=== PATIENT | female | born 2000 | race Caucasian/White ===

== ENCOUNTER 2023-02-02 15:13 | Outpatient (OUT) | payer OTHER, BC, SELFPAY ==
[2023-02-02 13:38] LABS: Glucose 92 mg/dL (74-106)
[2023-02-03 08:13] LABS: HIV Ab/p24 Ag Screen Non Reactive (Non Reactive)
[2023-02-03 09:12] LABS: HBsAg Screen Negative (Negative); HCV Antibody Non Reactive (Non Reactive); Hep B Core Ab, IgM Negative (Negative)
[2023-02-03 10:08] LABS: Rapid Plasma Reagin, Quant Non Reactive (NonRea<1:1)
[2023-02-04 12:07] LABS: Insulin 13.8 uIU/mL (2.6-24.9)
== END 2023-02-02 15:14 | disposition home or self-care (01) ==
LOC: LAB 02-12 15:13
PROVIDERS: PCP Family Medicine
DX: N92.0 Excessive and frequent menstruation with regular cycle (principal); E03.9 Hypothyroidism, unspecified; E55.9 Vitamin D deficiency, unspecified; Z11.9 Encounter for screening for infectious and parasitic diseases, unspecified
CPT/HCPCS: 36415; 82306; 82947; 83525; 84443; 86592; 86706; 86803; 87389

== ENCOUNTER 2023-02-22 00:46 | Emergency (ER) | payer OTHER, BC, SELFPAY ==
[2023-02-22 00:48] VITALS: BP 170/102; PULSE 109; RESP 22; TEMP 37.2; O2SAT 98; BMI 32.0
--- NOTE | 2023-02-22 00:57 | PC.NURSE ---
pt presents to ED c/o dry, hacking cough for the last 3 days. [place] and every year when they spray it she gets a bad cough and usually has to be put on steroids. has tried otc nyquil, dayquil, and mucinex with no relief. denies any other s/s
--- NOTE | 2023-02-22 01:18 | ED_ITS ---
HPI - URI/Sore Throat General Chief Complaint: Upper Respiratory Infection Stated Complaint: COUGH Time Seen by Provider: 02/22/23 01:18 Source: patient Limitations: no limitations History of Present Illness HPI Narrative: 22-year-old female, nonsmoker, who is not on control presents for evaluation of a nonproductive cough for the past 4-5 days. [place] [facility] and when they sprayed the [place] she gets this cough every year. It is nonproductive. She has not slept for the past 4 nights because of the cough. She has not had a fever. She denies any chest pain. She denies any dizziness or syncope. She has no lower extremity pain or swelling. She states that she typically gets steroids for this cough. She denies the possibility of because she has to do IVF to potentially get . She has no abdominal pain, no back pain. She has been using multiple [id number] cough and cold medications without clinical improvement. Related Data Home Medications Medication Instructions Recorded Confirmed metformin 500 mg tablet 2,000 mg PO DAILY 02/22/23 02/22/23 Allergies Allergy/AdvReac Type Severity Reaction Status Date / Time No Known Drug Allergies Allergy Verified 02/22/23 00:53 Review of Systems ROS Status of ROS 10 or more systems reviewed and unremarkable except as noted in history and below [facility] Social History Smoking status: Never smoker Exam Narrative Exam Narrative: Nurses note and vital signs reviewed and patient is not hypoxic. Her blood pressure is elevated at triage at 170/102 and she is tachycardic at 109. It was noted that she was coughing her blood pressure was being taken. General: Nontoxic female resting currently on the stretcher, she has episodes of bronchospastic coughing Skin: Warm, dry, no pallor noted. There is no rash noted. Head: Normocephalic, atraumatic Eye: Normal conjunctiva, no drainage, EOMI. PERRL Ears, Nose, Mouth, and Throat: oral mucosa is Mildly dry, no pharyngeal erythema or exudate noted Cardiovascular: Regular Rate and Rhythm, Tachycardic at triage at 109, no murmurs rubs or gallops Respiratory: Lungs are clear, patient can only speak 2-3 words without having a coughing jag, no respiratory distress besides coughing, no wheezing rhonchi or rales appreciated, no accessory muscle use Back: non-tender, no CVA tenderness bilaterally to percussion. GI: Normal bowel sounds, no tenderness to palpation, no masses appreciated. No rebound, guarding, or rigidity noted. Musculoskeletal: The patient has no evidence of calf tenderness, no pitting edema, symmetrical pulses noted bilaterally Neurological: A&O x4, normal speech Psychiatric: Cooperative Constitutional Vital Signs, click to edit/add: Last Vital Signs Temp 99 F 02/22/23 00:48 Pulse 109 H 02/22/23 00:48 Resp 22 02/22/23 00:48 BP 170/102 H 02/22/23 00:48 Pulse Ox 98 02/22/23 00:48 O2 Del Method Room Air 02/22/23 00:48 Course Vital Signs Vital signs: Vital Signs Temperature 99 F 02/22/23 00:48 Pulse Rate 109 H 02/22/23 00:48 Respiratory Rate 22 02/22/23 00:48 Blood Pressure 170/102 H 02/22/23 00:48 Pulse Oximetry 98 02/22/23 00:48 Oxygen Delivery Method Room Air 02/22/23 00:48 Temperature 99 F 02/22/23 00:48 Pulse Rate 109 H 02/22/23 00:48 Respiratory Rate 22 02/22/23 00:48 Blood Pressure 170/102 H 02/22/23 00:48 Pulse Oximetry 98 02/22/23 00:48 Oxygen Delivery Method Room Air 02/22/23 00:48 MDM - URI/Sore Throat MDM Narrative Medical decision making narrative: Patient presents for evaluation of a cough likely related to the fact that she lives [place] [facility]. She states that every year when the [employer] [place] she gets a bad cough. She has not had a fever. She denies any chest pain. She states she has not slept for the past 4 days because she cannot stop coughing. She was given a dose of Solu-Medrol in the emergency department and a Zofran and will be given a Vicodin to take home to help her rest tonight. Her lungs are otherwise clear. She has no lower 70 pain or swelling and she has no chest pain. She does not smoke and she is not on control. She'll be discharged home with a prescription for Vicodin to use for the next several nights and a Medrol Dosepak. She was encouraged to drink plenty of fluids and return to emergency department for worsening symptoms or any concerns. Discharge Plan Discharge Chief Complaint: Upper Respiratory Infection Clinical Impression: Reactive airway disease with acute exacerbation Patient Disposition: Home, Self-Care Time of Disposition Decision: 01:21 Condition: Good Prescriptions / Home Meds: No Action metformin 500 mg tablet 2,000 mg PO DAILY Instructions: Reactive Airways Disease (ED) Stand Alone Forms: Portal Instructions Referrals: Kayce Pham MD [Primary Care Provider] - 1 week
[2023-02-22] MEDS: ONDANSETRON 4 MG RAPDIS TABLET SL (01:34)
[2023-02-22] MEDS: METHYLPREDNISOLONE SOD SUCC PF 125 MG/2 ML VIAL IM (01:34)
[2023-02-22 01:42] VITALS: BP 167/105; PULSE 91; O2SAT 97
== END 2023-02-22 01:44 | disposition home or self-care (01) ==
PROVIDERS: Emergency Provider Emergency Medicine; PCP Family Medicine
DX: J45.901 Unspecified asthma with (acute) exacerbation (principal)
CPT/HCPCS: 96372; 99284; J2930

== ENCOUNTER 2023-07-10 10:29 | Outpatient (OUT) | payer OTHER, BC, SELFPAY ==
[2023-07-10 13:12] LABS: Glucose 87 mg/dL (74-106); Thyroid Stimulating Hormone 1.525 uIU/mL (0.358-3.740)
[2023-07-11 04:10] LABS: Estradiol 49.4 pg/mL (.); FSH 6.6 mIU/mL (.); Prolactin 13.1 ng/mL (4.8-23.3); Testosterone 30 ng/dL (13-71)
[2023-07-11 05:10] LABS: Insulin 11.3 uIU/mL (2.6-24.9)
[2023-07-13 13:08] LABS: Anti-Mullerian Hormone (AMH) 5.47 ng/mL (.)
== END 2023-07-10 10:30 | disposition home or self-care (01) ==
LOC: LAB 10:33
PROVIDERS: PCP Family Medicine
DX: N92.0 Excessive and frequent menstruation with regular cycle (principal); E03.9 Hypothyroidism, unspecified; E55.9 Vitamin D deficiency, unspecified
CPT/HCPCS: 36415; 82306; 82397; 82670; 82947; 83001; 83525; 84146; 84403; 84443

== ENCOUNTER 2024-03-02 11:13 | Outpatient (OUT) | payer OTHER, BC, SELFPAY ==
[2024-03-02 12:33] LABS: HCG Quantitative 17632 mIU/mL
[2024-03-03 04:10] LABS: Progesterone 12.8 ng/mL (.)
== END 2024-03-02 11:14 | disposition home or self-care (01) ==
LOC: LAB 11:20
PROVIDERS: PCP Family Medicine
DX: O09.01 Supervision of pregnancy with history of infertility, first trimester (principal)
CPT/HCPCS: 36415; 84144; 84702

== ENCOUNTER 2024-03-27 09:24 | Outpatient (OUT) | payer OTHER, BC, SELFPAY ==
--- NOTE | 2024-03-27 09:25 | US_ITS ---
[address] [address] Patient Name: ANNA MARIO MRN: [id number] date: 2000 Sex: F Assigned Patient Location: [facility] Current Patient Location: Accession/Order Number: [id number] Exam Date: 03/27/2024 09:26 Report Date: 03/31/2024 04:16 At the request of: LUIS DOTY Procedure: US OB transvaginal EXAMINATION: US OB transvaginal HISTORY: Missed menses COMPARISON: No relevant comparison available. FINDINGS: GESTATIONAL SAC: Present and normal appearing. YOLK SAC: Present and normal appearing. POLE: Present and normal appearing. CARDIAC: Present. UTERUS: Normal size and appearance. OVARIES: Right: Normal. Left: Not seen. CERVIX: 3.3 cm in length and closed. CUL-DE-SAC: Normal. OTHER: None. AGE BY LMP: 10 weeks 1 day SARA BY LMP: 10/22/2024 AGE BY US CRL: 10 weeks 0 days SARA BY US CRL: 10/23/2024 US/US OB transvaginal IMPRESSION: 1. Single live intrauterine . Electronically authenticated by: LUCHO PADRON Date: 03/31/2024 04:16
--- OUTSIDE RECORDS SUMMARY | 2024-03-27 09:28 | XMS_ITS | CCD ---
Author Organization [facility] Care Team Providers Care Lithographic Photographer Name Role Phone LALITHA ., DR SMITH Admitting Unavailable LALITHA ., DR SMITH Attending Unavailable GRANT, DR AKILA Watson Primary Care Unavailable LALITHA ., DR SMITH Consulting Unavailable LALITHA ., DR SMITH Admitting Unavailable LALITHA ., DR SMITH Attending Unavailable RUDY, DR AKILA Watson Primary Care Unavailable ZULEIMA, DR CLEMENTINE Mayo Consulting Unavailable LALITHA ., DR SMITH Consulting Unavailable LALITHA ., DR SMITH Admitting Unavailable LALITHA ., DR SMITH Attending Unavailable LALITHA ., DR SMITH Consulting Unavailable RUDY, DR AKILA Watson Primary Care Unavailable NEREIDA, DR LUCHO Johnson Consulting Unavailable LALITHA ., DR SMITH Admitting Unavailable LALITHA ., DR SMITH Attending Unavailable LALITHA ., DR SMITH Consulting Unavailable GRANT, DR AKILA Watson Primary Care Unavailable LALITHA ., DR SMITH Admitting Unavailable LALITHA ., DR SMITH Attending Unavailable ZULEIMA, DR CLEMENTINE Mayo Consulting Unavailable RUDY, DR AKILA Watson Primary Care Unavailable LALITHA ., DR SMITH Consulting Unavailable LALITHA ., DR SMITH Admitting Unavailable LALITHA ., DR SMITH Attending Unavailable RUDY, DR AKILA Watson Primary Care Unavailable LALITHA ., DR SMITH Consulting Unavailable LALITHA ., DR SMITH Admitting Unavailable LALITHA ., DR SMITH Attending Unavailable GRANT, DR AKILA Watson Primary Care Unavailable LALITHA ., DR SMITH Consulting Unavailable LALITHA, LUIS Attending Unavailable JOHNNY FERNANDEZ Attending Unavailable Allergies Allergy Classification Reported Allergen(s) Allergy Type Date of Onset Reaction(s) Facility (2 sources) Latex Drug allergy (disorder) 08-23-2019 [facility] Repository (1 source) orange flavor Drug allergy (disorder) 08-23-2019 [facility] (1 source) Hurley - fruit 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 01-02-2024 anaphylaxis [facility] Medications Current Medications Medication Drug Class(es) Dates Sig (Normalized) Sig (Original) amoxicillin 875 mg / clavulanate 125 mg oral tablet (1 source) Penicillin-class Antibacterial Start: 01-02-2024 take 1 tablet by mouth twice daily Amoxicillin-Pot Clavulanate Active 1 TAB PO Twice daily 20 10 January 02, 2024 12:00am estradiol 2 mg oral tablet (1 source) Estrogen Start: 01-02-2024 take 2 mg by mouth once daily Estradiol Active 2 MG PO Daily January 02, 2024 12:00am labetalol hydrochloride 200 mg oral tablet (2 sources) beta-Adrenergic Kyle Start: 01-02-2024 take 100 mg by mouth twice daily Labetalol Active 100 MG PO Twice daily January 02, 2024 12:00am Start: 01-02-2024 take 200 mg by mouth once simon y Labetalol Active 200 MG PO Daily January 02, 2024 12:00am letrozole 2.5 mg oral tablet (1 source) Aromatase Inhibitor Start: 01-02-2024 take 2.5 mg by mouth once daily Letrozole Active 2.5 MG PO Daily January 02, 2024 12:00am norethindrone acetate 5 mg oral tablet (1 source) Start: 01-02-2024 take 5 mg by mouth once daily Norethindrone Acetate Active 5 MG PO Daily January 02, 2024 12:00am predniSONE 10 mg oral tablet (1 source) Start: 01-02-2024 take 10 mg by mouth twice daily Prednisone Active 10 MG PO Twice daily January 02, 2024 12:00am Progesterone (1 source) Progesterone Start: 01-02-2024 Progesterone Micronized Active 200 MG VAGINAL Daily January 02, 2024 12:00am QUEtiapine 50 mg oral tablet (1 source) Atypical Antipsychotic Start: 01-02-2024 take 50 mg by mouth once daily Quetiapine Active 50 MG PO Daily January 02, 2024 12:00am Problems Active Problems Problem Classification Problem Date Documented Da te Episodic/Chronic Female infertility (4 sources) Female infertility associated with anovulation; Translations: [FE INFERTILITY ASSOC W/ANOVULATION] Onset: 07-12-2022 Chronic Other endocrine disorders (4 sources) Polycystic ovarian syndrome; Translations: [POLYCYSTIC OVARIAN SYNDROME] Onset: 04-04-2022 Chronic Thyroid disorders (1 source) Nontoxic single thyroid nodule; Translations: [NONTOXIC SINGLE THYROID NODULE] Onset: 04-08-2022 Chronic Past or Other Problems Problem Classification Problem Date Documented Da te Episodic/Chronic Contraceptive and procreative management (4 sources) Encounter for other procreative management; Translations: [ENC OTHER PROCREATIVE MANAGEMENT] Onset: 07-26-2022 Episodic Ovarian cyst (4 sources) Other ovarian cyst, left side; Translations: [OTHER OVARIAN CYST LEFT SIDE] Onset: 05-17-2022 Episodic Results Test Name Value Interpretation Reference Range Facility PROGESTERONEon 07-27-2022 Progesterone 26.9 ng/mL Normal [facility] Comment on above: Result Comment: Foll icular phase 0.1 - 0.9 Luteal phase 1.8 - 23.9 Ovulation phase 0.1 - 12.0 First trimester 11.0 - 44.3 Second trimester 25.4 - 83.3 Third trimester 58.7 - 214.0 Postmenopausal 0.0 - 0.1 Performed By: #### P ROGES #### [facility] [address] [address] [address] Ryan Francisco PREG QUANT HCGon 07-12-2022 HCG QUANT <1 Normal [facility] Comment on above: Performed By: #### P REGQNT #### [facility] [address] [address] [address] Ryan Francsico HCG RANGE SEE BELOW Normal [facility] Comment on above: Result Comment: 5-50 0.2-1 WEEK 50-500 1-2 WEEKS 100-5,000 2-3 WEEKS 500-10,000 3-4 WEEKS 1,000-50,000 4-5 WEEKS 10,000-100,000 5-6 WEEKS 15,000-200,000 6-8 WEEKS 10,000-100,000 2-3 MONTHS Performed By: #### P REGQNT #### [facility] [address] [address] [address] Ryan Francisco XR HYSTEROSALPINGO EXPon XR HYSTEROSALPINGO EXP EXAMINATION: XR HYSTEROSALPINGO EXP HISTORY: Female infertility associated with anovulation COMPARISON: No relevant comparison available. TECHNIQUE: Informed consent was obtained. A sterile vaginal speculum was introduced and, following cleansing of the cervix, a balloon-tipped catheter was inserted into the endometrial cavity. The procedure was then completed in the usual manner with water-soluble contrast. Standard level fluoroscopic mode of operation utilized. FINDINGS: FALLOPIAN TUBES: Patent fallopian tubes bilaterally. ENDOMETRIAL CAVITY: No scarring, filling defects, or dilatation. OTHER: Negative. IMPRESSION: Normal exam Electronically authenticated by: CLEMENTINE DEWEY Date: 2022-07-12 12:34 Normal [facility] PROGESTERONEon 06-29-2022 Progesterone 4.6 ng/mL Normal [facility] Comment on above: Result Comment: Foll icular phase 0.1 - 0.9 Luteal phase 1.8 - 23.9 Ovulation phase 0.1 - 12.0 First trimester 11.0 - 44.3 Second trimester 25.4 - 83.3 Third trimester 58.7 - 214.0 Postmenopausal 0.0 - 0.1 Performed By: #### P BRETT #### [facility] [address] [place] [address] Dr. Ryan Francisco PROGESTERONEon 06-01-2022 Progesterone 18.9 ng/mL Normal [facility] Comment on above: Result Comment: Foll icular phase 0.1 - 0.9 Luteal phase 1.8 - 23.9 Ovulation phase 0.1 - 12.0 First trimester 11.0 - 44.3 Second trimester 25.4 - 83.3 Third trimester 58.7 - 214.0 Postmenopausal 0.0 - 0.1 Performed By: #### P BRETT #### [facility] [address] [place] [address] Dr. Ryna Francisco US PELVIS AND TRANSVAGon US PELVIS AND TRANSVAG EXAMINATION: US PELVIS AND TRANSVAG HISTORY: Cyst of left ovary COMPARISON: No relevant comparison available. FINDINGS: The uterus is normal in size, contour and echotexture measuring 7.9 x 4.5 x 3.4 cm. No focal myometrial mass. Anteverted. Endometrium measures 7 mm, normal The right ovary measures 4.3 x 3.0 x 2.6 cm. Normal color and Doppler flow. Multiple follicles measuring up to 1.3 cm The left ovary measures 3.8 x 2.7 x 1.8 cm. Normal color and Doppler flow. Multiple follicles measuring up to 1.0 cm IMPRESSION: Multiple bilateral ovarian follicles, consider polycystic ovarian syndrome Electronically authenticated by: CLEMENTINE DEWEY Date: 2022-05-17 17:25 Normal [facility] PROGESTERONEon 04-29-2022 Progesterone 5.1 ng/mL Normal [facility] Comment on above: Result Comment: Foll icular phase 0.1 - 0.9 Luteal phase 1.8 - 23.9 Ovulation phase 0.1 - 12.0 First trimester 11.0 - 44.3 Second trimester 25.4 - 83.3 Third trimester 58.7 - 214.0 Postmenopausal 0.0 - 0.1 Performed By: #### P BRETT ####[facility] [id number] [place], [place] [address]Mw. Ryan Francisco ANTI-MULLERIAN HORMONEon Anti-Mullerian Hormone (AMH) 6.09 ng/mL Normal [facility] Comment on above: Result Comment: For assays employing antibodies, the possibility exists for interference by heterophile antibodies in the samples.1 1.Steffen Peguero. Interferences in Immunoassays - still a threat. Clin. Chem. 2000; 46: 4190-8517. This test was developed and its performance characteristics determined by [employer]. It has not been cleared or approved by the Food and Drug Administration. Reference Range: Females 20 - 25y: 1.23 - 11.51 Median 4.70 AMH concentrations of >= 1.06 ng/mL is correlated with a better response to ovarian stimulation, produced more retrievable oocytes and higher odds of live according to Herber et al. Fertility and Sterility. 2010: 94:3614-7767. The current AMH test method correlates with the study method with a slope of 0.94. Females at risk of ovarian hyperstimulation syndrome or polycystic ovarian syndrome (PCOS) may exhibit elevated serum AMH concentrations. AMH levels from PCOS patients may be 2 to 5 fold higher than age-appropriate reference interval values. Granulosa cell tumors of the ovary may secrete AMH along with other tumor markers. Elevated AMH is not specific for malignancy, and the assay should not be used exclusively to diagnose or exclude an AMH-secreting ovarian tumor. Performed By: #### A JARREDORE #### [facility] [address] [address] [address] Ryan Francisco FSHon 04-05-2022 FSH 3.6 mIU/mL Normal [facility] Comment on above: Result Comment: Adul t Female: Follicular phase 3.5 - 12.5 Ovulation phase 4.7 - 21.5 Luteal phase 1.7 - 7.7 Postmenopausal 25.8 - 134.8 Performed By: #### L BCFS #### [facility] [address] [address] [address] Ryan Francisco LUTEINIZING HORMONE (LH)on 0 04-05-2022 LH 6.8 mIU/mL Normal [facility] Comment on above: Result Comment: Adul t Female: Follicular phase 2.4 - 12.6 Ovulation phase 14.0 - 95.6 Luteal phase 1.0 - 11.4 Postmenopausal 7.7 - 58.5 Performed By: #### L BCL ####[facility] [id number] [address]. Ryan Francisco CBC AUTO DIFFon 04-04-2022 BASO # 0.0 103/ul Normal 0.0-0.1 [facility] Comment on above: Performed By: #### C BC #### [facility] [address] [place] [address] Dr. Ryan Francisco Basophils/100 WBC (Bld) 0.3 % Normal 0.2-2.0 [facility] Comment on above: Performed By: #### C BC #### [facility] [address] [place] [address] Dr. Ryan Francisco EO # 0.1 103/ul Normal 0.0-0.7 [facility] Comment on above: Performed By: #### C BC #### [facility] [address] [address] [address] Ryan Francisco Eosinophils/100 WBC (Bld) 1.7 % Normal 0.9-7.0 [facility] Comment on above: Performed By: #### C BC #### [facility] [address] [place] [address] Dr. Ryan Francisco Erythrocyte distribution width (RBC) [Ratio] 12.7 % Normal 11.0-15.0 [facility] Comment on above: Performed By: #### C BC #### [facility] [address] [place] [address] Dr. Ryan Francisco Hematocrit (Bld) [Volume fraction] 39.7 % Normal 36.0-48.0 [facility] Comment on above: Performed By: #### C BC #### [facility] [address] [place] [address] Dr. Ryan Francisco Hemoglobin (Bld) [Mass/Vol] 13.4 g/dL Normal 12.0-16.0 [facility] Comment on above: Performed By: #### C BC #### [facility] [address] [place] [address] Dr. Ryan Francisco IG # 0.03 10e3/ul Normal 0.00-0.03 [facility] Comment on above: Performed By: #### C BC #### [facility] [address] [place] [address] Dr. Ryan Francisco IG % 0.5 % Normal 0.0-0.5 [facility] Comment on above: Performed By: #### C BC #### [facility] [address] [place] [address] Dr. Ryan Francisco LYMPH # 1.6 103/ul Normal 1.2-3.8 [facility] Comment on above: Performed By: #### C BC #### [facility] [address] [place] [address] Dr. Ryan Francisco Lymphocytes/100 WBC (Bld) 27.1 % Normal 20.5-60.0 [facility] Comment on above: Performed By: #### C BC #### [facility] [address] [place] [address] Dr. Ryan Francisco MANUAL DIFF REQ NO Normal [facility] Comment on above: Performed By: #### C BC #### [facility] [address] [place] [address] Dr. Ryan Francisco MCH (RBC) [Entitic mass] 29.6 pg Normal 26.7-34.0 [facility] Comment on above: Performed By: #### C BC #### [facility] [address] [place] [address] Dr. Ryan Francisco MCHC (RBC) [Mass/Vol] 33.8 g/dL Normal 29.9-35.2 [facility] Comment on above: Performed By: #### C BC #### [facility] [address] [place] [address] Dr. Ryan Francisco MCV (RBC) [Entitic vol] 87.6 fL Normal 81.0-99.0 [facility] Comment on above: Performed By: #### C BC #### [facility] [address] [place] [address] Dr. Ryan Francisco MONO # 0.4 103/ul Normal 0.3-0.8 [facility] Comment on above: Performed By: #### C BC #### [facility] [address] [place] [address] Dr. Ryan Francisco Monocytes/100 WBC (Bld) 6.7 % Normal 1.7-12.0 [facility] Comment on above: Performed By: #### C BC #### [facility] [address] [place] [address] Dr. Ryan Francisco NEUT # 3.7 103/ul Normal 1.4-6.5 [facility] Comment on above: Performed By: #### C BC #### [facility] [address] [place] [address] Dr. Ryan Francisco Neutrophils/100 WBC (Bld) 63.7 % Normal 43.0-75.0 [facility] Comment on above: Performed By: #### C BC #### [facility] [address] [place] [address] Dr. Ryan Francisco Platelet mean volume (Bld) [Entitic vol] 9.9 fL Normal 9.5-13.5 [facility] Comment on above: Performed By: #### C BC #### [facility] [address] [place] [address] Dr. Ryan Francisco PLT 421 103/ul Normal 150-450 [facility] Comment on above: Performed By: #### C BC #### [facility] [address] [address] [address] Ryan Francisco RBC 4.53 106/ul Normal 4.20-5.40 [facility] Comment on above: Performed By: #### C BC #### [facility] [id number] Ryan Francisco WBC 5.8 103/ul Normal 4.0-11.0 [facility] Comment on above: Performed By: #### C BC #### [facility] [id number] Ryan Francisco FREE T4on 04-04-2022 Free T4 [Mass/Vol] 0.99 ng/dL Normal 0.76-1.46 [facility] Comment on above: Performed By: #### F T4 #### [facility] [address] [address] [address] Ryan Francisco TSHon 04-04-2022 TSH 3.086 uIU/mL Normal 0.358-3.740 [facility] Comment on above: Performed By: #### T SH ####[facility] [id number] [id number] Ryan Francisco US PELVIS AND TRANSVAGon US PELVIS AND TRANSVAG EXAMINATION: US PELVIS AND TRANSVAG HISTORY: Polycystic ovary syndrome COMPARISON: No relevant comparison available. TECHNIQUE: Transabdominal and transvaginal sonographic examination. FINDINGS: UTERUS: Normal size and appearance. Uterus size: 7.0 x 4.4 x 4.7 cm ENDOMETRIUM: Normal homogeneous appearance. Endometrial thickness: 12 mm RIGHT OVARY: Contains several small peripherally located follicles of similar size. Duplex Doppler demonstrates normal waveform and flow; resistive index 0.5. Ovary size: 3.1 x 2.7 x 2.2 cm LEFT OVARY: Contains several small peripherally located follicles of similar size, a 1.9 cm heterogeneous area/complex cyst. Duplex Doppler demonstrates normal waveform and flow; resistive index 0.5. Ovary size: 4.3 x 2.0 x 3.4 cm CUL-DE-SAC: Unremarkable. No significant free fluid. BLADDER: Unremarkable. OTHER: None. IMPRESSION: 1. Both ovaries contain multiple similar sized peripherally located follicles which can be seen with polycystic ovarian syndrome. 2. Left ovary contains a complex 1.9 cm cyst versus mass. Consider follow-up ultrasound evaluation in 6 weeks to document regression. Electronically authenticated by: LUCHOPOOL PADRON Date: 2022-04-04 16:38 Normal [facility] Auth for Release of Medical Recordson 12-20-2021 Auth for Release of Medical Records [id number]. 00CD:127 Normal [facility] Coding Summary.on 08-22-2021 Coding Summary. CD:[id number] G h0bWw+PGhlYWQ+XG0DGRC yH64xhGYobL3GP3bGMS8H UBOMSDPEHX6BHP7pnRT2R VczU2JospSm GzwbrTBsTF80XGn1APK9k HyfIOkyiB7bqDJhI0f4Uf UnHF63pY96ZNosOLMbYiM 3LjZpbjsgbWFy D3yiRePskEHjJos+PHRhY mxlIHdpZHRoPScxMDAlJy FpoQgmEN8gIs4eSSFyEXH vbGxhcHNlOiBj a8rvTUSjNUsnKI5nuJlpL 3NrcJK2AXLdz4z2Ks68mC I+DOYnYBB7xGclHPnum40 5IuEyz5jdXWO8 sDFeBYxnOFY2Q24ao8Q8J SEsMDVcGTJ5hGZ1pB8dzE wjjzlxO7FbqGMtDcK0IWZ 0pPIrmE6whXvw eoaoeA7eIfo+S79ZFX1HQ HZPND3JCzg9J6PyKzeenI I+NR84OQMtSW68cFSkhLL vb2uuaIc0WuIt BLBjNJH9bKytQKdit7NwY FXhU84zmOCnn6Q5MVCzhL ceiIGcJnSqsAI3pD0aLZx vxjjds1fnhqqj Regkl9vyyg59kD86M69uJ TyaFYUtEFO7FRAdTPAqgB ttnh1yvI2kOh2+QPopg9u ls1mheNf4KbZu POOkhvGotZttIUC4v0OyM p78P8FbeTywt8UqHjn4of 76tWPcr5Y4dFK8TPpdUEV wvG5fRUfiEgY5 BNWwMtJxqR81oXSbWNkiK e2qeAoywYybDM7bDCFqdg lvKHDxlI1bSCGtvPEqoBf gMH0qWHTagsaw k981ZcOdDXW6FPHmnMKsQ 2PjrB1dMfYnIWUtHPKoR5 ZcfFPkFBvuZ405SVytYwY 1XPNzhzXiR3Op EAXmqWwtCrY2y6K1Al4Al 6TbkkveMZL1IFoyHRVlDf E5BgCmHfD3M4FuRaq6BKS hpFhdGA2mR2Lc ZENaqbxncmbijWD2CXUqZ FGmyK06yTMyZFvxBv8au6 E0o209NJRbXAWkaN23Ha5 udDogMTBwdCBU rM9zocoei4ewojrtWxRzC VPjDAe2MMg6DCLkbPytRk StWTG6PoK1CJV1lZYkaG4 bxJwaqqzrdJ1r Oyc+O22vwT8jSRH9WIE5p mgxOYHkbbAmBA72MU14G0 RyPjwvdGFibGU+PGRpdiB qlJerJG0aGfBi a4eqs3FmKMzlI5MpDANeV FisBmc4YCLyCXI7bGO4hP 9nSOEkIRvka8P2mJM7A3B dksLurn6xw8cl NTZzBXgiJ18muBHml3N4E LDioRB1TPSheWrkZyYtaT 93Oyc+JNRbmUfzf0MxWpx yc7wkx7lpiBy8 NzDfLROokqDeeLjdREL3m 8IiNv16E32eNIzlJPRyTZ LmAMOqZYFsaRxizd4cvR1 wIi8+PGNvbCB3 zSZ5yC7mEYMdSiP1KHlxA 210GhVtaVNbYoegi7cys2 raxDg0OcAzRYRlgtOhsHx sSBQ5s0OlSs70 T08kGPywDLBeMNRaCVPhF UQkkIvaig6euA5dGf2+PC 0yz0jjow88pY61fZX+PHR cMDV8lDfzDIxi FULrnY4nMBsrIuF1XYWdE tVwcA99iXLrUVuhWg5rkF okcCkbZJ7qFGJwhbczk81 4AwSei5qiCJBm rWVwIUrsCFI1Y75fl2A0U KIqRSMpFMP7wPC2qI7ovW lnbjogbGVmdDsgdmVydGl lVQsuEZyxT203 IHRvcDsnPlBhdGllbnQgT kMxXGp8C6EkFhj2HBOzlM tlFP6tnWZwAZufMv1lvId nqIlpBA8oXZOv xafbx894FiWiw3ruWPWzk QSgMAaaVBJ9S06ty9G6BS JfCARoJQW8zOO3yT8ngNp nbjogbGVmdDsg sfNjtMqnBOiqIPyeD163A HRvcDsnPkJpcnRoIERhdG F5MO10MI06gGIsg9C2qKF 9A8RsUOKobpdp wjlfcUW2LIKfSWNvyV87W p2szVfoKi6gKYXcMXG1UK RjrYWpH6AryV3cFlWgCYB fJHWgC5FstGAt LJxmS329LRmeJaO3BRKtk sMpL7XrZYCvhUbyMcN0a1 Q5Qo9KN3R3FL21KT97zQJ ea0A0pKZ1O1Uf GQLxxukveecnjZC0SVDoF DMqhU33Ed1bjLnqTn1wXT EcOBF0TCXzeUPiI9FvlD7 yOiAjMDAwMDAw L2PttWEdIHxyG976HDpuM oF0ACPcoaOwR4NcLNQxgK tdQcF2d5E2Bi5WESr2PE5 4KW90bEVkm6U7 rNZ5I7UvKRKbpdwaqdcoj EJ9YPKnVMHbaE67Nq2eeY imGq6iLMVmZRV4OHDhfVL nA6VeiL4iCrSv OAGnPJOgI3WjtETmDFrsQ 191BKlaWeB7EZEedxPxG6 PqBWMimAytQvO0i6J2Iu2 QUDViNP23EAT8 jRU9OG06VG25E1VxKtaos GFibGU+PHRhYmxlIHdpZH RoPScxMDAlJyBzdHlsZT0 jVi0dWWFvLKTc iBjeuJXcZcAle0xgBMYuA PotCT5kmAxfP7CzpBX1DB Oxd7h6Vb89L78bI6VaeVE +XLAnuAD0mHG9 dS9aEuLuXaV5IMxoO509A kGvkDUoAnbdp5knh5ljbG p4VqV1FDGjqlVobXdyMYG 6i1ZhUy85K80n IHdpZHRoPSIxNSUiIHZhb Wqedm6fwL6vQm3+PGNvbC U5dYV9mN4cUrJpStQ0MTh nW671LxCmtIAt Lwtrz1uwq7luiLw3GcZiZ JSqavCsxTkvEUC9b3GeUx 54F1ExmYgeu4SwCpb2vc1 8tSFjx8N9gVI2 I6JwHYLdmdsbmLMoiHaiK U3rMTFkewroOAWvdG3gMA XdE9f1NsEgZtT3TUcbM5A badX4GFLnrFXy SYdwGLM7B11eg1G8VTEwB BFcUMN8uDT3iL7zqVsncs ogbGVmdDsgdmVydGljYWw xFAiyK111PSRv oFbwSONcvK4iLHUxvVYwn UdtMY4yXVHrbcigLpqFAO PrTGeYORUDJN12SB45oMS lm4X8pQL3F1Rw FVYrrqyjajqtrCT2SCRaR LJuvC10iCLsRSdiVv7mq0 L6p653NWLrBPSupQ64Xj3 udDogMTBwdCBU dW3rqlovr0uhhvfqMhNyK VWtHHs5AIl0SWHteEbjOe UxQDV8KtL5QYI4uKEewO0 wsPqumbdsaA1q Oyc+XPMmInklCZd0ABxrl GQ+WWFhYPZ8mGgkBFbvCE YytP3sVSNfS6s4RgVeFyC 1YRysJ9WmLPXp wqwnYp66jX9pJrFdRdJ9E PzuF1MnnnE8BMIcyLMeKG djZKA4F19my9Z2VXIpXHG tDLY1rNB3iS2t bGlnbjogbGVmdDsgdmVyd KhhDXizWGhfA981GEBqeI fzSpScOEkwDTYoWQ74XO8 5nWFhc5M5rUF0 M3LiABRumcuyyyyrtOT0Z HNrZYOtpX53nTFiHJstRo 5nc6W8q809RPUyEBAosK9 8Yt9ooRbyJEAi nCYHcM7rtpxnt6dyzothW vFtVOUjKVi0TZn5ZDMeyM mgXtPfIDJ0FsV3SSJ8vZQ aqB1cdBzhkrhp kS4uGni+SrGgSCarVW61X F45qYIlo4V6pRN4J3PmTE VqliglufmtlMR6GVPkEEV ckX67oYEhTMbp Tw9pv7N9s865AAQiPMDbg R30Rv9oeZvtIPNtnROJwZ 0nkdztq5xvnuipWaWlPEH kKBx5YOt2SRQw qCojEsVkRNP1FqK9WIE9e RMztI9tuOtvbhlqhC9nFj c+Z2Q3wHF4kVAdeTeohXU +XA79vk41P7Sj OqhuYnb0KZAaVGB6aFI3m O3aLCIfXLcge2E0rJM3U5 OqbqKcva8yf6qwPFZxTMy qG16bpASga1I9 RTMxvZJ2VHBzrOylVpHwg G93Oyc+DPLjlGdvr4IgJy sfq5yfe3tatRh0NyIdNAZ gdmFsaWduPSJ0 v6WwRa12O93dRHobYBYbM EWnRBSsUNDyvIhjsr4bwT 9wIi8+PYRsiLG1lDK4pU0 qXqZuRwZ1YStw Z518TcQypXSlQlkhr0jkf 1gwcYs4JoCiIAHejkDvqK uuEZO3z5NdGx53K6RzzTc rs1OiXjt9kv14 hLBcd5A7hOX7A0IySZRmv dtbtMFnnIpnTL4rCIKbxq ciCLInhI8fCJTwQ8a2VvC kSrR0KNufK4Ac ufN9GDUptAUzIKPhmEZYi B3syvtcu9omcjqeXbBpDF LvHKb4QQz4AMJwmZglNcY dLYK3FuM1PWG0 jHZvyG8ejKskhaqwwG0eM yc+QUs8p0vizJUpBI8fcB B8MZ81MI37kSJsi3S8sWU 4J0ZkXMLaaiqw nglzjDK7EUSpVIGkuZ42S g0ygKfnMy2nQERdBBG9EO RegTLsT3JytA5iAjUcQAM qVSHvX8EvzNMl GSyhQ068MKjqAgT4DSLvr hKvH3DcFUTpwDknAzW5p3 C4Xx0YLN59JY51OG62cMM ys1I7jSC3A0Zn GYNdmjggmgnhvBN1DKQdX SLglL66Hm0lwSwoPx6dEV EvTXM6DOFbdJOxN1PjjE4 yOiAjMDAwMDAw Z9BoiJNhGPjtB963TYgtD mT8HMFmdeQlO9BvJEOrmZ lpOlF6j7D7Jp0GXb78TW2 3UB31iJWxb6V3 dPD6X5FwQNTsunhhkwoen UF0EUXkXJGshO96Aj5htA osSz3qBGHzNGL2YYDtlKM yX9GfbK0wPcPd AVCmKWRwW7RinGYwBZmaA 749YBinHrK2HWOisrUfC3 RgPVQdtXkjJpW0m7R2Lo8 HRPqeglf7L5Nw PjwvdHI+AO66XXPcID91p MEagDTxk9vcbVr1SfFbMA CxRGO8yCpvSJvvx7HpMLD mB92kpQRvz7W9 IGNv (more content not included)... Normal [facility] Coding Summary. CD:[id number] G h0bWw+PGhlYWQ+RA3SZTH dS63wjPYbuR8NK6dDZH0B HMPKTDUGER7ZCA4bvZH1Z RmbW2AhiyZk DxuxuBJmAD16EVz5DLU9p DnlXAdtoZ4qsMQwT7v0Bx LnAZ33mD82ZFcrCPNkDcA 3LjZpbjsgbWFy P4toRqLpqDCkWin+PHRhY mxlIHdpZHRoPScxMDAlJy ZxeYhnGI5pTm3tFEQiQMO vbGxhcHNlOiBj m4msOWEiRWxhAI5mbPizW 2VrxSB9JOJtp9o5Jn90sV I+JOFmZWV9hYeyGDjcu69 9LvJtj4mrFID2 fCQhARmrRXE2O08bs8T1O FTePVZtZZI9tQS1vP9lgT hojsgjC9LqrMOwQgM6OKW 5xITfdY5dmRuw abacvH8pVlj+U35NYF8YZ BKFHO7PKoq1D3BbBkvqwR I+WJ01QEDtXM13mKMlmBN ea6epkRv8JgKh TRFhIJZ5xCzlMHysx7FwU COnP66zfFPfr9M7MQXotT fbmXNpLfDrzVW3pD2tKZh ljpvpr1afufrg Pxfmb1zxgl25yG62H37wP FdhQXHzYUX6PSQxXLYycI htol1hhH1nNi3+ULqbo0p nc1ltgKf6NrQj NPMdhnCufBaaBXA6b0HoA i82F2HtyJpdq9OyVjk8bw 57iCEti9P5hTX3JIxzYSH djB8aIOxuJzW6 HWDfAxOrgG19pKKbMEqmY q1niVsywPzqMZ9pJCSpjo xpFWXsgC8oFATebVNguZs iUH8rTXKtglyz e449VrTgPYR4UUViuOHeJ 1VyiF9tAtYjVXHfTZYsX4 PnlVCsIDeyQ298PJojOfF 8FUBsstEjL7Mq UZJcnCjxCwO8b5N3Tj2Md 2KehuekAYA2PKumOOBxVg R5KrEvVsY8A7CiVyo6MUL nhUawMX7aF4Su DTKnpmrrzksfqOX5KENvC KTtsU39eGPrLYnmZn6fu5 U6m844MCFkUBBccY19Lf2 udDogMTBwdCBU hP8ibkict7fzbvzzMrLpK DGvCXb1QYd1CELgfOedJm AlVRJ7WtV5LBV7tJZeaC4 xyHbbkrlsqH8f Oyc+F94dvY2tVNA4DCY3t vuoIFDptiDpCR80AD24J2 RyPjwvdGFibGU+PGRpdiB yvIgqYS0gNqGy h7ixd2JeTXxpX6RmXZHaC VigEif8EWKrQPF5nZJ1wD 1rYRJcDXpdy3S9vMF0C1N oysPhzv0oi5ge IANhYPsdV69enLIlk7G1Y DCgtGH9GJWnzUrxZxBdtR 93Oyc+ETDdyKtxp7ChNfj vr6xje6uezAz1 ZzPpHPGftlVetMziOOR5u 2MqQp95G70hZOqzLOHbLX NbWKNtVYJkcRqdgb6ljJ2 wIi8+PGNvbCB3 nNH1fA4yCOUlPfJ9YTdnS 726EhJayDYjTgbxh3epa3 odnKc3PnTxWYSgibAiaCn oWQL9f2RrVj87 Q61bZJsoVQXiMQJwBOOaP UWggWyayo2iqH1mQb6+PC [id number]+PHR bGTL7qXquAAzr VHJqhW0pSBdhKiX8SNUzD uXkmR04mMZsNJprRg5ugW tliFceXY2dXPKezsfzd23 1OoDzx4loDTXs aQNtJPkiINH9F08yu5O5I KTjJPWjFIQ4bWD1eB7luY lnbjogbGVmdDsgdmVydGl aTJqjIWbaC058 IHRvcDsnPlBhdGllbnQgT uLjCQi4T6PjBsy4ERCbrZ ekTK3koSVaJJzkTy7slUi pvZkeVC1dMOGq npkqb658AhOox6wuCEQrn BVvFEliLOW6E09wc9G5UL NnQCArUCP9kJC5dU1skWr nbjogbGVmdDsg hiEwyZutUFqcMBjyS881D HRvcDsnPkJpcnRoIERhdG U4SM72QO07kQYva0U5uQW 5C5RmKNTwwkrf pxwmlHR9FDKrRNLxwY52C b6uhSsgKb5tHMYiZHP9PH XawPPcC4BklI2eIlMcPSR sUCVwH5HfpMDk OBqoV525YLjcIgO1GURbr zGiV6UjBKFfmPzvNmD9l7 D4Op6XW0B3UU80TG78uLK cd3S8wIR3H8Ft FCWcoswckqznoTV0NFZsR KSwkV55To3tbJytQp1zUE WvTOE4BMDfcLEoW1RpgQ6 yOiAjMDAwMDAw N6VgnSAcQWfpX704HXggX eG1FASwxqHqK5RqYHDntL vdYoW1n9I1Mn3TNZb9WL5 9LU28kYUrk8J1 jZT4N0GbAEHyfccfvqaez NK3XYIhXTEchK22Xm7evS reFd9oHTFzKNR7JNQcbBJ pA3YrsI8kPqTk MFSxJHNbK2DfqVAwZAhwN 022BMvyGqI7FEBghsDeD7 WhKFJsqLipNvV2s6D1Ns8 VYPIsMF15GMR9 lTE7IQ85BQ31O6KzNttcj GFibGU+PHRhYmxlIHdpZH RoPScxMDAlJyBzdHlsZT0 iMb7lZXQbVNZb dTpzwVYgKqWrb6ahHXTrH QexJB0ivQcqI1BnvQV1HZ Snb0o0Yt77D28iM1PjtJD +UPNntOO2uIJ4 jG9kQuXmZwQ4NLyeX931L uHlbHErRijnr6wum8fkqQ f3BvH4WHTssxMbcPjrQGY 1m9MyAt14U47o IHdpZHRoPSIxNSUiIHZhb Bssox5ptE0bXp7+PGNvbC H4pIG4kI1vEbGiZiS4JMq cK259OcQoiMRs Uwnaq6xdf6rxuLy2FnKzQ KFqzcXdgErdAXP7d9WdFs 23H4KnaIpoq0LiNts9op7 6rUTjt1K4tHR4 Q9TwDNJsnufccSXpqSitW P6lJGNvthsjLATthW8fVM ZpL6n7NfWgTfQ8JRdmB8O yczM2RUUmbOJn HZpuXOZ7I02or0O6IPUtI YAnHCL8yVU9lS2fmTypph ogbGVmdDsgdmVydGljYWw pXIusS764XNNu dXmbCNLysA0uXLIgfJBop QxuXB1uYPEccdnyBdkJOR EoVOqGXVEJFZ56LS58kEJ ks6Y3zEG3H2Oc VXIjlqrcsajnbBT1OVKuL JUhcB40kOTuEIpiVv4vi9 S0c996ECJdRSAdxL60Sb6 udDogMTBwdCBU jP8idvtrh6qbctikBcFkN XEmZHx6NIv3ADZsxRzlRs WlMQD2NlY1UIF8rLJahR7 teRiisklfwQ5s Oyc+IEKnOnphPWf8MBzse GQ+JZOeMXR2tDswUCpfDF WmoD9zZMXkL5l7MjPhVwW 5ETnnT8OxACVu yrghUi21tY0vAxNmIpN4Y WoxN6EpaiC5TOVbcLUlVZ bpKAS3K19si9Y2QMMqWLB bMJK6gYV9rO0m bGlnbjogbGVmdDsgdmVyd ItzCTszETcwV004HYUukR xvChKgMEcjOEVnOV43HS4 3xYEjb9I7tXJ7 J4ThMQUhfxcrsfmhsUZ7I DFyZMFovG66tNObBVviFp 6te9K5m290MEUtCPZybP4 9Hz3liJfvFTHe iBWSeR0rpmprb0xthrbpQ gMiEPEsEMn7VGi5MADvaA uyHgSiDMH8PgV6KUK2yJO jhW8dlPdplsxb mP5hCmr+HpAfEIpvVW23O T06eGIui3E6rUX2Q4OcVN BviummoppwsSJ1TFYyNAH dzK78oQOtLMww Sl2rv7L9m499PIQvADFgl O91Ai4mcJkkGZSutMPYsN 2wguikc4pyfksuPmUoYAJ lKYy3WAe3LCWn hFksYqTeXEC0GpB2UXX2b UHbyF8sqIwqnqjvoD8nZv c+ACZxDCVia1Nlb7EdUF1 5SA43C0SeIbij dGFibGU+PHRhYmxlIHdpZ HRoPScxMDAlJyBzdHlsZT 6eTc3xSGBbNOKxlCnzbZN vOjCga4yjUTDo RDaqPG1elApwP0DjbDG3P ZXtj0t5Lp17E44rC6PwbX A+SOMbjRA5kUV6xK0uUpV oCpD8TJqgL256 LyKhiGNkFpunp5fxc7fws Nd7McQpRQVbxmHiiBtgSS U4x1VyNa10S29kMKmeCOU oPSIyMCUiIHZh hPukvd6rlL7xBz0+PGNvb MF1vMM5wD0gIsZuLfE9AT ifM802FgDppBWyGlkyA27 sR0NkhEE+PHRy Oxc7DJDapUloAW8caTFeD LjuIc6xMXT1NnCaDtGhWS qgI2BbHROktzgwetqftPB 7MQKdVYUwmU18 Yd8rsTfiFn0rMUWyPIV7E OBzcMEzC7JzyI7lPxJcUO NyLTFaA3BibCAnCSczV95 5LVpaPcQ7FJSr iqSzT3NqDNCdtJecSoM5x 8W0Oh0YzSfgwBYlNS4eAm ArOBt7W3CfJbn0PUDeiCf rCB6miUEdIHdc Qr6fqIbxuIrgHU4aEDLfh vrve925RwNtj1ioTGQduE AuYKxsGNZ8B92yf5S6YBR oOXQdCAR3tWK6 nY2xfOgnqistmWFgfAvte tMlwFdxFPsdKEcvA949HV CepRgmSqGCGtg9R5ZoLhj 3LPJawVfaRL8k gMIjVLmiWf9sqKelgDhkU D2dIOOxxtfig628TgHkn6 tuZTZlnCXeXDucYMR5N68 ch3W4TFKxONSe YCO4pXS9eV0uhKvptwnom GVmdDsgdmVydGljYWwtYW uyP571VTWbbXyaXu9QTpt 4L1CvAye8UEDi gYrjYS1qvXMlQTqaIf4pz DzncWcxLD2kXEUyumgzs8 32HgYxv3pnZZOqbVOsPAc iPLO6Q45ss1G9 ESVfASWgQDM5yMD6wA2ju GlnbjogbGVmdDsgdmVydG pgHYwmVWwmD793CXNdxRc nPlBheWVyOjwv dGQ+DG86zs75D0TuQnrdF vo1AOCqJHB3wZV8kT7bOY ZcTCjed6B1gWR5Z9YgjiI imn1ea4sqBGFz ZTog (more content not included)... Normal [facility] PAP [id number] 08-15-2021 Cytology report Cyto stain Doc (Cvx/Vag) Note Invalid Interpretation Code [facility] Comment on above: Result Comment: TEST S RESULT FLAG UNITS REF RANGE LAB Clinician Provided Cytology Information Source.............Endocervix No. of containers..01 ThinPrep Vial DIAGNOSIS: 01 NEGATIVE FOR INTRAEPITHELIAL LESION OR MALIGNANCY. Specimen adequacy: 01 Satisfactory for evaluation. No endocervical component is identified. Performed by: 01 Sujey Engle Repair Department Supervisor (ASCP) . 01 Note: Note 01 The Pap smear is a screening test designed to aid in the detection of premalignant and malignant conditions of the uterine cervix. It is not a diagnostic procedure and should not be used as the sole means of detecting cervical cancer. Both false-positive and false-negative reports do occur. Test Methodology: Note 01 This liquid based ThinPrep(R) pap test was screened with the use of an image guided system. FLAG LEGEND: L-Low Normal,H-High Normal,LL-Alert Low,HH-Alert High <-Panic Low,>-Panic High,A-Abnormal,AA-Critical Abnormal Performed at: [address] [place] [address] Mar Rivera MD, Performed By: #### 1 [id number] #### [facility] [address] [place] [address] HPV 16+18+31+33+35+39+45 +51+52+56+58+59+66+6 8 DNA Probe+sig amp Ql (Cvx) Negative Invalid Interpretation Code Negative [facility] Comment on above: Result Comment: This nucleic acid amplification test detects fourteen high-risk HPV types (16,18,31,33,35,39,45,51,52,56,58,59,66,68) without differentiation. Performed at: [facility] [place] [id number] MD Nicole Manuel Performed at: =[address] [id number] MD Nicole Manuel Performed By: #### 1 [id number] #### [facility] [address] [place] [address] Insulin Lvlon 08-11-2021 Insulin Qn 24.3 u[IU]/mL Invalid Interpretation Code 2.6-24.9 [facility] Comment on above: Result Comment: Perf ormed at: [facility] [address] [id number] PhD Archie Jha Performed By: #### 1 [id number] #### [facility] [address] [place] [address] Consent for Treatmenton 07-29 Consent for Treatment [id number] .00CD:127 Normal [facility] Glu Fastingon 08-10-2021 Glucose [Mass/Vol] 95 mg/dL Normal 55-99 [facility] Comment on above: Performed By: #### 1 [id number] #### [facility] [address] [place] [address] Physician Orderon 08-10-2021 Physician Order [id number]# 1.00CD:127 Normal [facility] PAP [id number] 08-09-2021 Collection Technique BRUSH-SPATULA Normal [facility] Comment on above: Performed By: #### 1 [id number] #### [facility] [address] [place] [address] Gynecological Body Site ENDOCERVIX Normal [facility] Comment on above: Performed By: #### 1 [id number] #### [facility] [address] [place] [address] Physician Orderon 08-09-2021 Physician Order [id number] .00CD:127 Normal [facility] Gynecology Office/Clinic Not pratik 02-17-2019 Gynecology Office/Clinic Note Chief Complaint Pt had a pimple outside the vaginal opening that popped this morning. Pt states oozing green puss when it popped Pt is on her period Obstetric History History (0,0,0,0) No previous pregnancies history have been recorded HPI Staff Denies chest pain, shortness of breath, fever, chills, nausea, vomiting. States normal bowel and bladder function without hematochezia, diarrhea, constipation, dysuria or hematuria. No myalgias or arthralgias. No weakness or paresthesias. No new rashes or changing moles. states hat she had a pimple on the outside of her right side of the vaginal opening that she noted over 1 month ago, states she didnt squeeze i but used hot compresses and it went away. This month it has returned and she has used hot compresses, It enlarged and today it opened up this am draining purulent blood tinged fluid. Wants further evaluated, denies any fever chills, new sexual partner Also states that ice actually helped for a while to alleviate the pain 1. Labial abscess (N76.4: Abscess of vulva) Area appears to be a recurrent problem. Discussed with the patient the use of hot compresses and otc triple antibiotic cream Explained that it may return again. Currently to treat with each episode. Try to avoid shaving in the area return for annual or prn General exam: Constitutional: alert, oriented, in no acute distress, well hydrated, well developed, well nourished. Skin: normal color, no rashes, no lesions, no unusual bruising. Head: Atraumatic, Normocephalic, sclera anicteric, trachea midline, hearing grossly normal with conversational voice. Mouth: normal dentition Respiratory: No respiratory distress, Comfortable on room air. CV: no lower extremity edema Breast: Deferred Abdomen: Soft, nontender, nondistended, no guarding, no masses Pelvic: Vulva: normal in appearance, pubic hair is normal Santo stage, no lesions, no masses, right side near vaginal opening there is a thickened area that appears to be scarred beneath the surface.A small opening is noted. I am able to express a small amt of purulent bloody fluid Vagina:tampon in place Extremities: No deformities, no cyanosis Neuro: Normal sensation, Cranial Nerves II-XII grossly intact, gait normal Psyche: Pleasant, calm affect with conversation, mood appropriate, good eye contact Review of Systems PHQ Score Initial Depression Screen Score: 0 Physical Exam Vitals & Measurements HR: 104(Peripheral) RR: 24 BP: 132/86 HT: 158 cm WT: 77.4 kg BMI: 31 Assessment/Plan 1. Labial abscess (N76.4: Abscess of vulva) Follow-up No qualifying data available Problem List/Past Medical History Ongoing No qualifying data Historical No qualifying data Medications Sprintec oral tablet, 1 tab(s), Oral, Daily Allergies Latex (Swelling) Social History Sexual Sexually active: Yes., 02/17/2019 Tobacco Never (less than 100 in lifetime) Tobacco Use:. Never Smokeless Tobacco Use:., 02/17/2019 Family History Family history is negative Normal [facility] Comment on above: Result Comment: Elec tronically Signed By: Shamika ISAACS, Kaley Wilson\.br\Date and Time Signed: 02/17/19 12:09 EDT Gynecology Office/Clinic Note Chief Complaint Pt had a pimple outside the vaginal opening that popped this morning. Pt states oozing green puss when it popped Pt is on her period Obstetric History History (0,0,0,0) No previous pregnancies history have been recorded History of Present Illness states hat she had a pimple on the outside of her right side of the vaginal opening that she noted over 1 month ago, states she didnt squeeze i but used hot compresses and it went away. This month it has returned and she has used hot compresses, It enlarged and today it opened up this am draining purulent blood tinged fluid. Wants further evaluated, denies any fever chills, new sexual partner Also states that ice actually helped for a while to alleviate the pain Review of Systems PHQ Score Initial Depression Screen Score: 0 Denies chest pain, shortness of breath, fever, chills, nausea, vomiting. States normal bowel and bladder function without hematochezia, diarrhea, constipation, dysuria or hematuria. No myalgias or arthralgias. No weakness or paresthesias. No new rashes or changing moles. Physical Exam Vitals & Measurements HR: 104(Peripheral) RR: 24 BP: 132/86 HT: 158 cm WT: 77.4 kg BMI: 31 General exam: Constitutional: alert, oriented, in no acute distress, well hydrated, well developed, well nourished. Skin: normal color, no rashes, no lesions, no unusual bruising. Head: Atraumatic, Normocephalic, sclera anicteric, trachea midline, hearing grossly normal with conversational voice. Mouth: normal dentition Respiratory: No respiratory distress, Comfortable on room air. CV: no lower extremity edema Breast: Deferred Abdomen: Soft, nontender, nondistended, no guarding, no masses Pelvic: Vulva: normal in appearance, pubic hair is normal Santo stage, no lesions, no masses, right side near vaginal opening there is a thickened area that appears to be scarred beneath the surface.A small opening is noted. I am able to express a small amt of purulent bloody fluid Vagina:tampon in place Extremities: No deformities, no cyanosis Neuro: Normal sensation, Cranial Nerves II-XII grossly intact, gait normal Psyche: Pleasant, calm affect with conversation, mood appropriate, good eye contact Assessment/Plan 1. Labial abscess (N76.4: Abscess of vulva) Area appears to be a recurrent problem. Discussed with the patient the use of hot compresses and otc triple antibiotic cream Explained that it may return again. Currently to treat with each episode. Try to avoid shaving in the area return for annual or prn Follow-up No qualifying data available Problem List/Past Medical History Ongoing No qualifying data Historical No qualifying data Medications Sprintec oral tablet, 1 tab(s), Oral, Daily Allergies Latex (Swelling) Social History Sexual Sexually active: Yes., 02/17/2019 Tobacco Never (less than 100 in lifetime) Tobacco Use:. Never Smokeless Tobacco Use:., 02/17/2019 Family History Family history is negative Normal [facility] Comment on above: Result Comment: Elec tronically Signed By: Shamika ISAACS, Kaley Wilson\.david\Date and Time Signed: 02/17/19 12:09 EDT Vital Signs Date Time Vital Sign Value Performing Clinician Facility 01-02-2024 09:15-0400 Body height 157.48 cm [facility] 01-02-2024 09:15-0400 Body mass index (BMI) [Ratio] 33.9 kg/m2 [facility] 01-02-2024 09:150400 Body temperature 100.2 [degF] [facility] 01-02-2024 09:15-0400 Body weight 84.08 kg [facility] 01-02-2024 09:15-0400 Heart rate 115 /min [facility] 01-02-2024 09:15-0400 Respiratory rate 18 /min [facility] 01-02-2024 09:15-0400 SaO2% (BldA) [Mass fraction] 99 % [facility] Encounters Encounter Date Encounter Type Care Provider Facility Start: 01-02-2024 End: 01-02-2024 ambulatory JOHNNY FERNANDEZ Not Available Start: 01-02-2024 End: 01-02-2024 ambulatory [facility] Work Phone: Start: 01-02-2024 End: 01-02-2024 Patient encounter procedure [facility] Work Phone: Start: 11-27-2023 End: 11-27-2023 ambulatory LUIS DOTY Not Available Start: 07-26-2022 End: 07-27-[address] LUIS DOTY . Facility: Start: 07-12-2022 End: 07-12-[address] LUIS DOTY . Facility: Start: 06-28-2022 End: 06-29-[address] LUIS DOTY . Facility:[facility] Start: 05-31-2022 End: 06-27-[address] LUIS DOTY . Facility:[facility] Start: 05-17-2022 End: 05-18-[address] LUIS DOTY . Facility:[facility] Start: 04-28-2022 End: 04-29-[address] LUIS DOTY . Facility:[facility] Start: 04-04-2022 End: 04-05-[address] LUIS DOTY . Facility: Payers Date Payer Category Payer Unknown [id number] 2021 Unknown [id number] 1999 Unknown [id number] 2.16.84 [id number] 1999 Unknown [id number] 2.16.84 [id number] 1999 Unknown [id number] 2.16.84 [id number] 1999 Unknown [id number] 2.16.84 [id number] 1999 Unknown [id number] 2.16.84 [id number] 1999 Unknown [id number] 2.16.84 [id number] 1999 Unknown [id number] 2.16.84 [id number] 1999 Unknown [id number] 2.16.84 [id number] 1999 Unknown [id number] 2.16.84 [id number] 1959 Private Health Insurance [id number] 1960 Unknown [id number] Social History Date Type Detail Facility Tobacco smoking stat [facility] Unknown if ever smoked [facility] Work Phone: Start: 2000 Sex Assigned At Female F [facility] Evaluation note Note Date & Type Note Facility Evaluation note No assessment information availa ble [facility] Work Phone: Summary Purpose Family History No Family History Records Found Relationship Condition Age at Onset Recorded Date/T yosi family member Unknown Heart disease Unknown Advance Directives No Advanced Directives Records Found Advance Directive Response Recorded Date/ Time Advance Directives No January 01 9:07am Chief Complaint and Reason for Visit Chief Complaint Congestion Additional Source Comments INFORMATION SOURCE (unrecogn ized section and content) DATE CREATED AUTHOR 03/06/2019 [facility] DATE CREATED AUTHOR AUTHOR'S ORGANIZ ATION 12/21/2021 Blackwell Gigi [facility] DATE CREATED AUTHOR AUTHOR'S ORGANIZ ATION 12/01/2022 [facility] DATE CREATED AUTHOR AUTHOR'S ORGANIZ ATION 01/04/2024 [facility] [employer] Care Teams (unrecognized sec tion and content) Team Status: Active Member Role Status Dates Damon Stover DO Primary Care Provider Active Team Status: Inactive Member Role Status Dates Damon Stover , Primary Care Provider Active Start: January 02, 2024 End: January 02, 2024 Teresa Sanchez APRN Attending Provider Active S tart: January 02, 2024 End: January 02, 2024 Goals (unrecognized section and content) Goals may be documented in a n alternate section FOR RECORDS PERTAINING TO PATIENTS WHO ARE OR HAVE BEEN ENROLLED IN A CHEMICAL DEPENDENCY/SUBSTANCEABUSE PROGRAM, SOME INFORMATION MAY BE OMITTED. This clinical summary was aggregated from multiple sources. Caution should be exercised in using it in the provision of clinical care. This summary normalizes information from multiple sources, and as a consequence, information in this document may materially change the coding, format and clinical context of patient data. In addition, data may be omitted in some cases. CLINICAL DECISIONS SHOULD BE BASED ON THE PRIMARY CLINICAL RECORDS. [employer] provides no warranty or guarantee of the accuracy or completeness of information in this document.
== END 2024-03-27 09:25 | disposition home or self-care (01) ==
LOC: NOMS 09:24
PROVIDERS: PCP Family Medicine; Visit Provider Obstetrics & Gynecology
DX: Z34.91 Encounter for supervision of normal pregnancy, unspecified, first trimester (principal); Z3A.10 10 weeks gestation of pregnancy; N92.6 Irregular menstruation, unspecified
CPT/HCPCS: 76817

== ENCOUNTER 2024-04-08 13:10 | Outpatient (OUT) | payer OTHER, BC, SELFPAY ==
--- OUTSIDE RECORDS SUMMARY | 2024-04-08 13:31 | XMS_ITS | CCD ---
Author Organization 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 Repository (1 source) Dawson - fruit 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 01-02-2024 anaphylaxis [facility] Medications Current Medications Medication Drug Class(es) [...] Facility PROGESTERONEon 07-27-2022 Progesterone 26.9 ng/mL Normal [facility] Comment on above: Result Comment: Foll icular phase 0.1 - 0.9 Luteal phase 1.8 - 23.9 Ovulation phase 0.1 - 12.0 First trimester 11.0 - 44.3 Second trimester 25.4 - 83.3 Third trimester 58.7 - 214.0 Postmenopausal 0.0 - 0.1 Performed By: #### P ROGES #### [facility] [address] [address] [address] Ryan Francisco PREG QUANT HCGon 07-12-2022 HCG QUANT <1 Normal [facility] Comment on above: Performed By: #### P REGQNT #### [facility] [address] [address] [address] Ryan Francisco HCG RANGE SEE BELOW Normal [facility] Comment on above: Result Comment: 5-50 0.2-1 WEEK 50-500 1-2 WEEKS 100-5,000 2-3 WEEKS 500-10,000 3-4 WEEKS 1,000-50,000 4-5 WEEKS 10,000-100,000 5-6 WEEKS 15,000-200,000 6-8 WEEKS 10,000-100,000 2-3 MONTHS Performed By: #### P REGQNT #### [facility] [address] [address] [address] Ryan Francisco XR HYSTEROSALPINGO EXPon XR [...] by: CLEMENTINE DEWEY Date: 2022-07-12 12:34 Normal [facility] PROGESTERONEon 06-29-2022 Progesterone 4.6 ng/mL Normal [facility] Comment on above: Result Comment: Foll icular phase 0.1 - 0.9 Luteal phase 1.8 - 23.9 Ovulation phase 0.1 - 12.0 First trimester 11.0 - 44.3 Second trimester 25.4 - 83.3 Third trimester 58.7 - 214.0 Postmenopausal 0.0 - 0.1 Performed By: #### P BRETT #### [facility] [address] [place] [address] Dr. Ryan Francisco PROGESTERONEon 06-01-2022 Progesterone 18.9 ng/mL Normal [facility] Comment on above: Result Comment: Foll icular phase 0.1 - 0.9 Luteal phase 1.8 - 23.9 Ovulation phase 0.1 - 12.0 First trimester 11.0 - 44.3 Second trimester 25.4 - 83.3 Third trimester 58.7 - 214.0 Postmenopausal 0.0 - 0.1 Performed By: #### P BRETT #### [facility] [address] [place] [address] Dr. Ryan Francisco US PELVIS AND TRANSVAGon US [...] by: CLEMENTINE DEWEY Date: 2022-05-17 17:25 Normal [facility] PROGESTERONEon 04-29-2022 Progesterone 5.1 ng/mL Normal [facility] Comment on above: Result Comment: Foll icular phase 0.1 - 0.9 Luteal phase 1.8 - 23.9 Ovulation phase 0.1 - 12.0 First trimester 11.0 - 44.3 Second trimester 25.4 - 83.3 Third trimester 58.7 - 214.0 Postmenopausal 0.0 - 0.1 Performed By: #### P BRETT ####[facility] [address] [place], [place] [address]Bd. Ryan Francisco ANTI-MULLERIAN HORMONEon Anti-Mullerian Hormone (AMH) 6.09 ng/mL Normal [facility] Comment on above: Result Comment: For assays employing antibodies, the possibility exists for interference by heterophile antibodies in the samples.1 1.Steffen Peguero. Interferences in Immunoassays - still a threat. Clin. Chem. 2000; 46: 5839-8661. This test was developed and its performance characteristics determined by [employer]. It has not been cleared or approved by the Food and Drug Administration. Reference Range: Females 20 - 25y: 1.23 - 11.51 Median 4.70 AMH concentrations of >= 1.06 ng/mL is correlated with a better response to ovarian stimulation, produced more retrievable oocytes and higher odds of live according to Herber et al. Fertility and Sterility. 2010: 94:6746-7232. The current AMH test method correlates with [...] tumor. Performed By: #### A JARREDORE #### [facility] [address] [address] [address] Ryan Francisco FSHon 04-05-2022 FSH 3.6 mIU/mL Normal [facility] Comment on above: Result Comment: Adul t Female: Follicular phase 3.5 - 12.5 Ovulation phase 4.7 - 21.5 Luteal phase 1.7 - 7.7 Postmenopausal 25.8 - 134.8 Performed By: #### L BCFS #### [facility] [address] [address] [address] Ryan Francisco LUTEINIZING HORMONE (LH)on 0 04-05-2022 LH 6.8 mIU/mL Normal [facility] Comment on above: Result Comment: Adul t Female: Follicular phase 2.4 - 12.6 Ovulation phase 14.0 - 95.6 Luteal phase 1.0 - 11.4 Postmenopausal 7.7 - 58.5 Performed By: #### L BCL ####[facility] [address] [address]Dr. Ryan Francisco CBC AUTO DIFFon 04-04-2022 BASO # 0.0 103/ul Normal 0.0-0.1 [facility] Comment on above: Performed By: #### C BC #### [facility] [address] [place] [address] Dr. Ryan Francisco Basophils/100 WBC (Bld) 0.3 % Normal 0.2-2.0 [facility] Comment on above: Performed By: #### C BC #### [facility] [address] [place] [address] Dr. Ryan Francisco EO # 0.1 103/ul Normal 0.0-0.[address] [facility] Comment on above: Performed By: #### C BC #### [facility] [address] [address] [address] Ryan Francisco Eosinophils/100 WBC (Bld) 1.7 % Normal 0.9-7.0 [facility] Comment on above: Performed By: #### C BC #### [facility] [address] [place] [address] Dr. Ryan Francisco Erythrocyte distribution width (RBC) [Ratio] 12.7 % Normal 11.0-15.0 [facility] Comment on above: Performed By: #### C BC #### [facility] [address] [place] [address] Dr. Ryan Francisco Hematocrit (Bld) [Volume fraction] 39.7 % Normal 36.0-48.0 [facility] Comment on above: Performed By: #### C BC #### [facility] [address] [place] [address] Dr. Ryan Francisco Hemoglobin (Bld) [Mass/Vol] 13.4 g/dL Normal 12.0-16.[address] [facility] Comment on above: Performed By: #### C BC #### [facility] [address] [place] [address] Dr. Ryan Francisco IG # 0.03 10e3/ul Normal 0.00-0.03 [facility] Comment on above: Performed By: #### C BC #### [facility] [address] [place] [address] Dr. Ryan Francisco IG % 0.5 % Normal 0.0-0.5 [facility] Comment on above: Performed By: #### C BC #### [facility] [address] [place] [address] Dr. Ryan Francisco LYMPH # 1.6 103/ul Normal 1.2-3.[address] [facility] Comment on above: Performed By: #### C BC #### [facility] [address] [place] [address] Dr. Ryan Francisco Lymphocytes/100 WBC (Bld) 27.1 % Normal 20.5-60.[address] [facility] Comment on above: Performed By: #### C BC #### [facility] [address] [place] [address] Dr. Ryan Francisco MANUAL DIFF REQ NO Normal [facility] Comment on above: Performed By: #### C BC #### [facility] [address] [place] [address] Dr. Ryan Francisco MCH (RBC) [Entitic mass] 29.6 pg Normal 26.7-34.0 [facility] Comment on above: Performed By: #### C BC #### [facility] [address] [place] [address] Dr. Ryan Francisco MCHC (RBC) [Mass/Vol] 33.8 g/dL Normal 29.9-35.2 [facility] Comment on above: Performed By: #### C BC #### [facility] [address] [place] [address] Dr. Ryan Francisco MCV (RBC) [Entitic vol] 87.6 fL Normal 81.0-99.0 [facility] Comment on above: Performed By: #### C BC #### [facility] [address] [place] [address] Dr. Ryan Francisco MONO # 0.4 103/ul Normal 0.3-0.8 [facility] Comment on above: Performed By: #### C BC #### [facility] [address] [place] [address] Dr. Ryan Francisco Monocytes/100 WBC (Bld) 6.7 % Normal 1.7-12.0 [facility] Comment on above: Performed By: #### C BC #### [facility] [address] [place] [address] Dr. Ryan Francisco NEUT # 3.7 103/ul Normal 1.4-6.5 [facility] Comment on above: Performed By: #### C BC #### [facility] [address] [place] [address] Dr. Ryan Francisco Neutrophils/100 WBC (Bld) 63.7 % Normal 43.0-75.[address] [facility] Comment on above: Performed By: #### C BC #### [facility] [address] [place] [address] Dr. Ryan Francisco Platelet mean volume (Bld) [Entitic vol] 9.9 fL Normal 9.5-13.5 [facility] Comment on above: Performed By: #### C BC #### [facility] [address] [place] [address] Dr. Ryan Francisco PLT 421 103/ul Normal 150-450 [facility] Comment on above: Performed By: #### C BC #### [facility] [address] [address] [address] Ryan Francisco RBC 4.53 106/ul Normal 4.20-5.40 [facility] Comment on above: Performed By: #### C BC #### [facility] [address] [id number] Ryan Francisco WBC 5.8 103/ul Normal 4.0-11.0 [facility] Comment on above: Performed By: #### C BC #### [facility] [id number] Ryan Francisco FREE T4on 04-04-2022 Free T4 [Mass/Vol] 0.99 ng/dL Normal 0.76-1.46 [facility] Comment on above: Performed By: #### F T4 #### [facility] [address] [address] [address] Ryan Francisco TSHon 04-04-2022 TSH 3.086 uIU/mL Normal 0.358-3.740 [facility] Comment on above: Performed By: #### T SH ####[facility] [address] [id number] Ryan Francisco US PELVIS AND TRANSVAGon US [...] by: LUCHOPOOL PADRON Date: 2022-04-04 16:38 Normal [facility] Auth for Release of Medical Recordson 12-20-2021 Auth for Release of Medical Records [id number]#1. 00CD:127 Normal [facility] Coding Summary.on 08-22-2021 Coding Summary. CD:[id number] G h0bWw+PGhlYWQ+RM8JDGW mI09toPYedW7EP8sAJV8T GXKEGZLWYZ8BUM3svXD3R CisT2TrnpTv FzmphBMlYI62HTc4MKU8o UplEKzhkY1epLTyY9s2Sc EfXI69qS93MKvaXSPpDlH 3LjZpbjsgbWFy V0upAjHjzBHkIzd+PHRhY mxlIHdpZHRoPScxMDAlJy PboDelZA3fIb6fYTYcFTK vbGxhcHNlOiBj q6vgOCWmWHynWH0hvMpwA 6WpsXF0TYFck3v4Vo88yT I+XWTfHCX4vPlwNCyep22 2XdMjg6aqWDD2 bWCyXAdqHFT1N11ct3U0L HEuZRAaHCU0pPB9bC3hiG hxgrmsA8KczMCiMpS1MHI 3wXRrdH8koGkk qeyupQ8nLqn+I48QAM1CV BOHNP8EMqu7S3YpApbvfS I+GT54AQDqJE54gBJenXG zt9whbZc7QcKk RCWkFHQ7mCwuWQfet8AlW KDwF51zbODdm6P1ECWvhP ixtQXtZcOpzDK8uL1zYSe faqlrj5nvhrlu Cobmv6uygt98eZ44X50tN ZkdYDTlMLE7GEDkLTJioB rwjz9nuQ5oJm9+CAbyp3q xl4vrfBf3GnZk HMPlinXjmMytYTX5x7UpQ k48Z7LuhPdou0AaZmm1qt 74pWOrh5V6cJL3DOzfDKX ysO8nFGgbErC3 EKVlAxLbvZ67tEJzMGazC k6fzSiqkTjgSZ4yEQVcfg qjZJOolN8uMFFjcVGpqSx nNV1rTTWtldcj b417VwUoFOR9DLJnhGXbP 7SllN0cQpMoRPPeSFXfF0 FsrMPiSTnqG391FTjrWpB 7ONLesuKrR6Gc XROrmYxfDaF9c0U1Yt8Cr 7SmgytpZIS3DDziMUPsSy E5QcIcYtJ5Y3RlHtp9NHK clJnpGE0bO2Bm PHZqnntvbajzfMX1EPDfZ YDinY64hWGuQWceJa8xl0 O9e259KTGgYRSciY95Hg1 udDogMTBwdCBU qT0bjsuhi4xhfdllTwZpI AJfBIg4IUu6ZETncEnuYq PlFTJ8YpA7WEM7fFOmoJ7 ibUpdeeczpQ7l Oyc+Q37dyD3cNOW0IWJ3f dxnQMPgtrHlGJ34FB32U6 RyPjwvdGFibGU+PGRpdiB xdFkyHK2iQoUt e4gkc4KrWSydW5TcGNIwB VheReu2APXqIZI3gVJ4dP 2vTOIlJNhkc2A3aGN5M7K dacEudg5js3og JGNwJXmnV44ytSCir6A1Q QJcgOC8LWHeiNhqVpJkoV 93Oyc+LQSulTwfl1ZfGua la9kfh1iurLk8 BeWzPTWgyoTtpOpvZXJ6b 4RqIp46X73iYSfsJMGiPJ SqINLcFZHhwRogtc0ehN8 wIi8+PGNvbCB3 pOH4jR6eUDOrCjU6WUxjK 205RnMmsOMfOkovv3vsh1 sbgGg9BiCtZMBnesRoeUv iIRE5u7QePm10 C61pJFhtQRQhTKEtEVHkO ASlrGgqvr9dqT2wLb7+PC 8jx5sbtk76uE35cGN+PHR nLHJ4oEylLKda YFSikT7zZNwxVjC6MPBrP jQmfR11jVEfLNmkPe1iaS xswHatYW4qUVFlwavma85 2SsJzs2rgCRRx bFQjPQsfQWH5Z17af3Q3W NTjHRYoWVO9aJW5mH2acJ lnbjogbGVmdDsgdmVydGl fCBneMBxqM782 IHRvcDsnPlBhdGllbnQgT qNkPVn0E6KxSqq2FRBaaT gsMM3hwIYgZHsiSn7emSn gaVucRG1hMZTt mqprk642KxAdr7jtZXWsm ABhNHyaYIT7I99zl2K7XZ RrMAYrLHZ0sOY9fQ9qlVp nbjogbGVmdDsg ypAwnCtfRUxtYFouH976D HRvcDsnPkJpcnRoIERhdG S5VJ13IH74fZZlf4Z6hWB 9G3GgEHWjxgqm lkfywPJ3KDOvLSOktQ30Y k1dbYagPn8kPKUaDFL7EC BzxMSzJ7QapO3eKsRgRWS xJFYoF9SlcKEz WSyhI398GZdpXwW0RVSyz hMbJ6WxFOPmzPhuLsI3a6 X3Mc4QU2T4QN33GZ99wTQ mg8X2eJH2U0Ox JDJdwrdpgtfotVM9WLVpA YHrkC59Gw4fzKhqRs4wWX WfVXM0LQKztQJoA1EbwK8 yOiAjMDAwMDAw C7LxtSDdJBgsT906WMglH vA3JOWmtuSmU0SxOTInbE koFiI2d8G9Xy3ICMy1NV9 4SR69pCTgw3I6 uUS6L2PqKOGbjusltipon ZJ0DJCdQCHbcV63Mw2dwG xxWq4oZSKwWZL0PQLnaEB rC8SmpP9pPsEl ZLSzGBEqK4TzsPQpGXqpU 512DIfmPmI7FHZaeqHeY9 JsSXJkyQfcKiO7h4A6Oq5 VOYAfSK19VOE6 zGC8MS30MM37Z4WhTavpn GFibGU+PHRhYmxlIHdpZH RoPScxMDAlJyBzdHlsZT0 nMz0pRGTyQXCj sHizcJWfRgPqy1flPHUxP JjiVQ7daUedX6IlyEM6ML Hau7n8Ia84L88mN7VmhRC +VWArwIG5rRH1 yU3gOyShVdB2SPxjO253B gVawYAeGhpzg8vuu3sznI q9SnJ3GMEtdpYxgXqtFBI 6v0LqDz33K01f IHdpZHRoPSIxNSUiIHZhb Frznx3uaO2iLe3+PGNvbC K1yLX1uX2yOxCeXdW3TGe hW786OgQmcQCc Qeksl4gol4fisZz9KgIgA QEsykZkdTakALQ0v8YbUk 07A3WypFzje6UzWkd0yg5 8gKPgr9O4sQX7 F1NmKPXdytyfhJNueXnlA D9fMEBuqzqyZPZmyP3pQV UfG9l7KoFaMwC0RFedZ0V khgB3MNFtzGZd YEvhOMV6N91jb4H1RHRbW DYaMLL8yMP9cV3psPlpwk ogbGVmdDsgdmVydGljYWw zDYhmQ526GONp kVriBFTuiF2eQOBvgSVqa PwrHY2jGGChqgtnZbvTDO HhNRtXKYFZOQ89ZS73rRQ cl4Y8qBM0V0Tu TXFtejucugzfwWI5MOAaN DMywI30xLCjCRbdNt1qf0 K7z748RVLoWALwcC35Be3 udDogMTBwdCBU vA9jcgylm9vpwnrgRmBuA VTjLVp5FMu4MWNelIdlDc WsWZU9AwO5MCV4bCXrzP9 uvNwwkaarqA9d Oyc+EHViMfwrAWw3VSrak GQ+CJHyNMH3fYjuASwnYK LbcG8kTLWlP6v3YkOnFlJ 5PTeuY9ImTLOg kmsaAn38tI8oVbCbMaW8C RncJ6OeqdT4LANxtPJdAT quLWS8I56ey1Z5FCMkKOE pARU4sIZ9rC0j bGlnbjogbGVmdDsgdmVyd CxwNRrsLGnmX553USLsdH vzQuYcUXhuQPQqAX60XM2 2wXEnp0H7oMR1 F6GmVBUhjboxtxccaTO2V GPvADNuiE78tPQjCTpwFx 3eb0T3e759RULoLMHqxU4 1Ml4ppRalVHGf aDMCcO5avzgwg5lbzmrsS kBoRUUjBSe9MEk7GGKplZ uoOuXtVXG4DhJ7DYM0pUQ bjY4jpNjcsfbk nN4bCaj+AaXuPBuaHQ63D T56fJQkw4T0qPG7W3LiEZ VlpqgoojfopXV1UQCyCIS ukE29mOObOAjh Hb8zr8Q0j954HLPoQLGag S87Ue0lsEeeGNJelTALoX 8gmwtxd5vejvlkBeFhAFE xLIo7IDy5EHAr oScyEsIzUAW5TbN1GJW7z KSacU7clIuilmbtxO2xXo c+V4F5wVD0pRPkzSopaYW +HL21fb30K5Jr DwxiNil2XNYjSSL4jBS1j K5dMJTtHNguu5R9uEI5S8 NmnfWwfb6im4wbMXQhAGm uV09seKIfs1O3 NHSliSC0VPCnvWvnVfCbq G93Oyc+PUPbqTfkl0PjXu otf6omk4zlpYx2KlAkRMH gdmFsaWduPSJ0 o8CbXk68C97zCSywQZTqU JGpCFHrEEOylCgbtp8kwK 9wIi8+JTMctLQ7wXR6jL1 xNsRuNzK3SCqm B990MmHuwUAwRoovv7qgj 3voyBr7KyKcJXCfhlOcdX xwKZJ9y7MbIl87N6PgtOz dj8IoZne1mn26 oFWvt2N1hDE5V6OsZXXme mpocIZytLlbND6wMXHjjm wyULXacZ6rKGLpL6k2SoW hOtP1IXgrE6Hr nvU2UKFnyUJsXOBifCYFr D7mngkhx4xzrcjcIgWsGS IbYRf1HPo2MLHebKrwRjM aMFR7CoF1ULP0 pPTiuN0qaNgobuoymM2xL yc+VVq5z0msdGHgZM4nxE V4XV86NZ22lBPqt7S9lUR 6B4SnNPUnuqog bcacrAV1TSAgTZBqiS65X k8dmVxyOh2uGJDbTFY9LI NomABxT8HchT5mXkFtUHO iFTIxB5IagGGo YPsdA748DGaoAoB1XQGaa cTcJ8YzOLWikTlyGkR5j5 M6Hj3PHG39ZZ80JM63aIJ kt3P6oPI5T2Er DGZkzvinrdxrzPY0HAPvI DWhqT90Fv9dhShbXy0eJQ XcBGJ0ZHLazCAhJ3DefH9 yOiAjMDAwMDAw Z4DppKOyREfcH881ZCywF dD6GKPgazKqW2RgYJAgeH fyFoA0d3U9Pk9VJe77MB6 7CH50yTKlm9V3 kLJ2L7FmMHAcvpbmvvrfc QU1SYXnRMQnuZ11Qq5xwM boIn6wSQWmHTR6RTOpwPI mQ9HgcJ6qMwCq EGVxJXPsX3FhvTDfHLloO 789HAhzLaE8BKPgesWlP6 FyRVXvfYqtTiU4b5Y1Rd0 ZSQofrru6G4Sv PjwvdHI+GD52FYGjBK98j ABvrSVdv5usmEa0XxSrVK IoOKD3yMimSKoae6ToKFK rF74skGAif0S6 IGNv (more content not included)... Normal [facility] Coding Summary. CD:[id number] G h0bWw+PGhlYWQ+PO6IRHC dD99lrEHhuI5GP3mCJY2Y DPQEJSLODT2GEI9ywUD6T YqaL7YpvsHb NvylyXWoSO79DJv2QXA8y MefVRvlxU7lfCZuS7s1Xl BvKV31oM33GKbpLWKcFlG 3LjZpbjsgbWFy O3ejJcKkfUUeJlm+PHRhY mxlIHdpZHRoPScxMDAlJy KkqYhrHB5rOy5jXBErDSQ vbGxhcHNlOiBj s4otZJEtNNhjGZ7vkPxqE 8QuhRD2CJJdu5o6Sd42fI I+YKUaXGE7mUfjYVbph63 7QqYcc7inKGR2 bIPuXIbaWWU7Q39pi0F5U MXaYGKsQUJ7tDK4lB8ewX ulbopcD0WeaIXhTyJ3MQX 2zVSgrF6diNic ebswiT1yUek+Z11XRX4SW CQMYR2MUes8L1UtFfnnfY I+CA22JKZpOI55uNOjbRH pq4xwcJz0GbLq ZYYiIVW6tDqzQWarh0GsU ZOhM38kgCVvn2L1QCVahN xieWSgBnUepNA3uV1yUVv iqfcnu9gdaxzo Lpvyg0hbss05eL79P23rQ WblPOFhLUK4QFLkQQBesF dmep1caH1uPj4+DYvrj5a mo0nhqXk9CfFo HXCxwaXgkPonECO2y7YhS t31S5EvjYfob4QnFfz0pa 44nRLqu3L8vFJ0DTjlCET wzU6bXUzrCgA6 CAAbLvRdwK91qHSfLPfsE g1mjImtwLtqFN2gTVUgfc kqYWPacC2uBDBzxHZwtQi tHC5aAQVgxqcq q316BhRcGGJ3NFLyjIMrW 0FdiJ2hBkClJRDdDJQhY5 KehUExBWoqX603DDwqBhM 6EPJlayXaA5Yt DFYmrHfzQkF1u9U5Bx6Jw 3VjqejbWFH3XWqkITLqQb X3AcJnUzT5V6SdYdf0KLR bxNxqNW5sY3Wz DYYqqrluyctilKQ5DBFpC AOplE52xRAaEEnfJs5xj8 D0b574OWPcQYIqrR01Xy2 udDogMTBwdCBU kO5oovodh0agnoaxVzMcD IAlWPy9AFd7GGCjrDuwYa ShNOL6WaZ9RAM4qMKijM4 wwYmsevbvzL9s Oyc+D43thI6hMYR3YFX4z tjuFSUseoUwQG53RN81B8 RyPjwvdGFibGU+PGRpdiB ckShcNJ5yOeVa o9yah0KrAQnbE3AiYLGhS FhmAqc5NNYzBNB0jEG1qD 7yVIUdIDxtr7Y7oGE0S9T vhhMrku2db1rq UIScTOnfH46suQZxt0Z3E HPfdMU3JRMmdJugTbTuhA 93Oyc+BOCiyQlni8XcDrl dl9wxs8ujhCx6 IkLmFLTrzdMeuPzqCTU7j 6MfNf76M95iRMgrJCEdQE DlWXVyBQLbwFdsxf3yjO2 wIi8+PGNvbCB3 cKN5zE0nBDUfUrM8FKrsO 351EaYutCZpEgbfg9que8 fdpIw2SiUnSIXvpbBjlKa dKUC1b5SrVi55 D90cQBgtSIFkJZGySXMdX SJcjLgflq9jjK7uYb0+PC 2rw4wvyr48eQ11yUP+PHR oWVF3zMugSQpe XWYdcB1oEZrtDrR6CXVeY eJmpC40uBAaMYbzKh3ucV wdoDpgVQ3tBVTjhlugs33 2AyZqx4unSJIr aSVmQMxhNIK8D14kj9C5J BYvOZNyFRJ1rKS5uI6mtE lnbjogbGVmdDsgdmVydGl wHZqqJQhyJ763 IHRvcDsnPlBhdGllbnQgT hCdKGa4G8DyJdt9CBKgxJ olXS3agMAhEMdbZo1ydIg ctKmgHD6rIMBr wwyrq907QiBko7ypBHRxi JRdVOokDXD9M61vq1U2AP PmDSQpDEH4zGO6hY7vnKi nbjogbGVmdDsg klTwuQoxWTjrUJvgB554J HRvcDsnPkJpcnRoIERhdG R4HK73NI03zRPxp0U5cNI 3T2HqUBLwvtxt ttqqfTM8LEYpKZIkmK64Y g0vtXdjQa6mPLRbWPJ9ZG BsmEGhN6OygT7uWaOsPZN vKGTgM9BafEYq QCvdE973UMvyZwB4KAPoy iUvC3LiLQXnsSagOlZ0i2 A7Jx4MM6S7ER03EY17rCW tm3O6vCU8M0Az SPDjwozzhknayJA8AHUoX OKynZ56Jq2wbNjlGg6wOY XaFDI0PLEinZAbC7RnlL7 yOiAjMDAwMDAw Y7ErdWSnRIyxA065CSoyL oD2NNMayeRqH3RnJAScwU jiFaX7l5N0Gz9WRTy1TV4 7XC61kJAdt0U0 eBH6V2HoBHSkucndpkinx GD5GRBoLHJteV76Vh8uyV feOa3ePBNpYQG0SIHbnXK zU1ScnB3fTuBe PIXeWBCnI7PjsDUiDLqsK 027PBybRzS3UOUyvoHbI9 QdJNNkbYgbRbZ9d4C8Wy6 BDEBlQO41DXW4 zHN3EL85OF29G3WnAlhbu GFibGU+PHRhYmxlIHdpZH RoPScxMDAlJyBzdHlsZT0 qSh3xJJNdASYf iCvwcOTaWgBuq7htRFBgK BdyPI9dgQbiF4GnvTE8XH Dgd7y0Gf35K18xK7TjsVO +JQTrmAE6sPO4 kT4lYdKcBjH9DGqgL227G yFftAAiPjvrs3phz8nxxB b7NnE9DQNinuHbjVxwIBR 5x6AwDj61V88z IHdpZHRoPSIxNSUiIHZhb Exipy4idN2qVc3+PGNvbC F1fLH3jN7oMeOrTdI0VEl qW939UtDnzTCk Bctuk4ink1qygPc8RgBnA SYyjmHxsMonRJL9n6WbCb 81H2JjtScff4LdHpj7jj1 9fJZog3R8eJE5 W3WxWKKnzgparHJexYxbQ B2qWFIrwjrsDRHqcX9sSD SrJ8z6LuByTbF6LJhsJ6V tipJ5BTBkdEVf VVxtQVW0C97gq5R9CHYwR RBfOEQ4zLI2qC3xuIacdv ogbGVmdDsgdmVydGljYWw aFMiwO736OGBq fIbkBYCgeJ9gAPJhyTHbv TntUZ9nFEKxbzmoIbpIOX DqDQyCYKXBZP84IW17vVJ rh0X7kOS9F9Lv FGBrckgauicieRO3CPFzG CBhbA27wFVdNNlfVh6br0 X9a959RJLrJBEowE93Bn1 udDogMTBwdCBU uM4rjcric8jsrytoCfGqD BVmLEq5ECh1JUNhxPkcXi VdVLL6JqF1DBN5aVEdjE7 wuTcnofvqtR5v Oyc+WJEbHnfrUPu7ONwqn GQ+RIPwTGQ2yMztCAwcGX UasQ9zRMCeK6o5MfGoMmM 1MMpiY7JdQUGs cvoiGu80dO6xZbJtJmQ8I WsaM9HawnB2AEIqgIMeCZ mdHIU2F72gi1I7ELLzHIL qPTS2lJG8jI0o bGlnbjogbGVmdDsgdmVyd SncJEbxEZphP021KJLyqX grLcUzYQggWWOvYR65CL1 5sMHmq9E9yMH9 L1RxIPFupeegzcoekPW3H IYlHBNrqY30bPVpKRzgDf 3et6Y7p061JIQrRDKgbO4 5Lq6gcYnmYPJu bXGAvL8esmisi0bplhfzZ dLcDCQoKMu0PDo7XWHmzW ckMwFnYSL4PpS0YPL1jHZ xgH6owDsfhbrx eY6gBmz+MfNaHIpjTL38B M85rGVmv3M9wYZ8A6ElTT NywqrkjsumfLS4CDZlCJB yjM59jEUxEOcv Rw9ch0Y6n994EPIlTVRwg K32Gt4rtVvmWMDgxFPShY 0vwnwte0ayzrnwVhSrRGI qIBs0PTe0OESl bVqzGxZqUQT4YxH9ZYA9f CTkrV3bqCvgfgzbuU4xGy c+SKEgSYJma6Qxh5FjHH4 6PD48P9YeHulw dGFibGU+PHRhYmxlIHdpZ HRoPScxMDAlJyBzdHlsZT 5aOo6cRIHbTIEthWzqdZX aNlWdf6afAEVe NIjfGA4unHcgA2SdoNJ3V QLyd4j9Ug46N16qM9CmtC A+EFPhfWB7jUN9iO4pVkE zJsU5KGilI661 CvXotEGvJdoli2whk7afe Gz3UtCgSOWwofRkjMnwOB D3r3CxJy72T71xYUndNXG oPSIyMCUiIHZh aLdngk4mcW6uOy7+PGNvb TY8gBQ9tK7eJpIqLpC8AI dvV701GsWrhQTaTrafE66 vI5MveFX+PHRy Kai0QUUljMtwGB7uzRJrI KtsJu6uXNU3BhCiEqWfFT siY2AoJHTirifpcnmgrFA 9DIIoZNEfuL75 Rj6muDqkJs3mYAEzJDO3K TQwrEArK7HppP0eHmXvOR TmQEHnZ4XugNJgXDtuV48 5IWhpJrQ4WZKs dxEpU9RiGWNpgJzbUjH3q 8H3Xs1EcHvswORcOS0fQs QpWGs7T3TuZtw0GMUjdSq jUK7jzXRlTRob Mg4xyKpdhRugKV6mASBbs ssph302ThSpm9wbHSLxmH HnKOtrDDV0P22qs0W6IFM vKHMyJDY8nNS0 zS2cuPzvbibhzHJonGtzp pZgxRlnWJntUKasI782KS BsdWzjOsOJAba7V2PaFyy 1RKPxkUteFG8e sPYpIYppRc6mrFignEduX R6aBPQntqmfl509TrZkb8 gaZZVoyBHmTWuzVVD2I72 do7K7FNAkRPWl WJI1bQL9nD9pyTmafsdix GVmdDsgdmVydGljYWwtYW atV218XUOezClfRx8FYdd 4D6EiGyk3ZGUr aFtoKK5vgFOxKYpoOt5hq KbujLirTH1iFXWzfvwpr8 73TnBgj4qiVRVgvLHoRZh hAAD4O15kg4R0 TEDdWYMrMGC4wKR7rP5mm GlnbjogbGVmdDsgdmVydG qfEWvzFEhwX297QWIptYz nPlBheWVyOjwv dGQ+KH24kx52N3TwQnphT fq9QFZiWDN3tWL7jQ2cHQ IcWYdez7K9sGF1L6PpjzU joo7zh5ugFZIj ZTog (more content not included)... Normal [facility] PAP [id number] 08-15-2021 Cytology report Cyto stain Doc (Cvx/Vag) Note Invalid Interpretation Code [facility] Comment on above: Result Comment: TEST S RESULT FLAG UNITS REF RANGE LAB Clinician Provided Cytology Information Source.............[employer] No. of containers..01 ThinPrep Vial DIAGNOSIS: 01 NEGATIVE FOR INTRAEPITHELIAL LESION OR MALIGNANCY. Specimen adequacy: 01 Satisfactory for evaluation. No endocervical component is identified. Performed by: 01 Sujey Engle Director [employer] Operations ([employer]) . 01 Note: Note 01 The [...] <-Panic Low,>-Panic High,A-Abnormal,AA-Critical Abnormal Performed at: [address] [facility] [place] [address] Mar Rivera MD, Performed By: #### 1 [id number] #### [facility] [address] [place] [address] HPV 16+18+31+33+35+39+45 +51+52+56+58+59+66+6 8 DNA Probe+sig amp Ql (Cvx) Negative Invalid Interpretation Code Negative [facility] Comment on above: Result Comment: This nucleic acid amplification test detects fourteen high-risk HPV types (16,18,31,33,35,39,45,51,52,56,58,59,66,68) without differentiation. Performed at: [facility] [address] [id number] MD Nicole Manuel Performed at: =[address] [id number] MD Nicole Manuel Performed By: #### 1 [id number] #### [facility] [address] [place] [address] Insulin Lvlon 08-11-2021 Insulin Qn 24.3 u[IU]/mL Invalid Interpretation Code 2.6-24.9 [facility] Comment on above: Result Comment: Perf ormed at: [facility] [address] [id number] PhD Archie Jha Performed By: #### 1 [id number] #### [facility] [address] [place] [address] Consent for Treatmenton 07-29 Consent for Treatment [id number]#1 .00CD:127 Normal [facility] Glu Fastingon 08-10-2021 Glucose [Mass/Vol] 95 mg/dL Normal 55-99 [facility] Comment on above: Performed By: #### 1 [id number] #### [facility] [address] [place] [address] Physician Orderon 08-10-2021 Physician Order [id number]# 1.00CD:127 Normal [facility] PAP [id number] 08-09-2021 Collection Technique BRUSH-SPATULA Normal [facility] Comment on above: Performed By: #### 1 [id number] #### [facility] [address] [place] [address] Gynecological Body Site ENDOCERVIX Normal [facility] Comment on above: Performed By: #### 1 [id number] #### [facility] [address] [place] [address] Physician Orderon 08-09-2021 Physician Order [id number]#1 .00CD:127 Normal [facility] Gynecology Office/Clinic Not pratik 02-17-2019 Gynecology [...] Family History Family history is negative Normal [facility] Comment on above: Result Comment: Elec [...] Family History Family history is negative Normal [facility] Comment on above: Result Comment: Elec tronically Signed By: Shamika ISAACS, Kaley Wilson\.david\Date and Time Signed: 02/17/19 12:09 EDT Vital Signs Date Time Vital Sign Value Performing Clinician Facility 01-02-2024 09:15-0400 Body height 157.48 cm [facility] 01-02-2024 09:15-0400 Body mass index (BMI) [Ratio] 33.9 kg/m2 [facility] 01-02-2024 09:150400 Body temperature 100.2 [degF] [facility] 01-02-2024 09:15-0400 Body weight 84.08 kg [facility] 01-02-2024 09:15-0400 Heart rate 115 /min [facility] 01-02-2024 09:15-0400 Respiratory rate 18 /min [facility] 01-02-2024 09:15-0400 SaO2% (BldA) [Mass fraction] 99 % [facility] Encounters Encounter Date Encounter Type Care Provider Facility Start: 01-02-2024 End: 01-02-2024 ambulatory JOHNNY FERNANDEZ Not Available Start: 01-02-2024 End: 01-02-2024 ambulatory [facility] Work Phone: Start: 01-02-2024 End: 01-02-2024 Patient encounter procedure [facility]ly [facility] Work Phone: Start: 11-27-2023 [...] Facility: Payers Date Payer Category Payer Unknown [id number] 2021 Unknown [id number] 1999 Unknown [id number] 2.16.84 [id number] 1999 Unknown [id number] 2.16.84 0.1.907650.3.579.2.593 1999 Unknown [id number] 2.16.84 0.1.148576.3.579.2.593 1999 Unknown [id number] 2.16.84 0.1.339506.3.579.2.593 1999 Unknown [id number] 2.16.84 0.1.938935.3.579.2.593 1999 Unknown [id number] 2.16.84 0.1.708150.3.579.2.593 1999 Unknown [id number] 2.16.84 0.1.456249.3.579.2.593 1999 Unknown [id number] 2.16.84 0.1.827393.3.579.2.1259 1999 Unknown [id number] 2.16.84 0.1.528251.3.579.2.1259 1959 Private Health Insurance [id number] 1960 Unknown [id number] Social History Date Type Detail Facility Tobacco smoking stat [facility] Unknown if ever smoked [facility] Work Phone: Start: 2000 Sex Assigned At Female F [facility] Evaluation note Note Date & Type Note Facility Evaluation note No assessment information availa ble [facility] Work Phone: Summary Purpose Family History [...] and content) DATE CREATED AUTHOR 03/06/2019 [employer] [facility] DATE CREATED AUTHOR AUTHOR'S ORGANIZ ATION 12/21/2021 [facility] DATE CREATED AUTHOR AUTHOR'S ORGANIZ ATION 12/01/2022 [facility] DATE CREATED AUTHOR AUTHOR'S ORGANIZ ATION 01/04/2024 [facility] [employer] Care Teams (unrecognized sec [...] BE BASED ON THE PRIMARY CLINICAL RECORDS. [employer] provides no warranty or guarantee of the accuracy or completeness of information in this document.
[2024-04-08 13:51] LABS: Basophils Percent Auto 0.1 % (0.2-2.0); Eosinophils Absolute Auto 0.1 10^3/uL (0.0-0.7); Eosinophils Percent Auto 0.9 % (0.9-7.0); Hematocrit 39.6 % (36.0-48.0); Hemoglobin 13.7 g/dL (12.0-16.0); Immature Granulocytes Abs Auto 0.03 10^3/uL (0.00-0.03); Immature Granulocytes Pct Auto 0.3 % (0.0-0.5); Lymphocytes Absolute Auto 2.3 10^3/uL (1.2-3.8); Lymphocytes Percent Auto 26.6 % (20.5-60.0); Mean Corpuscular HGB Conc 34.6 g/dL (29.9-35.2); Mean Corpuscular Hemoglobin 30.1 pg (26.7-34.0); Mean Platelet Volume 9.6 fL (9.5-13.5); Monocytes Absolute Auto 0.4 10^3/uL (0.3-0.8); Monocytes Percent Auto 4.1 % (1.7-12.0); Neutrophils Absolute Auto 5.9 10^3/uL (1.4-6.5); Platelet Count 400 10^3/uL (150-450); Red Blood Count 4.55 10^6/uL (4.20-5.40); White Blood Count 8.7 10^3/uL (4.0-11.0)
[2024-04-08 14:20] LABS: Estimated Average Glucose 103 mg/dL; Glycohemoglobin A1C 5.2 % (4.5-6.2)
[2024-04-09 06:12] LABS: HBsAg Screen Negative (Negative); HCV Ab Non Reactive (Non Reactive); HIV Ab/p24 Ag Screen Non Reactive (Non Reactive); Rubella Antibodies, IgG 2.32 index (Immune >0.99)
[2024-04-09 13:11] LABS: Rapid Plasma Reagin, Quant Non Reactive titer (NonRea<1:1)
== END 2024-04-08 13:11 | disposition home or self-care (01) ==
LOC: LAB 13:17
PROVIDERS: PCP Family Medicine; Visit Provider Obstetrics & Gynecology
DX: O09.819 Supervision of pregnancy resulting from assisted reproductive technology, unspecified trimester (principal); Z3A.00 Weeks of gestation of pregnancy not specified
CPT/HCPCS: 36415; 83036; 85025; 86592; 86762; 86803; 86850; 86900; 86901; 87086; 87340; 87389

== ENCOUNTER 2024-05-05 14:51 | Outpatient (OUT) | payer OTHER, BC, SELFPAY ==
--- NOTE | 2024-05-05 14:52 | US_ITS ---
The [address] [address] Patient Name: ANNA MARIO MRN: [id number] date: 2000 Sex: F Assigned Patient Location: [facility] Current Patient Location: [facility] Accession/Order Number: [id number] Exam Date: 05/05/2024 14:52 Report Date: 05/05/2024 16:05 At the request of: LUIS DOTY Procedure: US OB transvaginal EXAMINATION: US OB transvaginal HISTORY: CONCEIVED THROUGH IVF. COMPARISON: No relevant comparison available. FINDINGS: CARDIAC: 146 bpm CERVIX: 3.6 cm cm in length and closed. OTHER: None. AGE BY LMP: 15 weeks 5 days SARA BY LMP: 10/22/2024 US/US OB transvaginal IMPRESSION: 1. Single live intrauterine . 2. Cervix is 3.6 cm in length and closed. Electronically authenticated by: LUCHO PADRON Date: 05/05/2024 16:05
--- OUTSIDE RECORDS SUMMARY | 2024-05-05 14:57 | XMS_ITS | CCD ---
Author Organization [facility] Care Team Providers Care Professor Of Marketing Name Role Phone LALITHA ., DR SMITH [...] Unavailable LALITHA ., DR SMITH Consulting Unavailable LUIS DOTY Attending Unavailable JOHNNY FERNANDEZ Attending Unavailable LALITHA, LUIS Attending Unavailable Allergies Allergy Classification Reported Allergen(s) Allergy Type Date of Onset Reaction(s) Facility (2 sources) Latex Drug allergy (disorder) 08-23-2019 hives [facility] (1 source) orange flavor Drug allergy (disorder) 08-23-2019 [facility] (1 source) [place] - fruit 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 01-02-2024 anaphylaxis [facility] Medications Current Medications Medication Drug Class(es) Dates [...] Facility PROGESTERONEon 07-27-2022 Progesterone 26.9 ng/mL Normal [facility] Comment on above: Result Comment: Foll icular phase 0.1 - 0.9 Luteal phase 1.8 - 23.9 Ovulation phase 0.1 - 12.0 First trimester 11.0 - 44.3 Second trimester 25.4 - 83.3 Third trimester 58.7 - 214.0 Postmenopausal 0.0 - 0.1 Performed By: #### P ROGES #### [facility] [address] [address] [address] Ryan Francisco PREG QUANT HCGon 07-12-2022 HCG QUANT <1 Normal [facility] Comment on above: Performed By: #### P REGQNT #### [facility] [address] [address] [address] Ryan Francisco HCG RANGE SEE BELOW Normal [facility] Comment on above: Result Comment: 5-50 0.2-1 WEEK 50-500 1-2 WEEKS 100-5,000 2-3 WEEKS 500-10,000 3-4 WEEKS 1,000-50,000 4-5 WEEKS 10,000-100,000 5-6 WEEKS 15,000-200,000 6-8 WEEKS 10,000-100,000 2-3 MONTHS Performed By: #### P REGQNT #### [facility] [address] [address] [address] Ryan Francisco XR HYSTEROSALPINGO EXPon XR [...] by: CLEMENTINE DEWEY Date: 2022-07-12 12:34 Normal [facility] PROGESTERONEon 06-29-2022 Progesterone 4.6 ng/mL Normal [facility] Comment on above: Result Comment: Foll icular phase 0.1 - 0.9 Luteal phase 1.8 - 23.9 Ovulation phase 0.1 - 12.0 First trimester 11.0 - 44.3 Second trimester 25.4 - 83.3 Third trimester 58.7 - 214.0 Postmenopausal 0.0 - 0.1 Performed By: #### P BRETT #### [facility] [address] [address] [address] Ryan Francisco PROGESTERONEon 06-01-2022 Progesterone 18.9 ng/mL Normal [facility] Comment on above: Result Comment: Foll icular phase 0.1 - 0.9 Luteal phase 1.8 - 23.9 Ovulation phase 0.1 - 12.0 First trimester 11.0 - 44.3 Second trimester 25.4 - 83.3 Third trimester 58.7 - 214.0 Postmenopausal 0.0 - 0.1 Performed By: #### P BRETT #### [facility] [address] [address] [address] Ryan Francisco US PELVIS AND TRANSVAGon [...] by: CLEMENTINE DEWEY Date: 2022-05-17 17:25 Normal [facility] PROGESTERONEon 04-29-2022 Progesterone 5.1 ng/mL Normal [facility] Comment on above: Result Comment: Foll icular phase 0.1 - 0.9 Luteal phase 1.8 - 23.9 Ovulation phase 0.1 - 12.0 First trimester 11.0 - 44.3 Second trimester 25.4 - 83.3 Third trimester 58.7 - 214.0 Postmenopausal 0.0 - 0.1 Performed By: #### P BRETT ####[facility] [address] [place], [place] [address]Sy. Ryan Francisco ANTI-MULLERIAN HORMONEon Anti-Mullerian Hormone (AMH) 6.09 ng/mL Normal [facility] Comment on above: Result Comment: For assays employing antibodies, the possibility exists for interference by heterophile antibodies in the samples.1 1.Steffen Peguero. Interferences in Immunoassays - still a threat. Clin. Chem. 2000; 46: 7923-1523. This test was developed and its performance characteristics determined by [employer]. It has not been cleared or approved by the Food and Drug Administration. Reference Range: Females 20 - 25y: 1.23 - 11.51 Median 4.70 AMH concentrations of >= 1.06 ng/mL is correlated with a better response to ovarian stimulation, produced more retrievable oocytes and higher odds of live according to Gleicher et al. Fertility and Sterility. 2010: 94:5325-1705. The current AMH test method correlates with [...] AMH-secreting ovarian tumor. Performed By: #### A WEI #### [facility] [address] [place] [address] Dr. Ryan Francisco FSHon 04-05-2022 FSH 3.6 mIU/mL Normal [facility] Comment on above: Result Comment: Adul t Female: Follicular phase 3.5 - 12.5 Ovulation phase 4.7 - 21.5 Luteal phase 1.7 - 7.7 Postmenopausal 25.8 - 134.8 Performed By: #### L [facility] #### [facility] [address] [place] [address] Dr. Ryan Francisco LUTEINIZING HORMONE (LH)on 0 04-05-2022 LH 6.8 mIU/mL Normal [facility] Comment on above: Result Comment: Adul t Female: Follicular phase 2.4 - 12.6 Ovulation phase 14.0 - 95.6 Luteal phase 1.0 - 11.4 Postmenopausal 7.7 - 58.5 Performed By: #### L BCL ####[facility] [address] [address]Dr[address] Ryan Francisco CBC AUTO DIFFon 04-04-2022 BASO # 0.0 103/ul Normal 0.0-0.1 [facility] Comment on above: Performed By: #### C BC #### [facility] [address] [place] [address] Dr. Ryan Francisco Basophils/100 WBC (Bld) 0.3 % Normal 0.2-2.0 [facility] Comment on above: Performed By: #### C BC #### [facility] [address] [place] [address] Dr. Ryan Francisco EO # 0.1 103/ul Normal 0.0-0.7 [facility] Comment on above: Performed By: #### C BC #### [facility] [address] [place] [address] Dr. Ryan Francisco Eosinophils/100 WBC (Bld) 1.7 % Normal 0.9-7.0 [facility] Comment on above: Performed By: #### C BC #### [facility] [address] [place] [address] Dr. Ryan Francisco Erythrocyte distribution width (RBC) [Ratio] 12.7 % Normal 11.0-15.0 [facility] Comment on above: Performed By: #### C BC #### [facility] [address] [place] [address] Dr. Ryan Francisco Hematocrit (Bld) [Volume fraction] 39.7 % Normal 36.0-48.0 [facility] Comment on above: Performed By: #### C BC #### [facility] [address] [place] [address] Dr. Ryan Francisco Hemoglobin (Bld) [Mass/Vol] 13.4 g/dL Normal 12.0-16.0 [facility] Comment on above: Performed By: #### C BC #### [facility] [address] [place] [address] Dr. Ryan Francisco IG # 0.03 10e3/ul Normal 0.00-0.03 [facility] Comment on above: Performed By: #### C BC #### [facility] [address] [place] [address] Dr. Ryan Francisco IG % 0.5 % Normal 0.0-0.5 [facility] Comment on above: Performed By: #### C BC #### [facility] [address] [place] [address] Dr. Ryan Francisco LYMPH # 1.6 103/ul Normal 1.2-3.8 [facility] Comment on above: Performed By: #### C BC #### [facility] [address] [place] [address] Dr. Ryan Francisco Lymphocytes/100 WBC (Bld) 27.1 % Normal 20.5-60.0 [facility] Comment on above: Performed By: #### C BC #### [facility] [address] [place] [address] Dr. Ryan Francisco MANUAL DIFF REQ NO Normal [facility] Comment on above: Performed By: #### C BC #### [facility] [address] [place] [address] Dr. Ryan Francisco MCH (RBC) [Entitic mass] 29.6 pg Normal 26.7-34.0 [facility] Comment on above: Performed By: #### C BC #### [facility] [address] [place] [address] Dr. Ryan Francisco MCHC (RBC) [Mass/Vol] 33.8 g/dL Normal 29.9-35.2 [facility] Comment on above: Performed By: #### C BC #### [facility] [address] [place] [address] Dr. Ryan Francisco MCV (RBC) [Entitic vol] 87.6 fL Normal 81.0-99.0 [facility] Comment on above: Performed By: #### C BC #### [facility] [address] [place] [address] Dr. Ryan Francisco MONO # 0.4 103/ul Normal 0.3-0.8 [facility] Comment on above: Performed By: #### C BC #### [facility] [address] [place] [address] Dr. Ryan Francisco Monocytes/100 WBC (Bld) 6.7 % Normal 1.7-12.0 [facility] Comment on above: Performed By: #### C BC #### [facility] [address] [place] [address] Dr. Ryan Francisco NEUT # 3.7 103/ul Normal 1.4-6.5 [facility] Comment on above: Performed By: #### C BC #### [facility] [address] [place] [address] Dr. Ryan Francisco Neutrophils/100 WBC (Bld) 63.7 % Normal 43.0-75.0 [facility] Comment on above: Performed By: #### C BC #### [facility] [address] [place] [address] Dr. Ryan Francisco Platelet mean volume (Bld) [Entitic vol] 9.9 fL Normal 9.5-13.5 [facility] Comment on above: Performed By: #### C BC #### [facility] [address] [address] [address] Ryan Francisco PLT 421 103/ul Normal 150-450 [facility] Comment on above: Performed By: #### C BC #### [facility] [address] [address] [address] Ryan Francisco RBC 4.53 106/ul Normal 4.20-5.40 [facility] Comment on above: Performed By: #### C BC #### [facility] [address] [id number] Ryan Francisco WBC 5.8 103/ul Normal 4.0-11.0 [facility] Comment on above: Performed By: #### C BC #### [facility] [address] [place] [address] Dr. Ryan Francisco FREE T4on 04-04-2022 Free T4 [Mass/Vol] 0.99 ng/dL Normal 0.76-1.46 [facility] Comment on above: Performed By: #### F T4 #### [facility] [address] [place] [address] Dr. Ryan Francisco TSHon 04-04-2022 TSH 3.086 uIU/mL Normal 0.358-3.740 [facility] Comment on above: Performed By: #### T SH ####[facility] [address] [place], [place] [address]Y[address]. Ryan Francisco US PELVIS AND TRANSVAGon US [...] weeks to document regression. Electronically authenticated by: LUCHO PADRON Date: 2022-04-04 16:38 Normal [facility] Auth for Release of Medical Recordson 12-20-2021 Auth for Release of Medical Records [id number]. 00CD:127 Normal [facility] Coding Summary.on 08-22-2021 Coding Summary. CD:[id number] G h0bWw+PGhlYWQ+WX5FOWM dU85xuDLnyJ0ZM8hBIU0E UCDSQDVGAD3DSZ1mwUM3R RylQ2NhsiXb KmksxJIoOI91GWt6JFE2b OeuXEpaeQ6mjDNpP2a9Ar WpJD95uR87SLjiKHDeFaP 3LjZpbjsgbWFy M2ylKjNixRRvBrq+PHRhY mxlIHdpZHRoPScxMDAlJy JdbQvxPB1qXt8fAHRxJGF vbGxhcHNlOiBj j4jbPGGdEQtkRP7vzWycX 8YumWP7JONdi5x2Ti16vF I+EFLrIZP7wOmeFVakx38 3UhAqy3nqBJE5 hUCtZSkxBQX0B46oj4C8S ICcQWMdTPU3bOU0bC4pqQ unzsznN5LazTGuVoO1CTO 1oYHqqY4gwEwo fyjxmG7rTki+W31WGI8JJ DUFTG0HRho1Z2CqSjrhkP I+CG54UPYyNN77pHPzoFJ tb4gtsLn7PhZq YCWsPID4uFszQZwam8XwK HXkV29zeKFzb9R5UKWkrE ceiXEdJtJquGI0pF2kGSs lljhkk9tjnlnh Sxstc8npms77qI46A58kA FhdVIRrZWV7LGWzAXFdxY bxml8mnS5kLh9+TBech1n fr3vfrZb5ArTn IAHbraFbnGirFGF4y2EeX i50V1OuaNuva7KwNyy7og 23fDFcq4W1zEP5EJljHSX weK6rTMyvPvJ2 RNBkIgEcgD59dKIdXCqnJ b9xoTlqbLdmZC6sCHCqnm yjSUTidY1aCZWucLLkwVj sNG5fMPYnptqt v989JrVvLVX8IEGzhCYyN 8SceI9aCqRjROBgCIXpZ0 LpsRKbKQdgU620SWwuXqI 0MAImemSjC6Es ANOohOhqBvX2y4N3Mh3Ww 7GszcsxJOK4OOyhTKQmZu Q9CoHjXmD3N3BcCrw6SLN dtWtaJE3mC0Xi RUEgljstetbvrCX9TRUfU PVbmV09sUUvVHzoCu6od0 N2z009MZQwZAFizF41Ww1 udDogMTBwdCBU qN7pxwlxs5ckcbfyZeUzN BRbGIl9PVw9KENdiOhqDq JrLEZ5PxB6LIS2yZApsM1 ulSmoxivhiW9q Oyc+F67atU7zPDO9XST2w sgqKPSmdvXwCA53BW36O3 RyPjwvdGFibGU+PGRpdiB kgAjnBQ1uTiUi y4rui3CwVIatJ7VbYQIwM KrlZkp1ZPZmXNP0aEL8fM 9tSMVuQZlio3D4aXM3A0R cjjRwoy8ag5so AOOaLXszA21quALnk6U1H GAtvSJ4ILZefEwjDbObdO 93Oyc+TZHqmPclk7IkJvu ro1lfm5ckzVu5 ZaNoROBjaeUoaJlmVKJ0p 1DtYt09A11vQWcwQCZzHL NyJWFjJBQpbHdwck3ajQ4 wIi8+PGNvbCB3 rFB7sZ5qMCSqApX6FRpiW 220GtZbsXKnWqwqs6vrf3 itpFt9CcSlVDRvdnJlfOy dJWE6e6RrYb47 Q59sQXpfUWGwSETyTTOeQ HVopHivhy7lsJ9xLi6+PC 0va7gbuj53bK87xYD+PHR dBOZ1tBkqCRjs RUNvrS0fULasEvT4QVReO dQwdC28wIDlQVhfXx6reJ uidYtgQW8lWFJhyatqp45 1MwTcy0qgESOi bKDgIVdpUBQ4N89qi8V6T TQnGTPvNSP4bCT5hZ0onH lnbjogbGVmdDsgdmVydGl nWXguBGsbI814 IHRvcDsnPlBhdGllbnQgT wJpNUy6S3GoFhn8KNUjlI taQJ7vsDZhDMamMv7xiKx qxWvqLO2mVHDj fxpef962WmLbt3gdJLRdl QKuOPxoLQS3W82yr8F6UU SdLZZsFRN8kPZ8rY9jyIc nbjogbGVmdDsg quSirBxzGDzlQPdyR862V HRvcDsnPkJpcnRoIERhdG E1MO50DE64uRGsu8X9lKU 1Z7RiTATrxqha udbqwMB6DHJsMQDpeF43G h3fkBfnZl4hERIlAIL3QX NwkYUmZ0SldX9nCvEvBHI qLOWpH5FwrUHl YKfeH321WJdbTeE4EQNvz qQjZ3UlIBEkzXfaSeE9y7 W7Cw6EB2W5KQ00DA24tZS ku5P1xFY7N5Mv FOBtsyvrnjmdhLU5JZIpK CTizD87Bv9vhOjnRg6xHV EqHHZ3LKExpVZzM8DfzO4 yOiAjMDAwMDAw M4NrxXVkPEuiW169CGmeC kR7IPStddTxI8NlFCVngP dqFoZ0q8B6Fj4IBRh0DA5 0KJ07xNEbl0D4 dFX1U7WkTWArjezookvce GU0TYEkZHUpoJ53Kg2jqD vbWp4cPBHcULF4XYLkhWA fM7JhmV4mEtRc RCNnQTCdB3OriBMiZQyrS 363IJcyIcF9AAVdboWaK1 NtMQEclBdcJiJ3g3G2Ts2 RGMPrWQ02KCR0 iWA6UK68YN67V2PkBitko GFibGU+PHRhYmxlIHdpZH RoPScxMDAlJyBzdHlsZT0 mIi0zATDaCFOl iGjreXIcMmPxh6qyPDQbC QodYJ6zbBtvG8UqcUT2VF Tdl3n1Nh79S66fM6UmcIO +UQHazLY9bJJ4 wW0vUjYeJbQ3LUwaA532C bMlbRUaJffwg5pmj8hemU u6PiB7KZElxkWatNniXHV 7v5QmSy29I64c IHdpZHRoPSIxNSUiIHZhb Gehwt2edI5xXd8+PGNvbC A8vJQ5qB6wJlIkWtT5RBs vC914DpGiyJRh Ltzwv4qvl7booOy7BuLhG GEwzoQesLtrRJM4f8LwAz 46J7JfzVglm1NeDkq1mm6 2nJGtx2H6kSM9 S7BxHDDjesgufHQyoHmkX L0jZKJihbfjFYVtcO2fGU VsT0h4LkLoMzX2MFzmQ1D bkdD5DCTstMVi UCajTYF7B53ei8B1LKWgQ YMwZSI3cZP4dQ1cpBjwgf ogbGVmdDsgdmVydGljYWw aJMlqL791GRGu wLvvANGugJ8hPWUegWJfj VzsTX9zYEEhrwknMnvAWN UdYRwXMULQJG76WN33jII sz5H2xFL2R9Jw VBEmmjnjlslogYL6AYSaH FBusM77cWSxAOhfNs1om8 X7o870LSRkBJIbkK15Gj5 udDogMTBwdCBU hR0xrrzet9vvgvndMzYhG LXcFCa7CXg6KYGaaBlfEb HqNGW5OiD2QFR5mTTloI5 jtYkaaumouB1b Oyc+VHEbSzqqKGz6EQjbf GQ+AFUhFTM8sGcvPSakGG WqcF3jUBWhT9j8RoPlUdV 3UBjyB9PtQJSs jdalBo85mS2iMhCzFvD3Q UrcU5VhjzN6CQInlIXnVK dxXUE8G27yb9N8GYPiUXT jQTF5eBO9kP8y bGlnbjogbGVmdDsgdmVyd PpjSPnnRLhoJ081NOHfpT ymHmOlLJftVITyNF46VW3 4nMWtl5R8fKC1 Z6ReOIElyiswomomqOM1F NSkBEVtuK58cVUfDEbmBh 9lv7N0f807TBAzXDEsxW2 7Yf6yhNoyHRUc wJAYrF0kvzzog0xplpywO wPxLQGbLBi0NTa7PDCumH sfYpRoQUO8UgE7FXU7yEP zaB2xxCfhawyw cR9yKwu+CuVwWTjbIM54A L96yUMwt0K2cVO6Y4TmVF RdhxgjhsqnbJN8RWMqCQD twX61aULqCPej Qk6ze6G1o491ZHWtJBCqn I18Nh4yqQgzEREfaMWSpU 1gnsgbj9cjfszwTvYyLWG aTCr5LRw8IUZb zCstMaArAHK3SxG5WJO4b XHjfU6zjRbljpavwH5uIu c+J4R7kEB9hPQjoKomfKO +GW55rj02B1Wg FxkkIfg5KEWkCTA8mWS4l Z1jZWLmENian9F6rQX4B9 ZyyrDjpg6gz8svMMRfIYp hX32bmMSuf3H1 DDUtcQF4HOQwkJjlPtEoq G93Oyc+TFAmmRupd8DqLt nam2ztb9sknMp3VrXmRKQ gdmFsaWduPSJ0 r9GqRe07H81dFMahYYMrM OCoUBBrMZQicRqqyc4piB 9wIi8+FNZhqNP3xCR1oD9 uWwKsHtJ5ATqz L164UdAlrYBeTqpcl9xrh 3arvYz8TsKvPHLgzsKcxH gtWAB5n5WkBz41C0RqgEr hv2YkRjm2lb31 wXYya1B8aJW5S9PuRBFvn yhjuXFuoXliRV3iERUvpm vlGZYytR6bYJBbG7m4NyV hSyR6MCuzX8Hj kuZ7ITKdtXAjWETlfLVEv W0dghndb0zdhqmgVqDhXD AdTYq0ZVz8JCIlrErzMqC sDTE1JqI6ERG4 vNFmiH2hrTyhumabvD7kZ yc+DGr6i6cbaOSvJJ9zwV Q1QG24TX18pHHxf9T3eLM 3D7SiHKAonsti vkdkzLK7JKWnPJTytV32V h7otKarFl7iCEIlCQX3QX KmgMEbY0BurP1jSzQiCCI hUJIhT3JgcSOj PYzgA496MAtpHfR4SATnx iUwW8MiGVCyvIztVhR2c1 Z3Rg7LYV47IC97ET70bWM rd9H2fWW1J4Im FOGknswbeutpvUQ9EWJaY NYdcC64Fe0irVyfRd5aHY SxFTC1WQRsaUXjR7QbnM9 yOiAjMDAwMDAw F2WccRQkRInsL880URhqQ lJ7XBJeibKwG5SvUYAmfZ rlAyQ1l8U5Hv8SZx70VC8 3AL48kONze4E4 bCA6B6TsOSKjazmdzdcax VZ4DJGhRJWniZ01Jg3rcN oqCz5dIFVcXPY4NGUsrVR dG0UkwB8cWiYa DCTaAEBqX2HdzYUsCHwiY 630HItnUsK1ZULpupAfI7 GvKAImvWvgTvU5r5V7Kp1 LXVysitm3Z1Uw PjwvdHI+UV97NBEzWI46c WNvdRBri1jyrGu6GlKxED HmICH1mAxuWUtpx2SsOEG mR77sbRUpd8O5 IGNv (more content not included)... Normal [place] Coding Summary. CD:[id number] G h0bWw+PGhlYWQ+CA0PBGT qT67zvRYtqJ5NS3gSYJ6D JLBRLESRZH4PZD9jiWM1N TjuZ5SrtuOm JpzvzOPmDQ21VPq6YHZ9o WxoGWhtoZ5isIKeI8p0Cf LnVT45aD85NUbjCSYdEjL 3LjZpbjsgbWFy J0nuHbOxvQEfQrp+PHRhY mxlIHdpZHRoPScxMDAlJy UzlXpyJJ4iTk4iDOYoRDN vbGxhcHNlOiBj g6heRRVpYFedSD7ldSadJ 0LexEZ2XWHrp4y9Np86pI I+GDQaMFF6vKaaTHznq75 2DcJjs7sfZAK9 jYUnDYxfBRH5M54wu0G2Z IYgDRAxYDX2iSV0sI2osE ymxjfeL9PnfSCrEyZ3AKK 7eABpwZ7hwLdu tchkmU5vRvn+U86EKA6VW ROJAQ5HDte0J7KfEovunN I+NE29DXFeIC19iZLcvAG nf7ajrRq8AoBn HMUjIIW1rHmhLXwwq1DqU CXaB53iuMVvt1I2NEEpfY fdkJHuJtSifVW6oZ2iLRo dxkufi8htgntt Okzcf4hzhd51cZ02Q80rB GnnOPDaHGZ2OUBiBHEfnU iidn6eaJ9mOs0+ZVscb5q no2nvlNd7TiEz WIZuxjIkoAwaYRF1a7XiQ t74N8WbaKuor5OyYcz6ar 15pKDih4B6xUG5ZZfbISD vdG9cZDmpEoN3 BPGpPdEpxA91pOThUAbjF z4itOikoIdaRV6oQOYngt bsMMQnsA9lKHBxvIDjdRk qPR3uTXEpzqki b761TaTgIJP5SOSejTVyJ 5KfcH0tLiIlWIGeWEMoG6 HrdFQnXXncV495OGpkXhS 8YLWwwySiX6Eh HNOwdErtFeW5o6F0Fs4Tv 8QeowbtAYU5JAtmBSKiEz P1AiWgReA2L6NaVye9WVK jzCxsQC1cC5Zc KVWzxlwadqjzqOA1EBHpX QSscH29tCWaHTecNh3cr6 K8o826FPEcRNSgvY69Me6 udDogMTBwdCBU jN1nhcmmf0uitjveKfVtC ZGaUZf2MCe6MFZqdKmiRt KtLQU7PqF8QOC9iCWdgF5 ypMnlitpduR9i Oyc+V17azN4nDSS0QVN5s rdaIXLwpwEjVT19FB71W4 RyPjwvdGFibGU+PGRpdiB swElbCQ6vXgKk n0ucp3ZaDHcwT0NxWEShN GsiLdu0FYJaCQR3eDX4iD 6cFPLaPTlsw4L5lSF8M0P uaoZqgz4sc9rd VRUvFEbhX73rkGOpf3O4V CMboCK5USDknKtaFlFdcF 93Oyc+PMSlpQlou4XvFbb ld3two8lqlIv2 WvYsIHAkfrCciCqpPCE6y 0SuQb47S23qMRotXKPlIW SzMCMvXISwzAmtgl8qeA4 wIi8+PGNvbCB3 vIH5nF1dMCHuEvH0EVsnC 857EnDxhLIoCgiyo2hkh2 ylcJf3MiJaFSNhaoPvsPp kMMC9w3QiAp62 Q23kLHlrUDDjLZVoHLSaP MLfaVcecj7xxB3uYg2+PC 1dj8lpat66jI06fJU+PHR eZMY7qPbrFVdn UHRviT0cMZloEbR5SLGeX jJirX96kSTsPBnhIt6qcW ubhTzbAG7oNTMaidicj41 6ChAkm3rtQGWz pDDxIIziQOK2J43hd3O9U FYoVRCiUHL4eND4cX9mzX lnbjogbGVmdDsgdmVydGl tYXnsLRnkC002 IHRvcDsnPlBhdGllbnQgT jQpQFt6D7FzYve3TWAcrN yvHN6dySRgQVanHf8ckQf npBthUW1yQENr lkehd297AbYol6uhECLgz LXrGGxtIXM5D90fq1I2JC XeSSClXOT0eOG6eJ7jvQt nbjogbGVmdDsg idAaeZqaBSsgLNroH355C HRvcDsnPkJpcnRoIERhdG R4GU33PZ87wBCrb1P2vXT 9T8TnQTJjpqaf qkzxrZC6UCOtFQVrfZ72G y3uzEbyQo5dPQPlHUA0KV MbkICgA1XlbH2gThMnRXB cDGJbJ2XlqAOp MAmtI360TOmyAbC8BSYve kAsF4HsIYUidLhzDqW7y4 H0Vl5QV9P6VK07OH10mVE sm4Y0gZX8N0Zs OUThuwhwrmaicOM0ZHEbN XWyiK30Qj2xnOvfBi1aDS TyFBI5YBRjuRGnI0YszP9 yOiAjMDAwMDAw Z4CozFYmZSsfM814URdrQ lG3TAOkruAfU7GvAFSjdX toCuB4l5W9Vh9HSTi5ZF6 5RU65dERit6P6 kVP0E6KpXQTdrvsnnvqep TE4AROxADLknU45Ws2kcU etRe6eIGNhILT4VJZwxJD jL0PzrT4cJsEn RFIeSHSsU6DgzEFcTHtuN 125APscWsA2HCYylyEhC6 SvSCJvlGowMoS3w2I5Vu6 GOWHjNK08QUM3 kOC2XW96PL48D7OkGoyqq GFibGU+PHRhYmxlIHdpZH RoPScxMDAlJyBzdHlsZT0 cHg1gHSMbCKHu sPucsHPiOjLlg5llVCUgD OkjOQ2dtSgiM3ZywEO3GT Hhc0p4Yn13J85nG9IjvQW +ZESvfLV1zQK7 zW2jZiOkIqR7TNwcK898Y wYwiSKmSwkut5ccp8lhmR x9JsW6EKZqnjYixDqyISD 0c5KwBx50W84i IHdpZHRoPSIxNSUiIHZhb Fplve7cuV2yVx7+PGNvbC V4mZA2yB0pWnRyPjX8KZd bU859OgRspSCk Uztfr2vlp4huwJa7FuXoN UKptcTihMjpEHV0e0RkZa 23O6DyqEfaj2TbJvd6nn6 7hIWtu3Y3pHX7 F9GwQHKukypuaJRxyXbiA T7zMQThexauQLHidR8eCL AgM9y3FcYpGyT1ZNcbG2D bbqQ8HUZatFFl WNvnTRF7E08uo4S9VPUhY NKmJEP3fDL9hI7ioJkxvy ogbGVmdDsgdmVydGljYWw zCDmuN287HBJy gZgwPPZzhL8gFFWyhWEbf SzoVC0kTNJkieejOobJPS KlQSvHNHAKRT51RG57cOA ss5E7zWY9Z6Ow BIUpxvzlhgxqoQM9FPDtR ATurD28wWDpAAtkCk6sp1 O1e810OFCqGEAgfB98Ev3 udDogMTBwdCBU vO4pxluvu4arnigdRqAyV JVsGSr6TXd2WCTtzYkdBz NbQXG9CeH0KUQ8wJWxvD3 zxXjvwmztxJ0y Oyc+BEGhShdzDGj0PJcry GQ+CNJcICB4cEtfRGarMS UbnB6jPRWsT1j1OaHbCjX 8CZsrF4DzQFJi ighqXr79eT3xAeDyKfT7A JrzI4NcwpV6JUDotDGmVR rfNAW5H72ty1I4TJRrOBA gZQS6fUZ1lJ5v bGlnbjogbGVmdDsgdmVyd GlqNDufANbaB692LAGezM isYoOnGMniDAWzWZ88VE2 1hZLlg4M2cKZ6 O6DuKCRtnxmnsxolcTU8T APuBSZxlF71pSThKLtvUv 4pz0U3z446UTCrQFErcE9 9Ug9xtDttBYLk mMYNpN3cumybd1pizcaqM eMnQPRhGOv6BOq2ISBesF lxThKtLPL9WpX1BKL1aIS piA3wxNbehzml sE1yYop+EtOoDUgfVS65R X84jZPcd7Z9rFU6K2NaFX AuitqqmbbitGG8XWOrEDO zfG13mZVuONjr Se4jk2L7p584SJLpYQJyo I04Lx7etJyfULCdePYVbU 7ifqjms1steazlMjArNPI eFDz5ZAn7FZCb mVjsWvKqCET1OmO6ISS0n FVngM1apDzdmruntX6cYk c+RVOmSHSbw9Yke3WaOW2 8TO04T5GvUjnw dGFibGU+PHRhYmxlIHdpZ HRoPScxMDAlJyBzdHlsZT 6qUi1dWLOqXNMkcXfmtXO hMfOsy8wbQFKp DIaaZV2klKmrO0CfmEO8A XGxz1v9Rh83K84mZ7MzbP A+FSOxqJD2rPL1iW3mBkI bUbJ4ZUslG600 YeUkkDMdMxgfo6axc0vzi Ct2NkNnFFShipCguPjaMF M9k1XcUq70H08bJKzhJXV oPSIyMCUiIHZh hWwozt4isK9sSt7+PGNvb IL6xPA8dE5fNxGgIkS2OF reA892UpDbtXHhKpotQ27 pA2MweGG+PHRy Gpk0LHMevUtjMW9wgADhC JwfEu9kGKB9GhLbUxLtML luC4RyHXOsnddlmauddSH 0BOKaDSJbaV42 Kd1msVluLo8cTQKhAXX4I LCjbHDrW2PhbK5qEaJyUX YwGUElU8OdkHYoPOptI17 7RMccHvL4IHLe dbUkK1MvVWZayFcfLiF9y 8D5Xl1TcLaepLAfQI5jDd TfVZu4Y7AuQck0CQRkjWb vOT1ynHZyFLmq Am6vpGrdhKubKR3gAMMpg lfyz036IvMhn7agTEMsuW VcNGkpXYI3A65be1Y2WOK rIPGrJJA1gOU1 pD5hfCzqndshhQUmgRycb gPsfVksHJobXYcoE586MM MfhJznApDMMkm6U8OmAey 5UQMssDpxIS5e ySDsBVjpXs8ovTzjtTjeU H8bXZCeitmpt935SgVoz1 nbKWQelDSoLGmnFCI8P88 zh0I8NWAhSWRc FXT1zMU5oJ3zpZdmoakwg GVmdDsgdmVydGljYWwtYW lpN546GJUbpNskDr5ILhc 9V7VsJxw6PHKp yWotQW3dhVChVBbbPe7hu GmlxVyqJN7yTKLdfgqxw4 21BvKvh7wcSTGucCWqGId oKMA5V66gp5U5 VBMbZNYtZHH5uKL0vQ3kb GlnbjogbGVmdDsgdmVydG kqVJrtRAtmO616PPJgrUy nPlBheWVyOjwv dGQ+CE87og03Z6PbSdxnS qp7QYKvFFS9nLG3sK5xWT KcGIvhh9A6mJG1Q0KqhgT qja7ph0krRDQj ZTog (more content not included)... Normal [facility] PAP [id number] 08-15-2021 Cytology report Cyto stain Doc (Cvx/Vag) Note Invalid Interpretation Code [facility] Comment on above: Result Comment: TEST S RESULT FLAG UNITS REF RANGE LAB Clinician Provided Cytology Information Source.............[employer] No. of containers..01 ThinPrep Vial DIAGNOSIS: 01 NEGATIVE FOR INTRAEPITHELIAL LESION OR MALIGNANCY. Specimen adequacy: 01 Satisfactory for evaluation. No endocervical component is identified. Performed by: 01 Sujey Engle, Order Entry Administrator (ASCP) . 01 Note: Note 01 The [...] <-Panic Low,>-Panic High,A-Abnormal,AA-Critical Abnormal Performed at: [address] [place] [address] Mar Rivera MD, Performed By: #### 1 [id number] #### [facility] [address] [place] [address] HPV 16+18+31+33+35+39+45 +51+52+56+58+59+66+6 8 DNA Probe+sig amp Ql (Cvx) Negative Invalid Interpretation Code Negative [facility] Comment on above: Result Comment: This nucleic acid amplification test detects fourteen high-risk HPV types (16,18,31,33,35,39,45,51,52,56,58,59,66,68) without differentiation. Performed at: [facility] [id number] MD Nicole Manuel Performed at: =G [facility] [id number] MD Nicole Manuel Performed By: #### 1 [id number] #### [facility] [address] [place] [address] Insulin Lvlon 08-11-2021 Insulin Qn 24.3 u[IU]/mL Invalid Interpretation Code 2.6-24.9 [facility] Comment on above: Result Comment: Perf ormed at: [facility] [address] [id number] PhD Archie Jha Performed By: #### 1 [id number] #### [facility] [address] [place] [address] Consent for Treatmenton 07-29 Consent for Treatment [id number]#1 .00CD:127 Normal [facility] Glu Fastingon 08-10-2021 Glucose [Mass/Vol] 95 mg/dL Normal 55-99 [facility] Comment on above: Performed By: #### 1 [id number] #### [facility] [address] [place] [address] Physician Orderon 08-10-2021 Physician Order [id number]# 1.00CD:127 Normal [facility] PAP [id number] 08-09-2021 Collection Technique BRUSH-SPATULA Normal [facility] Comment on above: Performed By: #### 1 [id number] #### [facility] [address] [place] [address] Gynecological Body Site ENDOCERVIX Normal [facility] Comment on above: Performed By: #### 1 [id number] #### [facility] [address] [place] [address] Physician Orderon 08-09-2021 Physician Order [phone] [id number] Normal [facility] Gynecology Office/Clinic Not pratik 02-17-2019 Gynecology Office/Clinic [...] Family History Family history is negative Normal [facility] Comment on above: Result Comment: Elec tronically [...] Family History Family history is negative Normal [facility] Comment on above: Result Comment: Elec tronically Signed By: Shamika ISAACS, Kaley Pablo.david\Date and Time Signed: 02/17/19 12:09 EDT Vital Signs Date Time Vital Sign Value Performing Clinician Facility 01-02-2024 09:15-0400 Body height 157.48 cm [facility] 01-02-2024 09:15-0400 Body mass index (BMI) [Ratio] 33.9 kg/m2 [facility] 01-02-2024 09:15-0400 Body temperature 100.2 [degF] [facility] 01-02-2024 09:15-0400 Body weight 84.08 kg [facility] 01-02-2024 09:15-0400 Heart rate 115 /min [facility] 01-02-2024 09:15-0400 Respiratory rate 18 /min [facility] 01-02-2024 09:15-0400 SaO2% (BldA) [Mass fraction] 99 % [facility] Encounters Encounter Date Encounter Type Care Provider Facility Start: 04-27-2024 End: 04-27-2024 ambulatory LUIS DOTY Not Available Start: 03-27-2024 End: 03-27-2024 ambulatory LUIS DOTY Not Available Start: 01-02-2024 End: 01-02-2024 ambulatory JOHNNY FERNANDEZ Not Available Start: 01-02-2024 End: 01-02-2024 ambulatory [facility] Work Phone: Start: 01-02-2024 End: 01-02-2024 Patient encounter procedure [facility] Work Phone: Start: 11-27-2023 End: 11-27-2023 ambulatory LUIS DOTY Not Available Start: 07-26-2022 End: 07-27-[address] LUIS DOTY . Facility:[facility] Start: 07-12-2022 End: 07-12-[address] LUIS DOTY . Facility:[facility] Start: 06-28-2022 End: 06-29-[address] LUIS DOTY . Facility:[facility] Start: 05-31-2022 End: 06-27-[address] LUIS DOTY . Facility:[facility] Start: 05-17-2022 End: 05-18-[address] LUIS DOTY . Facility:[facility] Start: 04-28-2022 End: 04-29-[address] LUIS DOTY . Facility:[facility] Start: 04-04-2022 End: 04-05-[address] LUIS DOTY . Facility:[facility] Payers Date Payer Category Payer Unknown [id number] 2021 Unknown [id number] 1999 Unknown [id number] 2.16.84 0.1.641967.3.579.2.593 1999 Unknown [id number] 2.16.84 0.1.738107.3.579.2.593 1999 Unknown [id number] 2.16.84 0.1.914255.3.579.2.593 1999 Unknown [id number] 2.16.84 0.1.071909.3.579.2.593 1999 Unknown [id number] 2.16.84 0.1.542917.3.579.2.593 1999 Unknown [id number] 2.16.84 0.1.396311.3.579.2.593 1999 Unknown [id number] 2.16.84 0.1.290254.3.579.2.593 1999 Unknown [id number] 2.16.84 0.1.171969.3.579.2.1259 1999 Unknown [id number] 2.16.84 0.1.220355.3.579.2.1259 1999 Unknown [id number] 2.16.84 0.1.014148.3.579.2.1259 1999 Unknown [id number] 2.16.84 0.1.063628.3.579.2.1259 1959 Private Health Insurance [id number] 1959 Unknown [id number] Social History Date Type Detail Facility Tobacco smoking stat [facility] Unknown if ever smoked [facility] Work Phone: Start: 2000 Sex Assigned At Female F [facility] Evaluation note Note Date & Type Note Facility Evaluation note No assessment information availa orlin [facility] Work Phone: Summary Purpose Family History No [...] section and content) DATE CREATED AUTHOR 03/06/2019 [facility] DATE CREATED AUTHOR AUTHOR'S ORGANIZ ATION 12/21/2021 [facility] DATE CREATED AUTHOR AUTHOR'S ORGANIZ ATION 12/01/2022 [facility] DATE CREATED AUTHOR AUTHOR'S ORGANIZ ATION 04/27/2024 [facility] [employer] Care Teams (unrecognized sec tion and content) Team Status: Active Member Role Status Dates Damon Stover DO Primary Care Provider Active Team Status: Inactive Member Role Status Dates Damon Stover DO Primary Care Provider Active Start: January 02, [...] BE BASED ON THE PRIMARY CLINICAL RECORDS. [employer] provides no warranty or guarantee of the accuracy or completeness of information in this document.
== END 2024-05-05 14:52 | disposition home or self-care (01) ==
LOC: NOMS 14:51
PROVIDERS: PCP Family Medicine; Visit Provider Obstetrics & Gynecology
DX: Z36.86 Encounter for antenatal screening for cervical length (principal); Z3A.15 15 weeks gestation of pregnancy
CPT/HCPCS: 76817

== ENCOUNTER 2024-05-25 21:07 | Outpatient (REF) | payer OTHER, BC, SELFPAY ==
--- OUTSIDE RECORDS SUMMARY | 2024-05-25 21:12 | XMS_ITS | CCD ---
Author Organization [facility] Care Team Providers Care Early Breastfeeding Care Specialist Name Role Phone YOBANI ., DR SMITH Admitting Unavailable YOBANI ., DR SMITH Attending Unavailable GRANT, DR KAYCE Watson Primary Care Unavailable YOBANI ., DR SMITH Consulting Unavailable YOBANI ., DR SMITH Admitting Unavailable YOBANI ., DR SMITH Attending Unavailable GRANT, DR KAYCE Watson Primary Care Unavailable ZULEIMA, DR CLEMENTINE Mayo Consulting Unavailable YOBANI ., DR SMITH Consulting Unavailable YOBANI ., DR SMITH Admitting Unavailable YOBANI ., DR SMITH Attending Unavailable YOBANI ., DR SMITH Consulting Unavailable RUDY, DR KAYCE Watson Primary Care Unavailable NEREIDA, DR LUCHO Johnson Consulting Unavailable YOBANI ., DR SMITH Admitting Unavailable YOBANI ., DR SMITH Attending Unavailable YOBANI ., DR SMITH Consulting Unavailable RUDY, DR KAYCE Watson Primary Care Unavailable YOBANI ., DR SMITH Admitting Unavailable YOBANI ., DR SMITH Attending Unavailable ZULEIMA, DR CLEMENTINE Mayo Consulting Unavailable RUDY, DR KAYCE Watson Primary Care Unavailable YOBANI ., DR SMITH Consulting Unavailable YOBANI ., DR SMITH Admitting Unavailable YOBANI ., DR SMITH Attending Unavailable RUDY, DR KAYCE Watson Primary Care Unavailable YOBANI ., DR SMITH Consulting Unavailable YOBANI ., DR SMITH Admitting Unavailable YOBANI ., DR SMITH Attending Unavailable RUDY, DR KAYCE Watson Primary Care Unavailable YOBANI ., DR SMITH Consulting Unavailable YOBANILUIS Attending Unavailable JOHNNY FERNANDEZ Attending Unavailable LUIS HILTON Attending Unavailable Kayce Grant MD Primary Care Provider [phone] Allergies Allergy Classification Reported Allergen(s) Allergy Type Date of Onset Reaction(s) Facility (2 sources) Latex Drug allergy (disorder) 0 hives [facility] (1 source) orange flavor Drug allergy (disorder) 0 [facility] (1 source) Morrill - 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 [facility] (1 source) Latex 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 4 Hives, Itching, Rash, Swelling [facility] (1 source) orange allergenic extract Drug Allergy 4 [facility] Work Phone: Medications Current Medications Medication Drug Class(es) Dates Sig (Normalized) Sig (Original) acyclovir 800 mg oral tablet (1 source) Herpesvirus Nucleoside Analog DNA Polymerase Inhibitor, Herpes Simplex Virus Nucleoside Analog DNA Polymerase Inhibitor, Herpes Zoster Virus Nucleoside Analog DNA Polymerase Inhibitor Start: 11-26-2023 take 1 tablet by mouth in the morning acyclovir (Zovirax) 800 MG tablet Take 800 mg by mouth in the morning and 800 mg before bedtime. 11/26/2023 Active amoxicillin 875 mg / clavulanate 125 mg oral tablet (1 source) Penicillin-class Antibacterial Start: 01-02-2024 take 1 tablet by mouth twice daily Amoxicillin-Pot Clavulanate Active 1 TAB PO Twice daily 20 10 January 02, 2024 12:00am [facility] [employer] [facility] (1 source) Start: 03-24-2024 [facility] [employer] [facility] misc Indications: Female infertility 1 each if needed (1 large container) 1 each 1 03/24/2024 Active estradiol 2 mg oral tablet (2 sources) Estrogen Start: 12-31-2023 take 2 mg by mouth once daily Estradiol Active 2 MG PO Daily January 02, 2024 12:00am ibuprofen 600 mg oral tablet (1 source) Nonsteroidal Anti-inflammatory Drug Start: 01-04-2023 take 1 tablet by mouth every six hours ibuprofen 600 MG tablet Take 1 tablet by mouth every 6 (six) hours 01/04/2023 Active labetalol hydrochloride 200 mg oral tablet (3 sources) beta-Adrenergic Kyle Start: 01-02-2024 take 100 mg by mouth twice daily Labetalol Active 100 MG PO Twice daily January 02, 2024 12:00am Start: 11-29-2023 take 200 mg by mouth once simon y Labetalol Active 200 MG PO Daily January 02, 2024 12:00am letrozole 2.5 mg oral tablet (1 source) Aromatase Inhibitor Start: 01-02-2024 take 2.5 mg by mouth once daily Letrozole Active 2.5 MG PO Daily January 02, 2024 12:00am metFORMIN hydrochloride 500 mg oral tablet (1 source) Biguanide Start: 04-30-2023 take 4 tablets by mouth once daily metFORMIN (Glucophage) 500 MG tablet Take 2,000 mg by mouth Daily 04/30/2023 Active Multiple Vitamin (multivitamin) tablet (1 source) take 1 tablet by mouth once daily Multiple Vitamin (multivitamin) tablet Take 1 tablet by mouth Daily Active norethindrone acetate 5 mg oral tablet (1 source) Start: 01-02-2024 take 5 mg by mouth once daily Norethindrone Acetate Active 5 MG PO Daily January 02, 2024 12:00am predniSONE 10 mg oral tablet (2 sources) Start: 01-29-2024 take 5 mg by mouth once daily predniSONE (Deltasone) 10 MG tablet Take 5 mg by mouth Daily 01/29/2024 Active Start: 01-02-2024 take 10 mg by mouth twice simon y Prednisone Active 10 MG PO Twice daily [...] Translations: [POLYCYSTIC OVARIAN SYNDROME] Onset: 04-04-2022 Chronic Other and delivery including normal (1 source) Second trimester ; Translations: [Encounter for supervision of normal , unspecified, second trimester] Onset: 04-27-2024 04-27-2024 Episodic Residual codes; unclassified (1 source) Gestation period, 14 weeks; Translations: [14 weeks gestation of ] Onset: 04-27-2024 04-27-2024 Episodic Thyroid disorders (1 source) Nontoxic single thyroid nodule; Translations: [NONTOXIC SINGLE THYROID NODULE] Onset: 04-08-2022 Chronic Unclassified (1 source) OB Reminders Onset: 05-18-2024 05-18-2024 Past or Other Problems Problem Classification Problem Date Documented Da te Episodic/Chronic Contraceptive and procreative management (4 sources) Encounter for other procreative management; Translations: [ENC OTHER PROCREATIVE MANAGEMENT] Onset: 07-26-2022 Episodic Ovarian cyst (4 sources) Other ovarian cyst, left side; Translations: [OTHER OVARIAN CYST LEFT SIDE] Onset: 05-17-2022 Episodic Results Test Name Value Interpretation Reference Range Facility PROGESTERONEon 07-27-2022 Progesterone 26.9 ng/mL Normal [facility] Comment on above: Result Comment: Foll icular phase 0.1 - 0.9 Luteal phase 1.8 - 23.9 Ovulation phase 0.1 - 12.0 First trimester 11.0 - 44.3 Second trimester 25.4 - 83.3 Third trimester 58.7 - 214.0 Postmenopausal 0.0 - 0.1 Performed By: #### P ROGES #### [facility] [address] [place] [address] Dr. Ryan Francisco PREG QUANT HCGon 07-12-2022 HCG QUANT <1 Normal [facility] Comment on above: Performed By: #### P REGQNT #### [facility] [address] [place] [address] Dr. Ryan Francisco HCG RANGE SEE BELOW Normal [facility] Comment on above: Result Comment: 5-50 0.2-1 WEEK 50-500 1-2 WEEKS 100-5,000 2-3 WEEKS 500-10,000 3-4 WEEKS 1,000-50,000 4-5 WEEKS 10,000-100,000 5-6 WEEKS 15,000-200,000 6-8 WEEKS 10,000-100,000 2-3 MONTHS Performed By: #### P REGQNT #### [facility] [address] [place] [address] Dr. Ryan Francisco XR HYSTEROSALPINGO EXPon XR [...] by: CLEMENTINE DEWEY Date: 2022-07-12 12:34 Normal [facility] PROGESTERONEon 06-29-2022 Progesterone 4.6 ng/mL Normal [facility] Comment on above: Result Comment: Foll icular phase 0.1 - 0.9 Luteal phase 1.8 - 23.9 Ovulation phase 0.1 - 12.0 First trimester 11.0 - 44.3 Second trimester 25.4 - 83.3 Third trimester 58.7 - 214.0 Postmenopausal 0.0 - 0.1 Performed By: #### P BRETT #### [facility] [address] [place] [address] Dr. Ryan Francisco PROGESTERONEon 06-01-2022 Progesterone 18.9 ng/mL Normal [facility] Comment on above: Result Comment: Foll icular phase 0.1 - 0.9 Luteal phase 1.8 - 23.9 Ovulation phase 0.1 - 12.0 First trimester 11.0 - 44.3 Second trimester 25.4 - 83.3 Third trimester 58.7 - 214.0 Postmenopausal 0.0 - 0.1 Performed By: #### Johnathon WEST #### [facility] [address] [place] [address] Dr. Ryan Francisco US PELVIS AND TRANSVAGon [...] by: CLEMENTINE DEWEY Date: 2022-05-17 17:25 Normal [facility] PROGESTERONEon 04-29-2022 Progesterone 5.1 ng/mL Normal [facility] Comment on above: Result Comment: Foll icular phase 0.1 - 0.9 Luteal phase 1.8 - 23.9 Ovulation phase 0.1 - 12.0 First trimester 11.0 - 44.3 Second trimester 25.4 - 83.3 Third trimester 58.7 - 214.0 Postmenopausal 0.0 - 0.1 Performed By: #### P BRETT ####[facility] [address] [place], [place] [address]Hq. Ryan Francisco ANTI-MULLERIAN HORMONEon Anti-Mullerian Hormone (AMH) 6.09 ng/mL Normal [facility] Comment on above: Result Comment: For assays employing antibodies, the possibility exists for interference by heterophile antibodies in the samples.1 1.Steffen Wilson Interferences in Immunoassays - still a threat. Clin. Chem. 2000; 46: 4320-0362. This test was developed and its performance characteristics determined by [employer]. It has not been cleared or approved by the Food and Drug Administration. Reference Range: Females 20 - 25y: 1.23 - 11.51 Median 4.70 AMH concentrations of >= 1.06 ng/mL is correlated with a better response to ovarian stimulation, produced more retrievable oocytes and higher odds of live according to Herber et al. Fertility and Sterility. 2010: 94:0401-4262. The current AMH test method correlates with [...] tumor. Performed By: #### A WEI #### [facility] [address] [address] [address] Ryan Francisco FSHon 04-05-2022 FSH 3.6 mIU/mL Normal [facility] Comment on above: Result Comment: Adul t Female: Follicular phase 3.5 - 12.5 Ovulation phase 4.7 - 21.5 Luteal phase 1.7 - 7.7 Postmenopausal 25.8 - 134.8 Performed By: #### L BCFS #### [facility] [address] [place] [address] Dr. Ryan Francisco LUTEINIZING HORMONE (LH)on 0 04-05-2022 LH 6.8 mIU/mL Normal [facility] Comment on above: Result Comment: Adul t Female: Follicular phase 2.4 - 12.6 Ovulation phase 14.0 - 95.6 Luteal phase 1.0 - 11.4 Postmenopausal 7.7 - 58.5 Performed By: #### L BCL ####[facility] [address] [address]Dr. Ryan Francisco CBC AUTO DIFFon 04-04-2022 BASO # 0.0 103/ul Normal 0.0-0.1 [facility] Comment on above: Performed By: #### C BC #### [facility] [address] [place] [address] Dr. Ryan Francisco Basophils/100 WBC (Bld) 0.3 % Normal 0.2-2.0 [facility] Comment on above: Performed By: #### C BC #### [facility] [address] [place] [address] Dr. Ryan Francisco EO # 0.1 103/ul Normal 0.0-0.7 [facility] Comment on above: Performed By: #### C BC #### [facility] [address] [place] [address] Dr. Ryan Francisco Eosinophils/100 WBC (Bld) 1.7 % Normal 0.9-7.0 [facility] Comment on above: Performed By: #### C BC #### [facility] [address] [place] [address] Dr. Ryan Francisco Erythrocyte distribution width (RBC) [Ratio] 12.7 % Normal 11.0-15.0 [facility] Comment on above: Performed By: #### C BC #### [facility] [address] [place] [address] Dr. Ryan Francisco Hematocrit (Bld) [Volume fraction] 39.7 % Normal 36.0-48.0 [facility] Comment on above: Performed By: #### C BC #### [facility] [address] [place] [address] Dr. Ryan Francisco Hemoglobin (Bld) [Mass/Vol] 13.4 g/dL Normal 12.0-16.0 [facility] Comment on above: Performed By: #### C BC #### [facility] [address] [place] [address] Dr. Ryan Francisco IG # 0.03 10e3/ul Normal 0.00-0.03 [facility] Comment on above: Performed By: #### C BC #### [facility] [address] [place] [address] Dr. Ryan Francisco IG % 0.5 % Normal 0.0-0.5 [facility] Comment on above: Performed By: #### C BC #### [facility] [address] [place] [address] Dr. Ryan Francisco LYMPH # 1.6 103/ul Normal 1.2-3.8 [facility] Comment on above: Performed By: #### C BC #### [facility] [address] [place] [address] Dr. Ryan Francisco Lymphocytes/100 WBC (Bld) 27.1 % Normal 20.5-60.0 [facility] Comment on above: Performed By: #### C BC #### [facility] [address] [place] [address] Dr. Ryan Francisco MANUAL DIFF REQ NO Normal [facility] Comment on above: Performed By: #### C BC #### [facility] [address] [place] [address] Dr. Ryan Francisco MCH (RBC) [Entitic mass] 29.6 pg Normal 26.7-34.0 [facility] Comment on above: Performed By: #### C BC #### [facility] [address] [address] [address] Ryan Francisco MCHC (RBC) [Mass/Vol] 33.8 g/dL Normal 29.9-35.2 [facility] Comment on above: Performed By: #### C BC #### [facility] [address] [address] [address] Ryan Francisco MCV (RBC) [Entitic vol] 87.6 fL Normal 81.0-99.0 [facility] Comment on above: Performed By: #### C BC #### [facility] [address] [place] [address] Dr. Ryan Francisco MONO # 0.4 103/ul Normal 0.3-0.8 [facility] Comment on above: Performed By: #### C BC #### [facility] [address] [place] [address] Dr. Ryan Francisco Monocytes/100 WBC (Bld) 6.7 % Normal 1.7-12.0 [facility] Comment on above: Performed By: #### C BC #### [facility] [address] [place] [address] Dr. Ryan Francisco NEUT # 3.7 103/ul Normal 1.4-6.5 [facility] Comment on above: Performed By: #### C BC #### [facility] [address] [place] [address] Dr. Ryan Francisco Neutrophils/100 WBC (Bld) 63.7 % Normal 43.0-75.0 [facility] Comment on above: Performed By: #### C BC #### [facility] [address] [place] [address] Dr. Ryan Francisco Platelet mean volume (Bld) [Entitic vol] 9.9 fL Normal 9.5-13.5 [facility] Comment on above: Performed By: #### C BC #### [facility] [address] [place] [address] Dr. Ryan Francisco PLT 421 103/ul Normal 150-450 [facility] Comment on above: Performed By: #### C BC #### [facility] [address] [place], [place] [address] Dr. Ryan Francisco RBC 4.53 106/ul Normal 4.20-5.40 [facility] Comment on above: Performed By: #### C BC #### [facility] [address] [place], [place] [address] Dr. Ryan Francisco WBC 5.8 103/ul Normal 4.0-11.0 [facility] Comment on above: Performed By: #### C BC #### [facility] [address] [place], [place] [address] Dr. Ryan Francisco FREE T4on 04-04-2022 Free T4 [Mass/Vol] 0.99 ng/dL Normal 0.76-1.46 [facility] Comment on above: Performed By: #### F T4 #### [facility] [address] [place], [place] [address] Dr. Ryan Francisco TSHon 04-04-2022 TSH 3.086 uIU/mL Normal 0.358-3.740 [facility] Comment on above: Performed By: #### T SH ####[facility] [address] [place], [place] [address]GmDr. Ryan Francisco US PELVIS AND TRANSVAGon US [...] by: LUCHO PADRON Date: 2022-04-04 16:38 Normal [facility] Auth for Release of Medical Recordson 12-20-2021 Auth for Release of Medical Records [id number]#1. 00CD:127 Normal [facility] Coding Summary.on 08-22-2021 Coding Summary. CD:[id number] G h0bWw+PGhlYWQ+ZT7RZFU qN92jgBNsnV1WX9nOOZ7F BFJTTNCBKJ7CEC1bsHP8C FpcR1NagtTv JrcllVOfTK20DDy3ZTQ1i QmsXBfzhD4yoQVfN5c2Lg BsEU57fN30UGzyPMDgAaB 3LjZpbjsgbWFy E1urQmWhpGZcNih+PHRhY mxlIHdpZHRoPScxMDAlJy AouWrbJO7nTq3aQXGiCBR vbGxhcHNlOiBj y0fyXBZlYVfpPO1ixWnhR 9DxtLM5OFDgs4w0No01wZ I+JUIqPNB1pRmtHYkuk95 5AfNjb0ciHHZ1 aVTdANrkSNY5D36tx7D7Z KFxGHSzVUP1eIN8cD2fmK rcjoxtG2ZdpENpXpK9ADU 8fBStfC5zgKyg zwvcnF6uAig+R67GGR4LS BTUSL1ZHgp5S5DoAntrtV I+QC37MYDvOU06vQIzuUT uq2pecDx6OjSf QEWeBLC3cKrjQYkoy2GcI SXdM46paFBot1T4YATqpG chwZPpTwWeaXG6hN6jRHy luyldq2jezdml Qxltb2hker64oB96J44wG XooFMTaPRK5QJWtIXCfzY tnfg2cqF4uNd3+FCosl6n je4scfEf9XaLn RBGoiuErlFyqRQK3m8WtZ o72Y2FjkAyvi6EwEup0zv 56pPOoa1W3wOM9ZTldSND lhH6cZUpuJtR0 MJUgAkHetY44qRRcVYpzI s7yaRrkqHxiKO1mBLPppr flQQFaiL9kAVBfuBPnhKg cIF3yDOSllswk z599RuIfQPG5HWFftRLyK 9ZquX8tGyMxMYJnZFKzQ2 OstUQrPIgsB584QOwhJnN 7IVBvnhUtZ1Gn JJNsxOinObR6m3E6Aq6Vo 2SjeaqlMAW2CIvhBMOvRe T9SrThApN5V7IePey8ZDW vzKwpEN8lA3Ya ACGyllhtmxxgrDX2CFYaP ANdaR56cLKaSHyrCl1ni4 S8m013UUWqEUXjsF25Sb5 udDogMTBwdCBU qB2zianwl0khylrgQiTlW ZAeCVg5SIn6UCKwhNydCl VmSAD9XfG1LUP4rYFukB6 yxXvbgtvksO8h Oyc+D36qzJ8mEAM9YYN8j kzpPVTnkwQeAC46TR83E3 RyPjwvdGFibGU+PGRpdiB leGdbNA3cYsSy z0hpu7FkIQrsN3BkBIMlX KseZrz2YGSoGHY7nBD1iX 4gKJZeIWlyv0F1kFF8D9L hdyVsfq3hm3dk WJOjQLhfP81adNQoi9E0H ULfwOM6CWKerCuaTvAezC 93Oyc+KMJkpVcby9QlNwo gv7teo7mjsMr7 VcImUILonxYywEhtYMC8x 9EwIq10Z66fSVjvPZTeVG AnCQGaNXUggIbuwf1plO7 wIi8+PGNvbCB3 aCC5cJ7uAPYcFuM2HMqnS 990RgOjqNBfIjkfy7nru1 mtcNg5BrDzUAUbyvDqeOo hXKI0g0ZnUj79 B82wRNrtJVFaRXOmJNFkD UUohZcqmy7epS1dWn3+PC 8zr2xkte77fK15zXK+PHR oNLJ1sCzrEFiw TCHeiX7qLZfmSuV9IHPuK rCekK26lOQyVKpnVw8keF ajrJufRM5dOWGpbwsha52 9JgPhc6mpQJVv wZCwHCyiRGC1U66us5H0V ETnRADfJFB7sIR6wB5ibK lnbjogbGVmdDsgdmVydGl mJAjlSHssG269 IHRvcDsnPlBhdGllbnQgT jSvYVe8G3QcYrq8FPEpvW mjIK4xsIFmESgjSq3adFy byRrjGN2vRAAq ekhtf765IlXhl7pfGIKac AKmTMarYSJ4G94hp7T4TJ YqVWFrRGF9jIL5iJ6mqYp nbjogbGVmdDsg afAcdMxiCRpjOTzvE824A HRvcDsnPkJpcnRoIERhdG K0ZN63WE73bSSkk1U9xGH 6T4FoJXXlfkvd dfurlQS5ZGEgGBPfbS84X t1nvQzeGx5fQMHgNJE6GR MyyWLlD2DzgR0gWrRjEXK aBUGnP9PlhRZg WJfkN099MQakYoW8WKIiz wYoE8SoXUHjiPwjCwH1w1 Z1Zz3VQ2P8VT86RR71zRF kq7I6fFW3V2Lg EWPrbmyjosumgFH1RWXfP CSlpD84Zy5cpYxmVi8lNT VuNVR3DCMhbHJkH0ZucK3 yOiAjMDAwMDAw B8EayZDlLMczC828THofA vO8AMXgqtTgG6DtMWCeeX tlYaL0d1H9Ov3NKMl8XR9 2UA38dDRen2H0 pBB1X9LcYJRndygjbhrmc HC8WNDhMFSogJ86Jk7wqK gjRz7xWPIjDGI8NZZpkPQ wM5EmaJ6dNeIy IYWzSZPdF3DhdGJwBCwmL 934EHxoSbW1RLWbyrZcQ6 FnSXUhrYulJuV1i0S9Hk2 CMURjYR60YQW6 cAJ1CC86HM18U1IlPgrza GFibGU+PHRhYmxlIHdpZH RoPScxMDAlJyBzdHlsZT0 mYw7sHLRpYKJb qLuvsEPpVnRxj8ueLPIdY FmqTE9tkTucE6SlcZG0NO Jcq2l6Ik77G39oM7QbfNM +NDJyiRB0lVI9 oH1lNcUeUyL8CEejG067T tOuuPRnKfidn4aby4mklF a9GlU3TLPnmdBsyUrlNKT 1s2IrEu06C13j IHdpZHRoPSIxNSUiIHZhb Foibu6yeH5qJj8+PGNvbC P4nLN7yV0xBxJuDyN7ESj dK960PbYyiTBv Bisxx5mvi8rrlRv4LgAwH AQkevAkiHnsDFV4k8PgAo 45K8RedEndx6SfSbq1re9 6aSYpz3S8wDM1 R1DuNIWsemyeuJGjtBxcT C3hUQCcvprqMFGzqF2gJI OhJ6i5BiZjPfA8DVngH6N hraF4XIDhgMSb NStfGGR5Q26zw1B5PHYwX RBlLWQ8xUI3pH6fwIwxmr ogbGVmdDsgdmVydGljYWw oLXnhY897CIUr xUbiNEQguB8pSOMmdMJru AizNW8qIVRqovzmEopJND MxYTeIZGWEXP83VY66eER lt0B4eKM2R4Ra LJDpgfaoayurmPV1RDCmQ DGicO75kKPiDHwsCh8at2 L8f534JPDcYVJedM67Wh3 udDogMTBwdCBU rN6pwgpsv4isdizyGnToX QCcSDl9VKx3PKMzuTgjYt SeDNH5EtU2LCV4vMRdkA6 qoNizbckboA6n Oyc+MILyNjbjNSe8JZkfv GQ+DDNfACZ9aRqkIPmhPE NizS0qMMZbC6c2OcZfUxU 8ZPepF9KnCULp imwcXo37eS2rYoKqJwW5N OzcM7NzzdD7DWYjkMLjJF xtSKT5T09tx5W9RCDnVAJ tBYG2mBT0xZ8l bGlnbjogbGVmdDsgdmVyd DihARbbHUhgW616YNFlfI wtGcEnFRjdBPMiDU47ZI5 4xPBcl7B3lFZ5 X0YsQPTfcvobrfhtfTU6J GPoCNXfiF11wYFmBBmbAo 1ve3L8v958DODoKEJuhU5 0Zg1vdUzrPJEy dNQVjT0ntquyq7bmgyzxQ fJvVIBhEQt3UNc5ILLxtS uhHbQwUWZ8CsV0GTG5fIC frP3krTezbdfm mK9mQet+QeJsJSpeKM99D S98tXIjk5Q4yKP6H0SyVH JbuezriyehwEN9RSFoMAF slM69hCOgWBhb Ns3jp5I8v755WCQyREGrp L36Ob3ncIzcZATvnATFaI 6ygwjyo5mptirvEkLkPOO tGTg8YNh5PFXh bMzgXeDeHNS3TeZ7UUN7t UXtvK6diNidrmthgK0rLh c+A0R3xGD6nTGokTlgqZM +LX11na20A3Hc ZtajIyp9VUPrFYK6tTY8g G1pSUErUAzgb5C6bRX0K2 YcerDdax3wx1qpAYYlSSs wW32bqBVhq8V3 LQJvgLE3KLExrDfmIaEhs G93Oyc+OIKzqUdpd5CaVy uqk6izi0xyyOj6IdRfCXA gdmFsaWduPSJ0 p0PyYy05B20iXFzuACZiU LBlCCAtGMSjiBefjt5qtM 9wIi8+ERAnvVR5uLQ4vO4 kNxAiNbI8DZmb V137OrOerQPlOaywe6dra 7bnhZe3NmBtCQYmayRvcY gjRWL6s8MoHm46G3IxoDn vv2ChDbc0ro41 eSSwv1W8qQB1M8BdKTHxi ssklIWlxLunSY1nECIdfa mtFXAotD3rVRWrF3j8JmH wDrY1GIypP5Ms elJ9EVYwjUNzWCRbuBIEs D1rslbac2koliuhPcNkON QnVQe0IPv3ORNfoAezIfF hUQX7CrX5MZB5 yTDkuX4msWdffoupwY4vP yc+MOo1m0zqlAQsMY7oxV F7QA12BQ67lLDvi1Y1cBO 5V8AdFYLsgvoz addlsDZ0IVLbHZLanD42E d6udTtrIc2aMMHcCDO5HE EyiACfH5OzcE4fBiIfAKD aVALqQ7DruOJh LLdkM794CXnxYpF2EXZgv nCjW6QjBDOegTojVpL9o9 S2Jx9TPV92FV77IS42mPD qk6I9iGK0F1Hx GJAphbecrwmyjBZ7FNVaO MNogV31No3aqMqoLb5aTI TkKON3CQCdmANmC8JthB6 yOiAjMDAwMDAw I1GdmGYzTYpgI853FBgnV iB8BBQgvqRjT9TbNPOjvU sbLyJ8o4I2Sa1ZBa91JD4 4VY63sXIoh1X1 uBI3C9YbSCRujmsygeney SV7THOmQFYnxQ67Uh5prA utTn9nNCYxDJV9GXEhzSF tL3HjxU8oEnLr PJWkEIDbB9WoiSIdCYdiK 622EHicFbS0HQIgnzGoB6 FbKEPkbSfpJmX5u4C8Qs1 PQLeiwbg4M4Ty PjwvdHI+UT25PSKpWK99n XKdtLWox4mnwHy7CyZxPS SlQFH6hJwcOWhsc5NuIXH yJ81lsWBta3H0 IGNv (more content not included)... [facility] Coding Summary. CD:[id number] G h0bWw+PGhlYWQ+JG5ISHJ vV91jiJBnaZ7IP6rJSF4M HLQLKXIPCV9RUG4bwWG5F QysT1NfjtNm SqcsnJQeBE54RVe1UGO2e UfxHAjoeJ7gwLXyZ8g4Ro RjQC40fB83RZznKXOsVxD 3LjZpbjsgbWFy A9ueFdFylRVhUye+PHRhY mxlIHdpZHRoPScxMDAlJy VqxYzdVZ0nXk8cPCXxMKP vbGxhcHNlOiBj e3itTJUcPKdyHT8uzUdpS 1QgfLU9DLOrd4h2Lc35pN I+XRUpTUT8bVtvUQcls14 5VsPfr1jjMOD1 sXKiVNpyDWN5P01ua9H7R BEjGJTuNRD3hVQ9hC7fmO fjlmjuX3NfoSFzTvE0RGI 1aKYnpB4cdUns vaofnO1rMws+J51VNJ5OC BYNVU6SAjz6G7RfLmjsqS I+UV74KOWbRH72xBCciDP kt9aluWx2GrIh JGKrINW4oKcmLMtwi3DbB EJxN48myMBqt0B0YCEmcJ ttjAYsOtKqoZS3fB2gCCb ifjfhw6lueprh Mdjex3wpgd65lR47H31fG OoiVBYjKFM3WAXsEKQexD jmht0nnC0cQw7+LNavf9b fy9xzoHf7GlAm IFDivtMpnXrwRYX0j5KuW y61U0UgvFyst8SsFcy5zc 19pHKde5S0hTV9XUgaWUY mvW3jDNedYnY4 QZFjJbRapH52eDNsDUxqY m9dfHmbeCkhDU1hLDCcrh frTORzpB6bBFKwpDEnfNr rRL1zLUEfqpaa x293BhPsDGQ1WBLgwUTzJ 8SndI3cDeCaTBMqYIOaC5 XfsJOlVRaqQ788MQehSoL 5EORtjzAjI4Ae NIJoeTczCrS0p1C7Bl9Jp 0YsadeqONV8RRhaANRoEr I8IlLvZuV2H1UyGbe4XZL bxHuvPD2sF6Iy CSXzsbhgmtnmhDW2YGSzE MCrbH49gJFvZIrlWb1yk3 P3t231SPMuVBYkqA89Xo9 udDogMTBwdCBU yX4iqseas3kevjynRcNxM ZLtRIg5MYp5WPRhaLbjAx AeILY2KyK3VRV7yMYeuR2 yrRwqjlflxM9m Oyc+N31hbW3iTLL3JJL5x heaFYDvycOqHO10HI28F3 RyPjwvdGFibGU+PGRpdiB zrUsiSR1yBkXa l2yny8AgYEubT2HxEQMmY JdkSco7MCXbBGK4jEZ5kV 3nVSRnOHqvd7V7vAG3D6K icfBgrg9ch1mp ENYdJZlsB02ujFCzx4B2S EMwrAL5RDJqeNviIaIxsE 93Oyc+YPNroNpyz3BdDkg zk9zrg8mhiMy3 DyMtIASftgLetPmaYRP2y 7UhUm20Y96cREqhUMKgOE JqDXIaNIRlcQlqmr2hpI5 wIi8+PGNvbCB3 pPW4bA3dSVCzGfM3RMytX 304UsYvaPGlXjysn1sck0 tghVm4HiWaDVDnmuNxoXe jEJZ8a1YnUz01 M03uALfpKEQrAZPhFFOrB PKfjWcpas6dhG9gAl9+PC 0jr7ulet19mP00vUP+PHR jQCB5pCsvDYjf BGJouG5jVMwqPoE6MHNyX pUdiW73aFNsMMigPp6vkJ corHifRA9aAOLmwvoyt96 6XdHgw3spNKEc vZMdANfhUEL5Y50wy3G1Z NEdVQZeBPK5lLU7jB7yvQ lnbjogbGVmdDsgdmVydGl oGSdmFKmmS155 IHRvcDsnPlBhdGllbnQgT iAzGLb9F6UoNtf1XPSomZ beTX3odVSwATyeRq2lqPz bwRtiTW2gQVYa ceedb305MyWlg3amNNPjs RJuMYmcDEI1I24xt3H8SM CqTRWvXIG6uWO8iP6gbGg nbjogbGVmdDsg jdTpdWsbNTopZOykK836T HRvcDsnPkJpcnRoIERhdG K1YO44QL82oRKob4J5zMH 7I0NiDKWluisg laidzLD6FSZnMXOxeR21V h0taEqaXz4kSGCpQRZ4WU XjkSKgV3AywQ4xPhFyUUB tZICaH9SzxYRs QXtpH457AJolYiO1AVRsz qUpL4EjLEGxmZfnGsO6w2 C0Wi2HG2Q5WD55HJ72fCX ly6N4tRF5Z4It SMTwkcpzjdbwkJP4JIFiJ XDgwE47Da9qpIbpUa2qWY ZoOIC5OBUcaARaY7KkdW5 yOiAjMDAwMDAw P8JmoMKvINmiA596ASyoN yY1VPCekxDtY0VkOUTcrB ncYwJ4c4N8Zk3GUMm7OZ1 8QV32uTAbh0N4 kMV2R4ZhRDMlnqklsuotr EQ6QTSuCLXvrB75En9xqB ibQl0jINSbVWF6VQEhiHC bA7RqsL5pOfAz PMXtPKKfN6VuiCKrLPbcY 770GIdtDaP5WCNeulOlX3 FdBAAwxSykXhH6t9G8Ch5 IWLGiKM53JQM2 nUJ7SE35RD06R9OoDidly GFibGU+PHRhYmxlIHdpZH RoPScxMDAlJyBzdHlsZT0 vZz0hIMOpDPBf pWhdtRJyPbOol3qiKEFmW CcgXS1jdPutS7NpzXS9TS Afo0c5Up84Z16cV1LbiMQ +DABgdFE2nBS5 rX3fJuEkJkD9LFmqX741W mWqzGYnSiocq2dgp1jtlF n7YoK9ZEZvnwFkvUpjZBO 2l8OwLj77U81l IHdpZHRoPSIxNSUiIHZhb Wouyq2jpW7kEw5+PGNvbC K2cCB1lR5pBqPuUhW4DZv lQ087SaOnvXZr Dhvze6grk9ctzPu9ExEcD DFjhgPcgVysSWK3x4TiSt 21L8JngMlfk3DrXxn8bb6 7bEWsu2A1xHY1 V9EaCBSlfkbhvCKyrWvlD X6hVHAitouqJWZyaT9uRZ HzV6r6YwHsHiT0HGrhI0Y recS6SFMduDSn CHxjFEB2X96uz5H6AYFxD EYpTRV8jAY9aE7rqVvovc ogbGVmdDsgdmVydGljYWw xOTrrD245YWMt uVysVGDzzF2eDBScsXNze OcyCM8nDUTpperxCfaEPZ XjETnDARESCN38HB03oKS of5Y5hKC6W2Fl UIMsiqqoqhfbwMV9LEDlX LGchA83bXFzZJgqIu3gf0 A4h143PLOqBLBtzO38It1 udDogMTBwdCBU eJ9phulok1ibufvlCzVmX ZYlWWf9DKj0ROZviSyaCd SeGAN3NhX0VDM4tBDyxF1 wbBkbcxbdhH4t Oyc+LIKgPkjyBTo4UJixr GQ+PKLqKSF7fEnwVPssAL MdhJ9gDCTrC7x7MqIoGhT 8JLtlC6NmREPu drsuKu87zF4wRzDtVoL1U YotX8DmthK3XPLrjXUbSM icLNB5H34mp9Q5HJImAZB lLKG8rMT3yS0k bGlnbjogbGVmdDsgdmVyd DzaLShuOHmeG004EFNkiT piZdCdDFipFOIvGV43QZ8 4pPBwp9V0hCM1 L6IuYFXijamwqkanwVF9B RXtLWOuiA88aCGdUEleBl 4ax3K2e030EIFyGSRwbX5 3Yi8vuIpoJDPo tGPIsJ5zhpaef7hjbrywM sQaWCDkHXl1QZz8SGVdqH eaQdByYKG4NqY8WGV5vAT kuK2jyQzthpdz rP6wQsk+HeSfMWqoYF29H H93mGEmv9N5oTT0H4NqTT DxcgbkrsbrxDY9KTIjKCS zgU09qKFuVIsk Jx5hp6C9c421LEAbWCIjw C67Uq2niUjrXPYzlLCYqR 7qfhqgh7yearqwHvOzGDJ eDRm5PBj4XARc oQlaSyFpMHX3ZhJ9AND6i IEzpU9jzOcsjdrfrX9rBz c+TTNaHZCei1Klu8SyJC9 0NV66U0UtIdnw dGFibGU+PHRhYmxlIHdpZ HRoPScxMDAlJyBzdHlsZT 0pTb4vKROtOLCzeDnquVV yNbHgm8xsVKPq SJcbLC4ppCdgN2EjqKI4Q SIbo9s1Rp70H81eU5TcgJ A+CQHolXN2wZK9gP8xInK bVaI0LGmvL256 GqKcgREzBlnqz4mys6frp Ng9AoWtUGHluwVutTcnPI U9r5CpAx13A09wPOkwVVD oPSIyMCUiIHZh uBngjm8ouV2eJg1+PGNvb LD6nWA9dY1mKaUnZmX5VL yeC796XoWcyMIvSrjuS47 fU0PjjNT+PHRy Npw4CINlmNbcTK7teASzS YkdNz8gAYT7XwDlQeIzQH mpT8JtERJzsvistpuzaOW 9FNYpUAIpgZ35 Bj1jqZpgBg1lMCEoVEY4U OAesEXjF3SkjB7xSbDnWA XmLEIuB9UryWVcLInrL77 1XYqaLzX8VYTh nqTcO0NtPABymZvdGfA9b 1A8Ac3CaKammTKxKL3kTe TkDNc3A3MrXkc3UIOqjGi tXW8qsQYeGDwr Eh4nwHbdzNiaEA1wGFRje ipxy216WvSpg1zsDVVtnF VyUIczUGC2G39mu8S7HCD uVQQkJTO1wTK8 dQ6ikPtsxxqyqPTmmKzdv lMnxKfnMSppKQqpN361UY GzmIegFfGSPql9D1MzHzj 5DLIjuYtxCG4t vRSsMAvjEf8wpGbxlAksR J4eMWGjdsiio638AoBxg0 ypBUWvzELhYTqbUOR2U88 ke5V4OUOeATAd HMN4hXT7pY2hsQaoahhqr GVmdDsgdmVydGljYWwtYW fqS635LQEtgYitOo6GVtb 9H0QgKbq7CSQr rWatLI0inDXoDToxMn0nu ChneOslKQ1jSJMavfigj5 91LjUzf7unPBXefMKhCDe jUCI1N45qk2L2 ETUdBEOuXKR5mJT1jB8eg GlnbjogbGVmdDsgdmVydG woWTczKMadJ537LUZxjJn nPlBheWVyOjwv dGQ+WL33js66N5SnEwtqN xi1AUDbKAS0xAS8mB0hRB CdPZirj7S4cQI3I4BgfwA uoe7tl9cbCPBo ZTog (more content not included)... Normal [facility] PAP [id number] 08-15-2021 Cytology report Cyto stain Doc (Cvx/Vag) Note Invalid Interpretation Code [facility] Comment on above: Result Comment: TEST S RESULT FLAG UNITS REF RANGE LAB Clinician Provided Cytology Information Source.............Endocervix No. of containers..01 ThinPrep Vial DIAGNOSIS: 01 NEGATIVE FOR INTRAEPITHELIAL LESION OR MALIGNANCY. Specimen adequacy: 01 Satisfactory for evaluation. No endocervical component is identified. Performed by: 01 Sujey Engle Toy Painter (ASCP) . 01 Note: Note 01 The [...] <-Panic Low,>-Panic High,A-Abnormal,AA-Critical Abnormal Performed at: [address] [address] Mar Rivera MD, Performed By: #### 1 [id number] #### [facility] [address] [place] [id number] HPV 16+18+31+33+35+39+45 +51+52+56+58+59+66+6 8 DNA Probe+sig amp Ql (Cvx) Negative Invalid Interpretation Code Negative [facility] Comment on above: Result Comment: This nucleic acid amplification test detects fourteen high-risk HPV types (16,18,31,33,35,39,45,51,52,56,58,59,66,68) without differentiation. Performed at: [facility] [address] [id number] MD Nicole Manuel Performed at: =[facility] [id number] MD Nicole Manuel Performed By: #### 1 [id number] #### [facility] [address] [place] [address] Insulin Lvlon 08-11-2021 Insulin Qn 24.3 u[IU]/mL Invalid Interpretation Code 2.6-24.9 [facility] Comment on above: Result Comment: Perf ormed at: [facility] [address] [id number] PhD Archie Jha Performed By: #### 1 [id number] #### [facility] [address] [place] [address] Consent for Treatmenton 07-29 Consent for Treatment [id number]#1 .00CD:127 Normal [facility] Glu Fastingon 08-10-2021 Glucose [Mass/Vol] 95 mg/dL Normal 55-99 [facility] Comment on above: Performed By: #### 1 [id number] #### [facility] [address] [place] [address] Physician Orderon 08-10-2021 Physician Order [id number]# 1.00CD:127 Normal [facility] PAP [id number] 08-09-2021 Collection Technique BRUSH-SPATULA Normal [facility] Comment on above: Performed By: #### 1 [id number] #### [facility] [address] [place] [address] Gynecological Body Site ENDOCERVIX Normal [facility] Comment on above: Performed By: #### 1 [id number] #### [facility] [address] [place] [address] Physician Orderon 08-09-2021 Physician Order [id number]#1 .00CD:127 Normal [facility] Gynecology Office/Clinic Not pratik 02-17-2019 [...] Family History Family history is negative Normal [facility] Comment on above: Result Comment: [...] Family History Family history is negative Normal [facility] Comment on above: Result Comment: Elec tronically Signed By: Shamika ISAACS, Kaley Wilson\.david\Date and Time Signed: 02/17/19 12:09 EDT Vital Signs Date Time Vital Sign Value Performing Clinician Facility 01-02-2024 09:15-0400 Body height 157.48 cm [facility] 01-02-2024 09:150400 Body mass index (BMI) [Ratio] 33.9 kg/m2 [facility] 01-02-2024 09:150400 Body temperature 100.2 [degF] [facility] 01-02-2024 09:15-0400 Body weight 84.08 kg [facility] 01-02-2024 09:15-0400 Heart rate 115 /min [facility] 01-02-2024 09:15-0400 Respiratory rate 18 /min [facility] 01-02-2024 09:15-0400 SaO2% (BldA) [Mass fraction] 99 % [facility] Encounters Encounter Date Encounter Type Care Provider Facility Start: 05-25-2024 End: 05-25-2024 Bamboo flowsheet Luis Yobani DO Work Phone: [facility] Start: 05-25-2024 End: 05-25-2024 Bamboo flowsheet Luis Yobani DO Work Phone: [facility] Start: 04-27-2024 End: 04-27-2024 ambulatory LUIS YOBANI Not Available Start: 03-27-2024 End: 03-27-2024 ambulatory LUIS HILTON Not Available Start: 01-02-2024 End: 01-02-2024 ambulatory JOHNNY FERNANDEZ Not Available Start: 01-02-2024 End: 01-02-2024 ambulatory [facility] Work Phone: Start: 01-02-2024 End: 01-02-2024 Patient encounter procedure [facility] Work Phone: Start: 11-27-2023 End: 11-27-2023 ambulatory LUIS HILTON Not Available Start: 07-26-2022 End: 07-27-[address] LUIS HILTON . Facility:[facility] Start: 07-12-2022 End: 07-12-[address] LUIS HILTON . Facility:[facility] Start: 06-28-2022 End: 06-29-[address] LUIS HILTON . Facility:[facility] Start: 05-31-2022 End: 06-27-[address] LUIS HILTON . Facility:[facility] Start: 05-17-2022 End: 05-18-[address] LUIS HILTON . Facility:[facility] Start: 04-28-2022 End: 04-29-[address] LUIS HILTON . Facility:[facility] Start: 04-04-2022 End: 04-05-[address] LUIS HILTON . Facility:[facility] Plan of Treatment Date Care Activity Detail Author Start: 05-25-2024 End: 05-25-2024 Patient encounter procedure 05/25/2024 11:10 AM EDT Routine [facility] [address] [place] [address] Luis Hilton, DO [address] Tisha Kemp, [facility] Arrived [facility] Comment on above: Arrived Start: 03-29-2024 Influenza vaccination Influenza Vacc ine (#1) [facility] Payers Date Payer Category Payer [facility] [id number] 2023 Unknown [id number] 2021 Private Health Insurance [id number] 2021 Unknown [id number] 1999 Unknown [id number] 2.16.840.1.587336.3.579.2. 593 1999 Unknown [id number] 2.16.840.1.558893.3.579.2. 593 1999 Unknown [id number] 2.16.840.1.492560.3.579.2. 593 1999 Unknown [id number] 2.16.840.1.785543.3.579.2. 593 1999 Unknown [id number] 2.16.840.1.662180.3.579.2. 593 1999 Unknown [id number] 2.16.840.1.840611.3.579.2. 593 1999 Unknown [id number] 2.16.840.1.730042.3.579.2. 593 1999 Unknown [id number] 2.16.840.1.335600.3.579.2. 1259 1999 Unknown [id number] 2.16.840.1.804329.3.579.2. 1259 1999 Unknown [id number] 2.16.840.1.318239.3.579.2. 1259 1999 Unknown [id number] 2.16.840.1.129466.3.579.2. 1259 1959 Private Health Insurance [id number] 1959 Unknown [id number] Social History Date Type Detail Facility [facility] Work Phone: Start: 2000 Sex Assigned At Female F [facility] Start: 01-02-2024 [facility] tobacco [facility] Start: 01-02-2024 Tobacco use and exposure Smokeless tobacco non-user [facility] Start: 04-27-2024 Alcoholic beverage intake Ex-drinker (finding) [facility] Start: 01-02-2024 History of Social function [facility] Start: 01-02-2024 Tobacco use panel [facility] Start: 01-30-2024 [facility] Start: 11-26-2023 Gender identity Identifies as female gender (finding) [facility] Goals Date Patient Goal Desired Activity /State Personal health goal Evaluation note Note Date & Type Note Facility Evaluation note No assessment information availa [facility] Work Phone: Summary Purpose Family History Relationship Condition Age at Onset Recorded Date/T yosi family member Unknown Heart disease Unknown Advance Directives Advance Directive Response Recorded Date/ Time Advance Directives No January 01 9:07am Chief Complaint and Reason for Visit Chief Complaint Congestion Additional Source Comments INFORMATION SOURCE (unrecogn ized section and content) DATE CREATED AUTHOR 03/06/2019 [facility] DATE CREATED AUTHOR AUTHOR'S ORGANIZ ATION 12/21/2021 [facility] DATE CREATED AUTHOR AUTHOR'S ORGANIZ ATION 12/01/2022 [facility] DATE CREATED AUTHOR AUTHOR'S ORGANIZ ATION 04/27/2024 [facility] Care Teams (unrecognized sec tion and content) Team Status: Active Member Role Status Dates Damon Stover DO Primary Care Provider Active Team Status: Inactive Member Role Status Dates Damon Stover DO Primary Care Provider Active Start: January 02, 2024 End: January 02, 2024 Teresa Sanchez APRN Attending Provider Active S tart: January 02, 2024 End: January 02, 2024 Early Breastfeeding Care Specialist Relationship Specialty Start Date End Date Kayce Grant MD [address] [place] [id number] PCP - General Family Medicine 11/27/23 Goals (unrecognized section and content) Goals may [...] BE BASED ON THE PRIMARY CLINICAL RECORDS. [facility]. provides no warranty or guarantee of the accuracy or completeness of information in this document.
[2024-06-01 14:10] LABS: Age Gdln ACOG Testing Note (.); IGP, rfx Aptima HPV ASCU Note (.)
== END 2024-05-25 21:08 | disposition home or self-care (01) ==
LOC: LAB 21:07
PROVIDERS: PCP Family Medicine; Visit Provider Obstetrics & Gynecology
DX: Z01.419 Encounter for gynecological examination (general) (routine) without abnormal findings (principal)
CPT/HCPCS: 88175

== ENCOUNTER 2024-05-28 08:47 | Outpatient (OUT) | payer OTHER, BC, SELFPAY ==
--- OUTSIDE RECORDS SUMMARY | 2024-05-28 08:51 | XMS_ITS | CCD ---
Author Organization [facility] Care Team Providers Care [employer] Name Role Phone YOBANI ., DR SMITH [...] Unavailable YOBANI ., DR SMITH Consulting Unavailable GRANT, DR KAYCE Watson Primary Care Unavailable ZIEBAMAIRANI, DR LUCHO Johnson Consulting Unavailable YOBANI ., DR SMITH Admitting Unavailable YOBANI ., DR SMITH Attending Unavailable YOBANI ., DR SMITH Consulting Unavailable GRANT, DR KAYCE Watson Primary Care [...] Unavailable YOBANI ., DR SMITH Consulting Unavailable Kayce Grant MD Primary Care Provider LUIS HILTON Attending Unavailable JOHNNY FERNANDEZ Attending Unavailable YOBANILUIS Attending Unavailable YOBANILUIS Attending Unavailable Unavailable Primary Care Provider Unavailabl e Allergies Allergy Classification Reported Allergen(s) Allergy Type Date of Onset Reaction(s) Facility (2 sources) Latex Drug allergy (disorder) 0 hives [facility] [place] [facility] (1 source) orange flavor Drug allergy (disorder) 0 [facility] [place] [facility] (3 sources) Griggs - 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 [facility] (5 sources) Latex 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 4 Hives, Itching, Rash, Swelling [facility] (3 sources) orange allergenic extract Drug Allergy 4 [facility] Work Phone: Medications Current Medications Medication Drug Class(es) Dates Sig (Normalized) Sig (Original) acyclovir 800 mg oral tablet (5 sources) Herpesvirus Nucleoside Analog DNA Polymerase Inhibitor, Herpes [...] Active 1 TAB PO Twice daily 20 January 02, 2024 12:00am [facility] [employer] [facility] (3 sources) Start: 03-24-2024 [facility] [employer] [facility] Indications: Female infertility 1 each if needed (1 large container) 1 each 1 03/24/2024 Active cholecalciferol 0.05 mg oral tablet (2 sources) Vitamin D take 1 tablet by mouth in the morning cholecalciferol, vitamin D3, 2,000 units tablet Take 1 tablet (2,000 Units total) by mouth in the morning. Active estradiol 2 mg oral tablet (4 sources) Estrogen Start: 12-31-2023 estradiol (Estrace) 2 MG tablet 2 mg 12/31/2023 Active ibuprofen 600 mg oral tablet (3 sources) Nonsteroidal Anti-inflammatory Drug Start: 01-04-2023 take 1 tablet by mouth every six hours ibuprofen 600 MG tablet Take 1 tablet by mouth every 6 (six) hours 01/04/2023 Active labetalol hydrochloride 200 mg oral tablet (7 sources) beta-Adrenergic Kyle Start: 01-02-2024 take 100 mg by mouth twice daily Labetalol Active 100 MG PO Twice daily January 02, 2024 12:00am Start: 11-29-2023 take 1 tablet by gt th in the morning labetalol (Normodyne) 200 MG tablet Indications: Blood pressure instability Take 1 tablet (200 mg) by mouth in the morning and 1 tablet (200 mg) before bedtime. 60 tablet 3 11/29/2023 Active letrozole 2.5 mg oral tablet (1 source) Aromatase Inhibitor Start: 01-02-2024 take 2.5 mg by mouth once daily Letrozole Active 2.5 MG PO Daily January 02, 2024 12:00am metFORMIN hydrochloride 500 mg oral tablet (5 sources) Biguanide Start: 04-30-2023 take 4 tablets by mouth once daily metFORMIN (Glucophage) 500 MG tablet Take 2,000 mg by mouth Daily 04/30/2023 Active take 1 tablet by gt th in the morning, then take 1 tablet by mouth at bedtime metFORMIN (GLUCOPHAGE) 500 mg tablet Shalom e 1 tablet (500 mg total) by mouth in the morning and 1 tablet (500 mg total) before bedtime. Active Multiple Vitamin (multivitamin) tablet (3 sources) take 1 tablet by mouth once daily Multiple Vitamin (multivitamin) tablet Take 1 tablet by mouth Daily Active norethindrone acetate 5 mg oral tablet (1 source) Start: 01-02-20 24 take 5 mg by mouth once daily Norethindrone Acetate Active 5 MG PO Daily January 02, 2024 12:00am ondansetron 4 mg oral tablet (2 sources) Serotonin-3 Receptor Antagonist take 1 tablet by mouth every eight hours as needed for nausea and vomiting ondansetron (ZOFRAN) 4 mg tablet Take 1 tablet (4 mg total) by mouth every 8 (eight) hours as needed for nausea or vomiting. Active predniSONE 10 mg oral tablet (6 sources) Start: 01-29-20 take 5 mg by mouth once daily predniSONE (Deltasone) 10 MG tablet Take 5 mg by mouth Daily 01/29/2024 Active Start: 01-02-2024 take 10 mg by mouth twice simon y Prednisone Active 10 MG PO Twice daily January 02, 2024 12:00am take 1 tablet by gt th in the morning predniSONE (DELTASONE) 5 mg tablet Take 1 tablet (5 mg total) by mouth in the morning. Active no122/iron/folic acid ( MULTI ORAL) (2 sources) take 1 tablet by mouth in the morning no122/iron/folic acid ( MULTI ORAL) Take 1 tablet by mouth in the morning. Active Progesterone (1 source) Progesterone Start: Progesterone Micronized Active 200 MG VAGINAL Daily January 02, 2024 12:00am QUEtiapine 50 mg oral tablet (1 source) Atypical Antipsychotic Start: take 50 mg by mouth once daily Quetiapine Active 50 MG PO Daily January 02, 2024 12:00am terconazole 4 mg/ml vaginal cream (2 sources) Azole Antifungal Start: End: terconazole (Terazol 7) 0.4 % vaginal cream Indications: Vaginal discharge Insert 1 applicator into the vagina at bedtime for 7 days 45 g 05/25/2024 06/01/2024 Active Problems Active Problems Problem Classification Problem Date Documented Date Episodic/Chronic Contraceptive and procreative management (5 sources) Encounter for other procreative management; Translations: [Patient encounter status] Onset: 07-26-2022 Episodic Essential hypertension (1 source) Hypertensive disorder; Translations: [Essential (primary) hypertension] Onset: 05-27-2024 05-27-2024 Chronic Female infertility (5 sources) Female infertility associated with anovulation; Translations: [Female infertility] Onset: 07-12-2022 Chronic Immunizations and screening for infectious disease (2 sources) Exposure to sexually transmissible disorder; Translations: [Contact with and (suspected) exposure to infections with a predominantly sexual mode of transmission] 05-25-2024 Episodic Other endocrine disorders (4 sources) Polycystic ovarian syndrome; Translations: [POLYCYSTIC OVARIAN SYNDROME] Onset: 04-04-2022 Chronic Other endocrine disorders (1 source) Polycystic ovary syndrome; Translations: [Polycystic ovarian syndrome] Onset: 05-27-2024 05-27-2024 Chronic Other female genital disorders (2 sources) Vaginal discharge; Translations: [Other specified noninflammatory disorders of vagina] 05-25-2024 Episodic Other and delivery including normal (5 sources) Second trimester ; Translations: [Encounter for supervision of normal , unspecified, second trimester] Onset: 04-27-2024 04-27-2024 Episodic Residual codes; unclassified (3 sources) Gestation period, 14 weeks; Translations: [14 weeks gestation of ] Onset: 04-27-2024 04-27-2024 Episodic Thyroid disorders (1 source) Nontoxic single thyroid nodule; Translations: [NONTOXIC SINGLE THYROID NODULE] Onset: 04-08-2022 Chronic Unclassified (3 sources) OB Reminders Onset: 05-18-2024 05-18-2024 Past or Other Problems Problem Classification Problem Date Documented Da te Episodic/Chronic Ovarian cyst (4 sources) Other ovarian cyst, left side; Translations: [OTHER OVARIAN CYST LEFT SIDE] Onset: 05-17-2022 Episodic Results Test Name Value Interpretation Reference Range Facility CBC without diffon Hematocrit (Bld) [Volume fraction] 39.6 % [facility] Hemoglobin (Bld) [Mass/Vol] 13.7 g/dL [facility] Rbc Mcv (Fl) By Automated Count 87 [facility] No Panel Informationon 04-08 [facility] Rubella IGG immune statuson 04-08-2024 Rubella immune IgG 2.32 [facility] Syphilis Total(Unknown Syphi lis Status)on 04-08-2024 Syphilis Non-Reactive [facility] Type and screenon 04-08-2024 Abo/Rh(D) Positive [facility] PROGESTERONEon 07-27-2022 Progesterone 26.9 ng/mL Normal [facility] Comment on above: Result Comment: Foll icular phase 0.1 - 0.9 Luteal phase 1.8 - 23.9 Ovulation phase 0.1 - 12.0 First trimester 11.0 - 44.3 Second trimester 25.4 - 83.3 Third trimester 58.7 - 214.0 Postmenopausal 0.0 - 0.1 Performed By: #### P ROGES #### [facility] [place] [facility] [address] [address] [address] Ryan Francisco PREG QUANT HCGon 07-12-2022 HCG QUANT <1 Normal [facility] [place] Comment on above: Performed By: #### P REGQNT #### [facility] [place] [facility] [address] [place] [address] Dr. Ryan Francisco HCG RANGE SEE BELOW Normal [facility] [place] Comment on above: Result Comment: 5-50 0.2-1 WEEK 50-500 1-2 WEEKS 100-5,000 2-3 WEEKS 500-10,000 3-4 WEEKS 1,000-50,000 4-5 WEEKS 10,000-100,000 5-6 WEEKS 15,000-200,000 6-8 WEEKS 10,000-100,000 2-3 MONTHS Performed By: #### P REGQNT #### [facility] [place] [facility] [address] [place] [address] Dr. Ryan Francisco XR HYSTEROSALPINGO EXPon XR [...] by: CLEMENTINE DEWEY Date: 2022-07-12 12:34 Normal [facility] [place] PROGESTERONEon 06-29-2022 Progesterone 4.6 ng/mL Normal [facility] Comment on above: Result Comment: Foll icular phase 0.1 - 0.9 Luteal phase 1.8 - 23.9 Ovulation phase 0.1 - 12.0 First trimester 11.0 - 44.3 Second trimester 25.4 - 83.3 Third trimester 58.7 - 214.0 Postmenopausal 0.0 - 0.1 Performed By: #### P ROGES #### [facility] [place] [facility] [address] [place] [address] [address] [address] Ryan Francisco PROGESTERONEon 06-01-2022 Progesterone 18.9 ng/mL Normal [facility] Comment on above: Result Comment: Foll icular phase 0.1 - 0.9 Luteal phase 1.8 - 23.9 Ovulation phase 0.1 - 12.0 First trimester 11.0 - 44.3 Second trimester 25.4 - 83.3 Third trimester 58.7 - 214.0 Postmenopausal 0.0 - 0.1 Performed By: #### P BRETT #### [facility] [place] [facility] [address] [place], [place] [address] Dr. Ryan Francisco US PELVIS AND TRANSVAGon [...] by: CLEMENTINE DEWEY Date: 2022-05-17 17:25 Normal [facility] PROGESTERONEon 04-29-2022 Progesterone 5.1 ng/mL Normal [facility] Comment on above: Result Comment: Foll icular phase 0.1 - 0.9 Luteal phase 1.8 - 23.9 Ovulation phase 0.1 - 12.0 First trimester 11.0 - 44.3 Second trimester 25.4 - 83.3 Third trimester 58.7 - 214.0 Postmenopausal 0.0 - 0.1 Performed By: #### Johnathon WEST ####[facility] [place] [address], [place] [address]YfDr. Ryan Francisco ANTI-MULLERIAN HORMONEon Anti-Mullerian Hormone (AMH) 6.09 ng/mL Normal [facility] Comment on above: Result Comment: For assays employing antibodies, the possibility exists for interference by heterophile antibodies in the samples.1 1.Steffen Peguero. Interferences in Immunoassays - still a threat. Clin. Chem. 2000; 46: 5940-2170. This test was developed and its performance characteristics determined by [employer]. It has not been cleared or approved by the Food and Drug Administration. Reference Range: Females 20 - 25y: 1.23 - 11.51 Median 4.70 AMH concentrations of >= 1.06 ng/mL is correlated with a better response to ovarian stimulation, produced more retrievable oocytes and higher odds of live according to Larry et al. Fertility and Sterility. 2010: 94:2645-6423. The current AMH test method correlates with [...] tumor. Performed By: #### A WEI #### [facility] [place] [facility] [address] [place] [address] Dr. Ryan Francisco FSHon 04-05-2022 FSH 3.6 mIU/mL Normal [facility] Comment on above: Result Comment: Adul t Female: Follicular phase 3.5 - 12.5 Ovulation phase 4.7 - 21.5 Luteal phase 1.7 - 7.7 Postmenopausal 25.8 - 134.8 Performed By: #### L [facility] #### [facility] [place] [facility] [address] [place] [address] Dr. Ryan Francisco LUTEINIZING HORMONE (LH)on 0 04-05-2022 LH 6.8 mIU/mL Normal [facility] Comment on above: Result Comment: Adul t Female: Follicular phase 2.4 - 12.6 Ovulation phase 14.0 - 95.6 Luteal phase 1.0 - 11.4 Postmenopausal 7.7 - 58.5 Performed By: #### L BCL ####[facility] [place] [address], [place] [address]AoDr. Ryan Francisco CBC AUTO DIFFon 04-04-2022 BASO # 0.0 103/ul Normal 0.0-0.1 [facility] Comment on above: Performed By: #### C BC #### [facility] [place] [facility] [address] [place], [place] [address] Dr. Ryan Francisco Basophils/100 WBC (Bld) 0.3 % Normal 0.2-2.0 [facility] Comment on above: Performed By: #### C BC #### [facility] [place] [facility] [address] [place] [address] Dr. Ryan Francisco EO # 0.1 103/ul Normal 0.0-0.7 [facility] Comment on above: Performed By: #### C BC #### [facility] [place] [facility] [address] [place] [address] Dr. Ryan Francisco Eosinophils/100 WBC (Bld) 1.7 % Normal 0.9-7.0 [facility] Comment on above: Performed By: #### C BC #### [facility] [place] [facility] [address] [place] [address] Dr. Ryan Francisco Erythrocyte distribution width (RBC) [Ratio] 12.7 % Normal 11.0-15.0 [facility] Comment on above: Performed By: #### C BC #### [facility] [place] [facility] [address] [place] [address] Dr. Ryan Francisco Hematocrit (Bld) [Volume fraction] 39.7 % Normal 36.0-48.0 [facility] Comment on above: Performed By: #### C BC #### [facility] [place] [facility] [address] [place] [address] Dr. Ryan Francisco Hemoglobin (Bld) [Mass/Vol] 13.4 g/dL Normal 12.0-16.0 [facility] Comment on above: Performed By: #### C BC #### [facility] [place] [facility] [address] [place] [address] Dr. Ryan Francisco IG # 0.03 10e3/ul Normal 0.00-0.03 [facility] [place] Comment on above: Performed By: #### C BC #### [facility] [place] [facility] [address] [place] [address] Dr. Ryan Francisco IG % 0.5 % Normal 0.0-0.5 [facility] [place] Comment on above: Performed By: #### C BC #### [facility] [place] [facility] [address] [place] [address] Dr. Ryan Francisco LYMPH # 1.6 103/ul Normal 1.2-3.8 [facility] [place] Comment on above: Performed By: #### C BC #### [facility] [place] [facility] [address] [place] [address] Dr. Ryan Francisco Lymphocytes/100 WBC (Bld) 27.1 % Normal 20.5-60.0 [facility] [place] Comment on above: Performed By: #### C BC #### [facility] [place] [facility] [address] [place] [address] Dr. Ryan Francisco MANUAL DIFF REQ NO Normal [facility] Comment on above: Performed By: #### C BC #### [facility] [place] [facility] [address] [place] [address] Dr. Ryan Francisco MCH (RBC) [Entitic mass] 29.6 pg Normal 26.7-34.0 [facility] [place] Comment on above: Performed By: #### C BC #### [facility] [place] [facility] [address] [place] [address] Dr. Ryan Francisco MCHC (RBC) [Mass/Vol] 33.8 g/dL Normal 29.9-35.2 [facility] [place] Comment on above: Performed By: #### C BC #### [facility] [place] [facility] [address] [place] [address] Dr. Ryan Francisco MCV (RBC) [Entitic vol] 87.6 fL Normal 81.0-99.0 [facility] [place] Comment on above: Performed By: #### C BC #### [facility] [place] [facility] [address] [place] [address] Dr. Ryan Francisco MONO # 0.4 103/ul Normal 0.3-0.8 [facility] [place] Comment on above: Performed By: #### C BC #### [facility] [place] [facility] [address] [place] [address] Dr. Ryan Francisco Monocytes/100 WBC (Bld) 6.7 % Normal 1.7-12.0 [facility] [place] Comment on above: Performed By: #### C BC #### [facility] [place] [facility] [address] [place] [address] Dr. Ryan Francisco NEUT # 3.7 103/ul Normal 1.4-6.5 [facility] [place] Comment on above: Performed By: #### C BC #### [facility] [place] [facility] [address] [place], [place] [id number] Dr. Ryan Francisco Neutrophils/100 WBC (Bld) 63.7 % Normal 43.0-75.0 [facility] Comment on above: Performed By: #### C BC #### [facility] [place] [facility] [address] [place] [address] Dr. Ryan Francisco Platelet mean volume (Bld) [Entitic vol] 9.9 fL Normal 9.5-13.5 [facility] Comment on above: Performed By: #### C BC #### [facility] [place] [facility] [address] [place] [address] Dr. Ryan Francisco PLT 421 103/ul Normal 150-450 [facility] Comment on above: Performed By: #### C BC #### [facility] [place] [facility] [address] [place] [address] Dr. Ryan Francisco RBC 4.53 106/ul Normal 4.20-5.40 [facility] Comment on above: Performed By: #### C BC #### [facility] [place] [facility] [address] [place] [address] Dr. Ryan Francisco WBC 5.8 103/ul Normal 4.0-11.0 [facility] Comment on above: Performed By: #### C BC #### [facility] [place] [facility] [address] [place] [address] Dr. Ryan Francisco FREE T4on 04-04-2022 Free T4 [Mass/Vol] 0.99 ng/dL Normal 0.76-1.46 [facility] Comment on above: Performed By: #### F T4 #### [facility] [place] [facility] [address] [place] [address] Dr. Ryan Francisco TSHon 04-04-2022 TSH 3.086 uIU/mL Normal 0.358-3.740 [facility] Comment on above: Performed By: #### T SH ####[facility] [place] [address] [place], [place] [address]Dr. Ryan Francisco US PELVIS AND TRANSVAGon US [...] by: LUCHO PADRON Date: 2022-04-04 16:38 Normal [facility] Auth for Release of Medical Recordson 12-20-2021 Auth for Release of Medical Records [id number]. [id number]:127 Normal [facility] Coding Summary.on 08-22-2021 Coding Summary. CD:[id number] G h0bWw+PGhlYWQ+GH7IKRY nX92muIMrjH3IO7hKUQ3L IFNPAFAXBE5UIN7nuQZ0A FteF4KsjrZo EebsvADrXO59MQv2IAM6g BchUCmbaS0zzHIcI8t9Rh SlFO71lR71VNoxQEHfRfX 3LjZpbjsgbWFy P4nnAcLbuICpKgg+PHRhY mxlIHdpZHRoPScxMDAlJy QygUapVR7mUa9xXQRyKPX vbGxhcHNlOiBj p3opIMAgPKecWS0kzZrfK 8ToyKE8HIWwr4c3Xm38hK I+KLZiJAX7rHfjFGcwf71 7RrYvf5ohMOP4 jPEmDVxeLTJ6I77xn1Z2Z WNtGFNnSOV6wER9gA7acD fcurmsB7JsnPGbWkY9PTQ 7gOLhmW6sbKxn aystnM6eKuh+M12FTO3TI GNNTC8LDhw9N7NdCubxrD I+RW93CTGzGK36jVDomMI el4mhdFz0GuEl TXUeSCC7fCimMHvsl1LqK HZgI94fkMFdm9K7EOFehP kfpMZrBhQceWH9cF3zYYu matkmm7zximby Vxpsn3vbgw04tJ79C18aU WrbFKOwFTA9DUMpPIYrlV qzdr4wxQ4aAi7+ZKola5r mp3zejYp4MdPe RCNgpiMuoFmqNGB2x2WdT e56B3PfrCjyp2CxHnh8rk 90hXZtz6L9vYQ7WRonNLP juN1bIDnkZlA9 LVHfJdYcsN99aCOwFWtdI y3vaQvyhHjaFO2ySLXgba puTLPwmD2qPYOaiTZlxBe oIX7uIKVpbnzd d552AhGnJSC1SEFgeCJwA 9LlwZ8cVyFdOURjNUMwR8 OnbCYbBEiyN470YAfuXzC 6ZOGeqyTzY0Tg NIKdjGvgIpO9j2L2Mf9Tm 8XoeykeLZW3TIdhJZHwRq Q1KjIoZkO0U0UfUwl9XKE bwHyhXQ7jV6Kj XOCflcxzdodxuPS1HXHhO FKjiQ46pEUhAWymHd4mk6 I4b126OYHcZDLllS86Xm4 udDogMTBwdCBU yH1bfootu6rzioaqJdRjH OEdTDx7JRa9YAQegUcuZm JfXSG2CpP9EEH7ySWuwD5 loRijaedhpW4u Oyc+Z53ysA4wEFN6QQL1c rlhTISpabCrDC90WL05D5 RyPjwvdGFibGU+PGRpdiB hvTujGP4vDjBd z8lxp7RdLRaeF6LqHAZzZ ExlRqf0ZUHiMYF7wZM4nR 8vPPAqMLjjw9H5eDY8O7O sybMbsi7xo1ad WRFxHQtlW61ykTGpy0O0M SDlzZD1GXKnpCpdUrBltY 93Oyc+JBWirXbpc7EwVxe bv8qnq8ynsGu5 XqWsVFDmizIgoAbkPLT7o 9LlUi69W93zETsxLUWcJR WrLKEtNCEscOdmme7jvX7 wIi8+PGNvbCB3 gNF3hT7mEURfVqT9WIlmN 035OuXilRZoDtikc0cnr3 sgeMb8HdQoCSOtjuPliLi rBQA7q6BzEm07 N81eRJnuSORdGBAoUNYuY ZOcaZczyd2chH8kIy3+PC 4jf4eeia03zT10pZV+PHR iEMJ1dNmsLTfu CEHbdO0sRPaxTkO0SAAhP wGjuM03xZSrXBhdNx8rpY ewdPkiMQ5cEEYjhfqol78 3XiPdr5wgZUSr vBHcQJcuIGT4L30dp9K5T BIjYFWgJNN1hVJ6nT2khT lnbjogbGVmdDsgdmVydGl tDYvaMFlbL532 IHRvcDsnPlBhdGllbnQgT xXpGGz8X4QmEqp7QHKkqJ upNX6emJRxCQkkIe2zeZv yoPgwQN2yGPPw jxlpa189QiGyz5atJBZus LJnYKazMZH3A78ri4K8OO PnSRAiJOT3xEE0xH8suNb nbjogbGVmdDsg lvKmgCacYWxiVIevP361N HRvcDsnPkJpcnRoIERhdG S9MS45RT06aPKvq9R7cCS 2G0UiTECtdkmr ctpdgMO9JZZnFWIczQ78Y v0xmMyoBs9qEXVlJWS9ER ZgmIJjH1YayQ5cDoNaPJE zDBKpF1NaeNKn OXklX655OCblJxY7FIJlj uWfQ0ZeMIThvRpaTmH2o3 V8Lo7CQ3Z1YZ05IN60gFG if4E0hZK1C7Bm SMDqyjwhestasQM8ZPPeL POxhW75Tb3mgJwtFc5tTD JtYJA1UKQizDEhT1CytJ9 yOiAjMDAwMDAw P9TezMYqUTpiB001EBfxY fN8AGVjtwTqF9YrDNGedZ dwGqG1n0X6Zk5XZGf7YG0 1VP75wEFda7T9 tHF9Q7UsZPOzbvhypbplv TW2UKMdRPFdpF36Ig4qvM yxFg8yTCBiUBG2AZOlcUA yQ1UpxA7rLkEz RAPnXYYiC5TuuDRoJZcfG 398YYjwDvL6YKHusvUzS6 YwLCZryHafCoD9i8A1Qf9 VFOLbEM78ZDE0 bGG4MO21KZ12F9PkJhxhd GFibGU+PHRhYmxlIHdpZH RoPScxMDAlJyBzdHlsZT0 hRs0fMGYyKPBh hLmkyUQuOkXfx9rcOAQhO TlkRC2zgSqeL2CfdWA9ED Kin1j1Yb22J73fR4WnpDB +YPXfqSX3wYF6 pA9sRzZbVjV6INtlK986T xXiyUWpGxtea7wam3cpfI f2NjG1TZCaidCreAchYIT 8m4HuJw37E30o IHdpZHRoPSIxNSUiIHZhb Ktpzr3hyC0pSr4+PGNvbC V9uDO6uB2nSaQdCxT4ZCi iM717BtUjoCLc Wmrnn1wey7zyzKm3OeSmG WTdavEbgInlKID3p8AuIt 55S6VbgGewn0UwQgu0jg6 4xWSec2Q2yNC7 W4OrMZYfkovvfEAwzYymC S7eSHDhyekjZBZvoW8xFT YvF8q9WmJoRhO9ROyeM6A byvE8IFGzzADi KZqbFSA2V85tr6R6AIGaA JNaWND9vYF1cJ5hxTmaok ogbGVmdDsgdmVydGljYWw iNMjtV436JTAi kPryGUZfsD0yOVLhrPCnj AuqQP5uYWNxzkfmWuuGEH MpIZyGVHMINH91CL94vFL gx2P0gGP3Q2Xp IYGmrzokblqrlBT7PTYlU VJpyM71iPCrFMqgLr1ku7 C0k901OYLyJWNfuC25Nt2 udDogMTBwdCBU fT5daardi7siurwzLtDgC QNiWEa2HXc5ORLmrHrsPt SyDUE2WoH7TVP3gDKchE9 iuIectaeqpZ2x Oyc+IEDaRsjcBWo9GYqxf GQ+HCEvGST9qFfaGLmxLJ KvvA2cFLEcS6a2JbRiKeH 2SYtyL2UgZCWj xoofZv66dB9lNqEmXeV2B TpyR7TronR8VZLfhLVjTY cmNFG1O27ol9N4LMQsQSI sBVI2iNE7nP6k bGlnbjogbGVmdDsgdmVyd HdzZIuoQQfzA374ORYclZ lrPiNxYOydEUWuRB22VI1 4zZYtc6T5nUG7 F8FdAMFrscmhtslmwCW7I TGkCKSbiM13dKBfNNaqPq 8uh8N6h007ZMCcBHMkeH6 9Hr0wjOpqPMEu bJIGzI7ifweys7pvfiumQ wMyOMFmSWa9CWx1GWDybR yaDuReTYZ8OqG6DJC1sKK pgT9dbBjrpquf iZ3mZmy+ZfSzKSzzZU21B F51xZOsc8Q5kFO7T3CrZX LevlfiuillkET3MLOiIPK idQ52bRPdWGox Uo0pp3G4h062LHHfVDAby G80Va9rxRtgUVEwoCAIdX 6dewaks1cfbgeoFwUbPHD xWLs2TVy3LYTv tTfcRrXdHRC6BuQ8MDC6w CSaqU5wqWpptywuyO7aUq c+G8S6eDX0xPUxqJdgnFN +GU08nv60X5Sx PapiJws4QASrKHW2hIM3h Q7eTLSuHOwfg9H5gXC6Q3 LeykVltm5id4kiKCNwQBt fS30kiUPrx7Q3 NOZzlWX5ZHEfiScyTnWav G93Oyc+CBXijCdmw2CvNj jvb8rqo2kisIm1SeLeTBJ gdmFsaWduPSJ0 y1OyRb02H50uIBrxXVKrS YXbEZKkKCUttNqipg0xkT 9wIi8+EHOehMF9sKI3fX5 xDvAqXkJ0CRcq J455OaRedPXiExxqd6nue 6lwvXe1FvShVMBhggBcgW agNPD4w5LyAk60W9VoaKe ey7GrLqu0nq49 gUMfa0G0fUX0S1HuLGZmd flwvYJtqRkbNN4sIJBigr lzFWYoaW6rFKQfQ9f9XgG fKhA4PHgcY6Mn suM0RVYvvFPiDWDgkRWKf Z4inbzkt5cheguoUzQeXH XlLGt6IDs3HZLvpIjjYqT qRFA4HtB1YAX0 qREpoT3dxOdpggfdxX9pW yc+BXt8w4nrdGSuBI5msT G1CA14WO11bSKsm0S6qMA 4Z9ChRKLdjyfz ssmxbHK5GDLmOTVnaZ01X c3umYrrPy9zPAFdRIM8DX XqyZXzG3KpfY7pWzBlKYL jMERzD9ZszAKe MDpxR073VOomAxZ8VFVsn aWoC3OxIMAbySyyXcM7n2 H1So9GCN75VR81FA80kAK vw2U9dGV6M0Cw INSmrowkpubzjFC5FBPkA DHsuV59Ap9xvKkgJa8aLE YlOMQ4BORqvCAfT1LfhQ8 yOiAjMDAwMDAw Z8IicNVcFThtQ092PZntW uX1HNQdupUpU1TeXXHgbW xuFqU5p8Z5Qb0AXa53FI7 0PK36iVZvh1E4 kMG8L9CiPQQnizbfmszri SC7RVYrHDTzhV79Ar5erJ oeJg3qSRCwTXW2CCWzbAA wG3VagF5oLhAg JPGjZPMeA5IusSMxPCnsS 311SUlbYbU3LSLupuTyZ3 YmZOWtiOdcMgX3t3Z6Zy0 RVCxezlj4K9Bb PjwvdHI+LF21LZYgYC59x EFjaXKxv1mueSw1PzRzOD PoKFD7qMdfNAdhf7WwANL kL02omPAsi3B0 IGNv (more content not included)... [facility] Coding Summary. CD:[id number]:[id number] G h0bWw+PGhlYWQ+UK2XSKY mS14dwTLinF7RE2uOHQ0Q SJDQALUDZF9TLV5wxIU8Z PlmO1GkseKh PpxvdQSdHB46NNj7LZA0a DsqPVqkxU8wxKFzA5k0Ug RwFF23jC21CHhvEWStRsG 3LjZpbjsgbWFy H6ekImIbjPPjCig+PHRhY mxlIHdpZHRoPScxMDAlJy ZyfSkoUN6kLu1bINYnIRY vbGxhcHNlOiBj a1gbGPXmWUgkSX5tpZlcR 9OffLP8JKOfy9t2Mk42vE I+VXWsTRA2yKudICmec75 9EnGps7ltWQN3 qBTeARwcJGE7F98gb1K1P QWtVFYaJNX7bXR2xC2ijF scdudvF1HozBXxIxQ7ZWI 0bIVroK5qwCww dmqvqT1wNfm+C13EMZ1PX BNLJT8DLpy9L7XjVohwjO I+EO89CYQdBT55eEGgnKH dm3etaWf6FoRs KNHqDUB5sYadFKtyj3RvZ KXiX14zpXAip7J4EPZfcW gwqTHjJoNdmXF5pM8qUHj gnuzrp3lxxjoy Lnwyc2mitk00fN35V83dY XztPIZjMRC9QOJrYTGrfX kidk7jjK4rTq5+CSqil9x xz4eloSf7ImOi YTKcbrDooWflKJZ0b4YlH b05E3ZxgRlkc3BeDsv7vz 57gXLcz5S2hLK2AOacOIM vcV3yCGieLfD5 WKWaQxLzuE30hEKmCQipV q2emTussIbqFK4eQTLuem koJIPcdH6uLLJmbUTkpBh gPP5ySNJvpyce r017IjZiKUG8TNNsdEIuD 4IvwL8rDpBlTWDzNQYoH4 BmyNPaTVbdF258CNjaTvJ 2JJGbzxFfY5Fx OAPygCwrHdY8f5Z6Hs2Iz 0SuavgrZXV3KZwuAROgRl A2PrUnEnN3G8BbFoo4XUF bfHkyYZ4qH7Jo ALMbvrtxwdppaYK3MVHwX SZaxZ64tLKaGQrrWv3bf3 G3m773SLOqPTXorI63Wu6 udDogMTBwdCBU sB2fnzjha0gakotmCpAhD FZcFGb9RHb3KDQqaFprDg TbRFG9QvN4BIZ6eSBcoY4 okBhxrdfubE1n Oyc+H02wtZ9yNVJ1QFL1f iscBWSjphCjNE77ZL24I1 RyPjwvdGFibGU+PGRpdiB kzElyIK3zAjOq o3nsh8FcCFyeS2SkRMDpI WsmJrc6RZLeLTW3gVM1kB 5sRBXqPWozr7C7hCO9P0B wbqStzf5if4sn VYRaMIaeZ86wiACeo7P5X OWxnKI7ZNKzuYpmImQfmM 93Oyc+MSHrxHuwc2GqYny dm8hkg0hejEv0 FoYkQAMqwvDwbFukTCQ9u 1BaCx10S38rYSxkFCIoTD QtVPLuBTRuqTzobx5mhY1 wIi8+PGNvbCB3 uRZ2kD6fPKBoNxU9VCzcI 657VrTqyTNpKhdkx0mia4 zfxNv8AwGpSFLznpWrdZp hDPQ4s7LdXq57 N49cBSwePIWiLKCgYFTeN TNmnMqaga5spL3oVz9+PC 3kk0ppkn47cT88rHP+PHR nGUY7cPxpTXdp OLOlkF4dLYxlJtY0AIPyX lGxnX73aNOmBUaqRy7dwA kmaHfkHT7qUMUnawiqv79 9IrQus0axHAEy sGWoQUulBNL9K59cm9Y5P RJbKQSyIYJ7oYI7zW8keE lnbjogbGVmdDsgdmVydGl dBHupXQmuG438 IHRvcDsnPlBhdGllbnQgT uSvJSs2T0HzOdz6RGTxbY djZO5byXVfIEadFr7cfEq bkVopLQ8fNIZa tiuyr605XwAob2znTYCpx JBxSKwbQTZ6I18qy6P8UU OlJPDdGIS4jET7qP9ieHc nbjogbGVmdDsg ooOheChcWRalNOibW321Y HRvcDsnPkJpcnRoIERhdG W6WO71FZ97fRKlh7G0sCM 9P1XzBMBjkpho vwrotTN3QUSlWXHqaR99L k5acHazOa3aRQGzOCK5SQ TrfCKtW7XcpV7bQbKdQBL eLMFpO2EabEVx TBwhC732MGlaZgZ1GDMzo yGgV2OpDQOooGcwTnR7y7 L5Bo4MP7O4XU43IC62tWU uc4F1tQS1U3Xa SVFwszszzktnyCL5IZKnQ FLeaX96Dr3byVwrYx7cDG QhAAJ9EBEguRPuD9DuuQ1 yOiAjMDAwMDAw L1YbkXXfQLmxY601DCibH eJ3BHZeopDgF3YsVHGkmP qtBxR9m5V6Ur5ZPQa5ZP2 7VI86hQBxd6A2 kMH1K1BvDZDiaveyfhpwv VL7MPOuCSZycX37Ju9hkJ htSa8pNBKaPVO9GEDtnDW vX4TcjF7zBfTw UEQsCJYbZ6RvvEHcBJppZ 113HUcjQqK5JWJeybQuZ0 BpHTKoaBhiOdP3w5O8Hp9 VWIViIU66BGZ6 rQQ1LQ19CW06B2SgMswog GFibGU+PHRhYmxlIHdpZH RoPScxMDAlJyBzdHlsZT0 hEr2jJSTlQKPp zKontJMePrRli0mbLSGwQ TnqHG3lkRguN6NteMH2QB Huu2d1Fh24X50tA5QorTC +WRQtcQL5jKB9 gW9kLkXjGwE4CSukJ257Q xSmtRYeExcfg3xde6qlhF t9HpB9PBOxckZuaGtbLOO 4d4CqUy36Z69p IHdpZHRoPSIxNSUiIHZhb Wvhyd7ylF7lIa2+PGNvbC T5oUK2aL5kIlXrZlU0WDa lH744WrZytDIj Gqesn5bts4oirGp2XzUzL CHalvOuwFbtWEZ2f1JqZh 66S9LvyCtse6IiZfl4uc3 3oOVsk3G6rOS9 Y7IbQGQdwbvnnDAtdFknM L3pEJSirpwvGIFyxF2sQP GhV9x7OpVnVoP9RCodP7G aofW2KCKcfBSb AGquFLG2V68pj4T6TTXiX LEiKPY6yRI3vW0hcJnulf ogbGVmdDsgdmVydGljYWw zKUemV047XHYq sSwcMKQujH7bMKJqxVEvi XuaEA2zTIKmimgjMkkBFU QoWZoUMCEUOK41ES49cQF cm3A3tCI2T2Yh EPWwhsqmkorogMT9IREmE QAbyY54kECgGKimBc0gk6 E7y415GKAaPYJqiO73Ut5 udDogMTBwdCBU cW1zgtrha4ywewdkXbPnQ DDgEFz0IXa8AGLmtRfqRo XjCGN9EyO5ANF3tCDrzH0 ifXfapgiiyI8a Oyc+IICgCbdpWCh7WAqcq GQ+ZWTwPRO9bQczKBqnLJ FpcF7cLDAtG6h6FzIwSlO 8WUijP5KrIXSl mzmhKf90nD3hVkDkWoL4G HvxG4ZctzU3QEZfyBIkAS akWLI9W11tf8I9CCOuUQL bTAE6oFZ3dZ5v bGlnbjogbGVmdDsgdmVyd AtmHQqmCCkuV545ZMJdjM efXzXtQHjnABBeXE47ZP5 0uXMqv0A8hLK6 Z7VsYNQhazirsmxkbFS0P NTeTAEzpY40qQFdQUylNd 3dl8N0k017GVVjQWNvoR6 0Wp7dkFusRWTe iCCRuA8gcmksz2cpfuryJ bWcIQWpNOr6KKh5XHYbrS lzQcKyQWM6KeY3ITY5tLL chR0mkIbasjyz kK3fBba+ErFvSRixSR76C S10zNMtr6F9kLL2O1OpRU JylclofnlgyQS5BBUuQOR mkP22oDSeNRrf Tg1bx3K5l937EUGdRHWwb C08Bb9veVwcLRDppXDTbD 1iscvmi5gmcrhfGaKlLFG uGIz6YEp9NTFc eRhdBsOdLSL5XiW1BPS1p QHziI3nxHmwnfugdX0aMz c+MGReCQUgi0Sto7SvPK5 9VL18S9WySmdh dGFibGU+PHRhYmxlIHdpZ HRoPScxMDAlJyBzdHlsZT 8hPo4vFJIuQWGysEbhzZP mVcOst1diCGHp JZpnSN9piIigJ3KuhJX6D WFlp2j7Kf36R88zY3XygB A+SMPhuZO4wZN5xT7lZgS xWiL8AIpmO215 NzQoqTMsMpxee4osb0ipn Mp6InWyTGAfifPwqXvfIC D9i2HeTa61F62cQDiwHOD oPSIyMCUiIHZh lZnhfg8axH2kLd3+PGNvb NC4wVW5xM4tSeTdYsY5IQ bbE172XzTonTEqMfexE89 aY9FhsUX+PHRy Qoa1VXEnhXktSB3pcUFxR RstOu5xBYJ4ToRuSpFyNZ ovN2DhMXYmgvbmmyichIU 3WNVwRKJroT00 Rg8ciFbvLd7fRVRgMTJ5T OWjmELuN2BjoA9qLuNtHO KiUQPpB4EjwULkHMiiD78 8IYbsEgD9COTx hgMnI3NiBUYpxVxcTrC8j 3Z8Dy1EaPhvkGXiGR0mFf OgMNy6L9GjLnd2PXAroEz kVJ8nhEZqCDoz Nl4whMlnySjzSK6bRKWjs edaa720TbEce7haKDXvyO QeAFagAEB3O84jj5L3OZU jMMDwHDJ9hDW3 fJ8jnBtunujmsRXmhUutz cEwuOcyNUfhXNawD577VB JhoUizLmWMOls9J5AlDeh 4ETJthWlwJR7n yEAqWDihPa0fhJpliLyvU B4qEGXwpmfvr403NdVwq4 jpOKMvmZQqPKrtOZZ9B61 mh5K5GNQjEGTi MKF7nIK2xU6peCnwhylqh GVmdDsgdmVydGljYWwtYW jvE431HMZkkJtoOq3ATco 5X9WxUzk4WSFt mUyrRQ5jzSRvWAfjBa8pw GyeoZrbHO2aKQTlwustm3 39XgTyr9gkNGJamNVsZGs eOAM3Y62uf2M9 FQTsHORoRQM5eJW4qU4gl GlnbjogbGVmdDsgdmVydG qxGStoFWfkJ718TLZlpIv nPlBheWVyOjwv dGQ+EK42qr18F9GsAjocT mw7IIDzBUD2pZM0cV5jRI CyIWrub1C7uWS8G2RoraS lms6cu9fiOSRl ZTog (more content not included)... Normal [facility] PAP [id number] 08-15-2021 Cytology report Cyto stain Doc (Cvx/Vag) Note Invalid Interpretation Code [facility] Comment on above: Result Comment: TEST S RESULT FLAG UNITS REF RANGE LAB Clinician Provided Cytology Information Source.............Endocervix No. of containers..01 ThinPrep Vial DIAGNOSIS: 01 NEGATIVE FOR INTRAEPITHELIAL LESION OR MALIGNANCY. Specimen adequacy: 01 Satisfactory for evaluation. No endocervical component is identified. Performed by: 01 Sujey Engle Hardening Machine Operator Helper (ASCP) . 01 Note: Note 01 The [...] Low,>-Panic High,A-Abnormal,AA-Critical Abnormal Performed at: 01 [facility] [address] [place] [address] Mar Rivera MD, Performed By: #### 1 [id number] #### [facility] [address] [place] [address] HPV 16+18+31+33+35+39+45 +51+52+56+58+59+66+6 8 DNA Probe+sig amp Ql (Cvx) Negative Invalid Interpretation Code Negative [facility] Comment on above: Result Comment: This nucleic acid amplification test detects fourteen high-risk HPV types (16,18,31,33,35,39,45,51,52,56,58,59,66,68) without differentiation. Performed at: [facility] [id number] MD Nicole Manuel Performed at: =G [facility] [id number] MD Nicole Manuel Performed By: #### 1 [id number] #### [facility] [address] [place] [address] Insulin Lvlon 08-11-2021 Insulin Qn 24.3 u[IU]/mL Invalid Interpretation Code 2.6-24.9 [facility] Comment on above: Result Comment: Perf ormed at: [facility] [id number] PhD Archie Jha Performed By: #### 1 [id number] #### [facility] [address] [place] [address] Consent for Treatmenton 07-29 Consent for Treatment [id number] .00CD:127 Normal [facility] Glu Fastingon 08-10-2021 Glucose [Mass/Vol] 95 mg/dL Normal 55-99 [facility] Comment on above: Performed By: #### 1 [id number] #### [facility] [address] [place] [address] Physician Orderon 08-10-2021 Physician Order [id number]# 1.00CD:127 Normal [facility] PAP [id number] 08-09-2021 Collection Technique BRUSH-SPATULA Normal F [facility] Comment on above: Performed By: #### 1 [id number] #### [facility] [address] [place] [address] Gynecological Body Site ENDOCERVIX Normal [facility] Comment on above: Performed By: #### 1 [id number] #### [facility] [address] [place] [address] Physician Orderon 08-09-2021 Physician Order [id number] .00CD:127 Normal [facility] Gynecology Office/Clinic Not pratik 02-17-2019 Gynecology [...] Family History Family history is negative Normal [facility] Comment on above: Result Comment: Elec tronically Signed By: Shamika ISAACS, Kaley Pablo.br\Date and Time Signed: 02/17/19 12:09 EDT Gynecology [...] Family History Family history is negative Normal [facility] Comment on above: Result Comment: Elec tronically Signed By: Shamika ISAACS, Kaley Wilson\.br\Date and Time Signed: 02/17/19 12:09 EDT Vital Signs Date Time Vital Sign Value Performing Clinician Facility 05-25-2024 11:46-0400 Body mass index (BMI) [Ratio] 33.84 kg/m2 Luis Yobani DO Work Phone: [facility] 05-25-2024 11:46-0400 Body weight 83.92 kg [facility] 05-25-2024 11:46-0400 Diastolic blood pressure 74 mm[Hg] Luis Yobani DO Work Phone: [facility] 05-25-2024 11:46-0400 Systolic blood pressure 118 mm[Hg] [facility] DO Work Phone: [facility] 01-02-2024 09:15-0400 Body height 157.48 cm [facility] 01-02-2024 09:15-0400 Body mass index (BMI) [Ratio] 33.9 kg/m2 [facility] 01-02-2024 09:15-0400 Body temperature 100.2 [degF] [facility] 01-02-2024 09:15-0400 Body weight 84.08 kg [facility] 01-02-2024 09:15-0400 Heart rate 115 /min [facility] 01-02-2024 09:15-0400 Respiratory rate 18 /min [facility] 01-02-2024 09:15-0400 SaO2% (BldA) [Mass fraction] 99 % [facility] Encounters Encounter Date Encounter Type Care Provider Facility Start: 05-27-2024 End: 05-27-2024 Chart abstracting Cele Bourgeois MD Work Phone: [facility] Start: 05-25-2024 End: 05-25-2024 Bamboo flowsheet Luis Yobani DO Work Phone: [facility] Start: 05-25-2024 End: 05-25-2024 Bamboo flowsheet Luis Yobani DO Work Phone: [facility] Start: 05-25-2024 End: 05-25-2024 Patient encounter procedure Luis Yobani DO Work Phone: [facility] Work Phone: Start: 05-25-2024 End: 05-25-2024 flow sheet Luis Yobani DO Work Phone: [facility] Comment on above: Well woman exam with routine gynecological exam; Second trimester ; Vaginal discharge; STD exposure Start: 05-25-2024 End: 05-25-2024 ambulatory LUIS YOBANI Not Available Start: 04-27-2024 End: 04-27-2024 ambulatory LUIS YOBANI Not Available Start: 03-27-2024 End: 03-27-2024 ambulatory LUIS YOBANI Not Available Start: 01-02-2024 End: 01-02-2024 ambulatory JOHNNY FERNANDEZ Not Available Start: 01-02-2024 End: 01-02-2024 ambulatory [facility] Work Phone: Start: 01-02-2024 End: 01-02-2024 Patient encounter procedure [facility] Work Phone: Start: 11-27-2023 End: 11-27-2023 ambulatory LUIS YOBANI Not Available Start: 07-26-2022 End: 07-27-[address] LUIS HILTON . Facility:[facility] Start: 07-12-2022 End: 07-12-[address] LUIS HILTON . Facility:[facility] Start: 06-28-2022 End: 06-29-[address] LUIS HILTON . Facility:[facility] Start: 05-31-2022 End: 06-27-[address] LUIS HILTON . Facility:[facility] Start: 05-17-2022 End: 05-18-[address] LUIS HILTON . Facility: Start: 04-28-2022 End: 04-29-[address] LUIS HILTON . Facility:[facility] Start: 04-04-2022 End: 04-05-[address] LUIS HILTON . Facility:[facility] Procedures Date Procedure Procedure Detail Performing Clinician Start: 04-08-2024 Blood count complete automated Not In System Ref Prov Start: 04-08-2024 Syphilis test non-treponemal antibody qual Not In System Ref Prov Start: 04-08-2024 TYPE AND SCREEN Not In System Ref Prov Plan of Treatment Date Care Activity Detail Author Start: 06-22-2024 End: 06-22-2024 Patient encounter procedure 06/22/2024 1:50 PM EST Routine [facility] [address] [place] [id number] Luis Hilton, DO [address] [place] [address] [facility] Start: 06-15-2024 End: 06-15-2024 Patient encounter procedure [facility] Start: 05-25-2024 End: 11-23-2024 Alpha fetoprotein, maternal Alpha fetoprotein, maternal Lab Routine Second trimester Expected: 05/25/2024 (Approximate), Expires: 11/23/2024 [facility] Comment on above: Expected: 05/25/2024 (Approximate), Expires: 11/23/2024 Start: 05-25-2024 End: 05-25-2024 Patient encounter procedure 05/25/2024 11:10 AM EDT Routine [facility] [address] [place] [id number] Luis Hilton, DO [address] [place] [address] Arrived [facility] Comment on above: Arrived Start: 03-29-2024 Influenza vaccination N [facility] Start: 2020 Screening for malignant neoplasm of cervix Pap Smear [facility] Start: 2018 DTaP,Tdap and Td Vaccines (1 - Tdap) DTaP,Tdap and Td Vaccines (1 - Tdap) [facility] Start: 2017 Adult BMI Screening Adult BMI Screen ing [facility] Start: 2011 Depression Screening Depression Scre ening [facility] Start: 2011 Tobacco Screening Tobacco Screening [facility] CHLAMYDIA TRACHOMATI S (GENITO/STI) CHLAMYDIA TRACHOMATIS (GENITO/STI) Lab Routine STD exposure Ordered: 05/25/2024 [facility] Comment on above: Ordered: 05/25/2024 Cytology Cervical or vaginal smear or scraping study Pap Smear Pathology and Cytology Routine Well woman exam with routine gynecological exam Ordered: 05/25/2024 [facility] Work Phone: Comment on above: Ordered: 05/25/2024 Neisseria gonorrhoea e DNA [Presence] in Unspecified specimen by BUCK with probe detection Neisseria gonorrhea DNA probe, direct Lab Routine STD exposure Ordered: 05/25/2024 [facility] Comment on above: Ordered: 05/25/2024 SURESWAB(R) ADVANCED VAGINITIS PLUS, TMA SURESWAB(R) ADVANCED VAGINITIS PLUS, TMA Pathology and Cytology Routine Vaginal discharge Ordered: 05/25/2024 [facility] Comment on above: Ordered: 05/25/2024 Payers Date Payer Category Payer Commercial Managed C are - [employer] Member Subscriber Plan / Payer (Effective 2023-Present) Name: Amy Mario Relation to Subscriber: Spouse Name: MICKI MARIO Date of : 1998 Address: [address] [place] [address] [address] [place] [address] Payer ID: Not on file Type: Not on file Address: [facility] [address] [id number] 2023 [facility] er [id number] 2023 Unknown [id number] 2021 Private Health Insurance [id number] 2021 Unknown [id number] 1999 Unknown [id number] 2.16.840.1.715548.3.579.2. 593 1999 Unknown [id number] 2.16.840.1.353962.3.579.2. 593 1999 Unknown [id number] 2.16.840.1.079203.3.579.2. 593 1999 Unknown [id number] 2.16.840.1.329626.3.579.2. 593 1999 Unknown [id number] 2.16.840.1.951993.3.579.2. 593 1999 Unknown [id number] 2.16.840.1.138945.3.579.2. 593 1999 Unknown [id number] 2.16.840.1.854936.3.579.2. 593 1999 Unknown [id number] 2.16.840.1.830975.3.579.2. 1259 1999 Unknown [id number] 2.16.840.1.077971.3.579.2. 1259 1999 Unknown [id number] 2.16.840.1.982205.3.579.2. 1259 1999 Unknown [id number] 2.16.840.1.814478.3.579.2. 1259 1999 Unknown [id number] 2.16.840.1.355698.3.579.2. 1259 1959 Private Health Insurance [id number] 1959 Unknown [id number] Social History Date Type Detail Facility [facility] Work Phone: Start: 2000 Sex Assigned At Female [facility] Start: 01-02-2024 End: 05-27-2024 Tobacco smoking status TNIS Never smoked tobacco [facility] Start: 01-02-2024 End: 05-27-2024 Tobacco use and exposure Smokeless tobacco non-user [facility] Start: 04-27-2024 End: 05-25-2024 Alcoholic beverage intake Ex-drinker (finding) [facility] Start: 01-02-2024 End: 05-27-2024 History of Social function [facility] Start: 01-02-2024 End: 05-27-2024 Tobacco use panel [facility] Start: 01-30-2024 [facility] Start: 11-26-2023 Gender identity Identifies as female gender (finding) [facility] Start: 05-27-2024 Alcoholic beverage intake Lifetime non-drinker (finding) [facility] Start: 2000 Sex assigned at Not on file [facility] Start: 05-26-2024 [facility]finding[facility] Goals Date Patient Goal Desired Activity /State Personal health goal History of Present illness Narrative 05-25-2024 Esperanza Peter LPN - 05/25/2024 11:10 AM EDT Note Date & Type Note Facility 05-25-2024 History of Presen t illness Narrative Reason for Appointment: Patient ID: Amy Mario is a 23 y.o. female who presents for Routine Visit, Well Women Visit, and STI Screening Patient presents today for Annual Exam. and Return OB appointment. MEDICATIONS Current Outpatient Medications Medication Instructions acyclovir (ZOVIRAX) 800 mg, Oral, 2 times daily BD [employer] misc 1 each, Does not apply, As needed estradiol (ESTRACE) 2 mg ibuprofen 600 MG tablet 1 tablet, Oral, Every 6 hours labetalol (NORMODYNE) 200 mg, Oral, 2 times daily metFORMIN (GLUCOPHAGE) 2,000 mg, Oral, Daily Multiple Vitamin (multivitamin) tablet 1 tablet, Oral, Daily predniSONE (DELTASONE) 5 mg, Oral, Daily ALLERGIES Allergies Allergen Reactions Griggs Flavor [Griggs Oil] Latex Hives, Itching, Rash and Swelling PROBLEMS Active Ambulatory Problems Diagnosis Date Noted 14 weeks gestation of 04/27/2024 Second trimester 04/27/2024 Resolved Ambulatory Problems Diagnosis Date Noted No Resolved Ambulatory Problems Past Medical History: Diagnosis Date Female infertility Hormone disorder Hypertension (CMS/HCC) Ovarian cyst Polycystic ovary syndrome conceived through in vitro fertilization HISTORY PAST MEDICAL HISTORY SOCIAL HISTORY Past Medical History: Diagnosis Date Female infertility Hormone disorder Hypertension (CMS/HCC) Ovarian cyst Polycystic ovary syndrome conceived through in vitro fertilization Social History Tobacco Use Smoking status: Never Smokeless tobacco: Never Substance Use Topics Alcohol use: Not Currently Drug use: Never FAMILY HISTORY Family History Problem Relation Name Age of Onset Diabetes Father Terry [place] Heart failure Father Terry [place] Heart failure Father's Brother A baby- hole in heart resulted in SURGICAL HISTORY Past Surgical History: Procedure Laterality Date TONSILLECTOMY REVIEW OF SYSTEMS Review of Systems: Review of Systems All other systems reviewed and are negative. OBJECTIVE Objective: Physical Exam Constitutional: Appearance: Normal appearance. She is well-developed. Genitourinary: Vulva normal. Breasts: Breasts are soft. Right: Normal. Left: Normal. Cardiovascular: Rate and Rhythm: Normal rate and regular rhythm. Pulmonary: Effort: Pulmonary effort is normal. Breath sounds: Normal breath sounds. Abdominal: General: Bowel sounds are normal. There is no distension. Palpations: Abdomen is soft. Tenderness: There is no abdominal tenderness. There is no guarding or rebound. Musculoskeletal: General: No swelling. Normal range of motion. Right lower leg: No edema. Left lower leg: No edema. Neurological: Mental Status: She is alert and oriented to person, place, and time. Skin: General: Skin is warm and dry. Psychiatric: Mood and Affect: Mood normal. Behavior: Behavior normal. Vitals and nursing note reviewed. Exam conducted with a pharmacy assistant present. Vitals: Estimated body mass index is 33.84 kg/m as calculated from the following: Height as of 24: 5' 2 . Weight as of this encounter: 185 lb. BP: 118/74 No LMP recorded. Patient is . ASSESSMENT & PLAN ICD-10-CM 1. Well woman exam with routine gynecological exam Z01.419 Pap Smear 2. Second trimester Z34.92 Alpha fetoprotein, maternal Alpha fetoprotein, maternal 3. Vaginal discharge N89.8 SURESWAB(R) ADVANCED VAGINITIS PLUS, TMA 4. STD exposure Z20.2 CHLAMYDIA TRACHOMATIS (GENITO/STI) Neisseria gonorrhea DNA probe, direct Return OB/Annual Exam: Patient presents today for a annual exam/routine obstetrics appointment. Patient is currently 18w4d . Patient states she is doing well but has complaints of nausea in the morning. Pap and cultures was obtained without difficulty and patient was given orders for anatomy scan and msAFP to be obtained. Orders Placed This Encounter Procedures Alpha fetoprotein, maternal CHLAMYDIA TRACHOMATIS (GENITO/STI) Neisseria gonorrhea DNA probe, direct Follow Up: Patient is to schedule annual exam for next year and return to office in 4 weeks for OB appointment. Documented by Esperanza Peter LPN on behalf of: Luis Hilton DO documented in this encounter [facility] Evaluation note Note Date & Type Note Facility Evaluation note No assessment information [facility] Work Phone: Evaluation note Note Date & Type Note Facility Evaluation note Diagnosis Well woman exam with routine gynecological exam Routine gynecological examination Second trimester state, incidental Vaginal discharge Leukorrhea, not specified as infective STD exposure documented in this encounter [facility] Healthcare Instructions Note Date & Type Note Facility Instructions Not on filedocumented in this en counter [facility] Instructions Note Date & Type Note Facility Instructions Not on filedocumented in this en counter [facility] Summary Purpose Family History Relationship Condition Age at Onset Recorded Date/T yosi family member Unknown Heart disease Unknown Advance Directives Advance Directive Response Recorded Date/ Time Advance Directives No January 01 9:07am Chief Complaint and Reason for Visit Chief Complaint Congestion Additional Source Comments INFORMATION SOURCE (unrecogn ized section and content) DATE CREATED AUTHOR 03/06/2019 Blackwell Gigi [facility] DATE CREATED AUTHOR AUTHOR'S ORGANIZ ATION 12/21/2021 Blackwell Gigi [facility] DATE CREATED AUTHOR AUTHOR'S ORGANIZ ATION 12/01/2022 [facility] DATE CREATED AUTHOR AUTHOR'S ORGANIZ ATION 05/26/2024 [facility] Care Teams (unrecognized sec tion and content) Team Status: Active Member Role Status Dates Damon Stover DO Primary Care Provider Active Team Status: Inactive Member Role Status Dates Damon Stover , Primary Care Provider Active Start: January 02, 2024 End: January 02, 2024 Teresa Sanchez APRN Attending Provider Active S tart: January 02, 2024 End: January 02, 2024 [employer] Relationship Specialty Start Date End Date Kayce Grant MD [address] [place] [address] PCP - General Family Medicine 11/27/23 [employer] Relationship Specialty Start Date End Date Kayce Grant MD [address] [place] [address] PCP - General Family Medicine 11/27/23 Goals (unrecognized section and content) Goals may be documented in a n alternate sectionNot on filedocumented as of this encounterNot on filedocumented as of this encounter Reason for Visit (unrecogniz ed section and content) Reason Comments Routine Visit Well Women Visit STI Screening FOR RECORDS PERTAINING TO PATIENTS WHO ARE [...] BE BASED ON THE PRIMARY CLINICAL RECORDS. [facility]. provides no warranty or guarantee of the accuracy or completeness of information in this document.
[2024-05-30 01:07] LABS: AFP Value 55.4 ng/mL (.); Gest. Age on Collection Date 18.6 weeks (.); Insulin Dep Diabetes No (.); Maternal Age At EDD 25.3 yr (.); OSBR Risk 1 IN 4034 (.); Results Report (.)
== END 2024-05-28 08:48 | disposition home or self-care (01) ==
LOC: LAB 08:49
PROVIDERS: PCP Family Medicine; Visit Provider Obstetrics & Gynecology
DX: O09.819 Supervision of pregnancy resulting from assisted reproductive technology, unspecified trimester (principal)
CPT/HCPCS: 36415; 82105

== ENCOUNTER 2024-06-29 07:53 | Outpatient (OUT) | payer OTHER, BC, SELFPAY ==
--- NOTE | 2024-06-29 | ECG_ITS ---
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
--- OUTSIDE RECORDS SUMMARY | 2024-06-29 08:09 | XMS_ITS | CCD ---
Author Organization [facility] Care Team Providers Care Cell Reliner Name Role Phone YOBANI ., DR SMITH [...] GRANT, DR KAYCE Watson Primary Care Unavailable ZIEBER, DR LUCHO Johnson Consulting Unavailable YOBANI ., DR SMITH Admitting Unavailable YOBANI ., DR SMITH Attending Unavailable YOBANI ., DR SMITH Consulting Unavailable GRANT, DR KAYCE Watson Primary Care Unavailable YOBANI ., DR SMITH Admitting Unavailable YOBANI ., DR SMITH Attending Unavailable ZULEIMA, DR CLEMENTINE Mayo Consulting Unavailable RUDY, DR KYACE Watson Primary Care Unavailable YOBANI ., DR [...] Unavailable Kayce Grant MD Primary Care Provider Unavailable Primary Care Provider Unavailguy e LUIS HILTON Referring Unavailable HUGO RODRIGUEZ Attending Unavailable LUIS HILTON R Referring Unavailable LUIS HILTON Attending Unavailable JOHNNY FERNANDEZ Attending Unavailable YOBANI, LUIS Attending Unavailable YOBANI, LUIS Attending Unavailable LUIS HILTON Attending Unavailable Allergies Allergy Classification Reported Allergen(s) Allergy Type Date of Onset Reaction(s) Facility (2 sources) Latex Drug allergy (disorder) 0 hives [facility] (1 source) orange flavor Drug allergy (disorder) 0 [facility] (5 sources) [place] - fruit; Translations: [ORANGE] 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 4 anaphylaxis [facility] (11 sources) Latex 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 4 Hives, Itching, Rash, Swelling [facility] (8 sources) orange allergenic extract Drug Allergy 4 [facility] Work Phone: (1 source) natural latex rubber; Translations: [LATEX, NATURAL RUBBER] Propensity to adverse reactions to drug (disorder) 4 [facility] Medications Current Medications Medication Drug Class(es) Dates Sig (Normalized) Sig (Original) acyclovir 800 mg oral tablet (11 sources) Herpesvirus Nucleoside Analog DNA Polymerase Inhibitor, [...] Twice daily 20 January 02, 2024 12:00am aspirin 81 mg chewable tablet (1 source) Platelet Aggregation Inhibitor, Nonsteroidal Anti-inflammatory Drug Start: 06-15-2024 aspirin 81 mg chewable tablet Indications: 21 weeks gestation of , Chronic hypertension affecting , In vitro fertilization Take 1 tablet once a day until delivery and then stop 30 tablet 6 06/15/2024 Active Start: 06-15-2024 aspirin 81 mg chewable tablet Indications: 21 weeks gestation of , Chronic hypertension affecting , In vitro fertilization Take 1 tablet once a day until delivery and then stop 30 tablet 6 06/15/2024 Active BD [employer] misc (8 sources) Start: 03-24-2024 [facility] [employer] [facility] Indications: Female infertility 1 each if needed (1 large container) 1 each 1 03/24/2024 Active cholecalciferol 0.05 mg oral tablet (3 sources) Vitamin D take 1 tablet by mouth in the morning cholecalciferol, vitamin D3, 2,000 units tablet Take 1 tablet (2,000 Units total) by mouth in the morning. Active estradiol 2 mg oral tablet (9 sources) Estrogen Start: 12-31-2023 estradiol (Estrace) 2 MG tablet 2 mg 12/31/2023 Active ibuprofen 600 mg oral tablet (8 sources) Nonsteroidal Anti-inflammatory Drug Start: 01-04-2023 take 1 tablet by mouth every six hours ibuprofen 600 MG tablet Take 1 tablet by mouth every 6 (six) hours 01/04/2023 Active labetalol hydrochloride 200 mg oral tablet (11 sources) beta-Adrenergic Kyle Start: 01-02-2024 take 100 [...] 12:00am metFORMIN hydrochloride 500 mg oral tablet (11 sources) Biguanide Start: 04-30-2023 take 4 tablets [...] tablet (500 mg total) before bedtime. Active methylPREDNISolone (3 sources) Corticosteroid Start: 06-16-2024 methylPREDNISolone (Medrol Dospak) 4 MG tablets Indications: Poison contreras Day 1: 6 tablets Day 2: 5 tablets Day 3: 4 tablets Day 4: 3 tablets Day 5: 2 tablets Day 6: 1 tablet 21 tablet 06/16/2024 Active metroNIDAZOLE 500 mg oral tablet (1 source) Nitroimidazole Antimicrobial Start: 05-27-2024 End: 06-03-2024 take 1 tablet by mouth in the morning metroNIDAZOLE (Flagyl) 500 MG tablet Indications: BV (bacterial vaginosis) Take 1 tablet (500 mg) by mouth in the morning and 1 tablet (500 mg) before bedtime. Do all this for 7 days. Do not drink alcohol while taking this medication. 14 tablet 05/27/2024 06/03/2024 Active Multiple Vitamin (multivitamin) tablet (8 sources) take 1 tablet by mouth once daily Multiple Vitamin (multivitamin) tablet Take 1 tablet by mouth Daily Active norethindrone acetate 5 mg oral tablet (1 source) Start: 01-02-2024 take 5 mg by mouth once daily Norethindrone Acetate Active 5 MG PO Daily January 02, 2024 12:00am ondansetron 4 mg oral tablet (3 sources) Serotonin-3 Receptor Antagonist take 1 tablet by mouth every eight hours as needed for nausea and vomiting ondansetron (ZOFRAN) 4 mg tablet Take 1 tablet (4 mg total) by mouth every 8 (eight) hours as needed for nausea or vomiting. Active predniSONE 10 mg oral tablet (12 sources) Start: 01-29-2024 take 5 mg by mouth once daily predniSONE (Deltasone) 10 MG tablet Take 5 mg by mouth Daily 01/29/2024 Active Start: 01-02-2024 take 10 mg by mouth twice simon y Prednisone Active 10 MG PO Twice daily January 02, 2024 12:00am take 1 tablet by gt in the morning predniSONE (DELTASONE) 5 mg tablet Take 1 tablet (5 mg total) by mouth in the morning. Active no122/iron/folic acid ( MULTI ORAL) (3 sources) take 1 tablet by mouth in [...] 2024 12:00am terconazole 4 mg/ml vaginal cream (3 sources) Azole Antifungal Start: End: terconazole (Terazol 7) 0.4 % vaginal cream Indications: Yeast infection Insert 1 applicator into the vagina at bedtime for 7 days 45 g 05/27/2024 06/03/2024 Active Problems Active Problems Problem Classification Problem Date Documented Date Episodic/Chronic Contraceptive and procreative management (8 sources) Encounter for other procreative management; Translations: [Patient encounter status] Onset: 07-26-2022 Episodic Essential hypertension (3 sources) Hypertensive disorder; Translations: [Essential (primary) hypertension] Onset: 05-27-2024 05-27-2024 Chronic Female infertility (6 sources) Female infertility associated with anovulation; Translations: [Female infertility] Onset: 07-12-2022 Chronic Hypertension complicating ; childbirth and the puerperium (2 sources) Chronic hypertension complicating AND/OR reason for care during ; Translations: [Unspecified pre-existing hypertension complicating , unspecified trimester] Onset: 06-15-2024 06-15-2024 Chronic Immunizations and screening for infectious disease (2 sources) Exposure to sexually transmissible disorder; Translations: [Contact with and (suspected) exposure to infections with a predominantly sexual mode of transmission] 05-25-2024 Episodic Other circulatory disease (2 sources) History of clinical finding in subject; Translations: [Personal history of other diseases of the circulatory system] 06-22-2024 Episodic Other endocrine disorders (4 sources) Polycystic ovarian syndrome; Translations: [POLYCYSTIC OVARIAN SYNDROME] Onset: 04-04-2022 Chronic Other endocrine disorders (2 sources) Polycystic ovary syndrome; Translations: [Polycystic ovarian syndrome] Onset: 05-27-2024 05-27-2024 Chronic Other female genital disorders (2 sources) Vaginal discharge; Translations: [Other specified noninflammatory disorders of vagina] 05-25-2024 Episodic Other and delivery including normal (12 sources) Second trimester ; Translations: [Encounter for supervision of normal , unspecified, second trimester] Onset: 04-27-2024 04-27-2024 Episodic Other screening for suspected conditions (not mental disorders or infectious disease) (1 source) Encounter for other specified screening; Translations: [Encounter for other specified screening] Onset: 06-15-2024 Episodic Residual codes; unclassified (8 sources) Gestation period, 14 weeks; Translations: [14 weeks gestation of ] Onset: 04-27-2024 04-27-2024 Episodic Residual codes; unclassified (1 source) Gestation period, 21 weeks; Translations: [21 weeks gestation of ] 06-15-2024 Episodic Residual codes; unclassified (1 source) 21 weeks gestation of ; Translations: [21 weeks gestation of ] Onset: 06-15-2024 Episodic Residual codes; unclassified (2 sources) Gestation period, 22 weeks; Translations: [22 weeks gestation of ] 06-22-2024 Episodic Thyroid disorders (1 source) Nontoxic single thyroid nodule; Translations: [NONTOXIC SINGLE THYROID NODULE] Onset: 04-08-2022 Chronic Unclassified (8 sources) OB Reminders Onset: 05-18-2024 05-18-2024 Unclassified (1 source) IVF Onset: 06-15-2024 Past or Other Problems Problem Classification Problem Date Documented Da te Episodic/Chronic Ovarian cyst (4 sources) Other ovarian cyst, left side; Translations: [OTHER OVARIAN CYST LEFT SIDE] Onset: 05-17-2022 Episodic Results Test Name Value Interpretation Reference Range Facility Urinalysis macro (dipstick) panel (U)on 06-22-2024 Bilirubin, UA Negative Negative - 4(70) +++ mg/dL [facility] Blood, UA Negative Negative - 50 Jimy/mcL [facility] Clarity, UA Clear [facility] Color, UA Yellow [facility] Glucose, UA Negative Negative - 1999(110) ++++ mg/dL [facility] Interpretation and review of laboratory results Abnormal [facility] Ketones, UA Positive Negative - 160(16) ++++ mg/dL [facility] Comment on above: 15 Leukocytes, UA Positive Negative - 500+++ Mychal/mcL [facility] Comment on above: small Nitrite, UA Negative Negative - Positive [facility] pH, UA 5.5 5 - 9 [facility] Protein, UA Trace Negative - 1999(20) ++++ mg/dL [facility] Spec Grav, UA 1.03 1 - 1.03 [facility] Urobilinogen, UA 0.2 0.2 - 12 mg/dL [facility] IGP,APTIMA HPV,AGE GDLNon AGE GDLN ACOG TESTING Note . [facility] Comment on above: TESTS RESULT FLAG UN ITS REF RANGE LAB Clinician Provided Cytology Information Source.............Cervix Other.............. No. of containers..01 ThinPrep Vial Age Algo ACOG Michelle... FLAG LEGEND: L-Low Normal,H-High Normal,LL-Alert Low,HH-Alert High <-Panic Low,>-Panic High,A-Abnormal,AA-Critical Abnormal Performed at: 01 =G [address] [address] Mar Rivera MD, IGP, RFX APTIMA HPV ASCU Note . [facility] Comment on above: TESTS RESULT FLAG U NITS REF RANGE LAB DIAGNOSIS: 02 NEGATIVE FOR INTRAEPITHELIAL LESION OR MALIGNANCY. FUNGAL ORGANISMS MORPHOLOGICALLY CONSISTENT WITH CARLOS SPECIES ARE PRESENT. Specimen adequacy: 02 Satisfactory for evaluation. No endocervical component is identified. An endocervical component is not commonly seen in the patient. Performed by: Judy Vera, Terrazzo Finisher Helper ([facility]) . 02 Note: Note 02 The Pap smear is a screening test designed to aid in the detection of premalignant and malignant conditions of the uterine cervix. It is not a diagnostic procedure and should not be used as the sole means of detecting cervical cancer. Both false-positive and false-negative reports do occur. Test Methodology: Note 02 This liquid based ThinPrep(R) pap test was screened with the use of an image guided system. . 02 The HPV DNA reflex criteria were not met with this specimen result therefore, no HPV testing was performed. FLAG LEGEND: L-Low Normal,H-High Normal,LL-Alert Low,HH-Alert High <-Panic Low,>-Panic High,A-Abnormal,AA-Critical Abnormal Performed at: [address] [facility] [place] [address] Mar Rivera MD, Performed at: =G - [facility] [address], [place] [id number] Specialty Molder: Mar Rivera MD, Phone: [phone] Performed at: - [facility] [id number] Specialty Molder: Mar Rivera MD, Phone: [phone] [facility] AFP, SERUM, OPEN SPINA BIFID Aon 05-30-2024 AFP MOM 1.36 . [facility] AFP VALUE 55.4 ng/mL . [facility] COMMENT: Comment . [facility] Comment on above: Ivet Mobley , Ph.D., [facility] Director References: Available Upon Request. Multiples Of Median Cutoffs For AFP Elevations [place] Rosario 2.5 Black 2.8 IDD 2.0 Twins 4.5 Abbreviation Definitions IDD - Insulin Dep Diabetes OSBR - Open Spina Bifida Risk For further inquiries contact [facility] at [phone]. This test was developed and its performance characteristics determined by [employer]. It has not been cleared or approved by the Food and Drug Administration. Performed at: [facility] [address], [place] [id number] Specialty Molder: Kristina Carter [facility], Phone: [phone] GEST. AGE ON COLLECTION DATE 18.6 . weeks [facility] GESTAT. AGE BASED ON LMP . [facility] Comment on above: Recalculations are n ot recommended when gestational dating by LMP and ultrasound are within 10 days. INSULIN DEP DIABETES No . [facility] INTERPRETATION Comment . [facility] Comment on above: Interpretation: Scre en Negative This result is screen negative for OSB. The AFP MoM calculated is based on the gestational age provided. MS-AFP can identify up to 80% of open neural tube defects. Closed neural tube defects and some open defects may not be detected by this test. This test does not screen for Down Syndrome or Trisomy 18. If screening for Down Syndrome or Trisomy 18 is desired, contact [facility] to discuss available options. The [employer] recommends amniocentesis be offered to women age 35 and older. MATER[age] AT SARA 25.3 [age] [facility] MULTIPLE GESTATION No . [facility] OSBR RISK 1 IN 4034 . [facility] RACE . [facility] RESULTS Report . [facility] TEST RESULTS: Negative . [facility] WEIGHT 185 . lbs [facility] N N LMP [id number] 4 18 N 1 Y 185 N N N N N White/ [facility] CBC without diffon Hematocrit (Bld) [Volume fraction] 39.6 % [facility] Hemoglobin (Bld) [Mass/Vol] 13.7 g/dL [facility] Rbc Mcv (Fl) By Automated Count [facility] No Panel Informationon 04-08 [facility] Rubella IGG immune statuson 04-08-2024 Rubella immune IgG 2.32 [facility] Syphilis Total(Unknown Syphi lis Status)on 04-08-2024 Syphilis Non-Reactive [facility] Type and screenon 04-08-2024 Abo/Rh(D) Positive [facility] PROGESTERONEon 07-27-2022 Progesterone 26.9 ng/mL Normal [facility] Comment on above: Result Comment: Foll icular phase 0.1 - 0.9 Luteal phase 1.8 - 23.9 Ovulation phase 0.1 - 12.0 First trimester 11.0 - 44.3 Second trimester 25.4 - 83.3 Third trimester 58.7 - 214.0 Postmenopausal 0.0 - 0.1 Performed By: #### P ROGES #### [facility] [address] [place] [address] Dr. Ryan Francisco PREG QUANT HCGon 07-12-2022 HCG QUANT <1 Normal [facility] Comment on above: Performed By: #### P REGQNT #### [facility] [address] [place] [address] Dr. Ryan Francisco HCG RANGE SEE BELOW Normal [facility] Comment on above: Result Comment: 5-50 0.2-1 WEEK 50-500 1-2 WEEKS 100-5,000 2-3 WEEKS 500-10,000 3-4 WEEKS 1,000-50,000 4-5 WEEKS 10,000-100,000 5-6 WEEKS 15,000-200,000 6-8 WEEKS 10,000-100,000 2-3 MONTHS Performed By: #### P REGQNT #### [facility] [address] [place] [address] Dr. Ryan Francisco XR HYSTEROSALPINGO EXPon XR [...] CLEMENTINE DEWEY Date: 2022-07-12 12:34 Normal [facility] PROGESTERONEon 06-29-2022 Progesterone 4.6 ng/mL Normal [facility] Comment on above: Result Comment: Foll icular phase 0.1 - 0.9 Luteal phase 1.8 - 23.9 Ovulation phase 0.1 - 12.0 First trimester 11.0 - 44.3 Second trimester 25.4 - 83.3 Third trimester 58.7 - 214.0 Postmenopausal 0.0 - 0.1 Performed By: #### P BRETT #### [facility] [address] [place] [address] Dr. Ryan Francisco PROGESTERONEon 06-01-2022 Progesterone 18.9 ng/mL Normal [facility] Comment on above: Result Comment: Foll icular phase 0.1 - 0.9 Luteal phase 1.8 - 23.9 Ovulation phase 0.1 - 12.0 First trimester 11.0 - 44.3 Second trimester 25.4 - 83.3 Third trimester 58.7 - 214.0 Postmenopausal 0.0 - 0.1 Performed By: #### P BRETT #### [facility] [address] [place] [address] Dr. Ryan Francisco US PELVIS AND TRANSVAGon [...] CLEMENTINE DEWEY Date: 2022-05-17 17:25 Normal [facility] PROGESTERONEon 04-29-2022 Progesterone 5.1 ng/mL Normal [facility] Comment on above: Result Comment: Foll icular phase 0.1 - 0.9 Luteal phase 1.8 - 23.9 Ovulation phase 0.1 - 12.0 First trimester 11.0 - 44.3 Second trimester 25.4 - 83.3 Third trimester 58.7 - 214.0 Postmenopausal 0.0 - 0.1 Performed By: #### P BRETT ####[facility] [address] [place], [place] [address]HgDr. Ryan Francisco ANTI-MULLERIAN HORMONEon Anti-Mullerian Hormone (AMH) 6.09 ng/mL Normal [facility] Comment on above: Result Comment: For assays employing antibodies, the possibility exists for interference by heterophile antibodies in the samples.1 1.Steffen Wilson Interferences in Immunoassays - still a threat. Clin. Chem. 2000; 46: 1935-1468. This test was developed and its performance characteristics determined by [employer]. It has not been cleared or approved by the Food and Drug Administration. Reference Range: Females 20 - 25y: 1.23 - 11.51 Median 4.70 AMH concentrations of >= 1.06 ng/mL is correlated with a better response to ovarian stimulation, produced more retrievable oocytes and higher odds of live according to Gleicher et al. Fertility and Sterility. 2010: 94:8373-4389. The current AMH test method correlates with [...] tumor. Performed By: #### A WEI #### [facility] [address] [place], [place] [address] Dr. Ryan Francisco FSHon 04-05-2022 FSH 3.6 mIU/mL Normal [facility] Comment on above: Result Comment: Adul t Female: Follicular phase 3.5 - 12.5 Ovulation phase 4.7 - 21.5 Luteal phase 1.7 - 7.7 Postmenopausal 25.8 - 134.8 Performed By: #### L [facility] #### [facility] [address] [place] [address] [address] Ryan Francisco LUTEINIZING HORMONE (LH)on 0 04-05-2022 LH 6.8 mIU/mL Normal [facility] Comment on above: Result Comment: Adul t Female: Follicular phase 2.4 - 12.6 Ovulation phase 14.0 - 95.6 Luteal phase 1.0 - 11.4 Postmenopausal 7.7 - 58.5 Performed By: #### L BCL ####[facility] [address] [place], [place] [address]IsDr. Ryan Francisco CBC AUTO DIFFon 04-04-2022 BASO # 0.0 103/ul Normal 0.0-0.1 [facility] Comment on above: Performed By: #### C BC #### [facility] [address] [place] [address] Dr. Ryan Francisco Basophils/100 WBC (Bld) 0.3 % Normal 0.2-2.0 [facility] Comment on above: Performed By: #### C BC #### [facility] [address] [address] [address] Ryan Francisco EO # 0.1 103/ul Normal 0.0-0.7 [facility] Comment on above: Performed By: #### C BC #### [facility] [address] [place] [address] Dr. Ryan Francisco Eosinophils/100 WBC (Bld) 1.7 % Normal 0.9-7.0 [facility] Comment on above: Performed By: #### C BC #### [facility] [address] [place] [address] Dr. Ryan Francisco Erythrocyte distribution width (RBC) [Ratio] 12.7 % Normal 11.0-15.0 [facility] Comment on above: Performed By: #### C BC #### [facility] [address] [place] [address] Dr. Ryan Francisco Hematocrit (Bld) [Volume fraction] 39.7 % Normal 36.0-48.0 [facility] Comment on above: Performed By: #### C BC #### [facility] [address] [place] [address] Dr. Ryan Francisco Hemoglobin (Bld) [Mass/Vol] 13.4 g/dL Normal 12.0-16.0 [facility] Comment on above: Performed By: #### C BC #### [facility] [address] [place] [address] Dr. Ryan Francisco IG # 0.03 10e3/ul Normal 0.00-0.03 [facility] Comment on above: Performed By: #### C BC #### [facility] [address] [place] [address] Dr. Ryan Francisco IG % 0.5 % Normal 0.0-0.5 [facility] Comment on above: Performed By: #### C BC #### [facility] [address] [place] [address] Dr. Ryan Francisco LYMPH # 1.6 103/ul Normal 1.2-3.8 [facility] Comment on above: Performed By: #### C BC #### [facility] [address] [place] [address] Dr. Ryan Francisco Lymphocytes/100 WBC (Bld) 27.1 % Normal 20.5-60.0 [facility] Comment on above: Performed By: #### C BC #### [facility] [address] [place] [address] Dr. Ryan Francisco MANUAL DIFF REQ NO Normal [facility] Comment on above: Performed By: #### C BC #### [facility] [address] [place] [address] Dr. Ryan Francisco MCH (RBC) [Entitic mass] 29.6 pg Normal 26.7-34.0 [facility] Comment on above: Performed By: #### C BC #### [facility] [address] [place] [address] Dr. Ryan Francisco MCHC (RBC) [Mass/Vol] 33.8 g/dL Normal 29.9-35.2 [facility] Comment on above: Performed By: #### C BC #### [facility] [address] [address] [address] Ryan Francisco MCV (RBC) [Entitic vol] 87.6 fL Normal 81.0-99.0 [facility] Comment on above: Performed By: #### C BC #### [facility] [address] [address] [address] Ryan Francisco MONO # 0.4 103/ul Normal 0.3-0.8 [facility] Comment on above: Performed By: #### C BC #### [facility] [address] [address] [address] Ryan Francisco Monocytes/100 WBC (Bld) 6.7 % Normal 1.7-12.0 [facility] Comment on above: Performed By: #### C BC #### [facility] [address] [place] [address] Dr. Ryan Francisco NEUT # 3.7 103/ul Normal 1.4-6.5 [facility] Comment on above: Performed By: #### C BC #### [facility] [address] [place] [address] Dr. Ryan Francisco Neutrophils/100 WBC (Bld) 63.7 % Normal 43.0-75.0 [facility] Comment on above: Performed By: #### C BC #### [facility] [address] [place] [address] Dr. Ryan Francisco Platelet mean volume (Bld) [Entitic vol] 9.9 fL Normal 9.5-13.5 [facility] Comment on above: Performed By: #### C BC #### [facility] [address] [place] [address] Dr. Ryan Francisco PLT 421 103/ul Normal 150-450 [facility] Comment on above: Performed By: #### C BC #### [facility] [address] [place] [address] Dr. Ryan Francisco RBC 4.53 106/ul Normal 4.20-5.40 [facility] Comment on above: Performed By: #### C BC #### [facility] [address] [place] [address] Dr. Ryan Francisco WBC 5.8 103/ul Normal 4.0-11.0 [facility] Comment on above: Performed By: #### C BC #### [facility] [address] [address] [address] Ryan Francisco FREE T4on 04-04-2022 Free T4 [Mass/Vol] 0.99 ng/dL Normal 0.76-1.46 [facility] Comment on above: Performed By: #### F T4 #### [facility] [address] [address] [address] Ryan Francisco TSHon 04-04-2022 TSH 3.086 uIU/mL Normal 0.358-3.740 [facility] Comment on above: Performed By: #### T SH ####[facility] [address] [place], [place] [address]PlDr. Ryan Francisco US PELVIS AND TRANSVAGon US [...] by: LUCHO PADRON Date: 2022-04-04 16:38 Normal [facility] Auth for Release of Medical Recordson 12-20-2021 Auth for Release of Medical Records [id number] 1.00CD:127 Normal [facility] Coding Summary.on 08-22-2021 Coding Summary. CD:[id number] Gh0bWw+PGhlYWQ+PE1FV FAyV71srJJxdG3UV4aLA W7LEXHVPPCHKZ2CMC4mr PF0FNaxC5YmcmKu QuyauBHoRS38OVf3LIM4 aAnmMAuktP3mlXMeB8b1 FxIdAB44yW18JTxsCGAo NmM0WzEfswcuvJOk C5rbQuBgfHUeSdy+PHRh YmxlIHdpZHRoPScxMDAl BsLwkDydQU0rHk7hUHPp LWNvbGxhcHNlOiBj r9cxMCUwUUzcAP0xgNno P1LijXF9KFMef7u5Lg54 dHI+SYLwTON7oXrpLGhs e959TfScx7ivCEZ4 tWGlEGyvWYP1S30ii6Q2 HMNrGUItZMU3oOT5kR1i oRosufnsM3JbzKDjDbV6 RLP7jUSxlE3yaFnw iuuyhF7oVcn+J31GOP7N WRFZQN1SUcy9R6ClEgmi dHI+QX69ANBqIC95yCJu pEYno6claVv8CnFq XASkYHD4eUrmOYecz5Sj QIAyE69voYVnp8U6JXZm yEjhtOXnIxApvIJ5hB6y KCcitahih3vezszz Arzke5zuqi03bZ54Q84u BMdeOEXyWTM3RZLbLQOw wXdmki7gzM0fWd3+IDxj p4esi4dvcXf0DrKb OBUwgiSecEmhNBY6n7Nx Ug04N8FqkFxso7SzKos7 em73aAOem2K4nWI7JQkh HMKgfE5lLNglJnE1 MOYbKqTcrI05cAYrXGij Cl2flSwktYfzJB1nQJVb hophSDZkxY5eCVYlwFAr uBbnWJ1bOMExsfdf y232TnGwILT3LJFyrTLv R5AfkO1fFsBaAVFsPAPr Q7VtwVWoTFbpW781FEqm YiF4ZYYevdRwH3Ve LOFacUveJaQ1q2D0Mg8W z4OxytdiYTA6AFvsHCDo UhJ2EyPdVdQ7P5VxEmf9 AMSawZdoRQ1vI0Lf JCHklivuswbjoXJ6NMUt GOPpsC30sJRkUQqsUf4j z3Y9n280KWBjUODpkG12 Ak1ujJhlRCRjjDBB uY1kpfcwv8lvfuqvCbVs JWVrMMs7HYc7DBEyuEop GpBsREJ1BbP6QLI5eXZc uZ6tkBhlmvskdJ3p Oyc+Q00dhN2pYDB7PZC3 xwrbNWLlraSoUN80RS86 L8GgYaqbnQYktFC+PGRp hwEhnLcxBY4yTlWi h3lvb1OwWIfgA3RsYFXi DCalVje4QXMhHOW3xIA2 oM5rWSJgLWovb4F3fYF6 Y8VikwJvho9pp8cx PUAgPFigJ04ssWZlg7Z4 ZWFljYU8IZXxxFonUdFg qP86Kka+HYKxtDwsp7Vr Uxfpa4zcs1tzpJc1 IjMwJSIgdmFsaWduPSJ0 v7WpQk32B19jLCumXDFa ODNbANMgSVFefMvwmy8h lD9eZr2+PGNvbCB3 uFL3nV0vQIJgTcE4ONkv S373PdIreXDfDptqa7qj q5oiwHt7ZhFcXDQyakOj eVsiPIS5c9VcCw23 C49qFKmyHKBtNKHgVNHx FGSolJnyss2piN6vMo5+ ZF3tv3xblf45oC42vAJ+ FBZcDRK1xTkwEMpb KCWziP6iXCopTgI9QOKd OgDkgE49tNDpKIcxKn1i dJynaYpwXR8qHRWuyaug z844IcKzx2gwDQBi pUPqXQypUJX1I17ik4K0 TGLtLEZvUCL4kTR2tT6v bGlnbjogbGVmdDsgdmVy qMulEWwrXClqG269 IHRvcDsnPlBhdGllbnQg IaLdIXw0N5LrBis6DUBg aFkfRJ6taPIzONarKu0u iWidbQhgYC8uATIw xwkhc711RgXnq5bdEKRr bQMoBBcaEXX9W19um1P3 PXBtKJKnEKL7vDZ9mA9a bGlnbjogbGVmdDsg kzKsjLrtRDssLInnZ468 IHRvcDsnPkJpcnRoIERh vJJ2PV06IG01lFHvt5U2 yOX1U6LeFADxfflr ednkkRH7UHDkWQHnrO38 Ql1xmZofOp4gMTHfSBB0 WOWqlZLjL0JecB1lWxUj FQOhVKSkU8XaaSXj RNbhU353TVljHtB4RTHv gcXdV0EuZYCudJkbSvF2 o9K2Xe3RA3K9LF58NX50 jLWvx9Z3nEM1A6Rt PYZizmlkgzaltHH2KZFz GRZvkR49Cn7oiOtiOx4g ORHeVSS8YQYryJWuU5Ht cN7hMsPeJIQcSNRp J9OonMCiECsrT143WNez PgO4LSJlepBxE8EiDFSv uZijOjQ3g6Q9Vy9DKOz2 FZ46BG75yONjk3R2 hGH1G7XmJKMymljxnkmu sQW7XKCjWYXafM31Ob3i nGxcQg8yVQMbFMJ0URWy tWOjO2AieD1tDiNe KXOeCBTtI0BmuAFaAZsc S860UQnrQeT5UGXoviMz H0LzLGCbfSomYuR4i1U0 Lm4HPZOdDW34HQY7 kKO6BS32NJ23D3SsCpis dGFibGU+PHRhYmxlIHdp ZHRoPScxMDAlJyBzdHls AN3hLb7bERRjZUAe mAbhkCJcOgBef3ziFYAq YPssCB8duJedL1LjbDK1 YBAuc7k4Tt27O06gR0De dXA+YUSotAR4oBK8 qG8pCbXzNiG7UTgjQ419 CoCsqAYuFipfo8ojt3sd vUt8KaG9QCHbnvJppQfl EWY4m9JqOs74M63b IHdpZHRoPSIxNSUiIHZh sEfgxu5tnN7uVj2+PGNv hUZ7nOW9yJ4oGdYzZnJ3 SYolE075AvPzfBSk Niyel9kwb9qojMb5MlCr CXJsuhSwzVbaNXQ4g2Xy Wr14U6RpeTbli5GiNrn1 ry82nEQtl3R1xYT8 M5TgTQGhxocydFWfgEcb OW9sONFofdzuUXLgjH0p KBAuK8k0MlFeScV0BLgp D6ZqdwL6ZZHjoXEj XTzgKML4R02nm5C9JZNv QQGpRDJ5dJJ8nH8ccIxw bjogbGVmdDsgdmVydGlj UEzjVQfeX491JLBm iDidCKUsxA3mKOFvbOQg tIciZM8aSTPqrqmeBvwR EIByBCwWDBZCLO15YJ63 vZTls4V1eIP8N4Ho BDGyyrparvehtDK9MNCx QUMhjI08dCReSAbaFb9r h8A1o707YQLcCSZmuS33 Ul6avMmvDBIuoKAX fJ5suuteq4uktfiwSvWp QGFyLJf7HSj5CBGbbOgq CjZwGYQ4JfH9ZLA3nXPn vW3eiUaopyafrN3q Oyc+BIDeBfwbZZq9ANjm dGQ+IUIcLFM5gFzhJGua WOJmiF7qICIoU2m3CoUg UdF1VVodM0RuTEPg jhqwZr15aY2vClUlCaH1 GMglP6JefiA9EXBbyBXc RFywCTN4W46tg5L7IOFg MOVeBDF3kAM3qT9p bGlnbjogbGVmdDsgdmVy vAsvXVteATiiK288EEOi aOpxOiZcROyiBBNbRB27 ZY07hMOky1B7rEC8 J1BsIHAjfordyqjakHS0 ECAbEMDwcE03gUFpMJyu Jz7ie8F8d895UOPoQKVw mO07Sy1brXvvXJEn oZUGiK9jxvbwv4gxasft XeAmSEBbMPv3SUb6HEOd pLaxYcOeNPY4RaA5OTJ3 yUNueA4vsScwoboa sU4zOaj+CvAsTSsuQT28 II65oFEhj6V7nSY0O0Vi BTBlikkyodwqbOV5KXVg LIBvrX23yULfKRtf Fq6rh1K4o538IJKuTAMp yJ16Ef8hmEdtFCQfzWLJ xR5twkcbj7nrswylEoLz AXGsPVd1QFr7IXBi xFplMuNfWPA5AnA3HBJ8 uZEdzN3fgIcvhfhmjY3n Oyc+I2K0wXE9wLVwbMjb dGQ+CZ40qu86A8Ar HmahRla6EOZqOFM1xWR4 xC7xHQKbETcot4B8cHP2 T6YxojKpre2fg3dcERWm ZCcmI40qiVDhr3P8 COJuiCO8YQTzvQytKsSy eA65Gkh+KFVikHuhz6Fs Mbasd4cuw3lqdTl5VhRk JSIgdmFsaWduPSJ0 p1ZgGf44Y48aHHjhXZOo ZOOkNLKwXXKgqFwmet7z kJ3iIp8+UUKjeSS6eVH5 aQ9wPwHdPxM8UUyb D718UhHjcEJzUazdb2ip o0nurIh5NwLvZVJvytBj mHvcEIZ8q4FwHf86U7Ch cAucc4CpPlg6zg37 pNDuq1I7qAP7H7KlVFUy fsgniGLluNgiDK3lZXOn qwvoTLQsrW2dMNNxP6i8 WkMtTdB9YEyqL1Oz rsO1ERIykRAnRZKmxWOY bF1kfdtkz9jjbudjKtWw DNFnYDp7QDo2WEHihGzs WmVpPXF3QcB5EZX0 fROktR6uhUooineexT4x Oyc+SIn6i7pxbKOhCM2e yKM8LK86TM23nZIme7F5 mCN7B4HrSSRumsyl wewqhET0QCFaWGSaxY86 Px3ksXyqNr1dFWSuBGP0 WERgmNOqU7XwiI6sSrKz REAjXTGyE7GrhWRj ZTblB462CQcbHiM4FKIb vsLvG9GgUOImdVnaPhR7 p3J0Wx8VPZ62ML73HU93 lIOsu7M7uCB9C4Ed WIDugjbijchmeSC7RZWx LXOtlI29Rq3fqMobEy6m SGAbFMY2FIJfdMHoH6Fj zZ9bMcNuYNZbIDRd Z2SegYLhIMbnT412QFtn ZaL2SWOskdIxE7FuCZRb jPfaIpE3m6U1Xo4PJr83 UO18TZ43vEKjg9J0 uWY6F2HzQIMvtntibbvf dDC1ZBEeVYAkcT03Zg2z xXgeWb4vSFScGDR6GVVf cASvH8CliS4xOgFl VIUxYGEuN8NfbTXyNXus D767FFzoDrV1AZSblnDm V6TlOWYxwBjcUzG3m5Y7 Fz3HQYkcvfi9D6Cj PjwvdHI+RY70ZRZxIS94 kKBtcMApg0bijXf5NnUy PFGuADC6vLogAHsdh6Hk DKGpB01rfMRyl9V9 IGNv (more content not included)... Normal [facility] Coding Summary. CD:[id number]:[id number] Gh0bWw+PGhlYWQ+PE1FV RLsI13tjNEkoH4HU5tKK E3VCWWXMSHBZB6ULG3zv DK9LQtvR9TpxfMj AdinyDRfZE90CGf1QCT1 xKtmUWuynW3swEAqT4s3 DfPlWG66lO18ABlrINWz UsG9RfFfffgozZZl X5xlPmElnRByZwf+PHRh YmxlIHdpZHRoPScxMDAl EwBuiYztOU4iYt7gXVKd LWNvbGxhcHNlOiBj y3ssTPDsAPljSG6jjPqy N5UtjYZ7SUArh6x8Ag29 dHI+LDChAWA5eFuoEOgz f143HmYhd3kwWCV9 wGIqTJakDQE7I96yn7M9 HGEzTJBrJUO3bXG4iN4e sLxidplaS7ZejNQsNeE1 EXH1qHCtfX4qzNha eoxnfO2hNwn+U25UWH2K TORRDR4LPfw5C9CcEbbu dHI+VX88XNEsOW55uWQp dSUni6rtmTd2OyBg OODwLRQ0nNtvMAsen3Yn QWDrG06lmKZfz0B0PCGk bIechZQrWzCqgJP5dX2f UOrnsaril1vcbeay Psunp7wyrl44wN13J25a YGqbEOKeFNK3GNQhWBFo lOroja4wfC3xVr7+IDxj j3rop5yhiRc3LrGm WQXlnfMovViuTWX4a1Ql Sd66A0PxtBmwz5VbIbo2 wf74uTQve5D5vVI0NNsy ZHZzbL9ePRtqDrH6 TINlNnRebT60bDXpODyo He7zcMpttEtjUN6vEVIr ijftOJItoL9yHJBwrCSw jBsxVW4rSNVayygr d388SrKmGZW2AXRayNWd Z6OgnT9dAmSdDYEwRMUx B2DhkOGzGIavN026EQml QqL8QHFoxsCwZ9Ye GAIpnBykYgM4k9P4Dw4D s8XahzilYHQ2CBayYHGs MmW3HnWyFbZ6W8IsUwo7 MGSxkEtdRI3dM5Bt CGGosdzasjsigBI3PQAn LOUjaF78iQKmBAsuTl7s r3G6h855ZKEaXJJhvO59 Bv6liEjtGAGpgKOJ sW5tgbmft2twxsvdFqPb RFZoNAu1MKw4GXPvqYti DpRhJJB7QxL8HBP4aKKl fE0uvKhvmyvfgJ8i Oyc+H21wdY8yCSZ5ZQV7 erfwDJUcymSzPF61EP97 E7JhPbteqXAyaPT+PGRp ygQsuOkfKW1rTmDi b5byb5KyDBtxV0SgHLEi PElrFjb1QGXnLIO2nSN7 mI3vXEYfSUqjb2B4mMZ2 L8PrpgJjqn9bu6ty DKMzZDksC14htWDrm2T6 YOXsvZZ4TTOjqHgjSzQq yD49Ljv+SRWxnMtuq8Qi Velbx1guw9knbJu6 IjMwJSIgdmFsaWduPSJ0 k5MgGl01S72kPHvhIGQv YOMuUOTbZNUxbFvwyc9z aP7yAc3+PGNvbCB3 sWE3qM5nRADrTbB2WXwc F998PoWutADfQdmbu3eu f2aebHu6SkXwVSIskcAy mHhbFEQ1j2KgMp99 Q67mZWucJXOgXDWmRCFx YJCthWmwvr3igV0gQu7+ DS9lt6hvzv27fU19fAZ+ RLMuDFK4bAxbIHfn MZRmsV1jAQstOqY8IMXa AaBliY66gPMsTMgbUq3d rPbmcVvgWJ6yYHHudegd v006MgVgm4urHEKz zHNbPIwcNWT3A35nx8N3 KMOfUXWbUOQ6iWI1oN3c bGlnbjogbGVmdDsgdmVy wJumWIbaXGtfY451 IHRvcDsnPlBhdGllbnQg IkZsILh5Y2YjDpx8KASu rMmxKG6nbGGeXQsjRw7l vEkxvPkfYV8xETQw grmhj033VwIdi1mtWCKn qFUwPCtkQWB1L66ex3E5 YYYdSJUlPFY2jEJ2uU6u bGlnbjogbGVmdDsg cyShnBrvSWxsWRkbQ524 IHRvcDsnPkJpcnRoIERh yOK2OS35UG72nFYfp4A4 hUQ1W2LlIFLoctzs vzidlCW1OXLjLGJaqM39 Nu9ibQnyWg0kYXVrRGH7 NNGkrVWeB7YuvA5hSbNq CZCvWKGhV8JnlAYz HAniH721AJsdGkS6SCPy mbOiU9JkVMSsqDtiNbB0 k4C8Qf1OA1V0QG29FO69 tIVol9M8vEF6M2Xl PGRajszqbrtauET0HBGo AVJvhX03Cu5ipAbxHm0a ECIdSRI7NAAqmIYsO3Ts wW3aFcCyFYVgPAXb B0YlcNDrPQamG686OJhw JaJ3HKEekkWyK4QfVLNk oWooOaY8k1P1Ks5EKDr7 HN18KZ37sWJjz7P7 yYJ2J7NzXFEjtkoywacw dXT5FEHgBQHuvX46Oi5t jVrnJv9rWULxLVC3XRXe fKShM0BpaF1hVhZm SWLgPVUwZ1PgbMLxJDnl V665KBxjZcX8OMIpfzMm G8VlLOHshKqkGqC7t3X9 Wp6FMYDvGH74XAL4 nOB2VC55LP43H5MvTcns dGFibGU+PHRhYmxlIHdp ZHRoPScxMDAlJyBzdHls RR7dTy8gTULhBUGc lQgitJHuIfSvk9goTSKi UHwuWR7wbDcjS9WwhLG0 NISyw0y6Mc57A60fE0Pf dXA+XPXdvFJ9rMR2 kK4zAbMbNlI1EFpnJ992 AwObhXBeUuagk4imn6lg vRd6GaJ9WSOcctLovDcg WRI6w7BzMo49Y64v IHdpZHRoPSIxNSUiIHZh aHzazc4emI0vAo0+PGNv dQI8hYJ8dY7bYuNrLxH9 CTpiU535RyEgrNBo Eufmt8gsg8oyxRl5KuWs QPCgtdFyqRwfWJJ1w9Xl Ww91V5YsvGnva6WmJfl1 rw74eLMut4W3rOE0 P6BtAHLwneorrUNgaHax UM5aLEGfbeeqBECulJ5n VGYuH4k4BoNjHqQ8NUeh Q3YvtiI6ZXZslECt IMkvPNC7G45pb5B5GAGs PRWpMXO9sRV6pW3yoOst bjogbGVmdDsgdmVydGlj SDubBYteL627VMLi wUmnHMSwyH0eUNEqzAJx xTznHA9pSYGmqijqVssP EQAiUUuTKFQDLY27FT82 pUSog4F7xUD9E0Zx JHIcpwnsqrcnvCY4SBVs HYBrqF86oRXxMJheDd9i z0X1m727OUYyEXQqnK87 Je3xzAbhRWPnwTVE iV1ybqqjc5mvvhkiUjGp ZYAfCMd0MTm2GEAxoOoh YgXkNJC2YmS3QVR2jZBh dI0srTasqlwphY0z Oyc+VHLbTtzkABp7VQvl dGQ+IDMhIYB6hYqbQApr LHRipX3sOMJaK7q1HgJr SuN7VVdfN4SaCUNy yukiFn13tQ1dUnClNhL7 NOdeB2OqvxP4IOEzdUVm KDwcZVO4X56gl0C5QCHq PZXqDOT5zOQ4nI8b bGlnbjogbGVmdDsgdmVy hHtmEHghLWqsU069AOWu vVtvWqDfYIqxSTFpDD32 VE09eLTdc0H5cSI8 D2FvHZBjmqvrvnlvyQH2 KVViXDEfaY79cSGoVDcr Cy0ed4Q8e623BBBmZPZu gG28Zb9plJwrMAKv yZWYsE0tvbraf4pgjvnr YiNfYCBfVRp5KVv1SMXg nAmuFjDmKBE7IxN1RNM7 nXTirL8vcFhksmjj fF3mUwi+NoPzPVldKR05 OV02cQMmc0I2zPD6J5Ox DPSopawosobctDQ9UHFf IIPklC19dZXmJLpf Er6ua6W1m805JQLkJYUt tF97Lc4ynSnbWTFzxWCL cF9hpizpn5rnzlfzCuZl VRDlWJa2JEs2GYYg hLpyPpMwAEA6NaW0IUD2 qPOdgG9hlAvnmrvelQ6b Oyc+JYCcMBUlx2Jzw0Yd SY00BJ30J5JuUhtb dGFibGU+PHRhYmxlIHdp ZHRoPScxMDAlJyBzdHls MA8yOi4dHLKwFZUnkVic gMYhBgTpp7lmYJXi DDkoQX3haJkkG1HyuES0 TUXjr3d6Za69A77fE9Ki dXA+HTJtaTD6qYD8oX6j OrJiLwP6MIfkB749 DeFulHTpMwegr7kye9qd vDt1FtIiFGVqlzZmgPyy BEM3e3IoTj47O78uQCbl ZHRoPSIyMCUiIHZh aIzigc3swF4mPw2+PGNv yYA7fAV9tS1qQdGdFaJ8 YLhgT554HbYpzPKbYzlj F30kB9CzfCT+PHRy Nkw4GDAwjKzgJP9iwLEd WRhhWz3mSQC1GuTbWcVn PFlnY1CcQTLenjdypcqf pAT9MUJrBTRwoN44 Sh0weMgmCu2sVFShJRY7 DNGvyEJnT0BypX5nMzWa GRMzVLGgV5NwaSLfKIfw A614NMrmYtL3PEPz ecUoN8NaPXQvpKotJzE6 c3S3Eo4TjAfacWNpVR7h XuPuELx2W2PwYfz0FCDx rHsxPC0clQKqLVtr Hm0acHgzqVltBI1yQMAx swfaj366VnNwc0dbKSSc fADcFEpcIAX4A58tb2N3 HNFvDYWuRLI6bPS9 lV7ufJgkwkpiqFPpwWun zwVkfEgaIQraJRduB971 ZULvuSvrDoUVOwj4K4Cx Jqe7YYMezDanWG1g xZVoIKydGv9hpXkhmAqn DU9vQMFgizihs285VnBh i4atBLKfoEQtXFtqYBZ7 A23hf0Q3ANQdTETb COZ6vMJ6qB3cwCrswfhx bGVmdDsgdmVydGljYWwt LKviC482GKWunCwiWp9K Nch8S8KtUup2AKXe lMboDN1pqASrFGvsAd9q eQugdOjoPD1kGFMzoplm k889OxXqh4haLXDkcHVe AMvqCPC5G04hb8G3 RARrGCCbDVJ1qHP1lL3x bGlnbjogbGVmdDsgdmVy lBbhHKtoKAdaL290HOLc cDsnPlBheWVyOjwv dGQ+OP44ml25T6YmHbca Vwj7RPSyPVI4vYN2dA6h CUEzCLlje4Y0fPN1D6Zv ciWwrc7gi5bdZWQp [employer] (more content not included)... Normal [facility] PAP [id number] 08-15-2021 Cytology report Cyto stain Doc (Cvx/Vag) Note Invalid Interpretation Code [facility] Comment on above: Result Comment: TEST S RESULT FLAG UNITS REF RANGE LAB Clinician Provided Cytology Information Source.............[employer] No. of containers..01 ThinPrep Vial DIAGNOSIS: 01 NEGATIVE FOR INTRAEPITHELIAL LESION OR MALIGNANCY. Specimen adequacy: 01 Satisfactory for evaluation. No endocervical component is identified. Performed by: 01 Sujey Engle [employer] Finisher Helper (ASCP) . 01 Note: Note 01 [...] <-Panic Low,>-Panic High,A-Abnormal,AA-Critical Abnormal Performed at: [address] [id number] Mar Rivera MD, Performed By: #### 1 [id number] #### [facility] [address] [place] [address] HPV 16+18+31+33+35+39+45 +51+52+56+58+59+66+6 8 DNA Probe+sig amp Ql (Cvx) Negative Invalid Interpretation Code Negative [facility] Comment on above: Result Comment: This nucleic acid amplification test detects fourteen high-risk HPV types (16,18,31,33,35,39,45,51,52,56,58,59,66,68) without differentiation. Performed at: [address] [id number] MD Nicole Manuel Performed at: = [address] [id number] MD Nicole Manuel Performed By: #### 1 [id number] #### [facility] [address] [place] [address] Insulin Lvlon 08-11-2021 Insulin Qn 24.3 u[IU]/mL Invalid Interpretation Code 2.6-24.9 [facility] Comment on above: Result Comment: Perf ormed at: [address] [id number] PhD Archie Jha Performed By: #### 1 [id number] #### [facility] [address] [place] [address] Consent for Treatmenton 07-29 Consent for Treatment [id number] #1.00CD:127 Normal [facility] Glu Fastingon 08-10-2021 Glucose [Mass/Vol] 95 mg/dL Normal 55-99 [facility] Comment on above: Performed By: #### 1 [id number] #### [facility] [address] [place] [address] Physician Orderon 08-10-2021 Physician Order [id number] 2#1.00CD:127 Normal [facility] PAP [id number] 08-09-2021 Collection Technique BRUSH-SPATULA Normal [facility] Comment on above: Performed By: #### 1 [id number] #### [facility] [address] [place] [address] Gynecological Body Site ENDOCERVIX Normal [facility] Comment on above: Performed By: #### 1 [id number] #### [facility] [address] [place] [address] Physician Orderon 08-09-2021 Physician Order [id number] #1.00CD:127 Normal [facility] Gynecology Office/Clinic Not pratik 02-17-2019 Gynecology [...] Family History Family history is negative Normal [facility] Comment on above: Result Comment: Elec tronically Signed By: Shamika ISAACS, Kaley Sepulveda\Date and Time Signed: 02/17/19 12:09 EDT Gynecology [...] Family History Family history is negative Normal [facility] Comment on above: Result Comment: Elec tronically Signed By: Shamika ISAACS, Kaley Wilson\.br\Date and Time Signed: 02/17/19 12:09 EDT Vital Signs Date Time Vital Sign Value Performing Clinician Facility 06-22-2024 14:31-0500 Body mass index (BMI) [Ratio] 34.2 kg/m2 [facility] Work Phone: [facility] 06-22-2024 14:31-0500 Body weight 84.82 kg [facility] Work Phone: [facility] 06-22-2024 14:31-0500 Diastolic blood pressure 78 mm[Hg] [facility] Work Phone: [facility] 06-22-2024 14:31-0500 Systolic blood pressure 124 mm[Hg] [facility] Work Phone: [facility] 06-15-2024 10:27-0500 Body weight 84.82 kg Hugo Rodriguez MD Work Phone: [facility] 06-15-2024 10:27-0500 Diastolic blood pressure 88 mm[Hg] Hugo Rodriguez MD Work Phone: [facility] 06-15-2024 10:27-0500 Heart rate 99 /min Hugo Rodriguez MD Work Phone: [facility] 06-15-2024 10:27-0500 Respiratory rate 18 /min Hugo Rodriguez MD Work Phone: [facility] 06-15-2024 10:27-0500 Systolic blood pressure 137 mm[Hg] Hugo Rodriguez MD Work Phone: [facility] 05-25-2024 11:46-0400 Body mass index (BMI) [Ratio] 33.84 kg/m2 Luis Yobani DO Work Phone: [facility] 05-25-2024 11:46-0400 Body weight 83.92 kg Luis Yobani DO Work Phone: [facility] 05-25-2024 11:46-0400 Diastolic blood pressure 74 mm[Hg] Luis Yobani DO Work Phone: [facility] 05-25-2024 11:46-0400 Systolic blood pressure 118 mm[Hg] Luis Yobani DO Work Phone: [facility] 01-02-2024 09:15-0400 Body height 157.48 cm [facility] 01-02-2024 09:15-0400 Body mass index (BMI) [Ratio] 33.9 kg/m2 [facility] 01-02-2024 09:15-0400 Body temperature 100.2 [degF] [facility] 01-02-2024 09:15-0400 Body weight 84.08 kg [facility] 01-02-2024 09:15-0400 Heart rate 115 /min [facility] 01-02-2024 09:15-0400 Respiratory rate 18 /min [facility] 01-02-2024 09:15-0400 SaO2% (BldA) [Mass fraction] 99 % [facility] Encounters Encounter Date Encounter Type Care Provider Facility Start: 06-22-2024 End: 06-22-2024 Bamboo flowsheet Luis Yobani DO Work Phone: [facility] Start: 06-22-2024 End: 06-22-2024 Bamboo flowsheet Luis Yobani DO Work Phone: [facility] Start: 06-22-2024 End: 06-22-2024 flow sheet Luis Yobani DO Work Phone: [facility] Comment on above: Second trimester pre gnancy; 22 weeks gestation of ; Personal history of cardiac murmur Start: 06-22-2024 End: 06-22-2024 ambulatory LUIS YOBANI Not Available Start: 06-15-2024 End: 06-15-2024 Office consultation new/estab patient 60 min Hugo Rodriguez MD Work Phone: [facility] Comment on above: 21 weeks gestation o f (Primary Dx); Chronic hypertension affecting ; In vitro fertilization Start: 06-15-2024 End: 06-15-2024 ambulatory [facility] Start: 05-28-2024 End: 05-30-2024 Clinisync Result Encounter Luis Yobani DO Work Phone: [facility] Unsolicited Start: 05-28-2024 End: 05-30-2024 Clinisync Result Encounter Luis Yobani DO Work Phone: [facility]solic[facility] Start: 05-27-2024 End: 05-27-2024 Chart abstracting Hugo Rodriguez MD Work Phone: [facility] Start: 05-25-2024 End: 05-25-2024 Bamboo flowsheet Luis Yobani DO Work Phone: [facility] Start: 05-25-2024 End: 06-01-2024 Bamboo flowsheet Luis Yobani DO Work Phone: [facility] Start: 05-25-2024 End: 06-01-2024 Clinisync Result Encounter Luis Yobani DO Work Phone: [facility] Unsolicited Start: 05-25-2024 End: 05-25-2024 Patient encounter procedure [...] Available Start: 01-02-2024 End: 01-02-2024 ambulatory JOHNNY JIM Not Available Start: 01-02-2024 End: 01-02-2024 ambulatory [facility] Work Phone: Start: 01-02-2024 End: 01-02-2024 Patient encounter procedure [facility] Work Phone: Start: 11-27-2023 End: 11-27-2023 ambulatory LUIS YOBANI Not Available Start: 07-26-2022 End: 07-27-[address] LUIS HILTON . Facility:[facility] Start: 07-12-2022 End: 07-12-[address] LUIS HILTON . Facility:[facility] Start: 06-28-2022 End: 06-29-[address] LUIS HILTON . Facility:[facility] Start: 05-31-2022 End: 06-27-[address] LUIS HILTON . Facility: Start: 05-17-2022 End: 05-18-[address] LUIS HILTON . Facility:[facility] Start: 04-28-2022 End: 04-29-[address] LUIS HILTON . Facility: Start: 04-04-2022 End: 04-05-[address] LUIS HILTON . Facility: Procedures Date Procedure Procedure Detail Performing Clinician Start: 06-22-2024 Urnls dip stick/tabl et rgnt non-auto w/o micrscp [facility] DO Work Phone: Start: 05-28-2024 AFP, SERUM, OPEN SPI NA BIFIDA [facility] DO Work Phone: Start: 05-25-2024 IGP,APTIMA HPV,AGE GDLN [facility] DO Work Phone: Start: 05-25-2024 Microscopic observat ion [Identifier] in Cervix by Cyto stain Hugo Rodriguez MD Work Phone: Start: 04-08-2024 Blood count complete automated Not In System Ref Prov Start: 04-08-2024 Syphilis test non-treponemal antibody qual Not In System Ref Prov Start: 04-08-2024 TYPE AND SCREEN Not In System Ref Prov Plan of Treatment Date Care Activity Detail Author Start: 05-25-2027 Screening for malignant neoplasm of cervix Pap Smear [facility] Start: 06-15-2025 Tobacco Screening Tobacco Screening [facility] Start: 07-20-2024 End: 07-20-2024 Patient encounter procedure 07/20/2024 10:20 AM EST Routine [facility] [address] [place] [address] Luis Hilton, DO [address] [place] [address] [facility] Start: 06-22-2024 End: 06-22-2025 ECG 12 lead ECG 12 lead ECG Routine Personal history of cardiac murmur Expected: 06/22/2024 (Approximate), Expires: 06/22/2025 [facility] Work Phone: Comment on above: Expected: 06/22/2024 (Approximate), Expires: 06/22/2025 Start: 06-22-2024 End: 06-22-2024 Patient encounter procedure [facility] Comment on above: Arrived Start: 06-15-2024 End: 06-15-2024 Patient encounter procedure [facility] Start: 05-25-2024 End: 11-23-2024 Alpha fetoprotein, maternal Alpha fetoprotein, maternal Lab Routine Second trimester Expected: 05/25/2024 (Approximate), Expires: 11/23/2024 [facility] Comment on above: Expected: 05/25/2024 (Approximate), Expires: 11/23/2024 Start: 05-25-2024 End: 05-25-2024 Patient encounter procedure 05/25/2024 11:10 AM EDT Routine [facility] [address] [facility] [place] [id number] Luis Hilton DO [address] [place] [address] Arrived [facility] Comment on above: Arrived Start: 03-29-2024 COVID-19 Vaccine ( season) COVID-19 Vaccine ( season) [facility] Start: 03-29-2024 Influenza vaccination [facility] Start: 2020 Screening for malignant neoplasm of cervix Pap Smear [facility] Start: 2018 DTaP,Tdap and Td Vaccines (1 - Tdap) DTaP,Tdap and Td Vaccines (1 - Tdap) [facility] Start: 2017 Adult BMI Screening Adult BMI Screen ing [facility] Start: 2011 Depression Screening Depression Scre ening [facility] Start: 2011 Tobacco Screening Tobacco Screening [facility] Start: 1999 Screening for Chlamydia trachomatis Chlamydia Screening [facility] CHLAMYDIA TRACHOMATI S (GENITO/STI) CHLAMYDIA TRACHOMATIS (GENITO/STI) Lab Routine STD exposure Ordered: 05/25/2024 [facility] Comment on above: Ordered: 05/25/2024 Cytology Cervical or vaginal smear or scraping study Pap Smear Pathology and Cytology Routine Well woman exam with routine gynecological exam Ordered: 05/25/2024 [facility] [employer] Work Phone: Comment on above: Ordered: 05/25/2024 Neisseria gonorrhoea e DNA [Presence] in Unspecified specimen by BUCK with probe detection Neisseria gonorrhea DNA probe, direct Lab Routine STD exposure Ordered: 05/25/2024 [facility] Comment on above: Ordered: 05/25/2024 SURESWAB(R) ADVANCED VAGINITIS PLUS, TMA SURESWAB(R) ADVANCED VAGINITIS PLUS, TMA Pathology and Cytology Routine Vaginal discharge Ordered: 05/25/2024 [facility] Comment on above: Ordered: 05/25/2024 Payers Date Payer Category Payer Commercial Managed C are - [facility] [employer] [id number] 2023 [facility] er [id number] 2023 Unknown [id number] 2021 Private Health Insurance [id number] 2021 Unknown [id number] 1999 Unknown [id number] 2.16.840.1.708330.3.579.2. 593 1999 Unknown [id number] 2.16.840.1.563376.3.579.2. 593 1999 Unknown [id number] 2.16.840.1.385933.3.579.2. 593 1999 Unknown [id number] 2.16.840.1.079089.3.579.2. 593 1999 Unknown [id number] 2.16.840.1.582946.3.579.2. 593 1999 Unknown [id number] 2.16.840.1.280260.3.579.2. 593 1999 Unknown [id number] 2.16.840.1.289600.3.579.2. 593 1999 Unknown [id number] 2.16.840.1.915379.3.579.2. 1286 1999 Unknown [id number] 2.16.840.1.504281.3.579.2. 1286 1999 Unknown [id number] 2.16.840.1.082291.3.579.2. 1259 1999 Unknown [id number] 2.16.840.1.554007.3.579.2. 1259 1999 Unknown [id number] 2.16.840.1.595202.3.579.2. 1259 1999 Unknown [id number] 2.16.840.1.193857.3.579.2. 1259 1999 Unknown [id number] 2.16.840.1.648782.3.579.2. 1259 1999 Unknown [id number] 2.16.840.1.058328.3.579.2. 1259 1959 Private Health Insurance [id number] 1959 Unknown [id number] Social History Date Type Detail [facility] Work Phone: Start: 2000 Sex Assigned At Female F [facility] Start: 01-02-2024 End: 05-27-2024 Tobacco smoking status [facility] Never smoked tobacco [facility] Start: 01-02-2024 End: 05-27-2024 Tobacco use and exposure Smokeless tobacco non-user [facility] Start: 04-27-2024 End: 05-25-2024 Alcoholic beverage intake Ex-drinker (finding) [facility] Start: 01-02-2024 End: 06-15-2024 History of Social function [facility] Start: 01-02-2024 End: 06-15-2024 Tobacco use panel [facility] Start: 01-29-2024 [facility] Start: 11-26-2023 Gender identity Identifies as female gender (finding) [facility] Start: 05-27-2024 End: 06-15-2024 Alcoholic beverage intake Lifetime non-drinker (finding) [facility] Start: 1999 Sex assigned at Not on file P [facility] Start: 05-26-2024 [facility] Goals Date Patient Goal Desired Activity /State Personal health goal History of Present illness Narrative 06-22-2024 Esperanza Peter LPN - 06/22/2024 1:50 PM EST Note Date & Type Note Facility 06-22-2024 History of Presen t illness Narrative Reason for Appointment: Patient ID: Amy Singleton is a 23 y.o. female who presents for Routine Visit Patient presents today for Return OB appointment. MEDICATIONS Current Outpatient Medications Medication Instructions acyclovir (ZOVIRAX) 800 mg, Oral, 2 times daily BD [employer] misc 1 each, Does not apply, As needed estradiol (ESTRACE) 2 mg ibuprofen 600 MG tablet 1 tablet, Oral, Every 6 hours labetalol (NORMODYNE) 200 mg, Oral, 2 times daily metFORMIN (GLUCOPHAGE) 2,000 mg, Oral, Daily methylPREDNISolone (Medrol Dospak) 4 MG tablets Day 1: 6 tablets Day 2: 5 tablets Day 3: 4 tablets Day 4: 3 tablets Day 5: 2 tablets Day 6: 1 tablet Multiple Vitamin (multivitamin) tablet 1 tablet, Oral, Daily predniSONE (DELTASONE) 5 mg, Oral, Daily ALLERGIES Allergies Allergen Reactions Oktibbeha Flavor [Oktibbeha Oil] Latex Hives, Itching, Rash and Swelling [...] systems reviewed and are negative. OBJECTIVE Objective: OBGyn Exam Vitals: Estimated body mass index is 34.2 kg/m as calculated from the following: Height as of 24: 5' 2 . Weight as of this encounter: 187 lb. BP: 124/78 No LMP recorded. Patient is . ASSESSMENT & PLAN ICD-10-CM 1. Second trimester Z34.92 POCT urinalysis dipstick manually resulted 2. 22 weeks gestation of Z3A.22 3. Personal history of cardiac murmur Z86.79 ECG 12 lead Patient presents today for a routine obstetrics appointment. Patient is currently 22w4d with a Estimated Date of Delivery: 10/22/24. Reviewed MFM appointment with patient and informed patient that with history of heart murmur EKG will be ordered. Patient to return to clinic in 4 weeks for routine OB appointment. Documented by Esperanza Peter LPN on behalf of: Luis Hilton DO documented in this encounter [facility] History of Present illness Narrative 06-15-2024 Hugo Rodriguez MD - 06/15/2024 11:00 AM Shahzad Betancourt RN - 06/15/2024 11:00 AM EST Note Date & Type Note Facility 06-15-2024 History of Present illness Narrative [facility] Consult Note Reason For Consult: IVF HPI: Amy Singleton is a 23 y.o. at 21w4d with Estimated Date of Delivery: 10/22/24 based who presented for consultation from Luis Trujillo DO regarding Chief Complaint Patient presents with Hypertension IVF I have reviewed the pertinent available patient records including but not limited to notes, labs and images She presents today with her . She reports that she is doing well. She reports normal movements and she denies leakage of fluid, contractions or vaginal bleeding. She denies fever, chills, nausea, vomiting, shortness of breath, chest pain, headache, blurry vision, right upper quadrant pain or edema. Complications: IVF - PGT euploid Chronic hypertension - was on labetalol not currently, was diagnosed 2 years ago. Not on asprin History of heart murmur - she has a workup for it through her PCP per patient when she was younger. Asymptomatic and is an avid athlete. Denies family history of any other Learning difficulties, congenital anomalies, DVT/VTE, early-onset cancer, early-onset cardiac disease or other inherited conditions Her uncle unfortunately as a baby due to a hole in the heart Her father had a heart attack in his 50s high blood pressure and type 2 diabetes\ Cell free DNA: low risk male Carrier screen: negative (SMA, CF, alpha thal/sickle cell/beta thal/ hemoglobinopathies) Denies smoking, alcohol or other substance use in Denies exposure to cat litter, farming animals, toxic exposure to chemical at work/environment Recent hospitalization: no Review of systems: Review of systems was noncontributory OB Hx: OB History Para Term AB Living 1 SAB IAB Ectopic Multiple Live Births # Outcome Date GA Lbr Adama/2nd Weight Sex Type Anes PTL Lv 1 Current PREECLAMPSIA SCREEN ([place] Preventive Services Task Force) Patient is at high risk if 1 or more factors present. Incidence of preeclampsia is >= 8%: Prior preeclampsia NO Multiple gestation NO Chronic hypertension YES Type 1 or 2 diabetes NO Renal disease NO Autoimmune disease NO (Lupus, APLS) Patient is at moderate risk is several risk factors are present: Nulliparity NO Obesity (BMI >= 30) YES Family history of preeclampsia NO (Mother, sister) NO Sociodemographic characteristics NO Age >= 35 NO Personal history factor NO (Previous SGA, adverse outcome, > 10 years from last ) PMH: Past Medical History: Diagnosis Date Female infertility Hormone disorder Hypertension Ovarian cyst PCOS (polycystic ovarian syndrome) resulting from assisted conception PSHIST: Past Surgical History: Procedure Laterality Date OVUM / OOCYTE RETRIEVAL 09/14/2023 OVUM / OOCYTE RETRIEVAL 03/14/2023 TONSILLECTOMY ADENOIDECTOMY Allergies: Allergies Allergen Reactions Latex, Natural Rubber Oktibbeha Meds: Prior to Admission medications Medication Sig Start Date End Date Taking? Authorizing Provider acyclovir (ZOVIRAX) 800 mg tablet Take 1 tablet (800 mg total) by mouth in the morning and 1 tablet (800 mg total) before bedtime. Not In System Ref Prov cholecalciferol, vitamin D3, 2,000 units tablet Take 1 tablet (2,000 Units total) by mouth in the morning. Not In System Ref Prov labetaloL (NORMODYNE) 200 mg tablet Take 1 tablet (200 mg total) by mouth in the morning. Not In System Ref Prov metFORMIN (GLUCOPHAGE) 500 mg tablet Take 1 tablet (500 mg total) by mouth in the morning and 1 tablet (500 mg total) before bedtime. Not In System Ref Prov ondansetron (ZOFRAN) 4 mg tablet Take 1 tablet (4 mg total) by mouth every 8 (eight) hours as needed for nausea or vomiting. Not In System Ref Prov predniSONE (DELTASONE) 5 mg tablet Take 1 tablet (5 mg total) by mouth in the morning. Not In System Ref Prov no122/iron/folic acid ( MULTI ORAL) Take 1 tablet by mouth in the morning. Not In System Ref Prov SH: Social History Socioeconomic History Marital status: Spouse name: Not on file Number of children: Not on file Years of education: Not on file Highest education level: Not on file Occupational History Not on file Tobacco Use Smoking status: Never Smokeless tobacco: Never Substance and Sexual Activity Alcohol use: Never Drug use: Never Sexual activity: Yes Partners: Male Other Topics Concern Not on file Social History Narrative Not on file Social Drivers of Health Financial Resource Strain: Not on file Food Insecurity: Not on file Transportation Needs: Not on file Physical Activity: Not on file Stress: Not on file Social Connections: Not on file Interpersonal Safety: Not on file Housing Instability: Not on file Physical Exam: Vital Signs Vitals: 06/15/24 1027 BP: 137/88 BP Site: Right Arm BP Postition: Sitting BP CUFF SIZE: Other Pulse: 99 Resp: 18 Weight: 84.8 kg (187 lb) Physical Exam: Gen: Not in acute distress, alert and oriented. Eyes: Pupils equal and reactive Chest: Nonlabored breathing, clear air entry bilaterally Cardiac: Pulse was regular on vital signs assessment. Normal heart sounds on auscultation. No cardiac murmur appreciated Abdomen: Gravid Skin/extremities: Appears intact. No visible lesions MS:no visible edema Neuro: No focal deficits Notes/Imaging/Labs reviewed Abstract on 05/27/2024 Component Date Value Ref Range Status Syphilis 04/08/2024 non reactive Final Rubella immune IgG 04/08/2024 2.32 Final Abo/Rh(D) 04/08/2024 B Positive Final Hemoglobin 04/08/2024 13.7 Final Hematocrit 04/08/2024 39.6 Final Rbc Mcv (Fl) By Automated Count 04/08/2024 87.0 Final Ultrasound findings Pertinent Ultrasound findings are see report Assessment/Plan 23 y.o. @ at 21w5d with Estimated Date of Delivery: 10/22/24 here for consultation regardin. 21 weeks gestation of 2. Chronic hypertension affecting Chronic hypertension (CHTN) is defined as either a history of hypertension prior to or a blood pressure of >140/90 prior to 20 weeks of gestation. Hypertension occurs in 1-5% of women. Maternal complications include worsening HTN, superimposed preeclampsia, eclampsia, HELLP syndrome. complications include growth restriction, oligohydramnios, placental abruption, , and . The more severe the hypertension, the higher the incidence of the above complications. In addition hypertension is associated with a long-term risk for adverse cardiovascular events thus would recommend baseline maternal echocardiogram and EKG if she has not had one done. Reviewed the physiologic changes in with normal physiologic decrease in systemic vascular resistance leads to a decrease in blood pressure, with its marie at mid gestation, followed by return to prepregnancy levels by the third trimester. It is sometimes difficult to distinguish preeclampsia from a hypertensive crisis later in , as such, I recommend getting baseline labs to help distinguish these later in . Baseline labs include: LFTs, CBC, creatinine, urine analysis, protein creatinine ratio for proteinuria assessment. Medical therapy recommendations: In conclusion, the CHAP trial provides evidence that the treatment of mild chronic hypertension in , compared to no treatment unless hypertension becomes severe, reduces the risk of maternal and morbidity without increasing the risk of SGA infants or other morbidities. Based on the available evidence, [facility] recommends treatment with antihypertensive therapy for mild chronic hypertension in to a goal BP <140/90 mm Hg. Patients with treated chronic hypertension should continue established antihypertensive therapy during or change to a regimen compatible with to achieve this treatment goal. ACEI and ARB are absolutely contraindicated in , and care should be exercised regarding the use of diuretics such as furosemide and hydrochlorothiazide. In general, for the initial treatment of women with chronic hypertension who require pharmacologic therapy, labetalol, methyldopa or nifedipine are recommended. Continue to monitor blood pressure, with a goal blood pressure of less than 140/90. Additionally, home blood pressure monitoring should be encouraged. She is not on medications at this time. Based on previously published studies, the USPSTF recommends low dose aspirin (81mg daily) as it reduces the risk of preeclampsia by 24%, by 14%, and FGR by 20% for women who are at risk for preeclampsia when started after 12 weeks of gestation. There have been several dosing strategies for low dose aspirin for preeclampsia prevention, 81 mg (endorsed by ACOG) and 150 mg daily. Our practice continues to endorse the 81 mg dosing regimen for preeclampsia prevention as is recommended by the [place] [employer] Committee Opinion No. 743. Higher doses (150mg) have been studied, but utilized a screening strategy that is not widely performed in the [place] (serum analytes and uterine artery Doppler), limiting the generalizability of the findings. We discussed low-dose aspirin for preeclampsia prophylaxis risks benefits reviewed and the patient desires to start it. 3. In vitro fertilization Assisted reproductive technology (ART) namely in vitro fertilization (IVF) carries a slightly increased risk of , low weight, placental abruption, stillbirth, abnormal placentation and placental cord insertion such as increased risk for placenta previa, vasa previa and velamentous cord insertion, gestational diabetes and preeclampsia compared with spontaneously conceived pregnancies. The absolute risk for each of these complications however, is small, with most pregnancies having a normal outcome. One could consider early diabetes screening in the first trimester with repeat testing in the third trimester if negative. Candidate for growth ultrasound. In addition we discussed that while the baseline population risk of having a child with a congenital anomaly is 2-3%, IVF pregnancies (with or with out ICSI) have increased odds of congenital anomalies (odds ratio 1.30), some of which may not be detectable antenatally. Anatomy scan and echocardiogram today did not reveal anatomical defects on the fetus. Limitations of ultrasound reviewed. This was a PGT tested embryo and also she has a low risk cell free DNA. Limitations of the aneuploidy screening were reviewed the patient is not interested in further genetic testing including amniocentesis. 4. History of heart murmur She is asymptomatic and an avid athlete. She tells me that she has a workup through her PCP when she was younger. On exam today heart murmur not appreciated however exam limited by body habitus. If she has not had a echocardiogram would recommend one. Recommendations: Start low dose aspirin daily - script sent today Please obtain baseline protein creatinine ratio and CMP if not done Continue to monitor blood pressure, with a goal blood pressure of less than 140/90. Serial growth assessment every 4 weeks after anatomy scan at primary OB office surveillance is recommended to start at 32 weeks with weekly NST/DVP, or earlier if poorly controlled HTN, FGR, or preeclampsia. Increase NST x2 week at 36 weeks at primary OB office Maternal echocardiogram and baseline EKG through primary OB. If abnormal please refer to cardiology Delivery from 38 0/7 weeks to 39 6/7 weeks of gestation for women with chronic hypertension who are not prescribed medication or from 37 0/7 weeks to 39 6/7 weeks of gestation for women whose chronic hypertension is well-controlled with medication. Monitor for signs and symptoms of preeclampsia The patient does not have future ultrasounds or office visits with the Maternal- Medicine if you would like for us to see the patient against please refer. Plan reviewed with patient. She vocalized understanding all questions answered. The patient is to continue with routine care in your office Thank you for allowing me to participate in her care. Please contact me if you have any concerns. Hugo Rodriguez MD, FACOG (she/hers) Maternal- Medicine [place] [id number] [facility] [address] [place] [address] This document was created with [employer] technology. Though I make every effort to review the dictation as it is transcribed, on occasion the spoken word can be misinterpreted by the technology leading to inappropriate words, phrases, or sentences. This note is addressed to the requesting provider as a consultation for clinical guidance. Specific medical abbreviations are occasionally used and those are generally approved by the [place]?Board of?Obstetrics and?Gynecology?as well as?Kenzie croft abbreviations. The above plan of care was based solely on the diagnoses for which a consultation was requested. ?More frequent testing may be indicated based on her other medical/obstetrical conditions. The management of other or medical conditions is beyond the scope of requested consultation and will continue to be followed by the primary electronic maintenance supervisor or primary care provider. Note to patient: The Century Cures Act makes medical notes like these available to patients in the interest of transparency. However, be advised this is a medical document. It is intended as peer to peer communication. It is written in medical language and may contain abbreviations or verbiage that are unfamiliar. It may appear blunt or direct. Medical documents are intended to carry relevant information, facts as evident, and the clinical opinion of the practitioner. Headache/epigastric pain/blurry vision/swelling? no Cramping/contractions? no Abnormal vaginal discharge? no Spotting/vaginal bleeding? no Loss or gush of fluid like your water may have broken? no Do you have cats at home? no Do you change the litter box (reason: risk of toxoplasmosis)? Genetic testing done this here or other office? yes - IVF Have you been seen here at [facility] in a previous ? N/a Recent ER visits or hospitalizations? no Bring blood sugar log or meter with you today? (Please bring them with you for every visit at [facility]) no Flu vaccine (May-September)? no Any concerns that you would like me to mention to the provider today? no documented in this encounter [facility] History of Present illness Narrative 05-25-2024 Esperanza Peter LPN - 05/25/2024 11:10 AM EDT Note Date & Type Note Facility 05-25-2024 History of Presen t illness Narrative Reason for Appointment: Patient ID: Amy Singleton is a 23 y.o. female who presents [...] mg, Oral, Daily ALLERGIES Allergies Allergen Reactions Oktibbeha Flavor [Oktibbeha Oil] Latex Hives, Itching, Rash and Swelling [...] nursing note reviewed. Exam conducted with a home visit field care manager present. Vitals: Estimated body mass index is [...] Luis Hilton DO documented in this encounter [facility] Evaluation note Note Date & Type Note Facility Evaluation note No assessment information availa [facility] Work Phone: Evaluation note Note Date & Type Note Facility Evaluation note Diagnosis Well woman exam with routine gynecological exam Routine gynecological examination Second trimester state, incidental Vaginal discharge Leukorrhea, not specified as infective STD exposure documented in this encounter [facility] Evaluation note Note Date & Type Note Facility Evaluation note Diagnosis 21 weeks gestation of - Primary Chronic hypertension affecting In vitro fertilization Encounter for assisted reproductive fertility procedure cycle documented in this encounter [facility] Evaluation note Note Date & Type Note Facility Evaluation note Diagnosis Second trimester state, incidental 22 weeks gestation of Personal history of cardiac murmur Personal history of other diseases of circulatory system documented in this encounter [facility] Instructions Note Date & Type Note Facility Instructions Not on filedocumented in this en counter [facility] Instructions Note Date & Type Note Facility Instructions Not on filedocumented in this en counter [facility] Instructions Attachments Note Date & Type Note Facility Instructions The following attachments cannot be sent through Care Everywhere.Preeclampsia (Nepalese)documented in this encounter [facility] Summary Purpose Family History No Family History [...] section and content) DATE CREATED AUTHOR 03/06/2019 [facility] DATE CREATED AUTHOR AUTHOR'S ORGANIZ ATION 12/21/2021 [employer] [facility] DATE CREATED AUTHOR AUTHOR'S ORGANIZ ATION 12/01/2022 [facility] DATE CREATED AUTHOR AUTHOR'S ORGANIZ ATION 06/17/2024 [facility] DATE CREATED AUTHOR AUTHOR'S ORGANIZ ATION 2024 [facility] Care Teams (unrecognized sec tion and content) Team Status: Active Member Role Status Dates Damon Stover DO Primary Care Provider Active Team Status: Inactive Member Role Status Dates Damon Stover DO Primary Care Provider Active Start: January 02, 2024 End: January 02, 2024 Teresa Sanchez APRN Attending Provider Active S tart: January 02, 2024 End: January 02, 2024 [employer] Relationship Specialty Start Date End Date Kayce Grant MD [address] [place] [id number] PCP - General Family Medicine 11/27/23 Cell Reliner Relationship Specialty Start Date End Date Kayce Grant MD [address] [place] [phone] PCP - General Family Medicine 11/27/23 Cell Reliner Relationship Specialty Start Date End Date Kayce Grant MD [address] [place] [id number] PCP - General Family Medicine 11/27/23 Cell Reliner Relationship Specialty Start Date End Date Kayce Grant MD [address] [place] [phone] PCP - General Family Medicine 11/27/23 Cell Reliner Relationship Specialty Start Date End Date Kayce Grant MD [address] [place] [phone] PCP - General Family Medicine 11/27/23 Goals (unrecognized section and content) Goals may be documented in a n alternate sectionNot on filedocumented as of this encounterNot on filedocumented as of this encounterNot on filedocumented as of this encounter Reason for Visit (unrecogniz ed section and content) Reason Comments Routine Visit Well Women Visit STI Screening Reason Comments Hypertension IVF Reason Comments Routine Visit FOR RECORDS PERTAINING TO PATIENTS WHO ARE [...] BE BASED ON THE PRIMARY CLINICAL RECORDS. [employer] provides no warranty or guarantee of the accuracy or completeness of information in this document.
== END 2024-06-29 07:54 | disposition home or self-care (01) ==
LOC: CARD 07:58
PROVIDERS: PCP Family Medicine; Visit Provider Obstetrics & Gynecology
DX: Z86.79 Personal history of other diseases of the circulatory system (principal)
CPT/HCPCS: 93005

== ENCOUNTER 2024-08-05 09:37 | Outpatient (OUT) | payer OTHER, BC, SELFPAY ==
--- NOTE | 2024-08-05 09:40 | US_ITS ---
[address] [address] Patient Name: ANNA MARIO MRN: [id number] date: 2000 Sex: F Assigned Patient Location: US Current Patient Location: US Accession/Order Number: [id number] Exam Date: 08/05/2024 09:41 Report Date: 08/05/2024 10:56 At the request of: LUIS DOTY Procedure: US OB growth EXAMINATION: US OB growth HISTORY: resulting from in vitro fertilization COMPARISON: No relevant comparison available. FINDINGS: Heart Rate: 156.07 bpm Amniotic Fluid Volume: 18 cm, largest fluid pocket 5.7 cm Number: 1 Position: Cephalic presentation, longitudinal lie BIOMETRY: BPD: 7.39 cm; 29 weeks 5 days; 63.20 % HC: 27.16 cm; 29 weeks 4 days; 40 % AC: 25.66 cm; 29 weeks 6 days; 72.70 % FL: 5.66 cm; 29 weeks 5 days; 60.30 % EFW: 1449.24 g; 71.10 %, 3 lbs. 3 oz. FL/AC: 22.05 FL/BPD: 76.61 HC/AC: 1.06 GESTATIONAL AGE: Age by EDC: 28 weeks 6 days SARA by EDC: 2024-10-22 Age by US: 29 weeks 5 days SARA by US: 2024-10-16 US/US OB growth IMPRESSION: Normal interval growth Electronically authenticated by: CLEMENTINE DEWEY Date: 08/05/2024 10:56
[2024-08-05 10:17] LABS: Basophils Percent Auto 0.3 % (0.2-2.0); Eosinophils Absolute Auto 0.1 10^3/uL (0.0-0.7); Hematocrit 32.6 % (36.0-48.0); Hemoglobin 11.3 g/dL (12.0-16.0); Immature Granulocytes Abs Auto 0.07 10^3/uL (0.00-0.03); Immature Granulocytes Pct Auto 0.9 % (0.0-0.5); Lymphocytes Absolute Auto 1.6 10^3/uL (1.2-3.8); Lymphocytes Percent Auto 19.6 % (20.5-60.0); Mean Corpuscular HGB Conc 34.7 g/dL (29.9-35.2); Mean Corpuscular Hemoglobin 30.4 pg (26.7-34.0); Mean Corpuscular Volume 87.6 fL (81.0-99.0); Mean Platelet Volume 9.7 fL (9.5-13.5); Monocytes Absolute Auto 0.6 10^3/uL (0.3-0.8); Neutrophils Absolute Auto 5.6 10^3/uL (1.4-6.5); Neutrophils Percent Auto 70.2 % (43.0-75.0); Platelet Count 400 10^3/uL (150-450); Red Blood Count 3.72 10^6/uL (4.20-5.40); Red Cell Distribution Width 13.2 % (11.0-15.0)
== END 2024-08-05 09:38 | disposition home or self-care (01) ==
LOC: US 09:38
PROVIDERS: PCP Family Medicine; Visit Provider Obstetrics & Gynecology
DX: O09.819 Supervision of pregnancy resulting from assisted reproductive technology, unspecified trimester (principal); Z13.1 Encounter for screening for diabetes mellitus; E28.2 Polycystic ovarian syndrome; Z3A.28 28 weeks gestation of pregnancy
CPT/HCPCS: 36415; 76816; 85025

== ENCOUNTER 2024-08-12 08:10 | Outpatient (OUT) | payer OTHER, BC, SELFPAY ==
--- OUTSIDE RECORDS SUMMARY | 2024-08-12 08:33 | XMS_ITS | CCD ---
Author Organization [facility] Care Team Providers Care Buyer Intern Name Role Phone YOBANI ., DR SMITH [...] LUIS Attending Unavailable LUIS HILTON Attending Unavailable LUIS HILTON Attending Unavailable Allergies Allergy Classification Reported Allergen(s) Allergy Type Date of Onset Reaction(s) Facility (2 sources) Latex Drug allergy (disorder) 0 hives [facility] Repository (1 source) orange flavor Drug allergy (disorder) 0 [facility] Repository (5 sources) Starke - fruit; Translations: [ORANGE] 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 4 anaphylaxis [facility] (20 sources) Latex 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 4 Hives, Itching, Rash, Swelling [facility] (17 sources) orange allergenic extract Drug Allergy 4 [facility] Healthcare Work Phone: (1 source) natural latex rubber; Translations: [LATEX, NATURAL RUBBER] Propensity to adverse reactions to drug (disorder) 4 [facility] Repository Medications Current Medications Medication Drug Class(es) Dates Sig (Normalized) Sig (Original) acyclovir 800 mg oral tablet (20 sources) Herpesvirus Nucleoside Analog DNA Polymerase Inhibitor, [...] then stop 30 tablet 6 06/15/2024 Active azithromycin 250 mg oral tablet (4 sources) Macrolide Antimicrobial Start: 07-15-2024 azithromycin (Zithromax Z-Jam) 250 MG tablet Indications: Sinusitis, unspecified chronicity, unspecified location As directed 6 tablet 07/15/2024 Active BD [employer] misc (17 sources) Start: 03-24-2024 BD [employer] misc Indications: Female infertility 1 each if needed (1 large container) 1 each 1 03/24/2024 Active Blood Glucose Monitoring Suppl (D-Care Glucometer) w/Device kit (3 sources) Start: 07-20-2024 End: 07-20-2025 Blood Glucose Monitoring Suppl (D-Care Glucometer) w/Device kit Indications: Gestational diabetes mellitus (GDM), antepartum, gestational diabetes method of control unspecified , Elevated glucose tolerance test 1 kit Daily Use four times daily to check FSBS. In the morning prior to breakfast & 1 hour after each meal for a total of 4times daily. 1 kit 07/20/2024 07/20/2025 Active cholecalciferol 0.05 mg oral tablet (3 sources) Vitamin D take 1 tablet by mouth in the morning cholecalciferol, vitamin D3, 2,000 units tablet Take 1 tablet (2,000 Units total) by mouth in the morning. Active 0.5 ml choriogonadotropin berta 0.5 mg/ml prefilled syringe (1 source) Gonadotropin Start: 11-26-2023 End: 03-27-2024 Ovidrel 250 MCG/0.5ML injection 11/26/2023 03/27/2024 Discontinued estradiol 2 mg oral tablet (18 sources) Estrogen Start: 12-31-2023 estradiol (Estrace) 2 MG tablet 2 mg 12/31/2023 Active ibuprofen 600 mg oral tablet (17 sources) Nonsteroidal Anti-inflammatory Drug Start: 01-04-2023 take 1 tablet by mouth every six hours ibuprofen 600 MG tablet Take 1 tablet by mouth every 6 (six) hours 01/04/2023 Active isopropyl alcohol 0.7 ml/ml medicated pad (3 sources) Start: 07-20-2024 Alcohol Swabs (Alcohol Prep Pad) 70 % pads Indications: Gestational diabetes mellitus (GDM), antepartum, gestational diabetes method of control unspecified , Elevated glucose tolerance test Apply 1 Pad topically Daily Use four times daily to check FSBS. 150 each 3 07/20/2024 Active Start: 07-20-2024 Alcohol Swabs (Alcohol Prep Pad) 70 % pads Indications: Gestational diabetes mellitus (GDM), antepartum, gestational diabetes method of control unspecified , Elevated glucose tolerance test Apply 1 Pad topically Daily Use four times daily to check FSBS. 150 each 3 07/20/2024 Active labetalol hydrochloride 200 mg oral tablet (20 sources) beta-Adrenergic Kyle Start: 01-02-2024 take 100 mg by mouth twice daily Labetalol Active 100 MG PO Twice daily January 02, 2024 12:00am Start: 11-29-2023 End: 03-28-2024 take 1 tablet by mouth in the morning labetalol (Normodyne) 200 MG tablet Indications: Blood pressure instability Take 1 tablet (200 mg) by mouth in the morning and 1 tablet (200 mg) before bedtime. 60 tablet 3 11/29/2023 Active letrozole 2.5 mg oral tablet (2 sources) Aromatase Inhibitor Start: 12-31-2023 End: 03-27-2024 take 2.5 mg by mouth once daily Letrozole Active 2.5 MG PO Daily January 02, 2024 12:00am magnesium oxide 400 mg oral tablet (2 sources) Start: 03-23-2024 End: 04-22-2024 take 1 tablet by mouth once daily magnesium oxide (Mag-Ox) 400 MG tablet Indications: Nonintractable headache, unspecified chronicity pattern, unspecified headache type Take 1 tablet (400 mg) by mouth Daily 30 tablet 6 03/23/2024 04/22/2024 Active metFORMIN hydrochloride 500 mg oral tablet (20 sources) Biguanide Start: 04-30-2023 take 4 tablets [...] (500 mg total) before bedtime. Active methylPREDNISolone (7 sources) Corticosteroid Start: 06-16-2024 methylPREDNISolone (Medrol Dospak) 4 MG tablets Indications: Poison contreras Day 1: 6 tablets Day 2: 5 tablets Day 3: 4 tablets Day 4: 3 tablets Day 5: 2 tablets Day 6: 1 tablet 21 tablet 06/16/2024 Active metroNIDAZOLE 500 mg oral tablet (2 sources) Nitroimidazole Antimicrobial Start: 08-04-2024 End: 08-11-2024 take 1 tablet by mouth in the morning metroNIDAZOLE (Flagyl) 500 MG tablet Indications: BV (bacterial vaginosis) Take 1 tablet (500 mg) by mouth in the morning and 1 tablet (500 mg) before bedtime. Do all this for 7 days. Do not drink alcohol while taking this medication. 14 tablet 08/04/2024 08/11/2024 Active Start: 05-27-2024 End: 06-03-2024 take 1 tablet by mouth in the morning metroNIDAZOLE (Flagyl) 500 MG tablet Indications: BV (bacterial vaginosis) Take 1 tablet (500 mg) by mouth in the morning and 1 tablet (500 mg) before bedtime. Do all this for 7 days. Do not drink alcohol while taking this medication. 14 tablet 05/27/2024 06/03/2024 Active Multiple Vitamin (multivitamin) tablet (17 sources) take 1 tablet by mouth once daily Multiple Vitamin (multivitamin) tablet Take 1 tablet by mouth Daily Active norethindrone acetate 5 mg oral tablet (2 sources) Start: 12-31-19 End: 03-27-20 take 5 mg by mouth once daily Norethindrone Acetate Active 5 MG PO Daily January 02, 2024 12:00am ondansetron 4 mg disintegrating oral tablet (6 sources) Serotonin-3 Receptor Antagonist Start: 04-13-20 End: 05-13-20 take 1 tablet by mouth every six hours as needed for nausea and vomiting and nausea and nausea ondansetron ODT (Zofran-ODT) 4 MG disintegrating tablet Indications: Nausea Take 1 tablet (4 mg) by mouth every 6 (six) hours if needed for nausea or vomiting 30 tablet 2 04/13/2024 05/13/2024 Active take 1 tablet by gt th every eight hours as needed for nausea and vomiting ondansetron (ZOFRAN) 4 mg tablet Take 1 tablet (4 mg total) by mouth every 8 (eight) hours as needed for nausea or vomiting. Active predniSONE 10 mg oral tablet (20 sources) Start: 01-29-2024 take 5 mg by [...] tablet by mouth in the morning. Active progesterone 50 mg/ml injectable solution (3 sources) Progesterone Start: 03-23-20 End: 04-22-20 progesterone 50 MG/ML injection Indications: Female infertility Inject 0.2 mL (10 mg) into the shoulder, thigh, or buttocks Daily 6 mL 03/23/2024 04/22/2024 Active Start: 01-02-2024 Progesterone M icronized Active 200 MG VAGINAL Daily January 02, 2024 12:00am QUEtiapine 50 mg oral tablet (1 source) Atypical Antipsychotic Start: 01-02-2024 take 50 mg by mouth once daily Quetiapine Active 50 MG PO Daily January 02, 2024 12:00am terconazole 4 mg/ml vaginal cream (3 sources) Azole Antifungal Start: 05-25-2024 End: 06-03-2024 terconazole (Terazol 7) 0.4 % vaginal cream Indications: Yeast infection Insert 1 applicator into the vagina at bedtime for 7 days 45 g 05/27/2024 06/03/2024 Active Problems Active Problems Problem Classification Problem Date Documented Date Episodic/Chronic Contraceptive and procreative management (8 sources) Encounter for other procreative management; Translations: [Patient encounter status] Onset: 07-26-2022 Episodic Diabetes mellitus without complication (2 sources) Abnormal glucose tolerance test; Translations: [Other abnormal glucose] 07-20-2024 Episodic Diabetes or abnormal glucose tolerance complicating ; childbirth; or the puerperium (2 sources) Gestational diabetes mellitus; Translations: [Gestational diabetes mellitus in , unspecified control] 07-20-2024 Episodic Essential hypertension (3 sources) Hypertensive disorder; Translations: [Essential (primary) hypertension] Onset: 05-27-2024 4 Chronic Female infertility (6 sources) Female infertility [...] predominantly sexual mode of transmission] 05-25-2024 Episodic Menstrual disorders (1 source) Missed period; Translations: [Irregular menstruation, unspecified] 03-27-2024 Chronic Other circulatory disease (2 sources) History of clinical finding in subject; Translations: [Personal history of other diseases of the circulatory system] 06-22-2024 Episodic Other complications of (2 sources) Decreased fertility; Translations: [Supervision of resulting from assisted reproductive technology, unspecified trimester] 07-20-2024 Episodic Other endocrine disorders (4 sources) Polycystic ovarian syndrome; Translations: [POLYCYSTIC OVARIAN SYNDROME] Onset: 04-04-2022 Chronic Other endocrine disorders (4 sources) Polycystic ovary syndrome; Translations: [Polycystic ovarian syndrome] Onset: 05-27-2024 05-27-2024 Chronic Other female genital disorders (2 sources) Vaginal discharge; Translations: [Other specified noninflammatory disorders of vagina] 05-25-2024 Episodic Other screening for suspected conditions (not mental disorders or infectious disease) (5 sources) Encounter for other specified screening; Translations: [Patient encounter status] Onset: 06-15-2024 04-27-2024 Episodic Residual codes; unclassified (1 source) Gestation period, 21 weeks; Translations: [21 weeks gestation of ] 06-15-2024 Episodic Residual codes; unclassified (1 source) 21 weeks gestation of ; Translations: [21 weeks gestation of ] Onset: 06-15-2024 Episodic Residual codes; unclassified (2 sources) Gestation period, 22 weeks; Translations: [22 weeks gestation of ] 06-22-2024 Episodic Residual codes; unclassified (6 sources) Gestation period, 26 weeks; Translations: [26 weeks gestation of ] Onset: 07-20-2024 07-20-2024 Episodic Thyroid disorders (1 source) Nontoxic single thyroid nodule; Translations: [NONTOXIC SINGLE THYROID NODULE] Onset: 04-08-2022 Chronic Unclassified (12 sources) OB Reminders Onset: 05-18-2024 05-18-2024 Unclassified (1 source) IVF Onset: 06-15-2024 Past or Other Problems Problem Classification Problem Date Documented Da te Episodic/Chronic Other and delivery including normal (20 sources) Second trimester ; Translations: [Encounter for supervision of normal , unspecified, second trimester] Onset: 04-27-2024 04-27-2024 Episodic Ovarian cyst (4 sources) Other ovarian cyst, left side; Translations: [OTHER OVARIAN CYST LEFT SIDE] Onset: 05-17-2022 Episodic Residual codes; unclassified (16 sources) Gestation period, 14 weeks; Translations: [14 weeks gestation of ] Onset: 04-27-2024 04-27-2024 Episodic Results Test Name Value Interpretation Reference Range Facility ALL CBC WITH AUTO DIFFon BASOPHILS ABSOLUTE AUTO 0 [facility] Basophils/100 WBC (Bld) 0.3 % 0.2 - 2.0 % [facility] Eosinophils/100 WBC (Bld) 1 % 0.9 - 7.0 % [facility] Erythrocyte distribution width (RBC) [Ratio] 13.2 % 11.0 - 15.0 % [facility] Hematocrit (Bld) [Volume fraction] 32.6 % Low 36.0 - 48.0 % [facility] Hemoglobin (Bld) [Mass/Vol] 11.3 g/dL Low 12.0 - 16.0 g/dL [facility] IMMATURE GRANULOCYTES ABS AUTO 0.07 High [facility] Immature granulocytes/100 WBC (Bld) 0.9 % High 0.0 - 0.5 % [facility] Interpretation and review of laboratory results Abnormal [facility] LYMPHOCYTES ABSOLUTE AUTO 1.6 [facility] Lymphocytes/100 WBC (Bld) 19.6 % Low 20.5 - 60.0 % [facility] MCH (RBC) [Entitic mass] 30.4 pg 26.7 - 34.0 pg [facility] MCHC (RBC) [Mass/Vol] 34.7 g/dL 29.9 - 35.2 g/dL [facility] MCV (RBC) [Entitic vol] 87.6 fL 81.0 - 99.0 fL [facility] MONOCYTES ABSOLUTE AUTO 0.6 [facility] Monocytes/100 WBC (Bld) 8 % 1.7 - 12.0 % [facility] NEUTROPHILS ABSOLUTE AUTO 5.6 [facility] Neutrophils/100 WBC (Bld) 70.2 % 43.0 - 75.0 % [facility] Platelet mean volume (Bld) [Entitic vol] 9.7 fL 9.5 - 13.5 fL [facility] PLT 400 [facility] RBC 3.72 Low [facility] WBC 8 [facility] Urinalysis macro (dipstick) panel (U)on 06-22-2024 Bilirubin, UA Negative Negative - 4(70) +++ mg/dL [facility] Blood, UA Negative Negative - 50 Jimy/mcL [facility] Clarity, UA Clear [facility] Color, UA Yellow [facility] Glucose, UA Negative Negative - 1999(110) ++++ mg/dL [facility] Interpretation and review of laboratory results Abnormal [facility] Ketones, UA Positive Negative - 160(16) ++++ mg/dL [facility] Comment on above: 15 Leukocytes, UA Positive Negative - 500+++ Mychal/mcL [facility] Comment on above: small Nitrite, UA Negative Negative - Positive [facility] pH, UA 5.5 5 - 9 [facility] Protein, UA Trace Negative - 1999(20) ++++ mg/dL [facility] Spec Grav, UA 1.03 1 - 1.03 [facility] Urobilinogen, UA 0.2 0.2 - 12 mg/dL [facility] IGP,APTIMA HPV,AGE GDLNon AGE GDLN ACOG TESTING Note . [facility] Comment on above: TESTS RESULT FLAG U NITS REF RANGE LAB Clinician Provided Cytology Information Source.............Cervix Other.............. No. of containers..01 ThinPrep Vial Age Link Martinez... FLAG LEGEND: L-Low Normal,H-High Normal,LL-Alert Low,HH-Alert High <-Panic Low,>-Panic High,A-Abnormal,AA-Critical Abnormal Performed at: 01 =[address] [facility] [address] Mar Rivera MD, IGP, RFX APTIMA HPV ASCU Note . [facility] Comment on above: TESTS RESULT FLAG UN ITS REF RANGE LAB DIAGNOSIS: 02 NEGATIVE FOR INTRAEPITHELIAL LESION OR MALIGNANCY. FUNGAL ORGANISMS MORPHOLOGICALLY CONSISTENT WITH CARLOS SPECIES ARE PRESENT. Specimen adequacy: 02 Satisfactory for evaluation. No endocervical component is identified. An endocervical component is not commonly seen in the patient. Performed by: Judy Vera, Coding And Reimbursement Specialist ([facility]) . 02 Note: Note 02 The Pap [...] <-Panic Low,>-Panic High,A-Abnormal,AA-Critical Abnormal Performed at: [address] [id number] Mar Rivera MD, Performed at: =[address] [id number] Carrier Operator: Mar Rivera MD, Phone: [phone] Performed at: [address] [id number] Carrier Operator: Mar Rivera MD, Phone: [phone] SPATULA-ALONE CERVIX [facility] AFP, SERUM, OPEN SPINA BIFID Aon 05-30-2024 AFP MOM 1.36 . [facility] AFP VALUE 55.4 ng/mL . [facility] COMMENT: Comment . [facility] Comment on above: Ivet Mobley , Ph.D., [facility] Director References: Available Upon Request. Multiples Of Median Cutoffs For AFP Elevations Del Rosario 2.5 Black 2.8 IDD 2.0 Twins 4.5 Abbreviation Definitions IDD - Insulin Dep Diabetes OSBR - Open Spina Bifida Risk For further inquiries contact [employer] at [phone]. This test was developed and its performance characteristics determined by [employer]. It has not been cleared or approved by the Food and Drug Administration. Performed at: [facility] [address], [place], [place] [id number] Carrier Operator: Kristina Carter [facility], Phone: [phone] GEST. AGE ON COLLECTION DATE 18.6 . weeks [facility] GESTAT. AGE BASED ON LMP . [facility] Comment on above: Recalculations are n ot recommended when gestational dating by LMP and ultrasound are within 10 days. INSULIN DEP DIABETES No . [facility] INTERPRETATION Comment . [facility] Comment on above: Interpretation: Scre en Negative [...] Customer Services to discuss available options. The [employer] recommends amniocentesis be offered to women age 35 and older. MATER[age] AT SARA 25.3 [age] [facility] MULTIPLE GESTATION No . [facility] OSBR RISK 1 IN 4034 . [facility] RACE . [facility] RESULTS Report . [facility] TEST RESULTS: Negative . [facility] WEIGHT 185 . lbs [facility] N N LMP [id number] 4 18 N 1 Y 185 N N N N N White/ [facility] Urinalysis macro (dipstick) panel (U)on 04-27-2024 Bilirubin, UA Positive Negative - 4(70) +++ mg/dL [facility] Comment on above: small Blood, UA Negative Negative - 50 Jimy/mcL [facility] Clarity, UA Clear [facility] Color, UA Yellow [facility] Glucose, UA Negative Negative - 1999(110) ++++ mg/dL [facility] Interpretation and review of laboratory results Abnormal [facility] Ketones, UA Positive Negative - 160(16) ++++ mg/dL [facility] Comment on above: trace Leukocytes, UA Positive Negative - 500+++ Mychal/mcL [facility] Comment on above: small Nitrite, UA Negative Negative - Positive [facility] pH, UA 6.0 5 - 9 [facility] Protein, UA Negative Negative - 1999(20) ++++ mg/dL [facility] Spec Grav, UA 1.030 1 - 1.03 [facility] Urobilinogen, UA 0.2 0.2 - 12 mg/dL [facility] ALL CBC WITH AUTO DIFFon BASOPHILS ABSOLUTE AUTO 0.0 [facility] Basophils/100 WBC (Bld) 0.1 % Low 0.2 - 2.0 % [facility] Eosinophils/100 WBC (Bld) 0.9 % 0.9 - 7.0 % [facility] Erythrocyte distribution width (RBC) [Ratio] 13.0 % 11.0 - 15.0 % [facility] IMMATURE GRANULOCYTES ABS AUTO 0.03 [facility] Immature granulocytes/100 WBC (Bld) 0.3 % 0.0 - 0.5 % [facility] Interpretation and review of laboratory results Abnormal [facility] LYMPHOCYTES ABSOLUTE AUTO 2.3 [facility] Lymphocytes/100 WBC (Bld) 26.6 % 20.5 - 60.0 % [facility] MCH (RBC) [Entitic mass] 30.1 pg 26.7 - 34.0 pg [facility] MCHC (RBC) [Mass/Vol] 34.6 g/dL 29.9 - 35.2 g/dL [facility] MCV (RBC) [Entitic vol] 87.0 fL 81.0 - 99.0 fL [facility] MONOCYTES ABSOLUTE AUTO 0.4 [facility] Monocytes/100 WBC (Bld) 4.1 % 1.7 - 12.0 % [facility] NEUTROPHILS ABSOLUTE AUTO 5.9 [facility] Neutrophils/100 WBC (Bld) 68.0 % 43.0 - 75.0 % [facility] Platelet mean volume (Bld) [Entitic vol] 9.6 fL 9.5 - 13.5 fL [facility] EO # 0.1 [facility] PLT 400 [facility] RBC 4.55 [facility] WBC 8.7 [facility] CBC without diffon Rbc Mcv (Fl) By Automated Count 87 [facility] - Hematology and Cell countson 04-08-2024 Hematocrit (Bld) [Volume fraction] 39.6 % [facility] Hemoglobin (Bld) [Mass/Vol] 13.7 g/dL [facility] No Panel Informationon 04-08 [facility] Rubella IGG immune statuson 04-08-2024 Rubella immune IgG 2.32 [facility] Syphilis Total(Unknown Syphi lis Status)on 04-08-2024 Syphilis Non-Reactive [facility] Type and screenon 04-08-2024 Abo/Rh(D) Positive [facility] HCG ( test) Ql (U)o n 03-27-2024 Interpretation and review of laboratory results Abnormal [facility] Preg Test, Ur Positive [facility] Urinalysis macro (dipstick) panel (U)on 03-27-2024 Bilirubin, UA Negative Negative - 4(70) +++ mg/dL [facility] Blood, UA Negative Negative - 50 Jimy/mcL [facility] Clarity, UA Clear [facility] Color, UA Yellow [facility] Glucose, UA Negative Negative - 2000(110) ++++ mg/dL [facility] Interpretation and review of laboratory results Normal [facility] Ketones, UA Negative Negative - 160(16) ++++ mg/dL [facility] Leukocytes, UA Negative Negative - 500+++ Mychal/mcL [facility] Nitrite, UA Negative Negative - Positive [facility] pH, UA 5.5 5 - 9 [facility] Protein, UA Negative Negative - 2000(20) ++++ mg/dL [facility] Spec Grav, UA 1.025 1 - 1.03 [facility] Urobilinogen, UA 0.2 0.2 - 12 mg/dL [facility] PROGESTERONEon 07-27-2022 Progesterone 26.9 ng/mL Normal [facility] Comment on above: Result Comment: Foll icular phase 0.1 - 0.9 Luteal phase 1.8 - 23.9 Ovulation phase 0.1 - 12.0 First trimester 11.0 - 44.3 Second trimester 25.4 - 83.3 Third trimester 58.7 - 214.0 Postmenopausal 0.0 - 0.1 Performed By: #### P ROGES #### [facility] [address] [address] [address] Ryan Francisco PREG QUANT HCGon 07-12-2022 HCG QUANT <1 Normal [facility] Comment on above: Performed By: #### P REGQNT #### [facility] [address] [address] [address] Ryan Francisco HCG RANGE SEE BELOW Normal [facility] Comment on above: Result Comment: 5-50 0.2-1 WEEK 50-500 1-2 WEEKS 100-5,000 2-3 WEEKS 500-10,000 3-4 WEEKS 1,000-50,000 4-5 WEEKS 10,000-100,000 5-6 WEEKS 15,000-200,000 6-8 WEEKS 10,000-100,000 2-3 MONTHS Performed By: #### P REGQNT #### [facility] [address] [place] [address] Dr. Ryan Francisco XR HYSTEROSALPINGO EXPon XR [...] CLEMENTINE DEWEY Date: 2022-07-12 12:34 Normal [facility] PROGESTERONEon 06-29-2022 Progesterone 4.6 ng/mL Normal [facility] Comment on above: Result Comment: Foll icular phase 0.1 - 0.9 Luteal phase 1.8 - 23.9 Ovulation phase 0.1 - 12.0 First trimester 11.0 - 44.3 Second trimester 25.4 - 83.3 Third trimester 58.7 - 214.0 Postmenopausal 0.0 - 0.1 Performed By: #### P ROGES #### [facility] [address] [place] [address] Dr. Ryan Francisco PROGESTERONEon 06-01-2022 Progesterone 18.9 ng/mL Normal [facility] Comment on above: Result Comment: Foll icular phase 0.1 - 0.9 Luteal phase 1.8 - 23.9 Ovulation phase 0.1 - 12.0 First trimester 11.0 - 44.3 Second trimester 25.4 - 83.3 Third trimester 58.7 - 214.0 Postmenopausal 0.0 - 0.1 Performed By: #### P BRETT #### [facility] [address] [place], [place] [address] Dr. Ryan Francisco US PELVIS AND TRANSVAGon [...] CLEMENTINE DEWEY Date: 2022-05-17 17:25 Normal [facility] PROGESTERONEon 04-29-2022 Progesterone 5.1 ng/mL Normal [facility] Comment on above: Result Comment: Foll icular phase 0.1 - 0.9 Luteal phase 1.8 - 23.9 Ovulation phase 0.1 - 12.0 First trimester 11.0 - 44.3 Second trimester 25.4 - 83.3 Third trimester 58.7 - 214.0 Postmenopausal 0.0 - 0.1 Performed By: #### Johnathon WEST ####[facility] [facility] [id number] [place], [place] [address]TxDr. Ryan Francisco ANTI-MULLERIAN HORMONEon Anti-Mullerian Hormone (AMH) 6.09 ng/mL [facility] Comment on above: Result Comment: For assays employing antibodies, the possibility exists for interference by heterophile antibodies in the samples.1 1.Steffen Peguero. Interferences in Immunoassays - still a threat. Clin. Chem. 2000; 46: 0823-3550. This test was developed and its performance characteristics determined by [employer]. It has not been cleared or approved by the Food and Drug Administration. Reference Range: Females 20 - 25y: 1.23 - 11.51 Median 4.70 AMH concentrations of >= 1.06 ng/mL is correlated with a better response to ovarian stimulation, produced more retrievable oocytes and higher odds of live according to Larry et al. Fertility and Sterility. 2010: 94:6423-5202. The current AMH test method correlates with [...] AMH-secreting ovarian tumor. Performed By: #### A [facility] #### [facility] [address] [place] [address] Dr. Ryan Francisco FSHon 04-05-2022 FSH 3.6 mIU/mL Normal [facility] Comment on above: Result Comment: Adul t Female: Follicular phase 3.5 - 12.5 Ovulation phase 4.7 - 21.5 Luteal phase 1.7 - 7.7 Postmenopausal 25.8 - 134.8 Performed By: #### [facility] #### [facility] [address] [place] [address] Dr. Ryan Francisco LUTEINIZING HORMONE (LH)on 0 04-05-2022 LH 6.8 mIU/mL Normal [facility] Comment on above: Result Comment: Adul t Female: Follicular phase 2.4 - 12.6 Ovulation phase 14.0 - 95.6 Luteal phase 1.0 - 11.4 Postmenopausal 7.7 - 58.5 Performed By: #### L [facility] ####[facility] [address] [place] [address]Dr. Ryan Francisco CBC AUTO DIFFon 04-04-2022 BASO # 0.0 103/ul Normal 0.0-0.1 [facility] Comment on above: Performed By: #### C BC #### [facility] [address] [place] [address] Dr. Ryan Francisco Basophils/100 WBC (Bld) 0.3 % Normal 0.2-2.0 [facility] Comment on above: Performed By: #### C BC #### [facility] [address] [place] [address] Dr. Ryan Francisco EO # 0.1 103/ul Normal 0.0-0.7 [facility] Comment on above: Performed By: #### C BC #### [facility] [address] [place] [address] Dr. Ryan Francisco Eosinophils/100 WBC (Bld) 1.7 % Normal 0.9-7.0 [facility] Comment on above: Performed By: #### C BC #### [facility] [address] [place] [address] Dr. Ryan Francisco Erythrocyte distribution width (RBC) [Ratio] 12.7 % Normal 11.0-15.0 [facility] Comment on above: Performed By: #### C BC #### [facility] [address] [place] [address] Dr. Ryan Francisco Hematocrit (Bld) [Volume fraction] 39.7 % Normal 36.0-48.0 [facility] Comment on above: Performed By: #### C BC #### [facility] [address] [place] [address] Dr. Ryan Francisco Hemoglobin (Bld) [Mass/Vol] 13.4 g/dL Normal 12.0-16.0 [facility] Comment on above: Performed By: #### C BC #### [facility] [address] [place] [address] Dr. Ryan Francisco IG # 0.03 10e3/ul Normal 0.00-0.03 [facility] Comment on above: Performed By: #### C BC #### [facility] [address] [place] [address] Dr. Ryan Francisco IG % 0.5 % Normal 0.0-0.5 [facility] Comment on above: Performed By: #### C BC #### [facility] [address] [place] [address] Dr. Ryan Francisco LYMPH # 1.6 103/ul Normal 1.2-3.8 [facility] Comment on above: Performed By: #### C BC #### [facility] [address] [place] [address] Dr. Ryan Francisco Lymphocytes/100 WBC (Bld) 27.1 % Normal 20.5-60.0 [facility] Comment on above: Performed By: #### C BC #### [facility] [address] [place] [address] Dr. Ryan Francisco MANUAL DIFF REQ NO Normal [facility] Comment on above: Performed By: #### C BC #### [facility] [address] [place] [address] Dr. Ryan Francisco MCH (RBC) [Entitic mass] 29.6 pg Normal 26.7-34.0 [facility] Comment on above: Performed By: #### C BC #### [facility] [address] [place] [address] Dr. Ryan Francisco MCHC (RBC) [Mass/Vol] 33.8 g/dL Normal 29.9-35.2 [facility] Comment on above: Performed By: #### C BC #### [facility] [address] [place] [address] Dr. Ryan Francisco MCV (RBC) [Entitic vol] 87.6 fL Normal 81.0-99.0 [facility] Comment on above: Performed By: #### C BC #### [facility] [address] [place] [address] Dr. Ryan Francisco MONO # 0.4 103/ul Normal 0.3-0.8 [facility] Comment on above: Performed By: #### C BC #### [facility] [address] [place] [address] Dr. Ryan Francisco Monocytes/100 WBC (Bld) 6.7 % Normal 1.7-12.0 [facility] Comment on above: Performed By: #### C BC #### [facility] [address] [place] [address] Dr. Ryan Francisco NEUT # 3.7 103/ul Normal 1.4-6.5 [facility] Comment on above: Performed By: #### C BC #### [facility] [address] [place] [address] Dr. Ryan Francisco Neutrophils/100 WBC (Bld) 63.7 % Normal 43.0-75.0 [facility] Comment on above: Performed By: #### C BC #### [facility] [address] [address] [address] Ryan Francisco Platelet mean volume (Bld) [Entitic vol] 9.9 fL Normal 9.5-13.5 [facility] Comment on above: Performed By: #### C BC #### [facility] [address] [address] [address] Ryan Francisco PLT 421 103/ul Normal 150-450 [facility] Comment on above: Performed By: #### C BC #### [facility] [address] [place] [address] Dr. Ryan Francisco RBC 4.53 106/ul Normal 4.20-5.40 [facility] Comment on above: Performed By: #### C BC #### [facility] [address] [place] [address] Dr. Ryan Francisco WBC 5.8 103/ul Normal 4.0-11.0 [facility] Comment on above: Performed By: #### C BC #### [facility] [address] [place] [address] Dr. Ryan Francisco FREE T4on 04-04-2022 Free T4 [Mass/Vol] 0.99 ng/dL Normal 0.76-1.46 [facility] Comment on above: Performed By: #### F T4 #### [facility] [address] [place] [address] Dr. Ryan Francisco TSHon 04-04-2022 TSH 3.086 uIU/mL Normal 0.358-3.740 [facility] Comment on above: Performed By: #### T SH ####[facility] [address] [place] [address]Dr. Ryan Francisco US PELVIS AND TRANSVAGon US [...] by: LUCHO PADRON Date: 2022-04-04 16:38 Normal [facility] Auth for Release of Medical Recordson 12-20-2021 Auth for Release of Medical Records [id number]# 1.00CD:127 Normal [facility] Coding Summary.on 08-22-2021 Coding Summary. CD:[id number] Gh0bWw+PGhlYWQ+PE1FV QXsL79wsPZrgL8SU5cSI R5XDXEOGDNOSO5YHI5ly TR5FVjvP8EqjnFg ZrkcyRIxXR15WUg2ABX8 sUexSBfgkZ8liDKxI8j2 IeYhCN11eB97MZqhGZEn XpA9OvCcctemmETk I4rwNaHapGQqOzw+PHRh YmxlIHdpZHRoPScxMDAl KqEaqOeaSD4pAr1uFTGy LWNvbGxhcHNlOiBj z7uiTNMqZKdbZP6pyXtk T9QbkKK6QXKdf8l1Rj87 dHI+WNTaDMV4mNdqTZue q169RaAxi9iyMFA7 tQSbTYpiPVA7T18kh3L0 GWZuNHVaWPL3dUK0xU9f eXzpnzolM2XehJAvKvA4 KRD7bMFbtG7gmJao pkaykM9hNzx+R38KSR5T INFFPL0JSfk7Y3FsFvfi dHI+OV62XITbMK21bNBv vANce1cxyKf4IrVc WBTqJFX5fAyzUUrcy8Er BPYtB56moMDrm3W5BFTz sWknsABrBvBxwKP0yC7t AUkjpstsv2ztknsz Fvovc7iyvo88xF47K68j YXbgADTjHTF5DYKvUHHs qNdczi9rpX0bIz1+IDxj g7nkt5johUk7BuEd ZKVanbDffClpGIU0s5Hc So67V9TquCflo7XfUgn9 hb34sADvh8X7vUQ2JLjm BYAadK5jMNujCzZ1 WDJqCsBzpX16aSXjPMlp Iw4oaCjyzZwfAO1nERXv hijpOKTboA0bNXJttAFm kPusOD8qCSFamoiu m407NbIrDER9WPZpeHTv K8GvgX4mSmRsGNOzRNPx E2TinXPpZAciM665BLuj DnN8RFIrggJfC8Dm UVSmuGroEqJ6p1S6Xe7H x1LeuywtPRL6CFlzAYOt BhK3KfVvFfQ7Y6IoCoa5 KFIpqCqkRK2aI6Lv SRYrcvhpbmqytTL2FWRm NYHfoO06eMDcBTixWa4i n2C4x629VQRsPQVylV24 Jt2ctHsvRYJfzTQD rP1ykngck6rewrzgBmWf MKEgOAs3OJd8QCDglQhg RcWgZVI6HxJ6DPE0dHVn rQ3sdFdqsudfoG8p Oyc+I43mgN9eHZF9CLX7 nimwZWKodfPcUN54BI48 A9IaIabnmKGauTK+PGRp ocRkbJqiIJ9aWeXf s8gyh8OaDCedN4CbRERs AMkuIsd7LFRaNEP4zWS7 jS3bMQSpQNxoa1S3lJP7 O3OmtnXfgx1dl2so EWRePKrlQ70kcOYka9F2 JHQclZT9GDBnxTxeLmIx jC83Lhv+JAYbpRaib0Sg Fqtfo5paa1uvcYk0 IjMwJSIgdmFsaWduPSJ0 u3AdZk14D23bAInySLNk TUZoGKTtVDUjzLsrhn1q fU3aWx7+PGNvbCB3 iWB7bU1fCKQzUvC0LShp V876DgUhfSAhDvayz7oh a7bsxXm2LqIcNLCweqQj cJonIYN3w7MnOf05 H65tORhqEAVxEPQlSUCq WQEcgXyryc7jfB9oOz5+ PX3xs9unmm47jR57iAJ+ MTZmLQG4hFykYPvd SHZaeX8aMHuxCaQ2NKWc GaXxaL86qWNuKPzcXa1o iLgrdMidHM6bHBPgrrms x571YoMwq4esBBHr xBUuQOdoEYN5F58sh9T3 HNGeDZOjCIF9qAC2rB8a bGlnbjogbGVmdDsgdmVy eTbmRAqtOOcqD925 IHRvcDsnPlBhdGllbnQg QhQtBEj5G6EwKay2MIXa rZxmKN7coISmLSgkSi0y zQyqfNylOB5eCWNn wtzlx456ZhPsm6bpFQEq wZBxJAaaUPQ1V75lj3F5 WHFcDGIaLWT2iIO1lM9r bGlnbjogbGVmdDsg khEvsJbdGXlbRXadD397 IHRvcDsnPkJpcnRoIERh wIN5EU42LG15cQXgb8T4 zKJ1W1WnIGTihetv sqpgwGS4ZQQsMPCpcS70 Mr7pgNvlRl6fUVYjUIR2 FYKtcRXgL5JwjQ9sJpQr YSLhTZJfH2BkcXUh NNsiD486KWalWoJ5FCAk jvFnQ1XrSUYmgBhaFyA6 k4S9Wu1SY6B9EO95DA15 rFGsy1J3cAI3T4It VAKksgfwsmmvyYJ5EYIz SEAepX91Kf4tmLwbAq6n WXNyIQQ7LKIcdAJcQ0Pu iE1aEaSmAKYwADXp T9IcbBCaZRoiX368MTke NmG9LQIdlwEzM2FzXRZj gLfgSmG9z2Y3Lh2PJRt7 ZW08TR51cPUec3V7 lKR6D3BhZLBfktovgktj jUE5CKUvVBJzuC77Yw0x jEmkNh4aJWHkSBZ8FGJh cFBzE2NkzB9vZjRn SOUdDPOpS3MzuKVyFKba O820NIgwSyN4VSCwsbQd D3VxRDBxsMiyWoY2x8R0 Ij3VJYShOT65WPN3 cRV7NT70MR66W0MlHfjd dGFibGU+PHRhYmxlIHdp ZHRoPScxMDAlJyBzdHls SH6jSm2nNCTrEGRm cHsneFRfXbDmo1fbMJVv FCzuKN4wyZckI7SwjGH8 KSWtd6f3Xz29Y42aF3Iy dXA+QFNwhSL8jDP3 dP4zVyCrGeU4KHrcA007 SsCeeBElZzkao9dqe6lq eSo2DkC7ISWqltQziMzr QQW8j0GbBg53X23t IHdpZHRoPSIxNSUiIHZh aVujkq3isR5yCk2+PGNv mGX3vKI6iU1wVeZrEcS4 YWegF089LvRntJCz Ztkaj8crz4qmfEo6MgRg KYSynxOarWffSOL5h8Ud Hy24N0NiwFoha2GuBgh5 ef39qOWbt3P0eHH0 W9LyPSZacgzjwVCooKvd OW8eJTGdaavfRJQcfO8y PVKkW8t5OjYxRcX7AKei Q5LbijR2VLCozFLv NQwsILQ6D72da2O8QTXu ZBBePJK0yHZ3fV7nhQod bjogbGVmdDsgdmVydGlj VCidHFjxK249ZWFf eWgmEYEwiV7jBBIzlJBj sYzdTH0eTFKrdhmzScnP OKScOJrHUYKBEY11SV30 pZYky4U2fZL3C8Na NVCmljhpftvekPC5OEBa ZFXgaL39vWAcEMrtBt0u f9R6d774TUJtWJBbvB44 Pq0bzIhoIWKkaUWS iU5gtibhu4gybrkmGxBp ZUWlYDu5ZZi4GMCbpMep EnAvTKR2BnX7QIJ7aZWt bV6bmZkikqouhC0w Oyc+WGLgXbcqJUk6BTqi dGQ+URYgLYM9tSvhFHwm TTYcsT0bTGNgP5b3DkYg XmH9WKggS1LcTDAk vcndVc59sT8fUwXtKgH0 CTgaX8QyjbM8DITtsKAd QCwaOXN2Y33lq1D3RAQr RYWnSEV7bNJ8rS4m bGlnbjogbGVmdDsgdmVy fRzkGBaoLWlkZ668EIKo lObjWrVlLBfvPKTiUM29 FA37tZKrz8O0hFH9 I8XwCFSolpsrptxyuLR3 RYBtINSumM28vIYjYNom Dy8cm7C0j762ZAVhXDIi lR98Zc5uuBwvFHRu xXOGzA5hpccjo6xnsens HlIzQOXgEAi8NPt5VOTz fDlcRwTdQZT1JmA3OPO9 eEForQ6fvKzpvtnw bX1fTaf+PsJjMCtyGT17 FG14pMRon4Z8zJO4T1Yb IWYysqhizdxnbBH2KFOq XYBsdP78mRDxWCic Sh3ha4D6a410CNZwORIp lL73Uy3ueRusHMOnbBMV aW8qvjwyp6zmpavrUiMj WRJaPQo4WNr9HQNc dKtzQtXvFGB5XpR0CLQ2 vYIwyY0tkHsyrrkyrG3v Oyc+E0M1hSR7xWQnlVwx dGQ+RT38lc02A1Zn HmcjXyk9CFQzPMC5nDE6 pW7mQPZuNOldt8K0nCJ8 M8HpbhZmjl6wt2qnZGYw YZyvQ02cvUAhq4F0 EHJmwSJ5OLDklXckEzHm hI45Vbl+KZFiuUeul4Ma Kxchb8oux2anvGy7QwHh JSIgdmFsaWduPSJ0 i8XrTd82B44oRFypONAx ONOaYLVjRDDaiHrrxe5g dM2fEc1+KBSwqUU6yEY8 yQ6dOqVkVlQ0KOtt Z309RbFefFSsAmayf2zt s5fwmMd1OdWeVBKtclAx gMdhZCV6a2LpFr67N9Zm xVbtr8PkUdp8jr70 hWWuf9N6hJV7S4MfJVZa chmqyGGgbEhnKU3oLTSf lzonQERzrC0xCJJoJ1r6 JeFkBpS6FCbvO0Pn rnZ1SWEgkSUlZDMxwTWP rU7siznnu6iqtmuqAmXv XNLdIUu0NEx4IIEuyQhs NcKpIKK1YgN4BDW0 cCIcoJ9egShdykqatT5h Oyc+LXv0b4fhtDPdWR8n zOF2ZZ25LA56mRHej6B1 eCN3N4FuIXKqpudj sxtvtTO5VAShNXNjyU76 Qv2agLncRg4mRUIzOEQ3 VOHcfSVfU1FidB9yXpIb KXHeKMJrA8TbpVVp PNndL338SJmcOdB5GVOs ftVxH3HcSBGcaKitMhW7 p0F0Hv3DKB98KH18NM00 oTRjz4E9vTK8O8Xl TFPuogndzsuzkGZ3PWHf UPPrdW13Fv6hlRqnJp3g BOWcPFY3IQLhdBOqK5Cs gD8gMdJoFLZeOBWg L1LcwBOgWVhwK538JQwx TpK3HIFlqqSmQ2BzSHNn jJcpNfS5m7O9Nm5ZUn98 RZ50TZ94aRTtq4O5 jKI1Z8GgELWolhnihbdb qAY1AYTkKRUhiI43Kc8h cDacDj3tUPPyDDM7JKLp tIFhB7PqqW3kYgCf TIZqBYQnY3LaiLRnIXti L210OFkeNyE0KAAhgpEo O0AePMQdrBgvTkD8n8S2 Js6SINmkcyg7E8Lg PjwvdHI+UW66KVBiDU49 kITmfZBkf4qcfZd6ClLg TVTqLVG1zVtcLQihz7El CTVdU93mqIKze3Q7 IGNv (more content not included)... Normal [facility] Coding Summary. CD:[id number] Gh0bWw+PGhlYWQ+PE1FV DRcM61lxOVfsG2UD9oVR H4TMHYHONSQFM4HFK7wh EV3YLbiU5CvjvQt YfhvlHFuKM04CAr3RYZ3 gKpiMQwmmJ8xjHNfD1u3 JyIiUE96iE17JElyOYMn AgD3AyOfivpxzHId U2tgWcYkbKSzMer+PHRh YmxlIHdpZHRoPScxMDAl IeUceCoaWY4tDp5vJWNq LWNvbGxhcHNlOiBj o3bzBUUuFNylWC5wpBxh X6CryVK5LNFjy1j5Jr21 dHI+BKYvPFZ8uUpdLLlz y606PpLww3gtEOG0 lCIvZBpfAHH2C82su2H2 EGNaRTKpFNH2kCH6uN8q hChsbevdR6ThrJRaCtZ2 XWS7xHPifX2uaMvw azieiS3kQbk+V61IVX7U VFHKAU8GAbs3O0WdQyxn dHI+EI87PCQtDZ94eLIy xDNil3fzhVq0XtYo LVRvQJH8oOmmUYkey3Oz JCLoS74ddZErj0L6ECMi xQcxvFUvYbUxyZL4lS7q TOrtfnxeu0uldntk Dhjje5pkyd50rM71Z70d GBqdSKVwMRN3URSgRZNo lRssph5trW8lIu9+IDxj d7unb0zxtUh8HdEp PRFumnQqyNihYGC6w8Gz Ly99Z4CvyFyrj7TwVpq9 go80wGPcv0R7bWB7NYng ASSkjF4sBWheCgY3 LRLjUfWydR68fRUaRPmt Be3bnEhkeTvuUH6tQDCi eayeFUKiyV3vAWEyeJTx qZtrXG8wWTDzzerc q014KnHuVWH7CEFcvPAz A1MozC2kMfDvZOOkJFKu C1JjqCBwABhzV152KSjt VgJ5RITjzfIkP3Lp AAVbpFlvHbD9n5J3Eh6R r0QakfmcCMX6YSwkKECq AiH9KnNpUvF9Q0EsCbq2 SYOssUjnHA8fG0Gu ZFSpeccmxrihyPG0VDMi ZGDssN80eVYpRDgzHw7t b0S8x296IOGkAELyqL39 Ph0hlSkjIYXxvDSK nL3dherqk0ukgugeWzHe OKBsXPj8JMn3DXBqhCcu ZqFyXOL9IaN3XPA6dCIb xR6uvFtyyndovO7g Oyc+U09opU9gPNH5AWB3 kyqjTSFztuHoJL71BC78 G9BnCvnsbNVmfHX+PGRp zvIzaDywYB1uCwGb k6mve9TyIOixW5BpCKNf UNopVqs0UMNuUOT1lBR8 lJ9oDXRpNOwpm5T3yLE3 T4EeeaLjbs3ox9zb WUPpXSzeB09gqITsq6W2 SLOzvUG6QHZktTzlOrJx uW51Btq+ZXLfvCplq8Tl Nvawn9uvh0rmbOa8 IjMwJSIgdmFsaWduPSJ0 h0CwAr43Q64jVSujMWVc PQWsSLSbSQByzDbjyl6b pN7vDe4+PGNvbCB3 wBD2hB9vBUQfLcO0DLfi C172YvZqaKSnPmgja2sr s4josCo0YzWhSXLtyzXu aGomASL3c2GlEr31 J68dEXooDYNuWUQuQQMl BQBubQcbtq9ysS4xTk4+ GM0yc4gjpv24mH99nTM+ JQPkHEN1fWyeOUsi MSQdaD3yLUaoHvQ4NAFp FrAwiN69vBRpLRkzVw1g uDgivGyjFM7eJZGmzkzy b671VqPhi9fqUWZm cYSdGPerNMG4K33wu9T4 GNJjJUCuMNX9pWR4jX3l bGlnbjogbGVmdDsgdmVy aPxpXAzaTMfcW763 IHRvcDsnPlBhdGllbnQg PoYqXHh5Y3BgVlk1PEVj hBxiES1xdPWkYYovLq7l fGwehIpdPT4rKNZi xnjao319GjYad6azEIUz pYIjSCejDNP1B32tc0Z9 VHUoTNTrQEB6yIP1qW8d bGlnbjogbGVmdDsg zmDtcWehACqlYMfnV971 IHRvcDsnPkJpcnRoIERh oPD4DD67WD49qEMuz5S8 bYH7J7KnZCCttzqo zxlfwXX1NAIaXYDnmU12 Jr7dpDblXv6xURAtFUF5 ANQtsXKhF1SrkR7sClIe BLVgCLOoM7XodQNq VStkE625SIsvQeN0FCHc ifZhI7QyRPKpeKnlXhP8 r2F2Ry4IX6M9GB23YE12 pRGft5S9dTZ0J5Qh LTOxtszfajsxjDY9XRSb VANuxR29Zd3srLfrNq1j GKExKFL2VJGouREeA3Uf yN6jHnZsDZCgTESr X8SzgUXaYAtuP137STdj UoB7CCIuszQkD5AbVULi zQxgQaA4c0S6Kl5WAMj7 FZ67FG05bCNnu8O9 aBI5W6OfZOCpihnkcwdc tWJ8QDNfXMGdcJ36Lq0r pFvjWy3gUWYySGA4DXEe aHRsR6IykP3jZtBa CSJjVUQdI6IlzWFfMEwg B922SPhmWjQ8TXWeteKs L6HiESByoIrvQnC1s4A6 Vx6NUAPdOU52EDS6 kSW1ZV13MP72Q6CcPihl dGFibGU+PHRhYmxlIHdp ZHRoPScxMDAlJyBzdHls XJ4bBe6mBGExPIBq zPmjgSRbQsLoa6wxADDr APcgXH5ieAlwV9TtgMT4 LIRym6d0Wl53J75aW6Pr dXA+THKgpSU5jBJ0 cO9sLiSxXsF7GYmxQ365 JjOiqOCgKykno1xbd2ux fHy8RcM0ZCUbkmBztTdy OIF2c8BpOw27C53e IHdpZHRoPSIxNSUiIHZh oAkddw9qlD3jEa5+PGNv kFQ1uME8hF6mZrBkEjI0 KDkyZ531OqMksWUd Uzagb7qav9dnfJm7BeZi RBVuupGmdFxgMFS3k0Bn Gx02C9TylOfrx2WeMxf0 hu21eXYcg2Q2bPN5 X5JoBBWehuokaFGhsKxb QP1cVYOrlxexOXVchP7f UAVfK2j7FhRfTvI4YZei B8JnmlN1YQChfRYp PZutQTP8K63hk4K8EKRc GXYlHPN1jNB7lH9kvQbo bjogbGVmdDsgdmVydGlj DDlrSVhcA571YCJk nBovADJafA3nEBIcuRGo gThdBP2hJBDfujrkKuhR HOEcAQoVRZQQSO23FO04 eBZuu1U3xIZ3B7Qa MKCccoikloynbZN0BTWb KTQslX53iVUvYUtiLg2s t1K7a178ZXYkPBOpqG58 St4brHuyJEJmbXIL uM1krcnyj3msdufyMlCk NGTlIJv0XKi8RQKjcMcg DrLhDLD2UqD5BXE4wGDz wZ5okWyuqablqE8x Oyc+GDRvBscyIHn9DIie dGQ+CTHfCMR8dUxaPOgy LFGraW2dWYSyK9l4MiJo ZnR9DTatX7EvFMEw huwqLl50tJ2wEiAxVxV4 MNqaI4EvxnZ4DBKwrOKa LPbcOKJ4Q10fc2Z4SIOa TCCvTJR3lCA4rC6g bGlnbjogbGVmdDsgdmVy lDxoGZgoRIrvZ679BKKt sZwsYcFfORxcWPRwFC29 HN62oGTvc2L2lED2 J8PtWQQbuwhrurwdoHI8 YOQsZAIjtC97uLHzYDea Al9fz5Y8g130FDRrASZv rQ34Rc5gwItuWKCf bVFDrH9nsotdl2zfiwqt ZeErBVVgDLp9VBb5LQJc qQztUtDrTTD5MqD3RTB2 bOPfuB1gyPeekdbs kO5mTkz+DzIzXLgiLK28 CB66gYJme8O7hNY6Y3Va EKYfezpmazvfkBQ6PGXe HLFekW43qFYoANec In8ez3P5l765IXEsCCKy eC01Kz5fbTwwJGLebUVD dI8xpexle7gvdnacCyWj LLMkWRz2CDs2WEEp dLgwKvWbFOL4FxK4PFI3 cKCfnA1wrOxxfazouK1f Oyc+GYVzAKLjb9Kvk3Fc AC34JK74J7PaNyly dGFibGU+PHRhYmxlIHdp ZHRoPScxMDAlJyBzdHls VT8lFu6aZGKxKYKkuUxy sLQsIlIfe4hbKVDn HNvhJR3rtTyhM1PnpWK8 AMFxl2n8Nn13C09eI9Tk dXA+OCCfxHG0xOY4rR2t RqEfVtM9SPeiG244 XcIkiPChFdadk2hdn9mz aOy7KyPkYUQilvAzrTdb RIJ4o1PuYv60T46zPSjr ZHRoPSIyMCUiIHZh jAxwwb7xlU3zIl6+PGNv mKD4xLK3lO9eJwVlJfH0 UYfsP015PpUbkBYrVpae W47yO6OtwOT+PHRy Jfm7NXZfaRexXU4uyIMt GTbfPy4iZHJ3OnHhOlCy DVtnA0AmYETjtdqrwsni nHX2OCDgAUHktA84 Se0ztXiwDx4iLFLeKLF8 RIYavJMoH0OreE0mHzJn UBTdDLJiN8UmrZGzYFyo D106JBggPeF1IOBv ydFsS9DjOSCnlOlhJbF0 p1Y4Rs9OnLuhnLUeVB9g BdWlRTl4W4CxMkk5GYOv dQvoZH4ojTGkMIym St5jnYryjOlvBK5gATZo tufxb118ClSfg0byYUQr pCCuSFznPTY6C58yu9F8 FUAnMYWgLCN7dRE3 mZ6xlImcxzgllNPjhUop rmByyNgbRMwtSYxtZ144 KFTicAjxLzBRWka0P7Dt Fbg4VYAltMzjYW9i dVStEWtcOt3xbLmkbVes CQ5iTYVkichle921XdMw r0hcNFUrsCClXFeuGUV7 W10ir4R7ZDZgSLDg MLY9hRA5iC5kzOgtviic bGVmdDsgdmVydGljYWwt ZBzrY318WDQiiKorKc2T Ckl8T2BvDko0QWGh lEvnYT5gbSExFFmhOv5r gAduvPzcUN2rMVRmkejc t359DpSab2ftSBEirKBy JLqkGDS1U76xs4B5 EDKpAPEgRWG0jJQ6jQ6c bGlnbjogbGVmdDsgdmVy pTztXNyxZQnhS855RYRr cDsnPlBheWVyOjwv dGQ+JE79uf43F8KzQril Ols3NLVoSZI9lQE0eL0i FHPvTAnro4D1zDY2U8Hg lqQmfx6ho0cpXRQw ZTog (more content not included)... Normal [facility] PAP [id number] 08-15-2021 Cytology report Cyto stain Doc (Cvx/Vag) Note Invalid Interpretation Code [facility] Comment on above: Result Comment: TEST S RESULT FLAG UNITS REF RANGE LAB Clinician Provided Cytology Information Source.............[employer] No. of containers..01 ThinPrep Vial DIAGNOSIS: 01 NEGATIVE FOR INTRAEPITHELIAL LESION OR MALIGNANCY. Specimen adequacy: 01 Satisfactory for evaluation. No endocervical component is identified. Performed by: 01 Sujey Engle Coding And Reimbursement Specialist (ASCP) . 01 Note: Note 01 The [...] High,A-Abnormal,AA-Critical Abnormal Performed at: 01 [facility] [address] [place] [address] Mar Rivera MD, Performed By: #### 1 [id number] #### [facility] [address] [place] [address] HPV 16+18+31+33+35+39+45 +51+52+56+58+59+66+6 8 DNA Probe+sig amp Ql (Cvx) Negative Invalid Interpretation Code Negative [facility] Comment on above: Result Comment: This nucleic acid amplification test detects fourteen high-risk HPV types (16,18,31,33,35,39,45,51,52,56,58,59,66,68) without differentiation. Performed at: [facility] [address] [place], [place] [id number] MD Nicole Manuel Performed at: =G [facility] [id number] MD Nicole Manuel Performed By: #### 1 [id number] #### [facility] [address] [place] [address] Insulin Lvlon 08-11-2021 Insulin Qn 24.3 u[IU]/mL Invalid Interpretation Code 2.6-24.9 [facility] Comment on above: Result Comment: Perf ormed at: [facility] [id number] PhD Archie Jha Performed By: #### 1 [id number] #### [facility] [address] [place] [address] Consent for Treatmenton 07-29 Consent for Treatment [id number] #1.00CD:127 Normal [facility] Glu Fastingon 08-10-2021 Glucose [Mass/Vol] 95 mg/dL Normal 55-99 [facility] Comment on above: Performed By: #### 1 [id number] #### [facility] [address] [place] [address] Physician Orderon 08-10-2021 Physician Order [id number] 2#1.00CD:127 Normal [facility] PAP [id number] 08-09-2021 Collection Technique BRUSH-SPATULA Normal F [facility] Comment on above: Performed By: #### 1 [id number] #### [facility] [address] [place] [address] Gynecological Body Site ENDOCERVIX Normal [facility] Comment on above: Performed By: #### 1 [id number] #### [facility] [address] [place] [address] Physician Orderon 08-09-2021 Physician Order [id number] #1.00CD:127 Normal [facility] Gynecology Office/Clinic Not pratik 02-17-2019 Gynecology [...] Family History Family history is negative Normal [facility] Comment on above: Result Comment: Elec [...] Family History Family history is negative Normal [facility] Comment on above: Result Comment: Elec tronically Signed By: Shamika ISAACS, Kaley Pablo.david\Date and Time Signed: 02/17/19 12:09 EDT Vital Signs Date Time Vital Sign Value Performing Clinician Facility 07-20-2024 11:00-0500 Body mass index (BMI) [Ratio] 34.39 kg/m2 Luis Yobani DO Work Phone: [facility] 07-20-2024 11:00-0500 Body weight 85.28 kg Luis Yobani DO Work Phone: [facility] 07-20-2024 11:00-0500 Diastolic blood pressure 76 mm[Hg] Luis Yobani DO Work Phone: [facility] 07-20-2024 11:00-0500 Systolic blood pressure 122 mm[Hg] Luis Yobani DO Work Phone: [facility] 06-22-2024 14:31-0500 Body mass index (BMI) [Ratio] 34.2 kg/m2 Luis Yobani DO Work Phone: [facility] 06-22-2024 14:31-0500 Body weight 84.82 kg Luis Yobani DO Work Phone: [facility] 06-22-2024 14:31-0500 Diastolic blood pressure 78 mm[Hg] Luis Yobani DO Work Phone: [facility] 06-22-2024 14:31-0500 Systolic blood pressure 124 mm[Hg] Luis Yobani DO Work Phone: [facility] 06-15-2024 10:27-0500 Body weight 84.82 kg Hugo Rodriguez MD Work Phone: [facility] 06-15-2024 10:27-0500 Diastolic blood pressure 88 mm[Hg] Hugo Rodriguez MD Work Phone: [facility] 06-15-2024 10:27-0500 Heart rate 99 /min Hugo Rodriguez MD Work Phone: [facility] 06-15-2024 10:27-0500 Respiratory rate 18 /min Hugo Rodriguez MD Work Phone: [facility] 06-15-2024 10:27-0500 Systolic blood pressure 137 mm[Hg] Hugo Rodriguez MD Work Phone: [facility] 05-25-2024 11:46-0400 Body mass index (BMI) [Ratio] 33.84 kg/m2 Luis Yobani DO Work Phone: [facility] 05-25-2024 11:46-0400 Body weight 83.92 kg Luis Yobani DO Work Phone: [facility] 05-25-2024 11:46-0400 Diastolic blood pressure 74 mm[Hg] Luis Yobani DO Work Phone: [facility] 05-25-2024 11:46-0400 Systolic blood pressure 118 mm[Hg] Luis Yobani DO Work Phone: [facility] 04-27-2024 10:35-0400 Body mass index (BMI) [Ratio] 33.75 kg/m2 Luis Yobani DO Work Phone: [facility] 04-27-2024 10:35-0400 Body weight 83.69 kg Luis Yobani DO Work Phone: [facility] 04-27-2024 10:35-0400 Diastolic blood pressure 76 mm[Hg] Luis Yobani DO Work Phone: [facility] 04-27-2024 10:35-0400 Systolic blood pressure 122 mm[Hg] Luis Yobani DO Work Phone: [facility] 03-27-2024 10:27-0400 Body mass index (BMI) [Ratio] 34.53 kg/m2 [facility] 03-27-2024 10:27-0400 Body weight 85.64 kg [facility] 03-27-2024 10:27-0400 Diastolic blood pressure 70 mm[Hg] [facility] 03-27-2024 10:27-0400 Systolic blood pressure 120 mm[Hg] [facility] 01-02-2024 09:15-0400 Body height 157.48 cm [facility] [facility] 01-02-2024 09:15-0400 Body mass index (BMI) [Ratio] 33.9 kg/m2 [facility] 01-02-2024 09:15-0400 Body temperature 100.2 [degF] [facility] 01-02-2024 09:15-0400 Body weight 84.08 kg [facility] 01-02-2024 09:15-0400 Heart rate 115 /min [facility] 01-02-2024 09:15-0400 Respiratory rate 18 /min [facility] 01-02-2024 09:15-0400 SaO2% (BldA) [Mass fraction] 99 % [facility] Encounters Encounter Date Encounter Type Care Provider Facility Start: 08-05-2024 End: 08-05-2024 Clinisync Result Encounter Luis Yobani DO Work Phone: [facility] Unsolicited Start: 08-05-2024 End: 08-05-2024 Clinisync Result Encounter Luis Yobani DO Work Phone: [facility] Unsolicited Start: 07-20-2024 End: 07-20-2024 Bamboo flowsheet Luis Yobani DO Work Phone: [facility] Start: 07-20-2024 End: 07-20-2024 Bamboo flowsheet Luis Yobani DO Work Phone: [facility] Start: 07-20-2024 End: 07-20-2024 flow sheet Luis Yobani DO Work Phone: [facility] Comment on above: 26 weeks gestation o f ; Diabetes mellitus screening; Second trimester ; PCOS (polycystic ovarian syndrome); resulting from in vitro fertilization, antepartum; Gestational diabetes mellitus (GDM), antepartum, gestational diabetes method of control unspecified; Elevated glucose tolerance test Start: 07-20-2024 End: 07-20-2024 ambulatory LUIS YOBANI Not Available Start: 06-22-2024 End: 06-22-2024 Bamboo flowsheet Luis [...] Hugo Rodriguez MD Work Phone: [facility] [place] Comment on above: 21 weeks gestation o f (Primary Dx); Chronic hypertension affecting ; In vitro fertilization Start: 06-15-2024 End: 06-15-2024 ambulatory [facility] Start: 05-28-2024 End: 05-30-2024 Clinisync Result Encounter Luis Yobani DO Work Phone: [facility] Unsolicited Start: 05-28-2024 End: 05-30-2024 Clinisync Result Encounter Luis Yobani DO Work Phone: [facility] Unsolicited Start: 05-27-2024 End: 05-27-2024 Chart abstracting Hugo Rodriguez MD Work Phone: [facility] Start: 05-25-2024 End: 05-25-2024 Bamboo flowsheet Luis [...] YOBANI Not Available Start: 04-27-2024 End: 04-27-2024 Bamboo flowsheet Luis Yobani DO Work Phone: [facility] Start: 04-27-2024 End: 04-27-2024 Bamboo flowsheet Luis Yobani DO Work Phone: [facility] Start: 04-27-2024 End: 04-27-2024 ambulatory LUIS YOBANI Not Available Start: 04-27-2024 End: 04-27-2024 flow sheet Luis Yobani DO Work Phone: [facility] Comment on above: 14 weeks gestation o f ; Second trimester ; Encounter for screening for cervical length Start: 04-08-2024 End: 04-08-2024 Clinisync Result Encounter Luis Yobani DO Work Phone: [facility] Unsolicited Start: 04-08-2024 End: 04-08-2024 Clinisync Result Encounter Luis Yobani DO Work Phone: [facility] Unsolicited Start: 03-27-2024 End: 03-27-2024 Office outpatient visit 5 minutes [facility] Y[facility]ani Nurse [facility] Comment on above: GA: 10w1d Start: 03-27-2024 End: 03-27-2024 ambulatory LUIS HILTON Not Available Start: 01-02-2024 End: 01-02-2024 ambulatory JOHNNY FERNANDEZ Not Available Start: 01-02-2024 End: 01-02-2024 ambulatory [facility] Work Phone: Start: 01-02-2024 End: 01-02-2024 Patient encounter procedure [facility] Work Phone: Start: 11-27-2023 End: 11-27-2023 ambulatory LUIS HILTON Not Available Start: 07-26-2022 End: 07-27-[address] LUIS HILTON . Facility: Start: 07-12-2022 End: 07-12-[address] LUIS HILTON . Facility: Start: 06-28-2022 End: 06-29-[address] LUIS HILTON . Facility: Start: 05-31-2022 End: 06-27-[address] LUIS HILTON . Facility:[facility] Start: 05-17-2022 End: 05-18-[address] LUIS HILTON . Facility: Start: 04-28-2022 End: 04-29-[address] LUIS HILTON . Facility: Start: 04-04-2022 End: 04-05-[address] LUIS HILTON . Facility: Procedures Date Procedure Procedure Detail Performing Clinician Start: 08-05-2024 ALL CBC WITH AUTO DIFF Luis Yobani DO Work Phone: Start: 06-22-2024 Urnls dip stick/tabl et rgnt non-auto w/o micrscp Luis Yobani DO Work Phone: Start: 05-28-2024 AFP, SERUM, OPEN SPI NA BIFIDA Luis Yobani DO Work Phone: Start: 05-25-2024 IGP,APTIMA HPV,AGE GDLN Luis Yobani DO Work Phone: Start: 05-25-2024 Microscopic observat ion [Identifier] in Cervix by Cyto stain Hugo Rodriguez MD Work Phone: Start: 04-27-2024 Urnls dip stick/tabl et rgnt non-auto w/o micrscp Luis Yobani DO Work Phone: Start: 04-08-2024 Blood count complete automated Not In System Ref Prov Start: 04-08-2024 Syphilis test non-treponemal antibody qual Not In System Ref Prov Start: 04-08-2024 TYPE AND SCREEN Not In System Ref Prov Start: 04-08-2024 ALL CBC WITH AUTO DIFF Luis Yobani DO Work Phone: Start: 03-27-2024 Urnls dip stick/tabl et rgnt non-auto w/o micrscp Luis Yobani DO Work Phone: Plan of Treatment Date Care Activity Detail Author Start: 05-25-2027 Screening for malign ant neoplasm of cervix Pap Smear [facility] Start: 06-15-2025 Tobacco Screening Tobacco Screening [facility] Start: 08-12-2024 End: 08-12-2024 Patient encounter procedure 08/12/2024 11:10 AM EST Routine [facility] [address] [place] [id number] Luis Hilton, DO [address] [place] [address] [facility] Start: 07-20-2024 End: 07-20-2025 CBC panel - Blood by Automated count CBC Lab Routine 26 weeks gestation of Diabetes mellitus screening Expected: 07/20/2024 (Approximate), Expires: 07/20/2025 [facility] Work Phone: Comment on above: Expected: 07/20/2024 (Approximate), Expires: 07/20/2025 Start: 07-20-2024 End: 07-20-2025 Measurement of glucose 1 hour after glucose challenge for glucose tolerance test Glucose tolerance, 1 hour Lab Routine 26 weeks gestation of Diabetes mellitus screening Expected: 07/20/2024 (Approximate), Expires: 07/20/2025 [facility] Comment on above: Expected: 07/20/2024 (Approximate), Expires: 07/20/2025 Start: 07-20-2024 End: 07-20-2025 US for US OB SCAN FOR GROWTH Imaging Routine PCOS (polycystic ovarian syndrome) resulting from in vitro fertilization, antepartum Expected: 07/20/2024 (Approximate), Expires: 07/20/2025 [facility] Comment on above: Expected: 07/20/2024 (Approximate), Expires: 07/20/2025 Start: 07-20-2024 End: 07-20-2024 Patient encounter procedure [facility] Comment on above: 26 weeks gestation o f ; Diabetes mellitus screening Start: 06-22-2024 End: 06-22-2025 ECG 12 lead ECG 12 lead ECG Routine Personal history of cardiac murmur Expected: 06/22/2024 (Approximate), Expires: 06/22/2025 [facility] Work Phone: Comment on above: Expected: 06/22/2024 (Approximate), Expires: 06/22/2025 Start: 06-22-2024 End: 06-22-2024 Patient encounter procedure [facility] Comment on above: Arrived Start: 06-15-2024 End: 06-15-2024 Patient encounter procedure [facility] Start: 05-25-2024 End: 11-23-2024 Alpha fetoprotein, maternal Alpha fetoprotein, maternal Lab Routine Second trimester Expected: 05/25/2024 (Approximate), Expires: 11/23/2024 [facility] Comment on above: Expected: 05/25/2024 (Approximate), Expires: 11/23/2024 Start: 05-25-2024 End: 05-25-2024 Patient encounter procedure [facility] Comment on above: Arrived Start: 05-05-2024 End: 05-05-2024 Professional / ancillary services management 05/05/2024 2:30 PM EDT Ancillary Procedure [facility] [address] [place] [id number] [facility] Start: 04-27-2024 End: 04-27-2025 US Pelvis transvaginal US OB transvaginal Imaging Routine Encounter for screening for cervical length Expected: 04/27/2024 (Approximate), Expires: 04/27/2025 [facility] Work Phone: Comment on above: Expected: 04/27/2024 (Approximate), Expires: 04/27/2025 Start: 04-27-2024 End: 04-27-2024 Patient encounter procedure 04/27/2024 10:20 AM EDT Routine [facility] [address] [place] [id number] Luis Hilton, DO [address] [place] [address] [facility] Start: 03-29-2024 COVID-19 Vaccine ( season) COVID-19 Vaccine () [facility] Start: 03-29-2024 Influenza vaccination N [facility] Start: 03-27-2024 End: 03-27-2025 ABO/Rh ABO/Rh Lab Routine Missed menses Expected: 03/27/2024 (Approximate), Expires: 03/27/2025 [facility] Comment on above: Expected: 03/27/2024 (Approximate), Expires: 03/27/2025 Start: 03-27-2024 End: 03-27-2025 Blood type and Indirect antibody screen panel - Blood Type and screen Lab Routine Missed menses Expected: 03/27/2024 (Approximate), Expires: 03/27/2025 [facility] Work Phone: Comment on above: Expected: 03/27/2024 (Approximate), Expires: 03/27/2025 Start: 03-27-2024 End: 03-27-2025 US Pelvis transvaginal US OB transvaginal Imaging Routine Missed menses Expected: 03/27/2024 (Approximate), Expires: 03/27/2025 [facility] Comment on above: Expected: 03/27/2024 (Approximate), Expires: 03/27/2025 Start: 2020 Screening for malign ant neoplasm of cervix Pap Smear [facility] Start: 2018 DTaP,Tdap and Td Vaccines (1 - Tdap) DTaP,Tdap and Td Vaccines (1 - Tdap) [facility] Start: 2017 Adult BMI Screening Adult BMI Screen ing [facility] Start: 2011 Depression Screening Depression Scre ening [facility] Start: 2011 Tobacco Screening Tobacco Screening [facility] Start: 1999 Screening for Chlamy leoncio trachomatis Chlamydia Screening [facility] Bacteria identified in Urine by Culture Urine culture Microbiology Routine Missed menses Ordered: 03/27/2024 [facility] Comment on above: Ordered: 03/27/2024 CBC W Auto Different ial panel - Blood CBC and differential Lab Routine Missed menses Ordered: 03/27/2024 [facility] Comment on above: Ordered: 03/27/2024 CHLAMYDIA TRACHOMATI S (GENITO/STI) CHLAMYDIA TRACHOMATIS (GENITO/STI) Lab Routine STD exposure Ordered: 05/25/2024 [facility] Comment on above: Ordered: 05/25/2024 Cytology Cervical or vaginal smear or scraping study Pap Smear Pathology and Cytology Routine Well woman exam with routine gynecological exam Ordered: 05/25/2024 [facility] Work Phone: Comment on above: Ordered: 05/25/2024 Hemoglobin A1c/Hemoglobin.total in Blood Hemoglobin A1c Lab Routine Missed menses Ordered: 03/27/2024 [facility] Comment on above: Ordered: 03/27/2024 Hepatitis B virus surface Ag [Presence] in Serum or Plasma by Immunoassay Hepatitis B surface antigen Lab Routine Missed menses Ordered: 03/27/2024 [facility] Comment on above: Ordered: 03/27/2024 Hepatitis C virus Ab [Presence] in Serum or Plasma by Immunoassay Hepatitis C antibody Lab Routine Missed menses Ordered: 03/27/2024 [facility] Comment on above: Ordered: 03/27/2024 HIV-1/HIV-2 antigen/antibody combination immunoassay HIV-1 and HIV-2 antibodies Lab Routine Missed menses Ordered: 03/27/2024 [facility] Comment on above: Ordered: 03/27/2024 Neisseria gonorrhoea e DNA [Presence] in Unspecified specimen by BUCK with probe detection Neisseria gonorrhea DNA probe, direct Lab Routine STD exposure Ordered: 05/25/2024 [facility] Comment on above: Ordered: 05/25/2024 Reagin Ab [Presence] in Serum by RPR RPR Lab Routine Missed menses Ordered: 03/27/2024 [facility] Comment on above: Ordered: 03/27/2024 Rubella antibody, IgG Rubella an tibody, IgG Lab Routine Missed menses Ordered: 03/27/2024 [facility] Comment on above: Ordered: 03/27/2024 SURESWAB(R) ADVANCED VAGINITIS PLUS, TMA SURESWAB(R) ADVANCED VAGINITIS PLUS, TMA Pathology and Cytology Routine Vaginal discharge Ordered: 05/25/2024 [facility] Comment on above: Ordered: 05/25/2024 Payers Date Payer Category Payer Commercial Managed C are - [employer] [id number] 2023 [facility] er [id number] 2023 Unknown [id number] 2021 Private Health Insurance [id number] 2021 Unknown [id number]. [id number] 2021 Unknown [id number] 1999 Unknown [id number] 2.16.840.1.466278.3.579.2. 593 1999 Unknown [id number] 2.16.840.1.425749.3.579.2. 593 1999 Unknown [id number] 2.16.840.1.585435.3.579.2. 593 1999 Unknown [id number] 2.16.840.1.784588.3.579.2. 593 1999 Unknown [id number] 2.16.840.1.119439.3.579.2. 593 1999 Unknown [id number] 2.16.840.1.952374.3.579.2. 593 1999 Unknown [id number] 2.16.840.1.766558.3.579.2. 593 1999 Unknown [id number] 2.16.840.1.513229.3.579.2. 1286 1999 Unknown [id number] 2.16.840.1.005677.3.579.2. 1286 1999 Unknown [id number] 2.16.840.1.365603.3.579.2. 1259 1999 Unknown [id number] 2.16.840.1.191384.3.579.2. 1259 1999 Unknown [id number] 2.16.840.1.786297.3.579.2. 1259 1999 Unknown [id number] 2.16.840.1.773327.3.579.2. 1259 1999 Unknown [id number] 2.16.840.1.755551.3.579.2. 1259 1999 Unknown [id number] 2.16.840.1.428657.3.579.2. 1259 1999 Unknown [id number] 2.16.840.1.128272.3.579.2. 1259 1959 Private Health Insurance [id number] 1959 Unknown [id number] Social History Date Type Detail Facility Tobacco smoking stat [facility] Unknown if ever smoked [facility] Work Phone: Start: 1999 Sex Assigned At Female F [facility] Start: 01-02-2024 End: 05-27-2024 Tobacco smoking status MAIS Never smoked tobacco [facility] Start: 01-02-2024 End: 05-27-2024 Tobacco use and exposure Smokeless tobacco non-user [facility] Start: 04-27-2024 End: 05-25-2024 Alcoholic beverage intake Ex-drinker (finding) [facility] Start: 01-02-2024 End: 06-15-2024 History of Social function [facility] Start: 01-02-2024 End: 06-15-2024 Tobacco use panel [facility] Start: 01-29-2024 [facility] Start: 11-26-2023 Gender identity Identifies as female gender (finding) [facility] Start: 05-27-2024 End: 06-15-2024 Alcoholic beverage intake Lifetime non-drinker (finding) [facility] Start: 1999 Sex assigned at Not on file [facility] Start: 05-26-2024 Sex Female (finding) [facility] Medical Equipment Procedure Code Equipment Code Equipment Origin al Text Equipment Identifier Dates 1 strip by In Vi tro route Daily Use in the morning prior to breakfast, 1 hour after each meal for a total of 4times daily. [id number] Start: 07-20-2024 End: 08-19-2024 1 each by In Vit ro route Daily Use to check FSBS four times daily [id number] Start: 07-20-2024 End: 08-19-2024 Goals Date Patient Goal Desired Activity /State Personal health goal Clinical Notes 03-27-2024 to 07-20-2024 Lissa Garcia MA - 07/20/2024 10:20 AM Gautam Peter LPN - 06/22/2024 1:50 PM Natalie Rodriguez MD - 06/15/2024 11:00 AM Shahzad Betancourt RN - 06/15/2024 11:00 AM EST Note Date & Type Note Facility 07-20-2024 History of Present illness Narrative Reason for Appointment: Patient ID: Amy Singleton is a 24 y.o. female who presents for No chief complaint on file. Patient presents today for Return OB appointment. MEDICATIONS Current Outpatient Medications Medication Instructions acyclovir (ZOVIRAX) 800 mg, Oral, 2 times daily azithromycin (Zithromax Z-Jam) 250 MG tablet As directed [employer] misc 1 each, [...] mg, Oral, Daily ALLERGIES Allergies Allergen Reactions Starke Flavor [Starke Oil] Latex Hives, Itching, Rash and Swelling PROBLEMS Active Ambulatory Problems Diagnosis Date Noted 14 weeks gestation of 04/27/2024 Second trimester 04/27/2024 26 weeks gestation of 07/20/2024 Resolved Ambulatory Problems Diagnosis Date Noted No [...] SYSTEMS Review of Systems: Review of Systems OBJECTIVE Objective: OBGyn Exam Vitals: Estimated body mass index is 34.2 kg/m as calculated from the following: Height as of 01/02/24: 5' 2 . Weight as of 06/22/24: 187 lb. BP: No LMP recorded. Patient is . ASSESSMENT & PLAN ICD-10-CM 1. 26 weeks gestation of Z3A.26 POCT urinalysis dipstick manually resulted CBC Glucose tolerance, 1 hour CBC Glucose tolerance, 1 hour 2. Diabetes mellitus screening Z13.1 CBC Glucose tolerance, 1 hour CBC Glucose tolerance, 1 hour Return OB: Patient presents today for a routine obstetrics appointment. Patient is currently 26w4d . Patient states she is doing well but has complaints of being tired due to current . Patient has verbalizes frequent movement. labor precautions was discussed/given and patient was instructed to perform kick counts three times a day. Orders Placed This Encounter Procedures CBC Glucose tolerance, 1 hour POCT urinalysis dipstick manually resulted Follow Up: Patient is to return to office in 2 week for routine OB appointment. Documented by Lissa Garcia MA on behalf of: Luis Hilton DO documented in this encounter [facility] 06-22-2024 History of Present illness Narrative Reason for Appointment: Patient ID: [...] mg, Oral, Daily ALLERGIES Allergies Allergen Reactions Starke Flavor [Starke Oil] Latex Hives, Itching, Rash and Swelling [...] a Estimated Date of Delivery: 10/22/24. Reviewed M appointment with patient and informed patient that with history of heart murmur EKG will be ordered. Patient to return to clinic in 4 weeks for routine OB appointment. Documented by Esperanza Peter LPN on behalf of: Luis Hilton DO documented in this encounter [facility] 06-15-2024 History of Present illness Narrative [facility] [...] Allergies: Allergies Allergen Reactions Latex, Natural Rubber Starke Meds: Prior to Admission medications Medication Sig [...] other morbidities. Based on the available evidence, [facility] recommends treatment with antihypertensive therapy for mild [...] preeclampsia prevention as is recommended by the [place] [employer] Committee Opinion No. 743. [...] Hugo Rodriguez MD, FACOG (she/hers) [facility] [address] [facility] [address] [place] [address] This document was created with [employer] technology. Though I make every effort to review the dictation as it is transcribed, on occasion the spoken word can be misinterpreted by the technology leading to inappropriate words, phrases, or sentences. This note is addressed to the requesting provider as a consultation for clinical guidance. Specific medical abbreviations are occasionally used and those are generally approved by the [place]?Board of?Obstetrics and?Gynecology?as well as?Kenzie croft abbreviations. The above plan of care was based solely on the diagnoses for which a consultation was requested. ?More frequent testing may be indicated based on her other medical/obstetrical conditions. The management of other or medical conditions is beyond the scope of requested consultation and will continue to be followed by the primary certified ethical hacker or primary care provider. Note to patient: [...] IVF Have you been seen here at [facility] in a previous ? N/a Recent ER visits or hospitalizations? no Bring blood sugar log or meter with you today? (Please bring them with you for every visit at [facility]) no Flu vaccine (May-September)? no Any concerns that you would like me to mention to the provider today? no documented in this encounter [facility] 05-25-2024 History of Present illness Narrative Reason for Appointment: Patient ID: [...] mg, Oral, Daily ALLERGIES Allergies Allergen Reactions Starke Flavor [Starke Oil] Latex Hives, Itching, Rash and Swelling [...] nursing note reviewed. Exam conducted with a can solderer present. Vitals: Estimated body mass index is 33.84 kg/m as calculated from the following: Height as of 01/02/24: 5' 2 . Weight as of this [...] Luis Hilton DO documented in this encounter [facility] 04-27-2024 History of Present illness Narrative Reason for Appointment: Patient ID: [...] Vitamin (multivitamin) tablet 1 tablet, Oral, Daily ondansetron ODT (ZOFRAN-ODT) 4 mg, Oral, Every 6 hours PRN predniSONE (DELTASONE) 5 mg, Oral, Daily ALLERGIES Allergies Allergen Reactions Starke Flavor [Starke Oil] Latex Hives, Itching, Rash and Swelling [...] Constitutional: Appearance: Normal appearance. She is well-developed. Cardiovascular: Rate and Rhythm: Normal rate and [...] nursing note reviewed. Exam conducted with a can solderer present. Vitals: Estimated body mass index is 33.75 kg/m as calculated from the following: Height as of 01/02/24: 5' 2 . Weight as of this encounter: 184 lb 8 oz. BP: 122/76 No LMP recorded. Patient is . ASSESSMENT & PLAN ICD-10-CM 1. 14 weeks gestation of Z3A.14 POCT urinalysis dipstick manually resulted 2. Second trimester Z34.92 POCT urinalysis dipstick manually resulted Patient presents today for a routine obstetrics appointment. Patient is currently 14w4d with a Estimated Date of Delivery: 10/22/24. Advised patient to take daily Aspirin 81mg daily with IVF . Patient to also have [facility] referral for IVF and Level II ultrasound. New OB: Patient presents today for 1st time obstetrics appointment with provider. Patient is currently 14w4d . Patients history has been reviewed in great detail including any potential risks. Patient stated she currently has no complaints. Expectations throughout regarding labs, ultrasounds, and appointments have been discussed with the patient in detail. It was reiterated that the patient is to drink 6-8 glasses of water a day, eat 6 small meals a day, do not consume raw or undercooked meat, and stay away from [facility]. Patient has been consulted regarding any further do's and don'ts of . Patient voiced understanding and all questions and concerns were answered. Orders Placed This Encounter Procedures POCT urinalysis dipstick manually resulted Follow Up: Patient is to return in 4 weeks for routine OB appointment. Documented by Esperanza Peter LPN on behalf of: Luis Hilton DO documented in this encounter [facility] 03-27-2024 History of Present illness Narrative Reason for Appointment: Patient ID: Amy Singleton is a 23 y.o. female who presents for No chief complaint on file. Patient presents today for a Nurse OB Intake appointment. Patient is 10w1d with a Estimated Date of Delivery: 10/22/24 OB History Para Term AB Living 1 0 0 0 0 0 SAB IAB Ectopic Multiple Live Births 0 0 0 0 0 # Outcome Date GA Lbr Adama/2nd Weight Sex Type Anes PTL Lv 1 Current Current Medications: has a current medication list which includes the following prescription(s): acyclovir, bd sharps container home, estradiol, ibuprofen, labetalol, magnesium oxide, metformin, multivitamin, and progesterone. Medical History: Active Ambulatory Problems Diagnosis Date Noted No Active Ambulatory Problems Resolved Ambulatory Problems Diagnosis Date Noted No Resolved Ambulatory Problems Past Medical History: Diagnosis Date Female infertility Hormone disorder Hypertension (CMS/HCC) Ovarian cyst Polycystic ovary syndrome Family History Problem Relation Name Age of Onset Diabetes Father [place] Heart failure Father [place] Heart failure Father's Brother A baby- hole in heart resulted in Social History Tobacco Use Smoking status: Never Smokeless tobacco: Never Substance Use Topics Alcohol use: Not Currently Drug use: Never Past Surgical History: Procedure Laterality Date TONSILLECTOMY Allergies Allergen Reactions Starke Flavor [Starke Oil] Latex Hives, Itching, Rash and Swelling Vitals: Estimated body mass index is 34.53 kg/m as calculated from the following: Height as of 01/02/24: 5' 2 . Weight as of this encounter: 188 lb 12.8 oz. BP: 120/70 No LMP recorded. Patient is . Assessment/Plan Diagnoses and all orders for this visit: Missed menses - Type and screen; Future - ABO/Rh; Future - CBC and differential - Hemoglobin A1c - RPR - Rubella antibody, IgG - Hepatitis B surface antigen - Hepatitis C antibody - HIV-1 and HIV-2 antibodies - Urine culture - US OB transvaginal; Future - POCT , urine manually resulted - POCT urinalysis dipstick manually resulted Nurse Note: OB Intake: Patient presents today for first OB visit. Patients history has been reviewed in great detail including any potential risks. Patient signed consent forms and patient desires testing in both trimesters. Patient currently has no complaints and has been advised to drink 6-8 glasses of water a day, eat no raw or undercooked meat, and stay away from [facility]. Patient has also been advised to not change litter boxes and eat 6 small meals a day. Patient has been consulted regarding the do's and don'ts of . Patient was given labs and all questions and concerns were answered. Follow Up: Patient is to return in 4 weeks for routine OB appointment. Follow Up: Patient is to have labs drawn at directed and return to office for initial OB appointment with provider. Patient may call office as needed with any concerns or questions. Nurse Visit Completed by: Jo-Ann Motta LPN documented in this encounter [facility] Evaluation note No assessment inform ation available [facility] Work Phone: Evaluation note Diagnosis Well woman exam with routine gynecological exam Routine gynecological examination Second trimester state, incidental Vaginal discharge Leukorrhea, not specified as infective STD exposure documented [facility] this encounter [facility]* Diagnosis 21 weeks gestation of - Primary Chronic hypertension affecting In vitro fertilization Encounter for assisted reproductive fertility procedure cycle [facility] Diagnosis Second trimester state, incidental 22 weeks gestation of Personal history of cardiac murmur Personal history of other diseases of circulatory system documented in this encounter [facility]* Diagnosis Missed menses documented in this [facility]* Diagnosis 14 weeks gestation of Second trimester state, incidental Encounter for screening for cervical length documented in this encounter [facility]* Diagnosis 26 weeks gestation of Diabetes mellitus screening Screening for diabetes mellitus Second trimester state, incidental PCOS (polycystic ovarian syndrome) Polycystic ovaries resulting from in vitro fertilization, antepartum Gestational diabetes mellitus (GDM), antepartum, gestational diabetes method of control unspecified Elevated glucose tolerance test Impaired glucose tolerance test documented in this encounter [facility] HealthcareInstructionsNot on filedocumented in this encounterProJohn [facility] SystemInstructionsNot on filedocumented in this encounterProC[facility] SystemInstructions* Attachments The following attachments cannot be sent through Care Everywhere. * Preeclampsia (Bengali) [facility] Summary Purpose Family History Relationship Condition Age at Onset Recorded Date/T yosi family member Unknown Heart disease Unknown Advance Directives Advance Directive Response Recorded Date/ Time Advance Directives No January 01 4 9:07am Chief Complaint and Reason for Visit Chief Complaint Congestion Additional Source Comments INFORMATION SOURCE (unrecogn ized section and content) DATE CREATED AUTHOR 03/06/2019 [facility] DATE CREATED AUTHOR AUTHOR'S ORGANIZ ATION 12/21/2021 [facility] DATE CREATED AUTHOR AUTHOR'S ORGANIZ ATION 12/01/2022 [facility] DATE CREATED AUTHOR AUTHOR'S ORGANIZ ATION 06/17/2024 [facility] DATE CREATED AUTHOR AUTHOR'S ORGANIZ ATION 07/22/2024 [facility] Care Teams (unrecognized sec tion and content) Team Status: Active Member Role Status Dates Damon Stover DO Primary Care Provider Active Team Status: Inactive Member Role Status Dates Damon Stover DO Primary Care Provider Active Start: January 02, 2024 End: January 02, 2024 Teresa Sanchez APRN Attending Provider Active S tart: January 02, 2024 End: January 02, 2024 Buyer Intern Relationship Specialty Start Date End Date Kayce Grant MD [address] [facility] [phone] PCP - General Family Medicine 11/27/23 Buyer Intern Relationship Specialty Start Date End Date Kayce Grant MD [address] [facility] [phone] PCP - General Family Medicine 11/27/23 Buyer Intern Relationship Specialty Start Date End Date Kayce Grant MD [address] [facility] [phone] PCP - General Family Medicine 11/27/23 Buyer Intern Relationship Specialty Start Date End Date Kayce Grant MD [address] [facility] [phone] PCP - General Family Medicine 11/27/23 Buyer Intern Relationship Specialty Start Date End Date Kayce Grant MD [address] [facility] [phone] PCP - General Family Medicine 11/27/23 Buyer Intern Relationship Specialty Start Date End Date Kayce Grant MD [address] [facility] [phone] PCP - General Family Medicine 11/27/23 Buyer Intern Relationship Specialty Start Date End Date Kayce rGant MD [address] [facility] [phone] PCP - General Family Medicine 11/27/23 Buyer Intern Relationship Specialty Start Date End Date Kayce Grant MD [address] [facility] [phone] PCP - General Family Medicine 11/27/23 Buyer Intern Relationship Specialty Start Date End Date Kayce Grant MD [address] [facility] [phone] PCP - General Family Medicine 11/27/23 Buyer Intern Relationship Specialty Start Date End Date Kayce Grant MD [address] [facility] [phone] PCP - General Family Medicine 11/27/23 Goals (unrecognized section and content) Goals may be documented in a n alternate sectionNot on filedocumented as of this encounterNot on filedocumented as of this encounterNot on filedocumented as of this encounter Reason for Visit (unrecogniz ed section and content) Reason Comments Routine Visit Well Women Visit STI Screening Reason Comments Hypertension IVF Reason Comments Routine Visit Reason Comments Amenorrhea Reason Comments Routine Visit Pt complains of h aving left side pain when baby lays on that side. FOR RECORDS PERTAINING TO PATIENTS WHO ARE [...] BE BASED ON THE PRIMARY CLINICAL RECORDS. [employer] provides no warranty or guarantee of the accuracy or completeness of information in this document.
== END 2024-08-12 16:03 | disposition home or self-care (01) ==
LOC: FBCO 08:11
PROVIDERS: PCP Family Medicine; Visit Provider Obstetrics & Gynecology
DX: O24.410 Gestational diabetes mellitus in pregnancy, diet controlled (principal)
CPT/HCPCS: G0108

== ENCOUNTER 2024-08-12 09:24 | Outpatient (OUT) | payer OTHER, BC, SELFPAY ==
--- NOTE | 2024-08-12 09:26 | CA_ITS ---
Patient Name: ANNA MARIO MR#: [id number] : 2000 Exam Date: 08/12/2024 Ordering Doctor: DR Immanuel Hilton . ECHOCARDIOGRAM REPORT PROCEDURE: CA ECHO DOPPLER COMPLETE INDICATIONS: Cardiac murmur, 30 weeks , hypertension COMPARISON: None. DESCRIPTION: COMPLETE ECHOCARDIOGRAM Real-time transthoracic echocardiography with 2D, M-mode, spectral and color flow Doppler performed. QUALITY: Technical quality was good. LEFT VENTRICLE: Normal chamber size. Normal left ventricular wall thickness. Normal systolic function. LV EF: Normal left ventricular ejection fraction, (55-60%). DIASTOLIC: Normal diastolic function. ATRIAL SEPTUM: LEFT ATRIUM: Normal chamber size. RIGHT ATRIUM: Normal chamber size. RIGHT VENTRICLE: Normal chamber size. Normal right ventricular systolic function. TRICUSPID VALVE: Normal mobility and thickness. No stenosis with trivial regurgitation. No evidence of pulmonary hypertension. RVSP 34 mmHg MITRAL VALVE: Normal mobility and thickness. No evidence of mitral valve stenosis. There is no mitral annular calcification. No mitral regurgitation. AORTIC VALVE: Normal trileaflet appearance. No visible sclerosis. Normal leaflet mobility. No evidence of aortic valve stenosis. No aortic regurgitation. AORTIC ROOT: Normal diameter and appearance. PULMONIC VALVE: Normal thickness and mobility. No stenosis. No regurgitation. PERICARDIUM: No evidence of pericardial effusion. IVC: Collapses with inspirations. PLEURA: CONCLUSION: 1. Normal ventricular size and systolic function. LVEF is 55-60%. 2. Normal diastolic function. 3. No significant valvular dysfunction. 4. Normal right sided pressures. Adult Echocardiography Procedure Report Left Ventricle LVEDD (3.7 - 5.6 cm): 4.97 cm LVESD (2.2 - 4.0 cm): 3.61 cm LVIVS thickness (0.6 - 1.2 cm): 0.59 cm LVPW thickness (0.5 - 1.0 cm): 0.91 cm e': 0.16 m/s E - e': 4.96 LVOT Max Gradient: 3.36 mm[Hg] LVOT Area (cm2): 0.92 m/s Peak Velocity (LVOT): 0.92 m/s LVOT Diameter 2.32 cm Left Atrium LA Volume Index (2D A2C): 20.78 ml/m2 Left Atrium Systolic Dimension: 2.75 cm Mitral Valve MV E to A Ratio: 1.57 Mitral Valve A-Wave Peak Velocity: 0.51 m/s Mitral Valve E-Wave Peak Velocity: 0.80 m/s Right Ventricle Aorta AO Root Diam: 3.15 cm Aortic Valve AoV Area (Peak Collins): 2.69 cm2, 2.69 cm2 Peak Velocity(Antegrade Flow): 1.44 m/s Peak Gradient(Antegrade Flow): 8.26 mm[Hg] Tricuspid Valve Peak Velocity (Regurgitant Flow): 2.78 m/s Pulmonic Valve Mean Gradient: 2.40 mm[Hg] Mean Velocity: 0.70 m/s Peak Velocity: 1.14 m/s, 1.15 m/s Peak Gradient: 5.33 mm[Hg], 5.20 mm[Hg] Right Atrium Right Atrium Systolic Pressure: 28.78 ml, 28.78 ml Dictated by: Brant Mckenzie M.D. on 08/15/2024 at 14:57 Approved by: Brant Mckenzie M.D. on 08/15/2024 at 15:07
== END 2024-08-12 09:25 | disposition home or self-care (01) ==
LOC: CARD 09:24
PROVIDERS: PCP Family Medicine; Visit Provider Obstetrics & Gynecology
DX: O24.410 Gestational diabetes mellitus in pregnancy, diet controlled (principal); O26.893 Other specified pregnancy related conditions, third trimester; Z86.79 Personal history of other diseases of the circulatory system; Z3A.30 30 weeks gestation of pregnancy; R01.1 Cardiac murmur, unspecified
CPT/HCPCS: 93306; G0108

== ENCOUNTER 2024-08-26 04:54 | Outpatient (OUT) | payer OTHER, BC, SELFPAY ==
--- NOTE | 2024-08-26 | US_ITS ---
[address] [address] Patient Name: ANNA MARIO MRN: [facility]:[id number] date: 2000 Sex: F Assigned Patient Location: [facility] Current Patient Location: [facility] Accession/Order Number: [id number] Exam Date: 08/26/2024 08:00 Report Date: 08/26/2024 08:56 At the request of: LUIS DOTY Procedure: US OB BPP w non-stress EXAMINATION: US OB BPP w non-stress HISTORY:Gestational diabetes mellitus O24.419 COMPARISON: No relevant comparison available. TECHNIQUE: Ultrasound biophysical profile was performed in the radiology department. BREATHING MOVEMENTS: 2 GROSS BODY MOVEMENTS: 2 TONE: 2 QUALITATIVE AMNIOTIC FLUID VOLUME: 2 PRESENTATION: CEPHALIC HEART RATE: 154.29 bpm AMNIOTIC FLUID VOLUME: 14.11 cm GESTATIONAL AGE: 31 weeks 6 days US/US OB BPP w non-stress IMPRESSION: 1. Total biophysical profile score: 8 Electronically authenticated by: LUCHO PADRON Date: 08/26/2024 08:56
--- OUTSIDE RECORDS SUMMARY | 2024-08-26 04:57 | XMS_ITS | CCD ---
Author Organization [facility] Care Team Providers Care Chemistry Physics Teacher Name Role Phone YOBANI ., DR SMITH [...] HILTON Attending Unavailable LUIS HILTON Attending Unavailable LUIS HILTON Attending Unavailable Allergies Allergy Classification Reported Allergen(s) Allergy Type Date of Onset Reaction(s) Facility (2 sources) Latex Drug allergy (disorder) 0 hives [facility] (1 source) orange flavor Drug allergy (disorder) 0 [facility] (5 sources) [place] - fruit; Translations: [ORANGE] 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 4 anaphylaxis [facility] (20 sources) Latex 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 4 Hives, Itching, Rash, Swelling [facility] Healthcare (20 sources) orange allergenic extract Drug Allergy 4 [facility] Healthcare Work Phone: (1 source) natural latex [...] Clavulanate Active 1 TAB PO Twice daily 17 05January 02, 2024 12:00am aspirin 81 mg chewable [...] 06/15/2024 Active azithromycin 250 mg oral tablet (7 sources) Macrolide Antimicrobial Start: 07-15-2024 End: 08-12-2024 azithromycin (Zithromax Z-Jam) 250 MG tablet Indications: Sinusitis, unspecified chronicity, unspecified location As directed 6 tablet 07/15/2024 08/12/2024 Discontinued BD [employer] misc (20 sources) Start: 03-24-2024 BD [employer] misc Indications: Female infertility 1 each if needed (1 large container) 1 each 1 03/24/2024 Active Blood Glucose Monitoring Suppl (D-Care Glucometer) w/Device kit (6 sources) Start: 07-20-2024 End: 07-20-2025 Blood Glucose [...] 03/27/2024 Discontinued estradiol 2 mg oral tablet (20 sources) Estrogen Start: 12-31-2023 estradiol (Estrace) 2 MG tablet 2 mg 12/31/2023 Active ibuprofen 600 mg oral tablet (20 sources) Nonsteroidal Anti-inflammatory Drug Start: 01-04-2023 take 1 tablet by mouth every six hours ibuprofen 600 MG tablet Take 1 tablet by mouth every 6 (six) hours 01/04/2023 Active isopropyl alcohol 0.7 ml/ml medicated pad (6 sources) Start: 07-20-2024 Alcohol Swabs (Alcohol Prep [...] (500 mg total) before bedtime. Active methylPREDNISolone (10 sources) Corticosteroid Start: 06-16-2024 End: 08-12-2024 methylPREDNISolone (Medrol Dospak) 4 MG tablets Indications: Poison contreras Day 1: 6 tablets Day 2: 5 tablets Day 3: 4 tablets Day 4: 3 tablets Day 5: 2 tablets Day 6: 1 tablet 21 tablet 06/16/2024 08/12/2024 Discontinued Start: 06-16-2024 methylPREDNISo lone (Medrol Dospak) 4 MG tablets Indications: Poison contreras Day 1: 6 tablets Day 2: 5 tablets Day 3: 4 tablets Day 4: 3 tablets Day 5: 2 tablets Day 6: 1 tablet 21 tablet 06/16/2024 Active metroNIDAZOLE 500 mg oral tablet (4 sources) Nitroimidazole Antimicrobial Start: 08-04-2024 End: 08-12-2024 take 1 tablet by mouth in the morning metroNIDAZOLE (Flagyl) 500 MG tablet Indications: BV (bacterial vaginosis) Take 1 tablet (500 mg) by mouth in the morning and 1 tablet (500 mg) before bedtime. Do all this for 7 days. Do not drink alcohol while taking this medication. 14 tablet 08/04/2024 08/12/2024 Discontinued Start: 05-27-2024 End: 06-03-2024 take 1 tablet by mouth in the morning metroNIDAZOLE (Flagyl) 500 MG tablet Indications: BV (bacterial vaginosis) Take 1 tablet (500 mg) by mouth in the morning and 1 tablet (500 mg) before bedtime. Do all this for 7 days. Do not drink alcohol while taking this medication. 14 tablet 05/27/2024 06/03/2024 Active Multiple Vitamin (multivitamin) tablet (20 sources) take 1 tablet by mouth once daily Multiple Vitamin (multivitamin) tablet Take 1 tablet by mouth Daily Active norethindrone acetate 5 mg oral tablet (2 sources) Start: 12-31-19 End: 03-27-20 24 take 5 mg by mouth once daily Norethindrone Acetate Active 5 MG PO Daily January 02, 2024 12:00am ondansetron 4 mg disintegrating oral tablet (6 sources) Serotonin-3 Receptor Antagonist Start: 04-13-20 End: 05-13-20 24 take 1 tablet by mouth every six [...] mg oral tablet (20 sources) Start: 01-29-2024 End: 08-12-2024 take 5 mg by mouth once daily predniSONE (Deltasone) 10 MG tablet Take 5 mg by mouth Daily 01/29/2024 08/12/2024 Discontinued Start: 01-02-2024 take 10 mg by mouth [...] Documented Date Episodic/Chronic Contraceptive and procreative management (10 sources) Encounter for other procreative management; Translations: [Patient encounter status] Onset: 07-26-2022 Episodic Diabetes mellitus without complication (2 sources) Abnormal glucose tolerance test; Translations: [Other abnormal glucose] 07-20-2024 Episodic Diabetes or abnormal glucose tolerance complicating ; childbirth; or the puerperium (4 sources) Gestational diabetes mellitus; Translations: [Gestational diabetes [...] 05-25-2024 Episodic Other and delivery including normal (20 sources) [...] of ] 06-22-2024 Episodic Residual codes; unclassified (9 sources) Gestation period, 26 weeks; Translations: [26 weeks gestation of ] Onset: 07-20-2024 07-20-2024 Episodic Residual codes; unclassified (2 sources) Gestation period, 29 weeks; Translations: [29 weeks gestation of ] 08-12-2024 Episodic Thyroid disorders (1 source) Nontoxic single thyroid nodule; Translations: [NONTOXIC SINGLE THYROID NODULE] Onset: 04-08-2022 Chronic Unclassified (15 sources) OB Reminders Onset: 05-18-2024 05-18-2024 Unclassified (1 source) IVF Onset: 06-15-2024 Past or Other Problems Problem Classification Problem Date Documented Da te Episodic/Chronic Ovarian cyst (4 sources) Other ovarian cyst, left side; Translations: [OTHER OVARIAN CYST LEFT SIDE] Onset: 05-17-2022 Episodic Residual codes; unclassified (19 sources) Gestation period, 14 weeks; Translations: [14 weeks gestation of ] Onset: 04-27-2024 04-27-2024 Episodic Results Test Name Value Interpretation Reference Range Facility Urinalysis macro (dipstick) panel (U)on 08-12-2024 Bilirubin, UA Negative Negative - 4(70) +++ mg/dL [facility] Blood, UA Negative Negative - 50 Jimy/mcL [facility] Clarity, UA Clear [facility] Color, UA Yellow [facility] Glucose, UA Negative Negative - 1999(110) ++++ mg/dL [facility] Interpretation and review of laboratory results Abnormal [facility] Ketones, UA Positive Negative - 160(16) ++++ mg/dL [facility] Comment on above: trace Leukocytes, UA Positive Negative - 500+++ Mychal/mcL [facility] Comment on above: large Nitrite, UA Negative Negative - Positive [facility] pH, UA 5.5 5 - 9 [facility] Protein, UA Trace Negative - 1999(20) ++++ mg/dL [facility] Spec Grav, UA 1.03 1 - 1.03 [facility] Urobilinogen, UA 0.2 0.2 - 12 mg/dL [facility] ALL CBC WITH AUTO DIFFon BASOPHILS ABSOLUTE AUTO 0 [facility] Basophils/100 WBC (Bld) 0.3 % 0.2 - 2.0 % [facility] Eosinophils/100 WBC (Bld) 1 % 0.9 - 7.0 % [facility] Erythrocyte distribution width (RBC) [Ratio] 13.2 % 11.0 - 15.0 % [facility] Hematocrit (Bld) [Volume fraction] 32.6 % Low 36.0 - 48.0 % [facility] Hemoglobin (Bld) [Mass/Vol] 11.3 g/dL Low 12.0 - 16.0 g/dL [facility] IMMATURE GRANULOCYTES ABS AUTO 0.07 High [facility] Immature granulocytes/100 WBC (Bld) 0.9 % High 0.0 - 0.5 % [facility] Interpretation and review of laboratory results Abnormal [facility] LYMPHOCYTES ABSOLUTE AUTO 1.6 [facility] Lymphocytes/100 WBC (Bld) 19.6 % Low 20.5 - 60.0 % [facility] MCH (RBC) [Entitic mass] 30.4 pg 26.7 - 34.0 pg [facility] MCHC (RBC) [Mass/Vol] 34.7 g/dL 29.9 - 35.2 g/dL [facility] MCV (RBC) [Entitic vol] 87.6 fL 81.0 - 99.0 fL [facility] MONOCYTES ABSOLUTE AUTO 0.6 [facility] Monocytes/100 WBC (Bld) 8 % 1.7 - 12.0 % [facility] NEUTROPHILS ABSOLUTE AUTO 5.6 [facility] Neutrophils/100 WBC (Bld) 70.2 % 43.0 - 75.0 % [facility] Platelet mean volume (Bld) [Entitic vol] 9.7 fL 9.5 - 13.5 fL [facility] TBH EO # 0.1 [facility] TB PLT 400 [facility] RBC 3.72 Low [facility] WBC 8 [facility] Urinalysis macro (dipstick) panel (U)on 06-22-2024 Bilirubin, UA Negative Negative - 4(70) +++ mg/dL [facility] Blood, UA Negative Negative - 50 Jimy/mcL [facility] Clarity, UA Clear [facility] Color, UA Yellow [facility] Glucose, UA Negative Negative - 1999(110) ++++ mg/dL [facility] Interpretation and review of laboratory results Abnormal [facility] Ketones, UA Positive Negative - 160(16) ++++ mg/dL [facility] Comment on above: 15 Leukocytes, UA Positive Negative - 500+++ Mychal/mcL [facility] Comment on above: small Nitrite, UA Negative Negative - Positive [facility] pH, UA 5.5 5 - 9 [facility] Protein, UA Trace Negative - 1999(20) ++++ mg/dL [facility] Spec Grav, UA 1.03 1 - 1.03 [facility] Urobilinogen, UA 0.2 0.2 - 12 mg/dL [facility] IGP,APTIMA HPV,AGE GDLNon AGE GDLN ACOG TESTING Note . [facility] Comment on above: TESTS RESULT FLAG U NITS REF RANGE LAB Clinician Provided Cytology Information Source.............Cervix Other.............. No. of containers..01 ThinPrep Vial Age Algo ACOG Michelle... FLAG LEGEND: L-Low Normal,H-High Normal,LL-Alert Low,HH-Alert High <-Panic Low,>-Panic High,A-Abnormal,AA-Critical Abnormal Performed at: 01 =G [facility] [place] [address] [place] [address] Mar Rivera MD, IGP, RFX APTIMA HPV ASCU Note . [facility] Comment on above: TESTS RESULT FLAG UN ITS REF RANGE LAB DIAGNOSIS: 02 NEGATIVE FOR INTRAEPITHELIAL LESION OR MALIGNANCY. FUNGAL ORGANISMS MORPHOLOGICALLY CONSISTENT WITH CARLOS SPECIES ARE PRESENT. Specimen adequacy: 02 Satisfactory for evaluation. No endocervical component is identified. An endocervical component is not commonly seen in the patient. Performed by: 02 Camila Vera, Milling/Polishing Operator ([facility]) . 02 Note: Note 02 [...] Low,>-Panic High,A-Abnormal,AA-Critical Abnormal Performed at: 02 WB [facility] [place] [address] [place] [address] Mar Rivera MD, Performed at: = - [facility] [address] [place], [place] [id number] Story Analyst: Mar Rivera MD, Phone: [phone] Performed at: [facility] [address] [place], [place] [id number] Story Analyst: Mar Rivera MD, Phone: [phone] [facility]ONE [facility] AFP, SERUM, OPEN SPINA BIFID Aon 05-30-2024 AFP MOM 1.36 . [facility] AFP VALUE 55.4 ng/mL . [facility] COMMENT: Comment . [facility] Comment on above: Ivet Mobley , Ph.D., [facility] Director References: Available Upon Request. Multiples Of Median Cutoffs For AFP Elevations Del Rosario 2.5 Black 2.8 IDD 2.0 Twins 4.5 Abbreviation Definitions IDD - Insulin Dep Diabetes OSBR - Open Spina Bifida Risk For further inquiries contact [facility] at [phone]. This test was developed and its performance characteristics determined by [facility]. It has not been cleared or approved by the Food and Drug Administration. Performed at: [facility] [address] [place], [place] [id number] Story Analyst: Kristina Carter [facility], Phone: [phone] GEST. AGE ON COLLECTION DATE 18.6 . weeks [facility] GESTAT. AGE BASED ON LMP . [facility] Comment on above: Recalculations are n ot recommended when gestational dating by LMP and ultrasound are within 10 days. INSULIN DEP DIABETES No . [facility] INTERPRETATION Comment . [facility] Comment on above: Interpretation: Scre en Negative [...] Customer Services to discuss available options. The [employer] recommends amniocentesis be offered to women age 35 and older. [age] [facility] MULTIPLE GESTATION No . [facility] OSBR RISK 1 [place] 4034 . [facility] RACE . [facility] RESULTS Report . [facility] TEST RESULTS: Negative . [facility] WEIGHT 185 . lbs [facility] N N LMP [id number] 4 18 N 1 Y 185 N N N N N White/ [facility] Urinalysis macro (dipstick) panel (U)on 04-27-2024 Bilirubin, UA Positive Negative - 4(70) +++ mg/dL [facility] Comment on above: small Blood, UA Negative Negative - 50 Jimy/mcL [facility] Clarity, UA Clear [facility] Color, UA Yellow [facility] Glucose, UA Negative Negative - 2000(110) ++++ mg/dL [facility] Interpretation and review of laboratory results Abnormal [facility] Ketones, UA Positive Negative - 160(16) ++++ mg/dL [facility] Comment on above: trace Leukocytes, UA Positive Negative - 500+++ Mychal/mcL [facility] Comment on above: small Nitrite, UA Negative Negative - Positive [facility] pH, UA 6.0 5 - 9 [facility] Protein, UA Negative Negative - 2000(20) ++++ mg/dL [facility] Spec Grav, UA 1.030 1 - 1.03 [facility] Urobilinogen, UA 0.2 0.2 - 12 mg/dL [facility] ALL CBC WITH AUTO DIFFon BASOPHILS ABSOLUTE AUTO 0.0 [facility] Basophils/100 WBC (Bld) 0.1 % Low 0.2 - 2.0 % [facility] Eosinophils/100 WBC (Bld) 0.9 % 0.9 - 7.0 % [facility] Erythrocyte distribution width (RBC) [Ratio] 13.0 % 11.0 - 15.0 % [facility] IMMATURE GRANULOCYTES ABS AUTO 0.03 [facility] Immature granulocytes/100 WBC (Bld) 0.3 % 0.0 - 0.5 % [facility] Interpretation and review of laboratory results Abnormal [facility] LYMPHOCYTES ABSOLUTE AUTO 2.3 [facility] Lymphocytes/100 WBC (Bld) 26.6 % 20.5 - 60.0 % [facility] MCH (RBC) [Entitic mass] 30.1 pg 26.7 - 34.0 pg [facility] MCHC (RBC) [Mass/Vol] 34.6 g/dL 29.9 - 35.2 g/dL [facility] MCV (RBC) [Entitic vol] 87.0 fL 81.0 - 99.0 fL [facility] MONOCYTES ABSOLUTE AUTO 0.4 [facility] Monocytes/100 WBC (Bld) 4.1 % 1.7 - 12.0 % [facility] NEUTROPHILS ABSOLUTE AUTO 5.9 [facility] Neutrophils/100 WBC (Bld) 68.0 % 43.0 - 75.0 % [facility] Platelet mean volume (Bld) [Entitic vol] 9.6 fL 9.5 - 13.5 fL [facility] TBH EO # 0.1 [facility] PLT 400 [facility] RBC 4.55 [facility] WBC 8.7 [facility] CBC without diffon Rbc Mcv (Fl) By Automated Count 87 [facility] - Hematology and Cell countson 04-08-2024 Hematocrit (Bld) [Volume fraction] 39.6 % [facility] Hemoglobin (Bld) [Mass/Vol] 13.7 g/dL [facility] No Panel Informationon 04-08 [facility] Rubella IGG immune statuson 04-08-2024 Rubella immune IgG 2.32 [facility] Syphilis Total(Unknown Syphi lis Status)on 04-08-2024 Syphilis Non-Reactive [facility] Type and screenon 04-08-2024 Abo/Rh(D) Positive [facility] HCG ( test) Ql (U)o n 03-27-2024 Interpretation and review of laboratory results Abnormal [facility] Preg Test, Ur Positive [facility] Urinalysis macro (dipstick) panel (U)on 03-27-2024 Bilirubin, UA Negative Negative - 4(70) +++ mg/dL [facility] Blood, UA Negative Negative - 50 Jimy/mcL [facility] Clarity, UA Clear [facility] Color, UA Yellow [facility] Glucose, UA Negative Negative - 2000(110) ++++ mg/dL [facility] Interpretation and review of laboratory results Normal [facility] Ketones, UA Negative Negative - 160(16) ++++ mg/dL [facility] Leukocytes, UA Negative Negative - 500+++ Mychal/mcL [facility] Nitrite, UA Negative Negative - Positive [facility] pH, UA 5.5 5 - 9 [facility] Protein, UA Negative Negative - 2000(20) ++++ mg/dL [facility] Spec Grav, UA 1.025 1 - 1.03 [facility] Urobilinogen, UA 0.2 0.2 - 12 mg/dL [facility] PROGESTERONEon 07-27-2022 Progesterone 26.9 ng/mL Normal [facility] Comment on above: Result Comment: Foll icular phase 0.1 - 0.9 Luteal phase 1.8 - 23.9 Ovulation phase 0.1 - 12.0 First trimester 11.0 - 44.3 Second trimester 25.4 - 83.3 Third trimester 58.7 - 214.0 Postmenopausal 0.0 - 0.1 Performed By: #### P ROGES #### [facility] [address] [address] [address] Ryan Francisco PREG QUANT HCGon 07-12-2022 HCG QUANT <1 Normal [facility] Comment on above: Performed By: #### P REGQNT #### [facility] [address] [address] [address] Ryan Francisco HCG RANGE SEE BELOW Normal [facility] Comment on above: Result Comment: 5-50 0.2-1 WEEK 50-500 1-2 WEEKS 100-5,000 2-3 WEEKS 500-10,000 3-4 WEEKS 1,000-50,000 4-5 WEEKS 10,000-100,000 5-6 WEEKS 15,000-200,000 6-8 WEEKS 10,000-100,000 2-3 MONTHS Performed By: #### P REGQNT #### [facility] [address] [address] [address] Ryan Francisco XR HYSTEROSALPINGO EXPon XR [...] by: CLEMENTINE DEWEY Date: 2022-07-12 12:34 Normal [facility] PROGESTERONEon 06-29-2022 Progesterone 4.6 ng/mL Normal [facility] Comment on above: Result Comment: Foll icular phase 0.1 - 0.9 Luteal phase 1.8 - 23.9 Ovulation phase 0.1 - 12.0 First trimester 11.0 - 44.3 Second trimester 25.4 - 83.3 Third trimester 58.7 - 214.0 Postmenopausal 0.0 - 0.1 Performed By: #### P BRETT #### [facility] [address] [place] [address] Dr. Ryan Francisco PROGESTERONEon 06-01-2022 Progesterone 18.9 ng/mL Normal [facility] Comment on above: Result Comment: Foll icular phase 0.1 - 0.9 Luteal phase 1.8 - 23.9 Ovulation phase 0.1 - 12.0 First trimester 11.0 - 44.3 Second trimester 25.4 - 83.3 Third trimester 58.7 - 214.0 Postmenopausal 0.0 - 0.1 Performed By: #### P BRETT #### [facility] [address] [place] [address] Dr. Ryan Francisco US PELVIS AND TRANSVAGon [...] by: CLEMENTINE DEWEY Date: 2022-05-17 17:25 Normal [facility] PROGESTERONEon 04-29-2022 Progesterone 5.1 ng/mL Normal [facility] Comment on above: Result Comment: Foll icular phase 0.1 - 0.9 Luteal phase 1.8 - 23.9 Ovulation phase 0.1 - 12.0 First trimester 11.0 - 44.3 Second trimester 25.4 - 83.3 Third trimester 58.7 - 214.0 Postmenopausal 0.0 - 0.1 Performed By: #### P BRETT ####[facility] [address] [place], [place] [address]SeDr. Ryan Francisco ANTI-MULLERIAN HORMONEon Anti-Mullerian Hormone (AMH) 6.09 ng/mL Normal [facility] Comment on above: Result Comment: For assays employing antibodies, the possibility exists for interference by heterophile antibodies in the samples.1 1.Steffen Wilson Interferences in Immunoassays - still a threat. Clin. Chem. 2000; 46: 2910-1345. This test was developed and its performance characteristics determined by [employer]. It has not been cleared or approved by the Food and Drug Administration. Reference Range: Females 20 - 25y: 1.23 - 11.51 Median 4.70 AMH concentrations of >= 1.06 ng/mL is correlated with a better response to ovarian stimulation, produced more retrievable oocytes and higher odds of live according to Herber et al. Fertility and Sterility. 2010: 94:8413-7543. The current AMH test method correlates with [...] tumor. Performed By: #### A WEI #### [facility] [address] [place], [place] [address] Dr. Ryan Francisco FSHon 04-05-2022 FSH 3.6 mIU/mL Normal [facility] Comment on above: Result Comment: Adul t Female: Follicular phase 3.5 - 12.5 Ovulation phase 4.7 - 21.5 Luteal phase 1.7 - 7.7 Postmenopausal 25.8 - 134.8 Performed By: #### L [facility] #### [facility] [address] [address] [address] Ryan Francisco LUTEINIZING HORMONE (LH)on 0 04-05-2022 LH 6.8 mIU/mL Normal [facility] Comment on above: Result Comment: Adul t Female: Follicular phase 2.4 - 12.6 Ovulation phase 14.0 - 95.6 Luteal phase 1.0 - 11.4 Postmenopausal 7.7 - 58.5 Performed By: #### L [facility] ####[facility] [id number] [address]Dr[address] Ryan Francisco CBC AUTO DIFFon 04-04-2022 BASO # 0.0 103/ul Normal 0.0-0.1 [facility] Comment on above: Performed By: #### C BC #### [facility] [address] [address] [address] Ryan Francisco Basophils/100 WBC (Bld) 0.3 % Normal 0.2-2.0 [facility] Comment on above: Performed By: #### C BC #### [facility] [address] [address] [address] Ryan Francisco EO # 0.1 103/ul Normal 0.0-0.7 [facility] Comment on above: Performed By: #### C BC #### [facility] [address] [address] [address] Ryan Francisco Eosinophils/100 WBC (Bld) 1.7 % Normal 0.9-7.0 [facility] Comment on above: Performed By: #### C BC #### [facility] [address] [address] [address] Ryan Francisco Erythrocyte distribution width (RBC) [Ratio] 12.7 % Normal 11.0-15.0 [facility] Comment on above: Performed By: #### C BC #### [facility] [address] [place] [address] Dr. Ryan Francisco Hematocrit (Bld) [Volume fraction] 39.7 % Normal 36.0-48.0 [facility] Comment on above: Performed By: #### C BC #### [facility] [address] [place] [address] Dr. Ryan Francisco Hemoglobin (Bld) [Mass/Vol] 13.4 g/dL Normal 12.0-16.0 [facility] Comment on above: Performed By: #### C BC #### [facility] [address] [place] [address] Dr. Ryan Francisco IG # 0.03 10e3/ul Normal 0.00-0.03 [facility] Comment on above: Performed By: #### C BC #### [facility] [address] [place] [address] Dr. Ryan Francisco IG % 0.5 % Normal 0.0-0.5 [facility] Comment on above: Performed By: #### C BC #### [facility] [address] [place] [address] Dr. Ryan Francisco LYMPH # 1.6 103/ul Normal 1.2-3.8 [facility] Comment on above: Performed By: #### C BC #### [facility] [address] [place] [address] Dr. Ryan Francisco Lymphocytes/100 WBC (Bld) 27.1 % Normal 20.5-60.0 [facility] Comment on above: Performed By: #### C BC #### [facility] [address] [place] [address] Dr. Ryan Francisco MANUAL DIFF REQ NO Normal [facility] Comment on above: Performed By: #### C BC #### [facility] [address] [place] [address] Dr. Ryan Francisco MCH (RBC) [Entitic mass] 29.6 pg Normal 26.7-34.0 [facility] Comment on above: Performed By: #### C BC #### [facility] [address] [place] [address] Dr. Ryan Francisco MCHC (RBC) [Mass/Vol] 33.8 g/dL Normal 29.9-35.2 [facility] Comment on above: Performed By: #### C BC #### [facility] [address] [place] [address] Dr. Ryan Francisco MCV (RBC) [Entitic vol] 87.6 fL Normal 81.0-99.0 [facility] Comment on above: Performed By: #### C BC #### [facility] [address] [place] [address] Dr. Ryan Francisco MONO # 0.4 103/ul Normal 0.3-0.8 [facility] Comment on above: Performed By: #### C BC #### [facility] [address] [place] [address] Dr. Ryan Francisco Monocytes/100 WBC (Bld) 6.7 % Normal 1.7-12.0 [facility] Comment on above: Performed By: #### C BC #### [facility] [address] [place] [address] Dr. Ryan Francisco NEUT # 3.7 103/ul Normal 1.4-6.5 [facility] Comment on above: Performed By: #### C BC #### [facility] [address] [place] [address] Dr. Ryan Francisco Neutrophils/100 WBC (Bld) 63.7 % Normal 43.0-75.0 [facility] Comment on above: Performed By: #### C BC #### [facility] [address] [place] [address] Dr. Ryan Francisco Platelet mean volume (Bld) [Entitic vol] 9.9 fL Normal 9.5-13.5 [facility] Comment on above: Performed By: #### C BC #### [facility] [address] [place] [address] Dr. Ryan Francisco PLT 421 103/ul Normal 150-450 [facility] Comment on above: Performed By: #### C BC #### [facility] [address] [place] [address] Dr. Ryan Francisco RBC 4.53 106/ul Normal 4.20-5.40 [facility] Comment on above: Performed By: #### C BC #### [facility] [address] [place], [place] [address] Dr. Ryan Francisco WBC 5.8 103/ul Normal 4.0-11.0 [facility] Comment on above: Performed By: #### C BC #### [facility] [address] [place] [id number] Ryan Francisco FREE T4on 04-04-2022 Free T4 [Mass/Vol] 0.99 ng/dL Normal 0.76-1.46 [facility] Comment on above: Performed By: #### F T4 #### [facility] [id number] Ryan Francisco TSHon 04-04-2022 TSH 3.086 uIU/mL Normal 0.358-3.740 [facility] Comment on above: Performed By: #### T SH ####[facility] [address] [place], [place] [address]KhDr. Ryan Francisco US PELVIS AND TRANSVAGon US [...] by: LUCHO PADRON Date: 2022-04-04 16:38 Normal [facility] Auth for Release of Medical Recordson 12-20-2021 Auth for Release of Medical Records [id number]# 1.00CD:127 Normal [facility] Coding Summary.on 08-22-2021 Coding Summary. CD:[id number] Gh0bWw+PGhlYWQ+PE1FV WPxI14djQYarQ2DU8hRT G2THPDJDFTWPW0SLR2zk UA8QPzcG5TigsPn WamztKPdPI92RRs4FHS8 aVypLQdgeV4acZUyJ2e1 YrHvWO99xI94ICxyVVPf SvN2GaNytgdutVXk N7cuKnVicVDlKbe+PHRh YmxlIHdpZHRoPScxMDAl ItPrxOkfKV2lQu5gDYKt LWNvbGxhcHNlOiBj i0egRBYrZOryBC0mxAcm C2ZfqTK5YPBnt1y4Dl60 dHI+RJMvIYL4xAseDCzb s374TkTbt0nrDTF0 dZRpHAudTSO6A60pk2Y4 SZVoKVIeRVP6fGT4qI6t eYuhvargC4WhhRKwKqR0 FOC2bGEdqM2ddIue zrvfmI6hIpf+H75TMY3B ZPWYYT9BUjb6A8WfEhvy dHI+SV73JKAlNS22gSPu hBFtx3novFc8HxVg FTWtPKM4vYioBFcyv8Bw MJEiS89wnGDnm6T8LRGz rEygdQSsDhAasRJ0jU5v VVjebhzgx5rfuhfp Deobq1gkni94sO42K68p KUqlDPXnNRG6RDIuLNFc zJgmzy1ulQ0bTn9+IDxj d8khz8xavPa5MxTp YAUdrwGepUmaJXM4i8Gu Ey61A9TyiBasi1KvXbq8 wy17dJAau2Z5fZI3JVyw BOWbqI1kGPzzPeO9 QLBdHuQvrY41kVPuQWwm Tl9xkEtwsCzgIN6vPMPy zxhcNWCblJ2cEEXwnYEf gSnqLA3uCOZnfxtc x708VyTsWSI1CBVjuJRj G8KqzL0gFkLdNQJuNJFu O0PceKOcXRmdZ969BFwj IqJ0XBQufxNpM8Ic BHOzoMjcNkD9f4K7Wz3T a6VrmeprUAO2FZvpUSAi JpS2VvTwZoK9G2RnDzv9 XMEkeJptTR0wW7Qu NTSflqyfnipscYA9YPMk XSSkuX40qDXrAPcvGq2d b0D1j786MPFkKYUkdM99 Dj8khYefJFVnsWVN kK0eydfzp3jhkwfoRtMj JUQsULr8GWt7IFBfuYpu VcCwPUB0OtZ0QDJ3dPQr zP8oiKfzuyclbT2x Oyc+G65gmG4pLMK9WVN9 gkmnMHFxsmHmLI76RM13 N3FbVttuyLBrlBB+PGRp irCkcHgcQU4tHcOi v6amb0GfCEjbM7SzTAQm PMwyOxo5RVUsWYQ2oMO1 vG1hUTUjFEosq0K0uRF9 F9OjptLtnb0qd9lt KQPlGErnZ94lzXWgd1G7 IEJxnYI5OTWwhVpbOgVw aU83Nxr+WRGmeHnpl6Wm Kphxr0iej3fccWp5 IjMwJSIgdmFsaWduPSJ0 i2QpFf33Q02gLTrkVNTp VFKaMBGuZSMjxQptvs5b sJ5yZx9+PGNvbCB3 rVB6oT7rNULfZmC7JBav V433HfRhsTLhPsnpy2mv b1jkpMt4AhTeJHMwfiOi wUhsDUA0w1UyWv84 L68nLDleRCGxGFAeHBWz WWQmtDlcdz8voN4nLo1+ CJ3tg0wbvm95pO45gSZ+ HXWdESG7dKvqWSev EAKlyB2uJEpdHxN0DPDw ZbNspV44mFMvLMjzFi9v tIvspIxnEE9gPPTzizcf o150SpDwr3nfCCNf wWPaGHqqXHY6Y81do9W1 NDSqNZDoCEC8rQZ4dT8u bGlnbjogbGVmdDsgdmVy iJmuSWkvJRhaJ947 IHRvcDsnPlBhdGllbnQg NyZeCTg0C5AjUiz1YOGc aRbxPQ0vzRVbSDcwFw3c cThjtTvyQZ4gLJDg xumgq250FmZuu3teBLAf cTLrHQicDWL7I01dg1H6 XBAtCHKjMBT9qBE4wU1c bGlnbjogbGVmdDsg niPouQclMLgrBBawU470 IHRvcDsnPkJpcnRoIERh iSK7AG09KF19bXDwd1D4 qPS2D6LmHMScryqg vmskwOZ4KYPuBMNukO89 Zn3zcMewQb8hHSZpQGU9 GZCciTXmZ4InhE6aIdEc BVOfWLTvF9LwiQZn KSnxO555HIvxBtQ8FGBx mlKqJ0MwZBWrhZbfDgI3 x7N3Hb5AX5U2MV94PF29 aMKri1B1lLV3H9Fl AOMobrofjtsmuZP7HSCv GBZxsH94Hl7qlIgoFq6q RKZnGZN0IFNqmCUnK2Xn jS4nDdYkXYHcJLWn A0KsfGYcSPkaE914FOsu CbV0HLPucnNrZ1ZxZTIm wDnwChK9c6H7Hp2AMKo0 YC29PZ23dPCbf9J8 eHQ6G9FaRDBaovzngcqo tDN7FZKvGDWbrM20Uo5g dEpqPw3zEKJtAKQ1ZRYj jNCgO1NyjT1jXcQa TWZzNMQqU3UdiXOuGIuc P350VYieUgC1KCQhdfVa T4UaJWRtySzsEcX8a5C0 Xc1IRNMwZO73CLW0 eLP8ZB43ZW30J0WcJfzf dGFibGU+PHRhYmxlIHdp ZHRoPScxMDAlJyBzdHls XD5uMn4wUUIqACKm cHaviFBpYfGsa5xlMNCx ZVzhBQ7mwKtwF5AymVE6 FQWdn6x9Ad14Z80vX4Kv dXA+AYOswGG3hHC3 nS7cLgMpUfY3FGjbZ784 VdCexKKrIeejs4lrn6ly eOf7XrS6HXFgzwOurEpi EQG1h1PmLp93I75u IHdpZHRoPSIxNSUiIHZh bPdflc9zhU9kEh9+PGNv zLN2uEC4iF6cGaImCqX8 NPkoM133NbOvhYVj Pitze0ztr4stuMi8WsLe GRPjdlAuyAhnWHW0z0Hz Gi62A8MrmCqvh5MoSqk3 lb27kLFjd5V6wAK2 V4QcCXVdxdcwlEYhvJtn RM0qZJUapvqjNEBqsD4t QEOiI0m7LzHqPmI1XXvz C9GjywQ1WGLnbEMb IVtkKEI4L34vz3U7FNIy ZKEkDWJ4nRY5tG3lcTdd bjogbGVmdDsgdmVydGlj QHszEJjqD704LMBa dJyvARYvpH2hEFIgrPHz fEcmOT8aGRDyjqjsZgbQ UZAvECkKMHZWCL04PN18 eGDdg2R3lDM7R3Wj VWRvhxyoilyalKN5QSUg RZTbtX13mXUtEVczVe4r l2T7g717JRIpOPZfkF98 De0dlLatJMXbmLIB eP2gjiwtw1bjvdqkRoWd UDVfJRb7WFr7CDAmvEvz UfUoRQJ9NjB3XFP4iOWl iC6jbSxbkvpzdJ9h Oyc+LNUfNrjeNDe0FUly dGQ+JBWuWHD5fEayOKhl TTGqbU6hXLBeR6u8SaFf RvE8CIkxC3DbKPVg apjjCd45yN2bRhOkQbI5 CGycS0XlrrR8ASUkmQZg CWamRIH5E24bi7K9HXIk MPYsREW4pKD3eA2j bGlnbjogbGVmdDsgdmVy lUynFTewFSftH140ZTBz tPtvChXeJRsyXOGsGD67 EE98tHOsh3Q9nCZ1 V1AvBPRpojgexfittKQ7 XRKyRAIakP82lOLiNSia Qy7wr5R3j809GJMvFXZn pU29Ph2coWtwFVHd qBWZaJ0bepaoa0gpsitb YcSvOWNxTKc6STn9KDSe tJzwBcMsTSL9PnG3QMK0 pSXviI7zxXwltznk lB1qPie+NbEoIVxpZF26 AF90gETol3C4nUA5W1Md XFCymzwxapuhzKF3RFZr VUYryO33mOUfHKpy Ls1bu6J7p974QEWpAVIj tY70Im3prQbfESEycRQZ qO6yhtlrp3kbdourFoWg LASrLYu8YCp7OVGx rKgcSdTzEZF6TtE3CST0 wBOndG3apOknvhuwcG3k Oyc+L3I2eTB3iVIjrJbf dGQ+OS82tp26N5Zx BhzyInq8KNWlYTL8sRJ4 lP9pJIHoCHpkt8R0kYJ3 A7BdyyBoha0fk8mePTGl YCcoH54jaELse6M2 VUWvtCB8KYJadWbuLdVt uX69Swd+EIRyeTcnx6Mn Hfpjr0uwa5hxbRy4PdWp JSIgdmFsaWduPSJ0 b2SwKb29V00uQMcdIJJh LGHiGHJdGWIueNwsym4t kG7qFm7+CKIfcVY0fHH1 xJ1nIsRsLwU9ARmx L575CkKnyGKqYtvsb6wi m4weaIe8YyRxJOTjrxWt hPhkOUU3s5FfPo44U0Pt sOgsk0QoDxd0kb64 lRZlx4M4dZQ3C7YkXEQb dekhqKHriJhpTM1jEXWh qvjqKZKdqJ2fSWGpJ5p9 QaPhKgQ8LTzxH6Hy urI6PROoxEAuGBGlzQKT aL2pwmoaf6naorzpPjIc ZKWbTIg1SOq5RNUfcJrh FkJxVLW9ZjZ6TKQ0 vQVtuV1kzDyzrzcobT3w Oyc+OOm0g0kjnPHaAJ4y pRB4OA09VT77mUAzi4J8 tBM8D9CgBQFvheek ppovzTG9TQYlNYUbtO20 Ie1lnSzzMr3qUETqTZK2 UEFzaYQpU5LejO5sRvZu RKTmWXNnM4RwpFAw HFysN967WWaoMxF2WYPn buFoN3AxLSPcvGnzCgR6 j6N6Eh7BBR94QS45ZI30 yTXuk0C0mYH6R5Dm JFVntfgkslgmsGU7CUMb ZBDlrU20Oq4usWymRa4d VUQtATD3LHHfyGBhN9Vb zS1kFxRnMWTxXBWx Q3GjiPNtOTkyE638ABfz BuJ6CILniaPeY0ObEXNo yYbyVnH4a9H8Wv9RTw19 AC76FN77rYDbw8J1 oYO1U9MiDBExwtgpgnwd bJM3DHCnAZQcbQ33Rv3b jBvwRz4yHRXqFAR1WSXd qFGfJ0DklG5lIbQv XQIkEQBzR8DrvQFkNYrb K776OPjrDxW5YTThmkJz T8YbLJZdiMmuJbA4d7P8 Ag6KXMfknum0T3Xq PjwvdHI+LH77IHLeFK22 qCAxsXXhi6audQl6JzXl RCUeFVB2yFrqJJffq9Vv SCIeA22htOZtb7V3 IGNv (more content not included)... [facility] Coding Summary. CD:[id number] Gh0bWw+PGhlYWQ+PE1FV KHhM74pkWUnkK6EC0jAR Y8WIBTZDZWLHX6PRQ5cr MM4MZtsQ2EvbsNw EnzmiPDtVR36CJv8RDO6 lDawNBftkU2xcQLkV6f7 UnGkOX93rU02ANfiJJSf FiN3KfNwvdywaJMe C9hkQsPrlXBkVxq+PHRh YmxlIHdpZHRoPScxMDAl SxNejZpgOO5nUm0zALNq LWNvbGxhcHNlOiBj b6ogEQBaZFbkGN9noQod F1LuwQE2FRZvb0k5Tx53 dHI+QURmMAJ7oLrbAJos r611OoXfc6gjENY5 mLXaPSztCGV1S44qn3E2 HOTgMXBlGEI0iFW9tF6d aUmedhkfZ5GrmMWvWoO7 QZD1bAYpeN1toUpx sfmbmQ8cIrs+O90QZH3E KTSUGM1JEmd8R1OfFlin dHI+HT65EBNySS81jPBl kRZgw0bdiNw5JnIg GAEnQAX7fZyrGFvyg5Th CDJvC48lwNGqx3O6YTKx yMoimSMbVbJesAR1aC4y PHbbhgeot2pptmxi Rwzlw6rhcr54cA41N74j JQvzGPVfPVT2YYYaFBYf bGdvip2muB7kDo3+IDxj g7zmj6gtdEz2XeKi OFZmceSikQjrJLK0w0Pc Xm55R8EnuZtfr7FkBpv4 oq22bFIki9T3uYY5VXhv BEVkiI6hOVzvDnF5 WLJvKuVmjY49qVMeQXop Th3rpYpjvQifMK5qVCAq jkfpEGFjwX3pUNMaxXXg jDerYL8aCKDkajid f176JxOuXCH9PUDozDUq C8NxyI4hTyYiHSRgRSGk E5ShuWKdSXumF302OHcf VbM2CYPpinBpC8Np EABldEgwLgK4b0J3Sl4K v0MlgpvtMCI1LXzoRESl IyJ3VmXyMkS6D9TrWcr6 ZQAxuBoaFH4dH7Dv JOFbjelfqscpnLH5TAMb GXOmgQ26uDCnAAouZs1w j8B5o142MHOfDKBviE31 Dt9kwEwcAUQrxHYO lV2ccsuqd7srpagyDjEv EVHlDIb9MAu0YFHrvWmj QsZeSOJ7XiQ2TQM6vQUe jW5ajOwqyjnpgR6a Oyc+F55acX0zWJA6QHK7 ngrbFDPfbtRgLZ23HH25 R9EnZwdqoJJakIV+PGRp hlYxoPngIF9bMzTv d5iyv5MrGXwcP8BrUPHo ACjsXop7TLOtHPS3iEX6 jB1hNMBySJptr0X7tUP7 U6KfngHons3qh2do SHLmMMmeP90siDOsg3E8 SBMdlHX9HNRcnMfsVlBy jS75Tkw+VCSyrIxjg3Rx Bmakw0pgg9qlaCd8 IjMwJSIgdmFsaWduPSJ0 a9ZxJy53C49bLWniGADa CGXvCEScMHLpeDblvc7t fB1zMs1+PGNvbCB3 nNQ3xA2sYTWlKrY9TZhu W986KdTmyIWrGukjl6lf b1cnrBb8UoCfBUJalyUn sGvlZWO6d0WqWb03 O98dPUlaZRTrDAQtJZYf UELhbAtjdo3arI7sQr6+ GQ1xr3ucfy19cF62lJI+ MXByZIV2pAegUMug UCPelB4xSQilWkC5YCZc ZbPzwE27sVBlMNnxUb1b pMfmwBunFL1iZDFvhzes w601YlSua7urUXMc aXZmGKkcFGV9F25cs3X8 GGZiAVDfVDX0zTJ2aD1j bGlnbjogbGVmdDsgdmVy rAjvYXvrQGjoG226 IHRvcDsnPlBhdGllbnQg NrInLHi3A7PvAvs4SQDu kRxqRP9fsVHsWQjiAx2z pYrbyEuiAI2wXVSo swtjx016UrWtk6rkYZXh aIVhVRcxVKQ7Z37hv1B1 DVMzADVvAYL7fIY1yF7t bGlnbjogbGVmdDsg ncIaxEkhTNgkYKssV642 IHRvcDsnPkJpcnRoIERh oKL5HA29BY99iDCfn4K0 eWR5W2LqPUKeuydf enberEZ4TVBvXTIawP72 Zr2mjCayTn1gPJAfDRO6 NIAteBXeW6KdjV2wKhLm VIVzUBQvR2OniYHu HIdqV506ZLyvEnN3QANd buVuX9PpYIXgzDrzScI9 t8Q9Fp6VW3P9XS51NR78 aZGhw8E1zQA8C6Ph QERglgtvanyeoWX7MKXr PYSwuD58Th4nmVxeSv0n XRWiNUB9FXSciLFpW6Ng dW7bLcDcZDUoBRRj H1WhbFLnEEdzE635HAou KwJ8EBEbtfCgX2JeTICn sOlyRxL0s1N9Mc5VBTd2 KE13IS40lGDzv6H4 mHA3S4GqTABnmeqieych dWX1VGBoBEVerX83Ca0n eQeuId9fWAIiZHI9ZEOz mZQsA5WbwV5cWaOx WKMoURMvG8MhfIYtQXka H899SIjyTgL6CMAvcsRi K8ArNXIzpRvuZvB1x5W4 Qr7ZZYVxJV50EFD2 jSB6FE81MA02Z0UeKtuw dGFibGU+PHRhYmxlIHdp ZHRoPScxMDAlJyBzdHls DN2hSx5uDTCqEPOr bUjecQZaMeNqe7dlRJPo YXtsYI8dyLkrO3LyiYK1 TMNzi9u8Kk90A03vK9Wc dXA+YUHhoSR8jGW7 iQ6aWnHrUgM3BGviS838 AlJjoRDvBsero5ivc6tj gOe1UzW0ZSGyaoTotEtn AZG5l8TjZr91J39s IHdpZHRoPSIxNSUiIHZh vUsucb5ofM4eSn4+PGNv wTH4kJF6uC4wUeMzGiN7 EFjhV435WwQojMZr Iojiv5sua1ddwRm0JjPl BBMlltFbeRltFHY4k0Se Ea45E0MneEspv0YnPck1 et50rZIrv0F6mDK1 K4AlWDUfeayfrAHilZxs YW6cGYXvqkowLERmoE7p WDVpD4d4OwXmJhV3IZtm Q7UhbnF4CDScwFTh XXfxBDN0V64xl5G1EZDb AKOiKQO7tWP5wB8zfIll bjogbGVmdDsgdmVydGlj MPrvIOmzU331STKy gPsqTILqvC8oYGFujUCo bZduZS2qUWJmajkhVpdI PVPsWXcOPMURMN24ZC48 tTOjm0P9eMF1V0Ig GNLynjftikcmeZH4EPCt BGLjqW18oCIsPWihYg9f f7C5u500WNYjADCrpW39 Mh0hiMbiYXJbjNJA gE9sljlsr4vkevsmEpBs VXVlSXi1ODz0TBStcRrg QuAaRQC3RbS2CMR7aQJn lJ5vcUofdnpcfP3o Oyc+ONLqFgciMVx0TRsv dGQ+FANvVKB0zRtsZHxj HKGtdS3hATNgV4k7VbGd QcG8XPfaG0UeMFEk tocvYi60wH6hBbJlHoU4 JPsuG5LbbiN7YUHanXLu HGzbESF6C39rl4D3MQEc ZCThSCD5yWF0yB3c bGlnbjogbGVmdDsgdmVy vChoEApuWRaeU692IZBa nVmiHjUvTCnkXEUsZF13 UH67aJWta4K6gSO4 I6FpKITghyrjzyfmyUL1 BUQbEPRejZ26yITsTDnr Iz2rm0D4n614HFHuFIXo hD94Ld1kcByqNZPe rFMUgR0fzavit0dnztxu DwOjLTGzFPa6AVr0ILBd rPjcXaNhISR9YmU3RIU4 zJQufG7sqLjbhyor cP5cUoz+MoRpQDneSK62 WY41sSKgp5B0vLR1H8An VZJxfzrscmztjIP0TAUd DPVmsV05dQRzSFrf Ud7df2N6f579CJYjIZBl fV20Ao8mqNgbMNYdsYHY sZ6fwvetl9vjpiafRmLz UDByBHp5IRr6VXJa xQbbPqCcRAT6BaP3VBI8 eWWcnM7daMeubesqhL0i Oyc+CYTcCYZcm2Bvf0Dh DR14WM05Y1HdGjqq dGFibGU+PHRhYmxlIHdp ZHRoPScxMDAlJyBzdHls DA7nTf7dNRFoSRWtiEcs hCMsGzCkf7lwSXWy ALnpGC2rqYqkG1LstKE0 NPKkk4g3Sc19I37qB7Ii dXA+RVPgwBA2kLU4zG5a JoXfBeE4IUnrC814 OlQzqVSlCkjff3jkl6up pVs8QkYfLTFjmzEdhUlb LRG9x8SbYm94G36eMWfq ZHRoPSIyMCUiIHZh eYdjui4spZ5bIo7+PGNv wWE6nOG7pQ5oKjJaTdD1 NDjdO577YrMvxSJsTozt L01wN8AjtWN+PHRy Hba7KCZycZflTN6dpPDi WOitJp5hBKZ1ElCyQaLz NTqxE1TsIBToaejzoroe kRC9PWNcYURpnJ72 Ro3vzGquCr0tEFTvHGS0 OULlrYVpR4VkmW9kRmFv OAXlIAXuL0OffOEcWAjq M588OCkpSwI8BKUc pdXmO7SqGROfmKmxAaR4 u1J0Rz6TvDclwGVgHG9w MxZmYVx3K5TbIup9VGUn hGvqUS9ybTMeLNmn Un5ooOxcuZmrOZ8bUJJi onjbp397UeOmw3jsYGUz lPGjDEnjFNC6C39dn1G3 IFUxETNyHDU5rGD8 nV6uaKfxnmfsiUGuyMef coZkoTmcJJkqNOaeR059 GFSbuYxkSsFRRxt7H6Fp Jre2WOZbfHzrXB8t sFSlMClgRf8zbNfnlNxq HN1oPLUmfvaxm859MpSm e1vqYPSfqUPrQRpzDYW7 O75nx8J5TBNsUUJm KVH9lVL9eW6fiTqquple bGVmdDsgdmVydGljYWwt CNkyQ812VSCpmGkkFq0M Zkx7W3EaTkx8DPJs nHczVE5gmUOvFMbuFn0i uDbzmFlkNZ7zHSNfxegd r652XdWql2ymTESojYEb TNdfHQE5L16zd3M1 FQIzFEWcZSX4mWC3jN9k bGlnbjogbGVmdDsgdmVy xEktDWdfUWaoN428PINe cDsnPlBheWVyOjwv dGQ+JW71rv31X2HsDgue Stq6EGUgISW1hMG9oE1i UMHjMNvzf3S3sQS6V8Wt rfSyrf4ko4jwMTMt [employer] (more content not included)... Normal [facility] PAP [id number] 08-15-2021 Cytology report Cyto stain Doc (Cvx/Vag) Note Invalid Interpretation Code [facility] Comment on above: Result Comment: TEST S RESULT FLAG UNITS REF RANGE LAB Clinician Provided Cytology Information Source.............[employer] No. of containers..01 ThinPrep Vial DIAGNOSIS: 01 NEGATIVE FOR INTRAEPITHELIAL LESION OR MALIGNANCY. Specimen adequacy: 01 Satisfactory for evaluation. No endocervical component is identified. Performed by: Byron Engle Milling/Polishing Operator (ASCP) . 01 Note: Note 01 The [...] <-Panic Low,>-Panic High,A-Abnormal,AA-Critical Abnormal Performed at: [address] [place] [address] Mar Rivera MD, Performed By: #### 1 [id number] #### [facility] [address] [place] [address] HPV 16+18+31+33+35+39+45 +51+52+56+58+59+66+6 8 DNA Probe+sig amp Ql (Cvx) Negative Invalid Interpretation Code Negative [facility] Comment on above: Result Comment: This nucleic acid amplification test detects fourteen high-risk HPV types (16,18,31,33,35,39,45,51,52,56,58,59,66,68) without differentiation. Performed at: [address] [id number] MD Nicole Manuel Performed at: [address] [id number] MD Nicole Manuel Performed By: #### 1 [id number] #### [facility] [address] [place] [address] Insulin Lvlon 08-11-2021 Insulin Qn 24.3 u[IU]/mL Invalid Interpretation Code 2.6-24.9 [facility] Comment on above: Result Comment: Perf ormed at: [facility] [address] [id number] PhD Archie Jha Performed By: #### 1 [id number] #### [facility] [address] [place] [address] Consent for Treatmenton 07-29 Consent for Treatment [id number] #1.00CD:127 Normal [facility] Glu Fastingon 08-10-2021 Glucose [Mass/Vol] 95 mg/dL Normal 55-99 [facility] Comment on above: Performed By: #### 1 [id number] #### [facility] [address] [place] [address] Physician Orderon 08-10-2021 Physician Order [id number] 2#1.00CD:127 Normal [facility] PAP [id number] 08-09-2021 Collection Technique BRUSH-SPATULA Normal F [facility] Comment on above: Performed By: #### 1 [id number] #### [facility] [address] [place] [address] Gynecological Body Site ENDOCERVIX Normal [facility] Comment on above: Performed By: #### 1 [id number] #### [facility] [address] [place] [address] Physician Orderon 08-09-2021 Physician Order [id number] #1.00CD:127 Normal [facility] Gynecology Office/Clinic Not pratik 02-17-2019 Gynecology Office/Clinic [...] Family History Family history is negative Normal [facility] Comment on above: Result Comment: Elec tronically Signed By: Shamika ISAACS, Kaley Pablo.david\Date and Time Signed: 02/17/19 12:09 EDT Gynecology [...] Family History Family history is negative Normal [facility] Comment on above: Result Comment: Elec tronically Signed By: Shamika ISAACS, Kaley Wilson\.br\Date and Time Signed: 02/17/19 12:09 EDT Vital Signs Date Time Vital Sign Value Performing Clinician Facility 08-12-2024 11:08-0500 Body mass index (BMI) [Ratio] 34.93 kg/m2 [employer] DO Work Phone: [facility] 08-12-2024 11:08-0500 Body weight 86.64 kg [employer] Work Phone: [facility] 08-12-2024 11:08-0500 Diastolic blood pressure 80 mm[Hg] [employer] Work Phone: [facility] 08-12-2024 11:08-0500 Systolic blood pressure 120 mm[Hg] Luis Yobani DO Work Phone: [facility] 07-20-2024 11:00-0500 Body mass index (BMI) [Ratio] 34.39 kg/m2 Luis Yobani DO Work Phone: [facility] 07-20-2024 11:00-0500 Body weight 85.28 kg Luis Yobani DO Work Phone: [facility] 07-20-2024 11:00-0500 Diastolic blood pressure 76 mm[Hg] Luis Yobani DO Work Phone: [facility] 07-20-2024 11:00-0500 Systolic blood pressure 122 mm[Hg] Luis Yobani DO Work Phone: [facility] 06-22-2024 14:31-0500 Body mass index (BMI) [Ratio] 34.2 kg/m2 Luis Yobani DO Work Phone: [facility] 06-22-2024 14:31-0500 Body weight 84.82 kg Luis Yobani DO Work Phone: [facility] 06-22-2024 14:31-0500 Diastolic blood pressure 78 mm[Hg] Luis Yobani DO Work Phone: [facility] 06-22-2024 14:31-0500 Systolic blood pressure 124 mm[Hg] Luis Yobani DO Work Phone: [facility] 06-15-2024 10:27-0500 Body weight 84.82 kg Hugo Rodriguez MD Work Phone: [facility] 06-15-2024 10:27-0500 Diastolic blood pressure 88 mm[Hg] Hugo Rodriguez MD Work Phone: [facility] 06-15-2024 10:27-0500 Heart rate 99 /min Hugo Rodriguez MD Work Phone: [facility] 06-15-2024 10:27-0500 Respiratory rate 18 /min Hugo Rodriguez MD Work Phone: [facility] 06-15-2024 10:27-0500 Systolic blood pressure 137 mm[Hg] Hugo Rodriguez MD Work Phone: [facility] 05-25-2024 11:46-0400 Body mass index (BMI) [Ratio] 33.84 kg/m2 Luis Yobani DO Work Phone: [facility] 05-25-2024 11:46-0400 Body weight 83.92 kg Luis Yobani DO Work Phone: [facility] 05-25-2024 11:46-0400 Diastolic blood pressure 74 mm[Hg] Luis Oybani DO Work Phone: [facility] 05-25-2024 11:46-0400 Systolic blood pressure 118 mm[Hg] Luis Yobani DO Work Phone: [facility] 04-27-2024 10:35-0400 Body mass index (BMI) [Ratio] 33.75 kg/m2 Luis Yobani DO Work Phone: [facility] 04-27-2024 10:35-0400 Body weight 83.69 kg Luis Yobani DO Work Phone: [facility] 04-27-2024 10:35-0400 Diastolic blood pressure 76 mm[Hg] Luis Yobani DO Work Phone: [facility] 04-27-2024 10:35-0400 Systolic blood pressure 122 mm[Hg] Luis Yobani DO Work Phone: [facility] 03-27-2024 10:27-0400 Body mass index (BMI) [Ratio] 34.53 kg/m2 [facility] 03-27-2024 10:27-0400 Body weight 85.64 kg [facility] 03-27-2024 10:27-0400 Diastolic blood pressure 70 mm[Hg] [facility] 03-27-2024 10:27-0400 Systolic blood pressure 120 mm[Hg] [facility] 01-02-2024 09:150400 Body height 157.48 cm [facility] 01-02-2024 09:15-0400 Body mass index (BMI) [Ratio] 33.9 kg/m2 [facility] 01-02-2024 09:15-0400 Body temperature 100.2 [degF] [facility] 01-02-2024 09:150400 Body weight 84.08 kg [facility] 01-02-2024 09:15-0400 Heart rate 115 /min [facility] 01-02-2024 09:15-0400 Respiratory rate 18 /min [facility] 01-02-2024 09:15-0400 SaO2% (BldA) [Mass fraction] 99 % [facility] Encounters Encounter Date Encounter Type Care Provider Facility Start: 08-12-2024 End: 08-12-2024 Bamboo flowsheet Luis Yobani DO Work Phone: [facility] Start: 08-12-2024 End: 08-12-2024 Bamboo flowsheet Luis Yobani DO Work Phone: [facility] Start: 08-12-2024 End: 08-12-2024 flow sheet Luis Yobani DO Work Phone: [facility] Comment on above: 29 weeks gestation o f ; Third trimester ; Gestational diabetes mellitus (GDM), antepartum, gestational diabetes method of control unspecified; Encounter for in vitro fertilization Start: 08-12-2024 End: 08-12-2024 ambulatory LUIS YOBANI Not Available Start: 08-05-2024 End: 08-05-2024 Clinisync Result Encounter Luis Yobani DO Work Phone: [facility] External [facility] Unsolicited Start: 08-05-2024 End: 08-05-2024 Clinisync Result Encounter Luis Yobani DO Work Phone: [facility] Unsolicited Start: 07-20-2024 End: 07-20-2024 Bamboo flowsheet Luis Yobani DO Work Phone: [facility] Start: 07-20-2024 End: 07-20-2024 Bamboo flowsheet Luis Yobani DO Work Phone: [facility] Start: 07-20-2024 End: 07-20-2024 flow sheet Luis Yobani DO Work Phone: [facility] Comment on above: 26 weeks gestation o f ; Diabetes mellitus screening; Second trimester ; PCOS (polycystic ovarian syndrome); resulting from in vitro fertilization, antepartum; Gestational diabetes mellitus (GDM), antepartum, gestational diabetes method of control unspecified; Elevated glucose tolerance test Start: 07-20-2024 End: 07-20-2024 ambulatory LUIS YOBANI Not Available Start: 06-22-2024 End: 06-22-2024 Bamboo flowsheet Luis Yobani DO Work Phone: [facility] Start: 06-22-2024 End: 06-22-2024 Bamboo flowsheet Luis Yobani DO Work Phone: [facility] Start: 06-22-2024 End: 06-22-2024 flow sheet Luis Yobani DO Work Phone: [facility] Comment on above: Second trimester pre gnancy; 22 weeks gestation of ; Personal history of cardiac murmur Start: 06-22-2024 End: 06-22-2024 ambulatory LUIS YOBANI Not Available Start: 06-15-2024 End: 06-15-2024 Office consultation new/estab patient 60 min Hugo Rodriguez MD Work Phone: [facility] Comment on above: 21 weeks gestation o f (Primary Dx); Chronic hypertension affecting ; In vitro fertilization Start: 06-15-2024 End: 06-15-2024 ambulatory HUGO RODRIGUEZ [facility] Start: 05-28-2024 End: 05-30-2024 Clinisync Result Encounter Luis Yobani DO Work Phone: [facility] External Department Unsolicited Start: 05-28-2024 End: 05-30-2024 Clinisync Result Encounter Luis Yobani DO Work Phone: [facility] Unsolicited Start: 05-27-2024 End: 05-27-2024 Chart abstracting Hugo Rodriguez MD Work Phone: [facility] Start: 05-25-2024 End: 05-25-2024 Bamboo flowsheet Luis Yobani DO Work Phone: [facility] Start: 05-25-2024 End: 06-01-2024 Bamboo flowsheet Luis Yobani DO Work Phone: [facility] Start: 05-25-2024 End: 06-01-2024 Clinisync Result Encounter Luis Yobani DO Work Phone: [facility] External Department Unsolicited Start: 05-25-2024 End: 05-25-2024 [...] 04-08-2024 End: 04-08-2024 Clinisync Result Encounter Luis Hilton DO Work Phone: [facility] Unsolicited Start: 04-08-2024 End: 04-08-2024 Clinisync Result Encounter Luis Donaldo DO Work Phone: [facility] Unsolicited Start: 03-27-2024 End: 03-27-2024 Office outpatient visit 5 minutes [facility] Comment on above: GA: 10w1d Start: 03-27-2024 End: 03-27-2024 ambulatory LUIS HILTON Not Available Start: 01-02-2024 End: 01-02-2024 ambulatory JOHNNY FERNANDEZ Not Available Start: 01-02-2024 End: 01-02-2024 ambulatory [facility] Work Phone: Start: 01-02-2024 End: 01-02-2024 Patient encounter procedure Formerly [facility] Work Phone: [...] Date Procedure Procedure Detail Performing Clinician Start: 08-12-2024 Urnls dip stick/tabl et rgnt non-auto w/o micrscp Luis Yobani DO Work Phone: Start: 08-05-2024 ALL CBC WITH AUTO DIFF [...] malign ant neoplasm of cervix Pap Smear [facility] Start: 06-15-2025 Tobacco Screening Tobacco Screening [facility] Start: 08-27-2024 End: 08-27-2024 Patient encounter procedure 08/27/2024 11:40 AM EST Routine [facility] [address] [place] [phone] Luis Hilton, DO [address] [place] [address] [facility] Start: 08-27-2024 End: 08-27-2024 Professional / ancillary services management 08/27/2024 11:00 AM EST Ancillary Procedure [facility] [address] [phone] [facility] Start: 08-12-2024 End: 08-12-2025 US biophysical profile w non stress test US biophysical profile w non stress test Imaging Routine Gestational diabetes mellitus (GDM), antepartum, gestational diabetes method of control unspecified Encounter for in vitro fertilization Expected: 08/12/2024 (Approximate), Expires: 08/12/2025 [facility] Work Phone: Comment on above: Expected: 08/12/2024 (Approximate), Expires: 08/12/2025 Start: 08-12-2024 End: 08-12-2024 Patient encounter procedure [facility] Comment on above: Arrived Start: 07-20-2024 End: 07-20-2025 CBC panel - Blood by Automated count CBC Lab Routine 26 weeks gestation of Diabetes mellitus screening Expected: 07/20/2024 (Approximate), Expires: 07/20/2025 [facility] Work Phone: Comment on above: Expected: 07/20/2024 (Approximate), Expires: 07/20/2025 Start: 07-20-2024 End: 07-20-2025 Measurement of glucose 1 hour after glucose challenge for glucose tolerance test Glucose tolerance, 1 hour Lab Routine 26 weeks gestation of Diabetes mellitus screening Expected: 07/20/2024 (Approximate), Expires: 07/20/2025 [facility] Comment on above: Expected: 07/20/2024 (Approximate), [...] End: 06-15-2024 Patient encounter procedure [facility] [place] Start: 05-25-2024 End: 11-23-2024 Alpha fetoprotein, maternal Alpha fetoprotein, maternal Lab Routine Second trimester Expected: 05/25/2024 (Approximate), Expires: 11/23/2024 [facility] Comment on above: Expected: 05/25/2024 (Approximate), Expires: 11/23/2024 Start: 05-25-2024 End: 05-25-2024 Patient encounter procedure [facility] Comment on above: Arrived Start: 05-05-2024 End: 05-05-2024 Professional / ancillary services management 05/05/2024 2:30 PM EDT Ancillary Procedure [facility] [address] [place] [address] [place] [address] [facility] Start: 04-27-2024 End: 04-27-2025 US Pelvis transvaginal US OB transvaginal Imaging Routine Encounter for screening for cervical length Expected: 04/27/2024 (Approximate), Expires: 04/27/2025 [facility] Work Phone: Comment on above: Expected: 04/27/2024 (Approximate), Expires: 04/27/2025 Start: 04-27-2024 End: 04-27-2024 Patient encounter procedure 04/27/2024 10:20 AM EDT Routine [facility] [address] [place] [id number] Luis Hilton DO [address] [facility] [place] [address] [facility] Start: 03-29-2024 COVID-19 Vaccine ( season) COVID-19 Vaccine ( season) [facility] Start: 03-29-2024 Influenza vaccination [facility] Start: 03-27-2024 End: 03-27-2025 ABO/Rh ABO/Rh Lab Routine Missed menses Expected: 03/27/2024 (Approximate), Expires: 03/27/2025 [facility] Comment on above: Expected: 03/27/2024 (Approximate), Expires: 03/27/2025 Start: 03-27-2024 End: 03-27-2025 Blood type and Indirect antibody screen panel - Blood Type and screen Lab Routine Missed menses Expected: 03/27/2024 (Approximate), Expires: 03/27/2025 [facility] Work Phone: Comment on above: Expected: 03/27/2024 (Approximate), Expires: 03/27/2025 Start: 03-27-2024 End: 03-27-2025 US Pelvis transvaginal US OB transvaginal Imaging Routine Missed menses Expected: 03/27/2024 (Approximate), Expires: 03/27/2025 [facility] Comment on above: Expected: 03/27/2024 (Approximate), Expires: 03/27/2025 Start: 2020 Screening for malign ant neoplasm of cervix Pap Smear [facility] Start: 2018 DTaP,Tdap and Td Vaccines (1 - Tdap) DTaP,Tdap and Td Vaccines (1 - Tdap) [facility] Start: 2017 Adult BMI Screening Adult BMI Screen ing [facility] Start: 2011 Depression Screening Depression Scre ening [facility] Start: 2011 Tobacco Screening Tobacco Screening [facility] Start: 1999 Screening for Chlamy leoncio trachomatis Chlamydia Screening [facility] Bacteria identified in Urine by Culture Urine culture Microbiology Routine Missed menses Ordered: 03/27/2024 [facility] Comment on above: Ordered: 03/27/2024 CBC W Auto Different ial panel - Blood CBC and differential Lab Routine Missed menses Ordered: 03/27/2024 [facility] Comment on above: Ordered: 03/27/2024 CHLAMYDIA TRACHOMATI S (GENITO/STI) CHLAMYDIA TRACHOMATIS (GENITO/STI) Lab Routine STD exposure Ordered: 05/25/2024 [facility] Comment on above: Ordered: 05/25/2024 Cytology Cervical or vaginal smear or scraping study Pap Smear Pathology and Cytology Routine Well woman exam with routine gynecological exam Ordered: 05/25/2024 [facility] Work Phone: Comment on above: Ordered: 05/25/2024 Hemoglobin A1c/Hemoglobin.total in Blood Hemoglobin A1c Lab Routine Missed menses Ordered: 03/27/2024 [facility] Comment on above: Ordered: 03/27/2024 Hepatitis B virus surface Ag [Presence] in Serum or Plasma by Immunoassay Hepatitis B surface antigen Lab Routine Missed menses Ordered: 03/27/2024 [facility] Comment on above: Ordered: 03/27/2024 Hepatitis C virus Ab [Presence] in Serum or Plasma by Immunoassay Hepatitis C antibody Lab Routine Missed menses Ordered: 03/27/2024 [facility] Comment on above: Ordered: 03/27/2024 HIV-1/HIV-2 antigen/antibody combination immunoassay HIV-1 and HIV-2 antibodies Lab Routine Missed menses Ordered: 03/27/2024 [facility] Comment on above: Ordered: 03/27/2024 Neisseria gonorrhoea e DNA [Presence] in Unspecified specimen by BUCK with probe detection Neisseria gonorrhea DNA probe, direct Lab Routine STD exposure Ordered: 05/25/2024 [facility] Comment on above: Ordered: 05/25/2024 Reagin Ab [Presence] in Serum by RPR RPR Lab Routine Missed menses Ordered: 03/27/2024 [facility] Comment on above: Ordered: 03/27/2024 Rubella antibody, IgG Rubella an tibody, IgG Lab Routine Missed menses Ordered: 03/27/2024 [facility] Comment on above: Ordered: 03/27/2024 SURESWAB(R) ADVANCED VAGINITIS PLUS, TMA SURESWAB(R) ADVANCED VAGINITIS PLUS, TMA Pathology and Cytology Routine Vaginal discharge Ordered: 05/25/2024 [facility] Comment on above: Ordered: 05/25/2024 Payers Date Payer Category Payer Commercial Managed C are - PPO [employer] [id number] 2023 [facility] [id number] 2023 Unknown [id number] 2021 Private Health Insurance [id number] 2021 Unknown [id number]. [id number] 2021 Unknown [id number] 1999 Unknown [id number] 2.16.840.1.441453.3.579.2. 593 1999 Unknown [id number] 2.16.840.1.098216.3.579.2. 593 1999 Unknown [id number] 2.16.840.1.750571.3.579.2. 593 1999 Unknown [id number] 2.16.840.1.125332.3.579.2. 593 1999 Unknown [id number] 2.16.840.1.649668.3.579.2. 593 1999 Unknown [id number] 2.16.840.1.693341.3.579.2. 593 1999 Unknown [id number] 2.16.840.1.701264.3.579.2. 593 1999 Unknown [id number] 2.16.840.1.469442.3.579.2. 1286 1999 Unknown [id number] 2.16.840.1.496209.3.579.2. 1286 1999 Unknown [id number] 2.16.840.1.198660.3.579.2. 1259 1999 Unknown [id number] 2.16.840.1.248047.3.579.2. 1259 1999 Unknown [id number] 2.16.840.1.124653.3.579.2. 1259 1999 Unknown [id number] 2.16.840.1.294992.3.579.2. 1259 1999 Unknown [id number] 2.16.840.1.942158.3.579.2. 1259 1999 Unknown [id number] 2.16.840.1.459743.3.579.2. 1259 1999 Unknown [id number] 2.16.840.1.754253.3.579.2. 1259 1999 Unknown [id number] 2.16.840.1.847203.3.579.2. 1259 1959 Private Health Insurance [id number] 1959 Unknown [id number] Social History Date Type Detail Facility [facility] Work Phone: Start: 2000 Sex Assigned At Female F [facility] Start: 01-02-2024 End: 05-27-2024 Tobacco smoking status KYIS Never smoked tobacco [facility] Start: 01-02-2024 End: 05-27-2024 Tobacco use and exposure Smokeless tobacco non-user [facility] Start: 04-27-2024 End: 08-12-2024 Alcoholic beverage intake Ex-drinker (finding) [facility] Start: 01-02-2024 End: 06-15-2024 History of Social function [facility] Start: 01-02-2024 End: 06-15-2024 Tobacco use panel [facility] Start: 01-29-2024 [facility] Start: 11-26-2023 Gender identity Identifies as female gender (finding) [facility] Start: 05-27-2024 End: 06-15-2024 Alcoholic beverage intake Lifetime non-drinker (finding) [facility] Start: 1999 Sex assigned at Not on file P [facility] Start: 05-26-2024 Sex Female (finding) [facility] Medical Equipment Procedure Code Equipment Code Equipment Origin al Text Equipment Identifier Dates 1 strip by In Vi tro route Daily Use in the morning prior to breakfast, 1 hour after each meal for a total of 4times daily. [id number] Start: 07-20-2024 End: 08-19-2024 1 each by In Vit ro route Daily Use to check FSBS four times daily [id number] Start: 07-20-2024 End: 08-19-2024 Goals Date Patient Goal Desired Activity /State Personal health goal Clinical Notes 03-27-2024 to 08-12-2024 Chika Tracy, MARIA DEL CARMEN - 08/12/2024 11:10 AM Kamille Garcia, KRISTOPHER - 07/20/2024 10:20 AM Gautam Peter, MARIA DEL CARMEN - 06/22/2024 1:50 PM Natalie Rodriguez MD - 06/15/2024 11:00 AM EST Note Date & Type Note Facility 08-12-2024 History of Present illness Narrative Reason for Appointment: Patient ID: Amy Mario is a 24 y.o. female who presents for Routine Visit Patient presents today for Return OB appointment. MEDICATIONS Current Outpatient Medications Medication Instructions acyclovir (ZOVIRAX) 800 mg, 2 times daily Alcohol Swabs (Alcohol Prep Pad) 70 % pads 1 Pad, Topical, Daily, Use four times daily to check FSBS. BD [employer] Home misc 1 each, Does not apply, As needed Blood Glucose Monitoring Suppl (D-Care Glucometer) w/Device kit 1 kit, Does not apply, Daily, Use four times daily to check FSBS. In the morning prior to breakfast & 1 hour after each meal for a total of 4times daily. estradiol (ESTRACE) 2 mg Glucose Blood (Blood Glucose Test) strip 1 strip, In Vitro, Daily, Use in the morning prior to breakfast, 1 hour after each meal for a total of 4times daily. ibuprofen 600 MG tablet 1 tablet, Every 6 hours labetalol (NORMODYNE) 200 mg, Oral, 2 times daily Lancets Ultra Thin misc 1 each, In Vitro, Daily, Use to check FSBS four times daily metFORMIN (GLUCOPHAGE) 2,000 mg, Daily Multiple Vitamin (multivitamin) tablet 1 tablet, Daily ALLERGIES Allergies Allergen Reactions [place] Flavor [[place] Oil] Latex Hives, Itching, Rash and Swelling [...] Relation Name Age of Onset Diabetes Father Trery [place] Heart failure Father Terry [place] Heart failure Father's Brother A baby- hole in heart resulted in SURGICAL HISTORY Past Surgical History: Procedure Laterality Date TONSILLECTOMY REVIEW OF SYSTEMS Review of Systems: Review of Systems Constitutional: Negative. HENT: Negative. Eyes: Negative. Respiratory: Negative. Cardiovascular: Negative. Gastrointestinal: Negative. Genitourinary: Negative. Musculoskeletal: Negative. Skin: Negative. Neurological: Negative. All other systems reviewed and are negative. Hematological: Negative. Endocrine: Negative. Allergic/Immunologic: Negative. OBJECTIVE Objective: Physical Exam Constitutional: Appearance: Normal [...] nursing note reviewed. Exam conducted with a associate application developer present. Vitals: Estimated body mass index is 34.93 kg/m as calculated from the following: Height as of 01/01/24: 5' 2 . Weight as of this encounter: 191 lb. BP: 120/80 No LMP recorded. Patient is . ASSESSMENT & PLAN ICD-10-CM 1. 29 weeks gestation of Z3A.29 POCT urinalysis dipstick manually resulted 2. Third trimester Z34.93 POCT urinalysis dipstick manually resulted 3. Gestational diabetes mellitus (GDM), antepartum, gestational diabetes method of control unspecified O24.419 US biophysical profile w non stress test 4. Encounter for in vitro fertilization Z31.83 US biophysical profile w non stress test Return OB: Patient presents today for a routine obstetrics appointment. Patient is currently 29w6d . Patient states she is doing well but has complaints of being tired due to current . Patient has verbalizes frequent movement. labor precautions was discussed/given and patient was instructed to perform kick counts three times a day. Pt given NST/BPP to have start at 32 weeks Orders Placed This Encounter Procedures US biophysical profile w non stress test POCT urinalysis dipstick manually resulted Follow Up: Patient is to return to office in 2 week for routine OB appointment. Documented by Chika Tracy LPN on behalf of: Luis Hilton DO documented in this encounter [facility] 07-20-2024 History of Present illness Narrative Reason for Appointment: Patient ID: Amy Mario is a 24 y.o. female who presents [...] mg, Oral, Daily ALLERGIES Allergies Allergen Reactions [place] Flavor [[place] Oil] Latex Hives, Itching, Rash and Swelling [...] Luis Hilton DO documented in this encounter [facility] 06-22-2024 History of Present illness Narrative Reason [...] mg, Oral, Daily ALLERGIES Allergies Allergen Reactions [place] Flavor [[place] Oil] Latex Hives, Itching, Rash and Swelling [...] a Estimated Date of Delivery: 10/22/24. Reviewed [facility] appointment with patient and informed patient that with history of heart murmur EKG will be ordered. Patient to return to clinic in 4 weeks for routine OB appointment. Documented by Esperanza Peter LPN on behalf of: Luis Hilton DO documented in this encounter [facility] 06-15-2024 History of Present illness Narrative [facility] Consult Note Reason For Consult: IVF HPI: Amy Mario is a 23 y.o. at 21w4d with [...] Allergies: Allergies Allergen Reactions Latex, Natural Rubber [place] Meds: Prior to Admission medications Medication Sig [...] other morbidities. Based on the available evidence, [facility] recommends treatment with antihypertensive therapy for mild [...] preeclampsia prevention as is recommended by the [place] [employer] Committee Opinion No. 743. [...] Hugo Rodriguez MD, FACOG (she/hers) Maternal- Medicine [facility] [address] [place] [address] This document was created with [employer] technology. Though I make every effort to review the dictation as it is transcribed, on occasion the spoken word can be misinterpreted by the technology leading to inappropriate words, phrases, or sentences. This note is addressed to the requesting provider as a consultation for clinical guidance. Specific medical abbreviations are occasionally used and those are generally approved by the [place]?Board of?Obstetrics and?Gynecology?as well as?Kenzie croft abbreviations. The above plan of care was based solely on the diagnoses for which a consultation was requested. ?More frequent testing may be indicated based on her other medical/obstetrical conditions. The management of other or medical conditions is beyond the scope of requested consultation and will continue to be followed by the primary shower doors and panels fabricator or primary care provider. Note to patient: [...] IVF Have you been seen here at [facility] in a previous ? N/a Recent ER visits or hospitalizations? no Bring blood sugar log or meter with you today? (Please bring them with you for every visit at [facility]) no Flu vaccine (May-September)? no Any concerns that you would like me to mention to the provider today? no documented in this encounter [facility] 05-25-2024 History of Present illness Narrative Reason [...] mg, Oral, Daily ALLERGIES Allergies Allergen Reactions [place] Flavor [[place] Oil] Latex Hives, Itching, Rash and Swelling [...] nursing note reviewed. Exam conducted with a associate application developer present. Vitals: Estimated body mass index is [...] Luis Hilton DO documented in this encounter [facility] 04-27-2024 History of Present illness Narrative Reason [...] mg, Oral, Daily ALLERGIES Allergies Allergen Reactions [place] Flavor [[place] Oil] Latex Hives, Itching, Rash and Swelling [...] nursing note reviewed. Exam conducted with a associate application developer present. Vitals: Estimated body mass index is [...] IVF . Patient to also have [facility] referral for IVF and Level II ultrasound. [...] or undercooked meat, and stay away from [facility]. Patient has been consulted regarding any further do's and don'ts of . Patient voiced understanding and all questions and concerns were answered. Orders Placed This Encounter Procedures POCT urinalysis dipstick manually resulted Follow Up: Patient is to return in 4 weeks for routine OB appointment. Documented by Esperanza Peter LPN on behalf of: Luis Hilton DO documented in this encounter [facility] 03-27-2024 History of Present illness Narrative Reason [...] Procedure Laterality Date TONSILLECTOMY Allergies Allergen Reactions [place] Flavor [[place] Oil] Latex Hives, Itching, Rash and Swelling [...] or undercooked meat, and stay away from [facility]. Patient has also been advised to not [...] Jo-Ann Motta LPN documented in this encounter [facility] Evaluation note No assessment inform ation available [facility] Work Phone: Evaluation note Diagnosis Well woman exam with routine gynecological exam Routine gynecological examination Second trimester state, incidental Vaginal discharge Leukorrhea, not specified as infective STD exposure documented in this encounter [facility] Diagnosis 21 weeks gestation of - Primary Chronic hypertension affecting In vitro fertilization Encounter for assisted reproductive fertility procedure cycle [facility] Diagnosis Second trimester state, [...] glucose tolerance test documented in this encounter [facility] Diagnosis 29 weeks gestation of Third trimester state, incidental Gestational diabetes mellitus (GDM), antepartum, gestational diabetes method of control unspecified Encounter for in vitro fertilization Encounter for assisted reproductive fertility procedure cycle documented in this encounter [facility] HealthcareInstructionsNot on filedocumented in this [facility] SystemInstructionsNot on filedocumented in this encounterProAv[facility] SystemInstructions* Attachments The following attachments cannot be sent through Care Everywhere. * Preeclampsia (Spanish) [facility] Purpose Family History No [...] content) DATE CREATED AUTHOR 03/06/2019 [facility] DATE CREATED AUTHOR AUTHOR'S ORGANIZ ATION 12/21/2021 [facility] DATE CREATED AUTHOR AUTHOR'S ORGANIZ ATION 12/01/2022 [facility] DATE CREATED AUTHOR AUTHOR'S ORGANIZ ATION 06/17/2024 [facility] DATE CREATED AUTHOR AUTHOR'S ORGANIZ ATION 08/15/2024 [facility] Care Teams (unrecognized sec tion and content) Team Status: Active Member Role Status Dates Damon Stover DO Primary Care Provider Active Team Status: Inactive Member Role Status Dates Damon Stover DO Primary Care Provider Active Start: January 02, 2024 End: January 02, 2024 Teresa Sanchez APRN Attending Provider Active S tart: January 02, 2024 End: January 02, 2024 Chemistry Physics Teacher Relationship Specialty Start Date End Date Kayce Grant MD [address] [place] [phone] PCP - General Family Medicine 11/27/23 Chemistry Physics Teacher Relationship Specialty Start Date End Date Kayce Grant MD [address] [place] [phone] PCP - General Family Medicine 11/27/23 Chemistry Physics Teacher Relationship Specialty Start Date End Date Kayce Grant MD [address] [place] [address] PCP - General Family Medicine 11/27/23 Chemistry Physics Teacher Relationship Specialty Start Date End Date Kayce Grant MD [address] [place] [phone] PCP - General Family Medicine 11/27/23 Chemistry Physics Teacher Relationship Specialty Start Date End Date Kayce Grant MD [address] [facility] [place] [address] PCP - General Family Medicine 11/27/23 Chemistry Physics Teacher Relationship Specialty Start Date End Date Kayce Grant MD [address] [facility] [place] [address] PCP - General Family Medicine 11/27/23 Chemistry Physics Teacher Relationship Specialty Start Date End Date Kayce Grant MD [address] [facility] [place] [address] PCP - General Family Medicine 11/27/23 Chemistry Physics Teacher Relationship Specialty Start Date End Date Kayce Grant MD [address] [facility] [place] [address] PCP - General Family Medicine 11/27/23 Chemistry Physics Teacher Relationship Specialty Start Date End Date Kayce Grant MD [address] [facility] [place] [address] PCP - General Family Medicine 11/27/23 Chemistry Physics Teacher Relationship Specialty Start Date End Date Kayce Grant MD [address] [facility] [place] [address] PCP - General Family Medicine 11/27/23 Chemistry Physics Teacher Relationship Specialty Start Date End Date Kayce Grant MD [address] [facility] [place] [address] PCP - General Family Medicine 11/27/23 Chemistry Physics Teacher Relationship Specialty Start Date End Date Kayce Grant MD [address] [facility] [place] [phone] PCP - General Family Medicine 11/27/23 Goals [...] BE BASED ON THE PRIMARY CLINICAL RECORDS. [employer] provides no warranty or guarantee of the accuracy or completeness of information in this document.
[2024-08-26 08:20] VITALS: BP 128/86; PULSE 90
== END 2024-08-26 09:58 | disposition home or self-care (01) ==
LOC: US 04:55 → FBC 07:51
PROVIDERS: PCP Family Medicine; Visit Provider Obstetrics & Gynecology
DX: Z31.83 Encounter for assisted reproductive fertility procedure cycle (principal); O24.419 Gestational diabetes mellitus in pregnancy, unspecified control; Z3A.31 31 weeks gestation of pregnancy
CPT/HCPCS: 76818

== ENCOUNTER 2024-08-29 03:23 | Outpatient (OUT) | payer OTHER, BC, SELFPAY ==
--- OUTSIDE RECORDS SUMMARY | 2024-08-29 03:28 | XMS_ITS | CCD ---
Author Organization [facility] Care Team Providers Care General Adjuster Name Role Phone YOBANI ., DR SMITH [...] KAYCE Watson Primary Care Unavailable ZIEBER, DR RONNY Johnson Consulting Unavailable YOBANI ., DR SMITH [...] Latex Drug allergy (disorder) 0 hives [facility] (1 source) orange flavor Drug allergy (disorder) 0 [facility] (5 sources) [place] - fruit; Translations: [ORANGE] 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 4 anaphylaxis [facility] (20 sources) Latex 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 4 Hives, Itching, Rash, Swelling [facility] (20 sources) orange allergenic extract Drug Allergy 4 [facility] Healthcare Work Phone: (1 source) natural [...] Glucose Monitoring Suppl (D-Care Glucometer) w/Device kit (7 sources) Start: 07-20-2024 End: 07-20-2025 Blood Glucose [...] Ovidrel 250 MCG/0.5ML injection 11/26/2023 03/27/2024 Discontinued Continuous Glucose Inside Sales Representative (FreeStyle Jenise 3 [place]) device (1 source) Start: 08-20-2024 Continuous Glucose Inside Sales Representative (FreeStyle Jenise 3 [place]) device Indications: Gestational diabetes mellitus (GDM), antepartum, gestational diabetes method of control unspecified , Third trimester 1 each every 14 (fourteen) days 1 each 3 08/20/2024 Active Continuous Glucose Sensor (FreeStyle Jenise 3 Sensor) misc (1 source) Start: 08-20-2024 Continuous Glucose Sensor (FreeStyle Jenise 3 Sensor) misc Indications: Gestational diabetes mellitus (GDM), antepartum, gestational diabetes method of control unspecified , Third trimester 1 each every 14 (fourteen) days 2 each 3 08/20/2024 Active estradiol 2 mg oral tablet (20 sources) Estrogen Start: 12-31-2023 estradiol (Estrace) 2 MG tablet 2 mg 12/31/2023 Active ibuprofen 600 mg oral tablet (20 sources) Nonsteroidal Anti-inflammatory Drug Start: 01-04-2023 take 1 tablet by mouth every six hours ibuprofen 600 MG tablet Take 1 tablet by mouth every 6 (six) hours 01/04/2023 Active isopropyl alcohol 0.7 ml/ml medicated pad (7 sources) Start: 07-20-2024 Alcohol Swabs (Alcohol Prep [...] 06/16/2024 Active metroNIDAZOLE 500 mg oral tablet (5 sources) Nitroimidazole Antimicrobial Start: 08-25-2024 End: 09-01-2024 take 1 tablet by mouth in the morning metroNIDAZOLE (Flagyl) 500 MG tablet Indications: Vaginal discharge Take 1 tablet (500 mg) by mouth in the morning and 1 tablet (500 mg) before bedtime. Do all this for 7 days. Do not drink alcohol while taking this medication. 14 tablet 08/25/2024 09/01/2024 Active Start: 08-04-2024 End: 08-12-2024 take 1 tablet [...] of ] 06-22-2024 Episodic Residual codes; unclassified (10 sources) Gestation period, 26 weeks; Translations: [26 weeks gestation of ] Onset: 07-20-2024 07-20-2024 Episodic Residual codes; unclassified (2 sources) Gestation period, 29 weeks; Translations: [29 weeks gestation of ] 08-12-2024 Episodic Thyroid disorders (1 source) Nontoxic single thyroid nodule; Translations: [NONTOXIC SINGLE THYROID NODULE] Onset: 04-08-2022 Chronic Unclassified (16 sources) OB Reminders Onset: 05-18-2024 05-18-2024 Unclassified [...] SIDE] Onset: 05-17-2022 Episodic Residual codes; unclassified (20 sources) Gestation period, 14 weeks; Translations: [14 weeks gestation of ] Onset: 04-27-2024 04-27-2024 Episodic Results Test Name Value Interpretation Reference Range Facility US OB BPP W NON-STRESS on 08-26-2024 [place] [address] Ultrasound Report Signed Patient: AMY MARIO MR#: [id number] : 2000 Acct:[id number] Age/Sex: 24 / F ADM Date: 08/26/24 Loc: [facility] 251-[address]: Luis Hilton D.O. Ordering Physician: Luis Hilton D.O. Date of Service: 08/26/24 Procedure(s): US OB BPP w non-stress Accession Number(s): [id number] cc: Kayce Grant M.D.; Luis Hilton D.O. [place] [id number] Patient Name: AMY MARIO MRN: [facility]:[id number] date: 2000 Sex: F Assigned Patient Location: [facility] Current Patient Location: [facility] Accession/Order Number: [id number] Exam Date: 08/26/2024 08:00 Report Date: 08/26/2024 08:56 At the request of: LUIS HILTON Procedure: US OB BPP w non-stress EXAMINATION: US OB BPP w non-stress HISTORY:Gestational diabetes mellitus O24.419 COMPARISON: No relevant comparison available. TECHNIQUE: Ultrasound biophysical profile was performed in the radiology department. BREATHING MOVEMENTS: 2 GROSS BODY MOVEMENTS: 2 TONE: 2 QUALITATIVE AMNIOTIC FLUID VOLUME: 2 PRESENTATION: CEPHALIC HEART RATE: 154.29 bpm AMNIOTIC FLUID VOLUME: 14.11 cm GESTATIONAL AGE: 31 weeks 6 days US/US OB BPP w non-stress IMPRESSION: 1. Total biophysical profile score: 8 Electronically authenticated by: RONNY MIXON Date: 08/26/2024 08:56 Dictated By: Ronny Mixon M.D. Signed By: 08/26/2458 DD/ 5 TD/TT: Chief Telephone Operator: [facility] Radiology, Radiologist, - 08/26/2024 [place] [address] Ultrasound Report Signed Patient: AMY MARIO MR#: [id number] : 2000 Acct:[id number] Age/Sex: 24 / F ADM Date: 08/26/24 Loc: [facility] 251-[address]: Luis Hilton D.O. Ordering Physician: Luis Hilton D.O. Date of Service: 08/26/24 Procedure(s): US OB BPP w non-stress Accession Number(s): [id number] cc: Kayce Grant M.D.; Luis Hilton D.O. [place] [address] Patient Name: AMY MARIO MRN: [facility]:[id number] date: 2000 Sex: F Assigned Patient Location: [facility] Current Patient Location: [facility] Accession/Order Number: [id number] Exam Date: 08/26/2024 08:00 Report Date: 08/26/2024 08:56 At the request of: LUIS HILTON Procedure: US OB BPP w non-stress EXAMINATION: US OB BPP w non-stress HISTORY:Gestational diabetes mellitus O24.419 COMPARISON: No relevant comparison available. TECHNIQUE: Ultrasound biophysical profile was performed in the radiology department. BREATHING MOVEMENTS: 2 GROSS BODY MOVEMENTS: 2 TONE: 2 QUALITATIVE AMNIOTIC FLUID VOLUME: 2 PRESENTATION: CEPHALIC HEART RATE: 154.29 bpm AMNIOTIC FLUID VOLUME: 14.11 cm GESTATIONAL AGE: 31 weeks 6 days US/US OB BPP w non-stress IMPRESSION: 1. Total biophysical profile score: 8 Electronically authenticated by: RONNY MIXON Date: 08/26/2024 08:56 Dictated By: Ronny Mixon M.D. Signed By: 08/26/2458 DD/ TD/TT: Chief Telephone Operator: [facility] Radiology Study observation (narrative) [facility] US OB BPP W NON-STRESS Ordered By: Radiologist Radiology on 08-26-2024 [facility] Work Phone: Urinalysis macro (dipstick) panel (U)on 08-12-2024 Bilirubin, UA Negative Negative - 4(70) +++ mg/dL [facility] Blood, UA Negative Negative - 50 Jimy/mcL [facility] Clarity, UA Clear [facility] Color, UA Yellow [facility] Glucose, UA Negative Negative - 2000(110) ++++ mg/dL [facility] Interpretation and review of laboratory results Abnormal [facility] Ketones, UA Positive Negative - 160(16) ++++ mg/dL [facility] Comment on above: trace Leukocytes, UA Positive Negative - 500+++ Mychal/mcL [facility] Comment on above: large Nitrite, UA Negative Negative - Positive [facility] pH, UA 5.5 5 - 9 [facility] Protein, UA Trace Negative - 2000(20) ++++ mg/dL [facility] Spec Grav, UA 1.03 1 - 1.03 [facility] Urobilinogen, UA 0.2 0.2 - 12 mg/dL [facility] ALL CBC WITH AUTO DIFFon BASOPHILS ABSOLUTE AUTO 0 [facility] Basophils/100 WBC (Bld) 0.3 % 0.2 - 2.0 % [facility] Eosinophils/100 WBC (Bld) 1 % 0.9 - 7.0 % [facility] Erythrocyte distribution width (RBC) [Ratio] 13.2 % 11.0 - 15.0 % [facility] Hematocrit (Bld) [Volume fraction] 32.6 % Low 36.0 - 48.0 % [facility] Hemoglobin (Bld) [Mass/Vol] 11.3 g/dL Low 12.0 - 16.0 g/dL [facility] IMMATURE GRANULOCYTES ABS AUTO 0.07 High [facility] Immature granulocytes/100 WBC (Bld) 0.9 % High 0.0 - 0.5 % [facility] Interpretation and review of laboratory results Abnormal [facility] LYMPHOCYTES ABSOLUTE AUTO 1.6 [facility] Lymphocytes/100 WBC (Bld) 19.6 % Low 20.5 - 60.0 % [facility] MCH (RBC) [Entitic mass] 30.4 pg 26.7 - 34.0 pg [facility] MCHC (RBC) [Mass/Vol] 34.7 g/dL 29.9 - 35.2 g/dL [facility] MCV (RBC) [Entitic vol] 87.6 fL 81.0 - 99.0 fL [facility] MONOCYTES ABSOLUTE AUTO 0.6 [facility] Monocytes/100 WBC (Bld) 8 % 1.7 - 12.0 % [facility] NEUTROPHILS ABSOLUTE AUTO 5.6 [facility] Neutrophils/100 WBC (Bld) 70.2 % 43.0 - 75.0 % [facility] Platelet mean volume (Bld) [Entitic vol] 9.7 fL 9.5 - 13.5 fL [facility] TBH EO # 0.1 [facility] [address]T [address] [facility] RBC 3.72 Low [facility] WBC 8 [facility] Urinalysis macro (dipstick) panel (U)on 06-22-2024 Bilirubin, UA Negative Negative - 4(70) +++ mg/dL [facility] Blood, UA Negative Negative - 50 Jimy/mcL [facility] Clarity, UA Clear [facility] Color, UA Yellow [facility] Glucose, UA Negative Negative - 1999(110) ++++ mg/dL [facility] Interpretation and review of laboratory results Abnormal [facility] Ketones, UA Positive Negative - 160(16) ++++ mg/dL [facility] Comment on above: 15 Leukocytes, UA Positive Negative - 500+++ Mychal/mcL [facility] Comment on above: small Nitrite, UA Negative Negative - Positive [facility] pH, UA 5.5 5 - 9 [facility] Protein, UA Trace Negative - 1999(20) ++++ mg/dL [facility] Spec Grav, UA 1.03 1 - 1.03 [facility] Urobilinogen, UA 0.2 0.2 - 12 mg/dL [facility] IGP,APTIMA HPV,AGE GDLNon AGE GDLN ACOG TESTING Note . [facility] Comment on above: TESTS RESULT FLAG UN ITS REF RANGE LAB Clinician Provided Cytology Information Source.............Cervix Other.............. No. of containers..01 ThinPrep Vial Age Link BARRON Michelle... FLAG LEGEND: L-Low Normal,H-High Normal,LL-Alert Low,HH-Alert High <-Panic Low,>-Panic High,A-Abnormal,AA-Critical Abnormal Performed at: 01 =G [facility] [address] [place] [address] Mar Rivera MD, IGP, RFX APTIMA HPV ASCU Note . [facility] Comment on above: TESTS RESULT FLAG UN ITS REF RANGE LAB DIAGNOSIS: 02 NEGATIVE FOR INTRAEPITHELIAL LESION OR MALIGNANCY. FUNGAL ORGANISMS MORPHOLOGICALLY CONSISTENT WITH CARLOS SPECIES ARE PRESENT. Specimen adequacy: 02 Satisfactory for evaluation. No endocervical component is identified. An endocervical component is not commonly seen in the patient. Performed by: Judy Vera, Instructor Tap Dancing ([facility]) . 02 Note: Note 02 The [...] <-Panic Low,>-Panic High,A-Abnormal,AA-Critical Abnormal Performed at: [address] [address] Mar Rivera MD, Performed at: = - [address] [id number] [employer] Clerk: Mar Rivera MD, Phone: [phone] Performed at: [address] [id number] [employer] Clerk: Mar Rivera MD, Phone: [phone] [facility] AFP, SERUM, OPEN SPINA BIFID Aon 05-30-2024 AFP MOM 1.36 . [facility] AFP VALUE 55.4 ng/mL . [facility] COMMENT: Comment . [facility] Comment on above: Ivet Mobley , Ph.D., [facility] Director References: Available Upon Request. Multiples Of Median Cutoffs For AFP Elevations [place] 2.5 Black 2.8 IDD 2.0 Twins 4.5 Abbreviation Definitions IDD - Insulin Dep Diabetes OSBR - Open Spina Bifida Risk For further inquiries contact [employer] at [phone]. This test was developed and its performance characteristics determined by [facility] [employer] It has not been cleared or approved by the Food and Drug Administration. Performed at: - [facility] [address] [place], [place] [id number] [employer] Clerk: Kristina Carter [facility], Phone: [phone] GEST. AGE ON COLLECTION DATE 18.6 . weeks [facility] GESTAT. AGE BASED ON LMP . [facility] Comment on above: Recalculations are n ot recommended when gestational dating by LMP and ultrasound are within 10 days. INSULIN DEP DIABETES No . [facility] INTERPRETATION Comment . [facility] Comment on above: Interpretation: Scre en [...] Customer Services to discuss available options. The [employer] recommends amniocentesis be offered to women age 35 and older. MATER[age] AT SARA 25.3 [age] [facility] MULTIPLE GESTATION No . [facility] OSBR RISK 1 [place] 4034 . [facility] RACE . [facility] RESULTS Report . [facility] TEST RESULTS: Negative . [facility] WEIGHT 185 . lbs [facility] N N LMP [id number] 4 18 N 1 Y 185 N N N N N White/ [facility] Urinalysis macro (dipstick) panel (U)on 04-27-2024 Bilirubin, UA Positive Negative - 4(70) +++ mg/dL [facility] Comment on above: small Blood, UA Negative Negative - 50 Jimy/mcL [facility] Clarity, UA Clear [facility] Color, UA Yellow [facility] Glucose, UA Negative Negative - 2000(110) ++++ mg/dL [facility] Interpretation and review of laboratory results Abnormal [facility] Ketones, UA Positive Negative - 160(16) ++++ mg/dL [facility] Comment on above: trace Leukocytes, UA Positive Negative - 500+++ Mychal/mcL [facility] Comment on above: small Nitrite, UA Negative Negative - Positive [facility] pH, UA 6.0 5 - 9 [facility] Protein, UA Negative Negative - 1999(20) ++++ mg/dL [facility] Spec Grav, UA 1.030 1 - 1.03 [facility] Urobilinogen, UA 0.2 0.2 - 12 mg/dL [facility] ALL CBC WITH AUTO DIFFon BASOPHILS ABSOLUTE AUTO 0.0 [facility] Basophils/100 WBC (Bld) 0.1 % Low 0.2 - 2.0 % [facility] Eosinophils/100 WBC (Bld) 0.9 % 0.9 - 7.0 % [facility] Erythrocyte distribution width (RBC) [Ratio] 13.0 % 11.0 - 15.0 % [facility] IMMATURE GRANULOCYTES ABS AUTO 0.03 [facility] Immature granulocytes/100 WBC (Bld) 0.3 % 0.0 - 0.5 % [facility] Interpretation and review of laboratory results Abnormal [facility] LYMPHOCYTES ABSOLUTE AUTO 2.3 [facility] Lymphocytes/100 WBC (Bld) 26.6 % 20.5 - 60.0 % [facility] MCH (RBC) [Entitic mass] 30.1 pg 26.7 - 34.0 pg [facility] MCHC (RBC) [Mass/Vol] 34.6 g/dL 29.9 - 35.2 g/dL [facility] MCV (RBC) [Entitic vol] 87.0 fL 81.0 - 99.0 fL [facility] MONOCYTES ABSOLUTE AUTO 0.4 [facility] Monocytes/100 WBC (Bld) 4.1 % 1.7 - 12.0 % [facility] NEUTROPHILS ABSOLUTE AUTO 5.9 [facility] Neutrophils/100 WBC (Bld) 68.0 % 43.0 - 75.0 % [facility] Platelet mean volume (Bld) [Entitic vol] 9.6 fL 9.5 - 13.5 fL [facility] TBH EO # 0.1 [facility] TB PLT [address] [facility] RBC 4.55 [facility] TB WBC 8.7 [facility] CBC without diffon Rbc Mcv (Fl) By Automated Count 87 [facility] Laboratory - Hematology and Cell countson 04-08-2024 Hematocrit (Bld) [Volume fraction] 39.6 % [facility] Hemoglobin (Bld) [Mass/Vol] 13.7 g/dL [facility] No Panel Informationon 04-08 [facility] Rubella IGG immune statuson 04-08-2024 Rubella immune IgG 2.[address] [facility] Syphilis Total(Unknown Syphi lis Status)on 04-08-2024 Syphilis Non-Reactive [facility] Type and screenon 04-08-2024 Abo/Rh(D) Positive [facility] HCG ( test) Ql (U)o n 03-27-2024 Interpretation and review of laboratory results Abnormal [facility] Preg Test, Ur Positive [facility] Urinalysis macro (dipstick) panel (U)on 03-27-2024 Bilirubin, UA Negative Negative - 4(70) +++ mg/dL [facility] Blood, UA Negative Negative - 50 Jimy/mcL [facility] Clarity, UA Clear [facility] Color, UA Yellow [facility] Glucose, UA Negative Negative - 2000(110) ++++ mg/dL [facility] Interpretation and review of laboratory results Normal [facility] Ketones, UA Negative Negative - 160(16) ++++ mg/dL [facility] Leukocytes, UA Negative Negative - 500+++ Mychal/mcL [facility] Nitrite, UA Negative Negative - Positive [facility] pH, UA 5.5 5 - 9 [facility] Protein, UA Negative Negative - 2000(20) ++++ mg/dL [facility] Spec Grav, UA 1.025 1 - 1.03 [facility] Urobilinogen, UA 0.2 0.2 - 12 mg/dL [facility] PROGESTERONEon 07-27-2022 Progesterone 26.9 ng/mL Normal [facility] Comment on above: Result Comment: Foll icular phase 0.1 - 0.9 Luteal phase 1.8 - 23.9 Ovulation phase 0.1 - 12.0 First trimester 11.0 - 44.3 Second trimester 25.4 - 83.3 Third trimester 58.7 - 214.0 Postmenopausal 0.0 - 0.1 Performed By: #### P BRETT #### [facility] [address] [place] [address] [address] Ryan Francisco PREG QUANT HCGon 07-12-2022 HCG QUANT <1 Normal [facility] Comment on above: Performed By: #### P REGQNT #### [facility] [address] [place] [address] Dr. Ryan Francisco HCG RANGE SEE BELOW Normal [facility] Comment on above: Result Comment: 5-50 0.2-1 WEEK 50-500 1-2 WEEKS 100-5,000 2-3 WEEKS 500-10,000 3-4 WEEKS 1,000-50,000 4-5 WEEKS 10,000-100,000 5-6 WEEKS 15,000-200,000 6-8 WEEKS 10,000-100,000 2-3 MONTHS Performed By: #### P REGQNT #### [facility] [address] [place] [address] Dr. Ryan Francisco XR HYSTEROSALPINGO EXPon XR [...] CLEMENTINE DEWEY Date: 2022-07-12 12:34 Normal [facility] PROGESTERONEon 06-29-2022 Progesterone 4.6 ng/mL Normal [facility] Comment on above: Result Comment: Foll icular phase 0.1 - 0.9 Luteal phase 1.8 - 23.9 Ovulation phase 0.1 - 12.0 First trimester 11.0 - 44.3 Second trimester 25.4 - 83.3 Third trimester 58.7 - 214.0 Postmenopausal 0.0 - 0.1 Performed By: #### P ROGES #### [facility] [address] [place] [address] Dr. Ryan Francisco PROGESTERONEon 06-01-2022 Progesterone 18.9 ng/mL Normal [facility] Comment on above: Result Comment: Foll icular phase 0.1 - 0.9 Luteal phase 1.8 - 23.9 Ovulation phase 0.1 - 12.0 First trimester 11.0 - 44.3 Second trimester 25.4 - 83.3 Third trimester 58.7 - 214.0 Postmenopausal 0.0 - 0.1 Performed By: #### Johnathon WEST #### [facility] [address] [place], [place] [address] Dr. Ryan Francisco US PELVIS AND TRANSVAGon [...] polycystic ovarian syndrome Electronically authenticated by: CLEMENTINE EDWEY Date: 2022-05-17 17:25 Normal [facility] PROGESTERONEon 04-29-2022 Progesterone 5.1 ng/mL Normal [facility] Comment on above: Result Comment: Foll icular phase 0.1 - 0.9 Luteal phase 1.8 - 23.9 Ovulation phase 0.1 - 12.0 First trimester 11.0 - 44.3 Second trimester 25.4 - 83.3 Third trimester 58.7 - 214.0 Postmenopausal 0.0 - 0.1 Performed By: #### P BRETT ####[facility] [address] [place], [place] [address]LvDr. Ryan Francisco ANTI-MULLERIAN HORMONEon Anti-Mullerian Hormone (AMH) 6.09 ng/mL Normal [facility] Comment on above: Result Comment: For assays employing antibodies, the possibility exists for interference by heterophile antibodies in the samples.1 1.Steffen Wilson Interferences in Immunoassays - still a threat. Clin. Chem. 2000; 46: 8867-8960. This test was developed and its performance characteristics determined by [facility]. It has not been cleared or approved by the Food and Drug Administration. Reference Range: Females 20 - 25y: 1.23 - 11.51 Median 4.70 AMH concentrations of >= 1.06 ng/mL is correlated with a better response to ovarian stimulation, produced more retrievable oocytes and higher odds of live according to Larry et al. Fertility and Sterility. 2010: 94:6195-9536. The current AMH test method correlates with [...] tumor. Performed By: #### A WEI #### [facility] [address] [place] [address] Dr. Ryan Francisco FSHon 04-05-2022 FSH 3.6 mIU/mL Normal [facility] Comment on above: Result Comment: Adul t Female: Follicular phase 3.5 - 12.5 Ovulation phase 4.7 - 21.5 Luteal phase 1.7 - 7.7 Postmenopausal 25.8 - 134.8 Performed By: #### L BCFS #### [facility] [address] [place] [address] Dr. Ryan Francisco LUTEINIZING HORMONE (LH)on 0 04-05-2022 LH 6.8 mIU/mL Normal [facility] Comment on above: Result Comment: Adul t Female: Follicular phase 2.4 - 12.6 Ovulation phase 14.0 - 95.6 Luteal phase 1.0 - 11.4 Postmenopausal 7.7 - 58.5 Performed By: #### L BCL ####[facility] [address] [place] [address]Dr. Ryan Francisco CBC AUTO DIFFon 04-04-2022 BASO # 0.0 103/ul Normal 0.0-0.1 [facility] Comment on above: Performed By: #### C BC #### [facility] [address] [place] [address] Dr. Ryan Francisco Basophils/100 WBC (Bld) 0.3 % Normal 0.2-2.0 [facility] Comment on above: Performed By: #### C BC #### [facility] [address] [place] [address] Dr. Ryan Francisco EO # 0.1 103/ul Normal 0.0-0.7 [facility] Comment on above: Performed By: #### C BC #### [facility] [address] [place] [address] Dr. Ryan Francisco Eosinophils/100 WBC (Bld) 1.7 % Normal 0.9-7.0 [facility] Comment on above: Performed By: #### C BC #### [facility] [address] [place] [address] Dr. Ryan Francisco Erythrocyte distribution width (RBC) [Ratio] 12.7 % Normal 11.0-15.0 [facility] Comment on above: Performed By: #### C BC #### [facility] [address] [address] Dr. Ryan Francisco Hematocrit (Bld) [Volume fraction] 39.7 % Normal 36.0-48.0 [facility] Comment on above: Performed By: #### C BC #### [facility] [address] [address] Dr. Ryan Francisco Hemoglobin (Bld) [Mass/Vol] 13.4 g/dL Normal 12.0-16.0 [facility] Comment on above: Performed By: #### C BC #### [facility] [address] [place] [address] Dr. Ryan Francisco IG # 0.03 10e3/ul Normal 0.00-0.03 [facility] Comment on above: Performed By: #### C BC #### [facility] [address] [address] Dr. Ryan Francisco IG % 0.5 % Normal 0.0-0.5 [facility] Comment on above: Performed By: #### C BC #### [facility] [address] [address] Dr. Ryan Francisco LYMPH # 1.6 103/ul Normal 1.2-3.8 [facility] Comment on above: Performed By: #### C BC #### [facility] [address] [address] Dr. Ryan Francisco Lymphocytes/100 WBC (Bld) 27.1 % Normal 20.5-60.0 [facility] Comment on above: Performed By: #### C BC #### [facility] [address] [place] [address] Dr. Ryan Francisco MANUAL DIFF REQ NO Normal [facility] Comment on above: Performed By: #### C BC #### [facility] [address] [place] [address] Dr. Ryan Francisco MCH (RBC) [Entitic mass] 29.6 pg Normal 26.7-34.0 [facility] Comment on above: Performed By: #### C BC #### [facility] [address] [place] [address] Dr. Ryan Francisco MCHC (RBC) [Mass/Vol] 33.8 g/dL Normal 29.9-35.2 [facility] Comment on above: Performed By: #### C BC #### [facility] [address] [place] [address] Dr. Ryan Francisco MCV (RBC) [Entitic vol] 87.6 fL Normal 81.0-99.0 [facility] Comment on above: Performed By: #### C BC #### [facility] [address] [address] Dr. Ryan Francisco MONO # 0.4 103/ul Normal 0.3-0.8 [facility] Comment on above: Performed By: #### C BC #### [facility] [address] [address] Dr. Ryan Francisco Monocytes/100 WBC (Bld) 6.7 % Normal 1.7-12.0 [facility] Comment on above: Performed By: #### C BC #### [facility] [address] [place] [address] Dr. Ryan Francisco NEUT # 3.7 103/ul Normal 1.4-6.5 [facility] Comment on above: Performed By: #### C BC #### [facility] [address] [address] [address] Ryan Francisco Neutrophils/100 WBC (Bld) 63.7 % Normal 43.0-75.0 [facility] Comment on above: Performed By: #### C BC #### [facility] [address] [address] [address] Ryan Francisco Platelet mean volume (Bld) [Entitic vol] 9.9 fL Normal 9.5-13.5 [facility] Comment on above: Performed By: #### C BC #### [facility] [address] [address] [address] Ryan Francisco PLT 421 103/ul Normal 150-450 [facility] Comment on above: Performed By: #### C BC #### [facility] [address] [address] Dr. Ryan Francisco RBC 4.53 106/ul Normal 4.20-5.40 [facility] Comment on above: Performed By: #### C BC #### [facility] [address] [place] [address] Dr. Ryan Francisco WBC 5.8 103/ul Normal 4.0-11.0 [facility] Comment on above: Performed By: #### C BC #### [facility] [address] [place] [address] Dr. Ryan Francisco FREE T4on 04-04-2022 Free T4 [Mass/Vol] 0.99 ng/dL Normal 0.76-1.46 [facility] Comment on above: Performed By: #### F T4 #### [facility] [address] [address] [address] Ryan Francisco TSHon 04-04-2022 TSH 3.086 uIU/mL Normal 0.358-3.740 [facility] Comment on above: Performed By: #### T SH ####[facility] [address] [address]Dr[address] Ryan Francisco US PELVIS AND TRANSVAGon US [...] weeks to document regression. Electronically authenticated by: RONNY MIXON Date: 2022-04-04 16:38 Normal [facility] Auth for Release of Medical Recordson 12-20-2021 Auth for Release of Medical Records [id number]# 1.00CD:127 Normal [facility] Coding Summary.on 08-22-2021 Coding Summary. CD:[id number] Gh0bWw+PGhlYWQ+PE1FV QVyB66ebFSyhS8BK0tNU X1MLQKWIYQZEU3ERX0jz NT6CMehP5FjodHy NluijWRdLE58ITd6MFM1 gMucENkwlT9cbHIjS5f1 PxFtTJ52yY97DQwsEPZz AwE2CrUwkuibdTMr A8dgJvBwzJFwEew+PHRh YmxlIHdpZHRoPScxMDAl BiJiwXxzBY4mXn2xAWGy LWNvbGxhcHNlOiBj k8voPEFuXPaqGX7nnSmv S6InfDY5MPMeb0q7Tr51 dHI+LCTkIUO5oJgnBDcq r399MeReo7dxUJW1 sALfYKlhETQ8D05uu4V4 VEEwPBJmGCR9hJH3iL2u yNqjmcenT4YloOAbPkD1 QIW6sIPfhB4igVbl qtlhjF6oCti+V97GQZ8T IPUCYD7GAyg3P5YjXyax dHI+CW88NIWcFC29cJIj gWTww7zthBw0HcNw RWWhZFB4wTjkPVcxh6Qn KRAeC55qgVLaz0O0PJWf uYzqsUTeUyQqyZI7nA6x NLyyfqoyf6gbyynf Hdmay5isvs01jS51H31g DGbgGYLsEEA2EVWkJHPk oXhyfx4pdR8mTv5+IDxj x8eol9ymeVl3WpOp MGTfrbZezNbpUHK1k7Hm Mb56M9WxuLqve8AeJos3 bd05tEMqv9U2kJF7HGug NVCjbB5jFXimQmW8 ZNBmKvBepV43bZRuXSmm Zi6muFctxOvpCJ7wGLNh vsltAXKdjE7yLSDmfRAg cZviAP8qJQHffeet s993UlFmOZL4CXLadLWs J0QkaQ6cKxVrFYMkKMKj W4XreHKyBCjfS099EDqg HnQ4WTGsayHoL6Zr PFVkeCseExD2q0D7Rx4P e6OpfzzoSDS4EPrtZOOd GhY6PgSzKlB8X1DrKfq3 UNSpzSqxOZ9wK7Tm BVPpzzahepvdbZE1KVMd CTHauG70cGZiVThzEx9m t0T9p222DKYqYAUrmE51 Zh0szIygNZJmaPWX vM2xqdfzm9tfxelzCeNu GBPeLMc6WRs0NGQpoFwb ZsYpOCB7KtL1UZU5aEJo jJ0oqNrxjmdbhX8l Oyc+G50vtA4gOVG7CHU7 waoyLVCifwFgFS09FW87 V2WaXowrgMLnfUN+PGRp qmLzgMkxTH6oAeUp m7ivu1GzRHezF0SfKHJl XDguUdh1TYDpSJL1lLL1 xB8mMZDqAJnwm6F6tWH0 K6CrtmEtrh5qd5wy WCZsUVkzU74acREwr1A6 NNWmfAG1GHAacBwkEeDj vT32Tse+QYSbnGitf4Dy Gsmxc8mor5htmIj3 IjMwJSIgdmFsaWduPSJ0 g1BpUh55W25zDQwjRVRh MNKrWNCuEKMhmHvloa8z tF0bXy0+PGNvbCB3 oUY3cD8pCDEzRfG9HBuu C494LaEhyJCkYpaki1xm z8qdbDw9OsLlXHAgsvLm rQyiJAJ4p9LbJo41 B26xKMyaHSMnATXeIKDy JCNffJwynl9noM6fDd0+ XJ1bt5rkxs88iV79vQU+ MNJlKYS1bApkCIhf XQXoyT3wTVyeWtV6CCPn AwEkmU25qZUvUGvwKl7d vEcosLkkCQ2rMLJsamvd s483TrRqv2pcFACn qKTnGWxmARB4Z91vo1N5 MIFmWLRmENC5pHF7aK2h bGlnbjogbGVmdDsgdmVy jHsrARgwFZrcI797 IHRvcDsnPlBhdGllbnQg XpGzFBe1X6UqUbc7JOAq jUpaDI2anJXwESsjIe7a yVgjlDoaHM3vCWQh rbgvq223YdIos3goAMPk uPIhHPqxNAX5O60lb6K0 WBZpEUUtIXS9cEJ3hW1m bGlnbjogbGVmdDsg ezGbzXfmYYcyNMcrI801 IHRvcDsnPkJpcnRoIERh rVU7DF01WY68kWMwz1F9 xQG3C0XzTBKquwzj spqaySP3ZWLdUXOoxB68 Gp0oiEyxZu8tQQHzDZC9 FUFydUQaR9SwuJ3sYhDc YWTeFLCaK1XagCTs QGneJ112NVweQjN8ILGr hnBsR7BkZZIpsGxyUgI6 g1H7Lo1NP5P7QS51OL11 uEGkr5J3uYO7E3Rw PBTehibbinaolNO2UJSz XJHeoP73Wt2nqVgtPz4c PITjBEO8LXIsjCFjK3Zf uC7eJdGqZMYnLYPw G1VtqUAlZAzyN854KIuq GcW2IFFrasHmW8NdBGHq wVprZdJ5a4X5Xv6FWSx1 AD47QS53mMRwt0E9 vMK4P0ToPCIajofqixfc yUZ8ZTMuYJEqmG94Vu5t uPpbOj2oZTIrUDA2NBTz eLArN5BsrS1tIzEn IFUvWKMrC9DjcLAmODsv P335GBgcJaD2VOFisbNo L1EmRXOuxRonOaD8q7B3 Uy9YGCCnHU27EBI1 gSC1FD19QM69M4GvVtrw dGFibGU+PHRhYmxlIHdp ZHRoPScxMDAlJyBzdHls KX2hLo2jRMBeAMBn yPevrLKlLvQfw3wxWIXc JEjtTM2pjLufD2VccXU1 ITMjh1t6Lb07R70sR2Vg dXA+FPUqwFN6uLT8 tU3tAmNuSkC2UOqlK252 LiAkuPVhMmfeq3kgy3ys rBc8JoC3TMYwjkMemTyk IQJ6s6TdQa47Q57o IHdpZHRoPSIxNSUiIHZh yHuswb0nwB4yRx1+PGNv mFU6xOK1kX5jHxKhIcJ9 DVzhI151TnLqhLPv Rilaf7tzm0wyjXs2QdIv ZAKolvRarYlvXZK4s9Rn Wq03U2TztAlsu3LtQik0 ak88jTWda0C2uCJ5 O3WlARRdjvkaeQMofUai GU7kYXAfmixbRCNulS0w DPZoZ8j0LkKpJiM7ZVad Y6IhqrM3WQLovLXi KDnqYGM7K70uk4S2AXCl NOJbODS0kXY7iM8xoIqu bjogbGVmdDsgdmVydGlj HQtoPSxyF243LDUs oNrjSJTpsF3gUIJckTLj yQpaJX8lLWOzmyulXyvT VSGhTMjRREQSZN52IW29 eOQqw9E2mLP4C0Qk RPPwgzwxikjpeIK7CPIp KAPcxO61jHVuULrkOi1b f4C7x867ICHfUQAjoN72 Dz1mzFmjVPEqmYIV qV4fmoiiu3ldrmskXjIh YCAiIRn1KBk6UDIvrIsm PzWfZZO0AcC3DKJ5aGDq tB0mrQotiztmbC5y Oyc+EWKjXiigZVm5EKfn dGQ+DCTkTMC1jIzbPLao MLItwJ0rWBLqE3m6XgLs QpX5QWxgT1KiPDXh aduiCw59xJ7bWqPtQeU2 VJivQ4OsuzW4ZFDrnJDz GQarLBZ2K01vi5Z9EJGe ZHZvWSL1kTN8tL3e bGlnbjogbGVmdDsgdmVy vRhjWWgoIXzzR761DBMy wYtgAyAlXOmrILPtOI83 IH55iIPhx2J7aNR3 Q8ZjFJPaxskdxdunfTS6 SWRnQZEfiQ14dFUhYHdp Bi6mn8N9q403OKIhLUAw kV61Ci5iwCjbZXSf lKNJfQ6tetnru9nshccl GaRwBQGoSHp4GFc2XPSi eWjpLvFxHTA5KdE4RPA5 nGGnjG6qlSuetbvt dL2mNov+MiHeOWsoKU09 MO72cJSox3P6eVJ6H2Fv TUHvmlsyvksfyXI5UYVc MDGdxF94jQWsVIks Zj4yp3T8z949HWUyGHVm aK54Cd0wjZfjXPWtqQOA uA1rknhbu5ogzxkhPlDs ZQUbLUa1YPb9DLHs gPwpVgKtJKB8PvF3UCW0 wRTnkI6dmLlhbzadmO1l Oyc+D7S7lLU3xUGeeYqu dGQ+BJ99hj57A3Yx RysdEsr6KIWvHLZ9xGB5 gF7uUZDmWBzyi0W4uHB4 A1HrbvKqii7ml6ppNXTd SXqhG20uzIZyw8K8 ZGPjkKO2SIMcgZimFpIs dL20Zhf+TBQjtYoea2Xj Ivztc5zgb5dpjUv7DvYn JSIgdmFsaWduPSJ0 q2PiFc71L56bXImyNLNv IOUgUXKnHMKudYidin0x qN8sYq4+XTAsvCY1bPT3 mG2tVgXcHqY9COxf F807EfKydCOoYdpqi2tb d7sypUb3QlUnMVPdfnJd qMmoVPE1m2KyPn83Z1Wr kLxtq7OfSuw7hu26 pUQjk8T9eLU9U0EwZLTs wxjawOLjqSwmJE9uRYDx vwawIUBpuL0kNYYjW9g5 EeMpZbM0SPnyF1Ou omL9YKHbtOVjQHJkqUPE bZ0zfsxsr4nxwuzjIcOu ECDuUVn7UTn3MZPpmYjz NyDwWYB0IyW2VZP9 dXXxvB4nyKxnsiewbX5n Oyc+BCw9r8nguQOaDZ2w cCT6CY70PN46oKRpf2W7 kKX4L1DpSTQoziwr pvlqpCD9ZLJlDTRsiA42 Gb3ueIutSz5jKJRwDEH9 YTUkfNStG6JskN3kLaYm GANmRUSfT4UcwATk RMuqK079YHvsFqS8WWPt cuCgA9XkJNVagUliXmE7 j4E1Iw3ZAC24XG91EM30 cVAxm1K4iBN9K1Ns HKGtbcctuplyqIF6POCc TEHsdA40Ii5wjXmpAj2j MZLuIAW9WDQjtIAoP4Qn hU2lVcHfFAZrNWLq C3BtnOHqISjbT169AQsc DxW9IJFudwHcS2BaNOSm tPifOxI9j2N0Wy9RHm95 PC45MJ43aFSle7I3 nWJ5W7HdTWZmulkdumri eHH9KZVwGCIzwS51Ik1f pVlbNr1qYQPaCGM1ORXm jEFzB4IdoD4fJjQs JZYwUIWaZ6MsyNLtTLij H520VNyhYiI6IDZdtpFt H1AoJCQabRceFuA6w5A7 Pn8GPRiqyrg2E1Us PjwvdHI+PF41MNRpZX65 fASncXHgx5wnhXl6IhJs LJJdHHV4uPrfKRccn6Hf DSDuE89gjRLnx6S5 IGNv (more content not included)... Normal [facility] Coding Summary. CD:[id number] Gh0bWw+PGhlYWQ+PE1FV LMaX28eiABkqV5ZR2tTN W7BJBOGVXQBHT9HCC3iq VL7OXxzX8KghlZz QxxrxCAiLD72LHv7MES0 vJbkIRnbdW2dzXXdI2w8 MgQlNA17cE71XPquHXVg ViY5YsLrolkklQTs M5adYvZszLEoUdz+PHRh YmxlIHdpZHRoPScxMDAl UlXodOcpGI2jTb1aLYFp LWNvbGxhcHNlOiBj p1lmKRSkKBkrNI7dlAsb Z6QouJW2GKLuc1o0Cl81 dHI+QORpZOT5oMsxEGkk j536XiZxp7rwKHN8 xCLuVRimIKR4L28ih3J2 BAWwTDKzGLK7aQN4kP7h hGtqjhvcD2RbdYGaDwW5 PCP9aHVqsO6waAec cddrbG1lYlh+T63PBE0I SCBQBE2SGyn4R9XjPhla dHI+UZ39CAKjTJ95iDTw lNTzj5vtnKm1DqCk TMLmCOU3yIesCEzrn8Mx ORIyC75jgGCal8T7BCMj vFzifWJuJpNmfEQ0oB3d LWvvuemgc9lbofjp Yosrq1uhly48bB37I83o LJkuKGCpDFI0PGHeSWFi qLjuks6edL0oOt7+IDxj o4xoz7epoXe1JsAe CNXolmYyxFffBFK8a2Ks Oe35Q9RdhHntp4TdVoy0 bq82vANcp3F2gLK0NGfb LLFoqS3kGUcoVwC5 KIFwHiLpbL86pQHvTUrq Ox3eqFsnzYqpDH0cCEZr srkeRLZngY0aQUNwjNEw bChuGU7gEHPpahmm q462RjZxPDG8IIVdsWQf R3GmpX2jEsYzQHWiGEGq Z9FfhYXlYNdgY933QOpm GoE3RPLgasXlZ1Dc QJWdzUmkQrK3y4E8Pz0W g8FovlisYON3HBlfKUWe DkB5ZkYrJcI5S4BzRcd3 AXZhtEceCJ4rY4Bn PQIvilkchiigiIT3FWIq NPEgtI44fDAhBLygWi9z d6Z2p024SOVkPZSozB58 Es4ntNraCLClkIEA yL9qamhtd2rutaysCmHk QYPbFCh9WFe2SCNavJhj LcClHMO2YiY1YSI2wSSb eO0rbIvxltcsmN0z Oyc+B37diZ9rQNT3NWP9 fnzcPUTlhcZgNT82XS32 H7XmDkppgSBfcIN+PGRp ovZkcBllNV6lKhSx c9nhw2MdTIglC2BlESGj XKxxLyt1GUAvGES6dXF3 nG0kXTDaDIjqz1K8zNM4 Y4FwonTrlu5dh2bu YUDzVPjfQ02vvGPgg4U2 AQEytIE8AVVkxVarJaKv qK29Ixo+AYKwmKjtk1Mj Ggfaj1ijj0fggQz0 IjMwJSIgdmFsaWduPSJ0 g8FsXs83B91qKLpdUQRw DSPcUYXpEOZyhEsfyh7k dW3cTc4+PGNvbCB3 tDU8uA9aKDWdXzB3HLlc W915RcWbnDFcQdlmw0qh c0plaLi5LaLyUKRepkEp zNmvSTB9j1DvHl16 W62eDZfmTWIbOFQjYMPr LTNdtQqjql5qoH2oIm5+ TV7uk8rxad96hY97oJT+ HCHuNLQ2tSsxOUxk MYLlhX7bOBqlUfU9LJMo DcPueM36pZLgLCaaXl3a hCboqNvhPH9wXBGmhvcr c278GkMyn1jnUMXa nERfYGzaOFD8M68ue9L6 UWKlMZYwVBQ0tKE7pQ4m bGlnbjogbGVmdDsgdmVy pVqgGDwnYSxeF974 IHRvcDsnPlBhdGllbnQg WaKdUQk7O3MgDxu0BLIu xFbhYM2yaUHkYOkgBt4u gWyhmWqbRK4wDAWu lsnkg325ZpFml7gnRUJa cTUhEXnwBHL3N69zx3N1 PDTdBDVlVIE1aTQ8xJ1s bGlnbjogbGVmdDsg pkSomVlxHYafLFzmJ409 IHRvcDsnPkJpcnRoIERh sLV7TE27QZ99tSDiy5U9 rQM6P0TkZRQqafpf lhuwuUX1YWMrCMXncR37 Gk3pqHsqTu3mXNFvTIL8 GBNumMAxU2CqzW6iHdTp DQVyTONpL6FmlIEy LBbxU536HKqzGfB0XJYd adFaK6UuYYXfxKenNgQ9 p9H0Ss9EP7B1YE25ON55 uIEwr3S0jRN3Y4Jh LIDqvbstzqfxkNN0ZNBl GDEkqF30Pt5esBmmPd0u UDAbVMR8XALbqQCtP7Ge bQ2eHdJuDLBdVDDu F2NsvUKzJPwmA362IQgs FbB8XRQqesNcV3OaWVPp pQssHhQ2f3W4Be6OHBm9 EY45GP55fLCjh2O8 zWJ2W5EoPSJjazaoyqmv rCA4NEMqLXIbeN84Rb3q qLndVm6oIWDsMRU5SQLy kPDpQ6DjvG2fJqWu LSVpURIaX5AovGPqACli D212MDhmVlX6TVYibkIh T8JhNYKawZytRnT6e4M3 Kh0LEGMuQA77HRR9 lEF5LJ85TZ40N7JoYebc dGFibGU+PHRhYmxlIHdp ZHRoPScxMDAlJyBzdHls KM2hWb2zACLeRBQi jGmlaUNhTdVfu6hsUIHq LLzgDP0bmYliL9QciKH6 YYKqq5r8Tn78R08fS9Fj dXA+TWYchGT1zVD1 iW1iZdXnMeI4FLymU020 BsWenJTjBnrom8gjy9ni qUb2MhY5TZOihhFvfItu OCP6b9BfKo11Z18u IHdpZHRoPSIxNSUiIHZh rVgvam0syA0tLo3+PGNv sCC7nSN6hA3tGzTzFbW7 RExmT582RoThzBEi Kzzpl9zdm0ktvOg6CpZn XQZrviBwqYqxOTA0t7Jh Ci04Y5NejBkwr5QeGgh2 ec18lJPzh0B6eCE5 I2JtQWVndzepnINtcVfm NR9rLIFlhdrjUORliL4y QARbQ4d4YaAsNiL5TFlu J3FavgC9UVOedOFc GKllANK7H80fb2P4XIDk DKLuJZO3sOD2oY8fsHur bjogbGVmdDsgdmVydGlj QBmyHLzwV870YOXb jIxrERUkeN7lHWZugHQa zXnbZQ9sNACkuiaqZgoH ROHyMKbVIJYYDG45ZW23 wMDpw2V2uNY7F3Zl XTChixzblikclGG5SFSg GIPccL14kDOmVGvrTn3p i2U0j998ZNOfYSAayQ02 Zk6gjAlpVCRmgKRW uP8lgtskw0timciyDbDu HBZaCCm0XKc4TJOqlIbf DyHqTQD5PfG3HHS7sTJt dO5yaYsvbcxgnY2d Oyc+VMPwKdstHWp8CGmx dGQ+ZZPkNBD9xWtnCWkj EGOnkO7mCGKyP2t0PkKr FeU6AVctW6MeZYQu kyjrMk46oW5wApAyVjL1 YIwlT7KuljQ9ZGWubCRm KTdxLLI0U52pw3Z3GHXm WFEcHAB3lMJ8cP7w bGlnbjogbGVmdDsgdmVy gOykHVelNNosW589FPPz oQlnMjEmLMahJHVaOW36 EI99cGGou6B4rUN5 C6QoEYZsppiiezmhpQO3 SABfQZOklO82oZTeOIyx Vc4ph2F1v427MHIeVCFg fF97Jx3ooVpmXUWp aVBUnL0rpsqta3wsgjsh ZkHpQKFdPRt3XHi6CHZm sLrxNkEbMDN5OuL6JAG7 wHUjnT3ctDnkwxbo kT5lNyo+NnDwRWkjDK29 OV26kEHqj9W3mLY3F6Gh LNYplhrerobjxKF6SHKb VAOsiD03mTTgPVjs Kh6zz7U8t746XPVtWSEe kS43Bg1cbBycGTEkbTWI rX0scowsl5cajpnaJwTj QJSkONp1COg9XJIw mHklJdGiGXN6CmL5TXU7 tGMxyU5pqAyrdzojdM7j Oyc+EJZqFQXci1Yze5Jr YP60NO78K8GxRmeg dGFibGU+PHRhYmxlIHdp ZHRoPScxMDAlJyBzdHls FA4kXd6gUJCbLDMqxOjy cBEgUuLpm4piOVNb IDtfYW1lyPhqH7AlaXF1 GNTqz9r4Ua83C23zY3Ik dXA+EXAmhHC8zSP2dM0w AoRqQxL4IIakE528 TzHulVAxAdabc5paw9if sUv9BdLbNUTzwsQadKhj XQH0l2JrDj67R13tGYba ZHRoPSIyMCUiIHZh mVximy1agP2kIj0+PGNv iBC6oVJ9xY4oQlRdJuD9 NTgwA636PhDqtBBnTnhc V74pN2HgiXH+PHRy Inl4IGZtsNlgPE9dsPEx CRxuMg0iYNJ5OwJwVgRa BUwlJ4UiXXOehtulmjss fYK8RKXyVHNwwD35 Ug9boIydHk4gVNCmKLM7 UAZmzEVuE6BpzG9zQeZm QHPoZABtW0GyiFNnRHzo F923KUhmYfX7NYWv erKkL7XhPHKjoYeaHcS8 b0X3Rl2ZfKtbyQJpRE5a PlEaUYv0U4TcNyy6USUt eDhjXH8tzZYwVEqa Lw4ehMnvwMhxWX0uYZVo mkdqk085XxCbw2ceGANy fKZaCGgcOVC9V10ng7D0 OQUmDQXtMJT0aXI5 pJ6wuPjxhqrecTNlvUcm yxArfYjwVNoqDMvpY928 FCFwqGdoHiVTZnp1V0Ba Ysj1XYQeyBjqRF9q nZXiDVhtXh2eiXdfiItv TW4wVHVdiimin098PpEb b0wlEEEibCQvYCjuRXD1 D22gf7V8TEIrFQHg WOA2eWC2cM2tpKtokqyi bGVmdDsgdmVydGljYWwt ZLczS450OKVnqYieEr2Y Ede2C3YeEnu4ZNYq fXedAL8dyVJlKFgtAr5u qZgdnVxvXA2qJJUekomo r805DvOnk9ygTJBhyKQn PEemIMK5C95fl2V8 NSNvERMpXFO6fLK4rP6o bGlnbjogbGVmdDsgdmVy lPaqWYbjMRveU562UGLg cDsnPlBheWVyOjwv dGQ+ZH62dv39E5BoIhia Bbu3KTNvKES7uHA5eJ6j DZSrZZojh5A0lGU6V3Zr nqSkfe9uv5agFGWj ZTog (more content not included)... Normal [facility] PAP [id number] 08-15-2021 Cytology report Cyto stain Doc (Cvx/Vag) Note Invalid Interpretation Code [facility] Comment on above: Result Comment: TEST S RESULT FLAG UNITS REF RANGE LAB Clinician Provided Cytology Information Source.............Endoc[employer]ix No. of containers..01 ThinPrep Vial DIAGNOSIS: 01 NEGATIVE FOR INTRAEPITHELIAL LESION OR MALIGNANCY. Specimen adequacy: 01 Satisfactory for evaluation. No endocervical component is identified. Performed by: 01 Sujey Engle Instructor Tap Dancing ([facility]) . 01 Note: Note 01 The Pap [...] High <-Panic Low,>-Panic High,A-Abnormal,AA-Critical Abnormal Performed at: [facility] [address] [id number] Mar Rivera MD, Performed By: #### 1 [id number] #### [facility] [address] [place] [id number] HPV 16+18+31+33+35+39+45 +51+52+56+58+59+66+6 8 DNA Probe+sig amp Ql (Cvx) Negative Invalid Interpretation Code Negative [facility] Comment on above: Result Comment: This nucleic acid amplification test detects fourteen high-risk HPV types (16,18,31,33,35,39,45,51,52,56,58,59,66,68) without differentiation. Performed at: [facility] [id number] MD Nicole Manuel Performed at: =[facility] [id number] MD Nicole Manuel Performed By: #### 1 [id number] #### [facility] [address] [place] [address] Insulin Lvlon 08-11-2021 Insulin Qn 24.3 u[IU]/mL Invalid Interpretation Code 2.6-24.9 [facility] Comment on above: Result Comment: Perf ormed at: [facility] [address] [id number] PhD Archie Jha Performed By: #### 1 [id number] #### [facility] [address] [place] [address] Consent for Treatmenton 07-29 Consent for Treatment [id number] #1.00CD:127 Normal [facility] Glu Fastingon 08-10-2021 Glucose [Mass/Vol] 95 mg/dL Normal 55-99 [facility] Comment on above: Performed By: #### 1 [id number] #### [facility] [address] [place] [address] Physician Orderon 08-10-2021 Physician Order [id number] 2#1.00CD:127 Normal [facility] PAP [id number] 08-09-2021 Collection Technique BRUSH-SPATULA Normal F [facility] Comment on above: Performed By: #### 1 [id number] #### [facility] [address] [place] [address] Gynecological Body Site ENDOCERVIX Normal [facility] Comment on above: Performed By: #### 1 [id number] #### [facility] [address] [place] [address] Physician Orderon 08-09-2021 Physician Order [id number] #1.00CD:127 Normal [facility] Gynecology Office/Clinic Not pratik 02-17-2019 Gynecology [...] Family history is negative Normal [facility] Comment on above: Result Comment: Elec tronically Signed By: Shamika ISAACS, Kaley Wilson\.david\Date and Time Signed: 02/17/19 12:09 EDT Gynecology [...] 02/17/2019 Family History Family history is negative [facility] Comment on above: Result Comment: Elec tronically Signed By: Shamika ISAACS, Kaley Wilson\.br\Date and Time Signed: 02/17/19 12:09 EDT Vital Signs Date Time Vital Sign Value Performing Clinician Facility 08-12-2024 11:08-0500 Body mass index (BMI) [Ratio] 34.93 kg/m2 Luis Yobani DO Work Phone: [facility] 08-12-2024 11:08-0500 Body weight 86.64 kg Luis Yobani DO Work Phone: [facility] 08-12-2024 11:08-0500 Diastolic blood pressure 80 mm[Hg] Luis Yobani DO Work Phone: [facility] 08-12-2024 11:08-0500 Systolic blood pressure 120 mm[Hg] Luis Yobani DO Work Phone: [facility] 07-20-2024 11:00-0500 Body mass index (BMI) [Ratio] 34.39 kg/m2 Luis Yobani DO Work Phone: [facility] 07-20-2024 11:00-0500 Body weight 85.28 kg Luis Yobani DO Work Phone: [facility] 07-20-2024 11:00-0500 Diastolic blood pressure 76 mm[Hg] Luis Yobani DO Work Phone: [facility] 07-20-2024 11:00-0500 Systolic blood pressure 122 mm[Hg] Luis Yobani DO Work Phone: [facility] 06-22-2024 14:31-0500 Body mass index (BMI) [Ratio] 34.2 kg/m2 Luis Yobani DO Work Phone: [facility] 06-22-2024 14:31-0500 Body weight 84.82 kg Luis Yobani DO Work Phone: [facility] 06-22-2024 14:31-0500 Diastolic blood pressure 78 mm[Hg] Luis Yobani DO Work Phone: [facility] 06-22-2024 14:31-0500 Systolic blood pressure 124 mm[Hg] Luis Yobani DO Work Phone: [facility] 06-15-2024 10:27-0500 Body weight 84.82 kg Hugo Rodriguez MD Work Phone: [facility] 06-15-2024 10:27-0500 Diastolic blood pressure 88 mm[Hg] Hugo Rodriguez MD Work Phone: [facility] 06-15-2024 10:27-0500 Heart rate 99 /min Hugo Rodriguez MD Work Phone: [facility] 06-15-2024 10:27-0500 Respiratory rate 18 /min Hugo Rodriguez MD Work Phone: [facility] 06-15-2024 10:27-0500 Systolic blood pressure 137 mm[Hg] Hugo Rodriguez MD Work Phone: [facility] 05-25-2024 11:46-0400 Body mass index (BMI) [Ratio] 33.84 kg/m2 Luis Yobani DO Work Phone: [facility] 05-25-2024 11:46-0400 Body weight 83.92 kg Luis Yobani DO Work Phone: [facility] 05-25-2024 11:46-0400 Diastolic blood pressure 74 mm[Hg] Luis Yobani DO Work Phone: [facility] 05-25-2024 11:46-0400 Systolic blood pressure 118 mm[Hg] Luis Yobani DO Work Phone: [facility] 04-27-2024 10:35-0400 Body mass index (BMI) [Ratio] 33.75 kg/m2 Luis Yobani DO Work Phone: [facility] 04-27-2024 10:35-0400 Body weight 83.69 kg Luis Yoabni DO Work Phone: [facility] 04-27-2024 10:35-0400 Diastolic blood pressure 76 mm[Hg] Luis Yobani DO Work Phone: [facility] 04-27-2024 10:35-0400 Systolic blood pressure 122 mm[Hg] Luis Yobani DO Work Phone: [facility] 03-27-2024 10:27-0400 Body mass index (BMI) [Ratio] 34.53 kg/m2 [facility] 03-27-2024 10:27-0400 Body weight 85.64 kg Nom Nurse [facility] 03-27-2024 10:27-0400 Diastolic blood pressure 70 mm[Hg] [facility] Nurse [facility] 03-27-2024 10:27-0400 Systolic blood pressure 120 mm[Hg] Nom Nurse [facility] 01-02-2024 09:15-0400 Body height 157.48 cm [facility] 01-02-2024 09:15-0400 Body mass index (BMI) [Ratio] 33.9 kg/m2 [facility] 01-02-2024 09:15-0400 Body temperature 100.2 [degF] [facility] 01-02-2024 09:15-0400 Body weight 84.08 kg [facility] 01-02-2024 09:15-0400 Heart rate 115 /min [facility] 01-02-2024 09:15-0400 Respiratory rate 18 /min [facility] 01-02-2024 09:15-0400 SaO2% (BldA) [Mass fraction] 99 % [facility] Encounters Encounter Date Encounter Type Care Provider Facility Start: 08-26-2024 End: 08-26-2024 Clinisync Result Encounter Luis Yobani DO Work Phone: [facility] External Department Unsolicited Start: 08-26-2024 End: 08-26-2024 Clinisync Result Encounter Luis Yobani DO Work Phone: [facility] External Department Unsolicited Start: 08-12-2024 End: 08-12-2024 Bamboo flowsheet Luis Yobani DO Work Phone: [facility] Start: 08-12-2024 End: 08-12-2024 Bamboo flowsheet Luis Yobani DO Work Phone: [facility] Start: 08-12-2024 End: 08-12-2024 flow sheet Luis Yobani DO Work Phone: [facility] Comment on above: 29 weeks gestation o f ; Third trimester ; Gestational diabetes mellitus (GDM), antepartum, gestational diabetes method of control unspecified; Encounter for in vitro fertilization Start: 08-12-2024 End: 08-12-2024 ambulatory LUIS YOBANI Not Available Start: 08-05-2024 End: 08-05-2024 Clinisync Result Encounter Luis Yobani DO Work Phone: [facility] External Department Unsolicited Start: 08-05-2024 End: 08-05-2024 Clinisync Result Encounter Luis Yobani DO Work Phone: [facility] External Department Unsolicited Start: 07-20-2024 End: 07-20-2024 Bamboo flowsheet Luis Yobani DO Work Phone: [facility] Start: 07-20-2024 End: 07-20-2024 Bamboo flowsheet Luis Yobani DO Work Phone: [facility] Start: 07-20-2024 End: 07-20-2024 flow sheet Luis Yobani DO Work Phone: [facility] Comment on above: 26 weeks [...] Hugo Rodriguez MD Work Phone: [facility] [place] Comment on above: 21 weeks gestation o f (Primary Dx); Chronic hypertension affecting ; In vitro fertilization Start: 06-15-2024 End: 06-15-2024 ambulatory [facility] Start: 05-28-2024 End: 05-30-2024 Clinisync Result Encounter Luis Yobani DO Work Phone: [facility] External Department Unsolicited Start: 05-28-2024 End: 05-30-2024 Clinisync Result Encounter Luis Yobani DO Work Phone: [facility] External Department Unsolicited Start: 05-27-2024 End: 05-27-2024 Chart abstracting Hugo Rodriguez MD Work Phone: Maternal- Medicine at [facility] Start: 05-25-2024 End: 05-25-2024 Bamboo flowsheet [...] Not Available Start: 01-02-2024 End: 01-02-2024 ambulatory [facility] Work Phone: Start: 01-02-2024 End: 01-02-2024 Patient encounter procedure [facility] Work Phone: [...] Date Procedure Procedure Detail Performing Clinician Start: 08-26-2024 US OB BPP W NON-STRESS Luis Yobani DO Work Phone: Start: 08-12-2024 Urnls dip stick/tabl et rgnt [...] malign ant neoplasm of cervix Pap Smear [facility] Start: 06-15-2025 Tobacco Screening Tobacco Screening [facility] Start: 08-27-2024 End: 08-27-2024 Patient encounter procedure 08/27/2024 11:40 AM EST Routine [facility] [address] [place] [address] Luis Hiltno, DO [address] [place], [place] [id number] [facility] Start: 08-27-2024 End: 08-27-2024 Professional / ancillary services management 08/27/2024 11:00 AM EST Ancillary Procedure [facility] [address] [place] [address] [facility] Start: 08-12-2024 End: 08-12-2025 US biophysical profile w non stress test US biophysical profile w non stress test Imaging Routine Gestational diabetes mellitus (GDM), antepartum, gestational diabetes method of control unspecified Encounter for in vitro fertilization Expected: 08/12/2024 (Approximate), Expires: 08/12/2025 [facility] Work Phone: Comment on above: Expected: 08/12/2024 (Approximate), Expires: 08/12/2025 Start: 08-12-2024 End: 08-12-2024 Patient encounter procedure [facility] Comment on above: Arrived Start: 07-20-2024 End: 07-20-2025 CBC panel - Blood by Automated count CBC Lab Routine 26 weeks gestation of Diabetes mellitus screening Expected: 07/20/2024 (Approximate), Expires: 07/20/2025 [facility] Work Phone: Comment on above: Expected: 07/20/2024 (Approximate), Expires: 07/20/2025 Start: 07-20-2024 End: 07-20-2025 Measurement of glucose 1 hour after glucose challenge for glucose tolerance test Glucose tolerance, 1 hour Lab Routine 26 weeks gestation of Diabetes mellitus screening Expected: 07/20/2024 (Approximate), Expires: 07/20/2025 [facility] Comment on above: Expected: 07/20/2024 (Approximate), Expires: 07/20/2025 Start: 07-20-2024 End: 07-20-2025 US for US OB SCAN FOR GROWTH Imaging Routine PCOS (polycystic ovarian syndrome) resulting from in vitro fertilization, antepartum Expected: 07/20/2024 (Approximate), Expires: 07/20/2025 [facility] Comment on above: Expected: 07/20/2024 (Approximate), [...] End: 06-15-2024 Patient encounter procedure [facility] [place] Start: 05-25-2024 End: 11-23-2024 Alpha fetoprotein, maternal Alpha fetoprotein, maternal Lab Routine Second trimester Expected: 05/25/2024 (Approximate), Expires: 11/23/2024 [facility] Comment on above: Expected: 05/25/2024 (Approximate), Expires: 11/23/2024 Start: 05-25-2024 End: 05-25-2024 Patient encounter procedure [facility] Comment on above: Arrived Start: 05-05-2024 End: 05-05-2024 Professional / ancillary services management 05/05/2024 2:30 PM EDT Ancillary Procedure [facility] [address] [facility] [address] [facility] Start: 04-27-2024 End: 04-27-2025 US Pelvis transvaginal US OB transvaginal Imaging Routine Encounter for screening for cervical length Expected: 04/27/2024 (Approximate), Expires: 04/27/2025 [facility] Work Phone: Comment on above: Expected: 04/27/2024 (Approximate), Expires: 04/27/2025 Start: 04-27-2024 End: 04-27-2024 Patient encounter procedure 04/27/2024 10:20 AM EDT Routine [facility] [address] [place] [phone] Luis Hilton DO [address] [place] [address] [facility] Start: 03-29-2024 COVID-19 Vaccine ( season) COVID-19 Vaccine ( season) [facility] Start: 03-29-2024 Influenza vaccination [facility] Start: 03-27-2024 End: 03-27-2025 ABO/Rh ABO/Rh Lab Routine Missed menses Expected: 03/27/2024 (Approximate), Expires: 03/27/2025 [facility] Comment on above: Expected: 03/27/2024 (Approximate), Expires: 03/27/2025 Start: 03-27-2024 End: 03-27-2025 Blood type and Indirect antibody screen panel - Blood Type and screen Lab Routine Missed menses Expected: 03/27/2024 (Approximate), Expires: 03/27/2025 [facility] Work Phone: Comment on above: Expected: 03/27/2024 (Approximate), Expires: 03/27/2025 Start: 03-27-2024 End: 03-27-2025 US Pelvis transvaginal US OB transvaginal Imaging Routine Missed menses Expected: 03/27/2024 (Approximate), Expires: 03/27/2025 [facility] Comment on above: Expected: 03/27/2024 (Approximate), Expires: 03/27/2025 Start: 2020 Screening for malign ant neoplasm of cervix Pap Smear [facility] Start: 2018 DTaP,Tdap and Td Vaccines (1 - Tdap) DTaP,Tdap and Td Vaccines (1 - Tdap) [facility] Start: 2017 Adult BMI Screening Adult BMI Screen ing [facility] Start: 2011 Depression Screening Depression Scre ening [facility] Start: 2011 Tobacco Screening Tobacco Screening [facility] Start: 1999 Screening for Chlamy leoncio trachomatis Chlamydia Screening [facility] Bacteria identified in Urine by Culture Urine culture Microbiology Routine Missed menses Ordered: 03/27/2024 [facility] Comment on above: Ordered: 03/27/2024 CBC W Auto Different ial panel - Blood CBC and differential Lab Routine Missed menses Ordered: 03/27/2024 [facility] Comment on above: Ordered: 03/27/2024 CHLAMYDIA TRACHOMATI S (GENITO/STI) CHLAMYDIA TRACHOMATIS (GENITO/STI) Lab Routine STD exposure Ordered: 05/25/2024 [facility] Comment on above: Ordered: 05/25/2024 Cytology Cervical or vaginal smear or scraping study Pap Smear Pathology and Cytology Routine Well woman exam with routine gynecological exam Ordered: 05/25/2024 [facility] Work Phone: Comment on above: Ordered: 05/25/2024 Hemoglobin A1c/Hemoglobin.total in Blood Hemoglobin A1c Lab Routine Missed menses Ordered: 03/27/2024 [facility] Comment on above: Ordered: 03/27/2024 Hepatitis B virus surface Ag [Presence] in Serum or Plasma by Immunoassay Hepatitis B surface antigen Lab Routine Missed menses Ordered: 03/27/2024 [facility] Comment on above: Ordered: 03/27/2024 Hepatitis C virus Ab [Presence] in Serum or Plasma by Immunoassay Hepatitis C antibody Lab Routine Missed menses Ordered: 03/27/2024 [facility] Comment on above: Ordered: 03/27/2024 HIV-1/HIV-2 antigen/antibody combination immunoassay HIV-1 and HIV-2 antibodies Lab Routine Missed menses Ordered: 03/27/2024 [facility] Comment on above: Ordered: 03/27/2024 Neisseria gonorrhoea e DNA [Presence] in Unspecified specimen by BUCK with probe detection Neisseria gonorrhea DNA probe, direct Lab Routine STD exposure Ordered: 05/25/2024 [facility] Comment on above: Ordered: 05/25/2024 Reagin Ab [Presence] in Serum by RPR RPR Lab Routine Missed menses Ordered: 03/27/2024 [facility] Comment on above: Ordered: 03/27/2024 Rubella antibody, IgG Rubella an tibody, IgG Lab Routine Missed menses Ordered: 03/27/2024 [facility] Comment on above: Ordered: 03/27/2024 SURESWAB(R) ADVANCED VAGINITIS PLUS, TMA SURESWAB(R) ADVANCED VAGINITIS PLUS, TMA Pathology and Cytology Routine Vaginal discharge Ordered: 05/25/2024 [facility] Comment on above: Ordered: 05/25/2024 Payers Date Payer Category Payer Commercial Managed C are - PPO [employer] [id number] 2023 [facility] [id number] 2023 Unknown [id number] 2021 Private Health Insurance [id number] 2021 Unknown [id number] [id number]. [id number] 2021 Unknown [id number] 1999 Unknown [id number] 2.16.840.1.495106.3.579.2. 593 1999 Unknown [id number] 2.16.840.1.938312.3.579.2. 593 1999 Unknown [id number] 2.16.840.1.314447.3.579.2. 593 1999 Unknown [id number] 2.16.840.1.456185.3.579.2. 593 1999 Unknown [id number] 2.16.840.1.511176.3.579.2. 593 1999 Unknown [id number] 2.16.840.1.367084.3.579.2. 593 1999 Unknown [id number] 2.16.840.1.203319.3.579.2. 593 1999 Unknown [id number] 2.16.840.1.711752.3.579.2. 1286 1999 Unknown [id number] 2.16.840.1.477841.3.579.2. 1286 1999 Unknown [id number] 2.16.840.1.163246.3.579.2. 1259 1999 Unknown [id number] 2.16.840.1.310429.3.579.2. 9 1999 Unknown [id number] 2.16.840.1.249866.3.579.2. 1259 1999 Unknown [id number] 2.16.840.1.526246.3.579.2. 1259 1999 Unknown [id number] 2.16.840.1.012681.3.579.2. 1259 1999 Unknown [id number] 2.16.840.1.177039.3.579.2. 1259 1999 Unknown [id number] 2.16.840.1.940520.3.579.2. 1259 1999 Unknown [id number] 2.16.840.1.235840.3.579.2. 1259 1959 Private Health Insurance [id number] 1959 Unknown [id number] Social History Date Type Detail Facility Tobacco smoking stat us NHIS Unknown if ever smoked [facility] Work Phone: Start: 2000 Sex Assigned At Female F [facility] Start: 01-02-2024 End: 05-27-2024 Tobacco smoking status NHIS Never smoked tobacco [facility] Start: 01-02-2024 End: 05-27-2024 Tobacco use and exposure Smokeless tobacco non-user [facility] Start: 04-27-2024 End: 08-12-2024 Alcoholic beverage intake Ex-drinker (finding) [facility] Start: 01-02-2024 End: 06-15-2024 History of Social function [facility] Start: 01-02-2024 End: 06-15-2024 Tobacco use panel [facility] Start: 01-29-2024 [facility] Start: 11-26-2023 Gender identity Identifies as female gender (finding) [facility] Start: 05-27-2024 End: 06-15-2024 Alcoholic beverage intake Lifetime non-drinker (finding) [facility] Start: 1999 Sex assigned at Not on file P [facility] Start: 05-26-2024 Sex Female (finding) [facility] Medical Equipment Procedure Code Equipment Code Equipment Origin al Text Equipment Identifier Dates 1 strip by In Vi tro route Daily Use in the morning prior to breakfast, 1 hour after each meal for a total of 4times daily. [id number] Start: 07-20-2024 End: 08-19-2024 1 each by In Vit ro route Daily Use to check FSBS four times daily [id number] Start: 07-20-2024 End: 08-19-2024 Goals Date Patient Goal Desired Activity /State Personal health goal Clinical Notes 03-27-2024 to 08-12-2024 Chika Tracy LPN - 08/12/2024 11:10 AM Kamille Garcia MA - 07/20/2024 10:20 AM Gautam [...] apply, As needed Blood Glucose Monitoring Suppl (Flocktory Glucometer) w/Device kit 1 kit, Does not [...] 1 tablet, Daily ALLERGIES Allergies Allergen Reactions Guayanilla Flavor [Guayanilla Oil] Latex Hives, Itching, Rash and Swelling [...] nursing note reviewed. Exam conducted with a machine egg washer present. Vitals: Estimated body mass index is [...] Luis Hilton DO documented in this encounter [facility] 07-20-2024 History of Present illness Narrative Reason [...] mg, Oral, Daily ALLERGIES Allergies Allergen Reactions Guayanilla Flavor [Guayanilla Oil] Latex Hives, Itching, Rash and Swelling [...] Luis Hilton DO documented in this encounter [facility] 06-22-2024 History of Present illness Narrative [...] mg, Oral, Daily ALLERGIES Allergies Allergen Reactions Guayanilla Flavor [Guayanilla Oil] Latex Hives, Itching, Rash and Swelling [...] Luis Hilton DO documented in this encounter [facility] 06-15-2024 History of Present illness Narrative [...] Allergies: Allergies Allergen Reactions Latex, Natural Rubber Guayanilla Meds: Prior to Admission medications Medication Sig [...] other morbidities. Based on the available evidence, [facility] recommends treatment with antihypertensive therapy for [...] preeclampsia prevention as is recommended by the [place] [employer] Committee Opinion No. 743. [...] Hugo Rodriguez MD, FACOG (she/hers) Maternal- Medicine [facility] [address] [place] [address] This document was created with [employer] technology. Though I make every effort to review the dictation as it is transcribed, on occasion the spoken word can be misinterpreted by the technology leading to inappropriate words, phrases, or sentences. This note is addressed to the requesting provider as a consultation for clinical guidance. Specific medical abbreviations are occasionally used and those are generally approved by the [place]?Board of?Obstetrics and?Gynecology?as well as?Kenzie croft abbreviations. The above plan of care was based solely on the diagnoses for which a consultation was requested. ?More frequent testing may be indicated based on her other medical/obstetrical conditions. The management of other or medical conditions is beyond the scope of requested consultation and will continue to be followed by the primary bull ladle tender or primary care provider. Note to patient: The Cures Act makes medical notes like these [...] IVF Have you been seen here at [facility] in a previous ? N/a Recent ER visits or hospitalizations? no Bring blood sugar log or meter with you today? (Please bring them with you for every visit at [facility]) no Flu vaccine (May-September)? no Any concerns that you would like me to mention to the provider today? no documented in this encounter [facility] [employer] 05-25-2024 History of Present illness Narrative Reason [...] mg, Oral, Daily ALLERGIES Allergies Allergen Reactions Guayanilla Flavor [Guayanilla Oil] Latex Hives, Itching, Rash and Swelling [...] nursing note reviewed. Exam conducted with a machine egg washer present. Vitals: Estimated body mass index is [...] Luis Hilton DO documented in this encounter [facility] 04-27-2024 History of Present illness Narrative [...] mg, Oral, Daily ALLERGIES Allergies Allergen Reactions Guayanilla Flavor [Guayanilla Oil] Latex Hives, Itching, Rash and Swelling [...] nursing note reviewed. Exam conducted with a machine egg washer present. Vitals: Estimated body mass index is [...] IVF . Patient to also have [facility] referral for IVF and Level II [...] or undercooked meat, and stay away from [facility]. Patient has been consulted regarding any further do's and don'ts of . Patient voiced understanding and all questions and concerns were answered. Orders Placed This Encounter Procedures POCT urinalysis dipstick manually resulted Follow Up: Patient is to return in 4 weeks for routine OB appointment. Documented by Esperanza Peter LPN on behalf of: Luis Hilton DO documented in this encounter [facility] 03-27-2024 History of Present illness Narrative [...] Procedure Laterality Date TONSILLECTOMY Allergies Allergen Reactions Guayanilla Flavor [Guayanilla Oil] Latex Hives, Itching, Rash and Swelling [...] or undercooked meat, and stay away from [facility]. Patient has also been advised to [...] Jo-Ann Motta LPN documented in this encounter [facility] Evaluation note No assessment inform ation available [facility] Work Phone: Evaluation note Diagnosis Well woman exam with routine gynecological exam Routine gynecological examination Second trimester state, incidental Vaginal discharge Leukorrhea, not specified as infective STD exposure documented in this encounter [facility]* Diagnosis 21 weeks gestation of - Primary Chronic hypertension affecting In vitro fertilization Encounter for assisted reproductive fertility procedure cycle [facility]* Diagnosis Second trimester state, [...] fertility procedure cycle documented in this encounter [facility] HealthcareInstructionsNot on filedocumented in this encounterProMed[facility] SystemInstructionsNot on filedocumented in this encounterProWilson Health SystemInstructions* Attachments The following attachments cannot be sent through Care Everywhere. * Preeclampsia (Hebrew) [facility] Purpose Family History Relationship Condition Age at Onset Recorded Date/T yosi family member Unknown Heart disease Unknown Advance Directives Advance Directive Response Recorded Date/ Time Advance Directives No January 01 9:07am Chief Complaint and Reason for Visit Chief Complaint Congestion Additional Source Comments INFORMATION SOURCE (unrecogn ized section and content) DATE CREATED AUTHOR 03/06/2019 [facility] DATE CREATED AUTHOR AUTHOR'S ORGANIZ ATION 12/21/2021 [facility] DATE CREATED AUTHOR AUTHOR'S ORGANIZ ATION 12/01/2022 [facility] DATE CREATED AUTHOR AUTHOR'S ORGANIZ ATION 06/17/2024 [facility] DATE CREATED AUTHOR AUTHOR'S ORGANIZ ATION 08/15/2024 [facility]IC Care Teams (unrecognized sec tion and content) Team Status: Active Member Role Status Dates Damon Stover DO Primary Care Provider Active Team Status: Inactive Member Role Status Dates Damon Stover DO Primary Care Provider Active Start: January 02, 2024 End: January 02, 2024 Teresa Sanchez APRN Attending Provider Active S tart: January 02, 2024 End: January 02, 2024 General Adjuster Relationship Specialty Start Date End Date Kayce Grant MD [address] [place] [phone] PCP - General Family Medicine 11/27/23 General Adjuster Relationship Specialty Start Date End Date Kayce Grant MD [address] [place] [phone] PCP - General Family Medicine 11/27/23 General Adjuster Relationship Specialty Start Date End Date Kayce Grant MD [address] [place] [phone] PCP - General Family Medicine 11/27/23 General Adjuster Relationship Specialty Start Date End Date Kayce Grant MD [address] [place] [phone] PCP - General Family Medicine 11/27/23 General Adjuster Relationship Specialty Start Date End Date Kayce Grant MD [address] [place] [phone] PCP - General Family Medicine 11/27/23 General Adjuster Relationship Specialty Start Date End Date Kayce Grant MD [address] [place] [phone] PCP - General Family Medicine 11/27/23 General Adjuster Relationship Specialty Start Date End Date Kayce Grant MD [address] [place] [address] PCP - General Family Medicine 11/27/23 General Adjuster Relationship Specialty Start Date End Date Kayce Grant MD [address] [place] [address] PCP - General Family Medicine 11/27/23 General Adjuster Relationship Specialty Start Date End Date Kayce Grant MD [address] [place] [address] PCP - General Family Medicine 11/27/23 General Adjuster Relationship Specialty Start Date End Date Kayce Grant MD [address] [place] [address] PCP - General Family Medicine 11/27/23 General Adjuster Relationship Specialty Start Date End Date Kayce Grant MD [address] [place] [address] PCP - General Family Medicine 11/27/23 General Adjuster Relationship Specialty Start Date End Date Kayce Grant MD [address] [place] [address] PCP - General Family Medicine 11/27/23 General Adjuster Relationship Specialty Start Date End Date Kayce Grant MD [address] [place] [address] PCP - General Family Medicine 11/27/23 Goals [...] BE BASED ON THE PRIMARY CLINICAL RECORDS. [facility] [employer] [facility]. provides no warranty or guarantee of the accuracy or completeness of information in this document.
[2024-08-29 08:04] VITALS: BP 122/81; PULSE 110; TEMP 36.1
== END 2024-08-29 08:35 | disposition home or self-care (01) ==
LOC: FBCO 03:24 → FBC 07:51
PROVIDERS: PCP Family Medicine; Visit Provider Obstetrics & Gynecology
DX: O99.283 Endocrine, nutritional and metabolic diseases complicating pregnancy, third trimester (principal); Z3A.32 32 weeks gestation of pregnancy
CPT/HCPCS: 59025

== ENCOUNTER 2024-09-02 00:39 | Outpatient (OUT) | payer OTHER, BC, SELFPAY ==
--- NOTE | 2024-09-02 | US_ITS ---
[address] [address] Patient Name: ANNA MARIO MRN: [facility]:[id number] date: 2000 Sex: F Assigned Patient Location: [facility] Current Patient Location: Accession/Order Number: [id number] Exam Date: 09/02/2024 08:03 Report Date: 09/02/2024 09:22 At the request of: LUIS DOTY Procedure: US OB BPP w non-stress EXAMINATION: US OB BPP w non-stress HISTORY:Gestational diabetes mellitus O24.419 COMPARISON: Ultrasound OB biophysical 08/26/2024 TECHNIQUE: Ultrasound biophysical profile was performed in the radiology department. BREATHING MOVEMENTS: 2 GROSS BODY MOVEMENTS: 2 TONE: 2 QUALITATIVE AMNIOTIC FLUID VOLUME: 2 PRESENTATION: CEPHALIC HEART RATE: 161.68 bpm AMNIOTIC FLUID VOLUME: 12.07 cm GESTATIONAL AGE: 32 weeks 6 days US/US OB BPP w non-stress IMPRESSION: 1. Total biophysical profile score: 8 Electronically authenticated by: LUCHO PADRON Date: 09/02/2024 09:22
--- OUTSIDE RECORDS SUMMARY | 2024-09-02 01:06 | XMS_ITS | CCD ---
Author Organization [facility] Care Team Providers Care Systems Architect Name Role Phone YOBANI ., DR SMITH Admitting Unavailable YOBANI ., DR SMITH Attending Unavailable GRANT, DR AKILA Watson Primary Care Unavailable YOBANI ., DR SMITH Consulting Unavailable YOBANI ., DR SMITH Admitting Unavailable YOBANI ., DR SMITH Attending Unavailable GRANT, DR AKILA Watson Primary Care Unavailable ZULEIMA, DR CLEMENTINE Mayo Consulting Unavailable YOBANI ., DR SMITH Consulting Unavailable YOBANI ., DR SMITH Admitting Unavailable YOBANI ., DR SMITH Attending Unavailable YOBANI ., DR SMITH Consulting Unavailable GRANT, DR AKILA Watson Primary Care Unavailable ZIEBER, DR LUCHO Johnson Consulting Unavailable YOBANI ., DR SMITH Admitting Unavailable YOBANI ., DR SMITH Attending Unavailable YOBANI ., DR SMITH Consulting Unavailable GRANT, DR AKILA Watson Primary Care Unavailable YOBANI ., DR SMITH Admitting Unavailable YOBANI ., DR SMITH Attending Unavailable ZULEIMA, DR CLEMENTINE Mayo Consulting Unavailable RUDY, DR AKILA Watson Primary Care Unavailable YOBANI ., DR SMITH Consulting Unavailable YOBANI ., DR SMITH Admitting Unavailable YOBANI ., DR SMITH Attending Unavailable GRANT, DR AKILA Watson Primary Care Unavailable YOBANI ., DR SMITH Consulting Unavailable YOBANI ., DR SMITH Admitting Unavailable YOBANI ., DR SMITH Attending Unavailable RUDY, DR AKILA Watson Primary Care Unavailable YOBANI ., DR SMITH Consulting Unavailable Akila Grant MD Primary Care Provider Unavailable Primary Care Provider Unavailguy e IMMANUEL HILTON Referring Unavailable CELE RODRIGUEZ Attending Unavailable IMMANUEL HILTON R Referring Unavailable YOBANI, IMMANUEL Referring Unavailable IMMANUEL HILTON Attending Unavailable YOBANI, IMMANUEL Attending Unavailable JIM, JOHNNY Attending Unavailable IMMANUEL HILTON Attending Unavailable IMMANUEL HILTON Attending Unavailable IMMANUEL HILTON Attending Unavailable IMMANUEL HILTON Attending Unavailable IMMANUEL HILTON Attending Unavailable Allergies Allergy Classification Reported Allergen(s) Allergy Type Date of Onset Reaction(s) Facility (2 sources) Latex Drug allergy (disorder) 0 hives [facility] Repository (1 source) orange flavor Drug allergy (disorder) 0 [facility] Repository (5 sources) Enterprise - fruit; Translations: [ORANGE] 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 [address] [facility] (20 sources) Latex 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 4 Hives, Itching, Rash, Swelling [facility] (20 sources) orange allergenic extract Drug [...] 2024 12:00am aspirin 81 mg chewable tablet (3 sources) Platelet Aggregation Inhibitor, Nonsteroidal Anti-inflammatory Drug Start: 06-15-2024 aspirin 81 mg chewable tablet Indications: 21 weeks gestation of , Chronic hypertension affecting , In vitro fertilization Take 1 tablet once a day until delivery and then stop 30 tablet 6 06/15/2024 Active take 1 tablet by mouth once simon y aspirin 81 MG EC tablet Take 81 mg by mouth Daily Active azithromycin 250 mg oral tablet (7 [...] Glucose Monitoring Suppl (D-Care Glucometer) w/Device kit (9 sources) Start: 07-20-2024 End: 07-20-2025 Blood Glucose [...] MCG/0.5ML injection 11/26/2023 03/27/2024 Discontinued Continuous Glucose Flume Maker (FreeStyle Jenise 3 [place]) device (3 sources) Start: 08-20-2024 Continuous Glucose Flume Maker (FreeStyle Jenise 3 [place]) device Indications: Gestational diabetes mellitus (GDM), antepartum, gestational diabetes method of control unspecified , Third trimester 1 each every 14 (fourteen) days 1 each 3 08/20/2024 Active Continuous Glucose Sensor (FreeStyle Jenise 3 Sensor) [facility] (3 sources) Start: 08-20-2024 Continuous Glucose Sensor (FreeStyle Jenise 3 Sensor) [facility] Indications: Gestational diabetes mellitus (GDM), antepartum, gestational diabetes method of control unspecified , Third trimester 1 each every 14 (fourteen) days 2 each 3 08/20/2024 Active isopropyl alcohol 0.7 ml/ml medicated pad (9 sources) Start: 07-20-2024 Alcohol Swabs (Alcohol Prep [...] January 02, 2024 12:00am Start: 11-29-2023 End: 08-27-2024 take 1 tablet by mouth in the morning labetalol (Normodyne) 200 MG tablet Indications: Blood pressure instability Take 1 tablet (200 mg) by mouth in the morning and 1 tablet (200 mg) before bedtime. 60 tablet 3 11/29/2023 08/27/2024 Discontinued letrozole 2.5 mg oral tablet (2 sources) [...] Daily 30 tablet 6 03/23/2024 04/22/2024 Active methylPREDNISolone (10 sources) Corticosteroid Start: 06-16-2024 [...] 06/16/2024 Active metroNIDAZOLE 500 mg oral tablet (7 sources) Nitroimidazole Antimicrobial Start: 08-25-2024 End: 09-01-2024 [...] 7 days 45 g 05/27/2024 06/03/2024 Active Completed/Discontinued Medications Medication Drug Class(es) Dates Sig (Normalized) Sig (Original) acyclovir 800 mg oral tablet (20 sources) Herpesvirus Nucleoside Analog DNA Polymerase Inhibitor, Herpes Simplex Virus Nucleoside Analog DNA Polymerase Inhibitor, Herpes Zoster Virus Nucleoside Analog DNA Polymerase Inhibitor Start: 11-26-2023 End: 08-27-2024 take 1 tablet by mouth in the morning acyclovir (Zovirax) 800 MG tablet Take 800 mg by mouth in the morning and 800 mg before bedtime. 11/26/2023 08/27/2024 Discontinued estradiol 2 mg oral tablet (20 sources) Estrogen Start: 12-31-2023 End: 08-27-2024 estradiol (Estrace) 2 MG tablet 2 mg 12/31/2023 08/27/2024 Discontinued ibuprofen 600 mg oral tablet (20 sources) Nonsteroidal Anti-inflammatory Drug Start: 01-04-2023 End: 08-27-2024 take 1 tablet by mouth every six hours ibuprofen 600 MG tablet Take 1 tablet by mouth every 6 (six) hours 01/04/2023 08/27/2024 Discontinued metFORMIN hydrochloride 500 mg oral tablet (20 sources) Biguanide Start: 04-30-2023 End: 08-27-2024 take 4 tablets by mouth once daily metFORMIN (Glucophage) 500 MG tablet Take 2,000 mg by mouth Daily 04/30/2023 08/27/2024 Discontinued take 1 tablet by gt th in the morning, then take 1 tablet by mouth at bedtime metFORMIN (GLUCOPHAGE) 500 mg tablet Shalom e 1 tablet (500 mg total) by mouth in the morning and 1 tablet (500 mg total) before bedtime. Active Problems Active Problems Problem Classification Problem [...] of ] 06-22-2024 Episodic Residual codes; unclassified (12 sources) Gestation period, 26 weeks; Translations: [26 weeks gestation of ] Onset: 07-20-2024 07-20-2024 Episodic Residual codes; unclassified (2 sources) Gestation period, 29 weeks; Translations: [29 weeks gestation of ] 08-12-2024 Episodic Residual codes; unclassified (2 sources) Gestation period, 32 weeks; Translations: [32 weeks gestation of ] 08-27-2024 Episodic Thyroid disorders (1 source) Nontoxic single thyroid nodule; Translations: [NONTOXIC SINGLE THYROID NODULE] Onset: 04-08-2022 Chronic Unclassified (18 sources) OB Reminders Onset: 05-18-2024 05-18-2024 Unclassified [...] Value Interpretation Reference Range Facility US OB FOLLOW UP TRANSABDOMIN AL APPROACHon 08-27-2024 US OB FOLLOW UP TRANSABDOMINAL APPROACH TITLE OF EXAM: OB Ultrasound: REASON FOR EXAM: IVF, GDM. COMPARISON: None TECHNIQUE: Grayscale and M-mode Doppler imaging is performed. FINDINGS: heart rate: 136 bpm CAPRICE: 14.2 cm (8.2-24.6) BPD: 7.9 cm HC: 29.5 cm AC: 30.1 cm FL: 6.3 cm GA for sonogram: 32.4 wk (30.0-34.9) [place]lock SARA: 10/22/2024 Weight Estimate: Weight: 2164 gm / 4 lbs, 12 oz (1753-9555 gm) [place] Normal: 1953 gm (0893-6858 mg) [place] 80% for 32.0 wks (GA selected) 40% for 33.4 wks LMP Limited for: Growth Amniotic Fluid: 14.2 cm Between 5th and 95 percentile. Largest Fluid Pocket: 4.7 cm Heart Rate: 136 Somatic motion: Yes IMPRESSION: 1. Single living intrauterine gestation. Cephalic presentation. 2. Gestational age AUA 32 weeks 3 days. Gestational age based on LMP 33.4 weeks. 39% weight percentile based on 33.4 weeks gestational age. Normal growth. 3. Limited study for growth. *This report is generated using voice recognition reporting (FlexMinder). On occasion Entred[employer] erroneously drops words from the report or replaces the spoken word with similar sounding words. Please call with any questions/concerns regarding this report.* Dictated and transcribed 08/27/24/dpd This report has been electronically signed and approved by the interpreting radiologist. Normal Not Available Comment on above: Order Comment: US OB SCAN FOR GROWTH Estimated Date of Delivery: 10/22/24 Gestational Age as of 07/20/2024: 32w0d Urinalysis macro (dipstick) panel (U)on 08-27-2024 Bilirubin, UA Positive Negative - 4(70) +++ mg/dL [facility] Comment on above: small Blood, UA Negative Negative - 50 Jimy[facility] Clarity, UA Clear [facility] Color, UA Yellow [facility] Glucose, UA Positive Negative - 2000(110) ++++ mg/dL [facility] Comment on above: 100 Interpretation and review of laboratory results Abnormal [facility] Ketones, UA Positive Negative - 160(16) ++++ mg/dL [facility] Comment on above: trace Leukocytes, UA Positive Negative - 500+++ Mychal/mcL [facility] Comment on above: large Nitrite, UA Negative Negative - Positive [facility] pH, UA 6.5 5 - 9 [facility] Protein, UA Positive Negative - 2000(20) ++++ mg/dL [facility] Comment on above: 30 Spec Grav, UA 1.03 1 - 1.03 [facility] Urobilinogen, UA 0.2 0.2 - 12 mg/dL [facility] US OB BPP W NON-STRESS on 08-26-2024 [place] [address] Ultrasound Report Signed Patient: AMY MARIO MR#: [id number] : 2000 Acct:[id number] Age/Sex: 24 / F ADM Date: 08/26/24 Loc: [facility] 251-[address]: Immanuel Hilton D.O. Ordering Physician: Immanuel Hilton D.O. Date of Service: 08/26/24 Procedure(s): US OB BPP w non-stress Accession Number(s): [id number] cc: Akila Grant M.D.; Immanuel Hilton D.O. [address] [address] Patient Name: AMY MARIO MRN: [facility]:[id number] date: 2000 Sex: F Assigned Patient Location: [facility] Current Patient Location: [facility] Accession/Order Number: [id number] Exam Date: 08/26/2024 08:00 Report Date: 08/26/2024 08:56 At the request of: IMMANUEL HILTON Procedure: US OB BPP w non-stress [...] biophysical profile score: 8 Electronically authenticated by: LUCHO MIXON Date: 08/26/2024 08:56 Dictated By: Lucho Mixon M.D. Signed By: 08/26/24 0858 DD/ 0856 TD/TT: Quality Assurance Test Program Manager: [facility] Radiology, Radiologist, MD - 08/26/2024 [place] [address] Ultrasound Report Signed Patient: AMY MARIO MR#: [id number] : 2000 Acct:[id number] Age/Sex: 24 / F ADM Date: 08/26/24 Loc: [facility] 251-[address]: Immanuel Hilton D.O. Ordering Physician: Immanuel Hilton D.O. Date of Service: 08/26/24 Procedure(s): US OB BPP w non-stress Accession Number(s): [id number] cc: Akila Grant M.D.; Immanuel Hilton D.O. The [address] [address] Patient Name: AMY MARIO MRN: [facility]:[id number] date: 2000 Sex: F Assigned Patient Location: [facility] Current Patient Location: [facility] Accession/Order Number: [id number] Exam Date: 08/26/2024 08:00 Report Date: 08/26/2024 08:56 At the request of: IMMANUEL HILTON Procedure: US OB BPP w non-stress [...] biophysical profile score: 8 Electronically authenticated by: LUCHO MIXON Date: 08/26/2024 08:56 Dictated By: Lucho Mixon M.D. Signed By: 08/26/2458 DD/ TD/TT: Quality Assurance Test Program Manager: [facility] Radiology Study observation (narrative) [facility] US OB BPP W NON-STRESS Ordered By: Radiologist Radiology on 08-26-2024 [facility] Work Phone: Urinalysis macro (dipstick) panel (U)on 08-12-2024 Bilirubin, UA Negative Negative - 4(70) +++ mg/dL [facility] Blood, UA Negative Negative - 50 Jimy/mcL [facility] Clarity, UA Clear [facility] Color, UA Yellow [facility] Glucose, UA Negative Negative - 2000(110) ++++ mg/dL [facility] Interpretation and review of laboratory results Abnormal [facility] Ketones, UA Positive Negative - 160(16) ++++ mg/dL [facility] Comment on above: trace Leukocytes, UA Positive Negative - 500+++ Mychal/mcL [facility] Comment on above: large Nitrite, UA Negative Negative - Positive [facility] pH, UA 5.5 5 - 9 [facility] Protein, UA Trace Negative - 1999(20) ++++ mg/dL [facility] Spec Grav, UA 1.03 1 - 1.03 [facility] Urobilinogen, UA 0.2 0.2 - 12 mg/dL [facility] ALL CBC WITH AUTO DIFFon BASOPHILS ABSOLUTE AUTO 0 [facility] Basophils/100 WBC (Bld) 0.3 % 0.2 - 2.0 % [facility] Eosinophils/100 WBC (Bld) 1 % 0.9 - 7.0 % [facility] Erythrocyte distribution width (RBC) [Ratio] 13.2 % 11.0 - 15.0 % [facility] Hematocrit (Bld) [Volume fraction] 32.6 % Low 36.0 - 48.0 % [facility] Hemoglobin (Bld) [Mass/Vol] 11.3 g/dL Low 12.0 - 16.0 g/dL [facility] IMMATURE GRANULOCYTES ABS AUTO 0.07 High [facility] Immature granulocytes/100 WBC (Bld) 0.9 % High 0.0 - 0.5 % [facility] Interpretation and review of laboratory results Abnormal [facility] LYMPHOCYTES ABSOLUTE AUTO 1.6 [facility] Lymphocytes/100 WBC (Bld) 19.6 % Low 20.5 - 60.0 % [facility] MCH (RBC) [Entitic mass] 30.4 pg 26.7 - 34.0 pg [facility] MCHC (RBC) [Mass/Vol] 34.7 g/dL 29.9 - 35.2 g/dL [facility] MCV (RBC) [Entitic vol] 87.6 fL 81.0 - 99.0 fL [facility] MONOCYTES ABSOLUTE AUTO 0.6 [facility] Monocytes/100 WBC (Bld) 8 % 1.7 - 12.0 % [facility] NEUTROPHILS ABSOLUTE AUTO 5.6 [facility] Neutrophils/100 WBC (Bld) 70.2 % 43.0 - 75.0 % [facility] Platelet mean volume (Bld) [Entitic vol] 9.7 fL 9.5 - 13.5 fL [facility] TBH EO # 0.1 [facility] TB PLT 400 [facility] TB RBC 3.72 Low [facility] TB WBC 8 [facility] Urinalysis macro (dipstick) panel (U)on 06-22-2024 Bilirubin, UA Negative Negative - 4(70) +++ mg/dL [facility] Blood, UA Negative Negative - 50 Jimy/mcL [facility] Clarity, UA Clear [facility] Color, UA Yellow [facility] Glucose, UA Negative Negative - 1999(110) ++++ mg/dL [facility] Interpretation and review of laboratory results Abnormal [facility] Ketones, UA Positive Negative - 160(16) ++++ mg/dL [facility] Comment on above: 15 Leukocytes, UA Positive Negative - 500+++ Mychal/mcL [facility] Comment on above: small Nitrite, UA Negative Negative - Positive [facility] pH, UA 5.5 5 - 9 [facility] Protein, UA Trace Negative - 1999(20) ++++ mg/dL [facility] Spec Grav, UA 1.03 1 - 1.03 [facility] Urobilinogen, UA 0.2 0.2 - 12 mg/dL [facility] IGP,APTIMA HPV,AGE GDLNon AGE GDLN ACOG TESTING Note . [facility] Comment on above: TESTS RESULT FLAG U NITS REF RANGE LAB Clinician Provided Cytology Information Source.............Cervix Other.............. No. of containers..01 ThinPrep Vial Age Algo ACOG Michelle... -25 08 FLAG LEGEND: L-Low Normal,H-High Normal,LL-Alert Low,HH-Alert High <-Panic Low,>-Panic High,A-Abnormal,AA-Critical Abnormal Performed at: 01 =[address] [facility] [place] [address] Mar Rivera MD, IGP, RFX APTIMA HPV ASCU Note . [facility] Comment on above: TESTS RESULT FLAG UN ITS REF RANGE LAB DIAGNOSIS: 02 NEGATIVE FOR INTRAEPITHELIAL LESION OR MALIGNANCY. FUNGAL ORGANISMS MORPHOLOGICALLY CONSISTENT WITH CARLOS SPECIES ARE PRESENT. Specimen adequacy: 02 Satisfactory for evaluation. No endocervical component is identified. An endocervical component is not commonly seen in the patient. Performed by: Judy Vera, Drill Hand ([facility]) . 02 Note: Note 02 The [...] High,A-Abnormal,AA-Critical Abnormal Performed at: 02 [address] [facility] [address] [place] [address] Mar Rivera MD, Performed at: = - [address] [id number] Senior Sales Consultant: Mar Rivera MD, Phone: [phone] Performed at: [address], [place] [id number] Senior Sales Consultant: Mar Rivera MD, Phone: [phone] SPATULA-ALONE CERVIX [facility] AFP, SERUM, OPEN SPINA BIFID Aon 05-30-2024 AFP MOM 1.36 . [facility] AFP VALUE 55.4 ng/mL . [facility] COMMENT: Comment . [facility] Comment on above: Ivet Mobley , Ph.D., [facility] Director References: Available Upon Request. Multiples Of Median Cutoffs For AFP Elevations [place] 2.5 Black 2.8 IDD 2.0 Twins 4.5 Abbreviation Definitions IDD - Insulin Dep Diabetes OSBR - Open Spina Bifida Risk For further inquiries contact [facility] at [phone]. This test was developed and its performance characteristics determined by [employer]. It has not been cleared or approved by the Food and Drug Administration. Performed at: [facility] [address] [place], [place] [id number] Senior Sales Consultant: Kristina Carter [facility], Phone: [phone] GEST. AGE ON COLLECTION DATE 18.6 . weeks [facility] GESTAT. AGE BASED ON LMP . [facility] Comment on above: Recalculations are n ot recommended when gestational dating by LMP and ultrasound are within 10 days. INSULIN DEP DIABETES No . [facility] INTERPRETATION Comment . [facility] Comment on above: Interpretation: Scre en [...] Customer Services to discuss available options. The [employer] recommends amniocentesis be offered to women age 35 and older. MATER[age] SARA 25.3 . [age] [facility] MULTIPLE GESTATION No . [facility] OSBR RISK 1 IN 4034 . [facility] RACE . [facility] RESULTS Report . [facility] TEST RESULTS: Negative . [facility] WEIGHT 185 . lbs [facility] N N LMP [id number] 4 18 N 1 Y 185 N N N N N White/ [facility] Urinalysis macro (dipstick) panel (U)on 04-27-2024 Bilirubin, UA Positive Negative - 4(70) +++ mg/dL [facility] Comment on above: small Blood, UA Negative Negative - 50 Jimy/mcL [facility] Clarity, UA Clear [facility] Color, UA Yellow [facility] Glucose, UA Negative Negative - 2000(110) ++++ mg/dL [facility] Interpretation and review of laboratory results Abnormal [facility] Ketones, UA Positive Negative - 160(16) ++++ mg/dL [facility] Comment on above: trace Leukocytes, UA Positive Negative - 500+++ Mychal/mcL [facility] Comment on above: small Nitrite, UA Negative Negative - Positive [facility] pH, UA 6.0 5 - 9 [facility] Protein, UA Negative Negative - 1999(20) ++++ mg/dL [facility] Spec Grav, UA 1.030 1 - 1.03 [facility] Urobilinogen, UA 0.2 0.2 - 12 mg/dL [facility] ALL CBC WITH AUTO DIFFon BASOPHILS ABSOLUTE AUTO 0.0 [facility] Basophils/100 WBC (Bld) 0.1 % Low 0.2 - 2.0 % [facility] Eosinophils/100 WBC (Bld) 0.9 % 0.9 - 7.0 % [facility] Erythrocyte distribution width (RBC) [Ratio] 13.0 % 11.0 - 15.0 % [facility] IMMATURE GRANULOCYTES ABS AUTO 0.03 [facility] Immature granulocytes/100 WBC (Bld) 0.3 % 0.0 - 0.5 % [facility] Interpretation and review of laboratory results Abnormal [facility] LYMPHOCYTES ABSOLUTE AUTO 2.3 [facility] Lymphocytes/100 WBC (Bld) 26.6 % 20.5 - 60.0 % [facility] MCH (RBC) [Entitic mass] 30.1 pg 26.7 - 34.0 pg [facility] MCHC (RBC) [Mass/Vol] 34.6 g/dL 29.9 - 35.2 g/dL [facility] MCV (RBC) [Entitic vol] 87.0 fL 81.0 - 99.0 fL [facility] MONOCYTES ABSOLUTE AUTO 0.4 [facility] Monocytes/100 WBC (Bld) 4.1 % 1.7 - 12.0 % [facility] NEUTROPHILS ABSOLUTE AUTO 5.9 [facility] Neutrophils/100 WBC (Bld) 68.0 % 43.0 - 75.0 % [facility] Platelet mean volume (Bld) [Entitic vol] 9.6 fL 9.5 - 13.5 fL [facility] TBH EO # 0.1 [facility] PLT 400 [facility] RBC 4.55 [facility] WBC 8.7 [facility] CBC without diffon Rbc Mcv (Fl) By Automated Count 87 [facility] Laboratory - Hematology and Cell countson 04-08-2024 Hematocrit (Bld) [Volume fraction] 39.6 % [facility] Hemoglobin (Bld) [Mass/Vol] 13.7 g/dL [facility] No Panel Informationon 04-08 [facility] Rubella IGG immune statuson 04-08-2024 Rubella immune IgG 2.32 [facility] Syphilis Total(Unknown Syphi lis Status)on 04-08-2024 Syphilis Non-Reactive [facility] Type and screenon 04-08-2024 Abo/Rh(D) Positive [facility] HCG ( test) Ql (U)o n 03-27-2024 Interpretation and review of laboratory results Abnormal [facility] Preg Test, Ur Positive [facility] Urinalysis macro (dipstick) panel (U)on 03-27-2024 Bilirubin, UA Negative Negative - 4(70) +++ mg/dL [facility] Blood, UA Negative Negative - 50 Jimy/mcL [facility] Clarity, UA Clear [facility] Color, UA Yellow [facility] Glucose, UA Negative Negative - 2000(110) ++++ mg/dL [facility] Interpretation and review of laboratory results Normal [facility] Ketones, UA Negative Negative - 160(16) ++++ mg/dL [facility] Leukocytes, UA Negative Negative - 500+++ Mychal/mcL [facility] Nitrite, UA Negative Negative - Positive [facility] pH, UA 5.5 5 - 9 [facility] Protein, UA Negative Negative - 2000(20) ++++ mg/dL [facility] Spec Grav, UA 1.025 1 - 1.03 [facility] Urobilinogen, UA 0.2 0.2 - 12 mg/dL [facility] PROGESTERONEon 07-27-2022 Progesterone 26.9 ng/mL Normal [facility] Comment on above: Result Comment: Foll icular phase 0.1 - 0.9 Luteal phase 1.8 - 23.9 Ovulation phase 0.1 - 12.0 First trimester 11.0 - 44.3 Second trimester 25.4 - 83.3 Third trimester 58.7 - 214.0 Postmenopausal 0.0 - 0.1 Performed By: #### P ROGES #### [facility] [address] [address] [address] Ryan Francisco PREG QUANT HCGon 07-12-2022 HCG QUANT <1 Normal [facility] Comment on above: Performed By: #### P REGQNT #### [facility] [address] [address] [address] Ryan Francisco HCG RANGE SEE BELOW Normal [facility] Comment on above: Result Comment: 5-50 0.2-1 WEEK 50-500 1-2 WEEKS 100-5,000 2-3 WEEKS 500-10,000 3-4 WEEKS 1,000-50,000 4-5 WEEKS 10,000-100,000 5-6 WEEKS 15,000-200,000 6-8 WEEKS 10,000-100,000 2-3 MONTHS Performed By: #### P REGQNT #### [facility] [address] [place] [address] Dr. Ryan Francisco XR HYSTEROSALPINGO EXPon XR [...] by: CLEMENTINE DEWEY Date: 2022-07-12 12:34 Normal [facility] PROGESTERONEon 06-29-2022 Progesterone 4.6 ng/mL Normal [facility] Comment on above: Result Comment: Foll icular phase 0.1 - 0.9 Luteal phase 1.8 - 23.9 Ovulation phase 0.1 - 12.0 First trimester 11.0 - 44.3 Second trimester 25.4 - 83.3 Third trimester 58.7 - 214.0 Postmenopausal 0.0 - 0.1 Performed By: #### P BRETT #### [facility] [address] [place] [address] Dr. Ryan Francisco PROGESTERONEon 06-01-2022 Progesterone 18.9 ng/mL Normal [facility] Comment on above: Result Comment: Foll icular phase 0.1 - 0.9 Luteal phase 1.8 - 23.9 Ovulation phase 0.1 - 12.0 First trimester 11.0 - 44.3 Second trimester 25.4 - 83.3 Third trimester 58.7 - 214.0 Postmenopausal 0.0 - 0.1 Performed By: #### P BRETT #### [facility] [address] [place] [address] Dr. Ryan Francisco US PELVIS AND TRANSVAGon [...] by: CLEMENTINE DEWEY Date: 2022-05-17 17:25 Normal [facility] PROGESTERONEon 04-29-2022 Progesterone 5.1 ng/mL Normal [facility] Comment on above: Result Comment: Foll icular phase 0.1 - 0.9 Luteal phase 1.8 - 23.9 Ovulation phase 0.1 - 12.0 First trimester 11.0 - 44.3 Second trimester 25.4 - 83.3 Third trimester 58.7 - 214.0 Postmenopausal 0.0 - 0.1 Performed By: #### P BRETT ####[facility] [address] [place], [place] [address]XoDr. Ryan Francisco ANTI-MULLERIAN HORMONEon Anti-Mullerian Hormone (AMH) 6.09 ng/mL Normal [facility] Comment on above: Result Comment: For assays employing antibodies, the possibility exists for interference by heterophile antibodies in the samples.1 1.Steffen Wilson Interferences in Immunoassays - still a threat. Clin. Chem. 2000; 46: 7610-0479. This test was developed and its performance characteristics determined by [employer]. It has not been cleared or approved by the Food and Drug Administration. Reference Range: Females 20 - 25y: 1.23 - 11.51 Median 4.70 AMH concentrations of >= 1.06 ng/mL is correlated with a better response to ovarian stimulation, produced more retrievable oocytes and higher odds of live according to Herber et al. Fertility and Sterility. 2010: 94:8096-8421. The current AMH test method correlates with [...] tumor. Performed By: #### A WEI #### [facility] [address] [place], [place] [address] Dr. Ryan Francisco FSHon 04-05-2022 FSH 3.6 mIU/mL Normal [facility] Comment on above: Result Comment: Adul t Female: Follicular phase 3.5 - 12.5 Ovulation phase 4.7 - 21.5 Luteal phase 1.7 - 7.7 Postmenopausal 25.8 - 134.8 Performed By: #### [facility] #### [facility] [address] [place] [address] Dr. Ryan Francisco LUTEINIZING HORMONE (LH)on 0 04-05-2022 LH 6.8 mIU/mL Normal [facility] Comment on above: Result Comment: Adul t Female: Follicular phase 2.4 - 12.6 Ovulation phase 14.0 - 95.6 Luteal phase 1.0 - 11.4 Postmenopausal 7.7 - 58.5 Performed By: #### L BCL ####[facility] [id number] [place] [address]Dr. Ryan Francisco CBC AUTO DIFFon 04-04-2022 BASO # 0.0 103/ul Normal 0.0-0.1 [facility] Comment on above: Performed By: #### C BC #### [facility] [address] [place] [address] Dr. Ryan Francisco Basophils/100 WBC (Bld) 0.3 % Normal 0.2-2.0 [facility] Comment on above: Performed By: #### C BC #### [facility] [address] [place] [address] Dr. Ryan Francisco EO # 0.1 103/ul Normal 0.0-0.7 [facility] Comment on above: Performed By: #### C BC #### [facility] [address] [place] [address] Dr. Ryan Francisco Eosinophils/100 WBC (Bld) 1.7 % Normal 0.9-7.0 [facility] Comment on above: Performed By: #### C BC #### [facility] [address] [place] [address] Dr. Ryan Francisco Erythrocyte distribution width (RBC) [Ratio] 12.7 % Normal 11.0-15.0 [facility] Comment on above: Performed By: #### C BC #### [facility] [address] [place] [address] Dr. Ryan Francisco Hematocrit (Bld) [Volume fraction] 39.7 % Normal 36.0-48.0 [facility] Comment on above: Performed By: #### C BC #### [facility] [address] [place] [address] Dr. Ryan Francisco Hemoglobin (Bld) [Mass/Vol] 13.4 g/dL Normal 12.0-16.0 [facility] Comment on above: Performed By: #### C BC #### [facility] [address] [place] [address] Dr. Ryan Francisco IG # 0.03 10e3/ul Normal 0.00-0.03 [facility] Comment on above: Performed By: #### C BC #### [facility] [address] [place] [address] Dr. Ryan Francisco IG % 0.5 % Normal 0.0-0.5 [facility] Comment on above: Performed By: #### C BC #### [facility] [address] [place] [address] Dr. Ryan Francisco LYMPH # 1.6 103/ul Normal 1.2-3.8 [facility] Comment on above: Performed By: #### C BC #### [facility] [address] [place] [address] Dr. Ryan Francisco Lymphocytes/100 WBC (Bld) 27.1 % Normal 20.5-60.0 [facility] Comment on above: Performed By: #### C BC #### [facility] [address] [place] [address] Dr. Ryan Francisco MANUAL DIFF REQ NO Normal [facility] Comment on above: Performed By: #### C BC #### [facility] [address] [place] [address] Dr. Ryan Francisco MCH (RBC) [Entitic mass] 29.6 pg Normal 26.7-34.0 [facility] Comment on above: Performed By: #### C BC #### [facility] [address] [place] [address] Dr. Ryan Francisco MCHC (RBC) [Mass/Vol] 33.8 g/dL Normal 29.9-35.2 [facility] Comment on above: Performed By: #### C BC #### [facility] [address] [place] [address] [address] Ryan Francisco MCV (RBC) [Entitic vol] 87.6 fL Normal 81.0-99.0 [facility] Comment on above: Performed By: #### C BC #### [facility] [address] [place] [address] [address] Ryan Francisco MONO # 0.4 103/ul Normal 0.3-0.8 [facility] Comment on above: Performed By: #### C BC #### [facility] [address] [place] [address] Dr. Ryan Francisco Monocytes/100 WBC (Bld) 6.7 % Normal 1.7-12.0 [facility] Comment on above: Performed By: #### C BC #### [facility] [address] [place] [address] Dr. Ryan Francisco NEUT # 3.7 103/ul Normal 1.4-6.5 [facility] Comment on above: Performed By: #### C BC #### [facility] [address] [place] [address] Dr. Ryan Francisco Neutrophils/100 WBC (Bld) 63.7 % Normal 43.0-75.0 [facility] Comment on above: Performed By: #### C BC #### [facility] [address] [place] [address] Dr. Ryan Francisco Platelet mean volume (Bld) [Entitic vol] 9.9 fL Normal 9.5-13.5 [facility] Comment on above: Performed By: #### C BC #### [facility] [address] [place] [address] Dr. Ryan Francisco PLT 421 103/ul Normal 150-450 [facility] Comment on above: Performed By: #### C BC #### [facility] [address] [place] [address] Dr. Ryan Francisco RBC 4.53 106/ul Normal 4.20-5.40 [facility] Comment on above: Performed By: #### C BC #### [facility] [address] [place], [place] [address] Dr. Ryan Francisco WBC 5.8 103/ul Normal 4.0-11.0 [facility] Comment on above: Performed By: #### C BC #### [facility] [address] [place], [place] [address] Dr. Ryan Francisco FREE T4on 04-04-2022 Free T4 [Mass/Vol] 0.99 ng/dL Normal 0.76-1.46 [facility] Comment on above: Performed By: #### F T4 #### [facility] [address] [place], [place] [address] Dr. Ryan Francisco TSHon 04-04-2022 TSH 3.086 uIU/mL Normal 0.358-3.740 [facility] Comment on above: Performed By: #### T SH ####[facility] [address] [place], [place] [address]KdDr. Ryan Francisco US PELVIS AND TRANSVAGon US [...] to document regression. Electronically authenticated by: LUCHO MIXON Date: 2022-04-04 16:38 Normal [facility] Auth for Release of Medical Recordson 12-20-2021 Auth for Release of Medical Records [id number]# 1.00CD:127 Normal [place] Coding Summary.on 08-22-2021 Coding Summary. CD:[id number] Gh0bWw+PGhlYWQ+PE1FV VJuM09jxNDkmQ7ZY1jKX Q8MRKGSMMSCLJ1ANC3ay GG1YQxkT0QzkgPv WzgkdZByWM62TFd1ZJQ8 sOgnRFjmoK0qlHAhR9d5 CwBmIG12uT22BWhiQGLx HbO8AlHthxeiaNJg I5ouJpTsoSBsKkp+PHRh YmxlIHdpZHRoPScxMDAl AkRzxMdkDE7yMk6kZKLz LWNvbGxhcHNlOiBj v4sqZOCzXCrdSM9ypGir I5YrzEB2BOGrc2x4Au17 dHI+ZKTpRXG4pItyWGji l885VjEru5bhVDT6 lXNcGDqbUUL0B17wf2O5 XMUiJOCpJRQ8hEQ2uJ3q yOpcedrjC4GhoLThEuW0 KUI3pDRlyD9eyYbq igyofW5nRqy+J44FWZ3X YEIZZT2MEwa1O9DkKpum dHI+PB29GDHhDB61xUUr dQNjc0yilEc7ExJc UJMfFKI4dCzpBOycs9Sf AWKrI24zdVCob8F9XTLc hRzdxMRrAlXdtVS2kM7s UNyfjfopf9hbwwlc Dywxq8iwiv56qB02P17j ADwjRSTbLUU2AEFeHOMr iFouyz7vxP6xBb2+IDxj o4ynb8cngNl5VgWp ODOkfwUulIqhAXN7m3Rl Sb23J9UthCjwm0LhHpl8 gg02cJMnw3Z5wPJ1KFon TRVgyI9tLOooHlT3 IQTgMdGhiH65nCXvUTva Nh5ljOfizHlwPN2sBDFh ouenAYZecK5nFXKjfLAu xBppOK1aIXSoufsr z966OjQgUHX7QZNgoNGq F1YhhX8eWhKeNSBcCOFn O2TduXFnVQjyN108DJxv HxO0LQVybcGsE9Kq AVSgfAdrBaN0n0N6An3A l3HktnnqALG2CEjsGDYw JdJ7RfTrHnQ5Y4BbYoq0 YAYybTtqDD5eQ3Yc QWOxxpchptxdlIP0AVFk CZWbbH46hECiUDyyNp0x b4A3m310VOOdMIYwlX81 Xb5jtXcpEXOjnQGV tQ9aqhsjz1lhfsvgMbMe IPGhZSi4UAz7IJQctFtq OsYaNWV7NmU7QJP3dXHw xX1nxQzidkwcmS8o Oyc+G35ygB9cEOH2TPU8 bqnpOZFoduRlUI75WF78 D4DuFvvimMQvxPF+PGRp wqIytSthHY4zDzFq d4xrw9GyISfqX0YzQTPf QGluLfm7MCKbQEK4pMM0 yR2qMAEqMJqki7D7sZA0 N4XibqMzym3sv3ee VBRnXPnsJ71rzQGtf8N7 QICcwYG8JVCldEsnJbPn bU06Qke+MVMccLzjp5Ek Wykws8cyc3zwvSo3 IjMwJSIgdmFsaWduPSJ0 g8BhMb03M00kJBisHQAn AFDfDETfXAHspUbxbk5s vP7sAe3+PGNvbCB3 tDE4rL9wRSBqJyU8XIsz R621UaCouPVpGhafx2lb k9znzNh5GgUrCFCpqmYn cObeAVC0q7CcPw97 M47oWHknKOZjGLWzECSu FQEvwPwslz0lpS6vDj2+ OE3jw3nggl83qO22fDB+ TYXiWCT2mXhwSJic MMNjyQ2nAKgfLhZ7EXDn QmGraA41hZQzFQvbXz5w yOofdDtxZT6kPPEwaxlr l295WmJir6egPLQl vRXrHFxaGPY0W46ti2T9 XGWwAOTpWOX6xAH6qS3c bGlnbjogbGVmdDsgdmVy wAfsPHgjXJqnE593 IHRvcDsnPlBhdGllbnQg DxAiCUg3H5NlQdu0SAIc aArtII2elTSfIZbiNd8t dMugsEkrBD5qYFFc zjtql330HyBtg7nsGTIu wBNfBKslSHW0H31cc8Z5 HBFkXLAtUGX8fJR6sN0o bGlnbjogbGVmdDsg tqWcsEblSUqdJTbrK096 IHRvcDsnPkJpcnRoIERh qKG2EE28YG06qDZjj1L2 bOZ2I2OrHPTtizcb eywjxVM7DBKqHQTnbN23 Tv4auHxaOl7cEZGeQFE5 FBMdzPVuY8ThjY6fCrOb NVPcSGHyV9VqaMFd WIudS566QQcjOpX0RBUv mmWuM0EhVKIciKpnEuA9 k9Q8Tx9YE1G0UJ98JG55 nERmh9S5nUG5Q7Ou MIUqrnxswhmreQV6EAOd OAYxiA51Bh8vtVpaSt3s KQUoQIC8WHIdzKGxO2Ea pG0lJeYeGPZjTPTb K2WleCZkTQkjI665DPzf UoI8RGYtonCqR9NtBPYv iHylXbA8r3F7Gj9GHZm8 AE85JM80xOTsu7U9 yNP0M4KlUHYiismfkgcb lKH1FTLoYVPvpN50Iw7z eWvkXs6aFASfKAF9VMPs bIDaU9GzrH0lJvDi UYTdHYSaK6YwcITmLWom R614FTumEpF6RFVjffQa O5PzRGFkjYfwYuQ2x0V5 Jq1SJHAeAD30FCF8 cOA3VH59WV94P4RxGpqi dGFibGU+PHRhYmxlIHdp ZHRoPScxMDAlJyBzdHls LO6yUf2uQICnVBIt xZjzaEMeArRxp0xtCYQb RRdwDL7wvRofB6WelYG6 TVUux1y5Xt17K58sC6Tw dXA+BAQvdPP3rUT8 sU3dGlNkOmT4XAleR569 PiEbyVJfFhvks2wlv4la dAr8ObS3SNGilrKmlFsi VWE5v2ZdOz71V19x IHdpZHRoPSIxNSUiIHZh mKrzjx7ilS8iEy0+PGNv lAD3oUB3pE2wYwYsCfH0 EZglM423FuPatDUt Depvs7jup4auyLi9JiJe IFOqitLaxFdrKFD6t3Un Ss86O0VqmCdhl1EmOrt8 xo36aWBqv5R3pXC4 H4YqRFHnxmrdkJCagAvi CL6zKVHekgzrAHUwzF9s RRYcN6i8QfNmCmV5MAaz H2EyiuM0LFSapJCx DZfrXOJ6S48dy8M0AKOx KYYrSRO2gEF1qF7guJzg bjogbGVmdDsgdmVydGlj ZAfpLXxjZ963TVNd iTrfVCPhkL0rMBMbcNBp fQwaJS6aPBQmjygjWaxK EUUzQXrNONISDS19RM50 dLScd9L4hYX1Q4Wn YGVnjmddumaqzPY3VPQu WDMtaJ43iYPbHHvsOw0l d4H0y096CSPhYFPjhL92 Cm5uzFmwVXVvrARB lL8baahbw5lyougjVwOz FCCcWJr4QHg8ZVFxaUif MdLiAHB7HoK0DFR5lOKr cE8wvGuoxbuirB0d Oyc+PUMrSmovRLb9JSjy dGQ+GIMeTWE7yIxtSIxf RHVceR7yWMBnD7a0RxLj AdB8BPqnC6ZqAUDs nmthQn31oI6xMkCcMqI1 VUveJ6ImuuP9DERnsDDq WHkrCUV0Q27gu4R6WFEe XYCkCQD0jNN0oM7s bGlnbjogbGVmdDsgdmVy fWgjRYcxVHvdI094RQGw cLhgXrXcEUcxJBPcWC08 XU67nWBfa0T5uPE6 Y6CePWHwhzrxjdblgRK5 SLIlSZWycR98pTUhZHpg Mj1yk5S8l220DZXmHDDc gS73Ww8ubSztJDNi cOQLaZ0zffepe1elyofw AtWuSDJzJLn9RRe2OBMo wHrkUiJhRGH0QpC3LBI2 zCQssJ6zmSgtyvrv uO3uJaw+GfPaKVxwPV76 PJ41sEXqa1L0gIT9Q7Jh AQYbgunsuepwuYR6YKXf HFWsjX12wDMcGXxc Ab9nk6G1y908QZZsDHVc hD42Yq2nuPjaLTKfdWWQ wF3jalrjq5nldxbeOfDb ZHJyCNd1TJr8PZDd rKxbAaTwGAZ3XmM2OBM6 hHSzlH9poZocadvscE9k Oyc+A5D7fTS9mWAnxIhh dGQ+DZ97ov91X6Vl OoycJyb0PXPaOYT0iSB9 sK4bWJReKIevj3V3dTU4 V3LzizLxyt8ax1ijMWNj SRzrM91mgTTpb1O3 NZDutOG6JMDcsOixSlCk hU20Uaw+JQOhlOhwj6Ue Cbmoe2zuq0eeeYx8RwJl JSIgdmFsaWduPSJ0 a6MwIo20D49mXAmsJLZx SBQsTXGxQKBuxFbrbb3r wQ2yBt6+YNSkyJK6tRT2 gL7zEgJsMlG2GJex S080FfRrbKPrXfvtn0eb l2jnaFj1TsVcHZRggdRp eOiaARJ7s0EwNt06V4Vl gUnno1YeCzw2oe35 uCCfh9C6cZH8I0ZoRJAn bthotHQgyEgnDC3lFESm ejjyEXDtjA2iMMBzE1y7 HdUyVqC7VGmjE4Fe qsX6EKIkcANpGMQecOGC hU8zzqcse0eojnprFuVg CKTtOUg9ROt1SYQemOaj BkBqLJM2NhP8JIX6 lZLvmM7mkVncugdxhX1r Oyc+UYv0c2wdwOEnEN3a lWV1TK80PT59mJIak5G9 yXF2I3WtHMNsjuer auqvcWG0OURrVKVizM93 Fg3ufHbdDz8oSWQuSAD5 RSAwxUCfC3MpsU9sOmAe AEZiAGQfT8AgeZUv VZowJ823RHwwBqQ6HPMw qqVwM9VfCSGubIvyHaE2 p6W4Yn7TUZ25DS96IL71 bBDcc1Z5tFR2V3Fa RLYdjkjzfdrqoWG7DQCr JLHfxD93We8itXxxQl2o OVQaMJN9URNnnFCrH8Uo kQ6iBmItGRBzQLBe H7KksGTfRBizR446WRgf NkP9LHDlqtPlB8LgOUMu bHrmBtY3z4F1Je7YRm11 CQ32ND90dNJuj7Y6 bEX9S1LtRYAflyfsuxyk kNA4SERyHUSapW46Bb4x yWvoTd8nZSVhPAC6TYTg fTEaI4GszS3wCgOr XAHlLKMhU3YemJVmYVzz H441YPozKiS9SCRpckGj P3TtYNTgbKvuIgD6z3S2 Qm6XRQtjrdk3G8Mg PjwvdHI+CZ58ZOExES40 qBRvuVTzj6dzcPg2RjNn RZXfSXN6hPoeIYnni1Vt QYObZ72mvMLcu8K7 IGNv (more content not included)... [facility] Coding Summary. CD:[id number] Gh0bWw+PGhlYWQ+PE1FV AGxC72prFAhsE6DO7fRV R7YVLKDJFLYFB0GHC2cp XV1WDexR4YxepAr RppfpWSgIR56MMd8VVI5 yGpgLVbwqI4uaDHaB3v2 SdMjPD73iO78RQuwMCLo YgE0YbPmglqdeZTz M9srZdLeeDRuKup+PHRh YmxlIHdpZHRoPScxMDAl AyRwvThiGQ0nHt8yYVNq LWNvbGxhcHNlOiBj m8wqXMFcKTonMY9pmQse U5JfuCK1PRKfi5d6Gn25 dHI+CNDzYCF5uTueQGgz j383UxEqk6gcPBQ8 pTJsLCagXDS2F06df4Z3 WDSuWCRcATE3mSS2vQ1t gIpuynkfV3XerXVtBmE3 OUW9xJFrfZ0saUfg hfukzL4sQbb+T12BXD4P ZOUSGW1FXmq0K4RlSgmz dHI+FO44BXGaZO84bDPu eJAxr0nmyCi1PwBb KOSeTXL6cQsxXBqox1Wi RESsT47khSVaw8T9SQXa dMmbkLOvLeVeeGJ9tC0g CLuodpshb2ywflza Fsfhe4xssm49aR63D44w FXzhSHWiROD1USOeSPWc hIyufm4xoO0gKt9+IDxj s1zel0nlnAs1HeAh NMKzubNhaNmfYAG5s8Pa Zt72T0JuaNdul3HeEpo3 fv67mHWph7B4vCN1BXnl EEGkjV7nMMnpTiR8 IEToSbUodN17jMQcTNzs Oi8tdNovfShxUU4rYIXv lyrjTQBewG8qLTRfqXMs dKvmGE9sGQRhurhk p089CrAgKWG6PVMgwYPm W4BqbB3aKsFtMYBsHFYe A6CrqIThPXrpB153RRza ZcT3BWJrilZgE9Zk MQFhbQdsIaY1v2E3Ws4M t6PzlhtsRYH0GPoxHPNq MyN9EzYnRcE8N4ZtNqo5 FEEmzMhuEF9qE3Xs XLWqkiqbydjnnIO5FUUc UABnwO97sKKpNUxcRu1q f7H6x073RDChHNAjvV89 Vv4veEweSERfzURS nE0neezwe2vgfkbdIjJz MUXnPWz1OZw9ROIsmSmd IyWkSPD2LtB7VPG8rJPo nL5dmRolcftaaV6b Oyc+S32zwX7aKDN2KOX1 zgyuYVUpcgJtAT56OF31 L4UvSqzipJMkdLC+PGRp zsGhfUuxBM0gLwRo o8hwa0KrZNvbY7LeNDZo ZEspXbl3XXEvRWV9uJW5 mC3bMKBpLWqsc8P8dVX2 Q6GjexReqg6xp9nm MRRiLBccS68ulGSkf5E5 XRQbrFP1TEIarRkeNxSj lH10Ujv+YZPboQxgw1Zb Erutc0oez3fabSh5 IjMwJSIgdmFsaWduPSJ0 a8RqAl59K82vBHfnNCUk QKAtUROpFCCskJabfz5e hF7iIp7+PGNvbCB3 nDV0eP6oLIQgCkQ4RTjh S961XcYnuMSkOejxb1nr u1elyRx3LxRoWXZpfiVp fLkcHBK3v0BoWg88 D88rQKyfPDNvYYJlQIXr GGPraKegwb6frD4fHb1+ CG3bj4baoc50aW43aTT+ EGJyZDF1fXdcNGxo JRUelA7xEDupCyK4FLGk EiBbgJ51uTPyYFxqCe5m bOgdjCelTV3yINCrsgpx d314EeXvb2ipIHSw hAVhOObhEED3P52gc3Y4 OCReOYEzCEN7iIX4zE7r bGlnbjogbGVmdDsgdmVy gQihCRazMGdrA596 IHRvcDsnPlBhdGllbnQg EjFzOZv5E0HlTyx0BYIl zJlaDR7fqPXwQRbtFd8m xFnyaYxySW9tDKPk askhl417WiQes4ivRWIm aTOjDFkeFVJ4H60rq3D4 KAZjRCYdNJD7mHL1hE9b bGlnbjogbGVmdDsg ftJcnTxdRWtuJGavR908 IHRvcDsnPkJpcnRoIERh zET8MY38JD73nVFbi4E3 bIY9K2WhKABesmgc crxyrDB6TCIxDOMilF49 Tk8jlCyeCh4lBSZnAJM6 KESnwBQrR0PpqL5aTqEp KQCnJCFfQ7PxgHQx RXfdK418JIrmSwF2RQIn zpTyH5EdCSCpjIpmHnJ4 u8I9Qg7NS6G4DJ90JT33 aFEft1A8sGD7R5Ta XCHhuotzmsfpaSE7ZGPv LJBjtN64Mp6hjPbvOp9k KPNjRAO4HZYyfLGhK5Fr bH8pSuMtXZQnZHEu Y8EnnFHqTYwaU674OHfv LfT5JFXgnyBwT2KdVTLj uKknNnL1o1T6Ux5EYQc2 CM56BX84xOMcb3P4 sWQ7V3MwEEViteobgtdn oPB8OHBbTLFdoN32So9u pJfjZl2kEABxZZK5ILZt wCJrC9GvvS4gChBv MNXyTWTtA2JblCOeJSos X613DOxcWiE0LERwmdBq E8HrRSSyzUxmXrT7v8W8 Jp9TDYEtJL49WAO1 yQF1DJ54QE68A7FkJyyp dGFibGU+PHRhYmxlIHdp ZHRoPScxMDAlJyBzdHls ZN1vMi3kCZCnBEXi iTjzqGUoGjGub7lcHOXj STjaUI2spDxaJ6XinIR9 JYVct7c2Rg81T19fX4Ob dXA+SAVsnOK8rAZ7 lA3hBrNaDbX8NWomV913 SxShlCVbHhiix9bun7ac vEh8HhH4SEJlanDbuFit XLY7i7KiCq10B96d IHdpZHRoPSIxNSUiIHZh jDgqiq4iqE5ySv6+PGNv zOD4eQZ5fD1fMpCkMtO5 NMvgD758BrUqeBMk Kzcdj3pwn6lmiBe2SbVk AUVoudBhcHumLWD8x7Nv Ma01H9YdnOivw3KbNfl9 ht38tSCat7P2gXL3 U4NvJPCjgrvsxLNzbMqq IR4rTDPhcrmjSSRkiR4t WNLxW7l0InKjYtJ0MKep P6PltlU0MKYwnZBm JNxsDRN3C30dl4A5QOHn XVDcIUA1gXT0cZ3xrXuu bjogbGVmdDsgdmVydGlj RLemOQnjS832WXVh vHrcBJGxdS5zUSSxlYLg sUruVZ0bNGWusqcgTcxK OXWqSMcAWNUCNL82OU91 iACbr4J4lKX4Y6Dk RGXegxemplzdfAX1WZBp DGJciP23gBIiHCbbId0u l3L8i486NBRsLIAioZ16 Fh3mlBraSJBaaVID bK9tspqcb9rfekqfAgPn WTNuPCj2HIt8KGZykFya AwGdSQE2CaX6VNP0aXDo hN0ppUuehfjglH2l Oyc+JSRyUwbpIJi4TVns dGQ+LUXcOIZ6sWwxKOuj OBOxuY4jTILmV0a4VwNv EnI6ZBbtI7LtAKKq ebwmOu66sW4fJxHtSyA5 GPmzR0WpagJ9HMDgxHTj PPzmBIW6S88as1Y3VGBd ELCnLOE6jWM5bM7x bGlnbjogbGVmdDsgdmVy cXniLDomNRdrT881CBOv vOsnJmKhCVctATHtTU18 ST89aBKjm4U5dRQ4 D9RtCOUmgqlgiueaaKH7 XOIrIDEadA14qGVgFQbb Qs6cz4M1e671GVPkBQKz nW71Cc1oxQjoDXHg eNURhC7xjnzdg7iweunx JwYhGRIaYGi5KYi8YCZf zHfrEaVmKKL6AtV2HBC8 qWKnqM0zaAwvlick cJ5pTla+JlAaWZouVP03 LX70iQNhv5U7cEW1K3Jx QZYktqrkbjcxoPD3AITs DVVdrN62cALbSXim Fy8it3W2g481DLGcAMZr iJ45Sq3cmVtcVFBapUQD qP1rosymp5glaiehLdXk NHRoPJm8DXy3CWWc nPzeNeYrGBV8PiL1LJX8 mILyaJ0tjMvllubghU1o Oyc+SZBbYUNot0Oat4Xd JH86FV22W7RyItts dGFibGU+PHRhYmxlIHdp ZHRoPScxMDAlJyBzdHls ZS4oPo1sKDNkSWFfvLbj yLZtNlYpy1dtHYZo YWkbIQ5wmTkoI3GokEV8 TCUiz5e9In77W75xE7Kk dXA+FTZdbVG0uFO7yK4f LfVrNyY1FBbfX122 WcRchPIxRpiew3ikh6ld kKv6ZmErGJXwbcRxjFuf HWM7i2UuVd01M99qTNgm ZHRoPSIyMCUiIHZh iKslko1yiH0hPb6+PGNv bXP9fXY6zK4fKmBhFuN5 UMxvX719KyYphRIhJnny W55sY5QwzLJ+PHRy Rak3YNHjhQouWH7rdLYr SZmaVz2wXFI1EqEaLnXp TQpdP9KmGYWeblyyahwp uHR5LLPzAITqyS84 Uh0jmObbAw8sLUXmMZL9 DAEacGYkH6SwxM7uVoSn PCClLJXzB1LfkMKvJKhr Q302LCdwPsB8UCIb ngZtU5AfIAGngYhuHbG8 k1N0Yc0WlLzscVFcJZ9o RyMmNAy6S9LkUww9FWKi gIbyHK5fxKLqGLzz Wp1gvSolmBgcGJ6jJSNc gtffu148EfIrw6kjDTXu oKAvGOpfZSJ6D39mt2A7 CVBjROAlXMW9lXN0 uM7npDhoshobyZWafYsl isNlqGuvYVyuAMonH208 IFYgcCofGjEGKoi0F4Qr Goy0IPJjuDsbYV5o cNHdCQheNd4esOjkbQzp ZA8vXBAwwtzad074OmLi w2zuNDEhqSIxRFuxOOK3 Q28od0V7OWXgNARt FII2jKB7xT1kpAdfilzr bGVmdDsgdmVydGljYWwt MHntZ179VWVcoPuzEy0H Mzu5G7OrRza3OXGe oBzdPZ4uiBVnNBlqQy0h hFqxxNrbJN4pTBKvkqyt h538UcTnm0foNJVwmMHs LErfWAE2S11me4E0 FPNqCYWhXTL7wYP8aH5e bGlnbjogbGVmdDsgdmVy rPooMDefDJxaB286PSCi cDsnPlBheWVyOjwv dGQ+UJ51el46U5PjIryg Btb4NZSrHMI0oWT1rE4v DFGpRCjnx2N7oUJ3A3Ta wzDfzz3fl3zgAWGb ZTog (more content not included)... Normal [facility] PAP [id number] 08-15-2021 Cytology report Cyto stain Doc (Cvx/Vag) Note Invalid Interpretation Code [facility] Comment on above: Result Comment: TEST S RESULT FLAG UNITS REF RANGE LAB Clinician Provided Cytology Information Source.............[employer] No. of containers..01 ThinPrep Vial DIAGNOSIS: 01 NEGATIVE FOR INTRAEPITHELIAL LESION OR MALIGNANCY. Specimen adequacy: 01 Satisfactory for evaluation. No endocervical component is identified. Performed by: 01 Sujey Engle Drill Hand (ASCP) . 01 Note: Note 01 The [...] <-Panic Low,>-Panic High,A-Abnormal,AA-Critical Abnormal Performed at: [address] [address] Mar Rivera MD, Performed By: #### 1 [id number] #### [facility] [address] [place] [address] HPV 16+18+31+33+35+39+45 +51+52+56+58+59+66+6 8 DNA Probe+sig amp Ql (Cvx) Negative Invalid Interpretation Code Negative [facility] Comment on above: Result Comment: This nucleic acid amplification test detects fourteen high-risk HPV types (16,18,31,33,35,39,45,51,52,56,58,59,66,68) without differentiation. Performed at: [address] [id number] MD Nicole Manuel Performed at: =[address] [id number] MD Nicole Manuel Performed By: #### 1 [id number] #### [facility] [address] [place] [address] Insulin Lvlon 08-11-2021 Insulin Qn 24.3 u[IU]/mL Invalid Interpretation Code 2.6-24.9 [facility] Comment on above: Result Comment: Perf ormed at: [address], [place] [id number] PhD Archie Jha Performed By: #### 1 [id number] #### [facility] [address] [place] [address] Consent for Treatmenton 07-29 Consent for Treatment [id number] #1.00CD:127 Normal [facility] Glu Fastingon 08-10-2021 Glucose [Mass/Vol] 95 mg/dL Normal 55-99 [facility] Comment on above: Performed By: #### 1 [id number] #### [facility] [address] [place] [address] Physician Orderon 08-10-2021 Physician Order [id number] 2#1.00CD:127 Normal [facility] PAP [id number] 08-09-2021 Collection Technique BRUSH-SPATULA Normal [facility] Comment on above: Performed By: #### 1 [id number] #### [facility] [address] [place] [address] Gynecological Body Site ENDOCERVIX Normal [facility] Comment on above: Performed By: #### 1 [id number] #### [facility] [address] [place] [address] Physician Orderon 08-09-2021 Physician Order [id number] #1.00CD:127 Normal [facility] Gynecology Office/Clinic Not pratik 02-17-2019 Gynecology Office/Clinic [...] Family History Family history is negative Normal [facility] Comment on above: Result Comment: Elec tronically [...] Family History Family history is negative Normal [facility] Comment on above: Result Comment: Elec tronically Signed By: Shamika ISAACS, Kaley Wilson\.br\Date and Time Signed: 02/17/19 12:09 EDT Vital Signs Date Time Vital Sign Value Performing Clinician Facility 08-27-2024 11:45-0500 Body mass index (BMI) [Ratio] 35.08 kg/m2 [employer] DO Work Phone: [facility] 08-27-2024 11:45-0500 Body weight 87 kg [employer] DO Work Phone: [facility] 08-27-2024 11:45-0500 Diastolic blood pressure 82 mm[Hg] [employer] DO Work Phone: [facility] 08-27-2024 11:45-0500 Systolic blood pressure 122 mm[Hg] [employer] DO Work Phone: [facility] 08-12-2024 11:08-0500 Body mass index (BMI) [Ratio] 34.93 kg/m2 Immanuel Yobani DO Work Phone: [facility] 08-12-2024 11:08-0500 Body weight 86.64 kg Immanuel Yobani DO Work Phone: [facility] 08-12-2024 11:08-0500 Diastolic blood pressure 80 mm[Hg] Immanuel Yobani DO Work Phone: [facility] 08-12-2024 11:08-0500 Systolic blood pressure 120 mm[Hg] Immanuel Yobani DO Work Phone: [facility] 07-20-2024 11:00-0500 Body mass index (BMI) [Ratio] 34.39 kg/m2 Immanuel Yobani DO Work Phone: [facility] 07-20-2024 11:00-0500 Body weight 85.28 kg Immanuel Yobani DO Work Phone: [facility] 07-20-2024 11:00-0500 Diastolic blood pressure 76 mm[Hg] Immanuel Yobani DO Work Phone: [facility] 07-20-2024 11:00-0500 Systolic blood pressure 122 mm[Hg] Immanuel Yobani DO Work Phone: [facility] 06-22-2024 14:31-0500 Body mass index (BMI) [Ratio] 34.2 kg/m2 Immanuel Yobani DO Work Phone: [facility] 06-22-2024 14:31-0500 Body weight 84.82 kg Immanuel Yobani DO Work Phone: [facility] 06-22-2024 14:31-0500 Diastolic blood pressure 78 mm[Hg] Immanuel Yobani DO Work Phone: [facility] 06-22-2024 14:31-0500 Systolic blood pressure 124 mm[Hg] Immanuel Yobani DO Work Phone: [facility] 06-15-2024 10:27-0500 Body weight 84.82 kg Cele Rodriguez MD Work Phone: [facility] [employer] [facility] 06-15-2024 10:27-0500 Diastolic blood pressure 88 mm[Hg] Cele Rodriguez MD Work Phone: [facility] 06-15-2024 10:27-0500 Heart rate 99 /min Cele Rodriguez MD Work Phone: [facility] 06-15-2024 10:27-0500 Respiratory rate 18 /min Cele Rodriguez MD Work Phone: [facility] 06-15-2024 10:27-0500 Systolic blood pressure 137 mm[Hg] Cele Rodriguez MD Work Phone: [facility] 05-25-2024 11:46-0400 Body mass index (BMI) [Ratio] 33.84 kg/m2 Immanuel Yobani DO Work Phone: [facility] 05-25-2024 11:46-0400 Body weight 83.92 kg Immanuel Yobani DO Work Phone: [facility] 05-25-2024 11:46-0400 Diastolic blood pressure 74 mm[Hg] Immanuel Yobani DO Work Phone: [facility] 05-25-2024 11:46-0400 Systolic blood pressure 118 mm[Hg] Immanuel Yobani DO Work Phone: [facility] 04-27-2024 10:35-0400 Body mass index (BMI) [Ratio] 33.75 kg/m2 Immanuel Yobani DO Work Phone: [facility] 04-27-2024 10:35-0400 Body weight 83.69 kg Immanuel Yobani DO Work Phone: [facility] 04-27-2024 10:35-0400 Diastolic blood pressure 76 mm[Hg] Immanuel Yobani DO Work Phone: [facility] 04-27-2024 10:35-0400 Systolic blood pressure 122 mm[Hg] Immanuel Yobani DO Work Phone: [facility] 03-27-2024 10:27-0400 Body mass index (BMI) [Ratio] 34.53 kg/m2 [facility] 03-27-2024 10:27-0400 Body weight 85.64 kg Noms [facility] 03-27-2024 10:27-0400 Diastolic blood pressure 70 mm[Hg] Nom Nurse [facility] 03-27-2024 10:27-0400 Systolic blood pressure 120 mm[Hg] Nom Nurse [facility] 01-02-2024 09:15-0400 Body height 157.48 cm [facility] 01-02-2024 09:15-0400 Body mass index (BMI) [Ratio] 33.9 kg/m2 [facility] 01-02-2024 09:15-0400 Body temperature 100.2 [degF] [facility] 01-02-2024 09:15-0400 Body weight 84.08 kg [facility] 01-02-2024 09:15-0400 Heart rate 115 /min [facility] 01-02-2024 09:15-0400 Respiratory rate 18 /min [facility] 01-02-2024 09:15-0400 SaO2% (BldA) [Mass fraction] 99 % [facility] Encounters Encounter Date Encounter Type Care Provider Facility Start: 08-27-2024 End: 08-27-2024 flow sheet Immanuel Yobani DO Work Phone: [facility] Comment on above: Third trimester preg terrell; 32 weeks gestation of Start: 08-27-2024 End: 08-27-2024 ambulatory IMMANUEL YOBANI Not Available Start: 08-26-2024 End: 08-26-2024 Clinisync Result Encounter Immanuel Yobani DO Work Phone: [facility] External Department Unsolicited Start: 08-26-2024 End: 08-26-2024 Clinisync Result Encounter Immanuel Yobani DO Work Phone: [facility] External Department Unsolicited Start: 08-12-2024 End: 08-12-2024 Bamboo flowsheet Immanuel Yobani DO Work Phone: [facility] Start: 08-12-2024 End: 08-12-2024 Bamboo flowsheet Immanuel Yobani DO Work Phone: [facility] Start: 08-12-2024 End: 08-12-2024 flow sheet Immanuel Yobani DO Work Phone: [facility] Comment on above: 29 weeks gestation o f ; Third trimester ; Gestational diabetes mellitus (GDM), antepartum, gestational diabetes method of control unspecified; Encounter for in vitro fertilization Start: 08-12-2024 End: 08-12-2024 ambulatory IMMANUEL YOBANI Not Available Start: 08-05-2024 End: 08-05-2024 Clinisync Result Encounter Immanuel Yobani DO Work Phone: [facility] External Department Unsolicited Start: 08-05-2024 End: 08-05-2024 Clinisync Result Encounter Immanuel Yobani DO Work Phone: [facility] External Department Unsolicited Start: 07-20-2024 End: 07-20-2024 Bamboo flowsheet Immanuel Yobani DO Work Phone: [facility] Start: 07-20-2024 End: 07-20-2024 Bamboo flowsheet Immanuel Yobani DO Work Phone: [facility] Start: 07-20-2024 End: 07-20-2024 flow sheet Immanuel Yobani DO Work Phone: [facility] Comment on above: 26 weeks gestation o f ; Diabetes mellitus screening; Second trimester ; PCOS (polycystic ovarian syndrome); resulting from in vitro fertilization, antepartum; Gestational diabetes mellitus (GDM), antepartum, gestational diabetes method of control unspecified; Elevated glucose tolerance test Start: 07-20-2024 End: 07-20-2024 ambulatory IMMANUEL YOBANI Not Available Start: 06-22-2024 End: 06-22-2024 Bamboo flowsheet Immanuel Yobani DO Work Phone: [facility] Start: 06-22-2024 End: 06-22-2024 Bamboo flowsheet Immanuel Yobani DO Work Phone: [facility] Start: 06-22-2024 End: 06-22-2024 flow sheet Immanuel Yobani DO Work Phone: [facility] Comment on above: Second trimester pre gnancy; 22 weeks gestation of ; Personal history of cardiac murmur Start: 06-22-2024 End: 06-22-2024 ambulatory IMMANUEL YOBANI Not Available Start: 06-15-2024 End: 06-15-2024 Office consultation new/estab patient 60 min Cele Rodriguez MD Work Phone: [facility] [place] Comment on above: 21 weeks gestation o f (Primary Dx); Chronic hypertension affecting ; In vitro fertilization Start: 06-15-2024 End: 06-15-2024 ambulatory [facility] Start: 05-28-2024 End: 05-30-2024 Clinisync Result Encounter Immanuel Yobani DO Work Phone: [facility] Unsolicited Start: 05-28-2024 End: 05-30-2024 Clinisync Result Encounter Immanuel Yobani DO Work Phone: [facility] Unsolicited Start: 05-27-2024 End: 05-27-2024 Chart abstracting Cele Rodriguez MD Work Phone: [facility] Start: 05-25-2024 End: 05-25-2024 Bamboo flowsheet Immanuel Yobani DO Work Phone: [facility] Start: 05-25-2024 End: 06-01-2024 Bamboo flowsheet Immanuel Yobani DO Work Phone: [facility] Start: 05-25-2024 End: 06-01-2024 Clinisync Result Encounter Immanuel Yobani DO Work Phone: [facility] Unsolicited Start: 05-25-2024 End: 05-25-2024 Patient encounter procedure Immanuel Yobani DO Work Phone: [facility] Work Phone: Start: 05-25-2024 End: 05-25-2024 flow sheet Immanuel Yobani DO Work Phone: [facility] Comment on above: Well woman exam with routine gynecological exam; Second trimester ; Vaginal discharge; STD exposure Start: 05-25-2024 End: 05-25-2024 ambulatory IMMANUEL YOBANI Not Available Start: 04-27-2024 End: 04-27-2024 Bamboo flowsheet Immanuel Yobani DO Work Phone: [facility] Start: 04-27-2024 End: 04-27-2024 Bamboo flowsheet Immanuel Yobani DO Work Phone: [facility] Start: 04-27-2024 End: 04-27-2024 ambulatory IMMANEUL YOBANI Not Available Start: 04-27-2024 End: 04-27-2024 flow sheet Immanuel Yobani DO Work Phone: [facility] Comment on above: 14 weeks gestation o f ; Second trimester ; Encounter for screening for cervical length Start: 04-08-2024 End: 04-08-2024 Clinisync Result Encounter Immanuel Yobani DO Work Phone: [facility] Unsolicited Start: 04-08-2024 End: 04-08-2024 Clinisync Result Encounter Immanuel Yobani DO Work Phone: [facility] Unsolicited Start: 03-27-2024 End: 03-27-2024 Office outpatient visit 5 minutes [facility] Yobani Nurse [facility] Comment on above: GA: 10w1d Start: 03-27-2024 End: 03-27-2024 ambulatory IMMNAUEL YOBANI Not Available Start: 01-02-2024 End: 01-02-2024 ambulatory JOHNNY FERNANDEZ Not Available Start: 01-02-2024 End: 01-02-2024 ambulatory [facility] Work Phone: Start: 01-02-2024 End: 01-02-2024 Patient encounter procedure [facility] Work Phone: Start: 11-27-2023 End: 11-27-2023 ambulatory IMMANUEL HILTON Not Available Start: 07-26-2022 End: 07-27-[address] IMMANUEL HLITON . Facility: Start: 07-12-2022 End: 07-12-[address] IMMANUEL [place] . Facility:[facility] Start: 06-28-2022 End: 06-29-[address] IMMANUEL HILTON . Facility: Start: 05-31-2022 End: 06-27-[address] IMMANUEL H[place]TON . Facility:[facility] Start: 05-17-2022 End: 05-18-[address] IMMANUEL H[place]TON . Facility:[facility] Start: 04-28-2022 End: 04-29-[address] IMMANUEL HILTON . Facility:[facility] Start: 04-04-2022 End: 04-05-[address] IMMANUEL HILTON . Facility: Procedures Date Procedure Procedure Detail Performing Clinician Start: 08-27-2024 Urnls dip stick/tabl et rgnt non-auto w/o micrscp Immanuel Yobani DO Work Phone: Start: 08-26-2024 US OB BPP W NON-STRESS Immanuel Yobani DO Work Phone: Start: 08-12-2024 Urnls dip stick/tabl et rgnt non-auto w/o micrscp Immanuel Yobani DO Work Phone: Start: 08-05-2024 ALL CBC WITH AUTO DIFF Immanuel Yobani DO Work Phone: Start: 06-22-2024 Urnls dip stick/tabl et rgnt non-auto w/o micrscp Immanuel Yobani DO Work Phone: Start: 05-28-2024 AFP, SERUM, OPEN SPI NA BIFIDA Immanuel Yobani DO Work Phone: Start: 05-25-2024 IGP,APTIMA HPV,AGE GDLN Immanuel Yobani DO Work Phone: Start: 05-25-2024 Microscopic observat ion [Identifier] in Cervix by Cyto stain Cele Rodriguez MD Work Phone: Start: 04-27-2024 Urnls dip stick/tabl et rgnt non-auto w/o micrscp Immanuel Yobani DO Work Phone: Start: 04-08-2024 Blood count complete automated Not In System Ref Prov Start: 04-08-2024 Syphilis test non-treponemal antibody qual Not In System Ref Prov Start: 04-08-2024 TYPE AND SCREEN Not In System Ref Prov Start: 04-08-2024 ALL CBC WITH AUTO DIFF Immanuel Yobani DO Work Phone: Start: 03-27-2024 Urnls dip stick/tabl et rgnt non-auto w/o micrscp Immanuel Yobani DO Work Phone: Plan of Treatment Date Care Activity Detail Author Start: 05-25-2027 Screening for malign ant neoplasm of cervix Pap Smear [facility] Start: 06-15-2025 Tobacco Screening Tobacco Screening [facility] Start: 09-08-2024 End: 09-08-2024 Patient encounter procedure 09/08/2024 8:30 AM EST Routine [facility] [address] [place] [address] Immanuel Hilton DO [address] [place] [address] [facility] Start: 08-27-2024 End: 08-27-2024 Patient encounter procedure 08/27/2024 11:40 AM EST Routine [facility] [address] [place] [id number] Immanuel Hilton, DO [address] [place] [address] [facility] Start: 08-27-2024 End: 08-27-2024 Professional / ancillary services management 08/27/2024 11:00 AM EST Ancillary Procedure [facility] [address] [id number] [facility] Start: 08-12-2024 End: 08-12-2025 [...] End: 06-15-2024 Patient encounter procedure [facility] [place] Start: 05-25-2024 End: 11-23-2024 Alpha fetoprotein, maternal Alpha fetoprotein, maternal Lab Routine Second trimester Expected: 05/25/2024 (Approximate), Expires: 11/23/2024 [facility] Comment on above: Expected: 05/25/2024 (Approximate), Expires: 11/23/2024 Start: 05-25-2024 End: 05-25-2024 Patient encounter procedure [facility] Comment on above: Arrived Start: 05-05-2024 End: 05-05-2024 Professional / ancillary services management 05/05/2024 2:30 PM EDT Ancillary Procedure [facility] [address] [place] [address] [place] [address] [facility] Start: 04-27-2024 End: 04-27-2025 US Pelvis transvaginal US OB transvaginal Imaging Routine Encounter for screening for cervical length Expected: 04/27/2024 (Approximate), Expires: 04/27/2025 [facility] Work Phone: Comment on above: Expected: 04/27/2024 (Approximate), Expires: 04/27/2025 Start: 04-27-2024 End: 04-27-2024 Patient encounter procedure 04/27/2024 10:20 AM EDT Routine [facility] [address] [place] [address] Immanuel Hilton DO [address] [place] [address] [facility] Start: 03-29-2024 COVID-19 Vaccine ( season) COVID-19 Vaccine ( season) [facility] Start: 03-29-2024 Influenza vaccination [facility] Start: 03-27-2024 End: 03-27-2025 ABO/Rh ABO/Rh Lab Routine Missed menses Expected: 03/27/2024 (Approximate), Expires: 03/27/2025 [facility] Comment on above: Expected: 03/27/2024 (Approximate), Expires: 03/27/2025 Start: 03-27-2024 End: 03-27-2025 Blood type and Indirect antibody screen panel - Blood Type and screen Lab Routine Missed menses Expected: 03/27/2024 (Approximate), Expires: 03/27/2025 [facility] Work Phone: Comment on above: Expected: 03/27/2024 (Approximate), Expires: 03/27/2025 Start: 03-27-2024 End: 03-27-2025 US Pelvis transvaginal US OB transvaginal Imaging Routine Missed menses Expected: 03/27/2024 (Approximate), Expires: 03/27/2025 [facility] Comment on above: Expected: 03/27/2024 (Approximate), Expires: 03/27/2025 Start: 2020 Screening for malign ant neoplasm of cervix Pap Smear [facility] Start: 2018 DTaP,Tdap and Td Vaccines (1 - Tdap) DTaP,Tdap and Td Vaccines (1 - Tdap) [facility] Start: 2017 Adult BMI Screening Adult BMI Screen ing [facility] Start: 2011 Depression Screening Depression Scre ening [facility] Start: 2011 Tobacco Screening Tobacco Screening [facility] Start: 1999 Screening for Chlamy leoncio trachomatis Chlamydia Screening [facility] Bacteria identified in Urine by Culture Urine culture Microbiology Routine Missed menses Ordered: 03/27/2024 [facility] Comment on above: Ordered: 03/27/2024 CBC W Auto Different ial panel - Blood CBC and differential Lab Routine Missed menses Ordered: 03/27/2024 [facility] Comment on above: Ordered: 03/27/2024 CHLAMYDIA TRACHOMATI S (GENITO/STI) CHLAMYDIA TRACHOMATIS (GENITO/STI) Lab Routine STD exposure Ordered: 05/25/2024 [facility] Comment on above: Ordered: 05/25/2024 Cytology Cervical or vaginal smear or scraping study Pap Smear Pathology and Cytology Routine Well woman exam with routine gynecological exam Ordered: 05/25/2024 [facility] Work Phone: Comment on above: Ordered: 05/25/2024 Hemoglobin A1c/Hemoglobin.total in Blood Hemoglobin A1c Lab Routine Missed menses Ordered: 03/27/2024 [facility] Comment on above: Ordered: 03/27/2024 Hepatitis B virus surface Ag [Presence] in Serum or Plasma by Immunoassay Hepatitis B surface antigen Lab Routine Missed menses Ordered: 03/27/2024 [facility] Comment on above: Ordered: 03/27/2024 Hepatitis C virus Ab [Presence] in Serum or Plasma by Immunoassay Hepatitis C antibody Lab Routine Missed menses Ordered: 03/27/2024 [facility] Comment on above: Ordered: 03/27/2024 HIV-1/HIV-2 antigen/antibody combination immunoassay HIV-1 and HIV-2 antibodies Lab Routine Missed menses Ordered: 03/27/2024 [facility] Comment on above: Ordered: 03/27/2024 Neisseria gonorrhoea e DNA [Presence] in Unspecified specimen by BUCK with probe detection Neisseria gonorrhea DNA probe, direct Lab Routine STD exposure Ordered: 05/25/2024 [facility] Comment on above: Ordered: 05/25/2024 Reagin Ab [Presence] in Serum by RPR RPR Lab Routine Missed menses Ordered: 03/27/2024 [facility] Comment on above: Ordered: 03/27/2024 Rubella antibody, IgG Rubella an tibody, IgG Lab Routine Missed menses Ordered: 03/27/2024 [facility] Comment on above: Ordered: 03/27/2024 SURESWAB(R) ADVANCED VAGINITIS PLUS, TMA SURESWAB(R) ADVANCED VAGINITIS PLUS, TMA Pathology and Cytology Routine Vaginal discharge Ordered: 05/25/2024 [facility] Comment on above: Ordered: 05/25/2024 Payers Date Payer Category Payer Commercial Managed C are - PPO [employer] [id number] 2023 [facility] [id number] 2023 Unknown [id number] 2021 Private Health Insurance [id number] 2021 Unknown [id number]. [id number] 2021 Unknown [id number] 1999 Unknown [id number] 2.16.840.1.129783.3.579.2. 593 1999 Unknown [id number] 2.16.840.1.977583.3.579.2. 593 1999 Unknown [id number] 2.16.840.1.218499.3.579.2. 593 1999 Unknown [id number] 2.16.840.1.787861.3.579.2. 593 1999 Unknown [id number] 2.16.840.1.353789.3.579.2. 593 1999 Unknown [id number] 2.16.840.1.916025.3.579.2. 593 1999 Unknown [id number] 2.16.840.1.335177.3.579.2. 593 1999 Unknown [id number] 2.16.840.1.696589.3.579.2. 1286 1999 Unknown [id number] 2.16.840.1.770388.3.579.2. 1286 1999 Unknown [id number] 2.16.840.1.517862.3.579.2. 1259 1999 Unknown [id number] 2.16.840.1.813672.3.579.2. 1259 1999 Unknown [id number] 2.16.840.1.009332.3.579.2. 1259 1999 Unknown [id number] 2.16.840.1.357994.3.579.2. 1259 1999 Unknown [id number] 2.16.840.1.598051.3.579.2. 1259 1999 Unknown [id number] 2.16.840.1.601076.3.579.2. 9 1999 Unknown [id number] 2.16.840.1.205447.3.579.2. 1259 1999 Unknown [id number] 2.16.840.1.135329.3.579.2. 9 1999 Unknown [id number] 2.16.840.1.274869.3.579.2. 1259 1999 Unknown [id number] 2.16.840.1.017912.3.579.2. 1259 1959 Private Health Insurance [id number] 1959 Unknown [id number] Social History Date Type Detail Facility [facility] Work Phone: Start: 2000 Sex Assigned At Female F [facility] Start: 01-02-2024 End: 05-27-2024 Tobacco smoking status MEIS Never smoked tobacco [facility] Start: 01-02-2024 End: 05-27-2024 Tobacco use and exposure Smokeless tobacco non-user [facility] Start: 04-27-2024 End: 08-27-2024 Alcoholic beverage intake Ex-drinker (finding) [facility] Start: 01-02-2024 End: 06-15-2024 History of Social function [facility] Start: 01-02-2024 End: 06-15-2024 Tobacco use panel [facility] Start: 01-29-2024 [facility] Start: 11-26-2023 Gender identity Identifies as female gender (finding) [facility] Start: 05-27-2024 End: 06-15-2024 Alcoholic beverage intake Lifetime non-drinker (finding) [facility] Start: 1999 Sex assigned at Not on file [facility] Start: 05-26-2024 Sex Female (finding) [facility] Medical Equipment Procedure Code Equipment Code Equipment Origin al Text Equipment Identifier Dates 1 strip by In Vi tro route Daily Use in the morning prior to breakfast, 1 hour after each meal for a total of 4times daily. [id number] Start: 07-20-2024 End: 08-19-2024 1 each by In Vit ro route Daily Use to check FSBS four times daily [id number] Start: 07-20-2024 End: 08-19-2024 Goals Date Patient Goal Desired Activity /State Personal health goal Clinical Notes 03-27-2024 to 08-27-2024 Esperanza Peter, VIROLOGY TEACHER - 08/27/2024 11:40 AM Donell Tracy, [facility] - 08/12/2024 11:10 AM Kamille Garcia, MD - 07/20/2024 10:20 AM Gautam Peter, [facility] - 06/22/2024 1:50 PM EST Note Date & Type Note Facility 08-27-2024 History of Present illness Narrative Reason for Appointment: Patient ID: Amy Mario is a 24 y.o. female who presents for Routine Visit Patient presents today for Return OB appointment. MEDICATIONS Current Outpatient Medications Medication Instructions Alcohol Swabs (Alcohol Prep Pad) 70 % pads 1 Pad, Topical, Daily, Use four times daily to check FSBS. aspirin 81 mg, Oral, Daily BD [employer] Home misc 1 each, Does not apply, As needed Blood Glucose Monitoring Suppl (D-Care Glucometer) w/Device kit 1 kit, Does not apply, Daily, Use four times daily to check FSBS. In the morning prior to breakfast & 1 hour after each meal for a total of 4times daily. Continuous Glucose Flume Maker (FreeStyle Jenise 3 [place]) device 1 each, Does not apply, Every 14 days Continuous Glucose Sensor (FreeStyle Jenise 3 Sensor) misc 1 each, Does not apply, Every 14 days metroNIDAZOLE (FLAGYL) 500 mg, Oral, 2 times daily, Do not drink alcohol while taking this medication Multiple Vitamin (multivitamin) tablet 1 tablet, Daily ALLERGIES Allergies Allergen Reactions Enterprise Flavor [Enterprise Oil] Latex Hives, Itching, Rash and Swelling [...] Diabetes Father Terry [place] Heart failure Father Trery [place] Heart failure Father's Brother A baby- [...] nursing note reviewed. Exam conducted with a flight test supervisor present. Vitals: Estimated body mass index is 35.08 kg/m as calculated from the following: Height as of 01/02/24: 5' 2 . Weight as of this encounter: 191 lb 12.8 oz. BP: 122/82 No LMP recorded. Patient is . ASSESSMENT & PLAN ICD-10-CM 1. Third trimester Z34.93 POCT urinalysis dipstick manually resulted 2. 32 weeks gestation of Z3A.32 POCT urinalysis dipstick manually resulted Patient presents today for a routine obstetrics appointment. Patient is currently 32w0d with a Estimated Date of Delivery: 10/22/24. Discussed NST/BPP from yesterday. Patients insurance did finally approve [employer] Jenise and patient is waiting for monitor to be filled by pharmacy. Patient will then be able to start checking her blood sugars as she has not been successful with finger sticks and obtaining blood sample to check levels. Patient to return to clinic in 2 weeks for routine OB appointment. Documented by Esperanza Peter LPN on behalf of: Immanuel Hilton DO documented in this encounter [facility] 08-12-2024 History of Present illness Narrative Reason [...] 1 tablet, Daily ALLERGIES Allergies Allergen Reactions Enterprise Flavor [Enterprise Oil] Latex Hives, Itching, Rash and Swelling [...] nursing note reviewed. Exam conducted with a flight test supervisor present. Vitals: Estimated body mass index is [...] by Chika Tracy LPN on behalf of: Immanuel Hilton DO documented in this encounter [facility] 07-20-2024 History of Present illness Narrative [...] mg, Oral, Daily ALLERGIES Allergies Allergen Reactions Enterprise Flavor [Enterprise Oil] Latex Hives, Itching, Rash and Swelling [...] by Lissa Garcia MA on behalf of: Immanuel Hilton DO documented in this encounter [facility] 06-22-2024 History of Present illness Narrative Reason for Appointment: Patient ID: mAy Mario is a 23 y.o. female who [...] mg, Oral, Daily ALLERGIES Allergies Allergen Reactions Enterprise Flavor [Enterprise Oil] Latex Hives, Itching, Rash and Swelling [...] by Esperanza Peter LPN on behalf of: Immanuel Hilton DO documented in this encounter [facility] 06-15-2024 History of Present illness Narrative [facility] Consult Note Reason For Consult: IVF HPI: Amy Mario is a 23 y.o. at 21w4d with Estimated Date of Delivery: 10/22/24 based who presented for consultation from Immanuel Trujillo DO regarding Chief Complaint Patient presents [...] Allergies: Allergies Allergen Reactions Latex, Natural Rubber Enterprise Meds: Prior to Admission medications Medication Sig [...] other morbidities. Based on the available evidence, [facility] recommends treatment with antihypertensive therapy for mild [...] preeclampsia prevention as is recommended by the [place] [employer] Committee Opinion No. 743. [...] contact me if you have any concerns. Cele Rodriguez MD, FACOG (she/hers) Maternal- Medicine [facility] [address] [place] [address] This document was created with [employer] technology. Though I make every effort to review the dictation as it is transcribed, on occasion the spoken word can be misinterpreted by the technology leading to inappropriate words, phrases, or sentences. This note is addressed to the requesting provider as a consultation for clinical guidance. Specific medical abbreviations are occasionally used and those are generally approved by the [place]?Board of?Obstetrics and?Gynecology?as well as?Kenzie croft abbreviations. The above plan of care was based solely on the diagnoses for which a consultation was requested. ?More frequent testing may be indicated based on her other medical/obstetrical conditions. The management of other or medical conditions is beyond the scope of requested consultation and will continue to be followed by the primary machine printer or primary care provider. Note to patient: [...] IVF Have you been seen here at [facility] in a previous ? N/a Recent ER visits or hospitalizations? no Bring blood sugar log or meter with you today? (Please bring them with you for every visit at [facility]) no Flu vaccine (May-September)? no Any concerns that you would like me to mention to the provider today? no documented in this encounter [employer] [facility] [employer] 05-25-2024 History of Present illness Narrative Reason [...] mg, Oral, Daily ALLERGIES Allergies Allergen Reactions Enterprise Flavor [Enterprise Oil] Latex Hives, Itching, Rash and Swelling [...] nursing note reviewed. Exam conducted with a flight test supervisor present. Vitals: Estimated body mass index is [...] by Esperanza Peter LPN on behalf of: Immanuel Hilton DO documented in this encounter [facility] 04-27-2024 History of Present illness Narrative [...] mg, Oral, Daily ALLERGIES Allergies Allergen Reactions Enterprise Flavor [Enterprise Oil] Latex Hives, Itching, Rash and Swelling [...] Relation Name Age of Onset Diabetes Father Teryr England Heart failure Father Terry England Heart [...] nursing note reviewed. Exam conducted with a flight test supervisor present. Vitals: Estimated body mass index is [...] IVF . Patient to also have [facility] referral for IVF and Level II [...] or undercooked meat, and stay away from [facility]. Patient has been consulted regarding any further do's and don'ts of . Patient voiced understanding and all questions and concerns were answered. Orders Placed This Encounter Procedures POCT urinalysis dipstick manually resulted Follow Up: Patient is to return in 4 weeks for routine OB appointment. Documented by Esperanza Peter LPN on behalf of: Immanuel Hilton DO documented in this encounter [facility] 03-27-2024 History of Present illness Narrative [...] Procedure Laterality Date TONSILLECTOMY Allergies Allergen Reactions Enterprise Flavor [Enterprise Oil] Latex Hives, Itching, Rash and Swelling [...] or undercooked meat, and stay away from [facility]. Patient has also been advised to [...] Evaluation note No assessment inform ation available [facility] [place] Work Phone: Evaluation note Diagnosis Well woman exam with routine gynecological exam Routine gynecological examination Second trimester state, incidental Vaginal discharge Leukorrhea, not specified as infective STD exposure [facility] Diagnosis 21 weeks gestation of - Primary Chronic hypertension affecting In vitro fertilization Encounter for assisted reproductive fertility procedure cycle [facility] Diagnosis Second trimester state, [...] fertility procedure cycle [facility] Diagnosis Third trimester state, incidental 32 weeks gestation of documented in this encounter [facility]InstructionsNot on filedocumented in this encounterProMedial [facility] SystemInstructionsNot on filedocumented in this encounterPro[facility]* Attachments The following attachments cannot be sent through Care Everywhere. * Preeclampsia ([place]) [facility] Purpose Family History Relationship Condition Age at Onset Recorded Date/T yosi family member Unknown Heart disease Unknown Advance Directives Advance Directive Response Recorded Date/ Time Advance Directives No January 01 9:07am Chief Complaint and Reason for Visit Chief Complaint Congestion Additional Source Comments INFORMATION SOURCE (unrecogn ized section and content) DATE CREATED AUTHOR 03/06/2019 [facility] DATE CREATED AUTHOR AUTHOR'S ORGANIZ ATION 12/21/2021 [facility] DATE CREATED AUTHOR AUTHOR'S ORGANIZ ATION 12/01/2022 [facility] DATE CREATED AUTHOR AUTHOR'S ORGANIZ ATION 06/17/2024 [facility] DATE CREATED AUTHOR AUTHOR'S ORGANIZ ATION 08/29/2024 [facility] Care Teams (unrecognized sec tion and content) Team Status: Active Member Role Status Dates Damon Stover DO Primary Care Provider Active Team Status: Inactive Member Role Status Dates Damon Stover DO Primary Care Provider Active Start: January 02, 2024 End: January 02, 2024 Teresa Sanchez APRN Attending Provider Active S tart: January 02, 2024 End: January 02, 2024 Systems Architect Relationship Specialty Start Date End Date Akila Grant MD [address] [place] [address] PCP - General Family Medicine 11/27/23 Systems Architect Relationship Specialty Start Date End Date Akila Grant MD [address] [place] [address] PCP - General Family Medicine 11/27/23 Systems Architect Relationship Specialty Start Date End Date Akila Grant MD [address] [place] [id number] PCP - General Family Medicine 11/27/23 Systems Architect Relationship Specialty Start Date End Date Akila Grant MD [address] [place] [phone] PCP - General Family Medicine 11/27/23 Systems Architect Relationship Specialty Start Date End Date Akila Grant MD [address] [facility] [place] [phone] PCP - General Family Medicine 11/27/23 Systems Architect Relationship Specialty Start Date End Date Akila Grant MD [address] [facility] [place] [phone] PCP - General Family Medicine 11/27/23 Systems Architect Relationship Specialty Start Date End Date Akila Grant MD [address] [facility] [place] [address] PCP - General Family Medicine 11/27/23 Systems Architect Relationship Specialty Start Date End Date Akila Grant MD [address] [facility] [place] [phone] PCP - General Family Medicine 11/27/23 Systems Architect Relationship Specialty Start Date End Date Akila Grant MD [address] [facility] [place] [phone] PCP - General Family Medicine 11/27/23 Systems Architect Relationship Specialty Start Date End Date Akila Grant MD [address] [facility] [place] [address] PCP - General Family Medicine 11/27/23 Systems Architect Relationship Specialty Start Date End Date Akila Grant MD [address] [facility] [place] [address] PCP - General Family Medicine 11/27/23 Systems Architect Relationship Specialty Start Date End Date Akila Grant MD [address] [facility] [place] [address] PCP - General Family Medicine 11/27/23 Systems Architect Relationship Specialty Start Date End Date Akila Grant MD [address] [facility] [place] [phone] PCP - General Family Medicine 11/27/23 Systems Architect Relationship Specialty Start Date End Date Akila Grant MD [address] [place] [facility] [place] [phone] PCP - General Family Medicine 11/27/23 Goals [...] BE BASED ON THE PRIMARY CLINICAL RECORDS. [employer] [facility]. provides no warranty or guarantee of the accuracy or completeness of information in this document.
[2024-09-02 08:29] VITALS: TEMP 36
[2024-09-02 08:32] VITALS: BP 149/82; PULSE 116
[2024-09-02 08:53] VITALS: BP 136/75; PULSE 104
== END 2024-09-02 09:11 | disposition home or self-care (01) ==
LOC: US 01:03 → FBC 07:58
PROVIDERS: PCP Family Medicine; Visit Provider Obstetrics & Gynecology
DX: Z31.83 Encounter for assisted reproductive fertility procedure cycle (principal); O24.419 Gestational diabetes mellitus in pregnancy, unspecified control; Z3A.32 32 weeks gestation of pregnancy
CPT/HCPCS: 76818

== ENCOUNTER 2024-09-05 06:28 | Outpatient (OUT) | payer OTHER, BC, SELFPAY ==
--- OUTSIDE RECORDS SUMMARY | 2024-09-05 06:31 | XMS_ITS | CCD ---
Author Organization [facility] Care Team Providers Care Telemarketer Name Role Phone YOBANI ., DR SMITH [...] Latex Drug allergy (disorder) 0 hives [facility] Repository (1 source) orange flavor Drug allergy (disorder) 0 [facility] Rep[facility] (5 sources) Eagle - fruit; Translations: [ORANGE] 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 4 anaphylaxis [facility] (20 sources) Latex 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 4 Hives, Itching, Rash, Swelling [facility] (20 sources) orange allergenic extract Drug Allergy 4 [facility] Work Phone: (1 source) natural [...] 2024 12:00am aspirin 81 mg chewable tablet (4 sources) Platelet Aggregation Inhibitor, Nonsteroidal Anti-inflammatory Drug [...] Glucose Monitoring Suppl (D-Care Glucometer) w/Device kit (10 sources) Start: 07-20-2024 End: 07-20-2025 Blood Glucose [...] MCG/0.5ML injection 11/26/2023 03/27/2024 Discontinued Continuous Glucose Am[employer] Storekeeper (FreeStyle Jenise 3 [place]) device (4 sources) Start: 08-20-2024 Continuous Glucose Am[employer] Storekeeper (FreeStyle Jenise 3 [place]) device Indications: Gestational diabetes mellitus (GDM), antepartum, gestational diabetes method of control unspecified , Third trimester 1 each every 14 (fourteen) days 1 each 3 08/20/2024 Active Continuous Glucose Sensor (FreeStyle Jenise 3 Sensor) [facility] (4 sources) Start: 08-20-2024 Continuous Glucose Sensor (FreeStyle Jenise 3 Sensor) [facility] Indications: Gestational diabetes mellitus (GDM), antepartum, gestational diabetes method of control unspecified , Third trimester 1 each every 14 (fourteen) days 2 each 3 08/20/2024 Active isopropyl alcohol 0.7 ml/ml medicated pad (10 sources) Start: 07-20-2024 Alcohol Swabs (Alcohol Prep [...] of ] 06-22-2024 Episodic Residual codes; unclassified (13 sources) Gestation period, 26 weeks; Translations: [26 [...] SINGLE THYROID NODULE] Onset: 04-08-2022 Chronic Unclassified (19 sources) OB Reminders Onset: 05-18-2024 05-18-2024 Unclassified [...] Facility US OB BPP W NON-STRESS on 09-02-2024 [place] [address] Ultrasound Report Signed Patient: AMY MARIO MR#: [id number] : 2000 Acct:[id number] Age/Sex: 24 / F ADM Date: 09/02/24 Loc: US Attending Dr: Immanuel Hilton D.O. Ordering Physician: Immanuel Hilton D.O. Date of Service: 09/02/24 Procedure(s): US OB BPP w non-stress Accession Number(s): [id number] cc: Akila Grant M.D.; Immanuel Hilton D.O. [address] [address] Patient Name: AMY MARIO MRN: [id number] date: 2000 Sex: F Assigned Patient Location: [facility] Current Patient Location: Accession/Order Number: [id number] Exam Date: 09/02/2024 08:03 Report Date: 09/02/2024 09:22 At the request of: IMMANUEL HILTON Procedure: US OB BPP w non-stress EXAMINATION: US OB BPP w non-stress HISTORY:Gestational diabetes mellitus O24.419 COMPARISON: Ultrasound OB biophysical 08/26/2024 TECHNIQUE: Ultrasound biophysical profile was performed in the radiology department. BREATHING MOVEMENTS: 2 GROSS BODY MOVEMENTS: 2 TONE: 2 QUALITATIVE AMNIOTIC FLUID VOLUME: 2 PRESENTATION: CEPHALIC HEART RATE: 161.68 bpm AMNIOTIC FLUID VOLUME: 12.07 cm GESTATIONAL AGE: 32 weeks 6 days US/US OB BPP w non-stress IMPRESSION: 1. Total biophysical profile score: 8 Electronically authenticated by: LUCHO MIXON Date: 09/02/2024 09:22 Dictated By: Lucho Mixon M.D. Signed By: 09/02/24924 DD/ 1 TD/TT: Frame Catcher: [facility] Radiology, Radiologist, MD - 09/02/2024 [place] [address] Ultrasound Report Signed Patient: AMY MARIO MR#: [id number] : 2000 Acct:[id number] Age/Sex: 24 / F ADM Date: 09/02/24 Loc: US Attending Dr: Immanuel Hilton D.O. Ordering Physician: Immanuel Hilton D.O. Date of Service: 09/02/24 Procedure(s): US OB BPP w non-stress Accession Number(s): [id number] cc: Akila Grant M.D.; Immanuel Hilton D.O. The [place] [id number] Patient Name: AMY MARIO MRN: [facility]:[id number] date: 2000 Sex: F Assigned Patient Location: [facility] Current Patient Location: Accession/Order Number: [id number] Exam Date: 09/02/2024 08:03 Report Date: 09/02/2024 09:22 At the request of: IMMANUEL HILTON Procedure: US OB BPP w non-stress EXAMINATION: US OB BPP w non-stress HISTORY:Gestational diabetes mellitus O24.419 COMPARISON: Ultrasound OB biophysical 08/26/2024 TECHNIQUE: Ultrasound biophysical profile was performed in the radiology department. BREATHING MOVEMENTS: 2 GROSS BODY MOVEMENTS: 2 TONE: 2 QUALITATIVE AMNIOTIC FLUID VOLUME: 2 PRESENTATION: CEPHALIC HEART RATE: 161.68 bpm AMNIOTIC FLUID VOLUME: 12.07 cm GESTATIONAL AGE: 32 weeks 6 days US/US OB BPP w non-stress IMPRESSION: 1. Total biophysical profile score: 8 Electronically authenticated by: LUCHO MIXON Date: 09/02/2024 09:22 Dictated By: Lucho Mixon M.D. Signed By: 09/02/24924 DD/ 1 TD/TT: Frame Catcher: [facility] Radiology Study observation (narrative) [facility] US OB BPP W NON-STRESS Ordered By: Radiologist Radiology on 09-02-2024 [facility] Work Phone: US OB FOLLOW UP TRANSABDOMIN AL APPROACHon [...] 2164 gm / 4 lbs, 12 oz (3543-6146 gm) [place] Normal: 1953 gm (0233-8979 mg) [place] 80% for 32.0 wks (GA [...] report is generated using voice recognition reporting (Linkedwithe). On occasion [employer]optim[employer] erroneously drops words from the report or [...] UA Positive Negative - 4(70) +++ mg/dL [facility] Comment on above: small Blood, UA Negative Negative - 50 Jimy/mcL [facility] Clarity, [facility], UA Yellow [facility] Glucose, UA Positive Negative - 2000(110) ++++ mg/dL [facility] Comment on above: 100 Interpretation and review of laboratory results Abnormal [facility] Ketones, UA Positive Negative - 160(16) ++++ mg/dL [facility] Comment on above: trace Leukocytes, UA Positive Negative - 500+++ Mychal/mcL [facility] Comment on above: large Nitrite, UA Negative Negative - Positive [facility] pH, UA 6.5 5 - 9 [facility] Protein, UA Positive Negative - 2000(20) ++++ mg/dL [facility] Comment on above: 30 Spec Grav, UA 1.03 1 - 1.03 [facility] Urobilinogen, UA 0.2 0.2 - 12 mg/dL [facility] US OB BPP W NON-STRESS on 08-26-2024 [place] [address] Ultrasound Report Signed Patient: AMY MARIO MR#: [id number] : 2000 Acct:[id number] Age/Sex: 24 / F ADM Date: 08/26/24 Loc: [facility] 251-[address]: Immanuel Hilton D.O. Ordering Physician: Immanuel Hilton D.O. Date of Service: 08/26/24 Procedure(s): US OB BPP w non-stress Accession Number(s): [id number] cc: Akila Grant M.D.; Immanuel Hilton D.O. [address] [address] Patient Name: AMY MARIO MRN: [facility]:[id number] date: 2000 Sex: F Assigned Patient Location: [facility] Current Patient Location: [facility] Accession/Order Number: [id number] Exam Date: 08/26/2024 08:00 Report Date: 08/26/2024 [...] Signed By: 08/26/24 0858 DD/ 0856 TD/TT: Frame Catcher: [facility] Radiology, Radiologist, MD - 08/26/2024 [place] [address] Ultrasound Report Signed Patient: AMY MARIO MR#: [id number] : 2000 Acct:[id number] Age/Sex: 24 / F ADM Date: 08/26/24 Loc: [facility] 251-[address]: Immanuel Hilton D.O. Ordering Physician: Immanuel Hilton D.O. Date of Service: 08/26/24 Procedure(s): US OB BPP w non-stress Accession Number(s): [id number] cc: Akila Grant M.D.; Immanuel Hilton D.O. The [address] [address] Patient Name: AMY MARIO MRN: [facility]:[id number] date: 2000 Sex: F Assigned Patient Location: [facility] Current Patient Location: [facility] Accession/Order Number: [id number] Exam Date: 08/26/2024 08:00 Report Date: 08/26/2024 [...] Mixon M.D. Signed By: 08/26/2458 DD/ TD/TT: Frame Catcher: [facility] Radiology Study observation (narrative) [facility] US OB BPP W NON-STRESS Ordered By: Radiologist Radiology on 08-26-2024 [facility] Work Phone: Urinalysis macro (dipstick) panel (U)on 08-12-2024 Bilirubin, UA Negative Negative - 4(70) +++ mg/dL [facility] Blood, UA Negative Negative - 50 Jimy/mcL [facility] Clarity, UA Clear [facility] Color, UA Yellow [facility] Glucose, UA Negative Negative - 2000(110) ++++ mg/dL [facility] Interpretation and review of laboratory results Abnormal [facility] Ketones, UA Positive Negative - 160(16) ++++ mg/dL [facility] Comment on above: trace Leukocytes, UA Positive Negative - 500+++ Mychal/mcL [facility] Comment on above: large Nitrite, UA Negative Negative - Positive [facility] pH, UA 5.5 5 - 9 [facility] Protein, UA Trace Negative - 2000(20) ++++ mg/dL [facility] Spec Grav, UA 1.03 1 - 1.03 [facility] Urobilinogen, UA 0.2 0.2 - 12 mg/dL [facility] ALL CBC WITH AUTO DIFFon BASOPHILS ABSOLUTE AUTO 0 [facility] Basophils/100 WBC (Bld) 0.3 % 0.2 - 2.0 % [facility] Eosinophils/100 WBC (Bld) 1 % 0.9 - 7.0 % [facility] Erythrocyte distribution width (RBC) [Ratio] 13.2 % 11.0 - 15.0 % [facility] Hematocrit (Bld) [Volume fraction] 32.6 % Low 36.0 - 48.0 % [facility] Hemoglobin (Bld) [Mass/Vol] 11.3 g/dL Low 12.0 - 16.0 g/dL [facility] IMMATURE GRANULOCYTES ABS AUTO 0.[address] [facility] Immature granulocytes/100 WBC (Bld) 0.9 % High 0.0 - 0.5 % [facility] Interpretation and review of laboratory results Abnormal [facility] LYMPHOCYTES ABSOLUTE AUTO 1.6 [facility] Lymphocytes/100 WBC (Bld) 19.6 % Low 20.5 - 60.0 % [facility] MCH (RBC) [Entitic mass] 30.4 pg 26.7 - 34.[address] [facility] MCHC (RBC) [Mass/Vol] 34.7 g/dL 29.9 - 35.2 g/dL [facility] MCV (RBC) [Entitic vol] 87.6 fL 81.0 - 99.[address] [facility] MONOCYTES ABSOLUTE AUTO 0.6 [facility] Monocytes/100 WBC (Bld) 8 % 1.7 - 12.0 % [facility] NEUTROPHILS ABSOLUTE AUTO 5.6 [facility] Neutrophils/100 WBC (Bld) 70.2 % 43.0 - 75.0 % [facility] Platelet mean volume (Bld) [Entitic vol] 9.7 fL 9.5 - 13.[address] [facility] TBH EO # 0.1 [facility] TB PLT 400 [facility] RBC 3.[address] [facility] TB WBC 8 [facility] Urinalysis macro (dipstick) panel (U)on 06-22-2024 Bilirubin, UA Negative Negative - 4(70) +++ mg/dL [facility] Blood, UA Negative Negative - 50 Jimy/mcL [facility] Clarity, UA Clear [facility] Color, UA Yellow [facility] Glucose, UA Negative Negative - 1999(110) ++++ mg/dL [facility] Interpretation and review of laboratory results Abnormal [facility] Ketones, UA Positive Negative - 160(16) ++++ mg/dL [facility] Comment on above: 15 Leukocytes, UA Positive Negative - 500+++ Mychal/mcL [facility] Comment on above: small Nitrite, UA Negative Negative - Positive [facility] pH, UA 5.5 5 - 9 [facility] Protein, UA Trace Negative - 1999(20) ++++ mg/dL [facility] Spec Grav, UA 1.03 1 - 1.03 [facility] Urobilinogen, UA 0.2 0.2 - 12 mg/dL [facility] IGP,APTIMA HPV,AGE GDLNon AGE GDLN ACOG TESTING Note . [facility] Comment on above: TESTS RESULT FLAG UN ITS REF RANGE LAB Clinician Provided Cytology Information Source.............Cervix Other.............. No. of containers..01 ThinPrep Vial Age Algo ACOG Michelle... - 01 FLAG LEGEND: L-Low Normal,H-High Normal,LL-Alert Low,HH-Alert High <-Panic Low,>-Panic High,A-Abnormal,AA-Critical Abnormal Performed at: 01 =G [facility] [address] [facility], [place] [address] Mar Rivera MD, IGP, RFX APTIMA HPV ASCU Note . [facility] Comment on above: TESTS RESULT FLAG UN ITS REF RANGE LAB DIAGNOSIS: 02 NEGATIVE FOR INTRAEPITHELIAL LESION OR MALIGNANCY. FUNGAL ORGANISMS MORPHOLOGICALLY CONSISTENT WITH CARLOS SPECIES ARE PRESENT. Specimen adequacy: 02 Satisfactory for evaluation. No endocervical component is identified. An endocervical component is not commonly seen in the patient. Performed by: Judy Vera, Hydrology Teacher ([facility]) . 02 Note: Note 02 [...] High,A-Abnormal,AA-Critical Abnormal Performed at: 02 WB [facility] [address] [place] [address] Mar Rivera MD, Performed at: =G - [facility] [address] [facility], [place] [id number] Nicu Rn: Mar Rivera MD, Phone: [phone] Performed at: - [facility] [address] [place], [place] [id number] Nicu Rn: Mar Rivera MD, Phone: [phone] SPATULA-ALONE CERVIX [facility] AFP, SERUM, OPEN SPINA BIFID Aon 05-30-2024 AFP MOM [address] [facility] AFP VALUE 55.4 ng/mL . [facility] COMMENT: Comment . [facility] Comment on above: Ivet Mobley , Ph.D., [facility] Director References: Available Upon Request. Multiples Of Median Cutoffs For AFP Elevations [place] Rosario 2.5 Black 2.8 IDD 2.0 Twins 4.5 Abbreviation Definitions IDD - Insulin Dep Diabetes OSBR - Open Spina Bifida Risk For further inquiries contact [facility] at [phone]. This test was developed and its performance characteristics determined by [employer]. It has not been cleared or approved by the Food and Drug Administration. Performed at: [facility] [address] [place], [place] [id number] Nicu Rn: Kristina Carter [facility], Phone: [phone] GEST. AGE ON COLLECTION DATE 17.[address] [facility] GESTAT. AGE BASED ON LMP . [facility] Comment on above: Recalculations are n ot recommended when gestational dating by LMP and ultrasound are within 10 days. INSULIN DEP DIABETES No . [facility] INTERPRETATION Comment . [facility] Comment on above: Interpretation: Scre en [...] Customer Services to discuss available options. The [employer] recommends amniocentesis be offered to women age 35 and older. MATERNAL AGE AT SARA 24.[address] [facility] MULTIPLE GESTATION No . [facility] OSBR RISK [address] [facility] RACE . [facility] RESULTS Report . [facility] TEST RESULTS: Negative . [facility] WEIGHT [address] [facility] N N LMP [id number] 4 18 N 1 Y 185 N N N N N White/ [facility] Urinalysis macro (dipstick) panel (U)on 04-27-2024 Bilirubin, UA Positive Negative - 4(70) +++ mg/dL [facility] Comment on above: small Blood, UA Negative Negative - 50 Jimy/mcL [facility] Clarity, UA Clear [facility] Color, UA Yellow [facility] Glucose, UA Negative Negative - 2000(110) ++++ mg/dL [facility] Interpretation and review of laboratory results Abnormal [facility] Ketones, UA Positive Negative - 160(16) ++++ mg/dL [facility] Comment on above: trace Leukocytes, UA Positive Negative - 500+++ Mychal/mcL [facility] Comment on above: small Nitrite, UA Negative Negative - Positive [facility] pH, UA 6.0 5 - 9 [facility] Protein, UA Negative Negative - 2000(20) ++++ mg/dL [facility] Spec Grav, UA 1.030 1 - 1.03 [facility] Urobilinogen, UA 0.2 0.2 - 12 mg/dL [facility] ALL CBC WITH AUTO DIFFon BASOPHILS ABSOLUTE AUTO 0.0 [facility] Basophils/100 WBC (Bld) 0.1 % Low 0.2 - 2.0 % [facility] Eosinophils/100 WBC (Bld) 0.9 % 0.9 - 7.0 % [facility] Erythrocyte distribution width (RBC) [Ratio] 13.0 % 11.0 - 15.0 % [facility] IMMATURE GRANULOCYTES ABS AUTO 0.03 [facility] Immature granulocytes/100 WBC (Bld) 0.3 % 0.0 - 0.5 % [facility] Interpretation and review of laboratory results Abnormal [facility] LYMPHOCYTES ABSOLUTE AUTO 2.3 [facility] Lymphocytes/100 WBC (Bld) 26.6 % 20.5 - 60.0 % [facility] MCH (RBC) [Entitic mass] 30.1 pg 26.7 - 34.[address] [facility] MCHC (RBC) [Mass/Vol] 34.6 g/dL 29.9 - 35.2 g/dL [facility] MCV (RBC) [Entitic vol] 87.0 fL 81.0 - 99.[address] [facility] MONOCYTES ABSOLUTE AUTO 0.4 [facility] Monocytes/100 WBC (Bld) 4.1 % 1.7 - 12.0 % [facility] NEUTROPHILS ABSOLUTE AUTO 5.9 [facility] Neutrophils/100 WBC (Bld) 68.0 % 43.0 - 75.0 % [facility] Platelet mean volume (Bld) [Entitic vol] 9.6 fL 9.5 - 13.5 fL [facility] EO # 0.1 [facility] PLT 400 [facility] RBC 4.55 [facility] WBC 8.7 [facility] CBC without diffon Rbc Mcv (Fl) By Automated Count 87 [facility] Laboratory - Hematology and Cell countson 04-08-2024 Hematocrit (Bld) [Volume fraction] 39.6 % [facility] Hemoglobin (Bld) [Mass/Vol] 13.7 g/dL [facility] No Panel Informationon 04-08 [facility] Rubella IGG immune statuson 04-08-2024 Rubella immune IgG 2.32 [facility] Syphilis Total(Unknown Syphi lis Status)on 04-08-2024 Syphilis Non-Reactive [facility] Type and screenon 04-08-2024 Abo/Rh(D) Positive [facility] HCG ( test) Ql (U)o n 03-27-2024 Interpretation and review of laboratory results Abnormal [facility] Preg Test, Ur Positive [facility] Urinalysis macro (dipstick) panel (U)on 03-27-2024 Bilirubin, UA Negative Negative - 4(70) +++ mg/dL [facility] Blood, UA Negative Negative - 50 Jimy/mcL [facility] Clarity, UA Clear [facility] Color, UA Yellow [facility] Glucose, UA Negative Negative - 2000(110) ++++ mg/dL [facility] Interpretation and review of laboratory results Normal [facility] Ketones, UA Negative Negative - 160(16) ++++ mg/dL [facility] Leukocytes, UA Negative Negative - 500+++ Mychal/mcL [facility] Nitrite, UA Negative Negative - Positive [facility] pH, UA 5.5 5 - 9 [facility] Protein, UA Negative Negative - 2000(20) ++++ mg/dL [facility] Spec Grav, UA 1.025 1 - 1.03 [facility] Urobilinogen, UA 0.2 0.2 - 12 mg/dL [facility] PROGESTERONEon 07-27-2022 Progesterone 26.9 ng/mL Normal [facility] Comment on above: Result Comment: Foll icular phase 0.1 - 0.9 Luteal phase 1.8 - 23.9 Ovulation phase 0.1 - 12.0 First trimester 11.0 - 44.3 Second trimester 25.4 - 83.3 Third trimester 58.7 - 214.0 Postmenopausal 0.0 - 0.1 Performed By: #### P DONNAES #### [facility] [address] [place] [address] Dr. Ryan Francisco PREG QUANT HCGon 07-12-2022 HCG QUANT <1 Normal [facility] Comment on above: Performed By: #### P REGQNT #### [facility] [address] [place] [address] [address] Ryan Francisco HCG RANGE SEE BELOW Normal [facility] Comment on above: Result Comment: 5-50 0.2-1 WEEK 50-500 1-2 WEEKS 100-5,000 2-3 WEEKS 500-10,000 3-4 WEEKS 1,000-50,000 4-5 WEEKS 10,000-100,000 5-6 WEEKS 15,000-200,000 6-8 WEEKS 10,000-100,000 2-3 MONTHS Performed By: #### P REGQNT #### [facility] [address] [place] [address] Dr. Ryan Francisco XR HYSTEROSALPINGO EXPon XR [...] CLEMENTINE DEWEY Date: 2022-07-12 12:34 Normal [facility] PROGESTERONEon 06-29-2022 Progesterone 4.6 ng/mL Normal [facility] Comment on above: Result Comment: Foll icular phase 0.1 - 0.9 Luteal phase 1.8 - 23.9 Ovulation phase 0.1 - 12.0 First trimester 11.0 - 44.3 Second trimester 25.4 - 83.3 Third trimester 58.7 - 214.0 Postmenopausal 0.0 - 0.1 Performed By: #### P BRETT #### [facility] [address] [place] [address] Dr. Ryan Francisco PROGESTERONEon 06-01-2022 Progesterone 18.9 ng/mL Normal [facility] Comment on above: Result Comment: Foll icular phase 0.1 - 0.9 Luteal phase 1.8 - 23.9 Ovulation phase 0.1 - 12.0 First trimester 11.0 - 44.3 Second trimester 25.4 - 83.3 Third trimester 58.7 - 214.0 Postmenopausal 0.0 - 0.1 Performed By: #### P BRETT #### [facility] [address] [place] [address] Dr. Ryan Francisco US PELVIS AND TRANSVAGon [...] CLEMENTINE DEWEY Date: 2022-05-17 17:25 Normal [facility] PROGESTERONEon 04-29-2022 Progesterone 5.1 ng/mL Normal [facility] Comment on above: Result Comment: Foll icular phase 0.1 - 0.9 Luteal phase 1.8 - 23.9 Ovulation phase 0.1 - 12.0 First trimester 11.0 - 44.3 Second trimester 25.4 - 83.3 Third trimester 58.7 - 214.0 Postmenopausal 0.0 - 0.1 Performed By: #### P BRETT ####[facility] [id number] [place], [place] [address]KfDr. Ryan Francisco ANTI-MULLERIAN HORMONEon Anti-Mullerian Hormone (AMH) 6.09 ng/mL Normal [facility] Comment on above: Result Comment: For assays employing antibodies, the possibility exists for interference by heterophile antibodies in the samples.1 1.Steffen Wilson Interferences in Immunoassays - still a threat. Clin. Chem. 2000; 46: 7718-1093. This test was developed and its performance characteristics determined by [employer]. It has not been cleared or approved by the Food and Drug Administration. Reference Range: Females 20 - 25y: 1.23 - 11.51 Median 4.70 AMH concentrations of >= 1.06 ng/mL is correlated with a better response to ovarian stimulation, produced more retrievable oocytes and higher odds of live according to Herber et al. Fertility and Sterility. 2010: 94:9695-4962. The current AMH test method correlates with [...] tumor. Performed By: #### A WEI #### [facility] [address] [place], [place] [address] Dr. Ryan Francisco FSHon 04-05-2022 FSH 3.6 mIU/mL Normal [facility] Comment on above: Result Comment: Adul t Female: Follicular phase 3.5 - 12.5 Ovulation phase 4.7 - 21.5 Luteal phase 1.7 - 7.7 Postmenopausal 25.8 - 134.8 Performed By: #### L BCFORMERLY [facility] #### [facility] [address] [place] [address] Dr. Ryan Francisco LUTEINIZING HORMONE (LH)on 0 04-05-2022 LH 6.8 mIU/mL Normal [facility] Comment on above: Result Comment: Adul t Female: Follicular phase 2.4 - 12.6 Ovulation phase 14.0 - 95.6 Luteal phase 1.0 - 11.4 Postmenopausal 7.7 - 58.5 Performed By: #### L BCL ####[facility] [facility] [id number] [address]Dr. Ryan Francisco CBC AUTO DIFFon 04-04-2022 BASO # 0.0 103/ul Normal 0.0-0.1 [facility] Comment on above: Performed By: #### C BC #### [facility] [address] [place] [address] Dr. Ryan Francisco Basophils/100 WBC (Bld) 0.3 % Normal 0.2-2.0 [facility] Comment on above: Performed By: #### C BC #### [facility] [address] [place] [address] Dr. Ryan Francisco EO # 0.1 103/ul Normal 0.0-0.7 [facility] Comment on above: Performed By: #### C BC #### [facility] [address] [place] [address] Dr. Ryan Francisco Eosinophils/100 WBC (Bld) 1.7 % Normal 0.9-7.0 [facility] Comment on above: Performed By: #### C BC #### [facility] [address] [place] [address] Dr. Ryan Francisco Erythrocyte distribution width (RBC) [Ratio] 12.7 % Normal 11.0-15.0 [facility] Comment on above: Performed By: #### C BC #### [facility] [address] [place] [address] Dr. Ryan Francisco Hematocrit (Bld) [Volume fraction] 39.7 % Normal 36.0-48.0 [facility] Comment on above: Performed By: #### C BC #### [facility] [address] [place] [address] Dr. Ryan Francisco Hemoglobin (Bld) [Mass/Vol] 13.4 g/dL Normal 12.0-16.0 [facility] Comment on above: Performed By: #### C BC #### [facility] [address] [place] [address] Dr. Ryan Francisco IG # 0.03 10e3/ul Normal 0.00-0.03 [facility] Comment on above: Performed By: #### C BC #### [facility] [address] [place] [address] Dr. Ryan Francisco IG % 0.5 % Normal 0.0-0.5 [facility] Comment on above: Performed By: #### C BC #### [facility] [address] [place] [address] Dr. Ryan Francisco LYMPH # 1.6 103/ul Normal 1.2-3.8 [facility] Comment on above: Performed By: #### C BC #### [facility] [address] [place] [address] Dr. Ryan Francisco Lymphocytes/100 WBC (Bld) 27.1 % Normal 20.5-60.0 [facility] Comment on above: Performed By: #### C BC #### [facility] [address] [place] [address] Dr. Ryan Francisco MANUAL DIFF REQ NO Normal [facility] Comment on above: Performed By: #### C BC #### [facility] [address] [place] [address] Dr. Ryan Francisco MCH (RBC) [Entitic mass] 29.6 pg Normal 26.7-34.0 [facility] Comment on above: Performed By: #### C BC #### [facility] [address] [place] [address] Dr. Ryan Francisco MCHC (RBC) [Mass/Vol] 33.8 g/dL Normal 29.9-35.2 [facility] Comment on above: Performed By: #### C BC #### [facility] [address] [address] [address] Ryan Francisco MCV (RBC) [Entitic vol] 87.6 fL Normal 81.0-99.0 [facility] Comment on above: Performed By: #### C BC #### [facility] [address] [address] [address] Ryan Francisco MONO # 0.4 103/ul Normal 0.3-0.8 [facility] Comment on above: Performed By: #### C BC #### [facility] [address] [place] [address] Dr. Ryan Francisco Monocytes/100 WBC (Bld) 6.7 % Normal 1.7-12.0 [facility] Comment on above: Performed By: #### C BC #### [facility] [address] [place] [address] Dr. Ryan Francisco NEUT # 3.7 103/ul Normal 1.4-6.5 [facility] Comment on above: Performed By: #### C BC #### [facility] [address] [place] [address] Dr. Ryan Francisco Neutrophils/100 WBC (Bld) 63.7 % Normal 43.0-75.0 [facility] Comment on above: Performed By: #### C BC #### [facility] [address] [place] [address] Dr. Ryan Francisco Platelet mean volume (Bld) [Entitic vol] 9.9 fL Normal 9.5-13.5 [facility] Comment on above: Performed By: #### C BC #### [facility] [address] [place] [address] Dr. Ryan Francisco PLT 421 103/ul Normal 150-450 [facility] Comment on above: Performed By: #### C BC #### [facility] [address] [place] [address] Dr. Ryan Francisco RBC 4.53 106/ul Normal 4.20-5.40 [facility] Comment on above: Performed By: #### C BC #### [facility] [address] [place], [place] [address] Dr. Ryan Francisco WBC 5.8 103/ul Normal 4.0-11.0 [facility] Comment on above: Performed By: #### C BC #### [facility] [address] [place], [place] [address] Dr. Ryan Francisco FREE T4on 04-04-2022 Free T4 [Mass/Vol] 0.99 ng/dL Normal 0.76-1.46 [facility] Comment on above: Performed By: #### F T4 #### [facility] [address] [place], [place] [address] Dr. Ryan Francisco TSHon 04-04-2022 TSH 3.086 uIU/mL Normal 0.358-3.740 [facility] Comment on above: Performed By: #### T SH ####[facility] [address] [place], [place] [address]HhDr. Ryan Francisco US PELVIS AND TRANSVAGon US [...] by: LUCHO MIXON Date: 2022-04-04 16:38 Normal [facility] Auth for Release of Medical Recordson 12-20-2021 Auth for Release of Medical Records [id number]# 1.00CD:127 Normal [facility] Coding Summary.on 08-22-2021 Coding Summary. CD:[id number] Gh0bWw+PGhlYWQ+PE1FV YBiH69fnGSoxC9PX4zTM K2UZQSWJRDOPI4TCS2hg KW9PEvwJ1BsavMi QvkjuZFsDD21FFp3YKR3 yNixJTgwjA9roBUqB2x8 EiOrAG29iC72YQfuXBBi GpU5LlPlrrrowVGn M3hvYbPtsRWgMyt+PHRh YmxlIHdpZHRoPScxMDAl DfRpkKmyQN0zEl2mRWHf LWNvbGxhcHNlOiBj m3gjIIVoZNzuDG0xfGzl D6EgsHN3UVGfa6d1Ak27 dHI+CRRmVCY3rJlqSPat p880ItOzu4keHIX5 yBNrSXeuXYL9S27fj5O3 EUKbRGBlBIY5tOJ6kB9z rYofkivyQ5SgqDXhAcZ2 UZG0mIDgqT7zsUbp bhlelJ6kZuo+B24VWZ5L AYDHSY3YSvv9H8RjFquu dHI+OA53TVGwIW11vYTg oATbu3awcZm9DgKd GMFdAOF1bMhgTKlvx2Np LVAxA43gaRKom8Y5EOUv pTnbvMLeXpPwgYB6dZ5q BRkqurilv9eabcwq Zdgcd3mchz45pO94U18r UWhyYHWoGOA9XBCpWJQa qHwtue0hkY9lOh0+IDxj r0yqh9cjlHp8WlSg IIVzocMrgInoISZ7e7Hx Ev81P7PvjWkvb6ClLvw0 zx57iBCgz4B3xDN1CXug IFFibC7xKZiaEiH8 OLTlUcRaiI21jCXpDFvm Ka1itFmsdXooEN2cPXBo qyedTNPweJ0pXQUizZGl pVviJP3hNVIczoll r519OjTlCSS2KABzyWYh N1UqzO5lDlMcMBXqIOWp I9OqnWDnEBihY310IKyp NxC3FDLpziVhQ3Wv WPPgqJggHxW0q9O5Ed4F q1YqbzkoXBA3IMtjWVDe WwR9BfLxXeW7H7LnAxd1 QLEjqUgjUW6vO1Ej USXciaqegoutaVF9BRJx THBdxH10iJWpLOaxSv8d e1M7j199PTOsHWEhoO49 Ha2itEhzJXKglCDB yW1eniarw5djqxxyIiSw XDXxGOg5LIl5KLWclQwr UeTwIDI8WdX0SGY9bFKe oF1eeSuxgxedkM4y Oyc+B49szJ6mYVH8JME4 giruAYHukxGkWJ35XC00 F6PkAbfzgQLwqEL+PGRp roGaiYblWV5pOePq i9nki5HlLWnxL0IpFHGg IOyuKwo9TZZsOEH1zXO9 mE4kPSSzXKvdo0I1cJM3 U5ByugJawq4sr9rr EKAlWLrnZ06ooEQma3R9 RMIesPQ6MMXasEnjTdAd fB97Gfp+SYChyHgnc6Ta Nilrv9xie9bbaJf6 IjMwJSIgdmFsaWduPSJ0 p4UzMy08M89oIVsvSPVl UZYiYPMyRIAzwCmehg0h uU1uSj7+PGNvbCB3 qYC6tX4wHZAkRsG0JDlr X015EsCydTHwOauix3cd r9hooIn8ZwEfPRLhvkAz gGjsQZN9l9GsZs12 Q71aANnbNOZjSGQnTDUe SRIsuNgrqp5fbX7gGa3+ DG1ve1efin51tE41uTV+ KGRrBAA6pGorBVmp PHCjsY8sLObgRiF9QWDz EsOklH45tIPcXDmvKa3k tAfsjXcnGR6iQLYkbghq m962TcScq7ciTCLl wCRrLPnjBJN6A69wf0Y2 QFUfJGPpWZB3mAJ4uN0d bGlnbjogbGVmdDsgdmVy cPqpAKlfHPdiH651 IHRvcDsnPlBhdGllbnQg QaEhQRr2D6QkDnz1GSFi xUmhGQ8imPOhIIfdTd0b iIzluIwnMB3bCRWy aesvk331DpYep8wsJRUe eUShDPjbKCA9A95kk4K6 RRErHSTtLHU8zQR8fN7f bGlnbjogbGVmdDsg tfZcrIktTIulHHsbX999 IHRvcDsnPkJpcnRoIERh tMB2AJ12IV55eSHvc6Q1 eEH9H9ZdMHCedapx qzjfvTH9NJPlZURoiL36 Qo3uvFxuNw5iKBJpPJH4 SHFhaSKmS3CayT9jEuMr GWKrEIXuE7DfcQBb PGsvF874MNeoQgH1WFFq xpCaT6ZyBITiyYczUgJ9 p3I0Lr7KI6P9AY69DI78 gNQid5F4bKM2B6Gs KEZsuunyffqsjZR8YUSz MCPoaH50Zt7xjGyyMm7o LTXwXAN5CMXmuSMzJ7Cd iD5nJgVvYJNxMINg C4VglVGuOVsxH540YAxf FxP7JXWvjzZjN7VxHZZz fYyrZeL2j1S3Qz8ZAAc1 CM48LX73cOGvp7R7 nZL5M5UfWIOohtaqckyt gDD4DDAiPIPobU25Mf7h bKjlJn4sZIVlUHQ2SAFu nEYdR3LlvK7fQpFu XTHbLYPzS5DqvRUgGLbn W144EVbnXmP4KYZwybFl S0RgHTVhwAsgYuX4u9A9 Ql7NHJTfVJ78PEL7 mKV2PP06CJ36M9TpWzcm dGFibGU+PHRhYmxlIHdp ZHRoPScxMDAlJyBzdHls GL5yWi3qPGAyIXCq rUcjiORoNhEhy2doLAAz MZrePD4axWenA7UahFD5 GAOnk4t1Ee12T21wO0Eq dXA+PNVcyEI0tKU7 kZ3tUqRzCsF0VUedX156 BdHebEPxLtbqd0yde8nd zEy4VfO1KNEysqOjeDfj RAG8v8GlBv70F86o IHdpZHRoPSIxNSUiIHZh iTqflx6jvQ6eHw3+PGNv nCU6qWR4nX7wJcZyQlQ5 JPmvK189JsRhjCDg Cpbxy4yrt6mzyFk2AxDq OZUvqzSuoYyxEZK7q2Mi Jh07L6CizKjra9ZxFrj0 gr78nJGtn9U5dQF5 X4SbTCLfyhhrrTTyvDew IW8qREGxqkfuOQCxaW3u MCLvZ2x2GuQwMvS3JCnm Z3ArytY9NAGesQLq QWxjQYC1V03rd9L1QUSh GJQwFAV1cVM3fU8ikFht bjogbGVmdDsgdmVydGlj LVosZAprB122NIYc fOieAALonQ9iMDYepSUt dQlwEX3pBSTkmkslAdwU VBEgSPzOUJPAXC94GI62 tYTil2Y2rWS0M5Up UUOcaejtjtlgmTL7RYPw YLRghG60aUJaTZezRp5n a9L7c580LFDnQEPanG83 Ir0ggYnbLMAbuTOT wN3xynbvw9scqeduEvRl JNHnBWb0EOh4MFHqrFjd IaQyFFC5IoD1LFF6tJAr yJ3zjGhcosrrxQ2h Oyc+XNViUrosXOk2GGio dGQ+FTTiIHZ0sDxfYEdf WJKnzV7uRFMbF9z7HiWn VhL3CRllB0LkWTLj vysjQg29pF4vBcFpBlI9 XZebV2EixkG7YIGktKVy ZFysGZC4C00fd4I9BXGa CQVuOXI7yCP8gZ8b bGlnbjogbGVmdDsgdmVy wRnpSOlwRApuP632KDYx nSzrXaKfVLjeULWnDI64 IR02vIXln1U0hRJ1 R0VfURTfkchwluoowSD6 HINyEYFrdY47bWThFWsr Up5fe6M4s302XKIvXFBk gP55Gj3xaAzgEOPn rDLNpW5rmnmaw5vqdold BwByQEJuCQq3LBk3XYQk yIbiAfPoUXD3FsH2PUO7 lDXcjI9qaJrlkqje xP9cWlf+XgAzMHtrEH87 WW70fKLuv7Q9qZX5Q3Im EJOippgxilkbrYC9GDVb POHipO93iPYyHRat Cq9cu8M3f270SFWtFIGr kG21Ym1psAecXFYkgYJM aL9rylnkg2odtesiHzVq BAOlLJs3HJj4JEIz lJqpLgNrNBX7YmJ3MWG2 pLHctG1psGxpmfkkxJ9p Oyc+B1J1rWD5eVOmwYek dGQ+KJ78ei93R7Ch WzqpJkm4PPFvZOY9iHE8 iU3cIZFoZHxdw2H6rHK5 Z4JgolDtwg1jv0jaTSJl OSuwZ96pfKWdq2U2 DCKtjTA0XEMyiRtoCqQu pY07Nvz+WLEuuCzze3Wh Dmleb5wda2uqkMj2ObMi JSIgdmFsaWduPSJ0 q7KaVu41B92hZDgxGVUs ZNXvBONdSGFjaZntyr7c nT5kOr9+CMMbgMM6iIE1 yO7uNcUoUfD7EQvr N463TdVafXImEeved9qt v3dzhEu2XzCkOCUpwxVs rWiqHAA3k2RrJn30I5Rl wCddv3WvPfn5jt75 yAChi9D0tFX4M2VpCZNt xkulqHPweLkxBO4iAOCc qgrpNBCauJ5lKEPjX6p7 KjDsAtD2EDtuE6Oi hmT7QGKhnAZyBJDyiMOK pQ8zxjjoa2fbopirVyCd SIEvXXy4HCb3ROXdwAfr YmCkRUC0EyF2VZA7 nPJjgW7rvXhuchwcpN7l Oyc+BBu3j4qrsPDfAY1q bCR2AR36ZK43oMWlo0V5 nPE7D2VlFHItmvlb sucovYW2YGInZLCtpZ76 Wo7wuDhsEf6aFEIgSTR7 CGNncYGoJ5IztH8kOyQh IYHoRDRsG9RsaCWc AXifJ498YRrxUpJ1TZYt rtOxR2EvLAIxtEveNaI5 i1Z9Ey4HOT20OS58SE57 pSJub7Q5oMV0J7In ZPNbhaicrvwpuCQ8THMk SERasE21Nh9fhJdsQf9j LPWeLXS1PCDfzMQxM6Ak eS3hWtGdKAJpJTFp F7UmqALwIFyiL901ZTkk YzH6YYKxhwWoL0HdSMAt uVaoLaX7m6O5Xs1VCb03 NZ82SV24nUXjp2W3 xXC0Y4TkIPUgvzxohlwc nRV3VRDbWJUveU56Ya0u uAzdRr6tZATkHGS3WKCn jAXwJ1TjsH5cTvEy OIIxSRUeW1QyjTMgYUgj H433OEarQxX3WGQparZj R7KkSHUmaNkfPiO1x8Q7 Td4JNOcjjve5Y2Hv PjwvdHI+PX92ISSoNW00 hOJazYJvk0wytZb0LoSc YWZaGQQ5oTckXTsst3Pz ENNpC29gnSKgu8R5 IGNv (more content not included)... Normal [facility] Coding Summary. CD:[id number] Gh0bWw+PGhlYWQ+PE1FV NOeQ10bpAAvpB3NG7sGA P9NESCCRSSORR5THK3bl MC4YCqeX3RairXc SluspVIyJO14ZXw1QIF3 uWwaRBfqdN6wrEZoB0l5 TxUzAX67cO03IPgaZQFv KkK8YqHsrybpiBLj G6iaLvAmiFMqSky+PHRh YmxlIHdpZHRoPScxMDAl RbMitOacDA2fPi0kWKYy LWNvbGxhcHNlOiBj v1rsOIQmPFqkMP3jvXvt J3FbpHK5LRMok4k6Cc27 dHI+WGUmOZX9dEmkKLvd c548FpPhp5lnXMQ6 nXYyBJwtKNE3W53zd4F5 TCNqLAQkEVR9kZK3nO0j zGywslywX9SqsJGzTsP4 CEN4fBXztG3mrGqn ojsncQ9nEqv+E51KPX7M DIJEEU2YGkv8M2BhJniq dHI+AQ89NYCaLH00zORx jSMiw8osaWq1WdQd GKElCFQ3nQtwKCtra4Fj XGCiE72kyPVrl0S3QZWd jVterJBsNyUupMO5bX1b EXlolyuuw3doxdie Oamum4oqvk91bI40H40s HWhvHHNcFWJ4LYVhFFJh mPoqmg5lmM9nGq8+IDxj h7auf1trlUi2UnVj CAUpudCtpHfyBKI2b7Wk Pd90N0CnpHjqa5ZwIkg9 wy61tDVyj8I8vKO8IWuo SICpsR7uRFbbPaK8 ILLoGwZvyX91rNXqERbb Zu7njMxdbQbvNC7sLEQf mungPSMipW5fJGIweEEj yJquXX3pDHKnevsu e420DwWrTRB4WHVtiAEi N4FuwL0eQlGyJISlVUPw E0YqwGMzVGuyE508MVls GuT6INGzmdXbB9Uc DSCvcHwzNbA8y9F5Hz0L w3HyasxbLDB8KHbvQEYz KtF3ZyVbFyD3E5CfPzp0 WGPyaMuaZX3jG7Dl TTEglwcnviktkGO3SETv PGYgnR76lWAyMSkfMh7n v3S0p841BUHnFMNibO83 Fg9fzHnhLTBulKNL nJ1qaqldi2rjctdaRjZm VFVoHVr4HLw7YHBgzFkt RkOcXPM3WkM2TEL4tKVt eZ1wmTxuiomfzC6y Oyc+A25csL5vZTE7SHG1 wkqhHEHxgnVgOO64BV19 M2StOwmanVMgoJO+PGRp noAgvAxwTC2tNgZm l5ofq3UcAGadX0RhWBOm KRgjJgf0IKCiWFV1fGW7 hL6gXROtEMlqh9C0cAK0 D2NpuoGnnd0kw3vk ZQRaOGwdD03flHLbs1K3 XHSzbJQ3WOSgmAyqMrTs iO03Bpl+AGVqnSfbn9Ki Mzdtc8rzi7lzyOv1 IjMwJSIgdmFsaWduPSJ0 s9CtCi98H43cJQfiCUAy BIBiLOPoZCZrjAkqhp9s kO4aUm5+PGNvbCB3 jUH5bB1rBTNrDpE5KFgm W637OyIslEIuGgeac0iq c2ahgYa9LtQtVXLwmjLl yMvwLSR4q7GkNq61 U11pKLmpYPIoXSGdWDBb ICBskBqjfy3xuJ8eXl7+ SJ6bm9ddza00qJ53aXH+ MQBqJPE4oQysDErq NYCxxX5yMZvmTzW7RSNt VvPoxA61yQFwVSeaHm4x pMsmbPmsYW4iQGObdhbw i315YaVpp9cgUHHt mHPjDXdsXZP1P35og7T1 LUByMGQwVRX1nPI1qJ1c bGlnbjogbGVmdDsgdmVy qLedZZjvXHttF186 IHRvcDsnPlBhdGllbnQg WxTkGPs8K5MgNax0ZQSy pFopTE3wbISsDSrbNh7a lKssvXxyOZ5wDSKn ipwnq131ToRdq6hsIREm rWMuTUodMKF6L86wq6V0 XSVtIMKfURI7wRH1sL4p bGlnbjogbGVmdDsg kiJcpWcaKWeiCZirJ555 IHRvcDsnPkJpcnRoIERh oZJ4AL48SU17hZNaj5T5 wPK4L8SsBHTjezep prjdaOV2SLMwBPBerZ11 Ti2ntJnuMt7sJAYsYQS0 CFLdoEZiA1RdgU7sNtVc SLQrRNNkJ2RmpKVl UAhxM931BTvfWlN5DWOs rmIfM6AsKAGeoVqgVfY5 v3W4Fi8QC1I4ON65VQ80 tWCvu3P1qKI9W2Fo FGMfrhzlluwrgYR9GCWq VGBudB40Tc6czQolJa5a AIQqKWG8BEGkkSPoV2Sf rS7cAqAsCVApRUGk E3AfkSFiAFqgR868SNzk VuQ9BISmfbKdY4TlRXDn xFhqCoI6d8U3Bc9PPAe2 BA18DI98kZQtg0F7 cRY2S6JaOXHqogmhxuhf oKK5RIJiPYPkwR40Gy2f kXtnDv8hTGPiXHT8REOp vBBwA4PdlU4qDhOk ARVcJGAnA3VlmZDiVLkf T099LVxdWvN6ZVQzdbMi H1DuXORkgXqdMlE4c2T5 Kg9QKLLjPA19STZ4 tDR2BC76DY52W3DuEpky dGFibGU+PHRhYmxlIHdp ZHRoPScxMDAlJyBzdHls BA0oJi5eGEQfAKBy fDcbeWApUvAqi3ogMAXn XUnmHW8vuOhuD4UbyOW9 YFZpo6w8Ta63E60mM9Ug dXA+WYPoqED7cOZ3 sY3vBlHsNgH2OTqtC891 SgSntYMjIpzvx1gsn8iy wCh5OgR9EWEassUmtZjn KNR8p1MeJl29Q04h IHdpZHRoPSIxNSUiIHZh dSqssw8xhU8kFn9+PGNv mWM1hVF9kD3rIfKmLqI6 TAxmZ469LdIbhZFx Fwxcp4bdl9ioiLh1GiFc BLStrvFdsEssONZ1p6Gn Qo51P0HuuYvlu3DfHwl0 fj10mVLcf2O2yWN4 B6ScBHVioifqrUGjiYnq VO7aJYUbzqztYIOwjF8r JRNmL6e3CzEqBcP6ICgw A0ChkgN8RQQocVXh VFtfZSO0C40af3R2MMQh ANKrPVL4uCH5vD9asXrm bjogbGVmdDsgdmVydGlj LIdpWYsxC621EIPv vBwwEGTfbJ2fYFCgpQLd oZsaNG0tFJFdczpwCksK LKBuQFeGQZJIDG76RA12 zPEwh9P3pQK1I0Ag KVGrwrgzieiziMK4STTq MSQosD67bUCuLLjcAp3r k6C3x987ZURpYNYntV28 Az4isKrnEIPthAQX uE0feejuq4tmacrcVmGt OSYdBNq6HTa0XJGhkRcn DxMeGNM2NuK8DVR4uRWa tZ8zyZovmyxazI3e Oyc+KCAgFnjzHGr4FPik dGQ+JHYrUFA6zBiwVRwo RSEtrX6jDDMyJ6r4GpMg YlU7MTyaN5IbQULp zjpwVw27vM5hNtOkIgE2 VKrgK3OylhS8DRAqgNXt BDixEEC4L15kf9Q7BVAj OGBjNPI7dXL0aF9b bGlnbjogbGVmdDsgdmVy lCakPUhkPUoyM751TAHj gRscSyJhCDeqORGaGL45 UA06sYAiz0C5tKV3 R8TnJSQpbsnajkalfNO2 ABXtBBGajI71qRSvEEbq Xb6vf8S0b130PTRcGIXd sF37Lj8wuPtuIIIx iJRCfK8vmivgw5jicokw GvTlNCLgDNq8PCv8PIVk oElsUcQjPRA4OnN3GBD2 vTHsdM6xnOvtoebu xZ5oHff+DwElHQgcFG33 YC14iSUma6Q0jWR5A9Ud NUVnqsomwpuxpXK8QXLs AFFawM51qJYxQKse Yj3ef5W3p035CDNsZIOb gD34Up6irVywFSKzaMRD eL5ukvsnv1vhsfgiUwVi ZSPtHAx3SKc3QWLz lMifZbGfMXC9HaJ8SCV4 mXQutQ6nnYeeqcpbxZ7h Oyc+UEWuFMFtw5Vhs0Vf MI60LO38Q1XbZean dGFibGU+PHRhYmxlIHdp ZHRoPScxMDAlJyBzdHls HA7fHu7wHERwAJTxyZee zBXwNfUnw1lmVVRu BLakNU3drSjcR3QuvRU7 FGUll9v8Sf39J53yV4Wy dXA+IOHibHE4xSI0jQ5v TtHoYqP1XFhuE447 JmAmiEXzDtdhn0oya0gj nAz0WmAoZNWkxtEglEqz BMV3v0JdHc49N21lOXlu ZHRoPSIyMCUiIHZh tFlmgy7hkY7vXt4+PGNv uEM9xUE6oJ1aXlPiWzV1 ZPuzG896IbNjgVMyBfdn W40lF7JduFH+PHRy Roa6MIStjYxeGP9ubYBz RJmgFv5gKOK1YfOgQjOd PEcdM4SmLHTjrnhnjuzj wJJ9GVMeLCSzfK46 Of7rwIzcBd5eTVNzKFY5 JCSxbNMhW7OfgK9pQzAr NWLlWGVqC9VawVZeHVis C213QPvsZjY2XFRs xyQhA9LoOSEcgEddUvD5 q0I1Bt3QqQlicBAtRT8s LyQtQHt4M0JlRjk1JQUy nMvwBP3ndFPrDSku Hl0yxHrxiFrlZH5pVMBi ljshc193YbVzi1bxMEYs xCNpFMptEUP4V36fu5F7 QZZjKPRoJDJ6jCT7 eN5pwKtqdzqxrSOblVcc fmYptIbgKVljQDyvU885 ZMSlsKgcBbWJHuq9G9Gj Efh3FSXtoXsiPO3i eHRsDGzmQw1iuJftrDku HY4zTIUfxzlfb649FxTy n5ldXPMlvDRxAGupHZY9 L23ik1P2DEBnVTFu DCY2aGU3fH4ilPxvdcft bGVmdDsgdmVydGljYWwt OTobE660GKYfgWznDr9V Wku0S1JrZvt4GQMh dSskYH9lxAXrWNswIk4k hLigrXlfIV5wKTUyrgqs l059ApQlg5zdCSKweCBd HDxtCEM7V79iz8Z1 BZTyKVKhEKE1nTY1nM5u bGlnbjogbGVmdDsgdmVy dBrvUAvoEXrnI718ZTTt cDsnPlBheWVyOjwv dGQ+VP06qb11W6KvUckv Tpt2SQIeUZT2wQX7hM9j EIVdFDxkw7G8uRM3E1Oz rrFnxc1aw4qdPNMk ZTog (more content not included)... Normal [facility] PAP [id number] 08-15-2021 Cytology report Cyto stain Doc (Cvx/Vag) Note Invalid Interpretation Code [facility] Comment on above: Result Comment: TEST S RESULT FLAG UNITS REF RANGE LAB Clinician Provided Cytology Information Source.............Endocervix No. of containers..01 ThinPrep Vial DIAGNOSIS: 01 NEGATIVE FOR INTRAEPITHELIAL LESION OR MALIGNANCY. Specimen adequacy: 01 Satisfactory for evaluation. No endocervical component is identified. Performed by: 01 Sujey Engle Hydrology Teacher (ASCP) . 01 Note: Note 01 The [...] <-Panic Low,>-Panic High,A-Abnormal,AA-Critical Abnormal Performed at: [address] [id number] Mar Rivera MD, Performed By: #### 1 [id number] #### [facility] [address] [place] [address] HPV 16+18+31+33+35+39+45 +51+52+56+58+59+66+6 8 DNA Probe+sig amp Ql (Cvx) Negative Invalid Interpretation Code Negative [facility] Comment on above: Result Comment: This nucleic acid amplification test detects fourteen high-risk HPV types (16,18,31,33,35,39,45,51,52,56,58,59,66,68) without differentiation. Performed at: [address] [id number] MD Nicole Manuel Performed at: =G [address] [id number] MD Nicole Manuel Performed By: #### 1 [id number] #### [facility] [address] [place] [address] Insulin Lvlon 08-11-2021 Insulin Qn 24.3 u[IU]/mL Invalid Interpretation Code 2.6-24.9 [facility] Comment on above: Result Comment: Perf ormed at: [address] [id number] PhD Archie Jha Performed By: #### 1 [id number] #### [facility] [address] [place] [address] Consent for Treatmenton 07-29 Consent for Treatment [id number] #1.00CD:127 Normal [facility] Glu Fastingon 08-10-2021 Glucose [Mass/Vol] 95 mg/dL Normal 55-99 [facility] Comment on above: Performed By: #### 1 [id number] #### [facility] [address] [place] [address] Physician Orderon 08-10-2021 Physician Order [id number] 2#1.00CD:127 Normal [facility] PAP [id number] 08-09-2021 Collection Technique BRUSH-SPATULA Normal F [facility] Comment on above: Performed By: #### 1 [id number] #### [facility] [address] [place] [address] Gynecological Body Site ENDOCERVIX Normal [facility] Comment on above: Performed By: #### 1 [id number] #### [facility] [address] [place] [address] Physician Orderon 08-09-2021 Physician Order [id number] #1.00CD:127 Normal [facility] Gynecology Office/Clinic Not pratik 02-17-2019 [...] Family History Family history is negative Normal [facility] Comment on above: Result Comment: [...] Family History Family history is negative Normal [facility] Comment on above: Result Comment: Elec tronically Signed By: Shamika ISAACS, Kaley Wilson\.br\Date and Time Signed: 02/17/19 12:09 EDT Vital Signs Date Time Vital Sign Value Performing Clinician Facility 08-27-2024 11:45-0500 Body mass index (BMI) [Ratio] 35.08 kg/m2 [employer] DO Work Phone: [facility] 08-27-2024 11:45-0500 Body weight 87 kg [employer] DO Work Phone: [facility] 08-27-2024 11:45-0500 Diastolic blood pressure 82 mm[Hg] [employer] Work Phone: [facility] 08-27-2024 11:45-0500 Systolic blood pressure 122 mm[Hg] [employer] DO Work Phone: [facility] 08-12-2024 11:08-0500 Body mass index (BMI) [Ratio] 34.93 kg/m2 Immanuel Yobani DO Work Phone: [facility] 08-12-2024 11:08-0500 Body weight 86.64 kg Immanuel Yobani DO Work Phone: [facility] 08-12-2024 11:08-0500 Diastolic blood pressure 80 mm[Hg] Immanuel Yobani DO Work Phone: [facility] 08-12-2024 11:08-0500 Systolic blood pressure 120 mm[Hg] Immanuel Yobani DO Work Phone: [facility] 07-20-2024 11:00-0500 Body mass index (BMI) [Ratio] 34.39 kg/m2 Immanuel Yobani DO Work Phone: [facility] 07-20-2024 11:00-0500 Body weight 85.28 kg Immanuel Yobani DO Work Phone: [facility] 07-20-2024 11:00-0500 Diastolic blood pressure 76 mm[Hg] Immanuel Yobani DO Work Phone: [facility] 07-20-2024 11:00-0500 Systolic blood pressure 122 mm[Hg] Immanuel Yobani DO Work Phone: [facility] 06-22-2024 14:31-0500 Body mass index (BMI) [Ratio] 34.2 kg/m2 Immanuel Yobani DO Work Phone: [facility] 06-22-2024 14:31-0500 Body weight 84.82 kg Immanuel Yobani DO Work Phone: [facility] 06-22-2024 14:31-0500 Diastolic blood pressure 78 mm[Hg] Immanuel Yobani DO Work Phone: [facility] 06-22-2024 14:31-0500 Systolic blood pressure 124 mm[Hg] Immanuel Yobani DO Work Phone: [facility] 06-15-2024 10:27-0500 Body weight 84.82 kg Cele Rodriguez MD Work Phone: [facility] 06-15-2024 10:27-0500 Diastolic blood pressure 88 mm[Hg] Cele Rodriguez MD Work Phone: [facility] 06-15-2024 10:27-0500 Heart rate 99 /min Cele Rodriguez MD Work Phone: [facility] 06-15-2024 10:27-0500 Respiratory rate 18 /min Cele Rodriguez MD Work Phone: [facility] 06-15-2024 10:27-0500 Systolic blood pressure 137 mm[Hg] Cele Rodriguez MD Work Phone: [facility] 05-25-2024 11:46-0400 Body mass index (BMI) [Ratio] 33.84 kg/m2 Immanuel Yobani DO Work Phone: [facility] 05-25-2024 11:46-0400 Body weight 83.92 kg Immanuel Yobani DO Work Phone: [facility] 05-25-2024 11:46-0400 Diastolic blood pressure 74 mm[Hg] Immanuel Yobani DO Work Phone: [facility] 05-25-2024 11:46-0400 Systolic blood pressure 118 mm[Hg] Immanuel Yobani DO Work Phone: [facility] 04-27-2024 10:35-0400 Body mass index (BMI) [Ratio] 33.75 kg/m2 Immanuel Yobani DO Work Phone: [facility] 04-27-2024 10:35-0400 Body weight 83.69 kg Immanuel Yobani DO Work Phone: [facility] 04-27-2024 10:35-0400 Diastolic blood pressure 76 mm[Hg] Immanuel Yobani DO Work Phone: [facility] 04-27-2024 10:35-0400 Systolic blood pressure 122 mm[Hg] Immanuel Yobani DO Work Phone: [facility] 03-27-2024 10:27-0400 Body mass index (BMI) [Ratio] 34.53 kg/m2 [facility] 03-27-2024 10:27-0400 Body weight 85.[address] [facility] 03-27-2024 10:27-0400 Diastolic blood pressure 70 mm[Hg] [facility] Nurse [facility] 03-27-2024 10:27-0400 Systolic blood pressure 120 mm[Hg] [facility] Nurse [facility] 01-02-2024 09:15-0400 Body height 157.48 cm [facility] 01-02-2024 09:15-0400 Body mass index (BMI) [Ratio] 33.9 kg/m2 [facility] 01-02-2024 09:15-0400 Body temperature 100.2 [degF] [facility] 01-02-2024 09:15-0400 Body weight 84.08 kg [facility] 01-02-2024 09:15-0400 Heart rate 115 /min [facility] 01-02-2024 09:15-0400 Respiratory rate 18 /min [facility] 01-02-2024 09:15-0400 SaO2% (BldA) [Mass fraction] 99 % [facility] Encounters Encounter Date Encounter Type Care Provider Facility Start: 09-02-2024 End: 09-02-2024 Clinisync Result Encounter Immanuel Yobani DO Work Phone: [facility] External Department Unsolicited Start: 09-02-2024 End: 09-02-2024 [facility] Result Encounter Immanuel Yobani DO Work Phone: [facility] External Department Unsolicited Start: 08-27-2024 End: 08-27-2024 flow sheet Immanuel Yobani DO Work Phone: [facility] Comment on above: Third trimester preg terrell; 32 weeks gestation of Start: 08-27-2024 End: 08-27-2024 ambulatory IMMANUEL YOBANI Not Available Start: 08-26-2024 End: 08-26-2024 Clinisync Result Encounter Immanuel Yobani DO Work Phone: [facility] External Department Unsolicited Start: 08-26-2024 End: 08-26-2024 Clinisync Result Encounter Immanuel Yobani DO Work Phone: [facility] External Department Unsolicited Start: 08-12-2024 End: 08-12-2024 Bamboo flowsheet Immanuel Yobani DO Work Phone: [facility] Start: 08-12-2024 End: 08-12-2024 Bamboo flowsheet Immanuel Yobani DO Work Phone: [facility] Start: 08-12-2024 End: 08-12-2024 flow sheet Immanuel Yobani DO Work Phone: [facility] Comment on above: 29 weeks [...] [facility] Start: 07-20-2024 End: 07-20-2024 Bamboo flowsheet Immanuel Yobani DO Work Phone: [facility] Start: 07-20-2024 End: 07-20-2024 flow sheet Immanuel Yobani DO Work Phone: [facility] Comment on above: 26 weeks gestation o f ; Diabetes mellitus screening; Second trimester ; PCOS (polycystic ovarian syndrome); resulting from in vitro fertilization, antepartum; Gestational diabetes mellitus (GDM), antepartum, gestational diabetes method of control unspecified; Elevated glucose tolerance test Start: 07-20-2024 End: 07-20-2024 ambulatory IMMANUEL YOBANI Not Available Start: 06-22-2024 End: 06-22-2024 Bamboo flowsheet Immanuel Yobani DO Work Phone: [facility] Start: 06-22-2024 End: 06-22-2024 Bamboo flowsheet Immanuel Yobani DO Work Phone: [facility] Start: 06-22-2024 End: 06-22-2024 flow sheet Immanuel Yobani DO Work Phone: [facility] Comment on above: Second trimester pre gnancy; 22 weeks gestation of ; Personal history of cardiac murmur Start: 06-22-2024 End: 06-22-2024 ambulatory IMMANUEL YOBANI Not Available Start: 06-15-2024 End: 06-15-2024 Office consultation new/estab patient 60 min Cele Rodriguez MD Work Phone: [facility] [place] Comment on above: 21 weeks gestation o f (Primary Dx); Chronic hypertension affecting ; In vitro fertilization Start: 06-15-2024 End: 06-15-2024 ambulatory [facility] Start: 05-28-2024 End: 05-30-2024 Clinisync Result Encounter Immanuel Yobani DO Work Phone: [facility] External Department Unsolicited Start: 05-28-2024 End: 05-30-2024 Clinisync Result Encounter Immanuel Yobani DO Work Phone: [facility] External Department Unsolicited Start: 05-27-2024 End: 05-27-2024 Chart abstracting Cele Rodriguez MD Work Phone: Maternal- Medicine at [facility] Start: 05-25-2024 End: 05-25-2024 Bamboo flowsheet Immanuel [...] [facility] Start: 04-27-2024 End: 04-27-2024 ambulatory IMMANUEL YOBANI Not Available Start: 04-27-2024 [...] GA: 10w1d Start: 03-27-2024 End: 03-27-2024 ambulatory IMMANUEL HILTON Not Available Start: 01-02-2024 End: 01-02-2024 ambulatory JOHNNY FERNANDEZ Not Available Start: 01-02-2024 End: 01-02-2024 ambulatory [facility] Work Phone: Start: 01-02-2024 End: 01-02-2024 Patient encounter procedure [facility] Work Phone: Start: 11-27-2023 End: 11-27-2023 ambulatory IMMANUEL HILTON Not Available Start: 07-26-2022 End: 07-27-[address] IMMANUEL HILTON . Facility: Start: 07-12-2022 End: 07-12-[address] IMMANUEL HILTON . Facility:[facility] Start: 06-28-2022 End: 06-29-[address] IMMANUEL HILTON . Facility: Start: 05-31-2022 End: 06-27-[address] IMMANUEL HILTON . Facility: Start: 05-17-2022 End: 05-18-[address] IMMANUEL HILTON . Facility:[facility] Start: 04-28-2022 End: 04-29-[address] IMMANUEL HILTON . Facility:[facility] Start: 04-04-2022 End: 04-05-[address] IMMANUEL HILTON . Facility: Procedures Date Procedure Procedure Detail Performing Clinician Start: 09-02-2024 OB BPP W NON-STRESS Immanuel Yobani DO Work Phone: Start: 08-27-2024 Urnls dip stick/tabl et rgnt non-auto w/o micrscp Immanuel Yobani DO Work Phone: Start: 08-26-2024 OB BPP W NON-STRESS Immanuel Yobani DO [...] malign ant neoplasm of cervix Pap Smear [facility] Start: 06-15-2025 Tobacco Screening Tobacco Screening [facility] Start: 09-08-2024 End: 09-08-2024 Patient encounter procedure 09/08/2024 8:30 AM EST Routine [facility] [address] [place] [address] Immanuel Hilton, DO [address] [place] [address] [facility] Start: 08-27-2024 End: 08-27-2024 Patient encounter procedure 08/27/2024 11:40 AM EST Routine [facility] [address] [place] [address] Immanuel Hilton, DO [address] [place] [address] [facility] Start: 08-27-2024 End: 08-27-2024 Professional / ancillary services management 08/27/2024 11:00 AM EST Ancillary Procedure [facility] [address] [facility] [place] [phone] [facility] Start: 08-12-2024 End: 08-12-2025 [...] 07/20/2024 (Approximate), Expires: 07/20/2025 Start: 07-20-2024 End: 12-23-2025 Measurement of glucose 1 hour after glucose [...] End: 06-15-2024 Patient encounter procedure [facility] [place] Start: 05-25-2024 End: 11-23-2024 Alpha fetoprotein, maternal Alpha fetoprotein, maternal Lab Routine Second trimester Expected: 05/25/2024 (Approximate), Expires: 11/23/2024 [facility] Comment on above: Expected: 05/25/2024 (Approximate), Expires: 11/23/2024 Start: 05-25-2024 End: 05-25-2024 Patient encounter procedure [facility] Comment on above: Arrived Start: 05-05-2024 End: 05-05-2024 Professional / ancillary services management 05/05/2024 2:30 PM EDT Ancillary Procedure [facility] [address] [facility] [place] [phone] [facility] Start: 04-27-2024 End: 04-27-2025 US Pelvis transvaginal US OB transvaginal Imaging Routine Encounter for screening for cervical length Expected: 04/27/2024 (Approximate), Expires: 04/27/2025 [facility] Work Phone: Comment on above: Expected: 04/27/2024 (Approximate), Expires: 04/27/2025 Start: 04-27-2024 End: 04-27-2024 Patient encounter procedure 04/27/2024 10:20 AM EDT Routine [facility] [address] [place] [phone] Immanuel Hilton, DO [address] [facility] [place] [address] [facility] Start: 03-29-2024 COVID-19 Vaccine ( season) COVID-19 Vaccine ( season) [facility] Start: 03-29-2024 Influenza vaccination [facility] Start: 03-27-2024 End: 03-27-2025 ABO/Rh ABO/Rh Lab Routine Missed menses Expected: 03/27/2024 (Approximate), Expires: 03/27/2025 [facility] Comment on above: Expected: 03/27/2024 (Approximate), Expires: 03/27/2025 Start: 03-27-2024 End: 03-27-2025 Blood type and Indirect antibody screen panel - Blood Type and screen Lab Routine Missed menses Expected: 03/27/2024 (Approximate), Expires: 03/27/2025 [facility] Work Phone: Comment on above: Expected: 03/27/2024 (Approximate), Expires: 03/27/2025 Start: 03-27-2024 End: 03-27-2025 US Pelvis transvaginal US OB transvaginal Imaging Routine Missed menses Expected: 03/27/2024 (Approximate), Expires: 03/27/2025 [facility] Comment on above: Expected: 03/27/2024 (Approximate), Expires: 03/27/2025 Start: 2020 Screening for malign ant neoplasm of cervix Pap Smear [facility] Start: 2018 DTaP,Tdap and Td Vaccines (1 - Tdap) DTaP,Tdap and Td Vaccines (1 - Tdap) [facility] Start: 2017 Adult BMI Screening Adult BMI Screen ing [facility] Start: 2011 Depression Screening Depression Scre ening [facility] Start: 2011 Tobacco Screening Tobacco Screening [facility] Start: 1999 Screening for Chlamy leoncio trachomatis Chlamydia Screening [facility] Bacteria identified in Urine by Culture Urine culture Microbiology Routine Missed menses Ordered: 03/27/2024 [facility] Comment on above: Ordered: 03/27/2024 CBC W Auto Different ial panel - Blood CBC and differential Lab Routine Missed menses Ordered: 03/27/2024 [facility] Comment on above: Ordered: 03/27/2024 CHLAMYDIA TRACHOMATI S (GENITO/STI) CHLAMYDIA TRACHOMATIS (GENITO/STI) Lab Routine STD exposure Ordered: 05/25/2024 [facility] Comment on above: Ordered: 05/25/2024 Cytology Cervical or vaginal smear or scraping study Pap Smear Pathology and Cytology Routine Well woman exam with routine gynecological exam Ordered: 05/25/2024 [facility] Work Phone: Comment on above: Ordered: 05/25/2024 Hemoglobin A1c/Hemoglobin.total in Blood Hemoglobin A1c Lab Routine Missed menses Ordered: 03/27/2024 [facility] Comment on above: Ordered: 03/27/2024 Hepatitis B virus surface Ag [Presence] in Serum or Plasma by Immunoassay Hepatitis B surface antigen Lab Routine Missed menses Ordered: 03/27/2024 [facility] Comment on above: Ordered: 03/27/2024 Hepatitis C virus Ab [Presence] in Serum or Plasma by Immunoassay Hepatitis C antibody Lab Routine Missed menses Ordered: 03/27/2024 [facility] Comment on above: Ordered: 03/27/2024 HIV-1/HIV-2 antigen/antibody combination immunoassay HIV-1 and HIV-2 antibodies Lab Routine Missed menses Ordered: 03/27/2024 [facility] Comment on above: Ordered: 03/27/2024 Neisseria gonorrhoea e DNA [Presence] in Unspecified specimen by BUCK with probe detection Neisseria gonorrhea DNA probe, direct Lab Routine STD exposure Ordered: 05/25/2024 [facility] Comment on above: Ordered: 05/25/2024 Reagin Ab [Presence] in Serum by RPR RPR Lab Routine Missed menses Ordered: 03/27/2024 [facility] Comment on above: Ordered: 03/27/2024 Rubella antibody, IgG Rubella an tibody, IgG Lab Routine Missed menses Ordered: 03/27/2024 [facility] Comment on above: Ordered: 03/27/2024 SURESWAB(R) ADVANCED VAGINITIS PLUS, TMA SURESWAB(R) ADVANCED VAGINITIS PLUS, TMA Pathology and Cytology Routine Vaginal discharge Ordered: 05/25/2024 [facility] Comment on above: Ordered: 05/25/2024 Payers Date Payer Category Payer Commercial Managed C [facility] [employer] [employer] [id number] 2023 [facility] er [id number] 2023 Unknown [id number] 2021 Private Health Insurance [id number] 2021 Unknown [id number] [id number]. [id number] 2021 Unknown [id number] 1999 Unknown [id number] 2.16.840.1.107677.3.579.2. 593 1999 Unknown [id number] 2.16.840.1.027275.3.579.2. 593 1999 Unknown [id number] 2.16.840.1.502196.3.579.2. 593 1999 Unknown [id number] 2.16.840.1.941624.3.579.2. 593 1999 Unknown [id number] 2.16.840.1.659092.3.579.2. 593 1999 Unknown [id number] 2.16.840.1.256797.3.579.2. 593 1999 Unknown [id number] 2.16.840.1.256515.3.579.2. 593 1999 Unknown [id number] 2.16.840.1.259476.3.579.2. 1286 1999 Unknown [id number] 2.16.840.1.338941.3.579.2. 1286 1999 Unknown [id number] 2.16.840.1.809387.3.579.2. 1259 1999 Unknown [id number] 2.16.840.1.290115.3.579.2. 9 1999 Unknown [id number] 2.16.840.1.271545.3.579.2. 9 1999 Unknown [id number] 2.16.840.1.501003.3.579.2. 1258 1999 Unknown [id number] 2.16.840.1.751202.3.579.2. 9 1999 Unknown [id number] 2.16.840.1.220344.3.579.2. 1258 1999 Unknown [id number] 2.16.840.1.450469.3.579.2. 9 1999 Unknown [id number] 2.16.840.1.754813.3.579.2. 1258 1999 Unknown [id number] 2.16.840.1.507029.3.579.2. 9 1999 Unknown [id number] 2.16.840.1.365556.3.579.2. 1259 1959 Private Health Insurance [id number] 1959 Unknown [id number] Social History Date Type Detail Facility Tobacco smoking stat [facility] Unknown if ever smoked [facility] Work Phone: Start: 2000 Sex Assigned At Female [facility] Start: 01-02-2024 End: 05-27-2024 Tobacco smoking status WIIS Never smoked tobacco [facility] Start: 01-02-2024 End: 05-27-2024 Tobacco use and exposure Smokeless tobacco non-user [facility] Start: 04-27-2024 End: 08-27-2024 Alcoholic beverage intake Ex-drinker (finding) [facility] Start: 01-02-2024 End: 06-15-2024 History of Social function [facility] Start: 01-02-2024 End: 06-15-2024 Tobacco use panel [facility] Start: 01-29-2024 [facility] Start: 11-26-2023 Gender identity Identifies as female gender (finding) [facility] Start: 05-27-2024 End: 06-15-2024 Alcoholic beverage intake Lifetime non-drinker (finding) [facility] Start: 1999 Sex assigned at Not on file [facility] Start: 05-26-2024 Sex Female (finding) [facility] Medical Equipment Procedure Code Equipment Code Equipment Origin al Text Equipment Identifier Dates 1 strip by In Vi tro route Daily Use in the morning prior to breakfast, 1 hour after each meal for a total of 4times daily. [id number] Start: 07-20-2024 End: 08-19-2024 1 each by In Vit ro route Daily Use to check FSBS four times daily [id number] Start: 07-20-2024 End: 08-19-2024 Goals Date Patient Goal Desired Activity /State Personal health goal Clinical Notes 03-27-2024 to 08-27-2024 Esperanza Peter, [facility] - 08/27/2024 11:40 AM Donell Tracy, [facility] - 08/12/2024 11:10 AM Kamille Garcia [place] - 07/20/2024 10:20 AM Gautam Peter, [facility] - 06/22/2024 1:50 PM EST Note Date [...] a total of 4times daily. Continuous Glucose Ammunition Storekeeper (FreeStyle Jenise 3 [place]) device 1 each, Does not apply, Every 14 days Continuous Glucose Sensor (FreeStyle Jenise 3 Sensor) misc 1 each, Does not apply, Every 14 days metroNIDAZOLE (FLAGYL) 500 mg, Oral, 2 times daily, Do not drink alcohol while taking this medication Multiple Vitamin (multivitamin) tablet 1 tablet, Daily ALLERGIES Allergies Allergen Reactions Eagle Flavor [Eagle Oil] Latex Hives, Itching, Rash and Swelling [...] nursing note reviewed. Exam conducted with a money manager present. Vitals: Estimated body mass index [...] from yesterday. Patients insurance did finally approve FreeStyle Jenise and patient is waiting for monitor [...] Immanuel Hilton DO documented in this encounter [facility] 08-12-2024 History of Present illness Narrative [...] 1 tablet, Daily ALLERGIES Allergies Allergen Reactions Eagle Flavor [Eagle Oil] Latex Hives, Itching, Rash and Swelling [...] nursing note reviewed. Exam conducted with a money manager present. Vitals: Estimated body mass index [...] Immanuel Hilton DO documented in this encounter [facility] 07-20-2024 History of Present illness Narrative [...] mg, Oral, Daily ALLERGIES Allergies Allergen Reactions Eagle Flavor [Eagle Oil] Latex Hives, Itching, Rash and Swelling [...] Immanuel Hilton DO documented in this encounter [facility] 06-22-2024 History of Present illness Narrative [...] mg, Oral, Daily ALLERGIES Allergies Allergen Reactions Eagle Flavor [Eagle Oil] Latex Hives, Itching, Rash and Swelling [...] Immanuel Hilton DO documented in this encounter [facility] 06-15-2024 History of Present illness Narrative [facility] Consult Note Reason For Consult: IVF HPI: Amy Mario is a 23 y.o. at 21w4d with Estimated Date of Delivery: 10/22/24 based who presented for consultation from Dr. Hilton, Immanuel Johnson DO regarding Chief Complaint Patient presents with [...] Allergies: Allergies Allergen Reactions Latex, Natural Rubber Eagle Meds: Prior to Admission medications Medication Sig [...] other morbidities. Based on the available evidence, [facility] recommends treatment with antihypertensive therapy for [...] preeclampsia prevention as is recommended by the [employer] Committee Opinion No. 743. [...] Cele Rodriguez MD, FACOG (she/hers) Maternal- Medicine [facility] [address] [place] [address] This document was created with [employer] technology. Though I make every effort to review the dictation as it is transcribed, on occasion the spoken word can be misinterpreted by the technology leading to inappropriate words, phrases, or sentences. This note is addressed to the requesting provider as a consultation for clinical guidance. Specific medical abbreviations are occasionally used and those are generally approved by the [place]?Board of?Obstetrics and?Gynecology?as well as?Kenzie croft abbreviations. The above plan of care was based solely on the diagnoses for which a consultation was requested. ?More frequent testing may be indicated based on her other medical/obstetrical conditions. The management of other or medical conditions is beyond the scope of requested consultation and will continue to be followed by the primary die designer apprentice or primary care provider. Note to patient: [...] IVF Have you been seen here at [facility] in a previous ? N/a Recent ER visits or hospitalizations? no Bring blood sugar log or meter with you today? (Please bring them with you for every visit at [facility]) no Flu vaccine (May-September)? no Any concerns that you would like me to mention to the provider today? no documented in this encounter [email or web address] 05-25-2024 History of Present illness Narrative Reason [...] mg, Oral, Daily ALLERGIES Allergies Allergen Reactions Eagle Flavor [Eagle Oil] Latex Hives, Itching, Rash and Swelling [...] nursing note reviewed. Exam conducted with a money manager present. Vitals: Estimated body mass index [...] Immanuel Hilton DO documented in this encounter [facility] 04-27-2024 History of Present illness Narrative [...] mg, Oral, Daily ALLERGIES Allergies Allergen Reactions Eagle Flavor [Eagle Oil] Latex Hives, Itching, Rash and Swelling [...] nursing note reviewed. Exam conducted with a money manager present. Vitals: Estimated body mass index [...] with IVF . Patient to also have [facility] referral for IVF and Level II ultrasound. [...] or undercooked meat, and stay away from [facility]. Patient has been consulted regarding any further do's and don'ts of . Patient voiced understanding and all questions and concerns were answered. Orders Placed This Encounter Procedures POCT urinalysis dipstick manually resulted Follow Up: Patient is to return in 4 weeks for routine OB appointment. Documented by Esperanza Peter LPN on behalf of: Immanuel Hilton DO documented in this encounter [facility] 03-27-2024 History of Present illness Narrative [...] Procedure Laterality Date TONSILLECTOMY Allergies Allergen Reactions Eagle Flavor [Eagle Oil] Latex Hives, Itching, Rash and Swelling [...] or undercooked meat, and stay away from [facility]. Patient has also been advised to [...] Jo-Ann Motta LPN documented in this encounter [facility] Evaluation note No assessment inform ation available [facility] Work Phone: Evaluation note Diagnosis Well woman exam with routine gynecological exam Routine gynecological examination Second trimester state, incidental Vaginal discharge Leukorrhea, not specified as infective STD exposure documented in this encounter [facility] HealthcareEvaluation note* Diagnosis 21 weeks gestation of - Primary Chronic hypertension affecting In vitro fertilization Encounter for assisted reproductive fertility procedure cycle documented in this encounter [facility]* Diagnosis Second trimester state, incidental 22 weeks gestation of Personal history of cardiac murmur Personal history of other diseases of circulatory system documented in this encounter [facility]* Diagnosis Missed menses documented in [...] fertility procedure cycle documented in this encounter [facility] note* Diagnosis Third trimester state, incidental 32 weeks gestation of documented in this encounter [facility] HealthcareInstructionsNot on filedocumented in this encounterProMedica Health SystemInstructionsNot on filedocumented in this encounterProGreil [facility] SystemInstructions* Attachments The following attachments cannot be sent through Care Everywhere. * Preeclampsia (Colombian) documented in this [facility] Summary Purpose Family History Relationship Condition Age at Onset Recorded Date/T yosi family member Unknown Heart disease Unknown Advance Directives Advance Directive Response Recorded Date/ Time Advance Directives No January 01 9:07am Chief Complaint and Reason for Visit Chief Complaint Congestion Additional Source Comments INFORMATION SOURCE (unrecogn ized section and content) DATE CREATED AUTHOR 03/06/2019 [facility] DATE CREATED AUTHOR AUTHOR'S ORGANIZ ATION 12/21/2021 [facility] DATE CREATED AUTHOR AUTHOR'S ORGANIZ ATION 12/01/2022 [facility] [place] [facility] DATE CREATED AUTHOR AUTHOR'S ORGANIZ ATION 06/17/2024 [facility] DATE CREATED AUTHOR AUTHOR'S ORGANIZ ATION 08/29/2024 [facility] Care Teams (unrecognized sec tion and content) Team Status: Active Member Role Status Dates Damon Stover DO Primary Care Provider Active Team Status: Inactive Member Role Status Dates Damon Stover DO Primary Care Provider Active Start: January 02, 2024 End: January 02, 2024 Teresa Sanchez APRN Attending Provider Active S tart: January 02, 2024 End: January 02, 2024 Telemarketer Relationship Specialty Start Date End Date Akila Grant MD [address] [place] [address] PCP - General Family Medicine 11/27/23 Telemarketer Relationship Specialty Start Date End Date Akila Grant MD [address] [place] [phone] PCP - General Family Medicine 11/27/23 Telemarketer Relationship Specialty Start Date End Date Akila Grant MD [address] [place] [address] PCP - General Family Medicine 11/27/23 Telemarketer Relationship Specialty Start Date End Date Akila Grant MD [address] [facility] [place] [address] PCP - General Family Medicine 11/27/23 Telemarketer Relationship Specialty Start Date End Date Akila Grant MD [address] [facility] [place] [address] PCP - General Family Medicine 11/27/23 Telemarketer Relationship Specialty Start Date End Date Akila Grant MD [address] [facility] [place] [address] PCP - General Family Medicine 11/27/23 Telemarketer Relationship Specialty Start Date End Date Akila Grant MD [address] [facility] [place] [address] PCP - General Family Medicine 11/27/23 Telemarketer Relationship Specialty Start Date End Date Akila Grant MD [address] [facility] [place] [address] PCP - General Family Medicine 11/27/23 Telemarketer Relationship Specialty Start Date End Date Akila Grant MD [address] [facility] [place] [address] PCP - General Family Medicine 11/27/23 Telemarketer Relationship Specialty Start Date End Date Akila Grant MD [address] [facility] [place] [address] PCP - General Family Medicine 11/27/23 Telemarketer Relationship Specialty Start Date End Date Akila Grant MD [address] [facility] [place] [phone] PCP - General Family Medicine 11/27/23 Telemarketer Relationship Specialty Start Date End Date Akila Grant MD [address] [facility] [place] [address] PCP - General Family Medicine 11/27/23 Telemarketer Relationship Specialty Start Date End Date Akila Grant MD [address] [facility] [place] [address] PCP - General Family Medicine 11/27/23 Telemarketer Relationship Specialty Start Date End Date Akila Grant MD [address] [facility] [place] [address] PCP - General Family Medicine 11/27/23 Goals [...] BE BASED ON THE PRIMARY CLINICAL RECORDS. [facility] [phone] no warranty [phone] [id number] the accuracy [phone] completeness [phone] in [id number] [id number]
[2024-09-05 07:57] VITALS: BP 123/89; PULSE 122; TEMP 36.1
== END 2024-09-05 08:36 | disposition home or self-care (01) ==
LOC: FBCO 06:28 → FBC 07:49
PROVIDERS: PCP Family Medicine; Visit Provider Obstetrics & Gynecology
DX: O24.419 Gestational diabetes mellitus in pregnancy, unspecified control (principal); Z3A.33 33 weeks gestation of pregnancy
CPT/HCPCS: 59025

== ENCOUNTER 2024-09-05 08:37 | Emergency (ER) | payer OTHER, BC, SELFPAY ==
[2024-09-05 08:44] VITALS: BP 145/94; PULSE 112; TEMP 36.8; O2SAT 98; BMI 35.3
--- OUTSIDE RECORDS SUMMARY | 2024-09-05 08:44 | XMS_ITS | CCD ---
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 Name Role Phone YOBANI ., DR SMITH [...] DR SMITH Admitting Unavailable YOBANI ., DR SMIHT Attending Unavailable ZULEIMA, DR CLEMENTINE [employer] [...] Unavailable Akila Grant MD Primary Care Provider [phone] Unavailable Primary Care Provider Unavailguy e IMMANUEL HILTON Referring Unavailable CELE RODRIGUEZ Attending Unavailable IMMANUEL HILTON R Referring Unavailable YOBANI, IMMANUEL Referring Unavailable IMMANUEL HILTON Attending Unavailable YOBANI, IMMANUEL Attending Unavailable JIM, JOHNNY Attending Unavailable IMMANEUL HILTON Attending Unavailable IMMANUEL HILTON Attending Unavailable IMMANUEL HILTON Attending Unavailable IMMANUEL HILTON Attending Unavailable IMMANUEL HILTON Attending Unavailable Allergies Allergy Classification Reported Allergen(s) Allergy Type Date of Onset Reaction(s) Facility (2 sources) Latex Drug allergy (disorder) 0 hives [facility] (1 source) orange flavor Drug allergy (disorder) 0 [facility] (5 sources) [place] - fruit; Translations: [ORANGE] 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 [address] [facility] (20 sources) Latex 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 4 Hives, Itching, Rash, Swelling [facility] (20 sources) orange allergenic extract Drug Allergy 4 [facility] Work Phone: (1 source) [...] MCG/0.5ML injection 11/26/2023 03/27/2024 Discontinued Continuous Glucose Application Packaging Specialist (FreeStyle Jenise 3 Rolla) device (4 sources) Start: 08-20-2024 Continuous Glucose Application Packaging Specialist (FreeStyle Jenise 3 Rolla) device Indications: Gestational diabetes mellitus (GDM), antepartum, gestational diabetes method of control unspecified , Third trimester 1 each every 14 (fourteen) days 1 each 3 08/20/2024 Active Continuous Glucose Sensor (FreeStyle Jenise 3 Sensor) [facility] (4 sources) Start: 08-20-2024 Continuous Glucose Sensor (FreeStyle Jenise 3 Sensor) [facility] Indications: Gestational diabetes mellitus (GDM), antepartum, gestational [...] US OB BPP W NON-STRESS on 09-02-2024 [place] [address] Ultrasound Report Signed Patient: AMY MARIO MR#: [id number] : 2000 Acct:[id number] Age/Sex: 24 / F ADM Date: 09/02/24 Loc: US Attending Dr: Immanuel Hilton D.O. Ordering Physician: Immanuel Hilton D.O. Date of Service: 09/02/24 Procedure(s): US OB BPP w non-stress Accession Number(s): [id number] cc: Akila Grant M.D.; Immanuel Hilton D.O. [address] [address] Patient Name: AMY MARIO MRN: [id number] date: 2000 Sex: F Assigned Patient Location: [facility] Current Patient Location: Accession/Order Number: [id number] Exam Date: 09/02/2024 08:03 Report Date: 09/02/2024 [...] M.D. Signed By: 09/02/24924 DD/ 1 TD/TT: Client Application Support Specialist: [facility] Radiology, Radiologist, MD - 09/02/2024 [place] [address] Ultrasound Report Signed Patient: AMY MARIO MR#: [id number] : 2000 Acct:[id number] Age/Sex: 24 / F ADM Date: 09/02/24 Loc: US Attending Dr: Immanuel Hilton D.O. Ordering Physician: Immanuel Hilton D.O. Date of Service: 09/02/24 Procedure(s): US OB BPP w non-stress Accession Number(s): [id number] cc: Akila Grant M.D.; Immanuel Hilton D.O. [address] [place] [id number] Patient Name: AMY MARIO MRN: [facility]:[id number] date: 2000 Sex: F Assigned Patient Location: [facility] Current Patient Location: Accession/Order Number: [id number] Exam Date: 09/02/2024 08:03 Report Date: 09/02/2024 [...] M.D. Signed By: 09/02/24924 DD/ 1 TD/TT: Client Application Support Specialist: [facility] Radiology Study observation (narrative) [facility] US OB BPP W NON-STRESS Ordered By: Radiologist Radiology on 09-02-2024 [facility] Work Phone: US OB FOLLOW UP [...] 2164 gm / 4 lbs, 12 oz (5331-0964 gm) [place] Normal: 1953 gm (1673-3200 mg) [place] 80% for 32.0 wks ([place] [...] report is generated using voice recognition reporting ([employer]). On occasion [employer] erroneously drops words from the report or [...] UA Positive Negative - 4(70) +++ mg/dL [facility] Comment on above: small Blood, UA Negative Negative - 50 Jimy/mcL [facility]arity, [facility] Color, UA Yellow [facility] Glucose, UA Positive Negative - 2000(110) ++++ mg/dL [facility] Comment on above: 100 Interpretation and review of laboratory results Abnormal [facility] Ketones, UA Positive Negative - 160(16) ++++ mg/dL [facility] Comment on above: trace Leukocytes, UA Positive Negative - 500+++ Mychal/mcL [facility] Comment on above: large Nitrite, UA Negative Negative - Positive [facility] pH, UA 6.5 5 - 9 [facility] Protein, UA Positive Negative - 2000(20) ++++ mg/dL [facility] Comment on above: 30 Spec Grav, UA 1.03 1 - 1.03 [facility] Urobilinogen, UA 0.2 0.2 - 12 mg/dL [facility] US OB BPP W NON-STRESS on 08-26-2024 [place] [address] Ultrasound Report Signed Patient: AMY MARIO MR#: [id number] : 2000 Acct:[id number] Age/Sex: 24 / F ADM Date: 08/26/24 Loc: [facility] 251-[address]: Immanuel Hilton D.O. Ordering Physician: Immanuel Hilton D.O. Date of Service: 08/26/24 Procedure(s): US OB BPP w non-stress Accession Number(s): [id number] cc: Akila Grant M.D.; Immanuel Hilton D.O. [address] [address] Patient Name: AMY MARIO MRN: [facility]:[id number] date: 2000 Sex: F Assigned Patient Location: [facility] Current Patient Location: [facility] Accession/Order Number: [id number] Exam Date: 08/26/2024 08:00 Report Date: 08/26/2024 [...] Signed By: 08/26/24 0858 DD/ 0856 TD/TT: Client Application Support Specialist: [facility] Radiology, Radiologist, MD - 08/26/2024 [place] [address] Ultrasound Report Signed Patient: AMY MARIO MR#: [id number] : 2000 Acct:[id number] Age/Sex: 24 / F ADM Date: 08/26/24 Loc: [facility] 251-[address]: Immanuel Hilton D.O. Ordering Physician: Immanuel Hilton D.O. Date of Service: 08/26/24 Procedure(s): US OB BPP w non-stress Accession Number(s): [id number] cc: Akila Grant M.D.; Immanuel Hilton D.O. The [address] [address] Patient Name: AMY MARIO MRN: [facility]:[id number] date: 2000 Sex: F Assigned Patient Location: [facility] Current Patient Location: [facility] Accession/Order Number: [id number] Exam Date: 08/26/2024 08:00 Report Date: 08/26/2024 [...] Mixon M.D. Signed By: 08/26/2458 DD/ TD/TT: Client Application Support Specialist: [facility] Radiology Study observation (narrative) [facility] US OB BPP W NON-STRESS Ordered By: Radiologist Radiology on 08-26-2024 [facility] Work Phone: Urinalysis macro (dipstick) panel (U)on 08-12-2024 Bilirubin, UA Negative Negative - 4(70) +++ mg/dL [facility] Blood, UA Negative Negative - 50 Jimy/mcL [facility] Clarity, UA Clear [facility] Color, UA Yellow [facility] Glucose, UA Negative Negative - 2000(110) ++++ mg/dL [facility] Interpretation and review of laboratory results Abnormal [facility] Ketones, UA Positive Negative - 160(16) ++++ mg/dL [facility] Comment on above: trace Leukocytes, UA Positive Negative - 500+++ Mychal/mcL [facility] Comment on above: large Nitrite, UA Negative Negative - Positive [facility] pH, UA 5.5 5 - 9 [facility] Protein, UA Trace Negative - 2000(20) ++++ mg/dL [facility] Spec Grav, UA 1.03 1 - 1.03 [facility] Urobilinogen, UA 0.2 0.2 - 12 mg/dL [facility] ALL CBC WITH AUTO DIFFon BASOPHILS ABSOLUTE AUTO 0 [facility] Basophils/100 WBC (Bld) 0.3 % 0.2 - 2.0 % [facility] Eosinophils/100 WBC (Bld) 1 % 0.9 - 7.0 % [facility] Erythrocyte distribution width (RBC) [Ratio] 13.2 % 11.0 - 15.0 % [facility] Hematocrit (Bld) [Volume fraction] 32.6 % Low 36.0 - 48.0 % [facility] Hemoglobin (Bld) [Mass/Vol] 11.3 g/dL Low 12.0 - 16.0 g/dL [facility] IMMATURE GRANULOCYTES ABS AUTO 0.07 High [facility] Immature granulocytes/100 WBC (Bld) 0.9 % High 0.0 - 0.5 % [facility] Interpretation and review of laboratory results Abnormal [facility] LYMPHOCYTES ABSOLUTE AUTO 1.6 [facility] Lymphocytes/100 WBC (Bld) 19.6 % Low 20.5 - 60.0 % [facility] MCH (RBC) [Entitic mass] 30.4 pg 26.7 - 34.0 pg [facility] MCHC (RBC) [Mass/Vol] 34.7 g/dL 29.9 - 35.2 g/dL [facility] MCV (RBC) [Entitic vol] 87.6 fL 81.0 - 99.0 fL [facility] MONOCYTES ABSOLUTE AUTO 0.6 [facility] Monocytes/100 WBC (Bld) 8 % 1.7 - 12.0 % [facility] NEUTROPHILS ABSOLUTE AUTO 5.6 [facility] Neutrophils/100 WBC (Bld) 70.2 % 43.0 - 75.0 % [facility] Platelet mean volume (Bld) [Entitic vol] 9.7 fL 9.5 - 13.5 fL [facility] TBH EO # 0.1 [facility] TB PLT [address] [facility] RBC 3.72 Low [facility] TB WBC 8 [facility] Urinalysis macro (dipstick) panel (U)on 06-22-2024 Bilirubin, UA Negative Negative - 4(70) +++ mg/dL [facility] Blood, UA Negative Negative - 50 Jimy/mcL [facility] Clarity, UA Clear [facility] Color, UA Yellow [facility] Glucose, UA Negative Negative - 1999(110) ++++ mg/dL [facility] Interpretation and review of laboratory results Abnormal [facility] Ketones, UA Positive Negative - 160(16) ++++ mg/dL [facility] Comment on above: 15 Leukocytes, UA Positive Negative - 500+++ Mychal/mcL [facility] Comment on above: small Nitrite, UA Negative Negative - Positive [facility] pH, UA 5.5 5 - 9 [facility] Protein, UA Trace Negative - 1999(20) ++++ mg/dL [facility] Spec Grav, UA 1.03 1 - 1.03 [facility] Urobilinogen, UA 0.2 0.2 - 12 mg/dL [facility] IGP,APTIMA HPV,AGE GDLNon AGE GDLN ACOG TESTING Note . [facility] Comment on above: TESTS RESULT FLAG UN ITS REF RANGE LAB Clinician Provided Cytology Information Source.............Cervix Other.............. No. of containers..01 ThinPrep Vial Age Algo ACOG Michelle... - 01 FLAG LEGEND: L-Low Normal,H-High Normal,LL-Alert Low,HH-Alert High <-Panic Low,>-Panic High,A-Abnormal,AA-Critical Abnormal Performed at: 01 =G [facility] [address] [facility], [place] [address] Mar Rivera MD, IGP, RFX APTIMA HPV ASCU Note . [facility] Comment on above: TESTS RESULT FLAG UN ITS REF RANGE LAB DIAGNOSIS: 02 NEGATIVE FOR INTRAEPITHELIAL LESION OR MALIGNANCY. FUNGAL ORGANISMS MORPHOLOGICALLY CONSISTENT WITH CARLOS SPECIES ARE PRESENT. Specimen adequacy: 02 Satisfactory for evaluation. No endocervical component is identified. An endocervical component is not commonly seen in the patient. Performed by: Judy Vera, Pin [employer] Clip Fastener ([facility]) . 02 Note: Note 02 The [...] High,A-Abnormal,AA-Critical Abnormal Performed at: 02 WB [facility] [address] [place] [address] Mar Rivera MD, Performed at: =G - [facility] [address] [facility] [place] [id number] [employer]: Mar Rivera MD, Phone: [phone] Performed at: - [facility] [address] [place], [place] [id number] [employer]: Mar Rivera MD, Phone: [phone] SPATULA-ALONE C[facility]IX [facility] AFP, SERUM, OPEN SPINA BIFID Aon 05-30-2024 AFP MOM 1.36 . [facility] AFP VALUE 55.4 ng/mL . [facility] COMMENT: Comment . [facility] Comment on above: Ivet Mobley , Ph.D., [facility] Director References: Available Upon Request. Multiples Of Median Cutoffs For AFP Elevations [place] Ros[place] 2.5 Black 2.8 IDD 2.0 Twins 4.5 Abbreviation Definitions IDD - Insulin Dep Diabetes OSBR - Open Spina Bifida Risk For further inquiries contact [facility] at [phone]. This test was developed and its performance characteristics determined by [employer]. It has not been cleared or approved by the Food and Drug Administration. Performed at: [facility] [place], [place] [id number] [employer]: Kristina Carter [facility], Phone: [phone] GEST. AGE ON COLLECTION DATE 18.6 . weeks [facility] GESTAT. AGE BASED ON LMP . [facility] Comment on above: Recalculations are n ot recommended when gestational dating by LMP and ultrasound are within 10 days. INSULIN DEP DIABETES No . [facility] INTERPRETATION Comment . [facility] Comment on above: Interpretation: Scre en [...] Customer Services to discuss available options. The [place] [employer] recommends amniocentesis be offered to women age 35 and older. MATERNAL A[age] AT SARA 25.3 . [age] [facility] MULTIPLE GESTATION No . [facility] OSBR RISK 1 IN 4034 . [facility] RACE . [facility] RESULTS Report . [facility] TEST RESULTS: Negative . [facility] WEIGHT 185 . lbs [facility] N N LMP [id number] 4 18 N 1 Y 185 N N N N N White/ [facility] Urinalysis macro (dipstick) panel (U)on 04-27-2024 Bilirubin, UA Positive Negative - 4(70) +++ mg/dL [facility] Comment on above: small Blood, UA Negative Negative - 50 Jimy/mcL [facility] Clarity, UA Clear [facility] Color, UA Yellow [facility] Glucose, UA Negative Negative - 2000(110) ++++ mg/dL [facility] Interpretation and review of laboratory results Abnormal [facility] Ketones, UA Positive Negative - 160(16) ++++ mg/dL [facility] Comment on above: trace Leukocytes, UA Positive Negative - 500+++ Mychal/mcL [facility] Comment on above: small Nitrite, UA Negative Negative - Positive [facility] pH, UA 6.0 5 - 9 [facility] Protein, UA Negative Negative - 2000(20) ++++ mg/dL [facility] Spec Grav, UA 1.030 1 - 1.03 [facility] Urobilinogen, UA 0.2 0.2 - 12 mg/dL [facility] ALL CBC WITH AUTO DIFFon BASOPHILS ABSOLUTE AUTO 0.0 [facility] Basophils/100 WBC (Bld) 0.1 % Low 0.2 - 2.0 % [facility] Eosinophils/100 WBC (Bld) 0.9 % 0.9 - 7.0 % [facility] Erythrocyte distribution width (RBC) [Ratio] 13.0 % 11.0 - 15.0 % [facility] IMMATURE GRANULOCYTES ABS AUTO 0.03 [facility] Immature granulocytes/100 WBC (Bld) 0.3 % 0.0 - 0.5 % [facility] Interpretation and review of laboratory results Abnormal [facility] LYMPHOCYTES ABSOLUTE AUTO 2.3 [facility] Lymphocytes/100 WBC (Bld) 26.6 % 20.5 - 60.0 % [facility] MCH (RBC) [Entitic mass] 30.1 pg 26.7 - 34.0 pg [facility] MCHC (RBC) [Mass/Vol] 34.6 g/dL 29.9 - 35.2 g/dL [facility] MCV (RBC) [Entitic vol] 87.0 fL 81.0 - 99.0 fL [facility] MONOCYTES ABSOLUTE AUTO 0.4 [facility] Monocytes/100 WBC (Bld) 4.1 % 1.7 - 12.0 % [facility] NEUTROPHILS ABSOLUTE AUTO 5.9 [facility] Neutrophils/100 WBC (Bld) 68.0 % 43.0 - 75.0 % [facility] Platelet mean volume (Bld) [Entitic vol] 9.6 fL 9.5 - 13.5 fL [facility] EO # 0.1 [facility] PLT 400 [facility] RBC 4.55 [facility] WBC 8.7 [facility] CBC without diffon Rbc Mcv (Fl) By Automated Count 87 [facility] - Hematology and Cell countson 04-08-2024 Hematocrit (Bld) [Volume fraction] 39.6 % [facility] Hemoglobin (Bld) [Mass/Vol] 13.7 g/dL [facility] No Panel Informationon 04-08 [facility] Rubella IGG immune statuson 04-08-2024 Rubella immune IgG 2.32 [facility] Syphilis Total(Unknown Syphi lis Status)on 04-08-2024 Syphilis Non-Reactive [facility] Type and screenon 04-08-2024 Abo/Rh(D) Positive [facility] HCG ( test) Ql (U)o n 03-27-2024 Interpretation and review of laboratory results Abnormal [facility] Preg Test, Ur Positive [facility] Urinalysis macro (dipstick) panel (U)on 03-27-2024 Bilirubin, UA Negative Negative - 4(70) +++ mg/dL [facility] Blood, UA Negative Negative - 50 Jimy/mcL [facility] Clarity, UA Clear [facility] Color, UA Yellow [facility] Glucose, UA Negative Negative - 2000(110) ++++ mg/dL [facility] Interpretation and review of laboratory results Normal [facility] Ketones, UA Negative Negative - 160(16) ++++ mg/dL [facility] Leukocytes, UA Negative Negative - 500+++ Mychal/mcL [facility] Nitrite, UA Negative Negative - Positive [facility] pH, UA 5.5 5 - 9 [facility] Protein, UA Negative Negative - 2000(20) ++++ mg/dL [facility] Spec Grav, UA 1.025 1 - 1.03 [facility] Urobilinogen, UA 0.2 0.2 - 12 mg/dL [facility] PROGESTERONEon 07-27-2022 Progesterone 26.9 ng/mL Normal [facility] Comment on above: Result Comment: Foll icular phase 0.1 - 0.9 Luteal phase 1.8 - 23.9 Ovulation phase 0.1 - 12.0 First trimester 11.0 - 44.3 Second trimester 25.4 - 83.3 Third trimester 58.7 - 214.0 Postmenopausal 0.0 - 0.1 Performed By: #### P DONNAES #### [facility] [address] [place] [address] Dr. Ryan Francisco PREG QUANT HCGon 07-12-2022 HCG QUANT <1 Normal [facility] Comment on above: Performed By: #### P REGQNT #### [facility] [address] [place] [address] [address] Ryan Francisco HCG RANGE SEE BELOW Normal [facility] Comment on above: Result Comment: 5-50 0.2-1 WEEK 50-500 1-2 WEEKS 100-5,000 2-3 WEEKS 500-10,000 3-4 WEEKS 1,000-50,000 4-5 WEEKS 10,000-100,000 5-6 WEEKS 15,000-200,000 6-8 WEEKS 10,000-100,000 2-3 MONTHS Performed By: #### P REGQNT #### [facility] [address] [place] [address] Dr. Ryan Francisco XR HYSTEROSALPINGO EXPon XR [...] CLEMENTINE DEWEY Date: 2022-07-12 12:34 Normal [facility] PROGESTERONEon 06-29-2022 Progesterone 4.6 ng/mL Normal [facility] Comment on above: Result Comment: Foll icular phase 0.1 - 0.9 Luteal phase 1.8 - 23.9 Ovulation phase 0.1 - 12.0 First trimester 11.0 - 44.3 Second trimester 25.4 - 83.3 Third trimester 58.7 - 214.0 Postmenopausal 0.0 - 0.1 Performed By: #### P BRETT #### [facility] [address] [place] [address] Dr. Ryan Francisco PROGESTERONEon 06-01-2022 Progesterone 18.9 ng/mL Normal [facility] Comment on above: Result Comment: Foll icular phase 0.1 - 0.9 Luteal phase 1.8 - 23.9 Ovulation phase 0.1 - 12.0 First trimester 11.0 - 44.3 Second trimester 25.4 - 83.3 Third trimester 58.7 - 214.0 Postmenopausal 0.0 - 0.1 Performed By: #### P BRETT #### [facility] [address] [place] [address] Dr. Ryan Francisco US PELVIS AND TRANSVAGon [...] CLEMENTINE DEWEY Date: 2022-05-17 17:25 Normal [facility] PROGESTERONEon 04-29-2022 Progesterone 5.1 ng/mL Normal [facility] Comment on above: Result Comment: Foll icular phase 0.1 - 0.9 Luteal phase 1.8 - 23.9 Ovulation phase 0.1 - 12.0 First trimester 11.0 - 44.3 Second trimester 25.4 - 83.3 Third trimester 58.7 - 214.0 Postmenopausal 0.0 - 0.1 Performed By: #### P BRETT ####[facility] [address] [place], [place] [address]VaDr. Ryan Francisco ANTI-MULLERIAN HORMONEon Anti-Mullerian Hormone (AMH) 6.09 ng/mL Normal [facility] Comment on above: Result Comment: For assays employing antibodies, the possibility exists for interference by heterophile antibodies in the samples.1 1.Steffen Wilson Interferences in Immunoassays - still a threat. Clin. Chem. 2000; 46: 3185-9248. This test was developed and its performance characteristics determined by [employer]. It has not been cleared or approved by the Food and Drug Administration. Reference Range: Females 20 - 25y: 1.23 - 11.51 Median 4.70 AMH concentrations of >= 1.06 ng/mL is correlated with a better response to ovarian stimulation, produced more retrievable oocytes and higher odds of live according to Herber et al. Fertility and Sterility. 2010: 94:5454-0550. The current AMH test method correlates with [...] tumor. Performed By: #### A WEI #### [facility] [address] [place], [place] [address] Dr. Ryan Francisco FSHon 04-05-2022 FSH 3.6 mIU/mL Normal [facility] Comment on above: Result Comment: Adul t Female: Follicular phase 3.5 - 12.5 Ovulation phase 4.7 - 21.5 Luteal phase 1.7 - 7.7 Postmenopausal 25.8 - 134.8 Performed By: #### L [facility] #### [facility] [address] [place] [address] Dr. Ryan Francisco LUTEINIZING HORMONE (LH)on 0 04-05-2022 LH 6.8 mIU/mL Normal [facility] Comment on above: Result Comment: Adul t Female: Follicular phase 2.4 - 12.6 Ovulation phase 14.0 - 95.6 Luteal phase 1.0 - 11.4 Postmenopausal 7.7 - 58.5 Performed By: #### L BCL ####[facility] [address] [place] [address]Dr. Ryan Francisco CBC AUTO DIFFon 04-04-2022 BASO # 0.0 103/ul Normal 0.0-0.1 [facility] Comment on above: Performed By: #### C BC #### [facility] [address] [place] [address] Dr. Ryan Francisco Basophils/100 WBC (Bld) 0.3 % Normal 0.2-2.0 [facility] Comment on above: Performed By: #### C BC #### [facility] [address] [place] [address] Dr. Ryan Francisco EO # 0.1 103/ul Normal 0.0-0.7 [facility] Comment on above: Performed By: #### C BC #### [facility] [address] [place] [address] Dr. Ryan Francisco Eosinophils/100 WBC (Bld) 1.7 % Normal 0.9-7.0 [facility] Comment on above: Performed By: #### C BC #### [facility] [address] [place] [address] Dr. Ryan Francisco Erythrocyte distribution width (RBC) [Ratio] 12.7 % Normal 11.0-15.0 [facility] Comment on above: Performed By: #### C BC #### [facility] [address] [place] [address] Dr. Ryan Francisco Hematocrit (Bld) [Volume fraction] 39.7 % Normal 36.0-48.0 [facility] Comment on above: Performed By: #### C BC #### [facility] [address] [place] [address] Dr. Ryan Francisco Hemoglobin (Bld) [Mass/Vol] 13.4 g/dL Normal 12.0-16.0 [facility] Comment on above: Performed By: #### C BC #### [facility] [address] [place] [address] Dr. Ryan Francisco IG # 0.03 10e3/ul Normal 0.00-0.03 [facility] Comment on above: Performed By: #### C BC #### [facility] [address] [place] [address] Dr. Ryan Francisco IG % 0.5 % Normal 0.0-0.5 [facility] Comment on above: Performed By: #### C BC #### [facility] [address] [place] [address] Dr. Ryan Francisco LYMPH # 1.6 103/ul Normal 1.2-3.8 [facility] Comment on above: Performed By: #### C BC #### [facility] [address] [place] [address] Dr. Ryan Francisco Lymphocytes/100 WBC (Bld) 27.1 % Normal 20.5-60.0 [facility] Comment on above: Performed By: #### C BC #### [facility] [address] [place] [address] Dr. Ryan Francisco MANUAL DIFF REQ NO Normal [facility] Comment on above: Performed By: #### C BC #### [facility] [address] [place] [address] Dr. Ryan Francisco MCH (RBC) [Entitic mass] 29.6 pg Normal 26.7-34.0 [facility] Comment on above: Performed By: #### C BC #### [facility] [address] [place] [address] Dr. Ryan Francisco MCHC (RBC) [Mass/Vol] 33.8 g/dL Normal 29.9-35.2 [facility] Comment on above: Performed By: #### C BC #### [facility] [address] [place] [address] [address] Ryan Francisco MCV (RBC) [Entitic vol] 87.6 fL Normal 81.0-99.0 [facility] Comment on above: Performed By: #### C BC #### [facility] [address] [place] [address] [address] Ryan Francisco MONO # 0.4 103/ul Normal 0.3-0.8 [facility] Comment on above: Performed By: #### C BC #### [facility] [address] [place] [address] Dr. Ryan Francisco Monocytes/100 WBC (Bld) 6.7 % Normal 1.7-12.0 [facility] Comment on above: Performed By: #### C BC #### [facility] [address] [place] [address] Dr. Ryan Francisco NEUT # 3.7 103/ul Normal 1.4-6.5 [facility] Comment on above: Performed By: #### C BC #### [facility] [address] [place] [address] Dr. Ryan Francisco Neutrophils/100 WBC (Bld) 63.7 % Normal 43.0-75.0 [facility] Comment on above: Performed By: #### C BC #### [facility] [address] [place] [address] Dr. Ryan Francisco Platelet mean volume (Bld) [Entitic vol] 9.9 fL Normal 9.5-13.5 [facility] Comment on above: Performed By: #### C BC #### [facility] [address] [place] [address] Dr. Ryan Francisco PLT 421 103/ul Normal 150-450 [facility] Comment on above: Performed By: #### C BC #### [facility] [address] [place] [address] Dr. Ryan Francisco RBC 4.53 106/ul Normal 4.20-5.40 [facility] Comment on above: Performed By: #### C BC #### [facility] [address] [place], [place] [address] Dr. Ryan Francisco WBC 5.8 103/ul Normal 4.0-11.0 [facility] Comment on above: Performed By: #### C BC #### [facility] [address] [place], [place] [address] Dr. Ryan Francisco FREE T4on 04-04-2022 Free T4 [Mass/Vol] 0.99 ng/dL Normal 0.76-1.46 [facility] Comment on above: Performed By: #### F T4 #### [facility] [address] [place], [place] [address] Dr. Ryan Francisco TSHon 04-04-2022 TSH 3.086 uIU/mL Normal 0.358-3.740 [facility] Comment on above: Performed By: #### T SH ####[facility] [address] [place], [place] [address]VuDr. Ryan Francisco US PELVIS AND TRANSVAGon US [...] by: LUCHO MIXON Date: 2022-04-04 16:38 Normal [facility] Auth for Release of Medical Recordson 12-20-2021 Auth for Release of Medical Records [id number]# 1.00CD:127 Normal [facility] Coding Summary.on 08-22-2021 Coding Summary. CD:[id number] Gh0bWw+PGhlYWQ+PE1FV RJlZ04hyZMmzJ6EZ5vPN Q3JLGARNXPTNF5YFN7bc VB3QJmaW5OmwgKy TyhhgJSiDC28NAz3BSH3 vRmzHPwfkZ0laNHtH4e2 NrQsTP53dU63GRsvXSYb QhP8SyOxssndvHIs B9yuNxGlyWWdXau+PHRh YmxlIHdpZHRoPScxMDAl OnKjeOoaDF2dRk2uEQVq LWNvbGxhcHNlOiBj e7zzRIQsIBdnUN9kfAgj O1ImbHA0AQQnf6u3Jz88 dHI+RFVnRAR1qGvuQHwg j608FtQce8pyKXU8 zABaUMllHRH5H04pw1N8 ELFlHKYxUZG0tTJ4nY1j mPobwhepP9IstGNxCeU5 EEC2lPJaqR7ruSrf aqskgE7yRna+B31PDS2Q KWITYA9DIdb7X0BvSfsr dHI+JG37DRIoLX74vCTn xIBuk0jibRz7XnNf TYVzCQL6xSktFWqsr0Gx AOOiA31nfMSlg6T4JLNp uBrmqQClUvCwcBZ9eI8n UBxmwismw4npqxzy Rmsda8dtwh21sB85U87i CCcgJBZpBWV0ALOdGZSi cVjghv1mnF3wSd9+IDxj k0yae1qclTf9ZrPp IMOxnaOfpDzkOMJ3f8Yu Ls48D1BgeGzlx2BvZvi8 bf21yEAlv2T6cGY8KUjq OZFbgR2oDBnrTgZ6 QVEsDrLazQ66lLFgIXxm Su0hrCpkpVhkHC8eBNXa dbczDFDhnK1yXULxwCUz yJbmDP3gQXRixpba n383UmImGQW9OQHbdQTl Z2PetO9dYfZxCGQqCNSl T4NgtHBaUCexM569GAwk EjU0YZIansKwG1Jc CABwhJhvPcC1v0A5Su2X n0RmxxtnSQN1MSkrZKOe QfG4DvBePvI4P8CeOmi3 JJYvfRhaQB5wS6Hj BJHcqflnwnkqaEC2CVTq KVKuaS89cIBrDWouSz3y z3G6e449JWFoOOYzrB53 Yq7kxHnzRSSoxUBA fE5kpcpyx1jrkpdtPvEv FJQdQSh7EEa2KESrxMvp NyTwQEX9EpL3OQC0bHZl nI7fyWiguuiziH0e Oyc+R32wpV2rIAO2LBD7 lskbUMSokfKlSD72ZN18 N2SxBuzlxESwjUD+PGRp zkOztEjrGE0rZdSc g6cma4RpJLykF0YbTLKn XGlvLce8EEJiOCH7vVC9 jD7hDCClQMifs4J0eKC6 Y5YncpNhdo1ty6oa GAGpKPfyC91itPXqk9X0 HNFynPF6NAPkgTcdVsNu hO34Owl+HDKvdIohg4Ly Qsdgi8ibv5vyjZj3 IjMwJSIgdmFsaWduPSJ0 l3WzMz56A88xPNinNGZe CEZbRPFpWQKgqUkokx9s hC7eEr9+PGNvbCB3 gBW3pQ2mZTQlMrF2OSen Q956DxJroFKqLvoyl0ly l6wozKo4QlJfUBTefgLb mFuaJXO1e4RdEn88 H73jXFxrJPCuYMVwWHLx XPAldQafbr0gyR7wLx2+ LO4it5jpgu35xC33zQE+ MPUhTQR1qCjdUXyr SPJpsR8iAXeaYgS6ODMh DdMgnG33iCKeYGssDj2k vAwruXesAF2wTIPxaviu c681DyUdx8luBWAa gAMvNElyQDP2N13zd4P4 TTAlMICzEWW3aWB0lD1v bGlnbjogbGVmdDsgdmVy pPbyYUooUJzbC771 IHRvcDsnPlBhdGllbnQg SkPwSDb7E3ZpOyn1PVOn uCzgKP2ypYLkPIgsRw1x cBvwnNayAX9mFDRf gnddh027OeGxl0vhANUq oFOdNQvtEMY2Q64tz7J3 XXClQNTcQHN2iAM5gG2r bGlnbjogbGVmdDsg nxDkdSqyINnpTPqaL180 IHRvcDsnPkJpcnRoIERh yXP5VC23TD78pGPrb5Q2 oNM0R1KjATGiirus xkqmhNH2PKUuDVBeeA32 Du8jeOseUn7wBXQrSOO7 JSEqlIPoZ5PmdD3iDuCe HNCtLGKwG0NvdKAw KMjiA552HDwqLlJ0GVJp esAeL0VoQFDscDyvDzH4 z0K2Ze4WR2R9SY39UE15 oGTcg6Q2cHJ2K2Us IFUzkibhhrbfeYM5WWCv PXDvlS57Yl7flHpzNe8t AFTtBCO7NAStbIMqW3Id jR4xZjGcYQYxNSUo Q8JkbGLhMHssJ792KWoz JgM2NSVkceBnR4ItPXRb wPbeSzH7y8D1Jc8ZDWv6 GW69IF99eWXri0B8 dBX1R4ZpIUFxbucmefay vDF7TXUlNOZzlC38Er1i wVlyTm2mRIFvGAK1DMLa qMKdN5OdgN6oUwMe XYHxYDBhZ7JfbZWoFUow W808NGihCeV5MUPwhiLe I8MgTVLolMxiCyO7h3M8 Dm1OMSOkJB14SKE3 qTW5IO05UU93K1IhNpfm dGFibGU+PHRhYmxlIHdp ZHRoPScxMDAlJyBzdHls JL4kIz4nOAKgXMCs lNumgCHoUzWdj0qxRZXx BKcqPJ7lqHpbK2MzpOJ2 HWCir8w1Kb84K59jI5Ux dXA+NIWilNZ3sFB7 jP4xJrXwRyY5FVrvB273 NtFrkITeHypug8bft1xk zDh7EdW9MXFycwJctHdy YUD0l9EuMm11L86m IHdpZHRoPSIxNSUiIHZh tHncas2qeB5rXp1+PGNv fPB8wMC4tX0lJqDwOrX6 XIllT107KkEeiIZc Yxyls6cjw3lepLf0VnSo LUEmckEgmRtxXVT0a6Fa Py18F6OuiSyts9CiWby5 pe06rIWlp0V8fZI2 P2ZlTAVxiwxhpZPqeIsm CM2vYCRdjsqwUHYfcI7w NTEgR4i3LbScGgK0PMcq H6IgvuI5SSKjwRIj YHpkCOP9T20zq4J1YWPv HVFuEAY2xGF6yT1coHer bjogbGVmdDsgdmVydGlj PYesMVduD040YCQm eQejMHVqfX8pPVInfTCi wQcwEA5xZIDffamgOfkD OSOfTZiIBVTBIU25HN22 yGKcu3J8iVY6C2Th ZMPgmikyljcuuMP9PHOp APTcsH29nVMzKFotYa0m m6C5z532UVBuZCGrmL52 Tj5tfOjnHSLjxCIL eC4qvaakk9wqkninMyRo QQEpIRz6HMk0HASliZsh BsMrFSJ6NmR7JUR3lPLf oO5vvRqdakmkzU2p Oyc+VWDeGflgTBg9SMnr dGQ+DWQtFHE8bCijIEhr YKUjuA4mFWJqC2y6NiXq TxS2YUwlH1HaFTJa qguhBq19tB0oMfSoLcT3 FFpnX6VyzhS7HZJvpPXc ZWljCAR0W11pt1K0EQPp MBUmKGU6gMF7iC5k bGlnbjogbGVmdDsgdmVy tFkxJFmgLFtlL247YAWf lFibKpHyMDulBAFkNA04 OS47pNAhd1Y1zGQ3 W5ElVMVcqffzewfxcTN3 MQVyUWLyvL34mARzHByr Iy3ve8T9r808YKPsPRFc bG21Yl8bcTrwXUSa kMHCbF8qmjtuq8xenvbm XbTeZTNnVIn4AVz3GXKx sNofYoIoVOU1NiN6NQA1 wSEiqL4kyFyjicpk nQ1aYfa+RqPnGRshAO69 YT95bGCgj6W1jAM2T8Vn KLQrjxbfczhqxUS7STFn MLTgeU09hUSnKZia Rk7cq3V5n182GVXnLCPt bF55Kt5kaGdqVEVnhQMY gP0fdwfga3yqrpuuCxHl MVChVCq4LOv1QYBs aPvgIsFuGAU6UdR4LAD3 nLMfiB7kgLzeifwfgI1z Oyc+H1C7lVH3lAOstKmb dGQ+HH90or46W9Em BdpsQca1BBYnREX4xYC4 iY7dGAShVYgml5X5dFI3 C4PfinXckv6ry0zqPGVj LFwwG08etIKkk4Y9 GKAbzBX3PBIokFykAaUj wF69Ywo+SYOjbLxew1Jc Vpcic9oub2zweGo6AaQi JSIgdmFsaWduPSJ0 g7KfMr53Q24lJZfyOUMn OVQiVPSyTZQbbLaads1s zV4gTw4+HMEhcTQ7cLM5 kP3zHbAxFdY3VVrl L741EuHzfQHdOvaoz8uf d6gsoDd0EcHzNFGrlgWn yRgcQBL2b6MyOe74Q1Oy uKjxs4CiKvh2qr45 gKAfy8Z7kCC9I4BgZDDt tkmgkCQjsOqwBL5pHPCo rsjrTVMzcZ5zHIRiB4m5 TwNhHfO7TAunY4Wg qwJ6PLAzsQPrFNGxtDUX uZ6fdpcei4idxasfDqIk TNYeMFo4MFf4EUGsfYtg QnOsVVR2CkW3INY4 bSSjyH6ukVjqklnfoA3e Oyc+EUk8k5nytWLmFM8o qGH2SD49LO27lEXrd8Z9 dCM4E6PhZYTdvoni dfkpbMQ4YUQjWDHsrZ67 Jn9qnVkvDz7aYJXkIHZ9 ZJTflQLhK4HcdJ6uFkBa PZEpNZIvE7VktSQj MSpmU264CCwnEaF0PANx fsWlU4IlOTMawKfvShF0 n8H6It4HJR54VP04PU96 sXYvk8W2jNH4N1Dy JJXiyzwavqqttJO4IJAe KZTtkZ74Kh3rwAacLa7j TGIhPEH7YBVkjUAzO0Bj bU9zAyWzXWEtFPKq O1QfwZZjGJrfF828BIsy IuC5MPRdcsGwC5UrWUHw cNuvHgZ2m4N4Rl7KCc15 XR49MR28aKSdd4G4 oUV5X3FaJZQzgpheeyua iWR2BFEcFIHhaB70Xm3r aMarTa8yOQRjJEM4YQAw zQPxQ7QiuG6hYaNs XGAnMNUrE7KfxBUwVKey O338FQyxVbU1QNIkrrIz H7RtBBBexUyfJeT6e0G0 Ol3RDUzejnx4J1Hh PjwvdHI+QW84LNWbZU53 zJEahIEfl1amtHr8ZlJv HEYuFBU2jDzmRWdpd4Sg NBYgQ27kmZScz0B1 IGNv (more content not included)... Normal [facility] Coding Summary. CD:[id number] Gh0bWw+PGhlYWQ+PE1FV IExQ57uuVKgbW2MC8iPY O4KWDIRWCQGKO7KOY2rx HK6ARakY8JiudSd QvkoqRMxJG08GDs5LHX1 sOldQJjajV3tcRSdA9z8 OwAwCC52lM99YEcyTPVw ZlL4KqIofcybbWNg G7wlQyUydBOiMzu+PHRh YmxlIHdpZHRoPScxMDAl JfRhuYelMZ1bYz3aESJs LWNvbGxhcHNlOiBj n8bzUVKsDIvqWB4puJmi T6RxrPW4KPIjs1w5Xh44 dHI+TLLpQPQ9gBidKEst b571QkZnm2jxRVA7 uFDjFQbvWTM6D03qn3Q2 BQEwZOIyJZG0kME0wY5q hRrmhvbxI7GgoPXeJzZ1 NSD8lFLkvA2esJwl lzywbL6wSqj+V97QMZ0Y RWLLST2CWwf3G3PkTozv dHI+YH42FKAkCY40qSCq iLVdu8lhnXw4PjSf KIEaNND7eIhoJEdpt3Zz HKAwU39yqSGii6F7UFAv sGslnLKoAfXqcPL5gA8o GNcisoueh9isbyxg Svfbh5gehy79wK94G55b SXxeBRVuJMU7YTEgGOPk gRmvff7htI5fWv6+IDxj r6umt0gufAy1XjNc JVUipvJteQroMFO2l8Tn Da61Y5ZjqCpky6HqNvc1 pe38wVNfi8P3gAS4MGbk QRMhiY5kKYikBuA9 RDHaIcHjoP12sPShXSqt Pv8acRiveMciMM5rAIFv uteoKQNltP7jCYCxyOGc aHbtPM8cLIHgkhmz k386KiLgLIA9KDDsqZWu Z4OteF2zIyFkXUYoXPOm F7MywRHsAOsfH478VLaw LfB0BDBgysSrD5Xn LQMfwJbjAtL2l7T3Xh8I y5AgtrylLIS7XDwsPYDu HjY2KzMrCjG9O6IdLxo2 VRFelGeoIV0eZ7Pd RMNmszydkewktTQ6GAIu TPCtuZ25sNDpHCmcTa2l a4V3g431ZHWvOKWqpD58 Vz7utRvlVZVvvEZB dX2hugzwg9nguyjzYfVs HSHxHVc4DTt9HKWnuMpr QfYfESK8TmL8QJD7fKZr bG8xpSqwfskdgQ0s Oyc+J70otO8hQQL3UNO5 ffsfQHHbzcHoPN27JO39 L1KlSwaxmJKhlRF+PGRp ukZxmGgpJB3cRcMt i2jph3ZsQBpeW6PdBHQf UQwwGzr9ZQVeRHQ0zLM0 oK5sRDDoHOdhr8Y3rAC7 M2EkmsBgtk6nb6tb FYKvEVbnU68irTOid8A4 PGAekVT3HFJlaFtfMiXm pT37Lud+RKYabYmxi6Ny Txfpj2slx3sciDn9 IjMwJSIgdmFsaWduPSJ0 l4SjAh68O63gVAkjUHMs PBQwROBvDHCbgQffrw2q aF6lQd8+PGNvbCB3 zAC7vJ4rLZOfCkY6KUtj Q510RvFiuMPmJspuq1id b9budPc9EyIeFEZmzhKu rFyyVQS1s4BhJn46 F25tBHbqYIKvZKJyJACh AFJqgRljfw1pjK4xUe3+ PX1od3qayo26bJ18iIL+ VUEdXVF1tFgzMGmf HKWnjV5nTKheUiC4RSHb ToSpsV31fKHuGLkfFo7f aAwkoArrPY6hZJQnjxgb o808JkRpp1zcUJZg zOTaAWyuYQO0B87hf9Q4 EYWnMNEwKBN4xAE7fG3q bGlnbjogbGVmdDsgdmVy sQaxROcgSMqrQ762 IHRvcDsnPlBhdGllbnQg RrFpJCa4H7FwMkg3FYFy fLuqVX3zzWGdFLlaId5k hXpxbXhjXV1sBFCp kylaw654QeUmn8ilCEGo tESgJQqvEKE9O07yn2O9 WMOuTHPhTTU0aZP7yE5e bGlnbjogbGVmdDsg hpVnxEgjSWwkCOwlV893 IHRvcDsnPkJpcnRoIERh lUR5SI53BX50hZCxt3I1 dUA3L0SrFFDeosiz avmubQI1HULgYBOruP02 Xt5shUibDn1kFKYqTML7 XZZbxONhC6NymE7sUhRo PBQlNZMiP5ZxsMBq BHegG458TJqrYiW5DKZb ldRqO4MwIBKmxNgwLtF5 i4X8Wv7NY7H1RG38CY38 zUZvg6C7tJF5O9Vv NJTmwpiuejjynHC5HMTo MQLtwX32Sz8biHrrOp5r QXYqUIO1VKBqqHXyQ1Lw yW3yYlKvHSYfGTMx U4TlrPBrVLhnB906VTvd AxC5UODptwKgC1DeEPUn jJkpTeC5d2L4Oj2DJSg4 AF73EB87fMHfs8J9 kTO3E1OnJBHtlpenldft gFA7WTHeECJukZ65Pw2z mYhkTk6mHYIpDUT4HONz xEZqZ7GzkS1uGfCt BGMnRXHlM1AspCXyJLoc B589GBzrHvK9PPNgwuQj A2XhRAEnsFsvYfO7y3H2 Cm1YSGNtLV29ZDF5 aGO9ZG46JB33Y5LqDthl dGFibGU+PHRhYmxlIHdp ZHRoPScxMDAlJyBzdHls IM5fXn5bLIAiWAYq jSbgcMVkBdAik6tgKOQp HOqiNB0fhOeyR6XssTS3 TSRrm6h5Xc23W19dW9Ov dXA+RUBgmYI0eCB1 qJ8nZhZdXrB5YGcqV102 SeAaxFDjGdtnd0rfk6ke wZl3UnK5DBPmqeZcvDcl CYV1z9CgUe72Q69l IHdpZHRoPSIxNSUiIHZh xJifst3wqC7lXe1+PGNv aXS2sGX9eJ2kYnCwEpX1 GFvqG056EyQcbHKl Dbgga4mwo3cqeIo3QxUw NUNsanFbyPeaITV1x8Gj Qr60P7YfnKcgh9AqXfl0 mk12aUNwo7Z3xTV0 S9SjSLQvpetssGQhwFaw UH0vZZDsbxobYXWdoL0b GMKvU9l1EoFyCoP7XDsz R9XjciL4ESLsvHZb VAgjJTP8X50ts2E1PJSj IMFaWWD1tRJ0vA6fwGif bjogbGVmdDsgdmVydGlj BAycNCmwJ631GJYg pEzkRZAvcD9zDRAhbEZz lAemKS6aJONtztbmMzjS YSCgIUjIQSPWTM04KZ97 mTDuq2M8aRB1U5Xs CEExtubgwnywyVT6XWLr YIBmhS38dVPzGKzzKj6j w0Y5o828HEWpVMQazC01 Ec9vaCvpUYTcbDPK sP5frxqtg0jukpkcIfFj KXChPIl8YJk9YTVjpLrz RqPfBTU9ZaC2ZJK5fAEs dQ3qsAphapdviV0y Oyc+DMBzZrhnSQe6WWav dGQ+TJAbGHE5bAseDVxy TBPspD5fMCRvP1c3OwZe YlB1RGkiK6AeFSNv udmqQv91oI8mOmLsPrZ8 SNerR6UjzaY3ROFgyAWr ABieSKM2W67dh8M7QFWf HEQmNPL9lDA7oR2s bGlnbjogbGVmdDsgdmVy zXmkWDbrFQsdT198PBSa mVeyQfYnBYprXYPuWP29 DX24oBGhm9P9wNZ2 Z7GjOQFvhwfurgguzVY9 ADTtSYKseY15mYPvPDuz Zs6ns9X6l010HSKgGBQp hL73Lr7crWpmRIRd fLOQqL7dagqaa5nsrdjs OfDsBNRqKDs5XFi0MCHh rYckFcVnZVU2DgK5NIE3 wWEaqT4cdWijsjqa xD2zSxo+BhEjPCfsKU76 YI06gKXwv9T8nVO8P8Vy MAXqskbkakbovAH6IOYv YBFgmI72dVDmDNxb Iu0fv2A2y683UHBxZEHc zP94Do9jzCszSRHgcOCU aA8mqmbsy6sanborWxIl YRCrZXs1PRo8YRQv eVbbDoKjXDI0WoX3TSG5 mSTlgN0hbEepvfimxH3h Oyc+HSVoEMMls0Oxy8Ga VR96OL95S5LbXoho dGFibGU+PHRhYmxlIHdp ZHRoPScxMDAlJyBzdHls BQ3iBi0aNIWtQXGxcXde vPFfSxCyy4exPWCp TXcrGF0vrEmjG5CgxVP9 QNFsc1d8Cj76D66tD4Kk dXA+WOKixVT9iDQ2vS3h RuVlTtW5IXhrY159 XaVngXEnQnsyk5pth9ej aZu2VfMlBRZyxzJigDiy DWK9i2RlAt88W62iSWfy ZHRoPSIyMCUiIHZh aCajsa8vdF0hHn0+PGNv cXJ4zZW1aP7eUpQmCkR6 LTxxO975FkKunCOrXitu H85dH1YhaEC+PHRy Jjt6FBVjzMckLX0ozKHx LKpeEx9jHEC2EdMoJhGh ZHlmP5JaETGgqozxagzi uQV2DPOmFFVvbN85 Eb9unGfiIv7nSIFaYHU7 FXTlrPJfG2TkrR7mQgEb JBHyMPGgF4VxpVOgECxh E765UNakHdQ2RIZc nrJzN2TbKDEmlPkqPxA4 k8Y0Hg0JhUhizYPqBR8y DgBsMCf6J4OkZtt2PPUi mVidLA0iaOCdSYze Oe4jaRwtjBstMQ5cSTOn mcbzm852LjFyv5kyIMNh cOEyCXswJMV9D39yi6U8 GUBbGBUsHKJ0qHO0 fX1ddYbsbygyxPErhMuv siVhuTovNXgcGBniJ448 QNXcyXjvFbYBHis5B4Rr Emz8SGClqPsiIN3k iFEwCXmdWy1ufBmszLro SN7iXLNyzhexj903SeFl e1ydKHZwvOJmAYcbDAH5 N30pv9S5WBWoWWJy TWW5kTX2bJ1lbImbkahn bGVmdDsgdmVydGljYWwt BBvgP708FEDzuEtnEr5Y Trv2C5HyHhq2NJVc gPsiPO7lcAOxJAltPv0j kEcodWltGR2kXTWgnjgd z075KnEps3rgRQLhqIZz NGdoAFM5W18la8X9 QYOiUEDyAUX5cQL7kP0e bGlnbjogbGVmdDsgdmVy oVwqDUlrTCxqT303YGLf cDsnPlBheWVyOjwv dGQ+KK27ed29W6KxSoxz Czp1ULAjGOE4tMD6hV8g RNWnHZonl0V5oAG0T6Dv lzTtpd2vk8juXLKh [employer] (more content not included)... Normal [facility] PAP [id number] 08-15-2021 Cytology report Cyto stain Doc (Cvx/Vag) Note Invalid Interpretation Code [facility] Comment on above: Result Comment: TEST S RESULT FLAG UNITS REF RANGE LAB Clinician Provided Cytology Information Source.............[employer] No. of containers..01 ThinPrep Vial DIAGNOSIS: 01 NEGATIVE FOR INTRAEPITHELIAL LESION OR MALIGNANCY. Specimen adequacy: 01 Satisfactory for evaluation. No endocervical component is identified. Performed by: 01 Sujey Engle Pin Or Clip Fastener (ASCP) . 01 Note: Note 01 The [...] <-Panic Low,>-Panic High,A-Abnormal,AA-Critical Abnormal Performed at: [address] [id number] Mar Rivera MD, Performed By: #### 1 [id number] #### [facility] [address] [place] [address] HPV 16+18+31+33+35+39+45 +51+52+56+58+59+66+6 8 DNA Probe+sig amp Ql (Cvx) Negative Invalid Interpretation Code Negative [facility] Comment on above: Result Comment: This nucleic acid amplification test detects fourteen high-risk HPV types (16,18,31,33,35,39,45,51,52,56,58,59,66,68) without differentiation. Performed at: [address] [id number] MD Nicole Manuel Performed at: =G [address] [id number] MD Nicole Manuel Performed By: #### 1 [id number] #### [facility] [address] [place] [address] Insulin Lvlon 08-11-2021 Insulin Qn 24.3 u[IU]/mL Invalid Interpretation Code 2.6-24.9 [facility] Comment on above: Result Comment: Perf ormed at: [address] [id number] PhD Archie Jha Performed By: #### 1 [id number] #### [facility] [address] [place] [address] Consent for Treatmenton 07-29 Consent for Treatment [id number] #1.00CD:127 Normal [facility] Glu Fastingon 08-10-2021 Glucose [Mass/Vol] 95 mg/dL Normal 55-99 [facility] Comment on above: Performed By: #### 1 [id number] #### [facility] [address] [place] [address] Physician Orderon 08-10-2021 Physician Order [id number] 2#1.00CD:127 Normal [facility] PAP [id number] 08-09-2021 Collection Technique BRUSH-SPATULA Normal [facility] Comment on above: Performed By: #### 1 [id number] #### [facility] [address] [place] [address] Gynecological Body Site ENDOCERVIX Normal [facility] Comment on above: Performed By: #### 1 [id number] #### [facility] [address] [place] [address] Physician Orderon 08-09-2021 Physician Order [id number] #1.00CD:127 Normal [facility] Gynecology Office/Clinic Not pratik 02-17-2019 Gynecology Office/Clinic [...] Family History Family history is negative Normal [facility] Comment on above: Result Comment: Elec tronically [...] Family History Family history is negative Normal [facility] Comment on above: Result Comment: Elec tronically Signed By: Shamika ISAACS, Kaley Wilson\.br\Date and Time Signed: 02/17/19 12:09 EDT Vital Signs Date Time Vital Sign Value Performing Clinician Facility 08-27-2024 11:45-0500 Body mass index (BMI) [Ratio] 35.08 kg/m2 [employer] DO Work Phone: [facility] 08-27-2024 11:45-0500 Body weight 87 kg [employer] DO Work Phone: [facility] 08-27-2024 11:45-0500 Diastolic blood pressure 82 mm[Hg] [employer] Work Phone: [facility] 08-27-2024 11:45-0500 Systolic blood pressure 122 mm[Hg] [employer] DO Work Phone: [facility] 08-12-2024 11:08-0500 Body mass index (BMI) [Ratio] 34.93 kg/m2 Immanuel Yobani DO Work Phone: [facility] 08-12-2024 11:08-0500 Body weight 86.64 kg Immanuel Yobani DO Work Phone: [facility] 08-12-2024 11:08-0500 Diastolic blood pressure 80 mm[Hg] Immanuel Yobani DO Work Phone: [facility] 08-12-2024 11:08-0500 Systolic blood pressure 120 mm[Hg] Immanuel Yobani DO Work Phone: [facility] 07-20-2024 11:00-0500 Body mass index (BMI) [Ratio] 34.39 kg/m2 Immanuel Yobani DO Work Phone: [facility] 07-20-2024 11:00-0500 Body weight 85.28 kg Immanuel Yobani DO Work Phone: [facility] 07-20-2024 11:00-0500 Diastolic blood pressure 76 mm[Hg] Immanuel Yobani DO Work Phone: [facility] 07-20-2024 11:00-0500 Systolic blood pressure 122 mm[Hg] Immanuel Yobani DO Work Phone: [facility] 06-22-2024 14:31-0500 Body mass index (BMI) [Ratio] 34.2 kg/m2 Immanuel Yobani DO Work Phone: [facility] 06-22-2024 14:31-0500 Body weight 84.82 kg Immanuel Yobani DO Work Phone: [facility] 06-22-2024 14:31-0500 Diastolic blood pressure 78 mm[Hg] Immanuel Yobani DO Work Phone: [facility] 06-22-2024 14:31-0500 Systolic blood pressure 124 mm[Hg] Immanuel Yobani DO Work Phone: [facility] 06-15-2024 10:27-0500 Body weight 84.82 kg Cele Rodriguez MD Work Phone: [facility] 06-15-2024 10:27-0500 Diastolic blood pressure 88 mm[Hg] Cele Rodriguez MD Work Phone: [facility] 06-15-2024 10:27-0500 Heart rate 99 /min Cele Rodriguez MD Work Phone: [facility] 06-15-2024 10:27-0500 Respiratory rate 18 /min Cele Rodriguez MD Work Phone: [facility] 06-15-2024 10:27-0500 Systolic blood pressure 137 mm[Hg] Cele Rodriguez MD Work Phone: [facility] 05-25-2024 11:46-0400 Body mass index (BMI) [Ratio] 33.84 kg/m2 Immanuel Yobani DO Work Phone: [facility] 05-25-2024 11:46-0400 Body weight 83.92 kg Immanuel Yobani DO Work Phone: [facility] 05-25-2024 11:46-0400 Diastolic blood pressure 74 mm[Hg] Immanuel Yobani DO Work Phone: [facility] 05-25-2024 11:46-0400 Systolic blood pressure 118 mm[Hg] Immanuel Yobani DO Work Phone: [facility] 04-27-2024 10:35-0400 Body mass index (BMI) [Ratio] 33.75 kg/m2 Immanuel Yobani DO Work Phone: [facility] 04-27-2024 10:35-0400 Body weight 83.69 kg Immanuel Yobani DO [facility] [facility] 04-27-2024 10:35-0400 Diastolic blood pressure 76 mm[Hg] Immanuel Yobani DO Work Phone: [facility] 04-27-2024 10:35-0400 Systolic blood pressure 122 mm[Hg] Immanuel Yobani DO Work Phone: [facility] 03-27-2024 10:27-0400 Body mass index (BMI) [Ratio] 34.53 kg/m2 [facility] 03-27-2024 10:27-0400 Body weight 85.64 kg Nom Nurse [facility] 03-27-2024 10:27-0400 Diastolic blood pressure 70 mm[Hg] [facility] Nurse [facility] 03-27-2024 10:27-0400 Systolic blood pressure 120 mm[Hg] [facility] Nurse [facility] 01-02-2024 09:15-0400 Body height 157.48 cm [facility] 01-02-2024 09:15-0400 Body mass index (BMI) [Ratio] 33.9 kg/m2 [facility] 01-02-2024 09:15-0400 Body temperature 100.2 [degF] [facility] 01-02-2024 09:15-0400 Body weight 84.08 kg [facility] 01-02-2024 09:15-0400 Heart rate 115 /min [facility] 01-02-2024 09:15-0400 Respiratory rate 18 /min [facility] 01-02-2024 09:15-0400 SaO2% (BldA) [Mass fraction] 99 % [facility] Encounters Encounter Date Encounter Type Care [...] Bamboo flowsheet Immanuel Yobani DO Work Phone: [facility] Start: 06-22-2024 End: 06-22-2024 Bamboo flowsheet Immanuel Yobani DO Work Phone: [facility] Start: 06-22-2024 End: 06-22-2024 flow sheet Immanuel Yobani DO Work Phone: [facility] Comment on above: Second trimester pre gnancy; 22 weeks gestation of ; Personal history of cardiac murmur Start: 06-22-2024 End: 06-22-2024 ambulatory IMMANUEL YOBANI Not Available Start: 06-15-2024 End: 06-15-2024 Office consultation new/estab patient 60 min Cele Rodriguez MD Work Phone: [facility] Comment on above: 21 weeks gestation o f (Primary Dx); Chronic hypertension affecting ; In vitro fertilization Start: 06-15-2024 End: 06-15-2024 ambulatory [facility] Start: 05-28-2024 End: 05-30-2024 Clinisync Result Encounter Immanuel Yobani DO Work Phone: [facility] External Department Unsolicited Start: 05-28-2024 End: 05-30-2024 Clinisync Result Encounter Immanuel Yobani DO Work Phone: [facility] External Department Unsolicited Start: 05-27-2024 End: 05-27-2024 Chart abstracting Cele Rodriguez MD Work Phone: [facility] Start: 05-25-2024 End: 05-25-2024 Bamboo flowsheet [...] Not Available Start: 01-02-2024 End: 01-02-2024 ambulatory [facility] Work Phone: Start: 01-02-2024 End: 01-02-2024 Patient encounter procedure [facility] Work Phone: Start: [...] malign ant neoplasm of cervix Pap Smear [facility] Start: 06-15-2025 Tobacco Screening Tobacco Screening [facility] Start: 09-08-2024 End: 09-08-2024 Patient encounter procedure 09/08/2024 8:30 AM EST Routine [facility] [address] [place] [address] Immanuel Hilton, DO [address] [place] [address] [facility] Start: 08-27-2024 End: 08-27-2024 Patient encounter procedure 08/27/2024 11:40 AM EST Routine [facility] [address] [place] [address] Immanuel Hilton, DO [address] [place] [address] [facility] Start: 08-27-2024 End: 08-27-2024 Professional / ancillary services management 08/27/2024 11:00 AM EST Ancillary Procedure [facility] [address] [facility] [place] [id number] [facility] Start: 08-12-2024 End: 08-12-2025 [...] End: 06-15-2024 Patient encounter procedure [facility] Start: 05-25-2024 End: 11-23-2024 Alpha fetoprotein, maternal Alpha fetoprotein, maternal Lab Routine Second trimester Expected: 05/25/2024 (Approximate), Expires: 11/23/2024 [facility] Comment on above: Expected: 05/25/2024 (Approximate), Expires: 11/23/2024 Start: 05-25-2024 End: 05-25-2024 Patient encounter procedure [facility] Comment on above: Arrived Start: 05-05-2024 End: 05-05-2024 Professional / ancillary services management 05/05/2024 2:30 PM EDT Ancillary Procedure [facility] [address] [facility] [place] [address] [facility] Start: 04-27-2024 End: 04-27-2025 US Pelvis transvaginal US OB transvaginal Imaging Routine Encounter for screening for cervical length Expected: 04/27/2024 (Approximate), Expires: 04/27/2025 [facility] Work Phone: Comment on above: Expected: 04/27/2024 (Approximate), Expires: 04/27/2025 Start: 04-27-2024 End: 04-27-2024 Patient encounter procedure 04/27/2024 10:20 AM EDT Routine [facility] [address] [place] [phone] Immanuel Hilton, DO [address] [facility] [address] [place] [address] [facility] Start: 03-29-2024 COVID-19 Vaccine ( season) COVID-19 Vaccine ( season) [facility] Start: 03-29-2024 Influenza vaccination [facility] Start: 03-27-2024 End: 03-27-2025 ABO/Rh ABO/Rh Lab Routine Missed menses Expected: 03/27/2024 (Approximate), Expires: 03/27/2025 [facility] Comment on above: Expected: 03/27/2024 (Approximate), Expires: 03/27/2025 Start: 03-27-2024 End: 03-27-2025 Blood type and Indirect antibody screen panel - Blood Type and screen Lab Routine Missed menses Expected: 03/27/2024 (Approximate), Expires: 03/27/2025 [facility] Work Phone: Comment on above: Expected: 03/27/2024 (Approximate), Expires: 03/27/2025 Start: 03-27-2024 End: 03-27-2025 US Pelvis transvaginal US OB transvaginal Imaging Routine Missed menses Expected: 03/27/2024 (Approximate), Expires: 03/27/2025 [facility] Comment on above: Expected: 03/27/2024 (Approximate), Expires: 03/27/2025 Start: 2020 Screening for malign ant neoplasm of cervix Pap Smear [facility] Start: 2018 DTaP,Tdap and Td Vaccines (1 - Tdap) DTaP,Tdap and Td Vaccines (1 - Tdap) [facility] Start: 2017 Adult BMI Screening Adult BMI Screen ing [facility] Start: 2011 Depression Screening Depression Scre ening [facility] Start: 2011 Tobacco Screening Tobacco Screening [facility] Start: 1999 Screening for Chlamy leoncio trachomatis Chlamydia Screening [facility] Bacteria identified in Urine by Culture Urine culture Microbiology Routine Missed menses Ordered: 03/27/2024 [facility] Comment on above: Ordered: 03/27/2024 CBC W Auto Different ial panel - Blood CBC and differential Lab Routine Missed menses Ordered: 03/27/2024 [facility] Comment on above: Ordered: 03/27/2024 CHLAMYDIA TRACHOMATI S (GENITO/STI) CHLAMYDIA TRACHOMATIS (GENITO/STI) Lab Routine STD exposure Ordered: 05/25/2024 [facility] Comment on above: Ordered: 05/25/2024 Cytology Cervical or vaginal smear or scraping study Pap Smear Pathology and Cytology Routine Well woman exam with routine gynecological exam Ordered: 05/25/2024 [facility] Work Phone: Comment on above: Ordered: 05/25/2024 Hemoglobin A1c/Hemoglobin.total in Blood Hemoglobin A1c Lab Routine Missed menses Ordered: 03/27/2024 [facility] Comment on above: Ordered: 03/27/2024 Hepatitis B virus surface Ag [Presence] in Serum or Plasma by Immunoassay Hepatitis B surface antigen Lab Routine Missed menses Ordered: 03/27/2024 [facility] Comment on above: Ordered: 03/27/2024 Hepatitis C virus Ab [Presence] in Serum or Plasma by Immunoassay Hepatitis C antibody Lab Routine Missed menses Ordered: 03/27/2024 [facility] Comment on above: Ordered: 03/27/2024 HIV-1/HIV-2 antigen/antibody combination immunoassay HIV-1 and HIV-2 antibodies Lab Routine Missed menses Ordered: 03/27/2024 [facility] Comment on above: Ordered: 03/27/2024 Neisseria gonorrhoea e DNA [Presence] in Unspecified specimen by BUCK with probe detection Neisseria gonorrhea DNA probe, direct Lab Routine STD exposure Ordered: 05/25/2024 [facility] Comment on above: Ordered: 05/25/2024 Reagin Ab [Presence] in Serum by RPR RPR Lab Routine Missed menses Ordered: 03/27/2024 [facility] Comment on above: Ordered: 03/27/2024 Rubella antibody, IgG Rubella an tibody, IgG Lab Routine Missed menses Ordered: 03/27/2024 [facility] Comment on above: Ordered: 03/27/2024 SURESWAB(R) ADVANCED VAGINITIS PLUS, TMA SURESWAB(R) ADVANCED VAGINITIS PLUS, TMA Pathology and Cytology Routine Vaginal discharge Ordered: 05/25/2024 [facility] Comment on above: Ordered: 05/25/2024 Payers Date Payer Category Payer Commercial Managed C [facility] [employer] [id number] 2023 [facility] er [id number] 2023 Unknown [id number] 2021 Private Health Insurance [id number] 2021 Unknown [id number] [id number]. [id number] 2021 Unknown [id number] 1999 Unknown [id number] 2.16.840.1.357638.3.579.2. 593 1999 Unknown [id number] 2.16.840.1.647626.3.579.2. 593 1999 Unknown [id number] 2.16.840.1.178935.3.579.2. 593 1999 Unknown [id number] 2.16.840.1.686999.3.579.2. 593 1999 Unknown [id number] 2.16.840.1.746903.3.579.2. 593 1999 Unknown [id number] 2.16.840.1.407702.3.579.2. 593 1999 Unknown [id number] 2.16.840.1.547318.3.579.2. 593 1999 Unknown [id number] 2.16.840.1.108836.3.579.2. 1286 1999 Unknown [id number] 2.16.840.1.247630.3.579.2. 1286 1999 Unknown [id number] 2.16.840.1.532068.3.579.2. 1259 1999 Unknown [id number] 2.16.840.1.722950.3.579.2. 9 1999 Unknown [id number] 2.16.840.1.664728.3.579.2. 9 1999 Unknown [id number] 2.16.840.1.737682.3.579.2. 1258 1999 Unknown [id number] 2.16.840.1.405364.3.579.2. 9 1999 Unknown [id number] 2.16.840.1.854266.3.579.2. 1258 1999 Unknown [id number] 2.16.840.1.345873.3.579.2. 9 1999 Unknown [id number] 2.16.840.1.360960.3.579.2. 1258 1999 Unknown [id number] 2.16.840.1.208983.3.579.2. 9 1999 Unknown [id number] 2.16.840.1.201078.3.579.2. 1259 1959 Private Health Insurance [id number] 1959 Unknown [id number] Social History Date Type Detail Facility Tobacco smoking stat [facility] Unknown if ever smoked [facility] Work Phone: Start: 2000 Sex Assigned At Female F [facility] Start: 01-02-2024 End: 05-27-2024 Tobacco smoking status MEIS Never smoked tobacco [facility] Start: 01-02-2024 End: 05-27-2024 Tobacco use and exposure Smokeless tobacco non-user [facility] Start: 04-27-2024 End: 08-27-2024 Alcoholic beverage intake Ex-drinker (finding) [facility] Start: 01-02-2024 End: 06-15-2024 History of Social function [facility] Start: 01-02-2024 End: 06-15-2024 Tobacco use panel [facility] Start: 01-29-2024 [facility] Start: 11-26-2023 Gender identity Identifies as female gender (finding) [facility] Start: 05-27-2024 End: 06-15-2024 Alcoholic beverage intake Lifetime non-drinker (finding) [facility] Start: 1999 Sex assigned at Not on file [facility] Start: 05-26-2024 Sex Female (finding) [facility] Medical Equipment Procedure Code Equipment Code Equipment Origin al Text Equipment Identifier Dates 1 strip by In Vi tro route Daily Use in the morning prior to breakfast, 1 hour after each meal for a total of 4times daily. [id number] Start: 07-20-2024 End: 08-19-2024 1 each by In Vit ro route Daily Use to check FSBS four times daily [id number] Start: 07-20-2024 End: 08-19-2024 Goals Date Patient Goal Desired Activity /State Personal health goal Clinical Notes 03-27-2024 to 08-27-2024 Esperanza Peter, PHYSICIAN IN PRIVATE PRACTICE - 08/27/2024 11:40 AM Donell Tracy, [facility] - 08/12/2024 11:10 AM Kamille Garcia [place] - 07/20/2024 10:20 AM Gautam Peter, [facility] - 06/22/2024 1:50 PM EST Note Date [...] a total of 4times daily. Continuous Glucose Application Packaging Specialist (FreeStyle Jenise 3 Rolla) device 1 each, Does not apply, Every 14 days Continuous Glucose Sensor (FreeStyle Jenise 3 Sensor) misc 1 each, Does not apply, Every 14 days metroNIDAZOLE (FLAGYL) 500 mg, Oral, 2 times daily, Do not drink alcohol while taking this medication Multiple Vitamin (multivitamin) tablet 1 tablet, Daily ALLERGIES Allergies Allergen Reactions [place] Flavor [[place] Oil] Latex Hives, Itching, Rash and Swelling [...] nursing note reviewed. Exam conducted with a optometric technician present. Vitals: Estimated body mass index is [...] Immanuel Hilton DO documented in this encounter [facility] 08-12-2024 History of Present illness Narrative [...] 1 tablet, Daily ALLERGIES Allergies Allergen Reactions [place] Flavor [[place] Oil] Latex Hives, Itching, Rash and Swelling [...] nursing note reviewed. Exam conducted with a optometric technician present. Vitals: Estimated body mass index is [...] Immanuel Hilton DO documented in this encounter [facility] 07-20-2024 History of Present illness Narrative [...] mg, Oral, Daily ALLERGIES Allergies Allergen Reactions [place] Flavor [[place] Oil] Latex Hives, Itching, Rash and Swelling [...] Immanuel Hilton DO documented in this encounter [facility] 06-22-2024 History of Present illness Narrative [...] mg, Oral, Daily ALLERGIES Allergies Allergen Reactions [place] Flavor [[place] Oil] Latex Hives, Itching, Rash and Swelling [...] Immanuel Hilton DO documented in this encounter [facility] 06-15-2024 History of Present illness Narrative [...] Allergies: Allergies Allergen Reactions Latex, Natural Rubber [place] Meds: Prior to Admission medications Medication Sig [...] other morbidities. Based on the available evidence, [facility] recommends treatment with antihypertensive therapy for [...] preeclampsia prevention as is recommended by the [place] [employer] Committee Opinion No. 743. [...] Cele Rodriguez MD, FACOG (she/hers) Maternal- Medicine [facility] [address] 1[address] [place] [address] This document was created with Osurv technology. Though I make every effort to review the dictation as it is transcribed, on occasion the spoken word can be misinterpreted by the technology leading to inappropriate words, phrases, or sentences. This note is addressed to the requesting provider as a consultation for clinical guidance. Specific medical abbreviations are occasionally used and those are generally approved by the [place]?Board of?Obstetrics and?Gynecology?as well as?Kenzie croft abbreviations. The above plan of care was based solely on the diagnoses for which a consultation was requested. ?More frequent testing may be indicated based on her other medical/obstetrical conditions. The management of other or medical conditions is beyond the scope of requested consultation and will continue to be followed by the primary breakdown mill operator or primary care provider. Note to patient: [...] IVF Have you been seen here at [facility] in a previous ? N/a Recent ER visits or hospitalizations? no Bring blood sugar log or meter with you today? (Please bring them with you for every visit at [facility]) no Flu vaccine (May-September)? no Any concerns that you would like me to mention to the provider today? no documented in this encounter [facility] 05-25-2024 History of Present illness Narrative Reason [...] mg, Oral, Daily ALLERGIES Allergies Allergen Reactions [place] Flavor [[place] Oil] Latex Hives, Itching, Rash and Swelling [...] nursing note reviewed. Exam conducted with a optometric technician present. Vitals: Estimated body mass index is [...] Immanuel Hilton DO documented in this encounter [facility] 04-27-2024 History of Present illness Narrative [...] mg, Oral, Daily ALLERGIES Allergies Allergen Reactions [place] Flavor [[place] Oil] Latex Hives, Itching, Rash and Swelling [...] nursing note reviewed. Exam conducted with a optometric technician present. Vitals: Estimated body mass index is [...] with IVF . Patient to also have [facility] referral for IVF and Level II ultrasound. [...] or undercooked meat, and stay away from [facility]. Patient has been consulted regarding any further do's and don'ts of . Patient voiced understanding and all questions and concerns were answered. Orders Placed This Encounter Procedures POCT urinalysis dipstick manually resulted Follow Up: Patient is to return in 4 weeks for routine OB appointment. Documented by Esperanza Peter LPN on behalf of: Immanuel Hilton DO documented in this encounter [facility] 03-27-2024 History of Present illness Narrative [...] Procedure Laterality Date TONSILLECTOMY Allergies Allergen Reactions [place] Flavor [[place] Oil] Latex Hives, Itching, Rash and Swelling [...] or undercooked meat, and stay away from [facility]. Patient has also been advised to [...] Jo-Ann Motta LPN documented in this encounter [facility] Evaluation note No assessment inform ation available [facility] Work Phone: Evaluation note Diagnosis Well woman exam with routine gynecological exam Routine gynecological examination Second trimester state, incidental Vaginal discharge Leukorrhea, not specified as infective STD exposure documented in this encounter [facility] HealthcareEvaluation note* Diagnosis 21 weeks gestation of - Primary Chronic hypertension affecting In vitro fertilization Encounter for assisted reproductive fertility procedure [facility] Diagnosis Second trimester state, incidental 22 weeks gestation of Personal history of cardiac murmur Personal history of other diseases of circulatory system documented in this encounter [facility]* Diagnosis Missed menses documented in [...] fertility procedure cycle documented in this encounter [facility] Healthcare[facility] note* Diagnosis Third trimester state, incidental 32 weeks gestation of documented in this encounter [facility] HealthcareInstructionsNot on filedocumented in this encounterProMedica Health SystemInstructionsNot on filedocumented in this encounterProRmc [facility] SystemInstructions* Attachments The following attachments cannot be sent through Care Everywhere. * Preeclampsia (Luxembourger) documented in this encounterProR[facility] Summary Purpose Family History Relationship Condition Age at Onset Recorded Date/T yosi family member Unknown Heart disease Unknown Advance Directives Advance Directive Response Recorded Date/ Time Advance Directives No January 01 9:07am Chief Complaint and Reason for Visit Chief Complaint Congestion Additional Source Comments INFORMATION SOURCE (unrecogn ized section and content) DATE CREATED AUTHOR 03/06/2019 [facility] [place] [facility] DATE CREATED AUTHOR AUTHOR'S ORGANIZ ATION 12/21/2021 [facility] DATE CREATED AUTHOR AUTHOR'S ORGANIZ ATION 12/01/2022 [facility] DATE CREATED AUTHOR AUTHOR'S ORGANIZ ATION 06/17/2024 [facility] DATE CREATED AUTHOR AUTHOR'S ORGANIZ ATION 08/29/2024 [facility] dical Specialists [facility] Care Teams (unrecognized sec tion and content) Team Status: Active Member Role Status Dates Damon Stover DO Primary Care Provider Active Team Status: Inactive Member Role Status Dates Damon Stover DO Primary Care Provider Active Start: January 02, 2024 End: January 02, 2024 Teresa Sanchez APRN Attending Provider Active S tart: January 02, 2024 End: January 02, 2024 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 Start Date End Date Akila Grant MD [address] [place] [address] PCP - General Family Medicine 11/27/23 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 Start Date End Date Akila Grant MD [address] [place] [address] PCP - General Family Medicine 11/27/23 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 Start Date End Date Akila Grant MD [address] [place] [address] PCP - General Family Medicine 11/27/23 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 Start Date End Date Akila Grant MD [address] [facility] [place] [address] PCP - General Family Medicine 11/27/23 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 Start Date End Date Akila Grant MD [address] [facility] [place] [address] PCP - General Family Medicine 11/27/23 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 Start Date End Date Akila Grant MD [address] [facility] [place] [address] PCP - General Family Medicine 11/27/23 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 Start Date End Date Akila Grant MD [address] [facility] [place] [address] PCP - General Family Medicine 11/27/23 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 Start Date End Date Akila Grant MD [address] [facility] [place] [address] PCP - General Family Medicine 11/27/23 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 Start Date End Date Akila Grant MD [address] [facility] [place] [address] PCP - General Family Medicine 11/27/23 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 Start Date End Date Akila Grant MD [address] [facility] [place] [address] PCP - General Family Medicine 11/27/23 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 Start Date End Date Akila Grant MD [address] [place] [facility] [address] PCP - General Family Medicine 11/27/23 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 Start Date End Date Akila Grant MD [address] [place] [facility] [address] PCP - General Family Medicine 11/27/23 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 [facility] provides no warranty or guarantee of the accuracy or completeness of information in this document.
--- NOTE | 2024-09-05 09:08 | ED.EAR1 ---
HPI - Ear Problem General Chief complaint: Ear Stated complaint: POSSIBLE RIGHT EAR INFECTION, 33 WEEKS Time Seen by Provider: 09/05/24 08:48 Mode of arrival: walk-in History of Present Illness HPI Narrative: The patient is a 24 years old female who is 33 weeks coming to the ER with a right ear pain that started almost 2 days ago, she was then started on amoxicillin by her primary care and apparently the patient is not feeling better. She denies any other concerns she had congestion and runny nose preceding the symptoms Related Data Home Medications ?Medication ?Instructions ?Recorded ?Confirmed amoxicillin 500 mg capsule 500 mg PO Q12H 09/05/24 09/05/24 Previous Rx's ?Medication ?Instructions ?Recorded ciprofloxacin HCl 0.2 % ear drops 5 drp otic (ear) BID 7 days #14 ea 09/05/24 in a dropperette Allergies Allergy/AdvReac Type Severity Reaction Status Date / Time No Known Drug Allergies Allergy Verified 02/22/23 00:53 Review of Systems ROS Status of ROS 10 or more systems reviewed and unremarkable except as noted in history and below PFSH PFSH Social History Smoking status: Never smoker Little interest or pleasure in doing things: not at all Feeling down, depressed, or hopeless: not at all Exam Narrative Exam Narrative: Nurses notes and vital signs reviewed and patient is not hypoxic. General: Well-appearing and in no apparent distress. Skin: Warm, dry, no pallor noted. No rash. Head: Normocephalic, atraumatic. Neck: Supple, non-tender. Eye: Pupils are equal, round and EOMI. No scleral icterus. Ears, Nose, Mouth, and Throat: TM are clear, there is significant erythema of the external auditory canal on the right side with tenderness on palpation of the ear auricle, the patient have swelling of the auditory canal with mild narrowing, left ear examination was benign Cardiovascular: Regular Rate and Rhythm without murmur, gallop or rub. Respiratory: No accessory muscle use or respiratory distress. Lungs are clear to auscultation, no wheezing, rales or rhonchi Chest Wall: no tenderness Back: No midline thoracic or lumbar vertebral tenderness. No CVA tenderness Musculoskeletal: normal ROM, no calf or popliteal tenderness, no lower extremity edema/swelling GI: Abdomen is soft, non-distended. Normal bowel sounds. No masses appreciated. No tenderness to palpation. No rebound, guarding, or rigidity noted. Constitutional Vital Signs, click to edit/add: Last Vital Signs Temp 98.2 F 09/05/24 08:44 Pulse 112 H 09/05/24 08:44 Resp 18 09/05/24 08:44 BP 145/94 H 09/05/24 08:44 Pulse Ox 98 09/05/24 08:44 O2 Del Method Room Air 09/05/24 08:44 Course Vital Signs Vital signs: Vital Signs Temperature 98.2 F 09/05/24 08:44 Pulse Rate 112 H 09/05/24 08:44 Respiratory Rate 18 09/05/24 08:44 Blood Pressure 145/94 H 09/05/24 08:44 Pulse Oximetry 98 09/05/24 08:44 Oxygen Delivery Method Room Air 09/05/24 08:44 Temperature 98.2 F 09/05/24 08:44 Pulse Rate 112 H 09/05/24 08:44 Respiratory Rate 18 09/05/24 08:44 Blood Pressure 145/94 H 09/05/24 08:44 Pulse Oximetry 98 09/05/24 08:44 Oxygen Delivery Method Room Air 09/05/24 08:44 Medical Decision Making [facility] Narrative Medical decision making narrative: The patient presenting with possible otitis externa and I do agree that she can continue taking her amoxicillin but she need ciprofloxacin eardrops I reviewed the patient history of being 33 weeks and with the fact that ciprofloxacin eardrops have very minimal absorption and considered safe as it is used local not systemic The patient was discharged with ciprofloxacin eardrops The patient is to follow up with primary care physician in next 2-3 days or to return to the emergency department should any of the signs or symptoms worsen or new symptoms develop. The patient agrees with the following Diagnosis and Treatment plan and the patient will be discharged home. Discharge Plan Discharge Chief Complaint: Ear Clinical Impression: Otitis externa Patient Disposition: Home, Self-Care Time of Disposition Decision: 09:00 Condition: Good Prescriptions / Home Meds: New ciprofloxacin HCl 0.2 % dropperette 5 drp otic (ear) BID 7 Days Qty: 14 0RF Rx Instructions: for the right ear please we can use ophthalmic 0.3 % solution if not available No Action amoxicillin 500 mg capsule 500 mg PO Q12H Print Language: Yi Instructions: [facility] (ED) Referrals: Kayce Pham MD [Primary Care Provider] - 1 week
== END 2024-09-05 09:13 | disposition home or self-care (01) ==
PROVIDERS: Emergency Provider Emergency Medicine; PCP Family Medicine
DX: O24.419 Gestational diabetes mellitus in pregnancy, unspecified control (principal); Z3A.33 33 weeks gestation of pregnancy; H92.01 Otalgia, right ear
CPT/HCPCS: 59025; 99283

== ENCOUNTER 2024-09-09 00:41 | Outpatient (OUT) | payer OTHER, BC, SELFPAY ==
--- NOTE | 2024-09-09 | US_ITS ---
[address] [address] Patient Name: ANNA MARIO MRN: [id number] date: 2000 Sex: F Assigned Patient Location: [facility] Current Patient Location: [facility] Accession/Order Number: [id number] Exam Date: 09/09/2024 07:58 Report Date: 09/09/2024 11:30 At the request of: LUIS DOTY Procedure: US OB BPP w non-stress EXAMINATION: US OB BPP w non-stress HISTORY: Gestational diabetes mellitus O24.419 COMPARISON: No relevant comparison available. TECHNIQUE: Ultrasound biophysical profile was performed in the radiology department. non-reactive stress testing was performed by nursing staff in the birthing center. FINDINGS: BREATHING MOVEMENTS: 2 GROSS BODY MOVEMENTS: 2 TONE: 2 QUALITATIVE AMNIOTIC FLUID VOLUME: 2 PRESENTATION: CEPHALIC HEART RATE: 133.00 bpm AMNIOTIC FLUID VOLUME: 16.7 cm GESTATIONAL AGE: 33 weeks 6 days US/US OB BPP w non-stress IMPRESSION: Total biophysical profile score: 8 Electronically authenticated by: CLEMENTINE DEWEY Date: 09/09/2024 11:30
--- OUTSIDE RECORDS SUMMARY | 2024-09-09 00:45 | XMS_ITS | CCD ---
Author Organization [facility] Care Team Providers Care Educational Paraprofessional Name Role Phone YOBANI ., DR SMITH [...] allergy (disorder) 0 hives [facility] (1 source) orange flavor Drug allergy (disorder) 0 [facility] (5 sources) King - fruit; Translations: [ORANGE] 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 4 anaphylaxis [facility] (20 sources) Latex 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 4 Hives, Itching, Rash, Swelling [facility] (20 sources) orange allergenic extract Drug Allergy 4 [facility] Work Phone: (1 source) natural latex rubber; Translations: [LATEX, NATURAL RUBBER] Propensity to adverse reactions to drug (disorder) 4 [facility] Medications Current Medications Medication Drug Class(es) Dates Sig (Normalized) Sig (Original) amoxicillin 500 mg oral tablet (1 source) Penicillin-class Antibacterial Start: 09-03-2024 End: 09-10-2024 take 1 tablet by mouth in the morning amoxicillin (Amoxil) 500 MG tablet Indications: Ear infection Take 1 tablet (500 mg) by mouth in the morning and 1 tablet (500 mg) before bedtime. Do all this for 7 days. 14 tablet 09/03/2024 09/10/2024 Active amoxicillin 875 mg / clavulanate 125 mg oral tablet (1 source) Penicillin-class Antibacterial Start: 01-02-2024 take 1 tablet by mouth twice daily Amoxicillin-Pot Clavulanate Active 1 TAB PO Twice daily 20 January 02, 2024 12:00am aspirin 81 mg chewable tablet (5 sources) Platelet Aggregation Inhibitor, Nonsteroidal Anti-inflammatory Drug [...] Glucose Monitoring Suppl (D-Care Glucometer) w/Device kit (11 sources) Start: 07-20-2024 End: 07-20-2025 Blood Glucose [...] MCG/0.5ML injection 11/26/2023 03/27/2024 Discontinued Continuous Glucose Guest Services Associate (FreeStyle Jenise 3 [place]) device (5 sources) Start: 08-20-2024 Continuous Glucose [employer] Services Associate (FreeStyle Jenise 3 [place]) device Indications: Gestational diabetes mellitus (GDM), antepartum, gestational diabetes method of control unspecified , Third trimester 1 each every 14 (fourteen) days 1 each 3 08/20/2024 Active Continuous Glucose Sensor (FreeStyle Jenise 3 Sensor) misc (5 sources) Start: 08-20-2024 Continuous Glucose Sensor (FreeStyle Jenise 3 Sensor) misc Indications: Gestational diabetes mellitus (GDM), antepartum, gestational diabetes method of control unspecified , Third trimester 1 each every 14 (fourteen) days 2 each 3 08/20/2024 Active isopropyl alcohol 0.7 ml/ml medicated pad (11 sources) Start: 07-20-2024 Alcohol Swabs (Alcohol Prep [...] 02, 2024 12:00am take 1 tablet by tg th in the morning predniSONE (DELTASONE) 5 [...] 2024 12:00am terconazole 4 mg/ml vaginal cream (4 sources) Azole Antifungal Start: 09-03-2024 End: 09-10-2024 terconazole (Terazol 7) 0.4 % vaginal cream Indications: Yeast infection Insert 1 applicator into the vagina at bedtime for 7 days 45 g 09/03/2024 09/10/2024 Active Start: 05-25-2024 End: 06-03-2024 terconazole (Terazol 7) [...] of ] 06-22-2024 Episodic Residual codes; unclassified (14 sources) Gestation period, 26 weeks; Translations: [26 [...] SINGLE THYROID NODULE] Onset: 04-08-2022 Chronic Unclassified (20 sources) OB Reminders Onset: 05-18-2024 05-18-2024 Unclassified [...] Test Name Value Interpretation Reference Range Facility OB BPP W NON-STRESS on 09-02-2024 [place] [address] Ultrasound Report Signed Patient: AMY MARIO MR#: [id number] : 2000 Acct:[id number] Age/Sex: 24 / F ADM Date: 09/02/24 Loc: US Attending Dr: Immanuel Hilton D.O. Ordering Physician: Immanuel Hilton D.O. Date of Service: 09/02/24 Procedure(s): US OB BPP w non-stress Accession Number(s): [id number] cc: Akila Grant M.D.; Immanuel Hilton D.O. [place] [address] Patient Name: AMY MRAIO MRN: [facility]:[id number] date: 2000 Sex: F Assigned Patient Location: [facility] Current Patient Location: Accession/Order Number: [id number] Exam Date: 09/02/2024 08:03 Report Date: 09/02/2024 [...] M.D. Signed By: 09/02/24924 DD/ 1 TD/TT: Relief Manager: [facility] Radiology, Radiologist, MD - 09/02/2024 [place] [address] Ultrasound Report Signed Patient: AMY MARIO MR#: [id number] : 2000 Acct:[id number] Age/Sex: 24 / F ADM Date: 09/02/24 Loc: US Attending Dr: Immanuel Hilton D.O. Ordering Physician: Immanuel Hilton D.O. Date of Service: 09/02/24 Procedure(s): US OB BPP w non-stress Accession Number(s): [id number] cc: Akila Grant M.D.; Immanuel Hilton D.O. [address] [place] [address] Patient Name: AMY MARIO MRN: [facility]:[id number] date: 2000 Sex: F Assigned Patient Location: [facility] Current Patient Location: Accession/Order Number: [id number] Exam Date: 09/02/2024 08:03 Report Date: 09/02/2024 [...] M.D. Signed By: 09/02/24924 DD/ 1 TD/TT: Relief Manager: [facility] Radiology Study observation (narrative) [facility] US OB BPP W NON-STRESS Ordered By: Radiologist Radiology on 09-02-2024 [facility] Work Phone: US OB FOLLOW UP TRANSABDOMIN [...] 2164 gm / 4 lbs, 12 oz (8327-1770 gm) [place] Normal: 1953 gm (0314-5179 mg) [place] 80% for 32.0 wks (GA [...] report is generated using voice recognition reporting (iApp4Me). On occasion iApp4Me erroneously drops words from the report or [...] UA Positive Negative - 4(70) +++ mg/dL [facility] Comment on above: small Blood, UA Negative Negative - 50 Jimy/mcL [facility] Clarity, UA Clear [facility] Color, UA Yellow [facility] Glucose, UA Positive Negative - 2000(110) ++++ mg/dL [facility] Comment on above: 100 Interpretation and review of laboratory results Abnormal [facility] Ketones, UA Positive Negative - 160(16) ++++ mg/dL [facility] Comment on above: trace Leukocytes, UA Positive Negative - 500+++ Mychal/mcL [facility] Comment on above: large Nitrite, UA Negative Negative - Positive [facility] pH, UA 6.5 5 - 9 [facility] Protein, UA Positive Negative - 2000(20) ++++ mg/dL [facility] Comment on above: 30 Spec Grav, UA 1.03 1 - 1.03 [facility] Urobilinogen, UA 0.2 0.2 - 12 mg/dL [facility] US OB BPP W NON-STRESS on 08-26-[address] [address] Ultrasound Report Signed Patient: AMY MARIO MR#: [id number] : 2000 Acct:[id number] Age/Sex: 24 / F ADM Date: 08/26/24 Loc: [facility] 251-[address]: Immanuel Hilton D.O. Ordering Physician: Immanuel Hilton D.O. Date of Service: 08/26/24 Procedure(s): US OB BPP w non-stress Accession Number(s): [id number] cc: Akila Grant M.D.; Immanuel Hilton D.O. [place] [address] Patient Name: AMY MARIO MRN: [facility]:[id number] date: 2000 Sex: F Assigned Patient Location: [facility] Current Patient Location: [facility] Accession/Order Number: [id number] Exam Date: 08/26/2024 08:00 Report Date: 08/26/2024 [...] Mixon M.D. Signed By: 08/26/24 0858 DD/ TD/TT: Relief Manager: [facility] Radiology, Radiologist, - 08/26/2024 [place] [address] Ultrasound Report Signed Patient: AMY MARIO MR#: [id number] : 2000 Acct:[id number] Age/Sex: 24 / F ADM Date: 08/26/24 Loc: [facility] 251-[address]: Immanuel Hilton D.O. Ordering Physician: Immanuel Hilton D.O. Date of Service: 08/26/24 Procedure(s): US OB BPP w non-stress Accession Number(s): [id number] cc: Akila Grant M.D.; Immanuel Hilton D.O. [place] [id number] Patient Name: AMY MARIO MRN: [id number] date: 2000 Sex: F Assigned Patient Location: [facility] Current Patient Location: [facility] Accession/Order Number: [id number] Exam Date: 08/26/2024 08:00 Report Date: 08/26/2024 [...] Mixon M.D. Signed By: 08/26/24 0858 DD/ TD/TT: Relief Manager: [facility] Radiology Study observation (narrative) [facility] US OB BPP W NON-STRESS Ordered By: Radiologist Radiology on 08-26-2024 [facility] Work Phone: Urinalysis macro (dipstick) panel (U)on 08-12-2024 Bilirubin, UA Negative Negative - 4(70) +++ mg/dL [facility] Blood, UA Negative Negative - 50 Jimy/mcL [facility] Clarity, UA Clear [facility] Color, UA Yellow [facility] Glucose, UA Negative Negative - 1999(110) ++++ mg/dL [facility] Interpretation and review of laboratory results Abnormal [facility] Ketones, UA Positive Negative - 160(16) ++++ mg/dL [facility] Comment on above: trace Leukocytes, UA Positive Negative - 500+++ Mychal/mcL [facility] Comment on above: large Nitrite, UA Negative Negative - Positive [facility] pH, UA 5.5 5 - 9 [facility] Protein, UA Trace Negative - 1999(20) ++++ mg/dL [facility] Spec Grav, UA 1.03 1 - 1.03 [facility] Urobilinogen, UA 0.2 0.2 - 12 mg/dL [facility] ALL CBC WITH AUTO DIFFon BASOPHILS ABSOLUTE AUTO 0 [facility] Basophils/100 WBC (Bld) 0.3 % 0.2 - 2.0 % [facility] Eosinophils/100 WBC (Bld) 1 % 0.9 - 7.0 % [facility] Erythrocyte distribution width (RBC) [Ratio] 13.2 % 11.0 - 15.0 % [facility] Hematocrit (Bld) [Volume fraction] 32.6 % Low 36.0 - 48.0 % [facility] Hemoglobin (Bld) [Mass/Vol] 11.3 g/dL Low 12.0 - 16.0 g/dL [facility] IMMATURE GRANULOCYTES ABS AUTO 0.07 High [facility] Immature granulocytes/100 WBC (Bld) 0.9 % High 0.0 - 0.5 % [facility] Interpretation and review of laboratory results Abnormal [facility] LYMPHOCYTES ABSOLUTE AUTO 1.6 [facility] Lymphocytes/100 WBC (Bld) 19.6 % Low 20.5 - 60.0 % [facility] MCH (RBC) [Entitic mass] 30.4 pg 26.7 - 34.0 pg [facility] MCHC (RBC) [Mass/Vol] 34.7 g/dL 29.9 - 35.2 g/dL [facility] MCV (RBC) [Entitic vol] 87.6 fL 81.0 - 99.0 fL [facility] MONOCYTES ABSOLUTE AUTO 0.6 [facility] Monocytes/100 WBC (Bld) 8 % 1.7 - 12.0 % [facility] NEUTROPHILS ABSOLUTE AUTO 5.6 [facility] Neutrophils/100 WBC (Bld) 70.2 % 43.0 - 75.0 % [facility] Platelet mean volume (Bld) [Entitic vol] 9.7 fL 9.5 - 13.[address] [facility]1 [facility] PLT 400 [facility] RBC 3.72 Low [facility] WBC 8 [facility] Urinalysis macro (dipstick) panel (U)on 06-22-2024 Bilirubin, UA Negative Negative - 4(70) +++ mg/dL [facility] Blood, UA Negative Negative - 50 Jimy/mcL [facility] Clarity, UA Clear [facility] Color, UA Yellow [facility] Glucose, UA Negative Negative - 1999(110) ++++ mg/dL [facility] Interpretation and review of laboratory results Abnormal [facility] Ketones, UA Positive Negative - 160(16) ++++ mg/dL [facility] Comment on above: 15 Leukocytes, UA Positive Negative - 500+++ Mychal/mcL [facility] Comment on above: small Nitrite, UA Negative Negative - Positive [facility] pH, UA 5.5 5 - 9 [facility] Protein, UA Trace Negative - 1999(20) ++++ mg/dL [facility] Spec Grav, UA 1.03 1 - 1.03 [facility] Urobilinogen, UA 0.2 0.2 - 12 mg/dL [facility] IGP,APTIMA HPV,AGE GDLNon AGE GDLN ACOG TESTING Note . [facility] Comment on above: TESTS RESULT FLAG U NITS REF RANGE LAB Clinician Provided Cytology Information Source.............Cervix Other.............. No. of containers..01 ThinPrep Vial Age Algo ACOG Michelle... -25 08 FLAG LEGEND: L-Low Normal,H-High Normal,LL-Alert Low,HH-Alert High <-Panic Low,>-Panic High,A-Abnormal,AA-Critical Abnormal Performed at: 01 =[address] [facility] [address] Mar Rivera MD, IGP, RFX APTIMA HPV ASCU Note . [facility] Comment on above: TESTS RESULT FLAG UN ITS REF RANGE LAB DIAGNOSIS: 02 NEGATIVE FOR INTRAEPITHELIAL LESION OR MALIGNANCY. FUNGAL ORGANISMS MORPHOLOGICALLY CONSISTENT WITH CARLOS SPECIES ARE PRESENT. Specimen adequacy: 02 Satisfactory for evaluation. No endocervical component is identified. An endocervical component is not commonly seen in the patient. Performed by: Judy Vera, Bracelet And Brooch Maker ([facility]) . 02 Note: Note 02 The [...] <-Panic Low,>-Panic High,A-Abnormal,AA-Critical Abnormal Performed at: [address] [address] Mar Rivera MD, Performed at: =[address] [id number] Trucker Hand: Mar Rivera MD, Phone: [phone] Performed at: [address] [id number] Trucker Hand: Mar Rivera MD, Phone: [phone] SPATULA-ALONE CERVIX [facility] AFP, SERUM, OPEN SPINA BIFID Aon 05-30-2024 AFP MOM 1.36 . [facility] AFP VALUE 55.4 ng/mL . [facility] COMMENT: Comment . [facility] Comment on above: Ivet Mobley , Ph.D., [facility] Director References: Available Upon Request. Multiples Of Median Cutoffs For AFP Elevations [place] 2.5 Black 2.8 IDD 2.0 Twins 4.5 Abbreviation Definitions IDD - Insulin Dep Diabetes OSBR - Open Spina Bifida Risk For further inquiries contact [facility] at [phone]. This test was developed and its performance characteristics determined by [facility]. It has not been cleared or approved by the Food and Drug Administration. Performed at: [place] [address] [place], [place] [id number] Trucker Hand: Kristina Carter [facility], Phone: [phone] GEST. AGE ON COLLECTION DATE 18.6 . weeks [facility] GESTAT. AGE BASED ON LMP . [facility] Comment on above: Recalculations are n ot recommended when gestational dating by LMP and ultrasound are within 10 days. INSULIN DEP DIABETES No . [facility] INTERPRETATION Comment . [facility] Comment on above: Interpretation: Scre en [...] Customer Services to discuss available options. The [employer] recommends amniocentesis be offered to women age 35 and older. MATER[age] AT SARA 25.3 . [age] [facility] MULTIPLE GESTATION No . [facility] OSBR RISK 1 [place] 4034 . [facility] RACE . [facility] RESULTS Report . [facility] TEST RESULTS: Negative . [facility] WEIGHT 185 . lbs [facility] N N LMP [id number] 4 18 N 1 Y 185 N N N N N White/ [facility] Urinalysis macro (dipstick) panel (U)on 04-27-2024 Bilirubin, UA Positive Negative - 4(70) +++ mg/dL [facility] Comment on above: small Blood, UA Negative Negative - 50 Jimy/mcL [facility] Clarity, UA Clear [facility] Color, UA Yellow [facility] Glucose, UA Negative Negative - 1999(110) ++++ mg/dL [facility] Interpretation and review of laboratory results Abnormal [facility] Ketones, UA Positive Negative - 160(16) ++++ mg/dL [facility] Comment on above: trace Leukocytes, UA Positive Negative - 500+++ Mychal/mcL [facility] Comment on above: small Nitrite, UA Negative Negative - Positive [facility] pH, UA 6.0 5 - 9 [facility] Protein, UA Negative Negative - 1999(20) ++++ mg/dL [facility] Spec Grav, UA 1.030 1 - 1.03 [facility] Urobilinogen, UA 0.2 0.2 - 12 mg/dL [facility] ALL CBC WITH AUTO DIFFon BASOPHILS ABSOLUTE AUTO 0.0 [facility] Basophils/100 WBC (Bld) 0.1 % Low 0.2 - 2.0 % [facility] Eosinophils/100 WBC (Bld) 0.9 % 0.9 - 7.0 % [facility] Erythrocyte distribution width (RBC) [Ratio] 13.0 % 11.0 - 15.0 % [facility] IMMATURE GRANULOCYTES ABS AUTO 0.03 [facility] Immature granulocytes/100 WBC (Bld) 0.3 % 0.0 - 0.5 % [facility] Interpretation and review of laboratory results Abnormal [facility] LYMPHOCYTES ABSOLUTE AUTO 2.3 [facility] Lymphocytes/100 WBC (Bld) 26.6 % 20.5 - 60.0 % [facility] MCH (RBC) [Entitic mass] 30.1 pg 26.7 - 34.0 pg [facility] MCHC (RBC) [Mass/Vol] 34.6 g/dL 29.9 - 35.2 g/dL [facility] MCV (RBC) [Entitic vol] 87.0 fL 81.0 - 99.0 fL [facility] MONOCYTES ABSOLUTE AUTO 0.4 [facility] Monocytes/100 WBC (Bld) 4.1 % 1.7 - 12.0 % [facility] NEUTROPHILS ABSOLUTE AUTO 5.9 [facility] Neutrophils/100 WBC (Bld) 68.0 % 43.0 - 75.0 % [facility] Platelet mean volume (Bld) [Entitic vol] 9.6 fL 9.5 - 13.5 fL [facility] EO # 0.1 [facility] PLT 400 [facility] RBC 4.55 [facility] WBC 8.7 [facility] CBC without diffon Rbc Mcv (Fl) By Automated Count 87 [facility] Laboratory - Hematology and Cell countson 04-08-2024 Hematocrit (Bld) [Volume fraction] 39.6 % [facility] Hemoglobin (Bld) [Mass/Vol] 13.7 g/dL [facility] No Panel Informationon 04-08 [facility] Rubella IGG immune statuson 04-08-2024 Rubella immune IgG 2.32 [facility] Syphilis Total(Unknown Syphi lis Status)on 04-08-2024 Syphilis Non-Reactive [facility] Type and screenon 04-08-2024 Abo/Rh(D) Positive [facility] HCG ( test) Ql (U)o n 08-30-2024 Interpretation and review of laboratory results Abnormal [facility] Preg Test, Ur Positive [facility] Urinalysis macro (dipstick) panel (U)on 03-27-2024 Bilirubin, UA Negative Negative - 4(70) +++ mg/dL [facility] Blood, UA Negative Negative - 50 Jimy/mcL [facility] Clarity, UA Clear [facility] Color, UA Yellow [facility] Glucose, UA Negative Negative - 1999(110) ++++ mg/dL [facility] Interpretation and review of laboratory results Normal [facility] Ketones, UA Negative Negative - 160(16) ++++ mg/dL [facility] Leukocytes, UA Negative Negative - 500+++ Mychal/mcL [facility] Nitrite, UA Negative Negative - Positive [facility] pH, UA 5.5 5 - 9 [facility] Protein, UA Negative Negative - 1999(20) ++++ mg/dL [facility] Spec Grav, UA 1.025 1 - 1.03 [facility] Urobilinogen, UA 0.2 0.2 - 12 mg/dL [facility] PROGESTERONEon 07-27-2022 Progesterone 26.9 ng/mL Normal [facility] Comment on above: Result Comment: Foll icular phase 0.1 - 0.9 Luteal phase 1.8 - 23.9 Ovulation phase 0.1 - 12.0 First trimester 11.0 - 44.3 Second trimester 25.4 - 83.3 Third trimester 58.7 - 214.0 Postmenopausal 0.0 - 0.1 Performed By: #### P BRETT #### [facility] [address] [place] [address] [address] Ryan Francisco PREG QUANT HCGon 07-12-2022 HCG QUANT <1 Normal [facility] Comment on above: Performed By: #### P REGQNT #### [facility] [address] [place] [address] [address] Ryan Francisco HCG RANGE SEE BELOW Normal [facility] Comment on above: Result Comment: 5-50 0.2-1 WEEK 50-500 1-2 WEEKS 100-5,000 2-3 WEEKS 500-10,000 3-4 WEEKS 1,000-50,000 4-5 WEEKS 10,000-100,000 5-6 WEEKS 15,000-200,000 6-8 WEEKS 10,000-100,000 2-3 MONTHS Performed By: #### P REGQNT #### [facility] [address] [place] [address] Dr. Ryan Francisco XR HYSTEROSALPINGO EXPon XR [...] by: CLEMENTINE DEWEY Date: 2022-07-12 12:34 Normal [facility] PROGESTERONEon 06-29-2022 Progesterone 4.6 ng/mL Normal [facility] Comment on above: Result Comment: Foll icular phase 0.1 - 0.9 Luteal phase 1.8 - 23.9 Ovulation phase 0.1 - 12.0 First trimester 11.0 - 44.3 Second trimester 25.4 - 83.3 Third trimester 58.7 - 214.0 Postmenopausal 0.0 - 0.1 Performed By: #### P BRETT #### [facility] [address] [place] [address] Dr. Ryan Francisco PROGESTERONEon 06-01-2022 Progesterone 18.9 ng/mL Normal [facility] Comment on above: Result Comment: Foll icular phase 0.1 - 0.9 Luteal phase 1.8 - 23.9 Ovulation phase 0.1 - 12.0 First trimester 11.0 - 44.3 Second trimester 25.4 - 83.3 Third trimester 58.7 - 214.0 Postmenopausal 0.0 - 0.1 Performed By: #### P BRETT #### [facility] [address] [place] [address] Dr. Ryan Francisco US PELVIS AND TRANSVAGon [...] by: CLEMENTINE DEWEY Date: 2022-05-17 17:25 Normal [facility] PROGESTERONEon 04-29-2022 Progesterone 5.1 ng/mL Normal [facility] Comment on above: Result Comment: Foll icular phase 0.1 - 0.9 Luteal phase 1.8 - 23.9 Ovulation phase 0.1 - 12.0 First trimester 11.0 - 44.3 Second trimester 25.4 - 83.3 Third trimester 58.7 - 214.0 Postmenopausal 0.0 - 0.1 Performed By: #### P BRETT ####[facility] [id number] [place] [id number][address] Ryan Francisco ANTI-MULLERIAN HORMONEon Anti-Mullerian Hormone (AMH) 6.09 ng/mL Normal [facility] Comment on above: Result Comment: For assays employing antibodies, the possibility exists for interference by heterophile antibodies in the samples.1 1.Steffen Peguero. Interferences in Immunoassays - still a threat. Clin. Chem. 2000; 46: 1608-2423. This test was developed and its performance characteristics determined by [employer]. It has not been cleared or approved by the Food and Drug Administration. Reference Range: Females 20 - 25y: 1.23 - 11.51 Median 4.70 AMH concentrations of >= 1.06 ng/mL is correlated with a better response to ovarian stimulation, produced more retrievable oocytes and higher odds of live according to Larry et al. Fertility and Sterility. 2010: 94:8233-0419. The current AMH test method correlates with [...] By: #### A WEI #### [facility] [address] [place] [address] Dr. Ryan Francisco FSHon 04-05-2022 FSH 3.6 mIU/mL Normal [facility] Comment on above: Result Comment: Adul t Female: Follicular phase 3.5 - 12.5 Ovulation phase 4.7 - 21.5 Luteal phase 1.7 - 7.7 Postmenopausal 25.8 - 134.8 Performed By: #### L [facility] #### [facility] [address] [place] [address] Dr. Ryan Francisco LUTEINIZING HORMONE (LH)on 0 04-05-2022 LH 6.8 mIU/mL Normal [facility] Comment on above: Result Comment: Adul t Female: Follicular phase 2.4 - 12.6 Ovulation phase 14.0 - 95.6 Luteal phase 1.0 - 11.4 Postmenopausal 7.7 - 58.5 Performed By: #### L [facility] ####[facility] [id number] [place] [address]Dr. Ryan Francisco CBC AUTO DIFFon 04-04-2022 BASO # 0.0 103/ul Normal 0.0-0.1 [facility] Comment on above: Performed By: #### C BC #### [facility] [address] [place] [address] Dr. Ryan Francisco Basophils/100 WBC (Bld) 0.3 % Normal 0.2-2.0 [facility] Comment on above: Performed By: #### C BC #### [facility] [address] [place] [address] Dr. Ryan Francisco EO # 0.1 103/ul Normal 0.0-0.7 [facility] Comment on above: Performed By: #### C BC #### [facility] [address] [place] [address] Dr. Ryan Francisco Eosinophils/100 WBC (Bld) 1.7 % Normal 0.9-7.0 [facility] Comment on above: Performed By: #### C BC #### [facility] [address] [place] [address] Dr. yRan Francisco Erythrocyte distribution width (RBC) [Ratio] 12.7 % Normal 11.0-15.0 [facility] Comment on above: Performed By: #### C BC #### [facility] [address] [place] [address] Dr. Ryan Francisco Hematocrit (Bld) [Volume fraction] 39.7 % Normal 36.0-48.0 [facility] Comment on above: Performed By: #### C BC #### [facility] [address] [place] [address] Dr. Ryan Francisco Hemoglobin (Bld) [Mass/Vol] 13.4 g/dL Normal 12.0-16.0 [facility] Comment on above: Performed By: #### C BC #### [facility] [address] [place] [address] Dr. Ryan Francisco IG # 0.03 10e3/ul Normal 0.00-0.03 [facility] Comment on above: Performed By: #### C BC #### [facility] [address] [place] [address] Dr. Ryan Francisco IG % 0.5 % Normal 0.0-0.5 [facility] Comment on above: Performed By: #### C BC #### [facility] [address] [place] [address] Dr. Ryan Francisco LYMPH # 1.6 103/ul Normal 1.2-3.8 [facility] Comment on above: Performed By: #### C BC #### [facility] [address] [place] [address] Dr. Ryan Francisco Lymphocytes/100 WBC (Bld) 27.1 % Normal 20.5-60.0 [facility] Comment on above: Performed By: #### C BC #### [facility] [address] [place] [address] Dr. Ryan Francisco MANUAL DIFF REQ NO Normal [facility] Comment on above: Performed By: #### C BC #### [facility] [address] [place] [address] Dr. Ryan Francisco MCH (RBC) [Entitic mass] 29.6 pg Normal 26.7-34.0 [facility] Comment on above: Performed By: #### C BC #### [facility] [address] [place] [address] Dr. Ryan Francisco MCHC (RBC) [Mass/Vol] 33.8 g/dL Normal 29.9-35.2 [facility] Comment on above: Performed By: #### C BC #### [facility] [address] [place] [address] Dr. Ryan Francisco MCV (RBC) [Entitic vol] 87.6 fL Normal 81.0-99.0 [facility] Comment on above: Performed By: #### C BC #### [facility] [address] [place] [address] Dr. Ryan Francisco MONO # 0.4 103/ul Normal 0.3-0.8 [facility] Comment on above: Performed By: #### C BC #### [facility] [address] [place] [address] Dr. Ryan Francisco Monocytes/100 WBC (Bld) 6.7 % Normal 1.7-12.0 [facility] Comment on above: Performed By: #### C BC #### [facility] [address] [place] [address] Dr. Ryan Francisco NEUT # 3.7 103/ul Normal 1.4-6.5 [facility] Comment on above: Performed By: #### C BC #### [facility] [address] [place] [address] Dr. Ryan Francisco Neutrophils/100 WBC (Bld) 63.7 % Normal 43.0-75.0 [facility] Comment on above: Performed By: #### C BC #### [facility] [address] [place] [address] Dr. Ryan Francisco Platelet mean volume (Bld) [Entitic vol] 9.9 fL Normal 9.5-13.5 [facility] Comment on above: Performed By: #### C BC #### [facility] [address] [address] [address] Ryan Francisco PLT 421 103/ul Normal 150-450 [facility] Comment on above: Performed By: #### C BC #### [facility] [id number] Ryan Francisco RBC 4.53 106/ul Normal 4.20-5.40 [facility] Comment on above: Performed By: #### C BC #### [facility] [id number] Ryan Francisco WBC 5.8 103/ul Normal 4.0-11.0 [facility] Comment on above: Performed By: #### C BC #### [facility] [address] [address] [address] Ryan Francisco FREE T4on 04-04-2022 Free T4 [Mass/Vol] 0.99 ng/dL Normal 0.76-1.46 [facility] Comment on above: Performed By: #### F T4 #### [facility] [address] [place], [place] [id number] Dr. Ryan Francisco TSHon 04-04-2022 TSH 3.086 uIU/mL Normal 0.358-3.740 [facility] Comment on above: Performed By: #### T SH ####[facility] [address]Dr[address] Ryan Francisco US PELVIS AND TRANSVAGon US [...] by: LUCHO MIXON Date: 2022-04-04 16:38 Normal [facility] Auth for Release of Medical Recordson 12-20-2021 Auth for Release of Medical Records [id number]# 1.00CD:127 Normal [facility] Coding Summary.on 08-22-2021 Coding Summary. CD:[id number] Gh0bWw+PGhlYWQ+PE1FV GVeO86qzIZogU7UW5nOB N8KOTCCHAJRWR3PSY9qp EF7PYjtO2XdppFc OxkzeDShIA14XDm8UQF4 qKitHMyrgK5ceNLqS3s3 OcIqTI44qT84VSegSTQx XtS6BiFyrnejmGSq L2uzGvJglTNtYta+PHRh YmxlIHdpZHRoPScxMDAl TxBytJjdHU2zCn8kOHMv LWNvbGxhcHNlOiBj q9uzMJUbOCqlIW2upLbi A1BpyUR5FPFqs3x2Ko73 dHI+PYYaCRD6gArgXHwt i105YhRek6gyXIM4 dRIkUVbyZTG1L78tp1I6 DJCdCCYoNJZ9zVM9gE6o wSbmohzqT6QjfIVfUhS3 JTK7wPMssZ7wsWaz cqgyyU7bQap+V28UJU6W DXPZSC4VIzq6A8RiQbbm dHI+UX00DLNtRF36cDEb gYRmb1swtDb7UbCs YRPtNMM1rHfgAWqsn5Lk KLEqL74wyUIvf6O3UCWw mFitsTYsQsJqaUL5dP9d HBglkmprd2ugfeae Nhyim9lhpn51aG78T87p UZegSOWiMIG0FJFyJYNe zVsmef6sxO5kYq6+IDxj l3nqr2togNb8ZaHe NXAxyaWblFsrCXF3e4Mt Ao16Q7OntOvqb3TyQbq6 jz08xVPjv8H6yCB1WTzt YKPjbW5tURedOxZ2 WPVgBsIhvV01mNOwHDul Iz8lpUevpLumPF6iBEIh ogjdQGPfoO7pRNGwxPVz oYlySB1rEFHzmleb l385CaUqLAQ5XBOviFOv F4VizN0aVoWkCZVvUKRt W0ItiGMxUXkeW169MNmk VlS3VCGoatPeO2Fg PHKtdZrcMtV8l2Z1Yz5Y a8BlmhlgPCH6STxsHZOf YiU4KwKvCgL0R7GtQtn8 XHRjfGzbFM9aO0Jy IGUdbzszzcbraJN2ZPVm OLRtzT11lLQkHJcoOh9x p3Z3n807VHEpKEKuvC86 Nj2wrYitEONupSPK mN9xjzprz4cuxyyfNqGb STRqKUs9AQi0GRAxsThw XiAyRVY2VzZ2BOT0pMXl aH7gfZzuintdhX0g Oyc+P39gvC0bJVJ6XUN0 pakbJXEitwYaCA79SS34 G8WtIgvvgSUkxPK+PGRp bsNlqVsyOY5bHyRz j9vgc4YsRGpoP6MyDPTa KIsoTls1ZJEzGQA8iKD1 oY6vMKDlNSxuj9R6mSI2 X5AzwxAmms6sv3lv TWJwZUrmR41fsLJhe7H3 DPWasNU7IQPbqTrfOtUk aI21Ljg+XKLkcEpsd9Tv Ibljm3pet5yfhGt1 IjMwJSIgdmFsaWduPSJ0 t1VeWr13K20lQQbkVZBr KGOgEIOnVOKxfOgkac5z sF4gUt0+PGNvbCB3 qWK5mF6oPTUbWrT4LIzu F101RqVpiRLhAfbnl9dk x0dzwDj0NpViETOyhmSc gXroISV0v8ZyMw80 A90rBOvvYOCiPQZxSLHc QBCfzGzdug3isX6cQr7+ UD9aw4vbig94rE69lAB+ ESXqHOJ0gWnzGBdu UGVzeC0lGDbyBbB3GQEz TpAgvA22wULeGMbwOe6b eTparIfsDY0hYFMfyuis q071SvYni2omQDBl bHRtPHyyGHH2D36vu3L4 DWWoNEZoZIS8oFX2mJ7r bGlnbjogbGVmdDsgdmVy aTvrSHzsVPllP482 IHRvcDsnPlBhdGllbnQg EgQcXKe4B7SjGgj2DQWl lCnyVP1hvHAcRXfyWr8j tAyjjPbfKV2hCCOr aqdsm267VlKki1uuAIPf fQKmGMigTIG1O23jh7A3 SNNtZFEsLGM1fCB0qQ0q bGlnbjogbGVmdDsg bxPyaNjcPLibWSlxV152 IHRvcDsnPkJpcnRoIERh oRB9MM63FD79qTEys8H2 pQI0S8BsPAYqbpyc foyjyQA8GETfXMRmrS86 Yb0mdDhbXg3sIQAlIUK6 LZYtsQTcZ7UznF1tXnBn YOMtYYDdZ9ZrwZQr DXpjS106XYydLjY4PDQz gtYaS4JuVKPnhRpiJuA2 o0F9Cg1VW0G9AC13PE11 vPGta4V4eCN3X2Nq EEDgxbygsnzeaPX3EZWo IWVvxB45Fr8ayZewBu2o ZJJvBGV5IVWvuZIyL5Mr wL3sKqFpUKEbYZKj Y8HfgROkWZdkO717IYsi EeR8TVMewxLyS3FiNIKb pWzqYpS1i5D5Ye9JMTt3 ZB34YQ38bANks0J2 pYL3X2KyWLSiqvyoszoa sYT7WVBqZNOraP71Ts8x mIqrIh2oDOCjRRL0IROn cKDdL5OmyV5mDuMu DDZmOMCmF7QrxSBhOEmd V238MHwsXxY6PBUwfeNo Y0MqJHRqdClqPaC4d3U9 Qc5PKHNtXO14XUL3 yGF3KA18OL04U8FrDhhc dGFibGU+PHRhYmxlIHdp ZHRoPScxMDAlJyBzdHls PY0fTi8aUXMeHQBw zVnfqWLhAhKrh9fhWREm FMilVX6ugTngC7GaaMH4 JLNjw5g6Jl32R09xY6Wm dXA+ADEhcYA7iJB7 kZ9hRtXsWiK3HPztP008 CwXleSVcZjxaz1oku0rr bHe0XjQ9PQMbxdGhiSix DEM5f7YsJw46Z41d IHdpZHRoPSIxNSUiIHZh wMnwsb5npS1sSd5+PGNv eML0oNA6jN8xCyWuJsM8 WLjuN594HlCzjLIz Uqisw5pgn4jsfIn3PfZr SABhtbIvwCerFDK1s0Us Fl11G8DglTeid2DfDfb2 mn05mKMrl6B8tLZ9 R0RqHYFdhqmklZDbqRan XJ2oDYJijbwnMWRebK0n DHAwI9d0EaCqNcY6UNxy G6XqjuH7EOJbuJKh FYtdBVI5T73bp1A9ACKk UVBeVSK9dQW6yR0nxZrj bjogbGVmdDsgdmVydGlj YBfjLWmqH979AKUc yZwmNARspX9eQPFzbGOd tJybDL9kUGIwjayqJcwG OJVcGCcJGNEOKE42UZ16 sBEhf2W0gIR5N9Rp DIXcqiweinaflCP1NNSt RRIzyC69fMAsTOnqPw5e l5J7n457GCLvOPIvcX36 Ff9bsWlyHSIzcNXH qR2rzpeip9qkqwtkMxDz MXTqBRs5WUi2ZQNqgKpd NeXcVTL2HrP1FVJ7zZXy nY4xwNcsrtgvqJ2j Oyc+VXCkYkytJDl9ARrq dGQ+UIMnRBB3qIeoUGno AEUheJ5eMTMhP9j3SvRm DfZ9RYymD0NwBNCz resqCf42zP2xPkYfDpW5 OWpzB5ZvmiS9ZTZdpQLd RAucCQQ1T84bc4H3WKGe YVEeVRH1nFK1eJ7h bGlnbjogbGVmdDsgdmVy dOduYZuyMBeaC170ZYAz bIezZvRqSXlkTQSbYL26 GM83wZXdp8C9xVO2 J8FcULUwnsmjcmhwzVS8 DUBrEMTmjK95qHJpAYxi Fw4vh0M9j230NQXlYXHy vG47Gi7nsJlhUBKt fNPWgC1dfgcdt9vzrrcp FkFpUPBoGVh7UDs1YWQt eNayKvJjAHI1QzW3EYT3 iVJrmK9dfUtbwakm aJ6sRed+CnFhTRnzRD44 KD69qYZjt7T4lSN4L2Qu YZHvxauwewvtqSC7URJf QEWjvI73qZFoIEgb Ns5eu7P8z975RWGlRDNt bP64Eo5xpSojXWPvcICG nM1oiobrd9gvtghkVkNm DTBpCYs8SJq3HTDo fVumYiViAGA3XuL8FBR6 yCXebW7kwKroljvsiL8a Oyc+H7O9dBT6jKKjgXyx dGQ+SG01ku18G1Nd GwzaEpx2WENuDSS8fRF0 oD5eQADjEZasd6F7iVU7 D0FrysBwxw9br4aiSVNj FBebD62qgVNua7E3 RKHwtWV3VOWkgQzpVjWy dA55Hdl+SQZayCwpf2Vu Nalim5kys4xweMh8CdRt JSIgdmFsaWduPSJ0 g1GiGg35D59jQVqtWXJd RIFpHUHsMWRetVbwuw2e rO0iMn8+AJEonEZ6kSH9 zF4kDmPrLuS5FCzj A574IhSakSBdKbqeh2ts p2yofNz4SyRxCVGpymXr zQgpXLB3i4DqSd68N6Ov fCarb3KvWmx5ui74 hIHhj2W0gLP1M4YsVIDw pnqwnUJmhSiaMT5vEJBx rjklRSIryF4mSFImJ4g5 FwAjFvI5KKjnQ3Ye vdM0GSWzmFVxGLCnxRPI wT8kjsirx3fxcrjvHdNz ETDqKEd3ZSc0KJDkvWwl YqIzCCW4GfG4BYL3 aYBhkK9zhVfqudhabK2a Oyc+CQy0d4xueWUeSJ6j qQN5LQ34XW20wITkf1G2 eQC3O0EmYYDpeuie cblipUO4BFAsJRXoeC57 Ze2reJvmNy2cWTKmEUR1 UEJhnHKnI1RywU2xSxCd YYMrGLKoB9EjwAGm LDjgB062JMkvLkI5GURb jfDwH8TtHREdgAgjCiO4 f6I5Wy8KYF00VB70IO55 yNTll6D0yOL2P0Ri WZMmmoeywglooUJ2IPAg OIDzeX16Js2cdQdaFm7h QYUkJMP7NVOavQGpV6La sJ5aXvVvEPWwDCSa N4JbgNXaQPvrK176LVyg UtY4MVCxvhFvS9UdCXBw xHoqMbK0v8N8Fx0CYx31 TA58RI59rBUor0H4 xGV3S8BhZAJzdmdegpmu xTH8NNRtCZFbrS90Jy2l zNixKz2fXQGpLVK5OHKb nKWbA3SwjB6kPvJy WJAgEGKdD5WizKTpSDtl C605EYvdGgZ7ZUQospIq I9KyFKJdoHapSgP8l1J0 Mo1IPUjcubd2L1Wb PjwvdHI+VM19HYXiVS42 dFZqvFItm5jyhVy2ViCj NERaYXQ0wWehRNjnj9Nr LKXfR60nqCNnz2T2 IGNv (more content not included)... Normal [facility] Coding Summary. CD:[id number] Gh0bWw+PGhlYWQ+PE1FV YEtR87tuEDrlX9BF3qKM S2BTKVMJINXHK8CAY5dc CA6HIroN4EdukCa WxqavCZuAE56RZq5KNE0 kHkqCNuceH0qfKNzT9w2 GiRoMB02dR72YThvNBEp XnO9XzOxqmdupFVe E4txEhQbwQQcQem+PHRh YmxlIHdpZHRoPScxMDAl EyDkxKdzWB5iPu5cYBDh LWNvbGxhcHNlOiBj l6ivMQZoEWiqLM1hfNwn I4ErxZJ1WXIbe7d5Aq23 dHI+THTuTDX3bFwzFQlk a985UhQyb5zuAVQ5 aKIsIMprHLZ9M67nj2U0 NAQdEGLiEQF3tZG8bA0x dTpozegtI6KdvKTjUgI9 YFU4dDCdyA9dwQyo xagnbQ5lAim+J22OUG7L VQFALK6JYln3M2DeLamt dHI+AL08UVAzJK70gEBn mRBhz1lgvGo2ZtCt UEFbRKC4aFtwLYkan9Qr FMOyV35iuTPfe0T3RBYo hEtooBUqDiMpmLW5iD0l UAsurzcvb4qrwmsk Csfgs8hssn19iF86T85r KXqhWZDuHHL0XTVbCRLa mNpexi2iuY0kHm0+IDxj j0oqn3dnzUo4NfWc HYKdqtJxeXyrQAP0x4Ty Ow04D9HtkEbze2CxDee2 vl07lNVyn7R0zBI7YKhp MQNlcP1lMXuhRbE2 KPLbAcYadA05cUQhMNht Ba0jzTzibJhjBH5aYZJj qzvnZVXyaO7wPRMfxOXz bNgtVL2mRHPuhheu k178PzEpFYV4IIIhvFPr X2EgyZ4pDrVaQEHkCYDh B7GjwXFbVPsxZ539JBow ZlY7YABfmsBgX5Sk OMKtcCgrNcI8f4M6Bt9H h5VtocjeZDV6ZTxxXPBc RoL4IsTaGhO8H9QaIil1 ZPTyhCibOV0dG2Mn WFMgjyuitinfyBT1VWCv NJUvhI87bGPoTCjxPs2e e7S0r523YQSaJUXjqT98 Oq8pqChcNZSlfYMD mG0tjqhht2vlvzawOmMx HCCxEJp6XBk0BZDevAjq SuKrOXC5AeQ9TVV0nJPo fH6gbYovrlsioG9f Oyc+L96slB1hOML2WLT7 siwvUSBfliYwPC31CO89 Q7ImXfxhaJYjoSS+PGRp uvRrsLzfJH0pTnGx d8onr0OoWNxzH0DxDIEz TWxqVfw3HVJvJGD1oNB4 vA1qLTNkWVmii7K4qXC2 Q1HssvKutd4iq9sr DMUzISneB74ewCScu1H8 BZKoaHQ2MCKzlWwaHcTh dY44Zkh+YLYquGhaq6Vk Twgtu0kxc5swpHy0 IjMwJSIgdmFsaWduPSJ0 r1DlFf21K46kWFgfKAQs UDUvUWHlYHSfvGasny2x eL3yHo1+PGNvbCB3 mOM0yD3xNZEkEuV8JEod K736QiIgjXMjUjtjf6sv z9wahWu8CqGfCNRcyhYs qYjkNSZ2v7AcRk24 Y26uTKqyIVOmOOVeDBPk WZJynYqdde1okP8aTj6+ SS2ir3nutp86iQ52dGK+ VPRlJAD5uEpcLYcl JXKqhQ7vQNtbOxA4DFZn BkUyzD12rWJdQXrrVj4s wFejiQuiRP4bVWVqtpcf l017PkRqp1dfVNAb zDVkLUfnOTY8T03zl4W5 LILcVSFiVFD5gEQ5zF0l bGlnbjogbGVmdDsgdmVy qNigGPqfZLikR669 IHRvcDsnPlBhdGllbnQg EsDpCDm0R5VxUko7YMOy jNjpYR3fhHWnRIqqSa6l fPkoyXtuXT5rBPOo rmjkn430RrUtp8eaIXHi mQPrKPfyDMM4E07gy9Y0 ZHPwPVBjGLS5oSU2bB6x bGlnbjogbGVmdDsg ojNhkGbzLGazOWzzZ376 IHRvcDsnPkJpcnRoIERh yTR8WI99MF64dRHny5S1 wFF6Y7AvBOMqbkcs bhtvfDN8REZePBKlxF08 Fd2zqWbuWp3oMERuJPC0 PPWbxJTaI9DluX5fOmBv ULLuBKDxP7VcsGDu MZrhD359CXiyDvA5LWSd ldElZ6ThBXNsiQugUkS3 y0C4Xo1SF6E2JM39AJ80 lEOiz6Q9vZF5X7Zl XSEohbbxzlhadZP8QXTw QIZkwQ88Yf1chGhzUn6h LDSoNEA1FZAxiXYmI9Hy oP1lNxGaEZZqAXNn K5MoiFNqETznM158YFlk DsL3CVNqzlBwO7EwROUa aUwdZeC1i8P9Dt3LCFz4 WB94PL27mWVtp6T0 oIY4R9ItXCYzmhvamgeq rLT0UTIfINHnxJ30Ru1q pLenGg6xGNMdWDE7RMQp eXYvS3KvxF2xPtEb ELCuKDWuU8PwnQRzNEvu S122CWdwUxP4ZVPgzkZu E7GkOWZakJdwIvG3a5V9 Fa1ULJOsNO41EGT0 zGT7IS67HU70R2EeVqog dGFibGU+PHRhYmxlIHdp ZHRoPScxMDAlJyBzdHls EO0aZz0sWVPtLYZy mLawtBZtLpDnt1rrLNRg YAapLU7nkRmuN3XtzXF6 CZOoj5u7Gd01T80rC0Iq dXA+HOMorXB1yQE6 cZ0fJhAxRmX0SOfuO194 VgKsgLAxOwvar5hxq8ct uPi8NaK2UCPxinSygPla DCC9x3ZxDg54Z19z IHdpZHRoPSIxNSUiIHZh uTmxpy1bdI4fGr2+PGNv yTK4wGT9iO0aYjPxZeY8 RNrhW581UyLadPOh Xfldz9byz4ospAl6MfJb FGPqbfVkiIhqQAS3k3Hc Hq71O6WhoUmzc6YfHim8 xk94tUEvr1K3oEJ2 J2JaVQKauszgjUHlrIti CR5uWUQzibgjSOYjkI5v PDKeF7v0BaGdSgK2AEmz V5CwasJ0AJSedNNe VZevJER2I64fa1Q4JGFm RKVkJCY2xVM3wV3ylTjs bjogbGVmdDsgdmVydGlj KRqzAAciC730ZJHb jXxuELTyhV9lFQGehGIm aTjkDY4oWNHshldmAtrC RAVrQVzRDYIBTC95TK23 sGXol2P1fAH5N9Ja CMWxzwbdxmfafUN0YOWl ASFbjM86rWTsSKeiWw0f l7O5f730KTGgBLJleC08 Gs2kvLlnSGZymIFG uZ3fjqihj4deznudBlSg CVZrGLi4CHt1YNXpzMgi UxNaKIS2VvA2LZY3mPFi lC8faApvazxenH5x Oyc+NXXpYmlqQRy9NRej dGQ+OWXvAUF1dVtxDGfg XXZcpR0vAHBjW7v3LlDy UjV6WBhbM7LrNYGw bkbfZi57tP1lYgJeErR5 WSdmA6ZrtvE6VXDcsACe HJjvFQF7G44ke2Q8AUNb CDQoQUV3sNK4pJ4r bGlnbjogbGVmdDsgdmVy iGxqPRizAKbpN176VWLm pRhyLtNaBWomTOSzJQ21 DZ95dKYbq3M5cDP4 N4UrNSBxvwvzbamdaLE4 MDIwRCKvlW58yYSsIUjf Wu7de9O9w802RUCaXHRp lK82Vy8amEgiHNVm lABHwR4tzobnh9wtkwld MfJfMAKtZQe8RAm1DQFv qElgSjHuDJH4GnD0YKT4 sIZvsV9sgCoprnaz cB3xYos+LaFnCRncQJ23 AG77iKKnf3C1hQZ2I7Dw BVCgyqmubmtuyMZ9DLOu JWYazY71xGQgSYjb Dl7oi8Y8k723NYCcQLVu dG85Ox0ctMxpQAObsLFW sH9gzkyfj6uxbiurEeTs GGSfQCw7PCc2KSHc qZpdVxJpLPB5OwX5CHI5 dMFhmC1dvHcbtoemhG4l Oyc+XRQcZGJqb1Crq8Yc ID05GM94S9TwLzqw dGFibGU+PHRhYmxlIHdp ZHRoPScxMDAlJyBzdHls JY9mTl5yQKHkVXZscHkq eYQfFwCzk3crSFMw ODbfGK4shWnlA6LcpXM0 ZJHek4p8Pm26U87nG0Py dXA+XCEpqQM0uFW8wQ5k PpWxLpJ0TDenP361 RjQlmVXeBgybr6hzv1rl tXm7ImAxPXLsvcEtkFdr TGP9s2LjIi89H15fEVve ZHRoPSIyMCUiIHZh nOefme2fzO8hIs8+PGNv mFY3kYA5hC8pMkLwHtR0 KZvbD268MgGsvXZtKmsb C21zH4QtjMS+PHRy Ymo0IEBxyPoiBG7ekFXu YCbfGt2iLBF8RgYzPeWs SKjkW9LgCYMynwbubyjr lTD5KHAnEWNokF50 Ki2qdLlkJm4kVFWuTMW1 WQDuxRYhK7TrtA2fWmSc FMMyAZAuW0EkbWAbBTlr E366BAfsSnU8USXx fiErH0FcKVDtjAeiNgV5 s1D6Xz0HiTurlANyYH4c OzRsMCk6P2JrGzf1AASt mQblUX8jnWFaZXvu Hk9vlLlpvMooFU8nRNAp cvszo007AdKvl3nsBBQy hBGzNOvaAHL0J92xn2V1 TTHqKAYrNJI9mBR0 wG1dsNtwrotqmSAeaSnu baFkrZzzMIziWGhgX706 BCPlzGgdAsPLAhw4C8Ss Zhs2QRJlxKrzUN8v cFRkDQrwIh8ehVdiyDjw ET1tZOXgtkqho950YlHs o2mhBQUsgHDeJFnhILG0 P60un9U0SQMhPZVe CTM4dBA8pI9otExdqusu bGVmdDsgdmVydGljYWwt FLypU588TCZrvEbbSk4O Voo3P0IcFat3TYFl jIqkMK0wwKGqXOixDs2f nWmysEarUE1tTVEmsfyh h379RoMho5jlVDXtjRTx XBqnPFM0V16cn9Y2 CCZzZUPzFOP8hPG8bD5n bGlnbjogbGVmdDsgdmVy xDmtUFmeYQmvD184UFRx cDsnPlBheWVyOjwv dGQ+DK91us59P8CyUcvh Ymn7GIKxEQE7mNB6mO0d ZNNjTVsta5B3wTM9U1Pn ilXpuw8pl6roWAPj ZTog (more content not included)... Normal [facility] PAP [id number] 08-15-2021 Cytology report Cyto stain Doc (Cvx/Vag) Note Invalid Interpretation Code [facility] Comment on above: Result Comment: TEST S RESULT FLAG UNITS REF RANGE LAB Clinician Provided Cytology Information Source.............Endocervix No. of containers..01 ThinPrep Vial DIAGNOSIS: 01 NEGATIVE FOR INTRAEPITHELIAL LESION OR MALIGNANCY. Specimen adequacy: 01 Satisfactory for evaluation. No endocervical component is identified. Performed by: 01 Sujey Engle Brace[employer] Bro[employer] Maker (ASC) . 01 Note: Note 01 The Pap [...] <-Panic Low,>-Panic High,A-Abnormal,AA-Critical Abnormal Performed at: 01 [facility] [employer] [facility] [address] Mar Rivera MD, Performed By: #### 1 [id number] #### [facility] [address] [place] [address] HPV 16+18+31+33+35+39+45 +51+52+56+58+59+66+6 8 DNA Probe+sig amp Ql (Cvx) Negative Invalid Interpretation Code Negative [facility] Comment on above: Result Comment: This nucleic acid amplification test detects fourteen high-risk HPV types (16,18,31,33,35,39,45,51,52,56,58,59,66,68) without differentiation. Performed at: [email or web address] [place] [id number] MD Nicole Manuel Performed at: =[facility] [address] [place], [place] [id number] MD Nicole Manuel Performed By: #### 1 [id number] #### [facility] [address] [place] [address] Insulin Lvlon 08-11-2021 Insulin Qn 24.3 u[IU]/mL Invalid Interpretation Code 2.6-24.9 [facility] Comment on above: Result Comment: Perf ormed at: [facility] [address] [id number] PhD Archie Jha Performed By: #### 1 [id number] #### [facility] [address] [place] [address] Consent for Treatmenton 07-29 Consent for Treatment [id number] #1.00CD:127 Normal [facility] Glu Fastingon 08-10-2021 Glucose [Mass/Vol] 95 mg/dL Normal 55-99 [facility] Comment on above: Performed By: #### 1 [id number] #### [facility] [address] [place] [address] Physician Orderon 08-10-2021 Physician Order [id number] 2#1.00CD:127 Normal [facility] PAP [id number] 08-09-2021 Collection Technique BRUSH-SPATULA Normal [facility] Comment on above: Performed By: #### 1 [id number] #### [facility] [address] [place] [address] Gynecological Body Site ENDOCERVIX Normal [facility] Comment on above: Performed By: #### 1 [id number] #### [facility] [address] [place] [address] Physician Orderon 08-09-2021 Physician Order [id number] #1.00CD:127 Normal [facility] Gynecology Office/Clinic Not pratik 02-17-2019 Gynecology [...] Family history is negative Normal [facility] Comment on above: Result Comment: Elec tronically [...] Family history is negative Normal [facility] Comment on above: Result Comment: Elec tronically Signed By: Shamika ISAACS, Kaley Wilson\.david\Date and Time Signed: 02/17/19 12:09 EDT Vital Signs Date Time Vital Sign Value Performing Clinician Facility 08-27-2024 11:45-0500 Body mass index (BMI) [Ratio] 35.08 kg/m2 Immanuel Yobani DO Work Phone: [facility] 08-27-2024 11:45-0500 Body weight 87 kg Immanuel Yobani DO Work Phone: [facility] 08-27-2024 11:45-0500 Diastolic blood pressure 82 mm[Hg] Immanuel Yobani DO Work Phone: [facility] 08-27-2024 11:45-0500 Systolic blood pressure 122 mm[Hg] Immanuel Yobani DO Work Phone: [facility] 08-12-2024 11:08-0500 Body mass index (BMI) [Ratio] 34.93 kg/m2 Immanuel Yobani DO Work Phone: [facility] 08-12-2024 11:08-0500 Body weight 86.64 kg Immanuel Yobani DO Work Phone: [facility] 08-12-2024 11:08-0500 Diastolic blood pressure 80 mm[Hg] Immanuel Yobani DO Work Phone: [facility] 08-12-2024 11:08-0500 Systolic blood pressure 120 mm[Hg] Immanuel Yobani DO Work Phone: [facility] 07-20-2024 11:00-0500 Body mass index (BMI) [Ratio] 34.39 kg/m2 Immanuel Yobani DO Work Phone: [facility] 07-20-2024 11:00-0500 Body weight 85.28 kg Immanuel Yobani DO Work Phone: [facility] 07-20-2024 11:00-0500 Diastolic blood pressure 76 mm[Hg] Immanuel Yobani DO Work Phone: [facility] 07-20-2024 11:00-0500 Systolic blood pressure 122 mm[Hg] Immanuel Yobani DO Work Phone: [facility] 06-22-2024 14:31-0500 Body mass index (BMI) [Ratio] 34.2 kg/m2 Immanuel Yobani DO Work Phone: [facility] 06-22-2024 14:31-0500 Body weight 84.82 kg Immanuel Yobani DO Work Phone: [facility] 06-22-2024 14:31-0500 Diastolic blood pressure 78 mm[Hg] Immanuel Yobani DO Work Phone: [facility] 06-22-2024 14:31-0500 Systolic blood pressure 124 mm[Hg] Immanuel Yobani DO Work Phone: [facility] 06-15-2024 10:27-0500 Body weight 84.82 kg Cele Rodriguez MD Work Phone: [facility] 06-15-2024 10:27-0500 Diastolic blood pressure 88 mm[Hg] Cele Rodriguez MD Work Phone: [facility] 06-15-2024 10:27-0500 Heart rate 99 /min Cele Rodriguez MD Work Phone: [facility] 06-15-2024 10:27-0500 Respiratory rate 18 /min Cele Rodriguez MD Work Phone: [facility] 06-15-2024 10:27-0500 Systolic blood pressure 137 mm[Hg] Cele Rodriguez MD Work Phone: [facility] 05-25-2024 11:46-0400 Body mass index (BMI) [Ratio] 33.84 kg/m2 Immanuel Yobani DO Work Phone: [facility] 05-25-2024 11:46-0400 Body weight 83.92 kg Immanuel Yobani DO Work Phone: [facility] 05-25-2024 11:46-0400 Diastolic blood pressure 74 mm[Hg] Immanuel Yobani DO Work Phone: [facility] 05-25-2024 11:46-0400 Systolic blood pressure 118 mm[Hg] Immanuel Yobani DO Work Phone: [facility] 04-27-2024 10:35-0400 Body mass index (BMI) [Ratio] 33.75 kg/m2 Immanuel Yobani DO Work Phone: [facility] 04-27-2024 10:35-0400 Body weight 83.69 kg Immanuel Yobani DO Work Phone: [facility] 04-27-2024 10:35-0400 Diastolic blood pressure 76 mm[Hg] Immanuel Yobani DO Work Phone: [facility] 04-27-2024 10:35-0400 Systolic blood pressure 122 mm[Hg] Immanuel Yobani DO Work Phone: [facility] 03-27-2024 10:27-0400 Body mass index (BMI) [Ratio] 34.53 kg/m2 [facility] 03-27-2024 10:27-0400 Body weight 85.64 kg [facility] 03-27-2024 10:27-0400 Diastolic blood pressure 70 mm[Hg] [facility] 03-27-2024 10:27-0400 Systolic blood pressure 120 mm[Hg] [facility] 01-02-2024 09:15-0400 Body height 157.48 cm [facility] 01-02-2024 09:15-0400 Body mass index (BMI) [Ratio] 33.9 kg/m2 [facility] 01-02-2024 09:15-0400 Body temperature 100.2 [degF] [facility] 01-02-2024 09:15-0400 Body weight 84.08 kg [facility] 01-02-2024 09:15-0400 Heart rate 115 /min [facility] 01-02-2024 09:15-0400 Respiratory rate 18 /min [facility] 01-02-2024 09:15-0400 SaO2% (BldA) [Mass fraction] 99 % [facility] Encounters Encounter Date Encounter Type Care Provider Facility Start: 09-08-2024 End: 09-08-2024 Bamboo flowsheet Immanuel Yobani DO Work Phone: [facility] Start: 09-08-2024 End: 09-08-2024 Bamboo flowsheet Immanuel Yobani DO Work Phone: [facility] Start: 09-02-2024 End: 09-02-2024 Clinisync Result Encounter [...] Bamboo flowsheet Immanuel Yobani DO Work Phone: [facility] Start: 06-22-2024 End: 06-22-2024 Bamboo [...] Cele Rodriguez MD Work Phone: [facility] [place] Comment on above: 21 weeks gestation o f (Primary Dx); Chronic hypertension affecting ; In vitro fertilization Start: 06-15-2024 End: 06-15-2024 ambulatory PIEDAD Johnathon RODRIGUEZ [facility] Start: 05-28-2024 End: 05-30-2024 Clinisync [...] 10w1d Start: 03-27-2024 End: 03-27-2024 ambulatory IMMANUEL YOBANI Not Available Start: 01-02-2024 End: 01-02-2024 ambulatory JOHNNY FERNANDEZ Not Available Start: 01-02-2024 End: 01-02-2024 ambulatory [facility] Work Phone: Start: 01-02-2024 End: 01-02-2024 Patient encounter procedure [facility] Work Phone: Start: 11-27-2023 End: 11-27-2023 ambulatory IMMANUEL YOBANI Not Available Start: 07-26-2022 End: 07-27-[address] IMMANUEL HILTON . Facility:[facility] Start: 07-12-2022 End: 07-12-[address] IMMANUEL HILTON . Facility:[facility] Start: 06-28-2022 End: 06-29-[address] IMMANUEL HILTON . Facility:[facility] Start: 05-31-2022 End: 06-27-[address] IMMANUEL [...] malign ant neoplasm of cervix Pap Smear [facility] Start: 06-15-2025 Tobacco Screening Tobacco Screening [facility] Start: 09-08-2024 End: 09-08-2024 Patient encounter procedure [facility] Comment on above: Arrived Start: 08-27-2024 End: 08-27-2024 Patient encounter procedure 08/27/2024 11:40 AM EST Routine [facility] [address] [place] [address] Immanuel Hilton, DO [address] [place] [address] [facility] Start: 08-27-2024 End: 08-27-2024 Professional / ancillary services management 08/27/2024 11:00 AM EST Ancillary Procedure [facility] [address] [place] [address] [facility] Start: 08-12-2024 End: [...] mellitus screening Expected: 07/20/2024 (Approximate), Expires: 07/20/2025 [facility] Work Phone: Comment on above: Expected: 07/20/2024 (Approximate), Expires: 07/20/2025 Start: 07-20-2024 End: 07-20-2025 Measurement of glucose 1 hour after glucose challenge for glucose tolerance test Glucose tolerance, 1 hour Lab Routine 26 weeks gestation of Diabetes mellitus screening Expected: 07/20/2024 (Approximate), Expires: 07/20/2025 [facility] Comment on above: Expected: 07/20/2024 (Approximate), Expires: 07/20/2025 Start: 07-20-2024 End: 07-20-2025 US for US OB SCAN FOR GROWTH Imaging Routine PCOS (polycystic ovarian syndrome) resulting from in vitro fertilization, antepartum Expected: 07/20/2024 (Approximate), Expires: 07/20/2025 [facility] Comment on above: Expected: 07/20/2024 (Approximate), Expires: 07/20/2025 Start: 07-20-2024 End: 07-20-2024 Patient encounter procedure [facility] Comment on above: 26 weeks gestation o f ; Diabetes mellitus screening Start: 06-22-2024 End: 06-22-2025 ECG 12 lead ECG 12 lead ECG Routine Personal history of cardiac murmur Expected: 06/22/2024 (Approximate), Expires: 06/22/2025 [facility] Work Phone: Comment on above: Expected: 06/22/2024 (Approximate), Expires: 06/22/2025 Start: 06-22-2024 End: 06-22-2024 Patient encounter procedure [facility] Comment on above: Arrived Start: 06-15-2024 End: 06-15-2024 Patient encounter procedure [facility] [place] Start: 05-25-2024 End: 11-23-2024 Alpha fetoprotein, maternal Alpha fetoprotein, maternal Lab Routine Second trimester Expected: 05/25/2024 (Approximate), Expires: 11/23/2024 [facility] Comment on above: Expected: 05/25/2024 (Approximate), Expires: 11/23/2024 Start: 05-25-2024 End: 05-25-2024 Patient encounter procedure [facility] Comment on above: Arrived Start: 05-05-2024 End: 05-05-2024 Professional / ancillary services management 05/05/2024 2:30 PM EDT Ancillary Procedure [facility] [address] [place] [id number] [facility] Start: 04-27-2024 End: 04-27-2025 US Pelvis transvaginal US OB transvaginal Imaging Routine Encounter for screening for cervical length Expected: 04/27/2024 (Approximate), Expires: 04/27/2025 [facility] Work Phone: Comment on above: Expected: 04/27/2024 (Approximate), Expires: 04/27/2025 Start: 04-27-2024 End: 04-27-2024 Patient encounter procedure 04/27/2024 10:20 AM EDT Routine [facility] [address] [place] [id number] Immanuel Hilton, DO [address] [place] [address] [facility] Start: 03-29-2024 COVID-19 Vaccine ( season) COVID-19 Vaccine ( season) [facility] Start: 03-29-2024 Influenza vaccination N [facility] Start: 03-27-2024 End: 03-27-2025 ABO/Rh ABO/Rh Lab Routine Missed menses Expected: 03/27/2024 (Approximate), Expires: 03/27/2025 [facility] Comment on above: Expected: 03/27/2024 (Approximate), Expires: 03/27/2025 Start: 03-27-2024 End: 03-27-2025 Blood type and Indirect antibody screen panel - Blood Type and screen Lab Routine Missed menses Expected: 03/27/2024 (Approximate), Expires: 03/27/2025 [facility] Work Phone: Comment on above: Expected: 03/27/2024 (Approximate), Expires: 03/27/2025 Start: 03-27-2024 End: 03-27-2025 US Pelvis transvaginal US OB transvaginal Imaging Routine Missed menses Expected: 03/27/2024 (Approximate), Expires: 03/27/2025 [facility] Comment on above: Expected: 03/27/2024 (Approximate), Expires: 03/27/2025 Start: 2020 Screening for malign ant neoplasm of cervix Pap Smear [facility] Start: 2018 DTaP,Tdap and Td Vaccines (1 - Tdap) DTaP,Tdap and Td Vaccines (1 - Tdap) [facility] Start: 2017 Adult BMI Screening Adult BMI Screen ing [facility] Start: 2011 Depression Screening Depression Scre ening [facility] Start: 2011 Tobacco Screening Tobacco Screening [facility] Start: 1999 Screening for Chlamy leoncio trachomatis Chlamydia Screening [facility] Bacteria identified in Urine by Culture Urine culture Microbiology Routine Missed menses Ordered: 03/27/2024 [facility] Comment on above: Ordered: 03/27/2024 CBC W Auto Different ial panel - Blood CBC and differential Lab Routine Missed menses Ordered: 03/27/2024 [facility] Comment on above: Ordered: 03/27/2024 CHLAMYDIA TRACHOMATI S (GENITO/STI) CHLAMYDIA TRACHOMATIS (GENITO/STI) Lab Routine STD exposure Ordered: 05/25/2024 [facility] Comment on above: Ordered: 05/25/2024 Cytology Cervical or vaginal smear or scraping study Pap Smear Pathology and Cytology Routine Well woman exam with routine gynecological exam Ordered: 05/25/2024 [facility] Work Phone: Comment on above: Ordered: 05/25/2024 Hemoglobin A1c/Hemoglobin.total in Blood Hemoglobin A1c Lab Routine Missed menses Ordered: 03/27/2024 [facility] Comment on above: Ordered: 03/27/2024 Hepatitis B virus surface Ag [Presence] in Serum or Plasma by Immunoassay Hepatitis B surface antigen Lab Routine Missed menses Ordered: 03/27/2024 [facility] Comment on above: Ordered: 03/27/2024 Hepatitis C virus Ab [Presence] in Serum or Plasma by Immunoassay Hepatitis C antibody Lab Routine Missed menses Ordered: 03/27/2024 [facility] Comment on above: Ordered: 03/27/2024 HIV-1/HIV-2 antigen/antibody combination immunoassay HIV-1 and HIV-2 antibodies Lab Routine Missed menses Ordered: 03/27/2024 [facility] Comment on above: Ordered: 03/27/2024 Neisseria gonorrhoea e DNA [Presence] in Unspecified specimen by BUCK with probe detection Neisseria gonorrhea DNA probe, direct Lab Routine STD exposure Ordered: 05/25/2024 [facility] Comment on above: Ordered: 05/25/2024 Reagin Ab [Presence] in Serum by RPR RPR Lab Routine Missed menses Ordered: 03/27/2024 [facility] Comment on above: Ordered: 03/27/2024 Rubella antibody, IgG Rubella an tibody, IgG Lab Routine Missed menses Ordered: 03/27/2024 [facility] Comment on above: Ordered: 03/27/2024 SURESWAB(R) ADVANCED VAGINITIS PLUS, TMA SURESWAB(R) ADVANCED VAGINITIS PLUS, TMA Pathology and Cytology Routine Vaginal discharge Ordered: 05/25/2024 [facility] Comment on above: Ordered: 05/25/2024 Payers Date Payer Category Payer Commercial Managed C are - PPO [employer] [id number] 2023 [facility] [id number] 2023 Unknown [id number] 2021 Private Health Insurance [id number] 2021 Unknown [id number] [id number]. [id number] 2021 Unknown [id number] 1999 Unknown [id number] 2.16.840.1.515323.3.579.2. 593 1999 Unknown [id number] 2.16.840.1.038376.3.579.2. 593 1999 Unknown [id number] 2.16840.1.245775.3.579.2. 593 1999 Unknown [id number] 2.16840.1.030029.3.579.2. 593 1999 Unknown [id number] 2.16.840.1.904403.3.579.2. 593 1999 Unknown [id number] 2.16.840.1.274572.3.579.2. 593 1999 Unknown [id number] 2.16.840.1.747860.3.579.2. 593 1999 Unknown [id number] 2.16.840.1.421720.3.579.2. 1286 1999 Unknown [id number] 2.16.840.1.101589.3.579.2. 1286 1999 Unknown [id number] 2.16.840.1.337045.3.579.2. 1259 1999 Unknown [id number] 2.16.840.1.365590.3.579.2. 1259 1999 Unknown [id number] 2.16840.1.041479.3.579.2. 1259 1999 Unknown [id number] 2.16.840.1.780753.3.579.2. 1259 1999 Unknown [id number] 2.16.840.1.831025.3.579.2. 1259 1999 Unknown [id number] 2.16.840.1.340052.3.579.2. 1259 1999 Unknown [id number] 2.16.840.1.639267.3.579.2. 1259 1999 Unknown [id number] 2.16.840.1.195873.3.579.2. 1259 1999 Unknown [id number] 2.16.840.1.026321.3.579.2. 1258 1999 Unknown [id number] 2.16.840.1.799239.3.579.2. 1259 1959 Private Health Insurance [id number] 1959 Unknown [id number] Social History Date Type Detail Facility Tobacco smoking stat [facility] Unknown if ever smoked [facility] Work Phone: Start: 2000 Sex Assigned At Female F [facility] Start: 01-02-2024 End: 05-27-2024 Tobacco smoking status NHIS Never smoked tobacco [facility] Start: 01-02-2024 End: 05-27-2024 Tobacco use and exposure Smokeless tobacco non-user [facility] Start: 04-27-2024 End: 08-27-2024 Alcoholic beverage intake Ex-drinker (finding) [facility] Start: 01-02-2024 End: 06-15-2024 History of Social function [facility] Start: 01-02-2024 End: 06-15-2024 Tobacco use panel [facility] Start: 01-29-2024 [facility] Start: 11-26-2023 Gender identity Identifies as female gender (finding) [facility] Start: 05-27-2024 End: 06-15-2024 Alcoholic beverage intake Lifetime non-drinker (finding) [facility] Start: 1999 Sex assigned at Not on file P [facility] Start: 05-26-2024 Sex Female (finding) [facility] Medical Equipment Procedure Code Equipment Code Equipment Origin al Text Equipment Identifier Dates 1 strip by In Vi tro route Daily Use in the morning prior to breakfast, 1 hour after each meal for a total of 4times daily. [id number] Start: 07-20-2024 End: 08-19-2024 1 each by In Vit ro route Daily Use to check FSBS four times daily [id number] Start: 07-20-2024 End: 08-19-2024 Goals Date Patient Goal Desired Activity /State Personal health goal Clinical Notes 03-27-2024 to 08-27-2024 Esperanza Peter LPN - 08/27/2024 11:40 AM Donell Tracy LPN - 08/12/2024 11:10 AM Kamille Garcia MA - 07/20/2024 10:20 AM Gautam Peter LPN - 06/22/2024 1:50 PM EST [...] apply, As needed Blood Glucose Monitoring Suppl ([employer] Glucometer) w/Device kit 1 kit, Does not apply, Daily, Use four times daily to check FSBS. In the morning prior to breakfast & 1 hour after each meal for a total of 4times daily. Continuous Glucose Guest Services Associate (FreeStyle Jenise 3 [place]) device 1 each, Does not apply, Every 14 days Continuous Glucose Sensor (FreeStyle Jenise 3 Sensor) misc 1 each, Does not apply, Every 14 days metroNIDAZOLE (FLAGYL) 500 mg, Oral, 2 times daily, Do not drink alcohol while taking this medication Multiple Vitamin (multivitamin) tablet 1 tablet, Daily ALLERGIES Allergies Allergen Reactions King Flavor [King Oil] Latex Hives, Itching, Rash and Swelling [...] nursing note reviewed. Exam conducted with a emergency department coordinator present. Vitals: Estimated body mass index is [...] Immanuel Hilton DO documented in this encounter [facility] 08-12-2024 History of Present illness Narrative Reason [...] apply, As needed Blood Glucose Monitoring Suppl ([employer] Glucometer) w/Device kit 1 kit, Does not [...] 1 tablet, Daily ALLERGIES Allergies Allergen Reactions King Flavor [King Oil] Latex Hives, Itching, Rash and Swelling [...] nursing note reviewed. Exam conducted with a emergency department coordinator present. Vitals: Estimated body mass index is [...] by Chika Tracy LPN on behalf of: Immaneul Hilton DO documented in this encounter [facility] 07-20-2024 History of Present illness Narrative [...] mg, Oral, Daily ALLERGIES Allergies Allergen Reactions King Flavor [King Oil] Latex Hives, Itching, Rash and Swelling [...] Immanuel Hilton DO documented in this encounter [facility] 06-22-2024 History of Present illness Narrative [...] mg, Oral, Daily ALLERGIES Allergies Allergen Reactions King Flavor [King Oil] Latex Hives, Itching, Rash and Swelling [...] Immanuel Hilton DO documented in this encounter [facility] 06-15-2024 History of Present illness Narrative [...] Allergies: Allergies Allergen Reactions Latex, Natural Rubber King Meds: Prior to Admission medications Medication Sig [...] other morbidities. Based on the available evidence, [facility] recommends treatment with antihypertensive therapy for [...] preeclampsia prevention as is recommended by the [place] [employer]ne[employer] Committee Opinion No. 743. [...] Cele Rodriguez MD, FACOG (she/hers) Maternal- Medicine [address] [address] This document was created with [employer] technology. Though I make every effort to review the dictation as it is transcribed, on occasion the spoken word can be misinterpreted by the technology leading to inappropriate words, phrases, or sentences. This note is addressed to the requesting provider as a consultation for clinical guidance. Specific medical abbreviations are occasionally used and those are generally approved by the [place]?Board of?Obstetrics and?Gynecology?as well as?Kenzie s abbreviations. The above plan of care was based solely on the diagnoses for which a consultation was requested. ?More frequent testing may be indicated based on her other medical/obstetrical conditions. The management of other or medical conditions is beyond the scope of requested consultation and will continue to be followed by the primary courier or primary care provider. Note to patient: [...] IVF Have you been seen here at [facility] in a previous ? N/a Recent ER visits or hospitalizations? no Bring blood sugar log or meter with you today? (Please bring them with you for every visit at [facility]) no Flu vaccine (May-September)? no Any concerns that you would like me to mention to the provider today? no documented in this encounter [facility] [facility] 05-25-2024 History of Present illness Narrative Reason [...] mg, Oral, Daily ALLERGIES Allergies Allergen Reactions King Flavor [King Oil] Latex Hives, Itching, Rash and Swelling [...] nursing note reviewed. Exam conducted with a emergency department coordinator present. Vitals: Estimated body mass index is [...] Immanuel Hilton DO documented in this encounter [facility] 04-27-2024 History of Present illness Narrative [...] mg, Oral, Daily ALLERGIES Allergies Allergen Reactions King Flavor [King Oil] Latex Hives, Itching, Rash and Swelling [...] nursing note reviewed. Exam conducted with a emergency department coordinator present. Vitals: Estimated body mass index is [...] IVF . Patient to also have [facility] referral for IVF and Level II [...] or undercooked meat, and stay away from [facility]. Patient has been consulted regarding any further do's and don'ts of . Patient voiced understanding and all questions and concerns were answered. Orders Placed This Encounter Procedures POCT urinalysis dipstick manually resulted Follow Up: Patient is to return in 4 weeks for routine OB appointment. Documented by Esperanza Peter LPN on behalf of: Immanuel Hilton DO documented in this encounter [facility] 03-27-2024 History of Present illness Narrative [...] Procedure Laterality Date TONSILLECTOMY Allergies Allergen Reactions King Flavor [King Oil] Latex Hives, Itching, Rash and Swelling [...] or undercooked meat, and stay away from [facility]. Patient has also been advised to [...] Jo-Ann Motta LPN documented in this encounter [facility] Evaluation note No assessment inform ation available [facility] Work Phone: Evaluation note Diagnosis Well woman exam with routine gynecological exam Routine gynecological examination Second trimester state, incidental Vaginal discharge Leukorrhea, not specified as infective STD exposure documented [facility]* Diagnosis 21 weeks gestation of - Primary Chronic hypertension affecting In vitro fertilization Encounter for assisted reproductive fertility procedure cycle [facility] Diagnosis Second trimester [...] encounter [facility] HealthcareInstructionsNot on filedocumented in this encounterProMediid Health SystemInstructionsNot on filedocumented in this encounterProMer[facility] SystemInstructions* Attachments The following attachments cannot be sent through Care Everywhere. * Preeclampsia ([place]ese) documented in this [facility] Summary Purpose Family History Relationship Condition Age at Onset Recorded Date/T yosi family member Unknown Heart disease Unknown Advance Directives Advance Directive Response Recorded Date/ Time Advance Directives No January 01 9:07am Chief Complaint and Reason for Visit Chief Complaint Congestion Additional Source Comments INFORMATION SOURCE (unrecogn ized section and content) DATE CREATED AUTHOR 03/06/2019 [facility] DATE CREATED AUTHOR AUTHOR'S ORGANIZ ATION 12/21/2021 [facility] DATE CREATED AUTHOR AUTHOR'S ORGANIZ ATION 12/01/[address] [facility] DATE CREATED AUTHOR AUTHOR'S ORGANIZ ATION 06/17/2024 [facility] DATE CREATED AUTHOR AUTHOR'S ORGANIZ ATION 08/29/2024 [facility] Care Teams (unrecognized sec tion and content) Team Status: Active Member Role Status Dates Damon Stover DO Primary Care Provider Active Team Status: Inactive Member Role Status Dates Damon Stover DO Primary Care Provider Active Start: January 02, 2024 End: January 02, 2024 Teresa Sanchez APRN Attending Provider Active S tart: January 02, 2024 End: Margaret 6th, 2024 Educational Paraprofessional Relationship Specialty Start Date End Date Akila Grant MD [address] [facility] [place] [address] PCP - General Family Medicine 11/27/23 Educational Paraprofessional Relationship Specialty Start Date End Date Akila Grant MD [address] [facility] [place] [address] PCP - General Family Medicine 11/27/23 Educational Paraprofessional Relationship Specialty Start Date End Date Akila Grant MD [address] [facility] [place] [address] PCP - General Family Medicine 11/27/23 Educational Paraprofessional Relationship Specialty Start Date End Date Akila Grant MD [address] [facility] [place] [address] PCP - General Family Medicine 11/27/23 Educational Paraprofessional Relationship Specialty Start Date End Date Akila Grant MD [address] [facility] [place] [address] PCP - General Family Medicine 11/27/23 Educational Paraprofessional Relationship Specialty Start Date End Date Akila Grant MD [address] [facility] [place] [address] PCP - General Family Medicine 11/27/23 Educational Paraprofessional Relationship Specialty Start Date End Date Akila Grant MD [address] [facility] [place] [address] PCP - General Family Medicine 11/27/23 Educational Paraprofessional Relationship Specialty Start Date End Date Akila Grant MD [address] [place] [address] PCP - General Family Medicine 11/27/23 Educational Paraprofessional Relationship Specialty Start Date End Date Akila Grant MD [address] [place] [address] PCP - General Family Medicine 11/27/23 Educational Paraprofessional Relationship Specialty Start Date End Date Akila Grant MD [address] [place] [address] PCP - General Family Medicine 11/27/23 Educational Paraprofessional Relationship Specialty Start Date End Date Akila Grant MD [address] [facility] [place] [address] PCP - General Family Medicine 11/27/23 Educational Paraprofessional Relationship Specialty Start Date End Date Akila Grant MD [address] [place] [address] PCP - General Family Medicine 11/27/23 Educational Paraprofessional Relationship Specialty Start Date End Date Akila Grant MD [address] [facility] [place] [address] PCP - General Family Medicine 11/27/23 Educational Paraprofessional Relationship Specialty Start Date End Date Akila Grant MD [address] [place] [address] PCP - General Family Medicine 11/27/23 Educational Paraprofessional Relationship Specialty Start Date End Date Akila Grant MD [address] [facility] [place] [address] PCP - General Family Medicine 11/27/23 Goals [...] BE BASED ON THE PRIMARY CLINICAL RECORDS. [email or web address] provides no warranty or guarantee of the accuracy or completeness of information in this document.
[2024-09-09 08:28] VITALS: BP 136/93; PULSE 108
[2024-09-09 08:34] VITALS: BP 133/90; PULSE 110
[2024-09-09 08:39] VITALS: BP 133/95; PULSE 109
[2024-09-09 08:45] VITALS: BP 129/85; PULSE 108
[2024-09-09 09:25] LABS: Basophils Percent Auto 0.1 % (0.2-2.0); Eosinophils Absolute Auto 0.1 10^3/uL (0.0-0.7); Eosinophils Percent Auto 0.7 % (0.9-7.0); Hematocrit 32.2 % (36.0-48.0); Hemoglobin 10.6 g/dL (12.0-16.0); Immature Granulocytes Abs Auto 0.06 10^3/uL (0.00-0.03); Immature Granulocytes Pct Auto 0.9 % (0.0-0.5); Lymphocytes Absolute Auto 1.4 10^3/uL (1.2-3.8); Lymphocytes Percent Auto 19.7 % (20.5-60.0); Mean Corpuscular HGB Conc 32.9 g/dL (29.9-35.2); Mean Corpuscular Hemoglobin 28.3 pg (26.7-34.0); Mean Corpuscular Volume 85.9 fL (81.0-99.0); Mean Platelet Volume 10.4 fL (9.5-13.5); Monocytes Absolute Auto 0.5 10^3/uL (0.3-0.8); Monocytes Percent Auto 7.4 % (1.7-12.0); Neutrophils Absolute Auto 4.9 10^3/uL (1.4-6.5); Neutrophils Percent Auto 71.2 % (43.0-75.0); Platelet Count 391 10^3/uL (150-450); Red Blood Count 3.75 10^6/uL (4.20-5.40); Red Cell Distribution Width 13.4 % (11.0-15.0); White Blood Count 6.9 10^3/uL (4.0-11.0)
[2024-09-09 09:54] LABS: Partial Thromboplastin Time 21.9 sec (22.3-36.2); Prothrombin Time 9.8 sec (9.0-11.6)
[2024-09-09 10:10] LABS: INR <0.93
[2024-09-09 10:23] LABS: Aspartate Amino Transferase 14 U/L (15-37); Estimated GFR (African America >60 (>=60 mL/min/1.73m^2); Estimated GFR (Non-African Ame >60 (>=60 mL/min/1.73m^2); Lactate Dehydrogenase 296 U/L (81-234); Uric Acid 5.4 mg/dL (2.6-6.0)
== END 2024-09-09 08:58 | disposition home or self-care (01) ==
LOC: US 00:41 → FBC 07:55
PROVIDERS: PCP Family Medicine; Visit Provider Obstetrics & Gynecology
DX: Z31.83 Encounter for assisted reproductive fertility procedure cycle (principal); O24.419 Gestational diabetes mellitus in pregnancy, unspecified control; O13.9 Gestational [pregnancy-induced] hypertension without significant proteinuria, unspecified trimester; Z3A.33 33 weeks gestation of pregnancy
CPT/HCPCS: 36415; 76818; 82565; 83615; 84450; 84520; 84550; 85025; 85610; 85730

== ENCOUNTER 2024-09-12 06:33 | Outpatient (OUT) | payer BC, OTHER, SELFPAY ==
--- OUTSIDE RECORDS SUMMARY | 2024-09-12 06:36 | XMS_ITS | CCD ---
Author Organization [facility] Care Team Providers Care Clinical Laboratory Assistant Name Role Phone YOBANI ., DR SMITH [...] Primary Care Provider Unavailable Primary Care Provider Unavailabl e IMMANUEL HILTON Referring Unavailable CELE RODRIGUEZ Attending Unavailable IMMANUEL HILTNO R Referring Unavailable YOBANI, IMMANUEL Referring Unavailable YOBANI, IMMANUEL Attending Unavailable YOBANI, IMMANUEL Attending Unavailable YOBANI, IMMANUEL Attending Unavailable JOHNNY FERNANDEZ Attending Unavailable IMMANUEL HILTON Attending Unavailable IMMANUEL HILTON Attending Unavailable IMMANUEL HILTON Attending Unavailable IMMANUEL HILTON Attending Unavailable IMMANUEL HILTON Attending Unavailable Allergies Allergy Classification Reported Allergen(s) Allergy Type Date of Onset Reaction(s) Facility (2 sources) Latex Drug allergy (disorder) 0 hives [facility] (1 source) orange flavor Drug allergy (disorder) 0 [facility] (5 sources) [place] - fruit; Translations: [ORANGE] 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 4 anaphylaxis [facility] (20 sources) Latex 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 4 Hives, Itching, Rash, Swelling [facility] (20 sources) orange allergenic extract Drug Allergy 4 [facility] Work Phone: (1 source) natural latex rubber; Translations: [LATEX, NATURAL RUBBER] Propensity to adverse reactions to drug (disorder) 4 [facility] Medications Current Medications Medication Drug Class(es) Dates Sig (Normalized) Sig (Original) amoxicillin 500 mg oral tablet (5 sources) Penicillin-class Antibacterial Start: 09-03-2024 End: 09-10-2024 take [...] 2024 12:00am aspirin 81 mg chewable tablet (9 sources) Platelet Aggregation Inhibitor, Nonsteroidal Anti-inflammatory Drug [...] Glucose Monitoring Suppl (D-Care Glucometer) w/Device kit (15 sources) Start: 07-20-2024 End: 07-20-2025 Blood Glucose [...] MCG/0.5ML injection 11/26/2023 03/27/2024 Discontinued Continuous Glucose Cokeman (FreeStyle Jenise 3 [place]) device (9 sources) Start: 08-20-2024 Continuous Glucose Cokeman (FreeStyle Jenise 3 [place]) device Indications: Gestational diabetes mellitus (GDM), antepartum, gestational diabetes method of control unspecified , Third trimester 1 each every 14 (fourteen) days 1 each 3 08/20/2024 Active Continuous Glucose Sensor (FreeStyle Jenise 3 Sensor) misc (9 sources) Start: 08-20-2024 Continuous Glucose Sensor (FreeStyle Jenise 3 Sensor) misc Indications: Gestational diabetes mellitus (GDM), antepartum, gestational diabetes method of control unspecified , Third trimester 1 each every 14 (fourteen) days 2 each 3 08/20/2024 Active isopropyl alcohol 0.7 ml/ml medicated pad (15 sources) Start: 07-20-2024 Alcohol Swabs (Alcohol Prep Pad) 70 % pads Indications: Gestational diabetes mellitus (GDM), antepartum, gestational diabetes method of control unspecified , Elevated glucose tolerance test Apply 1 Pad topically Daily Use four times daily to check FSBS. 150 each 3 07/20/2024 Active labetalol hydrochloride 100 mg oral tablet (20 sources) beta-Adrenergic Kyle Start: 09-08-2024 End: 09-08-2025 take 1 tablet by mouth in the morning labetalol (Normodyne) 100 MG tablet Indications: induced hypertension, antepartum Take 1 tablet (100 mg) by mouth in the morning and 1 tablet (100 mg) before bedtime. 60 tablet 11 09/08/2024 09/08/2025 Active Start: 01-02-2024 take 100 mg by mouth [...] 2024 12:00am terconazole 4 mg/ml vaginal cream (8 sources) Azole Antifungal Start: 09-03-2024 End: 09-10-2024 [...] , unspecified trimester] Onset: 06-15-2024 06-15-2024 Chronic Hypertension complicating ; childbirth and the puerperium (2 sources) -induced hypertension; Translations: [Gestational [-induced] hypertension without significant proteinuria, unspecified trimester] 09-08-2024 Episodic Immunizations and screening for infectious disease (2 [...] of ] 06-22-2024 Episodic Residual codes; unclassified (18 sources) Gestation period, 26 weeks; Translations: [26 weeks gestation of ] Onset: 07-20-2024 07-20-2024 Episodic Residual codes; unclassified (2 sources) Gestation period, 29 weeks; Translations: [29 weeks gestation of ] 08-12-2024 Episodic Residual codes; unclassified (2 sources) Gestation period, 32 weeks; Translations: [32 weeks gestation of ] 08-27-2024 Episodic Residual codes; unclassified (2 sources) Gestation period, 33 weeks; Translations: [33 weeks gestation of ] 09-08-2024 Episodic Thyroid disorders (1 source) Nontoxic single [...] WITH AUTO DIFFon BASOPHILS ABSOLUTE AUTO 0 [facility] Basophils/100 WBC (Bld) 0.1 % Low 0.2 - 2.0 % [facility] Eosinophils/100 WBC (Bld) 0.7 % Low 0.9 - 7.0 % [facility] Erythrocyte distribution width (RBC) [Ratio] 13.4 % 11.0 - 15.0 % [facility] Hematocrit (Bld) [Volume fraction] 32.2 % Low 36.0 - 48.0 % [facility] Hemoglobin (Bld) [Mass/Vol] 10.6 g/dL Low 12.0 - 16.0 g/dL [facility] IMMATURE GRANULOCYTES ABS AUTO 0.06 High [facility] Immature granulocytes/100 WBC (Bld) 0.9 % High 0.0 - 0.5 % [facility] Interpretation and review of laboratory results Abnormal [facility] LYMPHOCYTES ABSOLUTE AUTO 1.4 [facility] Lymphocytes/100 WBC (Bld) 19.7 % Low 20.5 - 60.0 % [facility] MCH (RBC) [Entitic mass] 28.3 pg 26.7 - 34.0 pg [facility] MCHC (RBC) [Mass/Vol] 32.9 g/dL 29.9 - 35.2 g/dL [facility] MCV (RBC) [Entitic vol] 85.9 fL 81.0 - 99.0 fL [facility] MONOCYTES ABSOLUTE AUTO 0.5 [facility] Monocytes/100 WBC (Bld) 7.4 % 1.7 - 12.0 % [facility] NEUTROPHILS ABSOLUTE AUTO 4.9 [facility] Neutrophils/100 WBC (Bld) 71.2 % 43.0 - 75.0 % [facility] Platelet mean volume (Bld) [Entitic vol] 10.4 fL 9.5 - 13.5 fL [facility] TBH EO # 0.1 [facility] TBH PLT [address] [facility] RBC 3.75 Low [facility] TB WBC 6.9 [facility] US OB BPP W NON-STRESS on 09-09-[address] [address] Ultrasound Report Signed Patient: AMY MARIO MR#: [id number] : 2000 Acct:[id number] Age/Sex: 24 / F ADM Date: 09/09/24 Loc: US Attending Dr: Immanuel Hilton D.O. Ordering Physician: Immanuel Hilton D.O. Date of Service: 09/09/24 Procedure(s): US OB BPP w non-stress Accession Number(s): [id number] cc: Akila Grant M.D.; Immanuel Hilton D.O. The [place] [id number] Patient Name: AMY MARIO MRN: [facility]:[id number] date: 2000 Sex: F Assigned Patient Location: [facility] Current Patient Location: .MAIN Accession/Order Number: [id number] Exam Date: 09/09/2024 07:58 Report Date: 09/09/2024 11:30 At the request of: IMMANUEL HILTON Procedure: US OB BPP w non-stress EXAMINATION: US OB BPP w non-stress HISTORY: Gestational diabetes mellitus O24.419 COMPARISON: No relevant comparison available. TECHNIQUE: Ultrasound biophysical profile was performed in the radiology department. non-reactive stress testing was performed by nursing staff in the birthing center. FINDINGS: BREATHING MOVEMENTS: 2 GROSS BODY MOVEMENTS: 2 TONE: 2 QUALITATIVE AMNIOTIC FLUID VOLUME: 2 PRESENTATION: CEPHALIC HEART RATE: 133.00 bpm AMNIOTIC FLUID VOLUME: 16.7 cm GESTATIONAL AGE: 33 weeks 6 days US/US OB BPP w non-stress IMPRESSION: Total biophysical profile score: 8 Electronically authenticated by: CLEMENTINE DEWEY Date: 09/09/2024 11:30 Dictated By: Clementine Dewey M.D. Signed By: 09/09/24 1132 DD/ 1130 TD/TT: Curatorial Assistant: [facility] Radiology, Radiologist, MD - 09/09/2024 [place] [address] Ultrasound Report Signed Patient: AMY MARIO MR#: [id number] : 2000 Acct:[id number] Age/Sex: 24 / F ADM Date: 09/09/24 Loc: US Attending Dr: Immanuel Hilton D.O. Ordering Physician: Immanuel Hilton D.O. Date of Service: 09/09/24 Procedure(s): US OB BPP w non-stress Accession Number(s): [id number] cc: Akila Grant M.D.; Immanuel Hilton D.O. [place] [address] Patient Name: AMY MARIO MRN: [facility]:[id number] date: 2000 Sex: F Assigned Patient Location: [facility] Current Patient Location: ED.MAIN Accession/Order Number: [id number] Exam Date: 09/09/2024 07:58 Report Date: 09/09/2024 11:30 At the request of: IMMANUEL HILTON Procedure: US OB BPP w non-stress EXAMINATION: US OB BPP w non-stress HISTORY: Gestational diabetes mellitus O24.419 COMPARISON: No relevant comparison available. TECHNIQUE: Ultrasound biophysical profile was performed in the radiology department. non-reactive stress testing was performed by nursing staff in the birthing center. FINDINGS: BREATHING MOVEMENTS: 2 GROSS BODY MOVEMENTS: 2 TONE: 2 QUALITATIVE AMNIOTIC FLUID VOLUME: 2 PRESENTATION: CEPHALIC HEART RATE: 133.00 bpm AMNIOTIC FLUID VOLUME: 16.7 cm GESTATIONAL AGE: 33 weeks 6 days US/US OB BPP w non-stress IMPRESSION: Total biophysical profile score: 8 Electronically authenticated by: CLEMENTINE DEWEY Date: 09/09/2024 11:30 Dictated By: Clementine Dewey M.D. Signed By: 09/09/24 1132 DD/ 1130 TD/TT: Curatorial Assistant: [facility] Radiology Study observation (narrative) [facility] US OB BPP W NON-STRESS Ordered By: Radiologist Radiology on 09-09-2024 [facility] Work Phone: Urinalysis macro (dipstick) panel (U)on 09-08-2024 Bilirubin, UA Trace Negative - 4(70) +++ mg/dL [facility] Blood, UA Positive Negative - 50 Jimy/mcL [facility] Clarity, UA Clear [facility] Color, UA Yellow [facility] Glucose, UA Negative Negative - 2000(110) ++++ mg/dL [facility] Interpretation and review of laboratory results Abnormal [facility] Ketones, UA Negative Negative - 160(16) ++++ mg/dL [facility] Leukocytes, UA Positive Negative - 500+++ Mychal/mcL [facility] Nitrite, UA Negative Negative - Positive [facility] pH, UA 6 5 - 9 [facility] Protein, UA Positive Negative - 1999(20) ++++ mg/dL [facility] Spec Grav, UA 1.025 1 - 1.03 [facility] Urobilinogen, UA 0.2 0.2 - 12 mg/dL [facility] US OB BPP W NON-STRESS on 09-02-2024 [place] [address] Ultrasound Report Signed Patient: AMY MARIO MR#: [id number] : 2000 Acct:[id number] Age/Sex: 24 / F ADM Date: 09/02/24 Loc: US Attending Dr: Immanuel Hilton D.O. Ordering Physician: Immanuel Hilton D.O. Date of Service: 09/02/24 Procedure(s): US OB BPP w non-stress Accession Number(s): [id number] cc: Akila Grant M.D.; Immanuel Hilton D.O. [address] [address] Patient Name: AMY MARIO MRN: [facility]:[id number] date: 2000 Sex: F Assigned Patient Location: [facility] Current Patient Location: Accession/Order Number: [id number] Exam Date: 09/02/2024 08:03 Report Date: 09/02/2024 [...] M.D. Signed By: 09/02/24924 DD/ 1 TD/TT: Curatorial Assistant: [facility] Radiology, Radiologist, MD - 09/02/2024 [place] [address] Ultrasound Report Signed Patient: AMY MAIRO MR#: [id number] : 2000 Acct:[id number] Age/Sex: 24 / F ADM Date: 09/02/24 Loc: US Attending Dr: Immanuel Hilton D.O. Ordering Physician: Immanuel Hilton D.O. Date of Service: 09/02/24 Procedure(s): US OB BPP w non-stress Accession Number(s): [id number] cc: Akila Grant M.D.; Immanuel Hilton D.O. The [place] [id number] Patient Name: AMY MARIO MRN: [facility]:[id number] date: 2000 Sex: F Assigned Patient Location: [facility] Current Patient Location: Accession/Order Number: [id number] Exam Date: 09/02/2024 08:03 Report Date: 09/02/2024 [...] M.D. Signed By: 09/02/24924 DD/ 1 TD/TT: Curatorial Assistant: [facility] Radiology Study observation (narrative) [facility] OB BPP W NON-STRESS Ordered By: Radiologist Radiology on 09-02-2024 [facility] Work Phone: US OB FOLLOW UP TRANSABDOMIN [...] 2164 gm / 4 lbs, 12 oz (0973-1181 gm) [place] Normal: 1953 gm (6024-7018 mg) [place] 80% for 32.0 wks (GA [...] report is generated using voice recognition reporting ([employer]). On occasion [employer] erroneously drops words from the report or [...] UA Positive Negative - 4(70) +++ mg/dL [facility] Comment on above: small Blood, UA Negative Negative - 50 Jimy/mcL [facility] Clarity, UA Clear [facility] Color, UA Yellow [facility] Glucose, UA Positive Negative - 2000(110) ++++ mg/dL [facility] Comment on above: 100 Interpretation and review of laboratory results Abnormal [facility] Ketones, UA Positive Negative - 160(16) ++++ mg/dL [facility] Comment on above: trace Leukocytes, UA Positive Negative - 500+++ Mychal/mcL [facility] Comment on above: large Nitrite, UA Negative Negative - Positive [facility] pH, UA 6.5 5 - 9 [facility] Protein, UA Positive Negative - 2000(20) ++++ mg/dL [facility] Comment on above: 30 Spec Grav, UA 1.03 1 - 1.03 [facility] Urobilinogen, UA 0.2 0.2 - 12 mg/dL [facility] US OB BPP W NON-STRESS on 08-26-2024 [place] [address] Ultrasound Report Signed Patient: AMY MARIO MR#: [id number] : 2000 Acct:[id number] Age/Sex: 24 / F ADM Date: 08/26/24 Loc: [facility] 251-[address]: Immanuel Hilton D.O. Ordering Physician: Immanuel Hilton D.O. Date of Service: 08/26/24 Procedure(s): US OB BPP w non-stress Accession Number(s): [id number] cc: Akila Grant M.D.; Immanuel Hilton D.O. [address] [address] Patient Name: AMY MARIO MRN: [facility]:[id number] date: 2000 Sex: F Assigned Patient Location: [facility] Current Patient Location: [facility] Accession/Order Number: [id number] Exam Date: 08/26/2024 08:00 Report Date: 08/26/2024 [...] M.D. Signed By: 08/26/24 0858 DD/ TD/TT: Curatorial Assistant: [facility] Radiology, Radiologist, MD - 08/26/2024 [place] [address] Ultrasound Report Signed Patient: AMY MARIO MR#: [id number] : 2000 Acct:[id number] Age/Sex: 24 / F ADM Date: 08/26/24 Loc: [facility] 251-[address]: Immanuel Hilton D.O. Ordering Physician: Immanuel Hilton D.O. Date of Service: 08/26/24 Procedure(s): US OB BPP w non-stress Accession Number(s): [id number] cc: Akila Grant M.D.; Immanuel Hilton D.O. The [place] [phone] Patient Name: AMY MARIO MRN: [facility]:[id number] date: 2000 Sex: F Assigned Patient Location: [facility] Current Patient Location: [facility] Accession/Order Number: [id number] Exam Date: 08/26/2024 08:00 Report Date: 08/26/2024 [...] Lucho Mixon M.D. Signed By: 08/26/2458 DD/ 5 TD/TT: Curatorial Assistant: [facility] Radiology Study observation (narrative) [facility] US OB BPP W NON-STRESS Ordered By: Radiologist Radiology on 08-26-2024 [facility] Work Phone: Urinalysis macro (dipstick) panel (U)on 08-12-2024 Bilirubin, UA Negative Negative - 4(70) +++ mg/dL [facility] Blood, UA Negative Negative - 50 Jimy/mcL [facility] Clarity, UA Clear [facility] Color, UA Yellow [facility] Glucose, UA Negative Negative - 1999(110) ++++ mg/dL [facility] Interpretation and review of laboratory results Abnormal [facility] Ketones, UA Positive Negative - 160(16) ++++ mg/dL [facility] Comment on above: trace Leukocytes, UA Positive Negative - 500+++ Mychal/mcL [facility] Comment on above: large Nitrite, UA Negative Negative - Positive [facility] pH, UA 5.5 5 - 9 [facility] Protein, UA Trace Negative - 1999(20) ++++ mg/dL [facility] Spec Grav, UA 1.03 1 - 1.03 [facility] Urobilinogen, UA 0.2 0.2 - 12 mg/dL [facility] ALL CBC WITH AUTO DIFFon BASOPHILS ABSOLUTE AUTO 0 [facility] Basophils/100 WBC (Bld) 0.3 % 0.2 - 2.0 % [facility] Eosinophils/100 WBC (Bld) 1 % 0.9 - 7.0 % [facility] Erythrocyte distribution width (RBC) [Ratio] 13.2 % 11.0 - 15.0 % [facility] Hematocrit (Bld) [Volume fraction] 32.6 % Low 36.0 - 48.0 % [facility] Hemoglobin (Bld) [Mass/Vol] 11.3 g/dL Low 12.0 - 16.0 g/dL [facility] IMMATURE GRANULOCYTES ABS AUTO 0.07 High [facility] Immature granulocytes/100 WBC (Bld) 0.9 % High 0.0 - 0.5 % [facility] Interpretation and review of laboratory results Abnormal [facility] LYMPHOCYTES ABSOLUTE AUTO 1.6 [facility] Lymphocytes/100 WBC (Bld) 19.6 % Low 20.5 - 60.0 % [facility] MCH (RBC) [Entitic mass] 30.4 pg 26.7 - 34.0 pg [facility] MCHC (RBC) [Mass/Vol] 34.7 g/dL 29.9 - 35.2 g/dL [facility] MCV (RBC) [Entitic vol] 87.6 fL 81.0 - 99.0 fL [facility] MONOCYTES ABSOLUTE AUTO 0.6 [facility] Monocytes/100 WBC (Bld) 8 % 1.7 - 12.0 % [facility] NEUTROPHILS ABSOLUTE AUTO 5.6 [facility] Neutrophils/100 WBC (Bld) 70.2 % 43.0 - 75.0 % [facility] Platelet mean volume (Bld) [Entitic vol] 9.7 fL 9.5 - 13.5 fL [facility] TBH EO # 0.1 [facility] TB PLT [address] [facility] RBC 3.72 Low [facility] TB WBC 8 [facility] Urinalysis macro (dipstick) panel (U)on 06-22-2024 Bilirubin, UA Negative Negative - 4(70) +++ mg/dL [facility] Blood, UA Negative Negative - 50 Jimy/mcL [facility] Clarity, UA Clear [facility] Color, UA Yellow [facility] Glucose, UA Negative Negative - 1999(110) ++++ mg/dL [facility] Interpretation and review of laboratory results Abnormal [facility] Ketones, UA Positive Negative - 160(16) ++++ mg/dL [facility] Comment on above: 15 Leukocytes, UA Positive Negative - 500+++ Mychal/mcL [facility] Comment on above: small Nitrite, UA Negative Negative - Positive [facility] pH, UA 5.5 5 - 9 [facility] Protein, UA Trace Negative - 1999(20) ++++ mg/dL [facility] Spec Grav, UA 1.03 1 - 1.03 [facility] Urobilinogen, UA 0.2 0.2 - 12 mg/dL [facility] IGP,APTIMA HPV,AGE GDLNon AGE GDLN ACOG TESTING Note . [facility] Comment on above: TESTS RESULT FLAG UN ITS REF RANGE LAB Clinician Provided Cytology Information Source.............Cervix Other.............. No. of containers..01 ThinPrep Vial Age Algo ACOG Michelle... -25 08 FLAG LEGEND: L-Low Normal,H-High Normal,LL-Alert Low,HH-Alert High <-Panic Low,>-Panic High,A-Abnormal,AA-Critical Abnormal Performed at: 01 =G [facility] [address] [place] [address] Mar Rivera MD, IGP, RFX APTIMA HPV ASCU Note . [facility] Comment on above: TESTS RESULT FLAG UN ITS REF RANGE LAB DIAGNOSIS: 02 NEGATIVE FOR INTRAEPITHELIAL LESION OR MALIGNANCY. FUNGAL ORGANISMS MORPHOLOGICALLY CONSISTENT WITH CARLOS SPECIES ARE PRESENT. Specimen adequacy: 02 Satisfactory for evaluation. No endocervical component is identified. An endocervical component is not commonly seen in the patient. Performed by: Judy Vera, Programming Engineer ([facility]) . 02 Note: Note 02 [...] High,A-Abnormal,AA-Critical Abnormal Performed at: 02 [address] [facility] [address] [address] Mar Rivera MD, Performed at: =G - [facility] [id number] Plastic Worker: Mar Rivera MD, Phone: [phone] Performed at: [address] [id number] Plastic Worker: Mar Rivera MD, Phone: [phone] [facility] AFP, SERUM, OPEN SPINA BIFID Aon 05-30-2024 AFP MOM 1.36 . [facility] AFP VALUE 55.4 ng/mL . [facility] COMMENT: Comment . [facility] Comment on above: Ivet Mobley , Ph.D., [facility] Director References: Available Upon Request. Multiples Of Median Cutoffs For AFP Elevations [place] 2.5 Black 2.8 IDD 2.0 Twins 4.5 Abbreviation Definitions IDD - Insulin Dep Diabetes OSBR - Open Spina Bifida Risk For further inquiries contact [facility] at [phone]. This test was developed and its performance characteristics determined by [employer]. It has not been cleared or approved by the Food and Drug Administration. Performed at: [facility] [address] [place], [place] [id number] Plastic Worker: Kristina Carter [facility], Phone: [phone] GEST. AGE ON COLLECTION DATE 18.6 . weeks [facility] GESTAT. AGE BASED ON LMP . [facility] Comment on above: Recalculations are n ot recommended when gestational dating by LMP and ultrasound are within 10 days. INSULIN DEP DIABETES No . [facility] INTERPRETATION Comment . [facility] Comment on above: Interpretation: Scre [...] Customer Services to discuss available options. The [employer] recommends amniocentesis be offered to women age 35 and older. MATER[age] AT SARA 25.3 . [age] [facility] MULTIPLE GESTATION No . [facility] OSBR RISK 1 [place] 4034 . [facility] RACE . [facility] RESULTS Report . [facility] TEST RESULTS: Negative . [facility] WEIGHT 185 . lbs [facility] N N LMP [id number] 18 N 1 Y 185 N N N N N [facility]/ [facility] Urinalysis macro (dipstick) panel (U)on 04-27-2024 Bilirubin, UA Positive Negative - 4(70) +++ mg/dL [facility] Comment on above: small Blood, UA Negative Negative - 50 Jimy/mcL [facility] Clarity, UA Clear [facility] Color, UA Yellow [facility] Glucose, UA Negative Negative - 2000(110) ++++ mg/dL [facility] Interpretation and review of laboratory results Abnormal [facility] Ketones, UA Positive Negative - 160(16) ++++ mg/dL [facility] Comment on above: trace Leukocytes, UA Positive Negative - 500+++ Mychal/mcL [facility] Comment on above: small Nitrite, UA Negative Negative - Positive [facility] pH, UA 6.0 5 - 9 [facility] Protein, UA Negative Negative - 2000(20) ++++ mg/dL [facility] Spec Grav, UA 1.030 1 - 1.03 [facility] Urobilinogen, UA 0.2 0.2 - 12 mg/dL [facility] ALL CBC WITH AUTO DIFFon BASOPHILS ABSOLUTE AUTO 0.0 [facility] Basophils/100 WBC (Bld) 0.1 % Low 0.2 - 2.0 % [facility] Eosinophils/100 WBC (Bld) 0.9 % 0.9 - 7.0 % [facility] Erythrocyte distribution width (RBC) [Ratio] 13.0 % 11.0 - 15.0 % [facility] IMMATURE GRANULOCYTES ABS AUTO 0.03 [facility] Immature granulocytes/100 WBC (Bld) 0.3 % 0.0 - 0.5 % [facility] Interpretation and review of laboratory results Abnormal [facility] LYMPHOCYTES ABSOLUTE AUTO 2.3 [facility] Lymphocytes/100 WBC (Bld) 26.6 % 20.5 - 60.0 % [facility] MCH (RBC) [Entitic mass] 30.1 pg 26.7 - 34.0 pg [facility] MCHC (RBC) [Mass/Vol] 34.6 g/dL 29.9 - 35.2 g/dL [facility] MCV (RBC) [Entitic vol] 87.0 fL 81.0 - 99.0 fL [facility] MONOCYTES ABSOLUTE AUTO 0.4 [facility] Monocytes/100 WBC (Bld) 4.1 % 1.7 - 12.0 % [facility] NEUTROPHILS ABSOLUTE AUTO 5.9 [facility] Neutrophils/100 WBC (Bld) 68.0 % 43.0 - 75.0 % [facility] Platelet mean volume (Bld) [Entitic vol] 9.6 fL 9.5 - 13.5 fL [facility] TBH EO # 0.1 [facility] PLT 400 [facility] RBC 4.55 [facility] WBC 8.7 [facility] CBC without diffon Rbc Mcv (Fl) By Automated Count 87 [facility] Laboratory - Hematology and Cell countson 04-08-2024 Hematocrit (Bld) [Volume fraction] 39.6 % [facility] Hemoglobin (Bld) [Mass/Vol] 13.7 g/dL [facility] No Panel Informationon 04-08 [facility] Rubella IGG immune statuson 04-08-2024 Rubella immune IgG 2.32 [facility] Syphilis Total(Unknown Syphi lis Status)on 04-08-2024 Syphilis Non-Reactive [facility] Type and screenon 04-08-2024 Abo/Rh(D) Positive [facility] HCG ( test) Ql (U)o n 03-27-2024 Interpretation and review of laboratory results Abnormal [facility] Preg Test, Ur Positive formerly [facility] Urinalysis macro (dipstick) panel (U)on 03-27-2024 Bilirubin, UA Negative Negative - 4(70) +++ mg/dL [facility] Blood, UA Negative Negative - 50 Jimy/mcL [facility] Clarity, UA Clear [facility] Color, UA Yellow [facility] Glucose, UA Negative Negative - 2000(110) ++++ mg/dL [facility] Interpretation and review of laboratory results Normal [facility] Ketones, UA Negative Negative - 160(16) ++++ mg/dL [facility] Leukocytes, UA Negative Negative - 500+++ Mychal/mcL [facility] Nitrite, UA Negative Negative - Positive [facility] pH, UA 5.5 5 - 9 [facility] Protein, UA Negative Negative - 2000(20) ++++ mg/dL [facility] Spec Grav, UA 1.025 1 - 1.03 [facility] Urobilinogen, UA 0.2 0.2 - 12 mg/dL [facility] PROGESTERONEon 07-27-2022 Progesterone 26.9 ng/mL Normal [facility] Comment on above: Result Comment: Foll icular phase 0.1 - 0.9 Luteal phase 1.8 - 23.9 Ovulation phase 0.1 - 12.0 First trimester 11.0 - 44.3 Second trimester 25.4 - 83.3 Third trimester 58.7 - 214.0 Postmenopausal 0.0 - 0.1 Performed By: #### P ROGES #### [facility] [address] [place] [address] Dr. Ryan Francisco PREG QUANT HCGon 07-12-2022 HCG QUANT <1 Normal [facility] Comment on above: Performed By: #### P REGQNT #### [facility] [address] [address] [address] Ryan Francisco HCG RANGE SEE BELOW Normal [facility] Comment on above: Result Comment: 5-50 0.2-1 WEEK 50-500 1-2 WEEKS 100-5,000 2-3 WEEKS 500-10,000 3-4 WEEKS 1,000-50,000 4-5 WEEKS 10,000-100,000 5-6 WEEKS 15,000-200,000 6-8 WEEKS 10,000-100,000 2-3 MONTHS Performed By: #### P REGQNT #### [facility] [address] [place] [address] Dr. Ryan Francisco XR HYSTEROSALPINGO EXPon XR [...] by: CLEMENTINE DEWEY Date: 2022-07-12 12:34 Normal [facility] PROGESTERONEon 06-29-2022 Progesterone 4.6 ng/mL Normal [facility] Comment on above: Result Comment: Foll icular phase 0.1 - 0.9 Luteal phase 1.8 - 23.9 Ovulation phase 0.1 - 12.0 First trimester 11.0 - 44.3 Second trimester 25.4 - 83.3 Third trimester 58.7 - 214.0 Postmenopausal 0.0 - 0.1 Performed By: #### P BRETT #### [facility] [address] [place] [address] Dr. Ryan Francisco PROGESTERONEon 06-01-2022 Progesterone 18.9 ng/mL Normal [facility] Comment on above: Result Comment: Foll icular phase 0.1 - 0.9 Luteal phase 1.8 - 23.9 Ovulation phase 0.1 - 12.0 First trimester 11.0 - 44.3 Second trimester 25.4 - 83.3 Third trimester 58.7 - 214.0 Postmenopausal 0.0 - 0.1 Performed By: #### P BRETT #### [facility] [address] [place] [address] Dr. Ryan Francisco US PELVIS AND TRANSVAGon [...] polycystic ovarian syndrome Electronically authenticated by: CLEMENTINE DEEWY Date: 2022-05-17 17:25 Normal [facility] PROGESTERONEon 04-29-2022 Progesterone 5.1 ng/mL Normal [facility] Comment on above: Result Comment: Foll icular phase 0.1 - 0.9 Luteal phase 1.8 - 23.9 Ovulation phase 0.1 - 12.0 First trimester 11.0 - 44.3 Second trimester 25.4 - 83.3 Third trimester 58.7 - 214.0 Postmenopausal 0.0 - 0.1 Performed By: #### P BRETT ####[facility] [address] [place], [place] [address]JnDr. Ryan Francisco ANTI-MULLERIAN HORMONEon Anti-Mullerian Hormone (AMH) 6.09 ng/mL Normal [facility] Comment on above: Result Comment: For assays employing antibodies, the possibility exists for interference by heterophile antibodies in the samples.1 1.Steffen Wilson Interferences in Immunoassays - still a threat. Clin. Chem. 2000; 46: 8527-5966. This test was developed and its performance characteristics determined by [employer]. It has not been cleared or approved by the Food and Drug Administration. Reference Range: Females 20 - 25y: 1.23 - 11.51 Median 4.70 AMH concentrations of >= 1.06 ng/mL is correlated with a better response to ovarian stimulation, produced more retrievable oocytes and higher odds of live according to Gleicher et al. Fertility and Sterility. 2010: 94:0194-9920. The current AMH test method correlates with [...] tumor. Performed By: #### A WEI #### [facility] [address] [place], [place] [address] Dr. Ryan Francisco FSHon 04-05-2022 FSH 3.6 mIU/mL Normal [facility] Comment on above: Result Comment: Adul t Female: Follicular phase 3.5 - 12.5 Ovulation phase 4.7 - 21.5 Luteal phase 1.7 - 7.7 Postmenopausal 25.8 - 134.8 Performed By: #### [facility] #### [facility] [address] [address] [address] Ryan Francisco LUTEINIZING HORMONE (LH)on 0 04-05-2022 LH 6.8 mIU/mL Normal [facility] Comment on above: Result Comment: Adul t Female: Follicular phase 2.4 - 12.6 Ovulation phase 14.0 - 95.6 Luteal phase 1.0 - 11.4 Postmenopausal 7.7 - 58.5 Performed By: #### L [facility] ####[facility] [address] [place], [place] [address]UsDr. Ryan Francisco CBC AUTO DIFFon 04-04-2022 BASO # 0.0 103/ul Normal 0.0-0.1 [facility] Comment on above: Performed By: #### C BC #### [facility] [address] [place] [address] Dr. Ryan Francisco Basophils/100 WBC (Bld) 0.3 % Normal 0.2-2.0 [facility] Comment on above: Performed By: #### C BC #### [facility] [address] [address] [address] Ryan Francisco EO # 0.1 103/ul Normal 0.0-0.7 [facility] Comment on above: Performed By: #### C BC #### [facility] [address] [place] [address] Dr. Ryan Francisco Eosinophils/100 WBC (Bld) 1.7 % Normal 0.9-7.0 [facility] Comment on above: Performed By: #### C BC #### [facility] [address] [place] [address] Dr. Ryan Francisco Erythrocyte distribution width (RBC) [Ratio] 12.7 % Normal 11.0-15.0 [facility] Comment on above: Performed By: #### C BC #### [facility] [address] [place] [address] Dr. Ryan Francisco Hematocrit (Bld) [Volume fraction] 39.7 % Normal 36.0-48.0 [facility] Comment on above: Performed By: #### C BC #### [facility] [address] [place] [address] Dr. Ryan Francisco Hemoglobin (Bld) [Mass/Vol] 13.4 g/dL Normal 12.0-16.0 [facility] Comment on above: Performed By: #### C BC #### [facility] [address] [place] [address] Dr. Ryan Francisco IG # 0.03 10e3/ul Normal 0.00-0.03 [facility] Comment on above: Performed By: #### C BC #### [facility] [address] [place] [address] Dr. Ryan Francisco IG % 0.5 % Normal 0.0-0.5 [facility] Comment on above: Performed By: #### C BC #### [facility] [address] [place] [address] Dr. Ryan Francisco LYMPH # 1.6 103/ul Normal 1.2-3.8 [facility] Comment on above: Performed By: #### C BC #### [facility] [address] [place] [address] Dr. Ryan Francisco Lymphocytes/100 WBC (Bld) 27.1 % Normal 20.5-60.0 [facility] Comment on above: Performed By: #### C BC #### [facility] [address] [place] [address] Dr. Ryan Francisco MANUAL DIFF REQ NO Normal [facility] Comment on above: Performed By: #### C BC #### [facility] [address] [place] [address] Dr. Ryan Francisco MCH (RBC) [Entitic mass] 29.6 pg Normal 26.7-34.0 [facility] Comment on above: Performed By: #### C BC #### [facility] [address] [place] [address] Dr. Ryan Francisco MCHC (RBC) [Mass/Vol] 33.8 g/dL Normal 29.9-35.2 [facility] Comment on above: Performed By: #### C BC #### [facility] [address] [address] [address] Ryan Francisco MCV (RBC) [Entitic vol] 87.6 fL Normal 81.0-99.0 [facility] Comment on above: Performed By: #### C BC #### [facility] [address] [address] [address] Ryan Francisco MONO # 0.4 103/ul Normal 0.3-0.8 [facility] Comment on above: Performed By: #### C BC #### [facility] [address] [address] [address] Ryan Francisco Monocytes/100 WBC (Bld) 6.7 % Normal 1.7-12.0 [facility] Comment on above: Performed By: #### C BC #### [facility] [address] [place] [address] Dr. Ryan Francisco NEUT # 3.7 103/ul Normal 1.4-6.5 [facility] Comment on above: Performed By: #### C BC #### [facility] [address] [place] [address] Dr. Ryan Francisco Neutrophils/100 WBC (Bld) 63.7 % Normal 43.0-75.0 [facility] Comment on above: Performed By: #### C BC #### [facility] [address] [place] [address] Dr. Ryan Francisco Platelet mean volume (Bld) [Entitic vol] 9.9 fL Normal 9.5-13.5 [facility] Comment on above: Performed By: #### C BC #### [facility] [address] [place] [address] Dr. Ryan Francisco PLT 421 103/ul Normal 150-450 [facility] Comment on above: Performed By: #### C BC #### [facility] [address] [place] [address] Dr. Ryan Francisco RBC 4.53 106/ul Normal 4.20-5.40 [facility] Comment on above: Performed By: #### C BC #### [facility] [address] [place], [place] [id number] Dr. Ryan Francisco WBC 5.8 103/ul Normal 4.0-11.0 [facility] Comment on above: Performed By: #### C BC #### [facility] [address] [address] [address] Ryan Francisco FREE T4on 04-04-2022 Free T4 [Mass/Vol] 0.99 ng/dL Normal 0.76-1.46 [facility] Comment on above: Performed By: #### F T4 #### [facility] [address] [address] [address] Ryan Francisco TSHon 04-04-2022 TSH 3.086 uIU/mL Normal 0.358-3.740 [facility] Comment on above: Performed By: #### T SH ####[facility] [address] [place], [place] [address]JxDr. Ryan Francisco US PELVIS AND TRANSVAGon US [...] by: LUCHO MIXON Date: 2022-04-04 16:38 Normal [facility] Auth for Release of Medical Recordson 12-20-2021 Auth for Release of Medical Records [id number]# 1.00CD:[address] [facility] Coding Summary.on 08-22-2021 Coding Summary. CD:[id number] Gh0bWw+PGhlYWQ+PE1FV MMeD97eaGZzqY4TT1bMJ V8FKBJKDMQUTN0BFS2le KI7AKggG7WoiyNj GcwsdAQbUW13QGo7UMZ7 aFcgTUgwgR0nzGLwW2v0 XzEnOX28gL10QZwiWRJd TdS1OcDmiqkiiLKo T5eoXiGffACqStn+PHRh YmxlIHdpZHRoPScxMDAl IsMvvTpaVH7oSz1vRRKq LWNvbGxhcHNlOiBj b0ikUMGlKDjdZV8grLbv U5AsyFW0ORQnl6r4Rx27 dHI+DTCbOXD7tAvoCKdz s474DnTij3ujFMJ1 pFEbZLdcWFB2H23wg7Z8 OCYjHQWoVKI9jYU7tC4m lOwvrskpW3KtxIPdQdV0 AWH8uBGdqT8foJfj zykgvV9oQef+C54VOW0P NFQAYX0DXlu2C1OmTobs dHI+VV04ILRoBF83bZSa pSPvy1ryyPs2BkTd EYHhHJG4iZilTCzas7Fb NKCyU69wnFXqb3X1BBXb xWxvgFMuXmDgcWH6vZ4a USlhxhmsj1aojous Beoqi9rree34zF96C02w RCliOCJlHLD9QVJnQKDl hAoopn0xvH8aMk5+IDxj p5ldt4wsoSt5AgAr LJHoteTbcWhoNFN3l2Oc Pj82W4LgxDjbs6LwZab5 wn98jHQtn4X5kWN6VRxp JIDvxG7cLJflJdZ2 SVHoYaNrhB67cLHdOWjv Mj0kbVynjLjaKH6pJYUp sxpnCNPsyX1gMDJoxDNe tRjxHW1pILDhlrhu v914BiEqCSY0DHXwkCSy S3DsiY8dNaJhMEIoYOJm O8JepXWjNRthN352QLby CkI2CUDblzSbV4Hp PWDhhVdjSnL1m0I6Jj3D h4SsjylzNTG1XIgyWUXf LcD6AsJcFtT6P4NgWvj3 MXYbsTelIG6tE0Tl URKbkfhsyggktIJ9YYLh TOQzdR72cCYzQDsfQw4g p1P4j942KSIzAISsnH36 Bx3izZjnCBIhdVYY eG9bwypdb7ulrxunAfGd LHQkEDp0SAf5TOWaqQzr SiArGAQ6HvE1KNF8qMKn oM6pjWvhvyhtpA3l Oyc+P86huH3eFKN9URL0 sbnnAEWwmhYiIA73NO58 V0VbTxumcCMvxFQ+PGRp rcFbtLppLV3zJaTt y2hda5WpEEvuY8EjIWCi EUwfRmf1JPXaGZQ2wJH5 gO8dOAQrCRdki0W5fNA3 N2TxhbWosp5zu0gt MCTaADqvW87fhJXks1F3 EXYavQF3JBYnbWveMmDm fA32Mww+BGUvdYeaw3Vp Tiovx3ksf4xqhNj7 IjMwJSIgdmFsaWduPSJ0 i3ObJc71I14lAScfOKPo MCAmSUApCMYsfSijxw3m lS6qVs3+PGNvbCB3 mYH9cV3lDELoQuS0PUeb L667JsPdjCNkQgisc5nf c4kddPq2YlFoXRQyreOd rIqlWME1i6YjYe79 C06rPQlfBIYrROEaOOTk CAOqeQrnqw3odI2bQi0+ WO3wg9fqbo40gG18zPR+ WVZvWNY7eFprTXdw WHAxhL3jNOzoJlT8GZRb ItUjfE21mFUsLZsnAj8j qRaobBqyVP3nWNRsaebe j750AwHml5vySFSm lGJcZCvoODM6S18av0B7 LEYwROLlBLM1vNT0mV0f bGlnbjogbGVmdDsgdmVy qLeaCJvwMCsrY350 IHRvcDsnPlBhdGllbnQg NxUqOGf7T9UeXkd5ITMi oZtsYV2jlEEpBEfeTl0o kIdudGpmJY2dPSRg greqm580UmQfb8plUGQy vRPjOHzhOJG8J99qh6N0 MVIsPENkFVM9vJI2dG8u bGlnbjogbGVmdDsg ezFgeFtzMXzzJWahF752 IHRvcDsnPkJpcnRoIERh dAA6RP87DD58kCKek7O7 vZZ8S6ChBGAfgaet srqacYC4QRAuTILjyC45 Ot5qmIilDs8nEKOpQGG9 OROncMTzY2CyiX0eJeBy EFBrUNVkK1FxhMRv FJjpD917CXdhNqW1ZIBr ixMxA2DjOHMkxHdgEnJ6 p3N4Cs0YD4G7LW80DC22 vJMvi0N5xGA1Q2Qz EZItmfukkmzgySA6VYGv VXUyzD11Ab6ffGxjXn9m CVThJTK9NNPbtEJoI7Hm uE9sHjPsKTLxMFWh N4XmqRUdELkhI223OVpl VgB9ZCSqrtLwB1ErOILs vWppZdT0c6H3Qs7ISRb5 UD95LQ70kBArx4F0 fPZ4N5CnNGRpllvrmmtw fPD9SIEyTDOycA86Jb1w nXxrQo2dXQZtPBZ8IHLr lNOaL7MexA0nPiCn WIOwNXTxP8CszDGbOQlb Y709RMuoTaE3AKTrtjLp Y5NfTPXieSgkHwW3l1J0 Bw0LTIHsPD77AAR1 nTK4DJ05IU17U8DsVpyu dGFibGU+PHRhYmxlIHdp ZHRoPScxMDAlJyBzdHls NY4tFk6hJHJbQOYz qSjmsQPiIoXjg4uqTWYe JEthVF7hhKgsD9KsjQJ1 EXOsi2e0Kf32F68eT1Gk dXA+IBCtmFE2oEA5 lS9uGmVcJzC0AAbcJ746 SoNkiCXnUsijs3hoz1ep wRb2DfL8SGSmabFlbZnc AQM9c8KsKi52K10w IHdpZHRoPSIxNSUiIHZh wReowe9lpA7rHl6+PGNv tXO1fXW8vO8xMfYvXpY3 FNcyN356MtKwpJAq Dovye5xvy6pbgNb6KbTt EQOhygMztTvhEQH9t9Iq Pm00P4VcwEebm5InVoe9 ni91oASvv5G0nSP9 I4AqPCEytmsjaAVcrZtn QT3xMATvptutGSDbcN5l OLMsK4s1YxFsHdZ2NQgm R3PhclT4NDJmcUFo IBajLGX7P60lm8O1OGMb EPWwGPA0dCX6sE7usVdw bjogbGVmdDsgdmVydGlj CHzgXChpX617QYCj nLbuIULzeL0oQIUtyICh qXudKJ0fSXZlgtxfPgpE WCMaRYlPWBVDOI48BR70 sMQqz4A5eYV3C9Ym EVYbbrcwdhvpyUE6PRPm ZKAsdC65eUBhGVlxGf2x p9V9z641BWOhOUEjgK83 Ga6lhXllSJPsgURW pK4jokumf2bcemrhUkXc LXXlMPo0XJm5MMFigHzz AzMrJPJ3KaD4ILR7fVEf fK0uhLmagrvxkM5u Oyc+GEBxQyxlAOk8XUmh dGQ+JUXvEHJ4fNqlQJxx ETEcwY0yGNTkS5l8BdBc UuM3CXkvO5ThPQMk jcpeUr86nO3hBrDeLpM9 ZEntS3HunvM7AUOcjYTt WKuzHAK1R95xk2U7OQFx VRHaLKT9mBF7gL8n bGlnbjogbGVmdDsgdmVy bHmgGQelRAkrK960EMXa mRqnEaBiRWvoNETsGS14 RY33sPEpd3J7mYT3 N7ZeHKGgniumbgtsiDP7 MLFnNMCmlB28ySPpGEon Mg2ln4U3m288DBMdKAHt hO58Ph5pnDhcMFNy gQTCwN3zguaxl1ssvwie GdQiJAHwRIe2OJp9IRJl cXpxLqWlBDM4DqL4RSC8 lHRqoZ5ngZlvfbxz qF2tRqa+YzDeEFvcHS27 VB39xJMxe0X4jEC5I1Wa TWNcgrpufbvhiTJ8RPWf UBFomQ03rMExOYta Qk0nc2Z4s237AVIdUVOy oA25Aq4lrVmeMTLsiPFE fM6amdtzb1vurddpQiZf ZXLmLPl6QXs0QRMz xSwtRyUzPII7LaY8YMW1 qORlmP3qpZscjxtayR1c Oyc+Y7Q3fEQ6wFCjvZga dGQ+BH51mn29K4Om KfkpXfw4IHMjKCO2mHR9 fW4qYIWyNOxhr4U6iOL6 M4XkfpLphp8jl1cmIVBo SOntU04jqAKxt3F4 OWRukSC4IVMxrUlqNoUo nX11Nue+QHWfcCuln6Ar Jyghz9jfq3rkuEm3OmUt JSIgdmFsaWduPSJ0 r5EiYo20F63iKJiwBHGz XJPmJFLqSRTatSecij8g rY7tFb4+TDYilIG4qES1 cZ4pIdNjYpS5QUrd N389LhOmpIUhHakdh7ui c9seoPy7IqKdQPSaxzZr wIbaWQR9j3ZdWz97D8Xz uEsze9ZqSsa2sa35 pDTuc8X6iGR3G2LcTMAq sifdiXCtjFhzTH5jXDDp pogyYABljM6qGKJxC4g9 DiPqEoK8HYfpS1To sfU0HYVwbXJvNOHauRVT jW0essbun5fkrnepWvFy KXMqXYg0JOy5KHCfzDca ShUrYCA0AsX2EZM1 oTShfR5obUgiafntnN3o Oyc+CCs3z0hojFPoFL7t sNM4PR54WD64gJCpq8H6 jLK3L0WgYOEmwkqi ndpboBO4ZHTrWVBfbU75 Lv2hwTlfYn4mXJNuNSX2 YTMwdLZvQ1QvlN6qZfQl OKBgGOYoE6MujPQt UGhbG315JJhcQlB8HDOy zkXyZ4OyXTLuaQviEiK6 k0O8Ef0HJM51KF89UM88 kOMmm2Q0tGE4Y9Tz CSQidnzvrrbqvYE2BVHb NVCylU66Pz7kvSxfLs6d PIHyJCF1GICscWXlK6Hh hG7uDsYzXFFjYKSp X7BnvJSpHWofM720MNbn VsX2BVXxkeJpR9DqVTHm jBalBrL0n1L2Tg1QDa78 RB17VQ80hSLfl8Q8 zOZ2Z9RmEYQsrzrmiefo mQT4ELKtYKJsmR97Ou1i oTxzZz4eKBHeWTX3RVOv zLPeI6QivG0hYmOg MYLhGYSkF2VnsZUoPCjo F232GXccZcO3LSFxxgSd H9QdWTUfrTpoPaD1i9T3 Ln1OBTuajaq5V5Gb PjwvdHI+SL33BZMaGL46 fVHhpFRha0ptnZz1OtNj NTJnVGE8vJzuDCwvu7Xj XTFbL32foQNao8D5 IGNv (more content not included)... [facility] Coding Summary. CD:[id number] Gh0bWw+PGhlYWQ+PE1FV RXiN99onYYigS0QA2qSU G1UQBHFNONDVA3JIN0hr OL0ACmlG0StpbXg HtxpqMAxQT77AVa6IRC2 kYfeRDbrhS9jgNJoE8y7 XbQaMA41eR33FMgzFQPe LxO4VoNomjgjxIOk H6cpJlYujUHmMam+PHRh YmxlIHdpZHRoPScxMDAl LcTgiGqiWK4bZq9cDHFv LWNvbGxhcHNlOiBj c3zrDGKlZGesLJ4dmGrk U3TibCK4NZKac5p2Pi99 dHI+DDWcVYG0zEhjYXou y940PmTji1xjKAT0 mVPgJHnyGCD2E14df5K1 LVZdOCHjLPI0jJC2aG1q yDhhjcxgF6WlvDWaIxV8 HVH9kZYbrY7jhCzp uzsgjU9jIyt+H41FZS3G LGHCJP2NUop1S9JpJnhj dHI+OW42WSPeGJ61jUMf zCClo0itoMc2DoQx OEVdJKJ2xThpOAuwg7Bg LTIwI92woKWtu9X3SAFh jYmrkDKtNwIrgNA0lV6a HRawcskrp8vibtxd Nkrmw8hrta92wB51V40l DNysWVWcPHC9ENFhSOCe cUxugj0uuF5hAi9+IDxj c8omj1djdBl2RhFb HRIsbiLiyGjrMXP2t6Bg At21D8PjxWeci0MdVxx9 pf72zBLia7X4bSW3OUtt YBUdkU1xIHraZfF8 OFYbPhVatS00dPVlUJun Lr1frQcfnPyeGS9kZEGr nixoSXAuyC7hZBLatTQs aGkwGU1fCQMxadgp t935SfIgMOM9UKUcgAYk C5UnzF8gOoFyERUrOOSf Z6QorZBrWChdQ591BCii WpU5TSAlvpWtH8Pf KQKsaUvfIhF1o1Y4Rq3Y c4QhoisqJGZ0XUtzMCEz NyK2BpPtQzP1H3SiYap9 GYNcqLfpJV6yR3Hd NBQmerbtvomfsDA8NKHm OSRbpL03vALuRChjRn3f v6P5m581JXCwQMYdyY51 Wn2vtLkrIOMphZFV kR8vhurok7wdrtrqZmLp ILInEQk7MHw8FAHgvNkz HlWiVPG6RiP7DHG3jNVv cM6ltWkjxkzzrX3i Oyc+H12tdR2hJTW3GOS5 basdQGWzkbMsXY82ZI39 X5JeBinkwYZdgNB+PGRp cxSumVtbQS6yWrTj u1gbt6GiINhhT0WwQTBp JDwyXhb0GTJiWGZ4uKD9 rJ4xTKSkRTgyw2V3tED9 Z9TbchTzzi3ea3yo TBIdDIzwW69scKXdy9S3 CBFmsLR6TLKpgSmsBhCp gC55Yfo+WOYyfKejc8Hz Ghuax4ttt0vedUy2 IjMwJSIgdmFsaWduPSJ0 h9DnPw88T24cNMkcWMZd SYQgEQZwEAWdnDfdor6u eD2mNj1+PGNvbCB3 zPH5qL5oMFMtKcY3HKuh R340GtHsvOPfHjaeo0su t9crvQr6UcDyYAXknnNi lPqsNGO1l9KdJq08 O73hRUcqJCCwKXVvZQGy POFbgAegmq2zcH2kUz1+ XG4ws9guaa56qU93zJR+ UMWpFOM7wCzqCGcs BARhsQ4aWDldNuE7OQBo VsQejY82gEFpNEdmFu8i jWrquDdeFU7bCOKkbgur g931RvAhd2zbWNPl uNOgUQkzJBI2W80ew0L2 WXHyRTNdHCJ2jXW2eT5i bGlnbjogbGVmdDsgdmVy jCwgIEqeFCdlE934 IHRvcDsnPlBhdGllbnQg YfDvOUj0Z7RdAox8JPKg cOrwLG0fuPCmACzkHy9v wMrjdYduAP4eERNe gigmq273GsCsp5ggKNGm zYQwAJlqQBJ5N82fw4K8 YAImCKZaKDB5tRW0vI7e bGlnbjogbGVmdDsg daRjuJxkPOpjOGaxU544 IHRvcDsnPkJpcnRoIERh nMM7UV80XS60fCNcm5Y8 uYO9R8LeBDTytdyg qtiazXD7XHWmBWVnrU38 Hy8ecJqyIf1wMYOcFFN7 AVVocDLcL7UgdV0fDzUv EGLvMSChW1ZwzPCw IEaxK824HSinBaK9GOJn skFoC0OrPRQbwCfqOmK2 n4A8Oc2ZS6N0XA36CR04 vBSeh9E0dAB7O1Gy ZJUqnykflntwnYQ9UFYv MLDkaG03Hh2sdEvyJh1j TREaECW9EZMnrAZmZ7Lg aN5eTwStZISeAYRz V6FlnKPbSAdkC948XBgh ShR9NYNeggXzM2YmBLYo sYfhIfY0t2E8Ie1UYSs1 OF08JB47lJAou4G9 sVP1F5SlMBKckfkjuuqa eOQ0VSIvSSIrnB40Ig8e cLukAe8pZXErQOK1WDAx mCMrQ1CiqF6gShQi PRNzVJQoN2QluOXfIXqg L088RHguLfF6MZTdpmIq Y2DiPCMxnRynBeT7t7N5 Re6ICSHtXR08SQW6 qGG4FP43BW15C0JtLwgm dGFibGU+PHRhYmxlIHdp ZHRoPScxMDAlJyBzdHls PZ1fUd7pDFYcPJQa uNiamPLwItQfu7jtPMFc QLlwZA3xsBwyB2IhxRY8 YHPyb5n8Os58H84mY7Gj dXA+PEMneUJ2qQU8 qM3wEjBiVmK9AFgiO516 OsDhxVNmHzrxa0lmo1ct iSr9WwC0LWIhmhVjfSth XKK8z0QcOl83U28k IHdpZHRoPSIxNSUiIHZh lGccbt0epY3xKe2+PGNv fKT4eYZ8nO5fSkFrZbN9 IDhrQ779WcHjrUIb Pczjl7dnz3uptLy1EpNr IUQpvcEajKxfLHU7w5Al Ms98I5HojQsji3FwOnr7 bu35uQWsy8X3bYI9 W0GaAPWglkzztIAtmHkk DW5lXXBagtytQRHaxH1f JCUpF6n1StPoDgK2BJuq F3XdzmV4DTGgcAWx VYgsYDG6K98dg8T7DGCv OIExCXO1vJG1bA9joEdx bjogbGVmdDsgdmVydGlj QRppBPhsM899EIWt gFqnTQJfzW3zCOVkyQNh sWtmCK5aIBBuutswGwlN AMOsKPpWMUNCLJ76HG21 kDIui9J2xMX3O1El TYQffwgilhzhfCZ7ALYl WTWgyW77zEHuFVsxAv0q d3K3f354JYBlZEUgfQ90 Uf9oaPfbZPYvtIZJ dO7ebtvnh9quohchNmFe OZPwUYz9BSz3LBNcrMac SaOwUHJ5BlH4JBL2xGOg qH2hsWmyaptbuG1f Oyc+JRSdIcxbRMu1TKhe dGQ+VKStPCK8dFvsGZvw GCFuhS2iARZgO4c9EzUy GhJ4TAioQ9KqZPUn ubhbPd00zL1sMkIvUrX2 ANkpC2LqwnR9IYMvnRZf JGrhPVU1T45tn8D4KUXx VRTeBAD4sWW5iI0l bGlnbjogbGVmdDsgdmVy oAhoUFmdWXjxR681AGNv sGyoDuIkKEijJXRpGW56 EP65eCPrw9E2sXW8 E5PuXFVchvtvcucnlDH1 GNFqQFAknI14aHQsXKco Nr4mt5N4v087NGAiJSWg yK90Gu9xrCloPKEv eNBFrL1hpaaoq1chtuwl DyEvGMZjWAp5ZLp6ZQNg yNfiJlCsQVU8NvL9MAB2 tSPlaI3ylQiffzmz bH7gGht+OqPmCJmmXJ04 DA73rNKhl4S9kXZ9J3Lo TTUeddegrdjzuFU3NHCo YHJapQ23cDJvLShe Xk0cf4V4o563GBKfCYQd yL62Mk4aoWplQRCtzKVK mB8gneslh0kzxtufQlFx VRUvTQq3QVe3XTVg fMrrHdXoXGH6YeI0AYJ2 iFLmvY0owHterhsqsX9s Oyc+LSKdPWKxc0Pzy0Fd CY72XY17D2AjYkvp dGFibGU+PHRhYmxlIHdp ZHRoPScxMDAlJyBzdHls SK5wPh1hDZZjZOKevGmt zQHlDsPfz5anMZHg FMmzTK4qhUbkG8PhkSA1 TOLdi2b6Oc22R79hL3Km dXA+QTFamYF4tEQ0iG0k LhGhDnK2QNwfQ777 XbTxvGWtYdrei2tog7km yHe7HjOgEQOssjMwzLip PQU5g6LtSj27M72iZMkg ZHRoPSIyMCUiIHZh pVinfs1exL8yYq4+PGNv aAG1yUK2tX1pMzYeOiX7 VCkqU700QgYsuIUfQoji H17gY7AacJH+PHRy Ndf3NUGpgWtoNL6niTSa XVhlNt0bEHH4EnKmAjTr VTroQ8PaELPgyrufrbhh hIR3JIQjYPWoyB27 Mm2brFgkVf4bOXMzVQV9 EVNfmEXcA8RtiS6fFqOc SNAhXUFuD1OwyGIiFSfc W436FJdlNkH6OPSp hrHcR3OcDGKvpJdqVzS7 s2S0Tu5HpUrckACrIT7c XtPiLKk6C1VkRir1OUYv sGviWY7pqDFpGUfr Hp4xiGcotSrvAX3nBNRb zseda975VcCvk4qaKDCb nXEbZAemXTI4T00ji2E4 YOCjOZKmPNK4gHO4 eV2sqBfvwrgyyRBksDqv mkFlwTvyBPqgGTcwU024 JCSkoRavInWJBgj0X7Zx Igu0PIRsySejAJ1r qSOlTBonZu5rvZbwxTzj DV5dNWZlankqw643DoGl i9myBWGuxIKyUFdeUOW4 J95vh2X7INSrJUZz OIH6fJF7xM5qxYlfzahl bGVmdDsgdmVydGljYWwt NPltU815GKXbbKywUr6I Vfc4Z8WtQhn3TZKp lZonRU3wrBMqKVmzSh0z zPqfrMnqNO0sWAOcdrsy f471MuOqs0xaCCIzpEDw OOaeCNV9N59hj0D5 PCEbFABcPKT1sPN3eD9w bGlnbjogbGVmdDsgdmVy bOlvQYfbBEgtK715VXUm cDsnPlBheWVyOjwv dGQ+ZV57kf27K9OkNipy Npx6OZBaVGX6hDR5hB6b MVTgRBdkz8T3rDR8U8Qo lqEzfm6dh4yeLDUu ZTog (more content not included)... Normal [facility] PAP [id number] 08-15-2021 Cytology report Cyto stain Doc (Cvx/Vag) Note Invalid Interpretation Code [facility] Comment on above: Result Comment: TEST S RESULT FLAG UNITS REF RANGE LAB Clinician Provided Cytology Information Source.............[employer] No. of containers..01 ThinPrep Vial DIAGNOSIS: 01 NEGATIVE FOR INTRAEPITHELIAL LESION OR MALIGNANCY. Specimen adequacy: 01 Satisfactory for evaluation. No endocervical component is identified. Performed by: 01 Sujey Engle Programming Engineer (ASCP) . 01 Note: Note 01 The [...] <-Panic Low,>-Panic High,A-Abnormal,AA-Critical Abnormal Performed at: [address] [address] Mar Rivera MD, Performed By: #### 1 [id number] #### [facility] [address] [place] [address] HPV 16+18+31+33+35+39+45 +51+52+56+58+59+66+6 8 DNA Probe+sig amp Ql (Cvx) Negative Invalid Interpretation Code Negative [facility] Comment on above: Result Comment: This nucleic acid amplification test detects fourteen high-risk HPV types (16,18,31,33,35,39,45,51,52,56,58,59,66,68) without differentiation. Performed at: [address] [id number] MD Nicole Manuel Performed at: =G [address] [id number] MD Nicole Manuel Performed By: #### 1 [id number] #### [facility] [address] [place] [address] Insulin Lvlon 08-11-2021 Insulin Qn 24.3 u[IU]/mL Invalid Interpretation Code 2.6-24.9 [facility] [facility] Comment on above: Result Comment: Perf ormed at: [address] [id number] PhD Archie Jha Performed By: #### 1 [id number] #### [facility] [address] [place] [address] Consent for Treatmenton 07-29 Consent for Treatment [id number] #1.00CD:[address] [facility] Glu Fastingon 08-10-2021 Glucose [Mass/Vol] 95 mg/dL Normal 55-[address] [facility] Comment on above: Performed By: #### 1 [id number] #### [facility] [address] [place] [address] Physician Orderon 08-10-2021 Physician Order [id number] 2#1.00CD:[address] [facility] PAP [id number] 08-09-2021 Collection Technique BRUSH-SPATULA Normal F [facility] Comment on above: Performed By: #### 1 [id number] #### [facility] [address] [place] [address] Gynecological Body Site ENDOCERVIX Normal [facility] Comment on above: Performed By: #### 1 [id number] #### [facility] [address] [place] [address] Physician Orderon 08-09-2021 Physician Order [id number] #1.00CD:[address] [facility] Gynecology Office/Clinic Not pratik 02-17-2019 Gynecology [...] Family History Family history is negative Normal [facility] Comment on above: Result Comment: Elec tronically Signed By: Shamika ISAACS, Kaley [email or web address]\Date and Time Signed: 02/17/19 12:09 EDT Gynecology [...] Family History Family history is negative Normal [facility] Comment on above: Result Comment: Elec tronically Signed By: Shamika ISAACS, Kaley Wilson\.br\Date and Time Signed: 02/17/19 12:09 EDT Vital Signs Date Time Vital Sign Value Performing Clinician Facility 09-08-2024 08:28-0500 Body mass index (BMI) [Ratio] 35.56 kg/m2 Earmark DO Work Phone: [facility] 09-08-2024 08:28-0500 Body weight 88.18 kg Earmark DO Work Phone: [facility] 09-08-2024 08:28-0500 Diastolic blood pressure 90 mm[Hg] myTips Work Phone: [facility] 09-08-2024 08:28-0500 Systolic blood pressure 132 mm[Hg] [employer] Work Phone: [facility] 08-27-2024 11:45-0500 Body mass index (BMI) [Ratio] 35.08 kg/m2 Immanuel Yobani DO Work Phone: [facility] 08-27-2024 11:45-0500 Body weight 87 kg Immanuel Yobani DO Work Phone: [facility] 08-27-2024 11:45-0500 Diastolic blood pressure 82 mm[Hg] Immanuel Yobani DO Work Phone: [facility] 08-27-2024 11:45-0500 Systolic blood pressure 122 mm[Hg] Immanuel Yobani DO Work Phone: [facility] 08-12-2024 11:08-0500 Body mass index (BMI) [Ratio] 34.93 kg/m2 Immanuel Yobani DO Work Phone: [facility] 08-12-2024 11:08-0500 Body weight 86.64 kg Immanuel Yobani DO Work Phone: [facility] 08-12-2024 11:08-0500 Diastolic blood pressure 80 mm[Hg] Immanuel Yobani DO Work Phone: [facility] 08-12-2024 11:08-0500 Systolic blood pressure 120 mm[Hg] Immanuel Yobani DO Work Phone: [facility] 07-20-2024 11:00-0500 Body mass index (BMI) [Ratio] 34.39 kg/m2 Immanuel Yobani DO Work Phone: [facility] 07-20-2024 11:00-0500 Body weight 85.28 kg Immanuel Yobani DO Work Phone: [facility] 07-20-2024 11:00-0500 Diastolic blood pressure 76 mm[Hg] Immanuel Yobani DO Work Phone: [facility] 07-20-2024 11:00-0500 Systolic blood pressure 122 mm[Hg] Immanuel Yobani DO Work Phone: [facility] 06-22-2024 14:31-0500 Body mass index (BMI) [Ratio] 34.2 kg/m2 Immanuel Yobani DO Work Phone: [facility] 06-22-2024 14:31-0500 Body weight 84.82 kg Immanuel Yobani DO Work Phone: [facility] 06-22-2024 14:31-0500 Diastolic blood pressure 78 mm[Hg] Immanuel Yobani DO Work Phone: [facility] 06-22-2024 14:31-0500 Systolic blood pressure 124 mm[Hg] Immanuel Yobani DO Work Phone: [facility] 06-15-2024 10:27-0500 Body weight 84.82 kg Cele Rodriguez MD Work Phone: [facility] 06-15-2024 10:27-0500 Diastolic blood pressure 88 mm[Hg] Cele Rodriguez MD Work Phone: [facility] 06-15-2024 10:27-0500 Heart rate 99 /min Cele Rodriguez MD Work Phone: [facility] 06-15-2024 10:27-0500 Respiratory rate 18 /min Cele Rodriguez MD Work Phone: [facility] 06-15-2024 10:27-0500 Systolic blood pressure 137 mm[Hg] Cele Rodriguez MD Work Phone: [facility] 05-25-2024 11:46-0400 Body mass index (BMI) [Ratio] 33.84 kg/m2 Immanuel Yobani DO Work Phone: [facility] 05-25-2024 11:46-0400 Body weight 83.92 kg Immanuel Yobani DO Work Phone: [facility] 05-25-2024 11:46-0400 Diastolic blood pressure 74 mm[Hg] Immaneul Yobani DO Work Phone: [facility] 05-25-2024 11:46-0400 Systolic blood pressure 118 mm[Hg] Immanuel Yobani DO Work Phone: [facility] 04-27-2024 10:35-0400 Body mass index (BMI) [Ratio] 33.75 kg/m2 Immanuel Yobani DO Work Phone: [facility] 04-27-2024 10:35-0400 Body weight 83.69 kg Immanuel Yobani DO Work Phone: [facility] 04-27-2024 10:35-0400 Diastolic blood pressure 76 mm[Hg] Immanuel Yobani DO Work Phone: [facility] 04-27-2024 10:35-0400 Systolic blood pressure 122 mm[Hg] Immanuel Yobani DO Work Phone: [facility] 03-27-2024 10:27-0400 Body mass index (BMI) [Ratio] 34.53 kg/m2 [facility] 03-27-2024 10:27-0400 Body weight 85.64 kg Nom Nurse [facility] 03-27-2024 10:27-0400 Diastolic blood pressure 70 mm[Hg] [facility] Nurse [facility] 03-27-2024 10:27-0400 Systolic blood pressure 120 mm[Hg] [facility] Nurse [facility] 01-02-2024 09:15-0400 Body height 157.48 cm [facility] 01-02-2024 09:15-0400 Body mass index (BMI) [Ratio] 33.9 kg/m2 [facility] 01-02-2024 09:15-0400 Body temperature 100.2 [degF] [facility] 01-02-2024 09:15-0400 Body weight 84.08 kg [facility] 01-02-2024 09:15-0400 Heart rate 115 /min [facility] 01-02-2024 09:15-0400 Respiratory rate 18 /min [facility] 01-02-2024 09:15-0400 SaO2% (BldA) [Mass fraction] 99 % [facility] Encounters Encounter Date Encounter Type Care Provider Facility Start: 09-09-2024 End: 09-09-2024 Clinisync Result Encounter Immanuel Yobani DO Work Phone: [facility] Unsolicited Start: 09-09-2024 End: 09-09-2024 Clinisync Result Encounter Immanuel Yobani DO Work Phone: [facility] Unsolicited Start: 09-08-2024 End: 09-08-2024 Bamboo flowsheet Immanuel Yobani DO Work Phone: [facility] Start: 09-08-2024 End: 09-08-2024 Bamboo flowsheet Immanuel Yobani DO Work Phone: [facility] Start: 09-08-2024 End: 09-08-2024 flow sheet Immanuel Yobani DO Work Phone: [facility] Comment on above: Third trimester preg etrrell; 33 weeks gestation of ; induced hypertension, antepartum Start: 09-08-2024 End: 09-08-2024 ambulatory IMMANUEL YOBANI Not Available Start: 09-02-2024 End: 09-02-2024 Clinisync Result Encounter [...] Result Encounter Immanuel Yobani DO Work Phone: [facility] External Department Unsolicited Start: 08-12-2024 End: 08-12-2024 Bamboo flowsheet Immanuel Yobani DO Work Phone: [facility] Start: 08-12-2024 End: 08-12-2024 Bamboo flowsheet Immanuel Yobani DO Work Phone: [facility] Start: 08-12-2024 End: 08-12-2024 flow sheet Immanuel Yobani DO Work Phone: [facility] Comment on above: 29 weeks gestation o f ; Third trimester ; Gestational diabetes mellitus (GDM), antepartum, gestational diabetes method of control unspecified; Encounter for in vitro fertilization Start: 08-12-2024 End: 08-12-2024 ambulatory IMMANUEL YOBANI Not Available Start: 08-05-2024 End: 08-05-2024 Clinisync Result Encounter Immanuel Yobani DO Work Phone: [facility] External Department Unsolicited Start: 08-05-2024 End: 08-05-2024 Clinisync Result Encounter Immanuel Yobani DO Work Phone: [facility] External Department Unsolicited Start: 07-20-2024 End: 07-20-2024 Bamboo flowsheet Immanuel Yobani DO Work Phone: [facility] Start: 07-20-2024 End: 07-20-2024 Bamboo flowsheet Immanuel Yobani DO Work Phone: [facility] Start: 07-20-2024 End: 07-20-2024 flow sheet Immanuel Yobani DO Work Phone: [facility] Comment on above: 26 weeks gestation [...] Cele Rodriguez MD Work Phone: [facility] Comment on above: 21 weeks gestation o f (Primary Dx); Chronic hypertension affecting ; In vitro fertilization Start: 06-15-2024 End: 06-15-2024 ambulatory PIEDAD Johnathon RODRIGUEZ [facility] Start: 05-28-2024 End: 05-30-2024 Clinisync Result Encounter Immanuel Yobani DO Work Phone: [facility] Unsolicited Start: 05-28-2024 End: 05-30-2024 Clinisync Result Encounter Immanuel Yobani DO Work Phone: [facility] Unsolicited Start: 05-27-2024 End: 05-27-2024 Chart abstracting Cele Rodriguez MD Work Phone: [facility] Start: 05-25-2024 End: 05-25-2024 Bamboo flowsheet Immanuel [...] Start: 01-02-2024 End: 01-02-2024 ambulatory [facility] Work Phone: Start: 01-02-2024 End: 01-02-2024 Patient encounter procedure [facility] [...] Date Procedure Procedure Detail Performing Clinician Start: 09-09-2024 US OB BPP W NON-STRESS Immanuel Yobani DO Work Phone: Start: 09-09-2024 ALL CBC WITH AUTO DIFF Immanuel Yobani DO Work Phone: Start: 09-08-2024 Urnls dip stick/tabl et rgnt non-auto w/o micrscp Immanuel Yobani DO Work Phone: Start: 09-02-2024 US OB BPP W NON-STRESS Immanuel Yobani [...] malign ant neoplasm of cervix Pap Smear [facility] Start: 06-15-2025 Tobacco Screening Tobacco Screening [facility] Start: 09-22-2024 End: 09-22-2024 Patient encounter procedure 09/22/2024 9:20 AM EST Routine [facility] [address] [place] [place] [address] Immanuel Hilton, DO [address] [place] [address] [place] [address] [facility] Start: 09-08-2024 End: 09-08-2025 Alanine aminotransferase [Enzymatic activity/volume] in Serum or Plasma ALT Lab Routine induced hypertension, antepartum Expected: 09/08/2024 (Approximate), Expires: 09/08/2025 [facility] Comment on above: Expected: 09/08/2024 (Approximate), Expires: 09/08/2025 Start: 09-08-2024 End: 09-08-2025 Aspartate aminotransferase [Enzymatic activity/volume] in Serum or Plasma AST Lab Routine induced hypertension, antepartum Expected: 09/08/2024 (Approximate), Expires: 09/08/2025 [facility] Comment on above: Expected: 09/08/2024 (Approximate), Expires: 09/08/2025 Start: 09-08-2024 End: 09-08-2025 CBC W Auto Differential panel - Blood CBC and differential Lab Routine induced hypertension, antepartum Expected: 09/08/2024 (Approximate), Expires: 09/08/2025 [facility] Comment on above: Expected: 09/08/2024 (Approximate), Expires: 09/08/2025 Start: 09-08-2024 End: 09-08-2025 Creatinine [Mass/volume] in Serum or Plasma Creatinine Lab Routine induced hypertension, antepartum Expected: 09/08/2024 (Approximate), Expires: 09/08/2025 [facility] Work Phone: Comment on above: Expected: 09/08/2024 (Approximate), Expires: 09/08/2025 Start: 09-08-2024 End: 09-08-2025 Lactate dehydrogenase [Enzymatic activity/volume] in Serum or Plasma by Lactate to pyruvate reaction Lactate dehydrogenase Lab Routine induced hypertension, antepartum Expected: 09/08/2024, Expires: 09/08/2025 [facility] Comment on above: Expected: 09/08/2024 , Expires: 09/08/2025 Start: 09-08-2024 End: 09-08-2025 Protein, urine, 24 hour Protein, urine, 24 hour Lab Routine induced hypertension, antepartum Expected: 09/08/2024 (Approximate), Expires: 09/08/2025 [facility] Comment on above: Expected: 09/08/2024 (Approximate), Expires: 09/08/2025 Start: 09-08-2024 End: 09-08-2025 Pt and ptt Pt and ptt Lab Routine induced hypertension, antepartum Expected: 09/08/2024, Expires: 09/08/2025 [facility] Comment on above: Expected: 09/08/2024 , Expires: 09/08/2025 Start: 09-08-2024 End: 09-08-2025 Urate [Mass/volume] in Serum or Plasma Uric acid Lab Routine induced hypertension, antepartum Expected: 09/08/2024 (Approximate), Expires: 09/08/2025 [facility] Comment on above: Expected: 09/08/2024 (Approximate), Expires: 09/08/2025 Start: 09-08-2024 End: 09-08-2025 Urea nitrogen [Mass/volume] in Serum or Plasma BUN Lab Routine induced hypertension, antepartum Expected: 09/08/2024, Expires: 09/08/2025 [facility] Comment on above: Expected: 09/08/2024 , Expires: 09/08/2025 Start: 09-08-2024 End: 09-08-2024 Patient encounter procedure [facility] Comment on above: Arrived Start: 08-27-2024 End: 08-27-2024 Patient encounter procedure 08/27/2024 11:40 AM EST Routine [facility] [address] [place] [phone] Immanuel Hilton DO [address] [place] [address] [facility] Start: 08-27-2024 End: 08-27-2024 Professional / ancillary services management 08/27/2024 11:00 AM EST Ancillary Procedure [facility] [address] [place] [place] [id number] [facility] Start: 08-12-2024 End: 08-12-2025 [...] mellitus screening Expected: 07/20/2024 (Approximate), Expires: 07/20/2025 [facility] Comment on above: Expected: 07/20/2024 (Approximate), Expires: 07/20/2025 Start: 07-20-2024 End: 07-20-2025 US for US OB SCAN FOR GROWTH Imaging Routine PCOS (polycystic ovarian syndrome) resulting from in vitro fertilization, antepartum Expected: 07/20/2024 (Approximate), Expires: 07/20/2025 [facility] Comment on above: Expected: 07/20/2024 (Approximate), [...] End: 06-15-2024 Patient encounter procedure [facility] Start: 05-25-2024 End: 11-23-2024 Alpha fetoprotein, maternal Alpha fetoprotein, maternal Lab Routine Second trimester Expected: 05/25/2024 (Approximate), Expires: 11/23/2024 [facility] Comment on above: Expected: 05/25/2024 (Approximate), Expires: 11/23/2024 Start: 05-25-2024 End: 05-25-2024 Patient encounter procedure [facility] Comment on above: Arrived Start: 05-05-2024 End: 05-05-2024 Professional / ancillary services management 05/05/2024 2:30 PM EDT Ancillary Procedure [facility] [address] [place] [id number] [facility] Start: 04-27-2024 End: 04-27-2025 US Pelvis transvaginal US OB transvaginal Imaging Routine Encounter for screening for cervical length Expected: 04/27/2024 (Approximate), Expires: 04/27/2025 [facility] Work Phone: Comment on above: Expected: 04/27/2024 (Approximate), Expires: 04/27/2025 Start: 04-27-2024 End: 04-27-2024 Patient encounter procedure 04/27/2024 10:20 AM EDT Routine [facility] [address] [place] [id number] Immanuel Hilton, [address] [place] [address] [facility] Start: 03-29-2024 COVID-19 Vaccine ( season) COVID-19 Vaccine ( season) [facility] Start: 03-29-2024 Influenza vaccination [facility] Start: 03-27-2024 End: 03-27-2025 ABO/Rh ABO/Rh Lab Routine Missed menses Expected: 03/27/2024 (Approximate), Expires: 03/27/2025 [facility] Comment on above: Expected: 03/27/2024 (Approximate), Expires: 03/27/2025 Start: 03-27-2024 End: 03-27-2025 Blood type and Indirect antibody screen panel - Blood Type and screen Lab Routine Missed menses Expected: 03/27/2024 (Approximate), Expires: 03/27/2025 [facility] Work Phone: Comment on above: Expected: 03/27/2024 (Approximate), Expires: 03/27/2025 Start: 03-27-2024 End: 03-27-2025 US Pelvis transvaginal US OB transvaginal Imaging Routine Missed menses Expected: 03/27/2024 (Approximate), Expires: 03/27/2025 [facility] Comment on above: Expected: 03/27/2024 (Approximate), Expires: 03/27/2025 Start: 2020 Screening for malign ant neoplasm of cervix Pap Smear [facility] Start: 2018 DTaP,Tdap and Td Vac cines (1 - Tdap) DTaP,Tdap and Td Vaccines (1 - Tdap) [facility] Start: 2017 Adult BMI Screening Adult BMI Screen ing [facility] Start: 2011 Depression Screening Depression Scre ening [facility] Start: 2011 Tobacco Screening Tobacco Screening [facility] Start: 1999 Screening for Chlamy leoncio trachomatis Chlamydia Screening [facility] Bacteria identified in Urine by Culture Urine culture Microbiology Routine Missed menses Ordered: 03/27/2024 [facility] Comment on above: Ordered: 03/27/2024 CBC W Auto Different ial panel - Blood CBC and differential Lab Routine Missed menses Ordered: 03/27/2024 [facility] Comment on above: Ordered: 03/27/2024 CHLAMYDIA TRACHOMATI S (GENITO/STI) CHLAMYDIA TRACHOMATIS (GENITO/STI) Lab Routine STD exposure Ordered: 05/25/2024 [facility] Comment on above: Ordered: 05/25/2024 Cytology Cervical or vaginal smear or scraping study Pap Smear Pathology and Cytology Routine Well woman exam with routine gynecological exam Ordered: 05/25/2024 [facility] Work Phone: Comment on above: Ordered: 05/25/2024 Hemoglobin A1c/Hemoglobin.total in Blood Hemoglobin A1c Lab Routine Missed menses Ordered: 03/27/2024 [facility] Comment on above: Ordered: 03/27/2024 Hepatitis B virus love rface Ag [Presence] in Serum or Plasma by Immunoassay Hepatitis B surface antigen Lab Routine Missed menses Ordered: 03/27/2024 [facility] Comment on above: Ordered: 03/27/2024 Hepatitis C virus Ab [Presence] in Serum or Plasma by Immunoassay Hepatitis C antibody Lab Routine Missed menses Ordered: 03/27/2024 [facility] Comment on above: Ordered: 03/27/2024 HIV-1/HIV-2 antigen/antibody combination immunoassay HIV-1 and HIV-2 antibodies Lab Routine Missed menses Ordered: 03/27/2024 [facility] Comment on above: Ordered: 03/27/2024 Neisseria gonorrhoea e DNA [Presence] in Unspecified specimen by BUCK with probe detection Neisseria gonorrhea DNA probe, direct Lab Routine STD exposure Ordered: 05/25/2024 [facility] Comment on above: Ordered: 05/25/2024 Reagin Ab [Presence] in Serum by RPR RPR Lab Routine Missed menses Ordered: 03/27/2024 [facility] Comment on above: Ordered: 03/27/2024 Rubella antibody, IgG Rubella an tibody, IgG Lab Routine Missed menses Ordered: 03/27/2024 [facility] Comment on above: Ordered: 03/27/2024 SURESWAB(R) ADVANCED VAGINITIS PLUS, TMA SURESWAB(R) ADVANCED VAGINITIS PLUS, TMA Pathology and Cytology Routine Vaginal discharge Ordered: 05/25/2024 [facility] Comment on above: Ordered: 05/25/2024 Payers Date Payer Category Payer Commercial Managed C are - PPO [employer] [id number] 2023 [facility] [id number] 2023 Unknown [id number] 2021 Private Health Insurance [id number] 2021 Unknown [id number] [id number]. [id number] 2021 Unknown [id number] 1999 Unknown [id number] 2.16.840.1.692425.3.579.2. 593 1999 Unknown [id number] 2.16.840.1.674683.3.579.2. 593 1999 Unknown [id number] 2.16.840.1.287364.3.579.2. 593 1999 Unknown [id number] 2.16.840.1.024967.3.579.2. 593 1999 Unknown [id number] 2.16.840.1.280200.3.579.2. 593 1999 Unknown [id number] 2.16.840.1.863529.3.579.2. 593 1999 Unknown [id number] 2.16.840.1.326613.3.579.2. 593 1999 Unknown [id number] 2.16.840.1.596126.3.579.2. 1286 1999 Unknown [id number] 2.16.840.1.529027.3.579.2. 1286 1999 Unknown [id number] 2.16.840.1.528831.3.579.2. 1259 1999 Unknown [id number] 2.16.840.1.319040.3.579.2. 1259 1999 Unknown [id number] 2.16.840.1.745120.3.579.2. 1259 1999 Unknown [id number] 2.16.840.1.360980.3.579.2. 1259 1999 Unknown [id number] 2.16.840.1.597328.3.579.2. 1259 1999 Unknown [id number] 2.16.840.1.570905.3.579.2. 1259 1999 Unknown [id number] 2.16.840.1.818684.3.579.2. 1259 1999 Unknown [id number] 2.16.840.1.118526.3.579.2. 1259 1999 Unknown [id number] 2.16.840.1.955494.3.579.2. 1259 1999 Unknown [id number] 2.16.840.1.470381.3.579.2. 9 1999 Unknown [id number] 2.16.840.1.622824.3.579.2. 1259 1959 Private Health Insurance [id number] 1959 Unknown [id number] Social History Date Type Detail Facility Tobacco smoking stat [facility] Unknown if ever smoked [facility] Work Phone: Start: 1999 Sex Assigned At Female F [facility] Start: 01-02-2024 End: 05-27-2024 Tobacco smoking status WIIS Never smoked tobacco [facility] Start: 01-02-2024 End: 05-27-2024 Tobacco use and exposure Smokeless tobacco non-user [facility] Start: 04-27-2024 End: 08-27-2024 Alcoholic beverage intake Ex-drinker (finding) [facility] Start: 01-02-2024 End: 06-15-2024 History of Social function [facility] Start: 01-02-2024 End: 06-15-2024 Tobacco use panel [facility] Start: 01-29-2024 [facility] Start: 11-26-2023 Gender identity Identifies as female gender (finding) [facility] Start: 05-27-2024 End: 06-15-2024 Alcoholic beverage intake Lifetime non-drinker (finding) [facility] Start: 1999 Sex assigned at Not on file P [facility] Start: 05-26-2024 Sex Female (finding) [facility] Medical Equipment Procedure Code Equipment Code Equipment Origin al Text Equipment Identifier Dates 1 strip by In Vi tro route Daily Use in the morning prior to breakfast, 1 hour after each meal for a total of 4times daily. [id number] Start: 07-20-2024 End: 08-19-2024 1 each by In Vit ro route Daily Use to check FSBS four times daily [id number] Start: 07-20-2024 End: 08-19-2024 Goals Date Patient Goal Desired Activity /State Personal health goal Clinical Notes 03-27-2024 to 09-08-2024 Chika Blackguerda, NURSING INSTRUCTOR - 09/08/2024 8:30 AM Gautam Peter, NURSING INSTRUCTOR - 08/27/2024 11:40 AM Abhijitbreanne Rossana, [facility] - 08/12/2024 11:10 AM ESTLissa Jose, [place] - 07/20/2024 10:20 AM EST Note Date & Type Note Facility 09-08-2024 History of Present illness Narrative Reason for Appointment: Patient ID: Amy Mario is a 24 y.o. female who presents for Routine Visit Patient presents today for Return OB appointment. MEDICATIONS Current Outpatient Medications Medication Instructions Alcohol Swabs (Alcohol Prep Pad) 70 % pads 1 Pad, Topical, Daily, Use four times daily to check FSBS. amoxicillin (AMOXIL) 500 mg, Oral, 2 times daily aspirin 81 mg, Oral, Daily BD [employer] misc 1 each, Does not apply, As needed Blood Glucose Monitoring Suppl (D-Care Glucometer) w/Device kit 1 kit, Does not apply, Daily, Use four times daily to check FSBS. In the morning prior to breakfast & 1 hour after each meal for a total of 4times daily. Continuous Glucose Cokeman (FreeStyle Jenise 3 [place]) device 1 each, Does not apply, Every 14 days Continuous Glucose Sensor (FreeStyle Jenise 3 Sensor) misc 1 each, Does not apply, Every 14 days Multiple Vitamin (multivitamin) tablet 1 tablet, Daily terconazole (Terazol 7) 0.4 % vaginal cream 1 applicator, Vaginal, Nightly ALLERGIES Allergies Allergen Reactions [place] Flavor [[place] Oil] Latex Hives, Itching, Rash and Swelling [...] nursing note reviewed. Exam conducted with a nurse advocate present. Vitals: Estimated body mass index is 35.56 kg/m as calculated from the following: Height as of 01/01/24: 5' 2 . Weight as of this encounter: 194 lb 6.4 oz. BP: 132/90 No LMP recorded. Patient is . ASSESSMENT & PLAN ICD-10-CM 1. Third trimester Z34.93 POCT urinalysis dipstick manually resulted 2. 33 weeks gestation of Z3A.33 Return OB: Patient presents today for a routine obstetrics appointment. Patient is currently 33w5d . Patient states she is doing well but has complaints of being tired due to current . Patient has verbalizes frequent movement. labor precautions was discussed/given and patient was instructed to perform kick counts three times a day. Pt given PIH panel to have obtained, pt being started on labetalol 100mg BID. Orders Placed This Encounter Procedures POCT urinalysis dipstick manually resulted Follow Up: Patient is to return to office in 2 week for routine OB appointment. Documented by Chika Tracy LPN on behalf of: Immanuel Hilton DO documented in this encounter [facility] 08-27-2024 History of Present illness Narrative Reason [...] apply, As needed Blood Glucose Monitoring Suppl ([employer] Glucometer) w/Device kit 1 kit, Does not apply, Daily, Use four times daily to check FSBS. In the morning prior to breakfast & 1 hour after each meal for a total of 4times daily. Continuous Glucose Cokeman (FreeStyle Jenise 3 [place]) device 1 each, Does not apply, Every 14 days Continuous Glucose Sensor (FreeStyle Jenise 3 Sensor) misc 1 each, Does not apply, Every 14 days metroNIDAZOLE (FLAGYL) 500 mg, Oral, 2 times daily, Do not drink alcohol while taking this medication Multiple Vitamin (multivitamin) tablet 1 tablet, Daily ALLERGIES Allergies Allergen Reactions [place] Flavor [[place] Oil] Latex Hives, Itching, Rash and Swelling [...] nursing note reviewed. Exam conducted with a nurse advocate present. Vitals: Estimated body mass index is [...] from yesterday. Patients insurance did finally approve [facility] Jenise and patient is waiting for monitor [...] Immanuel Hilton DO documented in this encounter [facility] 08-12-2024 History of Present illness [...] 1 tablet, Daily ALLERGIES Allergies Allergen Reactions [place] Flavor [[place] Oil] Latex Hives, Itching, Rash and Swelling [...] nursing note reviewed. Exam conducted with a nurse advocate present. Vitals: Estimated body mass index is [...] Immanuel Hilton DO documented in this encounter [facility] 07-20-2024 History of Present illness [...] mg, Oral, Daily ALLERGIES Allergies Allergen Reactions [place] Flavor [[place] Oil] Latex Hives, Itching, Rash and Swelling [...] Immanuel Hilton DO documented in this encounter [facility] 06-22-2024 History of Present illness [...] mg, Oral, Daily ALLERGIES Allergies Allergen Reactions [place] Flavor [[place] Oil] Latex Hives, Itching, Rash and Swelling [...] Immanuel Hilton DO documented in this encounter [facility] 06-15-2024 History of Present illness [...] Allergies: Allergies Allergen Reactions Latex, Natural Rubber [place] Meds: Prior to Admission medications Medication Sig [...] other morbidities. Based on the available evidence, [facility] recommends treatment with antihypertensive therapy for [...] preeclampsia prevention as is recommended by the [place] [employer] Committee Opinion No. 743. [...] contact me if you have any concerns. eCle Rodriguez MD, FACOG (she/hers) Maternal- Medicine [facility] [address] [facility] [address] [place] [address] This document was created with [employer] technology. Though I make every effort to review the dictation as it is transcribed, on occasion the spoken word can be misinterpreted by the technology leading to inappropriate words, phrases, or sentences. This note is addressed to the requesting provider as a consultation for clinical guidance. Specific medical abbreviations are occasionally used and those are generally approved by the [place]?Board of?Obstetrics and?Gynecology?as well as?Kenzie croft abbreviations. The above plan of care was based solely on the diagnoses for which a consultation was requested. ?More frequent testing may be indicated based on her other medical/obstetrical conditions. The management of other or medical conditions is beyond the scope of requested consultation and will continue to be followed by the primary preschool assistant or primary care provider. Note to patient: [...] IVF Have you been seen here at [facility] in a previous ? N/a Recent ER visits or hospitalizations? no Bring blood sugar log or meter with you today? (Please bring them with you for every visit at [facility]) no Flu vaccine (May-September)? no Any concerns that you would like me to mention to the provider today? no documented in this encounter [facility] 05-25-2024 History of Present illness Narrative Reason [...] mg, Oral, Daily ALLERGIES Allergies Allergen Reactions [place] Flavor [[place] Oil] Latex Hives, Itching, Rash and Swelling [...] nursing note reviewed. Exam conducted with a nurse advocate present. Vitals: Estimated body mass index is [...] Immanuel Hilton DO documented in this encounter [facility] 04-27-2024 History of Present illness [...] mg, Oral, Daily ALLERGIES Allergies Allergen Reactions [place] Flavor [[place] Oil] Latex Hives, Itching, Rash and Swelling [...] nursing note reviewed. Exam conducted with a nurse advocate present. Vitals: Estimated body mass index is [...] IVF . Patient to also have [facility] referral for IVF and Level II [...] or undercooked meat, and stay away from [facility]. Patient has been consulted regarding any further do's and don'ts of . Patient voiced understanding and all questions and concerns were answered. Orders Placed This Encounter Procedures POCT urinalysis dipstick manually resulted Follow Up: Patient is to return in 4 weeks for routine OB appointment. Documented by Esperanza Peter LPN on behalf of: Immanuel Hilton DO documented in this encounter [facility] 03-27-2024 History of Present illness [...] Procedure Laterality Date TONSILLECTOMY Allergies Allergen Reactions [place] Flavor [[place] Oil] Latex Hives, Itching, Rash and Swelling [...] or undercooked meat, and stay away from [facility]. Patient has also been advised to [...] Healthcare Evaluation note No assessment inform ation [facility] Work Phone: Evaluation note Diagnosis Well woman exam with routine gynecological exam Routine gynecological examination Second trimester state, incidental Vaginal discharge Leukorrhea, not specified as infective STD exposure documented in this encounter [facility]* Diagnosis 21 weeks gestation of - Primary Chronic hypertension affecting In vitro fertilization Encounter for assisted reproductive fertility procedure cycle documented in this encounter [facility]* Diagnosis Second trimester state, incidental 22 weeks gestation of Personal history of cardiac murmur Personal history of other diseases of circulatory system documented in this encounter [facility]* Diagnosis Missed menses documented in this encounter [facility]Evaluation note* Diagnosis 14 weeks gestation of Second trimester state, incidental Encounter for screening for cervical length documented in this encounter [facility] HealthcareEvaluation note* Diagnosis 26 weeks gestation of Diabetes mellitus screening Screening for diabetes mellitus Second trimester state, incidental PCOS (polycystic ovarian syndrome) Polycystic ovaries resulting from in vitro fertilization, antepartum Gestational diabetes mellitus (GDM), antepartum, gestational diabetes method of control unspecified Elevated glucose tolerance test Impaired glucose tolerance test documented in this encounter [facility] HealthcareEvaluation note* Diagnosis 29 weeks gestation of Third trimester state, incidental Gestational diabetes mellitus (GDM), antepartum, gestational diabetes method of control unspecified Encounter for in vitro fertilization Encounter for assisted reproductive fertility procedure cycle documented in this encounter [facility] HealthcareEvaluation note* Diagnosis Third trimester state, incidental 32 weeks gestation of documented in this encounter [facility] HealthcareEvaluation note* Diagnosis Third trimester state, incidental 33 weeks gestation of induced hypertension, antepartum Transient hypertension of , antepartum documented in this encounter [facility] HealthcareInstructionsNot on filedocumented in [facility] SystemInstructionsNot on filedocumented in this encounterPro[facility] SystemInstructions* Attachments The following attachments cannot be sent through Care Everywhere. * Preeclampsia ([place]) [facility] Purpose Family History No Family [...] and content) DATE CREATED AUTHOR 03/06/2019 [facility] DATE CREATED AUTHOR AUTHOR'S ORGANIZ ATION 12/21/2021 [facility] DATE CREATED AUTHOR AUTHOR'S ORGANIZ ATION 12/01/2022 [facility] DATE CREATED AUTHOR AUTHOR'S ORGANIZ ATION 06/17/2024 [facility] DATE CREATED AUTHOR AUTHOR'S ORGANIZ ATION 09/09/2024 [facility] Care Teams (unrecognized sec tion and content) Team Status: Active Member Role Status Dates Damon Stover DO Primary Care Provider Active Team Status: Inactive Member Role Status Dates Damon Stover DO Primary Care Provider Active Start: January 02, 2024 End: January 02, 2024 Teresa Sanchez APRN Attending Provider Active S tart: January 02, 2024 End: January 02, 2024 Clinical Laboratory Assistant Relationship Specialty Start Date End Date Akila Grant MD [address] [place] [id number] PCP - General Family Medicine 11/27/23 Clinical Laboratory Assistant Relationship Specialty Start Date End Date Akila Grant MD [address] [place] [address] PCP - General Family Medicine 11/27/23 Clinical Laboratory Assistant Relationship Specialty Start Date End Date Akila Grant MD [address] [place] [address] PCP - General Family Medicine 11/27/23 Clinical Laboratory Assistant Relationship Specialty Start Date End Date Akila Grant MD [address] [place] [phone] PCP - General Family Medicine 11/27/23 Clinical Laboratory Assistant Relationship Specialty Start Date End Date Akila Grant MD [address] [place] [address] PCP - General Family Medicine 11/27/23 Clinical Laboratory Assistant Relationship Specialty Start Date End Date Akila Grant MD [address] [place] [address] PCP - General Family Medicine 11/27/23 Clinical Laboratory Assistant Relationship Specialty Start Date End Date Akila Grant MD [address] [place] [address] PCP - General Family Medicine 11/27/23 Clinical Laboratory Assistant Relationship Specialty Start Date End Date Akila Grant MD [address] [facility] [place] [address] PCP - General Family Medicine 11/27/23 Clinical Laboratory Assistant Relationship Specialty Start Date End Date Akila Grant MD [address] [place] [address] PCP - General Family Medicine 11/27/23 Clinical Laboratory Assistant Relationship Specialty Start Date End Date Akila Grant MD [address] [facility] [place] [address] PCP - General Family Medicine 11/27/23 Clinical Laboratory Assistant Relationship Specialty Start Date End Date Akila Grant MD [address] [place] [address] PCP - General Family Medicine 11/27/23 Clinical Laboratory Assistant Relationship Specialty Start Date End Date Akila Grant MD [address] [facility] [place] [address] PCP - General Family Medicine 11/27/23 Clinical Laboratory Assistant Relationship Specialty Start Date End Date Akila Grant MD [address] [place] [facility] [phone] PCP - General Family Medicine 11/27/23 Clinical Laboratory Assistant Relationship Specialty Start Date End Date Akila Grant MD [address] [place] [facility] [phone] PCP - General Family Medicine 11/27/23 Clinical Laboratory Assistant Relationship Specialty Start Date End Date Akila Grant MD [address] [place] [facility] [address] PCP - General Family Medicine 11/27/23 Clinical Laboratory Assistant Relationship Specialty Start Date End Date Akila Grant MD [address] [place] [address] PCP - General Family Medicine [...] BE BASED ON THE PRIMARY CLINICAL RECORDS. [facility] [employer] [facility]. provides no warranty or guarantee of the accuracy or completeness of information in this document.
[2024-09-12 07:54] VITALS: BP 145/93; PULSE 148
[2024-09-12 07:57] VITALS: BP 145/93; PULSE 148
[2024-09-12 08:27] VITALS: BP 136/93; PULSE 108
== END 2024-09-12 08:47 | disposition home or self-care (01) ==
LOC: FBCO 06:33 → FBC 07:48
PROVIDERS: PCP Family Medicine; Visit Provider Obstetrics & Gynecology
DX: O99.283 Endocrine, nutritional and metabolic diseases complicating pregnancy, third trimester (principal); O13.3 Gestational [pregnancy-induced] hypertension without significant proteinuria, third trimester
CPT/HCPCS: 59025; 84156

== ENCOUNTER 2024-09-12 07:49 | Outpatient (REF) | payer BC, OTHER, SELFPAY ==
--- OUTSIDE RECORDS SUMMARY | 2024-09-12 07:52 | XMS_ITS | CCD ---
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 Name Role Phone YOBANI ., DR SMITH [...] DR SMITH Attending Unavailable ZULEIMA, DR CLEMENTINE [employer] Unavailable RUDY, DR AKILA Watson Primary Care Unavailable YOBANI ., DR SMITH Consulting Unavailable YOBANI ., DR SIMTH Admitting Unavailable YOBANI ., DR SMITH Attending [...] Latex Drug allergy (disorder) 0 hives [facility] (1 source) orange flavor Drug allergy (disorder) 0 [facility] (5 sources) Jeannette - fruit; Translations: [ORANGE] 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 4 anaphylaxis [facility] (20 sources) Latex 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 4 Hives, Itching, Rash, Swelling [facility] (20 sources) orange allergenic extract Drug Allergy 4 [facility] Work Phone: (1 source) [...] MCG/0.5ML injection 11/26/2023 03/27/2024 Discontinued Continuous Glucose Motor Route Carrier (FreeStyle Jenise [address] [place]) device (9 sources) Start: 08-20-2024 Continuous Glucose Motor Route Carrier (FreeStyle [place] [address] [place]) device Indications: Gestational diabetes mellitus (GDM), antepartum, [...] WITH AUTO DIFFon BASOPHILS ABSOLUTE AUTO 0 [facility] Basophils/100 WBC (Bld) 0.1 % Low 0.2 - 2.0 % [facility] Eosinophils/100 WBC (Bld) 0.7 % Low 0.9 - 7.0 % [facility] Erythrocyte distribution width (RBC) [Ratio] 13.4 % 11.0 - 15.0 % [facility] Hematocrit (Bld) [Volume fraction] 32.2 % Low 36.0 - 48.0 % [facility] Hemoglobin (Bld) [Mass/Vol] 10.6 g/dL Low 12.0 - 16.0 g/dL [facility] IMMATURE GRANULOCYTES ABS AUTO 0.06 High [facility] Immature granulocytes/100 WBC (Bld) 0.9 % High 0.0 - 0.5 % [facility] Interpretation and review of laboratory results Abnormal [facility] LYMPHOCYTES ABSOLUTE AUTO 1.4 [facility] Lymphocytes/100 WBC (Bld) 19.7 % Low 20.5 - 60.0 % [facility] MCH (RBC) [Entitic mass] 28.3 pg 26.7 - 34.0 pg [facility] MCHC (RBC) [Mass/Vol] 32.9 g/dL 29.9 - 35.2 g/dL [facility] MCV (RBC) [Entitic vol] 85.9 fL 81.0 - 99.0 fL [facility] MONOCYTES ABSOLUTE AUTO 0.5 [facility] Monocytes/100 WBC (Bld) 7.4 % 1.7 - 12.0 % [facility] NEUTROPHILS ABSOLUTE AUTO 4.9 [facility] Neutrophils/100 WBC (Bld) 71.2 % 43.0 - 75.0 % [facility] Platelet mean volume (Bld) [Entitic vol] 10.4 fL 9.5 - 13.5 fL [facility] TBH EO # 0.1 [facility] TBH PLT [address] [facility] RBC 3.75 Low [facility] TB WBC 6.9 [facility] US OB BPP W NON-STRESS on 09-09-[address] [address] Ultrasound Report Signed Patient: AMY MARIO MR#: [id number] : 2000 Acct:[id number] Age/Sex: 24 / F ADM Date: 09/09/24 Loc: US Attending Dr: Immanuel Hilton D.O. Ordering Physician: Immanuel Hilton D.O. Date of Service: 09/09/24 Procedure(s): US OB BPP w non-stress Accession Number(s): [id number] cc: Akila Grant M.D.; Immanuel Hilton D.O. The [place] [id number] Patient Name: AMY MARIO [facility]N: [facility]:[id number] date: 2000 Sex: F Assigned Patient Location: [facility] Current Patient Location: .MAIN Accession/Order Number: [id number] Exam Date: 09/09/2024 07:58 Report Date: 09/09/2024 [...] Signed By: 09/09/24 1132 DD/ 1130 TD/TT: Architecture Faculty Member: [facility] Radiology, Radiologist, MD - 09/09/2024 [place] [address] Ultrasound Report Signed Patient: AMY MARIO MR#: [id number] : 2000 Acct:[id number] Age/Sex: 24 / F ADM Date: 09/09/24 Loc: US Attending Dr: Immanuel Hilton D.O. Ordering Physician: Immanuel Hilton D.O. Date of Service: 09/09/24 Procedure(s): US OB BPP w non-stress Accession Number(s): [id number] cc: Akila Grant M.D.; Immanuel Hilton D.O. [place] [address] Patient Name: AMY MARIO MRN: [facility]:[id number] date: 2000 Sex: F Assigned Patient Location: [facility] Current Patient Location: ED.MAIN Accession/Order Number: [id number] Exam Date: 09/09/2024 07:58 Report Date: 09/09/2024 [...] Signed By: 09/09/24 1132 DD/ 1130 TD/TT: Architecture Faculty Member: [facility] Radiology Study observation (narrative) [facility] US OB BPP W NON-STRESS Ordered By: Radiologist Radiology on 09-09-2024 [facility] Work Phone: Urinalysis macro (dipstick) panel (U)on 09-08-2024 Bilirubin, UA Trace Negative - 4(70) +++ mg/dL [facility] Blood, UA Positive Negative - 50 Jimy/mcL [facility] Clarity, UA Clear [facility] Color, UA Yellow [facility] Glucose, UA Negative Negative - 2000(110) ++++ mg/dL [facility] Interpretation and review of laboratory results Abnormal [facility] Ketones, UA Negative Negative - 160(16) ++++ mg/dL [facility] Leukocytes, UA Positive Negative - 500+++ Mychal/mcL [facility] Nitrite, UA Negative Negative - Positive [facility] pH, UA 6 5 - 9 [facility] Protein, UA Positive Negative - 1999(20) ++++ mg/dL [facility] Spec Grav, UA 1.025 1 - 1.03 [facility] Urobilinogen, UA 0.2 0.2 - 12 mg/dL [facility] US OB BPP W NON-STRESS on 09-02-2024 [place] [address] Ultrasound Report Signed Patient: AMY MARIO MR#: [id number] : 2000 Acct:[id number] Age/Sex: 24 / F ADM Date: 09/02/24 Loc: US Attending Dr: Immanuel Hilton D.O. Ordering Physician: Immanuel Hilton D.O. Date of Service: 09/02/24 Procedure(s): US OB BPP w non-stress Accession Number(s): [id number] cc: Akila Grant M.D.; Immanuel Hilton D.O. [address] [address] Patient Name: AMY MARIO MRN: [facility]:[id number] date: 2000 Sex: F Assigned Patient Location: [facility] Current Patient Location: Accession/Order Number: [id number] Exam Date: 09/02/2024 08:03 Report Date: 09/02/2024 [...] M.D. Signed By: 09/02/24924 DD/ 1 TD/TT: Architecture Faculty Member: [facility] Radiology, Radiologist, MD - 09/02/2024 [place] [address] Ultrasound Report Signed Patient: AMY MARIO MR#: [id number] : 2000 Acct:[id number] Age/Sex: 24 / F ADM Date: 09/02/24 Loc: US Attending Dr: Immanuel Hilton D.O. Ordering Physician: Immanuel Hilton D.O. Date of Service: 09/02/24 Procedure(s): US OB BPP w non-stress Accession Number(s): [id number] cc: Akila Grant M.D.; Immanuel Hilton D.O. The [place] [id number] Patient Name: AMY MARIO MRN: [facility]:[id number] date: 2000 Sex: F Assigned Patient Location: [facility] Current Patient Location: Accession/Order Number: [id number] Exam Date: 09/02/2024 08:03 Report Date: 09/02/2024 [...] M.D. Signed By: 09/02/24924 DD/ 1 TD/TT: Architecture Faculty Member: [facility] Radiology Study observation (narrative) [facility] OB BPP W NON-STRESS Ordered By: Radiologist Radiology on 09-02-2024 [facility] Work Phone: US OB FOLLOW [...] 2164 gm / 4 lbs, 12 oz (7016-6137 gm) [place]lock Normal: 1953 gm (7304-5930 mg) [place] 80% for 32.0 wks ([place] [...] report is generated using voice recognition reporting ([employer]). On occasion [employer] erroneously drops words from the report or [...] UA Positive Negative - 4(70) +++ mg/dL [facility] Comment on above: small Blood, UA Negative Negative - 50 Jimy/mcL [facility] Clarity, UA Clear [facility] Color, UA Yellow [facility] Glucose, UA Positive Negative - 2000(110) ++++ mg/dL [facility] Comment on above: 100 Interpretation and review of laboratory results Abnormal [facility] Ketones, UA Positive Negative - 160(16) ++++ mg/dL [facility] Comment on above: trace Leukocytes, UA Positive Negative - 500+++ Mychal/mcL [facility] Comment on above: large Nitrite, UA Negative Negative - Positive [facility] pH, UA 6.5 5 - 9 [facility] Protein, UA Positive Negative - 2000(20) ++++ mg/dL [facility] Comment on above: 30 Spec Grav, UA 1.03 1 - 1.03 [facility] Urobilinogen, UA 0.2 0.2 - 12 mg/dL [facility] US OB BPP W NON-STRESS on 08-26-2024 [place] [address] Ultrasound Report Signed Patient: AMY MARIO MR#: [id number] : 2000 Acct:[id number] Age/Sex: 24 / F ADM Date: 08/26/24 Loc: [facility] 251-[address]: Immanuel Hilton D.O. Ordering Physician: Immanuel Hilton D.O. Date of Service: 08/26/24 Procedure(s): US OB BPP w non-stress Accession Number(s): [id number] cc: Akila Grant M.D.; Immanuel Hilton D.O. [address] [address] Patient Name: AMY MARIO MRN: [facility]:[id number] date: 2000 Sex: F Assigned Patient Location: [facility] Current Patient Location: [facility] Accession/Order Number: [id number] Exam Date: 08/26/2024 08:00 Report Date: 08/26/2024 [...] M.D. Signed By: 08/26/24 0858 DD/ TD/TT: Architecture Faculty Member: [facility] Radiology, Radiologist, MD - 08/26/2024 [place] [address] Ultrasound Report Signed Patient: AMY MRAIO MR#: [id number] : 2000 Acct:[id number] Age/Sex: 24 / F ADM Date: 08/26/24 Loc: [facility] 251-[address]: Immanuel Hilton D.O. Ordering Physician: Immanuel Hilton D.O. Date of Service: 08/26/24 Procedure(s): US OB BPP w non-stress Accession Number(s): [id number] cc: Akila Grant M.D.; Immanuel Hilton D.O. The [place] [id number] Patient Name: AMY MARIO MRN: [facility]:[id number] date: 2000 Sex: F Assigned Patient Location: [facility] Current Patient Location: [facility] Accession/Order Number: [id number] Exam Date: 08/26/2024 08:00 Report Date: 08/26/2024 [...] M.D. Signed By: 08/26/2458 DD/ 5 TD/TT: Architecture Faculty Member: [facility] Radiology Study observation (narrative) [facility] US OB BPP W NON-STRESS Ordered By: Radiologist Radiology on 08-26-2024 [facility] Work Phone: Urinalysis macro (dipstick) panel (U)on 08-12-2024 Bilirubin, UA Negative Negative - 4(70) +++ mg/dL [facility] Blood, UA Negative Negative - 50 Jimy/mcL [facility] Clarity, UA Clear [facility] Color, UA Yellow [facility] Glucose, UA Negative Negative - 1999(110) ++++ mg/dL [facility] Interpretation and review of laboratory results Abnormal [facility] Ketones, UA Positive Negative - 160(16) ++++ mg/dL [facility] Comment on above: trace Leukocytes, UA Positive Negative - 500+++ Mychal/mcL [facility] Comment on above: large Nitrite, UA Negative Negative - Positive [facility] pH, UA 5.5 5 - 9 [facility] Protein, UA Trace Negative - 1999(20) ++++ mg/dL [facility] Spec Grav, UA 1.03 1 - 1.03 [facility] Urobilinogen, UA 0.2 0.2 - 12 mg/dL [facility] ALL CBC WITH AUTO DIFFon BASOPHILS ABSOLUTE AUTO 0 [facility] Basophils/100 WBC (Bld) 0.3 % 0.2 - 2.0 % [facility] Eosinophils/100 WBC (Bld) 1 % 0.9 - 7.0 % [facility] Erythrocyte distribution width (RBC) [Ratio] 13.2 % 11.0 - 15.0 % [facility] Hematocrit (Bld) [Volume fraction] 32.6 % Low 36.0 - 48.0 % [facility] Hemoglobin (Bld) [Mass/Vol] 11.3 g/dL Low 12.0 - 16.0 g/dL [facility] IMMATURE GRANULOCYTES ABS AUTO 0.07 High [facility] Immature granulocytes/100 WBC (Bld) 0.9 % High 0.0 - 0.5 % [facility] Interpretation and review of laboratory results Abnormal [facility] LYMPHOCYTES ABSOLUTE AUTO 1.6 [facility] Lymphocytes/100 WBC (Bld) 19.6 % Low 20.5 - 60.0 % [facility] MCH (RBC) [Entitic mass] 30.4 pg 26.7 - 34.0 pg [facility] MCHC (RBC) [Mass/Vol] 34.7 g/dL 29.9 - 35.2 g/dL [facility] MCV (RBC) [Entitic vol] 87.6 fL 81.0 - 99.0 fL [facility] MONOCYTES ABSOLUTE AUTO 0.6 [facility] Monocytes/100 WBC (Bld) 8 % 1.7 - 12.0 % [facility] NEUTROPHILS ABSOLUTE AUTO 5.6 [facility] Neutrophils/100 WBC (Bld) 70.2 % 43.0 - 75.0 % [facility] Platelet mean volume (Bld) [Entitic vol] 9.7 fL 9.5 - 13.5 fL [facility] TBH EO # 0.1 [facility] TB PLT [address] [facility] RBC 3.72 Low [facility] TB WBC 8 [facility] Urinalysis macro (dipstick) panel (U)on 06-22-2024 Bilirubin, UA Negative Negative - 4(70) +++ mg/dL [facility] Blood, UA Negative Negative - 50 Jimy/mcL [facility] Clarity, UA Clear [facility] Color, UA Yellow [facility] Glucose, UA Negative Negative - 1999(110) ++++ mg/dL [facility] Interpretation and review of laboratory results Abnormal [facility] Ketones, UA Positive Negative - 160(16) ++++ mg/dL [facility] Comment on above: 15 Leukocytes, UA Positive Negative - 500+++ Mychal/mcL [facility] Comment on above: small Nitrite, UA Negative Negative - Positive [facility] pH, UA 5.5 5 - 9 [facility] Protein, UA Trace Negative - 1999(20) ++++ mg/dL [facility] Spec Grav, UA 1.03 1 - 1.03 [facility] Urobilinogen, UA 0.2 0.2 - 12 mg/dL [facility] IGP,APTIMA HPV,AGE GDLNon AGE GDLN ACOG TESTING Note . [facility] Comment on above: TESTS RESULT FLAG UN ITS REF RANGE LAB Clinician Provided Cytology Information Source.............Cervix Other.............. No. of containers..01 ThinPrep Vial Age Algo ACOG Michelle... -25 08 FLAG LEGEND: L-Low Normal,H-High Normal,LL-Alert Low,HH-Alert High <-Panic Low,>-Panic High,A-Abnormal,AA-Critical Abnormal Performed at: 01 =G Andres [address] [place] [address] Mar Rivera MD, IGP, RFX APTIMA HPV ASCU Note . [facility] Comment on above: TESTS RESULT FLAG UN ITS REF RANGE LAB DIAGNOSIS: 02 NEGATIVE FOR INTRAEPITHELIAL LESION OR MALIGNANCY. FUNGAL ORGANISMS MORPHOLOGICALLY CONSISTENT WITH CARLOS SPECIES ARE PRESENT. Specimen adequacy: 02 Satisfactory for evaluation. No endocervical component is identified. An endocervical component is not commonly seen in the patient. Performed by: Judy Vera, Pinking Machine Operator ([facility]) . 02 Note: Note 02 [...] High,A-Abnormal,AA-Critical Abnormal Performed at: 02 [address] [facility] [address] [address] Mar Rivera MD, Performed at: =G - [facility] [id number] Global Marketing Coordinator: Mar Rivera MD, Phone: [phone] Performed at: [address] [id number] Global Marketing Coordinator: Mar Rivera MD, Phone: [phone] SPATULA-ALONE CERVIX [facility] AFP, SERUM, OPEN SPINA BIFID Aon 05-30-2024 AFP MOM 1.36 . [facility] AFP VALUE 55.4 ng/mL . [facility] COMMENT: Comment . [facility] Comment on above: Ivet Mobley , Ph.D., [facility] Director References: Available Upon Request. Multiples Of Median Cutoffs For AFP Elevations Del Rosario 2.5 Black 2.8 IDD 2.0 Twins 4.5 Abbreviation Definitions IDD - Insulin Dep Diabetes OSBR - Open Spina Bifida Risk For further inquiries contact [facility] at [phone]. This test was developed and its performance characteristics determined by [facility]. It has not been cleared or approved by the Food and Drug Administration. Performed at: [facility] [address] [place], [place] [id number] Global Marketing Coordinator: Kristina Carter [facility], Phone: [phone] GEST. AGE ON COLLECTION DATE 18.6 . weeks [facility] GESTAT. AGE BASED ON LMP . [facility] Comment on above: Recalculations are n ot recommended when gestational dating by LMP and ultrasound are within 10 days. INSULIN DEP DIABETES No . [facility] INTERPRETATION Comment . [facility] Comment on above: Interpretation: Scre [...] Customer Services to discuss available options. The [employer] recommends amniocentesis be offered to women age 35 and older. MATER[age] AT SARA 25.3 [age] [facility] MULTIPLE GESTATION No . [facility] OSBR RISK 1 IN 4034 . [facility] RACE . [facility] RESULTS Report . [facility] TEST RESULTS: Negative . [facility] WEIGHT 185 . lbs [facility] N N LMP [id number] [phone] N 1 Y 185 N N N N N White/ [facility] Urinalysis macro (dipstick) panel (U)on 04-27-2024 Bilirubin, UA Positive Negative - 4(70) +++ mg/dL [facility] Comment on above: small Blood, UA Negative Negative - 50 Jimy/mcL [facility] Clarity, UA Clear [facility] Color, UA Yellow [facility] Glucose, UA Negative Negative - 2000(110) ++++ mg/dL [facility] Interpretation and review of laboratory results Abnormal [facility] Ketones, UA Positive Negative - 160(16) ++++ mg/dL [facility] Comment on above: trace Leukocytes, UA Positive Negative - 500+++ Mychal/mcL [facility] Comment on above: small Nitrite, UA Negative Negative - Positive [facility] pH, UA 6.0 5 - 9 [facility] Protein, UA Negative Negative - 2000(20) ++++ mg/dL [facility] Spec Grav, UA 1.030 1 - 1.03 [facility] Urobilinogen, UA 0.2 0.2 - 12 mg/dL [facility] ALL CBC WITH AUTO DIFFon BASOPHILS ABSOLUTE AUTO 0.0 [facility] Basophils/100 WBC (Bld) 0.1 % Low 0.2 - 2.0 % [facility] Eosinophils/100 WBC (Bld) 0.9 % 0.9 - 7.0 % [facility] Erythrocyte distribution width (RBC) [Ratio] 13.0 % 11.0 - 15.0 % [facility] IMMATURE GRANULOCYTES ABS AUTO 0.03 [facility] Immature granulocytes/100 WBC (Bld) 0.3 % 0.0 - 0.5 % [facility] Interpretation and review of laboratory results Abnormal [facility] LYMPHOCYTES ABSOLUTE AUTO 2.3 [facility] Lymphocytes/100 WBC (Bld) 26.6 % 20.5 - 60.0 % [facility] MCH (RBC) [Entitic mass] 30.1 pg 26.7 - 34.0 pg [facility] MCHC (RBC) [Mass/Vol] 34.6 g/dL 29.9 - 35.2 g/dL [facility] MCV (RBC) [Entitic vol] 87.0 fL 81.0 - 99.0 fL [facility] MONOCYTES ABSOLUTE AUTO 0.4 [facility] Monocytes/100 WBC (Bld) 4.1 % 1.7 - 12.0 % [facility] NEUTROPHILS ABSOLUTE AUTO 5.9 [facility] Neutrophils/100 WBC (Bld) 68.0 % 43.0 - 75.0 % [facility] Platelet mean volume (Bld) [Entitic vol] 9.6 fL 9.5 - 13.5 fL [facility] TBH EO # 0.1 [facility] PLT [address] [facility] RBC 4.55 [facility] WBC 8.7 [facility] CBC without diffon Rbc Mcv (Fl) By Automated Count 87 [facility] Laboratory - Hematology and Cell countson 04-08-2024 Hematocrit (Bld) [Volume fraction] 39.6 % [facility] Hemoglobin (Bld) [Mass/Vol] 13.7 g/dL [facility] No Panel Informationon 04-08 [facility] Rubella IGG immune statuson 04-08-2024 Rubella immune IgG 2.32 [facility] Syphilis Total(Unknown Syphi lis Status)on 04-08-2024 Syphilis Non-Reactive [facility] Type and screenon 04-08-2024 Abo/Rh(D) Positive [facility] HCG ( test) Ql (U)o n 03-27-2024 Interpretation and review of laboratory results Abnormal [facility] Preg Test, Ur Positive [facility] Urinalysis macro (dipstick) panel (U)on 03-27-2024 Bilirubin, UA Negative Negative - 4(70) +++ mg/dL [facility] Blood, UA Negative Negative - 50 Jimy/mcL [facility] Clarity, UA Clear [facility] Color, UA Yellow [facility] Glucose, UA Negative Negative - 2000(110) ++++ mg/dL [facility] Interpretation and review of laboratory results Normal [facility] Ketones, UA Negative Negative - 160(16) ++++ mg/dL [facility] Leukocytes, UA Negative Negative - 500+++ Mychal/mcL [facility] Nitrite, UA Negative Negative - Positive [facility] pH, UA 5.5 5 - 9 [facility] Protein, UA Negative Negative - 2000(20) ++++ mg/dL [facility] Spec Grav, UA 1.025 1 - 1.03 [facility] Urobilinogen, UA 0.2 0.2 - 12 mg/dL [facility] PROGESTERONEon 07-27-2022 Progesterone 26.9 ng/mL Normal [facility] Comment on above: Result Comment: Foll icular phase 0.1 - 0.9 Luteal phase 1.8 - 23.9 Ovulation phase 0.1 - 12.0 First trimester 11.0 - 44.3 Second trimester 25.4 - 83.3 Third trimester 58.7 - 214.0 Postmenopausal 0.0 - 0.1 Performed By: #### P ROGES #### [facility] [address] [place] [address] Dr. Ryan Francisco PREG QUANT HCGon 07-12-2022 HCG QUANT <1 Normal [facility] Comment on above: Performed By: #### P REGQNT #### [facility] [address] [address] [address] Ryan Francisco HCG RANGE SEE BELOW Normal [facility] Comment on above: Result Comment: 5-50 0.2-1 WEEK 50-500 1-2 WEEKS 100-5,000 2-3 WEEKS 500-10,000 3-4 WEEKS 1,000-50,000 4-5 WEEKS 10,000-100,000 5-6 WEEKS 15,000-200,000 6-8 WEEKS 10,000-100,000 2-3 MONTHS Performed By: #### P REGQNT #### [facility] [address] [place] [address] Dr. Ryan Francisco XR HYSTEROSALPINGO EXPon XR [...] by: CLEMENTINE DEWEY Date: 2022-07-12 12:34 Normal [facility] PROGESTERONEon 06-29-2022 Progesterone 4.6 ng/mL Normal [facility] Comment on above: Result Comment: Foll icular phase 0.1 - 0.9 Luteal phase 1.8 - 23.9 Ovulation phase 0.1 - 12.0 First trimester 11.0 - 44.3 Second trimester 25.4 - 83.3 Third trimester 58.7 - 214.0 Postmenopausal 0.0 - 0.1 Performed By: #### P BRETT #### [facility] [address] [place] [address] Dr. Ryan Francisco PROGESTERONEon 06-01-2022 Progesterone 18.9 ng/mL Normal [facility] Comment on above: Result Comment: Foll icular phase 0.1 - 0.9 Luteal phase 1.8 - 23.9 Ovulation phase 0.1 - 12.0 First trimester 11.0 - 44.3 Second trimester 25.4 - 83.3 Third trimester 58.7 - 214.0 Postmenopausal 0.0 - 0.1 Performed By: #### P BRETT #### [facility] [address] [place] [address] Dr. Ryan Francisco US PELVIS AND TRANSVAGon [...] CLEMENTINE DEWEY Date: 2022-05-17 17:25 Normal [facility] PROGESTERONEon 04-29-2022 Progesterone 5.1 ng/mL Normal [facility] Comment on above: Result Comment: Foll icular phase 0.1 - 0.9 Luteal phase 1.8 - 23.9 Ovulation phase 0.1 - 12.0 First trimester 11.0 - 44.3 Second trimester 25.4 - 83.3 Third trimester 58.7 - 214.0 Postmenopausal 0.0 - 0.1 Performed By: #### P BRETT ####[facility] [address] [place], [place] [address]AsDr. Ryan Francisco ANTI-MULLERIAN HORMONEon Anti-Mullerian Hormone (AMH) 6.09 ng/mL Normal [facility] Comment on above: Result Comment: For assays employing antibodies, the possibility exists for interference by heterophile antibodies in the samples.1 1.Steffen Wilson Interferences in Immunoassays - still a threat. Clin. Chem. 2000; 46: 6271-3689. This test was developed and its performance characteristics determined by [employer]. It has not been cleared or approved by the Food and Drug Administration. Reference Range: Females 20 - 25y: 1.23 - 11.51 Median 4.70 AMH concentrations of >= 1.06 ng/mL is correlated with a better response to ovarian stimulation, produced more retrievable oocytes and higher odds of live according to Gleicher et al. Fertility and Sterility. 2010: 94:5928-2689. The current AMH test method correlates with [...] tumor. Performed By: #### A WEI #### [facility] [address] [place], [place] [address] Dr. Ryan Francisco FSHon 04-05-2022 FSH 3.6 mIU/mL Normal [facility] Comment on above: Result Comment: Adul t Female: Follicular phase 3.5 - 12.5 Ovulation phase 4.7 - 21.5 Luteal phase 1.7 - 7.7 Postmenopausal 25.8 - 134.8 Performed By: #### [facility] #### [facility] [address] [address] [address] Ryan Francisco LUTEINIZING HORMONE (LH)on 0 04-05-2022 LH 6.8 mIU/mL Normal [facility] Comment on above: Result Comment: Adul t Female: Follicular phase 2.4 - 12.6 Ovulation phase 14.0 - 95.6 Luteal phase 1.0 - 11.4 Postmenopausal 7.7 - 58.5 Performed By: #### L [facility] ####[facility] [address] [place], [place] [address]GhDr. Ryan Francisco CBC AUTO DIFFon 04-04-2022 BASO # 0.0 103/ul Normal 0.0-0.1 [facility] Comment on above: Performed By: #### C BC #### [facility] [address] [place] [address] Dr. Ryan Francisco Basophils/100 WBC (Bld) 0.3 % Normal 0.2-2.0 [facility] Comment on above: Performed By: #### C BC #### [facility] [address] [address] [address] Ryan Francisco EO # 0.1 103/ul Normal 0.0-0.7 [facility] Comment on above: Performed By: #### C BC #### [facility] [address] [place] [address] Dr. Ryan Francisco Eosinophils/100 WBC (Bld) 1.7 % Normal 0.9-7.0 [facility] Comment on above: Performed By: #### C BC #### [facility] [address] [place] [address] Dr. Ryan Francisco Erythrocyte distribution width (RBC) [Ratio] 12.7 % Normal 11.0-15.0 [facility] Comment on above: Performed By: #### C BC #### [facility] [address] [place] [address] Dr. Ryan Francisco Hematocrit (Bld) [Volume fraction] 39.7 % Normal 36.0-48.0 [facility] Comment on above: Performed By: #### C BC #### [facility] [address] [place] [address] Dr. Ryan Francisco Hemoglobin (Bld) [Mass/Vol] 13.4 g/dL Normal 12.0-16.0 [facility] Comment on above: Performed By: #### C BC #### [facility] [address] [place] [address] Dr. Ryan Francisco IG # 0.03 10e3/ul Normal 0.00-0.03 [facility] Comment on above: Performed By: #### C BC #### [facility] [address] [place] [address] Dr. Ryan Francisco IG % 0.5 % Normal 0.0-0.5 [facility] Comment on above: Performed By: #### C BC #### [facility] [address] [place] [address] Dr. Ryan Francisco LYMPH # 1.6 103/ul Normal 1.2-3.8 [facility] Comment on above: Performed By: #### C BC #### [facility] [address] [place] [address] Dr. Ryan Francisco Lymphocytes/100 WBC (Bld) 27.1 % Normal 20.5-60.0 [facility] Comment on above: Performed By: #### C BC #### [facility] [address] [place] [address] Dr. Ryan Francisco MANUAL DIFF REQ NO Normal [facility] Comment on above: Performed By: #### C BC #### [facility] [address] [place] [address] Dr. Ryan Francisco MCH (RBC) [Entitic mass] 29.6 pg Normal 26.7-34.0 [facility] Comment on above: Performed By: #### C BC #### [facility] [address] [place] [address] Dr. Ryan Francisco MCHC (RBC) [Mass/Vol] 33.8 g/dL Normal 29.9-35.2 [facility] Comment on above: Performed By: #### C BC #### [facility] [address] [address] [address] Ryan Francisco MCV (RBC) [Entitic vol] 87.6 fL Normal 81.0-99.0 [facility] Comment on above: Performed By: #### C BC #### [facility] [address] [address] [address] Ryan Francisco MONO # 0.4 103/ul Normal 0.3-0.8 [facility] Comment on above: Performed By: #### C BC #### [facility] [address] [address] [address] Ryan Francisco Monocytes/100 WBC (Bld) 6.7 % Normal 1.7-12.0 [facility] Comment on above: Performed By: #### C BC #### [facility] [address] [place] [address] Dr. Ryan Francisco NEUT # 3.7 103/ul Normal 1.4-6.5 [facility] Comment on above: Performed By: #### C BC #### [facility] [address] [place] [address] Dr. Ryan Francisco Neutrophils/100 WBC (Bld) 63.7 % Normal 43.0-75.0 [facility] Comment on above: Performed By: #### C BC #### [facility] [address] [place] [address] Dr. Ryan Francisco Platelet mean volume (Bld) [Entitic vol] 9.9 fL Normal 9.5-13.5 [facility] Comment on above: Performed By: #### C BC #### [facility] [address] [place] [address] Dr. Ryan Francisco PLT 421 103/ul Normal 150-450 [facility] Comment on above: Performed By: #### C BC #### [facility] [address] [place] [address] Dr. Ryan Francisco RBC 4.53 106/ul Normal 4.20-5.40 [facility] Comment on above: Performed By: #### C BC #### [facility] [address] [place], [place] [id number] Dr. Ryan Francisco WBC 5.8 103/ul Normal 4.0-11.0 [facility] Comment on above: Performed By: #### C BC #### [facility] [address] [address] [address] Ryan Francisco FREE T4on 04-04-2022 Free T4 [Mass/Vol] 0.99 ng/dL Normal 0.76-1.46 [facility] Comment on above: Performed By: #### F T4 #### [facility] [address] [address] [address] Ryan Francisco TSHon 04-04-2022 TSH 3.086 uIU/mL Normal 0.358-3.740 [facility] Comment on above: Performed By: #### T SH ####[facility] [address] [place], [place] [address]BwDr. Ryan Francisco US PELVIS AND TRANSVAGon US [...] by: LUCHO MIXON Date: 2022-04-04 16:38 Normal [facility] Auth for Release of Medical Recordson 12-20-2021 Auth for Release of Medical Records [id number]# 1.00CD:127 Normal [facility] Coding Summary.on 08-22-2021 Coding Summary. CD:[id number] Gh0bWw+PGhlYWQ+PE1FV GPpF75bhPAvgB3MJ6yWW V3TACFTUEXAGP1XVV2mv ZA5BGxpV5QsojRw VzuehIWjXH58HKe8NNJ6 xEzfZLwxdT6nvRAiW4u3 FcIiXU48fR47TWqvGCQf ScM0ZpOmctkvqZKl E6jqMuBdnWEmHmm+PHRh YmxlIHdpZHRoPScxMDAl WuRjdPcfTN3mAd7fOTRl LWNvbGxhcHNlOiBj k4hiUAElKGlnDW6lqUbv R6EvtID5RQKax9o6Yk01 dHI+PBJbTDQ0lKakGOcp n360OnKuh3bgNPE1 tSSkEOvlHFO6V74iu0K6 VNNnZDMsWMC8xUA6bW9u fRndolbqN5OwzBSvLcE4 BLG2zNIvfH1myXbh xrfmcG9mKeg+P76RIR8Y FUCFES3DTet9E1OiRbnp dHI+DS94POOgUY37dFNy sMMzz1uzpOq6LnTa KDNwQOE0mGkrDAfgp1Cr TZNrR58xtTAvu5Y9DGKo uSjzpVTkHzQjmDZ9tL7p RDknkztwh9ihomxv Euwid5vshm00lS06F47u BAvsQMNtVCU7XIAoPQSq kEnnwk5tjE1eHk0+IDxj c9flf2mdwPg7BnGu XKFjoaXyhNbnLBX7o1Yf Yo32I2ZqiVoph5RoNsf8 me47mKXub6E2nAQ8GHwd HAAnoR0uDYwiGtI1 PGNhLhKspS11rVZgYRbp Zj3bnQudqSmsPT3fRWHs wwvzMXWjyM3lWGOfdRGm fJmoWG3pJZLzbudm n333XvPhUFU5BKMdrTYz C6UoeG8cUwCdRWDgOMDa O1QtrDBnSJfbT129YLma ScH6HNLuklMgA6Ku QOYsrMefOvK9x9G7Oi5X a9MadfahZBI9ACkyWAIu CzI6UbXnWbZ3S6UgPwl7 CCNvfLqbWU3oG9Yq NHKiijdqznzhrNM4NKUv HAOfyQ72tQUcWMzsLn9v t6G3x860JQNiBLDqhA09 Az4jmJmyRGDskIOD vK4lnmcri1rvshspEeSt KCWtPWr0XBq1CVNbdOmt JfBfSMX7OuV1HYK5zLXt pO7fgTyxkzhahI6a Oyc+A17ibS4sRXH5SRH9 hyfcSJNadyNvNI48JQ07 B4WjQfonyYOcyJK+PGRp kxMchApbGQ0iRcFl c1htv7BuPXtnI1ErFPMi YDodVse7XOHfWHR3sCU0 dW2kZHTcQXtme9F5aKN5 Z6WafbWvwe6dq6gj XILaPPokQ09koPTcc8R7 JAApoHE9UOGnmWveWyAj pI79Cgv+NBRmyCndm7Ql Jozlo8buk0pcbLy0 IjMwJSIgdmFsaWduPSJ0 t2TbGd36U50iMJaeXZNp KMOwXNIeMIAdvNjdet4f xK8cQw1+PGNvbCB3 vBM2vB8xNGEmVpR0OGxm U460UaDssSReDcamm0yu v4dkeOm6AhZlPWBesoEl jHjqXVR5x9ViYq19 D93pEKphIAJdTIAjVEXe HKSovSrpla9jrJ2mHz0+ JO3lr6imjt95uH77aGQ+ NYMcKXH6hWiyFZjl BMDwgV7fYPgpVqR0BEEj MiTlfW89qUFaBNrhHg8h jYlpxLevWC3hOVWezenr y851YbGqx7qzKVJg eMPsCIldLBO4H85dc5D7 SYUsRGGfESO8yNA8zB7h bGlnbjogbGVmdDsgdmVy eYvvYIerKFpiT784 IHRvcDsnPlBhdGllbnQg JqBwZQh9V4EcDpu5MRWn eIesTT4poUBbKUzxAp3w bMbdiIctLF4yORZq bpjll653UhBvs1igUFKc oDTjKUbbSSK6W79rk7X7 XAJpMPVhDUW6aGA5qO7c bGlnbjogbGVmdDsg zxAmzXygXTarAAjmG383 IHRvcDsnPkJpcnRoIERh xCL9OH45SW41gUDwz1G6 nOU9G2QvECDkqokh sfzeoSZ8BCGlCHVqtH69 Uh9zfCtfAk1rWGOiPTZ4 ECSvwABsC3InnF3bPfTc VIMfMITbU2KeoFXz BWzmH807YBavJjB2DGWp wfLyA4DeEAVpzCmmWjA0 c4S5Ap2LL4O7WG63GJ53 fAYkd6Y8jKV7V8Tw QTWnjyimtkhoyDF4LVFg XFKamT37Sf3jrIyzGt0q RVMkUVG1CGNlnLKeC1Hk fR5dTtSgXDQqTODd D9TxnOVjRUnbT203ZWfv WxB3QJRvpgAzW0BqPDCi cWfsTqQ5h8P5Kq5XCLp4 JR66VN88iIXnh8E9 pGH7S5XzWFSthgdbugcb pWR4OTOqWBNbfW01Pj1w dZzbGx4pSXUlNWS7UCYi fVOrZ3OaaR6mQgEm DYIvTXOrT0CdpYNgTZfj I819JGdxTuI0UYCemzHg B7AxOEAxyLurKqX1n6M7 Xl2MZUVtCR25SRG4 uQC0QE78MR98L2PsSzon dGFibGU+PHRhYmxlIHdp ZHRoPScxMDAlJyBzdHls VH1fAv0yMZVqTKDx oKlbcXLfCuChy7orRBJt QJgdLJ2jiKlrU4BojLY1 EVFac3r0Qj91F73dB5Nd dXA+ZPMvgUE5nJK6 xI0jOoLzFjE2BXpoS035 QeHgxNHgEwuvy7qhc8tg dQs6DfL7VKKrspEzcEcp HJU9h0NxYh33X65x IHdpZHRoPSIxNSUiIHZh bBvbvh6nzF5hWn1+PGNv pTG6lJP6fW1mSvUjGlO5 BUdrU723QqVrmVDo Ivlbn1yvu1gyfUa2BwUn LGPqrfJxxCxbVID7k8Xq Xa49J5EszAfpa9YfHti5 cn54cGGug9B3jDF6 H9PiNQXkbcdasOGfrJbm LQ8aJHQgssfcHCUriB6j UARiU3m1BlDoWhD3MAdi S9LzcoK9YURhkBRn CMohBAP1E98uc5K2CFYi JLNbKMC1jUZ7uO5rhVnl bjogbGVmdDsgdmVydGlj KEidFSbrT710EHBm iLynROWszC1nWSTxkGWo bSboCH8oYRVhuahbZjoB RJGiUGmINJLOIL06QX95 yOQwj9U4hZP6D4Pc MFUjrfyfnsyjgTP9GTWt FUQfqF49qEIiLQcsTl3g m4Z7c789PQPxCUCfkQ67 Xh9qrKqkJOLwgDXA mH6qyozrc4xvflxxCdZa FEYwRTv3NFg0GJVvbYqk ZsJdYIY8JnO3UFI8nHJr xE7kyYdqknwjiM1v Oyc+NGSdPiljGBn2XVtu dGQ+LAOkVHZ5eSkkUNmj JEXwfT0tWTRrA5m3VnLv WqH7MTmpC1FkRAIi sfwaUh40rS2bWfBmMpV1 VPcwI7RdalU7CGWagBEo QDgbSBV8M61sa9V8NESa QMGsWHY5sFS5vC6s bGlnbjogbGVmdDsgdmVy tHnsHMujUDsfD389NHLl hDlaQePaITasXZJaEQ62 SB70wSWib5G1xDT3 L2YqTCGlndivnpsznYR4 HJArRKKcfN66cRQqMWlb Lg7oz5G2x654DLYwIEJm fY29Ow0fvApyYFHt eHNDsN8wgfimu8ikfukf ThJaBHVpXJy5RHf2OJCt fDgkLuUoYYA6MoU0TXB2 aAHavX0hjSunzaot yR2aPkx+RpNnFKrjWC09 CX28xUBgj6U9vQV4A1Hl SYZvtwcghqagxVV5NAVi ZUNnfE79cLXaCXag Va7li3Z1g028BVVjNCDs dM16Gg7zpLsyEMEneVWJ rM0nqrzsa1boevcuGwMo IKWnUHp4ZEr5MKLw qRdoWkGfJUK4QyT7EVT9 uTXoqN6bxWtzdtwlwN5y Oyc+X3F8fXE4dPFmmXwb dGQ+SZ06xz95G7Sf OibmMvj8WXGrJAC5iMG6 yV2kFMDaMYwbc4G7bBY1 A7YdmxCmrc6vm8zdUTHp AKweY90myOZgl0C0 MJZpbBA4YSJiuAfeAcCl jL58Egi+IZAakQvac9Dd Cress1jgg5zfdWw0SmGr JSIgdmFsaWduPSJ0 c4QnCf57U10fFXydZIEw ZEAwSRLxERUmeXmzdg0v qT6cHe4+RJHxiJK6lZB8 oO8vJbDgRyM8HJca C294IhWufXSoQrcio0yu k4zcqVl7ElDkTKQzyoIv zLrdPGG8j3LcQr17F4Fu nVbve8JzEpm1sf63 tBDmh8Z2zJE8W9LtVPLm jjkmyDYcoSzfRH6yQCJn ylqiXLDjzD6jKNGoU6k9 NsHvWpT6HZnvM9Uj rjI6CFYrkXXlRWHzuXFP xN6jfhhsg0lylwybSoWd ANAiYEf1ROk0VWAbqFto DjUmAGS7EjV1PUM7 wEVcoC5xhKnpcnnjzV6x Oyc+WTz7b6nfpHCqGZ3g qYA1UM83LR81pSMdc6W4 oLL7U1FcCACntkbt rfvyoKM1JPYxUPTpuQ39 Vc5psDwrNt4iGPHnEVK6 YEMklFRuC0QklO8bVpIf LTOyINRfH4FgyUVz RZfyQ820XMzdPrL8TBLy nnWoC1SmBVKnrAitAiU6 b5D8Lc4LMQ13HR51BG15 aZGhb4S1eGG3C5Jf PJMrhqqtmmidlST3SHYr RVGmmD51Nb0gzXspCb6g QKTfQCK9UWSjzZIzN6Nt qV1oQdDvLAWvYMMe P9GqnQGmZQayC559QQia BhD0SHRmnlOdF7NgBBDi iPvxXjM2q6G8Oc8SFm80 LP10FM94nIDrz4A8 lQI5V3JlEWNxrqflgfcw tHI8YEMnFLNwdE32Xj6r mFyoBg9pVGUrZBH8DUDg zFOcG9PpsR5aHhXt EMZqJBZzE6UzjVNpHTcj J951ENtrKlY8LDVjdpKn Q8MzVVLqgYsiEvF9g1D8 Jk0NXZwioog2H2Ru PjwvdHI+IP70QNQsEO97 mFIkbPGjp3bgyDa2GvXj EZQdPAH9nQahSEnqn6Qs BBPfG33yqTLou1P7 IGNv (more content not included)... [facility] Coding Summary. CD:[id number] Gh0bWw+PGhlYWQ+PE1FV PSyC01fgCIggF3TL1bAV H8ABSNIGJTTTY4TRX6bu DO6KSqwU9ArtkYr GusuuKLnCL78KMj1BMC5 gZndMLzzeR7yhQKaR8q9 ZeXeTO74mE96RHeoKWWt SvR1GvYyksvooHQh C5qoPvIguDYyWca+PHRh YmxlIHdpZHRoPScxMDAl EiWxuSjzMO3bYb6qOHIa LWNvbGxhcHNlOiBj c0jqUCJoHKesBB6ccYcd S4CfeDI6IQAoi3c6Ua03 dHI+UDEcDYW0yFqlBIii h595OmIgn3pqQOV3 cXGaRVbeBNP6H55yr7V2 BRGsNWHiYTS5uUQ1xD0x uJgfzyeeU3RcoXMqTmW4 LJM1jEAerJ7bzYzt kxmxbQ8xMco+N71QLW3P TCISOY6NRvo5Y1IbSify dHI+CM33QOCiUC45lJAx hHGrd0lmvJt4DvAn MIRnVYK2rGaiUTpap2Mq DSXiE27xrGYyw0D0XRWs xQtcjVMqTuKlnRV6pV8n ANresagjf2elffkx Spprk9eqbo41mV00L56v LWtjOPRnYVC8NUFaFVTd mLfiol8duJ6pLy9+IDxj r7rtp0xwcXi3ZkWe ONRbpbYwaZzkQKU4o7At Wu93A6HtsIpii5XwIlu2 vm37rDHpa5K5pCI0RYua RPWskH1xYAmbKzV2 IBVeWzIfbA08uKKeMYlf Dd6nvCozfHokLF9nZNXr cnyvWPPfqS0sZVXfiMMg iKoiRV3aRPSfzgdp g712FcAkCBC1NHCenUBr N5BsiM0fEmCdGKZeFNMo A7EocQJzBPwcK856PHqu TwF7WRZslsSeY7Zg ZFCjnPbnCvX7g2U6Xv8U b0LnvpsaUXP3IKiaEPXq QnN2OsJpZpF4U9XfOib3 OQQjfHmmYX3fG3No ZYGtfbqcmnxbqQT1GRTu HSWjeD09oJFiEVnsOs7u g8C8w706GOPoGFNyzD33 Ev8dsKaqGCDobLCQ hR5ycqvhf5msfrncCnWy YMXaOQd5LUb5JFPtnPvh JvJcSWX0PeU6AFU6rLYb iD1byWdepvdgsV9u Oyc+S99taI6yZON3ETI5 gauiPWVlbjXzZM99RS18 R7GjKisewQKheYW+PGRp knAedHhkIC5rAsDu u8kjy8GjUMcbH3GoCUZn JSftGbv7JZXrVQH0sXX2 oU8mODRdMWmca0F2wBC7 E0BiyoLoty9jh9zj SYPyJRwnL73smHTsz0V5 TBHrePI1VEYprBsuZeEj fB54Hmw+YXStdMucu6Of Tkbjg6jlv9syzRy0 IjMwJSIgdmFsaWduPSJ0 w2FzYp53S51rRYtnNKDx JNMcIYLhFHRjlCphpr5l yP6zDm0+PGNvbCB3 hTY6aO0gLWHaFkI0GNyf K758ShWhpNJdZbfgz6jw s7xivNg8SnPuCVCmqdJy zQdcHRS5a1GwTl29 I88sDVljUOKbZQOdTHRu OUFpkLbjir4bsV3oCt8+ LY5mj3xfyg88jW27pXF+ IOYaNLE1jIrdNJqi XUQrpH1jRHdtLkK6YNXd XfAjvW74sESeJDcjYy5p bVblfGezOZ3rFJBhftit k795WoChn4uaTPVp dSAuQOnaHJV8W66ab7W6 LGGbYOVhQYM7nRC4hQ7h bGlnbjogbGVmdDsgdmVy kMjxGNkyRCoiT963 IHRvcDsnPlBhdGllbnQg OyWvTVp2X7GzRuf0FRHc kYqyBX9isIYwODqmVb7n rPgsjYjjSY0kMGBz aegeo500PeZks7paEIQf nCQpGStyCOU7Z66qv3M9 YOFuSSHiZOE2pSV9yG0z bGlnbjogbGVmdDsg crDwpHlaEUosNPxtX781 IHRvcDsnPkJpcnRoIERh sDX4WI49VI99eMQlf4E6 jTH2Y7HgZMAhlwvp ldhrjLD6UGNaLYDstB41 Gh1qbQdaSu5uYQHwRZI4 FUTqfGErT0BpgK3nKmDz VDUwFETgH2IipUYv JEahW162NCkgZzE3KOEh mlOtF9FrWUIctVtsDbN8 e4E0Pq8GR4K5RN43HV70 xOWuf5G4jFE2D8Gq SNMqqpjtxgyyqEK1UVGo DPVgzN66Je6uzCaqZs2l ITVmROH1NXKxlARtV5Xo dA9oNqNxXEFjOAXj P1OmlDIdAFpaS717UZya ElF9DBMlhsXdI0ZlWYPj uBrsWwY9o4Q4Fl2DOBo4 VV73ZW75qWMmu5E9 hVR3X0GmMNYxfrsmucek iBN8TLUqRRWlpS43Wb2x gOtnYn1oEHOfVJU6DXWf uFNlS6JbeO5wTxBw FRBiMBFiX9QozPUeOHof L520LGthBnM8YDNyelIg L0VqZYYsqUouKdY1c2U4 It7YHDWeKL68PSV0 hPO6TI71WL36I0LbYkyk dGFibGU+PHRhYmxlIHdp ZHRoPScxMDAlJyBzdHls DG2gAt5pYWEsTISa gApcmAFlIlIkx6ykMXMv AZgkQL5drNaaX9QbqTR3 COIzd7y3Zo97F41uM7Iz dXA+QDYgqTT2qVT6 yA4cRjJvBzS4IMxgC753 PeWycMBnRmyfh9bud7gq pDe7YyF3HWXnxeFoiAyc CMQ1x1ExNw14I03w IHdpZHRoPSIxNSUiIHZh dLemgi5ywG7kYr8+PGNv tLM5fKB1bT3iEgIpEpZ0 QLwxA856VvEjaFHr Qnjiz9ien7jlcDw1EuIc HURcyiAjcAquSVQ8w4Df Fq52C5EqlCkjr7EfXlz4 jq61dXXex2V5pCE9 B5HbZVUzewtjmROpwOwy GY0sKKUdeindRSErkK1j VMFhY5e5XcRaJlV1OVmo O5RwqhL8RBSudTAh KSqrUIP2R39kp0K9JMAe SWEqMTZ8pKK0gT7rrVst bjogbGVmdDsgdmVydGlj NEzmHMuuK392MPVh tVjnTXHosZ8kGTRtkPBr qTwvBG6bGYJxiiflEvdB RWSfMXtJFWXYCA87ST27 wPDjp6P4jQI2N2Pt STLwijzyynkrtMA7FLHv ROTrxL52nBHcXRchZi0t x7S2d025HDQdTHLeiJ49 Sa6rdRpuTMJztIHL yS8nbghig0rtwtgyLnVo SPMnAVt7YPc5QNHzpIff UlJsPUJ9XzH6ENY0hXWr yC0syQylpoladF7p Oyc+MLAoGzrtHUv1VZfn dGQ+MYUwCOA9nGpuYDqo RIWwrF2vXNChD9i2XvLd YvK1SYweN5VnYJNw jxrnVq52kU8zCcDrTyH2 MBclN5GycgG9KWCxdXUa HYtsYWL9L56bj0C4QISl ORZyNJB3rZR1nY6c bGlnbjogbGVmdDsgdmVy uNmsGNcjPFmrB913NNVf xHvcNlFhWIgmXPQnRD85 DO52vJIve1J5xPT6 Y7VnNZDicwlmcnpchFV2 OQDtMNTsfW23jRHkCAtk Sq8gi5Z4o640ENZqDXSg hQ51Ig4ufAxcUKOd yQAZsM4hmlhux8mfhvpv OwTkYIFrZMi5XAx5JWPi qTyvIrWwCUM1KcF6FCZ9 dHMqzQ4gzMuvvnbx kF5fLqk+HyTaHPreKN21 PO66bAIzp3O6kGB7Z7Xz VMZaaaftjuchcKB3FWYr YAOvsU29zSRkSHna Ch2xe5Y8w968FKWxNQNs uC98Hu1xuHmhZAJggCJH uK9yplhje0dniuhgNrJw IYPhGIg0LYw9UGSj qNebSlOrMBG4QrN3MYK1 qMDeqM0yuFskywihvM7n Oyc+YLMxRXObt5Izx8Bk OS33LQ89P3VdOost dGFibGU+PHRhYmxlIHdp ZHRoPScxMDAlJyBzdHls QO0aSg4qUZIgIAHqgRtd rBJiXcKxc9aeJCJk YMauYG8zcHucN1YxuAW5 RMZak2k8Mn14P14hO8Xh dXA+OVSvzMA9hYI7aW4f HgPtVaL3HXuqG540 CgQogWXrOshgb9ywi8xn bGk0AlSoJEBmayFsaQpt ADK5g9IqFy00P59rZVpq ZHRoPSIyMCUiIHZh aWlavm9ulM2nWj7+PGNv bHV1lTJ7iZ3yGdRgLbY4 TAfsE199MtMgeFRfIloi H72vD6KrqZE+PHRy Jam6ZPQqwRdhCC8ouMVo QEdbWq0zOBW0DwGvPyLf CVvxT0SeHHNuqrwzfnqp hFH2JHXuKFMafK16 Cw2tnQsxDg3dCTKzVSI0 XIWjjCKwR0UroF5dReBa URHpFGEkO5NboYSpDDix C426NMnrYmR5TJYk cuLxX7BnXVAooWsfMhF4 j2D6Rm8SsTakvXLsCF6o SiFsLNw7A5BuVzj4GTRq wHboJF9wlVTtUPun El3kmDvllMkjKP3uIQMi pnnqd121VfJcx2ggDCFj sLSlDJjrDEM9X00fx3O3 SGDzRNBnMTN0bUC6 lS2lcCgvmmeeyKVgiMxa cvCttKtpARviLHinB475 WWVieMbbWkEWWqw0Y7Ky Ilc6KDKzmMakFQ1h gQOaQJckMi8iuFeehBjy OS8nYGKycghca361JzJv a5caQFVsvKNgASlpAEP0 Y03jt6Q4HACoRFJy HCT7wRI2qB9trHuqzgfb bGVmdDsgdmVydGljYWwt ANugJ398FUShpDqmFy5L Xoc2J8LbHfw3WYCc xLvoXB7ldHAxUVkxBi0n cAvprDdgTZ2kOYZknvlu e986WgEko9gbIVLsvQLy WQaiMHJ1A36hc5N6 RRLiXWJqJXY7fJO9pB5u bGlnbjogbGVmdDsgdmVy yJkkADdqLDllB647FUNf cDsnPlBheWVyOjwv dGQ+AE87cy52E4BeHfeb Ffx0SSEnEUO5oBG6aW7b VHKyLNweh9M9fSZ5U2Kf uhBhel9eg5soNWYz ZTog (more content not included)... Normal [facility] PAP [id number] 08-15-2021 Cytology report Cyto stain Doc (Cvx/Vag) Note Invalid Interpretation Code [facility] Comment on above: Result Comment: TEST S RESULT FLAG UNITS REF RANGE LAB Clinician Provided Cytology Information Source.............[employer] No. of containers..01 ThinPrep Vial DIAGNOSIS: 01 NEGATIVE FOR INTRAEPITHELIAL LESION OR MALIGNANCY. Specimen adequacy: 01 Satisfactory for evaluation. No endocervical component is identified. Performed by: 01 Sujey Engle Pinking Machine Operator (ASCP) . 01 Note: Note 01 [...] <-Panic Low,>-Panic High,A-Abnormal,AA-Critical Abnormal Performed at: [address] [id number] Mar Rivera MD, Performed By: #### 1 [id number] #### [facility] [address] [place] [address] HPV 16+18+31+33+35+39+45 +51+52+56+58+59+66+6 8 DNA Probe+sig amp Ql (Cvx) Negative Invalid Interpretation Code Negative [facility] Comment on above: Result Comment: This nucleic acid amplification test detects fourteen high-risk HPV types (16,18,31,33,35,39,45,51,52,56,58,59,66,68) without differentiation. Performed at: [address] [id number] MD Nicole Manuel Performed at: =G [address] [id number] MD Nicole Manuel Performed By: #### 1 [id number] #### [facility] [address] [place] [address] Insulin Lvlon 08-11-2021 Insulin Qn 24.3 u[IU]/mL Invalid Interpretation Code 2.6-24.9 [facility] Comment on above: Result Comment: Perf ormed at: [address] [id number] PhD Archie Jha Performed By: #### 1 [id number] #### [facility] [address] [place] [address] Consent for Treatmenton 07-29 Consent for Treatment [id number] #1.00CD:127 Normal [facility] Glu Fastingon 08-10-2021 Glucose [Mass/Vol] 95 mg/dL Normal 55-99 [facility] Comment on above: Performed By: #### 1 [id number] #### [facility] [address] [place] [address] Physician Orderon 08-10-2021 Physician Order [id number] 2#1.00CD:127 Normal [facility] PAP [id number] 08-09-2021 Collection Technique BRUSH-SPATULA Normal [facility] Comment on above: Performed By: #### 1 [id number] #### [facility] [address] [place] [address] Gynecological Body Site ENDOCERVIX Normal [facility] Comment on above: Performed By: #### 1 [id number] #### [facility] [address] [place] [address] Physician Orderon 08-09-2021 Physician Order [id number] #1.00CD:127 Normal [facility] Gynecology Office/Clinic Not pratik 02-17-2019 [...] Family history is negative Normal [facility] Comment on above: Result Comment: Elec tronically Signed By: Shmaika ISAACS, Kaley Pablo.david\Date and Time Signed: 02/17/19 [...] Family history is negative Normal [facility] Comment on above: Result Comment: Elec tronically Signed By: Shamika ISAACS, Kaley Wilson\.br\Date and Time Signed: 02/17/19 12:09 EDT Vital Signs Date Time Vital Sign Value Performing Clinician Facility 09-08-2024 08:28-0500 Body mass index (BMI) [Ratio] 35.56 kg/m2 [employer] DO Work Phone: [facility] 09-08-2024 08:28-0500 Body weight 88.18 kg [employer] DO Work Phone: [facility] 09-08-2024 08:28-0500 Diastolic blood pressure 90 mm[Hg] [employer] Work Phone: [facility] 09-08-2024 08:28-0500 Systolic blood pressure 132 mm[Hg] [employer] Work Phone: [facility] 08-27-2024 11:45-0500 Body mass index (BMI) [Ratio] 35.08 kg/m2 Immanuel Yobani DO Work Phone: [facility] 08-27-2024 11:45-0500 Body weight 87 kg Immanuel Yobani DO Work Phone: [facility] 08-27-2024 11:45-0500 Diastolic blood pressure 82 mm[Hg] Immanuel Yobani DO Work Phone: [facility] 08-27-2024 11:45-0500 Systolic blood pressure 122 mm[Hg] Immanuel Yobani DO Work Phone: [facility] 08-12-2024 11:08-0500 Body mass index (BMI) [Ratio] 34.93 kg/m2 Immanuel Yobani DO Work Phone: [facility] 08-12-2024 11:08-0500 Body weight 86.64 kg Immanuel Yobani DO Work Phone: [facility] 08-12-2024 11:08-0500 Diastolic blood pressure 80 mm[Hg] Immanuel Yobani DO Work Phone: [facility] 08-12-2024 11:08-0500 Systolic blood pressure 120 mm[Hg] Immanuel Yobani DO Work Phone: [facility] 07-20-2024 11:00-0500 Body mass index (BMI) [Ratio] 34.39 kg/m2 Immanuel Yobani DO Work Phone: [facility] 07-20-2024 11:00-0500 Body weight 85.28 kg Immanuel Yobani DO Work Phone: [facility] 07-20-2024 11:00-0500 Diastolic blood pressure 76 mm[Hg] Immanuel Yobani DO Work Phone: [facility] 07-20-2024 11:00-0500 Systolic blood pressure 122 mm[Hg] Immanuel Yobani DO Work Phone: [facility] 06-22-2024 14:31-0500 Body mass index (BMI) [Ratio] 34.2 kg/m2 Immanuel Yobani DO Work Phone: [facility] 06-22-2024 14:31-0500 Body weight 84.82 kg Immanuel Yobani DO Work Phone: [facility] 06-22-2024 14:31-0500 Diastolic blood pressure 78 mm[Hg] Immanuel Yobani DO Work Phone: [facility] 06-22-2024 14:31-0500 Systolic blood pressure 124 mm[Hg] Immanuel Yobani DO Work Phone: [facility] 06-15-2024 10:27-0500 Body weight 84.82 kg Cele Rodriguez MD Work Phone: [facility] 06-15-2024 10:27-0500 Diastolic blood pressure 88 mm[Hg] Cele Rodriguez MD Work Phone: [facility] 06-15-2024 10:27-0500 Heart rate 99 /min Cele Rodriguez MD Work Phone: [facility] 06-15-2024 10:27-0500 Respiratory rate 18 /min Cele Rodriguez MD Work Phone: [facility] 06-15-2024 10:27-0500 Systolic blood pressure 137 mm[Hg] Cele Rodriguez MD Work Phone: [facility] 05-25-2024 11:46-0400 Body mass index (BMI) [Ratio] 33.84 kg/m2 Immanuel Yobani DO Work Phone: [facility] 05-25-2024 11:46-0400 Body weight 83.92 kg Immanuel Yobani DO Work Phone: [facility] 05-25-2024 11:46-0400 Diastolic blood pressure 74 mm[Hg] Immanuel Yobani DO Work Phone: [facility] 05-25-2024 11:46-0400 Systolic blood pressure 118 mm[Hg] Immanuel Yobani DO Work Phone: [facility] 04-27-2024 10:35-0400 Body mass index (BMI) [Ratio] 33.75 kg/m2 Immanuel Yobani DO Work Phone: [facility] 04-27-2024 10:35-0400 Body weight 83.69 kg Immanuel Yobani DO Work Phone: [facility] 04-27-2024 10:35-0400 Diastolic blood pressure 76 mm[Hg] Immanuel Yobani DO Work Phone: [facility] 04-27-2024 10:35-0400 Systolic blood pressure 122 mm[Hg] Immanuel Yobani DO Work Phone: [facility] 03-27-2024 10:27-0400 Body mass index (BMI) [Ratio] 34.53 kg/m2 [facility] 03-27-2024 10:27-0400 Body weight 85.64 kg Nom Nurse [facility] 03-27-2024 10:27-0400 Diastolic blood pressure 70 mm[Hg] [facility] Nurse [facility] 03-27-2024 10:27-0400 Systolic blood pressure 120 mm[Hg] [facility] Nurse [facility] 01-02-2024 09:15-0400 Body height 157.48 cm [facility] 01-02-2024 09:15-0400 Body mass index (BMI) [Ratio] 33.9 kg/m2 [facility] 01-02-2024 09:15-0400 Body temperature 100.2 [degF] [facility] 01-02-2024 09:15-0400 Body weight 84.08 kg [facility] 01-02-2024 09:15-0400 Heart rate 115 /min [facility] 01-02-2024 09:15-0400 Respiratory rate 18 /min [facility] 01-02-2024 09:15-0400 SaO2% (BldA) [Mass fraction] 99 % [facility] Encounters Encounter Date Encounter Type Care [...] Comment on above: Third trimester preg terrell; 33 weeks gestation of ; induced hypertension, [...] Result Encounter Immanuel Yobani DO Work Phone: [facility] External Department Unsolicited Start: 08-12-2024 End: 08-12-2024 Bamboo flowsheet Immanuel Yobani DO Work Phone: [facility] Start: 08-12-2024 End: 08-12-2024 Bamboo flowsheet Immanuel Yobani DO Work Phone: [facility] Start: 08-12-2024 End: 08-12-2024 flow sheet Immanuel Yobani DO Work Phone: [facility] Comment on above: 29 weeks gestation o f ; Third trimester ; Gestational diabetes mellitus (GDM), antepartum, gestational diabetes method of control unspecified; Encounter for in vitro fertilization Start: 08-12-2024 End: 08-12-2024 ambulatory IMMANUEL YOBANI Not Available Start: 08-05-2024 End: 08-05-2024 Clinisync Result Encounter Immanuel Yobani DO Work Phone: [facility] External Department Unsolicited Start: 08-05-2024 End: 08-05-2024 Clinisync Result Encounter Immanuel Yobani DO Work Phone: [facility] External Department Unsolicited Start: 07-20-2024 End: 07-20-2024 Bamboo flowsheet Immanuel Yobani DO Work Phone: [facility] Start: 07-20-2024 End: 07-20-2024 Bamboo flowsheet Immanuel Yobani DO Work Phone: [facility] Start: 07-20-2024 End: 07-20-2024 flow sheet Immanuel Yobani DO Work Phone: [facility] OB Comment on above: 26 weeks [...] Cele Rodriguez MD Work Phone: [facility] Comment on above: 21 weeks gestation o f (Primary Dx); Chronic hypertension affecting ; In vitro fertilization Start: 06-15-2024 End: 06-15-2024 ambulatory PIEDAD Johnathon RODRIGUEZ [facility] Start: 05-28-2024 End: 05-30-2024 Clinisync Result Encounter Immanuel Yobani DO Work Phone: [facility] External Department Unsolicited Start: 05-28-2024 End: 05-30-2024 Clinisync Result Encounter Immanuel Yobani DO Work Phone: [facility] External Department Unsolicited Start: 05-27-2024 End: 05-27-2024 Chart abstracting Cele Rodriguez MD Work Phone: [facility] Start: 05-25-2024 End: 05-25-2024 Bamboo flowsheet Immanuel Yobani DO Work Phone: [facility] Start: 05-25-2024 End: 06-01-2024 Bamboo flowsheet Immanule Yobani DO Work Phone: [facility] [...] Not Available Start: 01-02-2024 End: 01-02-2024 ambulatory [facility] Work Phone: Start: 01-02-2024 End: 01-02-2024 Patient encounter procedure [facility] Work Phone: Start: 11-27-2023 [...] Pap Smear [facility] Start: 06-15-2025 Tobacco Screening Tobacco Screening [facility] Start: 09-22-2024 End: 09-22-2024 Patient encounter procedure 09/22/2024 9:20 AM EST Routine [facility] [address] [place] [address] Immanuel Hilton, DO [address] [place] [address] [place] [address] [facility] Start: 09-08-2024 End: 09-08-2025 Alanine aminotransferase [Enzymatic activity/volume] in Serum or Plasma ALT Lab Routine induced hypertension, antepartum Expected: 09/08/2024 (Approximate), Expires: 09/08/2025 [facility] Comment on above: Expected: 09/08/2024 (Approximate), Expires: 09/08/2025 Start: 09-08-2024 End: 09-08-2025 Aspartate aminotransferase [Enzymatic activity/volume] in Serum or Plasma AST Lab Routine induced hypertension, antepartum Expected: 09/08/2024 (Approximate), Expires: 09/08/2025 [facility] Comment on above: Expected: 09/08/2024 (Approximate), Expires: 09/08/2025 Start: 09-08-2024 End: 09-08-2025 CBC W Auto Differential panel - Blood CBC and differential Lab Routine induced hypertension, antepartum Expected: 09/08/2024 (Approximate), Expires: 09/08/2025 [facility] Comment on above: Expected: 09/08/2024 (Approximate), Expires: 09/08/2025 Start: 09-08-2024 End: 09-08-2025 Creatinine [Mass/volume] in Serum or Plasma Creatinine Lab Routine induced hypertension, antepartum Expected: 09/08/2024 (Approximate), Expires: 09/08/2025 [facility] Work Phone: Comment on above: Expected: 09/08/2024 (Approximate), Expires: 09/08/2025 Start: 09-08-2024 End: 09-08-2025 Lactate dehydrogenase [Enzymatic activity/volume] in Serum or Plasma by Lactate to pyruvate reaction Lactate dehydrogenase Lab Routine induced hypertension, antepartum Expected: 09/08/2024, Expires: 09/08/2025 [facility] Comment on above: Expected: 09/08/2024 , Expires: 09/08/2025 Start: 09-08-2024 End: 09-08-2025 Protein, urine, 24 hour Protein, urine, 24 hour Lab Routine induced hypertension, antepartum Expected: 09/08/2024 (Approximate), Expires: 09/08/2025 [facility] Comment on above: Expected: 09/08/2024 (Approximate), Expires: 09/08/2025 Start: 09-08-2024 End: 09-08-2025 Pt and ptt Pt and ptt Lab Routine induced hypertension, antepartum Expected: 09/08/2024, Expires: 09/08/2025 [facility] Comment on above: Expected: 09/08/2024 , Expires: 09/08/2025 Start: 09-08-2024 End: 09-08-2025 Urate [Mass/volume] in Serum or Plasma Uric acid Lab Routine induced hypertension, antepartum Expected: 09/08/2024 (Approximate), Expires: 09/08/2025 [facility] Comment on above: Expected: 09/08/2024 (Approximate), Expires: 09/08/2025 Start: 09-08-2024 End: 09-08-2025 Urea nitrogen [Mass/volume] in Serum or Plasma BUN Lab Routine induced hypertension, antepartum Expected: 09/08/2024, Expires: 09/08/2025 [facility] Comment on above: Expected: 09/08/2024 , Expires: 09/08/2025 Start: 09-08-2024 End: 09-08-2024 Patient encounter procedure [facility] Comment on above: Arrived Start: 08-27-2024 End: 08-27-2024 Patient encounter procedure 08/27/2024 11:40 AM EST Routine [facility] [address] [place] [id number] Immanuel Hilton DO [address] [place] [address] [facility] Start: 08-27-2024 End: 08-27-2024 Professional / ancillary services management 08/27/2024 11:00 AM EST Ancillary Procedure [facility] [address] [place] [id number] [facility] Start: 08-12-2024 End: 08-12-2025 [...] mellitus screening Expected: 07/20/2024 (Approximate), Expires: 07/20/2025 [facility] Comment on above: Expected: 07/20/2024 (Approximate), Expires: 07/20/2025 Start: 07-20-2024 End: 07-20-2025 US for US OB SCAN FOR GROWTH Imaging Routine PCOS (polycystic ovarian syndrome) resulting from in vitro fertilization, antepartum Expected: 07/20/2024 (Approximate), Expires: 07/20/2025 [facility] Comment on above: Expected: 07/20/2024 [...] End: 06-15-2024 Patient encounter procedure [facility] Start: 05-25-2024 End: 11-23-2024 Alpha fetoprotein, maternal [...] Procedure [facility] [address] [place] [id number] [facility] Start: 04-27-2024 End: 04-27-2025 US Pelvis transvaginal US OB transvaginal Imaging Routine Encounter for screening for cervical length Expected: 04/27/2024 (Approximate), Expires: 04/27/2025 [facility] Work Phone: Comment on above: Expected: 04/27/2024 (Approximate), Expires: 04/27/2025 Start: 04-27-2024 End: 04-27-2024 Patient encounter procedure 04/27/2024 10:20 AM EDT Routine [facility] [address] [place] [id number] Immanuel Hilton, [address] [place] [address] [facility] Start: 03-29-2024 COVID-19 Vaccine ( season) COVID-19 Vaccine ( season) [facility] Start: 03-29-2024 Influenza vaccination [facility] Start: 03-27-2024 End: 03-27-2025 ABO/Rh ABO/Rh Lab Routine Missed menses Expected: 03/27/2024 (Approximate), Expires: 03/27/2025 [facility] Comment on above: Expected: 03/27/2024 (Approximate), Expires: 03/27/2025 Start: 03-27-2024 End: 03-27-2025 Blood type and Indirect antibody screen panel - Blood Type and screen Lab Routine Missed menses Expected: 03/27/2024 (Approximate), Expires: 03/27/2025 [facility] Work Phone: Comment on above: Expected: 03/27/2024 (Approximate), Expires: 03/27/2025 Start: 03-27-2024 End: 03-27-2025 US Pelvis transvaginal US OB transvaginal Imaging Routine Missed menses Expected: 03/27/2024 (Approximate), Expires: 03/27/2025 [facility] Comment on above: Expected: 03/27/2024 (Approximate), Expires: 03/27/2025 Start: 2020 Screening for malign ant neoplasm of cervix Pap Smear [facility] Start: 2018 DTaP,Tdap and Td Vac cines (1 - Tdap) DTaP,Tdap and Td Vaccines (1 - Tdap) [facility] Start: 2017 Adult BMI Screening Adult BMI Screen ing [facility] Start: 2011 Depression Screening Depression Scre ening [facility] Start: 2011 Tobacco Screening Tobacco Screening [facility] Start: 1999 Screening for Chlamy leoncio trachomatis Chlamydia Screening [facility] Bacteria identified in Urine by Culture Urine culture Microbiology Routine Missed menses Ordered: 03/27/2024 [facility] Comment on above: Ordered: 03/27/2024 CBC W Auto Different ial panel - Blood CBC and differential Lab Routine Missed menses Ordered: 03/27/2024 [facility] Comment on above: Ordered: 03/27/2024 CHLAMYDIA TRACHOMATI S (GENITO/STI) CHLAMYDIA TRACHOMATIS (GENITO/STI) Lab Routine STD exposure Ordered: 05/25/2024 [facility] Comment on above: Ordered: 05/25/2024 Cytology Cervical or vaginal smear or scraping study Pap Smear Pathology and Cytology Routine Well woman exam with routine gynecological exam Ordered: 05/25/2024 [facility] Work Phone: Comment on above: Ordered: 05/25/2024 Hemoglobin A1c/Hemoglobin.total in Blood Hemoglobin A1c Lab Routine Missed menses Ordered: 03/27/2024 [facility] Comment on above: Ordered: 03/27/2024 Hepatitis B virus love rface Ag [Presence] in Serum or Plasma by Immunoassay Hepatitis B surface antigen Lab Routine Missed menses Ordered: 03/27/2024 [facility] Comment on above: Ordered: 03/27/2024 Hepatitis C virus Ab [Presence] in Serum or Plasma by Immunoassay Hepatitis C antibody Lab Routine Missed menses Ordered: 03/27/2024 [facility] Comment on above: Ordered: 03/27/2024 HIV-1/HIV-2 antigen/antibody combination immunoassay HIV-1 and HIV-2 antibodies Lab Routine Missed menses Ordered: 03/27/2024 [facility] Comment on above: Ordered: 03/27/2024 Neisseria gonorrhoea e DNA [Presence] in Unspecified specimen by BUCK with probe detection Neisseria gonorrhea DNA probe, direct Lab Routine STD exposure Ordered: 05/25/2024 [facility] Comment on above: Ordered: 05/25/2024 Reagin Ab [Presence] in Serum by RPR RPR Lab Routine Missed menses Ordered: 03/27/2024 [facility] Comment on above: Ordered: 03/27/2024 Rubella antibody, IgG Rubella an tibody, IgG Lab Routine Missed menses Ordered: 03/27/2024 [facility] Comment on above: Ordered: 03/27/2024 SURESWAB(R) ADVANCED VAGINITIS PLUS, TMA SURESWAB(R) ADVANCED VAGINITIS PLUS, TMA Pathology and Cytology Routine Vaginal discharge Ordered: 05/25/2024 [facility] Comment on above: Ordered: 05/25/2024 Payers Date Payer Category Payer Commercial Managed C are - PPO [employer] [id number] [facility] er [id number] 2023 Unknown [id number] 2021 Private Health Insurance [id number] 2021 Unknown [id number]. [id number] 2021 Unknown [id number] 1999 Unknown [id number] 2.16.840.1.040284.3.579.2. 593 1999 Unknown [id number] 2.16.840.1.383126.3.579.2. 593 1999 Unknown [id number] 2.16.840.1.989159.3.579.2. 593 1999 Unknown [id number] 2.16.840.1.986109.3.579.2. 593 1999 Unknown [id number] 2.16.840.1.687289.3.579.2. 593 1999 Unknown [id number] 2.16.840.1.946248.3.579.2. 593 1999 Unknown [id number] 2.16.840.1.667933.3.579.2. 593 1999 Unknown [id number] 2.16.840.1.956100.3.579.2. 1286 1999 Unknown [id number] 2.16.840.1.086024.3.579.2. 1286 1999 Unknown [id number] 2.16.840.1.254910.3.579.2. 1259 1999 Unknown [id number] 2.16.840.1.711138.3.579.2. 1259 1999 Unknown [id number] 2.16.840.1.235367.3.579.2. 1259 1999 Unknown [id number] 2.16.840.1.190474.3.579.2. 1259 1999 Unknown [id number] 2.16.840.1.604436.3.579.2. 1259 1999 Unknown [id number] 2.16.840.1.509282.3.579.2. 1259 1999 Unknown [id number] 2.16.840.1.421506.3.579.2. 1259 1999 Unknown [id number] 2.16.840.1.917061.3.579.2. 1259 1999 Unknown [id number] 2.16.840.1.425467.3.579.2. 1259 1999 Unknown [id number] 2.16.840.1.532011.3.579.2. 9 1999 Unknown [id number] 2.16.840.1.844853.3.579.2. 1259 1959 Private Health Insurance [id number] 1959 Unknown [id number] Social History Date Type Detail Facility Tobacco smoking stat [facility] Unknown if ever smoked [facility] Work Phone: Start: 1999 Sex Assigned At Female F [facility] Start: 01-02-2024 End: 05-27-2024 Tobacco smoking status IAIS Never smoked tobacco [facility] Start: 01-02-2024 End: 05-27-2024 Tobacco use and exposure Smokeless tobacco non-user [facility] Start: 04-27-2024 End: 08-27-2024 Alcoholic beverage intake Ex-drinker (finding) [facility] Start: 01-02-2024 End: 06-15-2024 History of Social function [facility] Start: 01-02-2024 End: 06-15-2024 Tobacco use panel [facility] Start: 01-29-2024 [facility] Start: 11-26-2023 Gender identity Identifies as female gender (finding) [facility] Start: 05-27-2024 End: 06-15-2024 Alcoholic beverage intake Lifetime non-drinker (finding) [facility] Start: 1999 Sex assigned at Not on file P [facility] Start: 05-26-2024 Sex Female (finding) [facility] Medical Equipment Procedure Code Equipment Code Equipment Origin al Text Equipment Identifier Dates 1 strip by In Vi tro route Daily Use in the morning prior to breakfast, 1 hour after each meal for a total of 4times daily. [id number] Start: 07-20-2024 End: 08-19-2024 1 each by In Vit ro route Daily Use to check FSBS four times daily [id number] Start: 07-20-2024 End: 08-19-2024 Goals Date Patient Goal Desired Activity /State Personal health goal Clinical Notes 03-27-2024 to 09-08-2024 Chika Blackguerda, [employer] - 09/08/2024 8:30 AM Gautam Peetr, [employer] - 08/27/2024 11:40 AM Abhijitbreanne Rossana, [facility] - 08/12/2024 11:10 AM ESTLissa Jose, [place] - 07/20/2024 10:20 AM EST Note Date [...] a total of 4times daily. Continuous Glucose Motor Route Carrier (FreeStyle Jenise 3 [place]) device 1 each, Does not apply, Every 14 days Continuous Glucose Sensor (FreeStyle Jenise 3 Sensor) misc 1 each, Does not apply, Every 14 days Multiple Vitamin (multivitamin) tablet 1 tablet, Daily terconazole (Terazol 7) 0.4 % vaginal cream 1 applicator, Vaginal, Nightly ALLERGIES Allergies Allergen Reactions Jeannette Flavor [Jeannette Oil] Latex Hives, Itching, Rash and Swelling [...] nursing note reviewed. Exam conducted with a trade union official present. Vitals: Estimated body mass index is [...] Immanuel Hilton DO documented in this encounter [facility] 08-27-2024 History of Present illness Narrative Reason [...] apply, As needed Blood Glucose Monitoring Suppl (D-Quantified Skin Glucometer) w/Device kit 1 kit, Does not apply, Daily, Use four times daily to check FSBS. In the morning prior to breakfast & 1 hour after each meal for a total of 4times daily. Continuous Glucose Motor Route Carrier (FreeStyle Jenise 3 [place]) device 1 each, Does not apply, Every 14 days Continuous Glucose Sensor (FreeStyle Jenise 3 Sensor) misc 1 each, Does not apply, Every 14 days metroNIDAZOLE (FLAGYL) 500 mg, Oral, 2 times daily, Do not drink alcohol while taking this medication Multiple Vitamin (multivitamin) tablet 1 tablet, Daily ALLERGIES Allergies Allergen Reactions Jeannette Flavor [Jeannette Oil] Latex Hives, Itching, Rash and Swelling [...] nursing note reviewed. Exam conducted with a trade union official present. Vitals: Estimated body mass index is [...] from yesterday. Patients insurance did finally approve Reelation Jenise and patient is waiting for monitor [...] Immanuel Hilton DO documented in this encounter [facility] 08-12-2024 History of Present illness [...] 1 tablet, Daily ALLERGIES Allergies Allergen Reactions Jeannette Flavor [Jeannette Oil] Latex Hives, Itching, Rash and Swelling [...] nursing note reviewed. Exam conducted with a trade union official present. Vitals: Estimated body mass index is [...] Immanuel Hilton DO documented in this encounter [facility] 07-20-2024 History of Present illness [...] mg, Oral, Daily ALLERGIES Allergies Allergen Reactions Jeannette Flavor [Jeannette Oil] Latex Hives, Itching, Rash and Swelling [...] Immanuel Hilton DO documented in this encounter [facility] 06-22-2024 History of Present illness [...] mg, Oral, Daily ALLERGIES Allergies Allergen Reactions Jeannette Flavor [Jeannette Oil] Latex Hives, Itching, Rash and Swelling [...] Immanuel Hilton DO documented in this encounter [facility] 06-15-2024 History of Present illness [...] Allergies: Allergies Allergen Reactions Latex, Natural Rubber Jeannette Meds: Prior to Admission medications Medication Sig [...] other morbidities. Based on the available evidence, [facility] recommends treatment with antihypertensive therapy [...] preeclampsia prevention as is recommended by the [employer] Committee Opinion No. 743. [...] Cele Rodriguez MD, FACOG (she/hers) [facility] [address] [place] [address] This document was created with [employer] technology. Though I make every effort to review the dictation as it is transcribed, on occasion the spoken word can be misinterpreted by the technology leading to inappropriate words, phrases, or sentences. This note is addressed to the requesting provider as a consultation for clinical guidance. Specific medical abbreviations are occasionally used and those are generally approved by the [place]?Board of?Obstetrics and?Gynecology?as well as?Kenzie croft abbreviations. The above plan of care was based solely on the diagnoses for which a consultation was requested. ?More frequent testing may be indicated based on her other medical/obstetrical conditions. The management of other or medical conditions is beyond the scope of requested consultation and will continue to be followed by the primary chemistry department chair or primary care provider. Note to patient: [...] IVF Have you been seen here at [facility] in a previous ? N/a Recent ER visits or hospitalizations? no Bring blood sugar log or meter with you today? (Please bring them with you for every visit at [facility]) no Flu vaccine (May-September)? no Any concerns that you would like me to mention to the provider today? no documented in this encounter [employer] 05-25-2024 History of Present illness Narrative Reason [...] mg, Oral, Daily ALLERGIES Allergies Allergen Reactions Jeannette Flavor [Jeannette Oil] Latex Hives, Itching, Rash and Swelling [...] nursing note reviewed. Exam conducted with a trade union official present. Vitals: Estimated body mass index is [...] Immanuel Hilton DO documented in this encounter [facility] 04-27-2024 History of Present illness [...] mg, Oral, Daily ALLERGIES Allergies Allergen Reactions Jeannette Flavor [Jeannette Oil] Latex Hives, Itching, Rash and Swelling [...] nursing note reviewed. Exam conducted with a trade union official present. Vitals: Estimated body mass index is [...] IVF . Patient to also have [facility] referral for IVF and Level II ultrasound. [...] or undercooked meat, and stay away from [facility]. Patient has been consulted regarding any further do's and don'ts of . Patient voiced understanding and all questions and concerns were answered. Orders Placed This Encounter Procedures POCT urinalysis dipstick manually resulted Follow Up: Patient is to return in 4 weeks for routine OB appointment. Documented by Esperanza Peter LPN on behalf of: Immanuel Hilton DO documented in this encounter [facility] 03-27-2024 History of Present illness [...] Procedure Laterality Date TONSILLECTOMY Allergies Allergen Reactions Jeannette Flavor [Jeannette Oil] Latex Hives, Itching, Rash and Swelling [...] or undercooked meat, and stay away from [facility]. Patient has also been advised to not [...] Healthcare Evaluation note No assessment inform ation [facility] Work Phone: Evaluation note Diagnosis Well woman [...] this encounter [facility] SystemEvaluation note* Diagnosis Second trimester state, incidental 22 weeks gestation of Personal history of cardiac murmur Personal history of other diseases of circulatory system documented in this encounter [facility] HealthcareEvaluation note* Diagnosis Missed menses documented in this encounter [facility] HealthcareEvaluation note* Diagnosis 14 weeks gestation of Second trimester state, incidental Encounter for screening for cervical length documented in this encounter [facility] HealthcareEvaluation note* Diagnosis 26 weeks gestation of Diabetes mellitus screening Screening for diabetes mellitus Second trimester state, incidental PCOS (polycystic ovarian syndrome) Polycystic ovaries resulting from in vitro fertilization, antepartum Gestational diabetes mellitus (GDM), antepartum, gestational diabetes method of control unspecified Elevated glucose tolerance test Impaired glucose tolerance test documented in this encounter [facility] HealthcareEvaluation note* Diagnosis 29 weeks gestation of Third trimester state, incidental Gestational diabetes mellitus (GDM), antepartum, gestational diabetes method of control unspecified Encounter for in vitro fertilization Encounter for assisted reproductive fertility procedure cycle documented in this encounter [facility] HealthcareEvaluation note* Diagnosis Third trimester state, incidental 32 weeks gestation of documented in this encounter [facility] HealthcareEvaluation note* Diagnosis Third trimester state, incidental 33 weeks gestation of induced hypertension, antepartum Transient hypertension of , antepartum documented in this encounter [facility] HealthcareInstructionsNot on filedocumented in this [facility] SystemInstructionsNot on filedocumented in this encounterPro[facility] SystemInstructions* Attachments The following attachments cannot be sent through Care Everywhere. * Preeclampsia ([place]zeri) [facility] Purpose Family History No Family [...] and content) DATE CREATED AUTHOR 03/06/2019 [facility] DATE CREATED AUTHOR AUTHOR'S ORGANIZ ATION 12/21/2021 [facility] DATE CREATED AUTHOR AUTHOR'S ORGANIZ ATION 12/01/2022 [facility] DATE CREATED AUTHOR AUTHOR'S ORGANIZ ATION 06/17/2024 [facility] DATE CREATED AUTHOR AUTHOR'S ORGANIZ ATION 09/09/2024 [facility] [...] January 02, 2024 End: January 02, 2024 [employer] Relationship Specialty Start Date End Date Akila Grant MD [address] [place] [phone] PCP - General Family Medicine 11/27/23 [employer] Relationship Specialty Start Date End Date Akila Grant MD [address] [place] [phone] PCP - General Family Medicine 11/27/23 [employer] Relationship Specialty Start Date End Date Akila Grant MD [address] [place] [address] PCP - General Family Medicine 11/27/23 [employer] Relationship Specialty Start Date End Date Akila Grant MD [address] [place] [phone] PCP - General Family Medicine 11/27/23 [employer] Relationship Specialty Start Date End Date Akila Grant MD [address] [place] [address] PCP - General Family Medicine 11/27/23 [employer] Relationship Specialty Start Date End Date Akila Grant MD [address] [place] [address] PCP - General Family Medicine 11/27/23 [employer] Relationship Specialty Start Date End Date Akila Grant MD [address] [place] [address] PCP - General Family Medicine 11/27/23 [employer] Relationship Specialty Start Date End Date Akila Grant MD [address] [facility] [place] [address] PCP - General Family Medicine 11/27/23 [employer] Relationship Specialty Start Date End Date Akila Grant MD [address] [place] [address] PCP - General Family Medicine 11/27/23 [employer] Relationship Specialty Start Date End Date Akila Grant MD [address] [facility] [place] [address] PCP - General Family Medicine 11/27/23 [employer] Relationship Specialty Start Date End Date Akila Grant MD [address] [place] [address] PCP - General Family Medicine 11/27/23 [employer] Relationship Specialty Start Date End Date Akila Grant MD [address] [facility] [place] [address] PCP - General Family Medicine 11/27/23 [employer] Relationship Specialty Start Date End Date Akila Grant MD [address] [place] [phone] PCP - General Family Medicine 11/27/23 [employer] Relationship Specialty Start Date End Date Akila Grant MD [address] [place] [address] PCP - General Family Medicine 11/27/23 [employer] Relationship Specialty Start Date End Date Akila Grant MD [address] [place] [address] PCP - General Family Medicine 11/27/23 [employer] Relationship Specialty Start Date End Date Akila Grant MD [address] [place] [address] PCP - General Family Medicine [...] BE BASED ON THE PRIMARY CLINICAL RECORDS. [facility] provides no warranty or guarantee of the accuracy or completeness of information in this document.
[2024-09-12 08:16] LABS: Total Protein Urine Random 29.7 mg/dL (<=11.9)
[2024-09-12 08:24] LABS: Total Protein 24 Hour Urine 148.5 mg/24hr (<=149.1); Total Volume 24 Hour Urine 500 mL/24hr
== END 2024-09-12 07:50 | disposition home or self-care (01) ==
LOC: LAB 07:49
PROVIDERS: PCP Family Medicine; Visit Provider Obstetrics & Gynecology
DX: O13.9 Gestational [pregnancy-induced] hypertension without significant proteinuria, unspecified trimester (principal)
CPT/HCPCS: 84156

== ENCOUNTER 2024-09-16 01:08 | Outpatient (OUT) | payer OTHER, BC, SELFPAY ==
--- NOTE | 2024-09-16 | US_ITS ---
The [address] [address] Patient Name: ANNA MARIO MRN: [id number] date: 2000 Sex: F Assigned Patient Location: [facility] Current Patient Location: [facility] Accession/Order Number: [id number] Exam Date: 09/16/2024 09:07 Report Date: 09/16/2024 09:15 At the request of: LUIS DOTY DO Procedure: US OB growth ULTRASOUND OB GROWTH COMPARISON: 08/05/2024 CLINICAL DATA: Gestational diabetes There is a single live intrauterine gestation in cephalic presentation. There is cardiac and somatic activity with heart rate of 138 bpm. The amniotic fluid index measures 15.2 cm which is within normal limits. The following measurements were obtained: Biparietal diameter 8.4 cm 34 weeks 0 days 26% Head circumference 32.1 cm 36 weeks 2 days 51% Abdominal circumference 30.0 cm 33 weeks 6 days 28% Femur length 6.6 cm 34 weeks 1 day 25% The composite ultrasound age based on these measurements is 34 weeks 4 days +/- 2 weeks 3 days. The estimated date of delivery is October 24, 2024. This correlates with dates based on last menstrual period. Estimated weight is 5 lbs. 4 oz. +/- 13 ounces. US/US OB growth IMPRESSION: SINGLE LIVE INTRAUTERINE GESTATION WITH TODAY'S ULTRASOUND AGE OF 34 WEEKS 4 DAYS. Impression dictated by: Chika Holden M.D.09/16/2024 9:15 AM Dictation Location: [employer] Electronically authenticated by: [id number] Y Date: 09/16/2024 09:15
--- NOTE | 2024-09-16 | US_ITS ---
[address] [address] Patient Name: ANNA MARIO MRN: [id number] date: 2000 Sex: F Assigned Patient Location: [facility] Current Patient Location: [facility] Accession/Order Number: [id number] Exam Date: 09/16/2024 09:04 Report Date: 09/16/2024 09:06 At the request of: LUIS DOTY DO Procedure: US OB BPP w non-stress BIOPHYSICAL PROFILE: CLINICAL INFORMATION: Gestational diabetes mellitus O24.419 COMPARISON: 09/09/2024 TECHNIQUE: Multiple ultrasonographic scans of the lower abdomen and pelvis were obtained. The fetus is in the cephalic presentation. Gestational age based on today's measurements is 34 weeks 4 days. The heart rate [id number] beats per minute. FINDINGS: TONE: 1 or more episodes of activity extension and flexion of extremity or opening and closing of the hand [Y] 2/2 GROSS BODY MOVEMENTS: 3 or more discrete body or limb movements [Y] 2/2 BREATHING MOVEMENTS: 1 or more episodes of breathing lasting at least 30 seconds [Y] 2/2 CAPRICE: A single deepest vertical pocket of amniotic fluid greater than 2 cm [Y] 2/2 CAPRICE: 15.2 cm . This is in normal range. Total score: 8/8 US/US OB BPP w non-stress IMPRESSION: NORMAL BIOPHYSICAL PROFILE. Impression dictated by: Chika Holden M.D.09/16/2024 9:06 AM Dictation Location: [employer] Electronically authenticated by: [id number] Y Date: 09/16/2024 09:06
--- OUTSIDE RECORDS SUMMARY | 2024-09-16 01:12 | XMS_ITS | CCD ---
Author Organization [facility] Care Team Providers Care Credit Processor Name Role Phone YOBANI ., DR SMITH [...] Latex Drug allergy (disorder) 0 hives [facility] Repository (1 source) orange flavor Drug allergy (disorder) 0 [facility] Repository (5 sources) Guadalupe - fruit; Translations: [ORANGE] 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 4 anaphylaxis [facility] (20 sources) Latex 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 4 Hives, Itching, Rash, Swelling [facility] (20 sources) orange allergenic [...] 2024 12:00am aspirin 81 mg chewable tablet (10 sources) Platelet Aggregation Inhibitor, Nonsteroidal Anti-inflammatory Drug [...] Glucose Monitoring Suppl (D-Care Glucometer) w/Device kit (16 sources) Start: 07-20-2024 End: 07-20-2025 Blood Glucose [...] MCG/0.5ML injection 11/26/2023 03/27/2024 Discontinued Continuous Glucose Cyber Systems Administrator (FreeStyle Jenise 3 Ho Ho Kus) device (10 sources) Start: 08-20-2024 Continuous Glucose Cyber Systems Administrator (FreeStyle Jenise 3 Ho Ho Kus) device Indications: Gestational diabetes mellitus (GDM), antepartum, gestational diabetes method of control unspecified , Third trimester 1 each every 14 (fourteen) days 1 each 3 08/20/2024 Active Continuous Glucose Sensor (FreeStyle Jenise 3 Sensor) misc (10 sources) Start: 08-20-2024 Continuous Glucose Sensor (FreeStyle Jenise 3 Sensor) misc Indications: Gestational diabetes mellitus (GDM), antepartum, gestational diabetes method of control unspecified , Third trimester 1 each every 14 (fourteen) days 2 each 3 08/20/2024 Active isopropyl alcohol 0.7 ml/ml medicated pad (16 sources) Start: 07-20-2024 Alcohol Swabs (Alcohol Prep [...] of ] 06-22-2024 Episodic Residual codes; unclassified (19 sources) Gestation period, 26 weeks; Translations: [26 [...] Test Name Value Interpretation Reference Range Facility [facility] TOTAL PROTEIN 24 HOUR UR INEon 09-12-2024 Interpretation and review of laboratory results Abnormal [facility] Protein (U) [Mass/Vol] 29.7 mg/dL High NINF - 11.9 mg/dL [facility] TOTAL PROTEIN 24 HOUR URINE 148.5 NINF [facility] TOTAL VOLUME 24 HOUR URINE 500 mL/24hr [facility] ALL CBC WITH AUTO DIFFon BASOPHILS ABSOLUTE AUTO 0 [facility] Basophils/100 WBC (Bld) 0.1 % Low 0.2 - 2.0 % [facility] Eosinophils/100 WBC (Bld) 0.7 % Low 0.9 - 7.0 % [facility] Erythrocyte distribution width (RBC) [Ratio] 13.4 % 11.0 - 15.0 % [facility] Hematocrit (Bld) [Volume fraction] 32.2 % Low 36.0 - 48.0 % [facility] Hemoglobin (Bld) [Mass/Vol] 10.6 g/dL Low 12.0 - 16.0 g/dL [facility] IMMATURE GRANULOCYTES ABS AUTO 0.06 High [facility] Immature granulocytes/100 WBC (Bld) 0.9 % High 0.0 - 0.5 % [facility] Interpretation and review of laboratory results Abnormal [facility] LYMPHOCYTES ABSOLUTE AUTO 1.4 [facility] Lymphocytes/100 WBC (Bld) 19.7 % Low 20.5 - 60.0 % [facility] MCH (RBC) [Entitic mass] 28.3 pg 26.7 - 34.0 pg [facility] MCHC (RBC) [Mass/Vol] 32.9 g/dL 29.9 - 35.2 g/dL [facility] MCV (RBC) [Entitic vol] 85.9 fL 81.0 - 99.0 fL [facility] MONOCYTES ABSOLUTE AUTO 0.5 [facility] Monocytes/100 WBC (Bld) 7.4 % 1.7 - 12.0 % [facility] NEUTROPHILS ABSOLUTE AUTO 4.9 [facility] Neutrophils/100 WBC (Bld) 71.2 % 43.0 - 75.0 % [facility] Platelet mean volume (Bld) [Entitic vol] 10.4 fL 9.5 - 13.5 fL [facility] EO # 0.1 [facility] PLT 391 [facility] TB RBC 3.75 Low [facility] WBC 6.9 [facility] OB BPP W NON-STRESS on 09-09-2024 [place] [address] Ultrasound Report Signed Patient: AMY MARIO MR#: [id number] : 2000 Acct:[id number] Age/Sex: 24 / F ADM Date: 09/09/24 Loc: US Attending Dr: Immanuel Hilton D.O. Ordering Physician: Immanuel Hilton D.O. Date of Service: 09/09/24 Procedure(s): US OB BPP w non-stress Accession Number(s): [id number] cc: Akila Grant M.D.; Immanuel Hilton D.O. [place] [id number] Patient Name: AMY MARIO MRN: [facility]:[id number] date: 2000 Sex: F Assigned Patient Location: [facility] Current Patient Location: ED.MAIN Accession/Order Number: [id number] Exam Date: 09/09/2024 07:58 Report Date: 09/09/2024 [...] Signed By: 09/09/24 1132 DD/ 1130 TD/TT: Printing Supervisor: [facility] Radiology, Radiologist, - 09/09/2024 The [place] [id number] Ultrasound Report Signed Patient: AMY MARIO MR#: [id number] : 2000 Acct:[id number] Age/Sex: 24 / F ADM Date: 09/09/24 Loc: US Attending Dr: Immanuel Hilton D.O. Ordering Physician: Immanuel Hilton D.O. Date of Service: 09/09/24 Procedure(s): US OB BPP w non-stress Accession Number(s): [id number] cc: Akila Grant M.D.; Immanuel Hilton D.O. The [address] [address] Patient Name: AMY MARIO MRN: [id number] date: 2000 Sex: F Assigned Patient Location: [facility] Current Patient Location: ED.MAIN Accession/Order Number: [id number] Exam Date: 09/09/2024 07:58 Report Date: 09/09/2024 [...] Signed By: 09/09/24 1132 DD/ 1130 TD/TT: Printing Supervisor: [facility] Radiology Study observation (narrative) [facility] US OB BPP W NON-STRESS Ordered By: Radiologist Radiology on 09-09-2024 [facility] Work Phone: Urinalysis macro (dipstick) panel (U)on 09-08-2024 Bilirubin, UA Trace Negative - 4(70) +++ mg/dL [facility] Blood, UA Positive Negative - 50 Jimy/mcL [facility] Clarity, UA Clear [facility] Color, UA Yellow [facility] Glucose, UA Negative Negative - 2000(110) ++++ mg/dL [facility] Interpretation and review of laboratory results Abnormal [facility] Ketones, UA Negative Negative - 160(16) ++++ mg/dL [facility] Leukocytes, UA Positive Negative - 500+++ Mychal/mcL [facility] Nitrite, UA Negative Negative - Positive [facility] pH, UA 6 5 - 9 [facility] Protein, UA Positive Negative - 1999(20) ++++ mg/dL [facility] Spec Grav, UA 1.025 1 - 1.03 [facility] Urobilinogen, UA 0.2 0.2 - 12 mg/dL [facility] US OB BPP W NON-STRESS on 09-02-2024 [place] [address] Ultrasound Report Signed Patient: AMY MARIO MR#: [id number] : 2000 Acct:[id number] Age/Sex: 24 / F ADM Date: 09/02/24 Loc: US Attending Dr: Immanuel Hilton D.O. Ordering Physician: Immanuel Hilton D.O. Date of Service: 09/02/24 Procedure(s): US OB BPP w non-stress Accession Number(s): [id number] cc: Akila Grant M.D.; Immanuel Hilton D.O. [address] [address] Patient Name: AMY MARIO MRN: [id number] date: 2000 Sex: F Assigned Patient Location: [facility] Current Patient Location: Accession/Order Number: [id number] Exam Date: 09/02/2024 08:03 Report Date: 09/02/2024 [...] M.D. Signed By: 09/02/24924 DD/ 1 TD/TT: Printing Supervisor: [facility] Radiology, Radiologist, MD - 09/02/2024 [place] [address] Ultrasound Report Signed Patient: AMY MARIO MR#: [id number] : 2000 Acct:[id number] Age/Sex: 24 / F ADM Date: 09/02/24 Loc: US Attending Dr: Immanuel Hilton D.O. Ordering Physician: Immanuel Hilton D.O. Date of Service: 09/02/24 Procedure(s): US OB BPP w non-stress Accession Number(s): [id number] cc: Akila Grant M.D.; Immanuel Hilton D.O. The [address] [id number] Patient Name: AMY MARIO MRN: [facility]:[id number] date: 2000 Sex: F Assigned Patient Location: [facility] Current Patient Location: Accession/Order Number: [id number] Exam Date: 09/02/2024 08:03 Report Date: 09/02/2024 [...] M.D. Signed By: 09/02/24924 DD/ 1 TD/TT: Printing Supervisor: [facility] Radiology Study observation (narrative) [facility] OB BPP W NON-STRESS Ordered By: Radiologist Radiology on 09-02-2024 [facility] Work Phone: US OB FOLLOW UP TRANSABDOMIN [...] 2164 gm / 4 lbs, 12 oz (0646-2637 gm) Hadlock Normal: 1953 gm (0343-4055 mg) [place]lock 80% for 32.0 wks (GA [...] report is generated using voice recognition reporting (Mozye). On occasion PowerScribe erroneously drops words from the report or [...] UA Positive Negative - 4(70) +++ mg/dL [facility] Comment on above: small Blood, UA Negative Negative - 50 Jimy/mcL [facility] Clarity, UA Clear [facility] Color, UA Yellow [facility] Glucose, UA Positive Negative - 2000(110) ++++ mg/dL [facility] Comment on above: 100 Interpretation and review of laboratory results Abnormal [facility] Ketones, UA Positive Negative - 160(16) ++++ mg/dL [facility] Comment on above: trace Leukocytes, UA Positive Negative - 500+++ Mychal/mcL [facility] Comment on above: large Nitrite, UA Negative Negative - Positive [facility] pH, UA 6.5 5 - 9 [facility] Protein, UA Positive Negative - 2000(20) ++++ mg/dL [facility] Comment on above: 30 Spec Grav, UA 1.03 1 - 1.03 [facility] Urobilinogen, UA 0.2 0.2 - 12 mg/dL [facility] BPP W NON-STRESS on 08-26-2024 [place] [address] Ultrasound Report Signed Patient: AMY MARIO MR#: [id number] : 2000 Acct:[id number] Age/Sex: 24 / F ADM Date: 08/26/24 Loc: [facility] 251-[address]: Immanuel Hilton D.O. Ordering Physician: Immanuel Hilton D.O. Date of Service: 08/26/24 Procedure(s): US OB BPP w non-stress Accession Number(s): [id number] cc: Akila Grant M.D.; Immanuel Hilton D.O. The [address] [address] Patient Name: AMY MARIO MRN: [facility]:[id number] date: 2000 Sex: F Assigned Patient Location: [facility] Current Patient Location: [facility] Accession/Order Number: [id number] Exam Date: 08/26/2024 08:00 Report Date: 08/26/2024 [...] Signed By: 08/26/24 0858 DD/ 0856 TD/TT: Printing Supervisor: [facility] Radiology, Radiologist, MD - 08/26/2024 [place] [address] Ultrasound Report Signed Patient: AMY MARIO MR#: [id number] : 2000 Acct:[id number] Age/Sex: 24 / F ADM Date: 08/26/24 Loc: [facility] 251-[address]: Immanuel Hilton D.O. Ordering Physician: Immanuel Hilton D.O. Date of Service: 08/26/24 Procedure(s): US OB BPP w non-stress Accession Number(s): [id number] cc: Akila Grant M.D.; Immanuel Hilton D.O. [place] [address] Patient Name: AMY MARIO MRN: [id number] date: 2000 Sex: F Assigned Patient Location: [facility] Current Patient Location: [facility] Accession/Order Number: [id number] Exam Date: 08/26/2024 08:00 Report Date: 08/26/2024 [...] M.D. Signed By: 08/26/2458 DD/ 5 TD/TT: Printing Supervisor: [facility] Radiology Study observation (narrative) [facility] US OB BPP W NON-STRESS Ordered By: Radiologist Radiology on 08-26-2024 [facility] Work Phone: Urinalysis macro (dipstick) panel (U)on 08-12-2024 Bilirubin, UA Negative Negative - 4(70) +++ mg/dL [facility] Blood, UA Negative Negative - 50 Jimy/mcL [facility] Clarity, UA Clear [facility] Color, UA Yellow [facility] Glucose, UA Negative Negative - 2000(110) ++++ mg/dL [facility] Interpretation and review of laboratory results Abnormal [facility] Ketones, UA Positive Negative - 160(16) ++++ mg/dL [facility] Comment on above: trace Leukocytes, UA Positive Negative - 500+++ Mychal/mcL [facility] Comment on above: large Nitrite, UA Negative Negative - Positive [facility] pH, UA 5.5 5 - 9 [facility] Protein, UA Trace Negative - 1999(20) ++++ mg/dL [facility] Spec Grav, UA 1.03 1 - 1.03 [facility] Urobilinogen, UA 0.2 0.2 - 12 mg/dL [facility] ALL CBC WITH AUTO DIFFon BASOPHILS ABSOLUTE AUTO 0 [facility] Basophils/100 WBC (Bld) 0.3 % 0.2 - 2.0 % [facility] Eosinophils/100 WBC (Bld) 1 % 0.9 - 7.0 % [facility] Erythrocyte distribution width (RBC) [Ratio] 13.2 % 11.0 - 15.0 % [facility] Hematocrit (Bld) [Volume fraction] 32.6 % Low 36.0 - 48.0 % [facility] Hemoglobin (Bld) [Mass/Vol] 11.3 g/dL Low 12.0 - 16.0 g/dL [facility] IMMATURE GRANULOCYTES ABS AUTO 0.07 High [facility] Immature granulocytes/100 WBC (Bld) 0.9 % High 0.0 - 0.5 % [facility] Interpretation and review of laboratory results Abnormal [facility] LYMPHOCYTES ABSOLUTE AUTO 1.6 [facility] Lymphocytes/100 WBC (Bld) 19.6 % Low 20.5 - 60.0 % [facility] MCH (RBC) [Entitic mass] 30.4 pg 26.7 - 34.0 pg [facility] MCHC (RBC) [Mass/Vol] 34.7 g/dL 29.9 - 35.2 g/dL [facility] MCV (RBC) [Entitic vol] 87.6 fL 81.0 - 99.0 fL [facility] MONOCYTES ABSOLUTE AUTO 0.6 [facility] Monocytes/100 WBC (Bld) 8 % 1.7 - 12.0 % [facility] NEUTROPHILS ABSOLUTE AUTO 5.6 [facility] Neutrophils/100 WBC (Bld) 70.2 % 43.0 - 75.0 % [facility] Platelet mean volume (Bld) [Entitic vol] 9.7 fL 9.5 - 13.5 fL [facility] TBH EO # 0.1 [facility] PLT 400 [facility] RBC 3.72 Low [facility] WBC 8 [facility] Urinalysis macro (dipstick) panel (U)on 06-22-2024 Bilirubin, UA Negative Negative - 4(70) +++ mg/dL [facility] Blood, UA Negative Negative - 50 Jimy/mcL [facility] Clarity, UA Clear [facility] Color, UA Yellow [facility] Glucose, UA Negative Negative - 1999(110) ++++ mg/dL [facility] Interpretation and review of laboratory results Abnormal [facility] Ketones, UA Positive Negative - 160(16) ++++ mg/dL [facility] Comment on above: 15 Leukocytes, UA Positive Negative - 500+++ Mychal/mcL [facility] Comment on above: small Nitrite, UA Negative Negative - Positive [facility] pH, UA 5.5 5 - 9 [facility] Protein, UA Trace Negative - 1999(20) ++++ mg/dL [facility] Spec Grav, UA 1.03 1 - 1.03 [facility] Urobilinogen, UA 0.2 0.2 - 12 mg/dL [facility] IGP,APTIMA HPV,AGE GDLNon AGE GDLN ACOG TESTING Note . [facility] Comment on above: TESTS RESULT FLAG UN ITS REF RANGE LAB Clinician Provided Cytology Information Source.............Cervix Other.............. No. of containers..01 ThinPrep Vial Age Algo ACOG Michelle... FLAG LEGEND: L-Low Normal,H-High Normal,LL-Alert Low,HH-Alert High <-Panic Low,>-Panic High,A-Abnormal,AA-Critical Abnormal Performed at: 01 =G [facility] [address] [place] [address] Mar Rivera MD, IGP, RFX APTIMA HPV ASCU Note . [facility] Comment on above: TESTS RESULT FLAG UN ITS REF RANGE LAB DIAGNOSIS: 02 NEGATIVE FOR INTRAEPITHELIAL LESION OR MALIGNANCY. FUNGAL ORGANISMS MORPHOLOGICALLY CONSISTENT WITH CARLOS SPECIES ARE PRESENT. Specimen adequacy: 02 Satisfactory for evaluation. No endocervical component is identified. An endocervical component is not commonly seen in the patient. Performed by: Judy Vera, Education Finance Processor ([facility]) . 02 Note: Note 02 The Pap [...] <-Panic Low,>-Panic High,A-Abnormal,AA-Critical Abnormal Performed at: [address] [address] Mar Rivera MD, Performed at: =G - [address] [id number] [address] Clerk: Mar Rivera MD, Phone: [phone] Performed at: - [address] [id number] [address] Clerk: Mar Rivera MD, Phone: [phone] SPATULA-ALONE CERVIX [facility] AFP, SERUM, OPEN SPINA BIFID Aon 05-30-2024 AFP MOM 1.36 . [facility] AFP VALUE 55.4 ng/mL . [facility] COMMENT: Comment . [facility] Comment on above: Ivet Mobley , Ph.D., [facility] Director References: Available Upon Request. Multiples Of Median Cutoffs For AFP Elevations [place] 2.5 Black 2.8 IDD 2.0 Twins 4.5 Abbreviation Definitions IDD - Insulin Dep Diabetes OSBR - Open Spina Bifida Risk For further inquiries contact [facility] at [phone]. This test was developed and its performance characteristics determined by [facility]. It has not been cleared or approved by the Food and Drug Administration. Performed at: [facility] [address] [place], [place] [id number] [address] Clerk: Kristina Carter [facility], Phone: [phone] GEST. AGE ON COLLECTION DATE 18.6 . weeks [facility] GESTAT. AGE BASED ON LMP . [facility] Comment on above: Recalculations are n ot recommended when gestational dating by LMP and ultrasound are within 10 days. INSULIN DEP DIABETES No . [facility] INTERPRETATION Comment . [facility] Comment on above: Interpretation: Scre en Negative [...] Customer Services to discuss available options. The [employer] recommends amniocentesis be offered to women age 35 and older. MATER[age] AT SARA 25.3 [age] [facility] MULTIPLE GESTATION No . [facility] OSBR RISK 1 [place] 4034 . [facility] RACE . [facility] RESULTS Report . [facility] TEST RESULTS: Negative . [facility] WEIGHT 185 . lbs [facility] N N LMP [id number] 4 18 N 1 Y 185 N N N N N White/ [facility] Urinalysis macro (dipstick) panel (U)on 04-27-2024 Bilirubin, UA Positive Negative - 4(70) +++ mg/dL [facility] Comment on above: small Blood, UA Negative Negative - 50 Jimy/mcL [facility] Clarity, UA Clear [facility] Color, UA Yellow [facility] Glucose, UA Negative Negative - 2000(110) ++++ mg/dL [facility] Interpretation and review of laboratory results Abnormal [facility] Ketones, UA Positive Negative - 160(16) ++++ mg/dL [facility] Comment on above: trace Leukocytes, UA Positive Negative - 500+++ Mychal/mcL [facility] Comment on above: small Nitrite, UA Negative Negative - Positive [facility] pH, UA 6.0 5 - 9 [facility] Protein, UA Negative Negative - 2000(20) ++++ mg/dL [facility] Spec Grav, UA 1.030 1 - 1.03 [facility] Urobilinogen, UA 0.2 0.2 - 12 mg/dL [facility] ALL CBC WITH AUTO DIFFon BASOPHILS ABSOLUTE AUTO 0.0 [facility] Basophils/100 WBC (Bld) 0.1 % Low 0.2 - 2.0 % [facility] Eosinophils/100 WBC (Bld) 0.9 % 0.9 - 7.0 % [facility] Erythrocyte distribution width (RBC) [Ratio] 13.0 % 11.0 - 15.0 % [facility] IMMATURE GRANULOCYTES ABS AUTO 0.03 [facility] Immature granulocytes/100 WBC (Bld) 0.3 % 0.0 - 0.5 % [facility] Interpretation and review of laboratory results Abnormal [facility] LYMPHOCYTES ABSOLUTE AUTO 2.3 [facility] Lymphocytes/100 WBC (Bld) 26.6 % 20.5 - 60.0 % [facility] MCH (RBC) [Entitic mass] 30.1 pg 26.7 - 34.0 pg [facility] MCHC (RBC) [Mass/Vol] 34.6 g/dL 29.9 - 35.2 g/dL [facility] MCV (RBC) [Entitic vol] 87.0 fL 81.0 - 99.0 fL [facility] MONOCYTES ABSOLUTE AUTO 0.4 [facility] Monocytes/100 WBC (Bld) 4.1 % 1.7 - 12.0 % [facility] NEUTROPHILS ABSOLUTE AUTO 5.9 [facility] Neutrophils/100 WBC (Bld) 68.0 % 43.0 - 75.0 % [facility] Platelet mean volume (Bld) [Entitic vol] 9.6 fL 9.5 - 13.5 fL [facility] TBH EO # 0.1 [facility] PLT 400 [facility] RBC 4.55 [facility] WBC 8.7 [facility] CBC without diffon Rbc Mcv (Fl) By Automated Count 87 [facility] - Hematology and Cell countson 04-08-2024 Hematocrit (Bld) [Volume fraction] 39.6 % [facility] Hemoglobin (Bld) [Mass/Vol] 13.7 g/dL [facility] No Panel Informationon 04-08 [facility] Rubella IGG immune statuson 04-08-2024 Rubella immune IgG 2.32 [facility] Syphilis Total(Unknown Syphi lis Status)on 04-08-2024 Syphilis Non-Reactive [facility] Type and screenon 04-08-2024 Abo/Rh(D) Positive [facility] HCG ( test) Ql (U)o n 03-27-2024 Interpretation and review of laboratory results Abnormal [facility] Preg Test, Ur Positive [facility] Urinalysis macro (dipstick) panel (U)on 03-27-2024 Bilirubin, UA Negative Negative - 4(70) +++ mg/dL [facility] Blood, UA Negative Negative - 50 Jimy/mcL [facility] Clarity, UA Clear [facility] Color, UA Yellow [facility] Glucose, UA Negative Negative - 1999(110) ++++ mg/dL [facility] Interpretation and review of laboratory results Normal [facility] Ketones, UA Negative Negative - 160(16) ++++ mg/dL [facility] Leukocytes, UA Negative Negative - 500+++ Mychal/mcL [facility] Nitrite, UA Negative Negative - Positive [facility] pH, UA 5.5 5 - 9 [facility] Protein, UA Negative Negative - 1999(20) ++++ mg/dL [facility] Spec Grav, UA 1.025 1 - 1.03 [facility] Urobilinogen, UA 0.2 0.2 - 12 mg/dL [facility] PROGESTERONEon 07-27-2022 Progesterone 26.9 ng/mL Normal [facility] Comment on above: Result Comment: Foll icular phase 0.1 - 0.9 Luteal phase 1.8 - 23.9 Ovulation phase 0.1 - 12.0 First trimester 11.0 - 44.3 Second trimester 25.4 - 83.3 Third trimester 58.7 - 214.0 Postmenopausal 0.0 - 0.1 Performed By: #### P ROGES #### [facility] [address] [place] [address] [address] Ryan Francisco PREG QUANT HCGon 07-12-2022 HCG QUANT <1 Normal [facility] Comment on above: Performed By: #### P REGQNT #### [facility] [address] [place] [address] [address] Ryan Francisco HCG RANGE SEE BELOW Normal [facility] Comment on above: Result Comment: 5-50 0.2-1 WEEK 50-500 1-2 WEEKS 100-5,000 2-3 WEEKS 500-10,000 3-4 WEEKS 1,000-50,000 4-5 WEEKS 10,000-100,000 5-6 WEEKS 15,000-200,000 6-8 WEEKS 10,000-100,000 2-3 MONTHS Performed By: #### P REGQNT #### [facility] [address] [place] [address] Dr. Ryan Francisco XR HYSTEROSALPINGO EXPon XR [...] by: CLEMENTINE DEWEY Date: 2022-07-12 12:34 Normal [facility] PROGESTERONEon 06-29-2022 Progesterone 4.6 ng/mL Normal [facility] Comment on above: Result Comment: Foll icular phase 0.1 - 0.9 Luteal phase 1.8 - 23.9 Ovulation phase 0.1 - 12.0 First trimester 11.0 - 44.3 Second trimester 25.4 - 83.3 Third trimester 58.7 - 214.0 Postmenopausal 0.0 - 0.1 Performed By: #### P BRETT #### [facility] [address] [place] [address] Dr. Ryan Francisco PROGESTERONEon 06-01-2022 Progesterone 18.9 ng/mL Normal [facility] Comment on above: Result Comment: Foll icular phase 0.1 - 0.9 Luteal phase 1.8 - 23.9 Ovulation phase 0.1 - 12.0 First trimester 11.0 - 44.3 Second trimester 25.4 - 83.3 Third trimester 58.7 - 214.0 Postmenopausal 0.0 - 0.1 Performed By: #### Johnathon WEST #### [facility] [address] [place] [address] Dr. Ryan Francisco US PELVIS AND TRANSVAGon [...] by: CLEMENTINE DEWEY Date: 2022-05-17 17:25 Normal [facility] PROGESTERONEon 04-29-2022 Progesterone 5.1 ng/mL Normal [facility] Comment on above: Result Comment: Foll icular phase 0.1 - 0.9 Luteal phase 1.8 - 23.9 Ovulation phase 0.1 - 12.0 First trimester 11.0 - 44.3 Second trimester 25.4 - 83.3 Third trimester 58.7 - 214.0 Postmenopausal 0.0 - 0.1 Performed By: #### P BRETT ####[facility] [id number] [place], [place] [address]Pf. Ryan Francisco ANTI-MULLERIAN HORMONEon Anti-Mullerian Hormone (AMH) 6.09 ng/mL Normal [facility] Comment on above: Result Comment: For assays employing antibodies, the possibility exists for interference by heterophile antibodies in the samples.1 1.Steffen Wilson Interferences in Immunoassays - still a threat. Clin. Chem. 2000; 46: 7979-4724. This test was developed and its performance characteristics determined by [facility]. It has not been cleared or approved by the Food and Drug Administration. Reference Range: Females 20 - 25y: 1.23 - 11.51 Median 4.70 AMH concentrations of >= 1.06 ng/mL is correlated with a better response to ovarian stimulation, produced more retrievable oocytes and higher odds of live according to Gleyasirer et al. Fertility and Sterility. 2010: 94:7425-4659. The current AMH test method correlates with [...] tumor. Performed By: #### A WEI #### [facility] [address] [address] [address] Ryan Francisco FSHon 04-05-2022 FSH 3.6 mIU/mL Normal [facility] Comment on above: Result Comment: Adul t Female: Follicular phase 3.5 - 12.5 Ovulation phase 4.7 - 21.5 Luteal phase 1.7 - 7.7 Postmenopausal 25.8 - 134.8 Performed By: #### L BCFS #### [facility] [address] [place] [address] Dr. Ryan Francisco LUTEINIZING HORMONE (LH)on 0 04-05-2022 LH 6.8 mIU/mL Normal [facility] Comment on above: Result Comment: Adul t Female: Follicular phase 2.4 - 12.6 Ovulation phase 14.0 - 95.6 Luteal phase 1.0 - 11.4 Postmenopausal 7.7 - 58.5 Performed By: #### L BCL ####[facility] [id number] [address]Dr. Ryan Francisco CBC AUTO DIFFon 04-04-2022 BASO # 0.0 103/ul Normal 0.0-0.1 [facility] Comment on above: Performed By: #### C BC #### [facility] [address] [place] [address] Dr. Ryan Francisco Basophils/100 WBC (Bld) 0.3 % Normal 0.2-2.0 [facility] Comment on above: Performed By: #### C BC #### [facility] [address] [place] [address] Dr. Ryan Francisco EO # 0.1 103/ul Normal 0.0-0.7 [facility] Comment on above: Performed By: #### C BC #### [facility] [address] [place] [address] Dr. Ryan Francisco Eosinophils/100 WBC (Bld) 1.7 % Normal 0.9-7.0 [facility] Comment on above: Performed By: #### C BC #### [facility] [address] [place] [address] Dr. Ryan Francisco Erythrocyte distribution width (RBC) [Ratio] 12.7 % Normal 11.0-15.0 [facility] Comment on above: Performed By: #### C BC #### [facility] [address] [place] [address] Dr. Ryan Francisco Hematocrit (Bld) [Volume fraction] 39.7 % Normal 36.0-48.0 [facility] Comment on above: Performed By: #### C BC #### [facility] [address] [place] [address] Dr. Ryan Francisco Hemoglobin (Bld) [Mass/Vol] 13.4 g/dL Normal 12.0-16.0 [facility] Comment on above: Performed By: #### C BC #### [facility] [address] [place] [address] Dr. Ryan Francisco IG # 0.03 10e3/ul Normal 0.00-0.03 [facility] Comment on above: Performed By: #### C BC #### [facility] [address] [place] [address] Dr. Ryan Francisco IG % 0.5 % Normal 0.0-0.5 [facility] Comment on above: Performed By: #### C BC #### [facility] [address] [place] [address] Dr. Ryan Francisco LYMPH # 1.6 103/ul Normal 1.2-3.8 [facility] Comment on above: Performed By: #### C BC #### [facility] [address] [place] [address] Dr. Ryan Francisco Lymphocytes/100 WBC (Bld) 27.1 % Normal 20.5-60.0 [facility] Comment on above: Performed By: #### C BC #### [facility] [address] [place] [address] Dr. Ryan Francisco MANUAL DIFF REQ NO Normal [facility] Comment on above: Performed By: #### C BC #### [facility] [address] [place] [address] Dr. Ryan Francisco MCH (RBC) [Entitic mass] 29.6 pg Normal 26.7-34.0 [facility] Comment on above: Performed By: #### C BC #### [facility] [address] [place] [address] Dr. Ryan Francisco MCHC (RBC) [Mass/Vol] 33.8 g/dL Normal 29.9-35.2 [facility] Comment on above: Performed By: #### C BC #### [facility] [address] [place] [address] Dr. Ryan Francisco MCV (RBC) [Entitic vol] 87.6 fL Normal 81.0-99.0 [facility] Comment on above: Performed By: #### C BC #### [facility] [address] [place] [address] Dr. Ryan Francisco MONO # 0.4 103/ul Normal 0.3-0.8 [facility] Comment on above: Performed By: #### C BC #### [facility] [address] [place] [address] Dr. Ryan Francisco Monocytes/100 WBC (Bld) 6.7 % Normal 1.7-12.0 [facility] Comment on above: Performed By: #### C BC #### [facility] [address] [place] [address] Dr. Ryan Francisco NEUT # 3.7 103/ul Normal 1.4-6.5 [facility] Comment on above: Performed By: #### C BC #### [facility] [address] [place] [address] Dr. Ryan Francisco Neutrophils/100 WBC (Bld) 63.7 % Normal 43.0-75.0 [facility] Comment on above: Performed By: #### C BC #### [facility] [address] [place] [address] Dr. Ryan Francisco Platelet mean volume (Bld) [Entitic vol] 9.9 fL Normal 9.5-13.5 [facility] Comment on above: Performed By: #### C BC #### [facility] [address] [place] [address] Dr. Ryan Francisco PLT 421 103/ul Normal 150-450 [facility] Comment on above: Performed By: #### C BC #### [facility] [address] [place], [place] [address] Dr. Ryan Francisco RBC 4.53 106/ul Normal 4.20-5.40 [facility] Comment on above: Performed By: #### C BC #### [facility] [address] [place], [place] [address] Dr. Ryan Francisco WBC 5.8 103/ul Normal 4.0-11.0 [facility] Comment on above: Performed By: #### C BC #### [facility] [address] [place], [place] [address] Dr. Ryan Francisco FREE T4on 04-04-2022 Free T4 [Mass/Vol] 0.99 ng/dL Normal 0.76-1.46 [facility] Comment on above: Performed By: #### F T4 #### [facility] [address] [address] [address] Ryan Francisco TSHon 04-04-2022 TSH 3.086 uIU/mL Normal 0.358-3.740 [facility] Comment on above: Performed By: #### T SH ####[facility] [id number] [place], [place] [address]G[address] Ryan Francisco US PELVIS AND TRANSVAGon US [...] by: LUCHO MIXON Date: 2022-04-04 16:38 Normal [facility] Auth for Release of Medical Recordson 12-20-2021 Auth for Release of Medical Records [id number]# 1.00CD:127 Normal [facility] Coding Summary.on 08-22-2021 Coding Summary. CD:[id number] Gh0bWw+PGhlYWQ+PE1FV MRzK12ucMIkeK0GB8hSI G5OPFXDVAGWNY1UVW9jr XJ9FPpaM2JlclOv RzcpyIRjFO50UNy7XTX7 uPhaTOdztY0tqSJqK4f1 YwDjLP94eL09WTxlKSHx OnX7DnElfawajWNf M5pwMfYjcQHtUue+PHRh YmxlIHdpZHRoPScxMDAl HjQnzVfsTR2fDu9gVDPj LWNvbGxhcHNlOiBj j5mbRPZnHZpnWI9enRke E4RxbAH3OGIyw0c0Sj73 dHI+PAXiSWE8iKhoJVvl q143FiPek4muCUO5 zNRlRFnvEAC6G62sz9S4 SXSbNHWdVPA1tBI6bV2r xTxzeetmS8BcaPUoFeD2 SKQ4hLWckX7puOyf kiqzlE6nErl+R53XEY2R FXHUMD9KQew4R8PkRepj dHI+DB85KFLjNG44hPOh qGYep5opuCe8YtMs MDHbRBJ5pZhmXLogw8Up PVPaS99ouKLdz5W6ZCAm wQrzcKVdKzRddCX2oW8q KPdevkimn0mdfqie Ixpia8qtln07sJ84N69i AEwuDGOwNAB5AMHuJCJg yHukix5wrP4eTb9+IDxj f4nyr4mvdKu7NuOm LHJdsiTciGhzWDX3q0Uf Il71F7CscLnva5CaPee8 de79hWDsd7F9kMT5NGdo OKKcwK1jZHwxMcI4 XNOfQcHrqE12pXSjGOxs Yc5hbUqddJvkQM6mNQZg xrvhATIhpR8pPJXyhVIy hZhsOR9oGMNrvceo q286WoJjPAO4SWXlcKFu J2TtkM5yZzIdBKZyIROj X1GeaEEjYMxsX112RKmn NlG6NFQvmaHmS1Hn NTHrnSqhFfK6u9X0Mq6C l6JmexuqDMI6GRfzDFXs ZdD5YcBlUaY1F8DnMnb6 MMDytMzbIE4rI4Jo JTJkvzssnzhohNL6SDYl IRRehM21iHBcCAfpJy2f l2Q0l619BNRlFBEsgH04 Kf5iyLqyJWKicSHI oI3kkgdjy8xovjojYkKm XVTkPZo4NNg3XHRnmTyd IiJiXIN9OnE4IYQ1lSXa cR7ixFngugbtaT4p Oyc+K97tzI7hTTZ8VDB1 iaffLFOsfpBkDG03WG96 Q6ZvAzfdfLPzwCT+PGRp euUmpQpxQK6bRcVu q2vqy8JcGIeqR8XeWHSv AIiiBeb7RCWmANR8rQC2 zF7yJPNuWQthz9C8uBK0 M0ZmpbUnpj0ln1mc SALcUCszR17jjFMqz9U4 NMXkdNZ8BPRrvXddIhGz rV29Osx+SZJtdZywk7Og Crbhf4lxk7umwWv9 IjMwJSIgdmFsaWduPSJ0 z8UkHx60I50fVLvnUFYc BULsJIWzZGBwxEddpr5p vG4wNs2+PGNvbCB3 tPU8fI7qHTIpJeE9HFiv M546GtRgdCUqNrbrv9pf u8aagJg4FsVoBOGmlyUp ePflZLJ7i0IxGt97 E75lJTfoFEQmZQKxAQWx TMZvuKscwq3ynQ5kUp2+ ZE9io8vvrw42aI74wRY+ NTCcLTX1jVhnXScb HZWmdP5xWZoaJeI8NZQy BaEzxC07nTDdFFjoAk5o kIpfuZkeDK5vWDCfqubo b233IqLke7trTFRl mSLsCWoiSTB1L60po5E3 JUOwXBEbMBQ2uVK8jN2c bGlnbjogbGVmdDsgdmVy tTezESanEJmsC008 IHRvcDsnPlBhdGllbnQg KkZmBRv8P8ZcHdr4QOXl nNgoMD5poORfJClkWi4r yBbyvRhgUP7pTOKj mrnka163VtAmi3fjMCAe qQGpPHnqRPC0L93br2J7 CMQjPMTsLDT5xZJ7fV5q bGlnbjogbGVmdDsg gmXldZogQYdgVUtxS012 IHRvcDsnPkJpcnRoIERh gMA6QO18NY86fHOwf6X4 jSE5Z5LaKLQwyesk wtlprCT1ARCrEJMspW81 Yt5xxDtlKe5xDARhXTD7 ZSCkmQReQ7KtoV3uUdBb IXDpMGFaT1HkiYFy ZQmhA194QWfzPtV7AHZe eyBfP2DhUMPfiJokLnS3 s0H6Kx1WF3M5QL67PI78 cGVvr4G1hDW9X7Rt ZTGpkmlascjtsLP7YUHa ZBMvdT32Hz7twIynSc0r QRGkMMV6HYFgpEWgG8Gb bZ1qVlRxXDLrBQDg I3VwtLKgXIxvJ329LMnb StH6HIEypoJtM2WdKOWt wDcvXgD4f8X7Pb5EJFw1 EE87HA46xPDwr7T8 bLE3U4UnWZBgzzxhkfxu oWV4FAVhIJJwiW83Gg9h wTecIg0pDOPrEFV0URBu kGFzA3QfeC2jFpDh CGDiSYHiC3ZweHTdRRqj H040VEihKnN8UQZddfGv U2CoTARfeAhaBeS7s6E3 Ha7ENIOeIJ73SKD7 kGU3ZN74QD04J6CbFmke dGFibGU+PHRhYmxlIHdp ZHRoPScxMDAlJyBzdHls TA9uEz2rPDPsVTHw aGphnLWqYePev0sbZOSa DIigJW3tfRiwG2AhvTU8 BIOeu2h6Qt61G39wB3Lp dXA+PETwnAU7qZY7 oO4yVqXbTfR9RRvcI656 MsYfuPQzHgvvm9hpn8vv nAi4OwX2LSCminHlgOce SJL6m7WzLd83O26t IHdpZHRoPSIxNSUiIHZh rIyuro3raV6xHn5+PGNv vBM2hJX3nI5vOfOxSnF7 GWvzT403BxSviIIf Gcbbi6rgq3vrySs4EvLb REJumbCpqYzbAWO0r4Db Mj40D8HjfRjsh6BcTwx4 mp59zEGob7F6nUJ3 B9CaOAQlxyyrgLAspWcw TZ2xZMVlxmodJRXloS1t JMUiJ9v2MwTtDwC4UPnh J8VkuvE5SVLupNLd FPiuMSE8G70sq4N0PMNn HLFjITD7qKG5tQ5ygRlk bjogbGVmdDsgdmVydGlj RGkwEOizR745NBSb jCxrHVUaqH9uZJIhfWFr bFsvNS1kPVMumdvzWjjK VMRgNMvBMSWTKK77AX97 vSFvy9R6vGZ1S3Rx KQRhwsmscraqwSY1FHSa PFRdvG29nGZuWAokVt8b n4S6t588WHXoBANdiK75 Xx9smJimGIFmrTEF jI1akbaek4gmrqgsTiCh GUDjTVc0ZJv0ASBpfKyg WcBoICF5XtU5PBQ3lWHc uH5djFrpnmxtvZ0o Oyc+MNHyVmavZNl9JPig dGQ+CQQbPPB3zGfrPSyy HSDbeY2iKPUjK5n7AdMl MnZ8SHwiH3GuZMYv itleJp28mU9gLeYmNuN1 DCjeT0PzmgJ7NAMnhXRe DRlkZQO0W57tk2H5ORSd KNJkLMP7nBK1uH1v bGlnbjogbGVmdDsgdmVy uWfbPWbrKTwjW719BMIf oFgvMjXgCUhvEMVaXP17 LU56sWJsu8F9vDW2 K7CdVDWkbhigalwdrYA1 ROTvGKNnnC86yAYsVCeg Ql2au7P6e216GNJhKRTb yT72Gl3etZgkFWLl gSTTrV7ahofdh5zmsdoj PbNrIETvLZz7IQd8UICi pWscYfEtTWO9QoH1CRR6 cQAqlT9jxYzpbtfw bP9yQby+NlPhWOzqLO29 TA51kVEqn1K5dOY3H4Fz WPGtleydunqhwYB2MYGf HFAkdI92uFOrIJpr Nt0kz1X1t905GLBxIMIx oQ80Vn2rmKotGNPptFPL wL3dizflo3jxrfekKpNq FLMsJEx1ZSe9UQGw lMmiByXoFFS1UwB2HPA4 cCNweN7mhKgbmpbefD6a Oyc+W5E0hMJ3vQBldOpc dGQ+GX09ds49K4Fn MkusCxh9QOKyGNF8nHV5 uR0rKLPfFJmgu2Q9cSX9 P6IhfwRmrq9pr9clWPKz YMkoA74jtSZlw1K8 QLFuqLY5WZNibKruHtKt aA33Nee+QAPigKuxm4Qn Yxbvw1xcf2sfoIm1ZtAb JSIgdmFsaWduPSJ0 y2GhYa35P43rREfrXDMh OCJhTBVhVSQyeXgvmn1p nH0dJe7+AJLjvIS7fUI3 bB3pPrQoJkP7HVpk J285DfLahROnXmkdz4my k3uulPe4TfZlLLDdzxNl rXdrMFM4n6ZcIp31E1Bt kOwqh6KzDdh1ur12 bWYss2F5gYM4U1NxSBQa mrclvJLmaZrrMM6sREEj cufhRQShsO6wXSXqY1b1 EsSpOyI6KPmfS2Ib omO6LAVmjHQiHCKzoTOU oD1inrgel8uqlfbiWyBd FQRqGJl3KFa2ANNoyDcs GfWcNLD9TfP1BMD9 cMTmgS9aySvsdestwF0o Oyc+PUh8c9xwiJEeDC8m lBX3EC92YJ82xRXac1X7 zCE0G0KvALZytrie htuihNG0ODGuEZDtuB55 Wt4lpMnbLg8yXVFpJRV1 MGBkwPIcW0DqqL7nLsBk BJOcUOYaX4NtbBMm SKfhP605ZHdfUyZ7FDCm ncIhH7DwZDWbuBeaAuC5 x6A1Ko3PHJ35ZP82UP20 cIGjr7T8fNS5T5Uq ZSIgksplcxxoxCB5OXGa ZKXazU61Ib8ajXcrLf6a OKJhHMJ6YYQcsNAxI3Ia vC9wVgUhSSVzNEFp Y1IncYDzJSflI971NDyx MfY2TLIkgzInR9NlWWMa yFrnIfP6y5N6Xd7HVz19 TV00AZ48jBKex8F9 lYQ6O1WoGOZdyfgzsmey yPL5IPLoRNZgsJ45Mz6k rWufBo1lWZTkIIE6DUFr sXVgG6SidR0hUkQd LGSmSIEaC5DcbQVtOTon H107GKxsRgC1VFDwznLg K3RoTGCzlOwkEoD2m6D3 Iz7HTIsazkq5W7Hm PjwvdHI+PX28JBNsXE07 nUBapMRfl6kbcCx5VeAx VSLwDXZ3dJsuCHmew4Ye PFAvA90uxEPnk6M7 IGNv (more content not included)... Normal [facility] Coding Summary. CD:[id number] Gh0bWw+PGhlYWQ+PE1FV WYaR40btCSbzT4TS3yVD Z4ERFBIUFQFGA2WST1qu CB6DIdpE2RurzNp GqaeyWEpSI64KNd7AQN5 wMhzPPomzJ6qvBRkU7d4 BgIqDA73xW36DKjdTLEy TqW1HxPjahjzfTTo I6xpIyVvyVMyWzo+PHRh YmxlIHdpZHRoPScxMDAl PvWezDomVT9hOb2jGHHu LWNvbGxhcHNlOiBj n5igXCEcTEtzSY1oaVrs O6UyeBC6CMXxc9t7Lc95 dHI+ORXxOQX8aXoeHHfz a417PdGti8akEPL0 nUGrKLrhZCN6N34gd4F0 ELGfGBEgRQL7cMX4mB6f jSvzgfumJ7TpiISmWeX3 PFZ6nLPkbM4qeTmf jqthkU0uVic+I46LKS9Y GIGGXZ6QVob8P2EbTpak dHI+EU40YVOuJU83sIHl lNLha6xldDn3NbGn TFSqTZN9zLkmCGxwx1Rh XXPlN08moKAmw4M5HFXu wOciqEKbIgXuoUF5iN7q HJkjtywta9cqyuvn Kzdqm7fvak55eS10I27w BYrxYETfPIC0DZTxXOUl dHspnt5swP1iDp9+IDxj e0alj5jacTa7HcFm MZXitaZlvApnQWE6s7Nb Tz32L0EueIkam1PgCts1 ex69lFXdf2O2cIU3YSrc LXWkqM2xTCtjYdH9 DLZiRuPgoC12yMRgLZzt Tk7pbPtqaWlbQL3sJWHd rhzgPRQncF3xBETvcDSs zOufHP8eMBUbbuvi s232PoFdJSO5WAZbxGYy U6WdsH9wPsQnIZIeKWJd X2UhuWMjRTchO229CEoy QnX2LYZyyuVsZ2Ze VOEvfYniDxK6n4O6Zs4I x2HlcwkiWEF0ALwwRWId UtO7ZcGvSjP4R5HpPyh7 WZBqvQuwGT7mO6Zu TOErkmhcwdmzkRL9ROGm EKNjfM14cQAwORfhRx2r d7I9w967JONbHNNwlG72 Gf0lcMgkIHLemZON dF5eltljg7euhpglLgPq NUFyYVq7EEr7ELLpuBka HqJzYFE6QuB1WBE3vMRt iH7hcNbjkoptgL6q Oyc+X59cpN1xJMH8UJD0 dhpbROCznqHpWO81UQ09 K0BjOmgreNOkwJP+PGRp egKtqFvrSG5wUqTl g4aoq2VtPUfzM8YfEVEm ISyeNgy9AJKxVOO5sYW0 cV4cGBJsRVcom5F5aXF8 S6BvecOori9td0bd FRLtVYgkS10dqEUkg5K7 BFMhdTD8LZBdfYidLmMx cQ21Ljq+XKCqjCbrf2Wm Tohjs7swf7mdxEv3 IjMwJSIgdmFsaWduPSJ0 p4DwOn56F74pWAdtPWZv FFFnDKRiOKGctPwgio6x sE6nXz3+PGNvbCB3 qNM9eH3yXCAyThY2OPmg R466EtYovXBhZittp8wt n0qgfAv3NgBuDOUfdvSu jCqgWAU7l9NqMz37 M89mODtrRZHpIWIdFNHy UIPfsWvnen9yoW7hFt1+ XD5yw0ntah28gS70hEY+ DUZcZYA3sMuoJLuv VEIckD2tIAdoDbI8KDZe NdQntN45eYTaATkaTk3c uAiyaMfsBT6nDQIorybo n062EuNer7pbMMCi wPJoXDytQMS1Y58bq4D4 TPYyJSRaOAL8jVB6uO9m bGlnbjogbGVmdDsgdmVy cBakYXixQNqkM694 IHRvcDsnPlBhdGllbnQg YzOrXLp8H5SnBca8ZJEx dHhxZP5ulKGaOGwuBu6w kMzmlEyqIZ5pZKEf osowf478ZkGoe7xyPDKs kNPjQKccWWA6F47fd9U8 IVTgFQDeQIO5tEI0bW6y bGlnbjogbGVmdDsg kyWyvLauRIruOFeuU421 IHRvcDsnPkJpcnRoIERh zOF5NU62LO38kDAog0E4 gWX8S8IrYHMaqfiu vwqjpUF1UBHuNVDqtK44 Zt6ogOeiAo4kKVPvHZR2 UFVheOYtN5UolW7xNoGk WDSoCETbN1UqjKWc HMifX969BVpxTfB1BOKk hwLtE8LgXLRvrLwkZdH3 j9L5Wg4SI3E8PV82ZY25 qEGwa3K3kSC6P9Xb ACDucyfnyfyfaYM0YKLz TBTeoJ00Pe5tpXlsEs4z CSUpYPP1IYOcxYHvX2Oj lA7kGgMzGWBiYILa M3EnzQBxGUqrY915XEwy EqK1IJOnwtLaY1VlEBEq uLtdLeH4f0O8Uz2TZBr5 VW45IB32xFImo0K5 rPM1D6VhKWDhtasaivws vEL3OCCmNXVybE59Cn4w aNwvJf8xIPLmLDH8DWXz rWKhH1MwmC2rPrNw LRCrYYHmU2PxlHMgKLjo I860NPciOxS2NLWwwkSf O0XhDDKcdUnxBtR9m4U7 Ni6XXFZdXH49CUB6 wZA7JZ64TD80K5LoXfde dGFibGU+PHRhYmxlIHdp ZHRoPScxMDAlJyBzdHls FL9cQx7oMXMvWQLy bYcsbLHgRnNbf7jnTJLe SUgdUS0vuAhtS1PsgVF5 DZKwk5z3Ow97F07nL5Ai dXA+UCEedDE0oYJ2 iI5vSqLqMvY6TXzcX009 RuHrtZPlJxweh3azf6mr wSa9QtP1HRBmaiGdyWku KSA8t6UbHb05S16l IHdpZHRoPSIxNSUiIHZh qWrrbx6wwC2jVm4+PGNv hYQ1nWX8xQ3sHgWcIrD3 BMtmK600MkPsrGLm Yndtz3lvf1anoTu7MrFj CUOuqnGksJslNZJ8i0Cr Ar21K5LjcQuxm8EuQdn8 uk13pDRcs5X6eMC2 G2TaYDFczfeveDKzlEkb RP6iNHOvntlpTKRlbN2b PRIyF2h5XzWhNmF0WWnh Y5TybgO4POUblTVi ZAjyQOG7K19bn1O0UCLy WNJhWSD3xZD7gD0hxVzd bjogbGVmdDsgdmVydGlj YZwoHLcjU169XBBi tDkcSOWzkZ5gTWDyjUYy cFqeQR3oKRVrqjfrYryK LZNgBLaAFKKRZT22YD56 gTKvl8K9aPM7R5Ps CKUyulokhitioXV2XCCp FYHvsD75lKTfIYdvSq1s f1J3s559PXPbYOMpqO85 Ld9uuRzvCPReiUZL iK6piimzc0kragasImMp ONOcSJh7TCv4ILOdiQdf IrRuVMO3RcM4ZRG6fQMa lQ6mlXjrjhaawB9s Oyc+JWSlIjofWEu3PNwr dGQ+RRDwLEZ9sTvtLCim ZHZyhR1uCVLgG0x4GiRz SqU7MYfbH5PbMGXh qqzcXs78bW0vKaFqAfI2 EMeyN3AphpO7ZCBtaWCy AYtiHQJ9B69ig7L1ABSe FNIlMPM3sLU8sG6n bGlnbjogbGVmdDsgdmVy qYvmXSzqPEfsV908LRTx mGipHpWxPPoiOPPqIX51 WI77yUQnd3T1iIP3 U1NtCMYlzkxcqacldCX3 OGLzXUMluZ50dWYyOSjb Iu4ma9S4u438YBWeMSJr cL54Rq2vsKzvZLTw uNGTiY2dkffnk4meimzy KmMmSISyGQj0WNz9EAFt eLctDkGeTBY6OlH9FYU0 wWRqiM8ewKwnhocp tV4tWaa+NhQkAMfwBO87 TL68qQNdc7X3vIV2A2Ea GUMyijqjptgfyQV3RMJr PKOicO85qNGhDKoz Ct5nk1T6y091TLDbYXDd eY68Df4nvCjmDBDooFPW qG0lungot9dutmwuXrZk UPMvMLj2RZo4IJPx nBxeMoPlJAI1PsN1ACY2 mPQgnM7njDxveyvuzK2r Oyc+KWUdVGYgv4Uxj3Oj WO94SM75N0LuJmmn dGFibGU+PHRhYmxlIHdp ZHRoPScxMDAlJyBzdHls ZO1rCy2nMTSjJFNviZpw jPPqRqXqt5fkMANs HZvnYR5luBrpJ9FwzRC3 PPUkd2w1Np19V95yW1Tq dXA+EWKvtQG9kHX8cW7q WnJxQgN2LXjlW300 HaTioOYaZuivr9fjj5yf eSg9FsIfRVJflyXrmNdf CQI8z8CzEs23T73sCDhp ZHRoPSIyMCUiIHZh aNbqil6zxA8pLe4+PGNv sQD9qTF9dC6vJnIqYhZ9 EKcwK218FkUrcYHhZfij K77vD7PvhSG+PHRy Izd0YQBlhYkjPX7vkISl IZnhEq3bTYH7GsMnGhXx ZIfaT5PnTDUaozxwfwsk xAV5YLFhZECucI64 Qm8moSobWb7zFSHfJSL5 HSVgrFBsE7JlqU0nRqBv CFLcIWUtM6TkoQAgSQbl P165ESyiVoO8PRXf zyNvP8WjBTNnzZvoQpI2 f5C8Sp9LjYntmPYuQT7c LrVbLJz7I2PrAnj9NRSj uRlzRL2kfXDqSGbd Ir0hpRnevUviML3gGSWk lmcus805LoTju6vzHGYl oESkCMbxARU9E33tc7F6 VJCsNBRvBRW3cDO6 sP9jkBculgvfdZTvvFmm jfFosJbgMKqqKIikX104 LMApzMypUyXYVus9Z1Ze Wpg5CIHzyWjmIG7s nLWfECswIw6ukZxawAbs VM4lSTKldsltx431MiLs o1dhYFJdfCPeWSgvIBR2 B22gi1S0FKCnPOWt XMF5xCR7hX1fdOqxvpww bGVmdDsgdmVydGljYWwt NItmN115KFYduZnyXy3G Yme8R1PsWbr1LJHs iQsuGX3qsCWuGTskYa2q gIzqlBpyWP0iTOOzitje y924CaZyu3cjZVXnoWEe VNylPRT7N78ak4X1 VJSdGNTbXSX0sIU2jG3h bGlnbjogbGVmdDsgdmVy pFxdYBylSGaqT299YKQs cDsnPlBheWVyOjwv dGQ+AA56xc21G8RmArtp Yfh0CZIxHAP9pCK9fP1z ZIQeKJwzq6U5aXN8J3Ip ucNgrp3qe4xlFIRq ZTog (more content not included)... Normal [facility] PAP [id number] 08-15-2021 Cytology report Cyto stain Doc (Cvx/Vag) Note Invalid Interpretation Code [facility] Comment on above: Result Comment: TEST S RESULT FLAG UNITS REF RANGE LAB Clinician Provided Cytology Information Source.............[employer] No. of containers..01 ThinPrep Vial DIAGNOSIS: 01 NEGATIVE FOR INTRAEPITHELIAL LESION OR MALIGNANCY. Specimen adequacy: 01 Satisfactory for evaluation. No endocervical component is identified. Performed by: 01 [employer] (ASCP) . 01 Note: Note 01 The [...] <-Panic Low,>-Panic High,A-Abnormal,AA-Critical Abnormal Performed at: [address] [id number] Mar Rivera MD, Performed By: #### 1 [id number] #### [facility] [address] [place] [address] HPV 16+18+31+33+35+39+45 +51+52+56+58+59+66+6 8 DNA Probe+sig amp Ql (Cvx) Negative Invalid Interpretation Code Negative [facility] Comment on above: Result Comment: This nucleic acid amplification test detects fourteen high-risk HPV types (16,18,31,33,35,39,45,51,52,56,58,59,66,68) without differentiation. Performed at: WB [address] [id number] MD Nicole Manuel Performed at: =G [address] [id number] MD Nicole Manuel Performed By: #### 1 [id number] #### [facility] [address] [place] [address] [place] [address] Insulin Lvlon 08-11-2021 Insulin Qn 24.3 u[IU]/mL Invalid Interpretation Code 2.6-24.9 [facility] Comment on above: Result Comment: Perf ormed at: CB [facility] [address] [id number] PhD Archie Jha Performed By: #### 1 [id number] #### [facility] [address] [place] [address] Consent for Treatmenton 07-29 Consent for Treatment [id number] #1.00CD:127 Normal [facility] Glu Fastingon 08-10-2021 Glucose [Mass/Vol] 95 mg/dL Normal 55-99 [facility] Comment on above: Performed By: #### 1 [id number] #### [facility] [address] [place] [address] Physician Orderon 08-10-2021 Physician Order [id number] 2#1.00CD:127 Normal [facility] PAP [id number] 08-09-2021 Collection Technique BRUSH-SPATULA Normal [facility] Comment on above: Performed By: #### 1 [id number] #### [facility] [address] [place] [address] Gynecological Body Site ENDOCERVIX Normal [facility] Comment on above: Performed By: #### 1 [id number] #### [facility] [address] [place] [address] Physician Orderon 08-09-2021 Physician Order [id number] #1.00CD:127 Normal [facility] Gynecology Office/Clinic Not pratik 02-17-2019 Gynecology [...] Family History Family history is negative Normal [facility] Comment on above: Result Comment: Elec [...] Family History Family history is negative Normal [facility] Comment on above: Result Comment: Elec tronically Signed By: Shamika ISAACS, Kaley Wilson\.david\Date and Time Signed: 02/17/19 12:09 EDT Vital Signs Date Time Vital Sign Value Performing Clinician Facility 09-08-2024 08:28-0500 Body mass index (BMI) [Ratio] 35.56 kg/m2 [facility] Work Phone: [facility] 09-08-2024 08:28-0500 Body weight 88.18 kg [facility] Work Phone: [facility] 09-08-2024 08:28-0500 Diastolic blood pressure 90 mm[Hg] Immanuel Yobani DO Work Phone: [facility] 09-08-2024 08:28-0500 Systolic blood pressure 132 mm[Hg] Immanuel Yobani DO Work Phone: [facility] 08-27-2024 11:45-0500 Body mass index (BMI) [Ratio] 35.08 kg/m2 Immanuel Yobani DO Work Phone: [facility] 08-27-2024 11:45-0500 Body weight 87 kg Immanuel Yobani DO Work Phone: [facility] 08-27-2024 11:45-0500 Diastolic blood pressure 82 mm[Hg] Immanuel Yobani DO Work Phone: [facility] 08-27-2024 11:45-0500 Systolic blood pressure 122 mm[Hg] Immanuel Yobani DO Work Phone: [facility] 08-12-2024 11:08-0500 Body mass index (BMI) [Ratio] 34.93 kg/m2 Immanuel Yobani DO Work Phone: [facility] 08-12-2024 11:08-0500 Body weight 86.64 kg Immanuel Yobani DO Work Phone: [facility] 08-12-2024 11:08-0500 Diastolic blood pressure 80 mm[Hg] Immanuel Yobani DO Work Phone: [facility] 08-12-2024 11:08-0500 Systolic blood pressure 120 mm[Hg] Immanuel Yobani DO Work Phone: [facility] 07-20-2024 11:00-0500 Body mass index (BMI) [Ratio] 34.39 kg/m2 Immanuel Yobani DO Work Phone: [facility] 07-20-2024 11:00-0500 Body weight 85.28 kg Immanuel Yobani DO Work Phone: [facility] 07-20-2024 11:00-0500 Diastolic blood pressure 76 mm[Hg] Immanuel Yobani DO Work Phone: [facility] 07-20-2024 11:00-0500 Systolic blood pressure 122 mm[Hg] Immanuel Yobani DO Work Phone: [facility] 06-22-2024 14:31-0500 Body mass index (BMI) [Ratio] 34.2 kg/m2 Immanuel Yobani DO Work Phone: [facility] 06-22-2024 14:31-0500 Body weight 84.82 kg Immanuel Yobani DO Work Phone: [facility] 06-22-2024 14:31-0500 Diastolic blood pressure 78 mm[Hg] Immanuel Yobani DO Work Phone: [facility] 06-22-2024 14:31-0500 Systolic blood pressure 124 mm[Hg] Immanuel Yobani DO Work Phone: [facility] 06-15-2024 10:27-0500 Body weight 84.82 kg Cele Rodriguez MD Work Phone: [facility] 06-15-2024 10:27-0500 Diastolic blood pressure 88 mm[Hg] Cele Rodriguez MD Work Phone: [facility] 06-15-2024 10:27-0500 Heart rate 99 /min Cele Rodriguez MD Work Phone: [facility] 06-15-2024 10:27-0500 Respiratory rate 18 /min Cele Rodriguez MD Work Phone: [facility] 06-15-2024 10:27-0500 Systolic blood pressure 137 mm[Hg] Cele Rodriguez MD Work Phone: [facility] 05-25-2024 11:46-0400 Body mass index (BMI) [Ratio] 33.84 kg/m2 Immanuel Yobani DO Work Phone: [facility] 05-25-2024 11:46-0400 Body weight 83.92 kg Immanuel Yobani DO Work Phone: [facility] 05-25-2024 11:46-0400 Diastolic blood pressure 74 mm[Hg] Immanuel Yobani DO Work Phone: [facility] 05-25-2024 11:46-0400 Systolic blood pressure 118 mm[Hg] Immanuel Yobani DO Work Phone: [facility] 04-27-2024 10:35-0400 Body mass index (BMI) [Ratio] 33.75 kg/m2 Immanuel Yobani DO Work Phone: [facility] 04-27-2024 10:35-0400 Body weight 83.69 kg Immanuel Yobani DO Work Phone: [facility] 04-27-2024 10:35-0400 Diastolic blood pressure 76 mm[Hg] Immanuel Yobani DO Work Phone: [facility] 04-27-2024 10:35-0400 Systolic blood pressure 122 mm[Hg] Immanuel Yobani DO Work Phone: [facility] 03-27-2024 10:27-0400 Body mass index (BMI) [Ratio] 34.53 kg/m2 [facility] 03-27-2024 10:27-0400 Body weight 85.64 kg [facility] 03-27-2024 10:27-0400 Diastolic blood pressure 70 mm[Hg] [facility] 03-27-2024 10:27-0400 Systolic blood pressure 120 mm[Hg] [facility] 01-02-2024 09:15-0400 Body height 157.48 cm [facility] 01-02-2024 09:15-0400 Body mass index (BMI) [Ratio] 33.9 kg/m2 [facility] 01-02-2024 09:15-0400 Body temperature 100.2 [degF] [facility] 01-02-2024 09:15-0400 Body weight 84.08 kg [facility] 01-02-2024 09:15-0400 Heart rate 115 /min [facility] 01-02-2024 09:15-0400 Respiratory rate 18 /min [facility] 01-02-2024 09:15-0400 SaO2% (BldA) [Mass fraction] 99 % [facility] Encounters Encounter Date Encounter Type Care Provider Facility Start: 09-12-2024 End: 09-12-2024 Clinisync Result Encounter Immanuel Yobani DO Work Phone: [facility] Unsolicited Start: 09-12-2024 End: 09-12-2024 Clinisync Result Encounter Immanuel Yobani DO Work [...] flowsheet Immanuel Yobani DO Work Phone: [facility] Start: 07-20-2024 End: 07-20-2024 Bamboo flowsheet Immanuel Yobani DO Work Phone: [facility] Start: 07-20-2024 End: 07-20-2024 flow sheet Immanuel Yobani DO Work Phone: [facility] Comment on above: 26 weeks gestation o f ; Diabetes mellitus screening; Second trimester ; PCOS (polycystic ovarian syndrome); resulting from in vitro fertilization, antepartum; Gestational diabetes mellitus (GDM), antepartum, gestational diabetes method of control unspecified; Elevated glucose tolerance test Start: 07-20-2024 End: 07-20-2024 ambulatory IMMANUEL YOBANI Not Available Start: 06-22-2024 End: 06-22-2024 Bamboo flowsheet Immanuel Yobani DO Work Phone: [facility] Start: 06-22-2024 End: 06-22-2024 Bamboo flowsheet Immanuel Yobani DO Work Phone: [facility] Start: 06-22-2024 End: 06-22-2024 flow sheet Immanuel Yobani DO Work Phone: [facility] Comment on above: Second trimester pre gnancy; 22 weeks gestation of ; Personal history of cardiac murmur Start: 06-22-2024 End: 06-22-2024 ambulatory IMMANUEL YOBANI Not Available Start: 06-15-2024 End: 06-15-2024 Office consultation new/estab patient 60 min Cele Rodriguez MD Work Phone: [facility] [place] Comment on above: 21 weeks gestation o f (Primary Dx); Chronic hypertension affecting ; In vitro fertilization Start: 06-15-2024 End: 06-15-2024 ambulatory CELE RODRIGUEZ [facility] Start: 05-28-2024 End: 05-30-2024 Clinisync Result Encounter Immanuel Yobani DO Work Phone: [facility] External Department Unsolicited Start: 05-28-2024 End: 05-30-2024 Clinisync Result Encounter Immanuel Yobani DO Work Phone: [facility] Unsolicited Start: 05-27-2024 End: 05-27-2024 Chart abstracting Cele Rodriguez MD Work Phone: [facility] Start: 05-25-2024 End: 05-25-2024 Bamboo flowsheet [...] 04-08-2024 End: 04-08-2024 Clinisync Result Encounter Immanuel Hilton DO Work Phone: [facility] External [facility] Unsolicited Start: 04-08-2024 End: 04-08-2024 Clinisync Result Encounter Immanuel Hilton DO Work Phone: [facility] Unsolicited Start: 03-27-2024 End: 03-27-2024 Office outpatient visit 5 minutes [facility]ani Nurse [facility] Comment on above: GA: 10w1d Start: 03-27-2024 End: 03-27-2024 ambulatory IMMANUEL HILTON Not Available Start: 01-02-2024 End: 01-02-2024 ambulatory JOHNNY FERNANDEZ Not Available Start: 01-02-2024 End: 01-02-2024 ambulatory [facility] Work Phone: Start: 01-02-2024 End: 01-02-2024 Patient encounter procedure [facility] Work Phone: [...] Date Procedure Procedure Detail Performing Clinician Start: 09-12-2024 [facility]H TOTAL PROTEIN 24 HOUR URINE Immanuel Yobani DO Work Phone: Start: 09-09-2024 US OB BPP W NON-STRESS [...] malign ant neoplasm of cervix Pap Smear [facility] Start: 06-15-2025 Tobacco Screening Tobacco Screening [facility] Start: 09-22-2024 End: 09-22-2024 Patient encounter procedure 09/22/2024 9:20 AM EST Routine [facility] [address] [place] [id number] Immanuel Hilton, DO [address] [place] [address] [facility] Start: 09-08-2024 End: 09-08-2025 Alanine aminotransferase [Enzymatic activity/volume] in Serum or Plasma ALT Lab Routine induced hypertension, antepartum Expected: 09/08/2024 (Approximate), Expires: 09/08/2025 [facility] Comment on above: Expected: 09/08/2024 (Approximate), Expires: 09/08/2025 Start: 09-08-2024 End: 09-08-2025 Aspartate aminotransferase [Enzymatic activity/volume] in Serum or Plasma AST Lab Routine induced hypertension, antepartum Expected: 09/08/2024 (Approximate), Expires: 09/08/2025 [facility] Comment on above: Expected: 09/08/2024 (Approximate), Expires: 09/08/2025 Start: 09-08-2024 End: 09-08-2025 CBC W Auto Differential panel - Blood CBC and differential Lab Routine induced hypertension, antepartum Expected: 09/08/2024 (Approximate), Expires: 09/08/2025 [facility] Comment on above: Expected: 09/08/2024 (Approximate), Expires: 09/08/2025 Start: 09-08-2024 End: 09-08-2025 Creatinine [Mass/volume] in Serum or Plasma Creatinine Lab Routine induced hypertension, antepartum Expected: 09/08/2024 (Approximate), Expires: 09/08/2025 [facility] Work Phone: Comment on above: Expected: 09/08/2024 (Approximate), Expires: 09/08/2025 Start: 09-08-2024 End: 09-08-2025 Lactate dehydrogenase [Enzymatic activity/volume] in Serum or Plasma by Lactate to pyruvate reaction Lactate dehydrogenase Lab Routine induced hypertension, antepartum Expected: 09/08/2024, Expires: 09/08/2025 [facility] Comment on above: Expected: 09/08/2024 , Expires: 09/08/2025 Start: 09-08-2024 End: 09-08-2025 Protein, urine, 24 hour Protein, urine, 24 hour Lab Routine induced hypertension, antepartum Expected: 09/08/2024 (Approximate), Expires: 09/08/2025 [facility] Comment on above: Expected: 09/08/2024 (Approximate), Expires: 09/08/2025 Start: 09-08-2024 End: 09-08-2025 Pt and ptt Pt and ptt Lab Routine induced hypertension, antepartum Expected: 09/08/2024, Expires: 09/08/2025 [facility] Comment on above: Expected: 09/08/2024 , Expires: 09/08/2025 Start: 09-08-2024 End: 09-08-2025 Urate [Mass/volume] in Serum or Plasma Uric acid Lab Routine induced hypertension, antepartum Expected: 09/08/2024 (Approximate), Expires: 09/08/2025 [facility] Comment on above: Expected: 09/08/2024 (Approximate), Expires: 09/08/2025 Start: 09-08-2024 End: 09-08-2025 Urea nitrogen [Mass/volume] in Serum or Plasma BUN Lab Routine induced hypertension, antepartum Expected: 09/08/2024, Expires: 09/08/2025 [facility] Comment on above: Expected: 09/08/2024 , Expires: 09/08/2025 Start: 09-08-2024 End: 09-08-2024 Patient encounter procedure [facility] Comment on above: Arrived Start: 08-27-2024 End: 08-27-2024 Patient encounter procedure 08/27/2024 11:40 AM EST Routine [facility] [address] [place] [id number] Immanuel Hilton, DO [address] [place], [place] [id number] [facility] Start: 08-27-2024 End: 08-27-2024 Professional / ancillary services management 08/27/2024 11:00 AM EST Ancillary Procedure [facility] [address] [place] [id number] [facility] Start: 08-12-2024 End: 08-12-2025 [...] End: 06-15-2024 Patient encounter procedure [facility] Start: 05-25-2024 End: 11-23-2024 Alpha fetoprotein, maternal Alpha fetoprotein, maternal Lab Routine Second trimester Expected: 05/25/2024 (Approximate), Expires: 11/23/2024 [facility] Comment on above: Expected: 05/25/2024 (Approximate), Expires: 11/23/2024 Start: 05-25-2024 End: 05-25-2024 Patient encounter procedure [facility] Comment on above: Arrived Start: 05-05-2024 End: 05-05-2024 Professional / ancillary services management 05/05/2024 2:30 PM EDT Ancillary Procedure [facility] [address] [place] [address] [facility] Start: 04-27-2024 End: 04-27-2025 US Pelvis transvaginal US OB transvaginal Imaging Routine Encounter for screening for cervical length Expected: 04/27/2024 (Approximate), Expires: 04/27/2025 [facility] Work Phone: Comment on above: Expected: 04/27/2024 (Approximate), Expires: 04/27/2025 Start: 04-27-2024 End: 04-27-2024 Patient encounter procedure 04/27/2024 10:20 AM EDT Routine [facility] [address] [place] [phone] Immanuel Hilton, DO [address] [place] [address] [facility] Start: 03-29-2024 COVID-19 Vaccine ( season) COVID-19 Vaccine ( season) [facility] Start: 03-29-2024 Influenza vaccination [facility] Start: 03-27-2024 End: 03-27-2025 ABO/Rh ABO/Rh Lab Routine Missed menses Expected: 03/27/2024 (Approximate), Expires: 03/27/2025 [facility] Comment on above: Expected: 03/27/2024 (Approximate), [...] Missed menses Expected: 03/27/2024 (Approximate), Expires: 03/27/2025 [facility] Comment on above: Expected: 03/27/2024 (Approximate), Expires: 03/27/2025 Start: 2020 Screening for malign ant neoplasm of cervix Pap Smear [facility] Start: 2018 DTaP,Tdap and Td Vac cines (1 - Tdap) DTaP,Tdap and Td Vaccines (1 - Tdap) [facility] Start: 2017 Adult BMI Screening Adult BMI Screen ing [facility] Start: 2011 Depression Screening Depression Scre ening [facility] Start: 2011 Tobacco Screening Tobacco Screening [facility] Start: 1999 Screening for Chlamy leoncio trachomatis Chlamydia Screening [facility] Bacteria identified in Urine by Culture Urine culture Microbiology Routine Missed menses Ordered: 03/27/2024 [facility] Comment on above: Ordered: 03/27/2024 CBC W Auto Different ial panel - Blood CBC and differential Lab Routine Missed menses Ordered: 03/27/2024 [facility] Comment on above: Ordered: 03/27/2024 CHLAMYDIA TRACHOMATI S (GENITO/STI) CHLAMYDIA TRACHOMATIS (GENITO/STI) Lab Routine STD exposure Ordered: 05/25/2024 [facility] Comment on above: Ordered: 05/25/2024 Cytology Cervical or vaginal smear or scraping study Pap Smear Pathology and Cytology Routine Well woman exam with routine gynecological exam Ordered: 05/25/2024 [facility] Work Phone: Comment on above: Ordered: 05/25/2024 Hemoglobin A1c/Hemoglobin.total in Blood Hemoglobin A1c Lab Routine Missed menses Ordered: 03/27/2024 [facility] Comment on above: Ordered: 03/27/2024 Hepatitis B virus love rface Ag [Presence] in Serum or Plasma by Immunoassay Hepatitis B surface antigen Lab Routine Missed menses Ordered: 03/27/2024 [facility] Comment on above: Ordered: 03/27/2024 Hepatitis C virus Ab [Presence] in Serum or Plasma by Immunoassay Hepatitis C antibody Lab Routine Missed menses Ordered: 03/27/2024 [facility] Comment on above: Ordered: 03/27/2024 HIV-1/HIV-2 antigen/antibody combination immunoassay HIV-1 and HIV-2 antibodies Lab Routine Missed menses Ordered: 03/27/2024 [facility] Comment on above: Ordered: 03/27/2024 Neisseria gonorrhoea e DNA [Presence] in Unspecified specimen by BUCK with probe detection Neisseria gonorrhea DNA probe, direct Lab Routine STD exposure Ordered: 05/25/2024 [facility] Comment on above: Ordered: 05/25/2024 Reagin Ab [Presence] in Serum by RPR RPR Lab Routine Missed menses Ordered: 03/27/2024 [facility] Comment on above: Ordered: 03/27/2024 Rubella antibody, IgG Rubella an tibody, IgG Lab Routine Missed menses Ordered: 03/27/2024 [facility] Comment on above: Ordered: 03/27/2024 SURESWAB(R) ADVANCED VAGINITIS PLUS, TMA SURESWAB(R) ADVANCED VAGINITIS PLUS, TMA Pathology and Cytology Routine Vaginal discharge Ordered: 05/25/2024 [facility] Comment on above: Ordered: 05/25/2024 Payers Date Payer Category Payer Commercial Managed C are - PPO [employer] [id number] 2023 [facility] [id number] 2023 Unknown [id number] 2021 Private Health Insurance [id number] 2021 Unknown [id number]. [id number] 2021 Unknown [id number] 1999 Unknown [id number] 2.16.840.1.881363.3.579.2. 593 1999 Unknown [id number] 2.16.840.1.020283.3.579.2. 593 1999 Unknown [id number] 2.16.840.1.962145.3.579.2. 593 1999 Unknown [id number] 2.16.840.1.980684.3.579.2. 593 1999 Unknown [id number] 2.16.840.1.519952.3.579.2. 593 1999 Unknown [id number] 2.16.840.1.482691.3.579.2. 593 1999 Unknown [id number] 2.16.840.1.735553.3.579.2. 593 1999 Unknown [id number] 2.16.840.1.801713.3.579.2. 1286 1999 Unknown [id number] 2.16.840.1.781615.3.579.2. 1286 1999 Unknown [id number] 2.16.840.1.751242.3.579.2. 9 1999 Unknown [id number] 2.16.840.1.310025.3.579.2. 1259 1999 Unknown [id number] 2.16.840.1.849979.3.579.2. 9 1999 Unknown [id number] 2.16.840.1.367387.3.579.2. 1259 1999 Unknown [id number] 2.16.840.1.496018.3.579.2. 9 1999 Unknown [id number] 2.16.840.1.030803.3.579.2. 9 1999 Unknown [id number] 2.16.840.1.909111.3.579.2. 9 1999 Unknown [id number] 2.16.840.1.091711.3.579.2. 9 1999 Unknown [id number] 2.16.840.1.541926.3.579.2. 9 1999 Unknown [id number] 2.16.840.1.283039.3.579.2. 9 1999 Unknown [id number] 2.16.840.1.725418.3.579.2. 9 1959 Private Health Insurance [id number] 1959 Unknown [id number] Social History Date Type Detail [facility] Work Phone: Start: 2000 Sex Assigned At Female F [facility] Start: 01-02-2024 End: 05-27-2024 Tobacco smoking status PRIS Never smoked tobacco [facility] Start: 01-02-2024 End: 05-27-2024 Tobacco use and exposure Smokeless tobacco non-user [facility] Start: 04-27-2024 End: 08-27-2024 Alcoholic beverage intake Ex-drinker (finding) [facility] Start: 01-02-2024 End: 06-15-2024 History of Social function [facility] Start: 01-02-2024 End: 06-15-2024 Tobacco use panel [facility] Start: 01-29-2024 [facility] Start: 11-26-2023 Gender identity Identifies as female gender (finding) [facility] Start: 05-27-2024 End: 06-15-2024 Alcoholic beverage intake Lifetime non-drinker (finding) [facility] Start: 1999 Sex assigned at Not on file P [employer] [facility] Start: 05-26-2024 Sex Female (finding) [facility] Medical Equipment Procedure Code Equipment Code Equipment Origin al Text Equipment Identifier Dates 1 strip by In Vi tro route Daily Use in the morning prior to breakfast, 1 hour after each meal for a total of 4times daily. [id number] Start: 07-20-2024 End: 08-19-2024 1 each by In Vit ro route Daily Use to check FSBS four times daily [id number] Start: 07-20-2024 End: 08-19-2024 Goals Date Patient Goal Desired Activity /State Personal health goal Clinical Notes 03-27-2024 to 09-08-2024 Chika Tracy, DENTAL OFFICE COORDINATOR - 09/08/2024 8:30 AM Gautam Peter, DENTAL OFFICE COORDINATOR - 08/27/2024 11:40 AM Donell Tracy, [facility] - 08/12/2024 11:10 AM Kamille Garcia [place] - 07/20/2024 10:20 AM EST Note Date [...] a total of 4times daily. Continuous Glucose Cyber Systems Administrator (FreeStyle Jenise 3 Ho Ho Kus) device 1 each, Does not apply, Every 14 days Continuous Glucose Sensor (FreeStyle Jenise 3 Sensor) misc 1 each, Does not apply, Every 14 days Multiple Vitamin (multivitamin) tablet 1 tablet, Daily terconazole (Terazol 7) 0.4 % vaginal cream 1 applicator, Vaginal, Nightly ALLERGIES Allergies Allergen Reactions Guadalupe Flavor [Guadalupe Oil] Latex Hives, Itching, Rash and Swelling [...] nursing note reviewed. Exam conducted with a planning and analysis manager present. Vitals: Estimated body mass index [...] Immanuel Hilton DO documented in this encounter [facility] 08-27-2024 History of Present illness Narrative Reason [...] a total of 4times daily. Continuous Glucose Cyber Systems Administrator (FreeStyle Jenise 3 Ho Ho Kus) device 1 each, Does not apply, Every 14 days Continuous Glucose Sensor (FreeStyle Jenise 3 Sensor) misc 1 each, Does not apply, Every 14 days metroNIDAZOLE (FLAGYL) 500 mg, Oral, 2 times daily, Do not drink alcohol while taking this medication Multiple Vitamin (multivitamin) tablet 1 tablet, Daily ALLERGIES Allergies Allergen Reactions Guadalupe Flavor [Guadalupe Oil] Latex Hives, Itching, Rash and Swelling [...] nursing note reviewed. Exam conducted with a planning and analysis manager present. Vitals: Estimated body mass index [...] Immanuel Hilton DO documented in this encounter [facility] 08-12-2024 History of Present illness Narrative Reason [...] 1 tablet, Daily ALLERGIES Allergies Allergen Reactions Guadalupe Flavor [Guadalupe Oil] Latex Hives, Itching, Rash and Swelling [...] nursing note reviewed. Exam conducted with a planning and analysis manager present. Vitals: Estimated body mass index [...] Immanuel Hilton DO documented in this encounter [facility] 07-20-2024 History of Present illness Narrative Reason [...] mg, Oral, Daily ALLERGIES Allergies Allergen Reactions Guadalupe Flavor [Guadalupe Oil] Latex Hives, Itching, Rash and Swelling [...] Immanuel Hilton DO documented in this encounter [facility] 06-22-2024 History of Present illness Narrative Reason [...] mg, Oral, Daily ALLERGIES Allergies Allergen Reactions Guadalupe Flavor [Guadalupe Oil] Latex Hives, Itching, Rash and Swelling [...] Immanuel Hilton DO documented in this encounter [facility] 06-15-2024 History of Present illness Narrative [facility] [...] Allergies: Allergies Allergen Reactions Latex, Natural Rubber Guadalupe Meds: Prior to Admission medications Medication Sig [...] other morbidities. Based on the available evidence, [facility] recommends treatment with antihypertensive therapy for [...] preeclampsia prevention as is recommended by the [place] [employer] Committee Opinion No. 743. [...] Cele Rodriguez MD, FACOG (she/hers) Maternal- [facility] [address] [place] [address] This document was created with [email or web address] technology. Though I make every effort to review the dictation as it is transcribed, on occasion the spoken word can be misinterpreted by the technology leading to inappropriate words, phrases, or sentences. This note is addressed to the requesting provider as a consultation for clinical guidance. Specific medical abbreviations are occasionally used and those are generally approved by the [place]?Board of?Obstetrics and?Gynecology?as well as?Kenzie s abbreviations. The above plan of care was based solely on the diagnoses for which a consultation was requested. ?More frequent testing may be indicated based on her other medical/obstetrical conditions. The management of other or medical conditions is beyond the scope of requested consultation and will continue to be followed by the primary spinner continuous or primary care provider. Note to patient: [...] IVF Have you been seen here at [facility] in a previous ? N/a Recent ER visits or hospitalizations? no Bring blood sugar log or meter with you today? (Please bring them with you for every visit at [facility]) no Flu vaccine (May-September)? no Any concerns that you would like me to mention to the provider today? no documented in this encounter [facility] 05-25-2024 History of Present illness Narrative Reason [...] mg, Oral, Daily ALLERGIES Allergies Allergen Reactions Guadalupe Flavor [Guadalupe Oil] Latex Hives, Itching, Rash and Swelling [...] nursing note reviewed. Exam conducted with a planning and analysis manager present. Vitals: Estimated body mass index [...] Immanuel Hilton DO documented in this encounter [facility] 04-27-2024 History of Present illness Narrative Reason [...] mg, Oral, Daily ALLERGIES Allergies Allergen Reactions Guadalupe Flavor [Guadalupe Oil] Latex Hives, Itching, Rash and Swelling [...] nursing note reviewed. Exam conducted with a planning and analysis manager present. Vitals: Estimated body mass index [...] with IVF . Patient to also have [facility] referral for IVF and Level [...] meat, and stay away from [facility]. Patient has been consulted regarding any further do's and don'ts of . Patient voiced understanding and all questions and concerns were answered. Orders Placed This Encounter Procedures POCT urinalysis dipstick manually resulted Follow Up: Patient is to return in 4 weeks for routine OB appointment. Documented by Esperanza Peter LPN on behalf of: Immanuel Hilton DO documented in this encounter [facility] 03-27-2024 History of Present illness Narrative Reason [...] Procedure Laterality Date TONSILLECTOMY Allergies Allergen Reactions Guadalupe Flavor [Guadalupe Oil] Latex Hives, Itching, Rash and Swelling [...] meat, and stay away from [facility]. Patient has also been advised to [...] Jo-Ann Motta LPN documented in this encounter [facility] Healthcare Evaluation note No assessment inform ation available [facility] Work Phone: Evaluation note Diagnosis Well woman exam with routine gynecological exam Routine gynecological examination Second trimester state, incidental Vaginal discharge Leukorrhea, not specified as infective STD exposure documented in this encounter [facility] Diagnosis 21 weeks gestation of - Primary Chronic hypertension affecting In vitro fertilization Encounter for assisted reproductive fertility procedure cycle [facility] Diagnosis Second trimester state, incidental 22 weeks gestation of Personal history of cardiac murmur Personal history of other diseases of circulatory system documented in this encounter [facility] HealthcareEvaluation note* Diagnosis Missed menses documented in this encounter [facility]* Diagnosis 14 weeks gestation of Second trimester state, incidental Encounter for screening for cervical length documented in this encounter [facility] HealthcareEvaluation note* Diagnosis 26 weeks gestation of Diabetes mellitus screening Screening for diabetes mellitus Second trimester state, incidental PCOS (polycystic ovarian syndrome) Polycystic ovaries resulting from in vitro fertilization, antepartum Gestational diabetes mellitus (GDM), antepartum, gestational diabetes method of control unspecified Elevated glucose tolerance test Impaired glucose tolerance test documented in this encounter [facility]Evaluation note* Diagnosis 29 weeks gestation of Third trimester state, incidental Gestational diabetes mellitus (GDM), antepartum, gestational diabetes method of control unspecified Encounter for in vitro fertilization Encounter for assisted reproductive fertility procedure cycle documented in this encounter [facility] Diagnosis Third trimester state, incidental 32 weeks gestation of documented in this encounter [facility]* Diagnosis Third trimester state, incidental 33 weeks gestation of induced hypertension, antepartum Transient hypertension of , antepartum documented in this encounter [facility] HealthcareInstructionsNot on filedocumented in this encounterProMedica [facility] SystemInstructionsNot on filedocumented in this encounterProMediok Health SystemInstructions* Attachments The following attachments cannot be sent through Care Everywhere. * Preeclampsia ([place]) [facility] Purpose Family History Relationship Condition Age at Onset Recorded Date/T yosi family member Unknown Heart disease Unknown Advance Directives Advance Directive Response Recorded Date/ Time Advance Directives No January 01 9:07am Chief Complaint and Reason for Visit Chief Complaint Congestion Additional Source Comments INFORMATION SOURCE (unrecogn ized section and content) DATE CREATED AUTHOR 03/06/2019 Blackwell Levy [facility] DATE CREATED AUTHOR AUTHOR'S ORGANIZ ATION 12/21/2021 Blackwell Levy [facility] DATE CREATED AUTHOR AUTHOR'S ORGANIZ ATION 12/01/2022 [facility] DATE CREATED AUTHOR AUTHOR'S ORGANIZ ATION 06/17/2024 [facility] DATE CREATED AUTHOR AUTHOR'S ORGANIZ ATION 09/09/2024 [facility] EPIC Care Teams (unrecognized sec tion and content) Team Status: Active Member Role Status Dates Damon Stover DO Primary Care Provider Active Team Status: Inactive Member Role Status Dates Damon Stover DO Primary Care Provider Active Start: January 02, 2024 End: January 02, 2024 Teresa Sanchez APRN Attending Provider Active S tart: January 02, 2024 End: January 02, 2024 Credit Processor Relationship Specialty Start Date End Date Akila Grant MD [address] [place] [id number] PCP - General Family Medicine 11/27/23 Credit Processor Relationship Specialty Start Date End Date Akila Grant MD [address] [place] [address] PCP - General Family Medicine 11/27/23 Credit Processor Relationship Specialty Start Date End Date Akila Grant MD [address] [facility] [place] [address] PCP - General Family Medicine 11/27/23 Credit Processor Relationship Specialty Start Date End Date Akila Grant MD [address] [facility] [place] [address] PCP - General Family Medicine 11/27/23 Credit Processor Relationship Specialty Start Date End Date Akila Grant MD [address] [facility] [place] [address] PCP - General Family Medicine 11/27/23 Credit Processor Relationship Specialty Start Date End Date Akila Grant MD [address] [facility] [place] [address] PCP - General Family Medicine 11/27/23 Credit Processor Relationship Specialty Start Date End Date Akila Grant MD [address] [facility] [place] [address] PCP - General Family Medicine 11/27/23 Credit Processor Relationship Specialty Start Date End Date Akila Grant MD [address] [facility] [place] [address] PCP - General Family Medicine 11/27/23 Credit Processor Relationship Specialty Start Date End Date Akila Grant MD [address] [facility] [place] [address] PCP - General Family Medicine 11/27/23 Credit Processor Relationship Specialty Start Date End Date Akila Grant MD [address] [facility] [place] [address] PCP - General Family Medicine 11/27/23 Credit Processor Relationship Specialty Start Date End Date Akila Grant MD [address] [facility] [place] [address] PCP - General Family Medicine 11/27/23 Credit Processor Relationship Specialty Start Date End Date Akila Grant MD [address] [facility] [place] [address] PCP - General Family Medicine 11/27/23 Credit Processor Relationship Specialty Start Date End Date Akila Grant MD [address] [facility] [place] [address] PCP - General Family Medicine 11/27/23 Credit Processor Relationship Specialty Start Date End Date Akila Grant MD [address] [facility] [place] [address] PCP - General Family Medicine 11/27/23 Credit Processor Relationship Specialty Start Date End Date Akila Grant MD [address] [facility] [place] [address] PCP - General Family Medicine 11/27/23 Credit Processor Relationship Specialty Start Date End Date Akila Grant MD [address] [facility] [place] [address] PCP - General Family Medicine 11/27/23 Goals [...] BE BASED ON THE PRIMARY CLINICAL RECORDS. [facility]. provides no warranty or guarantee of the accuracy or completeness of information in this document.
== END 2024-09-16 09:10 | disposition home or self-care (01) ==
LOC: US 01:09 → FBC 08:05
PROVIDERS: PCP Family Medicine; Visit Provider Obstetrics & Gynecology
DX: Z31.83 Encounter for assisted reproductive fertility procedure cycle (principal); O24.419 Gestational diabetes mellitus in pregnancy, unspecified control; O09.819 Supervision of pregnancy resulting from assisted reproductive technology, unspecified trimester; Z3A.34 34 weeks gestation of pregnancy
CPT/HCPCS: 76816; 76818

== ENCOUNTER 2024-09-19 00:11 | Outpatient (OUT) | payer OTHER, BC, SELFPAY ==
--- OUTSIDE RECORDS SUMMARY | 2024-09-19 00:14 | XMS_ITS | CCD ---
Author Organization [facility] Care Team Providers Care Log Marker Name Role Phone YOBANI ., DR SMITH Admitting Unavailable YOBANI ., DR SMITH Attending Unavailable GRANT, DR AKILA Watson Primary Care Unavailable YOBANI ., DR SMITH Consulting Unavailable YOBANI ., DR SMITH Admitting Unavailable YOBANI ., DR SMITH Attending Unavailable GRANT, DR AKILA Watson Primary Care Unavailable ZLUEIMA, DR CLEMENTINE Mayo Consulting Unavailable YOBANI ., [...] Unavailable Akila Grant MD Primary Care Provider IMMANUEL HILTON R Referring Unavailable CELE RODRIGUEZ Attending Unavailable YOBANIIMMANUEL CLAY R Referring Unavailable YOBANI, IMMANUEL Referring Unavailable YOBANI, IMMANUEL Attending Unavailable YOBANI, IMMANUEL Attending Unavailable YOBANI, IMMANUEL Attending Unavailable JMI, JOHNNY Attending Unavailable IMMANUEL HILTON Attending Unavailable IMMANUEL HILTON Attending Unavailable IMMANUEL HILTON Attending Unavailable IMMANUEL HILTON Attending Unavailable IMMANUEL HILTON Attending Unavailable Unavailable Primary Care Provider Unavailabl e Allergies Allergy Classification Reported Allergen(s) Allergy Type Date of Onset Reaction(s) Facility (2 sources) Latex Drug allergy (disorder) 0 hives [facility] (1 source) orange flavor Drug allergy (disorder) 0 [facility] (5 sources) [place] - fruit; Translations: [ORANGE] 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 4 anaphylaxis [facility] (20 sources) Latex 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 4 Hives, Itching, Rash, Swelling [facility] (20 sources) orange allergenic extract Drug Allergy 4 [facility] Work Phone: (1 source) [...] 2024 12:00am aspirin 81 mg chewable tablet (12 sources) Platelet Aggregation Inhibitor, Nonsteroidal Anti-inflammatory Drug [...] Glucose Monitoring Suppl (D-Care Glucometer) w/Device kit (18 sources) Start: 07-20-2024 End: 07-20-2025 Blood Glucose [...] MCG/0.5ML injection 11/26/2023 03/27/2024 Discontinued Continuous Glucose Abrasive Sawyer (FreeStyle Jenise 3 Bricelyn) device (12 sources) Start: 08-20-2024 Continuous Glucose Abrasive Sawyer (FreeStyle Jenise 3 Bricelyn) device Indications: Gestational diabetes mellitus (GDM), antepartum, gestational diabetes method of control unspecified , Third trimester 1 each every 14 (fourteen) days 1 each 3 08/20/2024 Active Continuous Glucose Sensor (FreeStyle Jenise 3 Sensor) misc (12 sources) Start: 08-20-2024 Continuous Glucose Sensor (FreeStyle Jenise 3 Sensor) misc Indications: Gestational diabetes mellitus (GDM), antepartum, gestational diabetes method of control unspecified , Third trimester 1 each every 14 (fourteen) days 2 each 3 08/20/2024 Active isopropyl alcohol 0.7 ml/ml medicated pad (18 sources) Start: 07-20-2024 Alcohol Swabs (Alcohol Prep [...] (Medrol Dospak) 4 MG tablets Indications: Poison conrteras Day 1: 6 tablets Day 2: 5 [...] sources) Encounter for other procreative management; Translations: [Encounter for assisted reproductive fertility procedure cycle] Onset: 07-26-2022 Episodic Diabetes mellitus without complication [...] ; childbirth and the puerperium (2 sources) Unspecified pre-existing hypertension complicating , unspecified trimester; Translations: [Chronic hypertension complicating AND/OR reason for care during ] Onset: 06-15-2024 06-15-2024 Chronic Hypertension complicating ; [...] syndrome; Translations: [Polycystic ovarian syndrome] Onset: 05-27-2024 07-20-2024 Chronic Other female genital disorders (2 sources) Vaginal discharge; Translations: [Other specified noninflammatory disorders of vagina] 05-25-2024 Episodic Other screening for suspected conditions (not mental disorders or infectious disease) (5 sources) Encounter for other specified screening; Translations: [Patient encounter status] Onset: 06-15-2024 04-27-2024 Episodic Residual codes; unclassified (1 source) 21 weeks gestation of ; Translations: [21 weeks gestation of ] Onset: 06-15-2024 Episodic Residual codes; unclassified (2 sources) Gestation period, 22 weeks; Translations: [22 weeks gestation of ] 06-22-2024 Episodic Residual codes; unclassified (20 sources) Gestation period, 26 weeks; Translations: [26 [...] [21 weeks gestation of ] 06-15-2024 Episodic Results Test Name Value Interpretation Reference Range Facility OB BPP W NON-STRESS on 09-16-2024 [place] [address] Ultrasound Report Signed Patient: AMY MARIO MR#: [id number] : 2000 Acct:[id number] Age/Sex: 24 / F ADM Date: 09/16/24 Loc: [facility] 250-[address]: Immanuel Hilton D.O. Ordering Physician: Immanuel Hilton D.O. Date of Service: 09/16/24 Procedure(s): US OB BPP w non-stress Accession Number(s): [id number] cc: Akila Grant M.D.; Immanuel Hilton D.O. [address] [address] Patient Name: AMY MARIO MRN: [id number] date: 2000 Sex: F Assigned Patient Location: [facility] Current Patient Location: [facility] Accession/Order Number: [id number] Exam Date: 09/16/2024 09:04 Report Date: 09/16/2024 09:06 At the request of: IMMANUEL HILTON DO Procedure: US OB BPP w non-stress BIOPHYSICAL PROFILE: CLINICAL INFORMATION: Gestational diabetes mellitus O24.419 COMPARISON: 09/09/2024 TECHNIQUE: Multiple ultrasonographic scans of the lower abdomen and pelvis were obtained. The fetus is in the cephalic presentation. Gestational age based on today's measurements is 34 weeks 4 days. The heart rate [id number] beats per minute. FINDINGS: TONE: 1 or more episodes of activity extension and flexion of extremity or opening and closing of the hand [Y] 2/2 GROSS BODY MOVEMENTS: 3 or more discrete body or limb movements [Y] 2/2 BREATHING MOVEMENTS: 1 or more episodes of breathing lasting at least 30 seconds [Y] 2/2 CAPRICE: A single deepest vertical pocket of amniotic fluid greater than 2 cm [Y] 2/2 CAPRICE: 15.2 cm . This is in normal range. Total score: 8/8 US/US OB BPP w non-stress IMPRESSION: NORMAL BIOPHYSICAL PROFILE. Impression dictated by: Chika Holden M.D.09/16/2024 9:06 AM Dictation Location: [place] [address] Electronically authenticated by: [id number] Y Date: 09/16/2024 09:06 Dictated By: Chika Holden M.D. Signed By: 09/16/24908 DD/ 5 TD/TT: Clean In Places Operator: [facility] Radiology, Radiologist, MD - 09/16/2024 [place] [address] Ultrasound Report Signed Patient: AMY MARIO MR#: [id number] : 2000 Acct:[id number] Age/Sex: 24 / F ADM Date: 09/16/24 Loc: [facility] 250-[address]: Immanuel Hilton D.O. Ordering Physician: Immanuel Hilton D.O. Date of Service: 09/16/24 Procedure(s): US OB BPP w non-stress Accession Number(s): [id number] cc: Akila Grant M.D.; Immanuel Hilton D.O. [place] [address] Patient Name: AMY MARIO MRN: [facility]:[id number] date: 2000 Sex: F Assigned Patient Location: [facility] Current Patient Location: [facility] Accession/Order Number: [id number] Exam Date: 09/16/2024 09:04 Report Date: 09/16/2024 09:06 At the request of: IMMANUEL HILTON DO Procedure: US OB BPP w non-stress BIOPHYSICAL PROFILE: CLINICAL INFORMATION: Gestational diabetes mellitus O24.419 COMPARISON: 09/09/2024 TECHNIQUE: Multiple ultrasonographic scans of the lower abdomen and pelvis were obtained. The fetus is in the cephalic presentation. Gestational age based on today's measurements is 34 weeks 4 days. The heart rate [id number] beats per minute. FINDINGS: TONE: 1 or more episodes of activity extension and flexion of extremity or opening and closing of the hand [Y] 2/2 GROSS BODY MOVEMENTS: 3 or more discrete body or limb movements [Y] 2/2 BREATHING MOVEMENTS: 1 or more episodes of breathing lasting at least 30 seconds [Y] 2/2 CAPRICE: A single deepest vertical pocket of amniotic fluid greater than 2 cm [Y] 2/2 CAPRICE: 15.2 cm . This is in normal range. Total score: 8/8 US/US OB BPP w non-stress IMPRESSION: NORMAL BIOPHYSICAL PROFILE. Impression dictated by: Chika Holden M.D.09/16/2024 9:06 AM Dictation [facility] Electronically authenticated by: [id number] Y Date: 09/16/2024 09:06 Dictated By: Chika Holden M.D. Signed By: 09/16/24908 DD/ 5 TD/TT: Clean In Places Operator: [facility] Radiology Study observation (narrative) [facility] US OB BPP W NON-STRESS Ordered By: Radiologist Radiology on 09-16-2024 [facility] Work Phone: US OB GROWTHon 09-16-2024 [place] [address] Ultrasound Report Signed Patient: AMY MARIO MR#: [id number] : 2000 Acct:[id number] Age/Sex: 24 / F ADM Date: 09/16/24 Loc: [facility] 250-[address]: Immanuel Hilton D.O. Ordering Physician: Immanuel Hilton D.O. Date of Service: 09/16/24 Procedure(s): US OB growth Accession Number(s): [id number] cc: Akila Grant M.D.; Immanuel Hilton D.O. [address] [address] Patient Name: AMY MARIO MRN: [id number] date: 2000 Sex: F Assigned Patient Location: [facility] Current Patient Location: [facility] Accession/Order Number: [id number] Exam Date: 09/16/2024 09:07 Report Date: 09/16/2024 09:15 At the request of: IMMANUEL HILTON DO Procedure: US OB growth ULTRASOUND OB GROWTH COMPARISON: 08/05/2024 CLINICAL DATA: Gestational diabetes There is a single live intrauterine gestation in cephalic presentation. There is cardiac and somatic activity with heart rate of 138 bpm. The amniotic fluid index measures 15.2 cm which is within normal limits. The following measurements were obtained: Biparietal diameter 8.4 cm 34 weeks 0 days 26% Head circumference 32.1 cm 36 weeks 2 days 51% Abdominal circumference 30.0 cm 33 weeks 6 days 28% Femur length 6.6 cm 34 weeks 1 day 25% The composite ultrasound age based on these measurements is 34 weeks 4 days +/- 2 weeks 3 days. The estimated date of delivery is October 24, 2024. This correlates with dates based on last menstrual period. Estimated weight is 5 lbs. 4 oz. +/- 13 ounces. US/US OB growth IMPRESSION: SINGLE LIVE INTRAUTERINE GESTATION WITH TODAY'S ULTRASOUND AGE OF 34 WEEKS 4 DAYS. Impression dictated by: Chika Holden M.D.09/16/2024 9:15 AM Dictation Location: [place] [address] Electronically authenticated by: [id number] Y Date: 09/16/2024 09:15 Dictated By: Chika Holden M.D. Signed By: 09/16/24917 DD/ 4 TD/TT: Clean In Places Operator: [facility] Radiology, Radiologist, - 09/16/2024 [place] [address] Ultrasound Report Signed Patient: AMY MARIO MR#: [id number] : 2000 Acct:[id number] Age/Sex: 24 / F ADM Date: 09/16/24 Loc: [facility] 250-[address]: Immanuel Hilton D.O. Ordering Physician: Immanuel Hilton D.O. Date of Service: 09/16/24 Procedure(s): US OB growth Accession Number(s): [id number] cc: Akila Grant M.D.; Immanuel Hilton D.O. [address] [address] Patient Name: AMY MARIO MRN: [facility]:[id number] date: 2000 Sex: F Assigned Patient Location: [facility] Current Patient Location: [facility] Accession/Order Number: [id number] Exam Date: 09/16/2024 09:07 Report Date: 09/16/2024 09:15 At the request of: IMMANUEL HILTON DO Procedure: US OB growth ULTRASOUND OB GROWTH COMPARISON: 08/05/2024 CLINICAL DATA: Gestational diabetes There is a single live intrauterine gestation in cephalic presentation. There is cardiac and somatic activity with heart rate of 138 bpm. The amniotic fluid index measures 15.2 cm which is within normal limits. The following measurements were obtained: Biparietal diameter 8.4 cm 34 weeks 0 days 26% Head circumference 32.1 cm 36 weeks 2 days 51% Abdominal circumference 30.0 cm 33 weeks 6 days 28% Femur length 6.6 cm 34 weeks 1 day 25% The composite ultrasound age based on these measurements is 34 weeks 4 days +/- 2 weeks 3 days. The estimated date of delivery is October 24, 2024. This correlates with dates based on last menstrual period. Estimated weight is 5 lbs. 4 oz. +/- 13 ounces. US/US OB growth IMPRESSION: SINGLE LIVE INTRAUTERINE GESTATION WITH TODAY'S ULTRASOUND AGE OF 34 WEEKS 4 DAYS. Impression dictated by: Chika Holden M.D.09/16/2024 9:15 AM Dictation Location: [place] [address] Electronically authenticated by: [id number] Y Date: 09/16/2024 09:15 Dictated By: Chika Holden M.D. Signed By: 09/16/24917 DD/ 4 TD/TT: Clean In Places Operator: [facility] Radiology Study observation (narrative) [facility] OB GROWTHOrdered By: Kaye galarzaogyamini Radiology on 09-16-2024 [facility] Work Phone: TB TOTAL PROTEIN 24 HOUR UR INEon 09-12-2024 Interpretation and review of laboratory results Abnormal [facility] Protein (U) [Mass/Vol] 29.7 mg/dL High NINF - 11.9 mg/dL [facility] TB TOTAL PROTEIN 24 HOUR URINE 148.5 NINF [facility] TOTAL VOLUME 24 HOUR URINE 500 mL/24hr [facility] ALL CBC WITH AUTO DIFFon BASOPHILS ABSOLUTE AUTO 0 [facility] Basophils/100 WBC (Bld) 0.1 % Low 0.2 - 2.0 % [facility] Eosinophils/100 WBC (Bld) 0.7 % Low 0.9 - 7.0 % [facility] Erythrocyte distribution width (RBC) [Ratio] 13.4 % 11.0 - 15.0 % [facility] Hematocrit (Bld) [Volume fraction] 32.2 % Low 36.0 - 48.0 % [facility] Hemoglobin (Bld) [Mass/Vol] 10.6 g/dL Low 12.0 - 16.0 g/dL [facility] IMMATURE GRANULOCYTES ABS AUTO 0.06 High [facility] Immature granulocytes/100 WBC (Bld) 0.9 % High 0.0 - 0.5 % [facility] Interpretation and review of laboratory results Abnormal [facility] LYMPHOCYTES ABSOLUTE AUTO 1.4 [facility] Lymphocytes/100 WBC (Bld) 19.7 % Low 20.5 - 60.0 % [facility] MCH (RBC) [Entitic mass] 28.3 pg 26.7 - 34.0 pg [facility] MCHC (RBC) [Mass/Vol] 32.9 g/dL 29.9 - 35.2 g/dL [facility] MCV (RBC) [Entitic vol] 85.9 fL 81.0 - 99.0 fL [facility] MONOCYTES ABSOLUTE AUTO 0.5 [facility] Monocytes/100 WBC (Bld) 7.4 % 1.7 - 12.0 % [facility] NEUTROPHILS ABSOLUTE AUTO 4.9 [facility] Neutrophils/100 WBC (Bld) 71.2 % 43.0 - 75.0 % [facility] Platelet mean volume (Bld) [Entitic vol] 10.4 fL 9.5 - 13.5 fL [facility] TBH EO # 0.1 [facility] TB PLT [address] [facility] RBC 3.75 Low [facility] TB WBC 6.9 [facility] US OB BPP W NON-STRESS on 09-09-2024 [place] [address] Ultrasound Report Signed Patient: AMY MARIO MR#: [id number] : 2000 Acct:[id number] Age/Sex: 24 / F ADM Date: 09/09/24 Loc: US Attending Dr: Immanuel Hilton D.O. Ordering Physician: Immanuel Hilton D.O. Date of Service: 09/09/24 Procedure(s): US OB BPP w non-stress Accession Number(s): [id number] cc: Akila Grant M.D.; Immanuel Hilton D.O. [place] [address] Patient Name: AMY MARIO MRN: [facility]:[id number] date: 2000 Sex: F Assigned Patient Location: [facility] Current Patient Location: ED.MAIN Accession/Order Number: [id number] Exam Date: 09/09/2024 07:58 Report Date: 09/09/2024 [...] Signed By: 09/09/24 1132 DD/ 1130 TD/TT: Clean In Places Operator: [facility] Radiology, Radiologist, MD - 09/09/2024 [place] [address] Ultrasound Report Signed Patient: AMY MARIO MR#: [id number] : 2000 Acct:[id number] Age/Sex: 24 / F ADM Date: 09/09/24 Loc: US Attending Dr: Immanuel Hilton D.O. Ordering Physician: Immanuel Hilton D.O. Date of Service: 09/09/24 Procedure(s): US OB BPP w non-stress Accession Number(s): [id number] cc: Akila Grant M.D.; Immanuel Hilton D.O. [place] [address] Patient Name: AMY MARIO MRN: [id number] date: 2000 Sex: F Assigned Patient Location: [facility] Current Patient Location: ED.MAIN Accession/Order Number: [id number] Exam Date: 09/09/2024 07:58 Report Date: 09/09/2024 [...] Signed By: 09/09/24 1132 DD/ 1130 TD/TT: Clean In Places Operator: [facility] Radiology Study observation (narrative) [facility] US OB BPP W NON-STRESS Ordered By: Radiologist Radiology on 09-09-2024 [facility] Work Phone: Urinalysis macro (dipstick) panel (U)on 09-08-2024 Bilirubin, UA Trace Negative - 4(70) +++ mg/dL [facility] Blood, UA Positive Negative - 50 Jimy/mcL [facility] Clarity, UA Clear [facility] Color, UA Yellow [facility] Glucose, UA Negative Negative - 2000(110) ++++ mg/dL [facility] Interpretation and review of laboratory results Abnormal [facility] Ketones, UA Negative Negative - 160(16) ++++ mg/dL [facility] Leukocytes, UA Positive Negative - 500+++ Mychal/mcL [facility] Nitrite, UA Negative Negative - Positive [facility] pH, UA 6 5 - 9 [facility] Protein, UA Positive Negative - 1999(20) ++++ mg/dL [facility] Spec Grav, UA 1.025 1 - 1.03 [facility] Urobilinogen, UA 0.2 0.2 - 12 mg/dL [facility] US OB BPP W NON-STRESS on 09-02-2024 [place] [address] Ultrasound Report Signed Patient: AMY MARIO MR#: [id number] : 2000 Acct:[id number] Age/Sex: 24 / F ADM Date: 09/02/24 Loc: US Attending Dr: Immanuel Hilton D.O. Ordering Physician: Immanuel Hilton D.O. Date of Service: 09/02/24 Procedure(s): US OB BPP w non-stress Accession Number(s): [id number] cc: Akila Grant M.D.; Immanuel Hilton D.O. [address] [id number] Patient Name: AMY MARIO MRN: [id number] date: 2000 Sex: F Assigned Patient Location: [facility] Current Patient Location: Accession/Order Number: [id number] Exam Date: 09/02/2024 08:03 Report Date: 09/02/2024 [...] M.D. Signed By: 09/02/24924 DD/ 1 TD/TT: Clean In Places Operator: [facility] Radiology, Radiologist, MD - 09/02/2024 [place] [address] Ultrasound Report Signed Patient: AMY MARIO MR#: [id number] : 2000 Acct:[id number] Age/Sex: 24 / F ADM Date: 09/02/24 Loc: US Attending Dr: Immanuel Hilton D.O. Ordering Physician: Immanuel Hilton D.O. Date of Service: 09/02/24 Procedure(s): US OB BPP w non-stress Accession Number(s): [id number] cc: Akila Grant M.D.; Immanuel Hilton D.O. The [place] [id number] Patient Name: AMY MARIO MRN: [facility]:[id number] date: 2000 Sex: F Assigned Patient Location: [facility] Current Patient Location: Accession/Order Number: [id number] Exam Date: 09/02/2024 08:03 Report Date: 09/02/2024 [...] M.D. Signed By: 09/02/24924 DD/ 1 TD/TT: Clean In Places Operator: [facility] Radiology Study observation (narrative) [facility] US OB BPP W NON-STRESS Ordered By: Radiologist Radiology on 09-02-2024 [facility] Work Phone: US OB FOLLOW UP TRANSABDOMIN [...] 2164 gm / 4 lbs, 12 oz (3022-2837 gm) [place] Normal: 1953 gm (2410-9010 mg) [place] 80% for 32.0 wks ([place] [...] report is generated using voice recognition reporting ([employer]). On occasion [employer] erroneously drops words from the report or [...] Positive Negative - 4(70) +++ mg/dL [facility] Comment on above: small Blood, UA Negative Negative - 50 Jimy/mcL [facility], [facility] Color, UA Yellow [facility] Glucose, UA Positive Negative - 2000(110) ++++ mg/dL [facility] Comment on above: 100 Interpretation and review of laboratory results Abnormal [facility] Ketones, UA Positive Negative - 160(16) ++++ mg/dL [facility] Comment on above: trace Leukocytes, UA Positive Negative - 500+++ Mychal/mcL [facility] Comment on above: large Nitrite, UA Negative Negative - Positive [facility] pH, UA 6.5 5 - 9 [facility] Protein, UA Positive Negative - 2000(20) ++++ mg/dL [facility] Comment on above: 30 Spec Grav, UA 1.03 1 - 1.03 [facility] Urobilinogen, UA 0.2 0.2 - 12 mg/dL [facility] OB BPP W NON-STRESS on 08-26-2024 [place] [address] Ultrasound Report Signed Patient: AMY MARIO MR#: [id number] : 2000 Acct:[id number] Age/Sex: 24 / F ADM Date: 08/26/24 Loc: [facility] 251-[address]: Immanuel Hilton D.O. Ordering Physician: Immanuel Hilton D.O. Date of Service: 08/26/24 Procedure(s): US OB BPP w non-stress Accession Number(s): [id number] cc: Akila Grant M.D.; Immanuel iHlton D.O. The [address] [address] Patient Name: AMY MARIO MRN: [facility]:[id number] date: 2000 Sex: F Assigned Patient Location: [facility] Current Patient Location: [facility] Accession/Order Number: [id number] Exam Date: 08/26/2024 08:00 Report Date: 08/26/2024 [...] Mixon M.D. Signed By: 08/26/2458 DD/ TD/TT: Clean In Places Operator: [facility] Radiology, Radiologist, MD - 08/26/2024 [place] [address] Ultrasound Report Signed Patient: AMY MARIO MR#: [id number] : 2000 Acct:[id number] Age/Sex: 24 / F ADM Date: 08/26/24 Loc: [facility] 251-[address]: Immanuel Hilton D.O. Ordering Physician: mImanuel Hilton D.O. Date of Service: 08/26/24 Procedure(s): US OB BPP w non-stress Accession Number(s): [id number] cc: Akila Grant M.D.; Immanuel Hilton D.O. [place] [id number] Patient Name: AMY MARIO MRN: [id number] date: 2000 Sex: F Assigned Patient Location: [facility] Current Patient Location: [facility] Accession/Order Number: [id number] Exam Date: 08/26/2024 08:00 Report Date: 08/26/2024 [...] M.D. Signed By: 08/26/2458 DD/ 5 TD/TT: Clean In Places Operator: [facility] Radiology Study observation (narrative) [facility] US OB BPP W NON-STRESS Ordered By: Radiologist Radiology on 08-26-2024 [facility] Work Phone: Urinalysis macro (dipstick) panel (U)on 08-12-2024 Bilirubin, UA Negative Negative - 4(70) +++ mg/dL [facility] Blood, UA Negative Negative - 50 Jimy/mcL [facility] Clarity, UA Clear [facility] Color, UA Yellow [facility] Glucose, UA Negative Negative - 2000(110) ++++ mg/dL [facility] Interpretation and review of laboratory results Abnormal [facility] Ketones, UA Positive Negative - 160(16) ++++ mg/dL [facility] Comment on above: trace Leukocytes, UA Positive Negative - 500+++ Mychal/mcL [facility] Comment on above: large Nitrite, UA Negative Negative - Positive [facility] pH, UA 5.5 5 - 9 [facility] Protein, UA Trace Negative - 1999(20) ++++ mg/dL [facility] Spec Grav, UA 1.03 1 - 1.03 [facility] Urobilinogen, UA 0.2 0.2 - 12 mg/dL [facility] ALL CBC WITH AUTO DIFFon BASOPHILS ABSOLUTE AUTO 0 [facility] Basophils/100 WBC (Bld) 0.3 % 0.2 - 2.0 % [facility] Eosinophils/100 WBC (Bld) 1 % 0.9 - 7.0 % [facility] Erythrocyte distribution width (RBC) [Ratio] 13.2 % 11.0 - 15.0 % [facility] Hematocrit (Bld) [Volume fraction] 32.6 % Low 36.0 - 48.0 % [facility] Hemoglobin (Bld) [Mass/Vol] 11.3 g/dL Low 12.0 - 16.0 g/dL [facility] IMMATURE GRANULOCYTES ABS AUTO 0.07 High [facility] Immature granulocytes/100 WBC (Bld) 0.9 % High 0.0 - 0.5 % [facility] Interpretation and review of laboratory results Abnormal [facility] LYMPHOCYTES ABSOLUTE AUTO 1.6 [facility] Lymphocytes/100 WBC (Bld) 19.6 % Low 20.5 - 60.0 % [facility] MCH (RBC) [Entitic mass] 30.4 pg 26.7 - 34.0 pg [facility] MCHC (RBC) [Mass/Vol] 34.7 g/dL 29.9 - 35.2 g/dL [facility] MCV (RBC) [Entitic vol] 87.6 fL 81.0 - 99.0 fL [facility] MONOCYTES ABSOLUTE AUTO 0.6 [facility] Monocytes/100 WBC (Bld) 8 % 1.7 - 12.0 % [facility] NEUTROPHILS ABSOLUTE AUTO 5.6 [facility] Neutrophils/100 WBC (Bld) 70.2 % 43.0 - 75.0 % [facility] Platelet mean volume (Bld) [Entitic vol] 9.7 fL 9.5 - 13.5 fL [facility] TBH EO # 0.1 [facility] PLT 400 [facility] RBC 3.72 Low [facility] TB WBC 8 [facility] Urinalysis macro (dipstick) panel (U)on 06-22-2024 Bilirubin, UA Negative Negative - 4(70) +++ mg/dL [facility] Blood, UA Negative Negative - 50 Jimy/mcL [facility] Clarity, UA Clear [facility] Color, UA Yellow [facility] Glucose, UA Negative Negative - 1999(110) ++++ mg/dL [facility] Interpretation and review of laboratory results Abnormal [facility] Ketones, UA Positive Negative - 160(16) ++++ mg/dL [facility] Comment on above: 15 Leukocytes, UA Positive Negative - 500+++ Mychal/mcL [facility] Comment on above: small Nitrite, UA Negative Negative - Positive [facility] pH, UA 5.5 5 - 9 [facility] Protein, UA Trace Negative - 1999(20) ++++ mg/dL [facility] Spec Grav, UA 1.03 1 - 1.03 [facility] Urobilinogen, UA 0.2 0.2 - 12 mg/dL [facility] IGP,APTIMA HPV,AGE GDLNon AGE GDLN ACOG TESTING Note . [facility] Comment on above: TESTS RESULT FLAG UN ITS REF RANGE LAB Clinician Provided Cytology Information Source.............Cervix Other.............. No. of containers..01 ThinPrep Vial Age Algo ACOG Michelle... FLAG LEGEND: L-Low Normal,H-High Normal,LL-Alert Low,HH-Alert High <-Panic Low,>-Panic High,A-Abnormal,AA-Critical Abnormal Performed at: 01 =G [facility] [address] [place] [address] Mar Rivera MD, IGP, RFX APTIMA HPV ASCU Note . [facility] Comment on above: TESTS RESULT FLAG UN ITS REF RANGE LAB DIAGNOSIS: 02 NEGATIVE FOR INTRAEPITHELIAL LESION OR MALIGNANCY. FUNGAL ORGANISMS MORPHOLOGICALLY CONSISTENT WITH CARLOS SPECIES ARE PRESENT. Specimen adequacy: 02 Satisfactory for evaluation. No endocervical component is identified. An endocervical component is not commonly seen in the patient. Performed by: Judy Vera, Emissions Testing Technician ([facility]) . 02 Note: Note 02 The [...] <-Panic Low,>-Panic High,A-Abnormal,AA-Critical Abnormal Performed at: [address] [address] Mar Rivera MD, Performed at: =G - Lab[address] [id number] Child Care Associate: Mar Rivera MD, Phone: [phone] Performed at: - [address] [id number] Child Care Associate: Mar Rivera MD, Phone: [phone] [facility] AFP, SERUM, OPEN SPINA BIFID Aon 05-30-2024 AFP MOM 1.36 . [facility] AFP VALUE 55.4 ng/mL . [facility] COMMENT: Comment . [facility] Comment on above: Ivet Mobley , Ph.D., [facility] Director References: Available Upon Request. Multiples Of Median Cutoffs For AFP Elevations Del Rosario 2.5 Black 2.8 IDD 2.0 Twins 4.5 Abbreviation Definitions IDD - Insulin Dep Diabetes OSBR - Open Spina Bifida Risk For further inquiries contact [facility] at [phone]. This test was developed and its performance characteristics determined by [employer]. It has not been cleared or approved by the Food and Drug Administration. Performed at: [facility] [address] [place], [place] [id number] Child Care Associate: Kristina Carter [facility], Phone: [phone] GEST. AGE ON COLLECTION DATE 18.6 . weeks [facility] GESTAT. AGE BASED ON LMP . [facility] Comment on above: Recalculations are n ot recommended when gestational dating by LMP and ultrasound are within 10 days. INSULIN DEP DIABETES No . [facility] INTERPRETATION Comment . [facility] Comment on above: Interpretation: Scre en Negative [...] Customer Services to discuss available options. The [employer] recommends amniocentesis be offered to women age 35 and older. MATER[age] AT SARA [age] [facility] MULTIPLE GESTATION No . [facility] OSBR RISK 1 IN 403 . [facility] RACE . [facility] RESULTS Report . [facility] TEST RESULTS: Negative . [facility] WEIGHT 185 . lbs [facility] N N LMP [id number] 4 18 N 1 Y 185 N N N N N White/ [facility] Urinalysis macro (dipstick) panel (U)on 04-27-2024 Bilirubin, UA Positive Negative - 4(70) +++ mg/dL [facility] Comment on above: small Blood, UA Negative Negative - 50 Jimy/mcL [facility] Clarity, UA Clear [facility] Color, UA Yellow [facility] Glucose, UA Negative Negative - 2000(110) ++++ mg/dL [facility] Interpretation and review of laboratory results Abnormal [facility] Ketones, UA Positive Negative - 160(16) ++++ mg/dL [facility] Comment on above: trace Leukocytes, UA Positive Negative - 500+++ Mychal/mcL [facility] Comment on above: small Nitrite, UA Negative Negative - Positive [facility] pH, UA 6.0 5 - 9 [facility] Protein, UA Negative Negative - 2000(20) ++++ mg/dL [facility] Spec Grav, UA 1.030 1 - 1.03 [facility] Urobilinogen, UA 0.2 0.2 - 12 mg/dL [facility] ALL CBC WITH AUTO DIFFon BASOPHILS ABSOLUTE AUTO 0.0 [facility] Basophils/100 WBC (Bld) 0.1 % Low 0.2 - 2.0 % [facility] Eosinophils/100 WBC (Bld) 0.9 % 0.9 - 7.0 % [facility] Erythrocyte distribution width (RBC) [Ratio] 13.0 % 11.0 - 15.0 % [facility] IMMATURE GRANULOCYTES ABS AUTO 0.03 [facility] Immature granulocytes/100 WBC (Bld) 0.3 % 0.0 - 0.5 % [facility] Interpretation and review of laboratory results Abnormal [facility] LYMPHOCYTES ABSOLUTE AUTO 2.3 [facility] Lymphocytes/100 WBC (Bld) 26.6 % 20.5 - 60.0 % [facility] MCH (RBC) [Entitic mass] 30.1 pg 26.7 - 34.0 pg [facility] MCHC (RBC) [Mass/Vol] 34.6 g/dL 29.9 - 35.2 g/dL [facility] MCV (RBC) [Entitic vol] 87.0 fL 81.0 - 99.0 fL [facility] MONOCYTES ABSOLUTE AUTO 0.4 [facility] Monocytes/100 WBC (Bld) 4.1 % 1.7 - 12.0 % [facility] NEUTROPHILS ABSOLUTE AUTO 5.9 [facility] Neutrophils/100 WBC (Bld) 68.0 % 43.0 - 75.0 % [facility] Platelet mean volume (Bld) [Entitic vol] 9.6 fL 9.5 - 13.5 fL [facility] TBH EO # 0.1 [facility] PLT 400 [facility] RBC 4.55 [facility] WBC 8.7 [facility] CBC without diffon Rbc Mcv (Fl) By Automated Count 87 [facility] Laboratory - Hematology and Cell countson 04-08-2024 Hematocrit (Bld) [Volume fraction] 39.6 % [facility] Hemoglobin (Bld) [Mass/Vol] 13.7 g/dL [facility] No Panel Informationon 04-08 [facility] Rubella IGG immune statuson 04-08-2024 Rubella immune IgG 2.32 [facility] Syphilis Total(Unknown Syphi lis Status)on 04-08-2024 Syphilis Non-Reactive [facility] Type and screenon 04-08-2024 Abo/Rh(D) Positive [facility] HCG ( test) Ql (U)o n 03-27-2024 Interpretation and review of laboratory results Abnormal [facility] Preg Test, Ur Positive [facility] Urinalysis macro (dipstick) panel (U)on 03-27-2024 Bilirubin, UA Negative Negative - 4(70) +++ mg/dL [facility] Blood, UA Negative Negative - 50 Jimy/mcL [facility] Clarity, UA Clear [facility] Color, UA Yellow [facility] Glucose, UA Negative Negative - 2000(110) ++++ mg/dL [facility] Interpretation and review of laboratory results Normal [facility] Ketones, UA Negative Negative - 160(16) ++++ mg/dL [facility] Leukocytes, UA Negative Negative - 500+++ Mychal/mcL [facility] Nitrite, UA Negative Negative - Positive [facility] pH, UA 5.5 5 - 9 [facility] Protein, UA Negative Negative - 2000(20) ++++ mg/dL [facility] Spec Grav, UA 1.025 1 - 1.03 [facility] Urobilinogen, UA 0.2 0.2 - 12 mg/dL [facility] PROGESTERONEon 07-27-2022 Progesterone 26.9 ng/mL Normal [facility] Comment on above: Result Comment: Foll icular phase 0.1 - 0.9 Luteal phase 1.8 - 23.9 Ovulation phase 0.1 - 12.0 First trimester 11.0 - 44.3 Second trimester 25.4 - 83.3 Third trimester 58.7 - 214.0 Postmenopausal 0.0 - 0.1 Performed By: #### P ROGES #### [facility] [address] [place] [address] Dr. Ryan Francisco PREG QUANT HCGon 07-12-2022 HCG QUANT <1 Normal [facility] Comment on above: Performed By: #### P REGQNT #### [facility] [address] [place] [address] Dr. Ryan Francisco HCG RANGE SEE BELOW Normal [facility] Comment on above: Result Comment: 5-50 0.2-1 WEEK 50-500 1-2 WEEKS 100-5,000 2-3 WEEKS 500-10,000 3-4 WEEKS 1,000-50,000 4-5 WEEKS 10,000-100,000 5-6 WEEKS 15,000-200,000 6-8 WEEKS 10,000-100,000 2-3 MONTHS Performed By: #### P REGQNT #### [facility] [address] [place] [address] Dr. Ryan Francisco XR HYSTEROSALPINGO EXPon XR [...] by: CLEMENTINE DEWEY Date: 2022-07-12 12:34 Normal [facility] PROGESTERONEon 06-29-2022 Progesterone 4.6 ng/mL Normal [facility] Comment on above: Result Comment: Foll icular phase 0.1 - 0.9 Luteal phase 1.8 - 23.9 Ovulation phase 0.1 - 12.0 First trimester 11.0 - 44.3 Second trimester 25.4 - 83.3 Third trimester 58.7 - 214.0 Postmenopausal 0.0 - 0.1 Performed By: #### P BRETT #### [facility] [address] [place] [address] Dr. Ryan Francisco PROGESTERONEon 06-01-2022 Progesterone 18.9 ng/mL Normal [facility] Comment on above: Result Comment: Foll icular phase 0.1 - 0.9 Luteal phase 1.8 - 23.9 Ovulation phase 0.1 - 12.0 First trimester 11.0 - 44.3 Second trimester 25.4 - 83.3 Third trimester 58.7 - 214.0 Postmenopausal 0.0 - 0.1 Performed By: #### Johnathon WEST #### [facility] [address] [place] [address] Dr. Ryan Francisco US PELVIS AND TRANSVAGon [...] CLEMENTINE DEWEY Date: 2022-05-17 17:25 Normal [facility] PROGESTERONEon 04-29-2022 Progesterone 5.1 ng/mL Normal [facility] Comment on above: Result Comment: Foll icular phase 0.1 - 0.9 Luteal phase 1.8 - 23.9 Ovulation phase 0.1 - 12.0 First trimester 11.0 - 44.3 Second trimester 25.4 - 83.3 Third trimester 58.7 - 214.0 Postmenopausal 0.0 - 0.1 Performed By: #### P BRETT ####[facility] [address] [place], [place] [address]WiDr. Ryan Francisco ANTI-MULLERIAN HORMONEon Anti-Mullerian Hormone (AMH) 6.09 ng/mL Normal [facility] Comment on above: Result Comment: For assays employing antibodies, the possibility exists for interference by heterophile antibodies in the samples.1 1.Steffen Wilson Interferences in Immunoassays - still a threat. Clin. Chem. 2000; 46: 3348-1408. This test was developed and its performance characteristics determined by [employer]. It has not been cleared or approved by the Food and Drug Administration. Reference Range: Females 20 - 25y: 1.23 - 11.51 Median 4.70 AMH concentrations of >= 1.06 ng/mL is correlated with a better response to ovarian stimulation, produced more retrievable oocytes and higher odds of live according to Gleicher et al. Fertility and Sterility. 2010: 94:3257-2056. The current AMH test method correlates with [...] tumor. Performed By: #### A WEI #### [facility] [address] [place], [place] [address] Dr. Ryan Francisco FSHon 04-05-2022 FSH 3.6 mIU/mL Normal [facility] Comment on above: Result Comment: Adul t Female: Follicular phase 3.5 - 12.5 Ovulation phase 4.7 - 21.5 Luteal phase 1.7 - 7.7 Postmenopausal 25.8 - 134.8 Performed By: #### L [facility] #### [facility] [address] [place] [address] [address] Ryan Francisco LUTEINIZING HORMONE (LH)on 0 04-05-2022 LH 6.8 mIU/mL Normal [facility] Comment on above: Result Comment: Adul t Female: Follicular phase 2.4 - 12.6 Ovulation phase 14.0 - 95.6 Luteal phase 1.0 - 11.4 Postmenopausal 7.7 - 58.5 Performed By: #### L [facility] ####[facility] [address] [place], [place] [address]JnDr. Ryan Francisco CBC AUTO DIFFon 04-04-2022 BASO # 0.0 103/ul Normal 0.0-0.1 [facility] Comment on above: Performed By: #### C BC #### [facility] [address] [address] [address] Ryan Francisco Basophils/100 WBC (Bld) 0.3 % Normal 0.2-2.0 [facility] Comment on above: Performed By: #### C BC #### [facility] [address] [address] [address] Ryan Francisco EO # 0.1 103/ul Normal 0.0-0.7 [facility] Comment on above: Performed By: #### C BC #### [facility] [address] [id number] Ryan Francisco Eosinophils/100 WBC (Bld) 1.7 % Normal 0.9-7.0 [facility] Comment on above: Performed By: #### C BC #### [facility] [address] [address] [address] Ryan Francisco Erythrocyte distribution width (RBC) [Ratio] 12.7 % Normal 11.0-15.0 [facility] Comment on above: Performed By: #### C BC #### [facility] [address] [address] [address] Ryan Francisco Hematocrit (Bld) [Volume fraction] 39.7 % Normal 36.0-48.0 [facility] Comment on above: Performed By: #### C BC #### [facility] [address] [place] [address] Dr. Ryan Francisco Hemoglobin (Bld) [Mass/Vol] 13.4 g/dL Normal 12.0-16.0 [facility] Comment on above: Performed By: #### C BC #### [facility] [address] [place] [address] Dr. Ryan Francisco IG # 0.03 10e3/ul Normal 0.00-0.03 [facility] Comment on above: Performed By: #### C BC #### [facility] [address] [place] [address] Dr. Ryan Francisco IG % 0.5 % Normal 0.0-0.5 [facility] Comment on above: Performed By: #### C BC #### [facility] [address] [place] [address] Dr. Ryan Francisco LYMPH # 1.6 103/ul Normal 1.2-3.8 [facility] Comment on above: Performed By: #### C BC #### [facility] [address] [place] [address] Dr. Ryan Francisco Lymphocytes/100 WBC (Bld) 27.1 % Normal 20.5-60.0 [facility] Comment on above: Performed By: #### C BC #### [facility] [address] [place] [address] Dr. Ryan Francisco MANUAL DIFF REQ NO Normal [facility] Comment on above: Performed By: #### C BC #### [facility] [address] [place] [address] Dr. Ryan Francisco MCH (RBC) [Entitic mass] 29.6 pg Normal 26.7-34.0 [facility] Comment on above: Performed By: #### C BC #### [facility] [address] [id number] Ryan Francisco MCHC (RBC) [Mass/Vol] 33.8 g/dL Normal 29.9-35.2 [facility] Comment on above: Performed By: #### C BC #### [facility] [address] [id number] Ryan Francisco MCV (RBC) [Entitic vol] 87.6 fL Normal 81.0-99.0 [facility] Comment on above: Performed By: #### C BC #### [facility] [address] [address] [address] Ryan Francisco MONO # 0.4 103/ul Normal 0.3-0.8 [facility] Comment on above: Performed By: #### C BC #### [facility] [address] [place] [address] Dr. Ryan Francisco Monocytes/100 WBC (Bld) 6.7 % Normal 1.7-12.0 [facility] Comment on above: Performed By: #### C BC #### [facility] [address] [place] [address] Dr. Ryan Francisco NEUT # 3.7 103/ul Normal 1.4-6.5 [facility] Comment on above: Performed By: #### C BC #### [facility] [address] [place] [address] Dr. yRan Francisco Neutrophils/100 WBC (Bld) 63.7 % Normal 43.0-75.0 [facility] Comment on above: Performed By: #### C BC #### [facility] [address] [place], [place] [id number] Dr. Ryan Francisco Platelet mean volume (Bld) [Entitic vol] 9.9 fL Normal 9.5-13.5 [facility] Comment on above: Performed By: #### C BC #### [facility] [address] [place] [address] Dr. Ryan Francisco PLT 421 103/ul Normal 150-450 [facility] Comment on above: Performed By: #### C BC #### [facility] [address] [address] [address] Ryan Francisco RBC 4.53 106/ul Normal 4.20-5.40 [facility] Comment on above: Performed By: #### C BC #### [facility] [address] [place], [place] [address] Dr. Ryan Francisco WBC 5.8 103/ul Normal 4.0-11.0 [facility] Comment on above: Performed By: #### C BC #### [facility] [address] [phone] Ryan Francisco FREE T4on 04-04-2022 Free T4 [Mass/Vol] 0.99 ng/dL Normal 0.76-1.46 [facility] Comment on above: Performed By: #### F T4 #### [facility] [address] [id number] Ryan Francisco TSHon 04-04-2022 TSH 3.086 uIU/mL Normal 0.358-3.740 [facility] Comment on above: Performed By: #### T SH ####[facility] [address] [place], [place] [address]OfDr. Ryan Francisco US PELVIS AND TRANSVAGon US [...] by: LUCHO MIXON Date: 2022-04-04 16:38 Normal [facility] Auth for Release of Medical Recordson 12-20-2021 Auth for Release of Medical Records [id number]# 1.00CD:127 Normal [facility] Coding Summary.on 08-22-2021 Coding Summary. CD:[id number] Gh0bWw+PGhlYWQ+PE1FV QLaX16jcWDbsM9TQ5cHG M4VEYTVITDDNX7YTX2fb FA0WZxjX1IoirRp WsverDTwUT94JOq7GFX6 qIjaEZtvfT2veUYaW9h8 XoLfCQ55tV08JJorUCCm DoX0BnPbuorghDBl C1gwYhXaiBCxZqd+PHRh YmxlIHdpZHRoPScxMDAl UdOeaSkaLV4kTj3nVBIu LWNvbGxhcHNlOiBj t8qkKAEcBDweRH4heCtq X9FbcAU8MIBna4b6Un45 dHI+WAWaGSU7dEalVXrd k273MiDil8agDWJ2 fWVsGHtyPAK0N90ka7A6 LZKhFMZfNXC9rPO4qB1o gYwqawmiQ7BzuUKyBdF8 YKD9oUBjcD8nmXfl bpswuY0zUjo+Y14WNI4I XJUKMD2XXes7K3KmMszf dHI+FP66GCWlKP00gTYo vEWia4uuyXr2JmJo JLUnZFG5bUwzCJsrm2Dv BDJsV06leSSpb9O9OIJd kHwlrBJtAnHbnTM2aY5x NAlglnetd2rnejfc Dyaty4zwtk53yC16X62n EJocPACbBLJ0EDUaTMPq iGcurd4yoP1sDa7+IDxj q0aim1gcvGm0HrFp ZGTtnrAsaFveFNL9q4Ek Gb20D6BvjGxsk9YyFdm2 wu69qBYev2V6cNM7QOpk ZLZajT7vUYymTyD6 KNHaKuUxjD95qRXqUJax Bh0ukQvecZulGB9nYZOl divmFYMejY5bZJUwkKPp oBztBT5tOGNsbhdw q122XfQgBRF7ZZBgtLDn M8ZiwY0zGeJiGRHoGASk B9HsaQDcTOwmE216NUja PkT9HHNjgsFtO1Tl JDGagMslVfF8q9M1Pl9S a9EewcviQPF7WYelYRCx KzN0BfYdUrI7A3SsBfu4 PVAtaXjyVG9eU8Ss HARjjgpmxxlhvGN9AIDf OEEpuH02sWSaQPhtLh1c x4C2i542AVDvKJHfdG90 Wb5ioFoiXMKzfEPE eQ3mzvbik0nfpkqjNlPd HDOiBVj2AWd4OGRgrJdg JeTvOEP0ZaM4JMK4jTTm xV6jdQcxpjjszA0v Oyc+G15wqL4aSHA9JVS5 qucfXIVsxsBrXO69UU67 N5DfPbxpqSPubEF+PGRp dcYkpVjjYV6vAfVq q7mza0BlABpqX8ZwUXQi JJemTrf1EQXjSOJ0iZQ1 yD8uLVLvETnca9G8yWN2 B4AmfxVdmy0at1ub JTIuMNjvT26ugAOxb8D9 JGTmxZZ1IYOqzSlaGsSs xM47Kmm+ZDOpnQimq4Mz Ohsdi0win7bwlHv3 IjMwJSIgdmFsaWduPSJ0 w3VkWq15G12vUKroYBNi GMNcRFEkTZThoGluaf1w pQ6kCk8+PGNvbCB3 bUJ3mU2gABAuHqG8FJga H374LeWilLGiYwwff7ch i1auiKi8JiPgTWPoubNd mRhyVLM2l2VcFb11 T31xFDbtULEcOUYnPKMd TKStmXsekz6qgH2aYc7+ SD2xb7cusb91mO67zDI+ FZXoMCR4fVowSAst ZXOrhQ9oOOkkZwO5AWYf QyTlvQ00iSYtSKxsIb7c eSrciJfsKJ3mNEOrdcua e263GlBac2lhAEXg yEKwXHsdVYO1Y82cz4Q5 UHWnRNDiSAK7qQS4gA0q bGlnbjogbGVmdDsgdmVy vHkbUKeiLDgbA750 IHRvcDsnPlBhdGllbnQg BuDhSBs3B1SaFmo3QLFn zUuoOP0toBSwJIcyRp4z qVtcoAbyJW9xENHo eqdax465AhCxq6tmWUTi lBVuDFyvTOR4K15fd9B9 DBVrRCFmNAD6bKS1wT6d bGlnbjogbGVmdDsg zqIhxHaeRNekPVmmU121 IHRvcDsnPkJpcnRoIERh yOI1MO14TY88cFMur6E2 hYO6R5SbTSRthmiv lwbprAN1DGVsOWCnbE64 Zz6pmLymWo8kEMDkDNJ1 ABZlyHVwL9RrcF0nKsDj PWSiZNEpA5DaqGOr UAzqJ408NOzkOxI8JCJz kdZuU3NrJTCtsSlaGjC7 k5J3Pv2MA5R5GS37YC38 zPOse6H7lSM5Z8Or KRWxznceqlgrvJX1WWBe BPOnrX82Eq3syIxfFz1r QAPzXBR9EUKbgYFhG1Mk jC2fLzQuTIRgHKJr P9WoyYAbJNjuC887MDqp AjB0FFRalfEsO4OhPCSy oGarShB2e6S2Cq6DJEi2 AC76VP73mADvk3K8 gFF3T5ZtRHUysfwtwzof bIC1MYUhCTSjcA11Gm6u iNieMr0aWUNrGYA6QMJv iAHxI4JarH9sRySv KMVeVZQwF1KabWHcKUvq G169OPwhGeC9HFMlxkPp Y0BsAWIktXmwUmO0c6Z1 Ho8WOSRhIG22EFR3 pZJ7NG89IL29Q1CxDhza dGFibGU+PHRhYmxlIHdp ZHRoPScxMDAlJyBzdHls SN4lVz4vVQMnGNGu sZxiuZBtAoTzd2nvBTFf JGtwUW0duDcsX8ZhfXE2 MGGzd2q2Xq20K80wS9Cy dXA+FUJfiUV3xUZ8 mT0xQcPdOuT1LYrsR848 AdXifBXgGqmde3lxp9ch gHm7EeQ0IPOhejWksFks UXH2a6MoDx75L51o IHdpZHRoPSIxNSUiIHZh hYlzda6gyZ0oBn5+PGNv tZH1mCH5xC4tKuEuIiN3 CCsbU273WaVbiIGe Wpgps6bmn2avdUo4PwUs BABqpaAonWufGAD5s1Tm Im19H7SakNith5SbQty4 js73tDYcg7Z1bDU0 B4TnNGGwkpnexMUrbIxu DM4rXVOofnwhCUXuwE5c BSNnY7m4MtBaPsF7RQss Q9BojpM9OVUoiWUz VBvuMUD8H64gy6I8NUVf EAMaQLJ7yEN3eG8idHjt bjogbGVmdDsgdmVydGlj UFzvUXpgF211UNQj lDbdDRSfkU6cZZKyvLUp bKbkZB8hBOFalpocRaxK HUFfBBgLYMYLOK85YS94 tZYrl4Y7dWW3M8Vn CJHtdgjkiybqmZA3HRYl DZPlgF58eGZaIWguPn5f m5I7j558IVGhTDPghZ69 Qi6yoHwtTVBbzFEV kE4jbwrob6dyozewKiUa LGYbOMe0SVm1VMOxbDif ErUgAAQ3SwL8NXL1aKBl mF6ffCparhjbmD7i Oyc+ZRPwTuqgNCm9GKms dGQ+KOUiAJH6pYilWCdq KSQukW7pAXWhO2o2SnAi TxJ2YTwjI2MbCRBt eaqvDx32sD1oRsEqYyG3 ONxlU7ZhteD6EMTihKPe IZqjNWN5H49ow1D4FVQj QEUyFXL7iYM6uZ3r bGlnbjogbGVmdDsgdmVy sDiuFMjqZPzbD451HTEa jYalZiHfVLghIKEqQG11 JD76iAKir8J5dVU9 I4LwNJAtbgqegfrvbNM4 VFLaDAWktD99jXFkQNcu Xt3eu4K8y837DZMiSVLg eI45Xf6jeBseZQQi iZMFvG3vggisx0mrdpqv VbGnHGOqVZs4CGr3ZXRw vQeuXsIkPVF4MlJ5JFT9 dPVmmS3yhHwucpgz fX9rWdd+ZaQmONoqDA40 WM64wIXnb0I1pGH9Y2Md SKEfoesdvxgjnVL9UJQt GWIkbU68nQUoZXxb Tk1ud5Q7d304BAUiGXEo dV36Rd4idVmtDNFwqCHT iI6xuyttc8ckayfoWqHc KJEhCLp6IOz4WTUo eXrkPyUlGCA4TxH6MKP8 lHBtoQ1riZvscuxtqN0w Oyc+P0Q6aKZ9hCFdwEou dGQ+FC01gx13A2Kq RmjaYji6XJJlFRT0qVL7 hU1iKFPxLWzmd2E1ePW0 X0KjkfGhik8re6kwWJJj RGuvA78zaYZga8N6 IKHmiIO8LUIbjXyrNsAs tA51Qhm+FRVehYhsn4Cj Yrcds2ryt9fdtBf9FmZo JSIgdmFsaWduPSJ0 o5LsQp68Q90eFFccDPYd BCBwIXAlSIPrxWqhhm5c sV0sVm5+NBKwdVN9mSR1 cW5wTvMzBsC7GIwj B774ReWtgXXdTwgia8ow u0ztkPo3GvYiZKRuqtUp mInuOJG7i3UcQr59G9Wg pWedz0MeHns0vr70 xJTqp1W9sRU5U2YrWXTf jemymFPqqNbaXZ8oGUEo vsrsMOFlzB1xKQGoJ0e2 YmQiFoL1HRofH9Fy ehG6VMAqfZOlFKHwxEQR bQ7hittnw2xyzmdwXrFf EKFvMTj5PTb8ZYEkpZbs VoRtOZH8GdK5RGI9 nJIuuU0aeJrdlwaogU6e Oyc+SLq6u2xrePTzIU4l dCE3DW58PH75kMJxy4L8 mOO0W5DmWHBeojig iismrXS7VRTrSVPbmB44 Tk0dcNdzTl2sRESwYTL5 BRChyNHbQ9UclH9yThMw VWIhAOAqU2VaoYRa JDdaM513THfxLpC2ICLi yyDyC0JsEPEcdSgwKbT9 v7K2Vr7ANZ04ML74OB29 qNJie0R5mSK8F8Fu DPNfnuvdedjupRC6TVTj QYPbzG19Zk9ylNgxWn5a PGHvALZ0TTOidNOcJ1Yf qN0aGePjHLByIATu N1WcyOIvOMgsN978GQhl YxI0RWRwkzJeX0QtDJRp iHdcRuE8b8T8Mr9IZf51 LS00BI20iBHrd7I6 mMA2U0NbRONnktacoqml wTA4BJCuZMZxpC24Kc5i sNjnHv4wTSKsSYA4ZJIn wTWhI5MrbY4kVnIy RDJhDRZpK4DeuMJoUQka V312GErtBkA7XYDezpUp Q2PqAPBakYmuAdI2r1L8 Qj2ZGHyrvmu8X2Ke PjwvdHI+PG32LLZgZO78 nDOweLOkk8oqsEx0WuDy GIIyXTU0oTgkWSohs6Fx BXEnW02mpGMmj5L0 IGNv (more content not included)... Normal [facility] Coding Summary. CD:[id number] Gh0bWw+PGhlYWQ+PE1FV CWjG50pmYRjrA5EU2wHK L7GODUMOCVAOA2VNR5bw KJ1UJmbP6HtsfOb FvtvgKNvNX83OWv5RRH7 xRtzBLdzeE5mvUSaQ2c2 LoFbRE35pF08AAaoHTFr GtZ2AvNznymoeVOz J6vsTmVnkODsNkf+PHRh YmxlIHdpZHRoPScxMDAl TjYkkQrcYZ8iFg5eEGRh LWNvbGxhcHNlOiBj v1zaBDHyQOwaMC1qiIxc X8UluTG2WTWir2e2Jf49 dHI+LLNeUXE0uAikORsi i655ZkZyk7bnARL1 qBCxBMlvZXZ1M10kb3K8 WBImPJQlEJS5lRR1xA0h nBqxhcibE4XznLEzZvW1 ZGW3tARkoG3gmCys aoclwZ6aOxn+N78RLN0J RUNTCB1VQev3Z3HhBprv dHI+GE61UYMcAR55fJVc cGUcp2jmlOa1OeNi CBTxFKW3mExyJVfrq2Rf IBIgS11zvQAyo5Y4YVTc pLklgGDqByRqpED2iU1v TTyzqhtfb7iqokaj [id number] LAagHADbVLU6NTYaIZYv oJacos9blP2iYm7+IDxj n4yvj5ztlOc4ObMp HLFgvxNrmUorHSI2r9Wr Fh27Y6KrmVjpk9OvVbi1 wb81yUUoy6I7lFM0GGjc BMRtuB9lRBjtRcS9 SBGzQvOitH09iLWwSCwp Sr1faXdnpBmmKP6oHNOk hhzwEBLeqE4mCUOfvSFz bIzxXY7dSAGpdbxi u848UdXdSEH9ULYbqYGq N7TliO0mVbYiKGSjOSOo Z5DzuYWuFZnlC722UMoh KsJ2PCRrkiKgF6Dd RDCyeHkiHfG1i9R9Gf6T z9CshjfyFRX1BNtuLUCx BdM1ErBfUtM3E6EmFij7 UFIqpUlbKE0qQ0Nk UZQoqsaqhlmsoSI7GBJm CYSjbX31yVWuUBiqKy0t w2W2q518QYRgSLJreC46 Ha2jbUmkTSBkeNSB xS8njfnde1pzkptvXuGu GMRfONb5MUl1WTUfcYja WdFoTFT4KwY9SJC7dIMg zF9rtKoduvajkB4y Oyc+Z24stA2bSQF4ZGS1 yiqyYOBhedCiVS06VF62 X1XgLnhsdYBobZB+PGRp omHszLbfQW0cVgJx s2opr2IxRFggS3VbUTKv DRqcSge7MVOpQUO2aVY1 qS8xGFIySEdec2F0gXZ5 R3LsiuDbxd1ll0ac UEEqEUhzZ06neAVig6D2 LHWdeVQ0NRXwzJyrTmRu hG62Exq+JZXtxFlom0Cb Omwtu6nej5rkqOh1 IjMwJSIgdmFsaWduPSJ0 s3UcDy36Y30pIYbqUPXf JDBpZZGsTWQdfMdwhz6p gN0jKm4+PGNvbCB3 gIK8oY5tGDPgQpH2XCjq N558DzBnaDUsRcbpe4iv v4pleBs6VbTrMKEieuUw jZlqGRW4s7WeXx26 F69sHBmjZAGuMYSzJZYd HWLdoWonnu6faI0hOg5+ JW3gg0ggao81eD96tFC+ SOJtALD9kCbsWUhw IRRmaK6rGDcvQoG9JIDq JmSinN51wLJtMTfjSj0u rXafnUsqLM9jFCMetfqf w539JkBko9wuUHWd cHIdNZmaYDH9O61ly4O9 OKHiZXTqAHV5eZK1lW1g bGlnbjogbGVmdDsgdmVy ySxwQIxaEFojB178 IHRvcDsnPlBhdGllbnQg McChABs1A5GdDbn2NWNz wIzuRA3ssRTqRTbzWt5b jKucnRnjRV8fNOJx uhmdz823VfWsv9puQQZl lBOhXRnaXUR5B56ff4E0 CNArUAFeDGU4pJV0vC8m bGlnbjogbGVmdDsg foLkoLzgJMrgXViwL919 IHRvcDsnPkJpcnRoIERh jVX3WK35OH42mERxq1T3 eOD4O3ZnQUMjdaeg xuyfgPX1UVJqZYIziZ95 Zg2qeKhwEd3rFYUiMGB9 RDYzkJFaH1HoyF6hCwGg NMGdKRDcU5TjvEOk BPvoF142BNzqPbJ1ANVp llBsV9LvEDQxjLnxLsC2 z3K2Lp7AK1N7WW70GL71 nDKkv2D0sWM5F9Zy LDNxpkftqznnvXN3SQTt RCOwoJ46Gh5oqSvoWt4k GDFtVKU0ALJqxMDeD1Zl zP0dCnCrAGRdBPSn S1DjpNJlSCanC330ZPsz IzB6KPTbgoBoK8RdEOHs mDhqCvI8f9B0To6VYOm4 YS63PG90kQDed0F7 kIQ4J7RkQKCxzftlduwn gJB7ATFpBTWbmL16Kf2x wXszWg4eJPPuKUL5PGPl oLBgQ9HueI0lAfJc WNYaEJPeW2UpdJAcCPiq Y544XZnhWqW2YLJrxyQy Q9AsTQUhnFlsSbQ7l6T5 Nt2EFIUjUY71JOI8 gHT5UX63BE93S2XwYeop dGFibGU+PHRhYmxlIHdp ZHRoPScxMDAlJyBzdHls QZ9tOi6cXOZiUBDp nGratQEfWcPoa2tcLKYa OSsdAK2lmAnlN4GbzLK6 CFPze7b6Zg62S97qR1Gk dXA+WLSwaTE2qFQ7 uM5zPhTbTvV2ALvyI891 CjFolUZwVjcez2npp7qb aRm8GjU7XVZfivFliVdf HCH4c3VwYi27W21y IHdpZHRoPSIxNSUiIHZh iVevee6ofT1oLe7+PGNv pTG8eBU9zP9kDnRrVzZ9 OVvjH761AsZahWCs Mslhb4sgt3iqqPl5JkRx YPCmonRmvIakZUH5c5Iw Eh38A2JrdZrfa6YzSww5 kq21tABpv9K5mAI9 H6WlGVMbceoxgEDmhCyd OO1pHMHdnjeeGQKhnO1i ZPRzQ6n6YlPfZkW3GAsv F9OahrU3RROllADu VMxcYMY1E50kp6P4ZRZu DYFhRYX2mJW9iO3ozJgj bjogbGVmdDsgdmVydGlj CVcxQCezW234RAAh yAvhEULmbJ1oOEBbnCYt bUljHF0hOOEqtdzhFwbG WPMpYWoWDCJRWO62OP39 wSPxi6M9uJD7B9Uc XGNposvbdvoufJV5BPBw JDSrsW58nDHzTUogZx6x l6I8b978YALsELHzqH95 Gb2ycNieVGReiYIH sL0iewayi0tbvcodRfUa SYKzRLy9SOh2MXIerYoq WaObAIH2YmG6OMF5sGCm mI7unQmvpwpquT3u Oyc+FGEpXgqeTMt0DNuy dGQ+LGQgSZY2eZntEFeu PUGsuG1hJZYnG4w0GsKl SgY2OPldX0WxFYBb icehIz24xV5dBnRcPrF4 TKsbP3EyabQ2XMSqdXQp GCgcVKK7Q90pb2T7HZJt TJQhQNM7pBU0uA2o bGlnbjogbGVmdDsgdmVy mArzKSlwXPghH059ZWOi mLsaFkFmCRpcXFRuFS88 JW34gIOcm3E1hUL3 C6LnDLSsdzirbfahvQN4 CTTtFRZscU80yYLkGUlo Qu5ow4V5r618SRGwUDVr kX45Ev7zoKxyAEMf gONJqM1rwwcpx9sxvaju LpPxKMRvCQy4WBb5ESSg uUusOpPaBGB2SoH0YAG2 dZGhkN2scEytjftq bP6nTsd+DoEuALjrDX39 KM93kGVio9U1pVM9I0Xz ZLFmdaeeqqszmPA6SILt TZLivH24sBEdSZlr Wy7pf5Q8m650QCZzCAOp aI32Vg0gfDalMRQstISW pD2kddisg4bzhuctLfNa WAOnCLt3KIh1VZVw jHmoMcNcJCA0AvN1XDR8 qOGifW0tuWlggnntoZ6p Oyc+GXLyQASbc2Trg7Rn XO05LO10R3PtUvzo dGFibGU+PHRhYmxlIHdp ZHRoPScxMDAlJyBzdHls TO3kYs6dAJUdCKXixSth tXEoGoMpu6qmVNNk MIwrAZ3pwChlQ7IjkDO5 GECtl1h8Pe86T64kU9Lr dXA+DEIsjLI9kOF8jO3k TyDvJkF0TUxqE633 ZhHurZJiXzeye4zfq2pj eTo4BgZdZMNpygGulEhz RIV3g6WkQi58U17iHJmk ZHRoPSIyMCUiIHZh aDyhit8wgZ6wLi2+PGNv dHH8xNX0wM4yKsEaRuJ2 VWrxE682PgRkuZKfNdci P25lZ1RhlRK+PHRy Pon1BIMpuWnaMK9edJTu YTmxOk8bJWH8RsOxQyLc MFkmG5PbXIAxxuyncape wIK2ADPxMUWklD63 Fx4auPnjWt6rITXxUDL7 CJKvkFWlF4QgyX3uVuXw SOIfHLBxQ8JecSTiGOui X253FYhdMxG9AMXw tlPvA7JdTWImaSonYpM7 f1G5Cf8ZsXbsbKAhTC8h UgKkOWc5E8DhQec5AZPr qYemTI0puGReCZad Rn4pgPvqsYvxVD6xKLTu zoibn977FzYas0iqHPSi oVBcMMqeIYN2D29yw2G2 HIGdTRGjDFW5qCS6 oF8mvPkzblcldQEdhUcx xuPsoPwwZJswWPirW681 KNCqwZyuQcWNSfb5X8Tj Ihj3BNYhgNbsZO2p uNRmPSgtYh6jpCmdtTxi CU5uGDVuydpza186ObLl a4xxDXGurUWfKJlfXWO5 S90qw9Y4VQXrQCOh WDF8mUY1sZ1ipXaymtma bGVmdDsgdmVydGljYWwt ZAajI824EWXlrWjmOk8K Puw9V0LpBgv0KHTv sWhhPV8uoDEsPLnbVn5j zTzbiYgxDG3xFTWcmujq d232XjTox8psWRWxaQIl KOzjUDP4I69dq3Z2 HIUbIXGgGDX9wTM5yE1x bGlnbjogbGVmdDsgdmVy zAxwFJiySBuzG519VCRy cDsnPlBheWVyOjwv dGQ+TK13bk05Z4EzQxnz Jlu9MIRvZVZ1hZT5bO6o WSRkNYjkw6M9bRW1D7Iq jtZcie8gd7vuECSp [employer] (more content not included)... Normal [facility] PAP [id number] 08-15-2021 Cytology report Cyto stain Doc (Cvx/Vag) Note Invalid Interpretation Code [facility] Comment on above: Result Comment: TEST S RESULT FLAG UNITS REF RANGE LAB Clinician Provided Cytology Information Source.............[employer] No. of containers..01 ThinPrep Vial DIAGNOSIS: 01 NEGATIVE FOR INTRAEPITHELIAL LESION OR MALIGNANCY. Specimen adequacy: 01 Satisfactory for evaluation. No endocervical component is identified. Performed by: Byron Engle Emissions Testing Technician (ASCP) . 01 Note: Note 01 The [...] <-Panic Low,>-Panic High,A-Abnormal,AA-Critical Abnormal Performed at: [address] [place] [address] Mar Rivera MD, Performed By: #### 1 [id number] #### [facility] [address] [place] [address] HPV 16+18+31+33+35+39+45 +51+52+56+58+59+66+6 8 DNA Probe+sig amp Ql (Cvx) Negative Invalid Interpretation Code Negative [facility] Comment on above: Result Comment: This nucleic acid amplification test detects fourteen high-risk HPV types (16,18,31,33,35,39,45,51,52,56,58,59,66,68) without differentiation. Performed at: [facility] [id number] MD Nicole Manuel Performed at: =G [address] [id number] MD Nicole Manuel Performed By: #### 1 [id number] #### [facility] [address] [place] [address] Insulin Lvlon 08-11-2021 Insulin Qn 24.3 u[IU]/mL Invalid Interpretation Code 2.6-24.9 [facility] Comment on above: Result Comment: Perf ormed at: [facility] [address] [id number] PhD Archie Jha Performed By: #### 1 [id number] #### [facility] [address] [place] [address] Consent for Treatmenton 07-29 Consent for Treatment [id number] #1.00CD:127 Normal [facility] Glu Fastingon 08-10-2021 Glucose [Mass/Vol] 95 mg/dL Normal 55-99 [facility] Comment on above: Performed By: #### 1 [id number] #### [facility] [address] [place] [address] Physician Orderon 08-10-2021 Physician Order [id number] 2#1.00CD:127 Normal [facility] PAP [id number] 08-09-2021 Collection Technique BRUSH-SPATULA Normal [facility] Comment on above: Performed By: #### 1 [id number] #### [facility] [address] [place] [address] Gynecological Body Site ENDOCERVIX Normal [facility] Comment on above: Performed By: #### 1 [id number] #### [facility] [address] [place] [address] Physician Orderon 08-09-2021 Physician Order [id number] #1.00CD:127 Normal [facility] Gynecology Office/Clinic Not pratik 02-17-2019 Gynecology [...] Family history is negative Normal [facility] Comment on above: Result Comment: Elec [...] Family history is negative Normal [facility] Comment on above: Result Comment: Elec tronically Signed By: Shamika ISAACS, Kaley Wilson\.david\Date and Time Signed: 02/17/19 12:09 EDT Vital Signs Date Time Vital Sign Value Performing Clinician Facility 09-08-2024 08:28-0500 Body mass index (BMI) [Ratio] 35.56 kg/m2 [employer] Work Phone: [facility] [employer] 09-08-2024 08:28-0500 Body weight 88.18 kg [employer] Work Phone: [facility] 09-08-2024 08:28-0500 Diastolic blood pressure 90 mm[Hg] [employer] Work Phone: [facility] 09-08-2024 08:28-0500 Systolic blood pressure 132 mm[Hg] Immanuel Yobani DO Work Phone: [facility] 08-27-2024 11:45-0500 Body mass index (BMI) [Ratio] 35.08 kg/m2 Immanuel Yobani DO Work Phone: [facility] 08-27-2024 11:45-0500 Body weight 87 kg Immanuel Yobani DO Work Phone: [facility] 08-27-2024 11:45-0500 Diastolic blood pressure 82 mm[Hg] Immanuel Yobani DO Work Phone: [facility] 08-27-2024 11:45-0500 Systolic blood pressure 122 mm[Hg] Immanuel Yobani DO Work Phone: [facility] 08-12-2024 11:08-0500 Body mass index (BMI) [Ratio] 34.93 kg/m2 Immanuel Yobani DO Work Phone: [facility] 08-12-2024 11:08-0500 Body weight 86.64 kg Immanuel Yobani DO Work Phone: [facility] 08-12-2024 11:08-0500 Diastolic blood pressure 80 mm[Hg] Immanuel Yobani DO Work Phone: [facility] 08-12-2024 11:08-0500 Systolic blood pressure 120 mm[Hg] Immanuel Yobani DO Work Phone: [facility] 07-20-2024 11:00-0500 Body mass index (BMI) [Ratio] 34.39 kg/m2 Immanuel Yobani DO Work Phone: [facility] 07-20-2024 11:00-0500 Body weight 85.28 kg Immanuel Yobani DO Work Phone: [facility] 07-20-2024 11:00-0500 Diastolic blood pressure 76 mm[Hg] Immanuel Yobani DO Work Phone: [facility] 07-20-2024 11:00-0500 Systolic blood pressure 122 mm[Hg] Immanuel Yobani DO Work Phone: [facility] 06-22-2024 14:31-0500 Body mass index (BMI) [Ratio] 34.2 kg/m2 Immanuel Yobani DO Work Phone: [facility] 06-22-2024 14:31-0500 Body weight 84.82 kg Immanuel Yobani DO Work Phone: [facility] 06-22-2024 14:31-0500 Diastolic blood pressure 78 mm[Hg] Immanuel Yobani DO Work Phone: [facility] 06-22-2024 14:31-0500 Systolic blood pressure 124 mm[Hg] Immanuel Yobani DO Work Phone: [facility] 06-15-2024 10:27-0500 Body weight 84.82 kg Cele Rodriguez MD Work Phone: [facility] 06-15-2024 10:27-0500 Diastolic blood pressure 88 mm[Hg] Cele Rodriguez MD Work Phone: [facility] 06-15-2024 10:27-0500 Heart rate 99 /min Cele Rodriguez MD Work Phone: [facility] 06-15-2024 10:27-0500 Respiratory rate 18 /min Cele Rodriguez MD Work Phone: [facility] 06-15-2024 10:27-0500 Systolic blood pressure 137 mm[Hg] Cele Rodriguez MD Work Phone: [facility] 05-25-2024 11:46-0400 Body mass index (BMI) [Ratio] 33.84 kg/m2 Immanuel Yobani DO Work Phone: [facility] 05-25-2024 11:46-0400 Body weight 83.92 kg Immanuel Yobani DO Work Phone: [facility] 05-25-2024 11:46-0400 Diastolic blood pressure 74 mm[Hg] Immanuel Yobani DO Work Phone: [facility] 05-25-2024 11:46-0400 Systolic blood pressure 118 mm[Hg] Immanuel Yobani DO Work Phone: [facility] 04-27-2024 10:35-0400 Body mass index (BMI) [Ratio] 33.75 kg/m2 Immanuel Yobani DO Work Phone: [facility] 04-27-2024 10:35-0400 Body weight 83.69 kg Immanuel Yobani DO Work Phone: [facility] 04-27-2024 10:35-0400 Diastolic blood pressure 76 mm[Hg] Immanuel Yobani DO Work Phone: [facility] 04-27-2024 10:35-0400 Systolic blood pressure 122 mm[Hg] Immanuel Yobani DO Work Phone: [facility] 03-27-2024 10:27-0400 Body mass index (BMI) [Ratio] 34.53 kg/m2 [facility] Nurse [facility] 03-27-2024 10:27-0400 Body weight 85.64 kg [facility] Nurse [facility] 03-27-2024 10:27-0400 Diastolic blood pressure 70 mm[Hg] [facility] Nurse [facility] 03-27-2024 10:27-0400 Systolic blood pressure 120 mm[Hg] [facility] Nurse [facility] 01-02-2024 09:15-0400 Body height 157.48 cm [facility] 01-02-2024 09:15-0400 Body mass index (BMI) [Ratio] 33.9 kg/m2 [facility] 01-02-2024 09:15-0400 Body temperature 100.2 [degF] [facility] 01-02-2024 09:15-0400 Body weight 84.08 kg [facility] 01-02-2024 09:15-0400 Heart rate 115 /min [facility] 01-02-2024 09:15-0400 Respiratory rate 18 /min [facility] 01-02-2024 09:15-0400 SaO2% (BldA) [Mass fraction] 99 % [facility] Encounters Encounter Date Encounter Type Care Provider Facility Start: 09-16-2024 End: 09-16-2024 Clinisync Result Encounter Immanuel Yobani DO Work Phone: [facility] Unsolicited Start: 09-16-2024 End: 09-16-2024 Clinisync Result Encounter Immanuel Yobani DO Work [...] Start: 09-02-2024 End: 09-02-2024 Clinisync Result Encounter Immaneul Yobani DO Work Phone: [facility] [...] Result Encounter Immanuel Yobani DO Work Phone: [facility] External Department Unsolicited Start: 07-20-2024 End: 07-20-2024 Bamboo flowsheet Immanuel Yobani DO Work Phone: [facility] Start: 07-20-2024 End: 07-20-2024 Bamboo flowsheet Immanuel Yobani DO Work Phone: [facility] Start: 07-20-2024 End: 07-20-2024 flow sheet Immanuel Yobani DO Work Phone: [facility] Comment on above: 26 weeks gestation o f ; Diabetes mellitus screening; Second trimester ; PCOS (polycystic ovarian syndrome); resulting from in vitro fertilization, antepartum; Gestational diabetes mellitus (GDM), antepartum, gestational diabetes method of control unspecified; Elevated glucose tolerance test Start: 07-20-2024 End: 07-20-2024 ambulatory IMMANUEL YOBANI Not Available Start: 06-22-2024 End: 06-22-2024 Bamboo flowsheet Immanuel Yobani DO Work Phone: [facility] Start: 06-22-2024 End: 06-22-2024 Bamboo flowsheet Immanuel Yobani DO Work Phone: [facility] Start: 06-22-2024 End: 06-22-2024 flow sheet Immanuel Yobani DO Work Phone: [facility] Comment on above: Second trimester pre gnancy; 22 weeks gestation of ; Personal history of cardiac murmur Start: 06-22-2024 End: 06-22-2024 ambulatory IMMANUEL YOBANI Not Available Start: 06-15-2024 End: 06-15-2024 Office consultation new/estab patient 60 min Cele Rodriguez MD Work Phone: [facility] Comment on above: 21 weeks gestation o f (Primary Dx); Chronic hypertension affecting ; In vitro fertilization Start: 06-15-2024 End: 06-15-2024 ambulatory CELE RODRIGUEZ [facility] Start: 05-28-2024 End: 05-30-2024 Clinisync Result Encounter Immanuel Yobani DO Work Phone: [facility] Unsolicited Start: 05-28-2024 End: 05-30-2024 Clinisync Result Encounter Immanuel Yobani DO Work Phone: [facility] Unsolicited Start: 05-27-2024 End: 05-27-2024 Chart abstracting Cele Rodriguez MD Work Phone: [facility] Start: 05-25-2024 End: 05-25-2024 Bamboo flowsheet [...] exposure Start: 05-25-2024 End: 05-25-2024 ambulatory IMMANUEL YOABNI Not Available Start: 04-27-2024 End: 04-27-2024 Bamboo [...] Not Available Start: 01-02-2024 End: 01-02-2024 ambulatory [facility] Work Phone: Start: 01-02-2024 End: 01-02-2024 Patient encounter procedure [facility] Urgent [...] End: 04-29-[address] IMMANUEL [place] . Facility: Start: 04-04-2022 End: 04-05-[address] IMMANUEL [place] . Facility: Procedures Date Procedure Procedure Detail Performing Clinician Start: 09-16-2024 US OB GROWTH Immanuel Fazi o DO Work Phone: Start: 09-16-2024 US OB BPP W NON-STRESS Immanuel Yobani DO Work Phone: Start: 09-12-2024 [facility] TOTAL PROTEIN 24 HOUR [...] malign ant neoplasm of cervix Pap Smear [facility] Start: 06-15-2025 Tobacco Screening Tobacco Screening [facility] Start: 09-22-2024 End: 09-22-2024 Patient encounter procedure 09/22/2024 9:20 AM EST Routine [facility] [address] [place] [address] Immanuel Hilton, DO [address] [place] [address] [facility] Start: 09-08-2024 End: 09-08-2025 Alanine aminotransferase [Enzymatic activity/volume] in Serum or Plasma ALT Lab Routine induced hypertension, antepartum Expected: 09/08/2024 (Approximate), Expires: 09/08/2025 [facility] Comment on above: Expected: 09/08/2024 (Approximate), Expires: 09/08/2025 Start: 09-08-2024 End: 09-08-2025 Aspartate aminotransferase [Enzymatic activity/volume] in Serum or Plasma AST Lab Routine induced hypertension, antepartum Expected: 09/08/2024 (Approximate), Expires: 09/08/2025 [facility] Comment on above: Expected: 09/08/2024 (Approximate), Expires: 09/08/2025 Start: 09-08-2024 End: 09-08-2025 CBC W Auto Differential panel - Blood CBC and differential Lab Routine induced hypertension, antepartum Expected: 09/08/2024 (Approximate), Expires: 09/08/2025 [facility] Comment on above: Expected: 09/08/2024 (Approximate), Expires: 09/08/2025 Start: 09-08-2024 End: 09-08-2025 Creatinine [Mass/volume] in Serum or Plasma Creatinine Lab Routine induced hypertension, antepartum Expected: 09/08/2024 (Approximate), Expires: 09/08/2025 [facility] Work Phone: Comment on above: Expected: 09/08/2024 (Approximate), Expires: 09/08/2025 Start: 09-08-2024 End: 09-08-2025 Lactate dehydrogenase [Enzymatic activity/volume] in Serum or Plasma by Lactate to pyruvate reaction Lactate dehydrogenase Lab Routine induced hypertension, antepartum Expected: 09/08/2024, Expires: 09/08/2025 [facility] Comment on above: Expected: 09/08/2024 , Expires: 09/08/2025 Start: 09-08-2024 End: 09-08-2025 Protein, urine, 24 hour Protein, urine, 24 hour Lab Routine induced hypertension, antepartum Expected: 09/08/2024 (Approximate), Expires: 09/08/2025 [facility] Comment on above: Expected: 09/08/2024 (Approximate), Expires: 09/08/2025 Start: 09-08-2024 End: 09-08-2025 Pt and ptt Pt and ptt Lab Routine induced hypertension, antepartum Expected: 09/08/2024, Expires: 09/08/2025 [facility] Comment on above: Expected: 09/08/2024 , Expires: 09/08/2025 Start: 09-08-2024 End: 09-08-2025 Urate [Mass/volume] in Serum or Plasma Uric acid Lab Routine induced hypertension, antepartum Expected: 09/08/2024 (Approximate), Expires: 09/08/2025 [facility] Comment on above: Expected: 09/08/2024 (Approximate), [...] AM EST Routine [facility] [address] [place] [id number] Immanuel Hilton, DO [address] [place], [place] [id number] [facility] Start: 08-27-2024 End: 08-27-2024 Professional / ancillary services management 08/27/2024 11:00 AM EST Ancillary Procedure [facility] [address] [place] [id number] [facility] Start: 08-12-2024 End: 08-12-2025 [...] mellitus screening Expected: 07/20/2024 (Approximate), Expires: 07/20/2025 [facility] Comment on above: Expected: 07/20/2024 (Approximate), Expires: 07/20/2025 Start: 07-20-2024 End: 07-20-2025 US for US OB SCAN FOR GROWTH Imaging Routine PCOS (polycystic ovarian syndrome) resulting from in vitro fertilization, antepartum Expected: 07/20/2024 (Approximate), Expires: 07/20/2025 [facility] Comment on above: Expected: 07/20/2024 (Approximate), Expires: 07/20/2025 Start: 07-20-2024 End: 07-20-2024 Patient encounter procedure [facility] Comment on above: 26 weeks gestation o f ; Diabetes mellitus screening Start: 06-22-2024 End: 06-22-2025 ECG 12 lead ECG 12 lead ECG Routine Personal history of cardiac murmur Expected: 06/22/2024 (Approximate), Expires: 06/22/2025 [facility] Work Phone: Comment on above: Expected: 06/22/2024 (Approximate), Expires: 06/22/2025 Start: 06-22-2024 End: 06-22-2024 Patient encounter procedure [facility] Comment on above: Arrived Start: 06-15-2024 End: 06-15-2024 Patient encounter procedure [facility] Start: 05-25-2024 End: 11-23-2024 Alpha fetoprotein, maternal [...] Procedure [facility] [address] [place] [id number] [facility] Start: 04-27-2024 End: 04-27-2025 US Pelvis transvaginal US OB transvaginal Imaging Routine Encounter for screening for cervical length Expected: 04/27/2024 (Approximate), Expires: 04/27/2025 [facility] Work Phone: Comment on above: Expected: 04/27/2024 (Approximate), Expires: 04/27/2025 Start: 04-27-2024 End: 04-27-2024 Patient encounter procedure 04/27/2024 10:20 AM EDT Routine [facility] [address] [place] [id number] Immanuel Hilton, DO [address] [place] [address] [facility] Start: 03-29-2024 COVID-19 Vaccine ( season) COVID-19 Vaccine ( season) [facility] Start: 03-29-2024 Influenza vaccination N [facility] Start: 03-27-2024 End: 03-27-2025 ABO/Rh ABO/Rh Lab Routine Missed menses Expected: 03/27/2024 (Approximate), Expires: 03/27/2025 [facility] Comment on above: Expected: 03/27/2024 (Approximate), Expires: 03/27/2025 Start: 03-27-2024 End: 03-27-2025 Blood type and Indirect antibody screen panel - Blood Type and screen Lab Routine Missed menses Expected: 03/27/2024 (Approximate), Expires: 03/27/2025 [facility] Work Phone: Comment on above: Expected: 03/27/2024 (Approximate), Expires: 03/27/2025 Start: 03-27-2024 End: 03-27-2025 US Pelvis transvaginal US OB transvaginal Imaging Routine Missed menses Expected: 03/27/2024 (Approximate), Expires: 03/27/2025 [facility] Comment on above: Expected: 03/27/2024 (Approximate), Expires: 03/27/2025 Start: 2020 Screening for malign ant neoplasm of cervix Pap Smear [facility] Start: 2018 DTaP,Tdap and Td Vac cines (1 - Tdap) DTaP,Tdap and Td Vaccines (1 - Tdap) [facility] Start: 2017 Adult BMI Screening Adult BMI Screen ing [facility] Start: 2011 Depression Screening Depression Scre ening [facility] Start: 2011 Tobacco Screening Tobacco Screening [facility] Start: 1999 Screening for Chlamy leoncio trachomatis Chlamydia Screening [facility] Bacteria identified in Urine by Culture Urine culture Microbiology Routine Missed menses Ordered: 03/27/2024 [facility] Comment on above: Ordered: 03/27/2024 CBC W Auto Different ial panel - Blood CBC and differential Lab Routine Missed menses Ordered: 03/27/2024 [facility] Comment on above: Ordered: 03/27/2024 CHLAMYDIA TRACHOMATI S (GENITO/STI) CHLAMYDIA TRACHOMATIS (GENITO/STI) Lab Routine STD exposure Ordered: 05/25/2024 [facility] Comment on above: Ordered: 05/25/2024 Cytology Cervical or vaginal smear or scraping study Pap Smear Pathology and Cytology Routine Well woman exam with routine gynecological exam Ordered: 05/25/2024 [facility] Work Phone: Comment on above: Ordered: 05/25/2024 Hemoglobin A1c/Hemoglobin.total in Blood Hemoglobin A1c Lab Routine Missed menses Ordered: 03/27/2024 [facility] Comment on above: Ordered: 03/27/2024 Hepatitis B virus love rface Ag [Presence] in Serum or Plasma by Immunoassay Hepatitis B surface antigen Lab Routine Missed menses Ordered: 03/27/2024 [facility] [facility] Comment on above: Ordered: 03/27/2024 Hepatitis C virus Ab [Presence] in Serum or Plasma by Immunoassay Hepatitis C antibody Lab Routine Missed menses Ordered: 03/27/2024 [facility] Comment on above: Ordered: 03/27/2024 HIV-1/HIV-2 antigen/antibody combination immunoassay HIV-1 and HIV-2 antibodies Lab Routine Missed menses Ordered: 03/27/2024 [facility] Comment on above: Ordered: 03/27/2024 Neisseria gonorrhoea e DNA [Presence] in Unspecified specimen by BUCK with probe detection Neisseria gonorrhea DNA probe, direct Lab Routine STD exposure Ordered: 05/25/2024 [facility] Comment on above: Ordered: 05/25/2024 Reagin Ab [Presence] in Serum by RPR RPR Lab Routine Missed menses Ordered: 03/27/2024 [facility] Comment on above: Ordered: 03/27/2024 Rubella antibody, IgG Rubella an tibody, IgG Lab Routine Missed menses Ordered: 03/27/2024 [facility] Comment on above: Ordered: 03/27/2024 SURESWAB(R) ADVANCED VAGINITIS PLUS, TMA SURESWAB(R) ADVANCED VAGINITIS PLUS, TMA Pathology and Cytology Routine Vaginal discharge Ordered: 05/25/2024 [facility] Comment on above: Ordered: 05/25/2024 Payers Date Payer Category Payer Commercial Managed C are - PPO [employer] [id number] 2023 [facility] er [id number] 2023 Unknown [id number] 2021 Private Health Insurance [id number] 2021 Unknown [id number]. 1.13.693.2. 7.3.266909.315 2021 Unknown [id number] 1999 Unknown [id number] 2.16.840.1.474757.3.579.2. 593 1999 Unknown [id number] 2.16.840.1.759443.3.579.2. 593 1999 Unknown [id number] 2.16.840.1.696611.3.579.2. 593 1999 Unknown [id number] 2.16.840.1.167162.3.579.2. 593 1999 Unknown [id number] 2.16.840.1.832110.3.579.2. 593 1999 Unknown [id number] 2.16.840.1.210544.3.579.2. 593 1999 Unknown [id number] 2.16.840.1.855486.3.579.2. 593 1999 Unknown [id number] 2.16.840.1.691904.3.579.2. 1286 1999 Unknown [id number] 2.16.840.1.129369.3.579.2. 1286 1999 Unknown [id number] 2.16.840.1.398467.3.579.2. 1259 1999 Unknown [id number] 2.16.840.1.113249.3.579.2. 1259 1999 Unknown [id number] 2.16.840.1.720451.3.579.2. 1259 1999 Unknown [id number] 2.16.840.1.908712.3.579.2. 1259 1999 Unknown [id number] 2.16.840.1.418468.3.579.2. 125 1999 Unknown [id number] 2.16.840.1.528089.3.579.2. 1259 1999 Unknown [id number] 2.16.840.1.217498.3.579.2. 1258 1999 Unknown [id number] 2.16.840.1.075023.3.579.2. 1259 1999 Unknown [id number] 2.16.840.1.232206.3.579.2. 1258 1999 Unknown [id number] 2.16.840.1.880825.3.579.2. 1258 1999 Unknown [id number] 2.16.840.1.360062.3.579.2. 1259 1959 Private Health Insurance [id number] 1960 Unknown [id number] Social History Date Type Detail Facility Tobacco smoking stat us NHIS Unknown if ever smoked [facility] Work Phone: Start: 2000 Sex Assigned At Female F [facility] Start: 01-02-2024 End: 05-27-2024 Tobacco smoking status NHIS Never smoked tobacco [facility] Start: 01-02-2024 End: 05-27-2024 Tobacco use and exposure Smokeless tobacco non-user [facility] Start: 04-27-2024 End: 08-27-2024 Alcoholic beverage intake Ex-drinker (finding) [facility] Start: 01-02-2024 End: 06-15-2024 History of Social function [facility] Start: 01-02-2024 End: 06-15-2024 Tobacco use panel [facility] Start: 01-29-2024 [facility] Start: 11-26-2023 Gender identity Identifies as female gender (finding) [facility] Start: 05-27-2024 End: 06-15-2024 Alcoholic beverage intake Lifetime non-drinker (finding) [facility] Start: 2000 Sex assigned at Not on file P [facility] Start: 05-26-2024 Sex Female (finding) [facility] Medical Equipment Procedure Code Equipment Code Equipment Origin al Text Equipment Identifier Dates 1 strip by In Vi tro route Daily Use in the morning prior to breakfast, 1 hour after each meal for a total of 4times daily. [id number] Start: 07-20-2024 End: 08-19-2024 1 each by In Vit ro route Daily Use to check FSBS four times daily [id number] Start: 07-20-2024 End: 08-19-2024 Goals Date Patient Goal Desired Activity /State Personal health goal Clinical Notes 03-27-2024 to 09-08-2024 Chika Tracy LPN - 09/08/2024 8:30 AM Gautam Peter LPN - 08/27/2024 11:40 AM Donell Tracy LPN - 08/12/2024 11:10 AM Kamille Garcia, KRISTOPHER - 07/20/2024 10:20 AM EST Note Date [...] apply, As needed Blood Glucose Monitoring Suppl (DJack and Jake's Glucometer) w/Device kit 1 kit, Does not apply, Daily, Use four times daily to check FSBS. In the morning prior to breakfast & 1 hour after each meal for a total of 4times daily. Continuous Glucose Abrasive Sawyer (FreeStyle Jenise 3 Bricelyn) device 1 each, Does not apply, Every 14 days Continuous Glucose Sensor (FreeStyle Jenise 3 Sensor) misc 1 each, Does not apply, Every 14 days Multiple Vitamin (multivitamin) tablet 1 tablet, Daily terconazole (Terazol 7) 0.4 % vaginal cream 1 applicator, Vaginal, Nightly ALLERGIES Allergies Allergen Reactions [place] Flavor [[place] Oil] Latex Hives, Itching, Rash and Swelling [...] nursing note reviewed. 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 Vitals: Estimated body mass index is [...] Immanuel Hilton DO documented in this encounter [facility] 08-27-2024 History of Present illness Narrative Reason [...] apply, As needed Blood Glucose Monitoring Suppl ([employer] Glucometer) w/Device kit 1 kit, Does not apply, Daily, Use four times daily to check FSBS. In the morning prior to breakfast & 1 hour after each meal for a total of 4times daily. Continuous Glucose Abrasive Sawyer (FreeStyle Jenise 3 Bricelyn) device 1 each, Does not apply, Every 14 days Continuous Glucose Sensor (FreeStyle Jenise 3 Sensor) misc 1 each, Does not apply, Every 14 days metroNIDAZOLE (FLAGYL) 500 mg, Oral, 2 times daily, Do not drink alcohol while taking this medication Multiple Vitamin (multivitamin) tablet 1 tablet, Daily ALLERGIES Allergies Allergen Reactions [place] Flavor [[place] Oil] Latex Hives, Itching, Rash and Swelling [...] nursing note reviewed. 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 Vitals: Estimated body mass index is [...] Immanuel Hilton DO documented in this encounter [facility] 08-12-2024 History of Present illness Narrative Reason [...] 1 tablet, Daily ALLERGIES Allergies Allergen Reactions [place] Flavor [[place] Oil] Latex Hives, Itching, Rash and Swelling [...] nursing note reviewed. 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 Vitals: Estimated body mass index is [...] Immanuel Hilton DO documented in this encounter [facility] 07-20-2024 History of Present illness Narrative Reason [...] mg, Oral, Daily ALLERGIES Allergies Allergen Reactions [place] Flavor [[place] Oil] Latex Hives, Itching, Rash and Swelling [...] Immanuel Hilton DO documented in this encounter [facility] 06-22-2024 History of Present illness Narrative Reason [...] mg, Oral, Daily ALLERGIES Allergies Allergen Reactions [place] Flavor [[place] Oil] Latex Hives, Itching, Rash and Swelling [...] Immanuel Hilton DO documented in this encounter [facility] 06-15-2024 History of Present illness Narrative [facility] [...] Allergies: Allergies Allergen Reactions Latex, Natural Rubber [place] Meds: Prior to Admission medications Medication Sig [...] other morbidities. Based on the available evidence, [facility] recommends treatment with antihypertensive therapy for mild [...] preeclampsia prevention as is recommended by the [place] [employer] Committee Opinion No. 743. [...] MD, FACOG (she/hers) Maternal- Medicine [facility] [address] [place] [address] This document was created with LiB technology. Though I make every effort to review the dictation as it is transcribed, on occasion the spoken word can be misinterpreted by the technology leading to inappropriate words, phrases, or sentences. This note is addressed to the requesting provider as a consultation for clinical guidance. Specific medical abbreviations are occasionally used and those are generally approved by the [place]?Board of?Obstetrics and?Gynecology?as well as?Kenzie s abbreviations. The above plan of care was based solely on the diagnoses for which a consultation was requested. ?More frequent testing may be indicated based on her other medical/obstetrical conditions. The management of other or medical conditions is beyond the scope of requested consultation and will continue to be followed by the primary floor sanding machine operator or primary care provider. Note to [...] IVF Have you been seen here at [facility] in a previous ? N/a Recent ER visits or hospitalizations? no Bring blood sugar log or meter with you today? (Please bring them with you for every visit at [facility]) no Flu vaccine (May-September)? no Any concerns that you would like me to mention to the provider today? no documented in this encounter [facility] 05-25-2024 History of Present illness Narrative Reason [...] mg, Oral, Daily ALLERGIES Allergies Allergen Reactions [place] Flavor [[place] Oil] Latex Hives, Itching, Rash and Swelling [...] nursing note reviewed. 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 Vitals: Estimated body mass index is [...] Immanuel Hilton DO documented in this encounter [facility] 04-27-2024 History of Present illness Narrative Reason [...] mg, Oral, Daily ALLERGIES Allergies Allergen Reactions [place] Flavor [[place] Oil] Latex Hives, Itching, Rash and Swelling [...] nursing note reviewed. 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 Vitals: Estimated body mass index is [...] or undercooked meat, and stay away from [facility]. Patient has been consulted regarding any further do's and don'ts of . Patient voiced understanding and all questions and concerns were answered. Orders Placed This Encounter Procedures POCT urinalysis dipstick manually resulted Follow Up: Patient is to return in 4 weeks for routine OB appointment. Documented by Epseranza Peter LPN on behalf of: Immanuel Hilton DO documented in this encounter [facility] 03-27-2024 History of Present illness Narrative Reason [...] Procedure Laterality Date TONSILLECTOMY Allergies Allergen Reactions [place] Flavor [[place]ag[place]a Oil] Latex Hives, Itching, Rash and Swelling [...] or undercooked meat, and stay away from [facility]. Patient has also been advised to [...] Jo-Ann Motta LPN documented in this encounter [facility] Evaluation note No assessment inform ation available [facility] Work Phone: Evaluation note Diagnosis Well woman exam with routine gynecological exam Routine gynecological examination Second trimester state, incidental Vaginal discharge Leukorrhea, not specified as infective STD exposure documented [facility] Diagnosis Second trimester state, incidental 22 [...] , antepartum documented in this encounter [facility]* Diagnosis 21 weeks gestation of - Primary Chronic hypertension affecting In vitro fertilization Encounter for assisted reproductive fertility procedure cycle documented [facility] SystemInstructionsNot on filedocumented in this encounter [facility] System[facility]* Attachments The following attachments cannot be sent through Care Everywhere. * Preeclampsia ([place]) [facility] Purpose Family History Relationship Condition Age at Onset Recorded Date/T yosi family member Unknown Heart disease Unknown Advance Directives Advance Directive Response Recorded Date/ Time Advance Directives No January 01 9:07am Chief Complaint and Reason for Visit Chief Complaint Congestion Additional Source Comments INFORMATION SOURCE (unrecogn ized section and content) DATE CREATED AUTHOR 03/06/2019 [facility] DATE CREATED AUTHOR AUTHOR'S ORGANIZ ATION 12/21/2021 [facility] DATE CREATED AUTHOR AUTHOR'S ORGANIZ ATION 12/01/2022 [facility] DATE CREATED AUTHOR AUTHOR'S ORGANIZ ATION 06/17/2024 [facility] DATE CREATED AUTHOR AUTHOR'S ORGANIZ ATION 09/09/2024 [facility] Care Teams (unrecognized sec tion and content) Team Status: Active Member Role Status Dates Damon Stover DO Primary Care Provider Active Team Status: Inactive Member Role Status Dates Damon Stover DO Primary Care Provider Active Start: January 02, 2024 End: January 02, 2024 Teresa Sanchez APRN Attending Provider Active S tart: January 02, 2024 End: January 02, 2024 Log Marker Relationship Specialty Start Date End Date Akila Grant MD [address] [facility] [place] [address] PCP - General Family Medicine 11/27/23 Log Marker Relationship Specialty Start Date End Date Akila Grant MD [address] [facility] [place] [address] PCP - General Family Medicine 11/27/23 Log Marker Relationship Specialty Start Date End Date Akila Grant MD [address] [facility] [place] [address] PCP - General Family Medicine 11/27/23 Log Marker Relationship Specialty Start Date End Date Akila Grant MD [address] [facility] [place] [address] PCP - General Family Medicine 11/27/23 Log Marker Relationship Specialty Start Date End Date Akila Grant MD [address] [facility] [place] [address] PCP - General Family Medicine 11/27/23 Log Marker Relationship Specialty Start Date End Date Akila Grant MD [address] [facility] [place] [address] PCP - General Family Medicine 11/27/23 Log Marker Relationship Specialty Start Date End Date Akila Grant MD [address] [facility] [place] [address] PCP - General Family Medicine 11/27/23 Log Marker Relationship Specialty Start Date End Date Akila Grant MD [address] [facility] [place] [address] PCP - General Family Medicine 11/27/23 Log Marker Relationship Specialty Start Date End Date Akila Grant MD [address] [facility] [place] [address] PCP - General Family Medicine 11/27/23 Log Marker Relationship Specialty Start Date End Date Akila Grant MD [address] [facility] [place] [address] PCP - General Family Medicine 11/27/23 Log Marker Relationship Specialty Start Date End Date Akila Grant MD [address] [facility] [place] [address] PCP - General Family Medicine 11/27/23 Log Marker Relationship Specialty Start Date End Date Akila Grant MD [address] [facility] [place] [address] PCP - General Family Medicine 11/27/23 Log Marker Relationship Specialty Start Date End Date Akila Grant MD [address] [facility] [place] [address] PCP - General Family Medicine 11/27/23 Log Marker Relationship Specialty Start Date End Date Akila Grant MD [address] [facility] [place] [address] PCP - General Family Medicine 11/27/23 Log Marker Relationship Specialty Start Date End Date Akila Grant MD [address] [place] [address] PCP - General Family Medicine 11/27/23 Log Marker Relationship Specialty Start Date End Date Akila Grant MD [address] [place] [address] PCP - General Family Medicine 11/27/23 Goals (unrecognized section and content) Goals may be documented in a n alternate sectionNot on filedocumented as of this encounterNot on filedocumented as of this encounterNot on filedocumented as of this encounter Reason for Visit (unrecogniz ed section and content) Reason Comments Routine Visit Well Women Visit STI Screening Reason Comments Routine Visit Reason Comments Amenorrhea Reason Comments Routine Visit Pt complains of h aving left side pain when baby lays on that side. Reason Comments Hypertension IVF FOR RECORDS PERTAINING TO PATIENTS WHO ARE [...] BE BASED ON THE PRIMARY CLINICAL RECORDS. [employer] [facility]. provides no warranty or guarantee of the accuracy or completeness of information in this document.
[2024-09-19 08:03] VITALS: BP 119/77; PULSE 136; TEMP 35.6; TEMP 35.7
== END 2024-09-19 09:00 | disposition home or self-care (01) ==
LOC: FBCO 00:11 → FBC 07:57
PROVIDERS: PCP Family Medicine; Visit Provider Obstetrics & Gynecology
DX: O24.419 Gestational diabetes mellitus in pregnancy, unspecified control (principal); Z3A.35 35 weeks gestation of pregnancy
CPT/HCPCS: 59025

== ENCOUNTER 2024-09-20 12:43 | Emergency (ER) | payer OTHER, BC, SELFPAY ==
--- OUTSIDE RECORDS SUMMARY | 2024-09-20 12:51 | XMS_ITS | CCD ---
Author Organization [facility] Care Team Providers Care Loader Operator Name Role Phone YOBANI ., DR SMITH [...] Unavailable Akila Grant MD Primary Care Provider [phone] IMMANUEL HILTON R Referring Unavailable CELE RODRIGUEZ Attending Unavailable YOBANIIMMANUEL CLAY R Referring Unavailable YOBANI, IMMANUEL Referring Unavailable YOBANI, IMMANUEL Attending Unavailable YOBANI, IMMANUEL Attending Unavailable YOBANI, IMMANUEL Attending Unavailable JIM, JOHNNY Attending Unavailable IMMANUEL HILTON Attending Unavailable IMMANUEL HILTON Attending Unavailable IMMANUEL HILTON Attending Unavailable IMMANUEL HILTON Attending Unavailable IMMANUEL HILTON Attending Unavailable Unavailable Primary Care Provider Unavailabl e Allergies Allergy Classification Reported Allergen(s) Allergy Type Date of Onset Reaction(s) Facility (2 sources) Latex Drug allergy (disorder) 0 hives [facility] (1 source) orange flavor Drug allergy (disorder) 0 [facility] (5 sources) [place] - fruit; Translations: [ORANGE] 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 4 anaphylaxis [facility] (20 sources) Latex 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 4 Hives, Itching, Rash, Swelling [facility] (20 sources) orange allergenic extract Drug Allergy 4 [facility] Work Phone: (1 source) [...] MCG/0.5ML injection 11/26/2023 03/27/2024 Discontinued Continuous Glucose Construction Project Assistant (FreeStyle Jenise 3 Delta) device (12 sources) Start: 08-20-2024 Continuous Glucose Construction Project Assistant (FreeStyle Jenise 3 Delta) device Indications: Gestational diabetes mellitus (GDM), antepartum, [...] Facility OB BPP W NON-STRESS on 09-16-2024 [place] [address] Ultrasound Report Signed Patient: AMY MARIO MR#: [id number] : 2000 Acct:[id number] Age/Sex: 24 / F ADM Date: 09/16/24 Loc: [facility] 250-[address]: Immanuel Hilton D.O. Ordering Physician: Immanuel Hilton D.O. Date of Service: 09/16/24 Procedure(s): US OB BPP w non-stress Accession Number(s): [id number] cc: Akila Grant M.D.; Immanuel Hilton D.O. [address] [address] Patient Name: AMY MARIO MRN: [id number] date: 2000 Sex: F Assigned Patient Location: [facility] Current Patient Location: [facility] Accession/Order Number: [id number] Exam Date: 09/16/2024 09:04 Report Date: 09/16/2024 [...] 34 weeks 4 days. The heart rate [id number] beats per minute. FINDINGS: TONE: 1 or [...] Chika Holden M.D.09/16/2024 9:06 AM Dictation Location: [place] [address] Electronically authenticated by: [id number] Y Date: 09/16/2024 09:06 Dictated By: Chika Holden M.D. Signed By: 09/16/24908 DD/ 5 TD/TT: Automotive Painter Helper: [facility] Radiology, Radiologist, MD - 09/16/2024 [place] [address] Ultrasound Report Signed Patient: AMY MARIO MR#: [id number] : 2000 Acct:[id number] Age/Sex: 24 / F ADM Date: 09/16/24 Loc: [facility] 250-[address]: Immanuel Hilton D.O. Ordering Physician: Immanuel Hilton D.O. Date of Service: 09/16/24 Procedure(s): US OB BPP w non-stress Accession Number(s): [id number] cc: Akila Grant M.D.; Immanuel Hilton D.O. The [place] [address] Patient Name: AMY MARIO MRN: [facility]:[id number] date: 2000 Sex: F Assigned Patient Location: [facility] Current Patient Location: [facility] Accession/Order Number: [id number] Exam Date: 09/16/2024 09:04 Report Date: 09/16/2024 [...] 34 weeks 4 days. The heart rate [id number] beats per minute. FINDINGS: TONE: 1 or [...] Chika Holden M.D.09/16/2024 9:06 AM Dictation [facility] Electronically authenticated by: [id number] Y Date: 09/16/2024 09:06 Dictated By: Chika Holden M.D. Signed By: 09/16/24908 DD/ 5 TD/TT: Automotive Painter Helper: [facility] Radiology Study observation (narrative) [facility] US OB BPP W NON-STRESS Ordered By: Radiologist Radiology on 09-16-2024 [facility] Work Phone: US OB GROWTHon 09-16-2024 [place] [address] Ultrasound Report Signed Patient: AMY MARIO MR#: [id number] : 2000 Acct:[id number] Age/Sex: 24 / F ADM Date: 09/16/24 Loc: [facility] 250-[address]: Immanuel Hilton D.O. Ordering Physician: Immanuel Hilton D.O. Date of Service: 09/16/24 Procedure(s): US OB growth Accession Number(s): [id number] cc: Akila Grant M.D.; Immanuel Hilton D.O. [address] [address] Patient Name: AMY MARIO MRN: [id number] date: 2000 Sex: F Assigned Patient Location: [facility] Current Patient Location: [facility] Accession/Order Number: [id number] Exam Date: 09/16/2024 09:07 Report Date: 09/16/2024 [...] Chika Holden M.D.09/16/2024 9:15 AM Dictation Location: [place] [address] Electronically authenticated by: [id number] Y Date: 09/16/2024 09:15 Dictated By: Chika Holden M.D. Signed By: 09/16/24917 DD/ 4 TD/TT: Automotive Painter Helper: [facility] Radiology, Radiologist, - 09/16/2024 [place] [address] Ultrasound Report Signed Patient: AMY MARIO MR#: [id number] : 2000 Acct:[id number] Age/Sex: 24 / F ADM Date: 09/16/24 Loc: [facility] 250-[address]: Immanuel Hilton D.O. Ordering Physician: Immanuel Hilton D.O. Date of Service: 09/16/24 Procedure(s): US OB growth Accession Number(s): [id number] cc: Akila Grant M.D.; Immanuel Hilton D.O. [address] [address] Patient Name: AMY MARIO MRN: [facility]:[id number] date: 2000 Sex: F Assigned Patient Location: [facility] Current Patient Location: [facility] Accession/Order Number: [id number] Exam Date: 09/16/2024 09:07 Report Date: 09/16/2024 [...] Chika Holden M.D.09/16/2024 9:15 AM Dictation Location: [place] [address] Electronically authenticated by: [id number] Y Date: 09/16/2024 09:15 Dictated By: Chika Holden M.D. Signed By: 09/16/24917 DD/ 4 TD/TT: Automotive Painter Helper: [facility] Radiology Study observation (narrative) [facility] OB GROWTHOrdered By: Kaye galarzaogyamini Radiology on 09-16-2024 [facility] Work Phone: TB TOTAL PROTEIN 24 HOUR UR INEon 09-12-2024 Interpretation and review of laboratory results Abnormal [facility] Protein (U) [Mass/Vol] 29.7 mg/dL High NINF - 11.9 mg/dL [facility] TB TOTAL PROTEIN 24 HOUR URINE 148.5 NINF [facility] TOTAL VOLUME 24 HOUR URINE 500 mL/24hr [facility] ALL CBC WITH AUTO DIFFon BASOPHILS ABSOLUTE AUTO 0 [facility] Basophils/100 WBC (Bld) 0.1 % Low 0.2 - 2.0 % [facility] Eosinophils/100 WBC (Bld) 0.7 % Low 0.9 - 7.0 % [facility] Erythrocyte distribution width (RBC) [Ratio] 13.4 % 11.0 - 15.0 % [facility] Hematocrit (Bld) [Volume fraction] 32.2 % Low 36.0 - 48.0 % [facility] Hemoglobin (Bld) [Mass/Vol] 10.6 g/dL Low 12.0 - 16.0 g/dL [facility] IMMATURE GRANULOCYTES ABS AUTO 0.06 High [facility] Immature granulocytes/100 WBC (Bld) 0.9 % High 0.0 - 0.5 % [facility] Interpretation and review of laboratory results Abnormal [facility] LYMPHOCYTES ABSOLUTE AUTO 1.4 [facility] Lymphocytes/100 WBC (Bld) 19.7 % Low 20.5 - 60.0 % [facility] MCH (RBC) [Entitic mass] 28.3 pg 26.7 - 34.0 pg [facility] MCHC (RBC) [Mass/Vol] 32.9 g/dL 29.9 - 35.2 g/dL [facility] MCV (RBC) [Entitic vol] 85.9 fL 81.0 - 99.0 fL [facility] MONOCYTES ABSOLUTE AUTO 0.5 [facility] Monocytes/100 WBC (Bld) 7.4 % 1.7 - 12.0 % [facility] NEUTROPHILS ABSOLUTE AUTO 4.9 [facility] Neutrophils/100 WBC (Bld) 71.2 % 43.0 - 75.0 % [facility] Platelet mean volume (Bld) [Entitic vol] 10.4 fL 9.5 - 13.5 fL [facility] TBH EO # 0.1 [facility] TB PLT 391 [facility] RBC 3.75 Low [facility] TB WBC 6.9 [facility] US OB BPP W NON-STRESS on 09-09-2024 [place] [address] Ultrasound Report Signed Patient: AMY MARIO MR#: [id number] : 2000 Acct:[id number] Age/Sex: 24 / F ADM Date: 09/09/24 Loc: US Attending Dr: Immanuel Hilton D.O. Ordering Physician: Immanuel Hilton D.O. Date of Service: 09/09/24 Procedure(s): US OB BPP w non-stress Accession Number(s): [id number] cc: Akila Grant M.D.; Immanuel Hilton D.O. The [place] [address] Patient Name: AMY MARIO MRN: [facility]:[id number] date: 2000 Sex: F Assigned Patient Location: [facility] Current Patient Location: ED.MAIN Accession/Order Number: [id number] Exam Date: 09/09/2024 07:58 Report Date: 09/09/2024 [...] Signed By: 09/09/24 1132 DD/ 1130 TD/TT: Automotive Painter Helper: [facility] Radiology, Radiologist, MD - 09/09/2024 [place] [address] Ultrasound Report Signed Patient: AMY MARIO MR#: [id number] : 2000 Acct:[id number] Age/Sex: 24 / F ADM Date: 09/09/24 Loc: US Attending Dr: Immanuel Hilton D.O. Ordering Physician: Immanuel Hilton D.O. Date of Service: 09/09/24 Procedure(s): US OB BPP w non-stress Accession Number(s): [id number] cc: Akila Grant M.D.; Immanuel Hilton D.O. [place] [address] Patient Name: AMY MARIO MRN: [id number] date: 2000 Sex: F Assigned Patient Location: [facility] Current Patient Location: ED.MAIN Accession/Order Number: [id number] Exam Date: 09/09/2024 07:58 Report Date: 09/09/2024 [...] Signed By: 09/09/24 1132 DD/ 1130 TD/TT: Automotive Painter Helper: [facility] Radiology Study observation (narrative) [facility] US OB BPP W NON-STRESS Ordered By: Radiologist Radiology on 09-09-2024 [facility] Work Phone: Urinalysis macro (dipstick) panel (U)on 09-08-2024 Bilirubin, UA Trace Negative - 4(70) +++ mg/dL [facility] Blood, UA Positive Negative - 50 Jimy/mcL [facility] Clarity, UA Clear [facility] Color, UA Yellow [facility] Glucose, UA Negative Negative - 2000(110) ++++ mg/dL [facility] Interpretation and review of laboratory results Abnormal [facility] Ketones, UA Negative Negative - 160(16) ++++ mg/dL [facility] Leukocytes, UA Positive Negative - 500+++ Mychal/mcL [facility] Nitrite, UA Negative Negative - Positive [facility] pH, UA 6 5 - 9 [facility] Protein, UA Positive Negative - 1999(20) ++++ mg/dL [facility] Spec Grav, UA 1.025 1 - 1.03 [facility] Urobilinogen, UA 0.2 0.2 - 12 mg/dL [facility] US OB BPP W NON-STRESS on 09-02-2024 [place] [address] Ultrasound Report Signed Patient: AMY MARIO MR#: [id number] : 2000 Acct:[id number] Age/Sex: 24 / F ADM Date: 09/02/24 Loc: US Attending Dr: Immanuel Hilton D.O. Ordering Physician: Immanuel Hilton D.O. Date of Service: 09/02/24 Procedure(s): US OB BPP w non-stress Accession Number(s): [id number] cc: Akila Grant M.D.; Immanuel Hilton D.O. [address] [id number] Patient Name: AMY MARIO MRN: [id number] date: 2000 Sex: F Assigned Patient Location: [facility] Current Patient Location: Accession/Order Number: [id number] Exam Date: 09/02/2024 08:03 Report Date: 09/02/2024 [...] M.D. Signed By: 09/02/24924 DD/ 1 TD/TT: Automotive Painter Helper: [facility] Radiology, Radiologist, MD - 09/02/2024 [place] [address] Ultrasound Report Signed Patient: AMY MARIO MR#: [id number] : 2000 Acct:[id number] Age/Sex: 24 / F ADM Date: 09/02/24 Loc: US Attending Dr: Immanuel Hilton D.O. Ordering Physician: Immanuel Hilton D.O. Date of Service: 09/02/24 Procedure(s): US OB BPP w non-stress Accession Number(s): [id number] cc: Akila Grant M.D.; Immanuel Hilton D.O. The [place] [id number] Patient Name: AMY MARIO MRN: [facility]:[id number] date: 2000 Sex: F Assigned Patient Location: [facility] Current Patient Location: Accession/Order Number: [id number] Exam Date: 09/02/2024 08:03 Report Date: 09/02/2024 [...] M.D. Signed By: 09/02/24924 DD/ 1 TD/TT: Automotive Painter Helper: [facility] Radiology Study observation (narrative) [facility] US OB BPP W NON-STRESS Ordered By: Radiologist Radiology on 09-02-2024 [facility] Work Phone: US OB FOLLOW UP [...] 2164 gm / 4 lbs, 12 oz (2745-5191 gm) [place] Normal: 1953 gm (2653-8527 mg) [place] 80% for 32.0 wks ([place] [...] report is generated using voice recognition reporting ([employer]). On occasion [facility] erroneously drops words from the report or [...] Negative - 4(70) +++ mg/dL [facility] Comment on above: small Blood, UA Negative Negative - 50 Jimy/mcL [facility], [facility] Color, UA Yellow [facility] Glucose, UA Positive Negative - 2000(110) ++++ mg/dL [facility] Comment on above: 100 Interpretation and review of laboratory results Abnormal [facility] Ketones, UA Positive Negative - 160(16) ++++ mg/dL [facility] Comment on above: trace Leukocytes, UA Positive Negative - 500+++ Mychal/mcL [facility] Comment on above: large Nitrite, UA Negative Negative - Positive [facility] pH, UA 6.5 5 - 9 [facility] Protein, UA Positive Negative - 2000(20) ++++ mg/dL [facility] Comment on above: 30 Spec Grav, UA 1.03 1 - 1.03 [facility] Urobilinogen, UA 0.2 0.2 - 12 mg/dL [facility] BPP W NON-STRESS on 08-26-2024 [place] [address] Ultrasound Report Signed Patient: AMY MARIO MR#: [id number] : 2000 Acct:[id number] Age/Sex: 24 / F ADM Date: 08/26/24 Loc: [facility] 251-[address]: Immanuel Hilton D.O. Ordering Physician: Immanuel Hilton D.O. Date of Service: 08/26/24 Procedure(s): US OB BPP w non-stress Accession Number(s): [id number] cc: Akila Grant M.D.; Immanuel Hilton D.O. The [address] [address] Patient Name: AMY MARIO MRN: [facility]:[id number] date: 2000 Sex: F Assigned Patient Location: [facility] Current Patient Location: [facility] Accession/Order Number: [id number] Exam Date: 08/26/2024 08:00 Report Date: 08/26/2024 [...] Mixon M.D. Signed By: 08/26/2458 DD/ TD/TT: Automotive Painter Helper: [facility] Radiology, Radiologist, MD - 08/26/2024 [place] [address] Ultrasound Report Signed Patient: AMY MARIO MR#: [id number] : 2000 Acct:[id number] Age/Sex: 24 / F ADM Date: 08/26/24 Loc: [facility] 251-[address]: Immanuel Hilton D.O. Ordering Physician: Immanuel Hilton D.O. Date of Service: 08/26/24 Procedure(s): US OB BPP w non-stress Accession Number(s): [id number] cc: Akila Grant M.D.; Immanuel Hilton D.O. [place] [id number] Patient Name: AMY MARIO MRN: [id number] date: 2000 Sex: F Assigned Patient Location: [facility] Current Patient Location: [facility] Accession/Order Number: [id number] Exam Date: 08/26/2024 08:00 Report Date: 08/26/2024 [...] M.D. Signed By: 08/26/2458 DD/ 5 TD/TT: Automotive Painter Helper: [facility] Radiology Study observation (narrative) [facility] US OB BPP W NON-STRESS Ordered By: Radiologist Radiology on 08-26-2024 [facility] Work Phone: Urinalysis macro (dipstick) panel (U)on 08-12-2024 Bilirubin, UA Negative Negative - 4(70) +++ mg/dL [facility] Blood, UA Negative Negative - 50 Jimy/mcL [facility] Clarity, UA Clear [facility] Color, UA Yellow [facility] Glucose, UA Negative Negative - 2000(110) ++++ mg/dL [facility] Interpretation and review of laboratory results Abnormal [facility] Ketones, UA Positive Negative - 160(16) ++++ mg/dL [facility] Comment on above: trace Leukocytes, UA Positive Negative - 500+++ Mychal/mcL [facility] Comment on above: large Nitrite, UA Negative Negative - Positive [facility] pH, UA 5.5 5 - 9 [facility] Protein, UA Trace Negative - 1999(20) ++++ mg/dL [facility] Spec Grav, UA 1.03 1 - 1.03 [facility] Urobilinogen, UA 0.2 0.2 - 12 mg/dL [facility] ALL CBC WITH AUTO DIFFon BASOPHILS ABSOLUTE AUTO 0 [facility] Basophils/100 WBC (Bld) 0.3 % 0.2 - 2.0 % [facility] Eosinophils/100 WBC (Bld) 1 % 0.9 - 7.0 % [facility] Erythrocyte distribution width (RBC) [Ratio] 13.2 % 11.0 - 15.0 % [facility] Hematocrit (Bld) [Volume fraction] 32.6 % Low 36.0 - 48.0 % [facility] Hemoglobin (Bld) [Mass/Vol] 11.3 g/dL Low 12.0 - 16.0 g/dL [facility] IMMATURE GRANULOCYTES ABS AUTO 0.07 High [facility] Immature granulocytes/100 WBC (Bld) 0.9 % High 0.0 - 0.5 % [facility] Interpretation and review of laboratory results Abnormal [facility] LYMPHOCYTES ABSOLUTE AUTO 1.6 [facility] Lymphocytes/100 WBC (Bld) 19.6 % Low 20.5 - 60.0 % [facility] MCH (RBC) [Entitic mass] 30.4 pg 26.7 - 34.0 pg [facility] MCHC (RBC) [Mass/Vol] 34.7 g/dL 29.9 - 35.2 g/dL [facility] MCV (RBC) [Entitic vol] 87.6 fL 81.0 - 99.0 fL [facility] MONOCYTES ABSOLUTE AUTO 0.6 [facility] Monocytes/100 WBC (Bld) 8 % 1.7 - 12.0 % [facility] NEUTROPHILS ABSOLUTE AUTO 5.6 [facility] Neutrophils/100 WBC (Bld) 70.2 % 43.0 - 75.0 % [facility] Platelet mean volume (Bld) [Entitic vol] 9.7 fL 9.5 - 13.5 fL [facility] TBH EO # 0.1 [facility] TBH PLT 400 [facility] RBC 3.72 Low [facility] TB WBC 8 [facility] Urinalysis macro (dipstick) panel (U)on 06-22-2024 Bilirubin, UA Negative Negative - 4(70) +++ mg/dL [facility] Blood, UA Negative Negative - 50 Jimy/mcL [facility] Clarity, UA Clear [facility] Color, UA Yellow [facility] Glucose, UA Negative Negative - 1999(110) ++++ mg/dL [facility] Interpretation and review of laboratory results Abnormal [facility] Ketones, UA Positive Negative - 160(16) ++++ mg/dL [facility] Comment on above: 15 Leukocytes, UA Positive Negative - 500+++ Mychal/mcL [facility] Comment on above: small Nitrite, UA Negative Negative - Positive [facility] pH, UA 5.5 5 - 9 [facility] Protein, UA Trace Negative - 1999(20) ++++ mg/dL [facility] Spec Grav, UA 1.03 1 - 1.03 [facility] Urobilinogen, UA 0.2 0.2 - 12 mg/dL [facility] IGP,APTIMA HPV,AGE GDLNon AGE GDLN ACOG TESTING Note . [facility] Comment on above: TESTS RESULT FLAG UN ITS REF RANGE LAB Clinician Provided Cytology Information Source.............Cervix Other.............. No. of containers..01 ThinPrep Vial Age Algo ACOG Michelle... FLAG LEGEND: L-Low Normal,H-High Normal,LL-Alert Low,HH-Alert High <-Panic Low,>-Panic High,A-Abnormal,AA-Critical Abnormal Performed at: 01 =G [facility] [address] [place] [address] Mar Rivera MD, IGP, RFX APTIMA HPV ASCU Note . [facility] Comment on above: TESTS RESULT FLAG UN ITS REF RANGE LAB DIAGNOSIS: 02 NEGATIVE FOR INTRAEPITHELIAL LESION OR MALIGNANCY. FUNGAL ORGANISMS MORPHOLOGICALLY CONSISTENT WITH CAROLS SPECIES ARE PRESENT. Specimen adequacy: 02 Satisfactory for evaluation. No endocervical component is identified. An endocervical component is not commonly seen in the patient. Performed by: Judy Vera, Director Export ([facility]) . 02 Note: Note 02 The [...] <-Panic Low,>-Panic High,A-Abnormal,AA-Critical Abnormal Performed at: [address] [address] Mar Rivera MD, Performed at: =G - Lab[address] [id number] [employer]: Mar Rivera MD, Phone: [phone] Performed at: - [address] [id number] [employer]: Mar Rivera MD, Phone: [phone] SPATULA-ALONE CERVIX [facility] AFP, SERUM, OPEN SPINA BIFID Aon 05-30-2024 AFP MOM 1.36 . [facility] AFP VALUE 55.4 ng/mL . [facility] COMMENT: Comment . [facility] Comment on above: Ivet Mobley , Ph.D., [facility] Director References: Available Upon Request. Multiples Of Median Cutoffs For AFP Elevations [place] Rosario 2.5 Black 2.8 IDD 2.0 Twins 4.5 Abbreviation Definitions IDD - Insulin Dep Diabetes OSBR - Open Spina Bifida Risk For further inquiries contact [facility] at [phone]. This test was developed and its performance characteristics determined by [employer]. It has not been cleared or approved by the Food and Drug Administration. Performed at: [facility] [address] [place], [place] [id number] [employer]: Kristina Carter [facility], Phone: [phone] GEST. AGE ON COLLECTION DATE 18.6 . weeks [facility] GESTAT. AGE BASED ON LMP . [facility] Comment on above: Recalculations are n ot recommended when gestational dating by LMP and ultrasound are within 10 days. INSULIN DEP DIABETES No . [facility] INTERPRETATION Comment . [facility] Comment on above: Interpretation: Scre en [...] Customer Services to discuss available options. The [employer] recommends amniocentesis be offered to women age 35 and older. MATER[age] AT SARA 25.3 [age] [facility] MULTIPLE GESTATION No . [facility] OSBR RISK 1 IN 403 . [facility] RACE . [facility] RESULTS Report . [facility] TEST RESULTS: Negative . [facility] WEIGHT 185 . lbs [facility] N N LMP [id number] 4 18 N 1 Y 185 N N N N N White/ [facility] Urinalysis macro (dipstick) panel (U)on 04-27-2024 Bilirubin, UA Positive Negative - 4(70) +++ mg/dL [facility] Comment on above: small Blood, UA Negative Negative - 50 Jimy/mcL [facility] Clarity, UA Clear [facility] Color, UA Yellow [facility] Glucose, UA Negative Negative - 2000(110) ++++ mg/dL [facility] Interpretation and review of laboratory results Abnormal [facility] Ketones, UA Positive Negative - 160(16) ++++ mg/dL [facility] Comment on above: trace Leukocytes, UA Positive Negative - 500+++ Mychal/mcL [facility] Comment on above: small Nitrite, UA Negative Negative - Positive [facility] pH, UA 6.0 5 - 9 [facility] Protein, UA Negative Negative - 2000(20) ++++ mg/dL [facility] Spec Grav, UA 1.030 1 - 1.03 [facility] Urobilinogen, UA 0.2 0.2 - 12 mg/dL [facility] ALL CBC WITH AUTO DIFFon BASOPHILS ABSOLUTE AUTO 0.0 [facility] Basophils/100 WBC (Bld) 0.1 % Low 0.2 - 2.0 % [facility] Eosinophils/100 WBC (Bld) 0.9 % 0.9 - 7.0 % [facility] Erythrocyte distribution width (RBC) [Ratio] 13.0 % 11.0 - 15.0 % [facility] IMMATURE GRANULOCYTES ABS AUTO 0.03 [facility] Immature granulocytes/100 WBC (Bld) 0.3 % 0.0 - 0.5 % [facility] Interpretation and review of laboratory results Abnormal [facility] LYMPHOCYTES ABSOLUTE AUTO 2.3 [facility] Lymphocytes/100 WBC (Bld) 26.6 % 20.5 - 60.0 % [facility] MCH (RBC) [Entitic mass] 30.1 pg 26.7 - 34.0 pg [facility] MCHC (RBC) [Mass/Vol] 34.6 g/dL 29.9 - 35.2 g/dL [facility] MCV (RBC) [Entitic vol] 87.0 fL 81.0 - 99.0 fL [facility] MONOCYTES ABSOLUTE AUTO 0.4 [facility] Monocytes/100 WBC (Bld) 4.1 % 1.7 - 12.0 % [facility] NEUTROPHILS ABSOLUTE AUTO 5.9 [facility] Neutrophils/100 WBC (Bld) 68.0 % 43.0 - 75.0 % [facility] Platelet mean volume (Bld) [Entitic vol] 9.6 fL 9.5 - 13.5 fL [facility] TBH EO # 0.1 [facility] PLT 400 [facility] RBC 4.55 [facility] WBC 8.7 [facility] CLINISYNC CBC without diffon Rbc Mcv (Fl) By Automated Count 87 [facility] - Hematology and Cell countson 04-08-2024 Hematocrit (Bld) [Volume fraction] 39.6 % [facility] Hemoglobin (Bld) [Mass/Vol] 13.7 g/dL [facility] No Panel Informationon 04-08 [facility] Rubella IGG immune statuson 04-08-2024 Rubella immune IgG 2.32 [facility] Syphilis Total(Unknown Syphi lis Status)on 04-08-2024 Syphilis Non-Reactive [facility] Type and screenon 04-08-2024 Abo/Rh(D) Positive [facility] HCG ( test) Ql (U)o n 03-27-2024 Interpretation and review of laboratory results Abnormal [facility] Preg Test, Ur Positive [facility] Urinalysis macro (dipstick) panel (U)on 03-27-2024 Bilirubin, UA Negative Negative - 4(70) +++ mg/dL [facility] Blood, UA Negative Negative - 50 Jimy/mcL [facility] Clarity, UA Clear [facility] Color, UA Yellow [facility] Glucose, UA Negative Negative - 2000(110) ++++ mg/dL [facility] Interpretation and review of laboratory results Normal [facility] Ketones, UA Negative Negative - 160(16) ++++ mg/dL [facility] Leukocytes, UA Negative Negative - 500+++ Mychal/mcL [facility] Nitrite, UA Negative Negative - Positive [facility] pH, UA 5.5 5 - 9 [facility] Protein, UA Negative Negative - 2000(20) ++++ mg/dL [facility] Spec Grav, UA 1.025 1 - 1.03 [facility] Urobilinogen, UA 0.2 0.2 - 12 mg/dL [facility] PROGESTERONEon 07-27-2022 Progesterone 26.9 ng/mL Normal [facility] Comment on above: Result Comment: Foll icular phase 0.1 - 0.9 Luteal phase 1.8 - 23.9 Ovulation phase 0.1 - 12.0 First trimester 11.0 - 44.3 Second trimester 25.4 - 83.3 Third trimester 58.7 - 214.0 Postmenopausal 0.0 - 0.1 Performed By: #### P ROGES #### [facility] [address] [place] [address] Dr. Ryan Francisco PREG QUANT HCGon 07-12-2022 HCG QUANT <1 Normal [facility] Comment on above: Performed By: #### P REGQNT #### [facility] [address] [place] [address] Dr. Ryan Francisco HCG RANGE SEE BELOW Normal [facility] Comment on above: Result Comment: 5-50 0.2-1 WEEK 50-500 1-2 WEEKS 100-5,000 2-3 WEEKS 500-10,000 3-4 WEEKS 1,000-50,000 4-5 WEEKS 10,000-100,000 5-6 WEEKS 15,000-200,000 6-8 WEEKS 10,000-100,000 2-3 MONTHS Performed By: #### P REGQNT #### [facility] [address] [place] [address] Dr. Ryan Francisco XR HYSTEROSALPINGO EXPon XR [...] by: CLEMENTINE DEWEY Date: 2022-07-12 12:34 Normal [facility] PROGESTERONEon 06-29-2022 Progesterone 4.6 ng/mL Normal [facility] Comment on above: Result Comment: Foll icular phase 0.1 - 0.9 Luteal phase 1.8 - 23.9 Ovulation phase 0.1 - 12.0 First trimester 11.0 - 44.3 Second trimester 25.4 - 83.3 Third trimester 58.7 - 214.0 Postmenopausal 0.0 - 0.1 Performed By: #### P BRETT #### [facility] [address] [place] [address] Dr. Ryan Francisco PROGESTERONEon 06-01-2022 Progesterone 18.9 ng/mL Normal [facility] Comment on above: Result Comment: Foll icular phase 0.1 - 0.9 Luteal phase 1.8 - 23.9 Ovulation phase 0.1 - 12.0 First trimester 11.0 - 44.3 Second trimester 25.4 - 83.3 Third trimester 58.7 - 214.0 Postmenopausal 0.0 - 0.1 Performed By: #### Johnathon WEST #### [facility] [address] [place] [address] Dr. Ryan Francisco US PELVIS AND TRANSVAGon [...] CLEMENTINE DEWEY Date: 2022-05-17 17:25 Normal [facility] PROGESTERONEon 04-29-2022 Progesterone 5.1 ng/mL Normal [facility] Comment on above: Result Comment: Foll icular phase 0.1 - 0.9 Luteal phase 1.8 - 23.9 Ovulation phase 0.1 - 12.0 First trimester 11.0 - 44.3 Second trimester 25.4 - 83.3 Third trimester 58.7 - 214.0 Postmenopausal 0.0 - 0.1 Performed By: #### P BRETT ####[facility] [address] [place], [place] [address]NvDr. Ryan Francisco ANTI-MULLERIAN HORMONEon Anti-Mullerian Hormone (AMH) 6.09 ng/mL Normal [facility] Comment on above: Result Comment: For assays employing antibodies, the possibility exists for interference by heterophile antibodies in the samples.1 1.Steffen Wilson Interferences in Immunoassays - still a threat. Clin. Chem. 2000; 46: 2688-5636. This test was developed and its performance characteristics determined by [employer]. It has not been cleared or approved by the Food and Drug Administration. Reference Range: Females 20 - 25y: 1.23 - 11.51 Median 4.70 AMH concentrations of >= 1.06 ng/mL is correlated with a better response to ovarian stimulation, produced more retrievable oocytes and higher odds of live according to Gleicher et al. Fertility and Sterility. 2010: 94:6057-2379. The current AMH test method correlates with [...] tumor. Performed By: #### A WEI #### [facility] [address] [place], [place] [address] Dr. Ryan Francisco FSHon 04-05-2022 FSH 3.6 mIU/mL Normal [facility] Comment on above: Result Comment: Adul t Female: Follicular phase 3.5 - 12.5 Ovulation phase 4.7 - 21.5 Luteal phase 1.7 - 7.7 Postmenopausal 25.8 - 134.8 Performed By: #### L [facility] #### [facility] [address] [address] [address] Ryan Francisco LUTEINIZING HORMONE (LH)on 0 04-05-2022 LH 6.8 mIU/mL Normal [facility] Comment on above: Result Comment: Adul t Female: Follicular phase 2.4 - 12.6 Ovulation phase 14.0 - 95.6 Luteal phase 1.0 - 11.4 Postmenopausal 7.7 - 58.5 Performed By: #### L [facility] ####[facility] [address] [place], [place] [address]LdDr. Ryan Francisco CBC AUTO DIFFon 04-04-2022 BASO # 0.0 103/ul Normal 0.0-0.1 [facility] Comment on above: Performed By: #### C BC #### [facility] [address] [address] [address] Ryan Francisco Basophils/100 WBC (Bld) 0.3 % Normal 0.2-2.0 [facility] Comment on above: Performed By: #### C BC #### [facility] [address] [address] [address] Ryan Francisco EO # 0.1 103/ul Normal 0.0-0.7 [facility] Comment on above: Performed By: #### C BC #### [facility] [id number] Ryan Francisco Eosinophils/100 WBC (Bld) 1.7 % Normal 0.9-7.0 [facility] Comment on above: Performed By: #### C BC #### [facility] [address] [address] [address] Ryan Francisco Erythrocyte distribution width (RBC) [Ratio] 12.7 % Normal 11.0-15.0 [facility] Comment on above: Performed By: #### C BC #### [facility] [address] [address] [address] Ryan Francisco Hematocrit (Bld) [Volume fraction] 39.7 % Normal 36.0-48.0 [facility] Comment on above: Performed By: #### C BC #### [facility] [address] [place] [address] Dr. Ryan Francisco Hemoglobin (Bld) [Mass/Vol] 13.4 g/dL Normal 12.0-16.0 [facility] Comment on above: Performed By: #### C BC #### [facility] [address] [place] [address] Dr. Ryan Francisco IG # 0.03 10e3/ul Normal 0.00-0.03 [facility] Comment on above: Performed By: #### C BC #### [facility] [address] [place] [address] Dr. Ryan Francisco IG % 0.5 % Normal 0.0-0.5 [facility] Comment on above: Performed By: #### C BC #### [facility] [address] [place] [address] Dr. Ryan Francisco LYMPH # 1.6 103/ul Normal 1.2-3.8 [facility] Comment on above: Performed By: #### C BC #### [facility] [address] [place] [address] Dr. Ryan Francisco Lymphocytes/100 WBC (Bld) 27.1 % Normal 20.5-60.0 [facility] Comment on above: Performed By: #### C BC #### [facility] [address] [place] [address] Dr. Ryan Francisco MANUAL DIFF REQ NO Normal [facility] Comment on above: Performed By: #### C BC #### [facility] [address] [place] [address] Dr. Ryan Francisco MCH (RBC) [Entitic mass] 29.6 pg Normal 26.7-34.0 [facility] Comment on above: Performed By: #### C BC #### [facility] [id number] Ryan Francisco MCHC (RBC) [Mass/Vol] 33.8 g/dL Normal 29.9-35.2 [facility] Comment on above: Performed By: #### C BC #### [facility] [id number] Ryan Francisco MCV (RBC) [Entitic vol] 87.6 fL Normal 81.0-99.0 [facility] Comment on above: Performed By: #### C BC #### [facility] [address] [address] [address] Ryan Francisco MONO # 0.4 103/ul Normal 0.3-0.8 [facility] Comment on above: Performed By: #### C BC #### [facility] [address] [place] [address] Dr. Ryan Francisco Monocytes/100 WBC (Bld) 6.7 % Normal 1.7-12.0 [facility] Comment on above: Performed By: #### C BC #### [facility] [address] [place] [address] Dr. Ryan Francisco NEUT # 3.7 103/ul Normal 1.4-6.5 [facility] Comment on above: Performed By: #### C BC #### [facility] [address] [place] [address] Dr. Ryan Francisco Neutrophils/100 WBC (Bld) 63.7 % Normal 43.0-75.0 [facility] Comment on above: Performed By: #### C BC #### [facility] [address] [place], [place] [id number] Dr. Ryan Francisco Platelet mean volume (Bld) [Entitic vol] 9.9 fL Normal 9.5-13.5 [facility] Comment on above: Performed By: #### C BC #### [facility] [address] [place] [address] Dr. Ryan Francisco PLT 421 103/ul Normal 150-450 [facility] Comment on above: Performed By: #### C BC #### [facility] [address] [address] [address] Ryan Francisco RBC 4.53 106/ul Normal 4.20-5.40 [facility] Comment on above: Performed By: #### C BC #### [facility] [address] [place], [place] [address] Dr. Ryan Francisco WBC 5.8 103/ul Normal 4.0-11.0 [facility] Comment on above: Performed By: #### C BC #### [facility] [id number] Ryan Francisco FREE T4on 04-04-2022 Free T4 [Mass/Vol] 0.99 ng/dL Normal 0.76-1.46 [facility] Comment on above: Performed By: #### F T4 #### [facility] [id number] Ryan Francisco TSHon 04-04-2022 TSH 3.086 uIU/mL Normal 0.358-3.740 [facility] Comment on above: Performed By: #### T SH ####[facility] [address] [place], [place] [address]FeDr. Ryan Francisco US PELVIS AND TRANSVAGon US [...] by: LUCHO MIXON Date: 2022-04-04 16:38 Normal [facility] Auth for Release of Medical Recordson 12-20-2021 Auth for Release of Medical Records [id number]# 1.00CD:127 Normal [facility] Coding Summary.on 08-22-2021 Coding Summary. CD:[id number] Gh0bWw+PGhlYWQ+PE1FV ZRtD55adOOixT1DM1bYC Y4ESLXPVPBJKW6UIY1mk EF1PZdxZ2SlaeZj GstduKWfTR65OEc2SIE3 bRrmWNjzcB3nmXUqM3p2 OrJwAR22lD52WXyyWYYd PpR7KcBwzateaNEf T1gjJmNopDFuWoi+PHRh YmxlIHdpZHRoPScxMDAl CoDbjFdlXL8cDg4pUTDq LWNvbGxhcHNlOiBj u8lmUKNqFLxkMJ3pjWaz C7GpiSA8JSTur7y2Zr52 dHI+HBJvKCO4nHifONin f004JdKkp4jsBXU2 tVReXDxgSTE8F12be3W5 GXVmAXDeLWT8pSV5wS6c vYokzbmcM7ZwbNOpFqL1 NBN1iBDyvZ0maQgx xonehE1kJsi+J50KID9C QISIHZ9OJey6D9MpSjov dHI+IE92JQMxQY05rGHm hWKrp0xddYx9LvIh GAWcTLF5xBvvRCrmm9Vl JBBgZ73hlBBsv1E5LWLp wHkwmKYiVzTjgGA6yW1i LEfdowjnn6hxhuna Tesrc7sana15wB35D65r FVrwIIBuFSB6BRNzSAWn rNmxhl2ceE5cFh7+IDxj l9gkl9gwfXe0TlYi PHTllmDqdZoaQBA3y6Gu Hr74L1GadTmzu6PqOyh9 lo52aAUew8Q4uLH2RLad YYRduQ2lFFmeHjD7 IIMwWmGbxJ33mWHyINyi Ha9baRgrtPbwCP2uHEXy vzohDXYstN4bMSNdmWGv fOafRH9mKNUynijh d379WaNdOKS2PJChdWTy E9JioO8oQyXsUGSxWIAy K8EaeGJoIRchZ062CLsa YzT5GVYjcmOpT0Kl PXWfdLxlBfE0l9P6Rw3S o7ZzzsenOUQ4OHhmQHBw YaI5KtGbNdT4B0DxAck7 DVHjsMncVP5gF4Aa QEVlgtonctpepWH1TGOn DXSqpD22fFKbZMipUd2m r8C5r135VULcQBVvoF15 Ki6joXzpDCIrpAFS wO6jszeez8sblicsNyVr OCPxDSn4UCy3LWMyfOyf HpWaZEJ8YfK5EAY6zXVd nT8rdOuwzystjV9s Oyc+A76enX3yPOG8BVL2 eskgBEHazkJjDS76YK32 N0XkRieclMKbxOI+PGRp smBxcGvxGS2nXcBw c9rol0KrOBotG2MlMPSr MMgxZvp5NSOhIEQ5qKU5 sL2jLAItGYtnf2L9oAG7 P2UdzjHesk3oq4iz IOBwMXddZ36cmVMph9L1 FNVxwPU1ZBRgqWtlUgHh hC14Rcf+PMEnqHcug7Ty Vqcjq6hdf1qkyDp3 IjMwJSIgdmFsaWduPSJ0 m7QmVq64B78bCRikDWCg ETWwOJTmSSXooYwssx1k rT2cMp4+PGNvbCB3 uLX9uU7uYUWqNrX5XApb K120DjPzkSYsCvtfy7nn v0gocVw8EhJsNFGpjkCn qBwzTYN4j6YfNo77 Q45aVZorPMHhJCLiNOGi PDJddWubax5zoN8lHq9+ CV8wy7govb55zT89lMR+ VINqGYV2qLlpOQlv ZRKqnA5tXXonNjY5PFNx YkRcuD62hPBsAFhkVd9m rLiibDltEO2fQIAvchyx t742XdAeu0bpTQFx rGFbPImdZQE6O85nh4R8 QXJgBBGtKXP0hQS9tA7a bGlnbjogbGVmdDsgdmVy sJvrAXvyUVkoO201 IHRvcDsnPlBhdGllbnQg EmEvDKr6Q0YsPzr9BOGs cSgrCT8hkNQzPWctIw2f sQmzoHoqJS3rENBh nnvlg360KiUfh8iiTXWg jNNxFZomDMV3M23ra6O0 BBOqHZXvFAL0hCZ0eT1h bGlnbjogbGVmdDsg wjArsJfzTRohPBpoE405 IHRvcDsnPkJpcnRoIERh eHM3SM03YU69lPLqm9F0 tXC7G0ZnIUNufqtl ntabmCH9LCObGKWzyM91 Fj6bhZukXy5lJSLpKNG0 GXPdgRRuX8ElaM5aCzSj BTBrDLNkD2GtnNVn PEexG901IZxlHpC2IWEz dfBtC6MpKURcdHhvSaU1 s1U2Zu5ZO7J0BF32KI04 kBKxt1L6sTW6W4El LPQkcdtzjwrfkMH3CSVh DCZycE56Ig7aqVcwVd1z FSFwCCD2YJTdrLYeL5Jl qF7pCcAuYTPqXRJo X6VhwPMfVFciJ908KTlv ClU5FCBfohKsX8GgGQTq eOvfSkH2i0G0Zf2XBNl4 CB69QA02tHTki9L7 hGE7C6ToZAAmghvpucqx eSS9KVAuBZWypQ08Mf6v kWwtXf3tGNRfWLE5VIRr iMOoH6RepL5lMgAv SFJdKUYoY5CxkAToLRwp C050MGlpQrD3ORJgwhEi V2OpVOCspLqoMmC7b8Y9 Qd4DQOMmAH06WBU1 eKO6GS05TH83S9RpZggb dGFibGU+PHRhYmxlIHdp ZHRoPScxMDAlJyBzdHls XV4wNo6kHIQuWFDy wWdtgEReUpMsq6geURXy UHhmTY7boPgpK1XnaDU8 XEAqs1r9Jy01G50kG0Jx dXA+VHRwqDH4fNT4 jS7qNuUeFpL9DUwgZ891 MlJklEHjXmstt1tej6jl vXd4VyT3TTWsqgFrcNln IHC2m1JaRa78M98w IHdpZHRoPSIxNSUiIHZh dRpwyw7tkV2iQk7+PGNv dDT7lNG6rZ3nQdHiNtP7 TAqeO817UtLwcRZj Vrvyu7frh4qfuUn3LlJl MDRvxdWrnGvrDFS3k5Nw Ju26V0SdqXlyj1LdEcr1 gj48hWLod1J4iBH4 S6PcGWXsftltyTSevVuk CG9cBQIxalbzQVDynO5m RMZlM5e3HwDeCuI5PHox U2NxdgK2ZPEstHTc JJiyTHP0Z00lg9W8IGDq GMFjZHO7mFR2iD3suIlf bjogbGVmdDsgdmVydGlj RQraUHegY177JWSm tSuvIFFcdW9mMTVvnKIs pHkuUN9eGPTgwiafAodQ WEOyVRhXMTXSLD03BY66 aYZpo8Y4uET4L8Iq DJNojmrksrygyPS7GNSk KHCeeO02mKAvPQojIa6e i8C5i873AWMgZUUpmG29 Zx0fpJaxSGFnwIUX aS6wxouec9djtvcjZtLl TWMhFIg6VOn2FKWpkGwj RsXdHLR1OnZ4WED8jCFz iJ9gkOzkvnkbjP0s Oyc+BYKbTjtfROq7DYjn dGQ+YGDpMRE0zFcuERon NAFxdQ5pJKQkD5a6DrOa QeH2TBowR0CwQBUh vkhrEa87uJ4dZiPnZeR2 GJisF1CzkyY5MXHldWPy XKluUNE1T13uu5F6AOJt UKAwZLH4xZN6lN3b bGlnbjogbGVmdDsgdmVy lLviDWacPAbnS805EZPx uKxeAsLhERqfFPYbRD23 MV99aEGgq5O9rLK2 Q4UyWOYbrnplghwigKZ9 SPXmOKDjqE02vLUkDVfh Dd3zg9S1l356RLRfRLBv vA18Kj1xgHsgELEv iHDUaB8wljfvc6aqmurg PaPfYBJhEXz4RWr0VEHh rYjeUzKiLAP4MtH3UQX7 jKZiiV2ewNobuwwr hW3fAhv+AxPnGKvyXP94 TP21oXLmj3B4cJG8S8Mp PMCaybkqvbrfhOX6PGYd YWZlpI71tIVhNQuw Mw5wm6H8f263ANUqYDDe oC87Mj5rpMogGNMraDKU rO5iquaco3jfigoxDfSb OZXzFVr1MEq3BRSw xRlcAtOvYCY0BiT0HIA3 tXAojL0jaRbaslbrzD3g Oyc+I8I5bYD7iCBwyFcj dGQ+VQ94zj43N9Rd PpdhLpe8NFYhYYC2mZW9 qH6zYQOmYKxdm4X3oSK5 O1IbmrLqxu3cd4hiKHFo SRsdK54igMOpk9P8 QHQorIA2CWTtaAvlKtYi aI60Ccc+UIRerWbid9Sd Akbqe0dlj1iozJi8UqGm JSIgdmFsaWduPSJ0 l8EhEr63U71eREadLPGg KLJeKHIbBPCawSftvo2i kI1fMj5+HUBytWK1lGI7 vQ8oTrMdZzY7HIgf R590AvXxcBTiWunob1op u9zcoBc9HzMfYMZzlqHn nGkbZHX7k5MnWt62X7Pa lUwcf5QjMgs0uw92 cUHzt0K6bVE1B9LaXXCd sucuuPBudXxpAS4wHKVm gkmmRXIcpS2qEFXqT0p0 FuGqCaV7XLzpX0Ij soM2KDScuLCkXJOwxMPL hT7fcxyey9ifukixDxOe LPBeZVu3UNs5NWMccWif UpBwDMH3FaY2VME8 bIIvlL7taZhkcdnniN2s Oyc+XMo9c3cscNIqUR9x sBJ4UW13HY19bMFuu8D0 fRC0U2SvNMBoemyt kmdztHU2VRYsFHXtjW38 Mq9crRjmRq9lYWEzXVO6 TXExkCJaJ2TlwU7fVcCg TSIbXAYxG9EtbINc SXqtB452JFoaAdM0SOPi tiGjR4OaKKPluLkvVgE7 k0F2Bc1YVV35ZT46YT36 gIYdf1R7oTF1C5Ou VNWkqhefeefisJB0FBDo SGVriT30Ex4dwYdqAz6o ETRaSVJ4HCMgwAGvI9Qm xN9tCuQcUCKdIINo C4JtnYHcHFqqC098AOjw LrE4XHNsooNzX0UhQJCi wKdcCjR4x8K8Em0DJt37 IU79QJ57xCCna1U6 tTA8W4JnKYKzkdccgucp jOO8NVQwHNUoxY24Kd9x mQeiJr1jVCGwHRG0EBDu sOUuE2RvuF4xSxXt YKNfHJKkQ4KvbXHtTRiz H188KOfjQcS4TDNsbzCf H3BgHKFlnCetLzE1c5S5 Zv7AHErsgez3Z6Ej PjwvdHI+EK16TDIwVZ99 mRRflVEwq5jtfFf1BzWr ISAvYFJ3cErgCTtzi7Da FOJcK83dtDGdi0O1 IGNv (more content not included)... Normal [facility] Coding Summary. CD:[id number] Gh0bWw+PGhlYWQ+PE1FV YQyV94qmQVumN5SA4eVM R2ZRQPQKGVISQ5BHT5hl SF7NWekI3XgmmJb ZjrpvLFmLR42YYl5FJP1 bLyoBWmplU9vpPVhG5q0 ZdUsRK75oL79UMhkBFJh JgL1OkJzvpyyhMKm D0riCrMhaIUnFxa+PHRh YmxlIHdpZHRoPScxMDAl HyMtkSeyDJ3mRu4mHWDs LWNvbGxhcHNlOiBj g8zzDNLxWKnuXJ8skDjn L4UznSK3QZWnm1y9Sf00 dHI+ABRaIHW0rGmsYVtx z505IjSab0pqGWT3 aNBhDIouTIQ6I09ot6O6 KUIzKKDiSNC1lQZ3qE1v aTyjuvrdP3EchQRrAaO6 AVV1lDXeeA5ucKqg swxfbL5lVjr+P19NAI5Y RPFXTO6RLzl6M9VfZvug dHI+RG75UKRvZA96fVSj qDGit2qmsVo9ScRq JZPoSGX3wSgzYZdwn6Yn YCUzX06fjMRnj9T9TAMx kHxzuUNtCsPckYS6sW3m LOsokyhmq1nmnqju Vrihf7fesm11nT40I89k YAfxNMLpNAL5BUQoHHQz lXyufn2msP5oXm6+IDxj s3idz9zlwQa6WsDb DCJkedEtjNdnSHX1q2Hg Pc89V2XdxMpjp2DhXta4 rv71lOMsz5F2nHE8UBvo AERqkV2cHZjkOmK8 UMByNqJvxU44iEHdUVjw Os9jrXrogFehIT1zVKCg nqnzCZYxiS3aGYVnbOBl xIgbOT1sWIMrtzky w318GnCnHFW7VRUdyPSl B7YilP0wZdDgZFXkBWMj N1YrsSZfIIcoI442PFea FoR0KQWilvDxN8Le KLDijOikJnD1h0A0Gf1C b1NdkgqeCTA5IGygVTKo PzG8RfEsVhY2V0LlWfo4 TGGehKseKK6pN5Zh QGWcqhbelqfbfGM5MGDb XNFspG22wMCbRFalUh0i y9C0v858MZIbPTGblU52 St4rcDibOFWziZTY sG4cxhjmq2ssuuykCrVv QNZcTPn8FHd4BGUolXsa DrZaLEK9WgA2VUD2lEPs wW2nwUoizbacfL6n Oyc+K44ybA2xGRN0GGQ6 uzrmNURkuuKeLI87HP48 Z1NuIfhvfXIgpBS+PGRp nmDjfGauKB6mNeKp s3lxt5UhMYwyT0AoFWBt PTwqFuv4AMHfYRW4eYW5 bL5gKRQoVFnyb5M2uXR1 V9VuqxOgxv2oa6ws XKAsZUriL90csLRxm1P8 AXDcyFM2ILSlaFnsAhUq pE35Zmp+RAGsjMhgf1By Vreop9uly1tvvHc9 IjMwJSIgdmFsaWduPSJ0 f6PaVe70O61iHFfqUUCk KVZcYMHyTRUcjDvfqq6u wK2oBg5+PGNvbCB3 fWJ0jN3wSZOfMbI6MMby H997ZsGvcFTsWosxk7ut h4wjgJf8ZcLkQRMmyiAi rLnzYOW6r6DqJk75 U95lSWnyMFPvUINjJDFd CNXtpAdeja8fxO2iIn9+ WC1yz8zrey05bM16vYR+ HMImRPK5eHamOCin FEAeeM2zCXizRyO6RGEd IoJslQ17qODbONogAg8s eOdmlUvsAT0iERTyppsu j547IwRjo7yhVXFr wSHuPXfgGAJ3M64fm3U8 DCMfYUGzSJV0aZD7wT3x bGlnbjogbGVmdDsgdmVy yTlvQHwaYGgnT995 IHRvcDsnPlBhdGllbnQg PrFlMCq2B0PbOxd0IOYa pAbtWW7wbOPtOUneOo8b rTswkRsvBJ3gJEDe etena508XvYje9efAWVn iOMhGAejJLW5X55ov3I3 JAHwZCJdDLH6aTK3gA9s bGlnbjogbGVmdDsg mmYvwKlwYDjnRBavV398 IHRvcDsnPkJpcnRoIERh rJM6QE50BP98iLTgk9R8 jSK8Y8HjOEAcnrdb tgzdiTT2IFJrWKCizV99 Oj1phItqGx6gFPFiJJV3 QAPssKTsG7IduG9hAbGm LQKhRLFjL7SjgIDe MFcqQ177MPuqKfW1WOCn rvIjJ0IhCCVckNirUcT1 j1Z2Ht5GW6S7AA82VV74 bWAyl4I0zHN5O7Jl NTHaiwmqzfsixCF3ULHn BNIflC74Bi5ctQrsVo6e WGNhMAE6QRZkuDWnY6Uf vK6oMjDxEDWqFPFx N3ZobOAdRQwcY472NBpj JlD3GXPawyOcS0XwSGXs uJdmWsD8f8A1Iv4RHUa3 TH22LN33hZBhh9A6 eIZ2S6LdDQNvowovcpyx qIR5BJThSXZraP82Hn8y vSlzJf0bECVtEYD4RKSb eMXvI4QefA0dMaPg PELdUNEuM9QkgZUzMYmr C442GAzhWmS5ITGaahBh L4RuXLQzjJvoXnE9y9I7 Aq9NJDZlAT82XBF0 rYG2HF99YW44E8EaAqck dGFibGU+PHRhYmxlIHdp ZHRoPScxMDAlJyBzdHls EB2vWy0oALCmVHIh uZshoPShUsHje8liPZAx ZDfrLK5dfGofM1ZrnEH2 QZLlg3s8Zt15P82tP1Cp dXA+VSQkuYG2mKH9 eT8dZmDzCwL6SKqoU526 XqDqtSVlVkizl5chf8aj fSk3WbR8TSSmcgYboSpi HXL6r7SnDn36Q58z IHdpZHRoPSIxNSUiIHZh wTtban5gyW4rMy0+PGNv jKS2jWR9nL7sRcVzAfK7 VXuvP030YiUesMJk Lwpfb0hyb5asdDe8HuTz TKDxzlFemZtkHQR6m4Xv Ge27N9AacWqdi5FrOme9 rn14rQGzs7L4kAD2 U8ScHNMxplrguSRsgPrr QU9rQKRnlydpBOWssJ2s OVUsN4p4FeSlEaR6NVgp C6ZtxjN8OJYyvRTq JAqlNQQ1Z41of6Y3OCPt UYJaSDC6jTB9xQ2bpDxr bjogbGVmdDsgdmVydGlj XAkeUFjwK941ZKUr zLnnMPPzkQ0nZERdgVFp sUiqAC7yHFEsqrapKtwG XQCkYTpYVUZLZI76QO15 tHJje2D7nSK2C6Fy OHAilqtqfrlznBK7CJHq WMMuoN68mIUfTWcwQt9h a7C1t002MPTcDYBtbI49 Ql0xwHnrLYPukCON xE3iqyktb5tvfzaeDzLy QGRuRZi5VDr3EFNqwSzz OmVdFZE5IzZ9XSF4jNKc gZ7juLssmwbagD9i Oyc+DTIzFvvbLRr8VCae dGQ+TDLhPYR4ySioTQms JJHwnG7bBTYyJ8i8LkCt SzB5IWauY3EfVKSk ekqgJv79hF3pZtQgUkK8 HZyeQ4KmywQ7GSHznZLc MNqzAJE1Z77wz7Y0XJWg QFLeOZL9xLM4bB2l bGlnbjogbGVmdDsgdmVy aNttDWlvQCsgC399VOCq yEufReXvEOtoASDlEQ82 XT16gSZyo8V8sSM4 T5KfWRSsqjstdnvgeVD9 OGHbFIGelL94pKQkSZip Ki5ji6K5t626HMDyLTMv lY01Xi1qdRckHAXu nYKWbW6qwgmbf3opebhi FwBxQQAfAYj9YCa2MIYc qMkvKaUySFQ5FgO2BJR7 lFDbdM9wuLckelam eW6kOkt+LeJsPGwsMI49 HU88qKNmk4Z1fEP8G3Ds DVOyjyklyqgylYY9IUDj YKDwzP78mCMzEQhx Ya4dr4J9q424RMLrJLCo uJ09Gs1sxLelLEUrzIJE nF3cmmoyd5vbzislUlFm RBJoHPd0BDy8WOMs uWnsKnXgAYL9XmS8WMP3 oWAzzS6vaNcgsxmafO5r Oyc+GLIkSWHgv7Qcy0Rt WS76BD78V4SjQdar dGFibGU+PHRhYmxlIHdp ZHRoPScxMDAlJyBzdHls ZG3yAd1eGURxIICueSnu kJGuWoCxq0ilBIAo NDhaPF3cbBpxM2YheDK7 VPTqg2p8Ud23G48cR0Ct dXA+TEXdkJQ9rMT4iU6e GrLpPnC1HZwiG158 ZtUfyJDxEofcc2fnq3pb oJf6WzZjEJVgyhPgjHxl VBU9b7MlOg33A01zMMas ZHRoPSIyMCUiIHZh sOmgzb5qhM8kEc7+PGNv fLN3kBN9xY3mZkKfTzE9 XFkxW424DuWvkCXnQbog I77nI8EquFV+PHRy Xws4YOTyfRynNS5znDOm NOykFk4uLDI7SbInRlWr KPguQ5QbAWJikkcmggyw xTA0HANvJSJspQ89 Wn3hjMzkDc3yCUWjOMG5 FMDjqBBaZ0XzhF0nYrXp ECXvIHLcY6ZfsYVkVNor J930EGfkQiG1KXDg knVaP2RrAABmfNnpYkR9 i0S8Pn0OrCfttCDoAJ1a CwRiUEm3R4QqPct9FWHh dDlnEO3mjQIkHQlw Xp6onUarjWraDJ8vEWOt qhtib173UgLbm9vtYGNc iHVcFDitLPG0V29bz7I9 LTGfQXVkCRX0ySC3 kX2icQkdmcrjcPFcrUeg elTooPhnRNklNPzwQ478 NDDxnQqzMqDCIup1H7Ky Rkx3JXCbzPsmVH7p dIFjNNsjIv1rwMdbvSwn AJ3jXMCopakjm462RyLw d8zuGGOeqTXrYJpsYXZ1 T38pb7Y6ZYBjWZXh CMW8kQL5fB1uqEbailkj bGVmdDsgdmVydGljYWwt OMmpO532FGVstQgiGy9P Bxg3G1EcDxu6HRYt pRoaTJ1pqRAuCGpdLr4g sMaduSgmYV1fXGGffqvk g749FbKud4ueGZGwrCKp TKwhCYA5G97jo2K5 LXWzHEVuUGH7xEI1eQ7m bGlnbjogbGVmdDsgdmVy lIqbSExdSOatQ744RMMv cDsnPlBheWVyOjwv dGQ+HA93gh45O2XcQvln Uyd3QSFgUXT5hSP1uB1r KYAtJPbtq4C2yTJ9F5Cb poIjmn8fh2rdCHEl [employer] (more content not included)... Normal [facility] PAP [id number] 08-15-2021 Cytology report Cyto stain Doc (Cvx/Vag) Note Invalid Interpretation Code [facility] Comment on above: Result Comment: TEST S RESULT FLAG UNITS REF RANGE LAB Clinician Provided Cytology Information Source.............[employer] No. of containers..01 ThinPrep Vial DIAGNOSIS: 01 NEGATIVE FOR INTRAEPITHELIAL LESION OR MALIGNANCY. Specimen adequacy: 01 Satisfactory for evaluation. No endocervical component is identified. Performed by: Byron Engle Director Export (ASCP) . 01 Note: Note 01 The [...] <-Panic Low,>-Panic High,A-Abnormal,AA-Critical Abnormal Performed at: [address] [place] [address] Mar Rivera MD, Performed By: #### 1 [id number] #### [facility] [address] [place] [address] HPV 16+18+31+33+35+39+45 +51+52+56+58+59+66+6 8 DNA Probe+sig amp Ql (Cvx) Negative Invalid Interpretation Code Negative [facility] Comment on above: Result Comment: This nucleic acid amplification test detects fourteen high-risk HPV types (16,18,31,33,35,39,45,51,52,56,58,59,66,68) without differentiation. Performed at: [facility] [employer] [id number] MD Nicole Manuel Performed at: =G [address] [id number] MD Nicole Manuel Performed By: #### 1 [id number] #### [facility] [address] [place] [address] Insulin Lvlon 08-11-2021 Insulin Qn 24.3 u[IU]/mL Invalid Interpretation Code 2.6-24.9 [facility] Comment on above: Result Comment: Perf ormed at: [facility] [address] [id number] PhD Archie Jha Performed By: #### 1 [id number] #### [facility] [address] [place] [address] Consent for Treatmenton 07-29 Consent for Treatment [id number] #1.00CD:127 Normal [facility] Glu Fastingon 08-10-2021 Glucose [Mass/Vol] 95 mg/dL Normal 55-99 [facility] Comment on above: Performed By: #### 1 [id number] #### [facility] [address] [place] [address] Physician Orderon 08-10-2021 Physician Order [id number] 2#1.00CD:127 Normal [facility] PAP [id number] 08-09-2021 Collection Technique BRUSH-SPATULA Normal [facility] Comment on above: Performed By: #### 1 [id number] #### [facility] [address] [place] [address] Gynecological Body Site ENDOCERVIX Normal [facility] Comment on above: Performed By: #### 1 [id number] #### [facility] [address] [place] [address] Physician Orderon 08-09-2021 Physician Order [id number] #1.00CD:127 Normal [facility] Gynecology Office/Clinic Not pratik 02-17-2019 Gynecology [...] Family History Family history is negative Normal [facility] Comment on above: Result Comment: Elec [...] Family History Family history is negative Normal [facility] Comment on above: Result Comment: Elec tronically Signed By: Shamika ISAACS, Kaley Wilson\.david\Date and Time Signed: 02/17/19 12:09 EDT Vital Signs Date Time Vital Sign Value Performing Clinician Facility 09-08-2024 08:28-0500 Body mass index (BMI) [Ratio] 35.56 kg/m2 ZANY OX Work Phone: [facility] [employer] 09-08-2024 08:28-0500 Body weight 88.18 kg ZANY OX Work Phone: [facility] 09-08-2024 08:28-0500 Diastolic blood pressure 90 mm[Hg] ZANY OX Work Phone: [facility] 09-08-2024 08:28-0500 Systolic blood pressure 132 mm[Hg] Immanuel Yobani DO Work Phone: [facility] 08-27-2024 11:45-0500 Body mass index (BMI) [Ratio] 35.08 kg/m2 Immanuel Yobani DO Work Phone: [facility] 08-27-2024 11:45-0500 Body weight 87 kg Immanuel Yobani DO Work Phone: [facility] 08-27-2024 11:45-0500 Diastolic blood pressure 82 mm[Hg] Immanuel Yobani DO Work Phone: [facility] 08-27-2024 11:45-0500 Systolic blood pressure 122 mm[Hg] Immanuel Yobani DO Work Phone: [facility] 08-12-2024 11:08-0500 Body mass index (BMI) [Ratio] 34.93 kg/m2 Immanuel Yobani DO Work Phone: [facility] 08-12-2024 11:08-0500 Body weight 86.64 kg Immanuel Yobani DO Work Phone: [facility] 08-12-2024 11:08-0500 Diastolic blood pressure 80 mm[Hg] Immanuel Yobani DO Work Phone: [facility] 08-12-2024 11:08-0500 Systolic blood pressure 120 mm[Hg] Immanuel Yobani DO Work Phone: [facility] 07-20-2024 11:00-0500 Body mass index (BMI) [Ratio] 34.39 kg/m2 Immanuel Yobani DO Work Phone: [facility] 07-20-2024 11:00-0500 Body weight 85.28 kg Immanuel Yobani DO Work Phone: [facility] 07-20-2024 11:00-0500 Diastolic blood pressure 76 mm[Hg] Immanuel Yobani DO Work Phone: [facility] 07-20-2024 11:00-0500 Systolic blood pressure 122 mm[Hg] Immanuel Yobani DO Work Phone: [facility] 06-22-2024 14:31-0500 Body mass index (BMI) [Ratio] 34.2 kg/m2 Immanuel Yobani DO Work Phone: [facility] 06-22-2024 14:31-0500 Body weight 84.82 kg Immanuel Yobani DO Work Phone: [facility] 06-22-2024 14:31-0500 Diastolic blood pressure 78 mm[Hg] Immanuel Yobani DO Work Phone: [facility] 06-22-2024 14:31-0500 Systolic blood pressure 124 mm[Hg] Immanuel Yobani DO Work Phone: [facility] 06-15-2024 10:27-0500 Body weight 84.82 kg Cele Rodriguez MD Work Phone: [facility] 06-15-2024 10:27-0500 Diastolic blood pressure 88 mm[Hg] Cele Rodriguez MD Work Phone: [facility] 06-15-2024 10:27-0500 Heart rate 99 /min Cele Rodriguez MD Work Phone: [facility] 06-15-2024 10:27-0500 Respiratory rate 18 /min Cele Rodriguez MD Work Phone: [facility] 06-15-2024 10:27-0500 Systolic blood pressure 137 mm[Hg] Cele Rodriguez MD Work Phone: [facility] 05-25-2024 11:46-0400 Body mass index (BMI) [Ratio] 33.84 kg/m2 Immanuel Yobani DO Work Phone: [facility] 05-25-2024 11:46-0400 Body weight 83.92 kg Immanuel Yobani DO Work Phone: [facility] 05-25-2024 11:46-0400 Diastolic blood pressure 74 mm[Hg] Immanuel Yobani DO Work Phone: [facility] 05-25-2024 11:46-0400 Systolic blood pressure 118 mm[Hg] Immanuel Yobani DO Work Phone: [facility] 04-27-2024 10:35-0400 Body mass index (BMI) [Ratio] 33.75 kg/m2 Immanuel Yobani DO Work Phone: [facility] 04-27-2024 10:35-0400 Body weight 83.69 kg Immanuel Yobani DO Work Phone: [facility] 04-27-2024 10:35-0400 Diastolic blood pressure 76 mm[Hg] Immanuel Yobani DO Work Phone: [facility] 04-27-2024 10:35-0400 Systolic blood pressure 122 mm[Hg] Immanuel Yobani DO Work Phone: [facility] 03-27-2024 10:27-0400 Body mass index (BMI) [Ratio] 34.53 kg/m2 [facility] Nurse [facility] 03-27-2024 10:27-0400 Body weight 85.64 kg [facility] Nurse [facility] 03-27-2024 10:27-0400 Diastolic blood pressure 70 mm[Hg] [facility] Nurse [facility] 03-27-2024 10:27-0400 Systolic blood pressure 120 mm[Hg] [facility] Nurse [facility] 01-02-2024 09:15-0400 Body height 157.48 cm [facility] 01-02-2024 09:15-0400 Body mass index (BMI) [Ratio] 33.9 kg/m2 [facility] 01-02-2024 09:15-0400 Body temperature 100.2 [degF] [facility] 01-02-2024 09:15-0400 Body weight 84.08 kg [facility] 01-02-2024 09:15-0400 Heart rate 115 /min [facility] 01-02-2024 09:15-0400 Respiratory rate 18 /min [facility] 01-02-2024 09:15-0400 SaO2% (BldA) [Mass fraction] 99 % [facility] Encounters Encounter Date Encounter Type Care [...] Result Encounter Immanuel Yobani DO Work Phone: [facility] External Department Unsolicited Start: 07-20-2024 End: 07-20-2024 Bamboo flowsheet Immanuel Yobani DO Work Phone: [facility] Start: 07-20-2024 End: 07-20-2024 Bamboo flowsheet Immanuel Yobani DO Work Phone: [facility] Start: 07-20-2024 End: 07-20-2024 flow sheet Immanuel Yobani DO Work Phone: [facility] Comment on above: [...] Bamboo flowsheet Immanuel Yobani DO Work Phone: [facility] Start: 06-22-2024 End: 06-22-2024 Bamboo flowsheet Immanuel Yobani DO Work Phone: [facility] Start: 06-22-2024 End: 06-22-2024 flow sheet Immanuel Yobani DO Work Phone: [facility] Comment on above: Second trimester pre gnancy; 22 weeks gestation of ; Personal history of cardiac murmur Start: 06-22-2024 End: 06-22-2024 ambulatory IMMANUEL YOBANI Not Available Start: 06-15-2024 End: 06-15-2024 Office consultation new/estab patient 60 min Cele Rodriguez MD Work Phone: [facility] Comment on above: 21 weeks gestation o f (Primary Dx); Chronic hypertension affecting ; In vitro fertilization Start: 06-15-2024 End: 06-15-2024 ambulatory CELE RODRIGUEZ [facility] Start: 05-28-2024 End: 05-30-2024 Clinisync Result Encounter Immanuel Yobani DO Work Phone: [facility] External Department Unsolicited Start: 05-28-2024 End: 05-30-2024 Clinisync Result Encounter Immanuel Yobani DO Work Phone: [facility] External Department Unsolicited Start: 05-27-2024 End: 05-27-2024 Chart abstracting Cele Rodriguez MD Work Phone: [facility] Start: 05-25-2024 End: 05-25-2024 Bamboo flowsheet [...] Not Available Start: 01-02-2024 End: 01-02-2024 ambulatory [facility] Work Phone: Start: 01-02-2024 End: 01-02-2024 Patient encounter procedure [facility] Work Phone: Start: [...] malign ant neoplasm of cervix Pap Smear [facility] Start: 06-15-2025 Tobacco Screening Tobacco Screening [facility] Start: 09-22-2024 End: 09-22-2024 Patient encounter procedure 09/22/2024 9:20 AM EST Routine [facility] [address] [place] [address] Immanuel Hilton, DO [address] [place] [address] [facility] Start: 09-08-2024 End: 09-08-2025 Alanine aminotransferase [Enzymatic activity/volume] in Serum or Plasma ALT Lab Routine induced hypertension, antepartum Expected: 09/08/2024 (Approximate), Expires: 09/08/2025 [facility] Healthcare Comment on above: Expected: 09/08/2024 (Approximate), Expires: 09/08/2025 Start: 09-08-2024 End: 09-08-2025 Aspartate aminotransferase [Enzymatic activity/volume] in Serum or Plasma AST Lab Routine induced hypertension, antepartum Expected: 09/08/2024 (Approximate), Expires: 09/08/2025 [facility] Comment on above: Expected: 09/08/2024 (Approximate), Expires: 09/08/2025 Start: 09-08-2024 End: 09-08-2025 CBC W Auto Differential panel - Blood CBC and differential Lab Routine induced hypertension, antepartum Expected: 09/08/2024 (Approximate), Expires: 09/08/2025 [facility] Comment on above: Expected: 09/08/2024 (Approximate), Expires: 09/08/2025 Start: 09-08-2024 End: 09-08-2025 Creatinine [Mass/volume] in Serum or Plasma Creatinine Lab Routine induced hypertension, antepartum Expected: 09/08/2024 (Approximate), Expires: 09/08/2025 [facility] Work Phone: Comment on above: Expected: 09/08/2024 (Approximate), Expires: 09/08/2025 Start: 09-08-2024 End: 09-08-2025 Lactate dehydrogenase [Enzymatic activity/volume] in Serum or Plasma by Lactate to pyruvate reaction Lactate dehydrogenase Lab Routine induced hypertension, antepartum Expected: 09/08/2024, Expires: 09/08/2025 [facility] Comment on above: Expected: 09/08/2024 , Expires: 09/08/2025 Start: 09-08-2024 End: 09-08-2025 Protein, urine, 24 hour Protein, urine, 24 hour Lab Routine induced hypertension, antepartum Expected: 09/08/2024 (Approximate), Expires: 09/08/2025 [facility] Comment on above: Expected: 09/08/2024 (Approximate), Expires: [...] AM EST Routine [facility] [address] [place] [id number] Immanuel Hilton, DO [address] [place], [place] [id number] [facility] Start: 08-27-2024 End: 08-27-2024 Professional / ancillary services management 08/27/2024 11:00 AM EST Ancillary Procedure [facility] [address] [place] [phone] [facility] Start: 08-12-2024 End: 08-12-2025 [...] mellitus screening Expected: 07/20/2024 (Approximate), Expires: 07/20/2025 [facility] Healthcare Comment on above: Expected: 07/20/2024 (Approximate), Expires: 07/20/2025 Start: 07-20-2024 End: 07-20-2025 US for US OB SCAN FOR GROWTH Imaging Routine PCOS (polycystic ovarian syndrome) resulting from in vitro fertilization, antepartum Expected: 07/20/2024 (Approximate), Expires: 07/20/2025 [facility] Healthcare Comment on above: Expected: 07/20/2024 (Approximate), Expires: 07/20/2025 Start: 07-20-2024 End: 07-20-2024 Patient encounter procedure [facility] Comment on above: 26 weeks gestation o f ; Diabetes mellitus screening Start: 06-22-2024 End: 06-22-2025 ECG 12 lead ECG 12 lead ECG Routine Personal history of cardiac murmur Expected: 06/22/2024 (Approximate), Expires: 06/22/2025 [facility] Healthcare Work Phone: Comment on above: Expected: 06/22/2024 (Approximate), Expires: 06/22/2025 Start: 06-22-2024 End: 06-22-2024 Patient encounter procedure [facility] Comment on above: Arrived Start: 06-15-2024 End: 06-15-2024 Patient encounter procedure [facility] Start: 05-25-2024 End: 11-23-2024 Alpha fetoprotein, maternal [...] Procedure [facility] [address] [place] [id number] [facility] Start: 04-27-2024 End: 04-27-2025 US Pelvis transvaginal US OB transvaginal Imaging Routine Encounter for screening for cervical length Expected: 04/27/2024 (Approximate), Expires: 04/27/2025 [facility] Work Phone: Comment on above: Expected: 04/27/2024 (Approximate), Expires: 04/27/2025 Start: 04-27-2024 End: 04-27-2024 Patient encounter procedure 04/27/2024 10:20 AM EDT Routine [facility] [address] [phone] Immanuel Hilton, DO [address] [place] [address] [facility] Start: 03-29-2024 COVID-19 Vaccine ( season) COVID-19 Vaccine ( season) [facility] Start: 03-29-2024 Influenza vaccination [facility] Start: 03-27-2024 End: 03-27-2025 ABO/Rh ABO/Rh Lab Routine Missed menses Expected: 03/27/2024 (Approximate), Expires: 03/27/2025 [facility] Comment on above: Expected: 03/27/2024 (Approximate), Expires: 03/27/2025 Start: 03-27-2024 End: 03-27-2025 Blood type and Indirect antibody screen panel - Blood Type and screen Lab Routine Missed menses Expected: 03/27/2024 (Approximate), Expires: 03/27/2025 [facility] Healthcare Work Phone: Comment on above: Expected: 03/27/2024 (Approximate), Expires: 03/27/2025 Start: 03-27-2024 End: 03-27-2025 US Pelvis transvaginal US OB transvaginal Imaging Routine Missed menses Expected: 03/27/2024 (Approximate), Expires: 03/27/2025 [facility] Comment on above: Expected: 03/27/2024 (Approximate), Expires: 03/27/2025 Start: 2020 Screening for malign ant neoplasm of cervix Pap Smear [facility] Start: 2018 DTaP,Tdap and Td Vac cines (1 - Tdap) DTaP,Tdap and Td Vaccines (1 - Tdap) [facility] Start: 2017 Adult BMI Screening Adult BMI Screen ing [facility] Start: 2011 Depression Screening Depression Scre ening [facility] Start: 2011 Tobacco Screening Tobacco Screening [facility] Start: 1999 Screening for Chlamy leoncio trachomatis Chlamydia Screening [facility] Bacteria identified in Urine by Culture Urine culture Microbiology Routine Missed menses Ordered: 03/27/2024 [facility] Comment on above: Ordered: 03/27/2024 CBC W Auto Different ial panel - Blood CBC and differential Lab Routine Missed menses Ordered: 03/27/2024 [facility] Comment on above: Ordered: 03/27/2024 CHLAMYDIA TRACHOMATI S (GENITO/STI) CHLAMYDIA TRACHOMATIS (GENITO/STI) Lab Routine STD exposure Ordered: 05/25/2024 [facility] Comment on above: Ordered: 05/25/2024 Cytology Cervical or vaginal smear or scraping study Pap Smear Pathology and Cytology Routine Well woman exam with routine gynecological exam Ordered: 05/25/2024 [facility] Work Phone: Comment on above: Ordered: 05/25/2024 Hemoglobin A1c/Hemoglobin.total in Blood Hemoglobin A1c Lab Routine Missed menses Ordered: 03/27/2024 [facility] Comment on above: Ordered: 03/27/2024 Hepatitis B virus love rface Ag [Presence] in Serum or Plasma by Immunoassay Hepatitis B surface antigen Lab Routine Missed menses Ordered: 03/27/2024 [facility] Comment on above: Ordered: 03/27/2024 Hepatitis C virus Ab [Presence] in Serum or Plasma by Immunoassay Hepatitis C antibody Lab Routine Missed menses Ordered: 03/27/2024 [facility] Comment on above: Ordered: 03/27/2024 HIV-1/HIV-2 antigen/antibody combination immunoassay HIV-1 and HIV-2 antibodies Lab Routine Missed menses Ordered: 03/27/2024 [facility] Comment on above: Ordered: 03/27/2024 Neisseria gonorrhoea e DNA [Presence] in Unspecified specimen by BUCK with probe detection Neisseria gonorrhea DNA probe, direct Lab Routine STD exposure Ordered: 05/25/2024 [facility] Comment on above: Ordered: 05/25/2024 Reagin Ab [Presence] in Serum by RPR RPR Lab Routine Missed menses Ordered: 03/27/2024 [facility] Comment on above: Ordered: 03/27/2024 Rubella antibody, IgG Rubella an tibody, IgG Lab Routine Missed menses Ordered: 03/27/2024 [facility] Comment on above: Ordered: 03/27/2024 SURESWAB(R) ADVANCED VAGINITIS PLUS, TMA SURESWAB(R) ADVANCED VAGINITIS PLUS, TMA Pathology and Cytology Routine Vaginal discharge Ordered: 05/25/2024 [facility] Comment on above: Ordered: 05/25/2024 Payers Date Payer Category Payer Commercial Managed C are - PPO [employer] [id number] 2023 [facility] er [id number] 2023 Unknown [id number] 2021 Private Health Insurance [id number] 2021 Unknown [id number] [id number]. [id number] 2021 Unknown [id number] 1999 Unknown [id number] 2.16.840.1.924898.3.579.2. 593 1999 Unknown [id number] 2.16.840.1.817604.3.579.2. 593 1999 Unknown [id number] 2.16.840.1.553329.3.579.2. 593 1999 Unknown [id number] 2.16.840.1.191636.3.579.2. 593 1999 Unknown [id number] 2.16.840.1.994821.3.579.2. 593 1999 Unknown [id number] 2.16.840.1.819396.3.579.2. 593 1999 Unknown [id number] 2.16.840.1.153891.3.579.2. 593 1999 Unknown [id number] 2.16.840.1.399714.3.579.2. 1286 1999 Unknown [id number] 2.16.840.1.219406.3.579.2. 1286 1999 Unknown [id number] 2.16.840.1.903738.3.579.2. 1259 1999 Unknown [id number] 2.16.840.1.905313.3.579.2. 1259 1999 Unknown [id number] 2.16.840.1.331756.3.579.2. 1259 1999 Unknown [id number] 2.16.840.1.491327.3.579.2. 1259 1999 Unknown [id number] 2.16.840.1.466486.3.579.2. 125 1999 Unknown [id number] 2.16.840.1.039801.3.579.2. 1259 1999 Unknown [id number] 2.16.840.1.848052.3.579.2. 1258 1999 Unknown [id number] 2.16.840.1.882742.3.579.2. 1259 1999 Unknown [id number] 2.16.840.1.165666.3.579.2. 1258 1999 Unknown [id number] 2.16.840.1.773346.3.579.2. 1258 1999 Unknown [id number] 2.16.840.1.261561.3.579.2. 1259 1959 Private Health Insurance [id number] 1960 Unknown [id number] Social History Date Type Detail Facility Tobacco smoking stat us NHIS Unknown if ever smoked [facility] Work Phone: Start: 2000 Sex Assigned At Female F [facility] Start: 01-02-2024 End: 05-27-2024 Tobacco smoking status NHIS Never smoked tobacco [facility] Start: 01-02-2024 End: 05-27-2024 Tobacco use and exposure Smokeless tobacco non-user [facility] Start: 04-27-2024 End: 08-27-2024 Alcoholic beverage intake Ex-drinker (finding) [facility] Start: 01-02-2024 End: 06-15-2024 History of Social function [facility] Start: 01-02-2024 End: 06-15-2024 Tobacco use panel [facility] Start: 01-29-2024 [facility] Start: 11-26-2023 Gender identity Identifies as female gender (finding) [facility] Start: 05-27-2024 End: 06-15-2024 Alcoholic beverage intake Lifetime non-drinker (finding) [facility] Start: 1999 Sex assigned at Not on file [facility] Start: 05-26-2024 Sex Female (finding) [facility] Medical Equipment Procedure Code Equipment Code Equipment Origin al Text Equipment Identifier Dates 1 strip by In Vi tro route Daily Use in the morning prior to breakfast, 1 hour after each meal for a total of 4times daily. [id number] Start: 07-20-2024 End: 08-19-2024 1 each by In Vit ro route Daily Use to check FSBS four times daily [id number] Start: 07-20-2024 End: 08-19-2024 Goals Date Patient [...] apply, As needed Blood Glucose Monitoring Suppl (DAdaptive Planning Glucometer) w/Device kit 1 kit, Does not apply, Daily, Use four times daily to check FSBS. In the morning prior to breakfast & 1 hour after each meal for a total of 4times daily. Continuous Glucose Construction Project Assistant (FreeStyle Jenise 3 Delta) device 1 each, Does not apply, Every 14 days Continuous Glucose Sensor (FreeStyle Jenise 3 Sensor) misc 1 each, Does not apply, Every 14 days Multiple Vitamin (multivitamin) tablet 1 tablet, Daily terconazole (Terazol 7) 0.4 % vaginal cream 1 applicator, Vaginal, Nightly ALLERGIES Allergies Allergen Reactions [place] Flavor [[place] Oil] Latex Hives, Itching, Rash and Swelling [...] nursing note reviewed. Exam conducted with a system operation superintendent present. Vitals: Estimated body mass index is [...] DO documented in this encounter [facility] 08-27-2024 History of Present illness Narrative [...] apply, As needed Blood Glucose Monitoring Suppl (D-[employer] Glucometer) w/Device kit 1 kit, Does not apply, Daily, Use four times daily to check FSBS. In the morning prior to breakfast & 1 hour after each meal for a total of 4times daily. Continuous Glucose Construction Project Assistant (FreeStyle Jenise 3 Delta) device 1 each, Does not apply, Every 14 days Continuous Glucose Sensor (FreeStyle Jenise 3 Sensor) misc 1 each, Does not apply, Every 14 days metroNIDAZOLE (FLAGYL) 500 mg, Oral, 2 times daily, Do not drink alcohol while taking this medication Multiple Vitamin (multivitamin) tablet 1 tablet, Daily ALLERGIES Allergies Allergen Reactions [place] Flavor [[place] Oil] Latex Hives, Itching, Rash and Swelling [...] nursing note reviewed. Exam conducted with a system operation superintendent present. Vitals: Estimated body mass index is [...] DO documented in this encounter [facility] 08-12-2024 History of Present illness Narrative [...] 1 tablet, Daily ALLERGIES Allergies Allergen Reactions [place] Flavor [[place] Oil] Latex Hives, Itching, Rash and Swelling [...] nursing note reviewed. Exam conducted with a system operation superintendent present. Vitals: Estimated body mass index is [...] DO documented in this encounter [facility] 07-20-2024 History of Present illness Narrative [...] mg, Oral, Daily ALLERGIES Allergies Allergen Reactions [place] Flavor [[place] Oil] Latex Hives, Itching, Rash and Swelling [...] DO documented in this encounter [facility] 06-22-2024 History of Present illness Narrative [...] mg, Oral, Daily ALLERGIES Allergies Allergen Reactions [place] Flavor [[place] Oil] Latex Hives, Itching, Rash and Swelling [...] DO documented in this encounter [facility] 06-15-2024 History of Present illness Narrative [...] Allergies: Allergies Allergen Reactions Latex, Natural Rubber [place] Meds: Prior to Admission medications Medication Sig [...] other morbidities. Based on the available evidence, [facility] recommends treatment with antihypertensive therapy for [...] preeclampsia prevention as is recommended by the [employer]ne[employer] Committee Opinion No. 743. [...] Cele Rodriguez MD, FACOG (she/hers) [facility] [address] [place] [address] This document was created with [employer] technology. Though I make every effort to review the dictation as it is transcribed, on occasion the spoken word can be misinterpreted by the technology leading to inappropriate words, phrases, or sentences. This note is addressed to the requesting provider as a consultation for clinical guidance. Specific medical abbreviations are occasionally used and those are generally approved by the [employer]?Board of?Obstetrics and?Gynecology?as well as?Kenzie s abbreviations. The above plan of care was based solely on the diagnoses for which a consultation was requested. ?More frequent testing may be indicated based on her other medical/obstetrical conditions. The management of other or medical conditions is beyond the scope of requested consultation and will continue to be followed by the primary senior economist or primary care provider. Note to patient: [...] IVF Have you been seen here at [facility] in a previous ? N/a Recent ER visits or hospitalizations? no Bring blood sugar log or meter with you today? (Please bring them with you for every visit at [facility]) no Flu vaccine (May-September)? no Any concerns that you would like me to mention to the provider today? no documented in this encounter [facility] 05-25-2024 History of Present illness Narrative Reason [...] mg, Oral, Daily ALLERGIES Allergies Allergen Reactions Ge[place]a Flavor [[place]a Oil] Latex Hives, Itching, Rash and Swelling [...] nursing note reviewed. Exam conducted with a system operation superintendent present. Vitals: Estimated body mass index is [...] DO documented in this encounter [facility] 04-27-2024 History of Present illness Narrative [...] mg, Oral, Daily ALLERGIES Allergies Allergen Reactions Ge[place]a Flavor [Geauga Oil] Latex Hives, Itching, Rash and Swelling [...] nursing note reviewed. Exam conducted with a system operation superintendent present. Vitals: Estimated body mass index is [...] with IVF . Patient to also have [facility] referral for IVF and Level II [...] or undercooked meat, and stay away from [facility]. Patient has been consulted regarding any further do's and don'ts of . Patient voiced understanding and all questions and concerns were answered. Orders Placed This Encounter Procedures POCT urinalysis dipstick manually resulted Follow Up: Patient is to return in 4 weeks for routine OB appointment. Documented by Esperanza Peter LPN on behalf of: Immanuel Hilton DO documented in this encounter [facility] 03-27-2024 History of Present illness Narrative [...] Procedure Laterality Date TONSILLECTOMY Allergies Allergen Reactions Ge[place]a Flavor [Geauga Oil] Latex Hives, Itching, Rash and Swelling [...] or undercooked meat, and stay away from [facility]. Patient has also been advised to [...] Jo-Ann Motta LPN documented in this encounter [facility] Healthcare Evaluation note No assessment inform ation available [facility] Work Phone: Evaluation note Diagnosis Well woman [...] SystemInstructionsNot on filedocumented in this encounter [facility] SystemInstructionsNot on filedocumented in this encounter [facility] SystemInstructions* Attachments The following attachments cannot be sent through Care Everywhere. * Preeclampsia ([place]ian) [facility] Summary Purpose Family History Relationship Condition Age at Onset Recorded Date/T yosi family member Unknown Heart disease Unknown Advance Directives Advance Directive Response Recorded Date/ Time Advance Directives No January 01 9:07am Chief Complaint and Reason for Visit Chief Complaint Congestion Additional Source Comments INFORMATION SOURCE (unrecogn ized section and content) DATE CREATED AUTHOR 03/06/2019 [place] [facility] DATE CREATED AUTHOR AUTHOR'S ORGANIZ ATION [facility]2021 [facility] DATE CREATED AUTHOR AUTHOR'S ORGANIZ ATION 12/01/2022 [facility] DATE CREATED AUTHOR AUTHOR'S ORGANIZ ATION 06/17/2024 [facility] DATE CREATED AUTHOR AUTHOR'S ORGANIZ ATION 09/09/2024 [facility] Care Teams (unrecognized sec tion and content) Team Status: Active Member Role Status Dates Damon Stover DO Primary Care Provider Active Team Status: Inactive Member Role Status Dates Damon Stover DO Primary Care Provider Active Start: January 02, 2024 End: January 02, 2024 Teresa Sanchez APRN Attending Provider Active S tart: January 02, 2024 End: January 02, 2024 Loader Operator Relationship Specialty Start Date End Date Akila Grant MD [address] [facility] [address] [facility] [place] [address] PCP - General Family Medicine 11/27/23 Loader Operator Relationship Specialty Start Date End Date Akila Grant MD [address] [facility] [facility] [place] [address] PCP - General Family Medicine 11/27/23 Loader Operator Relationship Specialty Start Date End Date Akila Grant MD [address] [facility] [address] [facility] [place] [address] PCP - General Family Medicine 11/27/23 Loader Operator Relationship Specialty Start Date End Date Akila Grant MD [address] [facility] [address] [facility] [place] [address] PCP - General Family Medicine 11/27/23 Loader Operator Relationship Specialty Start Date End Date Akila Grant MD [address] [facility] [address] [facility] [place] [address] PCP - General Family Medicine 11/27/23 Loader Operator Relationship Specialty Start Date End Date Akila Grant MD [address] [facility] [address] [address] [facility] [place] [address] PCP - General Family Medicine 11/27/23 Loader Operator Relationship Specialty Start Date End Date kAila Grant MD [address] [facility] [address] [facility] [place] [address] PCP - General Family Medicine 11/27/23 Loader Operator Relationship Specialty Start Date End Date Akila Grant MD [address] [facility] [place] [place] [address] PCP - General Family Medicine 11/27/23 Loader Operator Relationship Specialty Start Date End Date Akila Grant MD [address] [facility] [place] [address] PCP - General Family Medicine 11/27/23 Loader Operator Relationship Specialty Start Date End Date Akila Grant MD [address] [facility] [place] [address] PCP - General Family Medicine 11/27/23 Loader Operator Relationship Specialty Start Date End Date Akila Grant MD [address] [facility] [place] [address] PCP - General Family Medicine 11/27/23 Loader Operator Relationship Specialty Start Date End Date Akila Grant MD [address] [facility] [place] [address] PCP - General Family Medicine 11/27/23 Loader Operator Relationship Specialty Start Date End Date Akila Grant MD [address] [facility] [place] [address] PCP - General Family Medicine 11/27/23 Loader Operator Relationship Specialty Start Date End Date Akila Grant MD [address] [facility] [place] [address] PCP - General Family Medicine 11/27/23 Loader Operator Relationship Specialty Start Date End Date Akila Grant MD [address] [place] [address] PCP - General Family Medicine 11/27/23 Loader Operator Relationship Specialty Start Date End Date Akila Grant MD [address] [place] [id number] PCP - General Family Medicine 11/27/23 Goals [...] BE BASED ON THE PRIMARY CLINICAL RECORDS. [employer] [facility]. provides no warranty or guarantee of the accuracy or completeness of information in this document.
[2024-09-20 12:52] VITALS: BP 118/82; PULSE 134; TEMP 37.2; O2SAT 98; BMI 35.5
== END 2024-09-20 13:17 | disposition admitted as inpatient to this hospital (09) ==
PROVIDERS: Emergency Provider Emergency Medicine; PCP Family Medicine
DX: O26.893 Other specified pregnancy related conditions, third trimester (principal); R11.10 Vomiting, unspecified; Z3A.35 35 weeks gestation of pregnancy
CPT/HCPCS: 99285

== ENCOUNTER 2024-09-20 13:22 | Observation (INO) | payer OTHER, BC, SELFPAY ==
[2024-09-20 13:29] VITALS: BP 134/85; PULSE 131
--- OUTSIDE RECORDS SUMMARY | 2024-09-20 13:30 | XMS_ITS | CCD ---
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 (20 sources) orange allergenic extract Drug Allergy 4 [facility] Work Phone: (1 source) natural latex [...] MCG/0.5ML injection 11/26/2023 03/27/2024 Discontinued Continuous Glucose Equipment Validation Specialist (FreeStyle Jenise 3 Ilion) device (12 sources) Start: 08-20-2024 Continuous Glucose Equipment Validation Specialist (FreeStyle Jenise 3 Ilion) device Indications: Gestational diabetes mellitus (GDM), antepartum, [...] Facility OB BPP W NON-STRESS on 09-16-2024 [place] [address] Ultrasound Report Signed Patient: AMY MARIO MR#: [id number] : 2000 Acct:[id number] Age/Sex: 24 / F ADM Date: 09/16/24 Loc: [facility] 250-[address]: Immanuel Hilton D.O. Ordering Physician: Immanuel Hilton D.O. Date of Service: 09/16/24 Procedure(s): US OB BPP w non-stress Accession Number(s): [id number] cc: Akila Grant M.D.; Immanuel Hilton D.O. [address] [address] Patient Name: AMY MARIO MRN: [id number] date: 2000 Sex: F Assigned Patient Location: [facility] Current Patient Location: [facility] Accession/Order Number: [id number] Exam Date: 09/16/2024 09:04 Report Date: 09/16/2024 [...] 34 weeks 4 days. The heart rate beats per minute. FINDINGS: TONE: 1 or [...] Chika Holden M.D.09/16/2024 9:06 AM Dictation Location: [place] [address] Electronically authenticated by: [id number] Y Date: 09/16/2024 09:06 Dictated By: Chika Holden M.D. Signed By: 09/16/24908 DD/ 5 TD/TT: Malt House Kiln Operator: [facility] Radiology, Radiologist, MD - 09/16/2024 [place] [address] Ultrasound Report Signed Patient: AMY MARIO MR#: [id number] : 2000 Acct:[id number] Age/Sex: 24 / F ADM Date: 09/16/24 Loc: [facility] 250-[address]: Immanuel Hilton D.O. Ordering Physician: Immanuel Hilton D.O. Date of Service: 09/16/24 Procedure(s): US OB BPP w non-stress Accession Number(s): [id number] cc: Akila Grant M.D.; Immanuel Hilton D.O. The [place] [address] Patient Name: AMY MARIO MRN: [facility]:[id number] date: 2000 Sex: F Assigned Patient Location: [facility] Current Patient Location: [facility] Accession/Order Number: [id number] Exam Date: 09/16/2024 09:04 Report Date: 09/16/2024 [...] 34 weeks 4 days. The heart rate [id number] beats per minute. FINDINGS: TONE: 1 or [...] Chika Holden M.D.09/16/2024 9:06 AM Dictation Location: [facility] Electronically authenticated by: [id number] Y Date: 09/16/2024 09:06 Dictated By: Chika Holden M.D. Signed By: 09/16/24908 DD/ 5 TD/TT: Malt House Kiln Operator: [facility] Radiology Study observation (narrative) [facility] US OB BPP W NON-STRESS Ordered By: Radiologist Radiology on 09-16-2024 [facility] Work Phone: US OB GROWTHon 09-16-2024 [place] [address] Ultrasound Report Signed Patient: AMY MARIO MR#: [id number] : 2000 Acct:[id number] Age/Sex: 24 / F ADM Date: 09/16/24 Loc: [facility] 250-[address]: Immanuel Hilton D.O. Ordering Physician: Immanuel Hilton D.O. Date of Service: 09/16/24 Procedure(s): US OB growth Accession Number(s): [id number] cc: Akila Grant M.D.; Immanuel Hilton D.O. [address] [address] Patient Name: AMY MARIO MRN: [id number] date: 2000 Sex: F Assigned Patient Location: [facility] Current Patient Location: [facility] Accession/Order Number: [id number] Exam Date: 09/16/2024 09:07 Report Date: 09/16/2024 [...] Chika Holden M.D.09/16/2024 9:15 AM Dictation Location: [place] [address] Electronically authenticated by: [id number] Y Date: 09/16/2024 09:15 Dictated By: Chika Holden M.D. Signed By: 09/16/24917 DD/ 4 TD/TT: Malt House Kiln Operator: [facility] Radiology, Radiologist, - 09/16/2024 [place] [address] Ultrasound Report Signed Patient: AMY MARIO MR#: [id number] : 2000 Acct:[id number] Age/Sex: 24 / F ADM Date: 09/16/24 Loc: [facility] 250-[address]: Immanuel Hilton D.O. Ordering Physician: Immanuel Hilton D.O. Date of Service: 09/16/24 Procedure(s): US OB growth Accession Number(s): [id number] cc: Akila Grant M.D.; Immanuel Hilton D.O. [address] [address] Patient Name: AMY MARIO MRN: [facility]:[id number] date: 2000 Sex: F Assigned Patient Location: [facility] Current Patient Location: [facility] Accession/Order Number: [id number] Exam Date: 09/16/2024 09:07 Report Date: 09/16/2024 [...] Chika Holden M.D.09/16/2024 9:15 AM Dictation Location: [place] [address] Electronically authenticated by: [id number] Y Date: 09/16/2024 09:15 Dictated By: Chika Holden M.D. Signed By: 09/16/24917 DD/ 4 TD/TT: Malt House Kiln Operator: [facility] Radiology Study observation (narrative) [facility] OB GROWTHOrdered By: Kaye galarzaogyamini Radiology on 09-16-2024 [facility] Work Phone: TB TOTAL PROTEIN 24 HOUR UR INEon 09-12-2024 Interpretation and review of laboratory results Abnormal [facility] Protein (U) [Mass/Vol] 29.7 mg/dL High NINF - 11.9 mg/dL [facility] TB TOTAL PROTEIN 24 HOUR URINE 148.5 NINF [facility] TOTAL VOLUME 24 HOUR URINE 500 mL/24hr [facility] ALL CBC WITH AUTO DIFFon BASOPHILS ABSOLUTE AUTO 0 [facility] Basophils/100 WBC (Bld) 0.1 % Low 0.2 - 2.0 % [facility] Eosinophils/100 WBC (Bld) 0.7 % Low 0.9 - 7.0 % [facility] Erythrocyte distribution width (RBC) [Ratio] 13.4 % 11.0 - 15.0 % [facility] Hematocrit (Bld) [Volume fraction] 32.2 % Low 36.0 - 48.0 % [facility] Hemoglobin (Bld) [Mass/Vol] 10.6 g/dL Low 12.0 - 16.0 g/dL [facility] IMMATURE GRANULOCYTES ABS AUTO 0.06 High [facility] Immature granulocytes/100 WBC (Bld) 0.9 % High 0.0 - 0.5 % [facility] Interpretation and review of laboratory results Abnormal [facility] LYMPHOCYTES ABSOLUTE AUTO 1.4 [facility] Lymphocytes/100 WBC (Bld) 19.7 % Low 20.5 - 60.0 % [facility] MCH (RBC) [Entitic mass] 28.3 pg 26.7 - 34.0 pg [facility] MCHC (RBC) [Mass/Vol] 32.9 g/dL 29.9 - 35.2 g/dL [facility] MCV (RBC) [Entitic vol] 85.9 fL 81.0 - 99.0 fL [facility] MONOCYTES ABSOLUTE AUTO 0.5 [facility] Monocytes/100 WBC (Bld) 7.4 % 1.7 - 12.0 % [facility] NEUTROPHILS ABSOLUTE AUTO 4.9 [facility] Neutrophils/100 WBC (Bld) 71.2 % 43.0 - 75.0 % [facility] Platelet mean volume (Bld) [Entitic vol] 10.4 fL 9.5 - 13.5 fL [facility] TBH EO # 0.1 [facility] TB PLT [address] [facility] RBC 3.75 Low [facility] TB WBC 6.9 [facility] US OB BPP W NON-STRESS on 09-09-2024 [place] [address] Ultrasound Report Signed Patient: AMY MARIO MR#: [id number] : 2000 Acct:[id number] Age/Sex: 24 / F ADM Date: 09/09/24 Loc: US Attending Dr: Immanuel Hilton D.O. Ordering Physician: Immanuel Hilton D.O. Date of Service: 09/09/24 Procedure(s): US OB BPP w non-stress Accession Number(s): [id number] cc: Akila Grant M.D.; Immanuel Hilton D.O. The [place] [address] Patient Name: AMY MARIO MRN: [facility]:[id number] date: 2000 Sex: F Assigned Patient Location: [facility] Current Patient Location: ED.MAIN Accession/Order Number: [id number] Exam Date: 09/09/2024 07:58 Report Date: 09/09/2024 [...] Signed By: 09/09/24 1132 DD/ 1130 TD/TT: Malt House Kiln Operator: [facility] Radiology, Radiologist, MD - 09/09/2024 [place] [address] Ultrasound Report Signed Patient: AMY MARIO MR#: [id number] : 2000 Acct:[id number] Age/Sex: 24 / F ADM Date: 09/09/24 Loc: US Attending Dr: Immanuel Hilton D.O. Ordering Physician: Immanuel Hilton D.O. Date of Service: 09/09/24 Procedure(s): US OB BPP w non-stress Accession Number(s): [id number] cc: Akila Grant M.D.; Immanuel Hilton D.O. [place] [address] Patient Name: AMY MARIO MRN: [id number] date: 2000 Sex: F Assigned Patient Location: [facility] Current Patient Location: ED.MAIN Accession/Order Number: [id number] Exam Date: 09/09/2024 07:58 Report Date: 09/09/2024 [...] Signed By: 09/09/24 1132 DD/ 1130 TD/TT: Malt House Kiln Operator: [facility] Radiology Study observation (narrative) [facility] US OB BPP W NON-STRESS Ordered By: Radiologist Radiology on 09-09-2024 [facility] Work Phone: Urinalysis macro (dipstick) panel (U)on 09-08-2024 Bilirubin, UA Trace Negative - 4(70) +++ mg/dL [facility] Blood, UA Positive Negative - 50 Jimy/mcL [facility] Clarity, UA Clear [facility] Color, UA Yellow [facility] Glucose, UA Negative Negative - 1999(110) ++++ mg/dL [facility] Interpretation and review of laboratory results Abnormal [facility] Ketones, UA Negative Negative - 160(16) ++++ mg/dL [facility] Leukocytes, UA Positive Negative - 500+++ Mychal/mcL [facility] Nitrite, UA Negative Negative - Positive [facility] pH, UA 6 5 - 9 [facility] Protein, UA Positive Negative - 1999(20) ++++ mg/dL [facility] Spec Grav, UA 1.025 1 - 1.03 [facility] Urobilinogen, UA 0.2 0.2 - 12 mg/dL [facility] US OB BPP W NON-STRESS on 09-02-2024 [place] [address] Ultrasound Report Signed Patient: AMY MARIO MR#: [id number] : 2000 Acct:[id number] Age/Sex: 24 / F ADM Date: 09/02/24 Loc: US Attending Dr: Immanuel Hilton D.O. Ordering Physician: Immanuel Hilton D.O. Date of Service: 09/02/24 Procedure(s): US OB BPP w non-stress Accession Number(s): [id number] cc: Akila Grant M.D.; Immanuel Hilton D.O. [address] [id number] Patient Name: AMY MARIO MRN: [id number] date: 2000 Sex: F Assigned Patient Location: [facility] Current Patient Location: Accession/Order Number: [id number] Exam Date: 09/02/2024 08:03 Report Date: 09/02/2024 [...] M.D. Signed By: 09/02/24924 DD/ 1 TD/TT: Malt House Kiln Operator: [facility] Radiology, Radiologist, MD - 09/02/2024 [place] [address] Ultrasound Report Signed Patient: AMY MARIO MR#: [id number] : 2000 Acct:[id number] Age/Sex: 24 / F ADM Date: 09/02/24 Loc: US Attending Dr: Immanuel Hilton D.O. Ordering Physician: Immanuel Hilton D.O. Date of Service: 09/02/24 Procedure(s): US OB BPP w non-stress Accession Number(s): [id number] cc: Akila Grant M.D.; Immanuel Hilton D.O. The [place] [id number] Patient Name: AMY MARIO MRN: [facility]:[id number] date: 2000 Sex: F Assigned Patient Location: [facility] Current Patient Location: Accession/Order Number: [id number] Exam Date: 09/02/2024 08:03 Report Date: 09/02/2024 [...] M.D. Signed By: 09/02/24924 DD/ 1 TD/TT: Malt House Kiln Operator: [facility] Radiology Study observation (narrative) [facility] US OB BPP W NON-STRESS Ordered By: Radiologist Radiology on 09-02-2024 [facility] Work Phone: US OB FOLLOW UP TRANSABDOMIN [...] 2164 gm / 4 lbs, 12 oz (5956-0783 gm) [place] Normal: 1953 gm (3700-1474 mg) [place] 80% for 32.0 wks ([place] [...] report is generated using voice recognition reporting (Queue-it). On occasion [employer] erroneously drops words from the report or [...] UA Positive Negative - 4(70) +++ mg/dL [facility] Comment on above: small Blood, UA Negative Negative - 50 Jimy/mcL [facility] Clarity, [facility] Color, UA Yellow [facility] Glucose, UA Positive Negative - 2000(110) ++++ mg/dL [facility] Comment on above: 100 Interpretation and review of laboratory results Abnormal [facility] Ketones, UA Positive Negative - 160(16) ++++ mg/dL [facility] Comment on above: trace Leukocytes, UA Positive Negative - 500+++ Mychal/mcL [facility] Comment on above: large Nitrite, UA Negative Negative - Positive [facility] pH, UA 6.5 5 - 9 [facility] Protein, UA Positive Negative - 2000(20) ++++ mg/dL [facility] Comment on above: 30 Spec Grav, UA 1.03 1 - 1.03 [facility] Urobilinogen, UA 0.2 0.2 - 12 mg/dL [facility] US OB BPP W NON-STRESS on 08-26-2024 [place] [address] Ultrasound Report Signed Patient: AMY MARIO MR#: [id number] : 2000 Acct:[id number] Age/Sex: 24 / F ADM Date: 08/26/24 Loc: [facility] 251-[address]: Immanuel Hilton D.O. Ordering Physician: Immanuel Hilton D.O. Date of Service: 08/26/24 Procedure(s): US OB BPP w non-stress Accession Number(s): [id number] cc: Akila Grant M.D.; Immanuel Hilton D.O. The [address] [address] Patient Name: AMY MARIO MRN: [facility]:[id number] date: 2000 Sex: F Assigned Patient Location: [facility] Current Patient Location: [facility] Accession/Order Number: [id number] Exam Date: 08/26/2024 08:00 Report Date: 08/26/2024 [...] Mixon M.D. Signed By: 08/26/2458 DD/ TD/TT: Malt House Kiln Operator: [facility] Radiology, Radiologist, MD - 08/26/2024 [place] [address] Ultrasound Report Signed Patient: AMY MARIO MR#: [id number] : 2000 Acct:[id number] Age/Sex: 24 / F ADM Date: 08/26/24 Loc: [facility] 251-[address]: Immanuel Hilton D.O. Ordering Physician: Immanuel Hilton D.O. Date of Service: 08/26/24 Procedure(s): US OB BPP w non-stress Accession Number(s): [id number] cc: Akila Grant M.D.; Immanuel Hilton D.O. The [place] [id number] Patient Name: AMY MARIO MRN: [id number] date: 2000 Sex: F Assigned Patient Location: [facility] Current Patient Location: [facility] Accession/Order Number: [id number] Exam Date: 08/26/2024 08:00 Report Date: 08/26/2024 [...] M.D. Signed By: 08/26/2458 DD/ 5 TD/TT: Malt House Kiln Operator: [facility] Radiology Study observation (narrative) [facility] US OB BPP W NON-STRESS Ordered By: Radiologist Radiology on 08-26-2024 [facility] Work Phone: Urinalysis macro (dipstick) panel (U)on 08-12-2024 Bilirubin, UA Negative Negative - 4(70) +++ mg/dL [facility] Blood, UA Negative Negative - 50 Jimy/mcL [facility] Clarity, UA Clear [facility] Color, UA Yellow [facility] Glucose, UA Negative Negative - 2000(110) ++++ mg/dL [facility] Interpretation and review of laboratory results Abnormal [facility] Ketones, UA Positive Negative - 160(16) ++++ mg/dL [facility] Comment on above: trace Leukocytes, UA Positive Negative - 500+++ Mychal/mcL [facility] Comment on above: large Nitrite, UA Negative Negative - Positive [facility] pH, UA 5.5 5 - 9 [facility] Protein, UA Trace Negative - 1999(20) ++++ mg/dL [facility] Spec Grav, UA 1.03 1 - 1.03 [facility] Urobilinogen, UA 0.2 0.2 - 12 mg/dL [facility] ALL CBC WITH AUTO DIFFon BASOPHILS ABSOLUTE AUTO 0 [facility] Basophils/100 WBC (Bld) 0.3 % 0.2 - 2.0 % [facility] Eosinophils/100 WBC (Bld) 1 % 0.9 - 7.0 % [facility] Erythrocyte distribution width (RBC) [Ratio] 13.2 % 11.0 - 15.0 % [facility] Hematocrit (Bld) [Volume fraction] 32.6 % Low 36.0 - 48.0 % [facility] Hemoglobin (Bld) [Mass/Vol] 11.3 g/dL Low 12.0 - 16.0 g/dL [facility] IMMATURE GRANULOCYTES ABS AUTO 0.07 High [facility] Immature granulocytes/100 WBC (Bld) 0.9 % High 0.0 - 0.5 % [facility] Interpretation and review of laboratory results Abnormal [facility] LYMPHOCYTES ABSOLUTE AUTO 1.6 [facility] Lymphocytes/100 WBC (Bld) 19.6 % Low 20.5 - 60.0 % [facility] MCH (RBC) [Entitic mass] 30.4 pg 26.7 - 34.0 pg [facility] MCHC (RBC) [Mass/Vol] 34.7 g/dL 29.9 - 35.2 g/dL [facility] MCV (RBC) [Entitic vol] 87.6 fL 81.0 - 99.0 fL [facility] MONOCYTES ABSOLUTE AUTO 0.6 [facility] Monocytes/100 WBC (Bld) 8 % 1.7 - 12.0 % [facility] NEUTROPHILS ABSOLUTE AUTO 5.6 [facility] Neutrophils/100 WBC (Bld) 70.2 % 43.0 - 75.0 % [facility] Platelet mean volume (Bld) [Entitic vol] 9.7 fL 9.5 - 13.5 fL [facility] TBH EO # 0.1 [facility] TBH PLT [address] [facility] RBC 3.72 Low [facility] TB WBC 8 [facility] Urinalysis macro (dipstick) panel (U)on 06-22-2024 Bilirubin, UA Negative Negative - 4(70) +++ mg/dL [facility] Blood, UA Negative Negative - 50 Jimy/mcL [facility] Clarity, UA Clear [facility] Color, UA Yellow [facility] Glucose, UA Negative Negative - 1999(110) ++++ mg/dL [facility] Interpretation and review of laboratory results Abnormal [facility] Ketones, UA Positive Negative - 160(16) ++++ mg/dL [facility] Comment on above: 15 Leukocytes, UA Positive Negative - 500+++ Mychal/mcL [facility] Comment on above: small Nitrite, UA Negative Negative - Positive [facility] pH, UA 5.5 5 - 9 [facility] Protein, UA Trace Negative - 1999(20) ++++ mg/dL [facility] Spec Grav, UA 1.03 1 - 1.03 [facility] Urobilinogen, UA 0.2 0.2 - 12 mg/dL [facility] IGP,APTIMA HPV,AGE GDLNon AGE GDLN ACOG TESTING Note . [facility] Comment on above: TESTS RESULT FLAG UN ITS REF RANGE LAB Clinician Provided Cytology Information Source.............Cervix Other.............. No. of containers..01 ThinPrep Vial Age Algo ACOG Michelle... FLAG LEGEND: L-Low Normal,H-High Normal,LL-Alert Low,HH-Alert High <-Panic Low,>-Panic High,A-Abnormal,AA-Critical Abnormal Performed at: 01 =G [facility] [address] [place] [address] Mar Rivera MD, IGP, RFX APTIMA HPV ASCU Note . [facility] Comment on above: TESTS RESULT FLAG UN ITS REF RANGE LAB DIAGNOSIS: 02 NEGATIVE FOR INTRAEPITHELIAL LESION OR MALIGNANCY. FUNGAL ORGANISMS MORPHOLOGICALLY CONSISTENT WITH CARLOS SPECIES ARE PRESENT. Specimen adequacy: 02 Satisfactory for evaluation. No endocervical component is identified. An endocervical component is not commonly seen in the patient. Performed by: Judy Vera, Director Life Sciences ([facility]) . 02 Note: Note 02 The [...] <-Panic Low,>-Panic High,A-Abnormal,AA-Critical Abnormal Performed at: [address] [address] Mar Rivera MD, Performed at: =G - Lab[address] [id number] Farrowing Manager: Mar Rivera MD, Phone: [phone] Performed at: - [address] [id number] Farrowing Manager: Mra Rivera MD, Phone: [phone] [facility] AFP, SERUM, OPEN SPINA BIFID Aon 05-30-2024 AFP MOM 1.36 . [facility] AFP VALUE 55.4 ng/mL . [facility] COMMENT: Comment . [facility] Comment on above: Ivet Mobley , Ph.D., [facility] Director References: Available Upon Request. Multiples Of Median Cutoffs For AFP Elevations [place] 2.5 Black 2.8 IDD 2.0 Twins 4.5 Abbreviation Definitions IDD - Insulin Dep Diabetes OSBR - Open Spina Bifida Risk For further inquiries contact [facility] at [phone]. This test was developed and its performance characteristics determined by [employer]. It has not been cleared or approved by the Food and Drug Administration. Performed at: [facility] [address] [place], [place] [id number] Farrowing Manager: Kristina Carter [facility], Phone: [phone] GEST. AGE ON COLLECTION DATE 18.6 . weeks [facility] GESTAT. AGE BASED ON LMP . [facility] Comment on above: Recalculations are n ot recommended when gestational dating by LMP and ultrasound are within 10 days. INSULIN DEP DIABETES No . [facility] INTERPRETATION Comment . [facility] Comment on above: Interpretation: Scre en Negative [...] Customer Services to discuss available options. The [employer] recommends amniocentesis be offered to women age 35 and older. MATER[age] AT SARA 25.3 . [age] [facility] MULTIPLE GESTATION No . [facility] OSBR RISK 1 IN 403 . [facility] RACE . [facility] RESULTS Report . [facility] TEST RESULTS: Negative . [facility] WEIGHT 185 . lbs [facility] N N LMP [id number] 18 N 1 Y 185 N N N N N White/ [facility] Urinalysis macro (dipstick) panel (U)on 04-27-2024 Bilirubin, UA Positive Negative - 4(70) +++ mg/dL [facility] Comment on above: small Blood, UA Negative Negative - 50 Jimy/mcL [facility] Clarity, UA Clear [facility] Color, UA Yellow [facility] Glucose, UA Negative Negative - 2000(110) ++++ mg/dL [facility] Interpretation and review of laboratory results Abnormal [facility] Ketones, UA Positive Negative - 160(16) ++++ mg/dL [facility] Comment on above: trace Leukocytes, UA Positive Negative - 500+++ Mychal/mcL [facility] Comment on above: small Nitrite, UA Negative Negative - Positive [facility] pH, UA 6.0 5 - 9 [facility] Protein, UA Negative Negative - 2000(20) ++++ mg/dL [facility] Spec Grav, UA 1.030 1 - 1.03 [facility] Urobilinogen, UA 0.2 0.2 - 12 mg/dL [facility] ALL CBC WITH AUTO DIFFon BASOPHILS ABSOLUTE AUTO 0.0 [facility] Basophils/100 WBC (Bld) 0.1 % Low 0.2 - 2.0 % [facility] Eosinophils/100 WBC (Bld) 0.9 % 0.9 - 7.0 % [facility] Erythrocyte distribution width (RBC) [Ratio] 13.0 % 11.0 - 15.0 % [facility] IMMATURE GRANULOCYTES ABS AUTO 0.03 [facility] Immature granulocytes/100 WBC (Bld) 0.3 % 0.0 - 0.5 % [facility] Interpretation and review of laboratory results Abnormal [facility] LYMPHOCYTES ABSOLUTE AUTO 2.3 [facility] Lymphocytes/100 WBC (Bld) 26.6 % 20.5 - 60.0 % [facility] MCH (RBC) [Entitic mass] 30.1 pg 26.7 - 34.0 pg [facility] MCHC (RBC) [Mass/Vol] 34.6 g/dL 29.9 - 35.2 g/dL [facility] MCV (RBC) [Entitic vol] 87.0 fL 81.0 - 99.0 fL [facility] MONOCYTES ABSOLUTE AUTO 0.4 [facility] Monocytes/100 WBC (Bld) 4.1 % 1.7 - 12.0 % [facility] NEUTROPHILS ABSOLUTE AUTO 5.9 [facility] Neutrophils/100 WBC (Bld) 68.0 % 43.0 - 75.0 % [facility] Platelet mean volume (Bld) [Entitic vol] 9.6 fL 9.5 - 13.5 fL [facility] TBH EO # 0.1 [facility] PLT 400 [facility] RBC 4.55 [facility] WBC 8.7 [facility] CBC without diffon Rbc Mcv (Fl) By Automated Count 87 [facility] Laboratory - Hematology and Cell countson 04-08-2024 Hematocrit (Bld) [Volume fraction] 39.6 % [facility] Hemoglobin (Bld) [Mass/Vol] 13.7 g/dL [facility] No Panel Informationon 04-08 [facility] Rubella IGG immune statuson 04-08-2024 Rubella immune IgG 2.32 [facility] Syphilis Total(Unknown Syphi lis Status)on 04-08-2024 Syphilis Non-Reactive [facility] Type and screenon 04-08-2024 Abo/Rh(D) Positive [facility] HCG ( test) Ql (U)o n 03-27-2024 Interpretation and review of laboratory results Abnormal [facility] Preg Test, Ur Positive [facility] Urinalysis macro (dipstick) panel (U)on 03-27-2024 Bilirubin, UA Negative Negative - 4(70) +++ mg/dL [facility] Blood, UA Negative Negative - 50 Jimy/mcL [facility] Clarity, UA Clear [facility] Color, UA Yellow [facility] Glucose, UA Negative Negative - 2000(110) ++++ mg/dL [facility] Interpretation and review of laboratory results Normal [facility] Ketones, UA Negative Negative - 160(16) ++++ mg/dL [facility] Leukocytes, UA Negative Negative - 500+++ Mychal/mcL [facility] Nitrite, UA Negative Negative - Positive [facility] pH, UA 5.5 5 - 9 [facility] Protein, UA Negative Negative - 2000(20) ++++ mg/dL [facility] Spec Grav, UA 1.025 1 - 1.03 [facility] Urobilinogen, UA 0.2 0.2 - 12 mg/dL [facility] PROGESTERONEon 07-27-2022 Progesterone 26.9 ng/mL Normal [facility] Comment on above: Result Comment: Foll icular phase 0.1 - 0.9 Luteal phase 1.8 - 23.9 Ovulation phase 0.1 - 12.0 First trimester 11.0 - 44.3 Second trimester 25.4 - 83.3 Third trimester 58.7 - 214.0 Postmenopausal 0.0 - 0.1 Performed By: #### P ROGES #### [facility] [address] [place] [address] Dr. Ryan Francisco PREG QUANT HCGon 07-12-2022 HCG QUANT <1 Normal [facility] Comment on above: Performed By: #### P REGQNT #### [facility] [address] [place] [address] Dr. Ryan Francisco HCG RANGE SEE BELOW Normal [facility] Comment on above: Result Comment: 5-50 0.2-1 WEEK 50-500 1-2 WEEKS 100-5,000 2-3 WEEKS 500-10,000 3-4 WEEKS 1,000-50,000 4-5 WEEKS 10,000-100,000 5-6 WEEKS 15,000-200,000 6-8 WEEKS 10,000-100,000 2-3 MONTHS Performed By: #### P REGQNT #### [facility] [address] [place] [address] Dr. Ryan Francisco XR HYSTEROSALPINGO EXPon XR [...] by: CLEMENTINE DEWEY Date: 2022-07-12 12:34 Normal [facility] PROGESTERONEon 06-29-2022 Progesterone 4.6 ng/mL Normal [facility] Comment on above: Result Comment: Foll icular phase 0.1 - 0.9 Luteal phase 1.8 - 23.9 Ovulation phase 0.1 - 12.0 First trimester 11.0 - 44.3 Second trimester 25.4 - 83.3 Third trimester 58.7 - 214.0 Postmenopausal 0.0 - 0.1 Performed By: #### P BRETT #### [facility] [address] [place] [address] Dr. Ryan Francisco PROGESTERONEon 06-01-2022 Progesterone 18.9 ng/mL Normal [facility] Comment on above: Result Comment: Foll icular phase 0.1 - 0.9 Luteal phase 1.8 - 23.9 Ovulation phase 0.1 - 12.0 First trimester 11.0 - 44.3 Second trimester 25.4 - 83.3 Third trimester 58.7 - 214.0 Postmenopausal 0.0 - 0.1 Performed By: #### Johnathon WEST #### [facility] [address] [place] [address] Dr. Ryan Francisco US PELVIS AND TRANSVAGon [...] Date: 2022-05-17 17:25 Normal [facility] PROGESTERONEon 04-29-2022 Progesterone 5.1 ng/mL Normal [facility] Comment on above: Result Comment: Foll icular phase 0.1 - 0.9 Luteal phase 1.8 - 23.9 Ovulation phase 0.1 - 12.0 First trimester 11.0 - 44.3 Second trimester 25.4 - 83.3 Third trimester 58.7 - 214.0 Postmenopausal 0.0 - 0.1 Performed By: #### P BRETT ####[facility] [address] [place], [place] [address]UlDr. Ryan Francisco ANTI-MULLERIAN HORMONEon Anti-Mullerian Hormone (AMH) 6.09 ng/mL Normal [facility] Comment on above: Result Comment: For assays employing antibodies, the possibility exists for interference by heterophile antibodies in the samples.1 1.Steffen Wilson Interferences in Immunoassays - still a threat. Clin. Chem. 2000; 46: 8082-8475. This test was developed and its performance characteristics determined by [employer]. It has not been cleared or approved by the Food and Drug Administration. Reference Range: Females 20 - 25y: 1.23 - 11.51 Median 4.70 AMH concentrations of >= 1.06 ng/mL is correlated with a better response to ovarian stimulation, produced more retrievable oocytes and higher odds of live according to Gleicher et al. Fertility and Sterility. 2010: 94:7165-3953. The current AMH test method correlates with [...] By: #### A WEI #### [facility] [address] [place], [place] [address] Dr. Ryan Francisco FSHon 04-05-2022 FSH 3.6 mIU/mL Normal [facility] Comment on above: Result Comment: Adul t Female: Follicular phase 3.5 - 12.5 Ovulation phase 4.7 - 21.5 Luteal phase 1.7 - 7.7 Postmenopausal 25.8 - 134.8 Performed By: #### L [facility] #### [facility] [address] [address] [address] Ryan Francisco LUTEINIZING HORMONE (LH)on 0 04-05-2022 LH 6.8 mIU/mL Normal [facility] Comment on above: Result Comment: Adul t Female: Follicular phase 2.4 - 12.6 Ovulation phase 14.0 - 95.6 Luteal phase 1.0 - 11.4 Postmenopausal 7.7 - 58.5 Performed By: #### L [facility] ####[facility] [address] [place], [place] [address]GmDr. Ryan Francisco CBC AUTO DIFFon 04-04-2022 BASO # 0.0 103/ul Normal 0.0-0.1 [facility] Comment on above: Performed By: #### C BC #### [facility] [address] [address] [address] Ryan Francisco Basophils/100 WBC (Bld) 0.3 % Normal 0.2-2.0 [facility] Comment on above: Performed By: #### C BC #### [facility] [address] [address] [address] Ryan Francisco EO # 0.1 103/ul Normal 0.0-0.7 [facility] Comment on above: Performed By: #### C BC #### [facility] [id number] Ryan Francisco Eosinophils/100 WBC (Bld) 1.7 % Normal 0.9-7.0 [facility] Comment on above: Performed By: #### C BC #### [facility] [address] [address] [address] Ryan Francisco Erythrocyte distribution width (RBC) [Ratio] 12.7 % Normal 11.0-15.0 [facility] Comment on above: Performed By: #### C BC #### [facility] [address] [address] [address] Ryan Francisco Hematocrit (Bld) [Volume fraction] 39.7 % Normal 36.0-48.0 [facility] Comment on above: Performed By: #### C BC #### [facility] [address] [place] [address] Dr. Ryan Francisco Hemoglobin (Bld) [Mass/Vol] 13.4 g/dL Normal 12.0-16.0 [facility] Comment on above: Performed By: #### C BC #### [facility] [address] [place] [address] Dr. Ryan Francisco IG # 0.03 10e3/ul Normal 0.00-0.03 [facility] Comment on above: Performed By: #### C BC #### [facility] [address] [place] [address] Dr. Ryan Francisco IG % 0.5 % Normal 0.0-0.5 [facility] Comment on above: Performed By: #### C BC #### [facility] [address] [place] [address] Dr. Ryan Francisco LYMPH # 1.6 103/ul Normal 1.2-3.8 [facility] Comment on above: Performed By: #### C BC #### [facility] [address] [place] [address] Dr. Ryan Francisco Lymphocytes/100 WBC (Bld) 27.1 % Normal 20.5-60.0 [facility] Comment on above: Performed By: #### C BC #### [facility] [address] [place] [address] Dr. Ryan Francisco MANUAL DIFF REQ NO Normal [facility] Comment on above: Performed By: #### C BC #### [facility] [address] [place] [address] Dr. Ryan Francisco MCH (RBC) [Entitic mass] 29.6 pg Normal 26.7-34.0 [facility] Comment on above: Performed By: #### C BC #### [facility] [id number] Ryan Francisco MCHC (RBC) [Mass/Vol] 33.8 g/dL Normal 29.9-35.2 [facility] Comment on above: Performed By: #### C BC #### [facility] [id number] Ryan Francisco MCV (RBC) [Entitic vol] 87.6 fL Normal 81.0-99.0 [facility] Comment on above: Performed By: #### C BC #### [facility] [address] [address] [address] Ryan Francisco MONO # 0.4 103/ul Normal 0.3-0.8 [facility] Comment on above: Performed By: #### C BC #### [facility] [address] [place] [address] Dr. Ryan Francisco Monocytes/100 WBC (Bld) 6.7 % Normal 1.7-12.0 [facility] Comment on above: Performed By: #### C BC #### [facility] [address] [place] [address] Dr. Ryan Francisco NEUT # 3.7 103/ul Normal 1.4-6.5 [facility] Comment on above: Performed By: #### C BC #### [facility] [address] [place] [address] Dr. Ryan Francisco Neutrophils/100 WBC (Bld) 63.7 % Normal 43.0-75.0 [facility] Comment on above: Performed By: #### C BC #### [facility] [address] [place], [place] [id number] Dr. Ryan Francisco Platelet mean volume (Bld) [Entitic vol] 9.9 fL Normal 9.5-13.5 [facility] Comment on above: Performed By: #### C BC #### [facility] [address] [place] [address] Dr. Ryan Francisco PLT 421 103/ul Normal 150-450 [facility] Comment on above: Performed By: #### C BC #### [facility] [address] [address] [address] Ryan Francisco RBC 4.53 106/ul Normal 4.20-5.40 [facility] Comment on above: Performed By: #### C BC #### [facility] [address] [place], [place] [address] Dr. Ryan Francisco WBC 5.8 103/ul Normal 4.0-11.0 [facility] Comment on above: Performed By: #### C BC #### [facility] [id number] Ryan Francisco FREE T4on 04-04-2022 Free T4 [Mass/Vol] 0.99 ng/dL Normal 0.76-1.46 [facility] Comment on above: Performed By: #### F T4 #### [facility] [id number] Ryan Francisco TSHon 04-04-2022 TSH 3.086 uIU/mL Normal 0.358-3.740 [facility] Comment on above: Performed By: #### T SH ####[facility] [address] [place], [place] [address]CzDr. Ryan Francisco US PELVIS AND TRANSVAGon US [...] by: LUCHO MIXON Date: 2022-04-04 16:38 Normal [facility] Auth for Release of Medical Recordson 12-20-2021 Auth for Release of Medical Records [id number]# 1.00CD:127 Normal [facility] Coding Summary.on 08-22-2021 Coding Summary. CD:[id number] Gh0bWw+PGhlYWQ+PE1FV SPwP99amGFtkK6SU1yGY D3WNIJXMTNUWA1IFY2dl AO1FEbvY4EyqxVi CtnehOIkCI20RFt1UOB8 cIunAWidlR4muWKzU3i4 BwSqAK16vW02QNfhAUJq QsC9WtYsijiogXUl P7piTbSdkOUqQgi+PHRh YmxlIHdpZHRoPScxMDAl JcXdsMguOS5aVb7jFHYk LWNvbGxhcHNlOiBj r3vyYBFkBAuqNC7fuWvi X1XexGX4WSZcj5g5Yh85 dHI+JYNuTVL1hMysQGmo o465ZtRgg9fvHUR1 sBKvMXliAVW1L54fj0F6 FPOyLPDhIWS7rLR3sC2v fLcegcsaH5LudJJzAzD7 OLV8zLWxrY3ooUrv wqwnxX9oDci+S08PCN7Z SEVZNJ7DRwl7J3CmKubd dHI+EV04KILsPS10gOTv wPUmf3oouMw5ZkLn SIMwFAA9hMgsYSbok8Ws GCCaT69ieHEhk6L5ZWFv xNouoZHjJoFgbAP2rU5y FUqsejlzz6wtmuir Fswoi3izpu11tD94Q72e JJgdUSMfJFR6QKMwJGOt iUoink3lzW6zNd1+IDxj u4rac7sfyKn3HlSm FNAcnfMadQtjXKA7i9Rx Yp70L9GlrApjt8BsEiz5 kq59qWLke2J7sSN0ZZdf BNUdjC8uXTwqUcJ3 POPbXmTcgP93kHVlGQqt Wd5psRqjeZryFI2uHOZp abnaGOZxzP5sXEEdgBUf tFeuZC8dTBPamism z281ApHhRZD6PTYbxGIn G2SqyH4dNlDsUIZsPSUh U1JyzMBcYQtqS406YNha CiU9RYDklcMyI2Qg JUZazQeyNuA9e8G5Is1W t4JzyzyqPFK3EQssESJd RwO5YdQwDlA7R9RdXkd0 LFOwzDetHS3pP1Xh ROKaathcxvayyYA3OMNd PHPjyW71iMTaAQmdDe0s a3O3r655FVJoXEEoyM43 Fs1wgPmtOGQfwTSX hE5agjwio2upalkyLqAo LLLuUIw8LPv2RCHnoYwf TdJoXVE9CjP5ZOW7fZMa pC3qdUrxlqwdgZ8e Oyc+A32xrH8uRND6AMP6 xovcKVUkpvSsOQ70LW84 O4BjSbuoqCSonKG+PGRp msXegIrjKX3bOwXi g5lnl9CkXGxrJ4GyWUGh FOfuKoa4SJMhROG1xSY2 aY0wUAMxNDhzy0I4bUR7 C4FwwlGpdk7hw7tn DLQdTLhnD07qkKJwq6P3 HEYrhLT8EMCkaEeaNgHa lV60Srr+WUEvaKftz0Hx Yuhli1ihn1qpbQc0 IjMwJSIgdmFsaWduPSJ0 p7ByCk77N14jGItfJSEk SKJiCSLqXWTaiXhsrw5w hE0gPb4+PGNvbCB3 cEZ4yA7bQPWvFaR2KVxz J771ZmDeoQWuAeelw6sx l7memVb0GzTbCBNybxHc lJknJFN1s1UoOn07 E34zOHvqADMhWCIrBTEu SCXycFmjoo3axR4pBm1+ EL4np7dfyn96oR60fBF+ TDNkOGD6oMliHFus UNOkfE6nQOuxOxA5MBGl RkRfaM89yFGsXPhaOl6k lAkboMlcNE8mFQFijjii e963BuNcy0peMHUv fPBrEZxiFDB8T09xb3T5 GYVyMDRiUSC2wIP4zL1v bGlnbjogbGVmdDsgdmVy mKrfDRyrCRnfN593 IHRvcDsnPlBhdGllbnQg XeUaTBe8H1DqCrq6PWJs rPuqDH5agHApSUphAd7m hWvtsXsyEC0jYMMg vfryp096ZuLft9biVBOg pBQiZMwgZDM0Q22ka4X7 OUSjMBOkYDG7mCB1uR8r bGlnbjogbGVmdDsg wnEitFfeCFxzDFlaE813 IHRvcDsnPkJpcnRoIERh iHS7ME77BZ96pLSvk2V4 tTS0F9SsYUXlrfxv mwimqWL6UKZqICEdpO35 Jm1scAexCw2jPRZeXNF6 RTEvkXYoX1DraQ6ySfLj DTWpCQJpG2EgmDMw PZzcF910HFboVdY4NFOn lkFqZ2IaDJInvMnlMuR1 y2R4Pd2LS2H5JW41PX88 wDTba5P2zQI4M0Ub SJWfmzlqhtqhsBT4EXIs QEWlmP53Jc7szDagBy9x WXTcVMC1OVVfzRNcZ5Gn bA0lCrJzKVSmNUVb V8FulHXgCLacK174LGxj LrF4ZRNxfeNpK0YxENSa eCpoNdG5z0N1Li8JMYe6 SY55NM27lTGoa5V9 gQS8D9IqLHBcimgzwxbe nSO8SINcICQueE89Qr5c iKraEu2iFNCgSRN1SBZu qOBrH3KptO5oFuZy VUAuLNQoS7GtqHHoFYud N957KMqeFwU6ZCRdcoGp P8BjRMBqePtaQyQ8f3X2 Jn6HFGPfIJ75GPF7 jKZ8KT98FE83E8OmIeoe dGFibGU+PHRhYmxlIHdp ZHRoPScxMDAlJyBzdHls BD6aHl8qNNZeEOVy bFcsiUNoSyDgj6grKDIw GUpdAY5dyTyvS7OorNC6 UBMmt7d1Jp14Y96tA1Py dXA+ZQUmoGG9qNC0 hY7nZmKhFyJ8WQguN239 UmVuvCKcRuzhs5ypb0sp oAi0BaC8MSAxwiAbkHxi NJQ9y8CuDl87R87o IHdpZHRoPSIxNSUiIHZh oRhotd5yiI9pJh4+PGNv vFH6zJF3yD3cXlRfNkU6 UQrvY136QwJeyPUo Dtnum2plz0reaZw8SvQv YGXezxRbmDgrDOB9j2Lo Uv05X1TmxDmlz1UwTqt2 ob56yWTqd6B2lUD8 S0GgTVWctmnbgEXzeNkc ZX8rCRNggoqhXUHcjZ0h ACNfK2f7LxYdMsL9LCpm I6PwpbH9ONDebUTy ABkjTLY2H86tk5B4ZPAk MWIyLAH5kVS6oL4rtVcg bjogbGVmdDsgdmVydGlj WJatDUnxW267SCGb hSpgEPNbbN3kWCVbiBAb mYybWY7vCTIerbxwUdtN FJBdMFcYQKCNHS04EV16 kZZuy8L7rDJ1L6Db SVUlnsycvejqnYO3JCCv XORnvX34pBZjCUvbSe3z h5W2j224BKTgHHPjmT69 Sw1wwLeeETDfdUIC aS8hqqnba5ruxodvWaMz WLTfWYy6MZj6LMWmrIqt YeKtXHO0TaE4XIX8tUIk pQ4ndZphfedxnQ1i Oyc+GQUqAabvOSz7LSci dGQ+FTBmKJI6fOjaCHft XWSutG6pAQBsS9a1AdPo RpC6OKwrA1SrRHYx bbbpXm73iR1sRpHvUuS7 RLhbA8QnjxP8CFYotNUo UGpsJRV9Z38kw2W7DVEp ZIYdBNY3lGF9cO6o bGlnbjogbGVmdDsgdmVy tQdoEQslERecK595QREk iQgnYtUoVPlaPYIyNM36 YP16jFRqs5U9uAX9 Q0YuZQJvaztcggesdDW3 ILMwSPJilF94cTJuHJkj Kj8tu6J8k647GTQmRHWg cA26Ai3ooQljWOHq kYQXyZ8kpuqry2yumrix WaZzMXYiCHn3ZHp9ZXYf zWzlVmChKJY3FrB7TKA7 lRMtvU3awOswbybv wD7rRcv+YuJnRPptKH64 EY34iHAbj7D3pZZ3F9Io COQfzegljraumMP0AIBt MXXoxU73kBOoNWif Oo6sa0Z1v132FWOzSUGv tM03Ws3uxLfuGSDvsTLI sE3gvvuks4orkveiVyZz ECXwGQv7ZZo7NIYg hIknMrYzJLA7WdO8KAC1 cJLabX8tlQqmhwgvzV8k Oyc+E3N8kPC0hZDtiVtq dGQ+HM58tl91D9Jf JyelYlx3WDFoLRD6rIH9 oF3mOVPrYDujt0E8nCD2 L3AazgQvai9tp0auVATp OThpS36bbOIlp4L4 UDHiiJV9DRIjtYinPgUl wR07Jfn+QQVseLzci3Sm Ftjvl2qil3dmvIj4CwXj JSIgdmFsaWduPSJ0 b5OhFt06Z50bNHtqTKEy VLTbZSXdLTRkvOguzk3b kR9fSc6+FWJfiOC7zPM7 bX4tJbQxYcH8QPsp Y339UsHkkCXsBdqhz0ez d6mzcDu9ZkQrGDZnedKm aRudCFU0k7XyMy54V5Eq jFrbx6ZbUpg8ti73 mSXbp6Q8vSF4T8XlYOBr isrpoIJwpIfxAY4vXIKr ctzyQMCqbZ9dVXJyV1x9 FpRlPyB1NIbzW4Wr qbY9REUcvCVrAQVifEBY hI8otylpz5skxnzdNsAa VSDbKUz5SSh1PQOloEgr TeLhETG8GjE3EIR5 zJFzrX3ylRdabwqlvP7k Oyc+QGq1r3xmfVPuBT7z wPJ2ZC19SC00kSVfx4S9 lVS8A4RcPWCjogvy wqfcsXM7VIToQZIjgK54 Nb5nxTktHt2yBNWyXQJ0 MQMgnOYiU0MtdM5mEtHn WERdPBInQ3MxpHHk SIjcG024QIavZuK3CMPr vqMoO6HnQVAjyZtzCaZ6 x5V8Mq4ZKE23NL84TF25 vSXxo9T9mZA6I1Xh RYNgivudqwzowFV1ZWIl YAFeyM39Bc6hiUvsFn5t AVHxYGZ8QYDafENyL4Ii zC5zNzKwTJKmCXBx W2WucECwVImmO214ICqv OgM2TNQkyzWtP7BrSGUq hLitUiY2j1M2Tx1SXt84 LO12UF86jCOcf7M5 mIO5L6JnHJIgdvqboixy oOP7AHFiGPEtbN64Dg5o sStsKr3iJAWiPSL3BWUt dSWlT1ObcM9fXyAs HMXeTSBwG4OwsOJeIRec J544ICtmSqH5ALWzudJq M6UrFMDaxXmdDvV0v5F8 Dj6PWUnsqce3Q8Dh PjwvdHI+ZS38JQUrMI87 jTStqZVum0latRq3KxRl LSQxBGP9eRpiBZbcg7Sf KAMgR91xnWTpg8O9 IGNv (more content not included)... Normal [facility] Coding Summary. [id number] Gh0bWw+PGhlYWQ+PE1FV WWgP75zaJEtpN8VW9xOX J2EAEPCQOBQIJ3RHF7cl PD0EGzeI9CtqoEo CwzsjIMnXT10QQn7DZG3 cGclGWxjiE6skTReC0l3 FjEyWM19vB22YCbkQRAv DqW0PnXacyeyeDEg U4erBnCgrWWkGwq+PHRh YmxlIHdpZHRoPScxMDAl YrAbsQdlAB0dRq3dZTNk LWNvbGxhcHNlOiBj a1vyWITfYDpwBA1lqTyk U6KykUA9VGMtl8a1Cm50 dHI+PEJnNUM5pPpwCOck q639LxEcm4srUGE2 ySSdKGwsTQC2Q83cf0K1 UOUuMXMxFUY4hMU5bO4d mChdjwmyK5WyqEOjHvU5 LSE8tQBxkE7woRoz wwkmfH7vGlp+Z87MLR6A VOXDWH9QVot6Q5CvBhmm dHI+ET10WTOvGJ46eIOh iXTdt0xktPi4CnAx NGTyGZR3tZkzSYzlj7Db HAWqE85kmKBjd5P0CIPm dGkyuIJoLoDmdAV7uN7d YDjdmlljt7jlgqdj Ssbwo6nrfk78eN45Q91x MNnvXLKsWYB2FGZuRZAj yMvigc5doJ4cWc2+IDxj f7zgv4sdgTx9MrUw KKZaznFjiQoyFIL6u6Ix Ah14I4VahVlsa7UrFpl9 pr36pGHrr8Z8aQY8LKfu INOfjN7yWVctGvR3 CVSgExQfmK28cBSlUFcw Hv3wbEzuzIiuBP1qXVKw vledJHTimK5nTQLmrLOi uRgyOM3zDVXvnnpo i644ZpGtMRX3GQOssWRa E7XmoP7rVeJcIJUaDMKw L5UcyZNdEHbwB353MSqe QnA6DSWpxyCqT8Sn ICYpxHiwIbS7q1O1Jv5Y l8WngnipFMT9QRceVZFh RcW3VoJjIaH9J7WzHkg9 FDEtyKyrVO6tR5Ep CYHvusvxnuyicQD9IIVd FASvzP54qAEuXWnzVl2x v5R9n690WLVjRWGyrV26 Ri7pjWfwOZEjnNGE mM2uagnay2zbdspmKdHj HFVgWTq5PDi5LIIuzGrr LfMcJBZ5LjI5NEO9jWAq dX5zkMcpbpkxqI2f Oyc+A93cmE5tMWX1CJR5 bpttZNLpgsQqTA94ON87 K4ZlGxgzrLWrpKC+PGRp znArwIqwHZ4yKdPv h1bpe4AjWSoiJ7HqVFOx MHwfLso3GEOjQHC0cCT2 iE2xUUOoCWcex3W1iAO8 O1OwakCqgi4rp2ol SLFdTSyxV83ibLJpd7T0 PDUoiBL3QMNkcCsbMoGp oG49Gjv+NYNojDtkp3Wx Wfcbh0ydx9cvxXi5 IjMwJSIgdmFsaWduPSJ0 m7NrMa83T80gDQhbUCTr XFDvNCYwYEDmdRcwmn2m cG2jZn9+PGNvbCB3 zXU2tG8bOMAgDjA2GJno D941GuAlnSUeUbcss2vk n9pduFj4YkLhQCIlvcAp iTlsICK1t3QjYy83 W34dHXgpFFAzDQOjYMBc GHRqcAoxle1hyJ1hKt9+ CN2fw4iisz61sM94tUS+ IOWyHUF2rXbzQIhm XENkjN2jEVixNqM8QXFs RsXiiT42qBIyGRtuMn6u pDyxcApuKV6dLUVcxvof s079YqBvk1tvVLXv kZDgRVyfEAA8K51td2X2 TGNkOVDfFZM9cKT6zN9z bGlnbjogbGVmdDsgdmVy rCxpGQpyZEumS705 IHRvcDsnPlBhdGllbnQg GbTzZPa2Z6HzDbj0AKLv dRbzNS2yjVPvEAgzYt2j yIffaQuzXN7mNCCe yscda878VcTwi6wvSXQn tVHwOTvqZCQ8Q31ta1S9 XTVbOSGdZNQ9rOI0eT7w bGlnbjogbGVmdDsg bmCidCyuRTejBBkhC004 IHRvcDsnPkJpcnRoIERh dDX5NH20DV93zRLbj4L3 tRH4Q9KrGXAjtrac shmhdPK5VRWwQENrpQ92 Ug8ymWfmIt2tAVYaKFA1 QWJzhLAnG7OfgO5nGlWa FFAfRQWkJ0NfbYYo ATnsK246GWptEjK3JBDk wxCaV0DyGDLdfGqaDnK3 b1D5Xe1XE7H9NN50BH36 jDUuk9R8oGF7O0Qp FUMixuexvkzmlXI4GVEm PCLuqA46Uy0tuDjfBb1m DYAnWHI9OUCfkNDdU3Ps qR7nGgPcMLOnNSUc Z6KwiSElCNmgL790ITkg GzG6FCIkppPxX7IxCJEn zOtoTfL0d5H1Qq1HPEs1 CD06GS49aGMog7B0 xVP9S2JkXFIvnxqzpgra hIV0QRGwPWCfqM51Zq6g wWfqXn3fRGEzEMR9CPMc oVTaT0ZpbL7oGdNu IJZoBOCbT2HobUNnTBxm U517APnrGfW2JBGkqeCi S9QqSHNpnShlUlJ3s7S8 Mg4OQGYtLN81MXH2 jDW7RK33FA70E7RhMyzl dGFibGU+PHRhYmxlIHdp ZHRoPScxMDAlJyBzdHls UB2uTh8mHYUtKAMx tXztiLNxEgAiv9arVUWd QCudOH3gpGolE0VnrKH8 AEHdm9i0Wv59D08qG8Zq dXA+JSMhvHL4mOR6 xC9lUwEeFlX0YFaqK096 EoQilQHbQqdaq3mqw5pn gUr6AaC5VCObolWflOwx SYF4r5VaEf12T25e IHdpZHRoPSIxNSUiIHZh qWqafl3yzS4fQg7+PGNv pNL0bAV3bO9iVjFdCeL1 QPqzN453RrWjwYKm Mjhbz6ngs4bhfVw8BfXc PNVlqcVusKlrLNE0m3Hi Ix96K6YysFnij5IsNdb7 li83wGAvv3V6tFZ8 F2IoOATsaymquNBazGdo CZ0jROYpfbmdTTSlaA4f YFEoV4s3BoDrNkZ7GNsz T9OpntU3ZHPugYDe VNtmZBN3U82jl2W7JRPg UJRzAYM4zRI2xI9kpTuv bjogbGVmdDsgdmVydGlj SEjyAGcoS704POCg vYvnZKTbdX4iNNJdaCAj tCvvFB1hSSBesywuBpoN JAMeZPsQOKUNKP66GE20 yZLrf4E2kNL4D9Vf TZCpuekrxtadnDD7VHNs BSLmsO92zJPzREvoHt2n g9Y9m569LGGxWEVysA97 Gj7juYaaQDKhkWTX nB5vinmqo9ukhifyRsNl YDSsAUt2NFm4UJMnoEnx MeOjSJA2MvH7APT5sWWt qD6ptFkewnbdbY7y Oyc+QOXpEytoHBk9XOry dGQ+TFOdLCR3iMydHWch FATobV6mRREtY7y5FgAo FgJ0MGipT4TkXTHx hufmZi76fT2oByEsQdH7 SIffY5LaxwX5IZUijUAe SDnyTFA7O65ml6W0LHRp VKHuYNZ1uPB4bC9s bGlnbjogbGVmdDsgdmVy pRulXYiyVBjyM502PSFg aWadWuFyJYnaUKCjCO05 DK53wSGcn2H4jYF2 F8RgETBmyegycbslbKF6 SNFeBESlhL83lGVyTUnu Xv6sc8M7d483OEIsVDTk rX99Nn6ihDvmYKFw mPFJzF2dhnjuo5koxbui AmClNKIiOFk5JZj5VYTl lArhZzGqCVA9IgU2CZD8 vNSiaU2xvYsztswo wV5mYci+BfBqOAkgPE88 YQ47xROtu7U5gQA2F2Rm TSIncbvhymqgsOX7RKCm FZByzU88iQKsXUut Kv0xv3W1y197OYIlPEBp wL81Wt6crCpxWPBafRXC uJ8cpcxbw7jvsptnSgPc LRRlHZi8EYm3QFJe lKapOeIqGJE7ToC1OAJ7 cTRqcH0srMyeooqzdC2b Oyc+PYRgIMQgx8Wkg3Xq JY44ME29J3JcUbrl dGFibGU+PHRhYmxlIHdp ZHRoPScxMDAlJyBzdHls NO6rOf7kBOAzUFDzdEyz eUDeSiAgg6rfKFLv IDppQK7rqMyfQ5TeiOC7 RYLdh7s7Yp62Z30kU9Jn dXA+ITZluHN2kND8nJ5k IeTmQwU3MFzgA242 UyDhvVSwNmeii0prx5dy iUf6LqQpBUKgneXvfAjb SOF2t0OnXo60I61fKTsq ZHRoPSIyMCUiIHZh dPufio3qjD3sWm7+PGNv pBQ2cIH8mM0gVlOiFrS3 OKmhB246KeJwnXJbHbft T68uA9MzyEP+PHRy Quf0DGOuzMizHS9ipXLb TRemRg7mCZA5AoSgHkLp EXvdJ7GtABOakzltcwyz zLK1PLRjFFWtbB72 Vh4xbIpfCa8cSAXvYVP2 DUXozZFlO7EhiK8rHvCh OWOzLSMcV3SvzJQcJTmy V781XUbmQcM2DRLa lxFfZ4XxGHDymHtsHwB4 v4O5Xz1OlWcasVZnPK1b QuClSCh1Q9JbRvi8DTVo cHxwDR1qvNPvJDoq Qc3bqXqqwOurGC3vEKMk skshg420KcHsq6ftFOBo zVQmLTgeUFA4V75lg6V6 DREiANZhXMG7nWG2 lP5udJllpwzhpPLjbAvp ylJdyLbxPCalMFrtV382 VRLsgNtlMlMYCqr3I6Wf Evp4EHAyeGdqAS6u sCAxJHksLf6vtDfipIkc DG5oKMUnrcfwd245QlMa w8qqNCNxeRYvCMksGQV5 Q16vn5W4MZVbMOOz HAX6rAL7fL6reZbxijcq bGVmdDsgdmVydGljYWwt IZqaK548WSHxrMjaEw0Y Qnv5T9JcJzf3BMOp cWhrGH1spECjCZsyRb2a eBangQsgPA9pGQOkfdok s634SgVgv8isDNChkTPb WMbyINQ4N13ew7S5 ZNPsBNFsDYW2kBN9wO3f bGlnbjogbGVmdDsgdmVy nHzmVDiyXCswL954YZSo cDsnPlBheWVyOjwv dGQ+XC28zs88W4SnDfqi Lpj4QCJzAGK7zFW3tD7q KJFdZGqth7K0cSH0K6Ob rmTacw6xo7yxUUMv ZTog (more content not included)... Normal [facility] PAP [id number] 08-15-2021 Cytology report Cyto stain Doc (Cvx/Vag) Note Invalid Interpretation Code [facility] Comment on above: Result Comment: TEST S RESULT FLAG UNITS REF RANGE LAB Clinician Provided Cytology Information Source.............[employer] No. of containers..01 ThinPrep Vial DIAGNOSIS: 01 NEGATIVE FOR INTRAEPITHELIAL LESION OR MALIGNANCY. Specimen adequacy: 01 Satisfactory for evaluation. No endocervical component is identified. Performed by: Byron Engle Director [employer] ([employer]) . 01 Note: Note 01 The [...] <-Panic Low,>-Panic High,A-Abnormal,AA-Critical Abnormal Performed at: [address] [place] [address] [place] Rivear MD, Performed By: #### 1 [id number] #### [facility] [address] [place] [address] HPV 16+18+31+33+35+39+45 +51+52+56+58+59+66+6 8 DNA Probe+sig amp Ql (Cvx) Negative Invalid Interpretation Code Negative [facility] Comment on above: Result Comment: This nucleic acid amplification test detects fourteen high-risk HPV types (16,18,31,33,35,39,45,51,52,56,58,59,66,68) without differentiation. Performed at: [facility] [id number] MD Nicole Manuel Performed at: =G [address] [id number] MD Nicole Manuel Performed By: #### 1 [id number] #### [facility] [address] [place] [address] Insulin Lvlon 08-11-2021 Insulin Qn 24.3 u[IU]/mL Invalid Interpretation Code 2.6-24.9 [facility] Comment on above: Result Comment: Perf ormed at: [facility] [address] [id number] PhD Archie Jha Performed By: #### 1 [id number] #### [facility] [address] [place] [address] Consent for Treatmenton 07-29 Consent for Treatment [id number] #1.00CD:127 Normal [facility] Glu Fastingon 08-10-2021 Glucose [Mass/Vol] 95 mg/dL Normal 55-99 [facility] Comment on above: Performed By: #### 1 [id number] #### [facility] [address] [place] [address] Physician Orderon 08-10-2021 Physician Order [id number] 2#1.00CD:127 Normal [facility] PAP [id number] 08-09-2021 Collection Technique BRUSH-SPATULA Normal [facility] Comment on above: Performed By: #### 1 [id number] #### [facility] [address] [place] [address] Gynecological Body Site ENDOCERVIX Normal [facility] Comment on above: Performed By: #### 1 [id number] #### [facility] [address] [place] [address] Physician Orderon 08-09-2021 Physician Order [id number] #1.00CD:127 Normal [facility] Gynecology Office/Clinic Not pratik 02-17-2019 [...] History Family history is negative Normal [facility] Comment on above: Result Comment: [...] History Family history is negative Normal [facility] Comment on above: Result Comment: Elec tronically Signed By: Shamika ISAACS, Kaley Wilson\.david\Date and Time Signed: 02/17/19 12:09 EDT Vital Signs Date Time Vital Sign Value Performing Clinician Facility 09-08-2024 08:28-0500 Body mass index (BMI) [Ratio] 35.56 kg/m2 [employer] Work Phone: [facility] Identify 09-08-2024 08:28-0500 Body weight 88.18 kg [employer] Work Phone: [facility] 09-08-2024 08:28-0500 Diastolic blood pressure 90 mm[Hg] [employer] Work Phone: [facility] 09-08-2024 08:28-0500 Systolic blood pressure 132 mm[Hg] Immanuel Yobani DO Work Phone: [facility] 08-27-2024 11:45-0500 Body mass index (BMI) [Ratio] 35.08 kg/m2 Immanuel Yobani DO Work Phone: [facility] 08-27-2024 11:45-0500 Body weight 87 kg Immanuel Yobani DO Work Phone: [facility] 08-27-2024 11:45-0500 Diastolic blood pressure 82 mm[Hg] Immanuel Yobani DO Work Phone: [facility] 08-27-2024 11:45-0500 Systolic blood pressure 122 mm[Hg] Immanuel Yobani DO Work Phone: [facility] 08-12-2024 11:08-0500 Body mass index (BMI) [Ratio] 34.93 kg/m2 Immanuel Yobani DO Work Phone: [facility] 08-12-2024 11:08-0500 Body weight 86.64 kg Immanuel Yobani DO Work Phone: [facility] 08-12-2024 11:08-0500 Diastolic blood pressure 80 mm[Hg] Immanuel Yobani DO Work Phone: [facility] 08-12-2024 11:08-0500 Systolic blood pressure 120 mm[Hg] Immanuel Yobani DO Work Phone: [facility] 07-20-2024 11:00-0500 Body mass index (BMI) [Ratio] 34.39 kg/m2 Immanuel Yobani DO Work Phone: [facility] 07-20-2024 11:00-0500 Body weight 85.28 kg Immaneul Yobani DO Work Phone: [facility] 07-20-2024 11:00-0500 Diastolic blood pressure 76 mm[Hg] Immanuel Yobani DO Work Phone: [facility] 07-20-2024 11:00-0500 Systolic blood pressure 122 mm[Hg] Immanuel Yobani DO Work Phone: [facility] 06-22-2024 14:31-0500 Body mass index (BMI) [Ratio] 34.2 kg/m2 Immanuel Yobani DO Work Phone: [facility] 06-22-2024 14:31-0500 Body weight 84.82 kg Immanuel Yobani DO Work Phone: [facility] 06-22-2024 14:31-0500 Diastolic blood pressure 78 mm[Hg] Immanuel Yobani DO Work Phone: [facility] 06-22-2024 14:31-0500 Systolic blood pressure 124 mm[Hg] Immanuel Yobani DO Work Phone: [facility] 06-15-2024 10:27-0500 Body weight 84.82 kg Cele Rodriguez MD Work Phone: [facility] 06-15-2024 10:27-0500 Diastolic blood pressure 88 mm[Hg] Cele Rodriguez MD Work Phone: [facility] 06-15-2024 10:27-0500 Heart rate 99 /min Cele Rodriguez MD Work Phone: [facility] 06-15-2024 10:27-0500 Respiratory rate 18 /min Cele Rodriguez MD Work Phone: [facility] 06-15-2024 10:27-0500 Systolic blood pressure 137 mm[Hg] Cele Rodriguez MD Work Phone: [facility] 05-25-2024 11:46-0400 Body mass index (BMI) [Ratio] 33.84 kg/m2 Immanuel Yobani DO Work Phone: [facility] 05-25-2024 11:46-0400 Body weight 83.92 kg Immanuel Yobani DO Work Phone: [facility] 05-25-2024 11:46-0400 Diastolic blood pressure 74 mm[Hg] Immanuel Yobani DO Work Phone: [facility] 05-25-2024 11:46-0400 Systolic blood pressure 118 mm[Hg] Immanuel Yobani DO Work Phone: [facility] 04-27-2024 10:35-0400 Body mass index (BMI) [Ratio] 33.75 kg/m2 Immanuel Yobani DO Work Phone: [facility] 04-27-2024 10:35-0400 Body weight 83.69 kg Immanuel Yobani DO Work Phone: [facility] 04-27-2024 10:35-0400 Diastolic blood pressure 76 mm[Hg] Immanuel Yobani DO Work Phone: [facility] 04-27-2024 10:35-0400 Systolic blood pressure 122 mm[Hg] Immanuel Yobani DO Work Phone: [facility] 03-27-2024 10:27-0400 Body mass index (BMI) [Ratio] 34.53 kg/m2 [facility] 03-27-2024 10:27-0400 Body weight 85.64 kg [facility] 03-27-2024 10:27-0400 Diastolic blood pressure 70 mm[Hg] [facility] Nurse [facility] 03-27-2024 10:27-0400 Systolic blood pressure 120 mm[Hg] [facility] Nurse [facility] 01-02-2024 09:15-0400 Body height 157.48 cm [facility] 01-02-2024 09:15-0400 Body mass index (BMI) [Ratio] 33.9 kg/m2 [facility] 01-02-2024 09:15-0400 Body temperature 100.2 [degF] [facility] 01-02-2024 09:15-0400 Body weight 84.08 kg [facility] 01-02-2024 09:15-0400 Heart rate 115 /min [facility] 01-02-2024 09:15-0400 Respiratory rate 18 /min [facility] 01-02-2024 09:15-0400 SaO2% (BldA) [Mass fraction] 99 % [facility] Encounters Encounter Date Encounter Type Care Provider [...] Result Encounter Immanuel Yobani DO Work Phone: [facility] External Department Unsolicited Start: 07-20-2024 End: 07-20-2024 Bamboo flowsheet Immanuel Yobani DO Work Phone: [facility] Start: 07-20-2024 End: 07-20-2024 Bamboo flowsheet Immanuel Yobani DO Work Phone: [facility] Start: 07-20-2024 End: 07-20-2024 flow sheet Immanuel Yobani DO Work Phone: [facility] Comment on above: 26 weeks gestation o f ; Diabetes mellitus screening; Second trimester ; PCOS (polycystic ovarian syndrome); resulting from in vitro fertilization, antepartum; Gestational diabetes mellitus (GDM), antepartum, gestational diabetes method of control unspecified; Elevated glucose tolerance test Start: 07-20-2024 End: 07-20-2024 ambulatory IMMANUEL YOBANI Not Available Start: 06-22-2024 End: 06-22-2024 Bamboo flowsheet Immanuel Yobani DO Work Phone: [facility] Start: 06-22-2024 End: 06-22-2024 Bamboo flowsheet Immanuel Yobani DO Work Phone: [facility] Start: 06-22-2024 End: 06-22-2024 flow sheet Immanuel Yobani DO Work Phone: [facility] Comment on above: Second trimester pre gnancy; 22 weeks gestation of ; Personal history of cardiac murmur Start: 06-22-2024 End: 06-22-2024 ambulatory IMMANUEL YOBANI Not Available Start: 06-15-2024 End: 06-15-2024 Office consultation new/estab patient 60 min Cele Rodriguez MD Work Phone: [facility] Comment on above: 21 weeks gestation o f (Primary Dx); Chronic hypertension affecting ; In vitro fertilization Start: 06-15-2024 End: 06-15-2024 ambulatory CELE RODRIGUEZ [facility] Start: 05-28-2024 End: 05-30-2024 Clinisync Result Encounter Immanuel Yobani DO Work Phone: [facility] External Department Unsolicited Start: 05-28-2024 End: 05-30-2024 Clinisync Result Encounter Immanuel Yobani DO Work Phone: [facility] External Department Unsolicited Start: 05-27-2024 End: 05-27-2024 Chart abstracting Cele Rodriguez MD Work Phone: [facility] Start: 05-25-2024 End: 05-25-2024 Bamboo flowsheet [...] Not Available Start: 01-02-2024 End: 01-02-2024 ambulatory [facility] Work Phone: Start: 01-02-2024 End: 01-02-2024 Patient encounter procedure [facility] Work Phone: Start: 11-27-2023 End: 11-27-2023 ambulatory IMMAUNEL HILTNO Not Available Start: 07-26-2022 End: 07-27-2022 ambulatory [...] AFP, SERUM, OPEN SPI NA BIFIDA Immanuel Oybani DO Work Phone: Start: 05-25-2024 IGP,APTIMA HPV,AGE [...] malign ant neoplasm of cervix Pap Smear [facility] Start: 06-15-2025 Tobacco Screening Tobacco Screening [facility] Start: 09-22-2024 End: 09-22-2024 Patient encounter procedure 09/22/2024 9:20 AM EST Routine [facility] [address] [place] [address] Immanuel Hilton, DO [address] [place] [address] [facility] Start: 09-08-2024 End: 09-08-2025 Alanine aminotransferase [Enzymatic activity/volume] in Serum or Plasma ALT Lab Routine induced hypertension, antepartum Expected: 09/08/2024 (Approximate), Expires: 09/08/2025 [facility] Comment on above: Expected: 09/08/2024 (Approximate), Expires: 09/08/2025 Start: 09-08-2024 End: 09-08-2025 Aspartate aminotransferase [Enzymatic activity/volume] in Serum or Plasma AST Lab Routine induced hypertension, antepartum Expected: 09/08/2024 (Approximate), Expires: 09/08/2025 [facility] Comment on above: Expected: 09/08/2024 (Approximate), Expires: 09/08/2025 Start: 09-08-2024 End: 09-08-2025 CBC W Auto Differential panel - Blood CBC and differential Lab Routine induced hypertension, antepartum Expected: 09/08/2024 (Approximate), Expires: 09/08/2025 [facility] Comment on above: Expected: 09/08/2024 (Approximate), Expires: 09/08/2025 Start: 09-08-2024 End: 09-08-2025 Creatinine [Mass/volume] in Serum or Plasma Creatinine Lab Routine induced hypertension, antepartum Expected: 09/08/2024 (Approximate), Expires: 09/08/2025 [facility] Work Phone: Comment on above: Expected: 09/08/2024 (Approximate), Expires: 09/08/2025 Start: 09-08-2024 End: 09-08-2025 Lactate dehydrogenase [Enzymatic activity/volume] in Serum or Plasma by Lactate to pyruvate reaction Lactate dehydrogenase Lab Routine induced hypertension, antepartum Expected: 09/08/2024, Expires: 09/08/2025 [facility] Comment on above: Expected: 09/08/2024 , Expires: 09/08/2025 Start: 09-08-2024 End: 09-08-2025 Protein, urine, 24 hour Protein, urine, 24 hour Lab Routine induced hypertension, antepartum Expected: 09/08/2024 (Approximate), Expires: 09/08/2025 [facility] Comment on above: Expected: 09/08/2024 (Approximate), Expires: [...] AM EST Routine [facility] [address] [place] [id number] Immanuel Hilton, DO [address] [place], [place] [id number] [facility] Start: 08-27-2024 End: 08-27-2024 Professional / ancillary services management 08/27/2024 11:00 AM EST Ancillary Procedure [facility] [address] [place] [id number] [facility] Start: 08-12-2024 End: 08-12-2025 [...] mellitus screening Expected: 07/20/2024 (Approximate), Expires: 07/20/2025 [facility] Comment on above: Expected: 07/20/2024 (Approximate), Expires: 07/20/2025 Start: 07-20-2024 End: 07-20-2025 US for US OB SCAN FOR GROWTH Imaging Routine PCOS (polycystic ovarian syndrome) resulting from in vitro fertilization, antepartum Expected: 07/20/2024 (Approximate), Expires: 07/20/2025 [facility] Comment on above: Expected: 07/20/2024 (Approximate), Expires: 07/20/2025 Start: 07-20-2024 End: 07-20-2024 Patient encounter procedure [facility] Comment on above: 26 weeks gestation o f ; Diabetes mellitus screening Start: 06-22-2024 End: 06-22-2025 ECG 12 lead ECG 12 lead ECG Routine Personal history of cardiac murmur Expected: 06/22/2024 (Approximate), Expires: 06/22/2025 [facility] Work Phone: Comment on above: Expected: 06/22/2024 (Approximate), Expires: 06/22/2025 Start: 06-22-2024 End: 06-22-2024 Patient encounter procedure [facility] Comment on above: Arrived Start: 06-15-2024 End: 06-15-2024 Patient encounter procedure [facility] Start: 05-25-2024 End: 11-23-2024 Alpha fetoprotein, maternal [...] Procedure [facility] [address] [place] [id number] [facility] Start: 04-27-2024 End: 04-27-2025 US Pelvis transvaginal US OB transvaginal Imaging Routine Encounter for screening for cervical length Expected: 04/27/2024 (Approximate), Expires: 04/27/2025 [facility] Work Phone: Comment on above: Expected: 04/27/2024 (Approximate), Expires: 04/27/2025 Start: 04-27-2024 End: 04-27-2024 Patient encounter procedure 04/27/2024 10:20 AM EDT Routine [facility] [address] [place] [id number] Immanuel Hilton, DO [address] [place] [address] [facility] Start: 03-29-2024 COVID-19 Vaccine ( season) COVID-19 Vaccine ( season) [facility] Start: 03-29-2024 Influenza vaccination N [facility] Start: 03-27-2024 End: 03-27-2025 ABO/Rh ABO/Rh Lab Routine Missed menses Expected: 03/27/2024 (Approximate), Expires: 03/27/2025 [facility] Comment on above: Expected: 03/27/2024 (Approximate), Expires: 03/27/2025 Start: 03-27-2024 End: 03-27-2025 Blood type and Indirect antibody screen panel - Blood Type and screen Lab Routine Missed menses Expected: 03/27/2024 (Approximate), Expires: 03/27/2025 [facility] Work Phone: Comment on above: Expected: 03/27/2024 (Approximate), Expires: 03/27/2025 Start: 03-27-2024 End: 03-27-2025 US Pelvis transvaginal US OB transvaginal Imaging Routine Missed menses Expected: 03/27/2024 (Approximate), Expires: 03/27/2025 [facility] Comment on above: Expected: 03/27/2024 (Approximate), Expires: 03/27/2025 Start: 2020 Screening for malign ant neoplasm of cervix Pap Smear [facility] Start: 2018 DTaP,Tdap and Td Vac cines (1 - Tdap) DTaP,Tdap and Td Vaccines (1 - Tdap) [facility] Start: 2017 Adult BMI Screening Adult BMI Screen ing [facility] Start: 2011 Depression Screening Depression Scre ening [facility] Start: 2011 Tobacco Screening Tobacco Screening [facility] Start: 1999 Screening for Chlamy leoncio trachomatis Chlamydia Screening [facility] Bacteria identified in Urine by Culture Urine culture Microbiology Routine Missed menses Ordered: 03/27/2024 [facility] Comment on above: Ordered: 03/27/2024 CBC W Auto Different ial panel - Blood CBC and differential Lab Routine Missed menses Ordered: 03/27/2024 [facility] Comment on above: Ordered: 03/27/2024 CHLAMYDIA TRACHOMATI S (GENITO/STI) CHLAMYDIA TRACHOMATIS (GENITO/STI) Lab Routine STD exposure Ordered: 05/25/2024 [facility] Comment on above: Ordered: 05/25/2024 Cytology Cervical or vaginal smear or scraping study Pap Smear Pathology and Cytology Routine Well woman exam with routine gynecological exam Ordered: 05/25/2024 [facility] Work Phone: Comment on above: Ordered: 05/25/2024 Hemoglobin A1c/Hemoglobin.total in Blood Hemoglobin A1c Lab Routine Missed menses Ordered: 03/27/2024 [facility] Comment on above: Ordered: 03/27/2024 Hepatitis B virus love rface Ag [Presence] in Serum or Plasma by Immunoassay Hepatitis B surface antigen Lab Routine Missed menses Ordered: 03/27/2024 [facility] Comment on above: Ordered: 03/27/2024 Hepatitis C virus Ab [Presence] in Serum or Plasma by Immunoassay Hepatitis C antibody Lab Routine Missed menses Ordered: 03/27/2024 [facility] Comment on above: Ordered: 03/27/2024 HIV-1/HIV-2 antigen/antibody combination immunoassay HIV-1 and HIV-2 antibodies Lab Routine Missed menses Ordered: 03/27/2024 [facility] Comment on above: Ordered: 03/27/2024 Neisseria gonorrhoea e DNA [Presence] in Unspecified specimen by BUCK with probe detection Neisseria gonorrhea DNA probe, direct Lab Routine STD exposure Ordered: 05/25/2024 [facility] Comment on above: Ordered: 05/25/2024 Reagin Ab [Presence] in Serum by RPR RPR Lab Routine Missed menses Ordered: 03/27/2024 [facility] Comment on above: Ordered: 03/27/2024 Rubella antibody, IgG Rubella an tibody, IgG Lab Routine Missed menses Ordered: 03/27/2024 [facility] Comment on above: Ordered: 03/27/2024 SURESWAB(R) ADVANCED VAGINITIS PLUS, TMA SURESWAB(R) ADVANCED VAGINITIS PLUS, TMA Pathology and Cytology Routine Vaginal discharge Ordered: 05/25/2024 [facility] Comment on above: Ordered: 05/25/2024 Payers Date Payer Category Payer Commercial Managed C are - PPO [employer] [id number] [facility] er [id number] 2023 Unknown [id number] 2021 Private Health Insurance [id number] 2021 Unknown [id number]. 1.13.693.2. [id number] 2021 Unknown [id number] 1999 Unknown [id number] 2.16.840.1.443874.3.579.2. 593 1999 Unknown [id number] 2.16.840.1.130633.3.579.2. 593 1999 Unknown [id number] 2.16.840.1.003374.3.579.2. 593 1999 Unknown [id number] 2.16.840.1.880122.3.579.2. 593 1999 Unknown [id number] 2.16.840.1.555847.3.579.2. 593 1999 Unknown [id number] 2.16.840.1.017879.3.579.2. 593 1999 Unknown [id number] 2.16.840.1.904619.3.579.2. 593 1999 Unknown [id number] 2.16.840.1.268313.3.579.2. 1286 1999 Unknown [id number] 2.16.840.1.665226.3.579.2. 1286 1999 Unknown [id number] 2.16.840.1.935026.3.579.2. 1259 1999 Unknown [id number] 2.16.840.1.582670.3.579.2. 1259 1999 Unknown [id number] 2.16.840.1.039411.3.579.2. 1259 1999 Unknown [id number] 2.16.840.1.503921.3.579.2. 1259 1999 Unknown [id number] 2.16.840.1.095025.3.579.2. 125 1999 Unknown [id number] 2.16.840.1.605152.3.579.2. 1259 1999 Unknown [id number] 2.16.840.1.915188.3.579.2. 1258 1999 Unknown [id number] 2.16.840.1.899576.3.579.2. 1259 1999 Unknown [id number] 2.16.840.1.152909.3.579.2. 1258 1999 Unknown [id number] 2.16.840.1.818496.3.579.2. 1258 1999 Unknown [id number] 2.16.840.1.752580.3.579.2. 1259 1959 Private Health Insurance [id number] 1960 Unknown [id number] Social History Date Type Detail Facility Tobacco smoking stat us NHIS Unknown if ever smoked [facility] Work Phone: Start: 2000 Sex Assigned At Female F [facility] Start: 01-02-2024 End: 05-27-2024 Tobacco smoking status NHIS Never smoked tobacco [facility] Start: 01-02-2024 End: 05-27-2024 Tobacco use and exposure Smokeless tobacco non-user [facility] Start: 04-27-2024 End: 08-27-2024 Alcoholic beverage intake Ex-drinker (finding) [facility] Start: 01-02-2024 End: 06-15-2024 History of Social function [facility] Start: 01-02-2024 End: 06-15-2024 Tobacco use panel [facility] Start: 01-29-2024 [facility] Start: 11-26-2023 Gender identity Identifies as female gender (finding) [facility] Start: 05-27-2024 End: 06-15-2024 Alcoholic beverage intake Lifetime non-drinker (finding) [facility] Start: 1999 Sex assigned at Not on file P [facility] Start: 05-26-2024 Sex Female (finding) [facility] Medical Equipment Procedure Code Equipment Code Equipment Origin al Text Equipment Identifier Dates 1 strip by In Vi tro route Daily Use in the morning prior to breakfast, 1 hour after each meal for a total of 4times daily. [id number] Start: 07-20-2024 End: 08-19-2024 1 each by In Vit ro route Daily Use to check FSBS four times daily [id number] Start: 07-20-2024 End: 08-19-2024 Goals Date Patient [...] apply, As needed Blood Glucose Monitoring Suppl ([employer] (PVT) Glucometer) w/Device kit 1 kit, Does not apply, Daily, Use four times daily to check FSBS. In the morning prior to breakfast & 1 hour after each meal for a total of 4times daily. Continuous Glucose Equipment Validation Specialist (FreeStyle Jenise 3 Ilion) device 1 each, Does not apply, Every 14 days Continuous Glucose Sensor (FreeStyle Jenise 3 Sensor) misc 1 each, Does not apply, Every 14 days Multiple Vitamin (multivitamin) tablet 1 tablet, Daily terconazole (Terazol 7) 0.4 % vaginal cream 1 applicator, Vaginal, Nightly ALLERGIES Allergies Allergen Reactions Gonzales Flavor [Gonzales Oil] Latex Hives, Itching, Rash and Swelling [...] nursing note reviewed. Exam conducted with a able bodied watchman present. Vitals: Estimated body mass index is [...] Immanuel Hilton DO documented in this encounter [facility] 08-27-2024 History of Present illness Narrative Reason [...] apply, As needed Blood Glucose Monitoring Suppl ([employer] Glucometer) w/Device kit 1 kit, Does not apply, Daily, Use four times daily to check FSBS. In the morning prior to breakfast & 1 hour after each meal for a total of 4times daily. Continuous Glucose Equipment Validation Specialist (FreeStyle Jenise 3 Ilion) device 1 each, Does not apply, Every 14 days Continuous Glucose Sensor (FreeStyle Jenise 3 Sensor) misc 1 each, Does not apply, Every 14 days metroNIDAZOLE (FLAGYL) 500 mg, Oral, 2 times daily, Do not drink alcohol while taking this medication Multiple Vitamin (multivitamin) tablet 1 tablet, Daily ALLERGIES Allergies Allergen Reactions Gonzales Flavor [Gonzales Oil] Latex Hives, Itching, Rash and Swelling [...] nursing note reviewed. Exam conducted with a able bodied watchman present. Vitals: Estimated body mass index is [...] Immanuel Hilton DO documented in this encounter [facility] 08-12-2024 History of Present illness Narrative Reason [...] 1 tablet, Daily ALLERGIES Allergies Allergen Reactions Gonzales Flavor [Gonzales Oil] Latex Hives, Itching, Rash and Swelling [...] nursing note reviewed. Exam conducted with a able bodied watchman present. Vitals: Estimated body mass index is [...] Immanuel Hilton DO documented in this encounter [facility] 07-20-2024 History of Present illness Narrative Reason [...] mg, Oral, Daily ALLERGIES Allergies Allergen Reactions Gonzales Flavor [Gonzales Oil] Latex Hives, Itching, Rash and Swelling [...] Immanuel Hilton DO documented in this encounter [facility] 06-22-2024 History of Present illness Narrative Reason [...] mg, Oral, Daily ALLERGIES Allergies Allergen Reactions Gonzales Flavor [Gonzales Oil] Latex Hives, Itching, Rash and Swelling [...] Immanuel Hilton DO documented in this encounter [facility] 06-15-2024 History of Present illness Narrative [facility] [...] Allergies: Allergies Allergen Reactions Latex, Natural Rubber Gonzales Meds: Prior to Admission medications Medication Sig [...] other morbidities. Based on the available evidence, [facility] recommends treatment with antihypertensive therapy [...] preeclampsia prevention as is recommended by the [employer] [employer] Committee Opinion No. 743. [...] Cele Rodriguez MD, FACOG (she/hers) Maternal- Medicine [facility] [address] [place] [address] This document was created with [employer] technology. Though I make every effort to review the dictation as it is transcribed, on occasion the spoken word can be misinterpreted by the technology leading to inappropriate words, phrases, or sentences. This note is addressed to the requesting provider as a consultation for clinical guidance. Specific medical abbreviations are occasionally used and those are generally approved by the [place]?[employer] of?Obstetrics and?Gynecology?as well as?Kenzie s abbreviations. The above plan of care was based solely on the diagnoses for which a consultation was requested. ?More frequent testing may be indicated based on her other medical/obstetrical conditions. The management of other or medical conditions is beyond the scope of requested consultation and will continue to be followed by the primary acquisition marketing manager or primary care provider. Note to patient: [...] IVF Have you been seen here at [facility] in a previous ? N/a Recent ER visits or hospitalizations? no Bring blood sugar log or meter with you today? (Please bring them with you for every visit at [facility]) no Flu vaccine (May-September)? no Any concerns that you would like me to mention to the provider today? no documented in this encounter [facility] 05-25-2024 History of Present illness Narrative Reason [...] mg, Oral, Daily ALLERGIES Allergies Allergen Reactions Gonzales Flavor [Gonzales Oil] Latex Hives, Itching, Rash and Swelling [...] nursing note reviewed. Exam conducted with a able bodied watchman present. Vitals: Estimated body mass index is [...] Immanuel Hilton DO documented in this encounter [facility] 04-27-2024 History of Present illness Narrative Reason [...] mg, Oral, Daily ALLERGIES Allergies Allergen Reactions Gonzales Flavor [Gonzales Oil] Latex Hives, Itching, Rash and Swelling [...] nursing note reviewed. Exam conducted with a able bodied watchman present. Vitals: Estimated body mass index is [...] with IVF . Patient to also have [facility] referral for IVF and Level [...] undercooked meat, and stay away from [facility]. Patient has been consulted regarding any further do's and don'ts of . Patient voiced understanding and all questions and concerns were answered. Orders Placed This Encounter Procedures POCT urinalysis dipstick manually resulted Follow Up: Patient is to return in 4 weeks for routine OB appointment. Documented by Espearnza Peter LPN on behalf of: Immanuel Hilton DO documented in this encounter [facility] 03-27-2024 History of Present illness Narrative Reason [...] Procedure Laterality Date TONSILLECTOMY Allergies Allergen Reactions Gonzales Flavor [Gonzales Oil] Latex Hives, Itching, Rash and Swelling [...] undercooked meat, and stay away from [facility]. Patient has also been advised to [...] Jo-Ann Motta LPN documented in this encounter [facility] Healthcare Evaluation note No assessment inform ation available [facility] Work [...] SystemInstructionsNot on filedocumented in this encounter [facility] SystemInstructionsNot on filedocumented in this encounter [facility] SystemInstructions* Attachments The following attachments cannot be sent through Care Everywhere. * Preeclampsia ([place]) [facility] Summary Purpose Family History Relationship Condition Age at Onset Recorded Date/T yosi family member Unknown Heart disease Unknown Advance Directives Advance Directive Response Recorded Date/ Time Advance Directives No January 01 9:07am Chief Complaint and Reason for Visit Chief Complaint Congestion Additional Source Comments INFORMATION SOURCE (unrecogn ized section and content) DATE CREATED AUTHOR 03/06/2019 [facility] DATE CREATED AUTHOR AUTHOR'S ORGANIZ ATION [facility] DATE CREATED AUTHOR AUTHOR'S ORGANIZ ATION 12/01/2022 [facility] DATE CREATED AUTHOR AUTHOR'S ORGANIZ ATION 06/17/2024 [facility] DATE CREATED AUTHOR AUTHOR'S ORGANIZ ATION 09/09/2024 [facility] Care Teams (unrecognized sec tion and content) Team Status: Active Member Role Status Dates Damon Stover DO Primary Care Provider Active Team Status: Inactive Member Role Status Dates Damon Stover DO Primary Care Provider Active Start: January 02, 2024 End: January 02, 2024 Teresa Sanchez APRN Attending Provider Active S tart: January 02, 2024 End: January 02, 2024 [facility] Nurse Supervisor Relationship Specialty Start Date End Date Akila Grant MD [address] [place] [facility] [place] [address] PCP - General Family Medicine 11/27/23 [facility] Nurse Supervisor Relationship Specialty Start Date End Date Akila Grant MD [address] [place] [facility] [place] [address] PCP - General Family Medicine 11/27/23 [facility] Nurse Supervisor Relationship Specialty Start Date End Date Akila Grant MD [address] [place] [facility] [place] [address] PCP - General Family Medicine 11/27/23 [facility] Nurse Supervisor Relationship Specialty Start Date End Date Akila Grant MD [address] [place] [facility] [place] [address] PCP - General Family Medicine 11/27/23 [facility] Nurse Supervisor Relationship Specialty Start Date End Date Akila Grant MD [address] [place] [facility] [place] [address] PCP - General Family Medicine 11/27/23 [facility] Nurse Supervisor Relationship Specialty Start Date End Date Akila Grant MD [address] [place] [facility] [place] [address] PCP - General Family Medicine 11/27/23 [facility] Nurse Supervisor Relationship Specialty Start Date End Date Akila Grant MD [address] [place] [facility] [place] [address] PCP - General Family Medicine 11/27/23 [facility] Nurse Supervisor Relationship Specialty Start Date End Date Akila Grant MD [address] [facility] [place] [address] PCP - General Family Medicine 11/27/23 [facility] Nurse Supervisor Relationship Specialty Start Date End Date Akila Grant MD [address] [facility] [place] [address] PCP - General Family Medicine 11/27/23 [facility] Nurse Supervisor Relationship Specialty Start Date End Date Akila Grant MD [address] [facility] [place] [address] PCP - General Family Medicine 11/27/23 [facility] Nurse Supervisor Relationship Specialty Start Date End Date Akila Grant MD [address] [facility] [place] [address] PCP - General Family Medicine 11/27/23 [facility] Nurse Supervisor Relationship Specialty Start Date End Date Akila Grant MD [address] [facility] [place] [address] PCP - General Family Medicine 11/27/23 [facility] Nurse Supervisor Relationship Specialty Start Date End Date Akila Grant MD [address] [facility] [place] [address] PCP - General Family Medicine 11/27/23 [facility] Nurse Supervisor Relationship Specialty Start Date End Date Akila Grant MD [address] [facility] [place] [address] PCP - General Family Medicine 11/27/23 [facility] Nurse Supervisor Relationship Specialty Start Date End Date Akila Grant MD [address] [place] [address] PCP - General Family Medicine 11/27/23 [facility] Nurse Supervisor Relationship Specialty Start Date End Date Akila Grant MD [address] [place] [id number] PCP - General Family Medicine 11/27/23 Goals [...] BE BASED ON THE PRIMARY CLINICAL RECORDS. [employer] [facility]. provides no warranty or guarantee of the accuracy or completeness of information in this document.
--- NOTE | 2024-09-20 13:47 | PC.NURSE ---
pt arrives to unit from ER waiting room at 1316 with c/o vomiting since 0300 this am. pt has not been able to keep any food or drink down since 1999 yesterday after her husbands diaper constitution party. pt states she tried to take Zofran however she swallowed it and puked it right back up this am. pt states she feels movement and denies cramping or contractions that she knows of. pts states that the only time she feels a cramp is when its in her back on the right side then goes to her stomach immediately before she vomits. pt has been vomiting green and some orange from sips of water and Gatorade. pt denies any other s/s no fever, no diarrhea as of yet states as of now her stool is soft and solid. pt is diabetic but has a continuous monitor she wears and her blood glucose has been in the mid 90's until she vomits then it goes up and then back to the 90's once she's done vomiting. pt denies any bleeding,leaking, discharge, states last intercourse was Saturday night.
[2024-09-20 14:31] LABS: Bilirubin Urine SMALL (NEGATIVE); Blood Urine LARGE (NEGATIVE); Clarity Urine SL CLOUDY (CLEAR); Color Urine YELLOW (YELLOW); Glucose Urine UA NEGATIVE (NEGATIVE); Ketones Urine >=80 mg/dL (NEGATIVE); Leukocyte Esterase Urine TRACE (NEGATIVE); Nitrite Urine NEGATIVE (NEGATIVE); Protein Urine 30 mg/dL (NEG/TRACE); Specific Gravity Urine >=1.030 (1.005-1.025); Urobilinogen Urine 0.2 EU/dL (0.2-1.0); pH Urine 5.5 (5.0-9.0)
[2024-09-20 14:35] LABS: Urine Microscopic Indicated YES
[2024-09-20 14:44] LABS: Bacteria Urine SMALL #/HPF (NONE SEEN); Cast Seen? NONE SEEN #/LPF (NONE SEEN); Crystals Seen? None Seen #/HPF (None Seen); Mucus Urine LARGE (NONE SEEN); RBC Urine 0-2 #/HPF (0-2); Squamous Epithelial Cell Urine FEW #/LPF (NONE/RARE); WBC Urine 0-2 #/HPF (NONE SEEN)
[2024-09-20 14:45] LABS: Urine Culture Indicated YES-FRMC
[2024-09-20] MEDS: 0.9 % SODIUM CHLORIDE 1,000 ML 999 ML IV ×2 (14:54→15:59)
[2024-09-20] MEDS: ONDANSETRON PF 4 MG/2 ML VIAL IV (14:54)
[2024-09-20 15:18] VITALS: BP 132/75; PULSE 113
[2024-09-20 15:20] VITALS: TEMP 37.2
== END 2024-09-20 17:35 | disposition home or self-care (01) ==
PROVIDERS: Admitting Provider Obstetrics & Gynecology Gynecology; PCP Family Medicine; Visit Provider Obstetrics & Gynecology Gynecology
DX: O26.893 Other specified pregnancy related conditions, third trimester (principal); O24.419 Gestational diabetes mellitus in pregnancy, unspecified control; R11.10 Vomiting, unspecified; Z3A.35 35 weeks gestation of pregnancy
CPT/HCPCS: 59025; 81001; 87086; 96374; 99285; G0378; G0379; J2405

== ENCOUNTER 2024-09-22 12:10 | Outpatient (REF) | payer OTHER, BC, SELFPAY ==
--- OUTSIDE RECORDS SUMMARY | 2024-09-22 12:22 | XMS_ITS | CCD ---
Author Organization [facility] Care Team Providers Care Account Executive Sales Representative Name Role Phone YOBANI ., DR SMITH [...] Attending Unavailable IMMANUEL HILTON Attending Unavailable IMMANUEL HILTNO Attending Unavailable IMMANUEL HILTON Attending Unavailable IMMANUEL HILTON Attending Unavailable Unavailable Primary Care Provider Unavailabl e Allergies Allergy Classification Reported Allergen(s) Allergy Type Date of Onset Reaction(s) Facility (3 sources) Latex Drug allergy (disorder) 0 hives [facility] (1 source) orange flavor Drug allergy (disorder) 0 [facility] (6 sources) Sheridan - fruit; Translations: [ORANGE] 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 4 anaphylaxis [facility] (20 sources) Latex 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 4 Hives, Itching, Rash, Swelling [facility] (20 sources) orange allergenic extract Drug Allergy 4 [facility] Work Phone: (1 source) [...] mg / clavulanate 125 mg oral tablet (2 sources) Penicillin-class Antibacterial Start: 01-02-2024 take 1 tablet by mouth twice daily Amoxicillin-Pot Clavulanate 875-125 mg tablet Active 1 TAB PO Twice daily 20 January 01, 2024 11:00pm aspirin 81 mg chewable tablet (13 sources) Platelet Aggregation Inhibitor, Nonsteroidal Anti-inflammatory Drug [...] Glucose Monitoring Suppl (D-Care Glucometer) w/Device kit (19 sources) Start: 07-20-2024 End: 07-20-2025 Blood Glucose [...] MCG/0.5ML injection 11/26/2023 03/27/2024 Discontinued Continuous Glucose Load Blocker (FreeStyle Jenise 3 [place]) device (13 sources) Start: 08-20-2024 Continuous Glucose Load Blocker (FreeStyle Jenise 3 [place]) device Indications: Gestational diabetes mellitus (GDM), antepartum, gestational diabetes method of control unspecified , Third trimester 1 each every 14 (fourteen) days 1 each 3 08/20/2024 Active Continuous Glucose Sensor (FreeStyle Jenise 3 Sensor) misc (13 sources) Start: 08-20-2024 Continuous Glucose Sensor (FreeStyle Jenise 3 Sensor) misc Indications: Gestational diabetes mellitus (GDM), antepartum, gestational diabetes method of control unspecified , Third trimester 1 each every 14 (fourteen) days 2 each 3 08/20/2024 Active estradiol 2 mg oral tablet (20 sources) Estrogen Start: 12-31-2023 End: 08-27-2024 take 1 tablet by mouth once daily Estradiol 2 mg tablet Active 2 MG PO Daily January 01, 2024 11:00pm isopropyl alcohol 0.7 ml/ml medicated pad (19 sources) Start: 07-20-2024 Alcohol Swabs (Alcohol Prep Pad) 70 % pads Indications: Gestational diabetes mellitus (GDM), antepartum, gestational diabetes method of control unspecified , Elevated glucose tolerance test Apply 1 Pad topically Daily Use four times daily to check FSBS. 150 each 3 07/20/2024 Active labetalol hydrochloride 100 mg oral tablet (20 sources) beta-Adrenergic Kyle Start: 01-02-2024 End: 09-08-2025 take 1 tablet by mouth in the morning labetalol (Normodyne) 100 MG tablet Indications: induced hypertension, antepartum Take 1 tablet (100 mg) by mouth in the morning and 1 tablet (100 mg) before bedtime. 60 tablet 11 09/08/2024 09/08/2025 Active Start: 11-29-2023 End: 08-27-2024 take 1 tablet by mouth once daily Labetalol 200 mg tablet Active 200 MG PO Daily January 01, 2024 11:00pm letrozole 2.5 mg oral tablet (3 sources) Aromatase Inhibitor Start: 12-31-2023 End: 03-27-2024 take 1 tablet by mouth once daily Letrozole 2.5 mg tablet Active 2.5 MG PO Daily January 01, 2024 11:00pm magnesium oxide 400 mg oral tablet (2 [...] Active norethindrone acetate 5 mg oral tablet (3 sources) Start: 12-31-19 End: 03-27-20 take 1 tablet by mouth once daily Norethindrone Acetate 5 mg tablet Active 5 MG PO Daily January 01, 2024 11:00pm ondansetron 4 mg disintegrating oral tablet (6 [...] Daily 01/29/2024 08/12/2024 Discontinued Start: 01-02-2024 take 1 tablet by gt th twice daily Prednisone 10 mg tablet Active 10 MG PO Twice daily January 01, 2024 11:00pm take 1 tablet by gt th in the morning predniSONE (DELTASONE) 5 mg tablet Take 1 tablet (5 mg total) by mouth in the morning. Active no122/iron/folic acid ( MULTI ORAL) (3 sources) take 1 tablet by mouth in the morning no122/iron/folic acid ( MULTI ORAL) Take 1 tablet by mouth in the morning. Active progesterone 50 mg/ml injectable solution (4 sources) Progesterone Start: 03-23-20 End: 04-22-20 progesterone 50 MG/ML injection Indications: Female infertility Inject 0.2 mL (10 mg) into the shoulder, thigh, or buttocks Daily 6 mL 03/23/2024 04/22/2024 Active Start: 01-02-2024 Progesterone M icronized 200 mg capsule Active 200 MG VAGINAL Daily January 01, 2024 11:00pm Start: 01-02-2024 Progesterone M icronized Active 200 MG VAGINAL Daily January 02, 2024 12:00am QUEtiapine 50 mg oral tablet (2 sources) Atypical Antipsychotic Start: 01-02-2024 take 1 tablet by mouth once daily Quetiapine 50 mg tablet Active 50 MG PO Daily January 01, 2024 11:00pm terconazole 4 mg/ml vaginal cream (8 sources) [...] 800 mg before bedtime. 11/26/2023 08/27/2024 Discontinued ibuprofen 600 mg oral tablet [...] [Patient encounter status] Onset: 06-15-2024 04-27-2024 Episodic Other upper respiratory infections (1 source) Pansinusitis; Translations: [Chronic pansinusitis] 01-02-2024 Chronic Residual codes; unclassified (1 source) 21 weeks [...] Test Name Value Interpretation Reference Range Facility Laboratory - Chemistry and C hemistry - challengeon 09-20-2024 Bilirubin Ql (U) SMALL Abnormal NEGATIVE [facility] Glucose (U) [Mass/Vol] Negative NEGATIVE [facility] Ketones Ql (U) >=80 mg/dL Abnormal NEGATIVE [facility] pH (U) 5.5 [pH] 5.0-9.0 [facility] Specific gravity (U) [Rel density] >=1.030 Abnormal 1.005-1.025 [facility] Urobilinogen Qn (U) 0.2 {Brian'U}/dL 0.2-1.0 [facility] Laboratory - Specimen inform ationon 09-20-2024 Appearance (U) SL CLOUDY CLEAR [facility] Color (U) YELLOW YELLOW [facility] Laboratory - Urinalysison Leukocyte esterase Test strip Ql (U) TRACE Abnormal NEGATIVE [facility] Mucus Ql (Urine sed) LARGE Abnormal NONE SEEN [facility] Nitrite Ql (U) Negative NEGATIVE [facility] Protein Ql (U) 30 mg/dL Abnormal NEG/TRACE [facility] No Panel Informationon 09-20 Urine Bacteria SMALL #/HPF Abnormal NONE SEEN [facility] Urine Culture Reflexed YES-[facility] Urine Microscopic Review YES [facility] Urine Occult Blood LARGE Abnormal NEGATIVE [facility] Urine Other Casts NONE SEEN #/LPF NONE SEEN [facility] Urine Other Crystals None Seen #/HPF None Seen [facility] Urine RBC 0-2 #/HPF 0-2 [facility] Urine Squamous Epithelial Cells FEW #/LPF Abnormal NONE/RARE [facility] Urine WBC 0-2 #/HPF Abnormal NONE SEEN [facility] US OB BPP W NON-STRESS on 09-16-[address] [address] Ultrasound Report Signed Patient: AMY MARIO MR#: [id number] : 2000 Acct:[id number] Age/Sex: 24 / F ADM Date: 09/16/24 Loc: [facility] 250-[address]: Immanuel Hilton D.O. Ordering Physician: Immanuel Hilton D.O. Date of Service: 09/16/24 Procedure(s): US OB BPP w non-stress Accession Number(s): [id number] cc: Akila Grant M.D.; Immanuel Hilton D.O. [place] [address] Patient Name: AMY MARIO MRN: [facility]:[id number] date: 2000 Sex: F Assigned Patient Location: [facility] Current Patient Location: [facility] Accession/Order Number: [id number] Exam Date: 09/16/2024 09:04 Report Date: 09/16/2024 [...] 34 weeks 4 days. The heart rate [id number] beats per minute. FINDINGS: TONE: 1 or [...] Chika Holden M.D.09/16/2024 9:06 AM Dictation Location: [place] [address] Electronically authenticated by: [id number] Y Date: 09/16/2024 09:06 Dictated By: Chika Holden M.D. Signed By: 09/16/24908 DD/ 5 TD/TT: Lift Driver: [facility] Radiology, Radiologist, - 09/16/2024 [place] [address] Ultrasound Report Signed Patient: AMY MARIO MR#: [id number] : 2000 Acct:[id number] Age/Sex: 24 / F ADM Date: 09/16/24 Loc: [facility] 250-[address]: Immanuel Hilton D.O. Ordering Physician: Immanuel Hilton D.O. Date of Service: 09/16/24 Procedure(s): US OB BPP w non-stress Accession Number(s): [id number] cc: Akila Grant M.D.; Immanuel Hilton D.O. The [address] [address] Patient Name: AMY MARIO MRN: [facility]:[id number] date: 2000 Sex: F Assigned Patient Location: [facility] Current Patient Location: [facility] Accession/Order Number: [id number] Exam Date: 09/16/2024 09:04 Report Date: 09/16/2024 [...] Chika Holden M.D.09/16/2024 9:06 AM Dictation Location: [place] [address] Electronically authenticated by: [id number] Y Date: 09/16/2024 09:06 Dictated By: Chika Holden M.D. Signed By: 09/16/24908 DD/ 5 TD/TT: Lift Driver: [facility] Radiology Study observation (narrative) [facility] US OB BPP W NON-STRESS Ordered By: Radiologist Radiology on 09-16-2024 [facility] Work Phone: US OB GROWTHon 09-16-2024 [place] [address] Ultrasound Report Signed Patient: AMY MARIO MR#: [id number] : 2000 Acct:[id number] Age/Sex: 24 / F ADM Date: 09/16/24 Loc: [facility] 250-[address]: Immanuel Hilton D.O. Ordering Physician: Immanuel Hilton D.O. Date of Service: 09/16/24 Procedure(s): US OB growth Accession Number(s): [id number] cc: Akila Grant M.D.; Immanuel Hilton D.O. [address] [id number] Patient Name: AMY MARIO MRN: [facility]:[id number] date: 2000 Sex: F Assigned Patient Location: [facility] Current Patient Location: [facility] Accession/Order Number: [id number] Exam Date: 09/16/2024 09:07 Report Date: 09/16/2024 [...] Chika Holden M.D.09/16/2024 9:15 AM Dictation Location: [place] [address] Electronically authenticated by: [id number] Y Date: 09/16/2024 09:15 Dictated By: Chika Holden M.D. Signed By: 09/16/24917 DD/ 4 TD/TT: Lift Driver: [facility] Radiology, Radiologist, MD - 09/16/2024 [place] [address] Ultrasound Report Signed Patient: AMY MARIO MR#: [id number] : 2000 Acct:[id number] Age/Sex: 24 / F ADM Date: 09/16/24 Loc: [facility] 250-[address]: Immanuel Hilton D.O. Ordering Physician: Immanuel Hilton D.O. Date of Service: 09/16/24 Procedure(s): US OB growth Accession Number(s): [id number] cc: Akila Grant M.D.; Immanuel Hilton D.O. The [address] [address] Patient Name: AMY MARIO MRN: [facility]:[id number] date: 2000 Sex: F Assigned Patient Location: [facility] Current Patient Location: [facility] Accession/Order Number: [id number] Exam Date: 09/16/2024 09:07 Report Date: 09/16/2024 [...] Chika Holden M.D.09/16/2024 9:15 AM Dictation Location: [place] Electronically authenticated by: [id number] Y Date: 09/16/2024 09:15 Dictated By: Chika Holden M.D. Signed By: 09/16/24917 DD/ 4 TD/TT: Lift Driver: [facility] Radiology Study observation (narrative) [facility] US OB GROWTHOrdered By: Kaye ologist Radiology on 09-16-2024 [facility] Work Phone: TB TOTAL PROTEIN 24 HOUR UR INEon 09-12-2024 Interpretation and review of laboratory results Abnormal [facility] Protein (U) [Mass/Vol] 29.7 mg/dL High NINF - 11.9 mg/dL [facility] TBH TOTAL PROTEIN 24 HOUR URINE 148.5 NINF [facility] TOTAL VOLUME 24 HOUR URINE 500 mL/24hr [facility] ALL CBC WITH AUTO DIFFon BASOPHILS ABSOLUTE AUTO 0 [facility] Basophils/100 WBC (Bld) 0.1 % Low 0.2 - 2.0 % [facility] Eosinophils/100 WBC (Bld) 0.7 % Low 0.9 - 7.0 % [facility] Erythrocyte distribution width (RBC) [Ratio] 13.4 % 11.0 - 15.0 % [facility] Hematocrit (Bld) [Volume fraction] 32.2 % Low 36.0 - 48.0 % [facility] Hemoglobin (Bld) [Mass/Vol] 10.6 g/dL Low 12.0 - 16.0 g/dL [facility] IMMATURE GRANULOCYTES ABS AUTO 0.06 High [facility] Immature granulocytes/100 WBC (Bld) 0.9 % High 0.0 - 0.5 % [facility] Interpretation and review of laboratory results Abnormal [facility] LYMPHOCYTES ABSOLUTE AUTO 1.4 [facility] Lymphocytes/100 WBC (Bld) 19.7 % Low 20.5 - 60.0 % [facility] MCH (RBC) [Entitic mass] 28.3 pg 26.7 - 34.0 pg [facility] MCHC (RBC) [Mass/Vol] 32.9 g/dL 29.9 - 35.2 g/dL [facility] MCV (RBC) [Entitic vol] 85.9 fL 81.0 - 99.0 fL [facility] MONOCYTES ABSOLUTE AUTO 0.5 [facility] Monocytes/100 WBC (Bld) 7.4 % 1.7 - 12.0 % [facility] NEUTROPHILS ABSOLUTE AUTO 4.9 [facility] Neutrophils/100 WBC (Bld) 71.2 % 43.0 - 75.0 % [facility] Platelet mean volume (Bld) [Entitic vol] 10.4 fL 9.5 - 13.5 fL [facility] EO # 0.1 [facility] PLT 391 [facility] RBC 3.75 Low [facility] WBC 6.9 [facility] Activated partial thrombopla stin time (aPTT) in platelet poor plasma by coagulation aon 09-09-2024 aPTT Coag (PPP) [Time] Activated partial thromboplastin time (aPTT) in platelet poor plasma by coagulation a Low 22.3-36.2 [facility] Basophils Auto (Bld) [#/Vol] on 09-09-2024 Basophils (Bld) [#/Vol] Automated basophil count 0.0-0.1 [facility] Basophils/100 WBC Auto (Bld) on 09-09-2024 Basophils/100 WBC (Bld) Automated basophil % Low 0.2-2.0 [facility] Eosinophils/100 WBC Auto (Bl d)on 09-09-2024 Eosinophils/100 WBC (Bld) Automated eosinophil % Low 0.9-7.0 [facility] Erythrocyte distribution wid th Auto (RBC) [Ratio]on 09-09-2024 Erythrocyte distribution width (RBC) [Ratio] Erythrocyte distribution width [Ratio] by Automated count 11.0-15.0 [facility] Estimated glomerular filtrat ion rate (GFR) non- Americanon 09-09-2024 GFR/1.73 sq M.predicted among non-blacks MDRD (S/P/Bld) [Vol rate/Area] Estimated glomerular filtration rate (GFR) non- >=60 mL/min/1.73m 2 [facility] Hematocrit Auto (Bld) [Volum e fraction]on 09-09-2024 Hematocrit (Bld) [Volume fraction] Hematocrit [Volume Fraction] of Blood by Automated count Low 36.0-48.0 [facility] Hemoglobin [Mass/volume] in Bloodon 09-09-2024 Hemoglobin (Bld) [Mass/Vol] Hemoglobin [Mass/volume] in Blood Low 12.0-16.0 [facility] INR in Platelet poor plasma by Coagulation assayon 09-09-2024 INR Coag (PPP) [Relative time] INR in Platelet poor plasma by Coagulation assay [facility] Comment on above: DESIRED INR:2.0-3.0 CONDITIONS NOT LISTED BELOW2.5-3.5 FOR PROSTHETIC HEART VALVE REPLACEMENT2.5-3.5 RECURRENT THROMBOSIS Laboratory - Chemistry and C hemistry - challengeon 09-09-2024 AST [Catalytic activity/Vol] 14 U/L Low 15-37 [facility] Creatinine [Mass/Vol] 0.56 mg/dL 0.55-1.02 [facility] GFR/1.73 sq M.predicted MDRD (S/P/Bld) [Vol rate/Area] mL/min/{1.73_m2} >=60 mL/min/1.73m 2 [facility] LDH [Catalytic activity/Vol] 296 U/L High 81-234 [facility] Urate [Mass/Vol] 5.4 mg/dL 2.6-6.0 [facility] s [facility] Urea nitrogen [Mass/Vol] 5.0 mg/dL Low 7.0-18.0 [facility] Laboratory - Hematology and Cell countson 09-09-2024 Immature granulocytes/100 WBC (Bld) 0.9 % High 0.0-0.5 [facility] Leukocytes [#/volume] correc lisha for nucleated erythrocytes in Blood by Automated counon 09-09-2024 WBC corrected for nucl RBC Auto (Bld) [#/Vol] Leukocytes [#/volume] corrected for nucleated erythrocytes in Blood by Automated coun 4.0-11.0 [facility] Lymphocytes Auto (Bld) [#/Vo l]on 09-09-2024 Lymphocytes (Bld) [#/Vol] Lymphocytes [#/volume] in Blood by Automated count 1.2-3.8 [facility] Lymphocytes/100 WBC Auto (Bl d)on 09-09-2024 Lymphocytes/100 WBC (Bld) Lymphocytes/100 leukocytes in Blood by Automated count Low 20.5-60.0 [facility] MCH Auto (RBC) [Entitic mass ]on 09-09-2024 MCH (RBC) [Entitic mass] MCH [Entitic mass] by Automated count 26.7-34.0 [facility] MCHC Auto (RBC) [Mass/Vol]on 09-09-2024 MCHC (RBC) [Mass/Vol] MCHC [Mass/volume] by Automated count 29.9-35.2 [facility] MCV Auto (RBC) [Entitic vol] on 09-09-2024 MCV (RBC) [Entitic vol] MCV [Entitic volume] by Automated count 81.0-99.0 [facility] Monocytes Auto (Bld) [#/Vol] on 09-09-2024 Monocytes (Bld) [#/Vol] Automated blood monocyte count 0.3-0.8 [facility] Monocytes/100 WBC Auto (Bld) on 09-09-2024 Monocytes/100 WBC (Bld) Automated monocyte % 1.7-12.0 [facility] Neutrophils Auto (Bld) [#/Vo l]on 09-09-2024 Neutrophils (Bld) [#/Vol] Neutrophils [#/volume] in Blood by Automated count 1.4-6.5 [facility] Neutrophils/100 WBC Auto (Bl d)on 09-09-2024 Neutrophils/100 WBC (Bld) Automated neutrophil % 43.0-75.0 [facility] No Panel Informationon 09-09 Eosinophils # (Auto) 0.1 10 3/uL 0.0-0.7 [facility] Immature Granulocyte # (Auto) 0.06 10 3/uL High 0.00-0.03 [facility] Platelet mean volume Auto (B ld) [Entitic vol]on 09-09-2024 Platelet mean volume (Bld) [Entitic vol] Platelet mean volume [Entitic volume] in Blood by Automated count 9.5-13.5 [facility] Platelets Auto (Bld) [#/Vol] on 09-09-2024 Platelets (Bld) [#/Vol] Platelets [#/volume] in Blood by Automated count 150-450 [facility] Prothrombin time (PT)on 08-29 PT Coag (PPP) [Time] Prothrombin time (PT) 9.0-11.6 [facility] RBC Auto (Bld) [#/Vol]on RBC (Bld) [#/Vol] Erythrocytes [#/volume] in Blood by Automated count Low 4.20-5.40 [facility] US OB BPP W NON-STRESS on 09-09-2024 [place] [address] Ultrasound Report Signed Patient: AMY MARIO MR#: [id number] : 2000 Acct:[id number] Age/Sex: 24 / F ADM Date: 09/09/24 Loc: US Attending Dr: Immanuel Hilton D.O. Ordering Physician: Immanuel Hilton D.O. Date of Service: 09/09/24 Procedure(s): US OB BPP w non-stress Accession Number(s): [id number] cc: Akila Grant M.D.; Immanuel Hilton D.O. The [address] [id number] Patient Name: AMY MARIO MRN: [facility]:[id number] date: 2000 Sex: F Assigned Patient Location: [facility] Current Patient Location: ED.MAIN Accession/Order Number: [id number] Exam Date: 09/09/2024 07:58 Report Date: 09/09/2024 [...] Signed By: 09/09/24 1132 DD/ 1130 TD/TT: Lift Driver: [facility] Radiology, Radiologist, MD - 09/09/2024 [place] [address] Ultrasound Report Signed Patient: AMY MARIO MR#: [id number] : 2000 Acct:[id number] Age/Sex: 24 / F ADM Date: 09/09/24 Loc: US Attending Dr: Immanuel Hilton D.O. Ordering Physician: Immanuel Hilton D.O. Date of Service: 09/09/24 Procedure(s): US OB BPP w non-stress Accession Number(s): [id number] cc: Akila Grant M.D.; Immanuel Hilton D.O. [address] [address] Patient Name: AMY MARIO MRN: [facility]:[id number] date: 2000 Sex: F Assigned Patient Location: [facility] Current Patient Location: ED.MAIN Accession/Order Number: [id number] Exam Date: 09/09/2024 07:58 Report Date: 09/09/2024 [...] Signed By: 09/09/24 1132 DD/ 1130 TD/TT: Lift Driver: [facility] Radiology Study observation (narrative) [facility] US OB BPP W NON-STRESS Ordered By: Radiologist Radiology on 09-09-2024 [facility] Work Phone: Urinalysis macro (dipstick) panel (U)on 09-08-2024 Bilirubin, UA Trace Negative - 4(70) +++ mg/dL [facility] Blood, UA Positive Negative - 50 [place]/mcL [facility] Leukocytes, UA Positive Negative - 500+++ Mychal/mcL [facility] Nitrite, UA Negative Negative - Positive [facility] pH, UA 6 5 - 9 [facility] Protein, UA Positive Negative - 2000(20) ++++ mg/dL [facility] Spec Grav, UA 1.025 1 - 1.03 [facility] Urobilinogen, UA 0.2 0.2 - 12 mg/dL [facility] US OB BPP W NON-STRESS on 09-02-2024 [place] [address] Ultrasound Report Signed Patient: AMY MARIO MR#: [id number] : 2000 Acct:[id number] Age/Sex: 24 / F ADM Date: 09/02/24 Loc: US Attending Dr: Immanuel Hilton D.O. Ordering Physician: Immanuel Hilton D.O. Date of Service: 09/02/24 Procedure(s): US OB BPP w non-stress Accession Number(s): [id number] cc: Akila Grant M.D.; Immanuel Hilton D.O. [place] [address] Patient Name: AMY MARIO MRN: [facility]:[id number] date: 2000 Sex: F Assigned Patient Location: [facility] Current Patient Location: Accession/Order Number: [id number] Exam Date: 09/02/2024 08:03 Report Date: 09/02/2024 [...] M.D. Signed By: 09/02/24924 DD/ 1 TD/TT: Lift Driver: [facility] Radiology, Radiologist, - 09/02/2024 [place] [address] Ultrasound Report Signed Patient: AMY MARIO MR#: [id number] : 2000 Acct:[id number] Age/Sex: 24 / F ADM Date: 09/02/24 Loc: US Attending Dr: Immanuel Hilton D.O. Ordering Physician: Immanuel Hilton D.O. Date of Service: 09/02/24 Procedure(s): US OB BPP w non-stress Accession Number(s): [id number] cc: Akila Grant M.D.; Immanuel Hilton D.O. The [place] [id number] Patient Name: AMY MARIO MRN: [facility]:[id number] date: 2000 Sex: F Assigned Patient Location: [facility] Current Patient Location: Accession/Order Number: [id number] Exam Date: 09/02/2024 08:03 Report Date: 09/02/2024 [...] M.D. Signed By: 09/02/24924 DD/ 1 TD/TT: Lift Driver: [facility] Radiology [...] 2164 gm / 4 lbs, 12 oz (0920-5921 gm) Hadlock Normal: 1953 gm (0635-2626 mg) [place] 80% for 32.0 wks ([place] [...] report is generated using voice recognition reporting ([employer]). On occasion [employer] erroneously drops words from the report or [...] UA Positive Negative - 4(70) +++ mg/dL [facility] Comment on above: small Blood, UA Negative Negative - 50 Jimy/mcL [facility] Clarity, [facility] Color, UA Yellow [facility] [...] Urobilinogen, UA 0.2 0.2 - 12 mg/dL [facility] [facility] US OB BPP W NON-STRESS on 08-26-2024 [place] [address] Ultrasound Report Signed Patient: AMY MARIO MR#: [id number] : 2000 Acct:[id number] Age/Sex: 24 / F ADM Date: 08/26/24 Loc: [facility] 251-[address]: Immanuel Hilton D.O. Ordering Physician: Immanuel Hilton D.O. Date of Service: 08/26/24 Procedure(s): US OB BPP w non-stress Accession Number(s): [id number] cc: Akila Grant M.D.; Immanuel Hilton D.O. [address] [address] Patient Name: AMY MARIO MRN: [id number] date: 2000 Sex: F Assigned Patient Location: [facility] Current Patient Location: [facility] Accession/Order Number: [id number] Exam Date: 08/26/2024 08:00 Report Date: 08/26/2024 [...] M.D. Signed By: 08/26/2458 DD/ 5 TD/TT: Lift Driver: [facility] Radiology, Radiologist, MD - 08/26/2024 [place] [address] Ultrasound Report Signed Patient: AMY MARIO MR#: [id number] : 2000 Acct:[id number] Age/Sex: 24 / F ADM Date: 08/26/24 Loc: [facility] 251-[address]: Immanuel Hilton D.O. Ordering Physician: Immanuel Hilton D.O. Date of Service: 08/26/24 Procedure(s): US OB BPP w non-stress Accession Number(s): [id number] cc: Akila Grant M.D.; Immanuel Hilton D.O. [facility] [place] [id number] Patient Name: AMY MARIO MRN: [facility]:[id number] date: 2000 Sex: F Assigned Patient Location: [facility] Current Patient Location: [facility] Accession/Order Number: [id number] Exam Date: 08/26/2024 08:00 Report Date: 08/26/2024 [...] M.D. Signed By: 08/26/2458 DD/ 5 TD/TT: Lift Driver: [facility] Radiology [...] Urobilinogen, UA 0.2 0.2 - 12 mg/dL [facility] ALL CBC WITH AUTO DIFFon BASOPHILS ABSOLUTE [...] [facility] TBH EO # 0.1 [facility] PLT 400 [facility] TB RBC 3.72 Low [facility] WBC 8 [facility] Basophils Auto (Bld) [#/Vol] on 08-05-2024 Basophils (Bld) [#/Vol] Automated basophil count 0.0-0.1 [facility] Basophils/100 WBC Auto (Bld) on 08-05-2024 Basophils/100 WBC (Bld) Automated basophil % 0.2-2.0 [facility] Eosinophils/100 WBC Auto (Bl d)on 08-05-2024 Eosinophils/100 WBC (Bld) Automated eosinophil % 0.9-7.0 [facility] Erythrocyte distribution wid th Auto (RBC) [Ratio]on 08-05-2024 Erythrocyte distribution width (RBC) [Ratio] Erythrocyte distribution width [Ratio] by Automated count 11.0-15.0 [facility] Hematocrit Auto (Bld) [Volum e fraction]on 08-05-2024 Hematocrit (Bld) [Volume fraction] Hematocrit [Volume Fraction] of Blood by Automated count Low 36.0-48.0 [facility] Hemoglobin [Mass/volume] in Bloodon 08-05-2024 Hemoglobin (Bld) [Mass/Vol] Hemoglobin [Mass/volume] in Blood Low 12.0-16.0 [facility] Laboratory - Hematology and Cell countson 08-05-2024 Immature granulocytes/100 WBC (Bld) 0.9 % High 0.0-0.5 [facility] Leukocytes [#/volume] correc lisha for nucleated erythrocytes in Blood by Automated counon 08-05-2024 WBC corrected for nucl RBC Auto (Bld) [#/Vol] Leukocytes [#/volume] corrected for nucleated erythrocytes in Blood by Automated coun 4.0-11.0 [facility] Lymphocytes Auto (Bld) [#/Vo l]on 08-05-2024 Lymphocytes (Bld) [#/Vol] Lymphocytes [#/volume] in Blood by Automated count 1.2-3.8 [facility] Lymphocytes/100 WBC Auto (Bl d)on 08-05-2024 Lymphocytes/100 WBC (Bld) Lymphocytes/100 leukocytes in Blood by Automated count Low 20.5-60.0 [facility] MCH Auto (RBC) [Entitic mass ]on 08-05-2024 MCH (RBC) [Entitic mass] MCH [Entitic mass] by Automated count 26.7-34.0 [facility] MCHC Auto (RBC) [Mass/Vol]on 08-05-2024 MCHC (RBC) [Mass/Vol] MCHC [Mass/volume] by Automated count 29.9-35.2 [facility] MCV Auto (RBC) [Entitic vol] on 08-05-2024 MCV (RBC) [Entitic vol] MCV [Entitic volume] by Automated count 81.0-99.0 [facility] Monocytes Auto (Bld) [#/Vol] on 08-05-2024 Monocytes (Bld) [#/Vol] Automated blood monocyte count 0.3-0.8 [facility] Monocytes/100 WBC Auto (Bld) on 08-05-2024 Monocytes/100 WBC (Bld) Automated monocyte % 1.7-12.0 [facility] Neutrophils Auto (Bld) [#/Vo l]on 08-05-2024 Neutrophils (Bld) [#/Vol] Neutrophils [#/volume] in Blood by Automated count 1.4-6.5 [facility] Neutrophils/100 WBC Auto (Bl d)on 08-05-2024 Neutrophils/100 WBC (Bld) Automated neutrophil % 43.0-75.0 [facility] No Panel Informationon 08-05 Eosinophils # (Auto) 0.1 10 3/uL 0.0-0.7 [facility] Immature Granulocyte # (Auto) 0.07 10 3/uL High 0.00-0.03 [facility] Platelet mean volume Auto (B ld) [Entitic vol]on 08-05-2024 Platelet mean volume (Bld) [Entitic vol] Platelet mean volume [Entitic volume] in Blood by Automated count 9.5-13.5 [facility] Platelets Auto (Bld) [#/Vol] on 08-05-2024 Platelets (Bld) [#/Vol] Platelets [#/volume] in Blood by Automated count 150-450 [facility] RBC Auto (Bld) [#/Vol]on RBC (Bld) [#/Vol] Erythrocytes [#/volume] in Blood by Automated count Low 4.20-5.40 [facility] Urinalysis macro (dipstick) panel (U)on 06-22-2024 [...] Urobilinogen, UA 0.2 0.2 - 12 mg/dL [facility] IGP,APTIMA HPV,AGE GDLNon AGE GDLN ACOG TESTING Note . [facility] Comment on above: TESTS RESULT FLAG UN ITS REF RANGE LAB Clinician Provided Cytology Information Source.............Cervix Other.............. No. of containers..01 ThinPrep Vial Age Algo ACOG Michelle... -25 08 FLAG LEGEND: L-Low Normal,H-High Normal,LL-Alert Low,HH-Alert High <-Panic Low,>-Panic High,A-Abnormal,AA-Critical Abnormal Performed at: 01 [facility] [address] [place] [address] Mar Rivera MD, IGP, RFX APTIMA HPV ASCU Note . [facility] Comment on above: TESTS RESULT FLAG UN ITS REF RANGE LAB DIAGNOSIS: 02 NEGATIVE FOR INTRAEPITHELIAL LESION OR MALIGNANCY. FUNGAL ORGANISMS MORPHOLOGICALLY CONSISTENT WITH CARLOS SPECIES ARE PRESENT. Specimen adequacy: 02 Satisfactory for evaluation. No endocervical component is identified. An endocervical component is not commonly seen in the patient. Performed by: Judy Vera, Architect Manager ([facility]) . 02 Note: Note 02 The [...] <-Panic Low,>-Panic High,A-Abnormal,AA-Critical Abnormal Performed at: [address] [place] [address] Mar Rivera MD, Performed at: = - [facility] [address] [id number] Paint Roller Cover Machine Setter: Mar Rivera MD, Phone: [phone] Performed at: [facility] [id number] Paint Roller Cover Machine Setter: Mar Rivera MD, Phone: [phone] SPATULA-ALONE CERVIX [facility] AFP, SERUM, OPEN SPINA BIFID Aon 05-30-2024 AFP MOM 1.36 . [facility] AFP VALUE 55.4 ng/mL . [facility] COMMENT: Comment . [facility] Comment on above: Ivet Mobley , Ph.D., [facility] Director References: Available Upon Request. Multiples Of Median Cutoffs For AFP Elevations Del Rosario 2.5 Black 2.8 IDD 2.0 Twins 4.5 Abbreviation Definitions IDD - Insulin Dep Diabetes OSBR - Open Spina Bifida Risk For further inquiries contact [employer] at [phone]. This test was developed and its performance characteristics determined by [employer]. It has not been cleared or approved by the Food and Drug Administration. Performed at: [facility] [address] [place], [place] [id number] [employer] Roller Cover Machine Setter: Kristina Carter [facility], Phone: [phone] GEST. AGE ON COLLECTION DATE 18.6 . [...] Customer Services to discuss available options. The [employer] recommends amniocentesis [...] [facility] N N LMP [id number] 4 18 N 1 Y 185 N N N N N [facility] Urinalysis macro (dipstick) panel (U)on [...] [facility] Protein, UA Negative Negative - 2000(20) ++++ mg/dL [facility] Spec Grav, UA 1.030 1 - 1.03 [facility] Urobilinogen, UA 0.2 0.2 - 12 mg/dL [facility] ALL CBC WITH AUTO DIFFon BASOPHILS ABSOLUTE [...] vol] 9.6 fL 9.5 - 13.5 fL [facility] EO # 0.1 [facility] PLT 400 [facility] RBC 4.55 [facility] WBC 8.7 [facility] CBC without diffon Rbc Mcv (Fl) By Automated Count 87 [facility] Laboratory - Hematology and Cell countson 04-08-2024 Hematocrit (Bld) [Volume fraction] 39.6 % [facility] Hemoglobin (Bld) [Mass/Vol] 13.7 g/dL [facility] No Panel Informationon 04-08 [facility] Rubella IGG immune statuson 04-08-2024 Rubella immune IgG 2.32 [facility] Syphilis Total(Unknown Syphi lis Status)on 04-08-2024 Syphilis Non-Reactive [facility] Type and screenon 04-08-2024 Abo/Rh(D) Positive [facility] HCG ( test) Ql (U)o n 03-27-2024 Interpretation and review of laboratory results Abnormal [facility] Preg Test, Ur Positive [facility] Urinalysis macro (dipstick) panel (U)on 03-27-2024 Bilirubin, [...] Urobilinogen, UA 0.2 0.2 - 12 mg/dL [facility] PROGESTERONEon 07-27-2022 Progesterone 26.9 ng/mL Normal [facility] Comment on above: Result Comment: Foll icular phase 0.1 - 0.9 Luteal phase 1.8 - 23.9 Ovulation phase 0.1 - 12.0 First trimester 11.0 - 44.3 Second trimester 25.4 - 83.3 Third trimester 58.7 - 214.0 Postmenopausal 0.0 - 0.1 Performed By: #### P ROGES #### [facility] [address] [place] [address] Dr. Ryan Francisco PREG QUANT HCGon 07-12-2022 HCG QUANT <1 Normal [facility] Comment on above: Performed By: #### P REGQNT #### [facility] [address] [place] [address] Dr. Ryan Francisco HCG RANGE SEE BELOW [facility] Comment on above: Result Comment: 5-50 0.2-1 WEEK 50-500 1-2 WEEKS 100-5,000 2-3 WEEKS 500-10,000 3-4 WEEKS 1,000-50,000 4-5 WEEKS 10,000-100,000 5-6 WEEKS 15,000-200,000 6-8 WEEKS 10,000-100,000 2-3 MONTHS Performed By: #### P REGQNT #### [facility] [address] [place] [address] Dr. Ryan Francisco XR HYSTEROSALPINGO EXPon XR [...] by: CLEMENTINE DEWEY Date: 2022-07-12 12:34 Normal [facility] PROGESTERONEon 06-29-2022 Progesterone 4.6 ng/mL Normal [facility] Comment on above: Result Comment: Foll icular phase 0.1 - 0.9 Luteal phase 1.8 - 23.9 Ovulation phase 0.1 - 12.0 First trimester 11.0 - 44.3 Second trimester 25.4 - 83.3 Third trimester 58.7 - 214.0 Postmenopausal 0.0 - 0.1 Performed By: #### P BRETT #### [facility] [address] [place] [address] Dr. Ryan Francisco PROGESTERONEon 06-01-2022 Progesterone 18.9 ng/mL Normal [facility] Comment on above: Result Comment: Foll icular phase 0.1 - 0.9 Luteal phase 1.8 - 23.9 Ovulation phase 0.1 - 12.0 First trimester 11.0 - 44.3 Second trimester 25.4 - 83.3 Third trimester 58.7 - 214.0 Postmenopausal 0.0 - 0.1 Performed By: #### P BRETT #### [facility] [address] [place] [address] Dr. Ryan Francisco US PELVIS AND TRANSVAGon [...] by: CLEMENTINE DEWEY Date: 2022-05-17 17:25 Normal [facility] PROGESTERONEon 04-29-2022 Progesterone 5.1 ng/mL Normal [facility] Comment on above: Result Comment: Foll icular phase 0.1 - 0.9 Luteal phase 1.8 - 23.9 Ovulation phase 0.1 - 12.0 First trimester 11.0 - 44.3 Second trimester 25.4 - 83.3 Third trimester 58.7 - 214.0 Postmenopausal 0.0 - 0.1 Performed By: #### P BRETT ####[facility] [address] [place], [place] [address]DgDr. Ryan Francisco ANTI-MULLERIAN HORMONEon Anti-Mullerian Hormone (AMH) 6.09 ng/mL Normal [facility] Comment on above: Result Comment: For assays employing antibodies, the possibility exists for interference by heterophile antibodies in the samples.1 1.Steffen Wilson Interferences in Immunoassays - still a threat. Clin. Chem. 2000; 46: 7310-0939. This test was developed and its performance characteristics determined by [employer]. It has not been cleared or approved by the Food and Drug Administration. Reference Range: Females 20 - 25y: 1.23 - 11.51 Median 4.70 AMH concentrations of >= 1.06 ng/mL is correlated with a better response to ovarian stimulation, produced more retrievable oocytes and higher odds of live according to Herber et al. Fertility and Sterility. 2010: 94:0893-3796. The current AMH test method correlates with [...] tumor. Performed By: #### A WEI #### [facility] [address] [place], [place] [address] Dr. Ryan Francisco FSHon 04-05-2022 FSH 3.6 mIU/mL Normal [facility] Comment on above: Result Comment: Adul t Female: Follicular phase 3.5 - 12.5 Ovulation phase 4.7 - 21.5 Luteal phase 1.7 - 7.7 Postmenopausal 25.8 - 134.8 Performed By: #### L [facility] #### [facility] [address] [place], [place] [address] Dr. Ryan Francisco LUTEINIZING HORMONE (LH)on 0 04-05-2022 LH 6.8 mIU/mL Normal [facility] Comment on above: Result Comment: Adul t Female: Follicular phase 2.4 - 12.6 Ovulation phase 14.0 - 95.6 Luteal phase 1.0 - 11.4 Postmenopausal 7.7 - 58.5 Performed By: #### L BCL ####[facility] [address] [place] [address]Dr. Ryan Francisco CBC AUTO DIFFon 04-04-2022 BASO # 0.0 103/ul Normal 0.0-0.1 [facility] Comment on above: Performed By: #### C BC #### [facility] [address] [place] [address] [address] Ryan Francisco Basophils/100 WBC (Bld) 0.3 % Normal 0.2-2.0 [facility] Comment on above: Performed By: #### C BC #### [facility] [address] [place] [address] [address] Ryan Francisco EO # 0.1 103/ul Normal 0.0-0.7 [facility] Comment on above: Performed By: #### C BC #### [facility] [address] [place] [address] [address] Ryan Francisco Eosinophils/100 WBC (Bld) 1.7 % Normal 0.9-7.0 [facility] Comment on above: Performed By: #### C BC #### [facility] [address] [place] [address] [address] Ryan Francisco Erythrocyte distribution width (RBC) [Ratio] 12.7 % Normal 11.0-15.0 [facility] Comment on above: Performed By: #### C BC #### [facility] [address] [place] [address] [address] Ryan Francisco Hematocrit (Bld) [Volume fraction] 39.7 % Normal 36.0-48.0 [facility] Comment on above: Performed By: #### C BC #### [facility] [address] [place] [address] [address] Ryan Francisco Hemoglobin (Bld) [Mass/Vol] 13.4 g/dL Normal 12.0-16.0 [facility] Comment on above: Performed By: #### C BC #### [facility] [address] [place] [address] Dr. Ryan Francisco IG # 0.03 10e3/ul Normal 0.00-0.03 [facility] Comment on above: Performed By: #### C BC #### [facility] [address] [place] [address] Dr. Ryan Francisco IG % 0.5 % Normal 0.0-0.5 [facility] Comment on above: Performed By: #### C BC #### [facility] [address] [place] [address] Dr. Ryan Francisco LYMPH # 1.6 103/ul Normal 1.2-3.8 [facility] Comment on above: Performed By: #### C BC #### [facility] [address] [place] [address] Dr. Ryan Francisco Lymphocytes/100 WBC (Bld) 27.1 % Normal 20.5-60.0 [facility] Comment on above: Performed By: #### C BC #### [facility] [address] [place] [address] Dr. Ryan Francisco MANUAL DIFF REQ NO Normal [facility] Comment on above: Performed By: #### C BC #### [facility] [address] [place] [address] Dr. Ryan Francisco MCH (RBC) [Entitic mass] 29.6 pg Normal 26.7-34.0 [facility] Comment on above: Performed By: #### C BC #### [facility] [address] [place] [address] Dr. Ryan Francisco MCHC (RBC) [Mass/Vol] 33.8 g/dL Normal 29.9-35.2 [facility] Comment on above: Performed By: #### C BC #### [facility] [address] [place] [address] Dr. Ryan Francisco MCV (RBC) [Entitic vol] 87.6 fL Normal 81.0-99.0 [facility] Comment on above: Performed By: #### C BC #### [facility] [address] [place] [address] Dr. Ryan Francisco MONO # 0.4 103/ul Normal 0.3-0.8 [facility] Comment on above: Performed By: #### C BC #### [facility] [address] [place] [address] Dr. Ryan Francisco Monocytes/100 WBC (Bld) 6.7 % Normal 1.7-12.0 [facility] Comment on above: Performed By: #### C BC #### [facility] [address] [place] [address] Dr. Ryan Francisco NEUT # 3.7 103/ul Normal 1.4-6.5 [facility] Comment on above: Performed By: #### C BC #### [facility] [address] [place] [address] Dr. Ryan Francisco Neutrophils/100 WBC (Bld) 63.7 % Normal 43.0-75.0 [facility] Comment on above: Performed By: #### C BC #### [facility] [address] [place] [address] Dr. Ryan Francisco Platelet mean volume (Bld) [Entitic vol] 9.9 fL Normal 9.5-13.5 [facility] Comment on above: Performed By: #### C BC #### [facility] [address] [place] [address] Dr. Ryan Francisco PLT 421 103/ul Normal 150-450 [facility] Comment on above: Performed By: #### C BC #### [facility] [address] [place] [address] Dr. Ryan Francisco RBC 4.53 106/ul Normal 4.20-5.40 [facility] Comment on above: Performed By: #### C BC #### [facility] [address] [place] [address] Dr. Ryan Francisco WBC 5.8 103/ul Normal 4.0-11.0 [facility] Comment on above: Performed By: #### C BC #### [facility] [address] [place] [address] Dr. Ryan Francisco FREE T4on 04-04-2022 Free T4 [Mass/Vol] 0.99 ng/dL Normal 0.76-1.46 [facility] Comment on above: Performed By: #### F T4 #### [facility] [address] [place], [place] [address] Dr. Ryan Francisco TSHon 04-04-2022 TSH 3.086 uIU/mL Normal 0.358-3.740 [facility] Comment on above: Performed By: #### T SH ####[facility] [address] [place], [place] [address]UqDr. Ryan Francisco US PELVIS AND TRANSVAGon US [...] 12-20-2021 Auth for Release of Medical Records [id number]# 1.00CD:127 Normal [facility] Coding Summary.on 08-22-2021 Coding Summary. CD:[id number] Gh0bWw+PGhlYWQ+PE1FV WZfH88trSDvxC1CT2vRK Q7GCYSKKAURVG0BPQ4jw SB4GDgrB9DvqoRc FyucaVYkZQ11CHu0WVK9 nJlmMGtpvI7lbCBnD3x4 ZzJkZQ73dY98PBotSPBo GhW1LgDhsbrptRXq X0osFlQydSBwElj+PHRh YmxlIHdpZHRoPScxMDAl NeKjuGmyCF7aUm8mZUWo LWNvbGxhcHNlOiBj o9qlYHLyCAdfGN8seFhr D8XqdOU8YUMlu3f1Of10 dHI+TDXfYYW8zTamPDrq v932LwZcn8fwKLA9 tAKkBQyjOMU6Y83fv2W5 GOCnAXCyEIM5lMH5rV3n xOnnkkdkF0MigTOmCkD6 ZFT0hQVvoM2biXss hhutfB5tDrp+Y09DJF4Q XADHJA9OKaq4G3HzOcjz dHI+MH98OQUeAO88gIXu sUCyf2elmUa5IeAg HOIsBVW0hKcgFPezq6Mu AIOfS11roQKjt6U6GPKi oNtadDZaYbTbkYD8tG1o QXizyvoek2cgoeky Gfpxi4zpxh47qY45V88u JFnsKYDqSFU6MFShVEBm qMbsoo8tfR8eLl7+IDxj f3kdu3bixSa1SkDc EDXmqxJzsTpuTDM0m8Nh Ek65M1OtwTzzh1JbDoa5 ya25wJShk5U6zLS5PMzz RKQvtA0qZIfsSgD4 WWVtFhPsbT03tJIoZChn Sp4iqSjahMmxSH0zGGKx qshlTIKcqT1sKWWyyHFa qLpiMO3dEKXusiqy y423XeYbLFQ8TGNovRCs G3OqvL8eGiDhZPAyHFPu B7NkzUXrMPeeT036ETaw DnX5MLOqaoKxX8Wi LBIxaJsyZfU8j4G0Cu7P a4IfgcsjMDA3SClfPQSc QbI5QnQpIiS3L5PeQph8 EQMxsNamET0lL8Ae DDNslvsdvcvgmJP4RNLj PTIgqE63qPMlTTesNp0t z2V5e768FDQyLAVcvG00 At8xtPuvVWVdcFIF hW6gaxear0itudbuEzPm VYCzAIh9GMk6HAYjiFdg EeIkTPE3SdP4AVQ5pNZv lG4boUscphvxiO4v Oyc+P91clB4fZPC6UUR0 dcsfIYDzesIqEG67TC52 B8AhNtjlbDQdxBN+PGRp vrGezPgmTP1vXuSb n6vgq6IfJZkdF6YcAGCg RCupUrh2CLErXEM3tEO0 xZ0oEVVqIZsol6R9lDQ9 M3YiktIjzq6bo2xo USFnKApzG51ltQEgf7F1 SFRohMU1SNOlmEezYiMs jO59Mty+RHGdbZuru6Uz Dayet4bfc9wjfTw3 IjMwJSIgdmFsaWduPSJ0 s0FvFr01U93uQQgvGIJe DZCcLJSjLMHysVfekt5m dR2xWk2+PGNvbCB3 dQJ6eN0eQPLcEqH4ZXcb N246DhKdhWIyVkoyj6pa m6vyzSt8TxOfEJNzdoEp uNvxTPH8i6LnBj47 R77hVOnoTZQhMYAkSXXr ANMxgIayle3tpS6zWg1+ NO9er7mxcm63aV74kIB+ NXYkPHJ6sBiwJSgs FBPnnO3dUIleFhY1HXMl YvMqpG86uKIsIUtaUi6r cCwexMnfUD8fGFJoorur a819BhWvo6viNHNb zOYpSVypKLK3V50om5B9 RNAsPVNaIHA2pRS7rM4e bGlnbjogbGVmdDsgdmVy xKlyXFmtBRhjS716 IHRvcDsnPlBhdGllbnQg UrZpRAg2V3BtKwa7HSIo iEmbKV7ehHDcVSxuKz7f kOnmbWdxTS4cXEUz texix531MhUan3xaVMVa vMFmTRtsMKS7L21yr1J3 QTOaTQVmEAI2oWA8pS3o bGlnbjogbGVmdDsg jjCzePocVNpdVVoqV678 IHRvcDsnPkJpcnRoIERh gFP0VG58OK37kHMwt1E2 kXM4O8HmGQMscqkl weiamSO6WEYkYMTexT25 Kp5euXpkTl9wHCOkIUL8 OOTtzSAaZ6BmlJ1nSaKj SJTcDVWeL6TphGNr IGwiB135UMkeQnI8ZKPw hzLoL0IoYSKxmPtnAwF8 n5Z8Dy5JV8R3KA52IL32 zXRxf4H7jNQ7V6Gg JPKdcmtbifdvdTY9LZJs NYAovI64Tr6vdRyhUn4d WPWrWED0GXTtkDGwU0Er uD2bHyRqHTXaEAXd N4BhrAMiXZmpC666OBds UhI6XEYyngYcD5IoYZCv rXzqLjR0a7Y5Vm1JNZt4 JA89GH65zKDeu9X8 dTI2U3QoJPAphbolgmzg oFN9ZTYgWSIsqP76Vg3y sBygIg7yPJQxQQN0JMRm dOJjY5JgxM6gMaEn NEUkXPHfQ7PiwTQzKMww M399RZgyIxE2SVJjfdOx H4SjHIMuvOlrFeS1h0P9 Qe0PKNKtOR58LLW6 gTE7OH15BQ70E4XbComk dGFibGU+PHRhYmxlIHdp ZHRoPScxMDAlJyBzdHls VA3lWi1bPTTsLZYk sMtpyDWcMfPcu6hxATGe ZMzfKT8qfSdaQ3CutBR7 CLHjo0q9Qj46A05dG1Xd dXA+IOXltBL1uAT4 cJ7sWvAcZgA7YRxyJ678 UcYlpFDoRjmuh9vsq5zs pYr6HeS5LFVjiySxmOyb ZHF3q9GmVe47K43l IHdpZHRoPSIxNSUiIHZh eAaqms9peV3wUz1+PGNv nZY4mFS9iT8qUsVtBpU2 DDhhT881VlCisGTk Lhlzk1riw8hykKt0CzPi LDShhpTnrExmJGP3k1Xe Nr29I6QwuKmip4MdBij7 ju37oODte4Y7lQT7 V2FeNCOgnavzqJNpvAnq CD4lYWKiiktnRTQyrY4l XOCqT6j6GrUuFdN9YYps B7TvbjV9NPIeoWIn GQyjHYM0K09ij4N2LHTy BZSuTZB9xAA2jI1auPwq bjogbGVmdDsgdmVydGlj MUpvEBjkT430COHg oHohTOCixO5oFGTheTZj eMxzMV5iDMJxsafoHuoG MQGyUEsEMRDGCJ65JL44 aRWwp5C9eIH6T8Is HQLkytxdjhuxeUA1UYDz NCGguP77pYCxIPwmXw3g n0J7z869FSHdYEGabZ48 Ws4qhNioSFLibMPK yT7bmezdg0aexiiwScNi PRLcQSp3LVh5IVAanCro OgSdSCC0EcI7UWF2tIYo hV0qiZobxydduU1p Oyc+OZVgBhvdPQa8FJgb dGQ+QPAiSET8kUytUNsm CYWpdV2rYWPtO9c8NbDc UqB3XGnkM4HbRFCk iimfNd55uH5hXbAxGkP9 ZZgfH7FvcnB6CVQxoGDf GMiiMUX8P74rl8Y8MKTf RPJqTSQ5cOO1uX0n bGlnbjogbGVmdDsgdmVy jUkfESauMQdpD429KDQo qZnrIpAbJMnaIEQfYM96 LW41oKHgh5Z6oOR3 C7LlHCWtjyuifvodiUK9 FGXhTOEiwN16cACvYSce Xu4bv5Z1t404FGTqQXOh zV07Ej3dgTttLOXx bSMAaE8itwwqi9rajpsv StEwFYItYUz0KKx3KWJz gOjdXaVsHZF5RdZ6RQV3 dGWfhV9mtOeetvrh pS0eTsj+VuAvOQvzYW71 CK07xWXhy2I0jRB1V5Hy AWInbnbnuuewcDF2FZTx XPZdqE43xDTcHOhl Qo9ox2S5y917WGVgFTFs wN66We1rqPicSNAheSIC xN3ixmedv9efywhgMpTp DGPuPHa8DOl2AUXs kUaeLaNbJZD2RkQ1QMB7 oCZxnJ8jhWwroopbiL1b Oyc+L3Q7kUZ3mAZjaQgw dGQ+TL70hs94L0Ck UiezQkh9NZEuZJL3wHQ6 hK5uHLJrCMpam9A5vBD2 T7FixdEqjk8iq4ldKDXi UVzeR14ieQOdr7I6 WFHbnRU7QFHtyUgiGqFg eP48Jrl+NNMjxUups3Jg Refdx3ifn0ehrDk9RnGu JSIgdmFsaWduPSJ0 m3WiOe45G77jIFapZUCg VNUiDPFjTKAyvLajhd5y hO2tRs3+VWJiwFY8aSG4 pN7sAkGoAoT4WHuq J646QnNpdHJqXgvlg6pw m8mfkQe3TjJqYELpdxKf jEvpNSH7z3MzSw16I2Zl ePyof8QtNlp0sd62 zYYqg8S5pAY9Z3EePPKz wxxflKGpqCbtYL9xGUTx vlanHNGtlZ2uJGNzO4w7 XkDsNqT7NUnsD5Kt buY0ZMDkiLMmJVOxeVXI eO2esduom6weenarYtPp NKYsDUn1QAj1KNPajSju YuLxSNV3IcN1ZGH4 iLBghM4hbBjmoyctbW8m Oyc+TJk2j3suyLKhEE1j cLY5NC10UY08kTOdh8B0 kBA7E9DgZFIqegwu wanvwFX9NCOlOHQlvP02 Gg2ozOqyTu0sWJHqDEJ2 LCQwjQXeO1GbfY4jMkYi TWAxCJEqN5VkdSYx HNrrA602RFxaNzR3NCJu qxVgG0MjMTHyyNklQiY5 l1J2Cz4TUW94AH15OL31 tSBoh9T2wPZ2N3Jx VXVpngwhdtpmgVE7UJJv FSIazJ53Db8fsKwfUc4e CVInAFH0FWEhyZSuS2Zm nE0yUxLwIGYvSITd H4ZmeGXxABmkM748ZJed LaA1FNGcvsHgG7GhWCAm sYmnVcB9f4C6Tp7FGq62 HI06LX26jEVpy0N6 jUP5X7XoGMKviezhpsss bJG6JWZaFXBmgA82Jn0f cDlkHk5yALMkRMS8YAGa hHOyF0OalY6eLhFo ZSJhCZQqR8MakNWfMFvx T211HFoyRgO9BKNffrGu H4TyBXUocWjiJzV7z7F9 If4TZWbbtre2H6Hl PjwvdHI+YL93EZFiHO04 oBMaeJQan0tgmVs2EmWh IZIqWBJ3fUiqZLlmn0Rv GMWuV05yfRSay6D6 IGNv (more content not included)... Normal [facility] Coding Summary. CD:[id number]:[id number] Gh0bWw+PGhlYWQ+PE1FV DEdC32oaJRwxR2NF9vDZ Q8SWGLDHDRPII1OSE7wm NU4UMiyI5VdfrJx AiipzGRvTS53YOb7QDP2 zMscBFcqkT9yaAUpO8m4 EmKhFV08gN47KQulGYMl CbK9NsVgrjhieXZh A0rgTsEboNTeTku+PHRh YmxlIHdpZHRoPScxMDAl JfMemJcoSA3tCa4sBFWe LWNvbGxhcHNlOiBj o7dmQODhIGnsRA4yxPqi A7WtvKK4JCPtn4j4Xx48 dHI+KONuQNW7gUuuAPoi p218OhWmo3ofIPQ9 yENbXWmfPDB4M45od5Y7 CHJiESGpLYS8dWB2fE1q pLxophfyA5WdeKZoOyE8 XZL5mSEicX8hsFmd wxydxV1vSrv+S52IHH8C PFYSKN6GNmy9G2OdAyke dHI+UC11XYLbQI27zDEz jOVpr1hwcCb1VxFm CHAhUJP4pZysGFpts9Nu IJTwU78vaZRfh4T3LRHw jJpkkWEaHuTlbEP0sY2d BXlyiubiu8kvdjdr Lokmr5rqsa76cK11A52h TMrmWCIkYLT7STJoCICj lRelxg6qsP5tSb4+IDxj e7aww2alrIj7FrLz JCGaupTixHrbPRA1c0Pd Mp28T4PpsLzuq4RpFhc4 ik37nILps6R5kSW1SIbq RRLaoB8lLJypDiI0 MDWpDyUtzA83tOTqJTpo Mo6jkYfwgUzfII4rSSMq bdzcIHMleL4iQHCoeZLy wOlkGP6vNRIyursu f717IeAiIWS8XVQlbVAm J2JtwQ6xBfBlRUJcXHNc C2KwiYJpNTvtE509CZfw BlD3CJPyltHwB3Ay DFRsuZieMmP5b6O4By6S e1EuhqehXAS4HYccGXHw LeZ6LgXxUvX0K5RhOyy9 QZIkrRnfWF9uN0Oh GFLuiseyirxwbBI6UXRd YCGrvU33gCUgKFduWc8u y8J1t868FCSoZFIwjO45 Zh6btCxiRNCcjSRY bG9cwhpxa7gxqwdnMxIz ZXSzLUf9ZLh1GVLucZdu OoUyLAV3PrB5HMO4fMZf wB4lrIlvawqptP3u Oyc+M23abQ5ySVN8BFZ4 zaxeSLKssoBrAU64QL94 R6ZmRdoxyGPkfKX+PGRp njZjnWccEF6iBaTk a6rgn6UsSXmdF7EjJMWd ICotMyq1YNYbACK2nAU6 xL4hEIXbHOill9J3kWI3 Y2AdjeVnlh9et9gh FBEcPSgcF22mlYAfy2H3 IRJjtPE9RSVxwNoaFjKu bA48Wtv+VBBcxCkdx0Uv Bxxnc7tnm8qlvZu7 IjMwJSIgdmFsaWduPSJ0 u9BqGw48Z94uIAqgVYVw OWOoUXVyGVMdmUztgg3c lP3dFy6+PGNvbCB3 zAC0cH4yTOUoVhR0OOfa M999YfVyxTMhArmvi4pm e2tfvBt7PuRbFONpihCk yYccAOD9q9EtTt74 N83lWXygIWKcDEIwPXOf VKMfwEanfg9llP6cSn0+ RD7kl1ziqq56mO42qBD+ ORHmGFK8sYfmAXfg KQTomM0oNHeqLpK0VYNi TrVfcQ32lGTsCQryRi8s dWqpvNcbCN0fBCXitgfy a466WgXet6maGIFl cMKjTLjlGAO4M26dq8C3 MXUwTZBoEFX6kVI5mL2m bGlnbjogbGVmdDsgdmVy dRssKLljTWezV788 IHRvcDsnPlBhdGllbnQg CfWzVXs9E4WzFkw1ONXi bWxxWM5ioIRtZEdjIh9k jMlcjJokIO2gXGQo lovzk838WfUgy4bkPHPo nQXoYTxvYGX5T33jm9Q5 OKNoQUTlFBU0yKI9wC3p bGlnbjogbGVmdDsg jwRuiFbsYOhsZOjyD134 IHRvcDsnPkJpcnRoIERh zKS6LV51IW11wLUem9Q7 bGK6G0PrVHPetzlz oqfovZT7TZJeBZJvmO64 Lk1nhGqhCc9hTBZkXYF9 HHPnnKBiD6JmpZ3gDvGz SHHkLYKaV2DdvEXw CVkgG024BIqyArR4RLOm wlKjB8PaQNBsoExgJpV1 b5H6Et6PX8G4IT53EE89 nVAjz1S8tVO1W1Ai UPCelxnmgypmxDU8LNLa XWOqlP90Yr6lyFagWe2a RXJtKKG9FMMjfLQtP8Bm yB5zNoBsSKWgVAIm D6ZrxLYsVSysS673HYdz XuN2CMGcewDgC0TlOYVn tUhzGxN8f3J0Bn5FZEi2 LQ46GQ42fHWtg5E4 uXQ2P5PdPEWzqzpxxenz yIS4AYJpURGlrM14Aw2f sFhoAk8hISVzHES2VAFh pKAcI3WwqU4dFkLa TOUlLPZzD8SqlDZaSGul Z719MHddSuQ7UZHqybFk I1XjEUGvyAzdPsF3y5B0 Yh8DXIJzII43BKM0 xHG2WR66NS98N3BgLqqw dGFibGU+PHRhYmxlIHdp ZHRoPScxMDAlJyBzdHls SZ5pJs0fTVBjIZBv gJwuyFGqMrOwj0riZJXp ATgeZY7peOfrJ8PwvME6 EYMub1j3Js31W38mA8Il dXA+MSMpsAE1lIT9 rH4sZmSxJzA6IRgzZ693 TlCybOOmNrbcq2ivc4kk uSx8BjL7VNNklnLdbKil QFD6r1DaLd61I55q IHdpZHRoPSIxNSUiIHZh rAscue6yjW1qOw3+PGNv yKQ7rOH5gL5dRzSqMqJ1 ARemQ891XaUouZKq Msyxp6hvd5efmSe7AjEu LOCujlQfrRarOAD2x8Ze Fi18Z5TjxKptf2AfLkv9 wz65bOMzt1R5hTO4 Q6QcAFAkeywtnKVdyXdj UW0aKDVkkzpoASZboG8b GUGvI9d0CeYaXcL8WSbr A2DfssW8PNRkdZXg BNalRVG5I44lq0U6VEEg ZQSpXKX9kVQ3yG8apBky bjogbGVmdDsgdmVydGlj XNiiMIarR310JZUu oWnkFBIfrW8fSTUubQEy zYpxJZ4jLGAxyjjrWrjY LMIuBIrVMQRVGA11OJ85 jXOqz5U6vOJ2Z9Cw DBVdrctyovclrPX2EGVt DNKjiB25eXVyJStlUy5d l2X2v426VOXpWARkbI75 Yx7geEwsRQIgqTNQ qX0lzpvaq5sogoybQyZo EMSrASy6CNx5WJAdsOvr LwEsJSE2JmB9HHJ9iNTj uQ6xsJmpuuuhkI6l Oyc+MHCtScpoXQt8VDiy dGQ+NHLjGXS3nLcsAXhc SQSsdD7eIDZxZ7c2DiZt OrI1MSseT4IhSVKb sxiyZz39gB3jYtGdSdL3 LImaN2VdduL1MUJojWIe VBsgFMP6C80wv2U9TDDw FLSoRCX0cZX3oU3d bGlnbjogbGVmdDsgdmVy aNqnXSzzIAujC940MIDo eRflJjLxXWurUEJhIE65 NX77qMPsc6T3sFE5 O0PsKRYddcvqyjfqfEV7 DBAfUPSyvF57cWKaBQpy Fp4xk0H2s061SVPyZPYe vK69Lk8onCcsTNEs nMEXgT2rondjh7skyzlx JmTfHCLvUHs1YDz0OQKi zBttDwPuZXB6VpZ0SWJ1 cRJnuJ1glKlpfinh bP3wZos+GvQxIKxuEQ79 WQ28jDIfe0U4lDQ8N0Pj UCPdkwisanxjnYJ6DKKv LYFajQ31gITqLGdt Ye7jo9E7q128UJUpLPBe mS55Df6raXyjZCTgsIJR sP4pfthkm1ixcoaiLuSz VVNpCXb7LRw3VQDu dRbxGiMsFKP3AuO3IIQ4 wOItnG3noVotgxxyuH3k Oyc+JZLwDMGfe4Ojh7Hy PG74HK57C2RdUiww dGFibGU+PHRhYmxlIHdp ZHRoPScxMDAlJyBzdHls UM1gIa9gVATiWNBhnBzl xDXdQeUkh5uwYEPx IJvpAV6psEtiA6OevKK9 WBWex3w9Da88J06nO3Jj dXA+ONLxxYM6dUG1sQ1e YhUoLqU5YFaoY240 IrPpyAQvLbyhb7jhm6qy aTl3IwWjOTCohfEccKmq SAU2j7XfWg31B98fESgz ZHRoPSIyMCUiIHZh eBkgch2noH7kLl6+PGNv iCT9hXW9lE9eCbCpCxY2 YRshL604AaEsiWKrYtbc I44jO4RklBG+PHRy Srl0CXFuyKvePA0zdTJu IModUq2wFMF3WgHsStWk ZDfeD6LiYZIjjtyhueuu dJX7WPYlSABrkS20 Gj3ncWaeLv4iECFjEXN9 WSCqfSKaS5MhmD2cVfFo FIRjNQDsD7PhoIDtITeo T156RGtaRwM1JAOj lwMwT9UyTPLabQooJlP4 j8A1Vy2GgNexsPTtKU6o UtFwMNu9J3EjSzp9ZYZy uTxtUN2leOKtOKla Vg6heWwsxOxeMX0qRIKb cpkeh538BlFtu1zgPWXt lBMdSUzwVTB4R01jr0B1 XRLrPXTsTLF8tBG8 vZ2erOfnywyybSSweGbw lkZjkFclCIbdFJvyH557 EPMihUbnXpYPCgv1A0Kq Spn1SIOcmBsgTH4f qGBxDRdgOn9tfTqkjTty CZ4kEWEpkxqra143MtJu v9cjRNSwjQQlTEjePJP5 E91rd2P5IKPnCWWs IVU0xFQ3oI9soWcfenqw bGVmdDsgdmVydGljYWwt HCcoS419RUPcdFzeAb5N Fbl9B3McKji4RWPq pJplZS2rdLPkIPtbRw6b eUomeGafVD2nXKZhvmfr e718GaGyd0psSCFtqNOr LLavARP5W54wp3U3 JBNvZHFjPXH3lLT7nR3m bGlnbjogbGVmdDsgdmVy dQupPMjoRMylT231IQYc cDsnPlBheWVyOjwv dGQ+FI65fu36B8VdRfxm Kez5VNExHZJ6iIC9qV7m ANMlLRdzb8D5sGP6Y2Td taQipt3ww2uoIMKk ZTog (more content not included)... Normal [facility] PAP [id number] 08-15-2021 Cytology report Cyto stain Doc (Cvx/Vag) Note Invalid Interpretation Code [facility] Comment on above: Result Comment: TEST S RESULT FLAG UNITS REF RANGE LAB Clinician Provided Cytology Information Source.............Endocervix No. of containers..01 ThinPrep Vial DIAGNOSIS: 01 NEGATIVE FOR INTRAEPITHELIAL LESION OR MALIGNANCY. Specimen adequacy: 01 Satisfactory for evaluation. No endocervical component is identified. Performed by: Byron Engle Architect Manager (ASCP) . 01 Note: Note 01 The [...] <-Panic Low,>-Panic High,A-Abnormal,AA-Critical Abnormal Performed at: [address] [id number] Mar Rivera MD, Performed By: #### 1 [id number] #### [facility] [address] [place] [address] HPV 16+18+31+33+35+39+45 +51+52+56+58+59+66+6 8 DNA Probe+sig amp Ql (Cvx) Negative Invalid Interpretation Code Negative [facility] Comment on above: Result Comment: This nucleic acid amplification test detects fourteen high-risk HPV types (16,18,31,33,35,39,45,51,52,56,58,59,66,68) without differentiation. Performed at: [facility] [id number] MD Nicole Manuel Performed at: =[facility] [id number] MD Nicole Manuel Performed By: #### 1 [id number] #### [facility] [address] [place] [address] Insulin Lvlon 08-11-2021 Insulin Qn 24.3 u[IU]/mL Invalid Interpretation Code 2.6-24.9 [facility] Comment on above: Result Comment: Perf ormed at: [facility] [id number] PhD Archie Jha Performed By: #### 1 [id number] #### [facility] [address] [place] [address] Consent for Treatmenton 07-29 Consent for Treatment [id number] #1.00CD:127 Normal [facility] Glu Fastingon 08-10-2021 Glucose [Mass/Vol] 95 mg/dL Normal 55-99 [facility] Comment on above: Performed By: #### 1 [id number] #### [facility] [address] [place] [address] Physician Orderon 08-10-2021 Physician Order [id number] 2#1.00CD:127 Normal [facility] PAP [id number] 08-09-2021 Collection Technique BRUSH-SPATULA Normal F [facility] Comment on above: Performed By: #### 1 [id number] #### [facility] [address] [place] [address] Gynecological Body Site ENDOCERVIX Normal [facility] Comment on above: Performed By: #### 1 [id number] #### [facility] [address] [id number] Physician Orderon 08-09-2021 Physician Order [id number] #1.00CD:127 Normal [facility] Gynecology Office/Clinic [...] Pablo.br\Date and Time Signed: 02/17/19 12:09 EDT Vital Signs Date Time Vital Sign Value Performing Clinician Facility 09-08-2024 08:28-0500 Body mass index (BMI) [Ratio] 35.56 kg/m2 [employer] Work Phone: [facility] 09-08-2024 08:28-0500 Body weight 88.18 kg [employer] DO Work Phone: [facility] 09-08-2024 08:28-0500 Diastolic blood pressure 90 mm[Hg] [employer] DO Work Phone: [facility] 09-08-2024 08:28-0500 Systolic blood pressure 132 mm[Hg] [employer] Work Phone: [facility] 08-27-2024 11:45-0500 Body mass index (BMI) [Ratio] 35.08 kg/m2 [employer] Work Phone: [facility] 08-27-2024 11:45-0500 Body weight 87 kg [employer] Work Phone: [facility] 08-27-2024 11:45-0500 Diastolic blood pressure 82 mm[Hg] Immanuel Yobani DO Work Phone: [facility] [...] Work Phone: [facility] 06-15-2024 10:27-0500 Diastolic blood pressure 88 mm[Hg] Cele Rodriguez MD Work Phone: [facility] 06-15-2024 10:27-0500 Heart rate 99 /min Cele Rodriguez MD Work Phone: [facility] 06-15-2024 10:27-0500 Respiratory rate 18 /min Cele Rodriguez MD Work Phone: [facility] 06-15-2024 10:27-0500 Systolic blood pressure 137 mm[Hg] Cele Rodriguez MD Work Phone: [facility] 05-25-2024 11:46-0400 Body mass index (BMI) [Ratio] [...] Body mass index (BMI) [Ratio] 34.53 kg/m2 [facility] 03-27-2024 10:27-0400 Body weight 85.64 kg [facility] Nurse [facility] 03-27-2024 10:27-0400 Diastolic blood pressure 70 mm[Hg] [facility] Nurse [facility] 03-27-2024 10:27-0400 Systolic blood pressure 120 mm[Hg] [facility] Nurse [facility] 01-02-2024 09:15-0400 Body height 157.48 cm [facility] 01-02-2024 09:15-0400 Body mass index (BMI) [Ratio] 33.9 kg/m2 [facility] 01-02-2024 09:15-0400 Body temperature 100.2 [degF] [facility] 01-02-2024 09:15-0400 Body weight 84.08 kg [facility] 01-02-2024 09:15-0400 Heart rate 115 /min [facility] 01-02-2024 09:15-0400 Respiratory rate 18 /min [facility] 01-02-2024 09:15-0400 SaO2% (BldA) [Mass fraction] 99 % [facility] Encounters Encounter Date Encounter Type Care Provider Facility Start: 09-22-2024 End: 09-22-2024 Bamboo flowsheet Immanuel Yobani DO Work Phone: [facility] Start: 09-22-2024 End: 09-22-2024 Bamboo flowsheet Immanuel Yobani DO Work Phone: [facility] Start: 09-20-2024 Non-patient / Non-visit [facility] Work Phone: Start: 09-16-2024 End: 09-16-2024 Clinisync Result Encounter [...] Phone: [facility] External [facility] Unsolicited Start: 09-12-2024 Non-patient / Non-visit [facility] Work Phone: Start: 09-09-2024 End: 09-09-2024 Clinisync Result Encounter Immanuel Yobani DO Work Phone: [facility] Unsolicited Start: 09-09-2024 End: 09-09-2024 Clinisync Result Encounter Immanuel Yobani DO Work Phone: [facility] Unsolicited Start: 09-09-2024 Non-patient / Non-visit [facility] Work Phone: Start: 09-08-2024 End: 09-08-2024 Bamboo flowsheet Immanuel [...] Phone: [facility] Unsolicited Start: 08-05-2024 Non-patient / Non-visit [facility] Work Phone: Start: 07-20-2024 End: 07-20-2024 Bamboo flowsheet Immanuel [...] 07-20-2024 ambulatory IMMANUEL YOBANI Not Available Start: 06-29-2024 Non-patient / Non-visit [facility] Work Phone: Start: 06-22-2024 End: 06-22-2024 Bamboo flowsheet Immanuel [...] Cele Rodriguez MD Work Phone: [facility] [place] Comment on above: 21 weeks gestation o f (Primary Dx); Chronic hypertension affecting ; In vitro fertilization Start: 06-15-2024 End: 06-15-2024 ambulatory CELE RODRIGUEZ [facility] Start: 05-28-2024 End: 05-30-2024 Clinisync Result Encounter Immanuel Yobani DO Work Phone: [facility] Unsolicited Start: 05-28-2024 End: 05-30-2024 Clinisync Result Encounter Immanuel Yobani DO Work Phone: [facility] External [facility] Unsolicited Start: 05-27-2024 End: 05-27-2024 Chart abstracting Cele Rodriguez MD Work Phone: [facility] Start: 05-25-2024 End: 05-25-2024 Bamboo flowsheet [...] Not Available Start: 01-02-2024 End: 01-02-2024 ambulatory [facility] Work Phone: Start: 01-02-2024 End: 01-02-2024 Patient encounter procedure [facility] Work Phone: Start: [...] malign ant neoplasm of cervix Pap Smear [facility] Start: 06-15-2025 Tobacco Screening Tobacco Screening [facility] Start: 09-22-2024 End: 09-22-2024 Patient encounter procedure [facility] Comment on above: Arrived Start: 09-20-2024 Urine culture [facility] Start: 09-08-2024 End: 09-08-2025 Alanine aminotransferase [Enzymatic activity/volume] in Serum or Plasma ALT Lab Routine induced hypertension, antepartum Expected: 09/08/2024 (Approximate), Expires: 09/08/2025 [facility] Comment on above: Expected: 09/08/2024 (Approximate), Expires: 09/08/2025 Start: 09-08-2024 End: 09-08-2025 Aspartate aminotransferase [Enzymatic activity/volume] in Serum or Plasma AST Lab Routine induced hypertension, antepartum Expected: 09/08/2024 (Approximate), Expires: 09/08/2025 [facility] Comment on above: Expected: 09/08/2024 (Approximate), Expires: 09/08/2025 Start: 09-08-2024 End: 09-08-2025 CBC W Auto Differential panel - Blood CBC and differential Lab Routine induced hypertension, antepartum Expected: 09/08/2024 (Approximate), Expires: 09/08/2025 [facility] Comment on above: Expected: 09/08/2024 (Approximate), Expires: 09/08/2025 Start: 09-08-2024 End: 09-08-2025 Creatinine [Mass/volume] in Serum or Plasma Creatinine Lab Routine induced hypertension, antepartum Expected: 09/08/2024 (Approximate), Expires: 09/08/2025 [facility] Work Phone: Comment on above: Expected: 09/08/2024 (Approximate), Expires: 09/08/2025 Start: 09-08-2024 End: 09-08-2025 Lactate dehydrogenase [Enzymatic activity/volume] in Serum or Plasma by Lactate to pyruvate reaction Lactate dehydrogenase Lab Routine induced hypertension, antepartum Expected: 09/08/2024, Expires: 09/08/2025 [facility] Comment on above: Expected: 09/08/2024 , Expires: 09/08/2025 Start: 09-08-2024 End: 09-08-2025 Protein, urine, 24 hour Protein, urine, 24 hour Lab Routine induced hypertension, antepartum Expected: 09/08/2024 (Approximate), Expires: 09/08/2025 [facility] Comment on above: Expected: 09/08/2024 (Approximate), Expires: 09/08/2025 Start: 09-08-2024 End: 09-08-2025 Pt and ptt Pt and ptt Lab Routine induced hypertension, antepartum Expected: 09/08/2024, Expires: 09/08/2025 [facility] Comment on above: Expected: 09/08/2024 , [...] AM EST Routine [facility] [address] [place] [id number] Immanuel Hilton, DO [address] [place] [address] [facility] Start: 08-27-2024 End: 08-27-2024 Professional / ancillary services management 08/27/2024 11:00 AM EST Ancillary Procedure [facility] [address] [place] [id number] [facility] Start: 08-12-2024 End: 08-12-2025 [...] mellitus screening Expected: 07/20/2024 (Approximate), Expires: 07/20/2025 [facility] Comment on above: Expected: 07/20/2024 [...] End: 06-15-2024 Patient encounter procedure [facility] Start: 05-25-2024 End: 11-23-2024 Alpha fetoprotein, maternal [...] Procedure [facility] [address] [place] [address] [facility] Start: 04-27-2024 End: 04-27-2025 US Pelvis transvaginal US OB transvaginal Imaging Routine Encounter for screening for cervical length Expected: 04/27/2024 (Approximate), Expires: 04/27/2025 [facility] Work Phone: Comment on above: Expected: 04/27/2024 (Approximate), Expires: 04/27/2025 Start: 04-27-2024 End: 04-27-2024 Patient encounter procedure 04/27/2024 10:20 AM EDT Routine [facility] [address] [place] [id number] Immanuel Hilton, DO [address] [place] [address] [facility] Start: 03-29-2024 COVID-19 Vaccine ( season) COVID-19 Vaccine ( season) [facility] Start: 03-29-2024 Influenza vaccination [facility] Start: 03-27-2024 End: 03-27-2025 ABO/Rh ABO/Rh Lab Routine Missed menses Expected: 03/27/2024 (Approximate), Expires: 03/27/2025 [facility] Comment on above: Expected: 03/27/2024 (Approximate), Expires: 03/27/2025 Start: 03-27-2024 End: 03-27-2025 Blood type and Indirect antibody screen panel - Blood Type and screen Lab Routine Missed menses Expected: 03/27/2024 (Approximate), Expires: 03/27/2025 [facility] Work Phone: Comment on above: Expected: 03/27/2024 (Approximate), Expires: 03/27/2025 Start: 03-27-2024 End: 03-27-2025 US Pelvis transvaginal US OB transvaginal Imaging Routine Missed menses Expected: 03/27/2024 (Approximate), Expires: 03/27/2025 [facility] Comment on above: Expected: 03/27/2024 (Approximate), Expires: 03/27/2025 Start: 2020 Screening for malign ant neoplasm of cervix Pap Smear [facility] Start: 2018 DTaP,Tdap and Td Vac cines (1 - Tdap) DTaP,Tdap and Td Vaccines (1 - Tdap) [facility] Start: 2017 Adult BMI Screening Adult BMI Screen ing [facility] Start: 2011 Depression Screening Depression Scre ening [facility] Start: 2011 Tobacco Screening Tobacco Screening [facility] Start: 1999 Screening for Chlamy leoncio trachomatis Chlamydia Screening [facility] Bacteria identified in Urine by Culture Urine culture Microbiology Routine Missed menses Ordered: 03/27/2024 [facility] Comment on above: Ordered: 03/27/2024 CBC W Auto Different ial panel - Blood CBC and differential Lab Routine Missed menses Ordered: 03/27/2024 [facility] Comment on above: Ordered: 03/27/2024 CHLAMYDIA TRACHOMATI S (GENITO/STI) CHLAMYDIA TRACHOMATIS (GENITO/STI) Lab Routine STD exposure Ordered: 05/25/2024 [facility] Comment on above: Ordered: 05/25/2024 Cytology [...] Managed C are - [employer] [id number]. [id number] 2023 [facility] [id number]. [id number] 2023 Unknown [id number] 2021 Private Health Insurance 1.2 .840.370381.1.13.693.2. [id number] 2021 Unknown 1.2.840.787484. 1.13.693.2. 7.3.538191.315 2021 Unknown [id number] 1999 Unknown [id number] 2.16.840.1.152832.3.579.2. 593 1999 Unknown [id number] 2.16.840.1.072573.3.579.2. 593 1999 Unknown [id number] 2.16.840.1.298861.3.579.2. 593 1999 Unknown [id number] 2.16.840.1.974140.3.579.2. 593 1999 Unknown [id number] 2.16.840.1.607407.3.579.2. 593 1999 Unknown [id number] 2.16.840.1.958960.3.579.2. 593 1999 Unknown [id number] 2.16.840.1.176747.3.579.2. 593 1999 Unknown [id number] 2.16.840.1.321612.3.579.2. 1286 1999 Unknown [id number] 2.16.840.1.710920.3.579.2. 1286 1999 Unknown [id number] 2.16.840.1.682396.3.579.2. 1259 1999 Unknown [id number] 2.16.840.1.324547.3.579.2. 1259 1999 Unknown [id number] 2.16.840.1.824873.3.579.2. 1258 1999 Unknown [id number] 2.16.840.1.009050.3.579.2. 1259 1999 Unknown [id number] 2.16.840.1.178329.3.579.2. 1259 1999 Unknown [id number] 2.16.840.1.397545.3.579.2. 1259 1999 Unknown [id number] 2.16.840.1.705747.3.579.2. 1259 1999 Unknown [id number] 2.16.840.1.130916.3.579.2. 1259 1999 Unknown [id number] 2.16.840.1.196207.3.579.2. 1259 1999 Unknown [id number] 2.16.840.1.546832.3.579.2. 1259 1999 Unknown [id number] 2.16.840.1.698403.3.579.2. 1259 1959 Private Health Insurance [id number] 1959 Unknown [id number] Social History Date Type Detail Facility Tobacco smoking stat [facility] Unknown if ever smoked [facility] Work Phone: Start: 2000 Sex Assigned At Female F [facility] Start: 01-02-2024 End: 05-27-2024 Tobacco smoking status NHIS Never smoked tobacco [facility] Start: 01-02-2024 End: 05-27-2024 Tobacco use and exposure Smokeless tobacco non-user [facility] Start: 04-27-2024 End: 08-27-2024 Alcoholic beverage intake Ex-drinker (finding) [facility] Start: 01-02-2024 End: 06-15-2024 History of Social function [facility] Start: 01-02-2024 End: 06-15-2024 Tobacco use panel [facility] Start: 01-29-2024 [facility] Start: 11-26-2023 Gender identity Identifies as female gender (finding) [facility] Start: 05-27-2024 End: 06-15-2024 Alcoholic beverage intake Lifetime non-drinker (finding) [facility] Start: 1999 Sex assigned at Not on file P [facility] Start: 05-26-2024 End: 09-22-2024 Sex Female (finding) [facility] Work Phone: Medical Equipment Procedure Code Equipment Code Equipment Origin al Text Equipment Identifier Dates 1 strip by In Vi tro route Daily Use in the morning prior to breakfast, 1 hour after each meal for a total of 4times daily. [id number] Start: 07-20-2024 End: 08-19-2024 1 each by In Vit ro route Daily Use to check FSBS four times daily [id number] Start: 07-20-2024 End: 08-19-2024 Goals Date Patient Goal Desired Activity /State Personal health goal Clinical Notes 03-27-2024 to 09-08-2024 Chika Tracy, [employer] - 09/08/2024 8:30 AM JAGDEEPburton Peter, [employer] - 08/27/2024 11:40 AM Donell Tracy, [employer] - 08/12/2024 11:10 AM Kamille Garcia, [place] - 07/20/2024 10:20 AM EST Note Date [...] apply, As needed Blood Glucose Monitoring Suppl ([employer] Glucometer) w/Device kit 1 kit, Does not apply, Daily, Use four times daily to check FSBS. In the morning prior to breakfast & 1 hour after each meal for a total of 4times daily. Continuous Glucose Load Blocker ([employer] Jenise [address] [place]) device 1 each, Does not apply, Every 14 days Continuous Glucose Sensor (FreeStyle Jenise 3 Sensor) misc 1 each, Does not apply, Every 14 days Multiple Vitamin (multivitamin) tablet 1 tablet, Daily terconazole (Terazol 7) 0.4 % vaginal cream 1 applicator, Vaginal, Nightly ALLERGIES Allergies Allergen Reactions Sheridan Flavor [Sheridan Oil] Latex Hives, Itching, Rash and Swelling [...] nursing note reviewed. Exam conducted with a education manager present. Vitals: Estimated body mass index [...] encounter [facility] 08-27-2024 History of Present illness [...] apply, As needed Blood Glucose Monitoring Suppl ([employer] Glucometer) w/Device kit 1 kit, Does not apply, Daily, Use four times daily to check FSBS. In the morning prior to breakfast & 1 hour after each meal for a total of 4times daily. Continuous Glucose Load Blocker (FreeStyle Jenise 3 [place]) device 1 each, Does not apply, Every 14 days Continuous Glucose Sensor (FreeStyle Jenise 3 Sensor) misc 1 each, Does not apply, Every 14 days metroNIDAZOLE (FLAGYL) 500 mg, Oral, 2 times daily, Do not drink alcohol while taking this medication Multiple Vitamin (multivitamin) tablet 1 tablet, Daily ALLERGIES Allergies Allergen Reactions Sheridan Flavor [Sheridan Oil] Latex Hives, Itching, Rash and Swelling [...] nursing note reviewed. Exam conducted with a education manager present. Vitals: Estimated body mass index [...] from yesterday. Patients insurance did finally approve BULXe and patient is waiting for monitor to [...] apply, As needed Blood Glucose Monitoring Suppl (-[employer] Glucometer) w/Device kit 1 kit, Does not [...] 1 tablet, Daily ALLERGIES Allergies Allergen Reactions Sheridan Flavor [Sheridan Oil] Latex Hives, Itching, Rash and Swelling [...] nursing note reviewed. Exam conducted with a education manager present. Vitals: Estimated body mass index [...] mg, Oral, Daily ALLERGIES Allergies Allergen Reactions Sheridan Flavor [Sheridan Oil] Latex Hives, Itching, Rash and Swelling [...] mg, Oral, Daily ALLERGIES Allergies Allergen Reactions Sheridan Flavor [Sheridan Oil] Latex Hives, Itching, Rash and Swelling [...] Allergies: Allergies Allergen Reactions Latex, Natural Rubber Sheridan Meds: Prior to Admission medications Medication Sig [...] other morbidities. Based on the available evidence, [facility] recommends treatment with antihypertensive therapy [...] preeclampsia prevention as is recommended by the [employer] [employer] Committee Opinion No. 743. [...] Cele Rodriguez MD, FACOG (she/hers) Maternal- Medicine [facility] [address] [facility] [address] [place] [address] This document was created with [employer] technology. Though I make every effort to review the dictation as it is transcribed, on occasion the spoken word can be misinterpreted by the technology leading to inappropriate words, phrases, or sentences. This note is addressed to the requesting provider as a consultation for clinical guidance. Specific medical abbreviations are occasionally used and those are generally approved by the [place]?Board of?Obstetrics and?Gynecology?as well as?Kenzie croft abbreviations. The above plan of care was based solely on the diagnoses for which a consultation was requested. ?More frequent testing may be indicated based on her other medical/obstetrical conditions. The management of other or medical conditions is beyond the scope of requested consultation and will continue to be followed by the primary geospatial technologist or primary care provider. Note to patient: [...] IVF Have you been seen here at [facility] in a previous ? N/a Recent ER visits or hospitalizations? no Bring blood sugar log or meter with you today? (Please bring them with you for every visit at [facility]) no Flu vaccine (May-September)? no Any concerns that you would like me to mention to the provider today? no documented in this encounter [employer] 05-25-2024 History of Present illness Narrative Reason [...] mg, Oral, Daily ALLERGIES Allergies Allergen Reactions Sheridan Flavor [Sheridan Oil] Latex Hives, Itching, Rash and Swelling [...] nursing note reviewed. Exam conducted with a education manager present. Vitals: Estimated body mass index [...] mg, Oral, Daily ALLERGIES Allergies Allergen Reactions Sheridan Flavor [Sheridan Oil] Latex Hives, Itching, Rash and Swelling [...] nursing note reviewed. Exam conducted with a education manager present. Vitals: Estimated body mass index [...] with IVF . [facility] also [facility] and Level [...] or undercooked meat, and stay away from [facility]. Patient has been consulted regarding any further [...] Procedure Laterality Date TONSILLECTOMY Allergies Allergen Reactions Sheridan Flavor [Sheridan Oil] Latex Hives, Itching, Rash and Swelling [...] or undercooked meat, and stay away from [facility]. Patient has also been advised to not [...] Evaluation note No assessment inform ation available [facility] Work Phone: Evaluation note Diagnosis Well [...] SystemInstructionsNot on filedocumented in this encounter [facility] filedocumented in this encounter [facility]* Attachments The following attachments cannot be sent through Care Everywhere. * [facility] ([place] Purpose Family History Relationship Condition Age at Onset Recorded Date/T yosi family member Unknown Heart disease Unknown Relationship Condition Age at Onset Recorded Date/T yosi aunt Unknown Heart disease Unknown Advance Directives Advance Directive Response Recorded Date/ Time Advance Directives No January 01 4 9:07am Advance Directive Response Recorded Date/ Time Advance Directives No January 01 4 8:07am Chief Complaint and Reason for Visit Chief Complaint Congestion Additional Source Comments INFORMATION SOURCE (unrecogn ized section and content) DATE CREATED AUTHOR 03/06/2019 [employer] [facility] DATE CREATED AUTHOR AUTHOR'S ORGANIZ ATION 12/21/2021 [facility] DATE CREATED AUTHOR AUTHOR'S ORGANIZ ATION 12/01/2022 [facility] DATE CREATED AUTHOR AUTHOR'S ORGANIZ ATION 06/17/2024 [facility] DATE CREATED AUTHOR AUTHOR'S ORGANIZ ATION 09/09/2024 [facility] Care Teams (unrecognized sec tion and content) Team Status: Active Member Role Status Dates Damon Stover DO Primary Care Provider Active Team Status: Inactive Member Role Status Dates Damon Stover DO Primary Care Provider Active Start: January 02, 2024 End: January 02, 2024 Teresa Sanchez APRN Attending Provider Active S tart: January 02, 2024 End: January 02, 2024 Account Executive Sales Representative Relationship Specialty Start Date End Date Akila Grant MD [address] [facility] [place] [phone] PCP - General Family Medicine 11/27/23 Account Executive Sales Representative Relationship Specialty Start Date End Date Akila Grant MD [address] [facility] [place] [phone] PCP - General Family Medicine 11/27/23 Account Executive Sales Representative Relationship Specialty Start Date End Date Akila Grant MD [address] [facility] [place] [phone] PCP - General Family Medicine 11/27/23 Account Executive Sales Representative Relationship Specialty Start Date End Date Akila Grant MD [address] [facility] [place] [phone] PCP - General Family Medicine 11/27/23 Account Executive Sales Representative Relationship Specialty Start Date End Date Akila Grant MD [address] [facility] [place] [phone] PCP - General Family Medicine 11/27/23 Account Executive Sales Representative Relationship Specialty Start Date End Date Akila Grant MD [address] [facility] [place] [address] PCP - General Family Medicine 11/27/23 Account Executive Sales Representative Relationship Specialty Start Date End Date Akila Grant MD [address] [facility] [place] [address] PCP - General Family Medicine 11/27/23 Account Executive Sales Representative Relationship Specialty Start Date End Date Akila Grant MD [address] [facility] [place] [address] PCP - General Family Medicine 11/27/23 Account Executive Sales Representative Relationship Specialty Start Date End Date Akila Grant MD [address] [facility] [place] [address] PCP - General Family Medicine 11/27/23 Account Executive Sales Representative Relationship Specialty Start Date End Date Akila Grant MD [address] [facility] [place] [address] PCP - General Family Medicine 11/27/23 Account Executive Sales Representative Relationship Specialty Start Date End Date Akila Grant MD [address] [facility] [place] [address] PCP - General Family Medicine 11/27/23 Account Executive Sales Representative Relationship Specialty Start Date End Date Akila Grant MD [address] [facility] [place] [address] PCP - General Family Medicine 11/27/23 Account Executive Sales Representative Relationship Specialty Start Date End Date Akila Grant MD [address] [facility] [place] [address] PCP - General Family Medicine 11/27/23 Account Executive Sales Representative Relationship Specialty Start Date End Date Akila Grant MD [address] [facility] [place] [phone] PCP - General Family Medicine 11/27/23 Account Executive Sales Representative Relationship Specialty Start Date End Date Akila Grant MD [address] [facility] [place] [phone] PCP - General Family Medicine 11/27/23 Account Executive Sales Representative Relationship Specialty Start Date End Date Akila Grant MD [address] [facility] [place] [phone] PCP - General Family Medicine 11/27/23 Team Status: Active Member Role Status Dates Damon Stover , DO Primary Care Provider Active Start: June 29, 2024 Chad Murcia DO Attending Provider Active Sta rt: June 29, 2024 Team Status: Active Member Role Status Dates Damon Stover DO Primary Care Provider Active Start: August 05, 2024 Immanuel Hilton , DO Attending Provider Active Start : August 05, 2024 Team Status: Active Member Role Status Dates Damon Stover DO Primary Care Provider Active Start: September 09, 2024 Immanuel Yobani , DO Attending Provider Active Start : September 09, 2024 Team Status: Active Member Role Status Dates Damon Stover , DO Primary Care Provider Active Start: September 12, 2024 Immanuel Yobani , DO Attending Provider Active Start : September 12, 2024 Team Status: Active Member Role Status Dates Damon Stover DO Primary Care Provider Active Start: September 20, 2024 Akila Grant MD Attending Provider Active St art: September 20, 2024 Goals (unrecognized section and content) Goals may be documented in a n alternate sectionNot on filedocumented as of this encounterNot on filedocumented as of this encounterNot on filedocumented as of this encounterGoals may be documented in an alternate section Reason for Visit (unrecogniz ed section and [...] BE BASED ON THE PRIMARY CLINICAL RECORDS. [employer] provides no warranty or guarantee of the accuracy or completeness of information in this document.
[2024-09-22 13:06] LABS: Total Protein Urine Random 23.9 mg/dL (<=11.9)
[2024-09-22 14:33] LABS: Total Volume 24 Hour Urine 1000 mL/24hr
== END 2024-09-22 12:11 | disposition home or self-care (01) ==
LOC: LAB 12:10
PROVIDERS: PCP Family Medicine; Visit Provider Obstetrics & Gynecology
DX: O24.419 Gestational diabetes mellitus in pregnancy, unspecified control (principal); O13.9 Gestational [pregnancy-induced] hypertension without significant proteinuria, unspecified trimester; O09.813 Supervision of pregnancy resulting from assisted reproductive technology, third trimester
CPT/HCPCS: 84156

== ENCOUNTER 2024-09-22 14:41 | Outpatient (REF) | payer OTHER, BC, SELFPAY | END 2024-09-22 14:42 | disposition home or self-care (01) | LOC: LAB 14:41 | PROVIDERS: PCP Family Medicine; Visit Provider Obstetrics & Gynecology | DX: O24.419 Gestational diabetes mellitus in pregnancy, unspecified control (principal); O13.9 Gestational [pregnancy-induced] hypertension without significant proteinuria, unspecified trimester; O09.813 Supervision of pregnancy resulting from assisted reproductive technology, third trimester | CPT/HCPCS: 36415; 84156; 87081 ==

== ENCOUNTER 2024-09-23 00:11 | Outpatient (OUT) | payer OTHER, BC, SELFPAY ==
--- NOTE | 2024-09-23 | US_ITS ---
The [address] [address] Patient Name: ANNA MARIO MRN: [id number] date: 2000 Sex: F Assigned Patient Location: [facility] Current Patient Location: Accession/Order Number: [id number] Exam Date: 09/23/2024 12:21 Report Date: 09/23/2024 12:23 At the request of: LUIS DOTY DO Procedure: US OB BPP w non-stress BIOPHYSICAL PROFILE: CLINICAL INFORMATION: Gestational diabetes mellitus O24.419 COMPARISON: 09/16/2024 There is a single live intrauterine gestation in cephalic presentation. The reported gestational age is 35 weeks 6 days. The heart rate [id number] beats per minute. FINDINGS: TONE: 1 or more episodes of activity extension and flexion of extremity or opening and closing of the hand [Y] 2/2 GROSS BODY MOVEMENTS: 3 or more discrete body or limb movements [Y] 2/2 BREATHING MOVEMENTS: 1 or more episodes of breathing lasting at least 30 seconds [Y] 2/2 CAPRICE: A single deepest vertical pocket of amniotic fluid greater than 2 cm [Y] 2/2 CAPRICE: 10.6 cm . This is in low-normal range. Total score: 8/8 US/US OB BPP w non-stress IMPRESSION: NORMAL BIOPHYSICAL PROFILE. Impression dictated by: Chika Holden M.D.09/23/2024 12:23 PM Dictation Location: Vascular Closure Electronically authenticated by: [id number] Y Date: 09/23/2024 12:23
--- OUTSIDE RECORDS SUMMARY | 2024-09-23 00:14 | XMS_ITS | CCD ---
Author Organization [facility] Care Team Providers Care Forest Log[employer] Manager Name Role Phone YOBANI ., DR SMITH [...] Unavailable ZIEBER, DR LUCHO Johnson Consulting Unavailable YOBNAI ., DR SMITH Admitting Unavailable YBOANI ., DR SMITH Attending Unavailable YOBANI ., [...] DR SMITH Consulting Unavailable YOBANI ., DR SMTIH Admitting Unavailable YOBANI ., DR SMITH Attending Unavailable RUDY, DR AKILA Watson Primary Care Unavailable YOBANI ., DR SMITH Consulting Unavailable Akila Grant MD Primary Care Provider [phone] IMMANUEL HILTON R Referring Unavailable CELE RODRIGUEZ [...] Latex Drug allergy (disorder) 0 hives [facility] Rep[facility] (1 source) orange flavor Drug allergy (disorder) 0 [facility] (6 sources) [place] - fruit; Translations: [ORANGE] 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 4 anaphylaxis [facility] (20 sources) Latex 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 4 Hives, Itching, Rash, Swelling [facility] (20 sources) orange allergenic extract Drug Allergy 4 [facility] Work Phone: (1 source) natural latex [...] 2024 11:00pm aspirin 81 mg chewable tablet (15 sources) Platelet Aggregation Inhibitor, Nonsteroidal Anti-inflammatory Drug [...] Glucose Monitoring Suppl (D-Care Glucometer) w/Device kit (20 sources) Start: 07-20-2024 End: 07-20-2025 Blood Glucose [...] MCG/0.5ML injection 11/26/2023 03/27/2024 Discontinued Continuous Glucose [employer] Hrms Developer (FreeStyle Jenise 3 [place]) device (15 sources) Start: 08-20-2024 Continuous Glucose [employer] Hrms Developer (FreeStyle Jenise 3 [place]) device Indications: Gestational diabetes mellitus (GDM), antepartum, gestational diabetes method of control unspecified , Third trimester 1 each every 14 (fourteen) days 1 each 3 08/20/2024 Active Continuous Glucose Sensor (FreeStyle Jenise 3 Sensor) misc (15 sources) Start: 08-20-2024 Continuous Glucose Sensor (FreeStyle [...] 11:00pm isopropyl alcohol 0.7 ml/ml medicated pad (20 sources) Start: 07-20-2024 Alcohol Swabs (Alcohol Prep [...] 11:00pm ondansetron 4 mg disintegrating oral tablet (8 sources) Serotonin-3 Receptor Antagonist Start: 04-13-20 End: [...] gt th every eight hours as needed ondansetron (Zofran) 4 MG tablet Take 4 mg by mouth every 8 (eight) hours if needed Active predniSONE 10 mg oral tablet (20 [...] [33 weeks gestation of ] 09-08-2024 Episodic Residual codes; unclassified (2 sources) Gestation period, 35 weeks; Translations: [35 weeks gestation of ] 09-22-2024 Episodic Thyroid disorders (1 source) Nontoxic single [...] [facility] Facility Urinalysis macro (dipstick) panel (U)on 09-22-2024 Bilirubin, UA Positive Negative - 4(70) +++ mg/dL [facility] Comment on above: small Blood, UA Positive Negative - 50 Jimy/mcL [facility] Comment on above: trace-intact Clarity, UA Clear [facility] Color, UA Cynthia [facility] Glucose, UA Negative Negative - 2000(110) ++++ mg/dL [facility] Interpretation and review of laboratory results Abnormal [facility] Ketones, UA Negative Negative - 160(16) ++++ mg/dL [facility] Leukocytes, UA Positive Negative - 500+++ Mychal/mcL [facility] Comment on above: small Nitrite, UA Negative Negative - Positive [facility] pH, UA 6 5 - 9 [facility] Protein, UA Positive Negative - 2000(20) ++++ mg/dL [facility] Comment on above: 30 Spec Grav, UA 1.02 1 - 1.03 [facility] Urobilinogen, UA 1.0 0.2 - 12 mg/dL [facility] - Chemistry and C hemistry - challengeon 09-20-2024 Bilirubin Ql (U) SMALL Abnormal NEGATIVE [facility] Glucose (U) [Mass/Vol] Negative NEGATIVE [facility] Ketones Ql (U) >=80 mg/dL Abnormal NEGATIVE [facility] pH (U) 5.5 [pH] 5.0-9.0 [facility] Specific gravity (U) [Rel density] >=1.030 Abnormal 1.005-1.025 [facility] Urobilinogen Qn (U) 0.2 {Brian'U}/dL 0.2-1.0 [facility] Laboratory - Specimen inform ationon 09-20-2024 Appearance (U) SL CLOUDY CLEAR [facility] Color (U) YELLOW YELLOW [facility] Laboratory - Urinalysison Leukocyte esterase Test strip Ql (U) TRACE Abnormal NEGATIVE [facility] Mucus Ql (Urine sed) LARGE Abnormal NONE SEEN [facility] Nitrite Ql (U) Negative NEGATIVE [facility] Protein Ql (U) 30 mg/dL Abnormal NEG/TRACE [facility] No Panel Informationon 09-20 Urine Bacteria SMALL #/HPF Abnormal NONE SEEN [facility] Urine Culture Reflexed YES[facility] Urine Microscopic Review YES [facility] Urine Occult Blood LARGE Abnormal NEGATIVE [facility] Urine Other Casts NONE SEEN #/LPF NONE SEEN [facility] Urine Other Crystals None Seen #/HPF None Seen [facility] Urine RBC 0-2 #/HPF 0-2 [facility] Urine Squamous Epithelial Cells FEW #/LPF Abnormal NONE/RARE [facility] Urine WBC 0-2 #/HPF Abnormal NONE SEEN [facility] US OB BPP W NON-STRESS on 09-16-2024 [place] [address] Ultrasound Report Signed Patient: AMY MARIO MR#: [id number] : 2000 Acct:[id number] Age/Sex: 24 / F ADM Date: 09/16/24 Loc: [facility] 250-[address]: Immanuel Hilton D.O. Ordering Physician: Immanuel Hilton D.O. Date of Service: 09/16/24 Procedure(s): US OB BPP w non-stress Accession Number(s): [id number] cc: Akila Grant M.D.; Immanuel Hilton D.O. [address] [address] Patient Name: AMY MARIO MRN: [facility]:[id number] date: 2000 Sex: F Assigned Patient Location: [facility] Current Patient Location: [facility] Accession/Order Number: [id number] Exam Date: 09/16/2024 09:04 Report Date: 09/16/2024 [...] 34 weeks 4 days. The heart rate [id number] beats per minute. FINDINGS: TONE: 1 or [...] Chika Holden M.D.09/16/2024 9:06 AM Dictation [facility] Electron[facility] authenticated by: [id number] Y Date: 09/16/2024 09:06 Dictated By: Chika Holden M.D. Signed By: 09/16/24908 DD/ 5 TD/TT: Arc Trimmer: [facility] Radiology, Radiologist, MD - 09/16/2024 [place] [address] Ultrasound Report Signed Patient: AMY MARIO MR#: [id number] : 2000 Acct:[id number] Age/Sex: 24 / F ADM Date: 09/16/24 Loc: [place] [address]-[address]: Immanuel Hilton D.O. Ordering Physician: Immanuel Hilton D.O. Date of Service: 09/16/24 Procedure(s): US OB BPP w non-stress Accession Number(s): [id number] cc: Akila Grant M.D.; Immanuel Hilton D.O. The [place] [address] Patient Name: AMY MARIO MRN: [facility]:[id number] date: 2000 Sex: F Assigned Patient Location: [facility] Current Patient Location: [facility] Accession/Order Number: [id number] Exam Date: 09/16/2024 09:04 Report Date: 09/16/2024 [...] 34 weeks 4 days. The heart rate [id number] beats per minute. FINDINGS: TONE: 1 or [...] Chika Holden M.D.09/16/2024 9:06 AM Dictation Location: [place] [address] Electronically authenticated by: [id number] Y Date: 09/16/2024 09:06 Dictated By: Chika Holden M.D. Signed By: 09/16/24908 DD/ 5 TD/TT: Arc Trimmer: [facility] Radiology Study observation (narrative) [facility] US OB BPP W NON-STRESS Ordered By: Radiologist Radiology on 09-16-2024 [facility] Work Phone: US OB GROWTHon 09-16-[address] [address] Ultrasound Report Signed Patient: AMY MARIO MR#: [id number] : 2000 Acct:[id number] Age/Sex: 24 / F ADM Date: 09/16/24 Loc: [facility] 250-[address]: Immanuel Hilton D.O. Ordering Physician: Immanuel Hilton D.O. Date of Service: 09/16/24 Procedure(s): US OB growth Accession Number(s): [id number] cc: Akila Grant M.D.; Immanuel Hilton D.O. [address] [address] Patient Name: AMY MARIO MRN: [facility]:[id number] date: 2000 Sex: F Assigned Patient Location: [facility] Current Patient Location: [facility] Accession/Order Number: [id number] Exam Date: 09/16/2024 09:07 Report Date: 09/16/2024 [...] Chika Holden M.D.09/16/2024 9:15 AM Dictation Location: [place] [address] Electronically authenticated by: [id number] Y Date: 09/16/2024 09:15 Dictated By: Chika Holden M.D. Signed By: 09/16/24917 DD/ 4 TD/TT: Arc Trimmer: [facility] Radiology, Radiologist, - 09/16/2024 [place] [address] Ultrasound Report Signed Patient: AMY MARIO MR#: [id number] : 2000 Acct:[id number] Age/Sex: 24 / F ADM Date: 09/16/24 Loc: [facility] 250-[address]: Immanuel Hilton D.O. Ordering Physician: Immanuel Hilton D.O. Date of Service: 09/16/24 Procedure(s): US OB growth Accession Number(s): [id number] cc: Akila Grant M.D.; Immanuel Hilton D.O. The [place] [address] Patient Name: AMY MARIO MRN: [facility]:[id number] date: 2000 Sex: F Assigned Patient Location: [facility] Current Patient Location: [facility] Accession/Order Number: [id number] Exam Date: 09/16/2024 09:07 Report Date: 09/16/2024 [...] Chika Holden M.D.09/16/2024 9:15 AM Dictation Location: [place] [address] Electronically authenticated by: [id number] Y Date: 09/16/2024 09:15 Dictated By: Chika Holden M.D. Signed By: 09/16/24917 DD/ 4 TD/TT: Arc Trimmer: [facility] Radiology Study observation (narrative) [facility] US OB GROWTHOrdered By: Radi ologist Radiology on 09-16-2024 [facility] Work Phone: [facility] TOTAL PROTEIN 24 HOUR UR INEon 09-12-2024 Interpretation and review of laboratory results Abnormal [facility] Protein (U) [Mass/Vol] 29.7 mg/dL High NINF - 11.9 mg/dL [facility] TOTAL PROTEIN 24 HOUR URINE 148.[address] [facility] TOTAL VOLUME 24 HOUR URINE 500 mL/24hr [facility] CLINISY[facility] ALL CBC WITH AUTO DIFFon BASOPHILS ABSOLUTE AUTO 0 [facility] Basophils/100 WBC (Bld) 0.1 % Low 0.2 - 2.0 % [facility] Eosinophils/100 WBC (Bld) 0.7 % Low 0.9 - 7.0 % [facility] Erythrocyte distribution width (RBC) [Ratio] 13.4 % 11.0 - 15.0 % [facility] Hematocrit (Bld) [Volume fraction] 32.2 % Low 36.0 - 48.0 % [facility] Hemoglobin (Bld) [Mass/Vol] 10.6 g/dL Low 12.0 - 16.0 g/dL [facility] IMMATURE GRANULOCYTES ABS AUTO 0.[address] [facility] Immature granulocytes/100 WBC (Bld) 0.9 % High 0.0 - 0.5 % [facility] Interpretation and review of laboratory results Abnormal [facility] LYMPHOCYTES ABSOLUTE AUTO 1.4 [facility] Lymphocytes/100 WBC (Bld) 19.7 % Low 20.5 - 60.0 % [facility] MCH (RBC) [Entitic mass] 28.3 pg 26.7 - 34.[address] [facility] MCHC (RBC) [Mass/Vol] 32.9 g/dL 29.9 - 35.2 g/dL [facility] MCV (RBC) [Entitic vol] 85.9 fL 81.0 - 99.[address] [facility] MONOCYTES ABSOLUTE AUTO 0.5 [facility] Monocytes/100 WBC (Bld) 7.4 % 1.7 - 12.0 % [facility] NEUTROPHILS ABSOLUTE AUTO 4.9 [facility] Neutrophils/100 WBC (Bld) 71.2 % 43.0 - 75.0 % [facility] Platelet mean volume (Bld) [Entitic vol] 10.4 fL 9.5 - 13.[address] [facility] EO # 0.1 [facility] RBC 3.75 Low [facility] WBC 6.9 [facility] Activated partial thrombopla stin time (aPTT) in platelet poor plasma by coagulation aon 09-09-2024 aPTT Coag (PPP) [Time] Activated partial thromboplastin time (aPTT) in platelet poor plasma by coagulation a Low 22.3-36.2 [facility] Basophils Auto (Bld) [#/Vol] on 09-09-2024 Basophils (Bld) [#/Vol] Automated basophil count 0.0-0.1 [facility] Basophils/100 WBC Auto (Bld) on 09-09-2024 Basophils/100 WBC (Bld) Automated basophil % Low 0.2-2.0 [facility] Eosinophils/100 WBC Auto (Bl d)on 09-09-2024 Eosinophils/100 WBC (Bld) Automated eosinophil % Low 0.9-7.0 [facility] Erythrocyte distribution wid th Auto (RBC) [Ratio]on 09-09-2024 Erythrocyte distribution width (RBC) [Ratio] Erythrocyte distribution width [Ratio] by Automated count 11.0-15.0 [facility] Estimated glomerular filtrat ion rate (GFR) non- Americanon 09-09-2024 GFR/1.73 sq M.predicted among non-blacks MDRD (S/P/Bld) [Vol rate/Area] Estimated glomerular filtration rate (GFR) non- >=60 mL/min/1.73m 2 [facility] Hematocrit Auto (Bld) [Volum e fraction]on 09-09-2024 Hematocrit (Bld) [Volume fraction] Hematocrit [Volume Fraction] of Blood by Automated count Low 36.0-48.0 [facility] Hemoglobin [Mass/volume] in Bloodon 09-09-2024 Hemoglobin (Bld) [Mass/Vol] Hemoglobin [Mass/volume] in Blood Low 12.0-16.0 [facility] INR in Platelet poor plasma by Coagulation assayon 09-09-2024 INR Coag (PPP) [Relative time] INR in Platelet poor plasma by Coagulation assay [facility] Comment on above: DESIRED INR:2.0-3.0 CONDITIONS NOT LISTED BELOW2.5-3.5 FOR PROSTHETIC HEART VALVE REPLACEMENT2.5-3.5 RECURRENT THROMBOSIS Laboratory - Chemistry and C hemistry - challengeon 09-09-2024 AST [Catalytic activity/Vol] 14 U/L Low 15-37 [facility] Creatinine [Mass/Vol] 0.56 mg/dL 0.55-1.02 [facility] GFR/1.73 sq M.predicted MDRD (S/P/Bld) [Vol rate/Area] mL/min/{1.73_m2} >=60 mL/min/1.73m 2 [facility] LDH [Catalytic activity/Vol] 296 U/L High 81-234 [facility] Urate [Mass/Vol] 5.4 mg/dL 2.6-6.0 [facility] Urea nitrogen [Mass/Vol] 5.0 mg/dL Low 7.0-18.0 [facility] Laboratory - Hematology and Cell countson 09-09-2024 Immature granulocytes/100 WBC (Bld) 0.9 % High 0.0-0.5 [facility] Leukocytes [#/volume] correc lisha for nucleated erythrocytes in Blood by Automated counon 09-09-2024 WBC corrected for nucl RBC Auto (Bld) [#/Vol] Leukocytes [#/volume] corrected for nucleated erythrocytes in Blood by Automated coun 4.0-11.0 [facility] Lymphocytes Auto (Bld) [#/Vo l]on 09-09-2024 Lymphocytes (Bld) [#/Vol] Lymphocytes [#/volume] in Blood by Automated count 1.2-3.8 [facility] Lymphocytes/100 WBC Auto (Bl d)on 09-09-2024 Lymphocytes/100 WBC (Bld) Lymphocytes/100 leukocytes in Blood by Automated count Low 20.5-60.0 [facility] MCH Auto (RBC) [Entitic mass ]on 09-09-2024 MCH (RBC) [Entitic mass] MCH [Entitic mass] by Automated count 26.7-34.0 [facility] MCHC Auto (RBC) [Mass/Vol]on 09-09-2024 MCHC (RBC) [Mass/Vol] MCHC [Mass/volume] by Automated count 29.9-35.2 [facility] MCV Auto (RBC) [Entitic vol] on 09-09-2024 MCV (RBC) [Entitic vol] MCV [Entitic volume] by Automated count 81.0-99.0 [facility] Monocytes Auto (Bld) [#/Vol] on 09-09-2024 Monocytes (Bld) [#/Vol] Automated blood monocyte count 0.3-0.8 [facility] Monocytes/100 WBC Auto (Bld) on 09-09-2024 Monocytes/100 WBC (Bld) Automated monocyte % 1.7-12.0 [facility] Neutrophils Auto (Bld) [#/Vo l]on 09-09-2024 Neutrophils (Bld) [#/Vol] Neutrophils [#/volume] in Blood by Automated count 1.4-6.5 [facility] Neutrophils/100 WBC Auto (Bl d)on 09-09-2024 Neutrophils/100 WBC (Bld) Automated neutrophil % 43.0-75.0 [facility] No Panel Informationon 09-09 Eosinophils # (Auto) 0.1 10 3/uL 0.0-0.7 [facility] Immature Granulocyte # (Auto) 0.06 10 3/uL High 0.00-0.03 [facility] Platelet mean volume Auto (B ld) [Entitic vol]on 09-09-2024 Platelet mean volume (Bld) [Entitic vol] Platelet mean volume [Entitic volume] in Blood by Automated count 9.5-13.5 [facility] Platelets Auto (Bld) [#/Vol] on 09-09-2024 Platelets (Bld) [#/Vol] Platelets [#/volume] in Blood by Automated count 150-450 [facility] Prothrombin time (PT)on 08-29 PT Coag (PPP) [Time] Prothrombin time (PT) 9.0-11.6 [facility] RBC Auto (Bld) [#/Vol]on RBC (Bld) [#/Vol] Erythrocytes [#/volume] in Blood by Automated count Low 4.20-5.40 [facility] US OB BPP W NON-STRESS on 09-09-2024 [place] [address] Ultrasound Report Signed Patient: AMY MARIO MR#: [id number] : 2000 Acct:[id number] Age/Sex: 24 / F ADM Date: 09/09/24 Loc: US Attending Dr: Immanuel Hilton D.O. Ordering Physician: Immanuel Hilton D.O. Date of Service: 09/09/24 Procedure(s): US OB BPP w non-stress Accession Number(s): [id number] cc: Akila Grant M.D.; Immanuel Hilton D.O. [place] [address] Patient Name: AMY MARIO MRN: [facility]:[id number] date: 2000 Sex: F Assigned Patient Location: [facility] Current Patient Location: ED.MAIN Accession/Order Number: [id number] Exam Date: 09/09/2024 07:58 Report Date: 09/09/2024 [...] Signed By: 09/09/24 1132 DD/ 1130 TD/TT: Arc Trimmer: [facility] Radiology, Radiologist, - 09/09/2024 [place] [address] Ultrasound Report Signed Patient: AMY MARIO MR#: [id number] : 2000 Acct:[id number] Age/Sex: 24 / F ADM Date: 09/09/24 Loc: US Attending Dr: Immanuel Hilton D.O. Ordering Physician: Immanuel Hilton D.O. Date of Service: 09/09/24 Procedure(s): US OB BPP w non-stress Accession Number(s): [id number] cc: Akila Grant M.D.; Immanuel Hilton D.O. The [address] [address] Patient Name: AMY MARIO MRN: [facility]:[id number] date: 2000 Sex: F Assigned Patient Location: [facility] Current Patient Location: ED.MAIN Accession/Order Number: [id number] Exam Date: 09/09/2024 07:58 Report Date: 09/09/2024 [...] Signed By: 09/09/24 1132 DD/ 1130 TD/TT: Arc Trimmer: [facility] Radiology Study observation (narrative) [facility] US OB BPP W NON-STRESS Ordered By: Radiologist Radiology on 09-09-2024 [facility] Work Phone: Urinalysis macro (dipstick) panel (U)on 09-08-2024 Bilirubin, UA Trace Negative - 4(70) +++ mg/dL [facility] Blood, UA Positive Negative - 50 Jimy/mcL [facility] Clarity, UA Clear [facility] Color, UA Yellow [facility] Glucose, UA Negative Negative - 2000(110) ++++ mg/dL [facility] Interpretation and review of laboratory results Abnormal [facility] Ketones, UA Negative Negative - 160(16) ++++ mg/dL [facility] Leukocytes, UA Positive Negative - 500+++ Mychal/mcL [facility] Nitrite, UA Negative Negative - Positive [facility] pH, UA 6 5 - 9 [facility] Protein, UA Positive Negative - 2000(20) ++++ mg/dL [facility] Spec Grav, UA 1.025 1 - 1.03 [facility] Urobilinogen, UA 0.2 0.2 - 12 mg/dL [facility] US OB BPP W NON-STRESS on 09-02-[address] [address] Ultrasound Report Signed Patient: AMY MARIO MR#: [id number] : 2000 Acct:[id number] Age/Sex: 24 / F ADM Date: 09/02/24 Loc: US Attending Dr: Immanuel Hilton D.O. Ordering Physician: Immanuel Hilton D.O. Date of Service: 09/02/24 Procedure(s): US OB BPP w non-stress Accession Number(s): [id number] cc: Akila Grant M.D.; Immanuel Hilton D.O. [address] [place] [address] Patient Name: AMY MARIO MRN: [facility]:[id number] date: 2000 Sex: F Assigned Patient Location: [facility] Current Patient Location: Accession/Order Number: [id number] Exam Date: 09/02/2024 08:03 Report Date: 09/02/2024 [...] M.D. Signed By: 09/02/24924 DD/ 1 TD/TT: Arc Trimmer: [facility] Radiology, Radiologist, MD - 09/02/2024 [place] [address] Ultrasound Report Signed Patient: AMY MARIO MR#: [id number] : 2000 Acct:[id number] Age/Sex: 24 / F ADM Date: 09/02/24 Loc: US Attending Dr: Immanuel Hilton D.O. Ordering Physician: Immanuel Hilton D.O. Date of Service: 09/02/24 Procedure(s): US OB BPP w non-stress Accession Number(s): [id number] cc: Akila Grant M.D.; Immanuel Hilton D.O. The [place] [id number] Patient Name: AMY MARIO MRN: [facility]:[id number] date: 2000 Sex: F Assigned Patient Location: [facility] Current Patient Location: Accession/Order Number: [id number] Exam Date: 09/02/2024 08:03 Report Date: 09/02/2024 [...] M.D. Signed By: 09/02/24924 DD/ 1 TD/TT: Arc Trimmer: [facility] Radiology Study observation (narrative) [facility] US OB BPP W NON-STRESS Ordered By: Radiologist Radiology on 09-02-2024 [facility] Work Phone: US OB FOLLOW UP TRANSABDOMIN [...] 2164 gm / 4 lbs, 12 oz (9270-5875 gm) [place] Normal: 1953 gm (5478-4401 mg) [place] 80% for 32.0 wks ([place] [...] report is generated using voice recognition reporting ([employer]). On occasion [employer] erroneously drops words from the report or [...] UA Positive Negative - 4(70) +++ mg/dL [facility] Comment on above: small Blood, UA Negative Negative - 50 Jimy/mcL [facility] Clarity, UA Clear [facility] Color, UA Yellow [facility] Glucose, UA Positive Negative - 2000(110) ++++ mg/dL [facility] Comment on above: 100 Interpretation and review of laboratory results Abnormal [facility] Ketones, UA Positive Negative - 160(16) ++++ mg/dL [facility] Comment on above: trace Leukocytes, UA Positive Negative - 500+++ Mychal/mcL [facility] Comment on above: large Nitrite, UA Negative Negative - Positive [facility] pH, UA 6.5 5 - 9 [facility] Protein, UA Positive Negative - 2000(20) ++++ mg/dL [facility] Comment on above: 30 Spec Grav, UA 1.03 1 - 1.03 [facility] Urobilinogen, UA 0.2 0.2 - 12 mg/dL [facility] US OB BPP W NON-STRESS on 08-26-[address] [address] Ultrasound Report Signed Patient: AMY MARIO MR#: [id number] : 2000 Acct:[id number] Age/Sex: 24 / F ADM Date: 08/26/24 Loc: [facility] 251-[address]: Immanuel Hilton D.O. Ordering Physician: Immanuel Hilton D.O. Date of Service: 08/26/24 Procedure(s): US OB BPP w non-stress Accession Number(s): [id number] cc: Akila Grant M.D.; Immanuel Hilton D.O. The [place] [address] Patient Name: AMY MARIO MRN: [facility]:[id number] date: 2000 Sex: F Assigned Patient Location: [facility] Current Patient Location: [facility] Accession/Order Number: [id number] Exam Date: 08/26/2024 08:00 Report Date: 08/26/2024 [...] M.D. Signed By: 08/26/24 0858 DD/ TD/TT: Arc Trimmer: [facility] Radiology, Radiologist, MD - 08/26/2024 [place] [address] Ultrasound Report Signed Patient: AMY MARIO MR#: [id number] : 2000 Acct:[id number] Age/Sex: 24 / F ADM Date: 08/26/24 Loc: [facility] 251-[address]: Immanuel Hilton D.O. Ordering Physician: Immanuel Hilton D.O. Date of Service: 08/26/24 Procedure(s): US OB BPP w non-stress Accession Number(s): [id number] cc: Akila Grant M.D.; Immanuel Hilton D.O. [place] [id number] Patient Name: AMY MARIO MRN: [facility]:[id number] date: 2000 Sex: F Assigned Patient Location: [facility] Current Patient Location: [facility] Accession/Order Number: [id number] Exam Date: 08/26/2024 08:00 Report Date: 08/26/2024 [...] M.D. Signed By: 08/26/24 0858 DD/ TD/TT: Arc Trimmer: [facility] Radiology Study observation (narrative) [facility] US OB BPP W NON-STRESS Ordered By: Radiologist Radiology on 08-26-2024 [facility] Work Phone: Urinalysis macro (dipstick) panel (U)on 08-12-2024 Bilirubin, UA Negative Negative - 4(70) +++ mg/dL [facility] Blood, UA Negative Negative - 50 Jimy/mcL [facility] Clarity, UA Clear [facility] Color, UA Yellow [facility] Glucose, UA Negative Negative - 1999(110) ++++ mg/dL [facility] Interpretation and review of laboratory results Abnormal [facility] Ketones, UA Positive Negative - 160(16) ++++ mg/dL [facility] Comment on above: trace Leukocytes, UA Positive Negative - 500+++ Mychal/mcL [facility] Comment on above: large Nitrite, UA Negative Negative - Positive [facility] pH, UA 5.5 5 - 9 [facility] Protein, UA Trace Negative - 1999(20) ++++ mg/dL [facility] Spec Grav, UA 1.03 1 - 1.03 [facility] Urobilinogen, UA 0.2 0.2 - 12 mg/dL [facility] ALL CBC WITH AUTO DIFFon BASOPHILS ABSOLUTE AUTO 0 [facility] Basophils/100 WBC (Bld) 0.3 % 0.2 - 2.0 % [facility] Eosinophils/100 WBC (Bld) 1 % 0.9 - 7.0 % [facility] Erythrocyte distribution width (RBC) [Ratio] 13.2 % 11.0 - 15.0 % [facility] Hematocrit (Bld) [Volume fraction] 32.6 % Low 36.0 - 48.0 % [facility] Hemoglobin (Bld) [Mass/Vol] 11.3 g/dL Low 12.0 - 16.0 g/dL [facility] IMMATURE GRANULOCYTES ABS AUTO 0.[address] [facility] Immature granulocytes/100 WBC (Bld) 0.9 % High 0.0 - 0.5 % [facility] Interpretation and review of laboratory results Abnormal [facility] LYMPHOCYTES ABSOLUTE AUTO 1.6 [facility] Lymphocytes/100 WBC (Bld) 19.6 % Low 20.5 - 60.0 % [facility] MCH (RBC) [Entitic mass] 30.4 pg 26.7 - 34.[address] [facility] MCHC (RBC) [Mass/Vol] 34.7 g/dL 29.9 - 35.2 g/dL [facility] MCV (RBC) [Entitic vol] 87.6 fL 81.0 - 99.[address] [facility] MONOCYTES ABSOLUTE AUTO 0.6 [facility] Monocytes/100 WBC (Bld) 8 % 1.7 - 12.0 % [facility] NEUTROPHILS ABSOLUTE AUTO 5.6 [facility] Neutrophils/100 WBC (Bld) 70.2 % 43.0 - 75.0 % [facility] Platelet mean volume (Bld) [Entitic vol] 9.7 fL 9.5 - 13.[address] [facility] TBH EO # 0.1 [facility] PLT 400 [facility] RBC 3.72 Low [facility] WBC 8 [facility] Basophils Auto (Bld) [#/Vol] on 08-05-2024 Basophils (Bld) [#/Vol] Automated basophil count 0.0-0.1 [facility] Basophils/100 WBC Auto (Bld) on 08-05-2024 Basophils/100 WBC (Bld) Automated basophil % 0.2-2.0 [facility] Eosinophils/100 WBC Auto (Bl d)on 08-05-2024 Eosinophils/100 WBC (Bld) Automated eosinophil % 0.9-7.0 [facility] Erythrocyte distribution wid th Auto (RBC) [Ratio]on 08-05-2024 Erythrocyte distribution width (RBC) [Ratio] Erythrocyte distribution width [Ratio] by Automated count 11.0-15.0 [facility] Hematocrit Auto (Bld) [Volum e fraction]on 08-05-2024 Hematocrit (Bld) [Volume fraction] Hematocrit [Volume Fraction] of Blood by Automated count Low 36.0-48.0 [facility] Hemoglobin [Mass/volume] in Bloodon 08-05-2024 Hemoglobin (Bld) [Mass/Vol] Hemoglobin [Mass/volume] in Blood Low 12.0-16.0 [facility] Laboratory - Hematology and Cell countson 08-05-2024 Immature granulocytes/100 WBC (Bld) 0.9 % High 0.0-0.5 [facility] Leukocytes [#/volume] correc lisha for nucleated erythrocytes in Blood by Automated counon 08-05-2024 WBC corrected for nucl RBC Auto (Bld) [#/Vol] Leukocytes [#/volume] corrected for nucleated erythrocytes in Blood by Automated coun 4.0-11.0 [facility] Lymphocytes Auto (Bld) [#/Vo l]on 08-05-2024 Lymphocytes (Bld) [#/Vol] Lymphocytes [#/volume] in Blood by Automated count 1.2-3.8 [facility] Lymphocytes/100 WBC Auto (Bl d)on 08-05-2024 Lymphocytes/100 WBC (Bld) Lymphocytes/100 leukocytes in Blood by Automated count Low 20.5-60.0 [facility] MCH Auto (RBC) [Entitic mass ]on 08-05-2024 MCH (RBC) [Entitic mass] MCH [Entitic mass] by Automated count 26.7-34.0 [facility] MCHC Auto (RBC) [Mass/Vol]on 08-05-2024 MCHC (RBC) [Mass/Vol] MCHC [Mass/volume] by Automated count 29.9-35.2 [facility] MCV Auto (RBC) [Entitic vol] on 08-05-2024 MCV (RBC) [Entitic vol] MCV [Entitic volume] by Automated count 81.0-99.0 [facility] Monocytes Auto (Bld) [#/Vol] on 08-05-2024 Monocytes (Bld) [#/Vol] Automated blood monocyte count 0.3-0.8 [facility] Monocytes/100 WBC Auto (Bld) on 08-05-2024 Monocytes/100 WBC (Bld) Automated monocyte % 1.7-12.0 [facility] Neutrophils Auto (Bld) [#/Vo l]on 08-05-2024 Neutrophils (Bld) [#/Vol] Neutrophils [#/volume] in Blood by Automated count 1.4-6.5 [facility] Neutrophils/100 WBC Auto (Bl d)on 08-05-2024 Neutrophils/100 WBC (Bld) Automated neutrophil % 43.0-75.0 [facility] No Panel Informationon 08-05 Eosinophils # (Auto) 0.1 10 3/uL 0.0-0.7 [facility] Immature Granulocyte # (Auto) 0.07 10 3/uL High 0.00-0.03 [facility] Platelet mean volume Auto (B ld) [Entitic vol]on 08-05-2024 Platelet mean volume (Bld) [Entitic vol] Platelet mean volume [Entitic volume] in Blood by Automated count 9.5-13.5 [facility] Platelets Auto (Bld) [#/Vol] on 08-05-2024 Platelets (Bld) [#/Vol] Platelets [#/volume] in Blood by Automated count 150-450 [facility] RBC Auto (Bld) [#/Vol]on RBC (Bld) [#/Vol] Erythrocytes [#/volume] in Blood by Automated count Low 4.20-5.40 [facility] Urinalysis macro (dipstick) panel (U)on 06-22-2024 Bilirubin, UA Negative Negative - 4(70) +++ mg/dL [facility] Blood, UA Negative Negative - 50 Jimy/mcL [facility] Clarity, UA Clear [facility] Color, UA Yellow [facility] Glucose, UA Negative Negative - 2000(110) ++++ mg/dL [facility] Interpretation and review of laboratory results Abnormal [facility] Ketones, UA Positive Negative - 160(16) ++++ mg/dL [facility] Comment on above: 15 Leukocytes, UA Positive Negative - 500+++ Mychal/mcL [facility] Comment on above: small Nitrite, UA Negative Negative - Positive [facility] pH, UA 5.5 5 - 9 [facility] Protein, UA Trace Negative - 2000(20) ++++ mg/dL [facility] Spec Grav, UA 1.03 1 - 1.03 [facility] Urobilinogen, UA 0.2 0.2 - 12 mg/dL [facility] IGP,APTIMA HPV,AGE GDLNon AGE GDLN ACOG TESTING Note . [facility] Comment on above: TESTS RESULT FLAG UN ITS REF RANGE LAB Clinician Provided Cytology Information Source.............Cervix Other.............. No. of containers..01 ThinPrep Vial Age Algo ACOG Michelle... FLAG LEGEND: L-Low Normal,H-High Normal,LL-Alert Low,HH-Alert High <-Panic Low,>-Panic High,A-Abnormal,AA-Critical Abnormal Performed at: 01 [facility] [address] [place] [address] Mar Rivera MD, IGP, RFX APTIMA HPV ASCU Note . [facility] Comment on above: TESTS RESULT FLAG UN ITS REF RANGE LAB DIAGNOSIS: 02 NEGATIVE FOR INTRAEPITHELIAL LESION OR MALIGNANCY. FUNGAL ORGANISMS MORPHOLOGICALLY CONSISTENT WITH CARLOS SPECIES ARE PRESENT. Specimen adequacy: 02 Satisfactory for evaluation. No endocervical component is identified. An endocervical component is not commonly seen in the patient. Performed by: Judy Vera, Engineering Inspector ([facility]) . 02 Note: Note 02 [...] <-Panic Low,>-Panic High,A-Abnormal,AA-Critical Abnormal Performed at: [address] [address] Mar Rivera MD, Performed at: =[address] [id number] Email Marketing Executive: Mar Rivera MD, Phone: [phone] Performed at: [address] [id number] Email Marketing Executive: Mar Rivera MD, Phone: [phone] [facility] AFP, SERUM, OPEN SPINA BIFID Aon 05-30-2024 AFP MOM [address] [facility] AFP VALUE 55.4 ng/mL . [facility] COMMENT: Comment . [facility] Comment on above: Ivet Mobley , Ph.D., [facility] Director References: Available Upon Request. Multiples Of Median Cutoffs For AFP Elevations [place] 2.5 Black 2.8 IDD 2.0 Twins 4.5 Abbreviation Definitions IDD - Insulin Dep Diabetes OSBR - Open Spina Bifida Risk For further inquiries contact [facility] at [phone]. This test was developed and its performance characteristics determined by [employer] [employer] [facility]. It has not been cleared or approved by the Food and Drug Administration. Performed at: [facility] [address] [place], [place] [id number] Email Marketing Executive: Kristina Carter [facility], Phone: [phone] GEST. AGE ON COLLECTION DATE 17.[address] [facility] GESTAT. AGE BASED ON LMP . [facility] Comment on above: Recalculations are n ot recommended when gestational dating by LMP and ultrasound are within 10 days. INSULIN DEP DIABETES No . [facility] INTERPRETATION Comment . [facility] Comment on above: Interpretation: Scre [...] Customer Services to discuss available options. The [employer] recommends amniocentesis be offered to women age 35 and older. MATERNAL A[age] AT SARA 24.[address] [facility] MULTIPLE GESTATION No . [facility] OSBR RISK [address] . [facility] RACE . [facility] RESULTS Report . [facility] TEST RESULTS: Negative . [facility] WEIGHT [address] [facility] N N LMP [id number] 4 18 N 1 Y 185 N N N N N White/ [facility] Urinalysis macro (dipstick) panel (U)on 04-27-2024 Bilirubin, UA Positive Negative - 4(70) +++ mg/dL [facility] Comment on above: small Blood, UA Negative Negative - 50 Jimy/mcL [facility] Clarity, UA Clear [facility] Color, UA Yellow [facility] Glucose, UA Negative Negative - 1999(110) ++++ mg/dL [facility] Interpretation and review of laboratory results Abnormal [facility] Ketones, UA Positive Negative - 160(16) ++++ mg/dL [facility] Comment on above: trace Leukocytes, UA Positive Negative - 500+++ Mychal/mcL [facility] Comment on above: small Nitrite, UA Negative Negative - Positive [facility] pH, UA 6.0 5 - 9 [facility] Protein, UA Negative Negative - 1999(20) ++++ mg/dL [facility] Spec Grav, UA 1.030 1 - 1.03 [facility] Urobilinogen, UA 0.2 0.2 - 12 mg/dL [facility] ALL CBC WITH AUTO DIFFon BASOPHILS ABSOLUTE AUTO 0.0 [facility] Basophils/100 WBC (Bld) 0.1 % Low 0.2 - 2.0 % [facility] Eosinophils/100 WBC (Bld) 0.9 % 0.9 - 7.0 % [facility] Erythrocyte distribution width (RBC) [Ratio] 13.0 % 11.0 - 15.0 % [facility] IMMATURE GRANULOCYTES ABS AUTO 0.03 [facility] Immature granulocytes/100 WBC (Bld) 0.3 % 0.0 - 0.5 % [facility] Interpretation and review of laboratory results Abnormal [facility] LYMPHOCYTES ABSOLUTE AUTO 2.3 [facility] Lymphocytes/100 WBC (Bld) 26.6 % 20.5 - 60.0 % [facility] MCH (RBC) [Entitic mass] 30.1 pg 26.7 - 34.[address] [facility] MCHC (RBC) [Mass/Vol] 34.6 g/dL 29.9 - 35.2 g/dL [facility] MCV (RBC) [Entitic vol] 87.0 fL 81.0 - 99.[address] [facility] MONOCYTES ABSOLUTE AUTO 0.4 [facility] Monocytes/100 WBC (Bld) 4.1 % 1.7 - 12.0 % [facility] NEUTROPHILS ABSOLUTE AUTO 5.9 [facility] Neutrophils/100 WBC (Bld) 68.0 % 43.0 - 75.0 % [facility] Platelet mean volume (Bld) [Entitic vol] 9.6 fL 9.5 - 13.[address] [facility] TB EO # 0.1 [facility] PLT 400 [facility] RBC 4.55 [facility] WBC [address].7 [facility] CBC without diffon Rbc Mcv (Fl) By Automated Count 87 [facility] Laboratory - Hematology and Cell countson 04-08-2024 Hematocrit (Bld) [Volume fraction] 39.6 % [facility] Hemoglobin (Bld) [Mass/Vol] 13.7 g/dL [facility] No Panel Informationon 04-08 [facility] Rubella IGG immune statuson 04-08-2024 Rubella immune IgG 2.32 [facility] Syphilis Total(Unknown Syphi lis Status)on 04-08-2024 Syphilis Non-Reactive [facility] Type and screenon 04-08-2024 Abo/Rh(D) Positive [facility] HCG ( test) Ql (U)o n 03-27-2024 Interpretation and review of laboratory results Abnormal [facility] Preg Test, Ur Positive [facility] Urinalysis macro (dipstick) panel (U)on 03-27-2024 Bilirubin, UA Negative Negative - 4(70) +++ mg/dL [facility] Blood, UA Negative Negative - 50 Jimy/mcL [facility] Clarity, UA Clear [facility] Color, UA Yellow [facility] Glucose, UA Negative Negative - 1999(110) ++++ mg/dL [facility] Interpretation and review of laboratory results Normal [facility] Ketones, UA Negative Negative - 160(16) ++++ mg/dL [facility] Leukocytes, UA Negative Negative - 500+++ Mychal/mcL [facility] Nitrite, UA Negative Negative - Positive [facility] pH, UA 5.5 5 - 9 [facility] Protein, UA Negative Negative - 1999(20) ++++ mg/dL [facility] Spec Grav, UA 1.025 1 - 1.03 [facility] Urobilinogen, UA 0.2 0.2 - 12 mg/dL [facility] PROGESTERONEon 07-27-2022 Progesterone 26.9 ng/mL Normal [facility] Comment on above: Result Comment: Foll icular phase 0.1 - 0.9 Luteal phase 1.8 - 23.9 Ovulation phase 0.1 - 12.0 First trimester 11.0 - 44.3 Second trimester 25.4 - 83.3 Third trimester 58.7 - 214.0 Postmenopausal 0.0 - 0.1 Performed By: #### P BRETT #### [facility] [address] [place] [address] Dr. Ryan Francisco PREG QUANT HCGon 07-12-2022 HCG QUANT <1 Normal [facility] Comment on above: Performed By: #### P REGQNT #### [facility] [address] [address] [address] Ryan Francisco HCG RANGE SEE BELOW Normal [facility] Comment on above: Result Comment: 5-50 0.2-1 WEEK 50-500 1-2 WEEKS 100-5,000 2-3 WEEKS 500-10,000 3-4 WEEKS 1,000-50,000 4-5 WEEKS 10,000-100,000 5-6 WEEKS 15,000-200,000 6-8 WEEKS 10,000-100,000 2-3 MONTHS Performed By: #### P REGQNT #### [facility] [address] [place] [address] Dr. Ryan Francisco XR HYSTEROSALPINGO EXPon XR [...] by: CLEMENTINE DEWEY Date: 2022-07-12 12:34 Normal [facility] PROGESTERONEon 06-29-2022 Progesterone 4.6 ng/mL Normal [facility] Comment on above: Result Comment: Foll icular phase 0.1 - 0.9 Luteal phase 1.8 - 23.9 Ovulation phase 0.1 - 12.0 First trimester 11.0 - 44.3 Second trimester 25.4 - 83.3 Third trimester 58.7 - 214.0 Postmenopausal 0.0 - 0.1 Performed By: #### P BRETT #### [facility] [address] [place] [address] Dr. Ryan Francisco PROGESTERONEon 06-01-2022 Progesterone 18.9 ng/mL Normal [facility] Comment on above: Result Comment: Foll icular phase 0.1 - 0.9 Luteal phase 1.8 - 23.9 Ovulation phase 0.1 - 12.0 First trimester 11.0 - 44.3 Second trimester 25.4 - 83.3 Third trimester 58.7 - 214.0 Postmenopausal 0.0 - 0.1 Performed By: #### P BRETT #### [facility] [address] [place] [address] Dr. Ryan Francisco US PELVIS AND TRANSVAGon [...] by: CLEMENTINE DEWEY Date: 2022-05-17 17:25 Normal [facility] PROGESTERONEon 04-29-2022 Progesterone 5.1 ng/mL Normal [facility] Comment on above: Result Comment: Foll icular phase 0.1 - 0.9 Luteal phase 1.8 - 23.9 Ovulation phase 0.1 - 12.0 First trimester 11.0 - 44.3 Second trimester 25.4 - 83.3 Third trimester 58.7 - 214.0 Postmenopausal 0.0 - 0.1 Performed By: #### P BRETT ####[facility] [address] [id number] Ryan Francisco ANTI-MULLERIAN HORMONEon Anti-Mullerian Hormone (AMH) 6.09 ng/mL Normal [facility] Comment on above: Result Comment: For assays employing antibodies, the possibility exists for interference by heterophile antibodies in the samples.1 1.Steffen Peguero. Interferences in Immunoassays - still a threat. Clin. Chem. 2000; 46: 7598-3053. This test was developed and its performance characteristics determined by [facility]. It has not been cleared or approved by the Food and Drug Administration. Reference Range: Females 20 - 25y: 1.23 - 11.51 Median 4.70 AMH concentrations of >= 1.06 ng/mL is correlated with a better response to ovarian stimulation, produced more retrievable oocytes and higher odds of live according to Herber et al. Fertility and Sterility. 2010: 94:2728-9800. The current AMH test method correlates with [...] tumor. Performed By: #### A WEI #### [facility] [address] [place] [address] Dr. Ryan Francisco FSHon 04-05-2022 FSH 3.6 mIU/mL Normal [facility] Comment on above: Result Comment: Adul t Female: Follicular phase 3.5 - 12.5 Ovulation phase 4.7 - 21.5 Luteal phase 1.7 - 7.7 Postmenopausal 25.8 - 134.8 Performed By: #### L [facility] #### [facility] [address] [place] [address] Dr. Ryan Francisco LUTEINIZING HORMONE (LH)on 0 04-05-2022 LH 6.8 mIU/mL Normal [facility] Comment on above: Result Comment: Adul t Female: Follicular phase 2.4 - 12.6 Ovulation phase 14.0 - 95.6 Luteal phase 1.0 - 11.4 Postmenopausal 7.7 - 58.5 Performed By: #### L [facility] ####[facility] [address] [address]Dr. Ryan Francisco CBC AUTO DIFFon 04-04-2022 BASO # 0.0 103/ul Normal 0.0-0.1 [facility] Comment on above: Performed By: #### C BC #### [facility] [address] [place] [address] Dr. Ryan Francisco Basophils/100 WBC (Bld) 0.3 % Normal 0.2-2.0 [facility] Comment on above: Performed By: #### C BC #### [facility] [address] [place] [address] Dr. Ryan Francisco EO # 0.1 103/ul Normal 0.0-0.7 [facility] Comment on above: Performed By: #### C BC #### [facility] [address] [place] [address] Dr. Ryan Francisco Eosinophils/100 WBC (Bld) 1.7 % Normal 0.9-7.0 [facility] Comment on above: Performed By: #### C BC #### [facility] [address] [place] [address] Dr. Ryan Francisco Erythrocyte distribution width (RBC) [Ratio] 12.7 % Normal 11.0-15.0 [facility] Comment on above: Performed By: #### C BC #### [facility] [address] [place] [address] Dr. Ryan Francisco Hematocrit (Bld) [Volume fraction] 39.7 % Normal 36.0-48.0 [facility] Comment on above: Performed By: #### C BC #### [facility] [address] [place] [address] Dr. Ryan Francisco Hemoglobin (Bld) [Mass/Vol] 13.4 g/dL Normal 12.0-16.0 [facility] Comment on above: Performed By: #### C BC #### [facility] [address] [place] [address] Dr. Ryan Francisco IG # 0.03 10e3/ul Normal 0.00-0.03 [facility] Comment on above: Performed By: #### C BC #### [facility] [address] [place] [address] Dr. Ryan Francisco IG % 0.5 % Normal 0.0-0.5 [facility] Comment on above: Performed By: #### C BC #### [facility] [address] [place] [address] Dr. Ryan Francisco LYMPH # 1.6 103/ul Normal 1.2-3.8 [facility] Comment on above: Performed By: #### C BC #### [facility] [address] [place] [address] Dr. Ryan Francisco Lymphocytes/100 WBC (Bld) 27.1 % Normal 20.5-60.0 [facility] Comment on above: Performed By: #### C BC #### [facility] [address] [place] [address] Dr. Ryan Francisco MANUAL DIFF REQ NO Normal [facility] Comment on above: Performed By: #### C BC #### [facility] [address] [place] [address] Dr. Ryan Francisco MCH (RBC) [Entitic mass] 29.6 pg Normal 26.7-34.0 [facility] Comment on above: Performed By: #### C BC #### [facility] [address] [place] [address] Dr. Ryan Francisco MCHC (RBC) [Mass/Vol] 33.8 g/dL Normal 29.9-35.2 [facility] Comment on above: Performed By: #### C BC #### [facility] [address] [place] [address] Dr. Ryan Francisco MCV (RBC) [Entitic vol] 87.6 fL Normal 81.0-99.0 [facility] Comment on above: Performed By: #### C BC #### [facility] [address] [place] [address] Dr. Ryan Francisco MONO # 0.4 103/ul Normal 0.3-0.8 [facility] Comment on above: Performed By: #### C BC #### [facility] [address] [place] [address] Dr. Ryan Francisco Monocytes/100 WBC (Bld) 6.7 % Normal 1.7-12.0 [facility] Comment on above: Performed By: #### C BC #### [facility] [address] [place] [address] Dr. Ryan Francisco NEUT # 3.7 103/ul Normal 1.4-6.5 [facility] Comment on above: Performed By: #### C BC #### [facility] [address] [place] [address] Dr. Ryan Francisco Neutrophils/100 WBC (Bld) 63.7 % Normal 43.0-75.0 [facility] Comment on above: Performed By: #### C BC #### [facility] [address] [place] [address] Dr. Ryan Francisco Platelet mean volume (Bld) [Entitic vol] 9.9 fL Normal 9.5-13.5 [facility] Comment on above: Performed By: #### C BC #### [facility] [address] [address] [address] Ryan Francisco PLT 421 103/ul Normal 150-450 [facility] Comment on above: Performed By: #### C BC #### [facility] [address] [address] [address] Ryan Francisco RBC 4.53 106/ul Normal 4.20-5.40 [facility] Comment on above: Performed By: #### C BC #### [facility] [address] [address] [address] Ryan Francicso WBC 5.8 103/ul Normal 4.0-11.0 [facility] Comment on above: Performed By: #### C BC #### [facility] [address] [address] [address] Ryan Francisco FREE T4on 04-04-2022 Free T4 [Mass/Vol] 0.99 ng/dL Normal 0.76-1.46 [facility] Comment on above: Performed By: #### F T4 #### [facility] [address] [address] [address] Ryan Francisco TSHon 04-04-2022 TSH 3.086 uIU/mL Normal 0.358-3.740 [facility] Comment on above: Performed By: #### T SH ####[facility] [address] [address]Dr. Ryan Francisco US PELVIS AND TRANSVAGon US [...] by: LUCHO MIXON Date: 2022-04-04 16:38 Normal [facility] Auth for Release of Medical Recordson 12-20-2021 Auth for Release of Medical Records [id number]# 1.00CD:127 Normal [facility] Coding Summary.on 08-22-2021 Coding Summary. CD:[id number] Gh0bWw+PGhlYWQ+PE1FV OKsY07wrBCzdT2TA7aAR O8JXHPTQZYAAS0NBF5yg CD3KHdlY7LdowRs QuhutJQhOB58RNl2SIR3 pRmsNRvvcI9zpSTrE8u1 ZzOaXM05cH53TCrsVFUa QnS3SpLwhwjdmDZt Y8lqQxKlnXIaKyt+PHRh YmxlIHdpZHRoPScxMDAl VkZxvJfqOR5uFo2sXPUe LWNvbGxhcHNlOiBj b8sqGTBnURzyPZ9zvEeb G8CglQK8RUAnh7w4Bx71 dHI+XWBlIDM8dVxjMTfs i214ElFgi6agUAP5 cBZqCVmbFRS7S24wb5J6 ULSdARXdYGS2cBP2pN0a eFlcfarzJ0LfhCQcRpV6 YHI3rRPvsZ9taPiy kqjctM5nXen+Y09YJY4W GGAFXA0BGii0T8QoGxzo dHI+BH55SFDmBF45tMXq bDDdy7xgnPq4IxXa PGWfKJC9bOovSUcss7Pf MQBaJ00faLTha2V9FKDr yTjmjABrElZylKZ9rL5f MTtzacvag7nsfves Uuzlx5vvma50rS01L71w OHwtUZXhZNY6AVNoAWTx dZducn3zwP6gMx9+IDxj d7dgu6vvaVu9CiXh EXRllnDbbDyvZDG5b1Dq Mn52C3LfcUxuy8ArTpn7 el83qITxv9N1bLM1BMhj IFRqtO3xZNeoSbD2 YBRwJfPsoE83pZHdDHvt Lu0pwWgzjNrvQE3jLGOl xgheAAUkfI1qWHJnvEDu lBctRS3eAUVxlskd c316GnVwTSG0EMVcaNPn R2DdiC6dMjXfCBPqGKLs Y2XqsMHsYRlzK837RQhm RfB3XTJvbzHwU9Pb FRWqcBblEbA7u0C3Ef7H t4IdsttfUPO7XIsgFTLx KdY0NgLoIgF0G0DiPpz1 LEMksEyjRE6hT1Dg RXGvvumtajkonNL1ZDKo EXBxkR45oKZsZBlmOg9n a8L7x929XBNeENWhfJ37 Py9bcJikWXJkjRYD vY0ictxvc3szszpvClOb DFWdDId6TUx5XUQxiJmz KnDsMFS7QoN3RQD6fKIa xU8rkGhlysffsY7a Oyc+B33xgU6wGLD9TMG3 luqmWBUrpoEcHC62QU39 S7HqPqxqgHAocQK+PGRp xuZvtCgeHE5nKbIf d6pnx8SuLCqoN0QlAUUn TDnkJdx9EOOcZOE5fBD7 zK2pFWEpPSbjj5F0vWU6 S2XlnnQodq5rv9bv WKYxOFqqJ24enREez5K1 XCHekWT7IZNjlVgrSkHj fX32Rcc+HZOnoQvgt7Zn Aflcb6cgz4tvuFy4 IjMwJSIgdmFsaWduPSJ0 b3JdKq67N65qTRpfMKLg SGJtLJWxLHCdbWiuev1w gN1gYw6+PGNvbCB3 sVE8qC7rIDTbViC7MZnb N693YhQnmHAbIcolt2rq m5fbcMs3DkTtZJXwelHz xPzoLEM2f6HtSg58 Q81aRZcmDOLnSNCdTZKm EDZzmYqmft4svN0mYu7+ CE4ls5njwe01iU33iEG+ MBMiHQI5vMaoUNyn FTEwiW7rEIfdChA0RUWk DbPjlS94yBKbKAgmDu8i rJjpeYulTS2ySVYqjuvn g261IdTmh0xzSVXs yQHoMQbcDKY8R73qe2E1 RSAbCUYtOHH7yDY4qP7b bGlnbjogbGVmdDsgdmVy kYpiBCpuTVnfD380 IHRvcDsnPlBhdGllbnQg IrPbFZm4B1KuTrl5JJQo jToeWD7pzGNsRJjeQq4e cMemuLpmHT1wURHi hjkig363PfTsr1afYIUi qGHaGWimNGN1R92zf3M3 WNYcUWCtSKQ8uEG8iD1m bGlnbjogbGVmdDsg rcZenTgtRHnqEWkwG855 IHRvcDsnPkJpcnRoIERh hAY9HQ07ST35kWFxs5M4 tJW3K6YbSJZwrtps rvitwAN9NSHvFEBboY43 Wg1exVjlFe2vCVDsOQZ7 ZCRnmZSkJ9DmnW5qIqSw DECkYRQqD9QfnUJf COcqP520HEzeCiW4VENq zpRhR1FcPFGzgZuzMtT4 s8B5Qj7SE3M4QF67LX29 tKNyw1D2oLQ5S2Pn PEObiniihnqbyCA7ZMYd EBBtjQ64Gc0qpKiuYd0e ZEAfBLX4OIZklBErH9Id pR4zKdMnGRZnPAMp R6CibFQwVWdqZ912XVwj RsR2IBUlvdWnS2YuKNLh wMmuTmA8a1D2Hd5PERa0 BW50PR76vTAcr3E1 dCK8M2CjGRAzkjtjaenx nZJ7GXHyJMFnoJ17Al8z nUitIp4iWAPwPBQ5RZJm bYAzH5SmhI9cMzPn BZAiOIMyU8DecZSpVLfz S172CZitBdO2GVDwphFm D4YlHEAcbFaaZnP6x7P2 Gn6FJGBjXI09MJI9 vVE6BL71UK75U6NqTorv dGFibGU+PHRhYmxlIHdp ZHRoPScxMDAlJyBzdHls GF4gVx2jSEHeUCWp wZtaxPOkExVyt9npQILy USokBU2vmXdgN0XgfBX3 IEYhn3a6Rp13U04lQ9Ht dXA+KGCygUK6yPE0 vF1xZdTxOoK1BTxeI858 VdCylTQmFuabx3ste8gy wVc8NxO5YABanwZogGlf MWN7g3LnIx46N25a IHdpZHRoPSIxNSUiIHZh uOalhv1llH0gXh2+PGNv jDH1cMO8hF8uGiRzGvA8 HFyqU669TjJizKRa Majbq0jgm4pmfGf0QlYd WYFjscMrsApkFSO4f3Dm Wg29A6QzkIvod6UpNlq3 xg63eRUqe4C9hJZ5 O2XwCUIpmrisrTFqsZwh FX6pHBHehyguXXTazY3s PLXaE0g6FkSrRlD6DNij P8NxtdM6PZJbmGWv CYqzEYU0W21xm5B1JNFn XZHoUGN2lND0mN3owFvb bjogbGVmdDsgdmVydGlj KCrqXCloW801JKDe fBdmMOQdxC2uUGBnuKIb xFrfAK1jWZWloubeGznW LPDnRPnUNFRJQM41FF30 dCKcm5U9pOO4L6Hd VEVjgfewpxlthCI4ITDu IYYknX33lQEmBWzaDq9m p9Q6t998FDUbQRGzqI76 Hk1duGvzCDEkxSKU kK8qimnhv1mozqzkNvFn RVFgOUk2SAj9IVGyzQel OuYvQWB8OvH6IHP0fDUs xB0iaDjzlshhsM6g Oyc+DSPqUykcXOv9LNrx dGQ+PVCsLYF3vFiyOTga EBSeoJ5aAPAzI1s5MvLf KpU1YQlgL9KuAOPe vvidAh29eH3gCzJkZlU4 CTweE7MfsjN1AAQouSNz VHsmWKY1V56qv3A1ZZNy KAVbAGN1tHB0fG5c bGlnbjogbGVmdDsgdmVy lAqlCGbzMZtyI579SZCr aMhrFiPvQPzsKUNaZA92 LT33wYGeo0Q0dHO8 B5FoRYSqmjhecncdkFC7 AKKsOWSczA77hPRtYYqs Re2tp1C3f517QZUcVFZx cX00Dx2jdCxkGRQm hWQFvL1rhdsif0ufdrqq OzYmSGZtBMl0EOh4AMQm fZjuUgJtLRS6OiL3FPU3 qCUmaA5clZwmvkbd jI4eMry+BzFqYClhUE91 XJ90uKPhl9E6hGF2B8Ip TSWoncihnsdbdPE3NGVm TZTzkT83jBFbVExs Gd5jh0Z7m379HZDbRICw pP98Si4srYiqKSXjpYUS hT8tqcyyf9serkegPtDb TDSbHUy9QWz3KDSj lCmuFbHjPNC6YyT5DDH4 yEGhbS8urRobwqspkG4u Oyc+R4D5tES6eOYpjTnv dGQ+NN08bw05Q3Rk JzecAgq3HBNzKEQ7gNB9 sN8pDFAbIHjkz7D0wLD9 I0GqhsPanf4tj7vxMGHz SGokZ23adBAhl4P4 MTLblZH5WTEjpYtrXzEc aD80Qxs+QLDuzCbtj9Vq Jizyw6ybd3ipjAe6QnQh JSIgdmFsaWduPSJ0 l7JzDi64O53nLUxgSTZc FWZcUFVyBTJvkQnjkr2d mA2eMu2+RXUtvOJ1gVS2 gH5bDgAwIpI9LYlz O507KxBlyEKlYyjbe7qk z6alnEq5ZjHzDSXchyQy uQzmSXZ4r1ByOl89Z5De aQoty9NjJyw2ej43 wFSkx3T6iYC1R3QeSUBf dsbjwYXoqDjkAZ5fXKHk yxitCUDnjL5uTNJqJ2b3 EeKtWzF1BDwcI9Lr opV2LAQuqAXsUVDzyQGO bO5bqpsie5evclibKaQq ISEdZHr0MDw3IBWilRxi FcGqZGM9DpL5OFP7 qGAxqH5ttXkpyvfumK0l Oyc+BKj5s7jtzVWmJD8i gSX4WE14LJ54rXSii7Q6 nER3K7LgILQvtmlr ibsrpOL3TJAsLYOwwF82 Cx6ziRvfHt9mCLEkZRP1 QZXrrXMyW4XqiQ0sXaOx RTZaITLgJ7FgsSBn MGsrU817UDxjNhU4WRTq dzIuS2BaFTCkiAulYvD6 q6O8Ja9KGB45XY62EW09 sXRlb3A8ySD3H7Rk KEDbxsuebsfdeTR1DKEj KFLlyZ45Dp7rpFyyOc1f KAYqCRC2LFEtzQJbO4Dj eR1sEwUdSTQwBCDp S2SlzJOvOJndI258CZzo NdW7CYJyspJrK9VkMIIo uGcmUbW1w9R8Rk4IQm46 BW29AW93oBKur5I6 lQA9B3YhEXNzjtuoydpu vEW9GWDiDDXysZ58Cy0o tXiuLl1gFTNfQMA1XRJz aRDwR2DiyU1jGeCy OVTxYOZzN3ZijPGjMSpm V689DNctDoP4OPZxdfWe R3SdMZOwxMjbSxE9l8J0 Pg9NBQbiliu4Z3Ou PjwvdHI+LR09AHStVD83 qXQwaOImi5yydGr6HjDx UTBdQND3lQwtZOfnl1Vl LEPgV34liINql1Z9 IGNv (more content not included)... Normal [facility] Coding Summary. CD:[id number]:[id number] Gh0bWw+PGhlYWQ+PE1FV EJzA82nkPBueO5YE8qPF W2QSVXGXQBIPH7QBR4cu PT3NBgzR4PwwhYp SmtmhPSwKG83UZv2BMK1 hLvnNIpbhQ3kmPQdU9m1 IoWsWF64qF22ATsiGVHx CjW2GsZuxfvsfBVm B4spHwKxqQIzUji+PHRh YmxlIHdpZHRoPScxMDAl WuGogSxnGR3sRb1cRHVg LWNvbGxhcHNlOiBj z0wdQQVfBMdxMF3bbFrw X0OgpGS0TOGox7h5Rj60 dHI+AUKgUTC8oZhfXFon u189FcOnw8sqJCW6 tKPkIFlcXWM4K77ui2O2 TJWcJHBkILS9kFX4jD5q tJisuoddJ7SwqGQdGpJ8 RAL1vVEqlX1ssUyp kwrmpB5yUla+J95WER0T XHWXKE2JVru0B6OoGmaw dHI+LZ21ZXSjWM40bZEx yWEhb2lfoYt9IcYt BNZyWIE8oEqsMOpsv0Jh BQXxP51aqSSmp3F7ULXo lYvlsNEuBpIhqCM5sB9v EZfyjpbeo7zypntk Rnrov4ksbv80jH80M24r EPmnGPNnUWT4PCWjIPOm iCtrcz4rsE3dEi5+IDxj v5trd6ahaCc6OrVc HFYkzjHowXfgJMG4l4Vr Hc34B8GvdRqen2HgVqf5 zg40mYOzi4X5vSE4CVay ODUtnY9hEBcxVnX7 BFGtBaHacK07cZXaNIgo Fg8nzUfvrTpdRI5hXNSe vnokGCHhpT0sSBSnyDDf uCafMU8mSGHsldvc u451AwFbZUQ8PSHytXAp Q9FyhV3gLnJxXWNbVTQj R9VtjAWdKMqgB331VDld XdY2TXEkhcDaX7Ax NXKjiBncKjW7x0T6Th9H p9UhhomwKHU4TWfjZJLv JiE4HfGtOkX6U1EjGyo8 MNWuoXngCJ2yB6We KQAqzzxpmuydsJN5OAGp ZVJrtQ07vRLiBEbkZb6a r8U9v560TEOhUJTcyW74 Ip3jlOhfJUQwlPTO zR4tveeuj9pvricgUhHo FKHzHIg9ZSy7TFNwpFwn AaWhGIU0MqT4PSV0eYWc hB3uzJvalnwdhE6n Oyc+K59sqR4uZMX1XCY9 brnuFHOvnzGfCQ59UO41 K2RtBwomwBXddRF+PGRp awCzvFkpXO3xTaBw q1idh6BpQUytU2TpTMSt HLxvSvb1OGJmXMC0rUC3 qG2zOWWvGXcpo1F8wMF2 N2RfyyUdaq7ea0yl MAQxKXmuA00pcQIsh1E8 ZUQkdAM2PMKmgWskQnWe bG51Xdn+EPEnrGqtp1Tv Tziqv2wgd0udlMh2 IjMwJSIgdmFsaWduPSJ0 w6QvVx64I02kDAekOKYg HHQoUWPlAHUqaNjzig0q oT6pNu5+PGNvbCB3 uHF2rS1wAODoZfJ9VGrz G297UrUycCKgNuxdn8ld n6nvkBz2ObJqMNTddiIl qRvhKWR6i7IaXx48 S07zQAlpFHKaHUScAVKj IUPdrJelnq4foA4hYr5+ QX6ry9daeg68bU59oBL+ LIFmHBZ3hByjANtr MTRbnP4uDKoiUnT4JTMa RfVfaX57tSOeKPdxYo8m oIienHocDF5kZYJtdttu c409KgUmi5fkOPKm iDGxLGhqZJG3X12gc6M1 BUXhYCQbQTQ9mUH2bR4e bGlnbjogbGVmdDsgdmVy zMteFBkrZSjuA251 IHRvcDsnPlBhdGllbnQg BlOrIBx0V2McBky3LPQg pEaaRI2tkZQvXFacVk5m uObdwHwbHN3tZAWu pbrge236ExRjs3edTUAs sZGxVEpmJXG5S62ev1X5 ZEDsMHEbLJE7pLJ2kK9c bGlnbjogbGVmdDsg qoDmpHtbXUnhVNlmJ281 IHRvcDsnPkJpcnRoIERh hNQ6QA19AQ25aYVto7J1 cYE4K2BqWUUbodjs pceslTY8VPGuNFNxhM39 Px5rkJbuPd1eLGGzCBE7 ZFRbpQYeA3LmiJ7zFwSd MFVcFNCcU4LweKZq KUlrL703HGrcRkI0NGSb eoOfS2PuJTBfqXffRmJ3 t1M4Fx5QC3S1GP41FX83 kSNle7W8kMA1D1Gs ELFbjiqsttlutGD1MLPe JPWthB11Hd8kuGjeQi5b CZFgTJT7KPTclLWpF3Co fK2hEtGcHDOdFVSe O9HbuXHdQTzkP507YZxq ZzI6XVCwvaXjI9PwZSJw pRnrCiG2d0D8Pc7IZZt7 RK65VH64hDLww6D8 vCI1W8NgLNLsdzwqgnfy zHE8IMYoROIvzH85Ef5g fDesFf6iNJOsARD0COVc qSPfU7FwnM3yXmPc FQMgDPNpX1SedFXrLSck E402RUpsWcZ8EXBvrxVc D5PjVUWegXhnDvM1f5C5 Gp6RUCZpPM12CRH3 rIX7VP66IX02F1KdLzbz dGFibGU+PHRhYmxlIHdp ZHRoPScxMDAlJyBzdHls JF0sNz1yGIIpEQDl gXaptWNiXjFjm4ptDEVm BFtcXD1ilYolS3DluSO2 CFFgd7j8Nl13J81eT0Hm dXA+DMBpaDT0yYS4 vX8tSmFzOwZ6MFyqA377 JySvtPXgLdtip4xdx7yl mTg6KkH3VDCigzUldMuv NEY4d6QdBv34O55o IHdpZHRoPSIxNSUiIHZh vUggjn9yeQ9eEu2+PGNv xCA5nDC7rN8xVqYhPjD5 PDxiT655DpPhcWQe Ossfx3dnw7mtwZc1NvJg KALchdZybWoqREJ6z7Ay Nd33O1NxkObse4TzEut8 ns09fHFqz0W2zSV8 I8DcVLQfmssbfJUgeBvt UH5cSMRftlrcPWPozI9o FXYhD8v0MoLlXtO7NOfj R8ZvjzL0FBAttWEq MYoeQEZ8V65kg4O1PLVq VBTvRDI3kYK5cF9vaWsu bjogbGVmdDsgdmVydGlj SDvdIBtiH906YQUz aDwgALWeyE9lNVFpsRTp uKbcGN2wHXPhsnfwTvtO RQHiETuAHICWUW00MC30 lMPpz8S2zWK0Y7Vs XGNlortqsdatfNH9YMHk LABksB62qIIfAChsXx7h h7M9f950KEXjYEGjaP28 Tq4dxCndMCXplLXT cZ1ejfkla0vdombdLnGf KQEmXSb4DVw0VMTxsRei ZkFmRQG0DaG5AWY1lFVj nU2zcBdegyjlxI5m Oyc+JYYwMhukHBu1HYmf dGQ+XFPwPMR9sJbdKSej CGQowJ3gLCYpD2v1OxJm PvV8QGntF7OfEKVq leubCs90mS4oFyQwDiH6 KFjvV8SgsiO6WXUyhZNb BFadDQU5S98ob4H9GEVe UEQeCTY5cHM8uW6x bGlnbjogbGVmdDsgdmVy nMqmOHfiUVxpR571JXPw eFvlTaZzQRfyFUVdHX97 FP21kRVrt3L5tEX8 G1JdSINrmkvyemfeeQC1 MELmVUWgzZ24pXGfJIey Ft6ml1C6f034GRZxRGTh qO97Ot8xtBogLEQh uAETdS6qgwbcz3vfhtxj ZqQtCGGmWPv3HMc9TEKg mOecWjJmKOG0PjD6FPN9 rQFqlM0nqQbsrltq iN5uEjp+GzDhHBucWD90 CC07cUKaj8J2vXJ9G4Xd NEQmzyjuqjwjhPR3CIZb GZDowN76xFHlOLbf Yg0hm4O8h697HJSoAHSe dV12Or3blQzyZWCgaTGS gY8hocyqt0hvxxteWoYh CHCnKGn8MUb6YVXu yMihAtZkHHJ9FqG1EVB5 zGNeeW4rkBdfeqxxbL5o Oyc+KXFyDUQqs8Pdj7Xu XG97JE48F0UsAosn dGFibGU+PHRhYmxlIHdp ZHRoPScxMDAlJyBzdHls YR8vWt2hDUZzTSPyeDal vPQnGlCxu2wuEYCg HSocCC7czZisR6GasBJ1 VMSid8n1Rn02F74jN9Aj dXA+RJOwnEL8aQB5bS1l YmZpBsF5JUopA388 XyIcsPYzGnpay4vme2fw cWm8RkWrUQJmhsKgzHtj MHV4b3XjAn95D60rOFnv ZHRoPSIyMCUiIHZh aNnusx7bvG1cWb8+PGNv yPH0vGV3oL5lEsDlTuX6 TVhrI203GiHmhFTqTosb R84mA6LtdGF+PHRy Myz3HTDedTjeSR1zcDPk PGecFz3fAJV1AvFwHrVj RBcmW0FhMQUoikjcbimn uPN6QCUjFORijZ78 Nx1ocDwjQv2mIETmQNE0 QOEilQBrA9UhhQ1gNkYr DVGhZEPvV4WimUUmUCrz Q761LQgdYdQ5AIMs amAoL4PsRHAqeEdfEyN5 e1E0Jw9LdGtouBIvKD1h ScIzYQq1L0QgSib2SWSl oSvuSI6ccTZzUUcr Of3jnYchiFdoCB6sYHJa diben469KtOzh2yfDHXq wFSkGOxeEGD0G01yi7V7 ITIzFFMqTAA4sWP9 kG0fmBfwribrwOOflXei seMarTsuYBlwDKrvN434 KFSntDtwXdRLOgd6Z6Kr Zou0VLTclIrlNT5d xHNzTPoqUp5nrUauxSou GC0iKMHrcoamd951RcSi m0leIMVaaNOzDAgoDMI9 A52xn6L6BYZuWPMo TQZ7sQA2mY5frQipsvph bGVmdDsgdmVydGljYWwt QTfnK239HTGrbXhzYu3Y Psf2Z5LrDjb8XIIw mKkbFX6yzALyALnlUp6s eHspcRewGH4fJIGiazfa s593HvHcv5xlFBUntDUa HWqyXNY6S33xg4U7 WAAbPSIoIKA9jLO4xX0y bGlnbjogbGVmdDsgdmVy aXgtKHshSMgeL847CKYc cDsnPlBheWVyOjwv dGQ+HY40qr36F9YxVorp Nmn3XPHqPGY0vJA8rT6e OIGsCJjki4Z6jKX2A3Zy ojGzwn8hw8gwQTRv ZTog (more content not included)... Normal [facility] PAP [id number] 08-15-2021 Cytology report Cyto stain Doc (Cvx/Vag) [...] is identified. Performed by: 01 Sujey Eng[employer] Inspector (ASCP) . 01 Note: Note 01 The [...] High <-Panic Low,>-Panic High,A-Abnormal,AA-Critical Abnormal Performed at: [address] [id number] Mar Rivera MD, Performed By: #### 1 [id number] #### [facility] [address] [place] [address] HPV 16+18+31+33+35+39+45 +51+52+56+58+59+66+6 8 DNA Probe+sig amp Ql (Cvx) Negative Invalid Interpretation Code Negative [facility] Comment on above: Result Comment: This nucleic acid amplification test detects fourteen high-risk HPV types (16,18,31,33,35,39,45,51,52,56,58,59,66,68) without differentiation. Performed at: [facility] [address], [place] [id number] MD Nicole Manuel Performed at: [facility] [address], [place] [id number] MD Nicole Manuel Performed By: #### 1 [id number] #### [facility] [address] [place] [address] Insulin Lvlon 08-11-2021 Insulin Qn 24.3 u[IU]/mL Invalid Interpretation Code 2.6-24.9 [facility] Comment on above: Result Comment: Perf ormed at: [facility] [address] [id number] PhD Archie Jha Performed By: #### 1 [id number] #### [facility] [address] [id number] Consent for Treatmenton 07-29 Consent for Treatment [id number] #1.00CD:127 Normal [facility] Glu Fastingon 08-10-2021 Glucose [Mass/Vol] 95 mg/dL Normal 55-99 [facility] Comment on above: Performed By: #### 1 [id number] #### [facility] [address] [place] [address] Physician Orderon 08-10-2021 Physician Order [id number] 2#1.00CD:127 Normal [facility] PAP [id number] 08-09-2021 Collection Technique BRUSH-SPATULA Normal [facility] Comment on above: Performed By: #### 1 [id number] #### [facility] [address] [place] [address] Gynecological Body Site ENDOCERVIX Normal [facility] Comment on above: Performed By: #### 1 [id number] #### [facility] [address] [place] [address] Physician Orderon 08-09-2021 Physician Order [id number] #1.00CD:127 Normal [facility] Gynecology Office/Clinic Not pratik 02-17-2019 Gynecology [...] Time Vital Sign Value Performing Clinician Facility 09-22-2024 09:37-0500 Body mass index (BMI) [Ratio] 35.85 kg/m2 Immanuel Yobani DO Work Phone: [facility] 09-22-2024 09:37-0500 Body weight 88.91 kg Immanuel Yobani DO Work Phone: [facility] 09-22-2024 09:37-0500 Diastolic blood pressure 70 mm[Hg] Immanuel Yobani DO Work Phone: [facility] 09-22-2024 09:37-0500 Systolic blood pressure 120 mm[Hg] Immanuel Yobani DO Work Phone: [facility] 09-08-2024 08:28-0500 Body mass index (BMI) [Ratio] 35.56 kg/m2 Immanuel Yobani DO Work Phone: [facility] 09-08-2024 08:28-0500 Body weight 88.18 kg Immanuel Yobani DO Work Phone: [facility] 09-08-2024 08:28-0500 Diastolic blood pressure 90 mm[Hg] Immanuel Yobani DO Work Phone: [facility] 09-08-2024 08:28-0500 Systolic blood pressure 132 mm[Hg] Immanuel Yobani DO Work Phone: [facility] 08-27-2024 11:45-0500 Body mass index (BMI) [Ratio] 35.08 kg/m2 Immanuel Yobani DO Work Phone: [facility] 08-27-2024 11:45-0500 Body weight 87 kg Immanuel Yobani DO Work Phone: [facility] 08-27-2024 11:45-0500 Diastolic blood pressure 82 mm[Hg] Immanuel Yobani DO Work Phone: [facility] 08-27-2024 11:45-0500 Systolic blood pressure 122 mm[Hg] Immanuel Yobani DO Work Phone: [facility] 08-12-2024 11:08-0500 Body mass index (BMI) [Ratio] 34.93 kg/m2 Immanuel Yobani DO Work Phone: [facility] 08-12-2024 11:08-0500 Body weight 86.64 kg Immanuel Yobani DO Work Phone: [facility] 08-12-2024 11:08-0500 Diastolic blood pressure 80 mm[Hg] Immanuel Yobani DO Work Phone: [facility] 08-12-2024 11:08-0500 Systolic blood pressure 120 mm[Hg] Immanuel Yobani DO Work Phone: [facility] 07-20-2024 11:00-0500 Body mass index (BMI) [Ratio] 34.39 kg/m2 Immanuel Yobani DO Work Phone: [facility] 07-20-2024 11:00-0500 Body weight 85.28 kg Immanuel Yobani DO Work Phone: [facility] 07-20-2024 11:00-0500 Diastolic blood pressure 76 mm[Hg] Immanuel Yobani DO Work Phone: [facility] 07-20-2024 11:00-0500 Systolic blood pressure 122 mm[Hg] Immanuel Yobani DO Work Phone: [facility] 06-22-2024 14:31-0500 Body mass index (BMI) [Ratio] 34.2 kg/m2 Immanuel Yobani DO Work Phone: [facility] 06-22-2024 14:31-0500 Body weight 84.82 kg Immanuel Yobani DO Work Phone: [facility] 06-22-2024 14:31-0500 Diastolic blood pressure 78 mm[Hg] Immanuel Yobani DO Work Phone: [facility] 06-22-2024 14:31-0500 Systolic blood pressure 124 mm[Hg] Immanuel Yobani DO Work Phone: [facility] 06-15-2024 10:27-0500 Body weight 84.82 kg Cele Rodriguez MD Work Phone: [facility] 06-15-2024 10:27-0500 Diastolic blood pressure 88 mm[Hg] Cele Rodriguez MD Work Phone: [facility] 06-15-2024 10:27-0500 Heart rate 99 /min Cele Rodriguez MD Work Phone: [facility] 06-15-2024 10:27-0500 Respiratory rate 18 /min Cele Rodriguez MD Work Phone: [facility] 06-15-2024 10:27-0500 Systolic blood pressure 137 mm[Hg] Cele Rodriguez MD Work Phone: [facility] 05-25-2024 11:46-0400 Body mass index (BMI) [Ratio] 33.84 kg/m2 Immanuel Yobani DO Work Phone: [facility] 05-25-2024 11:46-0400 Body weight 83.92 kg Immanuel Yobani DO Work Phone: [facility] 05-25-2024 11:46-0400 Diastolic blood pressure 74 mm[Hg] Immanuel Yobani DO Work Phone: [facility] 05-25-2024 11:46-0400 Systolic blood pressure 118 mm[Hg] Immanuel Yobani DO Work Phone: [facility] 04-27-2024 10:35-0400 Body mass index (BMI) [Ratio] 33.75 kg/m2 Immanuel Yobani DO Work Phone: [facility] 04-27-2024 10:35-0400 Body weight 83.69 kg Immanuel Yobani DO Work Phone: [facility] 04-27-2024 10:35-0400 Diastolic blood pressure 76 mm[Hg] Immanuel Yobani DO Work Phone: [facility] 04-27-2024 10:35-0400 Systolic blood pressure 122 mm[Hg] Immanuel Yobani DO Work Phone: [facility] 03-27-2024 10:27-0400 Body mass index (BMI) [Ratio] 34.53 kg/m2 [facility] 03-27-2024 10:27-0400 Body weight 85.64 kg [facility] Nurse [facility] 03-27-2024 10:27-0400 Diastolic blood pressure 70 mm[Hg] [facility] Nurse [facility] 03-27-2024 10:27-0400 Systolic blood pressure 120 mm[Hg] [facility] Nurse [facility] 01-02-2024 09:15-0400 Body height 157.48 cm [facility] 01-02-2024 09:15-0400 Body mass index (BMI) [Ratio] 33.9 kg/m2 [facility] 01-02-2024 09:15-0400 Body temperature 100.2 [degF] [facility] 01-02-2024 09:15-0400 Body weight 84.08 kg [facility] 01-02-2024 09:15-0400 Heart rate 115 /min [facility] 01-02-2024 09:15-0400 Respiratory rate 18 /min [facility] 01-02-2024 09:15-0400 SaO2% (BldA) [Mass fraction] 99 % [facility] Encounters Encounter Date Encounter Type Care Provider Facility Start: 09-22-2024 End: 09-22-2024 Bamboo flowsheet Immanuel Yobani DO Work Phone: [facility] Start: 09-22-2024 End: 09-22-2024 Bamboo flowsheet Immanuel Yobani DO Work Phone: [facility] Start: 09-22-2024 End: 09-22-2024 flow sheet Immanuel Yobani DO Work Phone: [facility] Comment on above: 35 weeks gestation o f ; Third trimester Start: 09-20-2024 Non-patient / [facility] Work Phone: Start: 09-16-2024 End: [...] Department Unsolicited Start: 09-12-2024 Non-patient / Non-visit [facility] Work Phone: Start: 09-09-2024 End: 09-09-2024 Clinisync Result Encounter Immanuel Yobani DO Work Phone: [facility] External Department Unsolicited Start: 09-09-2024 End: 09-09-2024 Clinisync Result Encounter Immanuel Yobani DO Work Phone: [facility] External Department Unsolicited Start: 09-09-2024 Non-patient / Non-visit [facility] Work Phone: Start: [...] Result Encounter Immanuel Yobani DO Work Phone: [facility] External Department Unsolicited Start: 08-05-2024 End: 08-05-2024 Clinisync Result Encounter Immanuel Yobani DO Work Phone: [facility] External Department Unsolicited Start: 08-05-2024 Non-patient / Non-visit [facility] Work Phone: Start: 07-20-2024 End: 07-20-2024 Bamboo flowsheet Immanuel Yobani DO Work Phone: [facility] Start: 07-20-2024 End: 07-20-2024 Bamboo flowsheet Immanuel Yobani DO Work Phone: [facility] Start: 07-20-2024 End: 07-20-2024 flow sheet Immanuel Yobani DO Work Phone: [facility] Comment on above: 26 weeks gestation o f ; Diabetes mellitus screening; Second trimester ; PCOS (polycystic ovarian syndrome); resulting from in vitro fertilization, antepartum; Gestational diabetes mellitus (GDM), antepartum, gestational diabetes method of control unspecified; Elevated glucose tolerance test Start: 07-20-2024 End: 07-20-2024 ambulatory IMMANUEL YOBANI Not Available Start: 06-29-2024 Non-patient / Non-visit [facility] Work Phone: Start: 06-22-2024 End: 06-22-2024 Bamboo flowsheet Immanuel Yobani DO Work Phone: [facility] Start: 06-22-2024 End: 06-22-2024 Bamboo flowsheet Immanuel Yobani DO Work Phone: [facility] Start: 06-22-2024 End: 06-22-2024 flow sheet Immanuel Yobani DO Work Phone: [facility] Comment on above: Second trimester pre gnancy; 22 weeks gestation of ; Personal history of cardiac murmur Start: 06-22-2024 End: 06-22-2024 ambulatory IMMANUEL YOBANI Not Available Start: 06-15-2024 End: 06-15-2024 Office consultation new/estab patient 60 min Cele Rodriguez MD Work Phone: [facility] Comment on above: 21 weeks gestation o f (Primary Dx); Chronic hypertension affecting ; In vitro fertilization Start: 06-15-2024 End: 06-15-2024 ambulatory CELE RODRIGUEZ [facility] Start: 05-28-2024 End: 05-30-2024 Clinisync Result Encounter Immanuel Yobani DO Work Phone: [facility] External Department Unsolicited Start: 05-28-2024 End: 05-30-2024 Clinisync Result Encounter Immanuel Yobani DO Work Phone: [facility] External Department Unsolicited Start: 05-27-2024 End: 05-27-2024 Chart abstracting Cele Rodriguez MD Work Phone: [facility] Start: 05-25-2024 End: 05-25-2024 Bamboo [...] Not Available Start: 01-02-2024 End: 01-02-2024 ambulatory [facility] Work Phone: Start: 01-02-2024 End: 01-02-2024 Patient encounter procedure [facility] Work Phone: [...] Date Procedure Procedure Detail Performing Clinician Start: 09-22-2024 Urnls dip stick/tabl et rgnt non-auto w/o micrscp Immanuel Yobani DO Work Phone: Start: 09-16-2024 US OB GROWTH Immanuel Fazi [...] malign ant neoplasm of cervix Pap Smear [facility] Start: 06-15-2025 Tobacco Screening Tobacco Screening [facility] Start: 09-29-2024 End: 09-29-2024 Patient encounter procedure 09/29/2024 11:20 AM EST Routine [facility] [address] [place] [id number] Immanuel Hilton, DO [address] [place] [id number] [facility] Start: 09-22-2024 End: 09-22-2025 CULTURE, GROUP B STREP WITH SUSCEPTIBLITY CULTURE, GROUP B STREP WITH SUSCEPTIBLITY Lab Routine Third trimester Expected: 09/22/2024, Expires: 09/22/2025 [facility] Work Phone: Comment on above: Expected: 09/22/2024 , Expires: 09/22/2025 Start: 09-22-2024 End: 09-22-2024 Patient encounter procedure [facility] Comment on above: Arrived Start: 09-20-2024 Urine culture [facility] Start: 09-08-2024 End: 09-08-2025 Alanine aminotransferase [Enzymatic activity/volume] in Serum or Plasma ALT Lab Routine induced hypertension, antepartum Expected: 09/08/2024 (Approximate), Expires: 09/08/2025 [facility] Comment on above: Expected: 09/08/2024 (Approximate), Expires: 09/08/2025 Start: 09-08-2024 End: 09-08-2025 Aspartate aminotransferase [Enzymatic activity/volume] in Serum or Plasma AST Lab Routine induced hypertension, antepartum Expected: 09/08/2024 (Approximate), Expires: 09/08/2025 [facility] Comment on above: Expected: 09/08/2024 (Approximate), Expires: 09/08/2025 Start: 09-08-2024 End: 09-08-2025 CBC W Auto Differential panel - Blood CBC and differential Lab Routine induced hypertension, antepartum Expected: 09/08/2024 (Approximate), Expires: 09/08/2025 [facility] Comment on above: Expected: 09/08/2024 (Approximate), Expires: 09/08/2025 Start: 09-08-2024 End: 09-08-2025 Creatinine [Mass/volume] in Serum or Plasma Creatinine Lab Routine induced hypertension, antepartum Expected: 09/08/2024 (Approximate), Expires: 09/08/2025 [facility] Work Phone: Comment on above: Expected: 09/08/2024 (Approximate), Expires: 09/08/2025 Start: 09-08-2024 End: 09-08-2025 Lactate dehydrogenase [Enzymatic activity/volume] in Serum or Plasma by Lactate to pyruvate reaction Lactate dehydrogenase Lab Routine induced hypertension, antepartum Expected: 09/08/2024, Expires: 09/08/2025 [facility] Comment on above: Expected: 09/08/2024 , Expires: 09/08/2025 Start: 09-08-2024 End: 09-08-2025 Protein, urine, 24 hour Protein, urine, 24 hour Lab Routine induced hypertension, antepartum Expected: 09/08/2024 (Approximate), Expires: 09/08/2025 [facility] Comment on above: Expected: 09/08/2024 (Approximate), Expires: 09/08/2025 Start: 09-08-2024 End: 09-08-2025 Pt and ptt Pt and ptt Lab Routine induced hypertension, antepartum Expected: 09/08/2024, Expires: 09/08/2025 [facility] Comment on above: Expected: 09/08/2024 , Expires: 09/08/2025 Start: 09-08-2024 End: 09-08-2025 Urate [Mass/volume] in Serum or Plasma Uric acid Lab Routine induced hypertension, antepartum Expected: 09/08/2024 (Approximate), Expires: 09/08/2025 [facility] Comment on above: Expected: 09/08/2024 (Approximate), Expires: 09/08/2025 Start: 09-08-2024 End: 09-08-2025 Urea nitrogen [Mass/volume] in Serum or Plasma BUN Lab Routine induced hypertension, antepartum Expected: 09/08/2024, Expires: 09/08/2025 [facility] Comment on above: Expected: 09/08/2024 , Expires: 09/08/2025 Start: 09-08-2024 End: 09-08-2024 Patient encounter procedure [facility] Comment on above: Arrived Start: 08-27-2024 End: 08-27-2024 Patient encounter procedure 08/27/2024 11:40 AM EST Routine [facility] [address] [place] [phone] Immanuel Hilton, DO [address] [place] [address] [facility] Start: 08-27-2024 End: 08-27-2024 Professional / ancillary services management 08/27/2024 11:00 AM EST Ancillary Procedure [facility] [address] [place] [address] [facility] Start: 08-12-2024 End: 08-12-2025 US biophysical profile w non stress test US biophysical profile w non stress test Imaging Routine Gestational diabetes mellitus (GDM), antepartum, gestational diabetes method of control unspecified Encounter for in vitro fertilization Expected: 08/12/2024 (Approximate), Expires: 08/12/2025 [facility] Work Phone: Comment on above: Expected: 08/12/2024 (Approximate), Expires: 08/12/2025 Start: 08-12-2024 End: 08-12-2024 Patient encounter procedure [facility] Comment on above: Arrived Start: 07-20-2024 End: 07-20-2025 CBC panel - Blood by Automated count CBC Lab Routine 26 weeks gestation of Diabetes mellitus screening Expected: 07/20/2024 (Approximate), Expires: 07/20/2025 [facility] Work Phone: Comment on above: Expected: 07/20/2024 (Approximate), Expires: 07/20/2025 Start: 07-20-2024 End: 07-20-2025 Measurement of glucose 1 hour after glucose challenge for glucose tolerance test Glucose tolerance, 1 hour Lab Routine 26 weeks gestation of Diabetes mellitus screening Expected: 07/20/2024 (Approximate), Expires: 07/20/2025 [facility] Comment on above: Expected: 07/20/2024 (Approximate), [...] End: 06-15-2024 Patient encounter procedure [facility] Start: 05-25-2024 End: 11-23-2024 Alpha fetoprotein, maternal Alpha fetoprotein, maternal Lab Routine Second trimester Expected: 05/25/2024 (Approximate), Expires: 11/23/2024 [facility] Comment on above: Expected: 05/25/2024 (Approximate), Expires: 11/23/2024 Start: 05-25-2024 End: 05-25-2024 Patient encounter procedure [facility] Comment on above: Arrived Start: 05-05-2024 End: 05-05-2024 Professional / ancillary services management 05/05/2024 2:30 PM EDT Ancillary Procedure [facility] [address] [place] [id number] [facility] Start: 04-27-2024 End: 04-27-2025 US Pelvis transvaginal US OB transvaginal Imaging Routine Encounter for screening for cervical length Expected: 04/27/2024 (Approximate), Expires: 04/27/2025 [facility] Work Phone: Comment on above: Expected: 04/27/2024 (Approximate), Expires: 04/27/2025 Start: 04-27-2024 End: 04-27-2024 Patient encounter procedure 04/27/2024 10:20 AM EDT Routine [facility] [address] [place] [id number] Immanuel Hilton, [address] [place] [address] [facility] Start: 03-29-2024 COVID-19 Vaccine ( season) COVID-19 Vaccine ( season) [facility] Start: 03-29-2024 Influenza vaccination [facility] Start: 03-27-2024 End: 03-27-2025 ABO/Rh ABO/Rh Lab Routine Missed menses Expected: 03/27/2024 (Approximate), Expires: 03/27/2025 [facility] Comment on above: Expected: 03/27/2024 (Approximate), Expires: 03/27/2025 Start: 03-27-2024 End: 03-27-2025 Blood type and Indirect antibody screen panel - Blood Type and screen Lab Routine Missed menses Expected: 03/27/2024 (Approximate), Expires: 03/27/2025 [facility] Work Phone: Comment on above: Expected: 03/27/2024 (Approximate), Expires: 03/27/2025 Start: 03-27-2024 End: 03-27-2025 US Pelvis transvaginal US OB transvaginal Imaging Routine Missed menses Expected: 03/27/2024 (Approximate), Expires: 03/27/2025 [facility] Comment on above: Expected: 03/27/2024 (Approximate), Expires: 03/27/2025 Start: 2020 Screening for malign ant neoplasm of cervix Pap Smear [facility] Start: 2018 DTaP,Tdap and Td Vac cines (1 - Tdap) DTaP,Tdap and Td Vaccines (1 - Tdap) [facility] Start: 2017 Adult BMI Screening Adult BMI Screen ing [facility] Start: 2011 Depression Screening Depression Scre ening [facility] Start: 2011 Tobacco Screening Tobacco Screening [facility] Start: 1999 Screening for Chlamy leoncio trachomatis Chlamydia Screening [facility] Bacteria identified in Urine by Culture Urine culture Microbiology Routine Missed menses Ordered: 03/27/2024 [facility] Comment on above: Ordered: 03/27/2024 CBC W Auto Different ial panel - Blood CBC and differential Lab Routine Missed menses Ordered: 03/27/2024 [facility] Comment on above: Ordered: 03/27/2024 CHLAMYDIA TRACHOMATI S (GENITO/STI) CHLAMYDIA TRACHOMATIS (GENITO/STI) Lab Routine STD exposure Ordered: 05/25/2024 [facility] Comment on above: Ordered: 05/25/2024 Cytology Cervical or vaginal smear or scraping study Pap Smear Pathology and Cytology Routine Well woman exam with routine gynecological exam Ordered: 05/25/2024 [facility] Work Phone: Comment on above: Ordered: 05/25/2024 Hemoglobin A1c/Hemoglobin.total in Blood Hemoglobin A1c Lab Routine Missed menses Ordered: 03/27/2024 [facility] Comment on above: Ordered: 03/27/2024 Hepatitis B virus love rface Ag [Presence] in Serum or Plasma by Immunoassay Hepatitis B surface antigen Lab Routine Missed menses Ordered: 03/27/2024 [facility] Comment on above: Ordered: 03/27/2024 Hepatitis C virus Ab [Presence] in Serum or Plasma by Immunoassay Hepatitis C antibody Lab Routine Missed menses Ordered: 03/27/2024 [facility] Comment on above: Ordered: 03/27/2024 HIV-1/HIV-2 antigen/antibody combination immunoassay HIV-1 and HIV-2 antibodies Lab Routine Missed menses Ordered: 03/27/2024 [facility] Comment on above: Ordered: 03/27/2024 Neisseria gonorrhoea e DNA [Presence] in Unspecified specimen by BUCK with probe detection Neisseria gonorrhea DNA probe, direct Lab Routine STD exposure Ordered: 05/25/2024 [facility] Comment on above: Ordered: 05/25/2024 Reagin Ab [Presence] in Serum by RPR RPR Lab Routine Missed menses Ordered: 03/27/2024 [facility] Comment on above: Ordered: 03/27/2024 Rubella antibody, IgG Rubella an tibody, IgG Lab Routine Missed menses Ordered: 03/27/2024 [facility] Comment on above: Ordered: 03/27/2024 SURESWAB(R) ADVANCED VAGINITIS PLUS, TMA SURESWAB(R) ADVANCED VAGINITIS PLUS, TMA Pathology and Cytology Routine Vaginal discharge Ordered: 05/25/2024 [facility] Comment on above: Ordered: 05/25/2024 Payers Date Payer Category Payer Commercial Managed C are - PPO [employer] [id number] 2023 [facility] [id number] 2023 Unknown [id number] 2021 Private Health Insurance [id number] 2021 Unknown [id number] [id number]. [id number] 2021 Unknown [id number] 1999 Unknown [id number] 2.16.840.1.293460.3.579.2. 593 1999 Unknown [id number] 2.16.840.1.012548.3.579.2. 593 1999 Unknown [id number] 2.16.840.1.779244.3.579.2. 593 1999 Unknown [id number] 2.16.840.1.271408.3.579.2. 593 1999 Unknown [id number] 2.16.840.1.249700.3.579.2. 593 1999 Unknown [id number] 2.16.840.1.026569.3.579.2. 593 1999 Unknown [id number] 2.16.840.1.787156.3.579.2. 593 1999 Unknown [id number] 2.16.840.1.088357.3.579.2. 1286 1999 Unknown [id number] 2.16.840.1.468098.3.579.2. 1286 1999 Unknown [id number] 2.16.840.1.791383.3.579.2. 1259 1999 Unknown [id number] 2.16.840.1.679220.3.579.2. 1259 1999 Unknown [id number] 2.16.840.1.730946.3.579.2. 9 1999 Unknown [id number] 2.16.840.1.927547.3.579.2. 9 1999 Unknown [id number] 2.16.840.1.593015.3.579.2. 9 1999 Unknown [id number] 2.16.840.1.836510.3.579.2. 1258 1999 Unknown [id number] 2.16.840.1.597437.3.579.2. 9 1999 Unknown [id number] 2.16.840.1.827379.3.579.2. 1258 1999 Unknown [id number] 2.16.840.1.383994.3.579.2. 9 1999 Unknown [id number] 2.16.840.1.044067.3.579.2. 9 1999 Unknown [id number] 2.16.840.1.923839.3.579.2. 1259 1959 Private Health Insurance [id number] 1959 Unknown [id number] Social History Date Type Detail Facility Tobacco smoking stat [facility] Unknown if ever smoked [facility] Work Phone: Start: 1999 Sex Assigned At Female [facility] Start: 01-02-2024 End: 05-27-2024 Tobacco smoking status [facility] Never smoked tobacco [facility] Start: 01-02-2024 End: 05-27-2024 Tobacco use and exposure Smokeless tobacco non-user [facility] Start: 04-27-2024 End: 09-22-2024 Alcoholic beverage intake Ex-drinker (finding) [facility] Start: 01-02-2024 End: 06-15-2024 History of Social function [facility] Start: 01-02-2024 End: 06-15-2024 Tobacco use panel [facility] Start: 01-29-2024 [facility] Start: 11-26-2023 Gender identity Identifies as female gender (finding) [facility] Start: 05-27-2024 End: 06-15-2024 Alcoholic beverage intake Lifetime non-drinker (finding) [employer] [facility] Start: 1999 Sex assigned at Not on file [employer] [facility] Start: 05-26-2024 End: 09-22-2024 [facility]finding[facility] Tobacco smoking stat [facility] Unknown if ever smoked [facility] Work Phone: Medical Equipment Procedure Code Equipment Code Equipment Origin al Text Equipment Identifier Dates 1 strip by In Vi tro route Daily Use in the morning prior to breakfast, 1 hour after each meal for a total of 4times daily. [id number] Start: 07-20-2024 End: 08-19-2024 1 each by In Vit ro route Daily Use to check FSBS four times daily [id number] Start: 07-20-2024 End: 08-19-2024 Goals Date Patient Goal Desired Activity /State Personal health goal Clinical Notes 03-27-2024 to 09-22-2024 Chika Tracy, METALLOGRAPHER - 09/22/2024 9:20 AM Donell Tracy, METALLOGRAPHER - 09/08/2024 8:30 AM Gautam Peter, [facility] - 08/27/2024 11:40 AM Donell Tracy, [facility] - 08/12/2024 11:10 AM EST Note Date & Type Note Facility 09-22-2024 History of Present illness Narrative Reason for Appointment: Patient ID: Amy Mario is a 24 y.o. female who presents for Routine Visit Patient presents today for Return OB appointment. MEDICATIONS Current Outpatient Medications Medication Instructions Alcohol Swabs (Alcohol Prep Pad) 70 % pads 1 Pad, Topical, Daily, Use four times daily to check FSBS. aspirin 81 mg, Daily [employer] misc 1 each, Does not apply, As needed Blood Glucose Monitoring Suppl (D-Care Glucometer) w/Device kit 1 kit, Does not apply, Daily, Use four times daily to check FSBS. In the morning prior to breakfast & 1 hour after each meal for a total of 4times daily. Continuous Glucose [employer] Hrms Developer (N[employer] NeurosciencesStyle Jenise 3 [place]) device 1 each, Does not apply, Every 14 days Continuous Glucose Sensor (FreeStyle Jenise 3 Sensor) misc 1 each, Does not apply, Every 14 days labetalol (NORMODYNE) 100 mg, Oral, 2 times daily Multiple Vitamin (multivitamin) tablet 1 tablet, Daily ondansetron (ZOFRAN) 4 mg, Every 8 hours PRN ALLERGIES Allergies Allergen Reactions [place] Flavor [[place] Oil] Latex Hives, Itching, Rash and Swelling [...] Objective: Physical Exam Constitutional: Appearance: Normal appearance. Genitourinary: Right Adnexa: not tender and no mass present. Left Adnexa: not tender and no mass present. No cervical discharge. Breasts: Breasts are soft. Right: Normal. Left: Normal. HENT: Head: Normocephalic. Nose: Nose normal. Mouth/Throat: Mouth: Mucous membranes are moist. Cardiovascular: Rate and Rhythm: Normal rate. Pulmonary: Effort: Pulmonary effort is normal. Abdominal: General: Bowel sounds are normal. Palpations: Abdomen is soft. Musculoskeletal: General: Normal range of motion. Cervical back: Normal range of motion. Neurological: General: No focal deficit present. Mental Status: She is alert. Skin: General: Skin is warm and dry. Psychiatric: Mood and Affect: Mood normal. Vitals and nursing note reviewed. Exam conducted with a crm dynamics developer present. Vitals: Estimated body mass index is 35.85 kg/m as calculated from the following: Height as of 24: 5' 2 . Weight as of this encounter: 196 lb. BP: 120/70 No LMP recorded. Patient is . ASSESSMENT & PLAN ICD-10-CM 1. 35 weeks gestation of Z3A.35 POCT urinalysis dipstick manually resulted CANCELED: POCT urinalysis dipstick manually resulted 2. Third trimester Z34.93 CULTURE, GROUP B STREP WITH SUSCEPTIBLITY CULTURE, GROUP B STREP WITH SUSCEPTIBLITY POCT urinalysis dipstick manually resulted CANCELED: POCT urinalysis dipstick manually resulted Patient is doing well but has complaints of being tired and having maternal discomfort due to . Patient verbalized frequent movement and was instructed to perform kick counts three times per day. labor precautions were given, LARC consent was signed/declined, and GBS was obtained. Cervical check was performed and patient is 2cm dilated. Discussed urine output and blood pressure. Pt doing better today. Orders Placed This Encounter Procedures CULTURE, GROUP B STREP WITH SUSCEPTIBLITY POCT urinalysis dipstick manually resulted Follow Up: Patient is to return to office in 1 week for routine OB appointment Documented by Chika Tracy LPN on behalf of: Immanuel Hilton DO documented in this encounter [facility] 09-08-2024 History of Present illness Narrative Reason [...] a total of 4times daily. Continuous Glucose [employer] Hrms Developer (FreeStyle Jenise 3 [place]) device 1 each, Does not apply, Every 14 days Continuous Glucose Sensor (FreeStyle Jenise 3 Sensor) misc 1 each, Does not apply, Every 14 days Multiple Vitamin (multivitamin) tablet 1 tablet, Daily terconazole (Terazol 7) 0.4 % vaginal cream 1 applicator, Vaginal, Nightly ALLERGIES Allergies Allergen Reactions [place] Flavor [[place] Oil] Latex Hives, Itching, Rash and Swelling [...] nursing note reviewed. Exam conducted with a crm dynamics developer present. Vitals: Estimated body mass index [...] Hilton DO documented in this encounter [facility] 08-27-2024 History of Present illness [...] a total of 4times daily. Continuous Glucose [employer] Hrms Developer (FreeStyle Jenise 3 [place]) device 1 each, Does not apply, Every 14 days Continuous Glucose Sensor (FreeStyle Jenise 3 Sensor) misc 1 each, Does not apply, Every 14 days metroNIDAZOLE (FLAGYL) 500 mg, Oral, 2 times daily, Do not drink alcohol while taking this medication Multiple Vitamin (multivitamin) tablet 1 tablet, Daily ALLERGIES Allergies Allergen Reactions [place] Flavor [[place] Oil] Latex Hives, Itching, Rash and Swelling [...] nursing note reviewed. Exam conducted with a crm dynamics developer present. Vitals: Estimated body mass index is 35.08 kg/m as calculated from the following: Height as of 6/6/24: 5' 2 . Weight as of this [...] Hilton DO documented in this encounter [facility] 08-12-2024 History of Present illness [...] 1 tablet, Daily ALLERGIES Allergies Allergen Reactions [place] Flavor [[place] Oil] Latex Hives, Itching, Rash and Swelling [...] nursing note reviewed. Exam conducted with a crm dynamics developer present. Vitals: Estimated body mass index is 34.93 kg/m as calculated from the following: Height as of 6/6/24: 5' 2 . Weight as of this [...] Hilton DO documented in this encounter [facility] 07-20-2024 History of Present illness [...] mg, Oral, Daily ALLERGIES Allergies Allergen Reactions [place] Flavor [[place] Oil] Latex Hives, Itching, Rash and Swelling [...] Hilton DO documented in this encounter [facility] 06-22-2024 History of Present illness [...] mg, Oral, Daily ALLERGIES Allergies Allergen Reactions [place] Flavor [[place] Oil] Latex Hives, Itching, Rash and Swelling [...] Hilton DO documented in this encounter [facility] 06-15-2024 History of Present illness [...] Allergies: Allergies Allergen Reactions Latex, Natural Rubber [place] Meds: Prior to Admission medications Medication Sig [...] morbidities. Based on the available evidence, [facility] recommends treatment with antihypertensive therapy [...] preeclampsia prevention as is recommended by the [place] [employer]ne[employer] Committee Opinion No. 743. [...] Rodriguez MD, FACOG (she/hers) Maternal- Medicine [facility] [address] [place] [address] This document was created with [employer] technology. Though I make every effort to review the dictation as it is transcribed, on occasion the spoken word can be misinterpreted by the technology leading to inappropriate words, phrases, or sentences. This note is addressed to the requesting provider as a consultation for clinical guidance. Specific medical abbreviations are occasionally used and those are generally approved by the [place]?Board of?Obstetrics and?Gynecology?as well as?Kenzie s abbreviations. The above plan of care was based solely on the diagnoses for which a consultation was requested. ?More frequent testing may be indicated based on her other medical/obstetrical conditions. The management of other or medical conditions is beyond the scope of requested consultation and will continue to be followed by the primary play back operator or primary care provider. Note to [...] IVF Have you been seen here at [facility] in a previous ? N/a Recent ER visits or hospitalizations? no Bring blood sugar log or meter with you today? (Please bring them with you for every visit at [facility]) no Flu vaccine (May-September)? no Any concerns that you would like me to mention to the provider today? no documented in this encounter [email or web address] 05-25-2024 History of Present illness Narrative Reason [...] mg, Oral, Daily ALLERGIES Allergies Allergen Reactions [place] Flavor [[place] Oil] Latex Hives, Itching, Rash and Swelling [...] nursing note reviewed. Exam conducted with a crm dynamics developer present. Vitals: Estimated body mass index [...] Hilton DO documented in this encounter [facility] 04-27-2024 History of Present illness [...] mg, Oral, Daily ALLERGIES Allergies Allergen Reactions [place] Flavor [[place] Oil] Latex Hives, Itching, Rash and Swelling [...] nursing note reviewed. Exam conducted with a crm dynamics developer present. Vitals: Estimated body mass index [...] IVF . Patient to also have [facility] referral for IVF and Level II [...] undercooked meat, and stay away from [facility] [place]. Patient has been consulted regarding any further do's and don'ts of . Patient voiced understanding and all questions and concerns were answered. Orders Placed This Encounter Procedures POCT urinalysis dipstick manually resulted Follow Up: Patient is to return in 4 weeks for routine OB appointment. Documented by Esperanza Peter LPN on behalf of: Immanuel Hilton DO documented in this encounter [facility] 03-27-2024 History of Present illness [...] Procedure Laterality Date TONSILLECTOMY Allergies Allergen Reactions [place] Flavor [[place] Oil] Latex Hives, Itching, Rash and Swelling [...] undercooked meat, and stay away from [facility] [place]. Patient has also been advised to not [...] Jo-Ann Motta LPN documented in this encounter [facility] Evaluation note No assessment inform ation available [facility] Work Phone: Evaluation note Diagnosis Well [...] [facility] Diagnosis 35 weeks gestation of Third trimester state, incidental documented in this encounter [facility]InstructionsNot on filedocumented in this encounterProMedica Health SystemInstructionsNot on filedocumented in this encounterProMediaz Health SystemInstructions* Attachments The following attachments cannot be sent through Care Everywhere. * Preeclampsia (Polish) [facility] Summary Purpose Family History Relationship Condition [...] section and content) DATE CREATED AUTHOR 03/06/2019 [facility] DATE CREATED AUTHOR AUTHOR'S ORGANIZ ATION 12/21/2021 [facility] DATE CREATED AUTHOR AUTHOR'S ORGANIZ ATION 12/01/2022 [facility] DATE CREATED AUTHOR AUTHOR'S ORGANIZ ATION 06/17/2024 [facility] DATE CREATED AUTHOR AUTHOR'S ORGANIZ ATION 09/09/2024 [facility] Care Teams (unrecognized sec tion and content) Team Status: Active Member Role Status Dates Damon Stover DO Primary Care Provider Active Team Status: Inactive Member Role Status Dates Damon Stover DO Primary Care Provider Active Start: January 02, 2024 End: January 02, 2024 Teresa Sanchez APRN Attending Provider Active S tart: January 02, 2024 End: January 02, 2024 Forest Logistics Manager Relationship Specialty Start Date End Date Akila Grant MD [address] [place] [id number] PCP - General Family Medicine 11/27/23 Forest Logistics Manager Relationship Specialty Start Date End Date Akila Grant MD [address] [facility] [place] [address] PCP - General Family Medicine 11/27/23 Forest Logistics Manager Relationship Specialty Start Date End Date Akila Grant MD [address] [facility] [place] [address] PCP - General Family Medicine 11/27/23 Forest Logistics Manager Relationship Specialty Start Date End Date Akila Grant MD [address] [place] [address] PCP - General Family Medicine 11/27/23 Forest Logistics Manager Relationship Specialty Start Date End Date Akila Grant MD [address] [facility] [place] [address] PCP - General Family Medicine 11/27/23 Forest Logistics Manager Relationship Specialty Start Date End Date Akila Grant MD [address] [facility] [place] [address] PCP - General Family Medicine 11/27/23 Forest Logistics Manager Relationship Specialty Start Date End Date Akila Grant MD [address] [facility] [place] [address] PCP - General Family Medicine 11/27/23 Forest Logistics Manager Relationship Specialty Start Date End Date Akila Grant MD [address] [facility] [place] [address] PCP - General Family Medicine 11/27/23 Forest Logistics Manager Relationship Specialty Start Date End Date Akila Grant MD [address] [place] [address] PCP - General Family Medicine 11/27/23 Forest Logistics Manager Relationship Specialty Start Date End Date Akila Grant MD [address] [place] [address] PCP - General Family Medicine 11/27/23 [employer] Relationship Specialty Start Date End Date Akila Grant MD [address] [facility] [place] [address] PCP - General Family Medicine 11/27/23 [employer] Relationship Specialty Start Date End Date Akila Grant MD [address] [facility] [place] [address] PCP - General Family Medicine 11/27/23 [employer] Relationship Specialty Start Date End Date Akila Grant MD [address] [facility] [place] [address] PCP - General Family Medicine 11/27/23 [employer] Relationship Specialty Start Date End Date Akila Grant MD [address] [place] [place] [address] PCP - General Family Medicine 11/27/23 [employer] Relationship Specialty Start Date End Date Akila Grant MD [address] [place] [place] [address] PCP - General Family Medicine 11/27/23 [employer] Relationship Specialty Start Date End Date Akila Grant MD [address] [place] [address] PCP - General Family Medicine 11/27/23 Team Status: Active Member Role Status Dates Damon Stover , DO Primary Care Provider Active Start: June 29, 2024 Chad Murcia , DO Attending Provider Active Sta rt: June 29, 2024 Team Status: Active Member Role Status Dates Damon Stover , DO Primary Care Provider Active Start: August 05, 2024 mImanuel Hilton , DO Attending Provider Active Start : August 05, 2024 Team Status: Active Member Role Status Dates Damon Stover , DO Primary Care Provider Active Start: September 09, 2024 Immanuel Hilton , DO Attending Provider [...] BE BASED ON THE PRIMARY CLINICAL RECORDS. [facility]. provides no warranty or guarantee of the accuracy or completeness of information in this document.
[2024-09-23 11:13] VITALS: BP 130/87; PULSE 90
== END 2024-09-23 11:40 | disposition home or self-care (01) ==
LOC: US 00:11 → FBC 10:49
PROVIDERS: PCP Family Medicine; Visit Provider Obstetrics & Gynecology
DX: Z31.83 Encounter for assisted reproductive fertility procedure cycle (principal); O24.419 Gestational diabetes mellitus in pregnancy, unspecified control; Z3A.35 35 weeks gestation of pregnancy
CPT/HCPCS: 76818

== ENCOUNTER 2024-09-26 00:24 | Outpatient (OUT) | payer OTHER, BC, SELFPAY ==
--- OUTSIDE RECORDS SUMMARY | 2024-09-26 00:28 | XMS_ITS | CCD ---
Author Organization [facility] Care Team Providers Care Business Resiliency Manager Name Role Phone YOBANI ., DR [...] Unavailable Akila Grant MD Primary Care Provider [phone] IMMANUEL HILTON Referring Unavailable CELE RODRIGUEZ Attending Unavailable IMMANUEL HILTON R Referring Unavailable Unavailable Primary Care Provider Unavailabl IMMANUEL Cross Referring Unavailable IMMANUEL HILTON Attending Unavailable YOBANI, IMMANUEL Attending Unavailable YOBANI, IMMANUEL Attending Unavailable IMMANUEL HITLON Attending Unavailable JOHNNY FERNANDEZ Attending Unavailable IMMANUEL HILTON Attending Unavailable YOBANI, IMMANUEL Attending Unavailable YOBANI, IMMANUEL Attending Unavailable YOBANI, IMMANUEL Attending Unavailable YOBANI, IMMANUEL Attending Unavailable NON STAFF Attending Unavailable NON STAFF Admitting Unavailable Allergies Allergy Classification Reported Allergen(s) Allergy Type Date of Onset Reaction(s) Facility (3 sources) Latex Drug allergy (disorder) 0 hives [facility] (1 source) orange flavor Drug allergy (disorder) 0 [facility] (7 sources) [place] - fruit; Translations: [ORANGE] 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 4 anaphylaxis [facility] (20 sources) Latex 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 4 Hives, Itching, Rash, Swelling [facility] (20 sources) orange allergenic extract Drug Allergy 4 [facility] Work Phone: (1 source) natural latex rubber; Translations: [LATEX, NATURAL RUBBER] Propensity to adverse reactions to drug (disorder) 4 [facility] (1 source) Latex Drug allergy (disorder) 4 [facility] Medications Current Medications Medication Drug Class(es) [...] 2024 11:00pm aspirin 81 mg chewable tablet (17 sources) Platelet Aggregation Inhibitor, Nonsteroidal Anti-inflammatory Drug [...] MCG/0.5ML injection 11/26/2023 03/27/2024 Discontinued Continuous Glucose Business Planning Analyst (FreeStyle Jenise 3 Elton) device (17 sources) Start: 08-20-2024 Continuous Glucose Business Planning Analyst (FreeStyle Jenise 3 Elton) device Indications: Gestational diabetes mellitus (GDM), antepartum, gestational diabetes method of control unspecified , Third trimester 1 each every 14 (fourteen) days 1 each 3 08/20/2024 Active Continuous Glucose Sensor (FreeStyle Jenise 3 Sensor) misc (17 sources) Start: 08-20-2024 Continuous Glucose Sensor (FreeStyle Jenise 3 Sensor) [facility] [place] Indications: Gestational diabetes mellitus (GDM), antepartum, gestational [...] tablet (3 sources) Start: 12-31-19 End: 03-27-20 24 take 1 tablet by mouth once daily Norethindrone Acetate 5 mg tablet Active 5 MG PO Daily January 01, 2024 11:00pm ondansetron 4 mg disintegrating oral tablet (10 sources) Serotonin-3 Receptor Antagonist Start: 04-13-20 End: [...] Facility US OB BPP W NON-STRESS on 09-23-2024 [place] [address] Ultrasound Report Signed Patient: AMY MARIO MR#: [id number] : 2000 Acct:[id number] Age/Sex: 24 / F ADM Date: 09/23/24 Loc: US Attending Dr: Immanuel Hilton D.O. Ordering Physician: Immanuel Hilton D.O. Date of Service: 09/23/24 Procedure(s): US OB BPP w non-stress Accession Number(s): [id number] cc: Akila Grant M.D.; Immanuel Hilton D.O. [place] [id number] Patient Name: AMY MARIO MRN: [facility]:[id number] date: 2000 Sex: F Assigned Patient Location: [facility] Current Patient Location: Accession/Order Number: [id number] Exam Date: 09/23/2024 12:21 Report Date: 09/23/2024 12:23 At the request of: IMMANUEL HILTON DO Procedure: US OB BPP w non-stress BIOPHYSICAL PROFILE: CLINICAL INFORMATION: Gestational diabetes mellitus O24.419 COMPARISON: 09/16/2024 There is a single live intrauterine gestation in cephalic presentation. The reported gestational age is 35 weeks 6 days. The heart rate [id number] beats per minute. FINDINGS: TONE: 1 or [...] greater than 2 cm [Y] 2/2 CAPRICE: 10.6 cm . This is in low-normal range. Total score: 8/8 US/US OB BPP w non-stress IMPRESSION: NORMAL BIOPHYSICAL PROFILE. Impression dictated by: Chika Holden M.D.09/23/2024 12:23 PM Dictation Location: [place] [address] Electronically authenticated by: [id number] Y Date: 09/23/2024 12:23 Dictated By: Chika Holden M.D. Signed By: 09/23/24 1226 DD/ 1223 TD/TT: Technical Mgr: [facility] Radiology, Radiologist, MD - 09/23/2024 [place] [address] Ultrasound Report Signed Patient: AMY MARIO MR#: [id number] : 2000 Acct:[id number] Age/Sex: 24 / F ADM Date: 09/23/24 Loc: US Attending Dr: Immanuel Hilton D.O. Ordering Physician: Immanuel Hilton D.O. Date of Service: 09/23/24 Procedure(s): US OB BPP w non-stress Accession Number(s): [id number] cc: Akila Grant M.D.; Immanuel Hilton D.O. The [address] [phone] Patient Name: AMY MARIO MRN: [facility]:[id number] date: 2000 Sex: F Assigned Patient Location: [facility] Current Patient Location: Accession/Order Number: [id number] Exam Date: 09/23/2024 12:21 Report Date: 09/23/2024 12:23 At the request of: IMMANUEL HILTON DO Procedure: US OB BPP w non-stress BIOPHYSICAL PROFILE: CLINICAL INFORMATION: Gestational diabetes mellitus O24.419 COMPARISON: 09/16/2024 There is a single live intrauterine gestation in cephalic presentation. The reported gestational age is 35 weeks 6 days. The heart rate [id number] beats per minute. FINDINGS: TONE: 1 or [...] greater than 2 cm [Y] 2/2 CAPRICE: 10.6 cm . This is in low-normal range. Total score: 8 US/US OB BPP w non-stress IMPRESSION: NORMAL BIOPHYSICAL PROFILE. Impression dictated by: Chika Holden M.D.09/23/2024 12:23 PM Dictation Location: [employer] Electronically authenticated by: [id number] Y Date: 09/23/2024 12:23 Dictated By: Chika Holden M.D. Signed By: 09/23/24 1226 DD/ 1223 TD/TT: Technical Mgr: [facility] Radiology Study observation (narrative) [facility] US OB BPP W NON-STRESS Ordered By: Radiologist Radiology on 09-23-2024 [facility] Work Phone: [facility] TOTAL PROTEIN 24 HOUR UR INEon 09-22-2024 Interpretation and review of laboratory results Abnormal [facility] Protein (U) [Mass/Vol] 23.9 mg/dL High [facility] - 11.9 mg/dL [facility] TOTAL PROTEIN 24 HOUR URINE 239 High [facility] TOTAL VOLUME 24 HOUR URINE 1000 mL/24hr [facility] Urinalysis macro (dipstick) panel (U)on 09-22-2024 Bilirubin, UA Positive Negative - 4(70) +++ mg/dL [facility] Comment on above: small Blood, UA Positive Negative - 50 Jimy/mcL [facility] Comment on above: trace-intact Clarity, UA Clear [facility] Color, UA Cynthia [facility] Glucose, UA Negative Negative - 2000(110) ++++ mg/dL [facility] Interpretation and review of laboratory results Abnormal [facility] Ketones, UA Negative Negative - 160(16) ++++ mg/dL [facility] Leukocytes, UA Positive Negative - 500+++ Mychal/mcL [facility] Comment on above: small Nitrite, UA Negative Negative - Positive [facility] pH, UA 6 5 - 9 [facility] Protein, UA Positive Negative - 1999(20) ++++ mg/dL [facility] Comment on above: 30 Spec Grav, UA 1.02 1 - 1.03 [facility] Urobilinogen, UA 1.0 0.2 - 12 mg/dL [facility] Laboratory - Chemistry and C hemistry - challengeon 09-20-2024 Bilirubin Ql (U) SMALL Abnormal NEGATIVE [facility] Glucose (U) [Mass/Vol] Negative NEGATIVE [facility] Ketones Ql (U) >=80 mg/dL Abnormal NEGATIVE [facility] pH (U) 5.5 [pH] 5.0-9.0 [facility] Specific gravity (U) [Rel density] >=1.030 Abnormal 1.005-1.025 [facility] Urobilinogen Qn (U) 0.2 {Brian'U}/dL 0.2-1.0 [facility] Laboratory - Specimen inform ationon 09-20-2024 Appearance (U) SL CLOUDY CLEAR [facility] Color (U) YELLOW YELLOW [facility] Laboratory - Urinalysison Leukocyte esterase Test strip Ql (U) TRACE Abnormal NEGATIVE [facility] Mucus Ql (Urine sed) LARGE Abnormal NONE SEEN [facility] Nitrite Ql (U) Negative NEGATIVE [facility] Protein Ql (U) 30 mg/dL Abnormal NEG/TRACE [facility] No Panel Informationon 09-20 Urine Bacteria SMALL #/HPF Abnormal NONE SEEN [facility] Urine Culture Reflexed YES-[facility] Urine Microscopic Review YES [facility] Urine Occult Blood LARGE Abnormal NEGATIVE [facility] Urine Other Casts NONE SEEN #/LPF NONE SEEN [facility] Urine Other Crystals None Seen #/HPF None Seen [facility] Urine RBC 0-2 #/HPF 0-2 [facility] Urine Squamous Epithelial Cells FEW #/LPF Abnormal NONE/RARE [facility] Urine WBC 0-2 #/HPF Abnormal NONE SEEN [facility] Urine Cultureon 09-20-2024 Bacteria identified Cx Nom (U) Urine Culture Results >100,000 col/ml Mixed Bacterial Skin Contaminants 2 Days PERFORMED BY: [place] [address] PATHOLOGIST FREEZING MACHINE OPERATOR SHELLIE PALOMINO M.D. [place] [facility] Comment on above: Performed By: #### C UU #### [address] US OB BPP W NON-STRESS on 09-16-2024 [place] [address] Ultrasound Report Signed Patient: AMY MARIO MR#: [id number] : 2000 Acct:[id number] Age/Sex: 24 / F ADM Date: 09/16/24 Loc: [facility] 250-[address]: Immanuel Hilton D.O. Ordering Physician: Immanuel Hilton D.O. Date of Service: 09/16/24 Procedure(s): US OB BPP w non-stress Accession Number(s): [id number] cc: Akila Grant M.D.; Immanuel Hilton D.O. The [place] [phone] Patient Name: AMY MARIO MRN: [id number]:[id number] date: 2000 Sex: F Assigned Patient Location: [facility] Current Patient Location: [facility] Accession/Order Number: [id number] Exam Date: 09/16/2024 09:04 Report Date: 09/16/2024 [...] Chika Holden M.D.09/16/2024 9:06 AM Dictation Location: [employer] Electronically authenticated by: [id number] Y Date: 09/16/2024 09:06 Dictated By: Chika Holden M.D. Signed By: 09/16/24908 DD/ 5 TD/TT: Technical Mgr: [facility] Radiology, Radiologist, - 09/16/2024 [place] [address] Ultrasound Report Signed Patient: AMY MARIO MR#: [id number] : 2000 Acct:[id number] Age/Sex: 24 / F ADM Date: 09/16/24 Loc: [place] [address]- Attending Dr: Immanuel Hilton D.O. Ordering Physician: Immanuel Hilton D.O. Date of Service: 09/16/24 Procedure(s): US OB BPP w non-stress Accession Number(s): [id number] cc: Akila Grant M.D.; Immanuel Hilton D.O. The [place] [phone] Patient Name: AMY MARIO MRN: [facility]:[id number] date: 2000 Sex: F Assigned Patient Location: [facility] Current Patient Location: [facility] Accession/Order Number: [id number] Exam Date: 09/16/2024 09:04 Report Date: 09/16/2024 [...] 34 weeks 4 days. The heart rate [id number] beats per minute. FINDINGS: TONE: 1 or [...] Chika Holden M.D.09/16/2024 9:06 AM Dictation Location: [place] [address] Electronically authenticated by: [id number] Y Date: 09/16/2024 09:06 Dictated By: Chika Holden M.D. Signed By: 09/16/24908 DD/ 5 TD/TT: Technical Mgr: [facility] Radiology Study observation (narrative) [facility] US OB BPP W NON-STRESS Ordered By: Radiologist Radiology on 09-16-2024 [facility] Work Phone: US OB GROWTHon 09-16-2024 [place] [address] Ultrasound Report Signed Patient: AMY MARIO MR#: [id number] : 2000 Acct:[id number] Age/Sex: 24 / F ADM Date: 09/16/24 Loc: [facility] 250-[address]: Immanuel Hilton D.O. Ordering Physician: Immanuel Hilton D.O. Date of Service: 09/16/24 Procedure(s): US OB growth Accession Number(s): [id number] cc: Akila Grant M.D.; Immanuel Hilton D.O. The [place] [phone] Patient Name: AMY MARIO MRN: [facility]:[id number] date: 2000 Sex: F Assigned Patient Location: [facility] Current Patient Location: [facility] Accession/Order Number: [id number] Exam Date: 09/16/2024 09:07 Report Date: 09/16/2024 [...] Chika Holden M.D.09/16/2024 9:15 AM Dictation Location: [place] [address] Electronically authenticated by: [id number] Y Date: 09/16/2024 09:15 Dictated By: Chika Holden M.D. Signed By: 09/16/24917 DD/ 4 TD/TT: Technical Mgr: [facility] Radiology, Radiologist, - 09/16/2024 [place] [address] Ultrasound Report Signed Patient: AMY MARIO MR#: [id number] : 2000 Acct:[id number] Age/Sex: 24 / F ADM Date: 09/16/24 Loc: [facility] 250-[address]: Immanuel Hilton D.O. Ordering Physician: Immanuel Hilton D.O. Date of Service: 09/16/24 Procedure(s): US OB growth Accession Number(s): [id number] cc: Akila Grant M.D.; Immanuel Hilton D.O. [place] [address] Patient Name: AMY MARIO MRN: [facility]:[id number] date: 2000 Sex: F Assigned Patient Location: [facility] Current Patient Location: [facility] Accession/Order Number: [id number] Exam Date: 09/16/2024 09:07 Report Date: 09/16/2024 [...] Chika Holden M.D.09/16/2024 9:15 AM Dictation Location: [place] [address] Electronically authenticated by: [id number] Y Date: 09/16/2024 09:15 Dictated By: Chika Holden M.D. Signed By: 09/16/24917 DD/ 4 TD/TT: Technical Mgr: [facility] Radiology Study observation (narrative) [facility] US OB GROWTHOrdered By: Kaye ologyamini Radiology on 09-16-2024 [facility] Work Phone: [facility] TOTAL PROTEIN 24 HOUR UR INEon 09-12-2024 Interpretation and review of laboratory results Abnormal [facility] Protein (U) [Mass/Vol] 29.7 mg/dL High NINF - 11.9 mg/dL [facility] TB[facility] TOTAL PROTEIN 24 HOUR URINE 148.5 NINF [facility] TOTAL VOLUME 24 HOUR URINE 500 mL/24hr [facility] ALL CBC WITH AUTO DIFFon BASOPHILS ABSOLUTE AUTO 0 [facility] Basophils/100 WBC (Bld) 0.1 % Low 0.2 - 2.0 % [facility] Eosinophils/100 WBC (Bld) 0.7 % Low 0.9 - 7.0 % [facility] Erythrocyte distribution width (RBC) [Ratio] 13.4 % 11.0 - 15.0 % [facility] Hematocrit (Bld) [Volume fraction] 32.2 % Low 36.0 - 48.0 % [facility] Hemoglobin (Bld) [Mass/Vol] 10.6 g/dL Low 12.0 - 16.0 g/dL [facility] IMMATURE GRANULOCYTES ABS AUTO 0.06 High [facility] Immature granulocytes/100 WBC (Bld) 0.9 % High 0.0 - 0.5 % [facility] Interpretation and review of laboratory results Abnormal [facility] LYMPHOCYTES ABSOLUTE AUTO 1.4 [facility] Lymphocytes/100 WBC (Bld) 19.7 % Low 20.5 - 60.0 % [facility] MCH (RBC) [Entitic mass] 28.3 pg 26.7 - 34.0 pg [facility] MCHC (RBC) [Mass/Vol] 32.9 g/dL 29.9 - 35.2 g/dL [facility] MCV (RBC) [Entitic vol] 85.9 fL 81.0 - 99.0 fL [facility] MONOCYTES ABSOLUTE AUTO 0.5 [facility] Monocytes/100 WBC (Bld) 7.4 % 1.7 - 12.0 % [facility] NEUTROPHILS ABSOLUTE AUTO 4.9 [facility] Neutrophils/100 WBC (Bld) 71.2 % 43.0 - 75.0 % [facility] Platelet mean volume (Bld) [Entitic vol] 10.4 fL 9.5 - 13.5 fL [facility] EO # 0.1 [facility] PLT 391 [facility] RBC 3.75 Low [facility] WBC 6.9 [facility] Activated partial thrombopla stin time (aPTT) in platelet poor plasma by coagulation aon 09-09-2024 aPTT Coag (PPP) [Time] Activated partial thromboplastin time (aPTT) in platelet poor plasma by coagulation a Low 22.3-36.2 [facility] Basophils Auto (Bld) [#/Vol] on 09-09-2024 Basophils (Bld) [#/Vol] Automated basophil count 0.0-0.1 [facility] Basophils/100 WBC Auto (Bld) on 09-09-2024 Basophils/100 WBC (Bld) Automated basophil % Low 0.2-2.0 [facility] Eosinophils/100 WBC Auto (Bl d)on 09-09-2024 Eosinophils/100 WBC (Bld) Automated eosinophil % Low 0.9-7.0 [facility] Erythrocyte distribution wid th Auto (RBC) [Ratio]on 09-09-2024 Erythrocyte distribution width (RBC) [Ratio] Erythrocyte distribution width [Ratio] by Automated count 11.0-15.0 [facility] Estimated glomerular filtrat ion rate (GFR) non- Americanon 09-09-2024 GFR/1.73 sq M.predicted among non-blacks MDRD (S/P/Bld) [Vol rate/Area] Estimated glomerular filtration rate (GFR) non- >=60 mL/min/1.73m 2 [facility] Hematocrit Auto (Bld) [Volum e fraction]on 09-09-2024 Hematocrit (Bld) [Volume fraction] Hematocrit [Volume Fraction] of Blood by Automated count Low 36.0-48.0 [facility] Hemoglobin [Mass/volume] in Bloodon 09-09-2024 Hemoglobin (Bld) [Mass/Vol] Hemoglobin [Mass/volume] in Blood Low 12.0-16.0 [facility] INR in Platelet poor plasma by Coagulation assayon 09-09-2024 INR Coag (PPP) [Relative time] INR in Platelet poor plasma by Coagulation assay [facility] Comment on above: DESIRED INR:2.0-3.0 CONDITIONS NOT LISTED BELOW2.5-3.5 FOR PROSTHETIC HEART VALVE REPLACEMENT2.5-3.5 RECURRENT THROMBOSIS Laboratory - Chemistry and C hemistry - challengeon 09-09-2024 AST [Catalytic activity/Vol] 14 U/L Low 15-37 [facility] Creatinine [Mass/Vol] 0.56 mg/dL 0.55-1.02 [facility] GFR/1.73 sq M.predicted MDRD (S/P/Bld) [Vol rate/Area] mL/min/{1.73_m2} >=60 mL/min/1.73m 2 [facility] LDH [Catalytic activity/Vol] 296 U/L High 81-234 [facility] Urate [Mass/Vol] 5.4 mg/dL 2.6-6.0 [facility] s [facility] Urea nitrogen [Mass/Vol] 5.0 mg/dL Low 7.0-18.0 [facility] Laboratory - Hematology and Cell countson 09-09-2024 Immature granulocytes/100 WBC (Bld) 0.9 % High 0.0-0.5 [facility] Leukocytes [#/volume] correc lisha for nucleated erythrocytes in Blood by Automated counon 09-09-2024 WBC corrected for nucl RBC Auto (Bld) [#/Vol] Leukocytes [#/volume] corrected for nucleated erythrocytes in Blood by Automated coun 4.0-11.0 [facility] Lymphocytes Auto (Bld) [#/Vo l]on 09-09-2024 Lymphocytes (Bld) [#/Vol] Lymphocytes [#/volume] in Blood by Automated count 1.2-3.8 [facility] Lymphocytes/100 WBC Auto (Bl d)on 09-09-2024 Lymphocytes/100 WBC (Bld) Lymphocytes/100 leukocytes in Blood by Automated count Low 20.5-60.0 [facility] MCH Auto (RBC) [Entitic mass ]on 09-09-2024 MCH (RBC) [Entitic mass] MCH [Entitic mass] by Automated count 26.7-34.0 [facility] MCHC Auto (RBC) [Mass/Vol]on 09-09-2024 MCHC (RBC) [Mass/Vol] MCHC [Mass/volume] by Automated count 29.9-35.2 [facility] MCV Auto (RBC) [Entitic vol] on 09-09-2024 MCV (RBC) [Entitic vol] MCV [Entitic volume] by Automated count 81.0-99.0 [facility] Monocytes Auto (Bld) [#/Vol] on 09-09-2024 Monocytes (Bld) [#/Vol] Automated blood monocyte count 0.3-0.8 [facility] Monocytes/100 WBC Auto (Bld) on 09-09-2024 Monocytes/100 WBC (Bld) Automated monocyte % 1.7-12.0 [facility] Neutrophils Auto (Bld) [#/Vo l]on 09-09-2024 Neutrophils (Bld) [#/Vol] Neutrophils [#/volume] in Blood by Automated count 1.4-6.5 [facility] Neutrophils/100 WBC Auto (Bl d)on 09-09-2024 Neutrophils/100 WBC (Bld) Automated neutrophil % 43.0-75.0 [facility] No Panel Informationon 09-09 Eosinophils # (Auto) 0.1 10 3/uL 0.0-0.7 [facility] Immature Granulocyte # (Auto) 0.06 10 3/uL High 0.00-0.03 [facility] Platelet mean volume Auto (B ld) [Entitic vol]on 09-09-2024 Platelet mean volume (Bld) [Entitic vol] Platelet mean volume [Entitic volume] in Blood by Automated count 9.5-13.5 [facility] Platelets Auto (Bld) [#/Vol] on 09-09-2024 Platelets (Bld) [#/Vol] Platelets [#/volume] in Blood by Automated count 150-450 [facility] Prothrombin time (PT)on 08-29 PT Coag (PPP) [Time] Prothrombin time (PT) 9.0-11.6 [facility] RBC Auto (Bld) [#/Vol]on RBC (Bld) [#/Vol] Erythrocytes [#/volume] in Blood by Automated count Low 4.20-5.40 [facility] US OB BPP W NON-STRESS on 09-09-2024 [place] [id number] Ultrasound Report Signed Patient: AMY MARIO MR#: [id number] : 2000 Acct:[id number] Age/Sex: 24 / F ADM Date: 09/09/24 Loc: US Attending Dr: Immanuel Hilton D.O. Ordering Physician: Immanuel Hilton D.O. Date of Service: 09/09/24 Procedure(s): US OB BPP w non-stress Accession Number(s): [id number] cc: Akila Grant M.D.; Immanuel Hilton D.O. [place] [phone] Patient Name: AMY MARIO MRN: [id number] date: 2000 Sex: F Assigned Patient Location: [facility] Current Patient Location: ED.MAIN Accession/Order Number: [id number] Exam Date: 09/09/2024 07:58 Report Date: 09/09/2024 [...] Signed By: 09/09/24 1132 DD/ 1130 TD/TT: Technical Mgr: [facility] Radiology, Radiologist, - 09/09/2024 [place] [address] Ultrasound Report Signed Patient: AMY MARIO MR#: [id number] : 2000 Acct:[id number] Age/Sex: 24 / F ADM Date: 09/09/24 Loc: US Attending Dr: Immanuel Hilton D.O. Ordering Physician: Immanuel Hilton D.O. Date of Service: 09/09/24 Procedure(s): US OB BPP w non-stress Accession Number(s): [id number] cc: Akila Grant M.D.; Immanuel Hilton D.O. The [place] [phone] Patient Name: AMY MARIO MRN: [facility]:[id number] date: 2000 Sex: F Assigned Patient Location: [facility] Current Patient Location: ED.MAIN Accession/Order Number: [id number] Exam Date: 09/09/2024 07:58 Report Date: 09/09/2024 [...] Signed By: 09/09/24 1132 DD/ 1130 TD/TT: Technical Mgr: [facility] Radiology Study observation (narrative) [facility] US OB BPP W NON-STRESS Ordered By: Radiologist Radiology on 09-09-2024 [facility] Work Phone: Urinalysis macro (dipstick) panel (U)on 09-08-2024 Bilirubin, UA Trace Negative - 4(70) +++ mg/dL [facility] Blood, UA Positive Negative - 50 Jimy/mcL [facility] Clarity, UA Clear [facility] Color, UA Yellow [facility] Glucose, UA Negative Negative - 2000(110) ++++ mg/dL [facility] Interpretation and review of laboratory results Abnormal [facility] Ketones, UA Negative Negative - 160(16) ++++ mg/dL [facility] Leukocytes, UA Positive Negative - 500+++ Mychal/mcL [facility] Nitrite, UA Negative Negative - Positive [facility] pH, UA 6 5 - 9 [facility] Protein, UA Positive Negative - 1999(20) ++++ mg/dL [facility] Spec Grav, UA 1.025 1 - 1.03 [facility] Urobilinogen, UA 0.2 0.2 - 12 mg/dL [facility] US OB BPP W NON-STRESS on 09-02-2024 [place] [address] Ultrasound Report Signed Patient: AMY MARIO MR#: [id number] : 2000 Acct:[id number] Age/Sex: 24 / F ADM Date: 09/02/24 Loc: US Attending Dr: Immanuel Hilton D.O. Ordering Physician: Immanuel Hilton D.O. Date of Service: 09/02/24 Procedure(s): US OB BPP w non-stress Accession Number(s): [id number] cc: Akila Grant M.D.; Immanuel Hilton D.O. [address] [address] Patient Name: AMY MARIO MRN: [facility]:[id number] date: 2000 Sex: F Assigned Patient Location: [facility] Current Patient Location: Accession/Order Number: [id number] Exam Date: 09/02/2024 08:03 Report Date: 09/02/2024 [...] M.D. Signed By: 09/02/24924 DD/ 1 TD/TT: Technical Mgr: [facility] Radiology, Radiologist, MD - 09/02/2024 [place] [address] Ultrasound Report Signed Patient: AMY MARIO MR#: [id number] : 2000 Acct:[id number] Age/Sex: 24 / F ADM Date: 09/02/24 Loc: US Attending Dr: Immanuel Hilton D.O. Ordering Physician: Immanuel Hilton D.O. Date of Service: 09/02/24 Procedure(s): US OB BPP w non-stress Accession Number(s): [id number] cc: Akila Grant M.D.; Immanuel Hilton D.O. The [address] [address] Patient Name: AMY MARIO MRN: [facility]:[id number] date: 2000 Sex: F Assigned Patient Location: [facility] Current Patient Location: Accession/Order Number: [id number] Exam Date: 09/02/2024 08:03 Report Date: 09/02/2024 [...] M.D. Signed By: 09/02/24924 DD/ 1 TD/TT: Technical Mgr: [facility] Radiology Study observation (narrative) [facility] US OB BPP W NON-STRESS Ordered By: Radiologist Radiology on 09-02-2024 [facility] Work Phone: US OB FOLLOW [...] 2164 gm / 4 lbs, 12 oz (7446-4366 gm) Hadlock Normal: 1953 gm (3784-1169 mg) [place]lock 80% for 32.0 wks (GA [...] report is generated using voice recognition reporting (iCrimefighter). On occasion [employer] erroneously drops words from the report or [...] UA Positive Negative - 4(70) +++ mg/dL [facility] Comment on above: small Blood, UA Negative Negative - 50 Jimy/mcL [facility] Clarity, UA Clear [facility] Color, UA Yellow [facility] Glucose, UA Positive Negative - 2000(110) ++++ mg/dL [facility] Comment on above: 100 Interpretation and review of laboratory results Abnormal [facility] Ketones, UA Positive Negative - 160(16) ++++ mg/dL [facility] Comment on above: trace Leukocytes, UA Positive Negative - 500+++ Mychal/mcL [facility] Comment on above: large Nitrite, UA Negative Negative - Positive [facility] pH, UA 6.5 5 - 9 [facility] Protein, UA Positive Negative - 2000(20) ++++ mg/dL [facility] Comment on above: 30 Spec Grav, UA 1.03 1 - 1.03 [facility] Urobilinogen, UA 0.2 0.2 - 12 mg/dL [facility] US OB BPP W NON-STRESS on 08-26-[address] [address] Ultrasound Report Signed Patient: AMY MARIO MR#: [id number] : 2000 Acct:[id number] Age/Sex: 24 / F ADM Date: 08/26/24 Loc: [facility] 251-[address]: Immanuel Hilton D.O. Ordering Physician: Immanuel Hilton D.O. Date of Service: 08/26/24 Procedure(s): US OB BPP w non-stress Accession Number(s): [id number] cc: Akila Grant M.D.; Immanuel Hilton D.O. The [place] [id number] Patient Name: AMY MARIO MRN: [facility]:[id number] date: 2000 Sex: F Assigned Patient Location: [facility] Current Patient Location: [facility] Accession/Order Number: [id number] Exam Date: 08/26/2024 08:00 Report Date: 08/26/2024 [...] Signed By: 08/26/24 0858 DD/ 0856 TD/TT: Technical Mgr: [facility] Radiology, Radiologist, MD - 08/26/2024 [place] [address] Ultrasound Report Signed Patient: AMY MARIO MR#: [id number] : 2000 Acct:[id number] Age/Sex: 24 / F ADM Date: 08/26/24 Loc: [facility] 251-[address]: Immanuel Hilton D.O. Ordering Physician: Immanuel Hilton D.O. Date of Service: 08/26/24 Procedure(s): US OB BPP w non-stress Accession Number(s): [id number] cc: Akila Grant M.D.; Immanuel Hilton D.O. [place] [address] Patient Name: AMY MARIO MRN: [facility]:[id number] date: 2000 Sex: F Assigned Patient Location: [facility] Current Patient Location: [facility] Accession/Order Number: [id number] Exam Date: 08/26/2024 08:00 Report Date: 08/26/2024 [...] LUCHO MIXON Date: 08/26/2024 08:56 Dictated By: uLcho Mixon M.D. Signed By: 08/26/2458 DD/ TD/TT: Technical Mgr: [facility] Radiology Study observation (narrative) [facility] US OB BPP W NON-STRESS Ordered By: Radiologist Radiology on 08-26-2024 [facility] Work Phone: Urinalysis macro (dipstick) panel (U)on 08-12-2024 Bilirubin, UA Negative Negative - 4(70) +++ mg/dL [facility] Blood, UA Negative Negative - 50 Jmiy/mcL [facility] Clarity, UA Clear [facility] Color, UA Yellow [facility] Glucose, UA Negative Negative - 2000(110) ++++ mg/dL [facility] Interpretation and review of laboratory results Abnormal [facility] Ketones, UA Positive Negative - 160(16) ++++ mg/dL [facility] Comment on above: trace Leukocytes, UA Positive Negative - 500+++ Mychal/mcL [facility] Comment on above: large Nitrite, UA Negative Negative - Positive [facility] pH, UA 5.5 5 - 9 [facility] Protein, UA Trace Negative - 2000(20) ++++ mg/dL [facility] Spec Grav, UA 1.03 1 - 1.03 [facility] Urobilinogen, UA 0.2 0.2 - 12 mg/dL [facility] ALL CBC WITH AUTO DIFFon BASOPHILS ABSOLUTE AUTO 0 [facility] Basophils/100 WBC (Bld) 0.3 % 0.2 - 2.0 % [facility] Eosinophils/100 WBC (Bld) 1 % 0.9 - 7.0 % [facility] Erythrocyte distribution width (RBC) [Ratio] 13.2 % 11.0 - 15.0 % [facility] Hematocrit (Bld) [Volume fraction] 32.6 % Low 36.0 - 48.0 % [facility] Hemoglobin (Bld) [Mass/Vol] 11.3 g/dL Low 12.0 - 16.0 g/dL [facility] IMMATURE GRANULOCYTES ABS AUTO 0.07 High [facility] Immature granulocytes/100 WBC (Bld) 0.9 % High 0.0 - 0.5 % [facility] Interpretation and review of laboratory results Abnormal [facility] LYMPHOCYTES ABSOLUTE AUTO 1.6 [facility] Lymphocytes/100 WBC (Bld) 19.6 % Low 20.5 - 60.0 % [facility] MCH (RBC) [Entitic mass] 30.4 pg 26.7 - 34.0 pg [facility] MCHC (RBC) [Mass/Vol] 34.7 g/dL 29.9 - 35.2 g/dL [facility] MCV (RBC) [Entitic vol] 87.6 fL 81.0 - 99.0 fL [facility] MONOCYTES ABSOLUTE AUTO 0.6 [facility] Monocytes/100 WBC (Bld) 8 % 1.7 - 12.0 % [facility] NEUTROPHILS ABSOLUTE AUTO 5.6 [facility] Neutrophils/100 WBC (Bld) 70.2 % 43.0 - 75.0 % [facility] Platelet mean volume (Bld) [Entitic vol] 9.7 fL 9.5 - 13.5 fL [facility] EO # 0.1 [facility] TBH PLT 400 [facility] TB RBC 3.72 Low [facility] TBH WBC 8 [facility] Basophils Auto (Bld) [#/Vol] on 08-05-2024 Basophils (Bld) [#/Vol] Automated basophil count 0.0-0.1 [facility] Basophils/100 WBC Auto (Bld) on 08-05-2024 Basophils/100 WBC (Bld) Automated basophil % 0.2-2.0 [facility] Eosinophils/100 WBC Auto (Bl d)on 08-05-2024 Eosinophils/100 WBC (Bld) Automated eosinophil % 0.9-7.0 [facility] Erythrocyte distribution wid th Auto (RBC) [Ratio]on 08-05-2024 Erythrocyte distribution width (RBC) [Ratio] Erythrocyte distribution width [Ratio] by Automated count 11.0-15.0 [facility] Hematocrit Auto (Bld) [Volum e fraction]on 08-05-2024 Hematocrit (Bld) [Volume fraction] Hematocrit [Volume Fraction] of Blood by Automated count Low 36.0-48.0 [facility] Hemoglobin [Mass/volume] in Bloodon 08-05-2024 Hemoglobin (Bld) [Mass/Vol] Hemoglobin [Mass/volume] in Blood Low 12.0-16.0 [facility] Laboratory - Hematology and Cell countson 08-05-2024 Immature granulocytes/100 WBC (Bld) 0.9 % High 0.0-0.5 [facility] Leukocytes [#/volume] correc lisha for nucleated erythrocytes in Blood by Automated counon 08-05-2024 WBC corrected for nucl RBC Auto (Bld) [#/Vol] Leukocytes [#/volume] corrected for nucleated erythrocytes in Blood by Automated coun 4.0-11.0 [facility] Lymphocytes Auto (Bld) [#/Vo l]on 08-05-2024 Lymphocytes (Bld) [#/Vol] Lymphocytes [#/volume] in Blood by Automated count 1.2-3.8 [facility] Lymphocytes/100 WBC Auto (Bl d)on 08-05-2024 Lymphocytes/100 WBC (Bld) Lymphocytes/100 leukocytes in Blood by Automated count Low 20.5-60.0 [facility] MCH Auto (RBC) [Entitic mass ]on 08-05-2024 MCH (RBC) [Entitic mass] MCH [Entitic mass] by Automated count 26.7-34.0 [facility] MCHC Auto (RBC) [Mass/Vol]on 08-05-2024 MCHC (RBC) [Mass/Vol] MCHC [Mass/volume] by Automated count 29.9-35.2 [facility] MCV Auto (RBC) [Entitic vol] on 08-05-2024 MCV (RBC) [Entitic vol] MCV [Entitic volume] by Automated count 81.0-99.0 [facility] Monocytes Auto (Bld) [#/Vol] on 08-05-2024 Monocytes (Bld) [#/Vol] Automated blood monocyte count 0.3-0.8 [facility] Monocytes/100 WBC Auto (Bld) on 08-05-2024 Monocytes/100 WBC (Bld) Automated monocyte % 1.7-12.0 [facility] Neutrophils Auto (Bld) [#/Vo l]on 08-05-2024 Neutrophils (Bld) [#/Vol] Neutrophils [#/volume] in Blood by Automated count 1.4-6.5 [facility] Neutrophils/100 WBC Auto (Bl d)on 08-05-2024 Neutrophils/100 WBC (Bld) Automated neutrophil % 43.0-75.0 [facility] No Panel Informationon 08-05 Eosinophils # (Auto) 0.1 10 3/uL 0.0-0.7 [facility] Immature Granulocyte # (Auto) 0.07 10 3/uL High 0.00-0.03 [facility] Platelet mean volume Auto (B ld) [Entitic vol]on 08-05-2024 Platelet mean volume (Bld) [Entitic vol] Platelet mean volume [Entitic volume] in Blood by Automated count 9.5-13.5 [facility] Platelets Auto (Bld) [#/Vol] on 08-05-2024 Platelets (Bld) [#/Vol] Platelets [#/volume] in Blood by Automated count 150-450 [facility] RBC Auto (Bld) [#/Vol]on RBC (Bld) [#/Vol] Erythrocytes [#/volume] in Blood by Automated count Low 4.20-5.40 [facility] Urinalysis macro (dipstick) panel (U)on 06-22-2024 Bilirubin, UA Negative Negative - 4(70) +++ mg/dL [facility] Blood, UA Negative Negative - 50 Jimy/mcL [facility] Clarity, UA Clear [facility] Color, UA Yellow [facility] Glucose, UA Negative Negative - 1999(110) ++++ mg/dL [facility] Interpretation and review of laboratory results Abnormal [facility] Ketones, UA Positive Negative - 160(16) ++++ mg/dL [facility] Comment on above: 15 Leukocytes, UA Positive Negative - 500+++ Mychal/mcL [facility] Comment on above: small Nitrite, UA Negative Negative - Positive [facility] pH, UA 5.5 5 - 9 [facility] Protein, UA Trace Negative - 1999(20) ++++ mg/dL [facility] Spec Grav, UA 1.03 1 - 1.03 [facility] Urobilinogen, UA 0.2 0.2 - 12 mg/dL [facility] IGP,APTIMA HPV,AGE GDLNon AGE GDLN ACOG TESTING Note . [facility] Comment on above: TESTS RESULT FLAG UN ITS REF RANGE LAB Clinician Provided Cytology Information Source.............Cervix Other.............. No. of containers..01 ThinPrep Vial Age Algo ACOG Michelle... FLAG LEGEND: L-Low Normal,H-High Normal,LL-Alert Low,HH-Alert High <-Panic Low,>-Panic High,A-Abnormal,AA-Critical Abnormal Performed at: 01 =[address] [facility] [address] Mar Rivera MD, IGP, RFX APTIMA HPV ASCU Note . [facility] Comment on above: TESTS RESULT FLAG UN ITS REF RANGE LAB DIAGNOSIS: 02 NEGATIVE FOR INTRAEPITHELIAL LESION OR MALIGNANCY. FUNGAL ORGANISMS MORPHOLOGICALLY CONSISTENT WITH CARLOS SPECIES ARE PRESENT. Specimen adequacy: 02 Satisfactory for evaluation. No endocervical component is identified. An endocervical component is not commonly seen in the patient. Performed by: Judy Vera, Boat Outfitter ([facility]) . 02 Note: Note 02 [...] Low,>-Panic High,A-Abnormal,AA-Critical Abnormal Performed at: [address] [address] Mar Rivera MD, Performed at: = - [address] [id number] Manager Assembly: Mar Rivera MD, Phone: [phone] Performed at: [address] [id number] Manager Assembly: Mar Rivera MD, Phone: [phone] SP[facility]ONE C[facility]IX [facility] AFP, SERUM, OPEN SPINA BIFID Aon 05-30-2024 AFP MOM 1.36 . [facility] AFP VALUE 55.4 ng/mL . [facility] COMMENT: Comment . [facility] Comment on above: Ivet Mobley , Ph.D., [facility] Director References: Available Upon Request. Multiples Of Median Cutoffs For AFP Elevations Del Rosario 2.5 Black 2.8 IDD 2.0 Twins 4.5 Abbreviation Definitions IDD - Insulin Dep Diabetes OSBR - Open Spina Bifida Risk For further inquiries contact [facility] at [phone]. This test was developed and its performance characteristics determined by [facility]. It has not been cleared or approved by the Food and Drug Administration. Performed at: [facility] [address] [place], [place] [id number] Manager Assembly: Kristina Carter [facility], Phone: [phone] GEST. AGE ON COLLECTION DATE 18.6 . weeks [facility] GESTAT. AGE BASED ON LMP . [facility] Comment on above: Recalculations are n ot recommended when gestational dating by LMP and ultrasound are within 10 days. INSULIN DEP DIABETES No . [facility] INTERPRETATION Comment . [facility] Comment on above: Interpretation: Scre [...] Customer Services to discuss available options. The [employer] recommends amniocentesis be offered to women age 35 and older. MATER[age] AT SARA 25.3 . [age] [facility] MULTIPLE GESTATION No . [facility] OSBR RISK 1 IN 4033 . [facility] RACE . [facility] RESULTS Report . [facility] TEST RESULTS: Negative . [facility] WEIGHT 185 . lbs [facility] N N LMP [id number] 4 18 N 1 Y 185 N N N N N White/ [facility] Urinalysis macro (dipstick) panel (U)on 04-27-2024 Bilirubin, UA Positive Negative - 4(70) +++ mg/dL [facility] Comment on above: small Blood, UA Negative Negative - 50 Jimy/mcL [facility] Clarity, UA Clear [facility] Color, UA Yellow [facility] Glucose, UA Negative Negative - 2000(110) ++++ mg/dL [facility] Interpretation and review of laboratory results Abnormal [facility] Ketones, UA Positive Negative - 160(16) ++++ mg/dL [facility] Comment on above: trace Leukocytes, UA Positive Negative - 500+++ Mychal/mcL [facility] Comment on above: small Nitrite, UA Negative Negative - Positive [facility] pH, UA 6.0 5 - 9 [facility] Protein, UA Negative Negative - 2000(20) ++++ mg/dL [facility] Spec Grav, UA 1.030 1 - 1.03 [facility] Urobilinogen, UA 0.2 0.2 - 12 mg/dL [facility] ALL CBC WITH AUTO DIFFon BASOPHILS ABSOLUTE AUTO 0.0 [facility] Basophils/100 WBC (Bld) 0.1 % Low 0.2 - 2.0 % [facility] Eosinophils/100 WBC (Bld) 0.9 % 0.9 - 7.0 % [facility] Erythrocyte distribution width (RBC) [Ratio] 13.0 % 11.0 - 15.0 % [facility] IMMATURE GRANULOCYTES ABS AUTO 0.03 [facility] Immature granulocytes/100 WBC (Bld) 0.3 % 0.0 - 0.5 % [facility] Interpretation and review of laboratory results Abnormal [facility] LYMPHOCYTES ABSOLUTE AUTO 2.3 [facility] Lymphocytes/100 WBC (Bld) 26.6 % 20.5 - 60.0 % [facility] MCH (RBC) [Entitic mass] 30.1 pg 26.7 - 34.0 pg [facility] MCHC (RBC) [Mass/Vol] 34.6 g/dL 29.9 - 35.2 g/dL [facility] MCV (RBC) [Entitic vol] 87.0 fL 81.0 - 99.0 fL [facility] MONOCYTES ABSOLUTE AUTO 0.4 [facility] Monocytes/100 WBC (Bld) 4.1 % 1.7 - 12.0 % [facility] NEUTROPHILS ABSOLUTE AUTO 5.9 [facility] Neutrophils/100 WBC (Bld) 68.0 % 43.0 - 75.0 % [facility] Platelet mean volume (Bld) [Entitic vol] 9.6 fL 9.5 - 13.5 fL [facility] TB EO # 0.1 [facility] PLT 400 [facility] RBC 4.55 [facility] WBC 8.7 [facility] CBC without diffon Rbc Mcv (Fl) By Automated Count [address] [facility] Laboratory - Hematology and Cell countson 04-08-2024 Hematocrit (Bld) [Volume fraction] 39.6 % [facility] Hemoglobin (Bld) [Mass/Vol] 13.7 g/dL [facility] No Panel Informationon 04-08 [facility] Rubella IGG immune statuson 04-08-2024 Rubella immune IgG 2.32 [facility] Syphilis Total(Unknown Syphi lis Status)on 04-08-2024 Syphilis Non-Reactive [facility] Type and screenon 04-08-2024 Abo/Rh(D) Positive [facility] HCG ( test) Ql (U)o n 03-27-2024 Interpretation and review of laboratory results Abnormal [facility] Preg Test, Ur Positive [facility] Urinalysis macro (dipstick) panel (U)on 03-27-2024 Bilirubin, UA Negative Negative - 4(70) +++ mg/dL [facility] Blood, UA Negative Negative - 50 Jimy/mcL [facility] Clarity, UA Clear [facility] Color, UA Yellow [facility] Glucose, UA Negative Negative - 2000(110) ++++ mg/dL [facility] Interpretation and review of laboratory results Normal [facility] Ketones, UA Negative Negative - 160(16) ++++ mg/dL [facility] Leukocytes, UA Negative Negative - 500+++ Mychal/mcL [facility] Nitrite, UA Negative Negative - Positive [facility] pH, UA 5.5 5 - 9 [facility] Protein, UA Negative Negative - 1999(20) ++++ mg/dL [facility] Spec Grav, UA 1.025 1 - 1.03 [facility] Urobilinogen, UA 0.2 0.2 - 12 mg/dL [facility] PROGESTERONEon 07-27-2022 Progesterone 26.9 ng/mL Normal [facility] Comment on above: Result Comment: Foll icular phase 0.1 - 0.9 Luteal phase 1.8 - 23.9 Ovulation phase 0.1 - 12.0 First trimester 11.0 - 44.3 Second trimester 25.4 - 83.3 Third trimester 58.7 - 214.0 Postmenopausal 0.0 - 0.1 Performed By: #### P BRETT #### [facility] [address] [place] [address] Dr. Ryan Francisco PREG QUANT HCGon 07-12-2022 HCG QUANT <1 Normal [facility] Comment on above: Performed By: #### P REGQNT #### [facility] [address] [place] [address] Dr. Ryan Francisco HCG RANGE SEE BELOW Normal [facility] Comment on above: Result Comment: 5-50 0.2-1 WEEK 50-500 1-2 WEEKS 100-5,000 2-3 WEEKS 500-10,000 3-4 WEEKS 1,000-50,000 4-5 WEEKS 10,000-100,000 5-6 WEEKS 15,000-200,000 6-8 WEEKS 10,000-100,000 2-3 MONTHS Performed By: #### P REGQNT #### [facility] [address] [place] [address] Dr. Ryan Francisco XR HYSTEROSALPINGO EXPon XR [...] CLEMENTINE DEWEY Date: 2022-07-12 12:34 Normal [facility] PROGESTERONEon 06-29-2022 Progesterone 4.6 ng/mL Normal [facility] Comment on above: Result Comment: Foll icular phase 0.1 - 0.9 Luteal phase 1.8 - 23.9 Ovulation phase 0.1 - 12.0 First trimester 11.0 - 44.3 Second trimester 25.4 - 83.3 Third trimester 58.7 - 214.0 Postmenopausal 0.0 - 0.1 Performed By: #### P BRETT #### [facility] [address] [place] [address] Dr. Ryan Francisco PROGESTERONEon 06-01-2022 Progesterone 18.9 ng/mL Normal [facility] Comment on above: Result Comment: Foll icular phase 0.1 - 0.9 Luteal phase 1.8 - 23.9 Ovulation phase 0.1 - 12.0 First trimester 11.0 - 44.3 Second trimester 25.4 - 83.3 Third trimester 58.7 - 214.0 Postmenopausal 0.0 - 0.1 Performed By: #### P BRETT #### [facility] [address] [place] [address] Dr. Ryan Francisco US PELVIS AND TRANSVAGon [...] by: CLEMENTINE DEWEY Date: 2022-05-17 17:25 Normal [facility] PROGESTERONEon 04-29-2022 Progesterone 5.1 ng/mL Normal [facility] Comment on above: Result Comment: Foll icular phase 0.1 - 0.9 Luteal phase 1.8 - 23.9 Ovulation phase 0.1 - 12.0 First trimester 11.0 - 44.3 Second trimester 25.4 - 83.3 Third trimester 58.7 - 214.0 Postmenopausal 0.0 - 0.1 Performed By: #### P BRETT ####[facility] [address] [place], [place] [address]Cy. Ryan Francisco ANTI-MULLERIAN HORMONEon Anti-Mullerian Hormone (AMH) 6.09 ng/mL Normal [facility] Comment on above: Result Comment: For assays employing antibodies, the possibility exists for interference by heterophile antibodies in the samples.1 1.Steffen Wilson Interferences in Immunoassays - still a threat. Clin. Chem. 2000; 46: 1614-8752. This test was developed and its performance characteristics determined by [employer]. It has not been cleared or approved by the Food and Drug Administration. Reference Range: Females 20 - 25y: 1.23 - 11.51 Median 4.70 AMH concentrations of >= 1.06 ng/mL is correlated with a better response to ovarian stimulation, produced more retrievable oocytes and higher odds of live according to Gleicher et al. Fertility and Sterility. 2010: 94:6978-5648. The current AMH test method correlates with [...] A WEI #### [facility] [address] [place] [address] Dr. Ryan Francisco FSHon 04-05-2022 FSH 3.6 mIU/mL Normal [facility] Comment on above: Result Comment: Adul t Female: Follicular phase 3.5 - 12.5 Ovulation phase 4.7 - 21.5 Luteal phase 1.7 - 7.7 Postmenopausal 25.8 - 134.8 Performed By: #### [facility] #### [facility] [address] [place] [address] Dr. Ryan Francisco LUTEINIZING HORMONE (LH)on 0 04-05-2022 LH 6.8 mIU/mL Normal [facility] Comment on above: Result Comment: Adul t Female: Follicular phase 2.4 - 12.6 Ovulation phase 14.0 - 95.6 Luteal phase 1.0 - 11.4 Postmenopausal 7.7 - 58.5 Performed By: #### L BCL ####[facility] [address] [place] [address]Dr. Ryan Francisco CBC AUTO DIFFon 04-04-2022 BASO # 0.0 103/ul Normal 0.0-0.1 [facility] Comment on above: Performed By: #### C BC #### [facility] [address] [place] [address] Dr. Ryan Francisco Basophils/100 WBC (Bld) 0.3 % Normal 0.2-2.0 [facility] Comment on above: Performed By: #### C BC #### [facility] [address] [place] [address] Dr. Ryan Francisco EO # 0.1 103/ul Normal 0.0-0.7 [facility] Comment on above: Performed By: #### C BC #### [facility] [address] [place] [address] Dr. Ryan Francisco Eosinophils/100 WBC (Bld) 1.7 % Normal 0.9-7.0 [facility] Comment on above: Performed By: #### C BC #### [facility] [address] [address] [address] Ryan Francisco Erythrocyte distribution width (RBC) [Ratio] 12.7 % Normal 11.0-15.0 [facility] Comment on above: Performed By: #### C BC #### [facility] [address] [place] [address] Dr. Ryan Francisco Hematocrit (Bld) [Volume fraction] 39.7 % Normal 36.0-48.0 [facility] Comment on above: Performed By: #### C BC #### [facility] [address] [place] [address] Dr. Ryan Francisco Hemoglobin (Bld) [Mass/Vol] 13.4 g/dL Normal 12.0-16.0 [facility] Comment on above: Performed By: #### C BC #### [facility] [address] [place] [address] Dr. Ryan Francisco IG # 0.03 10e3/ul Normal 0.00-0.03 [facility] Comment on above: Performed By: #### C BC #### [facility] [address] [place] [address] Dr. Ryan Francisco IG % 0.5 % Normal 0.0-0.5 [facility] Comment on above: Performed By: #### C BC #### [facility] [address] [place] [address] Dr. Ryan Francisco LYMPH # 1.6 103/ul Normal 1.2-3.8 [facility] Comment on above: Performed By: #### C BC #### [facility] [address] [place] [address] Dr. Ryan Francisco Lymphocytes/100 WBC (Bld) 27.1 % Normal 20.5-60.0 [facility] Comment on above: Performed By: #### C BC #### [facility] [address] [place] [address] Dr. Ryan Francisco MANUAL DIFF REQ NO Normal [facility] Comment on above: Performed By: #### C BC #### [facility] [address] [place] [address] Dr. Ryan Francisco MCH (RBC) [Entitic mass] 29.6 pg Normal 26.7-34.0 [facility] Comment on above: Performed By: #### C BC #### [facility] [address] [place] [address] Dr. Ryan Francisco MCHC (RBC) [Mass/Vol] 33.8 g/dL Normal 29.9-35.2 [facility] Comment on above: Performed By: #### C BC #### [facility] [address] [place] [address] Dr. Ryan Francisco MCV (RBC) [Entitic vol] 87.6 fL Normal 81.0-99.0 [facility] Comment on above: Performed By: #### C BC #### [facility] [address] [place] [address] Dr. Ryan Francisco MONO # 0.4 103/ul Normal 0.3-0.8 [facility] Comment on above: Performed By: #### C BC #### [facility] [address] [place] [address] Dr. Ryan Francisco Monocytes/100 WBC (Bld) 6.7 % Normal 1.7-12.0 [facility] Comment on above: Performed By: #### C BC #### [facility] [address] [place] [address] Dr. Ryan Francisco NEUT # 3.7 103/ul Normal 1.4-6.5 [facility] Comment on above: Performed By: #### C BC #### [facility] [address] [place] [address] Dr. Ryan Francisco Neutrophils/100 WBC (Bld) 63.7 % Normal 43.0-75.0 [facility] Comment on above: Performed By: #### C BC #### [facility] [address] [place] [address] Dr. Ryan Francisco Platelet mean volume (Bld) [Entitic vol] 9.9 fL Normal 9.5-13.5 [facility] Comment on above: Performed By: #### C BC #### [facility] [address] [place], [place] [address] Dr. Ryan Francisco PLT 421 103/ul Normal 150-450 [facility] Comment on above: Performed By: #### C BC #### [facility] [id number] Ryan Francisco RBC 4.53 106/ul Normal 4.20-5.40 [facility] Comment on above: Performed By: #### C BC #### [facility] [address] [address] [address] Ryan Francisco WBC 5.8 103/ul Normal 4.0-11.0 [facility] Comment on above: Performed By: #### C BC #### [facility] [address] [address] [address] Ryan Francisco FREE T4on 04-04-2022 Free T4 [Mass/Vol] 0.99 ng/dL Normal 0.76-1.46 [facility] Comment on above: Performed By: #### F T4 #### [facility] [address] [address] [address] Ryan Francisco TSHon 04-04-2022 TSH 3.086 uIU/mL Normal 0.358-3.740 [facility] Comment on above: Performed By: #### T SH ####[facility] [id number] [place], [place] [address]GhDr. Ryan Francisco US PELVIS AND TRANSVAGon US [...] by: LUCHO MIXON Date: 2022-04-04 16:38 Normal [facility] Auth for Release of Medical Recordson 12-20-2021 Auth for Release of Medical Records [id number] 1.00CD:[address] [facility] Coding Summary.on 08-22-2021 Coding Summary. CD:[id number] Gh0bWw+PGhlYWQ+PE1FV BQaO28nhTPmwY8HG9oZJ Z4OPCQFXEVCDZ5SGJ1ov YQ1JDrvF4IdstLb KyvxtZFcEC30UGe9OOD8 lWjlAPhvaT7fyBZdU0d4 SkEeSL86yB77KVwoYEPa WyY5MkJkgbcrlVXl F8prBmLieEBhFbt+PHRh YmxlIHdpZHRoPScxMDAl IyNpmTukQB7oZo3vJAKj LWNvbGxhcHNlOiBj x8zmEPXwAMhzWY7vwDvc F2FljJK1ACWjf9e5Mt48 dHI+AJCtJSZ4zYolHZzz p196LwJsg7ekKNU3 lSDhKAyzNJM7B55uw2B4 XYHtBFHtARZ0zFN5zK1m hIjtipgdQ0GqzSPkMdF3 QFS6aMUfzL7wmHqa ktsabE1eRfl+D94DPT3W OSHVDZ0ZEge7V3CcOuxr dHI+NE66ZSVsTC71bYQi pVPif1wnzJc9LgEm VFRsKKS2hPbgKNnwj4Ss CTPzO56fyPWrd0H7IBEt bSvxtRIuCxPdwMN4iG5h QQplotbib8zybtdp Rgfrv9paso34tB52D21i PBdnYYDyGHG1CBKrREYs qCpbpo9mjZ8xRq9+IDxj w6cyu2mbnUn2MqYt SPXeskRqwJyaDQF3v7Ng Ig16Z2LmzBdqs1IkUwi3 dy81dMLnn7V9rUE9ZXva VZCyzJ3rLOoyQcQ6 EBHmBrCliG55zHNtYQdl Ep8kqHoaaVhsFK5qFYEr ftolIFGppV9iWJUhrYCd zMscZF7zOXVgyfem z969EgYaZWV9AMJfqKYu Y3AfrA8qHjMdRHKvAFNf B5NpwAYcHVpiZ711HPdi RkS4RIEjwqWvY2Eo OHIyuBpxXzB5f4R3Bp8U x4JysgquRUA6EXwyPDMf BlF2IoBgSiW9M0PfOnu0 DEOxbManAW7tH1Gb QQKexcnmetzfaDY9HXIu WBRluJ31rYHuMSmdFy0p m1K2c113WJPyRMArlF36 Hn6zxXejUHKoxPHK fP2xbspoz1gpisugQsNi NAHvVVi2UVb1BQOycVoh AvPaRHZ3NxN0RAD8eDKl aZ2wuSawjkyjvZ0p Oyc+E35ymD3oKZA9AKM2 miafDMZtkgOkHS52OF88 X5DbLmcicUShmUG+PGRp dhKtfUcvTM0fKgYu p0qab7ZcHLvvV6HyNHMp SHzyRrs4MZPfAGG5iIM1 kI2sXOTuXOugj2V0xUX7 O8RtoqUrzl5sz0sc WSLrGFkrK61xyEShb6H3 VJLjpIX9OFMfkWmpQqVf vU41Jmk+QVUskJsph7Ap Cqrlh1wfg6objJi8 IjMwJSIgdmFsaWduPSJ0 u4IuVt81A43mSCoyEHAv IGFuZZYwMYOrfPdung3e eY5vIo7+PGNvbCB3 wMX0nV0bGJNgFlW5TQej K387NfQdnXTtItecz3uh d7rwrHm9SdYhCQHmmnFr dTsmUDM6w3AaSl83 F72dSXziBTAiOYErGAJy JKAaeWtxyv2ncK6gNz6+ ZZ9hi4thav78cW73nSY+ VOIpUPJ4aUxuMTyg PVXejI3yAPknCyR7BJOa KgDrdO53uHOxESnlRe7q uExcbEmdKI8uEOVifnub y786WzUgl8ulAZKg gCXbQNanPAY1F63si3D0 LAByEXXmWUW5wVL1uJ3u bGlnbjogbGVmdDsgdmVy rHkqHXceHGrhU884 IHRvcDsnPlBhdGllbnQg JoOgEWv0Q8OvPkz5INYs fNuhUV5okVTiCLhaPn2b eNwovHglAC3oHWCr ggncs018JyJuk6fhEWNl fMJxBJhbHJD7V33da8Q3 IQCxAIAcXTL9hGR9jA4x bGlnbjogbGVmdDsg leGofFdcKClaGWecE643 IHRvcDsnPkJpcnRoIERh eOG1AF18LI33bOMjq9J8 mZM6X4NcNIFwfoaj feicbPF5TBBzKTFlwE22 At8fgYikNs1qRVVoBQT7 WCDqlCBbY6PjqC9mRrEj BMTvVSZqY1SwqGSb BJuuV518BAdyWsQ1SFDf nkGqP7GrYBPriZtvXhJ4 l3J3La2PJ9D3BB18PD95 nZDci2H3xWQ3K8Dh CKQlnczkrkygiZQ7GCJz LBEylP10Wx8bhRijPz6z ZMGiOOC2YPJgtRZwO1Pf tU4hQuLoIQWyIFEd K6RanPKyHJstA694DBxv IcT7RUHioxKrV2UaMJCs oKniMxD4u7J7Rs3ZFKt8 IZ01RU91gZCsa5Y4 yYJ1P5WhPOVsdtewyupw kPS1XRXuXXZzsX20Wn4p eDfvMu3xXIVeEPM2HHXk zHIhP0NriK7kIlBj EXArJFXwF4UcdQYbTZro Z704JOupPoI5AEYtcrEj O6SsLUBeqPebUaD9c6F9 Xq7DBJGiXC62QRX9 oAT3HW56GF60A9JbIpeh dGFibGU+PHRhYmxlIHdp ZHRoPScxMDAlJyBzdHls KS6sVv3jIHQwPPWl qObuhFFxHeRbp3xiSTBf HOfoUQ7nxYlqT0NudYY4 ZWHgl2j0Uh62C41dP5Yq dXA+FFKzlCT5cXZ9 qZ6qIsSpEkZ1KKtjW809 MsPmrFAwUxjks0spm6wg sFx1TlE6UOBrbdApbGhb EUY1e2RaDp33K18e IHdpZHRoPSIxNSUiIHZh yQkkxd9udQ7eIn4+PGNv gIE8tOL0iS2jOxRzRjX5 ILdqM364RhKbmVWg Mdxwn0jdj5vnyNy5AqGv XMFblwOitZejASX2u5Nr Mc81Q5TbdVozw9ZwJpt1 ex20pASmi2D8yJR3 I6SyIOAewazlvYJfmYbe TM1iAVRqfifdTMEntH8z UVJrO4a8EwMaBiQ5JVjq N1CkbsZ7LHNlfCKr DSueDUX7F41br0E6WKGc YLQyOKZ1iOV6sQ0sqZym bjogbGVmdDsgdmVydGlj ZUzzOBmwK009BKTk dHmjWWSeaT6qMZSrlVGm mHujZH0fZNNposfvDujB ENFeLBgOOEIHSC17HZ70 gVNay7E6zMO1V1Qx CHGdtomsyyphnCM0HOJd GJHdlL71jNPnHUbvBz8v g1G2x991IQZyLBOngQ43 Pt1htTjyEPVedYHS mL0ydqbaj0axzovnLqIu FAShCZw8QWb8SMVpqGvl LhMpTZA5AmB7SME9eCOv yH7vhLealqugeH9u Oyc+WLLiOunsOBw9JHkv dGQ+XNRiODL3bFxmDRvy FDLmmY8jYPFcO0z5LxHh PqE0VYlcM4GwWRMp wcfvDy56yZ4nAdTyMaL4 LXhoU2YpfyV5HKKppTXy IOxeMNI4W48zk0H0PMUx INEuAWT1kBR5tD8m bGlnbjogbGVmdDsgdmVy oRzxFZkzARtwJ292DNOd mUpaRsGkPHjlDTTsCZ84 UX79bDCwz6A6xKO4 N4ByJXWuuazycfxfhEV9 GTEcJDMccV12mKAaNOgy Mb3we8Y0m229TSCwNNZc uD76Ds7gpBpmTVOc nPPCeV9vergsm9qudsdy DkByTLQuJTb2GWf7SDTo rWljGhTxNDX6CiA8AON9 hMYcwG2vyOfxcvjv jF4gCip+QzBhXFjgCI69 OF54fWNop2Q1jJW1T8Ku MDEgmdvpupluhTN6ZWLt YSVjxK57mLOaQDja Yk6kp6J5h377SBImNHYz kG38Mx1xgEozJZHnuZNI jO7zakvxi9dkqpfnFoMw NWEkIFx4FXy2COFc dDlgQeBnMGU0BvT8RLM7 zQBhhL5axYueyaqbuZ3q Oyc+D6D1tFI6dSYfdZyy dGQ+OE86jp58N9Nx MickNim8XSVdSJH9iCP8 vB6zTOZhTJhpg5G4lMI7 L5OannXkho7um4ynGXPi AJngP31maLIcg4R0 XPXqdML6LAKyyBhkNfIm eH92Xgg+XIKuvIhzh2Fv Ifnlw3zor4gruGc0IhGx JSIgdmFsaWduPSJ0 t0JmWp71W12fCXbnKQWr GRCrZBKiCFRrqJcvqf4f qZ0uGs4+VEFzqXP6iUL9 pR3jYjFhRzH1OAxb V954BjIcbEMkMofyp6dy o3cdiOk8OkYvLGWopiSn iXsvQJL7n8AuUh96X3Lx mDgle0DoDjg6vg49 dJPgb0P9fGZ3B4VxLVYx iofkkXOdsAbuIN2eTVAf jmiwFPEbaD8sZVMkY4l1 DtUtDuZ5VHfkR0Bs niZ2UIAehKFmPRBqmPZR uO2acdhqz3spiafuOeDg ZJGtZWy2YQj6KSFgcSzs SdAgYYN9KxZ9IHM0 dFYrcV6ssJgfkfjakV7k Oyc+QEr1k4udqFHcSC1f hUZ3ZD76NT56gKOfm4N4 kXC4P8JiQORksilk xhdtnBM1CZQrJZMbwU36 Mo6bzSlyUu0wXDDfSXH8 DMBsbTPdD8BzaN0zUhKu AMKtWTKeN6PrjGSl HUvfS164SWsdXuU4MYZs mqTaR9UnRNFgjAbsJuG0 y2J8Om1DUF77FG16LD46 bDNrj0F1eDE3D8Vv EHLzfnzisriuwKX5XANi JMZewV61Dr3vbLvfCj1x ILTlXQN6WGNzeUZjL0Jz uJ2zLpQeRCZlHLUd W5BexOBiLRkdZ659XMkg CbK4ZWJvaaObY3OzBJTa cCmlCuF6t9U6Oa4WDx89 OA23EI41hWErw4G4 lMO7D6LqAKWirsbyjibj sUS9WJKoPRQklX79Dh0c hQxiBt1nTRPkPYF8GUSl sMKwC7BzzX6cMlKz WTEaFQHsZ9HglIUcNNav Q811BXveWyX6XXMdyzBg V7RuTOVwzNafRbY5c2G2 Rk1RFYglkep4K0Oj PjwvdHI+LA99UOCqPI32 iCXrhSGty9orxHs8HoDp ZBUkWCX5kCvgCFwls7Nj STAbC23wjAAvo4I4 IGNv (more content not included)... Normal [facility] Coding Summary. CD:[id number] Gh0bWw+PGhlYWQ+PE1FV WCcI90wjLUzyP5BM1uPI O4POHEFABTQRN2JSA5ug TQ1OEsyQ8YztmJh RpndlQLeVT93IIz8OMJ2 xOmnPBhshZ1txQIqN6c3 ZfZzRV64dM86IZweAHUm KkL9ShNvecteyGGl L8ncVvMbzNFbDnv+PHRh YmxlIHdpZHRoPScxMDAl XdZkpIbbGA3fJn0kSAQl LWNvbGxhcHNlOiBj f0mgKIIqSLjrQD1hgUpw T2JpjCH5IWUci7z7Jh91 dHI+WQQzHXY6kSihPZlo d779NjVtq2flBHH8 kVVpOQmvUBI2Z72ai4N2 JOUgBACkDCK9rSM9yS3h aHagcgyqS0LgdPYsAfG5 WMS9qACnrD7lyAss dmhpkA1oSzu+E81QFN8Y CRHQTR0MXlt3N6TqRdtc dHI+FB21DHEcFK75yJVe eUXqx4eekCg1YlYg MYHoCNY9pXrxMKkbr0Fl UZYeL90eaIBuy3Y9LYOk lTvnqJNpHhLctQB1mO8k VGysgqkyz5ctiurw Owzxg3czdg89xF94W34x ALcwPTLyMVX9FIFfTOPn fVykbn0zxK9gEq9+IDxj y3bbu7gjrIt7GdDb UHKtyxJkeDpzRDQ2v8Jy Dx50R5ZriHvyz9KtJit4 io17cXLbz6S0dMU7CEyy USWrlE9yZNfvNeF1 HOByPxCewW52nTYhCKkx Sr5avUwbsWnsQH8bCRUt ffqjXAOtmB7oBVWqvPUn fVixCN8nTWJnmjsn g396MlGfUCF7WIVxhURi B4AdtA7zJrIcTMCmYCPr N1RsmTFlKKbcN505EMsr OpF1ZNLqvrUyE9Lh NIQbrQexNiK5y6Q3Vn5P v1UrayseMTZ2NFkzOSAg RkK6WzXqBfN5I4HtRmz4 LUNsgHqpWF0hH7Ut TTYfwsihlvzxrBV6QHBm VBTfmR37wBVnXRprZa8p f8B0h719WPRdWILttW34 Hp6ujDxtLKKkyQEZ aN4isxlmw3uxuznuPcKo AIDcECe3DDz2PQVzwGsf GeRxZJR1InE6NZT3gVRe jA4gaCevznussM9g Oyc+D69sqB3pHGE5EAE1 xxqgEIIfwiNrQQ22VJ58 V7WcBnwgrLBwxSK+PGRp esNiqDsdML8zCwFv h5quh0MmPSeaJ6NgXSXr CFjfPek9TMCfXGH6vRW0 qO1oEMDdMLhxr1O9iZA8 H0UqgdWzbj7bz4tk ZZDnPTraA67xlNRvb8W3 PJYumUD5NFVzyNsuBuTm eE27Egn+AYMbaApsz3Ld Nzyev0kih8wfbLp9 IjMwJSIgdmFsaWduPSJ0 j7IaIi67M82lOTrxEXDy RTBlICMeQKWxgExdxo1t oF6qWr1+PGNvbCB3 bUT8tK6sIJQdPqH0HBwp B398XjYprUVeSvgwq0zz s5omjRp3XvKzWOYxkuRc jKthXIQ5g9WqNu86 J92eWTooUCZhQYZpSOVc BXBiiFpsre8wnJ6rOw8+ UF9xh6zxmk28qW32pKO+ JDXnXGQ1tKpvEUrj JIJqyD3oPPbgPzY9WYTj TkGhvB02zVZvGAftKz9k rQjppAlhNR7aQCFcrlvb t780JgCij8dcKZMv yAPtLFtxFWN1W14ls9Q4 UNHtMDHnJOC8qNP7bN6w bGlnbjogbGVmdDsgdmVy wCicHErqQSutS773 IHRvcDsnPlBhdGllbnQg WiVzBMd1G9LoGzp9NTDq nYreQH8xmWCgJRkvGu6b oYuluFtwYW8cZGRy gypoo139SgLxe7hzHZSr tZLdQCwlLYY4O73mo2Y9 UDHzNWYvYCZ0fHC9wZ9w bGlnbjogbGVmdDsg nbCvzIcjOAmcAZbhT660 IHRvcDsnPkJpcnRoIERh dBL4XM36KN21lBHbq1F5 jYM1Z3PvIAWynslr vynhhWT9XBMjEVSqmQ46 Xw0yjKqcBy7gWGQhQIZ7 ZKVsgKGlZ3XojM0rOxUr QBUsWZHkW6GrkEVr PCcoS209QZmjUaL0ODJl zrBzU9GqAIZfnSrrJaB0 s6E9Jy3ZS7C6NE61JJ26 pTCgb6U2vNK4E3Hg MTYtbckitoetwPT8JVJn IBUrlG93Ge0xbWelPt2n YRCjKFA8PGMkqJOyK8Ty cB0yHjGxSJLhAPDs S1IbzUUhKIadG574XUln BdR7IIBipnMwO9ZcQJHw zIdgIjE0i9V4Vh0MZKa9 WM16ML82qEZmf4D4 lCO9X0ThOYOqibzcepzn oQF9FZOaPJYycH99Op7q aJszYm0wSKGuWQW4EUSa rWXbD9RhiW5oLwHm IGQaWRPsH5LsvSNoEEuu B323FOdlXtS8GFIuicRj D3GnBQYiqEfyDkD0v3C1 Pv3YZUUwNT34WUO3 mTJ4LU42RD39T3MrExhh dGFibGU+PHRhYmxlIHdp ZHRoPScxMDAlJyBzdHls UW4lWx7dVIRbCMTr xLyreKKhWqVdu7ybINGm IMbwOL5oyVknV1ScnXC7 OOJty7t9Mi52N21aG9Fp dXA+XSBfpTU1dEP4 zS0cZmUlJxS5FFiwW904 ItOjnOUxPusbw1cpx5gp tDd8BaP1OJVsfuTvhGuq FUU2a3YqFc99N57u IHdpZHRoPSIxNSUiIHZh uGsjgj6nnR5mMj2+PGNv wPM1pWZ7oY7hIzZgVpG8 GAqwZ069WsXnoEEv Rozaw4xeo0tzjGp2ZnXl JCSdrpEatJpiNCS2t2Iv Lq67O2XntRyhb1AjMjc2 uq53mGOqg2U9qRG7 Q5OxBVZclqtktRAbdTdb SE5hBRDfilpjNRPqsD4w MCJhN8x8HcPtEoD7STih A7SxcyW7KLCpvIEx ZDecFAJ4I66sw5K3DGWd ACHqYQO3mNK2wP3raZws bjogbGVmdDsgdmVydGlj QQucIHrzT141ODDj xXtjAUWvkM2bYISojXIv eJltNU6uNSHpctwiYajU AVYeDNqGATIZMZ36MB55 oFMwx0M8eGS9A5Ij DAHdnfngiagleHO2LJXn VHXufI02dEExXOhwLb5x w6W9g786DJZlYLNkdC53 Rm2rqOleRQBgnAUQ hI5pgsazv8cnvnbwOiUw XQIzEWs6XSu6KRCgkCzi ZrJqNQH9NsF3SRY7uRNp jR4tdMzwtoqumV1y Oyc+VIDyQwfdYQj5TVco dGQ+AQAoPIA4kSylPIyg AGDwcV0jUJFeJ2r6CnUd UvI8UQjeG5VkHDAi qqttQe49dU2cXnVmOsZ3 PSuiR3TusbI9IOPucWSt SDnaQDL8M12qf7N4EZAt WQLrVIV7qBP1jH6d bGlnbjogbGVmdDsgdmVy pTvkGZasUSrsE850EUJj gXdgTsEzAFasBQEsME57 AZ07eFOam8R5xVR8 F2HnSHOcjqzahxxkbLQ3 UFHwXMNuzZ48sLIpHOhj Db2hn2X7f597HWAeBWRx iA09Fx5gkJwyEQTo mUHVvO2rpebbg5kwqbdp KhBgSFYcEWp1VSm5LXFx aIzeVbXzDHE3NfN6ELY5 lJXueF8gfCglytch uZ6eNql+FgBkEIcdHP31 HA30hDBsk6F3mVT5I7Bi VNCbbbjqmszzdJD7RWKh ROOalM13dFPqCOkj Nr6ji2M7b718OXZePXKr pO16Uj9zzOphMWDcrRGS gV4mqzvcj9djtvclUjAs CHPdDHc2HWn5SOQn vCyyHsLxVNA8XxR9MVP7 vTCroI7veIhqimixsO1c Oyc+YLQiZTOlg3Iki1Uj VF96HQ68C5DjVroc dGFibGU+PHRhYmxlIHdp ZHRoPScxMDAlJyBzdHls RA2zXy2sBSUdPBJysNnt tKMrZrQmg8zvCIPt OLytXV5gtCxyA4ShhXR8 KUNbo8x2Sa51Y01gO5Fc dXA+FZHsqDM5mGW2hB9w ZkNkFiH7BTdkM644 TbIhaYTdAxflv6qxa6sr mSr6DdXkCRSawiQhxHlv KST3e4QdTl35H36eKOdk ZHRoPSIyMCUiIHZh rTxrcr0rnL2hSk4+PGNv rQI0iIW9wA6oNxHhFxI6 RAmcR182AaEovDDfBjhk W95wC7ZsfOU+PHRy Gax3ZRWwaZwpTG2dpOOn ZGrsKp3gSQR2ZeGzIpJl ACepG5JeFXCpbrrcvble nLY4BXXqJHAwdB96 Ni6dvBduBn2dKVFtBQM5 RUBcaGCuP3CvlV6yTcCq UTHdJRXqT6GamUTuYEex H561LJkhFbK1BTSh afXyR3CfRZFgdNkrNdJ5 n5N3Nx0JqInzvSHnBF1k WdHaFRl3K8DaXbh2TCAu qSdkUW5snLQaHGnm Ou3mpZbqzTuvJT8gDMLb yxocd542XgNbn7ksEPNx jLEeOApjGHJ4Q31im6G2 KBGxYBPmZVK4qAL4 gY3jtYsnzlpsjGDfgFie ksZhcLrwURsfQLavA483 OFAnrVdhTxFSNyh8A9Yr Gfm1XZIvsXroEG9p wSXpMQfdBp1nbLetkGio DU2lWQSsvrhvp847HbOb p4wyQJDkxBAwSLqoDGW6 L09hh4P7NYBzUIXi LGF0aAQ2oU5okWwmomwf bGVmdDsgdmVydGljYWwt UBfzX528PBGniMlbLn5G Rrv5V5VrOxa3YFBj nFfsIP5thROkHBcvEc5d oCsxeJcvEX7nUTGqffis e889YnHar3qxVXUmiAZu CNsjBGR4E03wj9A5 UYTxQTEcLES3vLV9yH0k bGlnbjogbGVmdDsgdmVy qOsiJXouAJbeU232JWPl cDsnPlBheWVyOjwv dGQ+ST99fh88M4ZfZicj Cfw8WHCvDZN7sNC8iX9y CMKuMJpjn2P9mZY9H4Ja fqXqup5nw7ouLMFy ZTog (more content not included)... Normal [facility] PAP [id number] 08-15-2021 Cytology report Cyto stain Doc (Cvx/Vag) Note Invalid Interpretation Code [facility] Comment on above: Result Comment: TEST S RESULT FLAG UNITS REF RANGE LAB Clinician Provided Cytology Information Source.............[employer] No. of containers..01 ThinPrep Vial DIAGNOSIS: 01 NEGATIVE FOR INTRAEPITHELIAL LESION OR MALIGNANCY. Specimen adequacy: 01 Satisfactory for evaluation. No endocervical component is identified. Performed by: 01 Sujey Engle [employer] (ASCP) . 01 Note: Note 01 The [...] <-Panic Low,>-Panic High,A-Abnormal,AA-Critical Abnormal Performed at: [address] [id number] Mar Rivera MD, Performed By: #### 1 [id number] #### [facility] [address] [place] [address] HPV 16+18+31+33+35+39+45 +51+52+56+58+59+66+6 8 DNA Probe+sig amp Ql (Cvx) Negative Invalid Interpretation Code Negative [facility] Comment on above: Result Comment: This nucleic acid amplification test detects fourteen high-risk HPV types (16,18,31,33,35,39,45,51,52,56,58,59,66,68) without differentiation. Performed at: [facility] [place] [id number] MD Nicole Manuel Performed at: = [facility] [place] [id number] MD Nicole Manuel Performed By: #### 1 [id number] #### [facility] [address] [place] [address] Insulin Lvlon 08-11-2021 Insulin Qn 24.3 u[IU]/mL Invalid Interpretation Code 2.6-24.[address] [facility] Comment on above: Result Comment: Perf ormed at: [facility] [address] [id number] PhD Archie Jha Performed By: #### 1 [id number] #### [facility] [address] [place] [address] Consent for Treatmenton 07-29 Consent for Treatment [id number] #1.00CD:[address] [facility] Glu Fastingon 08-10-2021 Glucose [Mass/Vol] 95 mg/dL Normal 55-[address] [facility] Comment on above: Performed By: #### 1 [id number] #### [facility] [address] [place] [address] Physician Orderon 08-10-2021 Physician Order [id number] 2#1.00CD:[address] [facility] PAP [id number] 08-09-2021 Collection Technique BRUSH-SPATULA Normal [facility] Comment on above: Performed By: #### 1 [id number] #### [facility] [address] [place] [address] Gynecological Body Site ENDOCERVIX Normal [facility] Comment on above: Performed By: #### 1 [id number] #### [facility] [address] [place] [address] Physician Orderon 08-09-2021 Physician Order [id number] #1.00CD:[address] [facility] Gynecology Office/Clinic Not pratik 07-23-2019 Gynecology Office/Clinic Note Chief Complaint Pt had [...] is negative Normal [facility] Comment on above: Result Comment: Elec [...] is negative Normal [facility] Comment on above: Result Comment: Elec tronically Signed By: Shamika ISAACS, Kaley Wilson\.david\Date and Time Signed: 02/17/19 12:09 EDT Vital Signs Date Time Vital Sign Value Performing Clinician Facility 09-22-2024 09:37-0500 Body mass index (BMI) [Ratio] 35.85 kg/m2 Immanuel Hilton DO Work Phone: [facility] 09-22-2024 09:37-0500 Body weight 88.91 kg Immanuel Yobani DO Work Phone: [facility] 09-22-2024 09:37-0500 Diastolic blood pressure 70 mm[Hg] Immanuel Yobani DO Work Phone: [facility] 09-22-2024 09:37-0500 Systolic blood pressure 120 mm[Hg] Immanuel Yobani DO Work Phone: [facility] 09-08-2024 08:28-0500 Body mass index (BMI) [Ratio] 35.56 kg/m2 Immanuel Yobani DO Work Phone: [facility] 09-08-2024 08:28-0500 Body weight 88.18 kg Immanuel Yobani DO Work Phone: [facility] 09-08-2024 08:28-0500 Diastolic blood pressure 90 mm[Hg] Immanuel Yobani DO Work Phone: [facility] 09-08-2024 08:28-0500 Systolic blood pressure 132 mm[Hg] Immanuel Yobani DO Work Phone: [facility] 08-27-2024 11:45-0500 Body mass index (BMI) [Ratio] 35.08 kg/m2 Immanuel Yobani DO Work Phone: [facility] 08-27-2024 11:45-0500 Body weight 87 kg Immanuel Yobani DO Work Phone: [facility] 08-27-2024 11:45-0500 Diastolic blood pressure 82 mm[Hg] Immanuel Yobani DO Work Phone: [facility] 08-27-2024 11:45-0500 Systolic blood pressure 122 mm[Hg] Immanuel Yobani DO Work Phone: [facility] 08-12-2024 11:08-0500 Body mass index (BMI) [Ratio] 34.93 kg/m2 Immaunel Yobani DO Work Phone: [facility] 08-12-2024 11:08-0500 Body weight 86.64 kg Immanuel Yobani DO Work Phone: [facility] 08-12-2024 11:08-0500 Diastolic blood pressure 80 mm[Hg] Immanuel Yobani DO Work Phone: [facility] 08-12-2024 11:08-0500 Systolic blood pressure 120 mm[Hg] Immanuel Yobani DO Work Phone: [facility] 07-20-2024 11:00-0500 Body mass index (BMI) [Ratio] 34.39 kg/m2 Immanuel Yobani DO Work Phone: [facility] 07-20-2024 11:00-0500 Body weight 85.28 kg Immanuel Yobani DO Work Phone: [facility] 07-20-2024 11:00-0500 Diastolic blood pressure 76 mm[Hg] Immanuel Yobani DO Work Phone: [facility] 07-20-2024 11:00-0500 Systolic blood pressure 122 mm[Hg] Immanuel Yobani DO Work Phone: [facility] 06-22-2024 14:31-0500 Body mass index (BMI) [Ratio] 34.2 kg/m2 Immanuel Yobani DO Work Phone: [facility] 06-22-2024 14:31-0500 Body weight 84.82 kg Immanuel Yobani DO Work Phone: [facility] 06-22-2024 14:31-0500 Diastolic blood pressure 78 mm[Hg] Immanuel Yobani DO Work Phone: [facility] 06-22-2024 14:31-0500 Systolic blood pressure 124 mm[Hg] Immanuel Yobani DO Work Phone: [facility] 06-15-2024 10:27-0500 Body weight 84.82 kg Cele Rodriguez MD Work Phone: [facility] 06-15-2024 10:27-0500 Diastolic blood pressure 88 mm[Hg] Cele Rodriguez MD Work Phone: [facility] 06-15-2024 10:27-0500 Heart rate 99 /min Cele Rodriguez MD Work Phone: [facility] 06-15-2024 10:27-0500 Respiratory rate 18 /min Cele Rodriguez MD Work Phone: [facility] 06-15-2024 10:27-0500 Systolic blood pressure 137 mm[Hg] Cele Rodriguez MD Work Phone: [facility] 05-25-2024 11:46-0400 Body mass index (BMI) [Ratio] 33.84 kg/m2 Immanuel Yobani DO Work Phone: [facility] 05-25-2024 11:46-0400 Body weight 83.92 kg Immanuel Yobani DO Work Phone: [facility] 05-25-2024 11:46-0400 Diastolic blood pressure 74 mm[Hg] Immanuel Yobani DO Work Phone: [facility] 05-25-2024 11:46-0400 Systolic blood pressure 118 mm[Hg] Immanuel Yobani DO Work Phone: [facility] 04-27-2024 10:35-0400 Body mass index (BMI) [Ratio] 33.75 kg/m2 Immanuel Yobani DO Work Phone: [facility] 04-27-2024 10:35-0400 Body weight 83.69 kg Immanuel Yobani DO Work Phone: [facility] 04-27-2024 10:35-0400 Diastolic blood pressure 76 mm[Hg] Immanuel Yobani DO Work Phone: [facility] 04-27-2024 10:35-0400 Systolic blood pressure 122 mm[Hg] Immanuel Yobani DO Work Phone: [facility] 03-27-2024 10:27-0400 Body mass index (BMI) [Ratio] 34.53 kg/m2 [facility] 03-27-2024 10:27-0400 Body weight 85.64 kg [facility] 03-27-2024 10:27-0400 Diastolic blood pressure 70 mm[Hg] [facility] Nurse [facility] 03-27-2024 10:27-0400 Systolic blood pressure 120 mm[Hg] [facility] 01-02-2024 09:15-0400 Body height 157.48 cm [facility] 01-02-2024 09:15-0400 Body mass index (BMI) [Ratio] 33.9 kg/m2 [facility] 01-02-2024 09:15-0400 Body temperature 100.2 [degF] [facility] 01-02-2024 09:15-0400 Body weight 84.08 kg [facility] 01-02-2024 09:15-0400 Heart rate 115 /min [facility] 01-02-2024 09:15-0400 Respiratory rate 18 /min [facility] 01-02-2024 09:15-0400 SaO2% (BldA) [Mass fraction] 99 % [facility] Encounters Encounter Date Encounter Type Care Provider Facility Start: 09-23-2024 End: 09-23-2024 Clinisync Result Encounter Immanuel Yobani DO Work Phone: [facility] Unsolicited Start: 09-23-2024 End: 09-23-2024 Clinisync Result Encounter Immanuel Yobani DO Work Phone: [facility] External [facility] Unsolicited Start: 09-22-2024 End: 09-22-2024 Bamboo flowsheet Immanuel Yobani DO Work Phone: [facility] Start: 09-22-2024 End: 09-22-2024 Bamboo flowsheet Immanuel Yobani DO Work Phone: [facility] Start: 09-22-2024 End: 09-22-2024 Clinisync Result Encounter Immanuel Yobani DO Work Phone: [facility] External [facility] Unsolicited Start: 09-22-2024 End: 09-22-2024 flow sheet Immanuel Yobani DO Work Phone: [facility] Comment on above: 35 weeks gestation o f ; Third trimester Start: 09-22-2024 End: 09-22-2024 ambulatory IMMANUEL YOBANI Not Available Start: 09-20-2024 End: 09-20-2024 ambulatory NON STAFF Facility:[facility] Start: 09-20-2024 Non-patient / Non-visit [facility] Work Phone: Start: 09-16-2024 [...] Department Unsolicited Start: 09-12-2024 Non-patient / Non-visit [facility] Work Phone: Start: 09-09-2024 End: 09-09-2024 Clinisync Result Encounter Immanuel Yobani DO Work Phone: [facility] External [facility] Unsolicited Start: 09-09-2024 End: 09-09-2024 Clinisync Result Encounter Immaneul Yobani DO Work Phone: [facility] External Department Unsolicited Start: 09-09-2024 Non-patient / Non-visit [facility] Work Phone: Start: 09-08-2024 [...] flow sheet Immanuel Yobani DO Work Phone: [facility] Comment on above: 29 weeks gestation o f ; Third trimester ; Gestational diabetes mellitus (GDM), antepartum, gestational diabetes method of control unspecified; Encounter for in vitro fertilization Start: 08-12-2024 End: 08-12-2024 ambulatory IMMANUEL YOBANI Not Available Start: 08-05-2024 End: 08-05-2024 Clinisync Result Encounter Immanuel Yobani DO Work Phone: [facility] External Department Unsolicited Start: 08-05-2024 End: 08-05-2024 Clinisync Result Encounter Immanuel Yobani DO Work Phone: [facility] External Department Unsolicited Start: 08-05-2024 Non-patient / Non-visit [facility] Work Phone: Start: 07-20-2024 End: 07-20-2024 Bamboo flowsheet Immanuel Yobani DO Work Phone: [facility] Start: 07-20-2024 End: 07-20-2024 Bamboo flowsheet Immanuel Yobani DO Work Phone: [facility] Start: 07-20-2024 End: 07-20-2024 flow sheet Immanuel Yobani DO Work Phone: [facility] Comment on above: 26 weeks gestation o f ; Diabetes mellitus screening; Second trimester ; PCOS (polycystic ovarian syndrome); resulting from in vitro fertilization, antepartum; Gestational diabetes mellitus (GDM), antepartum, gestational diabetes method of control unspecified; Elevated glucose tolerance test Start: 07-20-2024 End: 07-20-2024 ambulatory IMMANUEL YOBANI Not Available Start: 06-29-2024 Non-patient / Non-visit [facility] Work Phone: Start: 06-22-2024 End: [...] Cele Rodriguez MD Work Phone: [facility] [place] Comment on above: 21 weeks gestation o f (Primary Dx); Chronic hypertension affecting ; In vitro fertilization Start: 06-15-2024 End: 06-15-2024 ambulatory PIEDAD Johnathon RODRIGUEZ [facility] Start: 05-28-2024 End: 05-30-2024 Clinisync Result Encounter Immanuel Yobani DO Work Phone: [facility] Unsolicited Start: 05-28-2024 End: 05-30-2024 Clinisync Result Encounter Immanuel Yobani DO Work Phone: [facility] Unsolicited Start: 05-27-2024 End: 05-27-2024 Chart abstracting Cele Rodriguez MD Work Phone: [facility] Start: 05-25-2024 End: 05-25-2024 Bamboo [...] End: 01-02-2024 Patient encounter procedure [facility] [...] End: 05-18-[address] IMMANUEL [place] . Facility: Start: 04-28-2022 End: 04-29-[address] IMMANUEL [place] . Facility: Start: 04-04-2022 End: 04-05-[address] IMMANUEL [place] . Facility: Procedures Date Procedure Procedure Detail Performing Clinician Start: 09-23-2024 US OB BPP W NON-STRESS Immanuel Yobani DO Work Phone: Start: 09-22-2024 TBH TOTAL PROTEIN 24 HOUR URINE Immanuel Yobani DO Work Phone: Start: 09-22-2024 Urnls dip stick/tabl et rgnt [...] 04-08-2024 ALL CBC WITH AUTO DIFF Immanuel Hilton DO Work Phone: Start: 03-27-2024 Urnls dip stick/tabl et rgnt non-auto w/o micrscp Immanuel Yobani DO Work Phone: Plan of Treatment Date Care Activity Detail Author Start: 05-25-2027 Screening for malign ant neoplasm of cervix Pap Smear [facility] Start: 06-15-2025 Tobacco Screening Tobacco Screening [facility] Start: 09-29-2024 End: 09-29-2024 Patient encounter procedure 09/29/2024 11:20 AM EST Routine [facility] [address] [place] [address] Immanuel Hilton, DO [address] [place] [address] [facility] Start: 09-22-2024 End: 09-22-2025 CULTURE, GROUP B STREP WITH SUSCEPTIBLITY CULTURE, GROUP B STREP WITH SUSCEPTIBLITY Lab Routine Third trimester Expected: 09/22/2024, Expires: 09/22/2025 [facility] Work Phone: Comment on above: Expected: 09/22/2024 , Expires: 09/22/2025 Start: 09-22-2024 End: 09-22-2024 Patient encounter procedure [facility] Comment on above: Arrived Start: 09-20-2024 Urine culture [facility] Start: 09-08-2024 End: 09-08-2025 Alanine aminotransferase [Enzymatic activity/volume] in Serum or Plasma ALT Lab Routine induced hypertension, antepartum Expected: 09/08/2024 (Approximate), Expires: 09/08/2025 [facility] Comment on above: Expected: 09/08/2024 (Approximate), Expires: 09/08/2025 Start: 09-08-2024 End: 09-08-2025 Aspartate aminotransferase [Enzymatic activity/volume] in Serum or Plasma AST Lab Routine induced hypertension, antepartum Expected: 09/08/2024 (Approximate), Expires: 09/08/2025 [facility] Comment on above: Expected: 09/08/2024 (Approximate), Expires: 09/08/2025 Start: 09-08-2024 End: 09-08-2025 CBC W Auto Differential panel - Blood CBC and differential Lab Routine induced hypertension, antepartum Expected: 09/08/2024 (Approximate), Expires: 09/08/2025 [facility] Comment on above: Expected: 09/08/2024 (Approximate), Expires: 09/08/2025 Start: 09-08-2024 End: 09-08-2025 Creatinine [Mass/volume] in Serum or Plasma Creatinine Lab Routine induced hypertension, antepartum Expected: 09/08/2024 (Approximate), Expires: 09/08/2025 [facility] Work Phone: Comment on above: Expected: 09/08/2024 (Approximate), Expires: 09/08/2025 Start: 09-08-2024 End: 09-08-2025 Lactate dehydrogenase [Enzymatic activity/volume] in Serum or Plasma by Lactate to pyruvate reaction Lactate dehydrogenase Lab Routine induced hypertension, antepartum Expected: 09/08/2024, Expires: 09/08/2025 [facility] Comment on above: Expected: 09/08/2024 , Expires: 09/08/2025 Start: 09-08-2024 End: 09-08-2025 Protein, urine, 24 hour Protein, urine, 24 hour Lab Routine induced hypertension, antepartum Expected: 09/08/2024 (Approximate), Expires: 09/08/2025 [facility] Comment on above: Expected: 09/08/2024 (Approximate), Expires: 09/08/2025 Start: 09-08-2024 End: 09-08-2025 Pt and ptt Pt and ptt Lab Routine induced hypertension, antepartum Expected: 09/08/2024, Expires: 09/08/2025 [facility] Comment on above: Expected: 09/08/2024 , Expires: [...] AM EST Routine [facility] [address] [place] [id number] Immanuel Hilton, DO [address], [place] [address] [facility] Start: 08-27-2024 End: 08-27-2024 Professional / ancillary services management 08/27/2024 11:00 AM EST Ancillary Procedure [facility] [address] [place] [id number] [facility] Start: 08-12-2024 End: 08-12-2025 [...] mellitus screening Expected: 07/20/2024 (Approximate), Expires: 07/20/2025 [facility] Work Phone: Comment on above: Expected: 07/20/2024 (Approximate), Expires: 07/20/2025 Start: 07-20-2024 End: 07-20-2025 Measurement of glucose 1 hour after glucose challenge for glucose tolerance test Glucose tolerance, 1 hour Lab Routine 26 weeks gestation of Diabetes mellitus screening Expected: 07/20/2024 (Approximate), Expires: 07/20/2025 [facility] Comment on above: Expected: 07/20/2024 (Approximate), Expires: 07/20/2025 Start: 07-20-2024 End: 07-20-2025 US for US OB SCAN FOR GROWTH Imaging Routine PCOS (polycystic ovarian syndrome) resulting from in vitro fertilization, antepartum Expected: 07/20/2024 (Approximate), Expires: 07/20/2025 [facility] Comment on above: Expected: 07/20/2024 (Approximate), Expires: 07/20/2025 Start: 07-20-2024 End: 07-20-2024 Patient encounter procedure [facility] Comment on above: 26 weeks gestation o f ; Diabetes mellitus screening Start: 06-22-2024 End: 06-22-2025 ECG 12 lead ECG 12 lead ECG Routine Personal history of cardiac murmur Expected: 06/22/2024 (Approximate), Expires: 06/22/2025 [facility] Work Phone: Comment on above: Expected: 06/22/2024 (Approximate), Expires: 06/22/2025 Start: 06-22-2024 End: 06-22-2024 Patient encounter procedure [facility] Comment on above: Arrived Start: 06-15-2024 End: 06-15-2024 Patient encounter procedure [facility] [place] Start: 05-25-2024 End: 11-23-2024 Alpha fetoprotein, maternal Alpha fetoprotein, maternal Lab Routine Second trimester Expected: 05/25/2024 (Approximate), Expires: 11/23/2024 [facility] Comment on above: Expected: 05/25/2024 (Approximate), Expires: 11/23/2024 Start: 05-25-2024 End: 05-25-2024 Patient encounter procedure [facility] Comment on above: Arrived Start: 05-05-2024 End: 05-05-2024 Professional / ancillary services management 05/05/2024 2:30 PM EDT Ancillary Procedure [facility] [address] [id number] [facility] Start: 04-27-2024 End: 04-27-2025 US Pelvis transvaginal US OB transvaginal Imaging Routine Encounter for screening for cervical length Expected: 04/27/2024 (Approximate), Expires: 04/27/2025 [facility] Work Phone: Comment on above: Expected: 04/27/2024 (Approximate), Expires: 04/27/2025 Start: 04-27-2024 End: 04-27-2024 Patient encounter procedure 04/27/2024 10:20 AM EDT Routine [facility] [address] [id number] Immanuel Hilton, DO [address] [place] [address] [facility] Start: 03-29-2024 COVID-19 Vaccine ( season) COVID-19 Vaccine ( season) [facility] Start: 03-29-2024 Influenza vaccination [facility] Start: 03-27-2024 End: 03-27-2025 ABO/Rh ABO/Rh Lab Routine Missed menses Expected: 03/27/2024 (Approximate), Expires: 03/27/2025 [facility] Comment on above: Expected: 03/27/2024 (Approximate), Expires: 03/27/2025 Start: 03-27-2024 End: 03-27-2025 Blood type and Indirect antibody screen panel - Blood Type and screen Lab Routine Missed menses Expected: 03/27/2024 (Approximate), Expires: 03/27/2025 [facility] Work Phone: Comment on above: Expected: 03/27/2024 (Approximate), Expires: 03/27/2025 Start: 03-27-2024 End: 03-27-2025 US Pelvis transvaginal US OB transvaginal Imaging Routine Missed menses Expected: 03/27/2024 (Approximate), Expires: 03/27/2025 [facility] Comment on above: Expected: 03/27/2024 (Approximate), Expires: 03/27/2025 Start: 2020 Screening for malign ant neoplasm of cervix Pap Smear [facility] Start: 2018 DTaP,Tdap and Td Vac cines (1 - Tdap) DTaP,Tdap and Td Vaccines (1 - Tdap) [facility] Start: 2017 Adult BMI Screening Adult BMI Screen ing [facility] Start: 2011 Depression Screening Depression Scre ening [facility] Start: 2011 Tobacco Screening Tobacco Screening [facility] Start: 1999 Screening for Chlamy leoncio trachomatis Chlamydia Screening [facility] Bacteria identified in Urine by Culture Urine culture Microbiology Routine Missed menses Ordered: 03/27/2024 [facility] Comment on above: Ordered: 03/27/2024 CBC W Auto Different ial panel - Blood CBC and differential Lab Routine Missed menses Ordered: 03/27/2024 [facility] Comment on above: Ordered: 03/27/2024 CHLAMYDIA TRACHOMATI S (GENITO/STI) CHLAMYDIA TRACHOMATIS (GENITO/STI) Lab Routine STD exposure Ordered: 05/25/2024 [facility] Comment on above: Ordered: 05/25/2024 Cytology Cervical or vaginal smear or scraping study Pap Smear Pathology and Cytology Routine Well woman exam with routine gynecological exam Ordered: 05/25/2024 [facility] Work Phone: Comment on above: Ordered: 05/25/2024 Hemoglobin A1c/Hemoglobin.total in Blood Hemoglobin A1c Lab Routine Missed menses Ordered: 03/27/2024 [facility] Comment on above: Ordered: 03/27/2024 Hepatitis B virus love rface Ag [Presence] in Serum or Plasma by Immunoassay Hepatitis B surface antigen Lab Routine Missed menses Ordered: 03/27/2024 [facility] Comment on above: Ordered: 03/27/2024 Hepatitis C virus Ab [Presence] in Serum or Plasma by Immunoassay Hepatitis C antibody Lab Routine Missed menses Ordered: 03/27/2024 [facility] Comment on above: Ordered: 03/27/2024 HIV-1/HIV-2 antigen/antibody combination immunoassay HIV-1 and HIV-2 antibodies Lab Routine Missed menses Ordered: 03/27/2024 [facility] Comment on above: Ordered: 03/27/2024 Neisseria gonorrhoea e DNA [Presence] in Unspecified specimen by BUCK with probe detection Neisseria gonorrhea DNA probe, direct Lab Routine STD exposure Ordered: 05/25/2024 [facility] Comment on above: Ordered: 05/25/2024 Reagin Ab [Presence] in Serum by RPR RPR Lab Routine Missed menses Ordered: 03/27/2024 [facility] Comment on above: Ordered: 03/27/2024 Rubella antibody, IgG Rubella an tibody, IgG Lab Routine Missed menses Ordered: 03/27/2024 [facility] Comment on above: Ordered: 03/27/2024 SURESWAB(R) ADVANCED VAGINITIS PLUS, TMA SURESWAB(R) ADVANCED VAGINITIS PLUS, TMA Pathology and Cytology Routine Vaginal discharge Ordered: 05/25/2024 [facility] Comment on above: Ordered: 05/25/2024 Payers Date Payer Category Payer Self-pay 2023 [employer] - P[employer] [id number] 2023 [facility] er [id number] 2023 Unknown [id number] 2021 Private Health Insurance [id number] 2021 Unknown [id number]. [id number]. [id number] 2021 Unknown [id number] 1999 Unknown [id number] 2.16.840.1.738414.3.579.2. 593 1999 Unknown [id number] 2.16.840.1.649783.3.579.2. 593 1999 Unknown [id number] 2.16.840.1.982081.3.579.2. 593 1999 Unknown [id number] 2.16.840.1.431866.3.579.2. 593 1999 Unknown [id number] 2.16.840.1.042360.3.579.2. 593 1999 Unknown [id number] 2.16.840.1.460943.3.579.2. 593 1999 Unknown [id number] 2.16.840.1.852854.3.579.2. 593 1999 Unknown [id number] 2.16.840.1.153534.3.579.2. 1286 1999 Unknown [id number] 2.16.840.1.499715.3.579.2. 1286 1999 Unknown [id number] 2.16.840.1.309301.3.579.2. 1259 1999 Unknown [id number] 2.16.840.1.355522.3.579.2. 1258 1999 Unknown [id number] 2.16.840.1.853296.3.579.2. 1258 1999 Unknown [id number] 2.16.840.1.123474.3.579.2. 125 1999 Unknown [id number] 2.16.840.1.022006.3.579.2. 1258 1999 Unknown [id number] 2.16.840.1.960317.3.579.2. 1258 1999 Unknown [id number] 2.16.840.1.348448.3.579.2. 1258 1999 Unknown [id number] 2.16.840.1.006978.3.579.2. 125 1999 Unknown [id number] 2.16.840.1.006272.3.579.2. 125 1999 Unknown [id number] 2.16.840.1.245314.3.579.2. 1258 1999 Unknown [id number] 2.16.840.1.470059.3.579.2. 1258 1999 Unknown [id number] 2.16.840.1.271978.3.579.2. 1259 1959 Private Health Insurance [id number] 1959 Unknown [id number] Unknown [id number] 2.16.840.1.764349.3.579.2. 531 Social History Date Type Detail Facility [facility] Work Phone: Start: 2000 Sex Assigned At Female F [facility] Start: 01-02-2024 End: 05-27-2024 Tobacco smoking status NHIS Never smoked tobacco [facility] Start: 01-02-2024 End: 05-27-2024 Tobacco use and exposure Smokeless tobacco non-user [facility] Start: 04-27-2024 End: 09-22-2024 Alcoholic beverage intake Ex-drinker (finding) [facility] Start: 01-02-2024 End: 06-15-2024 History of Social function [facility] Start: 01-02-2024 End: 06-15-2024 Tobacco use panel [facility] Start: 01-29-2024 [facility] Start: 11-26-2023 Gender identity Identifies as female gender (finding) [facility] Start: 05-27-2024 End: 06-15-2024 Alcoholic beverage intake Lifetime non-drinker (finding) [facility] Start: 2000 Sex assigned at Not on file P [facility] Start: 05-26-2024 End: 09-22-2024 Sex Female (finding) [facility] smoked [facility] Work Phone: Medical Equipment Procedure Code Equipment Code Equipment Origin al Text Equipment Identifier Dates 1 strip by In Vi tro route Daily Use in the morning prior to breakfast, 1 hour after each meal for a total of 4times daily. [id number] Start: 07-20-2024 End: 08-19-2024 1 each by In Vit ro route Daily Use to check FSBS four times daily [id number] Start: 07-20-2024 End: 08-19-2024 Goals Date Patient Goal Desired Activity /State Personal health goal Clinical Notes 03-27-2024 to 09-22-2024 Chika Tracy LINE CONTROLLER - 09/22/2024 9:20 AM Donell Tracy, [facility] - 09/08/2024 8:30 AM Gautam Peter, [facility] - 08/27/2024 11:40 AM Donell Tracy, [facility] - 08/12/2024 11:10 AM EST Note Date [...] apply, As needed Blood Glucose Monitoring Suppl (D-ReTargeter Glucometer) w/Device kit 1 kit, Does not apply, Daily, Use four times daily to check FSBS. In the morning prior to breakfast & 1 hour after each meal for a total of 4times daily. Continuous Glucose Business Planning Analyst (Free[employer] Jenise 3 Elton) device 1 each, Does not apply, Every 14 days Continuous Glucose Sensor (FreeStyle Jenise 3 Sensor) misc 1 each, Does not apply, Every 14 days labetalol (NORMODYNE) 100 mg, Oral, 2 times daily Multiple Vitamin (multivitamin) tablet 1 tablet, Daily ondansetron (ZOFRAN) 4 mg, Every 8 hours PRN ALLERGIES Allergies Allergen Reactions [place] Flavor [[place] Oil] Latex Hives, Itching, Rash and Swelling [...] nursing note reviewed. Exam conducted with a air box tester present. Vitals: Estimated body mass index is [...] Immanuel Hilton DO documented in this encounter [facility] 09-08-2024 History of Present illness Narrative Reason [...] apply, As needed Blood Glucose Monitoring Suppl (D-ReTargeter Glucometer) w/Device kit 1 kit, Does not apply, Daily, Use four times daily to check FSBS. In the morning prior to breakfast & 1 hour after each meal for a total of 4times daily. Continuous Glucose Business Planning Analyst (FreeStyle Jenise 3 Elton) device 1 each, Does not apply, Every 14 days Continuous Glucose Sensor (FreeStyle Jenise 3 Sensor) misc 1 each, Does not apply, Every 14 days Multiple Vitamin (multivitamin) tablet 1 tablet, Daily terconazole (Terazol 7) 0.4 % vaginal cream 1 applicator, Vaginal, Nightly ALLERGIES Allergies Allergen Reactions [place] Flavor [[place] Oil] Latex Hives, Itching, Rash and Swelling [...] nursing note reviewed. Exam conducted with a air box tester present. Vitals: Estimated body mass index is [...] Immanuel Hilton DO documented in this encounter [facility] 08-27-2024 History of Present illness [...] apply, As needed Blood Glucose Monitoring Suppl (D-ReTargeter Glucometer) w/Device kit 1 kit, Does not apply, Daily, Use four times daily to check FSBS. In the morning prior to breakfast & 1 hour after each meal for a total of 4times daily. Continuous Glucose Business Planning Analyst (FreeStyle Jenise 3 Elton) device 1 each, Does not apply, Every 14 days Continuous Glucose Sensor (FreeStyle Jenise 3 Sensor) misc 1 each, Does not apply, Every 14 days metroNIDAZOLE (FLAGYL) 500 mg, Oral, 2 times daily, Do not drink alcohol while taking this medication Multiple Vitamin (multivitamin) tablet 1 tablet, Daily ALLERGIES Allergies Allergen Reactions [place] Flavor [[place] Oil] Latex Hives, Itching, Rash and Swelling [...] nursing note reviewed. Exam conducted with a air box tester present. Vitals: Estimated body mass index is [...] from yesterday. Patients insurance did finally approve [employer] Jenise and patient is waiting for monitor [...] Immanuel Hilton DO documented in this encounter [facility] 08-12-2024 History of Present illness [...] apply, As needed Blood Glucose Monitoring Suppl (D-ReTargeter Glucometer) w/Device kit 1 kit, Does not [...] 1 tablet, Daily ALLERGIES Allergies Allergen Reactions [place] Flavor [[place] Oil] Latex Hives, Itching, Rash and Swelling [...] nursing note reviewed. Exam conducted with a air box tester present. Vitals: Estimated body mass index is [...] Immanuel Hilton DO documented in this encounter [facility] 07-20-2024 History of Present illness [...] mg, Oral, Daily ALLERGIES Allergies Allergen Reactions [place] Flavor [[place] Oil] Latex Hives, Itching, Rash and Swelling [...] Immanuel Hilton DO documented in this encounter [facility] 06-22-2024 History of Present illness [...] mg, Oral, Daily ALLERGIES Allergies Allergen Reactions [place] Flavor [[place] Oil] Latex Hives, Itching, Rash and Swelling [...] Immanuel Hilton DO documented in this encounter [facility] 06-15-2024 History of Present illness [...] Allergies: Allergies Allergen Reactions Latex, Natural Rubber [place] Meds: Prior to Admission medications Medication Sig [...] other morbidities. Based on the available evidence, [facility] recommends treatment with antihypertensive therapy for [...] preeclampsia prevention as is recommended by the [place] [employer] Committee Opinion No. 743. [...] Cele Rodriguez MD, FACOG (she/hers) Maternal- Medicine [facility] [address] [place] [address] This document was created with [employer] technology. Though I make every effort to review the dictation as it is transcribed, on occasion the spoken word can be misinterpreted by the technology leading to inappropriate words, phrases, or sentences. This note is addressed to the requesting provider as a consultation for clinical guidance. Specific medical abbreviations are occasionally used and those are generally approved by the [place]?Board of?Obstetrics and?Gynecology?as well as?Kenzie croft abbreviations. The above plan of care was based solely on the diagnoses for which a consultation was requested. ?More frequent testing may be indicated based on her other medical/obstetrical conditions. The management of other or medical conditions is beyond the scope of requested consultation and will continue to be followed by the primary head up operator or primary care provider. Note to [...] IVF Have you been seen here at [facility] [facility] in a previous ? N/a Recent ER visits or hospitalizations? no Bring blood sugar log or meter with you today? (Please bring them with you for every visit at [facility]) no Flu vaccine (May-September)? no Any concerns that you would like me to mention to the provider today? no documented in this encounter [facility] 05-25-2024 History of Present illness Narrative Reason [...] mg, Oral, Daily ALLERGIES Allergies Allergen Reactions [place] Flavor [[place] Oil] Latex Hives, Itching, Rash and Swelling [...] nursing note reviewed. Exam conducted with a air box tester present. Vitals: Estimated body mass index is [...] Immanuel Hilton DO documented in this encounter [facility] 04-27-2024 History of Present illness [...] mg, Oral, Daily ALLERGIES Allergies Allergen Reactions [place] Flavor [[place] Oil] Latex Hives, Itching, Rash and Swelling [...] nursing note reviewed. Exam conducted with a air box tester present. Vitals: Estimated body mass index is [...] IVF . Patient to also have [facility] referral for IVF and Level [...] undercooked meat, and stay away from [facility]. Patient has been consulted regarding any further do's and don'ts of . Patient voiced understanding and all questions and concerns were answered. Orders Placed This Encounter Procedures POCT urinalysis dipstick manually resulted Follow Up: Patient is to return in 4 weeks for routine OB appointment. Documented by Esperanza Peter LPN on behalf of: Immanuel Hilton DO documented in this encounter [facility] 03-27-2024 History of Present illness [...] Procedure Laterality Date TONSILLECTOMY Allergies Allergen Reactions [place] Flavor [[place] Oil] Latex Hives, Itching, Rash and Swelling [...] undercooked meat, and stay away from [facility]. Patient has also been advised to [...] Evaluation note No assessment inform ation available [facility] Work Phone: Evaluation note Diagnosis [...] fertility procedure cycle documented in this encounter [facility] System[facility]* Diagnosis 35 weeks gestation of Third trimester state, incidental documented in this encounter [facility] HealthcareInstructionsNot on filedocumented in this [facility] SystemInstructionsNot on filedocumented in this encounterPro[facility] SystemInstructions* Attachments The following attachments cannot be sent through Care Everywhere. * Preeclampsia (Spanish) [facility] Summary Purpose Family History No Family History Records Found Relationship Condition Age at Onset Recorded Date/T [place] family member Unknown Heart disease Unknown Relationship Condition Age at Onset Recorded Date/T y[place] aunt Unknown Heart disease Unknown Advance Directives No Advanced Directives Records Found Advance Directive Response Recorded Date/ Time Advance Directives No January 01 9:07am Advance Directive Response Recorded Date/ Time Advance Directives No January 01 8:07am Chief Complaint and Reason for Visit Chief Complaint Congestion Additional Source Comments INFORMATION SOURCE (unrecogn ized section and content) DATE CREATED AUTHOR 03/06/2019 [facility] DATE CREATED AUTHOR AUTHOR'S ORGANIZ ATION 12/21/2021 [facility] DATE CREATED AUTHOR AUTHOR'S ORGANIZ ATION 12/01/2022 [facility] DATE CREATED AUTHOR AUTHOR'S ORGANIZ ATION 06/17/2024 [facility] DATE CREATED AUTHOR AUTHOR'S ORGANIZ ATION 09/23/2024 [facility] DATE CREATED AUTHOR AUTHOR'S ORGANIZ ATION 09/25/2024 [facility] Care Teams (unrecognized sec tion and content) Team Status: Active Member Role Status Dates Damon Stover DO Primary Care Provider Active Team Status: Inactive Member Role Status Dates Damon Stover , Primary Care Provider Active Start: January 02, 2024 End: January 02, 2024 Teresa Sanchez APRN Attending Provider Active S tart: January 02, 2024 End: January 02, 2024 Business Resiliency Manager Relationship Specialty Start Date End Date Akila Grant MD [address] [place] [address] PCP - General Family Medicine 11/27/23 Business Resiliency Manager Relationship Specialty Start Date End Date Akila Grant MD [address] [place] [address] PCP - General Family Medicine 11/27/23 Business Resiliency Manager Relationship Specialty Start Date End Date Akila Grant MD [address] [place] [address] PCP - General Family Medicine 11/27/23 Business Resiliency Manager Relationship Specialty Start Date End Date Akila Grant MD [address] [place] [address] PCP - General Family Medicine 11/27/23 Business Resiliency Manager Relationship Specialty Start Date End Date Akila Grant MD [address] [facility] [place] [address] PCP - General Family Medicine 11/27/23 Business Resiliency Manager Relationship Specialty Start Date End Date Akila Grant MD [address] [facility] [place] [address] PCP - General Family Medicine 11/27/23 Business Resiliency Manager Relationship Specialty Start Date End Date Akila Grant MD [address] [facility] [place] [address] PCP - General Family Medicine 11/27/23 Business Resiliency Manager Relationship Specialty Start Date End Date Akila Grant MD [address] [facility] [place] [address] PCP - General Family Medicine 11/27/23 Business Resiliency Manager Relationship Specialty Start Date End Date Akila Grant MD [address] [facility] [place] [address] PCP - General Family Medicine 11/27/23 Business Resiliency Manager Relationship Specialty Start Date End Date Akila Grant MD [address] [facility] [place] [address] PCP - General Family Medicine 11/27/23 Business Resiliency Manager Relationship Specialty Start Date End Date Akila Grant MD [address] [facility] [place] [address] PCP - General Family Medicine 11/27/23 Business Resiliency Manager Relationship Specialty Start Date End Date Akila Grant MD [address] [place] [facility] [place] [address] PCP - General Family Medicine 11/27/23 Business Resiliency Manager Relationship Specialty Start Date End Date Akila Grant MD [address] [facility] [place] [address] PCP - General Family Medicine 11/27/23 Business Resiliency Manager Relationship Specialty Start Date End Date Akila Grant MD [address] [facility] [place] [address] PCP - General Family Medicine 11/27/23 Business Resiliency Manager Relationship Specialty Start Date End Date Akila Grant MD [address] [facility] [place] [address] PCP - General Family Medicine 11/27/23 Business Resiliency Manager Relationship Specialty Start Date End Date Akila Grant MD [address] [facility] [place] [address] PCP - General Family Medicine 11/27/23 Team Status: Active Member Role Status Dates Damon Stover DO Primary Care Provider Active Start: June 29, 2024 Chad Murcia DO Attending Provider Active Sta rt: June 29, 2024 Team Status: Active Member Role Status Dates Damon Stover DO Primary Care Provider Active Start: August 05, 2024 Immanuel Hilton DO Attending Provider Active Start : August 05, 2024 Team Status: Active Member Role Status Dates Damon Stover DO Primary Care Provider Active Start: September 09, 2024 Immanuel Hilton DO Attending Provider Active Start : September 09, 2024 Team Status: Active Member Role Status Dates Damon Stover DO Primary Care Provider Active Start: September 12, 2024 Immanuel Yobani , DO Attending Provider Active Start : September 12, 2024 Team Status: Active Member Role Status Dates Damon Croft Ck , Primary Care Provider Active Start: September 20, 2024 Akila Grant MD Attending Provider Active St art: September 20, 2024 Business Resiliency Manager Relationship Specialty Start Date End Date Akila Grant MD [address] [place] [phone] PCP - General Family Medicine 11/27/23 Goals [...] BE BASED ON THE PRIMARY CLINICAL RECORDS. [employer] provides no warranty or guarantee of the accuracy or completeness of information in this document.
[2024-09-26 08:10] VITALS: BP 137/86; PULSE 99
== END 2024-09-26 08:45 | disposition home or self-care (01) ==
LOC: FBCO 00:25 → FBC 07:58
PROVIDERS: PCP Family Medicine; Visit Provider Obstetrics & Gynecology
DX: O24.419 Gestational diabetes mellitus in pregnancy, unspecified control (principal); Z3A.36 36 weeks gestation of pregnancy
CPT/HCPCS: 59025

== ENCOUNTER 2024-09-30 01:28 | Outpatient (OUT) | payer OTHER, BC, SELFPAY ==
--- NOTE | 2024-09-30 | US_ITS ---
[address] [address] Patient Name: ANNA MARIO MRN: [id number] date: 2000 Sex: F Assigned Patient Location: [facility] Current Patient Location: Accession/Order Number: [id number] Exam Date: 09/30/2024 22:21 Report Date: 09/30/2024 22:24 At the request of: LUIS DOTY DO Procedure: US OB BPP w non-stress Biophysical profile. Reason for exam: Gestational diabetes. COMPARISON: BDP 09/23/2024. TECHNIQUE: Transabdominal imaging of the gravid uterus was obtained. FINDINGS: The technologist reports a BPP of 8 out of 8. CAPRICE is normal at 12.1 cm. heart rate 1 64 bpm. US/US OB BPP w non-stress IMPRESSION: BPP 8 out of 8. Impression dictated by: Juliano Johnston Jr., D.O.09/30/2024 10:24 PM Dictation Location[facility] Electronically authenticated by: [id number] Y Date: 09/30/2024 22:24
--- OUTSIDE RECORDS SUMMARY | 2024-09-30 01:31 | XMS_ITS | CCD ---
Author Organization [facility] Care Team Providers Care Software Design Analyst Name Role Phone YOBANI ., DR SMITH [...] Grant MD Primary Care Provider IMMANUEL HILTON Referring Unavailable CELE RODRIGUEZ Attending Unavailable IMMANUEL HILTON R Referring Unavailable Unavailable Primary Care Provider Unavailabl IMMANUEL Cross Referring Unavailable IMMANUEL HILTON Attending Unavailable YOBANI, IMMANUEL Attending Unavailable YOBANI, IMMANUEL Attending Unavailable IMMANUEL HILTON Attending Unavailable JOHNNY FERNANDEZ Attending Unavailable IMMANUEL HILOTN Attending Unavailable YOBANI, IMMANUEL Attending Unavailable YOBANI, IMMANUEL Attending Unavailable YOBANI, IMMANUEL Attending Unavailable YOBANI, IMMANUEL Attending Unavailable NON STAFF Attending Unavailable NON STAFF Admitting Unavailable Allergies Allergy Classification Reported Allergen(s) Allergy Type Date of Onset Reaction(s) Facility (3 sources) Latex Drug allergy (disorder) 0 hives [facility] Repository (1 source) orange flavor Drug allergy (disorder) 0 [facility] Rep[facility] (7 sources) Myra - fruit; Translations: [ORANGE] 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 4 anaphylaxis [facility] (20 sources) Latex 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 4 Hives, Itching, Rash, Swelling [facility] (20 sources) orange allergenic extract Drug Allergy 4 [facility] Work Phone: (1 source) natural latex rubber; Translations: [LATEX, NATURAL RUBBER] Propensity to adverse reactions to drug (disorder) 4 [facility] (1 source) Latex Drug allergy (disorder) 4 [facility] Repository Medications Current Medications Medication Drug [...] 2024 11:00pm aspirin 81 mg chewable tablet (20 sources) Platelet Aggregation Inhibitor, Nonsteroidal Anti-inflammatory Drug [...] MCG/0.5ML injection 11/26/2023 03/27/2024 Discontinued Continuous Glucose Farm Machinery Mechanic (FreeStyle Jenise 3 [place]) device (20 sources) Start: 08-20-2024 Continuous Glucose Farm Machinery Mechanic (FreeStyle Jenise 3 [place]) device Indications: Gestational diabetes mellitus (GDM), antepartum, gestational diabetes method of control unspecified , Third trimester 1 each every 14 (fourteen) days 1 each 3 08/20/2024 Active Continuous Glucose Sensor (FreeStyle Jenise 3 Sensor) misc (20 sources) Start: 08-20-2024 Continuous Glucose Sensor (FreeStyle Jenise 3 Sensor) [facility] [place] Indications: Gestational diabetes mellitus (GDM), antepartum, gestational [...] 11:00pm ondansetron 4 mg disintegrating oral tablet (13 sources) Serotonin-3 Receptor Antagonist Start: 04-13-20 End: [...] [35 weeks gestation of ] 09-22-2024 Episodic Residual codes; unclassified (2 sources) Gestation period, 36 weeks; Translations: [36 weeks gestation of ] 09-29-2024 Episodic Thyroid disorders (1 source) Nontoxic single [...] Range Facility Urinalysis macro (dipstick) panel (U)on 09-29-2024 Bilirubin, UA Negative Negative - 4(70) +++ mg/dL [facility] Blood, UA Negative Negative - 50 Jimy/mcL [facility] Clarity, UA Clear [facility] Color, UA Cynthia [facility] Glucose, UA Negative Negative - 2000(110) ++++ mg/dL [facility] Interpretation and review of laboratory results Normal [facility] Ketones, UA Negative Negative - 160(16) ++++ mg/dL [facility] Leukocytes, UA Negative Negative - 500+++ Mychal/mcL [facility] Nitrite, UA Negative Negative - Positive [facility] pH, UA 7 5 - 9 [facility] Protein, UA Positive Negative - 2000(20) ++++ mg/dL [facility] Comment on above: 30 Spec Grav, UA 1.025 1 - 1.03 [facility] Urobilinogen, UA 1.0 0.2 - 12 mg/dL [facility] US OB BPP W NON-STRESS on 09-23-2024 [place] [address] Ultrasound Report Signed Patient: AMY MARIO MR#: [id number] : 2000 Acct:[id number] Age/Sex: 24 / F ADM Date: 09/23/24 Loc: US Attending Dr: Immanuel Hilton D.O. Ordering Physician: Immanuel Hilton D.O. Date of Service: 09/23/24 Procedure(s): US OB BPP w non-stress Accession Number(s): [id number] cc: Akila Grant M.D.; Immanuel Hilton D.O. [address] [address] Patient Name: AMY MARIO MRN: [facility]:[id number] date: 2000 Sex: F Assigned Patient Location: [facility] Current Patient Location: Accession/Order Number: [id number] Exam Date: 09/23/2024 12:21 Report Date: 09/23/2024 12:23 At the request of: IMMANUEL HILTON DO Procedure: US OB BPP w non-stress BIOPHYSICAL PROFILE: CLINICAL INFORMATION: Gestational diabetes mellitus O24.419 COMPARISON: 09/16/2024 There is a single live intrauterine gestation in cephalic presentation. The reported gestational age is 35 weeks 6 days. The heart rate beats per minute. [...] Chika Holden M.D.09/23/2024 12:23 PM Dictation Location: [place] [address] Electronically authenticated by: [id number] Y Date: 09/23/2024 12:23 Dictated By: Chika Holden M.D. Signed By: 09/23/24 1226 DD/ 1223 TD/TT: Gyn: [facility] Radiology, Radiologist, - 09/23/2024 [place] [address] Ultrasound Report Signed Patient: AMY MARIO MR#: [id number] : 2000 Acct:[id number] Age/Sex: 24 / F ADM Date: 09/23/24 Loc: US Attending Dr: Immanuel Hilton D.O. Ordering Physician: Immanuel Hilton D.O. Date of Service: 09/23/24 Procedure(s): US OB BPP w non-stress Accession Number(s): [id number] cc: Akila Grant M.D.; Immanuel Hilton D.O. [place] [id number] Patient Name: AMY MARIO MRN: [facility]:[id number] date: 2000 Sex: F Assigned Patient Location: [facility] Current Patient Location: Accession/Order Number: [id number] Exam Date: 09/23/2024 12:21 Report Date: 09/23/2024 12:23 At the request of: IMMANUEL HILTON DO Procedure: US OB BPP w non-stress BIOPHYSICAL PROFILE: CLINICAL INFORMATION: Gestational diabetes mellitus O24.419 COMPARISON: 09/16/2024 There is a single live intrauterine gestation in cephalic presentation. The reported gestational age is 35 weeks 6 days. The heart rate beats per minute. [...] Chika Holden M.D.09/23/2024 12:23 PM Dictation Location: [place] [address] Electronically authenticated by: [id number] Y Date: 09/23/2024 12:23 Dictated By: Chika Holden M.D. Signed By: 09/23/24 1226 DD/ 1223 TD/TT: Gyn: [facility] Radiology Study observation (narrative) [facility] US OB BPP W NON-STRESS Ordered By: Radiologist Radiology on 09-23-2024 [facility] Work Phone: TB TOTAL PROTEIN 24 HOUR UR INEon 09-22-2024 Interpretation and review of laboratory results Abnormal [facility] Protein (U) [Mass/Vol] 23.9 mg/dL High NINF - 11.9 mg/dL [facility] TBH TOTAL PROTEIN 24 HOUR URINE 239 High NINF [facility] TOTAL VOLUME 24 HOUR URINE 1000 mL/24hr [facility] Urinalysis macro (dipstick) panel (U)on 09-22-2024 Bilirubin, UA Positive Negative - 4(70) +++ mg/dL [facility] Comment on above: small Blood, UA Positive Negative - 50 Jimy/mcL [facility] Comment on above: trace-intact Clarity, UA Clear [facility] Color, UA Cynthia [facility] Glucose, UA Negative Negative - 1999(110) ++++ mg/dL [facility] Interpretation and review of laboratory results Abnormal [facility] Ketones, UA Negative Negative - 160(16) ++++ mg/dL [facility] Leukocytes, UA Positive Negative - 500+++ Mychal/mcL [facility] Comment on above: small Nitrite, UA Negative Negative - Positive [facility] pH, UA 6 5 - 9 [facility] Protein, UA Positive Negative - 2000(20) ++++ mg/dL [facility] Comment on above: 30 Spec Grav, UA 1.02 1 - 1.03 [facility] Urobilinogen, UA 1.0 0.2 - 12 mg/dL [facility] Laboratory - Chemistry and C hemistry - challengeon 09-20-2024 Bilirubin Ql (U) SMALL Abnormal NEGATIVE [facility] Glucose (U) [Mass/Vol] Negative NEGATIVE [facility] Ketones Ql (U) >=80 mg/dL Abnormal NEGATIVE [facility] pH (U) 5.5 [pH] 5.0-9.0 [facility] Specific gravity (U) [Rel density] >=1.030 Abnormal 1.005-1.025 [facility] Urobilinogen Qn (U) 0.2 {Brian'U}/dL 0.2-1.0 [facility] Laboratory - Specimen inform ationon 09-20-2024 Appearance (U) SL CLOUDY CLEAR [facility] Color (U) YELLOW YELLOW [facility] Laboratory - Urinalysison Leukocyte esterase Test strip Ql (U) TRACE Abnormal NEGATIVE [facility] Mucus Ql (Urine sed) LARGE Abnormal NONE SEEN [facility] Nitrite Ql (U) Negative NEGATIVE [facility] Protein Ql (U) 30 mg/dL Abnormal NEG/TRACE [facility] No Panel Informationon 09-20 Urine Bacteria SMALL #/HPF Abnormal NONE SEEN [facility] Urine Culture Reflexed YES-[facility] Urine Microscopic Review YES [facility] Urine Occult Blood LARGE Abnormal NEGATIVE [facility] Urine Other Casts NONE SEEN #/LPF NONE SEEN [facility] Urine Other Crystals None Seen #/HPF None Seen [facility] Urine RBC 0-2 #/HPF 0-2 [facility] Urine Squamous Epithelial Cells FEW #/LPF Abnormal NONE/RARE [facility] Urine WBC 0-2 #/HPF Abnormal NONE SEEN [facility] Urine Cultureon 09-20-2024 Bacteria identified Cx Nom (U) Urine Culture Results >100,000 col/ml Mixed Bacterial Skin Contaminants 2 Days PERFORMED BY: [place] [address] PATHOLOGIST GROUT WORKER SHELLIE Calderon [facility] Comment on above: Performed By: #### C UU #### [facility] [address] [place] [address] US OB BPP W NON-STRESS on 09-16-2024 [place] [address] Ultrasound Report Signed Patient: AMY MARIO MR#: [id number] : 2000 Acct:[id number] Age/Sex: 24 / F ADM Date: 09/16/24 Loc: [facility] 250-[address]: Immanuel Hilton D.O. Ordering Physician: Immanuel Hilton D.O. Date of Service: 09/16/24 Procedure(s): US OB BPP w non-stress Accession Number(s): [id number] cc: Akila Grant M.D.; Immanuel Hilton D.O. The [address] [address] Patient Name: AMY MARIO MRN: [facility]:[id number] date: 2000 Sex: F Assigned Patient Location: [facility] Current Patient Location: [facility] Accession/Order Number: [id number] Exam Date: 09/16/2024 09:04 Report Date: 09/16/2024 [...] 34 weeks 4 days. The heart rate [id number] beats per minute. FINDINGS: TONE: 1 or [...] Chika Holden M.D.09/16/2024 9:06 AM Dictation Location: [place] [address] Electronically authenticated by: [id number] Y Date: 09/16/2024 09:06 Dictated By: Chika Holden M.D. Signed By: 09/16/24908 DD/ 5 TD/TT: Gyn: [facility] Radiology, Radiologist, - 09/16/2024 The [place] [address] Ultrasound Report Signed Patient: AMY MARIO MR#: [id number] : 2000 Acct:[id number] Age/Sex: 24 / F ADM Date: 09/16/24 Loc: [facility] 250-[address]: Immanuel Hilton D.O. Ordering Physician: Immanuel Hilton D.O. Date of Service: 09/16/24 Procedure(s): US OB BPP w non-stress Accession Number(s): [id number] cc: Akila Grant M.D.; Immanuel Hilton D.O. [place] [address] Patient Name: AMY MARIO MRN: [facility]:[id number] date: 2000 Sex: F Assigned Patient Location: [facility] Current Patient Location: [facility] Accession/Order Number: [id number] Exam Date: 09/16/2024 09:04 Report Date: 09/16/2024 [...] 34 weeks 4 days. The heart rate [id number] beats per minute. FINDINGS: TONE: 1 or [...] Chika Holden M.D.09/16/2024 9:06 AM Dictation Location: [employer] Electronically authenticated by: [id number] Y Date: 09/16/2024 09:06 Dictated By: Chika Holden M.D. Signed By: 09/16/24908 DD/ 5 TD/TT: Gyn: [facility] Radiology Study observation (narrative) [facility] US OB BPP W NON-STRESS Ordered By: Radiologist Radiology on 09-16-2024 [facility] Work Phone: US OB GROWTHon 09-16-2024 [place] [address] Ultrasound Report Signed Patient: AMY MARIO MR#: [id number] : 2000 Acct:[id number] Age/Sex: 24 / F ADM Date: 09/16/24 Loc: [facility] 250-[address]: Immanuel Hilton D.O. Ordering Physician: Immanuel Hilton D.O. Date of Service: 09/16/24 Procedure(s): US OB growth Accession Number(s): [id number] cc: Akila Grant M.D.; Immanuel Hilton D.O. [place] [id number] Patient Name: AMY MARIO MRN: [facility]:[id number] date: 2000 Sex: F Assigned Patient Location: [facility] Current Patient Location: [facility] Accession/Order Number: [id number] Exam Date: 09/16/2024 09:07 Report Date: 09/16/2024 [...] Chika Holden M.D.09/16/2024 9:15 AM Dictation Location: [place] [address] Electronically authenticated by: [id number] Y Date: 09/16/2024 09:15 Dictated By: Chika Holden M.D. Signed By: 09/16/24917 DD/ 4 TD/TT: Gyn: [facility] Radiology, Radiologist, MD - 09/16/2024 [place] [address] Ultrasound Report Signed Patient: AMY MARIO MR#: [id number] : 2000 Acct:[id number] Age/Sex: 24 / F ADM Date: 09/16/24 Loc: [place] [address]: Immanuel Hilton D.O. Ordering Physician: Immanuel Hilton D.O. Date of Service: 09/16/24 Procedure(s): US OB growth Accession Number(s): [id number] cc: Akila Grant M.D.; Immanuel Hilton D.O. The [place] [id number] Patient Name: AMY MARIO MRN: [facility]:[id number] date: 2000 Sex: F Assigned Patient Location: [facility] Current Patient Location: [facility] Accession/Order Number: [id number] Exam Date: 09/16/2024 09:07 Report Date: 09/16/2024 [...] 5 lbs. 4 oz. +/- 13 ounces. US/ OB growth IMPRESSION: SINGLE LIVE INTRAUTERINE GESTATION WITH TODAY'S ULTRASOUND AGE OF 34 WEEKS 4 DAYS. Impression dictated by: Chika Holden M.D.09/16/2024 9:15 AM Dictation Location: [employer] Electronically authenticated by: [id number] Y Date: 09/16/2024 09:15 Dictated By: Chika Holden M.D. Signed By: 09/16/24917 DD/ 4 TD/TT: Gyn: [facility] Radiology Study observation (narrative) [facility] OB GROWTHOrdered By: Kaye [email or web address] Radiology on 09-16-2024 [facility] Work Phone: TBH TOTAL PROTEIN 24 HOUR UR INEon 09-12-2024 Interpretation and review of laboratory results Abnormal [facility] Protein (U) [Mass/Vol] 29.7 mg/dL High NINF - 11.9 mg/dL [facility] TBH TOTAL PROTEIN 24 HOUR [facility] TOTAL VOLUME 24 HOUR URINE 500 mL/24hr [facility] ALL CBC WITH AUTO DIFFon BASOPHILS ABSOLUTE AUTO 0 [facility] Basophils/100 WBC (Bld) 0.1 % Low 0.2 - 2.0 % [facility] Eosinophils/100 WBC (Bld) 0.7 % Low 0.9 - 7.0 % [facility] Erythrocyte distribution width (RBC) [Ratio] 13.4 % 11.0 - 15.0 % [facility] Hematocrit (Bld) [Volume fraction] 32.2 % Low 36.0 - 48.0 % [facility] Hemoglobin (Bld) [Mass/Vol] 10.6 g/dL Low 12.0 - 16.0 g/dL [facility] IMMATURE GRANULOCYTES ABS AUTO 0.06 High [facility] Immature granulocytes/100 WBC (Bld) 0.9 % High 0.0 - 0.5 % [facility] Interpretation and review of laboratory results Abnormal [facility] LYMPHOCYTES ABSOLUTE AUTO 1.4 [facility] Lymphocytes/100 WBC (Bld) 19.7 % Low 20.5 - 60.0 % [facility] MCH (RBC) [Entitic mass] 28.3 pg 26.7 - 34.0 pg [facility] MCHC (RBC) [Mass/Vol] 32.9 g/dL 29.9 - 35.2 g/dL [facility] MCV (RBC) [Entitic vol] 85.9 fL 81.0 - 99.0 fL [facility] MONOCYTES ABSOLUTE AUTO 0.5 [facility] Monocytes/100 WBC (Bld) 7.4 % 1.7 - 12.0 % [facility] NEUTROPHILS ABSOLUTE AUTO 4.9 [facility] Neutrophils/100 WBC (Bld) 71.2 % 43.0 - 75.0 % [facility] Platelet mean volume (Bld) [Entitic vol] 10.4 fL 9.5 - 13.5 fL [facility] TBH EO # 0.1 [facility] PLT 391 [facility] RBC 3.75 Low [facility] WBC 6.9 [facility] Activated partial thrombopla stin time (aPTT) in platelet poor plasma by coagulation aon 09-09-2024 aPTT Coag (PPP) [Time] Activated partial thromboplastin time (aPTT) in platelet poor plasma by coagulation a Low 22.3-36.2 [facility] Basophils Auto (Bld) [#/Vol] on 09-09-2024 Basophils (Bld) [#/Vol] Automated basophil count 0.0-0.1 [facility] Basophils/100 WBC Auto (Bld) on 09-09-2024 Basophils/100 WBC (Bld) Automated basophil % Low 0.2-2.0 [facility] Eosinophils/100 WBC Auto (Bl d)on 09-09-2024 Eosinophils/100 WBC (Bld) Automated eosinophil % Low 0.9-7.0 [facility] Erythrocyte distribution wid th Auto (RBC) [Ratio]on 09-09-2024 Erythrocyte distribution width (RBC) [Ratio] Erythrocyte distribution width [Ratio] by Automated count 11.0-15.0 [facility] Estimated glomerular filtrat ion rate (GFR) non- Americanon 09-09-2024 GFR/1.73 sq M.predicted among non-blacks MDRD (S/P/Bld) [Vol rate/Area] Estimated glomerular filtration rate (GFR) non- >=60 mL/min/1.73m 2 [facility] Hematocrit Auto (Bld) [Volum e fraction]on 09-09-2024 Hematocrit (Bld) [Volume fraction] Hematocrit [Volume Fraction] of Blood by Automated count Low 36.0-48.0 [facility] Hemoglobin [Mass/volume] in Bloodon 09-09-2024 Hemoglobin (Bld) [Mass/Vol] Hemoglobin [Mass/volume] in Blood Low 12.0-16.0 [facility] INR in Platelet poor plasma by Coagulation assayon 09-09-2024 INR Coag (PPP) [Relative time] INR in Platelet poor plasma by Coagulation assay [facility] Comment on above: DESIRED INR:2.0-3.0 CONDITIONS NOT LISTED BELOW2.5-3.5 FOR PROSTHETIC HEART VALVE REPLACEMENT2.5-3.5 RECURRENT THROMBOSIS Laboratory - Chemistry and C hemistry - challengeon 09-09-2024 AST [Catalytic activity/Vol] 14 U/L Low 15-37 [facility] Creatinine [Mass/Vol] 0.56 mg/dL 0.55-1.02 [facility] GFR/1.73 sq M.predicted MDRD (S/P/Bld) [Vol rate/Area] mL/min/{1.73_m2} >=60 mL/min/1.73m 2 [facility] LDH [Catalytic activity/Vol] 296 U/L High 81-234 [facility] Urate [Mass/Vol] 5.4 mg/dL 2.6-6.0 [facility] Urea nitrogen [Mass/Vol] 5.0 mg/dL Low 7.0-18.0 [facility] Laboratory - Hematology and Cell countson 09-09-2024 Immature granulocytes/100 WBC (Bld) 0.9 % High 0.0-0.5 [facility] Leukocytes [#/volume] correc lisha for nucleated erythrocytes in Blood by Automated counon 09-09-2024 WBC corrected for nucl RBC Auto (Bld) [#/Vol] Leukocytes [#/volume] corrected for nucleated erythrocytes in Blood by Automated coun 4.0-11.0 [facility] Lymphocytes Auto (Bld) [#/Vo l]on 09-09-2024 Lymphocytes (Bld) [#/Vol] Lymphocytes [#/volume] in Blood by Automated count 1.2-3.8 [facility] Lymphocytes/100 WBC Auto (Bl d)on 09-09-2024 Lymphocytes/100 WBC (Bld) Lymphocytes/100 leukocytes in Blood by Automated count Low 20.5-60.0 [facility] MCH Auto (RBC) [Entitic mass ]on 09-09-2024 MCH (RBC) [Entitic mass] MCH [Entitic mass] by Automated count 26.7-34.0 [facility] MCHC Auto (RBC) [Mass/Vol]on 09-09-2024 MCHC (RBC) [Mass/Vol] MCHC [Mass/volume] by Automated count 29.9-35.2 [facility] MCV Auto (RBC) [Entitic vol] on 09-09-2024 MCV (RBC) [Entitic vol] MCV [Entitic volume] by Automated count 81.0-99.0 [facility] Monocytes Auto (Bld) [#/Vol] on 09-09-2024 Monocytes (Bld) [#/Vol] Automated blood monocyte count 0.3-0.8 [facility] Monocytes/100 WBC Auto (Bld) on 09-09-2024 Monocytes/100 WBC (Bld) Automated monocyte % 1.7-12.0 [facility] Neutrophils Auto (Bld) [#/Vo l]on 09-09-2024 Neutrophils (Bld) [#/Vol] Neutrophils [#/volume] in Blood by Automated count 1.4-6.5 [facility] Neutrophils/100 WBC Auto (Bl d)on 09-09-2024 Neutrophils/100 WBC (Bld) Automated neutrophil % 43.0-75.0 [facility] No Panel Informationon 09-09 Eosinophils # (Auto) 0.1 10 3/uL 0.0-0.7 [facility] Immature Granulocyte # (Auto) 0.06 10 3/uL High 0.00-0.03 [facility] Platelet mean volume Auto (B ld) [Entitic vol]on 09-09-2024 Platelet mean volume (Bld) [Entitic vol] Platelet mean volume [Entitic volume] in Blood by Automated count 9.5-13.5 [facility] Platelets Auto (Bld) [#/Vol] on 09-09-2024 Platelets (Bld) [#/Vol] Platelets [#/volume] in Blood by Automated count 150-450 [facility] Prothrombin time (PT)on 08-29 PT Coag (PPP) [Time] Prothrombin time (PT) 9.0-11.6 [facility] RBC Auto (Bld) [#/Vol]on RBC (Bld) [#/Vol] Erythrocytes [#/volume] in Blood by Automated count Low 4.20-5.40 [facility] US OB BPP W NON-STRESS on 09-09-2024 [place] [address] Ultrasound Report Signed Patient: AMY MARIO MR#: [id number] : 2000 Acct:[id number] Age/Sex: 24 / F ADM Date: 09/09/24 Loc: US Attending Dr: Immanuel Hilton D.O. Ordering Physician: Immanuel Hilton D.O. Date of Service: 09/09/24 Procedure(s): US OB BPP w non-stress Accession Number(s): [id number] cc: Akila Grant M.D.; Immanuel Hilton D.O. [place] [id number] Patient Name: AMY MARIO MRN: [facility]:[id number] date: 2000 Sex: F Assigned Patient Location: [facility] Current Patient Location: ED.MAIN Accession/Order Number: [id number] Exam Date: 09/09/2024 07:58 Report Date: 09/09/2024 [...] Signed By: 09/09/24 1132 DD/ 1130 TD/TT: Gyn: [facility] Radiology, Radiologist, MD - 09/09/2024 [place] [address] Ultrasound Report Signed Patient: AMY MARIO MR#: [id number] : 2000 Acct:[id number] Age/Sex: 24 / F ADM Date: 09/09/24 Loc: US Attending Dr: Immanuel Hilton D.O. Ordering Physician: Immanuel Hilton D.O. Date of Service: 09/09/24 Procedure(s): US OB BPP w non-stress Accession Number(s): [id number] cc: Akila Grant M.D.; Immanuel Hilton D.O. [facility] [place] [id number] Patient Name: AMY MARIO MRN: [facility]:[id number] date: 2000 Sex: F Assigned Patient Location: [facility] Current Patient Location: ED.MAIN Accession/Order Number: [id number] Exam Date: 09/09/2024 07:58 Report Date: 09/09/2024 [...] Signed By: 09/09/24 1132 DD/ 1130 TD/TT: Gyn: [facility] Radiology Study observation (narrative) [facility] US OB BPP W NON-STRESS Ordered By: Radiologist Radiology on 09-09-2024 [facility] Work Phone: Urinalysis macro (dipstick) panel (U)on 09-08-2024 Bilirubin, UA Trace Negative - 4(70) +++ mg/dL [facility] Blood, UA Positive Negative - 50 Jimy/mcL [facility] Clarity, UA Clear [facility] Color, UA Yellow [facility] Glucose, UA Negative Negative - 2000(110) ++++ mg/dL [facility] Interpretation and review of laboratory results Abnormal [facility] Ketones, UA Negative Negative - 160(16) ++++ mg/dL [facility] Leukocytes, UA Positive Negative - 500+++ Mychal/mcL [facility] Nitrite, UA Negative Negative - Positive [facility] pH, UA 6 5 - 9 [facility] Protein, UA Positive Negative - 2000(20) ++++ mg/dL [facility] Spec Grav, UA 1.025 1 - 1.03 [facility] Urobilinogen, UA 0.2 0.2 - 12 mg/dL [facility] US OB BPP W NON-STRESS on 09-02-2024 [place] [id number] Ultrasound Report Signed Patient: AMY MARIO MR#: [id number] : 2000 Acct:[id number] Age/Sex: 24 / F ADM Date: 09/02/24 Loc: US Attending Dr: Immanuel Hilton D.O. Ordering Physician: Immanuel Hilton D.O. Date of Service: 09/02/24 Procedure(s): US OB BPP w non-stress Accession Number(s): [id number] cc: Akila Grant M.D.; Immanuel Hilton D.O. [address] [address] Patient Name: AMY MARIO MRN: [facility]:[id number] date: 2000 Sex: F Assigned Patient Location: [facility] Current Patient Location: Accession/Order Number: [id number] Exam Date: 09/02/2024 08:03 Report Date: 09/02/2024 [...] M.D. Signed By: 09/02/24924 DD/ 1 TD/TT: Gyn: [facility] Radiology, Radiologist, MD - 09/02/2024 [facility] [place] [id number] Ultrasound Report Signed Patient: AMY MARIO MR#: [id number] : 2000 Acct:[id number] Age/Sex: 24 / F ADM Date: 09/02/24 Loc: US Attending Dr: Immanuel Hilton D.O. Ordering Physician: Immanuel Hilton D.O. Date of Service: 09/02/24 Procedure(s): US OB BPP w non-stress Accession Number(s): [id number] cc: Akila Grant M.D.; Immanuel Hilton D.O. [facility] [place] [id number] Patient Name: AMY MARIO MRN: [id number] date: 2000 Sex: F Assigned Patient Location: [facility] Current Patient Location: Accession/Order Number: [id number] Exam Date: 09/02/2024 08:03 Report Date: 09/02/2024 [...] M.D. Signed By: 09/02/24924 DD/ 1 TD/TT: Gyn: [facility] Radiology Study observation (narrative) [facility] US OB BPP W NON-STRESS Ordered By: Radiologist Radiology on 09-02-2024 [facility] Work Phone: US OB FOLLOW [...] 2164 gm / 4 lbs, 12 oz (0844-0147 gm) Hadlock Normal: 1953 gm (7064-9638 mg) [place]lock 80% for 32.0 wks ([place] [...] report is generated using voice recognition reporting ([employer]). On occasion [employer] erroneously drops words from the report or [...] Positive Negative - 4(70) +++ mg/dL [facility] Comment on above: small Blood, UA Negative Negative - 50 Jimy/mcL [facility] Clarity, UA Clear [facility] Color, UA Yellow [facility] Glucose, UA Positive Negative - 2000(110) ++++ mg/dL [facility] Comment on above: 100 Interpretation and review of laboratory results Abnormal [facility] Ketones, UA Positive Negative - 160(16) ++++ mg/dL [facility] Comment on above: trace Leukocytes, UA Positive Negative - 500+++ Mychal/mcL [facility] Comment on above: large Nitrite, UA Negative Negative - Positive [facility] pH, UA 6.5 5 - 9 [facility] Protein, UA Positive Negative - 2000(20) ++++ mg/dL [facility] Comment on above: 30 Spec Grav, UA 1.03 1 - 1.03 [facility] Urobilinogen, UA 0.2 0.2 - 12 mg/dL [facility] US OB BPP W NON-STRESS on 08-26-2024 [place] [address] Ultrasound Report Signed Patient: AMY MARIO MR#: [id number] : 2000 Acct:[id number] Age/Sex: 24 / F ADM Date: 08/26/24 Loc: [facility] 251-[address]: Immanuel Hilton D.O. Ordering Physician: Immanuel Hilton D.O. Date of Service: 08/26/24 Procedure(s): US OB BPP w non-stress Accession Number(s): [id number] cc: Akila Grant M.D.; Immanuel Hilton D.O. [address] [address] Patient Name: AMY MARIO MRN: [facility]:[id number] date: 2000 Sex: F Assigned Patient Location: [facility] Current Patient Location: [facility] Accession/Order Number: [id number] Exam Date: 08/26/2024 08:00 Report Date: 08/26/2024 [...] Mixon M.D. Signed By: 08/26/2458 DD/ TD/TT: Gyn: [facility] Radiology, Radiologist, MD - 08/26/2024 [place] [address] Ultrasound Report Signed Patient: AMY MARIO MR#: [id number] : 2000 Acct:[id number] Age/Sex: 24 / F ADM Date: 08/26/24 Loc: [facility] 251-[address]: Immanuel Hilton D.O. Ordering Physician: Immanuel Hilton D.O. Date of Service: 08/26/24 Procedure(s): US OB BPP w non-stress Accession Number(s): [id number] cc: Akila Grant M.D.; Immanuel Hilton D.O. [facility] [place] [address] Patient Name: AMY MARIO MRN: [facility]:[id number] date: 2000 Sex: F Assigned Patient Location: [facility] Current Patient Location: [facility] Accession/Order Number: [id number] Exam Date: 08/26/2024 08:00 Report Date: 08/26/2024 [...] M.D. Signed By: 08/26/2458 DD/ 5 TD/TT: Gyn: [facility] Radiology Study observation (narrative) [facility] US OB BPP W NON-STRESS Ordered By: Radiologist Radiology on 08-26-2024 [facility] Work Phone: Urinalysis macro (dipstick) panel (U)on 08-12-2024 Bilirubin, UA Negative Negative - 4(70) +++ mg/dL [facility] Blood, UA Negative Negative - 50 Jimy/mcL [facility] Clarity, UA Clear [facility] Color, UA Yellow [facility] Glucose, UA Negative Negative - 2000(110) ++++ mg/dL [facility] Interpretation and review of laboratory results Abnormal [facility] Ketones, UA Positive Negative - 160(16) ++++ mg/dL [facility] Comment on above: trace Leukocytes, UA Positive Negative - 500+++ Mychal/mcL [facility] Comment on above: large Nitrite, UA Negative Negative - Positive [facility] pH, UA 5.5 5 - 9 [facility] Protein, UA Trace Negative - 2000(20) ++++ mg/dL [facility] Spec Grav, UA 1.03 1 - 1.03 [facility] Urobilinogen, UA 0.2 0.2 - 12 mg/dL [facility] ALL CBC WITH AUTO DIFFon BASOPHILS ABSOLUTE AUTO 0 [facility] Basophils/100 WBC (Bld) 0.3 % 0.2 - 2.0 % [facility] Eosinophils/100 WBC (Bld) 1 % 0.9 - 7.0 % [facility] Erythrocyte distribution width (RBC) [Ratio] 13.2 % 11.0 - 15.0 % [facility] Hematocrit (Bld) [Volume fraction] 32.6 % Low 36.0 - 48.0 % [facility] Hemoglobin (Bld) [Mass/Vol] 11.3 g/dL Low 12.0 - 16.0 g/dL [facility] IMMATURE GRANULOCYTES ABS AUTO 0.07 High [facility] Immature granulocytes/100 WBC (Bld) 0.9 % High 0.0 - 0.5 % [facility] Interpretation and review of laboratory results Abnormal [facility] LYMPHOCYTES ABSOLUTE AUTO 1.6 [facility] Lymphocytes/100 WBC (Bld) 19.6 % Low 20.5 - 60.0 % [facility] MCH (RBC) [Entitic mass] 30.4 pg 26.7 - 34.0 pg [facility] MCHC (RBC) [Mass/Vol] 34.7 g/dL 29.9 - 35.2 g/dL [facility] MCV (RBC) [Entitic vol] 87.6 fL 81.0 - 99.0 fL [facility] MONOCYTES ABSOLUTE AUTO 0.6 [facility] Monocytes/100 WBC (Bld) 8 % 1.7 - 12.0 % [facility] NEUTROPHILS ABSOLUTE AUTO 5.6 [facility] Neutrophils/100 WBC (Bld) 70.2 % 43.0 - 75.0 % [facility] Platelet mean volume (Bld) [Entitic vol] 9.7 fL 9.5 - 13.5 fL [facility] TBH EO # 0.1 [facility] TBH PLT 400 [facility] RBC 3.72 Low [facility] WBC 8 [facility] Basophils Auto (Bld) [#/Vol] on 08-05-2024 Basophils (Bld) [#/Vol] Automated basophil count 0.0-0.1 [facility] Basophils/100 WBC Auto (Bld) on 08-05-2024 Basophils/100 WBC (Bld) Automated basophil % 0.2-2.0 [facility] Eosinophils/100 WBC Auto (Bl d)on 08-05-2024 Eosinophils/100 WBC (Bld) Automated eosinophil % 0.9-7.0 [facility] Erythrocyte distribution wid th Auto (RBC) [Ratio]on 08-05-2024 Erythrocyte distribution width (RBC) [Ratio] Erythrocyte distribution width [Ratio] by Automated count 11.0-15.0 [facility] Hematocrit Auto (Bld) [Volum e fraction]on 08-05-2024 Hematocrit (Bld) [Volume fraction] Hematocrit [Volume Fraction] of Blood by Automated count Low 36.0-48.0 [facility] Hemoglobin [Mass/volume] in Bloodon 08-05-2024 Hemoglobin (Bld) [Mass/Vol] Hemoglobin [Mass/volume] in Blood Low 12.0-16.0 [facility] Laboratory - Hematology and Cell countson 08-05-2024 Immature granulocytes/100 WBC (Bld) 0.9 % High 0.0-0.5 [facility] Leukocytes [#/volume] correc lisha for nucleated erythrocytes in Blood by Automated counon 08-05-2024 WBC corrected for nucl RBC Auto (Bld) [#/Vol] Leukocytes [#/volume] corrected for nucleated erythrocytes in Blood by Automated coun 4.0-11.0 [facility] Lymphocytes Auto (Bld) [#/Vo l]on 08-05-2024 Lymphocytes (Bld) [#/Vol] Lymphocytes [#/volume] in Blood by Automated count 1.2-3.8 [facility] Lymphocytes/100 WBC Auto (Bl d)on 08-05-2024 Lymphocytes/100 WBC (Bld) Lymphocytes/100 leukocytes in Blood by Automated count Low 20.5-60.0 [facility] MCH Auto (RBC) [Entitic mass ]on 08-05-2024 MCH (RBC) [Entitic mass] MCH [Entitic mass] by Automated count 26.7-34.0 [facility] MCHC Auto (RBC) [Mass/Vol]on 08-05-2024 MCHC (RBC) [Mass/Vol] MCHC [Mass/volume] by Automated count 29.9-35.2 [facility] MCV Auto (RBC) [Entitic vol] on 08-05-2024 MCV (RBC) [Entitic vol] MCV [Entitic volume] by Automated count 81.0-99.0 [facility] Monocytes Auto (Bld) [#/Vol] on 08-05-2024 Monocytes (Bld) [#/Vol] Automated blood monocyte count 0.3-0.8 [facility] Monocytes/100 WBC Auto (Bld) on 08-05-2024 Monocytes/100 WBC (Bld) Automated monocyte % 1.7-12.0 [facility] Neutrophils Auto (Bld) [#/Vo l]on 08-05-2024 Neutrophils (Bld) [#/Vol] Neutrophils [#/volume] in Blood by Automated count 1.4-6.5 [facility] Neutrophils/100 WBC Auto (Bl d)on 08-05-2024 Neutrophils/100 WBC (Bld) Automated neutrophil % 43.0-75.0 [facility] No Panel Informationon 08-05 Eosinophils # (Auto) 0.1 10 3/uL 0.0-0.7 [facility] Immature Granulocyte # (Auto) 0.07 10 3/uL High 0.00-0.03 [facility] Platelet mean volume Auto (B ld) [Entitic vol]on 08-05-2024 Platelet mean volume (Bld) [Entitic vol] Platelet mean volume [Entitic volume] in Blood by Automated count 9.5-13.5 [facility] Platelets Auto (Bld) [#/Vol] on 08-05-2024 Platelets (Bld) [#/Vol] Platelets [#/volume] in Blood by Automated count 150-450 [facility] RBC Auto (Bld) [#/Vol]on RBC (Bld) [#/Vol] Erythrocytes [#/volume] in Blood by Automated count Low 4.20-5.40 [facility] Urinalysis macro (dipstick) panel (U)on 06-22-2024 Bilirubin, UA Negative Negative - 4(70) +++ mg/dL [facility] Blood, UA Negative Negative - 50 Jimy/mcL [facility] Clarity, UA Clear [facility] Color, UA Yellow [facility] Glucose, UA Negative Negative - 1999(110) ++++ mg/dL [facility] Interpretation and review of laboratory results Abnormal [facility] Ketones, UA Positive Negative - 160(16) ++++ mg/dL [facility] Comment on above: 15 Leukocytes, UA Positive Negative - 500+++ Mychal/mcL [facility] Comment on above: small Nitrite, UA Negative Negative - Positive [facility] pH, UA 5.5 5 - 9 [facility] Protein, UA Trace Negative - 1999(20) ++++ mg/dL [facility] Spec Grav, UA 1.03 1 - 1.03 [facility] Urobilinogen, UA 0.2 0.2 - 12 mg/dL [facility] IGP,APTIMA HPV,AGE GDLNon AGE GDLN ACOG TESTING Note . [facility] Comment on above: TESTS RESULT FLAG [facility] REF RANGE LAB Clinician Provided Cytology Information Source.............Cervix Other.............. No. of containers..01 ThinPrep Vial Age Algo ACOG Michelle... FLAG LEGEND: L-Low Normal,H-High Normal,LL-Alert Low,HH-Alert High <-Panic Low,>-Panic High,A-Abnormal,AA-Critical Abnormal Performed at: 01 =G [address] [address] Mar Rivera MD, IGP, RFX APTIMA HPV ASCU Note . [facility] Comment on above: TESTS RESULT FLAG [facility] REF RANGE LAB DIAGNOSIS: 02 NEGATIVE FOR INTRAEPITHELIAL LESION OR MALIGNANCY. FUNGAL ORGANISMS MORPHOLOGICALLY CONSISTENT WITH CARLOS SPECIES ARE PRESENT. Specimen adequacy: 02 Satisfactory for evaluation. No endocervical component is identified. An endocervical component is not commonly seen in the patient. Performed by: Judy Vera, Chemical Engineering Teacher ([facility]) . 02 Note: Note 02 [...] High,A-Abnormal,AA-Critical Abnormal Performed at: 02 [facility] [address] [address] Mar Rivera MD, Performed at: =G - [facility] [address] [id number] Slp Teacher: Mar Rivera MD, Phone: [phone] Performed at: - [facility] [id number] Slp Teacher: Mar Rivera MD, Phone: [phone] SP[facility] AFP, SERUM, OPEN SPINA BIFID Aon 05-30-2024 AFP MOM 1.36 . [facility] AFP VALUE 55.4 ng/mL . [facility] COMMENT: Comment . [facility] Comment on above: Ivet Mobley , Ph.D., [facility] Director References: Available Upon Request. Multiples Of Median Cutoffs For AFP Elevations [place] 2.5 Black 2.8 IDD 2.0 Twins 4.5 Abbreviation Definitions IDD - Insulin Dep Diabetes OSBR - Open Spina Bifida Risk For further inquiries contact [facility] at [phone]. This test was developed and its performance characteristics determined by Company. It has not been cleared or approved by the Food and Drug Administration. Performed at: [facility] [address] [place], [place] [id number] Slp Teacher: Kristina Carter [facility], Phone: [phone] GEST. AGE ON COLLECTION DATE 18.6 . weeks [facility] GESTAT. AGE BASED ON LMP . [facility] Comment on above: Recalculations are n ot recommended when gestational dating by LMP and ultrasound are within 10 days. INSULIN DEP DIABETES No . [facility] INTERPRETATION Comment . [facility] Comment on above: Interpretation: Scre [...] Customer Services to discuss available options. The [employer] recommends amniocentesis be offered to women age 35 and older. [age] SARA 25.3 [age] [facility] MULTIPLE GESTATION No . [facility] OSBR RISK 1 [place] 4034 . [facility] RACE . [facility] RESULTS Report . [facility] TEST RESULTS: Negative . [facility] WEIGHT 185 . lbs [facility] N N LMP [id number] 18 N 1 Y 185 N N N N N White/ [facility] Urinalysis macro (dipstick) panel (U)on 04-27-2024 Bilirubin, UA Positive Negative - 4(70) +++ mg/dL [facility] Comment on above: small Blood, UA Negative Negative - 50 Jimy/mcL [facility] Clarity, UA Clear [facility] Color, UA Yellow [facility] Glucose, UA Negative Negative - 1999(110) ++++ mg/dL [facility] Interpretation and review of laboratory results Abnormal [facility] Ketones, UA Positive Negative - 160(16) ++++ mg/dL [facility] Comment on above: trace Leukocytes, UA Positive Negative - 500+++ Mychal/mcL [facility] Comment on above: small Nitrite, UA Negative Negative - Positive [facility] pH, UA 6.0 5 - 9 [facility] Protein, UA Negative Negative - 1999(20) ++++ mg/dL [facility] Spec Grav, UA 1.030 1 - 1.03 [facility] Urobilinogen, UA 0.2 0.2 - 12 mg/dL [facility] ALL CBC WITH AUTO DIFFon BASOPHILS ABSOLUTE AUTO 0.0 [facility] Basophils/100 WBC (Bld) 0.1 % Low 0.2 - 2.0 % [facility] Eosinophils/100 WBC (Bld) 0.9 % 0.9 - 7.0 % [facility] Erythrocyte distribution width (RBC) [Ratio] 13.0 % 11.0 - 15.0 % [facility] IMMATURE GRANULOCYTES ABS AUTO 0.03 [facility] Immature granulocytes/100 WBC (Bld) 0.3 % 0.0 - 0.5 % [facility] Interpretation and review of laboratory results Abnormal [facility] LYMPHOCYTES ABSOLUTE AUTO 2.3 [facility] Lymphocytes/100 WBC (Bld) 26.6 % 20.5 - 60.0 % [facility] MCH (RBC) [Entitic mass] 30.1 pg 26.7 - 34.0 pg [facility] MCHC (RBC) [Mass/Vol] 34.6 g/dL 29.9 - 35.2 g/dL [facility] MCV (RBC) [Entitic vol] 87.0 fL 81.0 - 99.0 fL [facility] MONOCYTES ABSOLUTE AUTO 0.4 [facility] Monocytes/100 WBC (Bld) 4.1 % 1.7 - 12.0 % [facility] NEUTROPHILS ABSOLUTE AUTO 5.9 [facility] Neutrophils/100 WBC (Bld) 68.0 % 43.0 - 75.0 % [facility] Platelet mean volume (Bld) [Entitic vol] 9.6 fL 9.5 - 13.5 fL [facility] TBH EO # 0.1 [facility] PLT 400 [facility] RBC 4.55 [facility] WBC 8.7 [facility] CBC without diffon Rbc Mcv (Fl) By Automated Count 87 [facility] Laboratory - Hematology and Cell countson 04-08-2024 Hematocrit (Bld) [Volume fraction] 39.6 % [facility] Hemoglobin (Bld) [Mass/Vol] 13.7 g/dL [facility] No Panel Informationon 04-08 [facility] Rubella IGG immune statuson 04-08-2024 Rubella immune IgG 2.32 [facility] Syphilis Total(Unknown Syphi lis Status)on 04-08-2024 Syphilis Non-Reactive [facility] Type and screenon 04-08-2024 Abo/Rh(D) Positive [facility] HCG ( test) Ql (U)o n 03-27-2024 Interpretation and review of laboratory results Abnormal [facility] Preg Test, Ur Positive [facility] Urinalysis macro (dipstick) panel (U)on 03-27-2024 Bilirubin, UA Negative Negative - 4(70) +++ mg/dL [facility] Blood, UA Negative Negative - 50 Jimy/mcL [facility] Clarity, UA Clear [facility] Color, UA Yellow [facility] Glucose, UA Negative Negative - 2000(110) ++++ mg/dL [facility] Interpretation and review of laboratory results Normal [facility] Ketones, UA Negative Negative - 160(16) ++++ mg/dL [facility] Leukocytes, UA Negative Negative - 500+++ Mychal/mcL [facility] Nitrite, UA Negative Negative - Positive [facility] pH, UA 5.5 5 - 9 [facility] Protein, UA Negative Negative - 2000(20) ++++ mg/dL [facility] Spec Grav, UA 1.025 1 - 1.03 [facility] Urobilinogen, UA 0.2 0.2 - 12 mg/dL [facility] PROGESTERONEon 07-27-2022 Progesterone 26.9 ng/mL Normal [facility] Comment on above: Result Comment: Foll icular phase 0.1 - 0.9 Luteal phase 1.8 - 23.9 Ovulation phase 0.1 - 12.0 First trimester 11.0 - 44.3 Second trimester 25.4 - 83.3 Third trimester 58.7 - 214.0 Postmenopausal 0.0 - 0.1 Performed By: #### P ROGES #### [facility] [address] [place] [address] Dr. Ryan Francisco PREG QUANT HCGon 07-12-2022 HCG QUANT <1 Normal [facility] Comment on above: Performed By: #### P REGQNT #### [facility] [address] [place] [address] Dr. Ryan Francisco HCG RANGE SEE BELOW Normal [facility] Comment on above: Result Comment: 5-50 0.2-1 WEEK 50-500 1-2 WEEKS 100-5,000 2-3 WEEKS 500-10,000 3-4 WEEKS 1,000-50,000 4-5 WEEKS 10,000-100,000 5-6 WEEKS 15,000-200,000 6-8 WEEKS 10,000-100,000 2-3 MONTHS Performed By: #### P REGQNT #### [facility] [address] [place] [address] Dr. Ryan Francisco XR HYSTEROSALPINGO EXPon XR [...] CLEMENTINE DEWEY Date: 2022-07-12 12:34 Normal [facility] PROGESTERONEon 06-29-2022 Progesterone 4.6 ng/mL Normal [facility] Comment on above: Result Comment: Foll icular phase 0.1 - 0.9 Luteal phase 1.8 - 23.9 Ovulation phase 0.1 - 12.0 First trimester 11.0 - 44.3 Second trimester 25.4 - 83.3 Third trimester 58.7 - 214.0 Postmenopausal 0.0 - 0.1 Performed By: #### P BRETT #### [facility] [address] [place], [place] [address] Dr. Ryan Francisco PROGESTERONEon 06-01-2022 Progesterone 18.9 ng/mL Normal [facility] Comment on above: Result Comment: Foll icular phase 0.1 - 0.9 Luteal phase 1.8 - 23.9 Ovulation phase 0.1 - 12.0 First trimester 11.0 - 44.3 Second trimester 25.4 - 83.3 Third trimester 58.7 - 214.0 Postmenopausal 0.0 - 0.1 Performed By: #### P BRETT #### [facility] [address] [place] [id number] Ryan Francisco US PELVIS AND TRANSVAGon [...] by: CLEMENTINE DEWEY Date: 2022-05-17 17:25 Normal [facility] PROGESTERONEon 04-29-2022 Progesterone 5.1 ng/mL Normal [facility] Comment on above: Result Comment: Foll icular phase 0.1 - 0.9 Luteal phase 1.8 - 23.9 Ovulation phase 0.1 - 12.0 First trimester 11.0 - 44.3 Second trimester 25.4 - 83.3 Third trimester 58.7 - 214.0 Postmenopausal 0.0 - 0.1 Performed By: #### P BRETT ####[facility] [id number] [place], [place] [address]UwDr. Ryan Francisco ANTI-MULLERIAN HORMONEon Anti-Mullerian Hormone (AMH) 6.09 ng/mL Normal [facility] Comment on above: Result Comment: For assays employing antibodies, the possibility exists for interference by heterophile antibodies in the samples.1 1.Steffen Wilson Interferences in Immunoassays - still a threat. Clin. Chem. 2000; 46: 2869-7737. This test was developed and its performance characteristics determined by [employer]. It has not been cleared or approved by the Food and Drug Administration. Reference Range: Females 20 - 25y: 1.23 - 11.51 Median 4.70 AMH concentrations of >= 1.06 ng/mL is correlated with a better response to ovarian stimulation, produced more retrievable oocytes and higher odds of live according to Herber et al. Fertility and Sterility. 2010: 94:6569-0496. The current AMH test method correlates with [...] tumor. Performed By: #### A WEI #### [facility] [address] [place] [address] Dr. Ryan Francisco FSHon 04-05-2022 FSH 3.6 mIU/mL Normal [facility] Comment on above: Result Comment: Adul t Female: Follicular phase 3.5 - 12.5 Ovulation phase 4.7 - 21.5 Luteal phase 1.7 - 7.7 Postmenopausal 25.8 - 134.8 Performed By: #### L [facility] #### [facility] [address] [place], [place] [address] Dr. Ryan Francisco LUTEINIZING HORMONE (LH)on 0 04-05-2022 LH 6.8 mIU/mL Normal [facility] Comment on above: Result Comment: Adul t Female: Follicular phase 2.4 - 12.6 Ovulation phase 14.0 - 95.6 Luteal phase 1.0 - 11.4 Postmenopausal 7.7 - 58.5 Performed By: #### L [facility] ####[facility] [address] [place], [place] [address]QgDr. Ryan Francisco CBC AUTO DIFFon 04-04-2022 BASO # 0.0 103/ul Normal 0.0-0.1 [facility] Comment on above: Performed By: #### C BC #### [facility] [address] [place] [address] [address] Ryan Francisco Basophils/100 WBC (Bld) 0.3 % Normal 0.2-2.0 [facility] Comment on above: Performed By: #### C BC #### [facility] [address] [place] [address] [address] Ryan Francisco EO # 0.1 103/ul Normal 0.0-0.7 [facility] Comment on above: Performed By: #### C BC #### [facility] [address] [place] [address] [address] Ryan Francisco Eosinophils/100 WBC (Bld) 1.7 % Normal 0.9-7.0 [facility] Comment on above: Performed By: #### C BC #### [facility] [address] [address] [address] Ryan Francisco Erythrocyte distribution width (RBC) [Ratio] 12.7 % Normal 11.0-15.0 [facility] Comment on above: Performed By: #### C BC #### [facility] [address] [place] [address] [address] Ryan Francisco Hematocrit (Bld) [Volume fraction] 39.7 % Normal 36.0-48.0 [facility] Comment on above: Performed By: #### C BC #### [facility] [address] [place] [address] [address] Ryan Francisco Hemoglobin (Bld) [Mass/Vol] 13.4 g/dL Normal 12.0-16.0 [facility] Comment on above: Performed By: #### C BC #### [facility] [address] [address] [address] Ryna Francisco IG # 0.03 10e3/ul Normal 0.00-0.03 [facility] Comment on above: Performed By: #### C BC #### [facility] [address] [place] [address] Dr. yRan Francisco IG % 0.5 % Normal 0.0-0.5 [facility] Comment on above: Performed By: #### C BC #### [facility] [address] [place] [address] Dr. Ryan Francisco LYMPH # 1.6 103/ul Normal 1.2-3.8 [facility] Comment on above: Performed By: #### C BC #### [facility] [address] [place] [address] Dr. Ryan Francisco Lymphocytes/100 WBC (Bld) 27.1 % Normal 20.5-60.0 [facility] Comment on above: Performed By: #### C BC #### [facility] [address] [place] [address] Dr. Ryan Francisco MANUAL DIFF REQ NO Normal [facility] Comment on above: Performed By: #### C BC #### [facility] [address] [place] [address] Dr. Ryan Francisco MCH (RBC) [Entitic mass] 29.6 pg Normal 26.7-34.0 [facility] Comment on above: Performed By: #### C BC #### [facility] [address] [place] [address] Dr. Ryan Francisco MCHC (RBC) [Mass/Vol] 33.8 g/dL Normal 29.9-35.2 [facility] Comment on above: Performed By: #### C BC #### [facility] [address] [place] [address] Dr. Ryan Francisco MCV (RBC) [Entitic vol] 87.6 fL Normal 81.0-99.0 [facility] Comment on above: Performed By: #### C BC #### [facility] [address] [place] [address] Dr. Ryan Francisco MONO # 0.4 103/ul Normal 0.3-0.8 [facility] Comment on above: Performed By: #### C BC #### [facility] [address] [place] [address] Dr. Ryan Francisco Monocytes/100 WBC (Bld) 6.7 % Normal 1.7-12.0 [facility] Comment on above: Performed By: #### C BC #### [facility] [address] [place] [address] Dr. Ryan Francisco NEUT # 3.7 103/ul Normal 1.4-6.5 [facility] Comment on above: Performed By: #### C BC #### [facility] [address] [place] [address] Dr. Ryan Francisco Neutrophils/100 WBC (Bld) 63.7 % Normal 43.0-75.0 [facility] Comment on above: Performed By: #### C BC #### [facility] [address] [place] [address] Dr. Ryan Francisco Platelet mean volume (Bld) [Entitic vol] 9.9 fL Normal 9.5-13.5 [facility] Comment on above: Performed By: #### C BC #### [facility] [address] [place] [address] Dr. Ryan Francisco PLT 421 103/ul Normal 150-450 [facility] Comment on above: Performed By: #### C BC #### [facility] [address] [place] [address] Dr. Ryan Francisco RBC 4.53 106/ul Normal 4.20-5.40 [facility] Comment on above: Performed By: #### C BC #### [facility] [address] [place] [address] Dr. Ryan Francisco WBC 5.8 103/ul Normal 4.0-11.0 [facility] Comment on above: Performed By: #### C BC #### [facility] [address] [place] [address] Dr. Ryan Francisco FREE T4on 04-04-2022 Free T4 [Mass/Vol] 0.99 ng/dL Normal 0.76-1.46 [facility] Comment on above: Performed By: #### F T4 #### [facility] [address] [place], [place] [address] Dr. Ryan Francisco TSHon 04-04-2022 TSH 3.086 uIU/mL Normal 0.358-3.740 [facility] Comment on above: Performed By: #### T ####[facility] [address] [place], [place] [address]TyDr. Ryan Francisco US PELVIS AND TRANSVAGon US [...] by: LUCHO MIXON Date: 2022-04-04 16:38 Normal [facility] Auth for Release of Medical Recordson 12-20-2021 Auth for Release of Medical Records [id number]# 1.00CD:127 Normal [facility] Coding Summary.on 08-22-2021 Coding Summary. CD:[id number] Gh0bWw+PGhlYWQ+PE1FV NZkL54jeFNmyJ2KS5pAL U6OHQCIPYBOUI2EVY6yw NJ3LFwrA8JdqiYb GynswOLoKA72FSl7ZCM1 dYonGXzabW0xnWVgK9v6 TjPeNL57bW37MWlmWADe OlY0XgKktmtthBNi S5daAiGlbVCjQjz+PHRh YmxlIHdpZHRoPScxMDAl KaUucZpbNI7eYg9nOECb LWNvbGxhcHNlOiBj w1jgAUMgXCndAI4haOqq H7RioVL1CEZwg0a1Yr10 dHI+WEKxOLT6hQtxNIod a927UaDkp4guELC7 aMBuNIanTXB7C02xy0H6 PALuCUXwAMK8gMP2wF8g aWykkxagH4XifUXfJgQ8 DCX2sZKvwR0evLbj sixjaE5nEke+W26ECB8W NOYMTB6DKed2Y6LaWjst dHI+JK56RVKoQG22fYWs pWUrz9ctoZi1BnPe MEPkMVI0yJxmRYako9Fv XAIrN35lbVYxm6I9QYNi sTavuBVlAmQdxLD2cJ2v VPcpynjym6ryswgp Ukgkw8bfby62aQ71F64g OVhlGJEzSFH9SUDzOMGb uLedgm6vrM0sJw8+IDxj d6pug3hvmYt7JePn NWDmkhCpiYcgMML1h5Go Yz69E8JxbSpgi4VvVuv1 nm28fBXfd8I2aGF8CNiq FSGlrS7gRSkeNjK4 VMAsMiMwxS94kDYzOSfx Mv2teDzmyRvdYM6vLNVn fsgeCFRfvA1yRICuvMVb dIbnJU4rHZFjwzmb f815KiXdCNF3USLbsPEl E5WdlK0aDuLcKJWxOAQk F9EmcDQfVQayY759VCjy ZnW7WIGcllOcB5Se BFGwlVunFvD4a0V4Bj3X v0ApuqkiNBW4RQqpODFc TcM1BrYuGqX5T9TiKac5 LXSlsMidJX7rL6Tt LUQljfttozdqgHW2KPCv YQGwxE18fDIxCWfuMn4a i5A1p076CRAyPVBawR49 Yz6qiFddBKPzaPGS jR6umachv6oxvxfkPiUe YJUhEAc6EOk2VBEgbDxz KfUaKSZ1DfD5SFI0uWBm pU4vrNcurripiP7k Oyc+Y67chF0gLSV6XWA1 ghbpTHFpwyAtPX38YW45 C0UjBgaugZXvmZU+PGRp wcDluMppQR2lXeIn w9rek6YnOYjoY7QgDRAk EIsjNme5FTWwDFF6sYJ8 nV0nEMDbRWtyi2G3ePT0 M9HeemDjbx7hx3rb EKYkAXhzB06lfZFdz3F2 ZEWokHY4FVQizOkaAnKr mU59Nvb+FZGifEwch8Wu Tdcua3epa8dltQd7 IjMwJSIgdmFsaWduPSJ0 o7RwBx15X53oVNagGLLb MBZxUGJeTXGpbItaui0h sI2uFo2+PGNvbCB3 zSN6aH5lQROxKmR7YYak L679CvOfgNKjObqfu8qf h2fmaBl4CvUbUUQonaYh dWjuVUQ4z7ToTy14 Z95mTPcrNPPlSUQhMBLy FUQueQvhyt9tsX5eHm8+ ZO0hm8avbw53nN29sTD+ CLPhPZM4oAnsSTge UBEpcO6xKAehEgL6JNQj FgOlzG50cLDwBTbqZt6g yEckcBcmWD8hHVSlihnf y535UxWfi2ylPCNo aUWwTBznQGR4R47fn8N9 XHYtRVBqXRN6zYA0cB1j bGlnbjogbGVmdDsgdmVy mNywOFcbUSjyP516 IHRvcDsnPlBhdGllbnQg WlFsSYb0R6SoNfq3HKRs hMudEK7hpLVjBYwfSr6m nKsaqZeoOJ8bNFXk esydz151QlJqg2kcGPLf mDHrMUcoUJI0H07ew5F3 MKKgMASuAOR7pRX8pU7a bGlnbjogbGVmdDsg csFhgTcdLLzqUWdcZ508 IHRvcDsnPkJpcnRoIERh zZL4XE17PO81pDZqm5H9 dUZ5Q5GpZPFvedfw raosgOJ5QBNeYIDbqX98 Zj9csShuGz7kVWPlMDE9 BWIjjFOfX9ZasB4kOkUh UFZbKDVtW8FfvVDw WMenJ017NCiaEgC2OCBc pnWaL1HtSBIwaErbXgQ7 w3A3Op7CS6K3ML82QH70 tCZxi7E2lBP0S2Lu QRUupptrdnulePK2CVNb VABuwM81Sp0iiVbwRk3y WHZqCYI7ITCeaUVlT9Qs tZ2xBoIxGYVbHKNa D4ZiqPNfHGhjC125MYpf MuR2BIFjydXuG8ZpKLBs nLbuZqA7u6P9Vi5JGOx4 FG43DM92qGKbm9B2 bIT9T3DoILKeacisahir kLL0ENVfAOLfnS56Hh7t gWdpGm3lGLEkIQB1IVKw dJGmI9CljD2iYoEg ZEYsEZIeC4AiiFUcKNtd P572QZicPfD6HWYyhkDn G0ZxGGEyjPaxPnU5l8Q2 Nq7TXUJiZF34OBL2 vXI6MG42NJ91O2TtHnrw dGFibGU+PHRhYmxlIHdp ZHRoPScxMDAlJyBzdHls GP1zNf4oSQJfUUZb sHctaRFeQfQjr0ktMOGx BIsvOJ9wsOqyZ2AaiSZ1 OUJte7f5Xj03R39nI2Bk dXA+KUNcfYS1vYY3 iZ0bWxQfRpR7FJacM530 PaHitPUhHllsq6tzd5rp wSv2LpR6OZPutgHinFgq PAO2o3EiGp89T67e IHdpZHRoPSIxNSUiIHZh xKtpbp0urP4qWc1+PGNv mZW7uDX6sZ6hWmPrMuW9 WAohK292IuMztSBf Sdfja5vzc3qjwJh4TeXx NDUqykRbiYryIRU1p0Wr Ni90B9ZseCsfp5YyYgv5 hm14cOReb9B2hGL6 I2QsCFLzigaeuYNkwNxy EM8qWNHyzpuyWYWpuS2s DKXaN7z3AcVyJvP0PBho P0EyurB0KRVcpVYb MGjuGAO7X14ut4J1UPDn BCFqKEY7kUD4nD3blQxz bjogbGVmdDsgdmVydGlj KEnkMBomC992JODz yPtpRNRpmG0lWGXmeIRr oFumNJ3jMJDbekfwNudF BYDwKAmIFJRBGU54XW88 fLJfp5X7oVH6P3Qi ZOLrptgnxbxxkZY2ZOBb UPFcjU65rOYuTDgmJb0d x1T6y887ULCmLOUysQ70 Ci7goIgyDTVulFOL lN5iummip3vpvptyEzHu XREbTQk3MMd9SOCooKqr YoVwZPT0QhN9HFX5qSLc nX2yvKsmzkvhjA1i Oyc+LMDfUrbbMDs2BLyt dGQ+GOWgHXV9mDdeJUfq ILOrrQ4eENSfB1e4AtVm OyQ3PSpaA0EzFZGu vgenBy49gT7iVxUiQgW8 KSbhJ3AmibZ1HUXlyPRz IOotMZY2D74je9O6RRRd SATdKXZ8fER6kD0c bGlnbjogbGVmdDsgdmVy lMzlASwuJIirP682MGKy zXunRqYuIJdvVKPwER72 YJ74nVKlt5G1hXY5 A2IfGHBpbqreqowpbOR8 LSDeHHYorL29dEAbGHxa Cd0ns3G1x829ODLlUZNl cA32Yr7fiHuuXBDj zZPJtX4awmpte7lpfcrz IkQgLPGpHSu5VWj8UCGd fLsfTgZgCWB3KyT9NMQ4 zQKkhB7roZtmxoev nY4zUrb+YhDqWGrnPH57 LV01eIRwh1Q8yEA5C3Ml TRPjkaiyhcedlAX3QERo UCVbpE83dIJjZNpp Oq9vn8N6a265EFJaHMIb uP48Bo1ruVdfKZKqdWIF fF1qborrs1rltsrfZkTi HENqNBi2YLs6VAPg zZrtAyGwWWK7PzZ7ATN3 oDUyvG1lbDmxadyejS5x Oyc+J4O7cJC9iKMgtNyr dGQ+QP18ba06T2Py WdgxQzg8DRRkKNL3iLG7 jB6iCEFsZRdee8V2cQC4 D5VgytVgat2fk6psMGAn TGxiE89wtRYkh4Y9 JBCukJW1PXRjdRqmEhPj xS72Owo+EKGoeBudz2Ls Nynia8wcf1azqCs0ZbVo JSIgdmFsaWduPSJ0 i5EfUs31T77cCZxiULZv URHfNBNwTNLkvZkstn3i jT0oJr0+JLCqzTV8rYE8 sA5bYgFlIjL5OLvs B942RbPdnAOjRibnx4xd r9yfnHg1GrOsHAYbhcMo fXqwEFJ7m3IfHf36H1Xq fSkxy3SzPag9du22 zUIrd1N1zJD3X1ItESWq iduweDGrbSckSB2kGAKe ifijKFBnhT2qHOUmU9g2 KuHkDjG1GCywT5Jd hqM2DRZkeNZyMSNmbKTA mE6wkwntc2zdtzfbGtJj HMFtBEc7NYm2MLIrtNqx KzMmNKG4QdE2RGB7 jOEonC6jhMvcaorprM0x Oyc+EDn2a7ghqQVxCW8a mJP3ZD08SU21fPWyd7K9 iRW0A5GkERKcgvdv qmcagXI5CKJvUGIwyQ64 Ne9xsCukRz0zWJXoMIZ2 ELJlgQScD7JrkR7bLoXw HKMjKNQjB0FvbVEw IKevL421ALkzZpN5XEXn dsFcH1QdORZuhDevGiH3 n6U0Aj1SVL31JU05AG30 lBMlk8F6dAV3S2Zy IXAokjfpunjtuXS4BWPy VTSlaF24Eq7moWkyOi6c XWLsDEO2ONKwjJMvD4Hf xI8oXsDfUVOgBSBv C8ZseSPqCNuaR982YPeb PoV3QEZbiiUzT2AxOYJu iMrqNnG3a9O0Zu2JJn22 EF32IX97vUVok0Y0 bDW3C8GgOQUqveejlwvw hYA3FWOvZLMsoE00Lk0w rMusHq7tSRQzVYO2VFVa nQQlJ5GfcJ8jWwAu SFNoAQBnB8WhjMQpPEdz A843QTvqOtP0IKCeyfQu L8YpZKZquYprHnM8l0I4 Yb0QXWdaavp0I5Wx PjwvdHI+PT98DKEwOW25 aOSpuFZeb8rcjJt2ShOh UJKeSFK9yBcwUNxyc8Uw XXOvY26cdEUmw7Q0 IGNv (more content not included)... Normal [facility] Coding Summary. CD:[id number] Gh0bWw+PGhlYWQ+PE1FV ISbI95qwCUjlR1VP9bTB C9IZCEDZSIDWF4KXB5se GW6FXbjB2SdctYc HdtqxMDpPG67IKm1AOB4 aZxpPUynzV6sbYTjG8v4 XsCsAA04hQ47GZvsTYMt OjC6QkAphnwgwYId L0lbVfNsuWDiQmp+PHRh YmxlIHdpZHRoPScxMDAl GvJvzDaaTZ4yPj1fLPWf LWNvbGxhcHNlOiBj y1svKWToKBnwSX3gcRqe X4ElxKI6CEHdd0z3Na28 dHI+RGEzNDZ6tDmxGRkg l607HdZhm9luBMR4 cBGrNIrcLPG5Y28su6Y2 MBUoQJMwDUK0wRR2vP4q vCaluiueB0UbiMVqQwQ4 ZBN0yQOpwB6qmXmz pcdyuD8rBfz+L38GVI8I ADFXVA3IEgq8X2QmCfpv dHI+ED87IJLoFN09kKNq vFDej4rfgOt9GuBn ABYyQKX0hMryMIjug5Qy YBWwR89kxWFgb8R8JVUk hYkjcPGyKmYycTT4kK4r MOnhraymv5ffgprq Uwtfi2xrir99dQ11B09j LYryHVJyXYP6TSVbGGVz oWyfds6pcH8xRu2+IDxj g6tvh3hyaSj6PaWa GHDskaYmbOlvYNU2l8Lz Xe93Z2YmiXqmp2OvEjt8 xx67xDBwh5D1fIH8EPvv KMNmsV3hNUiwUdK2 RZKiBfYdyZ83wTZyJJel Qw5ebKszhLwaAJ2zVSHy behkEKBttC7zZJBubXZc lZfcVD5cSAFljhiv m362TpLqCTG5XKEklEJa X6CogP9fMtTnKXJlJRWf D8FejIUcFZdcI736HXyd UiK5GGHkccLlU0Js ZPBoxOdrEpY5z6A0Qy4P a6VuztjzWEL0PUsqDOJs WhZ5RjPfXpO8B0FjQcc9 IHYwhFdeNA3gW6Pi VMGuswtvaqoviTJ1NFNl JRIsmL64fQNaPIklSg6x h4X8a121MEGxSVAkiT86 Wt4jbKuvYQUxgONU mK0hlrpxd6jdgkgeJuQm EAWzKEf2NMc0FAVvcApd FtOyUNR9KaX6XDZ8xGDy qD7geLobrnbooG9y Oyc+D11ltH6aWAE7LEA5 nezrLQXluwPwFB26RB53 W0XaIlkjdTLnlBP+PGRp tfXivLohPE2xJrQe m2wuv0SrFCjeA4BuJKTk UQphTfl3WXTxDSC1uXD1 aE5eWYFqQBvxx6H9xEB4 B2MjacTiel4eg9uh JAMrBFheG76hbWGgg5V7 PZVlsYX3HRKlmQkoCxGk wT01Cge+KBNdhVcpm1Fq Eqizn7ejl3fxhBg4 IjMwJSIgdmFsaWduPSJ0 v5QwFd40Q95iOLxfFIHq RRCmBCDcXTRoyYtkux2x fS4nLw0+PGNvbCB3 zXV1uP5nZMJcYwD4DBqj Q008AtAedOJgCcpmq5ny n2knzMu6YpScVBWqstYf wOidUDS7f1CzSa08 M27bCAenUTLvATRlKHMk EWXqnXvijr7kuK2wAe9+ DW6dv9xjpk24vW73zOU+ POZuGXC3cPrcMNiq BYSleH9cVAwvNmQ6WEPl JbVxwR09wLZiDSgrXd6x mRrogKwyBL5tHCGlspgh n932YoBzd2rdQBAl nHAwDLryVIA7W97ne6A9 ZVLvUNEtGMH8sCM2zB3n bGlnbjogbGVmdDsgdmVy jXtrSNzoUYavP774 IHRvcDsnPlBhdGllbnQg WrHaVOy5O2FkAiy2IAEm dZeiUZ9geRJkQCkiDy3i xRimbZghVA7bHSSw ofhzm019TdPbl0gkRZEw hJYjJDohSHD2D22cu5U0 NTOaFNRoHTJ8eFJ4qR2v bGlnbjogbGVmdDsg nlUqyUemUVqzUEmdN917 IHRvcDsnPkJpcnRoIERh zRH6KT62PK54nOVcj4S0 nNI5P7UkCLGjjorm dyxlwZV4IHAhCIBazD20 Jj9noQqdFa2rSYIjIHE8 RQGqeKIlM1TlxC5bOqHy ANZdSLDqZ3AkkLHe QEbuI472VVlaOoO2GWGr nsGvC9MaHTGkvPdnZtY0 g7O8Mm6QP5S1LY66PY71 bHHmv1V9rOF5Z6Wo PQTjeprigyfnaJR9VDBi CYEknJ37Ay2rcGbiGr2a UDCuHSR6XAFvyIFiM7Xl hE9aLsPpPQOvBMBj G8DvqVGwIRsgB105KAsu RsZ2SOYowjUlR7XzGGXv cCsoNvZ7l9R0Cg7NBKe4 TE97CV80bOJin2R1 lTJ8Y2NwPHJumbkcxgkt tTX2ZQApNWBnxT67Di6e xPvmQg7wXILkDFO1BORc dRIaK1TrqM8kVgUs EAQlFIAsA5TfdKScWDxa E730QBwrTsI6ZNOuwqSf U7NuIDElwDmtKvD3y4T6 Br2STIMuHY71UZS6 dCW8UX11TY82R6NtFwxy dGFibGU+PHRhYmxlIHdp ZHRoPScxMDAlJyBzdHls WZ8mRb7nANTsHARm oRkouBCcUuNjw3ewVNCp CLozEV2liForC3YagEH4 IEXaf7e1Uu44S68lE4Wd dXA+ZBXhbGP6pKE4 gN3vNpPiXbB3TSfeM135 LhSvqWKvVeqlf0jjq5jc aAs0MqO6PCJgvqWpfWty ULO8z4PdXc16O27q IHdpZHRoPSIxNSUiIHZh zCpheh6xzF2hAc4+PGNv zMO3zNV4uS3eJeQoAeK1 EQzqD457IdOnyBZn Zhfic5xzy9jrpRm7WxMa JIKaeuBveNcrRWZ0y1Mh Qs80Z4UnmPwot1EgSbo3 om46iGUcl3N8lCJ5 N0AgAMUqxnkfqHHhlYiu MX6bABYaelhuZFPfvF4t FFZoY1z4SaApXjY9DUpl T9LrdwE1YBVndZEu AQefVOU1V40uu8D2KYIe MWNdEHH8eVA4qT2ieIjk bjogbGVmdDsgdmVydGlj NBrcAXzuK331UJDo wDazVGBehY4qCQJorGPp cNmgIS3hTWDwjpjsWgpB LHZxGBzIHYOZBN91YO72 lYMhm4F6hEF2Z4Tu NBRebdddznxnrBB6DINs GTSocD46eLHjYGtwQh5g s6Y8i706OQCvAFPytY17 Fc8gsJkgBVAofBOK aM6chhyyb2kcjyroKiXg GQRxROn9ZIw3HGMsjRgl KcTfPIK7EnJ0JDW7kXUb wU3eoUwvwuuzyU7g Oyc+IAWcMptnQJc8UXbo dGQ+BEBzRGQ3xSniQZlm NPQxdP7lFGNyN3r1OzSt BxC7MFspQ9WlAIQp huodIq36uP3gOzGuZyN4 FOzvZ4LoczC2RTJhkKTl JEkdKKC2L57pn6I3QYJd AEHxPDI0bLD5sH5f bGlnbjogbGVmdDsgdmVy nHzkBNacXMrwL491XYPk iYtpErRhFRrbRPItYF47 GV75gXHcx1J3lFO2 L2DoIGHoilsyfocynNW9 LDSbLUZknT86hHJzZYee Lx5ep0I7h801XKVxTSWo xZ90Qx0raVxjAVTl rJZZfF4atsxow7ezyyvs JcFiARObRYy2HMl3QANf vGeeRkUvLIN3DeN5EPN9 wYEwbK0woHeejnxc pB2oQfg+WxGqXUmhJB86 FU18uJJwt5J0pOM7B8Qy HJGxqnejfygxlBZ9TCNe IYLmzN25uDAbBEzd Cd7so2R8h466IGOpCBDk jJ59Wf4wzWbhNRIhiFWY jE4kbkeen2ixfvbfVyFc YQTsUAf1LWw7VLMp rNgkQqPgBAO1UzE2QHW1 vGAdnA5poFvptrzapB7w Oyc+XUPcDVSoh1Csw9Ke SU68BW30J3KtHzmw dGFibGU+PHRhYmxlIHdp ZHRoPScxMDAlJyBzdHls ZV7rNn6mTQJrEUQqsAyx sJTvVfIrh2ygBHZp KUfuLL4frZnkH8RzgAX5 ZTLlg9h2Ua64I13jK9Gk dXA+TOWqcYX0uEW0eB2j WkOmHqQ5QLugY858 KhPlvKCxNspyy2ihq2cg zUk3LlOzQSCpfzCijYip QRW1y5OsUv44Z09sQGur ZHRoPSIyMCUiIHZh aGzgpr8dzZ7gMf9+PGNv tSY1fAA0fD2rUaHrYsF2 TKbhM405FsLniWByVdlk Z50kJ4AclGZ+PHRy Lfg1BZGsdWarQU2eiOAo ZMamGm3fKZA8BsPoMjYn QSzoV7HfYCYvrulceqfz hEE7SGOoPLZrjI48 Ni8oqCfdXj6qYANtLVG1 QXTxfNAfB2OmxF6zIrPn YGImOKTgX6RgtHPdINbm A819BAgzEkN3CZKz ovKpZ0FeLBGzsKdoIpM8 a7I1Zl7RnEdmeTLyFC9r AuZxRBm4L9GlQws1OTWe tAqaJW1vnEFgNPkg Vt9fiVaphGxcHO6iPGVr etceg154FyHkz2mvPYZo lRThKMseSBV3C60qf4G6 RQXeUXZaSQG7nVQ9 wE3paJpgeiyeeWYwuQik wsMlzHalXAcxQGvfU956 FPXyqSvlLlOQAdo4D8Iu Jsc4NUFdxBqdZC6w dPFePQhnZz2okJtypZet BX6cHIRydusdy964FyCe w3fuJJRwaVBiSGdmJDK9 U63kg5T1CMBeONMz UDT7jKF9nY8iqTdafbpp bGVmdDsgdmVydGljYWwt TTneX499CKEbhImiXq5S Dbv4Q1GlBon8ITNf cRlzPW8awNXsPNupIj0c rTjkzBovJC2rCULbwmfe w111PwQwq0ttUFUqzORw SBotORE9K50zw9W9 AVLsBBKwTXN2yUM4zG8s bGlnbjogbGVmdDsgdmVy hPriBAbkZBoqX699IGGp cDsnPlBheWVyOjwv dGQ+ZU55rh92I6AoGbpu Bly4XGVtNXV8zXW0zJ9k VSXlRDbwo0P6qZT9T9Io dgOkeu9sa1nmPVGj ZTog (more content not included)... Normal [facility] PAP [id number] 08-15-2021 Cytology report Cyto stain Doc (Cvx/Vag) Note Invalid Interpretation Code [facility] Comment on above: Result Comment: TEST S RESULT FLAG UNITS REF RANGE LAB Clinician Provided Cytology Information Source.............[employer] No. of containers..01 ThinPrep Vial DIAGNOSIS: 01 NEGATIVE FOR INTRAEPITHELIAL LESION OR MALIGNANCY. Specimen adequacy: 01 Satisfactory for evaluation. No endocervical component is identified. Performed by: Byron Engle [employer] Teacher (AS[employer]) . 01 Note: Note 01 [...] <-Panic Low,>-Panic High,A-Abnormal,AA-Critical Abnormal Performed at: [address] [id number] Mar Rivera MD, Performed By: #### 1 [id number] #### [facility] [address] [place] [address] HPV 16+18+31+33+35+39+45 +51+52+56+58+59+66+6 8 DNA Probe+sig amp Ql (Cvx) Negative Invalid Interpretation Code Negative [facility] Comment on above: Result Comment: This nucleic acid amplification test detects fourteen high-risk HPV types (16,18,31,33,35,39,45,51,52,56,58,59,66,68) without differentiation. Performed at: [address] [id number] MD Nicole Manuel Performed at: = [address] [id number] MD Nicole Manuel Performed By: #### 1 [id number] #### [facility] [address] [place] [address] Insulin Lvlon 08-11-2021 Insulin Qn 24.3 u[IU]/mL Invalid Interpretation Code 2.6-24.9 [facility] Comment on above: Result Comment: Perf ormed at: [facility] [id number] PhD Archie Jha Performed By: #### 1 [id number] #### [facility] [address] [place] [address] Consent for Treatmenton 07-29 Consent for Treatment [id number] #1.00CD:127 Normal [facility] Glu Fastingon 08-10-2021 Glucose [Mass/Vol] 95 mg/dL Normal 55-99 [facility] Comment on above: Performed By: #### 1 [id number] #### [facility] [address] [place] [address] Physician Orderon 08-10-2021 Physician Order [id number] 2#1.00CD:127 Normal [facility] PAP [id number] 08-09-2021 Collection Technique BRUSH-SPATULA Normal F [facility] Comment on above: Performed By: #### 1 [id number] #### [facility] [address] [place] [address] Gynecological Body Site ENDOCERVIX Normal [facility] Comment on above: Performed By: #### 1 [id number] #### [facility] [address] [place] [address] Physician Orderon 08-09-2021 Physician Order [id number] #1.00CD:127 Normal [facility] Gynecology Office/Clinic Not pratik 02-17-2019 Gynecology [...] Family History Family history is negative [facility] Comment on above: Result Comment: Elec [...] Family History Family history is negative [facility] Comment on above: Result Comment: Elec tronically Signed By: Shamika ISAACS, Kaley Wilson\.br\Date and Time Signed: 02/17/19 12:09 EDT Vital Signs Date Time Vital Sign Value Performing Clinician Facility 09-29-2024 11:34-0500 Body mass index (BMI) [Ratio] 36.18 kg/m2 Immanuel Yobani DO Work Phone: [facility] 09-29-2024 11:34-0500 Body weight 89.72 kg Immaneul Yobani DO Work Phone: [facility] 09-29-2024 11:34-0500 Diastolic blood pressure 88 mm[Hg] Immanuel Yobani [employer] Work Phone: [facility] 09-29-2024 11:34-0500 Systolic blood pressure 140 mm[Hg] Immanuel Yobani [employer] Work Phone: [facility] 09-22-2024 09:37-0500 Body mass index (BMI) [Ratio] 35.85 kg/m2 Immanuel Yobani DO Work Phone: [facility] 09-22-2024 09:37-0500 Body weight 88.91 kg Immanuel Yobani DO Work Phone: [facility] 09-22-2024 09:37-0500 Diastolic blood pressure 70 mm[Hg] Immanuel Yobani [employer] Work Phone: [facility] 09-22-2024 09:37-0500 Systolic blood pressure 120 mm[Hg] Immanuel Yobani DO Work Phone: [facility] 09-08-2024 08:28-0500 Body mass index (BMI) [Ratio] 35.56 kg/m2 Immanuel Yobani DO Work Phone: [facility] 09-08-2024 08:28-0500 Body weight 88.18 kg Immanuel Yobani DO Work Phone: [facility] 09-08-2024 08:28-0500 Diastolic blood pressure 90 mm[Hg] Immanuel Yobani DO Work Phone: [facility] 09-08-2024 08:28-0500 Systolic blood pressure 132 mm[Hg] Immanuel Yobani DO Work Phone: [facility] 08-27-2024 11:45-0500 Body mass index (BMI) [Ratio] 35.08 kg/m2 Immanuel Yobani DO Work Phone: [facility] 08-27-2024 11:45-0500 Body weight 87 kg Immanuel Yobani DO Work Phone: [facility] 08-27-2024 11:45-0500 Diastolic blood pressure 82 mm[Hg] Immanuel Yobani DO Work Phone: [facility] 08-27-2024 11:45-0500 Systolic blood pressure 122 mm[Hg] Immanuel Yobani DO Work Phone: [facility] 08-12-2024 11:08-0500 Body mass index (BMI) [Ratio] 34.93 kg/m2 Immanuel Yobani DO Work Phone: [facility] 08-12-2024 11:08-0500 Body weight 86.64 kg Immanuel Yobani DO Work Phone: [facility] 08-12-2024 11:08-0500 Diastolic blood pressure 80 mm[Hg] Immanuel Yobani DO Work Phone: [facility] 01-15-2025 11:08-0500 Systolic blood pressure 120 mm[Hg] Immanuel Yobani DO Work Phone: [facility] 07-20-2024 11:00-0500 Body mass index (BMI) [Ratio] 34.39 kg/m2 Immanuel Yobani DO Work Phone: [facility] 07-20-2024 11:00-0500 Body weight 85.28 kg Immanuel Yobani DO Work Phone: [facility] 07-20-2024 11:00-0500 Diastolic blood pressure 76 mm[Hg] Immanuel Yobani DO Work Phone: [facility] 07-20-2024 11:00-0500 Systolic blood pressure 122 mm[Hg] Immanuel Yobani DO Work Phone: [facility] 06-22-2024 14:31-0500 Body mass index (BMI) [Ratio] 34.2 kg/m2 Immanuel Yobani DO Work Phone: [facility] 06-22-2024 14:31-0500 Body weight 84.82 kg Immanuel Yobani DO Work Phone: [facility] 06-22-2024 14:31-0500 Diastolic blood pressure 78 mm[Hg] Immanuel Yobani DO Work Phone: [facility] 06-22-2024 14:31-0500 Systolic blood pressure 124 mm[Hg] Immanuel Yobani DO Work Phone: [facility] 06-15-2024 10:27-0500 Body weight 84.82 kg Cele Rodriguez MD Work Phone: [facility] 06-15-2024 10:27-0500 Diastolic blood pressure 88 mm[Hg] Cele Rodriguez MD Work Phone: [facility] 06-15-2024 10:27-0500 Heart rate 99 /min Cele Rodriguez MD Work Phone: [facility] 06-15-2024 10:27-0500 Respiratory rate 18 /min Cele Rodriguez MD Work Phone: [facility] 06-15-2024 10:27-0500 Systolic blood pressure 137 mm[Hg] Cele Rodriguez MD Work Phone: [facility] 05-25-2024 11:46-0400 Body mass index (BMI) [Ratio] 33.84 kg/m2 Immanuel Yobani DO Work Phone: [facility] 05-25-2024 11:46-0400 Body weight 83.92 kg Immanuel Yobani DO Work Phone: [facility] 05-25-2024 11:46-0400 Diastolic blood pressure 74 mm[Hg] Immanuel Yobani DO Work Phone: [facility] 05-25-2024 11:46-0400 Systolic blood pressure 118 mm[Hg] Immanuel Yobani DO Work Phone: [facility] 04-27-2024 10:35-0400 Body mass index (BMI) [Ratio] 33.75 kg/m2 Immanuel Yobani DO Work Phone: [facility] 04-27-2024 10:35-0400 Body weight 83.69 kg Immanuel Yobani DO Work Phone: [facility] 04-27-2024 10:35-0400 Diastolic blood pressure 76 mm[Hg] Immanuel Yobani DO Work Phone: [facility] 04-27-2024 10:35-0400 Systolic blood pressure 122 mm[Hg] Immanuel Yobani DO Work Phone: [facility] 03-27-2024 10:27-0400 Body mass index (BMI) [Ratio] 34.53 kg/m2 [facility] 03-27-2024 10:27-0400 Body weight 85.64 kg [facility] 03-27-2024 10:27-0400 Diastolic blood pressure 70 mm[Hg] [facility] 03-27-2024 10:27-0400 Systolic blood pressure 120 mm[Hg] [facility] 01-02-2024 09:15-0400 Body height 157.48 cm [facility] 01-02-2024 09:15-0400 Body mass index (BMI) [Ratio] 33.9 kg/m2 [facility] 01-02-2024 09:15-0400 Body temperature 100.2 [degF] [facility] 01-02-2024 09:15040 Body weight 84.08 kg [facility] 01-02-2024 09:15-0400 Heart rate 115 /min [facility] 01-02-2024 09:15-0400 Respiratory rate 18 /min [facility] 01-02-2024 09:15-0400 SaO2% (BldA) [Mass fraction] 99 % [facility] Encounters Encounter Date Encounter Type Care Provider Facility Start: 09-29-2024 End: 09-29-2024 Bamboo flowsheet Immanuel Yobani DO Work Phone: [facility] Start: 09-29-2024 End: 09-29-2024 Bamboo flowsheet Immanuel Yobani DO Work Phone: [facility] Start: 09-29-2024 End: 09-29-2024 flow sheet Immanuel Yobani DO Work Phone: [facility] Comment on above: 36 weeks gestation o f ; Third trimester Start: 09-23-2024 End: 09-23-2024 Clinisync Result Encounter [...] Start: 09-20-2024 End: 09-20-2024 ambulatory NON STAFF Facility:[facility] Start: 09-20-2024 Non-patient / Non-visit [facility] Work Phone: Start: 09-16-2024 [...] Department Unsolicited Start: 09-12-2024 Non-patient / Non-visit [facility] Work Phone: Start: 09-09-2024 End: 09-09-2024 Clinisync Result Encounter Immanuel Yobani DO Work Phone: [facility] Unsolicited Start: 09-09-2024 End: 09-09-2024 Clinisync Result Encounter Immanuel Yobani DO Work Phone: [facility] Unsolicited Start: 09-09-2024 Non-patient / Non-visit [facility] Work Phone: Start: 09-08-2024 End: [...] Bamboo flowsheet Immanuel Yobani DO Work Phone: [facility] Start: 08-12-2024 End: 08-12-2024 Bamboo flowsheet Immanuel Yobani DO Work Phone: [facility] Start: 08-12-2024 End: 08-12-2024 flow sheet Immanuel Yobani DO Work Phone: [facility] Comment on above: 29 weeks gestation o f ; Third trimester ; Gestational diabetes mellitus (GDM), antepartum, gestational diabetes method of control unspecified; Encounter for in vitro fertilization Start: 08-12-2024 End: 08-12-2024 ambulatory IMMANUEL YOBANI Not Available Start: 08-05-2024 End: 08-05-2024 Clinisync Result Encounter Immanuel Yobani DO Work Phone: [facility] External Department Unsolicited Start: 08-05-2024 End: 08-05-2024 Clinisync Result Encounter Immanuel Yobani DO Work Phone: [facility] External Department Unsolicited Start: 08-05-2024 Non-patient / Non-visit [facility] Work Phone: Start: 07-20-2024 End: 07-20-2024 Bamboo flowsheet Immanuel Yobani DO Work Phone: [facility] Start: 07-20-2024 End: 07-20-2024 Bamboo flowsheet Immanuel Yobani DO Work Phone: [facility] Start: 07-20-2024 End: 07-20-2024 flow sheet Immanuel Yobani DO Work Phone: [facility] Comment on above: 26 weeks gestation o f ; Diabetes mellitus screening; Second trimester ; PCOS (polycystic ovarian syndrome); resulting from in vitro fertilization, antepartum; Gestational diabetes mellitus (GDM), antepartum, gestational diabetes method of control unspecified; Elevated glucose tolerance test Start: 07-20-2024 End: 07-20-2024 ambulatory IMMANUEL YOBANI Not Available Start: 06-29-2024 Non-patient / Non-visit [facility] Work Phone: Start: 06-22-2024 End: 06-22-2024 [...] Cele Rodriguez MD Work Phone: [facility] [place] Comment on above: 21 weeks gestation o f (Primary Dx); Chronic hypertension affecting ; In vitro fertilization Start: 06-15-2024 End: 06-15-2024 ambulatory [facility] Start: 05-28-2024 End: 05-30-2024 Clinisync Result Encounter Immanuel Yobani DO Work Phone: [facility] Unsolicited Start: 05-28-2024 End: 05-30-2024 Clinisync Result Encounter Immanuel Yobani DO Work Phone: [facility] Unsolicited Start: 05-27-2024 End: 05-27-2024 Chart abstracting Cele Rodriguez MD Work Phone: [facility] Start: 05-25-2024 End: 05-25-2024 Bamboo flowsheet Immanuel [...] Not Available Start: 01-02-2024 End: 01-02-2024 ambulatory [facility] Work Phone: Start: 01-02-2024 End: 01-02-2024 Patient encounter procedure [facility] Work Phone: [...] Date Procedure Procedure Detail Performing Clinician Start: 09-29-2024 Urnls dip stick/tabl et rgnt non-auto w/o micrscp Immanuel Yobani DO Work Phone: Start: 09-23-2024 US OB BPP W NON-STRESS [...] malign ant neoplasm of cervix Pap Smear [facility] Start: 06-15-2025 Tobacco Screening Tobacco Screening [facility] Start: 09-29-2024 End: 09-29-2024 Patient encounter procedure [facility] Comment on above: Arrived Start: 09-22-2024 End: 09-22-2025 CULTURE, GROUP B STREP WITH SUSCEPTIBLITY CULTURE, GROUP B STREP WITH SUSCEPTIBLITY Lab Routine Third trimester Expected: 09/22/2024, Expires: 09/22/2025 [facility] Work Phone: Comment on above: Expected: 09/22/2024 , Expires: 09/22/2025 Start: 09-22-2024 End: 09-22-2024 Patient encounter procedure [facility] Comment on above: Arrived Start: 09-20-2024 Urine culture [facility] Start: 09-08-2024 End: 09-08-2025 Alanine aminotransferase [Enzymatic activity/volume] in Serum or Plasma ALT Lab Routine induced hypertension, antepartum Expected: 09/08/2024 (Approximate), Expires: 09/08/2025 [facility] Comment on above: Expected: 09/08/2024 (Approximate), Expires: 09/08/2025 Start: 09-08-2024 End: 09-08-2025 Aspartate aminotransferase [Enzymatic activity/volume] in Serum or Plasma AST Lab Routine induced hypertension, antepartum Expected: 09/08/2024 (Approximate), Expires: 09/08/2025 [facility] Comment on above: Expected: 09/08/2024 (Approximate), Expires: 09/08/2025 Start: 09-08-2024 End: 09-08-2025 CBC W Auto Differential panel - Blood CBC and differential Lab Routine induced hypertension, antepartum Expected: 09/08/2024 (Approximate), Expires: 09/08/2025 [facility] Comment on above: Expected: 09/08/2024 (Approximate), Expires: 09/08/2025 Start: 09-08-2024 End: 09-08-2025 Creatinine [Mass/volume] in Serum or Plasma Creatinine Lab Routine induced hypertension, antepartum Expected: 09/08/2024 (Approximate), Expires: 09/08/2025 [facility] Work Phone: Comment on above: Expected: 09/08/2024 (Approximate), Expires: 09/08/2025 Start: 09-08-2024 End: 09-08-2025 Lactate dehydrogenase [Enzymatic activity/volume] in Serum or Plasma by Lactate to pyruvate reaction Lactate dehydrogenase Lab Routine induced hypertension, antepartum Expected: 09/08/2024, Expires: 09/08/2025 [facility] Comment on above: Expected: 09/08/2024 , Expires: 09/08/2025 Start: 09-08-2024 End: 09-08-2025 Protein, urine, 24 hour Protein, urine, 24 hour Lab Routine induced hypertension, antepartum Expected: 09/08/2024 (Approximate), Expires: 09/08/2025 [facility] Comment on above: Expected: 09/08/2024 [...] AM EST Routine [facility] [address] [place] [id number] Immanuel Hilton, [address] [place], [place] [id number] [facility] Start: 08-27-2024 End: 08-27-2024 Professional / ancillary services management 08/27/2024 11:00 AM EST Ancillary Procedure [facility] [address] [place] [id number] [facility] Start: 08-12-2024 End: 08-12-2025 [...] mellitus screening Expected: 07/20/2024 (Approximate), Expires: 07/20/2025 [facility] Comment on above: Expected: 07/20/2024 (Approximate), Expires: 07/20/2025 Start: 07-20-2024 End: 07-20-2025 US for US OB SCAN FOR GROWTH Imaging Routine PCOS (polycystic ovarian syndrome) resulting from in vitro fertilization, antepartum Expected: 07/20/2024 (Approximate), Expires: 07/20/2025 [facility] Comment on above: Expected: 07/20/2024 [...] End: 06-15-2024 Patient encounter procedure [facility] Start: 05-25-2024 End: 11-23-2024 Alpha fetoprotein, maternal Alpha fetoprotein, maternal Lab Routine Second trimester Expected: 05/25/2024 (Approximate), Expires: 11/23/2024 [facility] Comment on above: Expected: 05/25/2024 (Approximate), Expires: 11/23/2024 Start: 05-25-2024 End: 05-25-2024 Patient encounter procedure [facility] Comment on above: Arrived Start: 05-05-2024 End: 05-05-2024 Professional / ancillary services management 05/05/2024 2:30 PM EDT Ancillary Procedure [facility] [address] [place] [id number] [facility] Start: 04-27-2024 End: 04-27-2025 US Pelvis transvaginal US OB transvaginal Imaging Routine Encounter for screening for cervical length Expected: 04/27/2024 (Approximate), Expires: 04/27/2025 [facility] Work Phone: Comment on above: Expected: 04/27/2024 (Approximate), Expires: 04/27/2025 Start: 04-27-2024 End: 04-27-2024 Patient encounter procedure 04/27/2024 10:20 AM EDT Routine [facility] [address] [place] [id number] Immanuel Hilton, DO [address] [place] [address] [facility] Start: 03-29-2024 COVID-19 Vaccine ( season) COVID-19 Vaccine ( season) [facility] Start: 03-29-2024 Influenza vaccination N [facility] Start: 03-27-2024 End: 03-27-2025 ABO/Rh ABO/Rh Lab Routine Missed menses Expected: 03/27/2024 (Approximate), Expires: 03/27/2025 [facility] Comment on above: Expected: 03/27/2024 (Approximate), Expires: 03/27/2025 Start: 03-27-2024 End: 03-27-2025 Blood type and Indirect antibody screen panel - Blood Type and screen Lab Routine Missed menses Expected: 03/27/2024 (Approximate), Expires: 03/27/2025 [facility] Work Phone: Comment on above: Expected: 03/27/2024 (Approximate), Expires: 03/27/2025 Start: 03-27-2024 End: 03-27-2025 US Pelvis transvaginal US OB transvaginal Imaging Routine Missed menses Expected: 03/27/2024 (Approximate), Expires: 03/27/2025 [facility] Comment on above: Expected: 03/27/2024 (Approximate), Expires: 03/27/2025 Start: 2020 Screening for malign ant neoplasm of cervix Pap Smear [facility] Start: 2018 DTaP,Tdap and Td Vac cines (1 - Tdap) DTaP,Tdap and Td Vaccines (1 - Tdap) [facility] Start: 2017 Adult BMI Screening Adult BMI Screen ing [facility] Start: 2011 Depression Screening Depression Scre ening [facility] Start: 2011 Tobacco Screening Tobacco Screening [facility] Start: 1999 Screening for Chlamy leoncio trachomatis Chlamydia Screening [facility] Bacteria identified in Urine by Culture Urine culture Microbiology Routine Missed menses Ordered: 03/27/2024 [facility] Comment on above: Ordered: 03/27/2024 CBC W Auto Different ial panel - Blood CBC and differential Lab Routine Missed menses Ordered: 03/27/2024 [facility] Comment on above: Ordered: 03/27/2024 CHLAMYDIA TRACHOMATI S (GENITO/STI) CHLAMYDIA TRACHOMATIS (GENITO/STI) Lab Routine STD exposure Ordered: 05/25/2024 [facility] Comment on above: Ordered: 05/25/2024 Cytology Cervical or vaginal smear or scraping study Pap Smear Pathology and Cytology Routine Well woman exam with routine gynecological exam Ordered: 05/25/2024 [facility] Work Phone: Comment on above: Ordered: 05/25/2024 Hemoglobin A1c/Hemoglobin.total in Blood Hemoglobin A1c Lab Routine Missed menses Ordered: 03/27/2024 [facility] Comment on above: Ordered: 03/27/2024 Hepatitis B virus love rface Ag [Presence] in Serum or Plasma by Immunoassay Hepatitis B surface antigen Lab Routine Missed menses Ordered: 03/27/2024 [facility] Comment on above: Ordered: 03/27/2024 Hepatitis C virus Ab [Presence] in Serum or Plasma by Immunoassay Hepatitis C antibody Lab Routine Missed menses Ordered: 03/27/2024 [facility] Comment on above: Ordered: 03/27/2024 HIV-1/HIV-2 antigen/antibody combination immunoassay HIV-1 and HIV-2 antibodies Lab Routine Missed menses Ordered: 03/27/2024 [facility] Comment on above: Ordered: 03/27/2024 Neisseria gonorrhoea e DNA [Presence] in Unspecified specimen by BUCK with probe detection Neisseria gonorrhea DNA probe, direct Lab Routine STD exposure Ordered: 05/25/2024 [facility] Comment on above: Ordered: 05/25/2024 Reagin Ab [Presence] in Serum by RPR RPR Lab Routine Missed menses Ordered: 03/27/2024 [facility] Comment on above: Ordered: 03/27/2024 Rubella antibody, IgG Rubella an tibody, IgG Lab Routine Missed menses Ordered: 03/27/2024 [facility] Comment on above: Ordered: 03/27/2024 SURESWAB(R) ADVANCED VAGINITIS PLUS, TMA SURESWAB(R) ADVANCED VAGINITIS PLUS, TMA Pathology and Cytology Routine Vaginal discharge Ordered: 05/25/2024 [facility] Comment on above: Ordered: 05/25/2024 Payers Date Payer Category Payer Self-pay 2023 [employer] - [employer] [id number] 2023 [facility] [id number] 2023 Unknown [id number] 2021 Private Health Insurance [id number] 2021 Unknown [id number] [id number]. [id number] 2021 Unknown [id number] 1999 Unknown [id number] 2.16.840.1.587946.3.579.2. 593 1999 Unknown [id number] 2.16.840.1.354262.3.579.2. 593 1999 Unknown [id number] 2.16.840.1.483223.3.579.2. 593 1999 Unknown [id number] 2.16.840.1.572516.3.579.2. 593 1999 Unknown [id number] 2.16.840.1.165153.3.579.2. 593 1999 Unknown [id number] 2.16.840.1.184369.3.579.2. 593 1999 Unknown [id number] 2.16.840.1.709572.3.579.2. 593 1999 Unknown [id number] 2.16.840.1.865988.3.579.2. 1286 1999 Unknown [id number] 2.16.840.1.555711.3.579.2. 1286 1999 Unknown [id number] 2.16.840.1.755994.3.579.2. 1258 1999 Unknown [id number] 2.16.840.1.013274.3.579.2. 1258 1999 Unknown [id number] 2.16840.1.228027.3.579.2. 1258 1999 Unknown [id number] 2.16.840.1.091502.3.579.2. 1258 1999 Unknown [id number] 2.16.840.1.106734.3.579.2. 1258 1999 Unknown [id number] 2.16.840.1.245376.3.579.2. 125 1999 Unknown [id number] 2.16840.1.726591.3.579.2. 125 1999 Unknown [id number] 2.16.840.1.742406.3.579.2. 1258 1999 Unknown [id number] 2.16.840.1.241205.3.579.2. 1258 1999 Unknown [id number] 2.16.840.1.840461.3.579.2. 1258 1999 Unknown [id number] 2.16.840.1.289009.3.579.2. 1258 1999 Unknown [id number] 2.16.840.1.164416.3.579.2. 1259 1959 Private Health Insurance [id number] 1959 Unknown [id number] Unknown [id number] 2.16.840.1.387827.3.579.2. 531 Social History Date Type Detail Facility Tobacco smoking stat [facility] Unknown if ever smoked [facility] Work Phone: Start: 2000 Sex Assigned At Female F [facility] Start: 01-02-2024 End: 05-27-2024 Tobacco smoking status NHIS Never smoked tobacco [facility] Start: 01-02-2024 End: 05-27-2024 Tobacco use and exposure Smokeless tobacco non-user [facility] Start: 04-27-2024 End: 09-29-2024 Alcoholic beverage intake Ex-drinker (finding) [facility] Start: 01-02-2024 End: 06-15-2024 History of Social function [facility] Start: 01-02-2024 End: 06-15-2024 Tobacco use panel [facility] Start: 01-29-2024 [facility] Start: 11-26-2023 Gender identity Identifies as female gender (finding) [facility] Start: 05-27-2024 End: 06-15-2024 Alcoholic beverage intake Lifetime non-drinker (finding) [facility] Start: 1999 Sex assigned at Not on file P [facility] Start: 05-26-2024 End: 09-22-2024 Sex Female (finding) [facility] Tobacco smoking stat [facility] Unknown if ever smoked [facility] Work Phone: Medical Equipment Procedure Code Equipment Code Equipment Origin al Text Equipment Identifier Dates 1 strip by In Vi tro route Daily Use in the morning prior to breakfast, 1 hour after each meal for a total of 4times daily. [id number] Start: 07-20-2024 End: 08-19-2024 1 each by In Vit ro route Daily Use to check FSBS four times daily [id number] Start: 07-20-2024 End: 08-19-2024 Goals Date Patient Goal Desired Activity /State Personal health goal Clinical Notes 03-27-2024 to 09-29-2024 Esperanza Peter, BOTTLING EQUIPMENT SALES REPRESENTATIVE - 09/29/2024 11:20 AM Donell Tracy, BOTTLING EQUIPMENT SALES REPRESENTATIVE - 09/22/2024 9:20 AM Donell Tracy, BOTTLING EQUIPMENT SALES REPRESENTATIVE - 09/08/2024 8:30 AM Gautam Peter, BOTTLING EQUIPMENT SALES REPRESENTATIVE - 08/27/2024 11:40 AM EST Note Date & Type Note Facility 09-29-2024 History of Present illness Narrative Reason for [...] apply, As needed Blood Glucose Monitoring Suppl ([employer] Glucometer) w/Device kit 1 kit, Does not apply, Daily, Use four times daily to check FSBS. In the morning prior to breakfast & 1 hour after each meal for a total of 4times daily. Continuous Glucose Farm Machinery Mechanic (FreeStyle Jenise 3 [place]) device 1 each, Does not apply, Every 14 days Continuous Glucose Sensor (FreeStyle Jenise 3 Sensor) misc 1 each, Does not apply, Every 14 days labetalol (NORMODYNE) 100 mg, Oral, 2 times daily Multiple Vitamin (multivitamin) tablet 1 tablet, Daily ondansetron (ZOFRAN) 4 mg, Every 8 hours PRN ALLERGIES Allergies Allergen Reactions Myra Flavor [Myra Oil] Latex Hives, Itching, Rash and Swelling [...] SYSTEMS Review of Systems: Review of Systems Genitourinary: Positive for pelvic pain. All other systems reviewed and are negative. OBJECTIVE Objective: Physical Exam Constitutional: Appearance: Normal appearance. She is well-developed. Genitourinary: Vulva normal. Cardiovascular: Rate and Rhythm: Normal rate and [...] nursing note reviewed. Exam conducted with a braille transcriber present. Vitals: Estimated body mass index is 36.18 kg/m as calculated from the following: Height as of 24: 5' 2 . Weight as of this encounter: 197 lb 12.8 oz. BP: 140/88 No LMP recorded. Patient is . ASSESSMENT & PLAN ICD-10-CM 1. 36 weeks gestation of Z3A.36 Patient presents today for a routine obstetrics appointment. Patient is currently 36w5d with a Estimated Date of Delivery: 10/22/24. Documented by Esperanza Peter LPN on behalf of: Immanuel Hilton DO documented in this encounter [facility] 09-22-2024 History of Present illness Narrative Reason [...] apply, As needed Blood Glucose Monitoring Suppl ([employer] Glucometer) w/Device kit 1 kit, Does not apply, Daily, Use four times daily to check FSBS. In the morning prior to breakfast & 1 hour after each meal for a total of 4times daily. Continuous Glucose Farm Machinery Mechanic (FreeStyle Jenise 3 [place]) device 1 each, Does not apply, Every 14 days Continuous Glucose Sensor (FreeStyle Jenise 3 Sensor) misc 1 each, Does not apply, Every 14 days labetalol (NORMODYNE) 100 mg, Oral, 2 times daily Multiple Vitamin (multivitamin) tablet 1 tablet, Daily ondansetron (ZOFRAN) 4 mg, Every 8 hours PRN ALLERGIES Allergies Allergen Reactions Myra Flavor [Myra Oil] Latex Hives, Itching, Rash and Swelling [...] nursing note reviewed. Exam conducted with a braille transcriber present. Vitals: Estimated body mass index is [...] Hilton DO documented in this encounter [facility] 09-08-2024 History of Present illness [...] apply, As needed Blood Glucose Monitoring Suppl ([employer] Glucometer) w/Device kit 1 kit, Does not apply, Daily, Use four times daily to check FSBS. In the morning prior to breakfast & 1 hour after each meal for a total of 4times daily. Continuous Glucose Farm Machinery Mechanic (FreeStyle Jenise 3 [place]) device 1 each, Does not apply, Every 14 days Continuous Glucose Sensor (FreeStyle Jenise 3 Sensor) misc 1 each, Does not apply, Every 14 days Multiple Vitamin (multivitamin) tablet 1 tablet, Daily terconazole (Terazol 7) 0.4 % vaginal cream 1 applicator, Vaginal, Nightly ALLERGIES Allergies Allergen Reactions Myra Flavor [Myra Oil] Latex Hives, Itching, Rash and Swelling [...] nursing note reviewed. Exam conducted with a braille transcriber present. Vitals: Estimated body mass index is [...] Hilton DO documented in this encounter [facility] 08-27-2024 History of Present illness [...] apply, As needed Blood Glucose Monitoring Suppl ([employer] Glucometer) w/Device kit 1 kit, Does not apply, Daily, Use four times daily to check FSBS. In the morning prior to breakfast & 1 hour after each meal for a total of 4times daily. Continuous Glucose Farm Machinery Mechanic (FreeStyle Jenise 3 [place]) device 1 each, Does not apply, Every 14 days Continuous Glucose Sensor (FreeStyle Jenise 3 Sensor) misc 1 each, Does not apply, Every 14 days metroNIDAZOLE (FLAGYL) 500 mg, Oral, 2 times daily, Do not drink alcohol while taking this medication Multiple Vitamin (multivitamin) tablet 1 tablet, Daily ALLERGIES Allergies Allergen Reactions Myra Flavor [Myra Oil] Latex Hives, Itching, Rash and Swelling [...] nursing note reviewed. Exam conducted with a braille transcriber present. Vitals: Estimated body mass index is [...] from yesterday. Patients insurance did finally approve [employer] Jenise and patient is waiting for monitor [...] Hilton DO documented in this encounter [facility] 08-12-2024 History of Present illness [...] 1 tablet, Daily ALLERGIES Allergies Allergen Reactions Myra Flavor [Myra Oil] Latex Hives, Itching, Rash and Swelling [...] nursing note reviewed. Exam conducted with a braille transcriber present. Vitals: Estimated body mass index is [...] Hilton DO documented in this encounter [facility] 07-20-2024 History of Present illness [...] mg, Oral, Daily ALLERGIES Allergies Allergen Reactions Myra Flavor [Myra Oil] Latex Hives, Itching, Rash and Swelling [...] Hilton DO documented in this encounter [facility] 06-22-2024 History of Present illness [...] mg, Oral, Daily ALLERGIES Allergies Allergen Reactions Myra Flavor [Myra Oil] Latex Hives, Itching, Rash and Swelling [...] Hilton DO documented in this encounter [facility] 06-15-2024 History of Present illness [...] Allergies: Allergies Allergen Reactions Latex, Natural Rubber Myra Meds: Prior to Admission medications Medication Sig [...] other morbidities. Based on the available evidence, [facility] recommends treatment with antihypertensive therapy [...] preeclampsia prevention as is recommended by the [place] [employer]ne[employer] Committee Opinion No. 743. [...] Cele Rodriguez MD, FACOG (she/hers) Maternal- Medicine [facility] [address] [facility] 1[address] [place] [address] This document was created with [employer] technology. Though I make every effort to review the dictation as it is transcribed, on occasion the spoken word can be misinterpreted by the technology leading to inappropriate words, phrases, or sentences. This note is addressed to the requesting provider as a consultation for clinical guidance. Specific medical abbreviations are occasionally used and those are generally approved by the [place]?Board of?Obstetrics and?Gynecology?as well as?Kenzie s abbreviations. The above plan of care was based solely on the diagnoses for which a consultation was requested. ?More frequent testing may be indicated based on her other medical/obstetrical conditions. The management of other or medical conditions is beyond the scope of requested consultation and will continue to be followed by the primary weaving instructor or primary care provider. Note to patient: [...] IVF Have you been seen here at [facility] in a previous ? N/a Recent ER visits or hospitalizations? no Bring blood sugar log or meter with you today? (Please bring them with you for every visit at [facility]) no Flu vaccine (May-September)? no Any concerns that you would like me to mention to the provider today? no documented in this encounter [facility] 05-25-2024 History of Present illness Narrative Reason [...] mg, Oral, Daily ALLERGIES Allergies Allergen Reactions Myra Flavor [Myra Oil] Latex Hives, Itching, Rash and Swelling [...] nursing note reviewed. Exam conducted with a braille transcriber present. Vitals: Estimated body mass index is [...] by Esperanza Peter LPN on behalf of: Immanule Hilton DO documented in this encounter [facility] 04-27-2024 History of Present illness [...] mg, Oral, Daily ALLERGIES Allergies Allergen Reactions Myra Flavor [Myra Oil] Latex Hives, Itching, Rash and Swelling [...] nursing note reviewed. Exam conducted with a braille transcriber present. Vitals: Estimated body mass index is [...] with IVF . Patient to also have [facility] referral for IVF and Level II [...] or undercooked meat, and stay away from [facility]. Patient has been consulted regarding any further do's and don'ts of . Patient voiced understanding and all questions and concerns were answered. Orders Placed This Encounter Procedures POCT urinalysis dipstick manually resulted Follow Up: Patient is to return in 4 weeks for routine OB appointment. Documented by Esperanza Peter LPN on behalf of: Immanuel Hilton DO documented in this encounter [facility] 03-27-2024 History of Present illness [...] Procedure Laterality Date TONSILLECTOMY Allergies Allergen Reactions Myra Flavor [Myra Oil] Latex Hives, Itching, Rash and Swelling [...] or undercooked meat, and stay away from [facility]. Patient has also been advised to [...] Jo-Ann Motta LPN documented in this encounter [facility] Healthcare Evaluation note No assessment inform ation available [facility] Work Phone: Evaluation note Diagnosis [...] fertility procedure cycle documented in [facility] encounter [facility] System[facility]* Diagnosis 35 weeks gestation of Third trimester state, incidental [facility]* Diagnosis 36 weeks gestation of Third trimester state, incidental documented in this encounter [facility] HealthcareInstructionsNot on filedocumented in this encounterProMedinj Health SystemInstructionsNot on filedocumented in this encounterProMer[facility] SystemInstructions* Attachments The following attachments cannot be sent through Care Everywhere. * Preeclampsia ([place]) [facility] Purpose Family History [...] section and content) DATE CREATED AUTHOR 03/06/2019 [facility] DATE CREATED AUTHOR AUTHOR'S ORGANIZ ATION 12/21/2021 [facility] DATE CREATED AUTHOR AUTHOR'S ORGANIZ ATION 12/01/2022 [facility] [place] [facility] DATE CREATED AUTHOR AUTHOR'S ORGANIZ ATION 06/17/2024 [facility] DATE CREATED AUTHOR AUTHOR'S ORGANIZ ATION 09/23/2024 [facility] EP[facility] DATE CREATED AUTHOR AUTHOR'S ORGANIZ ATION 09/25/2024 [facility] Care Teams (unrecognized sec tion and content) Team Status: Active Member Role Status Dates Damon Stover DO Primary Care Provider Active Team Status: Inactive Member Role Status Dates Damon Stover DO Primary Care Provider Active Start: January 02, 2024 End: January 02, 2024 Teresa Sanchez APRN Attending Provider Active S tart: January 02, 2024 End: January 02, 2024 Software Design Analyst Relationship Specialty Start Date End Date Akila Grant MD [address] [facility] [place] [address] PCP - General Family Medicine 11/27/23 Software Design Analyst Relationship Specialty Start Date End Date Akila Grant MD [address] [facility] [place] [address] PCP - General Family Medicine 11/27/23 Software Design Analyst Relationship Specialty Start Date End Date Akila Grant MD [address] [facility] [place] [address] PCP - General Family Medicine 11/27/23 Software Design Analyst Relationship Specialty Start Date End Date Akila Grant MD [address] [facility] [place] [address] PCP - General Family Medicine 11/27/23 Software Design Analyst Relationship Specialty Start Date End Date Akila Grant MD [address] [facility] [place] [address] PCP - General Family Medicine 11/27/23 Software Design Analyst Relationship Specialty Start Date End Date Akila Grant MD [address] [facility] [place] [address] PCP - General Family Medicine 11/27/23 Software Design Analyst Relationship Specialty Start Date End Date Akila Grant MD [address] [place] [facility] [place] [address] PCP - General Family Medicine 11/27/23 Software Design Analyst Relationship Specialty Start Date End Date Akila Grant MD [address] [place] [facility] [place] [address] PCP - General Family Medicine 11/27/23 Software Design Analyst Relationship Specialty Start Date End Date Akila Grant MD [address] [facility] [place] [address] PCP - General Family Medicine 11/27/23 Software Design Analyst Relationship Specialty Start Date End Date Akila Grant MD [address] [place] [facility] [place] [address] PCP - General Family Medicine 11/27/23 Software Design Analyst Relationship Specialty Start Date End Date Akila Grant MD [address] [facility] [place] [address] PCP - General Family Medicine 11/27/23 Software Design Analyst Relationship Specialty Start Date End Date Akila Grant MD [address] [facility] [place] [address] PCP - General Family Medicine 11/27/23 Software Design Analyst Relationship Specialty Start Date End Date Akila Grant MD [address] [facility] [place] [address] PCP - General Family Medicine 11/27/23 Software Design Analyst Relationship Specialty Start Date End Date Akila Grant MD [address] [facility] [place] [phone] PCP - General Family Medicine 11/27/23 Software Design Analyst Relationship Specialty Start Date End Date Akila Grant MD [address] [facility] [place] [address] PCP - General Family Medicine 11/27/23 Software Design Analyst Relationship Specialty Start Date End Date Akila Grant MD [address] [facility] [place] [address] PCP - General Family Medicine 11/27/23 Team [...] Care Provider Active Start: September 12, 2024 Immaneul Hilton , DO Attending Provider Active Start : September 12, 2024 Team Status: Active Member Role Status Dates Damon Stover DO Primary Care Provider Active Start: September 20, 2024 Akila Grant MD Attending Provider Active St art: September 20, 2024 Software Design Analyst Relationship Specialty Start Date End Date Akila Grant MD [address] [facility] [place] [id number] PCP - General Family Medicine 11/27/23 Software Design Analyst Relationship Specialty Start Date End Date Akila Grant MD [address] [facility] [place] [address] PCP - General Family Medicine 11/27/23 Goals [...] BE BASED ON THE PRIMARY CLINICAL RECORDS. [employer] provides no warranty or guarantee of the accuracy or completeness of information in this document.
[2024-09-30 11:51] VITALS: BP 124/89; PULSE 103
== END 2024-09-30 12:06 | disposition home or self-care (01) ==
LOC: US 01:28 → FBC 10:59
PROVIDERS: PCP Family Medicine; Visit Provider Obstetrics & Gynecology
DX: O24.419 Gestational diabetes mellitus in pregnancy, unspecified control (principal); Z31.83 Encounter for assisted reproductive fertility procedure cycle
CPT/HCPCS: 76818

== ENCOUNTER 2024-10-01 05:00 | Inpatient (IN) | payer OTHER, BC, SELFPAY ==
[2024-10-01] VITALS (68 sets, daily range): BP systolic 89–178; BP diastolic 58–111; PULSE 71–133; TEMP 35.8–38.1; O2SAT 95–100
--- OUTSIDE RECORDS SUMMARY | 2024-10-01 05:03 | XMS_ITS | CCD ---
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 Name Role Phone YOBANI ., DR SMITH [...] Unavailable Akila Grant MD Primary Care Provider [phone] IMMANUEL HILTON R Referring Unavailable CELE RODRIGUEZ Attending Unavailable IMMANUEL HILTON R Referring Unavailable Unavailable Primary Care Provider [facility] NON STAFF Attending Unavailable NON STAFF Admitting Unavailable IMMANUEL HILTON Referring Unavailable YOBANI, IMMANUEL Attending Unavailable YOBANI, IMMANUEL Attending Unavailable YOBANI, IMMANUEL Attending Unavailable YOBANI, IMMANUEL Attending Unavailable YOBANI, IMMANUEL Attending Unavailable JIMJOHNNY Attending Unavailable YOBANI, IMMANUEL Attending Unavailable YOBANI, IMMANUEL Attending Unavailable YOBANI, IMMANUEL Attending Unavailable YOBANI, IMMANUEL Attending Unavailable YOBANI, IMMANUEL Attending Unavailable Allergies Allergy Classification Reported Allergen(s) Allergy Type Date of Onset Reaction(s) Facility (3 sources) Latex Drug allergy (disorder) 0 hives [facility] Repository (1 source) orange flavor Drug allergy (disorder) 0 [facility] (7 sources) [place] - fruit; Translations: [ORANGE] 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 4 anaphylaxis [facility] (20 sources) Latex 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 4 Hives, Itching, Rash, Swelling [facility] (20 sources) orange allergenic extract Drug Allergy 4 [facility] Work Phone: (1 source) natural latex rubber; Translations: [LATEX, NATURAL RUBBER] Propensity to adverse reactions to drug (disorder) 4 [facility] Repository (1 source) Latex Drug allergy (disorder) 4 [facility] Repository Medications Current Medications Medication Drug [...] Antimicrobial Start: 07-15-2024 End: 08-12-2024 azithromycin (Zithromax Z-Ajm) 250 MG tablet Indications: Sinusitis, unspecified chronicity, [...] MCG/0.5ML injection 11/26/2023 03/27/2024 Discontinued Continuous Glucose Resolution Agent (FreeStyle Jenise 3 Vanduser) device (20 sources) Start: 08-20-2024 Continuous Glucose Resolution Agent (FreeStyle Jenise 3 Vanduser) device Indications: Gestational diabetes mellitus (GDM), antepartum, gestational diabetes method of control unspecified , Third trimester 1 each every 14 (fourteen) days 1 each 3 08/20/2024 Active Continuous Glucose Sensor (FreeStyle Jenise 3 Sensor) [facility] (20 sources) Start: 08-20-2024 Continuous Glucose Sensor [...] 11:00pm ondansetron 4 mg disintegrating oral tablet (14 sources) Serotonin-3 Receptor Antagonist Start: 04-13-20 End: [...] 04/30/2023 08/27/2024 Discontinued take 1 tablet by tg th in the morning, then take 1 [...] Facility US OB BPP W NON-STRESS on 09-30-2024 [place] [address] Ultrasound Report Signed Patient: AMY MARIO MR#: [id number] : 2000 Acct:[id number] Age/Sex: 24 / F ADM Date: 09/30/24 Loc: US Attending Dr: Immanuel Hilton D.O. Ordering Physician: Immanuel Hilton D.O. Date of Service: 09/30/24 Procedure(s): US OB BPP w non-stress Accession Number(s): [id number] cc: Akila Grant M.D.; Immanuel Hilton D.O. [place] [id number] Patient Name: AMY MARIO MRN: [facility]:[id number] date: 2000 Sex: F Assigned Patient Location: [facility] Current Patient Location: Accession/Order Number: [id number] Exam Date: 09/30/2024 22:21 Report Date: 09/30/2024 22:24 At the request of: IMMANUEL HILTON DO Procedure: US OB BPP w non-stress Biophysical profile. Reason for exam: Gestational diabetes. COMPARISON: BDP 09/23/2024. TECHNIQUE: Transabdominal imaging of the gravid uterus was obtained. FINDINGS: The technologist reports a BPP of 8 out of 8. CAPRICE is normal at 12.1 cm. heart rate 1 64 bpm. US/US OB BPP w non-stress IMPRESSION: BPP 8 out of 8. Impression dictated by: Jazzmine Bailey Jr.O.09/30/2024 10:24 PM Dictation Location: RADIO-PC-18 Electronically authenticated by: [id number] Y Date: 09/30/2024 22:24 Dictated By: Juliano Johnston M.D. Signed By: 09/30/242225 DD/ 23 TD/TT: Assistant Women'S Tennis Coach: [facility] Radiology, Radiologist, - 09/30/2024 [place] [address] Ultrasound Report Signed Patient: AMY MARIO MR#: [id number] : 2000 Acct:[id number] Age/Sex: 24 / F ADM Date: 09/30/24 Loc: US Attending Dr: Immanuel Hilton D.O. Ordering Physician: Immanuel Hilton D.O. Date of Service: 09/30/24 Procedure(s): US OB BPP w non-stress Accession Number(s): [id number] cc: Akila Grant M.D.; Immanuel Hilton D.O. The [place] [address] Patient Name: AMY MARIO MRN: [facility]:[id number] date: 2000 Sex: F Assigned Patient Location: [facility] Current Patient Location: Accession/Order Number: [id number] Exam Date: 09/30/2024 22:21 Report Date: 09/30/2024 22:24 At the request of: IMMANUEL HILTON DO Procedure: US OB BPP w non-stress Biophysical profile. Reason for exam: Gestational diabetes. COMPARISON: BDP 09/23/2024. TECHNIQUE: Transabdominal imaging of the gravid uterus was obtained. FINDINGS: The technologist reports a BPP of 8 out of 8. CAPRICE is normal at 12.1 cm. heart rate 1 64 bpm. US/US OB BPP w non-stress IMPRESSION: BPP 8 out of 8. Impression dictated by: Jazzmine Bailey Jr.OLindy09/30/2024 10:24 PM Dictation Location: RADIO-PC-18 Electronically authenticated by: [id number] Y Date: 09/30/2024 22:24 Dictated By: Juliano Johnston M.D. Signed By: 09/30/242225 DD/ 23 TD/TT: Assistant Women'S Tennis Coach: [facility] Radiology Study observation (narrative) [facility] US OB BPP W NON-STRESS Ordered By: Radiologist Radiology on 09-30-2024 [facility] Work Phone: Urinalysis macro (dipstick) panel (U)on 09-29-2024 Bilirubin, UA Negative Negative - 4(70) +++ mg/dL [facility] Blood, UA Negative Negative - 50 Jimy/mcL [facility] Clarity, UA Clear [facility] Color, UA Cynthia [facility] Glucose, UA Negative Negative - 2000(110) ++++ mg/dL [facility] Interpretation and review of laboratory results Normal [facility] Ketones, UA Negative Negative - 160(16) ++++ mg/dL [facility] Leukocytes, UA Negative Negative - 500+++ Mychal/mcL [facility] Nitrite, UA Negative Negative - Positive [facility] pH, UA 7 5 - 9 [facility] Protein, UA Positive Negative - 2000(20) ++++ mg/dL [facility] Comment on above: 30 Spec Grav, UA 1.025 1 - 1.03 [facility] Urobilinogen, UA 1.0 0.2 - 12 mg/dL Pending sale to [facility] US OB BPP W NON-STRESS on 09-23-2024 [place] [address] Ultrasound Report Signed Patient: AMY MARIO MR#: [id number] : 2000 Acct:[id number] Age/Sex: 24 / F ADM Date: 09/23/24 Loc: US Attending Dr: Immanuel Hilton D.O. Ordering Physician: Immanuel Hilton D.O. Date of Service: 09/23/24 Procedure(s): US OB BPP w non-stress Accession Number(s): [id number] cc: Akila Grant M.D.; Immanuel Hilton D.O. The [place] [id number] Patient Name: AMY MARIO MRN: [facility]:[id number] date: 2000 Sex: F Assigned Patient Location: [facility] Current Patient Location: Accession/Order Number: [id number] Exam Date: 09/23/2024 12:21 Report Date: 09/23/2024 12:23 At the request of: IMMANUEL HILTON DO Procedure: US OB BPP w non-stress BIOPHYSICAL PROFILE: CLINICAL INFORMATION: Gestational diabetes mellitus O24.419 COMPARISON: 09/16/2024 There is a single live intrauterine gestation in cephalic presentation. The reported gestational age is 35 weeks 6 days. The heart rate [id number] beats per minute. FINDINGS: TONE: 1 or [...] Chika Holden M.D.09/23/2024 12:23 PM Dictation Location: [place] [address] Electronically authenticated by: [id number] Y Date: 09/23/2024 12:23 Dictated By: Chika Holden M.D. Signed By: 09/23/24 1226 DD/ 1223 TD/TT: Assistant Women'S Tennis Coach: [facility] Radiology, Radiologist, - 09/23/2024 [place] [address] Ultrasound Report Signed Patient: AMY MARIO MR#: [id number] : 2000 Acct:[id number] Age/Sex: 24 / F ADM Date: 09/23/24 Loc: US Attending Dr: Immanuel Hilton D.O. Ordering Physician: Immanuel Hilton D.O. Date of Service: 09/23/24 Procedure(s): US OB BPP w non-stress Accession Number(s): [id number] cc: Akila Grant M.D.; Immanuel Hilton D.O. [place] [phone] Patient Name: AMY MARIO MRN: [facility]:[id number] date: 2000 Sex: F Assigned Patient Location: [facility] Current Patient Location: Accession/Order Number: [id number] Exam Date: 09/23/2024 12:21 Report Date: 09/23/2024 12:23 At the request of: IMMANUEL HILTON DO Procedure: US OB BPP w non-stress BIOPHYSICAL PROFILE: CLINICAL INFORMATION: Gestational diabetes mellitus O24.419 COMPARISON: 09/16/2024 There is a single live intrauterine gestation in cephalic presentation. The reported gestational age is 35 weeks 6 days. The heart rate fminppzr854 beats per minute. FINDINGS: TONE: 1 or [...] Chika Holden M.D.09/23/2024 12:23 PM Dictation Location: [place] [address] Electronically authenticated by: [id number] Y Date: 09/23/2024 12:23 Dictated By: Chika Holden M.D. Signed By: 09/23/24 1226 DD/ 1223 TD/TT: Assistant Women'S Tennis Coach: [facility] Radiology Study observation (narrative) [facility] US OB BPP W NON-STRESS Ordered By: Radiologist Radiology on 09-23-2024 [facility] Work Phone: [facility] TOTAL PROTEIN 24 HOUR UR INEon 09-22-2024 Interpretation and review of laboratory results Abnormal [facility] Protein (U) [Mass/Vol] 23.9 mg/dL High NINF - 11.9 mg/dL [facility] TOTAL PROTEIN 24 HOUR URINE 239 High NINF [facility] TOTAL VOLUME 24 HOUR URINE 1000 mL/24hr [facility] Urinalysis macro (dipstick) panel (U)on 09-22-2024 Bilirubin, UA Positive Negative - 4(70) +++ mg/dL [facility] Comment on above: small Blood, UA Positive Negative - 50 Jimy/mcL [facility] Comment on above: trace-intact Clarity, UA Clear [facility] Color, UA Cynthia [facility] Glucose, UA Negative Negative - 2000(110) ++++ mg/dL [facility] Interpretation and review of laboratory results Abnormal [facility] Ketones, UA Negative Negative - 160(16) ++++ mg/dL [facility] Leukocytes, UA Positive Negative - 500+++ Mychal/mcL [facility] Comment on above: small Nitrite, UA Negative Negative - Positive [facility] pH, UA 6 5 - 9 [facility] Protein, UA Positive Negative - 2000(20) ++++ mg/dL [facility] Comment on above: 30 Spec Grav, UA 1.02 1 - 1.03 [facility] Urobilinogen, UA 1.0 0.2 - 12 mg/dL Pending sale to [facility] Laboratory - Chemistry and C hemistry - challengeon 09-20-2024 Bilirubin Ql (U) SMALL Abnormal NEGATIVE [facility] Glucose (U) [Mass/Vol] Negative NEGATIVE [facility] Ketones Ql (U) >=80 mg/dL Abnormal NEGATIVE [facility] pH (U) 5.5 [pH] 5.0-9.0 [facility] Specific gravity (U) [Rel density] >=1.030 Abnormal 1.005-1.025 [facility] Urobilinogen Qn (U) 0.2 {Brian'U}/dL 0.2-1.0 [facility] Laboratory - Specimen inform ationon 09-20-2024 Appearance (U) SL CLOUDY CLEAR [facility] Color (U) YELLOW YELLOW [facility] Laboratory - Urinalysison Leukocyte esterase Test strip Ql (U) TRACE Abnormal NEGATIVE [facility] Mucus Ql (Urine sed) LARGE Abnormal NONE SEEN [facility] Nitrite Ql (U) Negative NEGATIVE [facility] Protein Ql (U) 30 mg/dL Abnormal NEG/TRACE [facility] No Panel Informationon 09-20 Urine Bacteria SMALL #/HPF Abnormal NONE SEEN [facility] Urine Culture Reflexed YES-[facility] Urine Microscopic Review YES [facility] Urine Occult Blood LARGE Abnormal NEGATIVE [facility] Urine Other Casts NONE SEEN #/LPF NONE SEEN [facility] Urine Other Crystals None Seen #/HPF None Seen [facility] Urine RBC 0-2 #/HPF 0-2 [facility] Urine Squamous Epithelial Cells FEW #/LPF Abnormal NONE/RARE [facility] Urine WBC 0-2 #/HPF Abnormal NONE SEEN [facility] Urine Cultureon 09-20-2024 Bacteria identified Cx Nom (U) Urine Culture Results >100,000 col/ml Mixed Bacterial Skin Contaminants 2 Days PERFORMED BY: [place] [address] PATHOLOGIST SUGAR CANE GROWER SHELLIE PALOMINO M.D. Normal [facility] Comment on above: Performed By: #### C UU #### [address] US OB BPP W NON-STRESS on 09-16-2024 [place] [address] Ultrasound Report Signed Patient: AMY MARIO MR#: [id number] : 2000 Acct:[id number] Age/Sex: 24 / F ADM Date: 09/16/24 Loc: [facility] 250-[address]: Immanuel Hilton D.O. Ordering Physician: Immanuel Hilton D.O. Date of Service: 09/16/24 Procedure(s): US OB BPP w non-stress Accession Number(s): [id number] cc: Akila Grant M.D.; Immanuel Hilton D.O. The [address] [address] Patient Name: AMY MARIO MRN: [facility]:[id number] date: 2000 Sex: F Assigned Patient Location: [facility] Current Patient Location: [facility] Accession/Order Number: [id number] Exam Date: 09/16/2024 09:04 Report Date: 09/16/2024 [...] 34 weeks 4 days. The heart rate lisundvn102 beats per minute. FINDINGS: TONE: 1 or [...] Chika Holden M.D.09/16/2024 9:06 AM Dictation Location: [place] [address] Electronically authenticated by: [id number] Y Date: 09/16/2024 09:06 Dictated By: Chika Holden M.D. Signed By: 09/16/24908 DD/ 5 TD/TT: Assistant Women'S Tennis Coach: [facility] Radiology, Radiologist, - 09/16/2024 The [place] [id number] Ultrasound Report Signed Patient: AMY MARIO MR#: [id number] : 2000 Acct:[id number] Age/Sex: 24 / F ADM Date: 09/16/24 Loc: [facility] 250-[address]: Immanuel Hilton D.O. Ordering Physician: Immanuel Hilton D.O. Date of Service: 09/16/24 Procedure(s): US OB BPP w non-stress Accession Number(s): [id number] cc: Akila Grant M.D.; Immanuel Hliton D.O. The [place] [id number] Patient Name: AMY MARIO MRN: [id number] date: 2000 Sex: F Assigned Patient Location: [facility] Current Patient Location: [facility] Accession/Order Number: [id number] Exam Date: 09/16/2024 09:04 Report Date: 09/16/2024 [...] 34 weeks 4 days. The heart rate pedwtkcg914 beats per minute. FINDINGS: TONE: 1 or [...] Chika Holden M.D.09/16/2024 9:06 AM Dictation Location: [place] [address] Electronically authenticated by: [id number] Y Date: 09/16/2024 09:06 Dictated By: Chika Holden M.D. Signed By: 09/16/24908 DD/ 5 TD/TT: Assistant Women'S Tennis Coach: [facility] Radiology Study observation (narrative) [facility] US OB BPP W NON-STRESS Ordered By: Radiologist Radiology on 09-16-2024 [facility] Work Phone: US OB GROWTHon 09-16-2024 [place] [address] Ultrasound Report Signed Patient: AMY MARIO MR#: [id number] : 2000 Acct:[id number] Age/Sex: 24 / F ADM Date: 09/16/24 Loc: [facility] 250-[address]: Immanuel Hilton D.O. Ordering Physician: Immanuel Hilton D.O. Date of Service: 09/16/24 Procedure(s): US OB growth Accession Number(s): [id number] cc: Akila Grant M.D.; Immanuel Hilton D.O. [place] [phone] Patient Name: AMY MARIO MRN: [facility]:[id number] date: 2000 Sex: F Assigned Patient Location: [facility] Current Patient Location: [facility] Accession/Order Number: [id number] Exam Date: 09/16/2024 09:07 Report Date: 09/16/2024 [...] Chika Holden M.D.09/16/2024 9:15 AM Dictation Location: [place] [address] Electronically authenticated by: [id number] Y Date: 09/16/2024 09:15 Dictated By: Chika Holden M.D. Signed By: 09/16/24917 DD/ 4 TD/TT: Assistant Women'S Tennis Coach: [facility] Radiology, Radiologist, MD - 09/16/2024 [place] [address] Ultrasound Report Signed Patient: AMY MARIO MR#: [id number] : 2000 Acct:[id number] Age/Sex: 24 / F ADM Date: 09/16/24 Loc: [place] [address]- Attending Dr: Immanuel Hilton D.O. Ordering Physician: Immanuel Hilton D.O. Date of Service: 09/16/24 Procedure(s): US OB growth Accession Number(s): [id number] cc: Akila Grant M.D.; Immanuel Hilton D.O. The [address] [address] Patient Name: AMY MARIO MRN: [facility]:[id number] date: 2000 Sex: F Assigned Patient Location: [facility] Current Patient Location: [facility] Accession/Order Number: [id number] Exam Date: 09/16/2024 09:07 Report Date: 09/16/2024 [...] Chika Holden M.D.09/16/2024 9:15 AM Dictation Location: [facility] Electronically authenticated by: [id number] Y Date: 09/16/2024 09:15 Dictated By: Chika Holden M.D. Signed By: 09/16/24917 DD/ 4 TD/TT: Assistant Women'S Tennis Coach: [facility] Radiology Study observation (narrative) [facility] OB GROWTHOrdered By: Kaye ologyamini Radiology on 09-16-2024 [facility] Work Phone: TB TOTAL PROTEIN 24 HOUR UR INEon 09-12-2024 Interpretation and review of laboratory results Abnormal [facility] Protein (U) [Mass/Vol] 29.7 mg/dL High NINF - 11.9 mg/dL [facility] TOTAL VOLUME 24 HOUR URINE 500 mL/24hr [facility] ALL CBC WITH AUTO DIFFon BASOPHILS ABSOLUTE AUTO 0 [facility] Basophils/100 WBC (Bld) 0.1 % Low 0.2 - 2.0 % [facility] Eosinophils/100 WBC (Bld) 0.7 % Low 0.9 - 7.0 % [facility] Erythrocyte distribution width (RBC) [Ratio] 13.4 % 11.0 - 15.0 % [facility] Hematocrit (Bld) [Volume fraction] 32.2 % Low 36.0 - 48.0 % [facility] Hemoglobin (Bld) [Mass/Vol] 10.6 g/dL Low 12.0 - 16.0 g/dL [facility] IMMATURE GRANULOCYTES ABS AUTO 0.06 High [facility] Immature granulocytes/100 WBC (Bld) 0.9 % High 0.0 - 0.5 % [facility] Interpretation and review of laboratory results Abnormal [facility] LYMPHOCYTES ABSOLUTE AUTO 1.4 [facility] Lymphocytes/100 WBC (Bld) 19.7 % Low 20.5 - 60.0 % [facility] MCH (RBC) [Entitic mass] 28.3 pg 26.7 - 34.0 pg [facility] MCHC (RBC) [Mass/Vol] 32.9 g/dL 29.9 - 35.2 g/dL [facility] MCV (RBC) [Entitic vol] 85.9 fL 81.0 - 99.0 fL [facility] MONOCYTES ABSOLUTE AUTO 0.5 [facility] Monocytes/100 WBC (Bld) 7.4 % 1.7 - 12.0 % [facility] NEUTROPHILS ABSOLUTE AUTO 4.9 [facility] Neutrophils/100 WBC (Bld) 71.2 % 43.0 - 75.0 % [facility] Platelet mean volume (Bld) [Entitic vol] 10.4 fL 9.5 - 13.5 fL [facility]1 [facility] PLT 391 [facility] RBC 3.75 Low [facility] WBC 6.9 [facility] Activated partial thrombopla stin time (aPTT) in platelet poor plasma by coagulation aon 09-09-2024 aPTT Coag (PPP) [Time] Activated partial thromboplastin time (aPTT) in platelet poor plasma by coagulation a Low 22.3-36.2 [facility] Basophils Auto (Bld) [#/Vol] on 09-09-2024 Basophils (Bld) [#/Vol] Automated basophil count 0.0-0.1 [facility] Basophils/100 WBC Auto (Bld) on 09-09-2024 Basophils/100 WBC (Bld) Automated basophil % Low 0.2-2.0 [facility] Eosinophils/100 WBC Auto (Bl d)on 09-09-2024 Eosinophils/100 WBC (Bld) Automated eosinophil % Low 0.9-7.0 [facility] Erythrocyte distribution wid th Auto (RBC) [Ratio]on 09-09-2024 Erythrocyte distribution width (RBC) [Ratio] Erythrocyte distribution width [Ratio] by Automated count 11.0-15.0 [facility] Estimated glomerular filtrat ion rate (GFR) non- Americanon 09-09-2024 GFR/1.73 sq M.predicted among non-blacks MDRD (S/P/Bld) [Vol rate/Area] Estimated glomerular filtration rate (GFR) non- >=60 mL/min/1.73m 2 [facility] Hematocrit Auto (Bld) [Volum e fraction]on 09-09-2024 Hematocrit (Bld) [Volume fraction] Hematocrit [Volume Fraction] of Blood by Automated count Low 36.0-48.0 [facility] Hemoglobin [Mass/volume] in Bloodon 09-09-2024 Hemoglobin (Bld) [Mass/Vol] Hemoglobin [Mass/volume] in Blood Low 12.0-16.0 [facility] INR in Platelet poor plasma by Coagulation assayon 09-09-2024 INR Coag (PPP) [Relative time] INR in Platelet poor plasma by Coagulation assay [facility] Comment on above: DESIRED INR:2.0-3.0 CONDITIONS NOT LISTED BELOW2.5-3.5 FOR PROSTHETIC HEART VALVE REPLACEMENT2.5-3.5 RECURRENT THROMBOSIS Laboratory - Chemistry and C hemistry - challengeon 09-09-2024 AST [Catalytic activity/Vol] 14 U/L Low 15-37 [facility] Creatinine [Mass/Vol] 0.56 mg/dL 0.55-1.02 [facility] GFR/1.73 sq M.predicted MDRD (S/P/Bld) [Vol rate/Area] mL/min/{1.73_m2} >=60 mL/min/1.73m 2 [facility] LDH [Catalytic activity/Vol] 296 U/L High 81-234 [facility] Urate [Mass/Vol] 5.4 mg/dL 2.6-6.0 [facility] Urea nitrogen [Mass/Vol] 5.0 mg/dL Low 7.0-18.0 [facility] Laboratory - Hematology and Cell countson 09-09-2024 Immature granulocytes/100 WBC (Bld) 0.9 % High 0.0-0.5 [facility] Leukocytes [#/volume] correc lisha for nucleated erythrocytes in Blood by Automated counon 09-09-2024 WBC corrected for nucl RBC Auto (Bld) [#/Vol] Leukocytes [#/volume] corrected for nucleated erythrocytes in Blood by Automated coun 4.0-11.0 [facility] Lymphocytes Auto (Bld) [#/Vo l]on 09-09-2024 Lymphocytes (Bld) [#/Vol] Lymphocytes [#/volume] in Blood by Automated count 1.2-3.8 [facility] Lymphocytes/100 WBC Auto (Bl d)on 09-09-2024 Lymphocytes/100 WBC (Bld) Lymphocytes/100 leukocytes in Blood by Automated count Low 20.5-60.0 [facility] MCH Auto (RBC) [Entitic mass ]on 09-09-2024 MCH (RBC) [Entitic mass] MCH [Entitic mass] by Automated count 26.7-34.0 [facility] MCHC Auto (RBC) [Mass/Vol]on 09-09-2024 MCHC (RBC) [Mass/Vol] MCHC [Mass/volume] by Automated count 29.9-35.2 [facility] MCV Auto (RBC) [Entitic vol] on 09-09-2024 MCV (RBC) [Entitic vol] MCV [Entitic volume] by Automated count 81.0-99.0 [facility] Monocytes Auto (Bld) [#/Vol] on 09-09-2024 Monocytes (Bld) [#/Vol] Automated blood monocyte count 0.3-0.8 [facility] Monocytes/100 WBC Auto (Bld) on 09-09-2024 Monocytes/100 WBC (Bld) Automated monocyte % 1.7-12.0 [facility] Neutrophils Auto (Bld) [#/Vo l]on 09-09-2024 Neutrophils (Bld) [#/Vol] Neutrophils [#/volume] in Blood by Automated count 1.4-6.5 [facility] Neutrophils/100 WBC Auto (Bl d)on 09-09-2024 Neutrophils/100 WBC (Bld) Automated neutrophil % 43.0-75.0 [facility] No Panel Informationon 09-09 Eosinophils # (Auto) 0.1 10 3/uL 0.0-0.7 [facility] Immature Granulocyte # (Auto) 0.06 10 3/uL High 0.00-0.03 [facility] Platelet mean volume Auto (B ld) [Entitic vol]on 09-09-2024 Platelet mean volume (Bld) [Entitic vol] Platelet mean volume [Entitic volume] in Blood by Automated count 9.5-13.5 [facility] Platelets Auto (Bld) [#/Vol] on 09-09-2024 Platelets (Bld) [#/Vol] Platelets [#/volume] in Blood by Automated count 150-450 [facility] Prothrombin time (PT)on 08-29 PT Coag (PPP) [Time] Prothrombin time (PT) 9.0-11.6 [facility] RBC Auto (Bld) [#/Vol]on RBC (Bld) [#/Vol] Erythrocytes [#/volume] in Blood by Automated count Low 4.20-5.40 [facility] US OB BPP W NON-STRESS on 09-09-2024 [place] [address] Ultrasound Report Signed Patient: AMY MARIO MR#: [id number] : 2000 Acct:[id number] Age/Sex: 24 / F ADM Date: 09/09/24 Loc: US Attending Dr: Immanuel Hilton D.O. Ordering Physician: Immanuel Hilton D.O. Date of Service: 09/09/24 Procedure(s): US OB BPP w non-stress Accession Number(s): [id number] cc: Akila Grant M.D.; Immanuel Hilton D.O. [place] [id number] Patient Name: AMY MARIO MRN: [facility]:[id number] date: 2000 Sex: F Assigned Patient Location: [facility] Current Patient Location: ED.MAIN Accession/Order Number: [id number] Exam Date: 09/09/2024 07:58 Report Date: 09/09/2024 [...] Signed By: 09/09/24 1132 DD/ 1130 TD/TT: Assistant Women'S Tennis Coach: [facility] Radiology, Radiologist, MD - 09/09/2024 [place] [address] Ultrasound Report Signed Patient: AMY MARIO MR#: [id number] : 2000 Acct:[id number] Age/Sex: 24 / F ADM Date: 09/09/24 Loc: US Attending Dr: Immanuel Hilton D.O. Ordering Physician: Immanuel Hilton D.O. Date of Service: 09/09/24 Procedure(s): US OB BPP w non-stress Accession Number(s): [id number] cc: Akila Grant M.D.; Immanuel Hilton D.O. The [place] [address] Patient Name: AMY MARIO MRN: [id number] date: 2000 Sex: F Assigned Patient Location: [facility] Current Patient Location: ED.MAIN Accession/Order Number: [id number] Exam Date: 09/09/2024 07:58 Report Date: 09/09/2024 [...] Signed By: 09/09/24 1132 DD/ 1130 TD/TT: Assistant Women'S Tennis Coach: [facility] Radiology Study observation (narrative) [facility] US OB BPP W NON-STRESS Ordered By: Radiologist Radiology on 09-09-2024 [facility] Work Phone: Urinalysis macro (dipstick) panel (U)on 09-08-2024 Bilirubin, UA Trace Negative - 4(70) +++ mg/dL [facility] Blood, UA Positive Negative - 50 Jimy/mcL [facility] Clarity, UA Clear [facility] Color, UA Yellow [facility] Glucose, UA Negative Negative - 1999(110) ++++ mg/dL [facility] Interpretation and review of laboratory results Abnormal [facility] Ketones, UA Negative Negative - 160(16) ++++ mg/dL [facility] Leukocytes, UA Positive Negative - 500+++ Mychal/mcL [facility] Nitrite, UA Negative Negative - Positive [facility] pH, UA 6 5 - 9 [facility] Protein, UA Positive Negative - 2000(20) ++++ mg/dL [facility] Spec Grav, UA 1.025 1 - 1.03 [facility] Urobilinogen, UA 0.2 0.2 - 12 mg/dL Pending sale to [facility] US OB BPP W NON-STRESS on 09-02-2024 [place] [id number] Ultrasound Report Signed Patient: AMY MARIO MR#: [id number] : 2000 Acct:[id number] Age/Sex: 24 / F ADM Date: 09/02/24 Loc: US Attending Dr: Immanuel Hilton D.O. Ordering Physician: Immanuel Hilton D.O. Date of Service: 09/02/24 Procedure(s): US OB BPP w non-stress Accession Number(s): [id number] cc: Akila Grant M.D.; Immanuel Hilton D.O. [place] [address] Patient Name: AMY MARIO MRN: [id number] date: 2000 Sex: F Assigned Patient Location: [facility] Current Patient Location: Accession/Order Number: [id number] Exam Date: 09/02/2024 08:03 Report Date: 09/02/2024 [...] M.D. Signed By: 09/02/24924 DD/ 1 TD/TT: Assistant Women'S Tennis Coach: [facility] Radiology, Radiologist, - 09/02/2024 The [place] [id number] Ultrasound Report Signed Patient: AMY MARIO MR#: [id number] : 2000 Acct:[id number] Age/Sex: 24 / F ADM Date: 09/02/24 Loc: US Attending Dr: Immanuel Hilton D.O. Ordering Physician: Immanuel Hilton D.O. Date of Service: 09/02/24 Procedure(s): US OB BPP w non-stress Accession Number(s): [id number] cc: Akila Grant M.D.; Immanuel Hilton D.O. The [address] [address] Patient Name: AMY MARIO MRN: [facility]:[id number] date: 2000 Sex: F Assigned Patient Location: [facility] Current Patient Location: Accession/Order Number: [id number] Exam Date: 09/02/2024 08:03 Report Date: 09/02/2024 [...] M.D. Signed By: 09/02/24924 DD/ 1 TD/TT: Assistant Women'S Tennis Coach: [facility] Radiology Study observation (narrative) [facility] US OB BPP W NON-STRESS Ordered By: Radiologist Radiology on 09-02-2024 [facility] Work Phone: US OB FOLLOW [...] 2164 gm / 4 lbs, 12 oz (7244-6535 gm) [place] Normal: 1953 gm (5736-2914 mg) [place] 80% for 32.0 wks (GA [...] report is generated using voice recognition reporting ([employer]). On occasion [employer] erroneously drops words from the report or [...] UA Positive Negative - 4(70) +++ mg/dL [facility] Comment on above: small Blood, UA Negative Negative - 50 Jimy/mcL [facility] Clarity, UA Clear [facility] Color, UA Yellow [facility] Glucose, UA Positive Negative - 2000(110) ++++ mg/dL [facility] Comment on above: 100 Interpretation and review of laboratory results Abnormal [facility] Ketones, UA Positive Negative - 160(16) ++++ mg/dL [facility] Comment on above: trace Leukocytes, UA Positive Negative - 500+++ Mychal/mcL [facility] Comment on above: large Nitrite, UA Negative Negative - Positive [facility] pH, UA 6.5 5 - 9 [facility] Protein, UA Positive Negative - 2000(20) ++++ mg/dL [facility] Comment on above: 30 Spec Grav, UA 1.03 1 - 1.03 [facility] Urobilinogen, UA 0.2 0.2 - 12 mg/dL Pending sale to [facility] US OB BPP W NON-STRESS on 08-26-2024 [place] [address] Ultrasound Report Signed Patient: AMY MARIO MR#: [id number] : 2000 Acct:[id number] Age/Sex: 24 / F ADM Date: 08/26/24 Loc: [facility] 251-[address]: Immanuel Hilton D.O. Ordering Physician: Immanuel Hilton D.O. Date of Service: 08/26/24 Procedure(s): US OB BPP w non-stress Accession Number(s): [id number] cc: Akila Grant M.D.; Immanuel Hilton D.O. [place] [phone] Patient Name: AMY MARIO MRN: [id number] date: 2000 Sex: F Assigned Patient Location: [facility] Current Patient Location: [facility] Accession/Order Number: [id number] Exam Date: 08/26/2024 08:00 Report Date: 08/26/2024 [...] Mixon M.D. Signed By: 08/26/2458 DD/ TD/TT: Assistant Women'S Tennis Coach: [facility] Radiology, Radiologist, MD - 08/26/2024 [place] [address] Ultrasound Report Signed Patient: AMY MARIO MR#: [id number] : 2000 Acct:[id number] Age/Sex: 24 / F ADM Date: 08/26/24 Loc: [facility] 251-[address]: Immanuel Hilton D.O. Ordering Physician: Immanuel Hilton D.O. Date of Service: 08/26/24 Procedure(s): US OB BPP w non-stress Accession Number(s): [id number] cc: Akila Grant M.D.; Immanuel Hilton D.O. The [address] [address] Patient Name: AMY MARIO MRN: [facility]:[id number] date: 2000 Sex: F Assigned Patient Location: [facility] Current Patient Location: [facility] Accession/Order Number: [id number] Exam Date: 08/26/2024 08:00 Report Date: 08/26/2024 [...] Dictated By: Lucho Mixon M.D. Signed By: 08/26/24857 DD/ 5 TD/TT: Assistant Women'S Tennis Coach: [facility] Radiology Study observation (narrative) [facility] US OB BPP W NON-STRESS Ordered By: Radiologist Radiology on 08-26-2024 [facility] Work Phone: Urinalysis macro (dipstick) panel (U)on 08-12-2024 Bilirubin, UA Negative Negative - 4(70) +++ mg/dL [facility] Blood, UA Negative Negative - 50 Jimy/mcL [facility] Clarity, UA Clear [facility] Color, UA Yellow [facility] Glucose, UA Negative Negative - 2000(110) ++++ mg/dL [facility] Interpretation and review of laboratory results Abnormal [facility] Ketones, UA Positive Negative - 160(16) ++++ mg/dL [facility] Comment on above: trace Leukocytes, UA Positive Negative - 500+++ Mychal/mcL [facility] Comment on above: large Nitrite, UA Negative Negative - Positive [facility] pH, UA 5.5 5 - 9 [facility] Protein, UA Trace Negative - 2000(20) ++++ mg/dL [facility] Spec Grav, UA 1.03 1 - 1.03 [facility] Urobilinogen, UA 0.2 0.2 - 12 mg/dL Pending sale to [facility] ALL CBC WITH AUTO DIFFon BASOPHILS ABSOLUTE AUTO 0 [facility] Basophils/100 WBC (Bld) 0.3 % 0.2 - 2.0 % [facility] Eosinophils/100 WBC (Bld) 1 % 0.9 - 7.0 % [facility] Erythrocyte distribution width (RBC) [Ratio] 13.2 % 11.0 - 15.0 % [facility] Hematocrit (Bld) [Volume fraction] 32.6 % Low 36.0 - 48.0 % [facility] Hemoglobin (Bld) [Mass/Vol] 11.3 g/dL Low 12.0 - 16.0 g/dL [facility] IMMATURE GRANULOCYTES ABS AUTO 0.07 High [facility] Immature granulocytes/100 WBC (Bld) 0.9 % High 0.0 - 0.5 % [facility] Interpretation and review of laboratory results Abnormal [facility] LYMPHOCYTES ABSOLUTE AUTO 1.6 [facility] Lymphocytes/100 WBC (Bld) 19.6 % Low 20.5 - 60.0 % [facility] MCH (RBC) [Entitic mass] 30.4 pg 26.7 - 34.0 pg [facility] MCHC (RBC) [Mass/Vol] 34.7 g/dL 29.9 - 35.2 g/dL [facility] MCV (RBC) [Entitic vol] 87.6 fL 81.0 - 99.0 fL [facility] MONOCYTES ABSOLUTE AUTO 0.6 [facility] Monocytes/100 WBC (Bld) 8 % 1.7 - 12.0 % [facility] NEUTROPHILS ABSOLUTE AUTO 5.6 [facility] Neutrophils/100 WBC (Bld) 70.2 % 43.0 - 75.0 % [facility] Platelet mean volume (Bld) [Entitic vol] 9.7 fL 9.5 - 13.5 fL [facility] EO # 0.1 [facility] PLT 400 [facility] RBC 3.72 Low [facility] WBC 8 [facility] Basophils Auto (Bld) [#/Vol] on 08-05-2024 Basophils (Bld) [#/Vol] Automated basophil count 0.0-0.1 [facility] Basophils/100 WBC Auto (Bld) on 08-05-2024 Basophils/100 WBC (Bld) Automated basophil % 0.2-2.0 [facility] Eosinophils/100 WBC Auto (Bl d)on 08-05-2024 Eosinophils/100 WBC (Bld) Automated eosinophil % 0.9-7.0 [facility] Erythrocyte distribution wid th Auto (RBC) [Ratio]on 08-05-2024 Erythrocyte distribution width (RBC) [Ratio] Erythrocyte distribution width [Ratio] by Automated count 11.0-15.0 [facility] Hematocrit Auto (Bld) [Volum e fraction]on 08-05-2024 Hematocrit (Bld) [Volume fraction] Hematocrit [Volume Fraction] of Blood by Automated count Low 36.0-48.0 [facility] Hemoglobin [Mass/volume] in Bloodon 08-05-2024 Hemoglobin (Bld) [Mass/Vol] Hemoglobin [Mass/volume] in Blood Low 12.0-16.0 [facility] Laboratory - Hematology and Cell countson 08-05-2024 Immature granulocytes/100 WBC (Bld) 0.9 % High 0.0-0.5 [facility] Leukocytes [#/volume] correc lisha for nucleated erythrocytes in Blood by Automated counon 08-05-2024 WBC corrected for nucl RBC Auto (Bld) [#/Vol] Leukocytes [#/volume] corrected for nucleated erythrocytes in Blood by Automated coun 4.0-11.0 [facility] Lymphocytes Auto (Bld) [#/Vo l]on 08-05-2024 Lymphocytes (Bld) [#/Vol] Lymphocytes [#/volume] in Blood by Automated count 1.2-3.8 [facility] Lymphocytes/100 WBC Auto (Bl d)on 08-05-2024 Lymphocytes/100 WBC (Bld) Lymphocytes/100 leukocytes in Blood by Automated count Low 20.5-60.0 [facility] MCH Auto (RBC) [Entitic mass ]on 08-05-2024 MCH (RBC) [Entitic mass] MCH [Entitic mass] by Automated count 26.7-34.0 [facility] MCHC Auto (RBC) [Mass/Vol]on 08-05-2024 MCHC (RBC) [Mass/Vol] MCHC [Mass/volume] by Automated count 29.9-35.2 [facility] MCV Auto (RBC) [Entitic vol] on 08-05-2024 MCV (RBC) [Entitic vol] MCV [Entitic volume] by Automated count 81.0-99.0 [facility] Monocytes Auto (Bld) [#/Vol] on 08-05-2024 Monocytes (Bld) [#/Vol] Automated blood monocyte count 0.3-0.8 [facility] Monocytes/100 WBC Auto (Bld) on 08-05-2024 Monocytes/100 WBC (Bld) Automated monocyte % 1.7-12.0 [facility] Neutrophils Auto (Bld) [#/Vo l]on 08-05-2024 Neutrophils (Bld) [#/Vol] Neutrophils [#/volume] in Blood by Automated count 1.4-6.5 [facility] Neutrophils/100 WBC Auto (Bl d)on 08-05-2024 Neutrophils/100 WBC (Bld) Automated neutrophil % 43.0-75.0 [facility] No Panel Informationon 08-05 Eosinophils # (Auto) 0.1 10 3/uL 0.0-0.7 [facility] Immature Granulocyte # (Auto) 0.07 10 3/uL High 0.00-0.03 [facility] Platelet mean volume Auto (B ld) [Entitic vol]on 08-05-2024 Platelet mean volume (Bld) [Entitic vol] Platelet mean volume [Entitic volume] in Blood by Automated count 9.5-13.5 [facility] Platelets Auto (Bld) [#/Vol] on 08-05-2024 Platelets (Bld) [#/Vol] Platelets [#/volume] in Blood by Automated count 150-450 [facility] RBC Auto (Bld) [#/Vol]on RBC (Bld) [#/Vol] Erythrocytes [#/volume] in Blood by Automated count Low 4.20-5.40 [facility] Urinalysis macro (dipstick) panel (U)on 06-22-2024 Bilirubin, UA Negative Negative - 4(70) +++ mg/dL [facility] Blood, UA Negative Negative - 50 Jimy/mcL [facility] Clarity, UA Clear [facility] Color, UA Yellow [facility] Glucose, UA Negative Negative - 1999(110) ++++ mg/dL [facility] Interpretation and review of laboratory results Abnormal [facility] Ketones, UA Positive Negative - 160(16) ++++ mg/dL [facility] Comment on above: 15 Leukocytes, UA Positive Negative - 500+++ Mychal/mcL [facility] Comment on above: small Nitrite, UA Negative Negative - Positive [facility] pH, UA 5.5 5 - 9 [facility] Protein, UA Trace Negative - 1999(20) ++++ mg/dL [facility] Spec Grav, UA 1.03 1 - 1.03 [facility] Urobilinogen, UA 0.2 0.2 - 12 mg/dL Pending sale to [facility] IGP,APTIMA HPV,AGE GDLNon AGE GDLN ACOG TESTING Note . [facility] Comment on above: TESTS RESULT FLAG [facility] REF RANGE LAB Clinician Provided Cytology Information Source.............Cervix Other.............. No. of containers..01 ThinPrep Vial Age Algo ACOG Michelle... FLAG LEGEND: L-Low Normal,H-High Normal,LL-Alert Low,HH-Alert High <-Panic Low,>-Panic High,A-Abnormal,AA-Critical Abnormal Performed at: 01 =G [facility] [place] [address] Mar Rivera MD, IGP, RFX APTIMA HPV ASCU Note . [facility] Comment on above: TESTS RESULT FLAG [facility] REF RANGE LAB DIAGNOSIS: 02 NEGATIVE FOR INTRAEPITHELIAL LESION OR MALIGNANCY. FUNGAL ORGANISMS MORPHOLOGICALLY CONSISTENT WITH CARLOS SPECIES ARE PRESENT. Specimen adequacy: 02 Satisfactory for evaluation. No endocervical component is identified. An endocervical component is not commonly seen in the patient. Performed by: Judy Vera, Core Man ([facility]) . 02 Note: Note 02 [...] <-Panic Low,>-Panic High,A-Abnormal,AA-Critical Abnormal Performed at: [address] [place] [address] Mar Rivera MD, Performed at: =G - [facility] [address] [id number] Pit Furnace Operator: Mar Rivera MD, Phone: [phone] Performed at: - [facility] [id number] [employer] Furnace Operator: Mar Rivera MD, Phone: [phone] SPATULA-[facility]ONE C[facility]IX [facility] AFP, SERUM, OPEN SPINA BIFID Aon 05-30-2024 AFP MOM 1.36 . [facility] AFP VALUE 55.4 ng/mL . [facility] COMMENT: Comment . [facility] Comment on above: Ivet Mobely , Ph.D., [facility] Director References: Available Upon Request. Multiples Of Median Cutoffs For AFP Elevations [place] Rosario 2.5 Black 2.8 IDD 2.0 Twins 4.5 Abbreviation Definitions IDD - Insulin Dep Diabetes OSBR - Open Spina Bifida Risk For further inquiries contact [facility] at [phone]. This test was developed and its performance characteristics determined by [facility]. It has not been cleared or approved by the Food and Drug Administration. Performed at: [facility] [place], [place] [id number] Pit Furnace Operator: Kristina Carter [facility], Phone: [phone] GEST. AGE ON COLLECTION DATE 18.6 . weeks [facility] GESTAT. AGE BASED ON LMP . [facility] Comment on above: Recalculations are n ot recommended when gestational dating by LMP and ultrasound are within 10 days. INSULIN DEP DIABETES No . [facility] INTERPRETATION Comment . [facility] Comment on above: Interpretation: Scre [...] Customer Services to discuss available options. The [employer] recommends amniocentesis be offered to women age 35 and older. MATER[age] AT SARA 25[age]3 [age] [facility] MULTIPLE GESTATION No . [facility] OSBR RISK 1 IN 4034 . [facility] RACE . [facility] RESULTS Report . [facility] TEST RESULTS: Negative . [facility] WEIGHT 185 . lbs [facility] N N LMP [id number] 4 18 N 1 Y 185 N N N N N White/ [facility] Urinalysis macro (dipstick) panel (U)on 04-27-2024 Bilirubin, UA Positive Negative - 4(70) +++ mg/dL [facility] Comment on above: small Blood, UA Negative Negative - 50 Jimy/mcL [facility] Clarity, UA Clear [facility] Color, UA Yellow [facility] Glucose, UA Negative Negative - 1999(110) ++++ mg/dL [facility] Interpretation and review of laboratory results Abnormal [facility] Ketones, UA Positive Negative - 160(16) ++++ mg/dL [facility] Comment on above: trace Leukocytes, UA Positive Negative - 500+++ Mychal/mcL [facility] Comment on above: small Nitrite, UA Negative Negative - Positive [facility] pH, UA 6.0 5 - 9 [facility] Protein, UA Negative Negative - 1999(20) ++++ mg/dL [facility] Spec Grav, UA 1.030 1 - 1.03 [facility] Urobilinogen, UA 0.2 0.2 - 12 mg/dL Pending sale to [facility] ALL CBC WITH AUTO DIFFon BASOPHILS ABSOLUTE AUTO 0.0 [facility] Basophils/100 WBC (Bld) 0.1 % Low 0.2 - 2.0 % [facility] Eosinophils/100 WBC (Bld) 0.9 % 0.9 - 7.0 % [facility] Erythrocyte distribution width (RBC) [Ratio] 13.0 % 11.0 - 15.0 % [facility] IMMATURE GRANULOCYTES ABS AUTO 0.03 [facility] Immature granulocytes/100 WBC (Bld) 0.3 % 0.0 - 0.5 % [facility] Interpretation and review of laboratory results Abnormal [facility] LYMPHOCYTES ABSOLUTE AUTO 2.3 [facility] Lymphocytes/100 WBC (Bld) 26.6 % 20.5 - 60.0 % [facility] MCH (RBC) [Entitic mass] 30.1 pg 26.7 - 34.0 pg [facility] MCHC (RBC) [Mass/Vol] 34.6 g/dL 29.9 - 35.2 g/dL [facility] MCV (RBC) [Entitic vol] 87.0 fL 81.0 - 99.0 fL [facility] MONOCYTES ABSOLUTE AUTO 0.4 [facility] Monocytes/100 WBC (Bld) 4.1 % 1.7 - 12.0 % [facility] NEUTROPHILS ABSOLUTE AUTO 5.9 [facility] Neutrophils/100 WBC (Bld) 68.0 % 43.0 - 75.0 % [facility] Platelet mean volume (Bld) [Entitic vol] 9.6 fL 9.5 - 13.5 fL [facility] EO # 0.1 [facility] PLT 400 [facility] RBC 4.55 [facility] WBC 8.7 [facility] CBC without diffon Rbc Mcv (Fl) By Automated Count 87 [facility] Laboratory - Hematology and Cell countson 04-08-2024 Hematocrit (Bld) [Volume fraction] 39.6 % [facility] Hemoglobin (Bld) [Mass/Vol] 13.7 g/dL [facility] No Panel Informationon 04-08 [facility] Rubella IGG immune statuson 04-08-2024 Rubella immune IgG 2.32 [facility] Syphilis Total(Unknown Syphi lis Status)on 04-08-2024 Syphilis Non-Reactive [facility] Type and screenon 04-08-2024 Abo/Rh(D) Positive [facility] HCG ( test) Ql (U)o n 03-27-2024 Interpretation and review of laboratory results Abnormal [facility] Preg Test, Ur Positive Pending sale to [facility] Urinalysis macro (dipstick) panel (U)on 03-27-2024 Bilirubin, UA Negative Negative - 4(70) +++ mg/dL [facility] Blood, UA Negative Negative - 50 Jimy/mcL [facility] Clarity, UA Clear [facility] Color, UA Yellow [facility] Glucose, UA Negative Negative - 2000(110) ++++ mg/dL [facility] Interpretation and review of laboratory results Normal [facility] Ketones, UA Negative Negative - 160(16) ++++ mg/dL [facility] Leukocytes, UA Negative Negative - 500+++ Mychal/mcL [facility] Nitrite, UA Negative Negative - Positive [facility] pH, UA 5.5 5 - 9 [facility] Protein, UA Negative Negative - 2000(20) ++++ mg/dL [facility] Spec Grav, UA 1.025 1 - 1.03 [facility] Urobilinogen, UA 0.2 0.2 - 12 mg/dL Pending sale to [facility] PROGESTERONEon 07-27-2022 Progesterone 26.9 ng/mL Normal [facility] Comment on above: Result Comment: Foll icular phase 0.1 - 0.9 Luteal phase 1.8 - 23.9 Ovulation phase 0.1 - 12.0 First trimester 11.0 - 44.3 Second trimester 25.4 - 83.3 Third trimester 58.7 - 214.0 Postmenopausal 0.0 - 0.1 Performed By: #### P ROGES #### [facility] [address] [place] [address] Dr. Ryan Francisco PREG QUANT HCGon 07-12-2022 HCG QUANT <1 Normal [facility] Comment on above: Performed By: #### P REGQNT #### [facility] [address] [place] [address] Dr. Ryan Francisco HCG RANGE SEE BELOW Normal [facility] Comment on above: Result Comment: 5-50 0.2-1 WEEK 50-500 1-2 WEEKS 100-5,000 2-3 WEEKS 500-10,000 3-4 WEEKS 1,000-50,000 4-5 WEEKS 10,000-100,000 5-6 WEEKS 15,000-200,000 6-8 WEEKS 10,000-100,000 2-3 MONTHS Performed By: #### P REGQNT #### [facility] [address] [place] [address] Dr. Ryan Francisco XR HYSTEROSALPINGO EXPon XR [...] CLEMENTINE DEWEY Date: 2022-07-12 12:34 Normal [facility] PROGESTERONEon 06-29-2022 Progesterone 4.6 ng/mL Normal [facility] Comment on above: Result Comment: Foll icular phase 0.1 - 0.9 Luteal phase 1.8 - 23.9 Ovulation phase 0.1 - 12.0 First trimester 11.0 - 44.3 Second trimester 25.4 - 83.3 Third trimester 58.7 - 214.0 Postmenopausal 0.0 - 0.1 Performed By: #### P BRETT #### [facility] [address] [place] [address] [address] Ryan Francisco PROGESTERONEon 06-01-2022 Progesterone 18.9 ng/mL Normal [facility] Comment on above: Result Comment: Foll icular phase 0.1 - 0.9 Luteal phase 1.8 - 23.9 Ovulation phase 0.1 - 12.0 First trimester 11.0 - 44.3 Second trimester 25.4 - 83.3 Third trimester 58.7 - 214.0 Postmenopausal 0.0 - 0.1 Performed By: #### P BRETT #### [facility] [address] [place] [address] Dr. Ryan Francisco US PELVIS AND TRANSVAGon [...] by: CLEMENTINE DEWEY Date: 2022-05-17 17:25 Normal [facility] PROGESTERONEon 04-29-2022 Progesterone 5.1 ng/mL Normal [facility] Comment on above: Result Comment: Foll icular phase 0.1 - 0.9 Luteal phase 1.8 - 23.9 Ovulation phase 0.1 - 12.0 First trimester 11.0 - 44.3 Second trimester 25.4 - 83.3 Third trimester 58.7 - 214.0 Postmenopausal 0.0 - 0.1 Performed By: #### P BRETT ####[facility] [address] [place] [address]Dr. Ryan Francisco ANTI-MULLERIAN HORMONEon Anti-Mullerian Hormone (AMH) 6.09 ng/mL Normal [facility] Comment on above: Result Comment: For assays employing antibodies, the possibility exists for interference by heterophile antibodies in the samples.1 1.Steffen Wilson Interferences in Immunoassays - still a threat. Clin. Chem. 2000; 46: 2270-1249. This test was developed and its performance characteristics determined by [employer]. It has not been cleared or approved by the Food and Drug Administration. Reference Range: Females 20 - 25y: 1.23 - 11.51 Median 4.70 AMH concentrations of >= 1.06 ng/mL is correlated with a better response to ovarian stimulation, produced more retrievable oocytes and higher odds of live according to Larry et al. Fertility and Sterility. 2010: 94:7042-4213. The current AMH test method correlates with [...] tumor. Performed By: #### A WEI #### [facility] [address] [place] [address] Dr. Ryan Francisco FSHon 04-05-2022 FSH 3.6 mIU/mL Normal [facility] Comment on above: Result Comment: Adul t Female: Follicular phase 3.5 - 12.5 Ovulation phase 4.7 - 21.5 Luteal phase 1.7 - 7.7 Postmenopausal 25.8 - 134.8 Performed By: #### L [facility] #### [facility] [address] [place] [address] Dr. Ryan Francisco LUTEINIZING HORMONE (LH)on 0 04-05-2022 LH 6.8 mIU/mL Normal [facility] Comment on above: Result Comment: Adul t Female: Follicular phase 2.4 - 12.6 Ovulation phase 14.0 - 95.6 Luteal phase 1.0 - 11.4 Postmenopausal 7.7 - 58.5 Performed By: #### L BCL ####[facility] [address] [address]Dr. Ryan Francisco CBC AUTO DIFFon 04-04-2022 BASO # 0.0 103/ul Normal 0.0-0.1 [facility] Comment on above: Performed By: #### C BC #### [facility] [address] [address] [address] Ryan Francisco Basophils/100 WBC (Bld) 0.3 % Normal 0.2-2.0 [facility] Comment on above: Performed By: #### C BC #### [facility] [address] [place] [address] Dr. Ryan Francisco EO # 0.1 103/ul Normal 0.0-0.7 [facility] Comment on above: Performed By: #### C BC #### [facility] [address] [place] [address] Dr. Ryan Francisco Eosinophils/100 WBC (Bld) 1.7 % Normal 0.9-7.0 [facility] Comment on above: Performed By: #### C BC #### [facility] [address] [place] [address] Dr. Ryan Francisco Erythrocyte distribution width (RBC) [Ratio] 12.7 % Normal 11.0-15.0 [facility] Comment on above: Performed By: #### C BC #### [facility] [address] [place] [address] Dr. Ryan Francisco Hematocrit (Bld) [Volume fraction] 39.7 % Normal 36.0-48.0 [facility] Comment on above: Performed By: #### C BC #### [facility] [address] [place] [address] Dr. Ryan Francisco Hemoglobin (Bld) [Mass/Vol] 13.4 g/dL Normal 12.0-16.0 [facility] Comment on above: Performed By: #### C BC #### [facility] [address] [place] [address] Dr. Ryan Francisco IG # 0.03 10e3/ul Normal 0.00-0.03 [facility] Comment on above: Performed By: #### C BC #### [facility] [address] [place] [address] Dr. Ryan Francisco IG % 0.5 % Normal 0.0-0.5 [facility] Comment on above: Performed By: #### C BC #### [facility] [address] [place] [address] Dr. Ryan Francisco LYMPH # 1.6 103/ul Normal 1.2-3.8 [facility] Comment on above: Performed By: #### C BC #### [facility] [address] [place] [address] Dr. Ryan Francisco Lymphocytes/100 WBC (Bld) 27.1 % Normal 20.5-60.0 [facility] Comment on above: Performed By: #### C BC #### [facility] [address] [place] [address] Dr. Ryan Francisco MANUAL DIFF REQ NO Normal [facility] Comment on above: Performed By: #### C BC #### [facility] [address] [place] [address] Dr. Ryan Francisco MCH (RBC) [Entitic mass] 29.6 pg Normal 26.7-34.0 [facility] Comment on above: Performed By: #### C BC #### [facility] [address] [place] [address] Dr. Ryan Francisco MCHC (RBC) [Mass/Vol] 33.8 g/dL Normal 29.9-35.2 [facility] Comment on above: Performed By: #### C BC #### [facility] [address] [place] [address] Dr. Ryan Francisco MCV (RBC) [Entitic vol] 87.6 fL Normal 81.0-99.0 [facility] Comment on above: Performed By: #### C BC #### [facility] [address] [place] [address] Dr. Ryan Francisco MONO # 0.4 103/ul Normal 0.3-0.8 [facility] Comment on above: Performed By: #### C BC #### [facility] [address] [place] [address] Dr. Ryan Francisco Monocytes/100 WBC (Bld) 6.7 % Normal 1.7-12.0 [facility] Comment on above: Performed By: #### C BC #### [facility] [address] [place] [address] Dr. Ryan Francisco NEUT # 3.7 103/ul Normal 1.4-6.5 [facility] Comment on above: Performed By: #### C BC #### [facility] [address] [place] [address] Dr. Ryan Francisco Neutrophils/100 WBC (Bld) 63.7 % Normal 43.0-75.0 [facility] Comment on above: Performed By: #### C BC #### [facility] [address] [place] [address] Dr. Ryan Francisco Platelet mean volume (Bld) [Entitic vol] 9.9 fL Normal 9.5-13.5 [facility] Comment on above: Performed By: #### C BC #### [facility] [address] [place] [address] Dr. Ryan Francisco PLT 421 103/ul Normal 150-450 [facility] Comment on above: Performed By: #### C BC #### [facility] [address] [place] [address] Dr. Ryan Francisco RBC 4.53 106/ul Normal 4.20-5.40 [facility] Comment on above: Performed By: #### C BC #### [facility] [address] [place] [address] Dr. Ryan Francisco WBC 5.8 103/ul Normal 4.0-11.0 [facility] Comment on above: Performed By: #### C BC #### [facility] [address] [place] [address] Dr. Ryan Francisco FREE T4on 04-04-2022 Free T4 [Mass/Vol] 0.99 ng/dL Normal 0.76-1.46 [facility] Comment on above: Performed By: #### F T4 #### [facility] [address] [place], [place] [address] Dr. Ryan Francisco TSHon 04-04-2022 TSH 3.086 uIU/mL Normal 0.358-3.740 [facility] Comment on above: Performed By: #### T SH ####[facility] [address] [place], [place] [address]MgDr. Ryan Francisco US PELVIS AND TRANSVAGon US [...] by: LUCHO MIXON Date: 2022-04-04 16:38 Normal [facility] Auth for Release of Medical Recordson 12-20-2021 Auth for Release of Medical Records [id number]# 1.00CD:127 Normal [facility] Coding Summary.on 08-22-2021 Coding Summary. CD:[id number]:[id number] Gh0bWw+PGhlYWQ+PE1FV BBvP30edMQnzB0AZ4rKX V5YWHQMZEMGFR5FWE0uj LX3THzoY3LvjfDb AyqzgSEtYW44YMj1IEE2 uGnbUXymtE7nbYUoY1w3 JeGlDR90aW04GFuxIDVu MjA1VxFdecuahDSp I6qzBoFgnMQvKzz+PHRh YmxlIHdpZHRoPScxMDAl NwMdrUocTE6kUo4qUVDv LWNvbGxhcHNlOiBj f4dnLSGgQHhsGS1abYep K5JmyUV4ENBof3l7Jt61 dHI+TVBrXHO7hMxoPIcj g679YwIih8jaRKP5 cXUlFPevIMQ6M19hc5I0 NLAdCLAvMCN0rII7zK9t zBttwmfdU2QmqYHhFwW7 MWK0xTQynK1ijAhu czvslC2bUmq+O68CEC1O NBHACD6TKdw6J1McTzhq dHI+YY09YBDwQM87aMGr xKVft7vkyAv3GpIs ZYVgXQO5vDliVLuwr1Iq EFKbV43pmPZad6I5XDHt yDiuxEAwMdZzeCO7gY7t HTesbnusy3suohjg Bxmhg4dvyo33vG42J77n UBzyLKVdHTU4FATlFKRd aNjxji9coQ8wOk2+IDxj l1cas8mpaAi3NhBw PXOjzcSboQmbBNF5c4Kw Je69K3BxeYiai8VgPzw1 jd84kXEyh9B9wPW1MVou AZJvaS3eOVpnPsP8 MXYuRiBqnO91vCJzOWyw Ri8rbLpbwVisYR8bPWHb bueoLLKfmH3zYVFsrHWt lTvfRO8xTGSjhmrw v050KkVhYRU6WMFusVXl E5YzkE2zCbDyXSIjKPFg P7JcwOFmUQonQ896EXoz DwW6ZRPakjCaF4Lp CVPnyGsrAtD6p1F2Ku9E x7TljzabHTA5EYzbXEOf NxC5UeWfUoT1S4XsGgk6 SAZdcIjuER4jW7Hu WHPysiglovzrpPP2TRLk NFHlqQ43uCExMPiaXe1i v9B3j510EBCdXUVsjQ91 Gx8qfAcmWLEblSTW cG5gdzafp9azeouhYtJt SWHeJBp8QUp2YVPiiYud RvZnZWF7DsK2SNS9uJIc zT8orEzebwqsaF2f Oyc+D45fhS5kZRD1BIX3 bfisNGVxigFsYA43PA43 X6GlKwstaMQihDE+PGRp gvJgnWizRZ1aEwEl e2gsm8XnACvpC4VrFGGa UQifEgw4SOXnDJY9xUZ4 lT6uJNUyWPmbi2D5lPY7 V9AhnpJyda9zh7fm CSBjDZymC88ogTTlc0Y0 ELLtkTB4GMAaoOxqQwVn nG70Exo+ZGPwzDsti8Ix Hcxcg0aqr0sohFz8 IjMwJSIgdmFsaWduPSJ0 g6UnNl07B69xHTwuXUFt WURrQOSiOHOqlWiids5z mL4fFx7+PGNvbCB3 gTG3hK5aJZHtSdP9DMnx W783WiUchVXrVcydw8ix u7gjwUx5FoZdBLAzqvEz sFruXIW0c4NdSe11 D08jKSvqHRFxIFWnLDRz DWUhlXcafo7wcG5aYx9+ FI2jo2orpm51eP77zVH+ VSNoYGF2eRvgFVfu FJIfqJ6bTWknAaI2ZCQx FhTqtW05yDRpMWzsDk0q uMmtaXgbRP9jIIWuvvtu i241TuBpo3seSCNi dTCwZMfzBHV1Z42uu9L8 MHRaNVQnAJJ8dRX2nZ7e bGlnbjogbGVmdDsgdmVy cYclQYexRBmdP691 IHRvcDsnPlBhdGllbnQg CxBaPJy0B8StTfz9EKLv dWarEP9hzECfFDigJt0j eDienJsoVI9kLEJq ynzux248FbClv2vaZTDf rYRfXNmaKTT0A29oi6Y9 WAOnNYBmZFO7yCL2kI1o bGlnbjogbGVmdDsg gnWmuAiyUAuySAvbX609 IHRvcDsnPkJpcnRoIERh sRC2HG09RZ99jOWhc9I5 vPN1J0GmZXZbbwwe jffemOU7MZVtTBTzqW05 Ir1juKaaNz2kLEGsJZN0 VVYzyATuV4BlcX5iMyJe EBApOHKkA5PdxTRt OCswK050EWyuXxX8CKGr nhYxS7KyCDZeuHbjXdU6 c9J3Yz2RK8M8IE30VK65 uEGhk2J8uYQ3Y4Va MJAfibuhtkacrEF5YJBw HVDyaM27Nx8ivHkyHy0a AFMfWPG6XMTbiFNoD6Yn uK5uXkWnUASvISZb S6KqjYUpWDywU767OPij EjF0JOAwgiKpZ1UbISAe oAsgHqP8t9P3Pd0DUXc5 JW77QV25fDYtm8D7 uPW6W3HgUJLqffnxcxxm tZS9OMVuWPFuqC18Lp3s hOzrAk9dLHZvGYD7MCDy nGGyY3LsnM8xWfWk EQMwRDLqM8GwzKTnUKvb S500DOlhViC1WZMlvsLo F5OhKWQgvQlxZnX3i7B3 Qn0IIIPhWP14VCT9 vMW0VE28SO29H2GvJdpm dGFibGU+PHRhYmxlIHdp ZHRoPScxMDAlJyBzdHls CZ0aFp7pSLMuRAWx nSvxlDBnSxIdd1ejEVVo WHjyXP2xnGpwA7OxbFJ5 ONYiv0j2Kr06I23qK1Al dXA+JZTyuIZ4eXL9 wN7gGrGgYxJ6RVmiD761 TcDmjYAqZkqic0cjm4kl jMh0BsM7NOBsofUekMbg XTV6j8RiNt82R17a IHdpZHRoPSIxNSUiIHZh zHwifr7jzM1jSq4+PGNv fHA9jHE6qF7wPiLxWcF4 CHddD337YlBxuOPu Kjayc8nqd3gmlPu0VyYi UVWzaaCupAvoBYS2t3Kf Sv46Y4LvzBaxu0ZkKnk0 ip14qATay8Q4mCO1 Y3DbIFJfbhszbLMgoRum AP2qQDWszfnoQTGgyX2g FAEyD6z5QwUrFdF6CUoz S9KczuS1DJHkfYOr VQloNAW3R95ep7G6MNIv LGRqCKB4iKI6kQ5xqEmi bjogbGVmdDsgdmVydGlj RLenTYcgV006LQZk hUdmNYEnrG4kBGEvtOXu gHohRL4zBGUvlbbuQpxF JIRbZSnVWDCNKS13PO71 rXMzl5B2wNN6X8Bx BAUmuihusioppFM9QDXx JAGfbT10kIAaRHrcSp3m s6Y4h232ITZpEVHybV13 Yz6hpCbwGJCttDFY jH1izjbvo3dnonhvWvKp UEJnWTh8EFs4DKRfuMzc VuEsZVG7MhF1ZJQ0cCVs gD1gbFwagmzdvT7x Oyc+EDPoNasnVWw5LNib dGQ+OLEpNYR7bJqkGNcp ZCUsdL9xKYKdJ4a7IrVt EfZ8PJqmH1GsNIWd zkuzYz40rO2qClFvHbQ9 RLfzU4XkjjN8GEOjuOVn XKpfYOQ9K75cl7R4QJHt ZTTsUJH7iZU4qI5w bGlnbjogbGVmdDsgdmVy wCtcJEwcZBxcU179QXHn dBalQhJhFKzxBPAkHG80 OO90tQJmz0M0jLR9 L8RnCGTwnkwocgdsiHU6 ASMqCLTzaG07zMBsAWgh Re7kg7P3c355FOPwGTDr nE22Iv1ckKyxXEQk vTEWzB3rbtsff9ncnjrl YqXiWGGoTDc2THb1APOv zNqgPvTvRCQ8ArL3QRE9 sOOpqP6lvJxabiof tW3aCuz+QxDqHIzxTF36 VE53fMMaq2B8pCH9M1Ed AVVturtoravejTY1IIId CMPceI57oHJxIKni Bt7zv3C9q843LHDeAUMd zR05Kl4vkZcoYOOkpAXJ hE9dbqhvc5unpgjdMvFm HHNnKCw1WBm5HXPh lZnbKrHfKXU4TyN7TZY6 ePErkV1neWogohwpnO4m Oyc+C0P0qDJ9kKZbhMgn dGQ+NL64ha95M9Io OdtmIlt9QQDaEEB8rMO5 gN7sWCFmAOyza9H6fEG5 L1JbhcGsik1xb7izRTWx YWzeZ47rfJWuf1Z9 APOhxSK6LWIjrFqnAcAh zF28Fkw+WQQenTnqx0Sn Vinvq5vav2pdbPb7RkRd JSIgdmFsaWduPSJ0 h3XuJo84H35tFVuuMDUf CYUnOECoYIHuuBmlye5w rR4qOa5+HUKsrVB4bPT9 aD0bLzFwUdS9AGvq A602LuFawRRpJuxvs3ig y7esxUl9DnKpOMBvhcQq hJyhSQM8x1JjNa14X0Tc vUfye3UjNrl1mo62 lVHjx2G9sJQ5D8IgBOJr sknctHWlqClfBF3mXOJc qivoEGMeuF7fCOMfZ7j9 FnSeTaO8MDzxI5Vr oxE6CHUrvMZmMEQgvNGQ eS8plgykx5djmovkWoUa GXVpDYd9KRl4MUKbhCas AwLiMGN8NyP0AYA8 zOKkfC0llNtrqinjwD3y Oyc+OOb9k3edrDJvJE2a yHP9EF66HN02cOOfv0V1 oDJ7L7OzXCFnizrk ivkveIE9GCQlIWLrwK93 Zm6uiTjoGf1eDLGdVAR5 CTRrdQXzB2NssX9hLaWw XIVkZOVtG5HszVCs ORvlR460UNgvNqN8UKAc ghYuY6EcAEHkeAkmLcJ3 g9C2Yn9SXI85VS69ZY85 gHCjg0S0uZB2Y3Yp WYNzyhnbwudpwQX9NHFj QDLciF21Is2nxZxwAm7h MKHwZDZ9LXKgxNBrF1Pf jE5nJvJxGKXwDBKy M3EpeHNzJJwxN289JLis YvN9OZWrrfJrL6IpIYPn jSvkLgF5u9J1Qp2PKc85 HO00EW72aGAce6T5 kKR4Z5YvLZStsahsbmhg eHR0VLZsTFKwbL25Ry4p tKyhLl7mVIGoMGR7JUBm rXUrZ1NejM1qJgNw GJXzAJEgD6XmxRNtNJal J230OClfDmN5PDBahdCp C5WaTKRaeVgyHmV1h3J3 Xa5CATbpkjm5P8Mc PjwvdHI+AT61ULKqLU76 wFZyfCUen6wpoMt3HuAr ICSpSHN6fRpeZEktn4Ts BYFvS41fzOVcy5B0 IGNv (more content not included)... [facility] Coding Summary. CD:[id number] Gh0bWw+PGhlYWQ+PE1FV WFbY29itNIpqB0AH0wKH O1XDHLSULCPCG1EIP2jf PX0NSsyJ5GapsXq OrpwxJQaNC54KKm5YSL5 hWqrSPfjbD1ikJJdL8x9 GkRtNL59eK96ZXgmEEBw TlY4PuDvwxxxwDZv L6oyJbUdnKUiZja+PHRh YmxlIHdpZHRoPScxMDAl RfWjxAzoKI8zJt2oTGFp LWNvbGxhcHNlOiBj x1gmWTPpYQxrBA6xrEyr B2FliUT9GTXxq4c5Xx56 dHI+SSWoHAN0pSubMJhb a973YbFgd5thFRE6 yKUjJIouCMN2Q94cu2N3 SZYvUBQuOIY4wNV0jO6g qRgvkmzfV6DpmHZtOtM7 MBE8aBPxvR6rqLzv nbdhoK5lAth+E97XLH9K WVPPDT2JZnz0A1NgRrmf dHI+MZ14SWXoCN72bDWh zXNwo1qucNo5MbBw KOWeKPY4xCpsZMuxq6No UEJtD28fzQVeo9P0NNFb tAzlwHKfCnGluMS2tM4v HZzogcabs0opduqn Rxcva5hmyw73kL56Z72p SZpgFFWtWWW8KVBhFWTv jCcuiw3usA9vUi8+IDxj y8eek2qjlLi9EuTc PHUtdaLqbPcbQLE0l3Qz Ua69R2FgePdsi8IkHww1 cb93bDQct5U9hTY6CNnf LNHdnG5hXMtlFcU1 HIThMvYoyI62oOJpIFxw Og0ojAubtAskTI5zXSLv ejwqIUQgaV0oBPHdnAWb vPpyCH1kOYXamryt p877TpRvGEJ6KBMyqAPq N1ExiM1zMrClEBCoTYBc D1RwhDQoHXpjC530JWrv CmF1OJQbrgMwF1Cw UZRmiOjvFyJ5t5K6Hg7N t8QfpcprPAT1ZWiqJQQy ZlM6KuSqYdR1O3BpBzy9 VZTyiWdeCG1oV7Jo LPTiwvedixkoyAF9MZMw DBJreC07wLAvCYmaGq1t e7K6e476MMWsMXLjlH09 Pp6bhNpyADLsyKOW dY1raowbw5pojjdcAkTw ZUPmGFe1MAs3HZRovMrg LmTbNOW7LjW6CVY1iJLy qB7esHgfgrfdnE1r Oyc+Y20xxI3iQQA9ASM6 tsgaGEVdxlEeBK02GD51 T5AuKprvoBRhvOE+PGRp pyJjlZjeXP0iPkAy s2jgy4PeCIicQ7LkPRRr LUwvNtb5OKPyAYE8eSU5 jJ1yFZPtJFzcn5C5iKF6 J9CnqpZvuu1lz4hp NOYsYGqvG04diLKwz3J2 YWRstEK2XJJmuSevBfDy hL35Utn+RZAjrJxws1Rc Drntz1dkq7jkpYw9 IjMwJSIgdmFsaWduPSJ0 i0IjPp01X48sYFooIXFm QPOaLJTxJCQmlFletb8h zZ0mQt3+PGNvbCB3 cVJ2zJ4sRHXqCiN6OHis I828SaDtmTNmNrqcv2ej s7mpcEd4ImXcIAXmvcFs nDuwGPW6j8OvRc11 Q79hQSvpODXbIHAlDWPu BQXslFzsqw7ytM3qNq8+ CY4ii1xjms31bB14bER+ SMZySMC9mYptKPzd QIBgaY2rBRyuYcW6MALm GnCvuD35uGZmFBmbSk4e oEzwtCqgEH8pYHPffwov l751TkGuc4ktHQUp dWKqWGcuSAN7D26gy5Q4 XZTqPDMeTJK5dCA7kO7y bGlnbjogbGVmdDsgdmVy gXiaNImuHXeoS826 IHRvcDsnPlBhdGllbnQg BhBgNOj6B4IdWbm6LBXb iTyhDX5nsLOmUGztKn3t aEduvFmmSH7lNNXs hrjpp250XiDgm5pgOBGj vZKfEKyiUSO3O23pf7L1 LBVfZGGpUBL7zMI2eC6f bGlnbjogbGVmdDsg qaKpbTdyTAaiAJfqZ202 IHRvcDsnPkJpcnRoIERh eNK7RI65RA70iEVpj8L1 nJU1X1YcHLUgxkvu kvicyNW8UYZmLRMroG58 Lr7ufRvtAa9rRIXzDHI7 FSXxcJUaY5RodT1rUtPq FDDgYCVyL2SoqMYs QKcnH977KEyoFsX0ANEn suWzL0UbWEUmlGxfJqM0 r0P7Sk2BT4Y6QJ41PH04 gFIdk0C3fGE1E0Eh PRRrmqsyujcldIK1JSIg XHJufS23Yn1wfHxfJy8o AGVnKUS7NMLgaRFnR8Qk tW8tZgRzDWAjNQSq S9BxfGPeKPetP339LFke XsM6YVGiqjTuF9BwSZSe qEspYiV2w2S9He2AYTx3 RJ83VI77dKWsd6H7 wFL4S9CsWCLrneoawaku yEW0VSNqNSGclJ72Ah3r sVboIn7pSBKhIRG5WUQx wVWvH2OzoL1xJkBb DHHtFCPrX9MojROyZTek K399BQdvOaG1UKJcptKb S1NmKCByrWflWwF7z6Z2 Bq0EVVJiTW15WYB8 rST6MT20DN74X7NqCfje dGFibGU+PHRhYmxlIHdp ZHRoPScxMDAlJyBzdHls SS2sBk6wVZJyTISj oFveyZSpKaHow5wgTHJa GBveVE5lkVfiY4TdvVD7 DILnd2p2Wb81G56mI8Qp dXA+KZJfbYM0iWD2 bA0eDjByRwX1BEmiG649 FkLjtHCfAmcwg0jli2ek lRp0DyX8TFPyjmSmkCen JYM8k1HdWa34S56z IHdpZHRoPSIxNSUiIHZh yYflgw4elW7dAg3+PGNv wLI4cAF5qY9vWvKcYpB9 QXusF303DgIjcTVo Lynfc2gao0vsgRz2CsIv GWFateDojLdcRPJ2t5Rb Dz12M9VswFvsw7WbXte3 zk71yIAqy3Q2aRL5 W7YbRHQfarbarTFujRdy QS0yZCSolrcpHTMebX2p NFDnX0j3RqMxKwF4OYnn R2ApqxO9PWRygKBe HKmuHHH4C72ti0T0APTm RMUqVFF7eFP4nY6ijTbn bjogbGVmdDsgdmVydGlj FFcnOGqbM507ENVz pZtpPIIveC4lIUIxvMHm tEbzQF6eCQResghhLfnU WPXqEZsRSZNCRY97EL13 lTNri3G8mVM3K4Qi GSHhzipuhjfmzVO4PVSm DOIfvN45jXNmXAxvGh5a i7P5e931GYRmCLZkgW88 Mf0zsLhvDMDptVDZ yV9jccbjt1lxvpqyRiHy LRHzHNx7QMr1NZYmtBxk SiSoZKU5XdH9JZR2bRYa lX1wcNevnnxdxB5c Oyc+LFKoLhgkLLs8CSui dGQ+PCEaNFC3fWofITky SIEawM5gDVTwD0i5WiKr RbI8DUyaD3DoYFFy mqvlEb25gV2eLyTdHoV8 BYcbU1KpeyR7SHUfxZSc SLzdPXL6V15al7E2FUMc CTRhFKO3oJJ4zN6p bGlnbjogbGVmdDsgdmVy yPzeVZowOOjuD947TUMl yNgzNtYiPNjsQZAkAP57 FB17qGNpo3J6vYJ1 V8MgUBTebrqoslwrkGR4 ZFPbOBAmnR46lCQoJOap Rf3ym3G2c769RXUhBDEm mX10Ot8ggCxoKSFr hANJqW6bzrodc0ddolpi YvEyCERnXAg5OWe5XMNo uTtfYvCuQHN6FnF5MZI1 sQVfsM7kyGoxnpvf wV6gJic+DzYtOItrMA62 XR84lZNyn6A7vEN3D0Ym TJFfrrqchmtucUH6QFYp DXOdwI19gFPhZYgn Xy4fs3S9w113YPUlCTLz oK61Uy7bgLibENLuvXVF fT8ypuzxf3bwbicuSfId GQKxCFo4KNj9XODo oWquAbBaNQT8TvC1IYW2 yXYumR4foXzlqjvotN4d Oyc+DSUoQCZts0Olv3Le MZ94TD57Y7MkNlyx dGFibGU+PHRhYmxlIHdp ZHRoPScxMDAlJyBzdHls NR7cGr4vQLCuJXElgDnm lXOcJkAnq4ysALQg OWqgUR1zoNdbR3ItlRO0 JMNdx3f6Ec19Y07xG5Pv dXA+LYJjqLO6fEL6uO6g NbBdMkI0VKfvF741 XgCvrMPaUcfis9nfn5xi pNx3TnJjMQTskkHfuBky ANV3e0RbFt61J59vFLys ZHRoPSIyMCUiIHZh tWfrgr1ugX3mUh8+PGNv tFY5mYW6rF3kJyOiUzC0 ECaoR517NfAdeKBbEqns W55rZ7SnfGJ+PHRy Vea6AFFmfZwyMJ7hkQTc JZqeGp3lKHS1VrXjGoGd CHfiF7JdHLApdqodzyhj kCJ9TVHlSARvaQ85 Nf1nuPlwBw5sZHYaQLU4 CDSgqHZfQ7JzoG6yJhUc OYTzKJIiE2XpwEScGWtl W975ARaaKyZ1KFLu wcIsP4BiCCPyeGpnRvU3 t0P1Rs7VaQhhoKGdHO3w LeBaYNe9M3BvFge5RRWd uLtlGF5lqHIiHJsc Yn2zxYqjsPuqKS0fIWFw mlbda321EsNek5qiHFMm qJYiLZzsZGI3G39ep2L4 ETPwAPMuIFG5nGA3 rJ0anQptrvhgpFBcfHdy zgSjtGksVIfoDWksG098 SJVchIreFvWDHel9U9Vr Rnn8TTRzbUkvGR7l xOPpARshYg7siRjjmQqn MF9kVNGqexvld570TyJv c1cyBWYuvUSuPVheYBM5 U63vl6C2VRInAPIv LRM5rQA7xD6wiTaspcbb bGVmdDsgdmVydGljYWwt FDpfD835QYMkaOpgEz3K Azb6K5ApJsn5XZOe tCreIN0hkCUiVVlgEf6v vKwbzXlpCN4rAGPjtbqm f184SwTxj9csBGMirIFb NPrlXHV0I97dg1N7 HTCuLOYePTW9yOZ9cN8u bGlnbjogbGVmdDsgdmVy pRytJLuzKRooN236TTYj cDsnPlBheWVyOjwv dGQ+AL84fi52S6ZaWgqn Hxm0GRQmHXB8oWV6fS8e KWFtQTbve0Q5uPP8S9Xo yaQxvk0ia9kkAGDr ZTog (more content not included)... Normal [facility] PAP [id number] 08-15-2021 Cytology report Cyto stain Doc (Cvx/Vag) Note Invalid Interpretation Code [facility] Comment on above: Result Comment: TEST S RESULT FLAG UNITS REF RANGE LAB Clinician Provided Cytology Information Source.............[employer] No. of containers..01 ThinPrep Vial DIAGNOSIS: 01 NEGATIVE FOR INTRAEPITHELIAL LESION OR MALIGNANCY. Specimen adequacy: 01 Satisfactory for evaluation. No endocervical component is identified. Performed by: Byron Engle Core Man (ASC) . 01 Note: Note 01 The [...] <-Panic Low,>-Panic High,A-Abnormal,AA-Critical Abnormal Performed at: [address] [address] Mar Rivera MD, Performed By: #### 1 [id number] #### [facility] [address] [place] [address] HPV 16+18+31+33+35+39+45 +51+52+56+58+59+66+6 8 DNA Probe+sig amp Ql (Cvx) Negative Invalid Interpretation Code Negative [facility] Comment on above: Result Comment: This nucleic acid amplification test detects fourteen high-risk HPV types (16,18,31,33,35,39,45,51,52,56,58,59,66,68) without differentiation. Performed at: [address] [id number] MD Nicole Manuel Performed at: =[address] [id number] MD Nicole Manuel Performed By: #### 1 [id number] #### [facility] [address] [place] [address] Insulin Lvlon 08-11-2021 Insulin Qn 24.3 u[IU]/mL Invalid Interpretation Code 2.6-24.9 [facility] Comment on above: Result Comment: Perf ormed at: [address] [id number] PhD Archie Jha Performed By: #### 1 [id number] #### [facility] [address] [place] [address] Consent for Treatmenton 07-29 Consent for Treatment [id number] #1.00CD:127 Normal [facility] Glu Fastingon 08-10-2021 Glucose [Mass/Vol] 95 mg/dL Normal 55-99 [facility] Comment on above: Performed By: #### 1 [id number] #### [facility] [address] [place] [address] Physician Orderon 08-10-2021 Physician Order [id number] 2#1.00CD:127 Normal [facility] PAP [id number] 08-09-2021 Collection Technique BRUSH-SPATULA Normal F [facility] Comment on above: Performed By: #### 1 [id number] #### [facility] [address] [place] [address] Gynecological Body Site ENDOCERVIX Normal [facility] Comment on above: Performed By: #### 1 [id number] #### [facility] [address] [place] [address] Physician Orderon 08-09-2021 Physician Order [id number] #1.00CD:127 Normal [facility] Gynecology Office/Clinic Not pratik 02-17-2019 Gynecology [...] Family History Family history is negative Normal [facility] Comment on above: Result Comment: Elec [...] Family History Family history is negative Normal [facility] Comment on above: Result Comment: Elec tronically Signed By: Shamika ISAACS, Kaley Wilson\.br\Date and Time Signed: 02/17/19 12:09 EDT Vital Signs Date Time Vital Sign Value Performing Clinician Facility 09-29-2024 11:34-0500 Body mass index (BMI) [Ratio] 36.18 kg/m2 Immanuel Yobani DO Work Phone: [facility] 09-29-2024 11:34-0500 Body weight 89.72 kg Immanuel Yobani DO Work Phone: [facility] 09-29-2024 11:34-0500 Diastolic blood pressure 88 mm[Hg] Immanuel Yobani DO Work Phone: [facility] 09-29-2024 11:34-0500 Systolic blood pressure 140 mm[Hg] Immanuel Yobani DO Work Phone: [facility] 09-22-2024 09:37-0500 Body mass index (BMI) [Ratio] 35.85 kg/m2 Immanuel Yobani DO Work Phone: [facility] 09-22-2024 09:37-0500 Body weight 88.91 kg Immanuel Yobani DO Work Phone: [facility] 09-22-2024 09:37-0500 Diastolic blood pressure 70 mm[Hg] Immanuel Yobani DO Work Phone: [facility] 09-22-2024 09:37-0500 Systolic blood pressure 120 mm[Hg] Immanuel Yobani DO Work Phone: [facility] 09-08-2024 08:28-0500 Body mass index (BMI) [Ratio] 35.56 kg/m2 Immanuel Yobani DO Work Phone: [facility] 09-08-2024 08:28-0500 Body weight 88.18 kg Immanuel Yobani DO Work Phone: [facility] 09-08-2024 08:28-0500 Diastolic blood pressure 90 mm[Hg] Immanuel Yobani DO Work Phone: [facility] 09-08-2024 08:28-0500 Systolic blood pressure 132 mm[Hg] Immanuel Yobani DO Work Phone: [facility] 08-27-2024 11:45-0500 Body mass index (BMI) [Ratio] 35.08 kg/m2 Immanuel Yobani DO Work Phone: [facility] 08-27-2024 11:45-0500 Body weight 87 kg Immanuel Yobani DO Work Phone: [facility] 08-27-2024 11:45-0500 Diastolic blood pressure 82 mm[Hg] Immanuel Yobani DO Work Phone: [facility] 08-27-2024 11:45-0500 Systolic blood pressure 122 mm[Hg] Immanuel Yobani DO Work Phone: [facility] 08-12-2024 11:08-0500 Body mass index (BMI) [Ratio] 34.93 kg/m2 Immanuel Yobani DO Work Phone: [facility] 08-12-2024 11:08-0500 Body weight 86.64 kg Immanuel Yobani DO Work Phone: [facility] 08-12-2024 11:08-0500 Diastolic blood pressure 80 mm[Hg] Immanuel Yobani DO Work Phone: [facility] 08-12-2024 11:08-0500 Systolic blood pressure 120 mm[Hg] Immanuel Yobani DO Work Phone: [facility] 07-20-2024 11:00-0500 Body mass index (BMI) [Ratio] 34.39 kg/m2 Immanuel Yobani DO Work Phone: [facility] 07-20-2024 11:00-0500 Body weight 85.28 kg Immanuel Yobani DO Work Phone: [facility] 07-20-2024 11:00-0500 Diastolic blood pressure 76 mm[Hg] Immanuel Yobani DO Work Phone: [facility] 07-20-2024 11:00-0500 Systolic blood pressure 122 mm[Hg] Immanuel Yobani DO Work Phone: [facility] 06-22-2024 14:31-0500 Body mass index (BMI) [Ratio] 34.2 kg/m2 Immanuel Yobani DO Work Phone: [facility] 06-22-2024 14:31-0500 Body weight 84.82 kg Immanuel Yobani DO Work Phone: [facility] 06-22-2024 14:31-0500 Diastolic blood pressure 78 mm[Hg] Immanuel Yobani DO Work Phone: [facility] 06-22-2024 14:31-0500 Systolic blood pressure 124 mm[Hg] Immanuel Yobani DO Work Phone: [facility] 06-15-2024 10:27-0500 Body weight 84.82 kg Cele Rodriguez MD Work Phone: [facility] 06-15-2024 10:27-0500 Diastolic blood pressure 88 mm[Hg] Cele Rodriguez MD Work Phone: [facility] 06-15-2024 10:27-0500 Heart rate 99 /min Cele Rodriguez MD Work Phone: [facility] [facility]24 10:27-0500 Respiratory rate 18 /min Cele Rodriguez MD Work Phone: [facility] 06-15-2024 10:27-0500 Systolic blood pressure 137 mm[Hg] Cele Rodriguez MD Work Phone: [facility] 05-25-2024 11:46-0400 Body mass index (BMI) [Ratio] 33.84 kg/m2 Immanuel Yobani DO Work Phone: [facility] 05-25-2024 11:46-0400 Body weight 83.92 kg Immanuel Yobani DO Work Phone: [facility] 05-25-2024 11:46-0400 Diastolic blood pressure 74 mm[Hg] Immanuel Yobani DO Work Phone: [facility] 05-25-2024 11:46-0400 Systolic blood pressure 118 mm[Hg] Immanuel Yobani DO Work Phone: [facility] 04-27-2024 10:35-0400 Body mass index (BMI) [Ratio] 33.75 kg/m2 Immanuel Yobani DO Work Phone: [facility] 04-27-2024 10:35-0400 Body weight 83.69 kg Immanuel Yobani DO Work Phone: [facility] 04-27-2024 10:35-0400 Diastolic blood pressure 76 mm[Hg] Immanuel Yobani DO Work Phone: [facility] 04-27-2024 10:35-0400 Systolic blood pressure 122 mm[Hg] Immanuel Yobani DO Work Phone: [facility] 03-27-2024 10:27-0400 Body mass index (BMI) [Ratio] 34.53 kg/m2 [facility] 03-27-2024 10:27-0400 Body weight 85.64 kg [facility] 03-27-2024 10:27-0400 Diastolic blood pressure 70 mm[Hg] [facility] 03-27-2024 10:27-0400 Systolic blood pressure 120 mm[Hg] [facility] 01-02-2024 09:15-0400 Body height 157.48 cm [facility] 01-02-2024 09:15-0400 Body mass index (BMI) [Ratio] 33.9 kg/m2 [facility] 01-02-2024 09:15-0400 Body temperature 100.2 [degF] [facility] 01-02-2024 09:15-0400 Body weight 84.08 kg [facility] 01-02-2024 09:15-0400 Heart rate 115 /min [facility] 01-02-2024 09:15-0400 Respiratory rate 18 /min [facility] 01-02-2024 09:15-0400 SaO2% (BldA) [Mass fraction] 99 % [facility] Encounters Encounter Date Encounter Type Care Provider Facility Start: 09-30-2024 End: 09-30-2024 Clinisync Result Encounter Immanuel Yobani DO Work Phone: [facility] Unsolicited Start: 09-30-2024 End: 09-30-2024 Clinisync Result Encounter Immanuel Yobani DO Work Phone: [facility] Unsolicited Start: 09-29-2024 End: 09-29-2024 Bamboo flowsheet Immanuel Yobani DO Work Phone: [facility] Start: 09-29-2024 End: 09-29-2024 Bamboo flowsheet Immanuel Yobani DO Work Phone: [facility] Start: 09-29-2024 End: 09-29-2024 flow sheet Immanuel Yobani DO Work Phone: [facility] Comment on above: 36 weeks gestation o f ; Third trimester Start: 09-29-2024 End: 09-29-2024 ambulatory IMMANUEL YOBANI Not Available Start: 09-23-2024 End: 09-23-2024 Clinisync Result Encounter [...] Start: 09-20-2024 End: 09-20-2024 ambulatory NON STAFF Facility:[facility] Start: 09-20-2024 Non-patient / Non-visit [facility] Work Phone: Start: 09-16-2024 [...] Department Unsolicited Start: 09-12-2024 Non-patient / [facility]visit [facility] Work Phone: Start: 09-09-2024 End: 09-09-2024 Clinisync Result Encounter Immanuel Yobani DO Work Phone: [facility] Unsolicited Start: 09-09-2024 End: 09-09-2024 Clinisync Result Encounter Immanuel Yobani DO Work Phone: [facility] Unsolicited Start: 09-09-2024 Non-patient / Non-visit [facility] Work Phone: Start: 09-08-2024 End: [...] Department Unsolicited Start: 08-05-2024 Non-patient / Non-visit [facility] Work Phone: Start: 07-20-2024 End: 07-20-2024 Bamboo flowsheet Immanuel Yobani DO Work Phone: [facility] Start: 07-20-2024 End: 07-20-2024 Bamboo flowsheet Immanuel Yobani DO Work Phone: [facility] Start: 07-20-2024 End: 07-20-2024 flow sheet Immanuel Yobani DO Work Phone: [facility] Comment on above: 26 weeks gestation o f ; Diabetes mellitus screening; Second trimester ; PCOS (polycystic ovarian syndrome); resulting from in vitro fertilization, antepartum; Gestational diabetes mellitus (GDM), antepartum, gestational diabetes method of control unspecified; Elevated glucose tolerance test Start: 07-20-2024 End: 07-20-2024 ambulatory IMMANUEL YOBANI Not Available Start: 06-29-2024 Non-patient / Non-visit [facility] Work Phone: Start: 06-22-2024 End: 06-22-2024 Bamboo flowsheet Immanuel Yobani DO Work Phone: [facility] Start: 06-22-2024 End: 06-22-2024 Bamboo flowsheet Immanuel Yobani DO Work Phone: [facility] Start: 06-22-2024 End: 06-22-2024 flow sheet Immanuel Yobani DO Work Phone: [facility] Comment on above: Second trimester pre gnancy; 22 weeks gestation of ; Personal history of cardiac murmur Start: 06-22-2024 End: 06-22-2024 ambulatory IMMANUEL YOBANI Not Available Start: 06-15-2024 End: 06-15-2024 Office consultation new/estab patient 60 min Cele Rodriguez MD Work Phone: [facility] [place] Comment on above: 21 weeks gestation o f (Primary Dx); Chronic hypertension affecting ; In vitro fertilization Start: 06-15-2024 End: 06-15-2024 ambulatory CELE RODRIGUEZ [facility] Start: 05-28-2024 End: 05-30-2024 Clinisync Result Encounter Immanuel Yobani DO Work Phone: [facility] External Department Unsolicited Start: 05-28-2024 End: 05-30-2024 Clinisync Result Encounter Immanuel Yobani DO Work Phone: [facility] Unsolicited Start: 05-27-2024 End: 05-27-2024 Chart abstracting Cele Rodriguze MD Work Phone: [facility] Start: 05-25-2024 End: 05-25-2024 Bamboo flowsheet [...] 04-08-2024 End: 04-08-2024 Clinisync Result Encounter Immanuel Oybani DO Work Phone: [facility] Unsolicited [...] Not Available Start: 01-02-2024 End: 01-02-2024 ambulatory [facility] Work Phone: Start: 01-02-2024 End: 01-02-2024 Patient encounter procedure [facility] Work Phone: Start: [...] Date Procedure Procedure Detail Performing Clinician Start: 09-30-2024 US OB BPP W NON-STRESS Immanuel Yobani DO Work Phone: Start: 09-29-2024 Urnls dip stick/tabl et rgnt [...] stick/tabl et rgnt non-auto w/o micrscp Immanuel Yobnai DO Work Phone: Start: 09-02-2024 US OB [...] Tobacco Screening [facility] Start: 09-29-2024 End: 09-29-2024 Patient encounter procedure [facility] Comment on above: Arrived Start: 09-22-2024 End: 09-22-2025 CULTURE, GROUP B STREP WITH SUSCEPTIBLITY CULTURE, GROUP B STREP WITH SUSCEPTIBLITY Lab Routine Third trimester Expected: 09/22/2024, Expires: 09/22/2025 [facility] Work Phone: Comment on above: Expected: 09/22/2024 , Expires: 09/22/2025 Start: 09-22-2024 End: 09-22-2024 Patient encounter procedure [facility] Comment on above: Arrived Start: 09-20-2024 Urine culture [facility] Start: 09-08-2024 End: 09-08-2025 Alanine aminotransferase [Enzymatic activity/volume] in Serum or Plasma ALT Lab Routine induced hypertension, antepartum Expected: 09/08/2024 (Approximate), Expires: 09/08/2025 [facility] Comment on above: Expected: 09/08/2024 (Approximate), Expires: 09/08/2025 Start: 09-08-2024 End: 09-08-2025 Aspartate aminotransferase [Enzymatic activity/volume] in Serum or Plasma AST Lab Routine induced hypertension, antepartum Expected: 09/08/2024 (Approximate), Expires: 09/08/2025 [facility] Comment on above: Expected: 09/08/2024 (Approximate), Expires: 09/08/2025 Start: 09-08-2024 End: 09-08-2025 CBC W Auto Differential panel - Blood CBC and differential Lab Routine induced hypertension, antepartum Expected: 09/08/2024 (Approximate), Expires: 09/08/2025 [facility] Comment on above: Expected: 09/08/2024 (Approximate), Expires: 09/08/2025 Start: 09-08-2024 End: 09-08-2025 Creatinine [Mass/volume] in Serum or Plasma Creatinine Lab Routine induced hypertension, antepartum Expected: 09/08/2024 (Approximate), Expires: 09/08/2025 [facility] Work Phone: Comment on above: Expected: 09/08/2024 (Approximate), Expires: 09/08/2025 Start: 09-08-2024 End: 09-08-2025 Lactate dehydrogenase [Enzymatic activity/volume] in Serum or Plasma by Lactate to pyruvate reaction Lactate dehydrogenase Lab Routine induced hypertension, antepartum Expected: 09/08/2024, Expires: 09/08/2025 [facility] Comment on above: Expected: 09/08/2024 , Expires: 09/08/2025 Start: 09-08-2024 End: 09-08-2025 Protein, urine, 24 hour Protein, urine, 24 hour Lab Routine induced hypertension, antepartum Expected: 09/08/2024 (Approximate), Expires: 09/08/2025 [facility] Comment on above: Expected: 09/08/2024 (Approximate), Expires: 09/08/2025 Start: 09-08-2024 End: 09-08-2025 Pt and ptt Pt and ptt Lab Routine induced hypertension, antepartum Expected: 09/08/2024, Expires: 09/08/2025 [facility] Comment on above: Expected: 09/08/2024 [...] EST Routine [facility] [address] [place] [id number] Immanuel Hilton DO [address] [place] [address] [facility] Start: 08-27-2024 End: 08-27-2024 Professional / ancillary services management 08/27/2024 11:00 AM EST Ancillary Procedure [facility] [address] [place] [id number] [facility] Start: 08-12-2024 End: 08-12-2025 [...] End: 06-15-2024 Patient encounter procedure [facility] Start: 05-25-2024 End: 11-23-2024 Alpha fetoprotein, maternal Alpha fetoprotein, maternal Lab Routine Second trimester Expected: 05/25/2024 (Approximate), Expires: 11/23/2024 [facility] Comment on above: Expected: 05/25/2024 (Approximate), Expires: 11/23/2024 Start: 05-25-2024 End: 05-25-2024 Patient encounter procedure [facility] Comment on above: Arrived Start: 05-05-2024 End: 05-05-2024 Professional / ancillary services management 05/05/2024 2:30 PM EDT Ancillary Procedure [facility] [address] [place] [id number] [facility] Start: 04-27-2024 End: 04-27-2025 US Pelvis transvaginal US OB transvaginal Imaging Routine Encounter for screening for cervical length Expected: 04/27/2024 (Approximate), Expires: 04/27/2025 [facility] Work Phone: Comment on above: Expected: 04/27/2024 (Approximate), Expires: 04/27/2025 Start: 04-27-2024 End: 04-27-2024 Patient encounter procedure 04/27/2024 10:20 AM EDT Routine [facility] [address] [place] [phone] Immanuel Hilton, DO [address] [place] [address] [facility] Start: 03-29-2024 COVID-19 Vaccine ( season) COVID-19 Vaccine ( season) [facility] Start: 03-29-2024 Influenza vaccination [facility] Start: 03-27-2024 End: 03-27-2025 ABO/Rh ABO/Rh Lab Routine Missed menses Expected: 03/27/2024 (Approximate), Expires: 03/27/2025 [facility] Comment on above: Expected: 03/27/2024 (Approximate), Expires: 03/27/2025 Start: 03-27-2024 End: 03-27-2025 Blood type and Indirect antibody screen panel - Blood Type and screen Lab Routine Missed menses Expected: 03/27/2024 (Approximate), Expires: 03/27/2025 [facility] Work Phone: Comment on above: Expected: 03/27/2024 (Approximate), Expires: 03/27/2025 Start: 03-27-2024 End: 03-27-2025 US Pelvis transvaginal US OB transvaginal Imaging Routine Missed menses Expected: 03/27/2024 (Approximate), Expires: 03/27/2025 [facility] Comment on above: Expected: 03/27/2024 (Approximate), Expires: 03/27/2025 Start: 2020 Screening for malign ant neoplasm of cervix Pap Smear [facility] Start: 2018 DTaP,Tdap and Td Vac cines (1 - Tdap) DTaP,Tdap and Td Vaccines (1 - Tdap) [facility] Start: 2017 Adult BMI Screening Adult BMI Screen ing [facility] Start: 2011 Depression Screening Depression Scre ening [facility] Start: 2011 Tobacco Screening Tobacco Screening [facility] Start: 1999 Screening for Chlamy leoncio trachomatis Chlamydia Screening [facility] Bacteria identified in Urine by Culture Urine culture Microbiology Routine Missed menses Ordered: 03/27/2024 [facility] Comment on above: Ordered: 03/27/2024 CBC W Auto Different ial panel - Blood CBC and differential Lab Routine Missed menses Ordered: 03/27/2024 [facility] Comment on above: Ordered: 03/27/2024 CHLAMYDIA TRACHOMATI S (GENITO/STI) CHLAMYDIA TRACHOMATIS (GENITO/STI) Lab Routine STD exposure Ordered: 05/25/2024 [facility] Comment on above: Ordered: 05/25/2024 Cytology Cervical or vaginal smear or scraping study Pap Smear Pathology and Cytology Routine Well woman exam with routine gynecological exam Ordered: 05/25/2024 [facility] Work Phone: Comment on above: Ordered: 05/25/2024 Hemoglobin A1c/Hemoglobin.total in Blood Hemoglobin A1c Lab Routine Missed menses Ordered: 03/27/2024 [facility] Comment on above: Ordered: 03/27/2024 Hepatitis B virus love rface Ag [Presence] in Serum or Plasma by Immunoassay Hepatitis B surface antigen Lab Routine Missed menses Ordered: 03/27/2024 [facility] Comment on above: Ordered: 03/27/2024 Hepatitis C virus Ab [Presence] in Serum or Plasma by Immunoassay Hepatitis C antibody Lab Routine Missed menses Ordered: 03/27/2024 [facility] Comment on above: Ordered: 03/27/2024 HIV-1/HIV-2 antigen/antibody combination immunoassay HIV-1 and HIV-2 antibodies Lab Routine Missed menses Ordered: 03/27/2024 [facility] Comment on above: Ordered: 03/27/2024 Neisseria gonorrhoea e DNA [Presence] in Unspecified specimen by BUCK with probe detection Neisseria gonorrhea DNA probe, direct Lab Routine STD exposure Ordered: 05/25/2024 [facility] Comment on above: Ordered: 05/25/2024 Reagin Ab [Presence] in Serum by RPR RPR Lab Routine Missed menses Ordered: 03/27/2024 [facility] Comment on above: Ordered: 03/27/2024 Rubella antibody, IgG Rubella an tibody, IgG Lab Routine Missed menses Ordered: 03/27/2024 [facility] Comment on above: Ordered: 03/27/2024 SURESWAB(R) ADVANCED VAGINITIS PLUS, TMA SURESWAB(R) ADVANCED VAGINITIS PLUS, TMA Pathology and Cytology Routine Vaginal discharge Ordered: 05/25/2024 [facility] Comment on above: Ordered: 05/25/2024 Payers Date Payer Category Payer Self-pay 2023 [employer] - [employer] [id number] 2023 [facility] [id number] 2023 Unknown [id number] 2021 Private Health Insurance [id number] 2021 Unknown [id number] 1.13.693.2. [id number] 2021 Unknown [id number] 1999 Unknown [id number] 2.16.840.1.632815.3.579.2. 593 1999 Unknown [id number] 2.16.840.1.159636.3.579.2. 593 1999 Unknown [id number] 2.16.840.1.216084.3.579.2. 593 1999 Unknown [id number] 2.16.840.1.389029.3.579.2. 593 1999 Unknown [id number] 2.16.840.1.272225.3.579.2. 593 1999 Unknown [id number] 2.16.840.1.541200.3.579.2. 593 1999 Unknown [id number] 2.16.840.1.236417.3.579.2. 593 1999 Unknown [id number] 2.16.840.1.818167.3.579.2. 1286 1999 Unknown [id number] 2.16.840.1.377301.3.579.2. 1286 1999 Unknown [id number] 2.16.840.1.253577.3.579.2. 1259 1999 Unknown [id number] 2.16.840.1.531292.3.579.2. 1259 1999 Unknown [id number] 2.16.840.1.897210.3.579.2. 1259 1999 Unknown [id number] 2.16.840.1.337350.3.579.2. 1259 1999 Unknown [id number] 2.16.840.1.142913.3.579.2. 1259 1999 Unknown [id number] 2.16.840.1.014158.3.579.2. 1259 1999 Unknown [id number] 2.16.840.1.695896.3.579.2. 9 1999 Unknown [id number] 2.16.840.1.062696.3.579.2. 9 1999 Unknown [id number] 2.16.840.1.355849.3.579.2. 9 1999 Unknown [id number] 2.16.840.1.722317.3.579.2. 9 1999 Unknown [id number] 2.16.840.1.187608.3.579.2. 9 1999 Unknown [id number] 2.16.840.1.587836.3.579.2. 9 1999 Unknown [id number] 2.16.840.1.982265.3.579.2. 1259 1959 Private Health Insurance [id number] 1959 Unknown [id number] Unknown [id number] 2.16.840.1.481596.3.579.2. 531 Social History Date Type Detail Facility Tobacco smoking stat [facility] Unknown if ever smoked [facility] Work Phone: Start: 2000 Sex Assigned At Female F [facility] Start: 01-02-2024 End: 05-27-2024 Tobacco smoking status SDIS Never smoked tobacco [facility] Start: 01-02-2024 [...] 06-15-2024 Alcoholic beverage intake Lifetime non-drinker (finding) [facility] Start: 1999 Sex assigned at Not on file [facility] Start: 05-26-2024 End: 09-22-2024 Sex Female (finding) [employer] [facility] Tobacco smoking stat [facility] Unknown if ever smoked [facility] Work Phone: Medical Equipment Procedure Code Equipment Code Equipment Origin al Text Equipment Identifier Dates 1 strip by In Vi tro route Daily Use in the morning prior to breakfast, 1 hour after each meal for a total of 4times daily. [id number] Start: 07-20-2024 End: 08-19-2024 1 each by In Vit ro route Daily Use to check FSBS four times daily [id number] Start: 07-20-2024 End: 08-19-2024 Goals Date Patient Goal Desired Activity /State Personal health goal Clinical Notes 03-27-2024 to 09-29-2024 Esperanza Peter [facility] - 09/29/2024 11:20 AM Donell Tracy [facility] - 09/22/2024 9:20 AM Donell Tracy, [facility] - 09/08/2024 8:30 AM Gautam Peter, [facility] - 08/27/2024 11:40 AM EST Note Date [...] a total of 4times daily. Continuous Glucose Resolution Agent (FreeStyle Jenise 3 Vanduser) device 1 each, Does not apply, Every 14 days Continuous Glucose Sensor (FreeStyle Jenise 3 Sensor) misc 1 each, Does not apply, Every 14 days labetalol (NORMODYNE) 100 mg, Oral, 2 times daily Multiple Vitamin (multivitamin) tablet 1 tablet, Daily ondansetron (ZOFRAN) 4 mg, Every 8 hours PRN ALLERGIES Allergies Allergen Reactions L[place]on Flavor [L[place]on Oil] Latex Hives, Itching, Rash and Swelling [...] nursing note reviewed. Exam conducted with a hub lead present. Vitals: Estimated body mass index is [...] Immanuel Hilton DO documented in this encounter [facility] 09-22-2024 History of Present illness [...] a total of 4times daily. Continuous Glucose Resolution Agent (FreeStyle Jenise 3 Vanduser) device 1 each, Does not apply, Every 14 days Continuous Glucose Sensor (FreeStyle Jenise 3 Sensor) misc 1 each, Does not apply, Every 14 days labetalol (NORMODYNE) 100 mg, Oral, 2 times daily Multiple Vitamin (multivitamin) tablet 1 tablet, Daily ondansetron (ZOFRAN) 4 mg, Every 8 hours PRN ALLERGIES Allergies Allergen Reactions [place] Flavor [[place] Oil] Latex Hives, Itching, Rash and Swelling [...] nursing note reviewed. Exam conducted with a hub lead present. Vitals: Estimated body mass index is [...] Immanuel Hilton DO documented in this encounter [facility] 09-08-2024 History of Present illness [...] a total of 4times daily. Continuous Glucose Resolution Agent (FreeStyle Jenise 3 Vanduser) device 1 each, Does not apply, Every 14 days Continuous Glucose Sensor (FreeStyle Jenise 3 Sensor) misc 1 each, Does not apply, Every 14 days Multiple Vitamin (multivitamin) tablet 1 tablet, Daily terconazole (Terazol 7) 0.4 % vaginal cream 1 applicator, Vaginal, Nightly ALLERGIES Allergies Allergen Reactions L[place]on Flavor [L[place] Oil] Latex Hives, Itching, Rash and Swelling [...] nursing note reviewed. Exam conducted with a hub lead present. Vitals: Estimated body mass index is [...] Immanuel Hilton DO documented in this encounter [facility] 08-27-2024 History of Present illness [...] a total of 4times daily. Continuous Glucose Resolution Agent (FreeStyle Jenise 3 Vanduser) device 1 each, Does not apply, Every 14 days Continuous Glucose Sensor (FreeStyle Jenise 3 Sensor) misc 1 each, Does not apply, Every 14 days metroNIDAZOLE (FLAGYL) 500 mg, Oral, 2 times daily, Do not drink alcohol while taking this medication Multiple Vitamin (multivitamin) tablet 1 tablet, Daily ALLERGIES Allergies Allergen Reactions L[place] Flavor [[place] Oil] Latex Hives, Itching, Rash and Swelling [...] nursing note reviewed. Exam conducted with a hub lead present. Vitals: Estimated body mass index is [...] from yesterday. Patients insurance did finally approve [employer] and patient is waiting for monitor [...] Immanuel Hilton DO documented in this encounter [facility] 08-12-2024 History of Present illness [...] 1 tablet, Daily ALLERGIES Allergies Allergen Reactions L[place]on Flavor [L[place]on Oil] Latex Hives, Itching, Rash and Swelling [...] nursing note reviewed. Exam conducted with a hub lead present. Vitals: Estimated body mass index is [...] Immanuel Hilton DO documented in this encounter [facility] 07-20-2024 History of Present illness [...] mg, Oral, Daily ALLERGIES Allergies Allergen Reactions Loudon Flavor [L[place]on Oil] Latex Hives, Itching, Rash and Swelling [...] Immanuel Hilton DO documented in this encounter [facility] 06-22-2024 History of Present illness [...] mg, Oral, Daily ALLERGIES Allergies Allergen Reactions L[place]on Flavor [L[place]on Oil] Latex Hives, Itching, Rash and Swelling [...] Immanuel Hilton DO documented in this encounter [facility] 06-15-2024 History of Present illness [...] Allergies: Allergies Allergen Reactions Latex, Natural Rubber [place] Meds: Prior to Admission medications Medication Sig [...] other morbidities. Based on the available evidence, [facility] recommends treatment with antihypertensive therapy [...] preeclampsia prevention as is recommended by the [place] [employer]ne[employer] Committee Opinion No. 743. [...] Cele Rodriguez MD, FACOG (she/hers) [facility] [address] [place] [address] This document was created with [employer] technology. Though I make every effort to review the dictation as it is transcribed, on occasion the spoken word can be misinterpreted by the technology leading to inappropriate words, phrases, or sentences. This note is addressed to the requesting provider as a consultation for clinical guidance. Specific medical abbreviations are occasionally used and those are generally approved by the [place]?Board of?Obstetrics and?Gynecology?as well as?Kenzie croft abbreviations. The above plan of care was based solely on the diagnoses for which a consultation was requested. ?More frequent testing may be indicated based on her other medical/obstetrical conditions. The management of other or medical conditions is beyond the scope of requested consultation and will continue to be followed by the primary healthcare market consultant or primary care provider. Note to patient: [...] IVF Have you been seen here at [facility] in a previous ? N/a Recent ER visits or hospitalizations? no Bring blood sugar log or meter with you today? (Please bring them with you for every visit at [facility]) no Flu vaccine (May-September)? no Any concerns that you would like me to mention to the provider today? no documented in this encounter [facility] 05-25-2024 History of Present illness Narrative Reason [...] mg, Oral, Daily ALLERGIES Allergies Allergen Reactions Loudon Flavor [Loudon Oil] Latex Hives, Itching, Rash and Swelling [...] nursing note reviewed. Exam conducted with a hub lead present. Vitals: Estimated body mass index is [...] Immanuel Hilton DO documented in this encounter [facility] 04-27-2024 History of Present illness [...] mg, Oral, Daily ALLERGIES Allergies Allergen Reactions Loudon Flavor [Loudon Oil] Latex Hives, Itching, Rash and Swelling [...] nursing note reviewed. Exam conducted with a hub lead present. Vitals: Estimated body mass index is [...] IVF . Patient to also have [facility] referral for IVF and Level II ultrasound. [...] or undercooked meat, and stay away from [facility]. Patient has been consulted regarding any further do's and don'ts of . Patient voiced understanding and all questions and concerns were answered. Orders Placed This Encounter Procedures POCT urinalysis dipstick manually resulted Follow Up: Patient is to return in 4 weeks for routine OB appointment. Documented by Esperanza Peter LPN on behalf of: Immanuel Hilton DO documented in this encounter [facility] 03-27-2024 History of Present illness [...] Procedure Laterality Date TONSILLECTOMY Allergies Allergen Reactions Loudon Flavor [Loudon Oil] Latex Hives, Itching, Rash and Swelling [...] or undercooked meat, and stay away from [facility]. Patient has also been advised to not [...] Evaluation note No assessment inform ation available [facility] Work Phone: Evaluation note Diagnosis Well woman exam with routine gynecological exam Routine gynecological examination Second trimester state, incidental Vaginal discharge Leukorrhea, not specified as infective STD exposure documented [facility] Diagnosis Second trimester state, incidental 22 weeks gestation of Personal history of cardiac murmur Personal history of other diseases of circulatory system documented in this encounter [facility]* Diagnosis Missed menses documented in this [facility] Diagnosis 14 weeks gestation of Second trimester state, incidental Encounter for screening for cervical length documented in this encounter [facility]* Diagnosis 26 weeks gestation of Diabetes mellitus screening Screening for diabetes mellitus Second trimester state, incidental PCOS (polycystic ovarian syndrome) Polycystic ovaries resulting from in vitro fertilization, antepartum Gestational diabetes mellitus (GDM), antepartum, gestational diabetes method of control unspecified Elevated glucose tolerance test Impaired glucose tolerance test documented in this encounter [facility]* Diagnosis 29 weeks gestation of Third trimester state, incidental Gestational diabetes mellitus (GDM), antepartum, gestational diabetes method of control unspecified Encounter for in vitro fertilization Encounter for assisted reproductive fertility procedure cycle documented in this encounter [facility]* Diagnosis Third trimester state, incidental 32 weeks gestation of documented in this encounter [facility]* Diagnosis Third trimester state, incidental 33 weeks gestation of induced hypertension, antepartum Transient hypertension of , antepartum documented in this encounter [facility]* Diagnosis 21 weeks gestation of - Primary Chronic hypertension affecting In vitro fertilization Encounter for assisted reproductive fertility procedure cycle [facility] Diagnosis 35 weeks gestation of Third trimester state, incidental documented [facility] this [facility]* Diagnosis 36 weeks gestation of Third trimester state, incidental documented in this encounter [facility] HealthcareInstructionsNot on filedocumented in this encounter[facility] SystemInstructionsNot on filedocumented in this encounter[facility] SystemInstructions* Attachments The following attachments cannot be sent through Care Everywhere. * Preeclampsia (Hungarian) [facility] Purpose Family History No Family [...] content) DATE CREATED AUTHOR 03/06/2019 [facility] DATE CREATED AUTHOR AUTHOR'S ORGANIZ ATION 12/21/2021 [facility] DATE CREATED AUTHOR AUTHOR'S ORGANIZ ATION 12/01/2022 [facility] [place] [facility] DATE CREATED AUTHOR AUTHOR'S ORGANIZ ATION 06/17/2024 [facility] DATE CREATED AUTHOR AUTHOR'S ORGANIZ ATION 09/25/2024 [facility] DATE CREATED AUTHOR AUTHOR'S ORGANIZ ATION 10/01/2024 [facility] EPIC Care Teams (unrecognized sec tion and content) Team Status: Active Member Role Status Dates Damon Stover DO Primary Care Provider Active Team Status: Inactive Member Role Status Dates Damon Stover DO Primary Care Provider Active Start: January 02, 2024 End: January 02, 2024 Teresa Sanchez APRN Attending Provider Active S tart: January 02, 2024 End: January 02, 2024 Fur Floor Worker Relationship Specialty Start Date End Date Akila Grant MD [address] [place] [address] PCP - General Family Medicine 11/27/23 Fur Floor Worker Relationship Specialty Start Date End Date Akila Grant MD [address] [place] [address] PCP - General Family Medicine 11/27/23 Fur Floor Worker Relationship Specialty Start Date End Date Akila Grant MD [address] [place] [address] PCP - General Family Medicine 11/27/23 Fur Floor Worker Relationship Specialty Start Date End Date Akila Grant MD [address] [facility] [place] [address] PCP - General Family Medicine 11/27/23 Fur Floor Worker Relationship Specialty Start Date End Date Akila Grant MD [address] [facility] [place] [address] PCP - General Family Medicine 11/27/23 Fur Floor Worker Relationship Specialty Start Date End Date Akila Grant MD [address] [facility] [place] [address] PCP - General Family Medicine 11/27/23 Fur Floor Worker Relationship Specialty Start Date End Date Akila Grant MD [address] [place] [address] PCP - General Family Medicine 11/27/23 Fur Floor Worker Relationship Specialty Start Date End Date Akila Grant MD [address] [facility] [place] [address] PCP - General Family Medicine 11/27/23 Fur Floor Worker Relationship Specialty Start Date End Date Akila Grant MD [address] [facility] [place] [address] PCP - General Family Medicine 11/27/23 Fur Floor Worker Relationship Specialty Start Date End Date Akila Grant MD [address] [facility] [place] [address] PCP - General Family Medicine 11/27/23 Fur Floor Worker Relationship Specialty Start Date End Date Akila Grant MD [address] [facility] [place] [address] PCP - General Family Medicine 11/27/23 Fur Floor Worker Relationship Specialty Start Date End Date Akila Grant MD [address] [facility] [place] [phone] PCP - General Family Medicine 11/27/23 Fur Floor Worker Relationship Specialty Start Date End Date Akila Grant MD [address] [facility] [place] [address] PCP - General Family Medicine 11/27/23 Fur Floor Worker Relationship Specialty Start Date End Date Akila Grant MD [address] [facility] [place] [address] PCP - General Family Medicine 11/27/23 Fur Floor Worker Relationship Specialty Start Date End Date Akila Grant MD [address] [facility] [address] PCP - General Family Medicine 11/27/23 Fur Floor Worker Relationship Specialty Start Date End Date Akila Grant MD [address] [facility] [place] [address] PCP - General Family Medicine 11/27/23 Team [...] Stover , Primary Care Provider Active Start: September 09, 2024 Immanuel Hilton , Attending Provider Active Start : September 09, 2024 Team Status: Active Member Role Status Dates Damon S Ck , Primary Care Provider Active Start: September 12, 2024 Immanuel Hilton , Attending Provider Active Start : September 12, 2024 Team Status: Active Member Role Status Dates Damon Stover , Primary Care Provider Active Start: September 20, 2024 Akila Grant MD Attending Provider Active St art: September 20, 2024 Fur Floor Worker Relationship Specialty Start Date End Date Akila Grant MD [address] [place] [phone] PCP - General Family Medicine 11/27/23 Fur Floor Worker Relationship Specialty Start Date End Date Akila Grant MD [address] [place] [phone] PCP - General Family Medicine 11/27/23 Goals [...] BE BASED ON THE PRIMARY CLINICAL RECORDS. [employer] provides no warranty or guarantee of the accuracy or completeness of information in this document.
[2024-10-01 06:50] LABS: Hematocrit 33.8 % (36.0-48.0); Hemoglobin 10.9 g/dL (12.0-16.0); Mean Corpuscular HGB Conc 32.2 g/dL (29.9-35.2); Mean Corpuscular Hemoglobin 26.9 pg (26.7-34.0); Mean Corpuscular Volume 83.5 fL (81.0-99.0); Mean Platelet Volume 11.8 fL (9.5-13.5); Platelet Count 367 10^3/uL (150-450); Red Blood Count 4.05 10^6/uL (4.20-5.40); White Blood Count 7.7 10^3/uL (4.0-11.0)
[2024-10-01] MEDS: 0.9 % SODIUM CHLORIDE 1,000 ML 125 ML IV ×2 (07:00→13:28)
[2024-10-01] MEDS: OXYTOCIN/0.9 % SODIUM CHLORIDE 10 UNITS/500 ML PLAST..BAG 6 UNIT IV (07:00)
[2024-10-01 07:05] LABS: Amphetamine Screen Urine NEGATIVE (NEGATIVE); Barbiturates Screen Urine NEGATIVE (NEGATIVE); Benzodiazepines Screen Urine NEGATIVE (NEGATIVE); Buprenorphine Screen Urine NEGATIVE (NEGATIVE); Cannabinoid Screen Urine NEGATIVE (NEGATIVE); Cocaine Screen Urine NEGATIVE (NEGATIVE); Methadone Screen Urine NEGATIVE (NEGATIVE); Methamphetamines Screen Urine NEGATIVE (NEGATIVE); Opiate Screen Urine NEGATIVE (NEGATIVE); Oxycodone Screen Urine NEGATIVE (NEGATIVE); Phencyclidine Screen Urine NEGATIVE (NEGATIVE); Tricyclic Antidepressant Urine NEGATIVE (NEGATIVE)
[2024-10-01 10:02] LABS: Glucometer 83 mg/dL (74-106)
[2024-10-01] MEDS: 0.9 % SODIUM CHLORIDE 1,000 ML 1000 ML IV (11:15)
[2024-10-01] MEDS: ROPIVACAINE HCL/PF 400 MG/200 ML PREMIX 10 MG EPIDURAL (11:22)
[2024-10-01 12:13] LABS: Glucometer 67 mg/dL (74-106)
[2024-10-01 13:02] LABS: Glucometer 66 mg/dL (74-106)
[2024-10-01 14:19] LABS: Glucometer 74 mg/dL (74-106)
[2024-10-01 14:48] LABS: Glucometer 71 mg/dL (74-106)
[2024-10-01 15:59] LABS: Glucometer 71 mg/dL (74-106)
[2024-10-01 16:54] LABS: Glucometer 89 mg/dL (74-106)
[2024-10-01] MEDS: CITRIC ACID/SODIUM CITRATE 30 ML SOLUTION ORACIT SHOHL'S SOLN PO (17:30)
[2024-10-01] MEDS: FAMOTIDINE/PF 20 MG/2 ML VIAL IV (17:30)
[2024-10-01] MEDS: METOCLOPRAMIDE HCL 10 MG/2 ML VIAL IVP (17:30)
[2024-10-01] MEDS: CEFAZOLIN SODIUM/DEXTROSE,ISO 2 GM/50 ML PIGGYBACK IV (17:40)
[2024-10-01] MEDS: LACTATED RINGER'S SOLUTION 1,000 ML 50 ML IV (18:02)
[2024-10-01] MEDS: OXYTOCIN/0.9 % SODIUM CHLORIDE 20 UNITS/1,000 ML PLAST..BAG 125 UNIT IV (18:06)
--- NOTE | 2024-10-01 18:28 | P.ON_ITS ---
Brief Operative Note Date of procedure: 10/01/24 Pre-op diagnosis general: iup at 37wks, non reassuring heart tones, ivf, gdma2, mild preeclampsia Post-op diagnosis: same as pre-op Procedure: NAME OF PROCEDURE: [ section ] PROCEDURE: Patient was taken back to the Operating Room where she was given a spinal anesthesia with Duramorph without difficulty. She was prepped and draped in the normal sterile fashion. A Pfannenstiel skin incision was then made 2 cm above the symphysis pubis and carried down to underlying rectus fascia using a Bovie. The fascia was incised in the midline and extended laterally using Sabillon scissors. Two Joe clamps were placed on the superior aspect of the fascia and dissected off the underlying rectus muscles. The same was performed on the inferior aspect as well. The muscles were then in the midline. Peritoneum was identified and entered bluntly. The peritoneum was then extended superiorly and inferiorly with good visualization of the bladder. The bladder blade was inserted. A low transverse incision was made on the patient's uterus and extended laterally digitally. The was then delivered atraumatically after the bladder blade was removed in the cephalic position. The cord was clamped and cut. Cord blood was obtained. The infant was handed off to awaiting team. The patient's placenta was spontaneously delivered. The uterus was then exteriorized. The uterus was cleared of all clots and debris. The bladder blade was reinserted. The patient's uterine incision was closed using #0 Vicryl in a running lock fashion. Excellent hemostasis was assured. The uterus was then returned to the patient's abdomen. The patient's abdomen was copiously irrigated using warm saline. Peritoneal gutters were cleared of all clots and debris. Again excellent hemostasis was assured. The patient's peritoneum was closed using 3-0 Vicryl in a running fashion. The patient's fascia was closed using #0 Vicryl in a running fashion. The patient's skin was closed using 4-0 Vicryl subcuticularly. The patient tolerated the procedure well. Sponge, lap, and needle counts were correct x2. The patient was taken to the Recovery Room in stable condition. Anesthesia: spinal Surgeon: Immanuel Hilton Fence Erector Supervisor: Claritza Corea Estimated blood loss (mL): 575 Pathology: other (placenta) Condition: stable Disposition: PACU Urinary Catheter Management Urinary Catheter Management Urethral: Cath placed during this visit: no
--- NOTE | 2024-10-01 18:29 | P.OBPRC_ITS ---
Procedure Pre-op/Post-op diagnoses: Pre-Op/Post-Op Diagnoses Operation Date: 10/01/24 17:30 <No data on this case meets the specified criteria> Procedure: Procedures Operation Date: 10/01/24 17:30 Actual Procedure Side Surgeon p with delivery of viable baby boy Not Applicable Immanuel Hilton DO Store Specialist: Claritza Corea Estimated blood loss (mL): 575 Disposition: floor Anesthesia type: Spinal
[2024-10-01] MEDS: KETOROLAC TROMETHAMINE 30 MG/ML VIAL IVP (21:07)
[2024-10-01] MEDS: NALBUPHINE HCL 10 MG/ML AMPULE IV (21:08)
[2024-10-01] MEDS: ONDANSETRON PF 4 MG/2 ML VIAL IV (23:20)
[2024-10-02] VITALS (8 sets, daily range): BP systolic 131–147; BP diastolic 77–99; PULSE 85–100; TEMP 36.6–36.7
[2024-10-02] MEDS: CEFAZOLIN SODIUM/DEXTROSE,ISO 2 GM/50 ML PIGGYBACK IV (02:17)
[2024-10-02] MEDS: KETOROLAC TROMETHAMINE 30 MG/ML VIAL IVP ×2 (03:26→12:33)
[2024-10-02] MEDS: ENOXAPARIN SODIUM 40 MG/0.4 ML SYRINGE SUBQ (06:08)
[2024-10-02] MEDS: NALBUPHINE HCL 10 MG/ML AMPULE IV (06:16)
[2024-10-02 06:37] LABS: Basophils Percent Auto 0.2 % (0.2-2.0); Eosinophils Percent Auto 0.2 % (0.9-7.0); Hematocrit 25.6 % (36.0-48.0); Hemoglobin 8.1 g/dL (12.0-16.0); Immature Granulocytes Abs Auto 0.05 10^3/uL (0.00-0.03); Immature Granulocytes Pct Auto 0.5 % (0.0-0.5); Lymphocytes Absolute Auto 1.7 10^3/uL (1.2-3.8); Lymphocytes Percent Auto 15.5 % (20.5-60.0); Mean Corpuscular HGB Conc 31.6 g/dL (29.9-35.2); Mean Corpuscular Hemoglobin 26.6 pg (26.7-34.0); Mean Corpuscular Volume 84.2 fL (81.0-99.0); Mean Platelet Volume 10.4 fL (9.5-13.5); Monocytes Absolute Auto 0.7 10^3/uL (0.3-0.8); Monocytes Percent Auto 6.3 % (1.7-12.0); Neutrophils Absolute Auto 8.5 10^3/uL (1.4-6.5); Neutrophils Percent Auto 77.3 % (43.0-75.0); Platelet Count 302 10^3/uL (150-450); Red Blood Count 3.04 10^6/uL (4.20-5.40); Red Cell Distribution Width 14.1 % (11.0-15.0); White Blood Count 10.9 10^3/uL (4.0-11.0)
[2024-10-02 08:01] LABS: Glucometer 87 mg/dL (74-106)
[2024-10-02] MEDS: ACETAMINOPHEN 500 MG TABLET 1000 MG PO ×2 (08:01→16:48)
[2024-10-02] MEDS: DOCUSATE SODIUM 100 MG CAPSULE PO ×2 (08:02→20:55)
--- NOTE | 2024-10-02 08:46 | PM.OBPN ---
OB - PN: Subj Subjective Patient comments: no complaints and pain well controlled [place] status: doing well Exam Constitutional Vital Signs, click to edit/add: Last Vital Signs Temp 98.1 F 10/02/24 03:50 Pulse 93 H 10/02/24 08:01 Resp 16 10/02/24 03:50 BP 146/89 H 10/02/24 08:01 Pulse Ox 100 10/01/24 19:30 O2 Del Method Room Air 10/02/24 03:50 Documenting provider has reviewed patient's vital signs: yes Common normals: no apparent distress Respiratory Common normals: clear to auscultation bilaterally Cardio Common normals: regular rate and regular rhythm GI Common normals: Normal to inspection, nondistended, normoactive bowel sounds present Extremity Common normals: no clubbing, cyanosis or edema and no calf tenderness Results Labs Labs: Short CBC 10/02/24 Range/Units 06:27 WBC 10.9 (4.0-11.0) 10^3/uL Hgb 8.1 L (12.0-16.0) g/dL Hct 25.6 L (36.0-48.0) % Plt Count 302 (150-450) 10^3/uL Urinary Catheter Management Urinary Catheter Management Urethral: Cath placed during this visit: yes, but has since been removed by the nurse Removal date: 10/02/24 Removal time: 03:15 OB - PN: A/P Plan - day: 1 Plan: routine postop care Time Spent with Patient Time: Total time spent is greater than 50% in coordination of care (as documented) at patient's floor/unit and/or counseling patient: Total time spent with greater than 50% in coordination of care (as documented) at patient's floor/unit and/or counseling patient: less than 15 minutes
--- NOTE | 2024-10-02 16:39 | PC.NURSE ---
Amy attended Breast feeding class prior to delivery. Reviewed late infant as discussed previously. Aware to continue offering breast frequently, skin to skin as well as early initiation of pumping. Verbalized understanding. Pt using shield for latching as is easier for baby. No further questions at this time.
[2024-10-02] MEDS: IBUPROFEN 400 MG TABLET 800 MG PO (20:55)
[2024-10-03] VITALS (7 sets, daily range): BP systolic 133–140; BP diastolic 74–78; PULSE 74–90; TEMP 36.6–36.9; O2SAT 100
[2024-10-03] MEDS: IBUPROFEN 400 MG TABLET 800 MG PO ×3 (04:40→22:35)
[2024-10-03] MEDS: ACETAMINOPHEN 500 MG TABLET 1000 MG PO ×4 (06:23→22:35)
[2024-10-03] MEDS: ENOXAPARIN SODIUM 40 MG/0.4 ML SYRINGE SUBQ (06:24)
[2024-10-03] MEDS: DOCUSATE SODIUM 100 MG CAPSULE PO ×2 (09:19→22:36)
--- NOTE | 2024-10-03 10:39 | PM.OBDS ---
DS: Providers Provider Date of admission: 10/01/24 05:00 Primary care physician: Kayce Pham MD Admitting clinician: Immanuel Hilton Attending physician on discharge: Nahed Guo Anticipated date of discharge: 10/03/24 DS: Diagnosis Discharge Diagnosis (1) Previous section: Assessment and plan: REQUESTING DISCHARGE, BREAST FEEDING, FEELS WELL, HEMOGLOBIN 8 PLUS BUT ASYMPTOMATIC, PERFORMING ADL'S NORMALLY, AMBULATING AND EATING, VOICING NO COMPLAINTS Plan DISCHARGE HOME OB - DS: Summary Hospital Course Hospital Course: UNCOMPLICATED Time spent discussing smoking cessation with patient: 3 to 10 minutes Peripartum Data - Procedures: Procedures Operation Date: 10/01/24 17:30 Actual Procedure Side Surgeon p with delivery of viable baby boy Not Applicable Immanuel Hilton DO Peripartum Data - Vaginal Delivery Procedures: Procedures Operation Date: 10/01/24 17:30 Actual Procedure Side Surgeon p with delivery of viable baby boy Not Applicable Immanuel Hilton DO Complications complications: none Infant Delivery method: section Gender: male Discharge plan: home Status at Discharge Cognitive/behavioral status at discharge: WNL Functional status at discharge: independent ambulation Overall status at discharge: patient is progressing back to baseline Time Spent with Patient Time attestation: Total time spent providing and/or coordinating discharge services: Time spent: less than 30 minutes Exam Narrative Exam Narrative: REQUESTING DISCHARGE, VOICING NO COMPLAINTS Constitutional Vital Signs, click to edit/add: Last Vital Signs Temp 97.8 F 10/03/24 00:00 Pulse 82 10/03/24 09:17 Resp 14 10/02/24 16:40 BP 140/78 10/03/24 09:17 Pulse Ox 100 10/01/24 19:30 O2 Del Method Room Air 10/03/24 00:00 Documenting provider has reviewed patient's vital signs: yes Common normals: no apparent distress and oriented x3 HENMT Common normals: normocephalic Head and scalp: normocephalic Eye Common normals: PERRL Pupil: accommodation reflex normal Neck & C-Spine Common normals: full ROM and supple Respiratory Common normals: normal respiratory effort Auscultation: clear to auscultation bilaterally Cardio Common normals: regular rate and regular rhythm GI Common normals: Normal to inspection, nondistended, normoactive bowel sounds present, soft to palpation and non-tender Common normals: no CVA tenderness Back & Pelvis Common normals: no thoracic nor lumbar tenderness Extremity Common normals: normal to inspection, full ROM and no calf tenderness Neuro Common normals: oriented x3, CN's II-XII intact bilaterally, moves all extremities, no focal motor deficits and no sensory deficits noted Motor exam: strength 5/5 throughout Psych Common normals: mental status grossly normal, thought process normal, cooperative, affect normal, speech normal and activity/motor behavior normal Discharge Plan Discharge Disposition: Home, Self-Care Condition: Good Assessment: CLINICAL EXAM NONFOCAL, PERFORMING ADL'S, EATING AND ELIMINATING NORMALLY, BREAST FEEDING, VOICING NO COMPLAINT Plan of Treatment: DISCHARGE HOME Discharge Medications: Continued amoxicillin 500 mg capsule 500 mg PO Q12H ciprofloxacin HCl 0.2 % dropperette 5 drp otic (ear) BID 7 Days Qty: 14 0RF Rx Instructions: for the right ear please we can use ophthalmic 0.3 % solution if not available Activity: increase activity as tolerated Activity Detail: NO SEX SIX WEEKS, MAY CLIMB STAIRS, NO BATHTUB, MAY SHOWER, NO CAR FOR 4 WEEKS, GENERAL COVID AND RSV PRECAUTIONS, WALKING ONLY EXERCISE FOR 6 WEEKS Diet: regular diet Print Language: Lithuanian Patient Instructions: (DC) Forms: Portal Instructions Follow Up Appointments: INCISION CHECK IN ONE WEEK, BABY TO SEE PEDS WITHIN ONE WEEK Discharge location: HOME
[2024-10-04] MEDS: ENOXAPARIN SODIUM 40 MG/0.4 ML SYRINGE SUBQ (06:28)
[2024-10-04] MEDS: ACETAMINOPHEN 500 MG TABLET 1000 MG PO ×2 (06:31→16:57)
[2024-10-04] MEDS: IBUPROFEN 400 MG TABLET 800 MG PO (09:20)
[2024-10-04] MEDS: DOCUSATE SODIUM 100 MG CAPSULE PO (09:20)
[2024-10-04 09:38] VITALS: TEMP 36.3
[2024-10-04 09:39] VITALS: BP 157/77; PULSE 99
--- NOTE | 2024-10-04 10:18 | PM.OBPN ---
OB - PN: Subj Subjective Patient comments: no complaints [place] status: doing well [place] feeding status: exclusively Exam Narrative Exam Narrative: NO COMPLAINTS Constitutional Vital Signs, click to edit/add: Last Vital Signs Temp 97.3 F L 10/04/24 09:38 Pulse 99 H 10/04/24 09:39 Resp 16 10/04/24 09:42 BP 157/77 H 10/04/24 09:39 Pulse Ox 100 10/03/24 17:00 O2 Del Method Room Air 10/04/24 09:42 Documenting provider has reviewed patient's vital signs: yes Common normals: no apparent distress, oriented x3, no limitations, healthy appearing, alert and well nourished General appearance: cooperative and comfortable HENMT Common normals: normocephalic and head/scalp atraumatic Eye Common normals: PERRL Pupil: accommodation reflex normal Neck & C-Spine Common normals: full ROM and supple Chest Common normals: inspection of chest normal Respiratory Common normals: normal respiratory effort Cardio Common normals: regular rate and regular rhythm GI Common normals: Normal to inspection, nondistended, normoactive bowel sounds present Common normals: no CVA tenderness Back & Pelvis Common normals: no thoracic nor lumbar tenderness Extremity Common normals: normal to inspection, full ROM and no calf tenderness Neuro Common normals: oriented x3, CN's II-XII intact bilaterally, moves all extremities, no focal motor deficits, no sensory deficits noted and deep tendon reflexes 2+ bilaterally Motor exam: strength 5/5 throughout Psych Common normals: mental status grossly normal, thought process normal, cooperative, affect normal, speech normal and activity/motor behavior normal Urinary Catheter Management Urinary Catheter Management Urethral: Cath placed during this visit: yes, but has since been removed by the nurse Removal date: 10/02/24 Removal time: 03:15 OB - PN: A/P Assessment and Plan (1) Hypertension: Assessment and Plan: PATIENT WAS ON AND OFF LABETALOL DURING . THE LAST 24 HOURS SHE HAS BEEN CONSISTENTLY HYPERTENSIVE THOUGH ASYMPTOMATIC. WILL GET A PIH WORKUP AND START ON NIFEDIPINE 30 MG PO XR QD. HOPEFULLY WILL SEND HOME TOMORROW. (2) Previous section: Assessment and Plan: MINIMAL PAIN, PERFORMING ADL'S, BREAST FEEDING, INCISION DRY AND INTACT Plan MONITOR BLOOD PRESSURE TODAY ON NIFEDIPINE.....HOPEFULLY CAN DISCHARGE TOMORROW. Plan - day: 3 Plan: routine postop care Time Spent with Patient Time: Total time spent is greater than 50% in coordination of care (as documented) at patient's floor/unit and/or counseling patient: Total time spent with greater than 50% in coordination of care (as documented) at patient's floor/unit and/or counseling patient: less than 15 minutes
[2024-10-04 10:26] VITALS: BP 157/77
[2024-10-04] MEDS: NIFEdipine 30 MG TAB.ER.24 PO (10:26)
[2024-10-04 10:35] LABS: Basophils Percent Auto 0.1 % (0.2-2.0); Eosinophils Absolute Auto 0.2 10^3/uL (0.0-0.7); Eosinophils Percent Auto 2.1 % (0.9-7.0); Hematocrit 26.1 % (36.0-48.0); Hemoglobin 8.2 g/dL (12.0-16.0); Immature Granulocytes Pct Auto 1.4 % (0.0-0.5); Lymphocytes Absolute Auto 1.5 10^3/uL (1.2-3.8); Lymphocytes Percent Auto 20.1 % (20.5-60.0); Mean Corpuscular HGB Conc 31.4 g/dL (29.9-35.2); Mean Corpuscular Hemoglobin 26.9 pg (26.7-34.0); Mean Corpuscular Volume 85.6 fL (81.0-99.0); Mean Platelet Volume 10.1 fL (9.5-13.5); Monocytes Absolute Auto 0.3 10^3/uL (0.3-0.8); Monocytes Percent Auto 4.3 % (1.7-12.0); Neutrophils Absolute Auto 5.2 10^3/uL (1.4-6.5); Platelet Count 373 10^3/uL (150-450); Red Blood Count 3.05 10^6/uL (4.20-5.40); Red Cell Distribution Width 14.2 % (11.0-15.0); White Blood Count 7.2 10^3/uL (4.0-11.0)
[2024-10-04 10:49] LABS: Alanine Aminotransferase 9 U/L (14-59); Albumin Globulin Ratio 0.6; Albumin Level 2.2 g/dL (3.4-5.0); Alkaline Phosphatase 120 U/L (46-116); Anion Gap 11.3; Aspartate Amino Transferase 15 U/L (15-37); BUN Creatinine Ratio 16.1; Bilirubin Total 0.2 mg/dL (0.2-1.0); Calcium 9.3 mg/dL (8.5-10.1); Carbon Dioxide 26.5 mmol/L (21.0-32.0); Chloride 106 mmol/L (98-107); Estimated GFR (African America >60 (>=60 mL/min/1.73m^2); Estimated GFR (Non-African Ame >60 (>=60 mL/min/1.73m^2); Globulin 3.7 g/dL; Glucose 89 mg/dL (74-106); Potassium 3.8 mmol/L (3.5-5.1); Sodium 140 mmol/L (136-145); Total Protein 5.9 g/dL (6.4-8.2)
[2024-10-04 12:23] VITALS: BP 144/75; PULSE 96
[2024-10-04 12:49] LABS: Creatinine Urine Random 239.34 mg/dL (20.00-300.00); Protein Creatinine Ratio Urine 0.23; Total Protein Urine Random 54.3 mg/dL (<=11.9)
[2024-10-04 16:53] VITALS: TEMP 36.7
[2024-10-04 16:54] VITALS: BP 128/74; PULSE 94
[2024-10-05] MEDS: IBUPROFEN 400 MG TABLET 800 MG PO (01:51)
[2024-10-05] MEDS: DOCUSATE SODIUM 100 MG CAPSULE PO ×2 (01:51→08:26)
[2024-10-05 01:55] VITALS: BP 137/81; PULSE 110
[2024-10-05 02:00] VITALS: BP 137/81; PULSE 110; TEMP 36.8
[2024-10-05] MEDS: ENOXAPARIN SODIUM 40 MG/0.4 ML SYRINGE SUBQ (07:13)
[2024-10-05] MEDS: ACETAMINOPHEN 500 MG TABLET 1000 MG PO (07:16)
[2024-10-05 08:25] VITALS: BP 130/77; PULSE 82; TEMP 36.6
[2024-10-05] MEDS: NIFEdipine 30 MG TAB.ER.24 PO (08:25)
--- NOTE | 2024-10-05 11:29 | PM.OBDS ---
DS: Providers Provider Date of admission: 10/01/24 05:00 Primary care physician: Kayce Pham MD Admitting clinician: Immanuel Hilton Attending physician on discharge: Nahed Guo DS: Diagnosis Discharge Diagnosis (1) Hypertension: Assessment and plan: doing well on nifedipine 30 mg XR QD, will send home on Qualifiers: Hypertension type: other secondary hypertension Qualified Code(s): I15.8 - Other secondary hypertension (2) Previous section: Assessment and plan: incision dry and intact, performing ADL's well, ready for discharge Plan discharge home OB - DS: Summary Hospital Course Hospital Course: UNCOMPLICATED Time spent discussing smoking cessation with patient: 3 to 10 minutes Peripartum Data - Procedures: Procedures Operation Date: 10/01/24 17:30 Actual Procedure Side Surgeon p with delivery of viable baby boy Not Applicable Immanuel Hilton DO Peripartum Data - Vaginal Delivery Procedures: Procedures Operation Date: 10/01/24 17:30 Actual Procedure Side Surgeon p with delivery of viable baby boy Not Applicable Immanuel Hilton DO Complications complications: none Delivery method: section Gender: male Discharge plan: home Status at Discharge Cognitive/behavioral status at discharge: WNL Functional status at discharge: independent ambulation Time Spent with Patient Time attestation: Total time spent providing and/or coordinating discharge services: Time spent: less than 30 minutes Specific discharge activities: WALKING ONLY EXERCISE FOR SIX WEEKS, MAY SHOWER BUT NO TUB FOR SIX WEEKS, NO CAR TRAVEL EXCEPT TO PHYSICIAN APPOINTMENT 4 WEEKS, NO LIFTING MORE THAN TEN POUNDS, NO SEX SIX WEEKS Exam Constitutional Vital Signs, click to edit/add: Last Vital Signs Temp 98 F 10/05/24 08:25 Pulse 82 10/05/24 08:25 Resp 14 10/05/24 08:25 BP 130/77 10/05/24 08:25 Pulse Ox 100 10/03/24 17:00 O2 Del Method Room Air 10/05/24 08:25 Documenting provider has reviewed patient's vital signs: yes Common normals: no apparent distress, average body habitus, oriented x3, no limitations, healthy appearing, alert and well nourished [facility] Common normals: normocephalic and head/scalp atraumatic Eye Common normals: PERRL Pupil: accommodation reflex normal Neck & C-Spine Common normals: full ROM and supple Respiratory Common normals: normal respiratory effort Auscultation: clear to auscultation bilaterally Cardio Common normals: regular rate and regular rhythm GI Common normals: Normal to inspection, nondistended, normoactive bowel sounds present, soft to palpation and non-tender Common normals: no CVA tenderness Back & Pelvis Common normals: no thoracic nor lumbar tenderness Extremity Common normals: normal to inspection, full ROM and no calf tenderness Neuro Common normals: CN's II-XII intact bilaterally, moves all extremities, no focal motor deficits and no sensory deficits noted Motor exam: strength 5/5 throughout Psych Common normals: mental status grossly normal, thought process normal, cooperative, affect normal, speech normal and activity/motor behavior normal DS: Data Data Completed and Pending Labs on day of discharge: Labs from last 24 hours 10/04/24 11:30 Ur Random Creatinine 239.34 U Random Total Protein 54.3 H Protein/Creatinin Ratio 0.23 Discharge Plan Discharge Disposition: Home, Self-Care Condition: Good Assessment: CLINICAL EXAM NONFOCAL, PERFORMING ADL'S, EATING AND ELIMINATING NORMALLY, BREAST FEEDING, VOICING NO COMPLAINT Plan of Treatment: DISCHARGE HOME Discharge Medications: Continued amoxicillin 500 mg capsule 500 mg PO Q12H ciprofloxacin HCl 0.2 % dropperette 5 drp otic (ear) BID 7 Days Qty: 14 0RF Rx Instructions: for the right ear please we can use ophthalmic 0.3 % solution if not available Activity: increase activity as tolerated Activity Detail: NO SEX SIX WEEKS, MAY CLIMB STAIRS, NO BATHTUB, MAY SHOWER, NO CAR FOR 4 WEEKS, GENERAL COVID AND RSV PRECAUTIONS, WALKING ONLY EXERCISE FOR 6 WEEKS Diet: regular diet Print Language: Macedonian Patient Instructions: (DC) Forms: Portal Instructions Follow Up Appointments: INCISION CHECK IN ONE WEEK, BABY TO SEE PEDS WITHIN ONE WEEK Discharge location: HOME
--- NOTE | 2024-10-05 13:34 | RESP.RT ---
done per nursing
[2024-10-05] MEDS: ADACEL DIPH,PERTUSS(ACELL),TET VAC/PF 0.5 ML ADULT SYRINGE IM (13:36)
--- NOTE | 2024-10-05 13:48 | PC.NURSE ---
LC into room, discusses feeding plan with parents and Amy voices good understanding of feeding expectations with Bert. Discussed LPI and handouts given. Able to pump volume of milk for easy supplement as needed. Will return 10/07/2024 for support.
--- NOTE | 2024-10-05 14:07 | PC.NURSE ---
1345: Hand written prescription per Dr. Guo made in addition to prescription written per Dr. Hilton. Hand written order per Dr. Guo shredded.
== END 2024-10-05 13:45 | disposition home or self-care (01) | DRG 788 ==
PROVIDERS: Obstetrics & Gynecology; Admitting Provider Obstetrics & Gynecology; PCP Family Medicine; Visit Provider Obstetrics & Gynecology
PROC: 10D00Z1 Extraction of Products of Conception, Low, Open Approach (ICD-10-PCS; CPT 59514; principal; 2024-10-01 17:30)
DX: O24.420 Gestational diabetes mellitus in childbirth, diet controlled (principal); O11.4 Pre-existing hypertension with pre-eclampsia, complicating childbirth; O99.284 Endocrine, nutritional and metabolic diseases complicating childbirth; E28.2 Polycystic ovarian syndrome; O76 Abnormality in fetal heart rate and rhythm complicating labor and delivery; Z3A.37 37 weeks gestation of pregnancy; Z37.0 Single live birth; Z91.040 Latex allergy status; Z79.82 Long term (current) use of aspirin; Z79.899 Other long term (current) drug therapy
CPT/HCPCS: 36415; 51702; 59050; 80053; 80307; 82570; 82948; 84156; 85025; 85027; 86850; 86900; 86901; 88307; 90715; 94667; 94668; J0690; J1650; J1885; J2274; J2300; J2371; J2405; J2590; J2765; J2795; J3010; J3490

== ENCOUNTER 2024-10-07 08:19 | Outpatient (OUT) | payer OTHER, BC, SELFPAY ==
--- OUTSIDE RECORDS SUMMARY | 2024-10-07 08:43 | XMS_ITS | CCD ---
Author Organization [facility] Care Team Providers Care User Experience Developer Name Role Phone YOBANI ., DR SMITH Admitting Unavailable YOBANI ., DR SMITH Attending Unavailable GRANT, DR AKILA Watson Primary Care Unavailable YOBANI ., DR SMITH Consulting Unavailable YOBANI ., DR SMITH Admitting Unavailable YOBANI ., DR SMITH Attending Unavailable RUDY, DR AKILA Watson Primary Care Unavailable ZUELIMA, DR CLEMENTINE Mayo Consulting Unavailable YOBANI ., [...] Unavailable Akila Grant MD Primary Care Provider [phone] IMMANUEL HILTON Referring Unavailable CELE RODRIGUEZ Attending Unavailable IMMANUEL HILTON Referring Unavailable Unavailable Primary Care Provider Unavailabl e YOBANI, IMMANUEL Referring Unavailable YOBANI, IMMANUEL Attending Unavailable YOBANI, IMMANUEL Attending Unavailable YOBANI, IMMANUEL Attending Unavailable YOBANI, IMMANUEL Attending Unavailable YOBANI, IMMANUEL Attending Unavailable JIM, JOHNNY Attending Unavailable YOBANI, IMMANUEL Attending Unavailable YOBANI, IMMANUEL Attending Unavailable YOBANI, IMMANUEL Attending Unavailable YOBANI, IMMANUEL Attending Unavailable YOBANI, IMMANUEL Attending Unavailable Yobani, Immanuel Admitting Unavailable Yobani, Immanuel Attending Unavailable NON STAFF Admitting Unavailable NON STAFF Attending Unavailable Allergies Allergy Classification Reported Allergen(s) Allergy Type Date of Onset Reaction(s) Facility (3 sources) Latex Drug allergy (disorder) 0 hives [facility] Repository (1 source) orange flavor Drug allergy (disorder) 0 [facility] Repository (7 sources) [place] - fruit; Translations: [ORANGE] 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 4 anaphylaxis [facility] (20 sources) Latex 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 4 Hives, Itching, Rash, Swelling [facility] (20 sources) orange allergenic extract Drug Allergy 4 [facility] Work Phone: (1 source) natural latex rubber; Translations: [LATEX, NATURAL RUBBER] Propensity to adverse reactions to drug (disorder) 4 [facility] Repository (1 source) Latex Drug allergy (disorder) 4 [facility] Repository Medications Current Medications Medication Drug [...] tablet Active 1 TAB PO Twice daily 17 05January 01, 2024 11:00pm aspirin 81 mg chewable [...] MCG/0.5ML injection 11/26/2023 03/27/2024 Discontinued Continuous Glucose Spool Fixer (FreeStyle Jenise 3 [place]) device (20 sources) Start: 08-20-2024 Continuous Glucose Spool Fixer (FreeStyle Jenise 3 [place]) device Indications: Gestational diabetes mellitus (GDM), antepartum, gestational diabetes method of control unspecified , Third trimester 1 each every 14 (fourteen) days 1 each 3 08/20/2024 Active Continuous Glucose Sensor (FreeStyle Jenise 3 Sensor) [facility] (20 sources) Start: 08-20-2024 Continuous Glucose Sensor (FreeStyle Jenise 3 Sensor) [facility] Indications: Gestational diabetes mellitus (GDM), antepartum, gestational [...] 11:00pm ondansetron 4 mg disintegrating oral tablet (15 sources) Serotonin-3 Receptor Antagonist Start: 04-13-20 End: [...] Test Name Value Interpretation Reference Range Facility [facility] CBC WITH PLATELET NO DI FFERENTIALon 10-01-2024 Erythrocyte distribution width (RBC) [Ratio] 14 % 11.0 - 15.0 % [facility] Hematocrit (Bld) [Volume fraction] 33.8 % Low 36.0 - 48.0 % [facility] Hemoglobin (Bld) [Mass/Vol] 10.9 g/dL Low 12.0 - 16.0 g/dL [facility] Interpretation and review of laboratory results Abnormal [facility] MCH (RBC) [Entitic mass] 26.9 pg 26.7 - 34.0 pg [facility] MCHC (RBC) [Mass/Vol] 32.2 g/dL 29.9 - 35.2 g/dL [facility] MCV (RBC) [Entitic vol] 83.5 fL 81.0 - 99.0 fL [facility] Platelet mean volume (Bld) [Entitic vol] 11.8 fL 9.5 - 13.5 fL [facility]H PLT 367 [facility] RBC 4.05 Low [facility] WBC 7.7 [facility] US OB BPP W NON-STRESS on 09-30-2024 [place] [address] Ultrasound Report Signed Patient: AMY MARIO MR#: [id number] : 2000 Acct:[id number] Age/Sex: 24 / F ADM Date: 09/30/24 Loc: US Attending Dr: Immanuel Hilton D.O. Ordering Physician: Immanuel Hilton D.O. Date of Service: 09/30/24 Procedure(s): US OB BPP w non-stress Accession Number(s): [id number] cc: Akila Grant M.D.; Immanuel Hilton D.O. The [address] [address] Patient Name: AMY MARIO MRN: [facility]:[id number] date: 2000 Sex: F Assigned Patient Location: [facility] Current Patient Location: Accession/Order Number: [id number] Exam Date: 09/30/2024 22:21 Report Date: 09/30/2024 [...] 8 out of 8. Impression dictated by: Juliano Johnston Jr., D.O.09/30/2024 10:24 PM Dictation Location: [place] [address] Electronically authenticated by: [id number] Y Date: 09/30/2024 22:24 Dictated By: Juliano Johnston M.D. Signed By: 09/30/242225 DD/ 23 TD/TT: Toy Maker: [facility] Radiology, Radiologist, MD - 09/30/2024 [place] [address] Ultrasound Report Signed Patient: AMY MARIO MR#: [id number] : 2000 Acct:[id number] Age/Sex: 24 / F ADM Date: 09/30/24 Loc: US Attending Dr: Immanuel Hilton D.O. Ordering Physician: Immanuel Hilton D.O. Date of Service: 09/30/24 Procedure(s): US OB BPP w non-stress Accession Number(s): [id number] cc: Akila Grant M.D.; Immanuel Hilton D.O. The [place] [id number] Patient Name: AMY MARIO MRN: [facility]:[id number] date: 2000 Sex: F Assigned Patient Location: [facility] Current Patient Location: Accession/Order Number: [id number] Exam Date: 09/30/2024 22:21 Report Date: 09/30/2024 [...] 8 out of 8. Impression dictated by: Juliano Johnston Jr., D.O.09/30/2024 10:24 PM Dictation Location: [place] [address] Electronically authenticated by: [id number] Y Date: 09/30/2024 22:24 Dictated By: Juliano Johnston M.D. Signed By: 09/30/242225 DD/ 23 TD/TT: Toy Maker: [facility] Radiology Study observation (narrative) [facility] US OB BPP W NON-STRESS Ordered By: Radiologist Radiology on 09-30-2024 [facility] Work Phone: Urinalysis macro (dipstick) panel (U)on 09-29-2024 Bilirubin, UA Negative Negative - 4(70) +++ mg/dL [facility] Blood, UA Negative Negative - 50 Jimy/mcL [facility] Clarity, UA Clear [facility] Color, UA Cynthia [facility] Glucose, UA Negative Negative - 2000(110) ++++ mg/dL [facility] Interpretation and review of laboratory results Normal [facility] Ketones, UA Negative Negative - 160(16) ++++ mg/dL [facility] Leukocytes, UA Negative Negative - 500+++ Myhcal/mcL [facility] Nitrite, UA Negative Negative - Positive [facility] pH, UA 7 5 - 9 [facility] Protein, UA Positive Negative - 2000(20) ++++ mg/dL [facility] Comment on above: 30 Spec Grav, UA 1.025 1 - 1.03 [facility] Urobilinogen, UA 1.0 0.2 - 12 mg/dL [facility] US OB BPP W NON-STRESS on 09-23-2024 [place] [address] Ultrasound Report Signed Patient: AMY MARIO MR#: [id number] : 2000 Acct:[id number] Age/Sex: 24 / F ADM Date: 09/23/24 Loc: US Attending Dr: Immanuel Hilton D.O. Ordering Physician: Immanuel Hilton D.O. Date of Service: 09/23/24 Procedure(s): US OB BPP w non-stress Accession Number(s): [id number] cc: Akila Grant M.D.; Immanuel Hilton D.O. [address] [address] Patient Name: AMY MARIO MRN: [id number]:[id number] date: 2000 Sex: F Assigned Patient Location: [facility] Current Patient Location: Accession/Order Number: [id number] Exam Date: 09/23/2024 12:21 Report Date: 09/23/2024 12:23 At the request of: IMMANUEL HILTON DO Procedure: US OB BPP w non-stress BIOPHYSICAL PROFILE: CLINICAL INFORMATION: Gestational diabetes mellitus O24.419 COMPARISON: 09/16/2024 There is a single live intrauterine gestation in cephalic presentation. The reported gestational age is 35 weeks 6 days. The heart rate [id number] beats per minute. FINDINGS: TONE: 1 or [...] Chika Holden M.D.09/23/2024 12:23 PM Dictation Location: [place] [address] Electronically authenticated by: [id number] Y Date: 09/23/2024 12:23 Dictated By: Chika Holden M.D. Signed By: 09/23/241225 DD/ 22 TD/TT: Toy Maker: [facility] Radiology, Radiologist, - 09/23/2024 [place] [address] Ultrasound Report Signed Patient: AMY MARIO MR#: [id number] : 2000 Acct:[id number] Age/Sex: 24 / F ADM Date: 09/23/24 Loc: US Attending Dr: Immanuel Hilton D.O. Ordering Physician: Immanuel Hilton D.O. Date of Service: 09/23/24 Procedure(s): US OB BPP w non-stress Accession Number(s): [id number] cc: Akila Grant M.D.; Immanuel Hilton D.O. The [place] [id number] Patient Name: AMY MARIO MRN: [facility]:[id number] date: 2000 Sex: F Assigned Patient Location: [facility] Current Patient Location: Accession/Order Number: [id number] Exam Date: 09/23/2024 12:21 Report Date: 09/23/2024 12:23 At the request of: IMMANUEL HILTON DO Procedure: US OB BPP w non-stress BIOPHYSICAL PROFILE: CLINICAL INFORMATION: Gestational diabetes mellitus O24.419 COMPARISON: 09/16/2024 There is a single live intrauterine gestation in cephalic presentation. The reported gestational age is 35 weeks 6 days. The heart rate [id number] beats per minute. FINDINGS: TONE: 1 or [...] This is in low-normal range. Total score: 03/05 US/US OB BPP w non-stress IMPRESSION: NORMAL BIOPHYSICAL PROFILE. Impression dictated by: Chika Holden M.D.09/23/2024 12:23 PM Dictation Location: [place] [address] Electronically authenticated by: [id number] Y Date: 09/23/2024 12:23 Dictated By: Chika Holden M.D. Signed By: 09/23/24 1226 DD/ 1223 TD/TT: Toy Maker: [facility] Radiology Study observation (narrative) [facility] OB BPP W NON-STRESS Ordered By: Radiologist Radiology on 09-23-2024 [facility] Work Phone: TB TOTAL PROTEIN 24 HOUR UR INEon 09-22-2024 Interpretation and review of laboratory results Abnormal [facility] Protein (U) [Mass/Vol] 23.9 mg/dL High [facility] - 11.9 mg/dL [facility] TB TOTAL PROTEIN 24 HOUR URINE 239 High [facility] TOTAL VOLUME 24 HOUR URINE 1000 mL/24hr [facility] Urinalysis macro (dipstick) panel (U)on 09-22-2024 Bilirubin, UA Positive Negative - 4(70) +++ mg/dL [facility] Comment on above: small Blood, UA Positive Negative - 50 Jimy/mcL [facility] Comment on above: trace-intact Clarity, UA Clear [facility] Color, UA Cynthia [facility] Glucose, UA Negative Negative - 2000(110) ++++ mg/dL [facility] Interpretation and review of laboratory results Abnormal [facility] Ketones, UA Negative Negative - 160(16) ++++ mg/dL [facility] Leukocytes, UA Positive Negative - 500+++ Mychal/mcL [facility] Comment on above: small Nitrite, UA Negative Negative - Positive [facility] pH, UA 6 5 - 9 [facility] Protein, UA Positive Negative - 2000(20) ++++ mg/dL [facility] Comment on above: 30 Spec Grav, UA 1.02 1 - 1.03 [facility] Urobilinogen, UA 1.0 0.2 - 12 mg/dL [facility] Laboratory - Chemistry and C hemistry - challengeon 09-20-2024 Bilirubin Ql (U) SMALL Abnormal NEGATIVE [facility] Glucose (U) [Mass/Vol] Negative NEGATIVE [facility] Ketones Ql (U) >=80 mg/dL Abnormal NEGATIVE [facility] pH (U) 5.5 [pH] 5.0-9.0 [facility] Specific gravity (U) [Rel density] >=1.030 Abnormal 1.005-1.025 [facility] Urobilinogen Qn (U) 0.2 {Brian'U}/dL 0.2-1.0 [facility] Laboratory - Specimen inform ationon 09-20-2024 Appearance (U) SL CLOUDY CLEAR [facility] Color (U) YELLOW YELLOW [facility] Laboratory - Urinalysison Leukocyte esterase Test strip Ql (U) TRACE Abnormal NEGATIVE [facility] Mucus Ql (Urine sed) LARGE Abnormal NONE SEEN [facility] Nitrite Ql (U) Negative NEGATIVE [facility] Protein Ql (U) 30 mg/dL Abnormal NEG/TRACE [facility] No Panel Informationon 09-20 Urine Bacteria SMALL #/HPF Abnormal NONE SEEN [facility] Urine Culture Reflexed YES-[facility] Urine Microscopic Review YES [facility] Urine Occult Blood LARGE Abnormal NEGATIVE [facility] Urine Other Casts NONE SEEN #/LPF NONE SEEN [facility] Urine Other Crystals None Seen #/HPF None Seen [facility] Urine RBC 0-2 #/HPF 0-2 [facility] Urine Squamous Epithelial Cells FEW #/LPF Abnormal NONE/RARE [facility] Urine WBC 0-2 #/HPF Abnormal NONE SEEN [facility] Urine Cultureon 09-20-2024 Bacteria identified Cx Nom (U) Urine Culture Results >100,000 col/ml Mixed Bacterial Skin Contaminants 2 Days PERFORMED BY: [place] [address] PATHOLOGIST [employer] MECH[employer]IC SHELLIE PALOMINO M.D. Normal [facility] Comment on above: Performed By: #### C UU #### [address] US OB BPP W NON-STRESS on 09-16-2024 [place] [address] Ultrasound Report Signed Patient: AMY MARIO MR#: [id number] : 2000 Acct:[id number] Age/Sex: 24 / F ADM Date: 09/16/24 Loc: [facility] 250-[address]: Immanuel Hilton D.O. Ordering Physician: Immanuel Hilton D.O. Date of Service: 09/16/24 Procedure(s): US OB BPP w non-stress Accession Number(s): [id number] cc: Akila Grant M.D.; Immanuel Hilton D.O. The [place] [id number] Patient Name: AMY MARIO MRN: [facility]:[id number] date: 2000 Sex: F Assigned Patient Location: [facility] Current Patient Location: [facility] Accession/Order Number: [id number] Exam Date: 09/16/2024 09:04 Report Date: 09/16/2024 [...] 34 weeks 4 days. The heart rate [id number] beats per minute. FINDINGS: TONE: 1 or [...] This is in normal range. Total score: 8/ US/US OB BPP w non-stress IMPRESSION: NORMAL BIOPHYSICAL PROFILE. Impression dictated by: Chika Holden M.D.09/16/2024 9:06 AM Dictation Location: [place] [address] Electronically authenticated by: [id number] Y Date: 09/16/2024 09:06 Dictated By: Chika Holden M.D. Signed By: 09/16/24908 DD/ 5 TD/TT: Toy Maker: [facility] Radiology, Radiologist, - 09/16/2024 [place] [address] Ultrasound Report Signed Patient: AMY MARIO MR#: [id number] : 2000 Acct:[id number] Age/Sex: 24 / F ADM Date: 09/16/24 Loc: [place] [address]-[address]: Immanule Hilton D.O. Ordering Physician: Immanuel Hilton D.O. Date of Service: 09/16/24 Procedure(s): US OB BPP w non-stress Accession Number(s): [id number] cc: Akila Grant M.D.; Immanuel Hilton D.O. The [place] [id number] Patient Name: AMY MARIO MRN: [facility]:[id number] date: 2000 Sex: F Assigned Patient Location: [facility] Current Patient Location: [facility] Accession/Order Number: [id number] Exam Date: 09/16/2024 09:04 Report Date: 09/16/2024 [...] 34 weeks 4 days. The heart rate [id number] beats per minute. FINDINGS: TONE: 1 or [...] Chika Holden M.D.09/16/2024 9:06 AM Dictation Location: [place] [address] Electronically authenticated by: [id number] Y Date: 09/16/2024 09:06 Dictated By: Chika Holden M.D. Signed By: 09/16/24908 DD/ 5 TD/TT: Toy Maker: [facility] Radiology Study observation (narrative) [facility] US OB BPP W NON-STRESS Ordered By: Radiologist Radiology on 09-16-2024 [facility] Work Phone: US OB GROWTHon 09-16-[address] [address] Ultrasound Report Signed Patient: AMY MARIO MR#: [id number] : 2000 Acct:[id number] Age/Sex: 24 / F ADM Date: 09/16/24 Loc: [facility] 250-[address]: mImanuel Hilton D.O. Ordering Physician: Immanuel Hilton D.O. Date of Service: 09/16/24 Procedure(s): US OB growth Accession Number(s): [id number] cc: Akila Grant M.D.; Immanuel Hilton D.O. [address] [address] Patient Name: AMY MARIO MRN: [facility]:[id number] date: 2000 Sex: F Assigned Patient Location: [facility] Current Patient Location: [facility] Accession/Order Number: [id number] Exam Date: 09/16/2024 09:07 Report Date: 09/16/2024 [...] Chika Holden M.D.09/16/2024 9:15 AM Dictation Location: [place] [address] Electronically authenticated by: [id number] Y Date: 09/16/2024 09:15 Dictated By: Chika Holden M.D. Signed By: 09/16/24917 DD/ 4 TD/TT: Toy Maker: [facility] Radiology, Radiologist, - 09/16/2024 [place] [address] Ultrasound Report Signed Patient: AMY MARIO MR#: [id number] : 2000 Acct:[id number] Age/Sex: 24 / F ADM Date: 09/16/24 Loc: [facility] 250-[address]: Immanuel Hilton D.O. Ordering Physician: Immanuel Hilton D.O. Date of Service: 09/16/24 Procedure(s): US OB growth Accession Number(s): [id number] cc: Akila Grant M.D.; Immanuel Hilton D.O. The [place] [address] Patient Name: AMY MARIO MRN: [id number]:[id number] date: 2000 Sex: F Assigned Patient Location: [facility] Current Patient Location: [facility] Accession/Order Number: [id number] Exam Date: 09/16/2024 09:07 Report Date: 09/16/2024 [...] Chika Holden M.D.09/16/2024 9:15 AM Dictation Location: [place] [address] Electronically authenticated by: [id number] Y Date: 09/16/2024 09:15 Dictated By: Chika Holden M.D. Signed By: 09/16/24917 DD/ 4 TD/TT: Toy Maker: [facility] Radiology Study observation (narrative) [facility] US OB GROWTHOrdered By: Radi ologist Radiology on 09-16-2024 [facility] Work Phone: [facility]H TOTAL PROTEIN 24 HOUR UR INEon 09-12-2024 Interpretation and review of laboratory results Abnormal [facility] Protein (U) [Mass/Vol] 29.7 mg/dL High [facility] - 11.9 mg/dL [facility] TBH TOTAL PROTEIN 24 HOUR URINE 148.5 NINF [facility] TOTAL VOLUME 24 HOUR URINE 500 mL/24hr [facility] ALL CBC WITH AUTO DIFFon BASOPHILS ABSOLUTE AUTO 0 [facility] Basophils/100 WBC (Bld) 0.1 % Low 0.2 - 2.0 % [facility] Eosinophils/100 WBC (Bld) 0.7 % Low 0.9 - 7.0 % [facility] Erythrocyte distribution width (RBC) [Ratio] 13.4 % 11.0 - 15.0 % [facility] Hematocrit (Bld) [Volume fraction] 32.2 % Low 36.0 - 48.0 % [facility] Hemoglobin (Bld) [Mass/Vol] 10.6 g/dL Low 12.0 - 16.0 g/dL [facility] IMMATURE GRANULOCYTES ABS AUTO 0.06 High [facility] Immature granulocytes/100 WBC (Bld) 0.9 % High 0.0 - 0.5 % [facility] Interpretation and review of laboratory results Abnormal [facility] LYMPHOCYTES ABSOLUTE AUTO 1.4 [facility] Lymphocytes/100 WBC (Bld) 19.7 % Low 20.5 - 60.0 % [facility] MCH (RBC) [Entitic mass] 28.3 pg 26.7 - 34.0 pg [facility] MCHC (RBC) [Mass/Vol] 32.9 g/dL 29.9 - 35.2 g/dL [facility] MCV (RBC) [Entitic vol] 85.9 fL 81.0 - 99.0 fL [facility] MONOCYTES ABSOLUTE AUTO 0.5 [facility] Monocytes/100 WBC (Bld) 7.4 % 1.7 - 12.0 % [facility] NEUTROPHILS ABSOLUTE AUTO 4.9 [facility] Neutrophils/100 WBC (Bld) 71.2 % 43.0 - 75.0 % [facility] Platelet mean volume (Bld) [Entitic vol] 10.4 fL 9.5 - 13.5 fL [facility] RBC 3.75 Low [facility] WBC 6.9 [facility] Activated partial thrombopla stin time (aPTT) in platelet poor plasma by coagulation aon 09-09-2024 aPTT Coag (PPP) [Time] Activated partial thromboplastin time (aPTT) in platelet poor plasma by coagulation a Low 22.3-36.2 [facility] Basophils Auto (Bld) [#/Vol] on 09-09-2024 Basophils (Bld) [#/Vol] Automated basophil count 0.0-0.1 [facility] Basophils/100 WBC Auto (Bld) on 09-09-2024 Basophils/100 WBC (Bld) Automated basophil % Low 0.2-2.0 [facility] Eosinophils/100 WBC Auto (Bl d)on 09-09-2024 Eosinophils/100 WBC (Bld) Automated eosinophil % Low 0.9-7.0 [facility] Erythrocyte distribution wid th Auto (RBC) [Ratio]on 09-09-2024 Erythrocyte distribution width (RBC) [Ratio] Erythrocyte distribution width [Ratio] by Automated count 11.0-15.0 [facility] Estimated glomerular filtrat ion rate (GFR) non- Americanon 09-09-2024 GFR/1.73 sq M.predicted among non-blacks MDRD (S/P/Bld) [Vol rate/Area] Estimated glomerular filtration rate (GFR) non- >=60 mL/min/1.73m 2 [facility] Hematocrit Auto (Bld) [Volum e fraction]on 09-09-2024 Hematocrit (Bld) [Volume fraction] Hematocrit [Volume Fraction] of Blood by Automated count Low 36.0-48.0 [facility] Hemoglobin [Mass/volume] in Bloodon 09-09-2024 Hemoglobin (Bld) [Mass/Vol] Hemoglobin [Mass/volume] in Blood Low 12.0-16.0 [facility] INR in Platelet poor plasma by Coagulation assayon 09-09-2024 INR Coag (PPP) [Relative time] INR in Platelet poor plasma by Coagulation assay [facility] Comment on above: DESIRED INR:2.0-3.0 CONDITIONS NOT LISTED BELOW2.5-3.5 FOR PROSTHETIC HEART VALVE REPLACEMENT2.5-3.5 RECURRENT THROMBOSIS Laboratory - Chemistry and C hemistry - challengeon 09-09-2024 AST [Catalytic activity/Vol] 14 U/L Low 15-37 [facility] Creatinine [Mass/Vol] 0.56 mg/dL 0.55-1.02 [facility] GFR/1.73 sq M.predicted MDRD (S/P/Bld) [Vol rate/Area] mL/min/{1.73_m2} >=60 mL/min/1.73m 2 [facility] LDH [Catalytic activity/Vol] 296 U/L High 81-234 [facility] Urate [Mass/Vol] 5.4 mg/dL 2.6-6.0 [facility] Urea nitrogen [Mass/Vol] 5.0 mg/dL Low 7.0-18.0 [facility] Laboratory - Hematology and Cell countson 09-09-2024 Immature granulocytes/100 WBC (Bld) 0.9 % High 0.0-0.5 [facility] Leukocytes [#/volume] correc lisha for nucleated erythrocytes in Blood by Automated counon 09-09-2024 WBC corrected for nucl RBC Auto (Bld) [#/Vol] Leukocytes [#/volume] corrected for nucleated erythrocytes in Blood by Automated coun 4.0-11.0 [facility] Lymphocytes Auto (Bld) [#/Vo l]on 09-09-2024 Lymphocytes (Bld) [#/Vol] Lymphocytes [#/volume] in Blood by Automated count 1.2-3.8 [facility] Lymphocytes/100 WBC Auto (Bl d)on 09-09-2024 Lymphocytes/100 WBC (Bld) Lymphocytes/100 leukocytes in Blood by Automated count Low 20.5-60.0 [facility] MCH Auto (RBC) [Entitic mass ]on 09-09-2024 MCH (RBC) [Entitic mass] MCH [Entitic mass] by Automated count 26.7-34.0 [facility] MCHC Auto (RBC) [Mass/Vol]on 09-09-2024 MCHC (RBC) [Mass/Vol] MCHC [Mass/volume] by Automated count 29.9-35.2 [facility] MCV Auto (RBC) [Entitic vol] on 09-09-2024 MCV (RBC) [Entitic vol] MCV [Entitic volume] by Automated count 81.0-99.0 [facility] Monocytes Auto (Bld) [#/Vol] on 09-09-2024 Monocytes (Bld) [#/Vol] Automated blood monocyte count 0.3-0.8 [facility] Monocytes/100 WBC Auto (Bld) on 09-09-2024 Monocytes/100 WBC (Bld) Automated monocyte % 1.7-12.0 [facility] Neutrophils Auto (Bld) [#/Vo l]on 09-09-2024 Neutrophils (Bld) [#/Vol] Neutrophils [#/volume] in Blood by Automated count 1.4-6.5 [facility] Neutrophils/100 WBC Auto (Bl d)on 09-09-2024 Neutrophils/100 WBC (Bld) Automated neutrophil % 43.0-75.0 [facility] No Panel Informationon 09-09 Eosinophils # (Auto) 0.1 10 3/uL 0.0-0.[address] [facility] Immature Granulocyte # (Auto) 0.06 10 3/uL High 0.00-0.03 [facility] Platelet mean volume Auto (B ld) [Entitic vol]on 09-09-2024 Platelet mean volume (Bld) [Entitic vol] Platelet mean volume [Entitic volume] in Blood by Automated count 9.5-13.5 [facility] Platelets Auto (Bld) [#/Vol] on 09-09-2024 Platelets (Bld) [#/Vol] Platelets [#/volume] in Blood by Automated count 150-450 [facility] Prothrombin time (PT)on 08-29 PT Coag (PPP) [Time] Prothrombin time (PT) 9.0-11.6 [facility] RBC Auto (Bld) [#/Vol]on RBC (Bld) [#/Vol] Erythrocytes [#/volume] in Blood by Automated count Low 4.20-5.40 [facility] US OB BPP W NON-STRESS on 09-09-2024 [place] [address] Ultrasound Report Signed Patient: AMY MARIO MR#: [id number] : 2000 Acct:[id number] Age/Sex: 24 / F ADM Date: 09/09/24 Loc: US Attending Dr: Immanuel Hilton D.O. Ordering Physician: Immanuel Hilton D.O. Date of Service: 09/09/24 Procedure(s): US OB BPP w non-stress Accession Number(s): [id number] cc: Akila Grant M.D.; Immanuel Hilton D.O. [place] [address] Patient Name: AMY MARIO MRN: [id number]:[id number] date: 2000 Sex: F Assigned Patient Location: [facility] Current Patient Location: ED.MAIN Accession/Order Number: [id number] Exam Date: 09/09/2024 07:58 Report Date: 09/09/2024 [...] Signed By: 09/09/24 1132 DD/ 1130 TD/TT: Toy Maker: [facility] Radiology, Radiologist, MD - 09/09/2024 [place] [address] Ultrasound Report Signed Patient: AMY MARIO MR#: [id number] : 2000 Acct:[id number] Age/Sex: 24 / F ADM Date: 09/09/24 Loc: US Attending Dr: Immanuel Hilton D.O. Ordering Physician: Immanuel Hilton D.O. Date of Service: 09/09/24 Procedure(s): US OB BPP w non-stress Accession Number(s): [id number] cc: Akila Grant M.D.; Immanuel Hilton D.O. The [place] [address] Patient Name: AMY MARIO MRN: [facility]:[id number] date: 2000 Sex: F Assigned Patient Location: [facility] Current Patient Location: ED.MAIN Accession/Order Number: [id number] Exam Date: 09/09/2024 07:58 Report Date: 09/09/2024 [...] Signed By: 09/09/24 1132 DD/ 1130 TD/TT: [facility]: [facility] Radiology Study observation (narrative) [facility] US OB BPP W NON-STRESS Ordered By: Radiologist Radiology on 09-09-2024 [facility] Work Phone: Urinalysis macro (dipstick) panel (U)on 09-08-2024 Bilirubin, UA Trace Negative - 4(70) +++ mg/dL [facility] Blood, UA Positive Negative - 50 Jimy/mcL [facility] Clarity, UA Clear [facility] Color, UA Yellow [facility] Glucose, UA Negative Negative - 2000(110) ++++ mg/dL [facility] Interpretation and review of laboratory results Abnormal [facility] Ketones, UA Negative Negative - 160(16) ++++ mg/dL [facility] Leukocytes, UA Positive Negative - 500+++ Mychal/mcL [facility] Nitrite, UA Negative Negative - Positive [facility] pH, UA 6 5 - 9 [facility] Protein, UA Positive Negative - 2000(20) ++++ mg/dL [facility] Spec Grav, UA 1.025 1 - 1.03 [facility] Urobilinogen, UA 0.2 0.2 - 12 mg/dL [facility] US OB BPP W NON-STRESS on 09-02-2024 [place] [address] Ultrasound Report Signed Patient: AMY MARIO MR#: [id number] : 2000 Acct:[id number] Age/Sex: 24 / F ADM Date: 09/02/24 Loc: US Attending Dr: Immanuel Hilton D.O. Ordering Physician: Immanuel Hilton D.O. Date of Service: 09/02/24 Procedure(s): US OB BPP w non-stress Accession Number(s): [id number] cc: Akila Grant M.D.; Immanuel Hilton D.O. [place] [id number] Patient Name: AMY MARIO MRN: [facility]:[id number] date: 2000 Sex: F Assigned Patient Location: [facility] Current Patient Location: Accession/Order Number: [id number] Exam Date: 09/02/2024 08:03 Report Date: 09/02/2024 [...] M.D. Signed By: 09/02/24924 DD/ 1 TD/TT: Toy Maker: [facility] Radiology, Radiologist, MD - 09/02/2024 [place] [address] Ultrasound Report Signed Patient: AMY MARIO MR#: [id number] : 2000 Acct:[id number] Age/Sex: 24 / F ADM Date: 09/02/24 Loc: US Attending Dr: Immanuel Hilton D.O. Ordering Physician: Immanuel Hilton D.O. Date of Service: 09/02/24 Procedure(s): US OB BPP w non-stress Accession Number(s): [id number] cc: Akila Grant M.D.; Immanuel Hilton D.O. The [address] [id number] Patient Name: AMY MARIO MRN: [facility]:[id number] date: 2000 Sex: F Assigned Patient Location: [facility] Current Patient Location: Accession/Order Number: [id number] Exam Date: 09/02/2024 08:03 Report Date: 09/02/2024 [...] M.D. Signed By: 09/02/24924 DD/ 1 TD/TT: Toy Maker: [facility] Radiology Study observation (narrative) [facility] US OB BPP W NON-STRESS Ordered By: Radiologist Radiology on 09-02-2024 [facility] [employer] Work Phone: US OB FOLLOW UP TRANSABDOMIN [...] 2164 gm / 4 lbs, 12 oz (5561-1596 gm) [place] Normal: 1953 gm (2369-5786 mg) [place] 80% for 32.0 wks ([place] [...] report is generated using voice recognition reporting (ItsOn). On occasion ItsOn erroneously drops words from the report or [...] UA Positive Negative - 4(70) +++ mg/dL [facility] Comment on above: small Blood, UA Negative Negative - 50 Jimy/mcL [facility] Clarity, UA Clear [facility] Color, UA Yellow [facility] Glucose, UA Positive Negative - 2000(110) ++++ mg/dL [facility] Comment on above: 100 Interpretation and review of laboratory results Abnormal [facility] Ketones, UA Positive Negative - 160(16) ++++ mg/dL [facility] Comment on above: trace Leukocytes, UA Positive Negative - 500+++ Mychal/mcL [facility] Comment on above: large Nitrite, UA Negative Negative - Positive [facility] pH, UA 6.5 5 - 9 [facility] Protein, UA Positive Negative - 2000(20) ++++ mg/dL [facility] Comment on above: 30 Spec Grav, UA 1.03 1 - 1.03 [facility] Urobilinogen, UA 0.2 0.2 - 12 mg/dL [facility] US OB BPP W NON-STRESS on 08-26-[address] [address] Ultrasound Report Signed Patient: AMY MARIO MR#: [id number] : 2000 Acct:[id number] Age/Sex: 24 / F ADM Date: 08/26/24 Loc: [facility] 251-[address]: Immanuel Hilton D.O. Ordering Physician: Immanuel Hilton D.O. Date of Service: 08/26/24 Procedure(s): US OB BPP w non-stress Accession Number(s): [id number] cc: Akila Grant M.D.; Immanuel Hilton D.O. The [place] [address] Patient Name: AMY MARIO MRN: [facility]:[id number] date: 2000 Sex: F Assigned Patient Location: [facility] Current Patient Location: [facility] Accession/Order Number: [id number] Exam Date: 08/26/2024 08:00 Report Date: 08/26/2024 [...] Mixon M.D. Signed By: 08/26/2458 DD/ TD/TT: Toy Maker: [facility] Radiology, Radiologist, MD - 08/26/2024 [place] [address] Ultrasound Report Signed Patient: AMY MARIO MR#: [id number] : 2000 Acct:[id number] Age/Sex: 24 / F ADM Date: 08/26/24 Loc: [facility] 251-[address]: Immanuel Hilton D.O. Ordering Physician: Immanuel Hilton D.O. Date of Service: 08/26/24 Procedure(s): US OB BPP w non-stress Accession Number(s): [id number] cc: Akila Grant M.D.; Immanuel Hilton D.O. [place] [phone] Patient Name: AMY MARIO MRN: [id number]:[id number] date: 2000 Sex: F Assigned Patient Location: [facility] Current Patient Location: [facility] Accession/Order Number: [id number] Exam Date: 08/26/2024 08:00 Report Date: 08/26/2024 [...] M.D. Signed By: 08/26/24 0858 DD/ TD/TT: Toy Maker: [facility] Radiology Study observation (narrative) [facility] US OB BPP W NON-STRESS Ordered By: Radiologist Radiology on 08-26-2024 [facility] Work Phone: Urinalysis macro (dipstick) panel (U)on 08-12-2024 Bilirubin, UA Negative Negative - 4(70) +++ mg/dL [facility] Blood, UA Negative Negative - 50 Jimy/mcL [facility] Clarity, UA Clear [facility] Color, UA Yellow [facility] Glucose, UA Negative Negative - 1999(110) ++++ mg/dL [facility] Interpretation and review of laboratory results Abnormal [facility] Ketones, UA Positive Negative - 160(16) ++++ mg/dL [facility] Comment on above: trace Leukocytes, UA Positive Negative - 500+++ Mychal/mcL [facility] Comment on above: large Nitrite, UA Negative Negative - Positive [facility] pH, UA 5.5 5 - 9 [facility] Protein, UA Trace Negative - 1999(20) ++++ mg/dL [facility] Spec Grav, UA 1.03 1 - 1.03 [facility] Urobilinogen, UA 0.2 0.2 - 12 mg/dL [facility] ALL CBC WITH AUTO DIFFon BASOPHILS ABSOLUTE AUTO 0 [facility] Basophils/100 WBC (Bld) 0.3 % 0.2 - 2.0 % [facility] Eosinophils/100 WBC (Bld) 1 % 0.9 - 7.0 % [facility] Erythrocyte distribution width (RBC) [Ratio] 13.2 % 11.0 - 15.0 % [facility] Hematocrit (Bld) [Volume fraction] 32.6 % Low 36.0 - 48.0 % [facility] Hemoglobin (Bld) [Mass/Vol] 11.3 g/dL Low 12.0 - 16.0 g/dL [facility] IMMATURE GRANULOCYTES ABS AUTO 0.07 High [facility] Immature granulocytes/100 WBC (Bld) 0.9 % High 0.0 - 0.5 % [facility] Interpretation and review of laboratory results Abnormal [facility] LYMPHOCYTES ABSOLUTE AUTO 1.6 [facility] Lymphocytes/100 WBC (Bld) 19.6 % Low 20.5 - 60.0 % [facility] MCH (RBC) [Entitic mass] 30.4 pg 26.7 - 34.0 pg [facility] MCHC (RBC) [Mass/Vol] 34.7 g/dL 29.9 - 35.2 g/dL [facility] MCV (RBC) [Entitic vol] 87.6 fL 81.0 - 99.0 fL [facility] MONOCYTES ABSOLUTE AUTO 0.6 [facility] Monocytes/100 WBC (Bld) 8 % 1.7 - 12.0 % [facility] NEUTROPHILS ABSOLUTE AUTO 5.6 [facility] Neutrophils/100 WBC (Bld) 70.2 % 43.0 - 75.0 % [facility] Platelet mean volume (Bld) [Entitic vol] 9.7 fL 9.5 - 13.5 fL [facility] EO # 0.1 [facility] PLT 400 [facility] RBC 3.72 Low [facility] WBC 8 [facility] Basophils Auto (Bld) [#/Vol] on 08-05-2024 Basophils (Bld) [#/Vol] Automated basophil count 0.0-0.1 [facility] Basophils/100 WBC Auto (Bld) on 08-05-2024 Basophils/100 WBC (Bld) Automated basophil % 0.2-2.0 [facility] Eosinophils/100 WBC Auto (Bl d)on 08-05-2024 Eosinophils/100 WBC (Bld) Automated eosinophil % 0.9-7.0 [facility] Erythrocyte distribution wid th Auto (RBC) [Ratio]on 08-05-2024 Erythrocyte distribution width (RBC) [Ratio] Erythrocyte distribution width [Ratio] by Automated count 11.0-15.0 [facility] Hematocrit Auto (Bld) [Volum e fraction]on 08-05-2024 Hematocrit (Bld) [Volume fraction] Hematocrit [Volume Fraction] of Blood by Automated count Low 36.0-48.0 [facility] Hemoglobin [Mass/volume] in Bloodon 08-05-2024 Hemoglobin (Bld) [Mass/Vol] Hemoglobin [Mass/volume] in Blood Low 12.0-16.0 [facility] Laboratory - Hematology and Cell countson 08-05-2024 Immature granulocytes/100 WBC (Bld) 0.9 % High 0.0-0.5 [facility] Leukocytes [#/volume] correc lisha for nucleated erythrocytes in Blood by Automated counon 08-05-2024 WBC corrected for nucl RBC Auto (Bld) [#/Vol] Leukocytes [#/volume] corrected for nucleated erythrocytes in Blood by Automated coun 4.0-11.0 [facility] Lymphocytes Auto (Bld) [#/Vo l]on 08-05-2024 Lymphocytes (Bld) [#/Vol] Lymphocytes [#/volume] in Blood by Automated count 1.2-3.8 [facility] Lymphocytes/100 WBC Auto (Bl d)on 08-05-2024 Lymphocytes/100 WBC (Bld) Lymphocytes/100 leukocytes in Blood by Automated count Low 20.5-60.0 [facility] MCH Auto (RBC) [Entitic mass ]on 08-05-2024 MCH (RBC) [Entitic mass] MCH [Entitic mass] by Automated count 26.7-34.0 [facility] MCHC Auto (RBC) [Mass/Vol]on 08-05-2024 MCHC (RBC) [Mass/Vol] MCHC [Mass/volume] by Automated count 29.9-35.2 [facility] MCV Auto (RBC) [Entitic vol] on 08-05-2024 MCV (RBC) [Entitic vol] MCV [Entitic volume] by Automated count 81.0-99.0 [facility] Monocytes Auto (Bld) [#/Vol] on 08-05-2024 Monocytes (Bld) [#/Vol] Automated blood monocyte count 0.3-0.8 [facility] Monocytes/100 WBC Auto (Bld) on 08-05-2024 Monocytes/100 WBC (Bld) Automated monocyte % 1.7-12.0 [facility] Neutrophils Auto (Bld) [#/Vo l]on 08-05-2024 Neutrophils (Bld) [#/Vol] Neutrophils [#/volume] in Blood by Automated count 1.4-6.5 [facility] Neutrophils/100 WBC Auto (Bl d)on 08-05-2024 Neutrophils/100 WBC (Bld) Automated neutrophil % 43.0-75.0 [facility] No Panel Informationon 08-05 Eosinophils # (Auto) 0.1 10 3/uL 0.0-0.[address] [facility] Immature Granulocyte # (Auto) 0.07 10 3/uL High 0.00-0.03 [facility] Platelet mean volume Auto (B ld) [Entitic vol]on 08-05-2024 Platelet mean volume (Bld) [Entitic vol] Platelet mean volume [Entitic volume] in Blood by Automated count 9.5-13.5 [facility] Platelets Auto (Bld) [#/Vol] on 08-05-2024 Platelets (Bld) [#/Vol] Platelets [#/volume] in Blood by Automated count 150-450 [facility] RBC Auto (Bld) [#/Vol]on RBC (Bld) [#/Vol] Erythrocytes [#/volume] in Blood by Automated count Low 4.20-5.40 [facility] Urinalysis macro (dipstick) panel (U)on 06-22-2024 Bilirubin, UA Negative Negative - 4(70) +++ mg/dL [facility] Blood, UA Negative Negative - 50 Jimy/mcL [facility] Clarity, UA Clear [facility] Color, UA Yellow [facility] Glucose, UA Negative Negative - 2000(110) ++++ mg/dL [facility] Interpretation and review of laboratory results Abnormal [facility] Ketones, UA Positive Negative - 160(16) ++++ mg/dL [facility] Comment on above: 15 Leukocytes, UA Positive Negative - 500+++ Mychal/mcL [facility] Comment on above: small Nitrite, UA Negative Negative - Positive [facility] pH, UA 5.5 5 - 9 [facility] Protein, UA Trace Negative - 2000(20) ++++ mg/dL [facility] Spec Grav, UA 1.03 1 - 1.03 [facility] Urobilinogen, UA 0.2 0.2 - 12 mg/dL [facility] IGP,APTIMA HPV,AGE GDLNon AGE GDLN ACOG TESTING Note . [facility] Comment on above: TESTS RESULT FLAG UN ITS REF RANGE LAB Clinician Provided Cytology Information Source.............Cervix Other.............. No. of containers..01 ThinPrep Vial Age Algo ACOG Michelle... -25 08 FLAG LEGEND: L-Low Normal,H-High Normal,LL-Alert Low,HH-Alert High <-Panic Low,>-Panic High,A-Abnormal,AA-Critical Abnormal Performed at: 01 [facility] [address] [place] [address] Mar Rivera MD, IGP, RFX APTIMA HPV ASCU Note . [facility] Comment on above: TESTS RESULT FLAG UN ITS REF RANGE LAB DIAGNOSIS: 02 NEGATIVE FOR INTRAEPITHELIAL LESION OR MALIGNANCY. FUNGAL ORGANISMS MORPHOLOGICALLY CONSISTENT WITH CARLOS SPECIES ARE PRESENT. Specimen adequacy: 02 Satisfactory for evaluation. No endocervical component is identified. An endocervical component is not commonly seen in the patient. Performed by: Judy Vera, Timber Deadener ([facility]) . 02 Note: Note 02 [...] <-Panic Low,>-Panic High,A-Abnormal,AA-Critical Abnormal Performed at: [address] [address] Mar Rivera MD, Performed at: =[address] [id number] Manager Motor: Mar Rivera MD, Phone: [phone] Performed at: [address] [id number] Manager Motor: Mar Rivera MD, Phone: [phone] SP[facility]ULA[facility]ONE [facility] AFP, SERUM, OPEN SPINA BIFID Aon 05-30-2024 AFP MOM 1.36 . [facility] AFP VALUE 55.4 ng/mL . [facility] COMMENT: Comment . [facility] Comment on above: Ivet Mobley , Ph.D., [facility] Director References: Available Upon Request. Multiples Of Median Cutoffs For AFP Elevations Del Rosario 2.5 Black 2.8 IDD 2.0 Twins 4.5 Abbreviation Definitions IDD - Insulin Dep Diabetes OSBR - Open Spina Bifida Risk For further inquiries contact [facility] at [phone]. This test was developed and its performance characteristics determined by [facility]. It has not been cleared or approved by the Food and Drug Administration. Performed at: [facility] [address] [place], [place] [id number] Manager Motor: Kristina Carter [facility], Phone: [phone] GEST. AGE ON COLLECTION DATE 18.6 . weeks [facility] GESTAT. AGE BASED ON LMP . [facility] Comment on above: Recalculations are n ot recommended when gestational dating by LMP and ultrasound are within 10 days. INSULIN DEP DIABETES No . [facility] INTERPRETATION Comment . [facility] Comment on above: Interpretation: Scre en [...] Customer Services to discuss available options. The [place] [employer] recommends amniocentesis be offered to women age 35 and older. MATER[age] AT SARA [age] [facility] MULTIPLE GESTATION No . [facility] OSBR RISK 1 IN 4034 . [facility] RACE . [facility] RESULTS Report . [facility] TEST RESULTS: Negative . [facility] WEIGHT 185 . lbs [facility] N N LMP [id number] 4 18 N 1 Y 185 N N N N N White/ [facility] Urinalysis macro (dipstick) panel (U)on 04-27-2024 Bilirubin, UA Positive Negative - 4(70) +++ mg/dL [facility] Comment on above: small Blood, UA Negative Negative - 50 Jimy/mcL [facility] Clarity, UA Clear [facility] Color, UA Yellow [facility] Glucose, UA Negative Negative - 1999(110) ++++ mg/dL [facility] Interpretation and review of laboratory results Abnormal [facility] Ketones, UA Positive Negative - 160(16) ++++ mg/dL [facility] Comment on above: trace Leukocytes, UA Positive Negative - 500+++ Mychal/mcL [facility] Comment on above: small Nitrite, UA Negative Negative - Positive [facility] pH, UA 6.0 5 - 9 [facility] Protein, UA Negative Negative - 1999(20) ++++ mg/dL [facility] Spec Grav, UA 1.030 1 - 1.03 [facility] Urobilinogen, UA 0.2 0.2 - 12 mg/dL [facility] ALL CBC WITH AUTO DIFFon BASOPHILS ABSOLUTE AUTO 0.0 [facility] Basophils/100 WBC (Bld) 0.1 % Low 0.2 - 2.0 % [facility] Eosinophils/100 WBC (Bld) 0.9 % 0.9 - 7.0 % [facility] Erythrocyte distribution width (RBC) [Ratio] 13.0 % 11.0 - 15.0 % [facility] IMMATURE GRANULOCYTES ABS AUTO 0.03 [facility] Immature granulocytes/100 WBC (Bld) 0.3 % 0.0 - 0.5 % [facility] Interpretation and review of laboratory results Abnormal [facility] LYMPHOCYTES ABSOLUTE AUTO 2.3 [facility] Lymphocytes/100 WBC (Bld) 26.6 % 20.5 - 60.0 % [facility] MCH (RBC) [Entitic mass] 30.1 pg 26.7 - 34.0 pg [facility] MCHC (RBC) [Mass/Vol] 34.6 g/dL 29.9 - 35.2 g/dL [facility] MCV (RBC) [Entitic vol] 87.0 fL 81.0 - 99.0 fL [facility] MONOCYTES ABSOLUTE AUTO 0.4 [facility] Monocytes/100 WBC (Bld) 4.1 % 1.7 - 12.0 % [facility] NEUTROPHILS ABSOLUTE AUTO 5.9 [facility] Neutrophils/100 WBC (Bld) 68.0 % 43.0 - 75.0 % [facility] Platelet mean volume (Bld) [Entitic vol] 9.6 fL 9.5 - 13.5 fL [facility] EO # 0.1 [facility] PLT 400 [facility] RBC 4.55 [facility] WBC 8.7 [facility] CBC without diffon Rbc Mcv (Fl) By Automated Count 87 [facility] - Hematology and Cell countson 04-08-2024 Hematocrit (Bld) [Volume fraction] 39.6 % [facility] Hemoglobin (Bld) [Mass/Vol] 13.7 g/dL [facility] No Panel Informationon 04-08 [facility] Rubella IGG immune statuson 04-08-2024 Rubella immune IgG 2.32 [facility] Syphilis Total(Unknown Syphi lis Status)on 04-08-2024 Syphilis Non-Reactive [facility] Type and screenon 04-08-2024 Abo/Rh(D) Positive [facility] HCG ( test) Ql (U)o n 03-27-2024 Interpretation and review of laboratory results Abnormal [facility] Preg Test, Ur Positive [facility] Urinalysis macro (dipstick) panel (U)on 03-27-2024 Bilirubin, UA Negative Negative - 4(70) +++ mg/dL [facility] Blood, UA Negative Negative - 50 Jimy/mcL [facility] Clarity, UA Clear [facility] Color, UA Yellow [facility] Glucose, UA Negative Negative - 2000(110) ++++ mg/dL [facility] Interpretation and review of laboratory results Normal [facility] Ketones, UA Negative Negative - 160(16) ++++ mg/dL [facility] Leukocytes, UA Negative Negative - 500+++ Mychal/mcL [facility] Nitrite, UA Negative Negative - Positive [facility] pH, UA 5.5 5 - 9 [facility] Protein, UA Negative Negative - 1999(20) ++++ mg/dL [facility] Spec Grav, UA 1.025 1 - 1.03 [facility] Urobilinogen, UA 0.2 0.2 - 12 mg/dL [facility] PROGESTERONEon 07-27-2022 Progesterone 26.9 ng/mL Normal [facility] Comment on above: Result Comment: Foll icular phase 0.1 - 0.9 Luteal phase 1.8 - 23.9 Ovulation phase 0.1 - 12.0 First trimester 11.0 - 44.3 Second trimester 25.4 - 83.3 Third trimester 58.7 - 214.0 Postmenopausal 0.0 - 0.1 Performed By: #### P BRETT #### [facility] [address] [place] [address] Dr. Ryan Francisco PREG QUANT HCGon 07-12-2022 HCG QUANT <1 Normal [facility] Comment on above: Performed By: #### P REGQNT #### [facility] [address] [place] [address] [address] Ryan Francisco HCG RANGE SEE BELOW Normal [facility] Comment on above: Result Comment: 5-50 0.2-1 WEEK 50-500 1-2 WEEKS 100-5,000 2-3 WEEKS 500-10,000 3-4 WEEKS 1,000-50,000 4-5 WEEKS 10,000-100,000 5-6 WEEKS 15,000-200,000 6-8 WEEKS 10,000-100,000 2-3 MONTHS Performed By: #### P REGQNT #### [facility] [address] [place] [address] Dr. Ryan Francisco XR HYSTEROSALPINGO EXPon XR [...] by: CLEMENTINE DEWEY Date: 2022-07-12 12:34 Normal [facility] PROGESTERONEon 06-29-2022 Progesterone 4.6 ng/mL Normal [facility] Comment on above: Result Comment: Foll icular phase 0.1 - 0.9 Luteal phase 1.8 - 23.9 Ovulation phase 0.1 - 12.0 First trimester 11.0 - 44.3 Second trimester 25.4 - 83.3 Third trimester 58.7 - 214.0 Postmenopausal 0.0 - 0.1 Performed By: #### P BRETT #### [facility] [address] [place] [address] Dr. Ryan Francisco PROGESTERONEon 06-01-2022 Progesterone 18.9 ng/mL Normal [facility] Comment on above: Result Comment: Foll icular phase 0.1 - 0.9 Luteal phase 1.8 - 23.9 Ovulation phase 0.1 - 12.0 First trimester 11.0 - 44.3 Second trimester 25.4 - 83.3 Third trimester 58.7 - 214.0 Postmenopausal 0.0 - 0.1 Performed By: #### P BRETT #### [facility] [address] [place] [address] Dr. Ryan Francisco US PELVIS AND TRANSVAGon [...] by: CLEMENTINE DEWEY Date: 2022-05-17 17:25 Normal [facility] PROGESTERONEon 04-29-2022 Progesterone 5.1 ng/mL Normal [facility] Comment on above: Result Comment: Foll icular phase 0.1 - 0.9 Luteal phase 1.8 - 23.9 Ovulation phase 0.1 - 12.0 First trimester 11.0 - 44.3 Second trimester 25.4 - 83.3 Third trimester 58.7 - 214.0 Postmenopausal 0.0 - 0.1 Performed By: #### P BRETT ####[facility] [id number] [place] [id number]. Ryan Francisco ANTI-MULLERIAN HORMONEon Anti-Mullerian Hormone (AMH) 6.09 ng/mL Normal [facility] Comment on above: Result Comment: For assays employing antibodies, the possibility exists for interference by heterophile antibodies in the samples.1 1.Steffen Peguero. Interferences in Immunoassays - still a threat. Clin. Chem. 2000; 46: 3087-4133. This test was developed and its performance characteristics determined by [employer]. It has not been cleared or approved by the Food and Drug Administration. Reference Range: Females 20 - 25y: 1.23 - 11.51 Median 4.70 AMH concentrations of >= 1.06 ng/mL is correlated with a better response to ovarian stimulation, produced more retrievable oocytes and higher odds of live according to Larry et al. Fertility and Sterility. 2010: [id number]:3844-4310. The current AMH test method correlates with [...] tumor. Performed By: #### A WEI #### [facility] [address] [place] [address] Dr. Ryan Francisco FSHon 04-05-2022 FSH 3.6 mIU/mL Normal [facility] Comment on above: Result Comment: Adul t Female: Follicular phase 3.5 - 12.5 Ovulation phase 4.7 - 21.5 Luteal phase 1.7 - 7.7 Postmenopausal 25.8 - 134.8 Performed By: #### [facility] #### [facility] [address] [place] [address] Dr. Ryan Francisco LUTEINIZING HORMONE (LH)on 0 04-05-2022 LH 6.8 mIU/mL Normal [facility] Comment on above: Result Comment: Adul t Female: Follicular phase 2.4 - 12.6 Ovulation phase 14.0 - 95.6 Luteal phase 1.0 - 11.4 Postmenopausal 7.7 - 58.5 Performed By: #### L [facility] ####[facility] [id number] [address]Dr. Ryan Francisco CBC AUTO DIFFon 04-04-2022 BASO # 0.0 103/ul Normal 0.0-0.1 [facility] Comment on above: Performed By: #### C BC #### [facility] [address] [place] [address] Dr. Ryan Francisco Basophils/100 WBC (Bld) 0.3 % Normal 0.2-2.0 [facility] Comment on above: Performed By: #### C BC #### [facility] [address] [place] [address] Dr. Ryan Francisco EO # 0.1 103/ul Normal 0.0-0.7 [facility] Comment on above: Performed By: #### C BC #### [facility] [address] [place] [address] Dr. Ryan Francisco Eosinophils/100 WBC (Bld) 1.7 % Normal 0.9-7.0 [facility] Comment on above: Performed By: #### C BC #### [facility] [address] [place] [address] Dr. Ryan Francisco Erythrocyte distribution width (RBC) [Ratio] 12.7 % Normal 11.0-15.0 [facility] Comment on above: Performed By: #### C BC #### [facility] [address] [place] [address] Dr. Ryan Francisco Hematocrit (Bld) [Volume fraction] 39.7 % Normal 36.0-48.0 [facility] Comment on above: Performed By: #### C BC #### [facility] [address] [place] [address] Dr. Ryan Francisco Hemoglobin (Bld) [Mass/Vol] 13.4 g/dL Normal 12.0-16.0 [facility] Comment on above: Performed By: #### C BC #### [facility] [address] [place] [address] Dr. Ryan Francisco IG # 0.03 10e3/ul Normal 0.00-0.03 [facility] Comment on above: Performed By: #### C BC #### [facility] [address] [place] [address] Dr. Ryan Francisco IG % 0.5 % Normal 0.0-0.5 [facility] Comment on above: Performed By: #### C BC #### [facility] [address] [place] [address] Dr. Ryan Francisco LYMPH # 1.6 103/ul Normal 1.2-3.8 [facility] Comment on above: Performed By: #### C BC #### [facility] [address] [place] [address] Dr. Ryan Francisco Lymphocytes/100 WBC (Bld) 27.1 % Normal 20.5-60.0 [facility] Comment on above: Performed By: #### C BC #### [facility] [address] [place] [address] Dr. Ryan Francisco MANUAL DIFF REQ NO Normal [facility] Comment on above: Performed By: #### C BC #### [facility] [address] [place] [address] Dr. Ryan Francisco MCH (RBC) [Entitic mass] 29.6 pg Normal 26.7-34.0 [facility] Comment on above: Performed By: #### C BC #### [facility] [address] [place] [address] Dr. Ryan Francisco MCHC (RBC) [Mass/Vol] 33.8 g/dL Normal 29.9-35.2 [facility] Comment on above: Performed By: #### C BC #### [facility] [address] [place] [address] Dr. Ryan Francisco MCV (RBC) [Entitic vol] 87.6 fL Normal 81.0-99.0 [facility] Comment on above: Performed By: #### C BC #### [facility] [address] [place] [address] Dr. Ryan Francisco MONO # 0.4 103/ul Normal 0.3-0.8 [facility] Comment on above: Performed By: #### C BC #### [facility] [address] [place] [address] Dr. Ryan Francisco Monocytes/100 WBC (Bld) 6.7 % Normal 1.7-12.0 [facility] Comment on above: Performed By: #### C BC #### [facility] [address] [place] [address] Dr. Ryan Francisco NEUT # 3.7 103/ul Normal 1.4-6.5 [facility] Comment on above: Performed By: #### C BC #### [facility] [address] [place] [address] Dr. Ryan Francisco Neutrophils/100 WBC (Bld) 63.7 % Normal 43.0-75.0 [facility] Comment on above: Performed By: #### C BC #### [facility] [address] [place] [address] Dr. Ryan Francisco Platelet mean volume (Bld) [Entitic vol] 9.9 fL Normal 9.5-13.5 [facility] Comment on above: Performed By: #### C BC #### [facility] [address] [address] [address] Ryan Francisco PLT 421 103/ul Normal 150-450 [facility] Comment on above: Performed By: #### C BC #### [facility] [address] [address] [address] Ryan Francisco RBC 4.53 106/ul Normal 4.20-5.40 [facility] Comment on above: Performed By: #### C BC #### [facility] [address] [address] [address] Ryan Francisco WBC 5.8 103/ul Normal 4.0-11.0 [facility] Comment on above: Performed By: #### C BC #### [facility] [address] [address] [address] Ryan Francisco FREE T4on 04-04-2022 Free T4 [Mass/Vol] 0.99 ng/dL Normal 0.76-1.46 [facility] Comment on above: Performed By: #### F T4 #### [facility] [address] [address] [address] Ryan Fracnisco TSHon 04-04-2022 TSH 3.086 uIU/mL Normal 0.358-3.740 [facility] Comment on above: Performed By: #### T SH ####[facility] [address] [address]Dr. Ryan Francisco US PELVIS AND TRANSVAGon US [...] by: LUCHO MIXON Date: 2022-04-04 16:38 Normal [facility] Auth for Release of Medical Recordson 12-20-2021 Auth for Release of Medical Records [id number]# 1.00CD:127 Normal [facility] Coding Summary.on 08-22-2021 Coding Summary. CD:[id number] Gh0bWw+PGhlYWQ+PE1FV QDqJ17fiXPusK4KH8rRK D5WMIZEDGIIBB5EYB9xq TR2KVedE5GaleDn CqpybACsHW45QGl6JTF6 zFpcTTnfnW8glXBwM8i9 LiUsWD37dZ79GCuyWQEl NoN9WiNchiehnFBx Y5giZfUbbXBjSms+PHRh YmxlIHdpZHRoPScxMDAl PxCesAibPF0tGq0bGLUd LWNvbGxhcHNlOiBj i3tqTLWmOVqgII6hmVnu J8EusKU5DIPxn6t6Zd74 dHI+ZIYnHER2bCwfYWut z960QwSse2kzEGN0 uBCpGGfrRMS1K57gm7G8 XSDrCNJpNHK4pEE3nU8e xTaifesiS4TwgTQaSzK0 JFS4gFLleP1obKhd cmfpvL0oDoe+D88SVK7V ZHRHKW0IFak7Y0UeViij dHI+DP20IUGsEX12uYWh bZHwq3pixEa6PbSe NIKnOKK2zSlmRCywt5Sc VESrN59dmNQto0D8EGOp zRaecNBjFcMdhCC2xC2p OLdamrryd3hwdyky Ljrsf7qytg82wM04H61k QCuaKJCpLYH3ONHdZPGo pBhlnl2kfW8uDf9+IDxj f7son3xprUs8OhCp ELUnfySmrPpgLNZ0w5Su Eh21L6HmyOifp1DtBxd8 wn20yUPml5J9sQM1EEiq OEGwmK9uCHecBhX3 XJTaNzZozR08tYLmMMwc Ib8nnDnrqHfhGW2iQFIl zvkwVFVpnM1xYTMyrAVh jGnjMT1sWDAfmbim q006JbNaLKD2YELynRId W2FjhE8cMmOzWQAgPCRc Q7OwfZCdYTmnS810WXlp VmP7KIKtpwOrT7Ss SETkrYwzVrA3t9D4Yv3B q2SfbwcaXXY8ICenFQXd LxN2XrKoIgK1Z7CyYox2 XGHlhQmsRN3uH5Hp RJBsajyfjeigjRU8MIZq QXResO06vEKgIRpwCr7q p2M2l562PCMhBFVgbA52 Ip2iqClsEJZehDLQ zG0uqsync5gynrbfSmOk EJCgPEb6WUs5MXGfuNbg AuWuPLC5BnX4ALB1dERz rZ3jbGriukmxwF6c Oyc+B76abH5pMMC6PGG4 mtwgMKOkfsMgEN75GU47 J8GoBrexkUHyuOT+PGRp rdDfaBfcGF1eCjSn a8rhq2GwJJklG8ZvQXIf CDejHgh7UCUnJGV6nXR6 zY3eDDNsMKdex9Y0gVT2 Z5CbgmAvha8ir9rw ECLvKMswE97hmSYcr2J2 DJTbbXW1SYDffFlkRgFn yH12Rvy+INDepWouc8Wj Wcmjk8oow5fruQe3 IjMwJSIgdmFsaWduPSJ0 l1KcAt63W18cISpaOKDe DDIfXHXiSICrhErgen3z nQ3zYb5+PGNvbCB3 wOO8bK6uYJInFtE2ULzb M875DgLdzULwIofmo3ex i8dgvVq0AeGoLZPtinDk iUlhQXG3g0MjPd19 E63hHSeuYTTgUHRlLPUd FYHykOvwci5gwS3yEt3+ UB2ra3jiqk23cA05qLT+ FLItMRO5xUkiQHpy TYGobX9pUBaxArE5QKUy DdBcuC04fYZmPHvmHf5p vBkzkGhoHH6sSBLypqjj k845PcKbo7jcHNPj zDBkENwiUNG8O03ru6O8 BVOtTLGlPSU8fYC5nV3w bGlnbjogbGVmdDsgdmVy aXrtTKdwSThnQ033 IHRvcDsnPlBhdGllbnQg ZzOsWKi3M7AaVtz5PEPl ySjfUU4gzMCwLOfbBk2v cKeyoOqkXL6tXRQr ctktu158MpVba4jgMWSh bLUmFPpePUM8B04ww8Q6 PORgAKIiURD1gIQ1tH3x bGlnbjogbGVmdDsg piOniImpWWuzVEjrL887 IHRvcDsnPkJpcnRoIERh dSQ8BI77MW48qGMew6G8 cGV7K9LrZZZrpmgm ndtjzQF3UFJxHNOtqZ62 Fe2pxDvlIx6sOHNhAJY9 SHNwhBSmM2KiiK7nXcDs PBKnXGJxN8GivTMl APxyG088HVzfXvK3BOWq ylUoM1HrWOBhdQgkNdP3 f5X1Ei5OK5V5ED40YZ35 lOWkv2W9kWQ1Q5Kl KTCunqsuogwbmJV3QGQp URMrlZ51Up1ieBqpGl6x TOHmDKF5HLHgdDBwT6Yj tG2aUqIvSSHeXGIp I5UenILkHApeO541GZzl ZvN7QPFewsRjL5RtCSYj bBbjAtZ5n1Q4Jp8TJZe7 NP77FN60gURbj5D4 uJI1J1LxMUVowjixbkan bDK3GFZsFJRypK66Hw9a gIvuSl1iHMZzVVB4CEKx qMVgB6FbhG7wXcJy QQDoGSKsM8FnbEVnQMvw V846IUpwGpD8ZORjtbBd M8UoGXOpdKvkRfN6e3G0 Dl2LNBFyAU91TXB7 hZR9EZ96RA80B8DgAxxl dGFibGU+PHRhYmxlIHdp ZHRoPScxMDAlJyBzdHls AY6bGm3zSVYhTHYh uLokpFKmVjZtq5zlCDXz PNazRC7ivGqsH4YsiJI4 WWUtf9m3Sa33H96oT9Dp dXA+EUAcbMI4rID5 hE2cIyLfNiY2CIyzW140 GfNodJKoCrxcm6iwh4lz eUv9IrT3GWBpzgNziGmj IGB6f2IgLs56N48v IHdpZHRoPSIxNSUiIHZh fMidyk2fmM2jVd9+PGNv aZU7cTV9pF4oFuIkOpH3 CZeuW282QqPowMWc Aphjs6avv7uhdSb1QsDy DJXsutJwwBmaEWH2b4Kz Fx05Q6RxbUjge4McQkd2 qk14vQUkb6E2dNN4 H3YjEIBfzhydpXIhyTck BM9sTDBdjrxwXQXjyH0l AJSkB7p3XtArFtV0JYim C6YxblZ3POOolBXp YNqzLHG7T72et8R5HBFm DSZbMVF6yLE0vX5hvNfo bjogbGVmdDsgdmVydGlj KQbyMLbeY973ZVZz eJfjYRNslZ1vAPSkpDIv lBgvWT9lEZEpojddPeaG TRGrRLmFALEJKL15CL23 eFOeh0C7nGI8R9Uq MEWriqdxvukrhKT6SFUx CWCwsX71kRUuRIeaTa8z k1B5k713EQQpBTUeyP34 Ih7ywRlsICOdgVWP gB1ydbflc3kyefdxFvKi KQQnOSr9IDl9XVRrsVow BaWjLHY4VkX1LTY0sKJl xS9iiCnlbfepoH2w Oyc+LAXpPfmyTWh8HQgn dGQ+ZWNgLXL5hEhpZLzl MOMrxF7rTVOhL7s6WeNy NlY1WXwjZ9YcWZZp elbjXk73aO7aLjTqTnA1 ESydP6CfqdD9FQIlcWTb BEgxHLQ9Q95vz1T0YBOy VCLnIRX7kYR2lG0b bGlnbjogbGVmdDsgdmVy gVruTHwpRDuuL300XFMr cWkcRsOzYOqeAZBpOV67 DZ49hJIjh9B6vSF3 K7QpBLWrwjddbavnjSG6 SYVnBSFugA18sNIiYWte Sq4bh6P2w431ZFGjYKRs yT26Hm2reBzjWTQk rUZKgI8beqbnw4aigkcq BnSoNGFzMVe5RKr3MATy lUmtItTbYRX5KkE5RHD1 hKWhmF0lsRbyfrmx mW1jMmy+LyYwZYweOU96 LY06pUYzo9X1dPW0P3Br VDSokbqyyhaugAS4NCUq ZZKwaU56oUIhRFmn Zw1hd1F2c416HSZuXPDo wI98Fu1ipWulOXCquXKX fL0lltzlp3zdxgyjJoFh KCNsVXi3SLc3OHFl lLosXfKzZBP8SuW1ZXW5 eNUngV3uyYibvwqfxH9k Oyc+J9X3dWT5tVOrcFqu dGQ+VI24zk65R4Ni AfbhOko1RJCxOOL2fNT2 cB5sSABuRFaiv2B0dFV0 Y0CeobHafn9yw8jlHASn XOheE55lzCUki5N6 ZBBvrHO6RXAocEnfIeCx hM82Efh+WNUefSkrk6Zp Ggnbw9cfb2hwcXm5HnMe JSIgdmFsaWduPSJ0 o7KnGc47M86lPUcaIZBq UVWaBWIqUBNkrAqjqb3p bK5oIw7+KZRorZW4jJP5 vL2zFlBdCxC9RFzo B455QcRpaCRzGieno2hy l4geiGl5YzAxQLHgftLq fRkdRKL4j0KnTc84Z1Yq zSvct7EfEga5co84 qPEun6N3nDF8R8FtLSHy whwrlLSvvLfjWN7vBJXm dgyhVJNogP5iOVIjF0f5 IySgBlZ3NXqbX6Vs jeA4SSIrdFQbLIZznLGV lA4qcpesi3rlmuycGuVg VCTpTLh7WAj4ENRmxFri XnWmZDT4EcJ3VAV0 bOCpaA3rsZznkwvhtG3t Oyc+TEb7y6azaDEcHT2l lRL9TI56BW33qAFlu4C2 wSK1E9BrBVZbadpc kghkeSF0PIZrNHTtjR97 Lw5ejEfxTh5qEWMdVBX5 UEIdqPIcZ0IpyK3nFkRz XIDpEKGrS2FyfLBm FReqU947UBuoWxP9QKAo pgGtQ2KxXRElnFitVeI7 n2A1Io9OGL95AA70II92 qLIdl6S1uPE8F6Oo NTIezsknkwqikNP9DETd CWPfeV40Lu2iqFssJb7d LLEnFXC7HOGyoDErY2Ue xL9qKcUqPKMiUZOw N9NjjSYrEVjyO197VLgp DmF1WJOxxuZdK5DcNXMq tClzApD3c2F1Wl1ZIz45 JU52KH06kBKjk3X1 lTO1A9TpJMWvnvjzkdpm dYY0IHWkQUJtvV72Qf5t wDnwSv5lBLBnYSA5QTZu uHMvG7XgwD2fIvUk KPLjMHFrE7OjbIOtLOhe K324PDkmVmO5OIYrtlEf Z7PcUTIjlOfxRqF6i3F0 Xj6ZMOparww7F5Gv PjwvdHI+LE52LWQsYB87 wAYeuZOyh4ebcCm4WqWf EJWlNYX5rQdcHLqyv1Uf YMVwY56phCNtr7R7 IGNv (more content not included)... Normal [facility] Coding Summary. CD:[id number] Gh0bWw+PGhlYWQ+PE1FV IXqL25brRDmaJ9EW0rKO G8KERNEWPWXOP5BKV5vo YW6FAxyD0CuybSg RfzetVAiTG64WCq2AOA3 lOkfQGwnlP9kzIXsM3o0 YyGmQL98cQ00BNcbFCJy JlM4LuYvepvboQBm S7lxMuZfyZVwUtc+PHRh YmxlIHdpZHRoPScxMDAl KnPpwNqzAG1eEs1qQLDm LWNvbGxhcHNlOiBj r9rlEUWiCMtcQR4inWhp Q5WzpDK1YQWyl2z1Nr16 dHI+IHUmPTY6vIazWNfk d443CcLup3kjNLX3 lDEfDPskWRY2X28wr7A6 UWTrFOJvLXN4xWR1iX6b mTaieweiP8EroZBsOeW8 PFP2iQNtcM2kqYmg ovntrA9dTlu+K47JNF0Y YYEVQA2AFgn5J3QsQtob dHI+IL89JGElTM31tFFt zDXis9cnsJq1GvQg CQDtQQG3tWsdBNbzm4Zx NLBpM18vpFHph4N3KLAs iQhlbGIyOuTysYO5sS5h NOiktkuch7pysotj Yrfbz9xqir72iX19D74z LGlmJUCaCDW5GMZfVNKw sNbwmq0wjV7zYm5+IDxj w5vuv0nmcFk9CvRa FPDzxwQknBcnJTC1h0Wx Ks55B3QeyZaxl1BzLos8 cn98pDDnk6I6fDA6VOpt KGWeaZ7qGDsrLoA7 LCZrKjPtqR99fWQeYUdk Or9iwJbuoRooUB0aRGGg hjzvKTDbxC9hHIIxlFEp yEobBK2aFKPqzshw c981QdEsKGF0VCYuzPXh I3IcnG8pFtDrNOJgIIAn E9RhnFBaSMmwC986QOwz BpZ9TUZmswCiA4Ob NOMhtGeiHiJ2k2R4Jm5X y8AshemcYPZ3YOryPGEp YjH4OpTmVpP3I2JnBlv1 UQObcLiuHO8xK1Jw HIJsagqhasvqhBJ0PNVf XRXfvD62pGTwVXnoQu0g u3X2p332BFEpPQAszD85 Xv0opMwbGUZloZKK fI7pjbeti6fmwryeLjGl YGAmWRp2NCl7FVPraZxy UrPyRFF6AzJ3WJC2sQNn qD7jqMaemubomR1z Oyc+V90mbR1fXJK9IMB9 vcjmISUfhpCwLN26ZS09 B6RpYynasQIolSS+PGRp rtGlqEnkDC5tVdPh a3fju9VeLQjzD0KsNTHb GVccKtt3IXAwWUR7cPM9 cU0bYZArLPzqx7Z5lLK6 V1HnqlYnwe3we4ya NMNcKObyT40vwTCor3M8 VSKcmVZ3DJWupCetYkRk fQ57Enf+FQBvvZirt1Oj Xyuih4vxc3kwuFa0 IjMwJSIgdmFsaWduPSJ0 e9GkJc90Z54aLDngIEXc BDDzOZBqQURaoZkgxn7s oA1uBh4+PGNvbCB3 kED8jC2oRIUoZdF9AOit K853JlQewXEmPtkkf1bt d8gasPt1QsZyNYXymmCe oZnfCIB4c5AiDf93 L74dRGppWCNmVLWlVGHr ITStpOlrei8yeJ7cZq7+ AN6zl4ksbh95mI21jME+ WAZtBUF0yUjoJXyu QJTwmC6xXNrqNyL2EISo QcWvlV74bCKeYJejPv5d tEolxBinAT3lKCHtzekk n863LpRcm5zoLBPo iLOuGUobZRR1B19xu0O4 TZGjTPAyYVH0lXM1xJ3d bGlnbjogbGVmdDsgdmVy rStqXFsxFTdsL220 IHRvcDsnPlBhdGllbnQg UwUjDSx6Q0JjPpu3UBJb qRdfNM8bnEPvPGuiJf6b yNzidAbmSX4lYUUr cyuvq071PsCzi7izXXXc wDCaYBfyZOW9Z47ad3L9 WGMvQLIhZGY5bKH5nL3e bGlnbjogbGVmdDsg liAukFbqQLjuXSsaM579 IHRvcDsnPkJpcnRoIERh kBG9PO89ZD11tZKhq3T2 uCV2U9JjJINxbhvp sgbaxMW1KBGsDUDclJ46 Kv7gmOfnGd7zRXDpYOU7 INJpoXGzB8TaxP1qRjLe KMDbXZCrA6MvxXBd DRjnR659GKoeWnW2EWKb aeZuU3OrTBVuvIfySiL7 n6T0De3RI3U7ML32PG83 vHMtb8O6vDE0D1Cq SXItabasmrbgvPV9ZKWw HKTnfX75Ca6wjRoxMw1s AWPpBSG2FAAmvNBjM4Ea mN4tUrAkWCFwXJSg F2SpkNXmZHohH294UInw ApK2SUYarfMqV4OxABKk oMzhVoK0k1B1As6SUNa8 LV23WF78hWUtg9E3 tLZ7B9LbDNApnzlujwuz eCO4DDJfBVLlgK06Jf2y rGtaXx1qPCGxOPJ0TBXq fVBqY7KifR8tPkIi FGCuTLQyW1XzoSDfIAju F564ONxgKwD0DOEwbtQh O3WtZQTeyCjbFxB5r7N2 Ta0CBKXtND64VED6 vYO8GM46WO21F2ItTmsf dGFibGU+PHRhYmxlIHdp ZHRoPScxMDAlJyBzdHls SU6kFu5hEOBnWOJx tOuvpWXjIyJgp0jnEFAr EZngWU5yuPnhW1NimNG3 ANJqa8q0Tw10A91dT0Ec dXA+RMRukZA5aIL8 iW7gMnWuUkR7MXpeR940 ZaTseQFdQxzdf6yki8nh aFl4CyQ9BPXqbdKajSzd DCM3y1YbEw81F69k IHdpZHRoPSIxNSUiIHZh sSrboh2lvO3pKb3+PGNv kJI2gEC8uK5aDpXmXkD0 NXcxE844WaNmqAXo Cqeif9pvm3avgYq9IlGz IGOxyzIzgJvyRMR1g9By Su36Q0NdsSgcc3QeUfw2 hq89nSOuy1C9fWR3 A0GgOZFxlukurMUwnDjd UP7nSLMdgdzmVPXauE8n PSTlK7i0UxGkXhQ4JSjs V2AogyS5BURmaSPj TFfwGFW5D67hv2L1RIVa KMIjBFD4wXT0vG0fbDry bjogbGVmdDsgdmVydGlj EMrtBTrdE880YJXe dZfkBVNuaJ3sVPTgjLRn wZopTS0dIAUfxdbqGvlO QRHsSWlFLAFITZ47QL07 rSShn8G3bYS6R7Vr MIGvxgkqispgnWZ5FUJz VHYxyJ72fMLsICyiGh4u u6L1a333PJHbHVYbkM03 Nr4alGyhNRXezRFU zH5gavwcr9sjsahuNcMr QSCgZOv1NPh4QEEzcXvp HrDbXGY5NzT2OSY9vALp tL2ytVxgzozutL9f Oyc+GWOmFujmEHm6WUwu dGQ+QRZlJZL7mKluYSrg ACIlkO4eAIXxN5t2CjPq BaG0GLmaL9PiFCXi iplmGy70hC2nYtRzWqJ4 WZsfR1RxgwV9WEAmtYTy BTcwWMK4E37fu4Y5EBNi YSBwBHQ9uFH7dM1o bGlnbjogbGVmdDsgdmVy vBkuMMpqNLbcI364ARIf eGjyThHtYWolALTnDR28 WY75aQRnu7T0wHQ1 C1PeWZXdfjefrtqxyTM2 HLZdDTUjjP83yZLfIAcd Bg2bn7O6g005BLOcIOHi uJ34Xz2myGbgHCXy fPUCkX7mrnuug7nmmhxo QzYqWHLkIVl8DVv9FQXf eJejMyFfDKK9PgA8CXZ5 rTNniX5chEyoybyw jC2jZlx+WlBjQMcuLD95 PU31mYBlk8H3fBH0Z5Zq MFNrewcxfsdysHV1BVOs WDIdfU08nOThSQpx Ne1we1W1i008QBChLDHr kF74Hx0owExnMARotAOS kH9hlvedv2lcbojjCpIw DWAqGXa3VFo6LQEd rOgkBrUwKPY9UxF6PHH8 dTTvzB4zyXaevqlqhG0i Oyc+RSIqHFOfu3Bbv3Kr XB57XR74X8CxElbe dGFibGU+PHRhYmxlIHdp ZHRoPScxMDAlJyBzdHls RF9sHn1uTZSuRTOqoVuf gUBcRyEyy7pzIEFq GPjhKP3szGamA1FrbGB8 TVTrp4k2Zp84C49bA0Qu dXA+OXKdhPW0aOR0iA0k AtPyNvR4EJxwX364 YkItcVBgYpflg4xhk0mm nEr8ZpEfURQtjhWelVmn WKN2c4UyXl10T19tSQkh ZHRoPSIyMCUiIHZh nTnroe7tyW3yIn9+PGNv qMS6wIZ9uX0dZeJeOsE7 GNvkU078DkVbwPYiIppn P53tW4JimSB+PHRy Xxb3CEPpfLquMF1llHLm FBdiJa0yJRH4SmGlAiJf VGbzR9BtEBOwhxfonszr iUZ2LZCdDVZcdB68 Nl6fpXmzPi9tPXZaZBV6 GSZyaSEyD9BskV4fPhGa SJXbBZDiK4JmzIUgEIcm B501STapWyO4ROKx ptAyQ3FwGNWltLyqTfU4 x8Z0Jn1ZlVnzyLNeZH1j PsUiFNn8Z2KiWfn5UIUj kPbvZR2quXMcEHul Pu5fiVglmBsfVK0rVKDe gbmpa856YhRvg6wsWSMn qOBfTZkzPNA7A41qm6I0 OWDnSUTfXLP8kGA5 eQ3czUnqybrqfJWjeCjq rdFntLbbCDvnWVogD662 NBGtwHcrJlTJKie8D4An Kxh3BTAaiDjlIM8z wYXiDRxtIz8wpJfjcOak UP9gICIasooqa590LnAn r8qtKKEzoRXiJEevKAV4 X90gl6B0UIBeIWBe RTV1qII7gZ8hdRitjtlo bGVmdDsgdmVydGljYWwt HBkcI575LEKzgNzpAj0R Hcw8F5ZjJvs0VYUo qQqqTX2qiQDsDKvnKf3q dLhtqJfgGD1fURRhztdv h908BtOty2yqGWUhpMLr NWkcNTE3V02cr5Y2 JUTdHSIhLPR1rYB0kK4u bGlnbjogbGVmdDsgdmVy mEetMBszZFfkR818HIZr cDsnPlBheWVyOjwv dGQ+ED82vr11A5DsZsdy Gab5XBRwBNZ2aYL8gB4h ZJAdUQrkr0L2pSW2W0En hcZyfy8nc7mpYPSl ZTog (more content not included)... Normal [facility] PAP [id number] 08-15-2021 Cytology report Cyto stain Doc (Cvx/Vag) Note Invalid Interpretation Code [facility] Comment on above: Result Comment: TEST S RESULT FLAG UNITS REF RANGE LAB Clinician Provided Cytology Information Source.............[employer] No. of containers..01 ThinPrep Vial DIAGNOSIS: 01 NEGATIVE FOR INTRAEPITHELIAL LESION OR MALIGNANCY. Specimen adequacy: 01 Satisfactory for evaluation. No endocervical component is identified. Performed by: 01 Sujey Engle Timber Deadener (ASCP) . 01 Note: Note 01 The [...] <-Panic Low,>-Panic High,A-Abnormal,AA-Critical Abnormal Performed at: [address] [id number] Mar Rivera MD, Performed By: #### 1 [id number] #### [facility] [address] [place] [address] HPV 16+18+31+33+35+39+45 +51+52+56+58+59+66+6 8 DNA Probe+sig amp Ql (Cvx) Negative Invalid Interpretation Code Negative [facility] Comment on above: Result Comment: This nucleic acid amplification test detects fourteen high-risk HPV types (16,18,31,33,35,39,45,51,52,56,58,59,66,68) without differentiation. Performed at: [facility] [address] [place], [place] [id number] MD Nicole Manuel Performed at: =G [facility] [address] [place], [place] [id number] MD Nicole Manuel Performed By: #### 1 [id number] #### [facility] [address] [place] [address] Insulin Lvlon 08-11-2021 Insulin Qn 24.3 u[IU]/mL Invalid Interpretation Code 2.6-24.9 [facility] Comment on above: Result Comment: Perf ormed at: [facility] [address] [id number] PhD Archie Jha Performed By: #### 1 [id number] #### [facility] [address] [place] [address] Consent for Treatmenton 07-29 Consent for Treatment [id number] #1.00CD:127 Normal [facility] Glu Fastingon 08-10-2021 Glucose [Mass/Vol] 95 mg/dL Normal 55-99 [facility] Comment on above: Performed By: #### 1 [id number] #### [facility] [address] [place] [address] Physician Orderon 08-10-2021 Physician Order [id number] 2#1.00CD:127 Normal [facility] PAP [id number] 08-09-2021 Collection Technique BRUSH-SPATULA Normal [facility] Comment on above: Performed By: #### 1 [id number] #### [facility] [address] [place] [address] Gynecological Body Site ENDOCERVIX Normal [facility] Comment on above: Performed By: #### 1 [id number] #### [facility] [address] [place] [address] Physician Orderon 08-09-2021 Physician Order [id number] #1.00CD:127 Normal [facility] Gynecology Office/Clinic Not pratik 02-17-2019 Gynecology [...] Family History Family history is negative Normal [facility] Comment on above: Result Comment: Elec [...] Family History Family history is negative Normal [facility] Comment on above: Result Comment: Elec tronically Signed By: Shamika ISAACS, Kaley Wilson\.david\Date and Time Signed: 02/17/19 12:09 EDT Vital Signs Date Time Vital Sign Value Performing Clinician Facility 09-29-2024 11:34-0500 Body mass index (BMI) [Ratio] 36.18 kg/m2 Immanuel Yobani DO Work Phone: [facility] 09-29-2024 11:34-0500 Body weight 89.72 kg Immanuel Yobani DO Work Phone: [facility] 09-29-2024 11:34-0500 Diastolic blood pressure 88 mm[Hg] Immanuel Yobani DO Work Phone: [facility] 09-29-2024 11:34-0500 Systolic blood pressure 140 mm[Hg] Immanuel Yobani DO Work Phone: [facility] 09-22-2024 09:37-0500 Body mass index (BMI) [Ratio] 35.85 kg/m2 Immanuel Yobani DO Work Phone: [facility] 09-22-2024 09:37-0500 Body weight 88.91 kg Immanuel Yobani DO Work Phone: [facility] 09-22-2024 09:37-0500 Diastolic blood pressure 70 mm[Hg] Immanuel Yobani DO Work Phone: [facility] 09-22-2024 09:37-0500 Systolic blood pressure 120 mm[Hg] Immanuel Yobani DO Work Phone: [facility] 09-08-2024 08:28-0500 Body mass index (BMI) [Ratio] 35.56 kg/m2 Immanuel Yobani DO Work Phone: [facility] 09-08-2024 08:28-0500 Body weight 88.18 kg Immanuel Yobani DO Work Phone: [facility] 09-08-2024 08:28-0500 Diastolic blood pressure 90 mm[Hg] Immanuel Yobani DO Work Phone: [facility] 09-08-2024 08:28-0500 Systolic blood pressure 132 mm[Hg] Immanuel Yobani DO Work Phone: [facility] 08-27-2024 11:45-0500 Body mass index (BMI) [Ratio] 35.08 kg/m2 Immanuel Yobani DO Work Phone: [facility] 08-27-2024 11:45-0500 Body weight 87 kg Immanuel Yobani DO Work Phone: [facility] 08-27-2024 11:45-0500 Diastolic blood pressure 82 mm[Hg] Immanuel Yobani DO Work Phone: [facility] 08-27-2024 11:45-0500 Systolic blood pressure 122 mm[Hg] Immanuel Yobani DO Work Phone: [facility] 08-12-2024 11:08-0500 Body mass index (BMI) [Ratio] 34.93 kg/m2 Immanuel Yobani DO Work Phone: [facility] 08-12-2024 11:08-0500 Body weight 86.64 kg Immanuel Yobani DO Work Phone: [facility] 08-12-2024 11:08-0500 Diastolic blood pressure 80 mm[Hg] Immanuel Yobani DO Work Phone: [facility] 08-12-2024 11:08-0500 Systolic blood pressure 120 mm[Hg] Immanuel Yobani DO Work Phone: [facility] 07-20-2024 11:00-0500 Body mass index (BMI) [Ratio] 34.39 kg/m2 Immanuel Yobani DO Work Phone: [facility] 07-20-2024 11:00-0500 Body weight 85.28 kg Immanuel Yobani DO Work Phone: [facility] 07-20-2024 11:00-0500 Diastolic blood pressure 76 mm[Hg] Immanuel Yobani DO Work Phone: [facility] 07-20-2024 11:00-0500 Systolic blood pressure 122 mm[Hg] Immanuel Yobani DO Work Phone: [facility] 06-22-2024 14:31-0500 Body mass index (BMI) [Ratio] 34.2 kg/m2 Immanuel Yobani DO Work Phone: [facility] 06-22-2024 14:31-0500 Body weight 84.82 kg Immanuel Yobani DO Work Phone: [facility] 06-22-2024 14:31-0500 Diastolic blood pressure 78 mm[Hg] Immanuel Yobani DO Work Phone: [facility] 06-22-2024 14:31-0500 Systolic blood pressure 124 mm[Hg] Immanuel Yobani DO Work Phone: [facility] 06-15-2024 10:27-0500 Body weight 84.82 kg Cele Rodriguez MD Work Phone: [facility] 06-15-2024 10:27-0500 Diastolic blood pressure 88 mm[Hg] Cele Rodriguez MD Work Phone: [facility] 06-15-2024 10:27-0500 Heart rate 99 /min Cele Rodriguez MD Work Phone: [facility] 06-15-2024 10:27-0500 Respiratory rate 18 /min Cele Rodriguez MD Work Phone: [facility] 06-15-2024 10:27-0500 Systolic blood pressure 137 mm[Hg] Cele Rodriguez MD Work Phone: [facility] 05-25-2024 11:46-0400 Body mass index (BMI) [Ratio] 33.84 kg/m2 Immanuel Yobani DO Work Phone: [facility] 05-25-2024 11:46-0400 Body weight 83.92 kg Immanuel Yobani DO Work Phone: [facility] 05-25-2024 11:46-0400 Diastolic blood pressure 74 mm[Hg] Immanuel Yobani DO Work Phone: [facility] 05-25-2024 11:46-0400 Systolic blood pressure 118 mm[Hg] Immanuel Yobani DO Work Phone: [facility] 04-27-2024 10:35-0400 Body mass index (BMI) [Ratio] 33.75 kg/m2 Immanuel Yobani DO Work Phone: [facility] 04-27-2024 10:35-0400 Body weight 83.69 kg Immanuel Yobani DO Work Phone: [facility] 04-27-2024 10:35-0400 Diastolic blood pressure 76 mm[Hg] Immanuel Yobani DO Work Phone: [facility] 04-27-2024 10:35-0400 Systolic blood pressure 122 mm[Hg] Immanuel Yobani DO Work Phone: [facility] 03-27-2024 10:27-0400 Body mass index (BMI) [Ratio] 34.53 kg/m2 [facility] 03-27-2024 10:27-0400 Body weight 85.64 kg [facility] 03-27-2024 10:27-0400 Diastolic blood pressure 70 mm[Hg] [facility] 03-27-2024 10:27-0400 Systolic blood pressure 120 mm[Hg] [facility] 01-02-2024 09:15-0400 Body height 157.[address] [facility] 01-02-2024 09:15-0400 Body mass index (BMI) [Ratio] 33.9 kg/m2 [facility] 01-02-2024 09:15-0400 Body temperature 100.2 [degF] [facility] 01-02-2024 09:15-0400 Body weight 84.[address] [facility] 01-02-2024 09:15-0400 Heart rate 115 /min [facility] 01-02-2024 09:15-0400 Respiratory rate 18 /min [facility] 01-02-2024 09:15-0400 SaO2% (BldA) [Mass fraction] 99 % [facility] Encounters Encounter Date Encounter Type Care Provider Facility Start: 10-01-2024 End: 10-01-2024 ambulatory Immanuel Yobani Facility:[facility] Start: 10-01-2024 End: 10-01-2024 Clinisync Result Encounter Immanuel Yobani DO Work Phone: [facility] Unsolicited Start: 10-01-2024 End: 10-01-2024 Clinisync Result Encounter Immanuel Yobani DO Work [...] Start: 09-20-2024 End: 09-20-2024 ambulatory NON STAFF Facility:[facility] Start: 09-20-2024 Non-patient / Non-visit [facility] Work Phone: Start: 09-16-2024 [...] Department Unsolicited Start: 09-12-2024 Non-patient / Non-visit [facility] Work Phone: Start: 09-09-2024 End: 09-09-2024 Clinisync Result Encounter Immanuel Yobnai DO Work Phone: [facility] Unsolicited Start: 09-09-2024 End: 09-09-2024 Clinisync Result Encounter Immanuel Yobani DO Work Phone: [facility] Unsolicited Start: 09-09-2024 Non-patient / Non-visit [facility] [place] [facility] Work Phone: Start: 09-08-2024 End: [...] Bamboo flowsheet Immanuel Yobani DO Work Phone: [facility] Start: 08-12-2024 End: 08-12-2024 Bamboo flowsheet Immanuel Yobani DO Work Phone: [facility] Start: 08-12-2024 End: 08-12-2024 flow sheet Immanuel Yobani DO Work Phone: [facility] Comment on above: 29 weeks gestation o f ; Third trimester ; Gestational diabetes mellitus (GDM), antepartum, gestational diabetes method of control unspecified; Encounter for in vitro fertilization Start: 08-12-2024 End: 08-12-2024 ambulatory IMMANUEL YOBANI Not Available Start: 08-05-2024 End: 08-05-2024 Clinisync Result Encounter Immanuel Yobani DO Work Phone: [facility] External Department Unsolicited Start: 08-05-2024 End: 08-05-2024 Clinisync Result Encounter Immanuel Yobani DO Work Phone: [facility] External Department Unsolicited Start: 08-05-2024 Non-patient / Non-visit [facility] [place] [facility] Work Phone: Start: 07-20-2024 End: 07-20-2024 Bamboo flowsheet Immanuel Yobani DO Work Phone: [facility] Start: 07-20-2024 End: 07-20-2024 Bamboo flowsheet Immanuel Yobani DO Work Phone: [facility] Start: 07-20-2024 End: 07-20-2024 flow sheet Immanuel Yobani DO Work Phone: [facility] Comment on above: 26 weeks gestation o f ; Diabetes mellitus screening; Second trimester ; PCOS (polycystic ovarian syndrome); resulting from in vitro fertilization, antepartum; Gestational diabetes mellitus (GDM), antepartum, gestational diabetes method of control unspecified; Elevated glucose tolerance test Start: 07-20-2024 End: 07-20-2024 ambulatory IMMANUEL YOBANI Not Available Start: 06-29-2024 Non-patient / Non-visit [facility] Work Phone: Start: 06-22-2024 End: [...] Cele Rodriguez MD Work Phone: [facility] [place] Comment on above: 21 weeks gestation o f (Primary Dx); Chronic hypertension affecting ; In vitro fertilization Start: 06-15-2024 End: 06-15-2024 ambulatory [facility] Start: 05-28-2024 End: 05-30-2024 Clinisync Result Encounter Immanuel Yobani DO Work Phone: [facility] Unsolicited Start: 05-28-2024 End: 05-30-2024 Clinisync Result Encounter Immanuel Yobani DO Work Phone: [facility] Unsolicited Start: 05-27-2024 End: 05-27-2024 Chart abstracting Cele Rodriguez MD Work Phone: [facility] Start: 05-25-2024 End: 05-25-2024 Bamboo [...] Not Available Start: 01-02-2024 End: 01-02-[address] [facility] Work Phone: Start: 01-02-2024 End: 01-02-2024 Patient encounter procedure [facility] Work Phone: Start: 11-27-2023 End: 11-27-2023 ambulatory IMMANULE HILTON Not Available Start: 07-26-2022 End: 07-27-2022 [...] Date Procedure Procedure Detail Performing Clinician Start: 10-01-2024 [facility] CBC WITH PLATEL ET NO DIFFERENTIAL Immanuel Yobani DO Work Phone: Start: 09-30-2024 OB BPP W NON-STRESS Immanuel Yobani DO [...] malign ant neoplasm of cervix Pap Smear [facility] Start: 06-15-2025 Tobacco Screening Tobacco Screening [facility] Start: 09-29-2024 End: 09-29-2024 Patient encounter procedure [facility] Comment on above: Arrived Start: 09-22-2024 End: 09-22-2025 CULTURE, GROUP B STREP WITH SUSCEPTIBLITY CULTURE, GROUP B STREP WITH SUSCEPTIBLITY Lab Routine Third trimester Expected: 09/22/2024, Expires: 09/22/2025 [facility] Work Phone: Comment on above: Expected: 09/22/2024 , Expires: 09/22/2025 Start: 09-22-2024 End: 09-22-2024 Patient encounter procedure [facility] Comment on above: Arrived Start: 09-20-2024 Urine culture [facility] Start: 09-08-2024 End: 09-08-2025 Alanine aminotransferase [Enzymatic activity/volume] in Serum or Plasma ALT Lab Routine induced hypertension, antepartum Expected: 09/08/2024 (Approximate), Expires: 09/08/2025 [facility] Comment on above: Expected: 09/08/2024 (Approximate), Expires: 09/08/2025 Start: 09-08-2024 End: 09-08-2025 Aspartate aminotransferase [Enzymatic activity/volume] in Serum or Plasma AST Lab Routine induced hypertension, antepartum Expected: 09/08/2024 (Approximate), Expires: 09/08/2025 [facility] Comment on above: Expected: 09/08/2024 (Approximate), Expires: 09/08/2025 Start: 09-08-2024 End: 09-08-2025 CBC W Auto Differential panel - Blood CBC and differential Lab Routine induced hypertension, antepartum Expected: 09/08/2024 (Approximate), Expires: 09/08/2025 [facility] Comment on above: Expected: 09/08/2024 (Approximate), Expires: 09/08/2025 Start: 09-08-2024 End: 09-08-2025 Creatinine [Mass/volume] in Serum or Plasma Creatinine Lab Routine induced hypertension, antepartum Expected: 09/08/2024 (Approximate), Expires: 09/08/2025 [facility] Work Phone: Comment on above: Expected: 09/08/2024 (Approximate), Expires: 09/08/2025 Start: 09-08-2024 End: 09-08-2025 Lactate dehydrogenase [Enzymatic activity/volume] in Serum or Plasma by Lactate to pyruvate reaction Lactate dehydrogenase Lab Routine induced hypertension, antepartum Expected: 09/08/2024, Expires: 09/08/2025 [facility] Comment on above: Expected: 09/08/2024 , [...] AM EST Routine [facility] [address] [place] [id number] Immanuel Hilton DO [address] [place] [address] [facility] Start: 08-27-2024 End: 08-27-2024 Professional / ancillary services management 08/27/2024 11:00 AM EST Ancillary Procedure [facility] [address] [place] [id number] [facility] Start: 08-12-2024 End: 08-12-2025 [...] mellitus screening Expected: 07/20/2024 (Approximate), Expires: 07/20/2025 [facility] [employer] Comment on above: Expected: 07/20/2024 (Approximate), Expires: 07/20/2025 Start: 07-20-2024 End: 07-20-2025 US for US OB SCAN FOR GROWTH Imaging Routine PCOS (polycystic ovarian syndrome) resulting from in vitro fertilization, antepartum Expected: 07/20/2024 (Approximate), Expires: 07/20/2025 [facility] Comment on above: Expected: 07/20/2024 [...] End: 06-15-2024 Patient encounter procedure [facility] [place] Start: 05-25-2024 End: 11-23-2024 Alpha fetoprotein, maternal [...] Procedure [facility] [address] [place] [id number] [facility] Start: 04-27-2024 End: 04-27-2025 US Pelvis transvaginal US OB transvaginal Imaging Routine Encounter for screening for cervical length Expected: 04/27/2024 (Approximate), Expires: 04/27/2025 [facility] Work Phone: Comment on above: Expected: 04/27/2024 (Approximate), Expires: 04/27/2025 Start: 04-27-2024 End: 04-27-2024 Patient encounter procedure 04/27/2024 10:20 AM EDT Routine [facility] [address] [place] [id number] Immanuel Hilton DO [address] [place] [address] [facility] Start: 03-29-2024 COVID-19 Vaccine () COVID-19 Vaccine ( season) [facility] Start: 03-29-2024 Influenza vaccination [facility] Start: 03-27-2024 End: 03-27-2025 ABO/Rh ABO/Rh Lab Routine Missed menses Expected: 03/27/2024 (Approximate), Expires: 03/27/2025 [facility] Comment on above: Expected: 03/27/2024 (Approximate), Expires: 03/27/2025 Start: 03-27-2024 End: 03-27-2025 Blood type and Indirect antibody screen panel - Blood Type and screen Lab Routine Missed menses Expected: 03/27/2024 (Approximate), Expires: 03/27/2025 [facility] Work Phone: Comment on above: Expected: 03/27/2024 (Approximate), Expires: 03/27/2025 Start: 03-27-2024 End: 03-27-2025 US Pelvis transvaginal US OB transvaginal Imaging Routine Missed menses Expected: 03/27/2024 (Approximate), Expires: 03/27/2025 [facility] Comment on above: Expected: 03/27/2024 (Approximate), Expires: 03/27/2025 Start: 2020 Screening for malign ant neoplasm of cervix Pap Smear [facility] Start: 2018 DTaP,Tdap and Td Vac cines (1 - Tdap) DTaP,Tdap and Td Vaccines (1 - Tdap) [facility] Start: 2017 Adult BMI Screening Adult BMI Screen ing [facility] Start: 2011 Depression Screening Depression Scre ening [facility] Start: 2011 Tobacco Screening Tobacco Screening [facility] Start: 1999 Screening for Chlamy leoncio trachomatis Chlamydia Screening [facility] Bacteria identified in Urine by Culture Urine culture Microbiology Routine Missed menses Ordered: 03/27/2024 [facility] Healthcare Comment on above: Ordered: 03/27/2024 CBC W Auto Different ial panel - Blood CBC and differential Lab Routine Missed menses Ordered: 03/27/2024 [facility] Healthcare Comment on above: Ordered: 03/27/2024 CHLAMYDIA TRACHOMATI S (GENITO/STI) CHLAMYDIA TRACHOMATIS (GENITO/STI) Lab Routine STD exposure Ordered: 05/25/2024 [facility] Comment on above: Ordered: 05/25/2024 Cytology Cervical or vaginal smear or scraping study Pap Smear Pathology and Cytology Routine Well woman exam with routine gynecological exam Ordered: 05/25/2024 [facility] Work Phone: Comment on above: Ordered: 05/25/2024 Hemoglobin A1c/Hemoglobin.total in Blood Hemoglobin A1c Lab Routine Missed menses Ordered: 03/27/2024 [facility] Comment on above: Ordered: 03/27/2024 Hepatitis B virus love rface Ag [Presence] in Serum or Plasma by Immunoassay Hepatitis B surface antigen Lab Routine Missed menses Ordered: 03/27/2024 [facility] Comment on above: Ordered: 03/27/2024 Hepatitis C virus Ab [Presence] in Serum or Plasma by Immunoassay Hepatitis C antibody Lab Routine Missed menses Ordered: 03/27/2024 [facility] Comment on above: Ordered: 03/27/2024 HIV-1/HIV-2 antigen/antibody combination immunoassay HIV-1 and HIV-2 antibodies Lab Routine Missed menses Ordered: 03/27/2024 [facility] Comment on above: Ordered: 03/27/2024 Neisseria gonorrhoea e DNA [Presence] in Unspecified specimen by BUCK with probe detection Neisseria gonorrhea DNA probe, direct Lab Routine STD exposure Ordered: 05/25/2024 [facility] Comment on above: Ordered: 05/25/2024 Reagin Ab [Presence] in Serum by RPR RPR Lab Routine Missed menses Ordered: 03/27/2024 [facility] Comment on above: Ordered: 03/27/2024 Rubella antibody, IgG Rubella an tibody, IgG Lab Routine Missed menses Ordered: 03/27/2024 [facility] Comment on above: Ordered: 03/27/2024 SURESWAB(R) ADVANCED VAGINITIS PLUS, TMA SURESWAB(R) ADVANCED VAGINITIS PLUS, TMA Pathology and Cytology Routine Vaginal discharge Ordered: 05/25/2024 [facility] Comment on above: Ordered: 05/25/2024 Payers Date Payer Category Payer Self-pay 2023 [employer] - [employer] [id number] 2023 [facility] er [id number] 2023 Unknown [id number] 2021 Private Health Insurance [id number] 2021 Unknown [id number] 1.13.693.2. [id number] 2021 Unknown [id number] 1999 Unknown [id number] 2.16.840.1.290065.3.579.2. 593 1999 Unknown [id number] 2.16.840.1.537677.3.579.2. 593 1999 Unknown [id number] 2.16.840.1.077436.3.579.2. 593 1999 Unknown [id number] 2.16.840.1.509068.3.579.2. 593 1999 Unknown [id number] 2.16.840.1.610026.3.579.2. 593 1999 Unknown [id number] 2.16.840.1.158666.3.579.2. 593 1999 Unknown [id number] 2.16.840.1.174437.3.579.2. 593 1999 Unknown [id number] 2.16.840.1.886987.3.579.2. 1286 1999 Unknown [id number] 2.16.840.1.963307.3.579.2. 1286 1999 Unknown [id number] 2.16.840.1.096524.3.579.2. 125 1999 Unknown [id number] 2.16.840.1.243133.3.579.2. 1258 1999 Unknown [id number] 2.16.840.1.357707.3.579.2. 1259 1999 Unknown [id number] 2.16.840.1.813968.3.579.2. 1259 1999 Unknown [id number] 2.16.840.1.834645.3.579.2. 1259 1999 Unknown [id number] 2.16.840.1.100309.3.579.2. 1258 1999 Unknown [id number] 2.16.840.1.470025.3.579.2. 1259 1999 Unknown [id number] 2.16.840.1.098976.3.579.2. 1258 1999 Unknown [id number] 2.16.840.1.184844.3.579.2. 1259 1999 Unknown [id number] 2.16.840.1.989633.3.579.2. 1259 1999 Unknown [id number] 2.16.840.1.047899.3.579.2. 1259 1999 Unknown [id number] 2.16.840.1.459992.3.579.2. 1259 1999 Unknown [id number] 2.16.840.1.512957.3.579.2. 1259 1959 Private Health Insurance [id number] 1959 Unknown [id number] Unknown [id number] 2.16.840.1.907448.3.579.2. 531 Unknown [id number] 2.16.840.1.361309.3.579.2. 531 Social History Date Type Detail Facility Tobacco smoking stat us NVIS Unknown if ever smoked [facility] Work Phone: Start: 1999 Sex Assigned At Female F [facility] Start: 01-02-2024 End: 05-27-2024 Tobacco smoking status NVIS Never smoked tobacco [facility] Start: 01-02-2024 [...] 06-15-2024 Alcoholic beverage intake Lifetime non-drinker (finding) [facility] Start: 1999 Sex assigned at Not on file P [facility] Start: 05-26-2024 End: 09-22-2024 Sex Female (finding) [facility] Tobacco smoking stat [facility] Unknown if ever smoked [facility] Work Phone: Medical Equipment Procedure Code Equipment Code Equipment Origin al Text Equipment Identifier Dates 1 strip by In Vi tro route Daily Use in the morning prior to breakfast, 1 hour after each meal for a total of 4times daily. [id number] Start: 07-20-2024 End: 08-19-2024 1 each by In Vit ro route Daily Use to check FSBS four times daily [id number] Start: 07-20-2024 End: 08-19-2024 Goals Date Patient Goal Desired Activity /State Personal health goal Clinical Notes 03-27-2024 to 09-29-2024 Esperanza Peter, [facility] - 09/29/2024 11:20 AM Donell Tracy, [facility] - 09/22/2024 9:20 AM Donell Tracy, [facility] - 09/08/2024 8:30 AM ESTSburton Peter, [facility] - 08/27/2024 11:40 AM EST Note Date [...] a total of 4times daily. Continuous Glucose Spool Fixer (FreeStyle Jenise 3 [place]) device 1 each, Does not apply, Every 14 days Continuous Glucose Sensor (FreeStyle Jenise 3 Sensor) misc 1 each, Does not apply, Every 14 days labetalol (NORMODYNE) 100 mg, Oral, 2 times daily Multiple Vitamin (multivitamin) tablet 1 tablet, Daily ondansetron (ZOFRAN) 4 mg, Every 8 hours PRN ALLERGIES Allergies Allergen Reactions Ballard Flavor [Ballard Oil] Latex Hives, Itching, Rash and Swelling [...] nursing note reviewed. Exam conducted with a cyber forensics analyst present. Vitals: Estimated body mass index is [...] Hilton DO documented in this encounter [facility] 09-22-2024 History of Present illness Narrative Reason [...] apply, As needed Blood Glucose Monitoring Suppl (D-Mail'Inside Glucometer) w/Device kit 1 kit, Does not apply, Daily, Use four times daily to check FSBS. In the morning prior to breakfast & 1 hour after each meal for a total of 4times daily. Continuous Glucose Spool Fixer (FreeStyle Jenise 3 [place]) device 1 each, Does not apply, Every 14 days Continuous Glucose Sensor (FreeStyle Jenise 3 Sensor) misc 1 each, Does not apply, Every 14 days labetalol (NORMODYNE) 100 mg, Oral, 2 times daily Multiple Vitamin (multivitamin) tablet 1 tablet, Daily ondansetron (ZOFRAN) 4 mg, Every 8 hours PRN ALLERGIES Allergies Allergen Reactions Ballard Flavor [Ballard Oil] Latex Hives, Itching, Rash and Swelling [...] nursing note reviewed. Exam conducted with a cyber forensics analyst present. Vitals: Estimated body mass index is [...] Hilton DO documented in this encounter [facility] 09-08-2024 History of Present illness Narrative [...] a total of 4times daily. Continuous Glucose Spool Fixer (FreeStyle Jenise 3 [place]) device 1 each, Does not apply, Every 14 days Continuous Glucose Sensor (FreeStyle Jenise 3 Sensor) misc 1 each, Does not apply, Every 14 days Multiple Vitamin (multivitamin) tablet 1 tablet, Daily terconazole (Terazol 7) 0.4 % vaginal cream 1 applicator, Vaginal, Nightly ALLERGIES Allergies Allergen Reactions Ballard Flavor [Ballard Oil] Latex Hives, Itching, Rash and Swelling [...] nursing note reviewed. Exam conducted with a cyber forensics analyst present. Vitals: Estimated body mass index is [...] Hilton DO documented in this encounter [facility] 08-27-2024 History of Present illness Narrative [...] apply, As needed Blood Glucose Monitoring Suppl (D-Mail'Inside Glucometer) w/Device kit 1 kit, Does not apply, Daily, Use four times daily to check FSBS. In the morning prior to breakfast & 1 hour after each meal for a total of 4times daily. Continuous Glucose Spool Fixer (FreeStyle Jenise 3 [place]) device 1 each, Does not apply, Every 14 days Continuous Glucose Sensor (FreeStyle Jenise 3 Sensor) misc 1 each, Does not apply, Every 14 days metroNIDAZOLE (FLAGYL) 500 mg, Oral, 2 times daily, Do not drink alcohol while taking this medication Multiple Vitamin (multivitamin) tablet 1 tablet, Daily ALLERGIES Allergies Allergen Reactions Ballard Flavor [Ballard Oil] Latex Hives, Itching, Rash and Swelling [...] nursing note reviewed. Exam conducted with a cyber forensics analyst present. Vitals: Estimated body mass index is [...] from yesterday. Patients insurance did finally approve Yazino Jenise and patient is waiting for monitor [...] Hilton DO documented in this encounter [facility] 08-12-2024 History of Present illness Narrative [...] apply, As needed Blood Glucose Monitoring Suppl (S B E Glucometer) w/Device kit 1 kit, Does not [...] 1 tablet, Daily ALLERGIES Allergies Allergen Reactions Ballard Flavor [Ballard Oil] Latex Hives, Itching, Rash and Swelling [...] nursing note reviewed. Exam conducted with a cyber forensics analyst present. Vitals: Estimated body mass index is [...] Hilton DO documented in this encounter [facility] 07-20-2024 History of Present illness Narrative [...] mg, Oral, Daily ALLERGIES Allergies Allergen Reactions Ballard Flavor [Ballard Oil] Latex Hives, Itching, Rash and Swelling [...] Hilton DO documented in this encounter [facility] 06-22-2024 History of Present illness Narrative [...] mg, Oral, Daily ALLERGIES Allergies Allergen Reactions Ballard Flavor [Ballard Oil] Latex Hives, Itching, Rash and Swelling [...] Hilton DO documented in this encounter [facility] 06-15-2024 History of Present illness Narrative [...] Allergies: Allergies Allergen Reactions Latex, Natural Rubber Ballard Meds: Prior to Admission medications Medication Sig [...] other morbidities. Based on the available evidence, [facility] recommends treatment with antihypertensive therapy for mild [...] preeclampsia prevention as is recommended by the [place] College of Gynecology Committee Opinion No. 743. [...] Cele Rodriguez MD, FACOG (she/hers) Maternal- [facility] [address] [place] [address] This document was created with [employer] technology. Though I make every effort to review the dictation as it is transcribed, on occasion the spoken word can be misinterpreted by the technology leading to inappropriate words, phrases, or sentences. This note is addressed to the requesting provider as a consultation for clinical guidance. Specific medical abbreviations are occasionally used and those are generally approved by the [place]?Board of?Obstetrics and?Gynecology?as well as?Kenzie croft abbreviations. The above plan of care was based solely on the diagnoses for which a consultation was requested. ?More frequent testing may be indicated based on her other medical/obstetrical conditions. The management of other or medical conditions is beyond the scope of requested consultation and will continue to be followed by the primary pulp drier firer or primary care provider. Note to patient: [...] IVF Have you been seen here at [facility] in a previous ? N/a Recent ER visits or hospitalizations? no Bring blood sugar log or meter with you today? (Please bring them with you for every visit at [facility]) no Flu vaccine (May-September)? no Any concerns that you would like me to mention to the provider today? no documented in this encounter [facility] [place] 05-25-2024 History of Present illness Narrative Reason [...] mg, Oral, Daily ALLERGIES Allergies Allergen Reactions Ballard Flavor [Ballard Oil] Latex Hives, Itching, Rash and Swelling [...] nursing note reviewed. Exam conducted with a cyber forensics analyst present. Vitals: Estimated body mass index is [...] Hilton DO documented in this encounter [facility] 04-27-2024 History of Present illness Narrative [...] mg, Oral, Daily ALLERGIES Allergies Allergen Reactions Ballard Flavor [Ballard Oil] Latex Hives, Itching, Rash and Swelling [...] nursing note reviewed. Exam conducted with a cyber forensics analyst present. Vitals: Estimated body mass index is [...] IVF . Patient to also have [facility] referral for IVF and Level II [...] undercooked meat, and stay away from [facility]. Patient has been consulted regarding any further do's and don'ts of . Patient voiced understanding and all questions and concerns were answered. Orders Placed This Encounter Procedures POCT urinalysis dipstick manually resulted Follow Up: Patient is to return in 4 weeks for routine OB appointment. Documented by Esperanza Peter LPN on behalf of: Immanuel Hilton DO documented in this encounter [facility] 03-27-2024 History of Present illness Narrative [...] Procedure Laterality Date TONSILLECTOMY Allergies Allergen Reactions Ballard Flavor [Ballard Oil] Latex Hives, Itching, Rash and Swelling [...] undercooked meat, and stay away from [facility]. Patient has also been advised to [...] Evaluation note No assessment inform ation available [facility] Work Phone: Evaluation note Diagnosis Well [...] fertility procedure cycle documented in this encounter [facility]* Diagnosis 35 weeks gestation of Third trimester state, incidental [facility] Diagnosis 36 weeks gestation of Third trimester state, incidental documented in this encounter [facility] HealthcareInstructionsNot on filedocumented in this encounterProTwin City Hospital SystemInstructionsNot on filedocumented in this encounterProTwin City Hospital SystemInstructions* Attachments The following attachments cannot be sent through Care Everywhere. * Preeclampsia (Thai) documented in this encounterProTwin [facility] Summary Purpose Family History No [...] and content) DATE CREATED AUTHOR 03/06/2019 [facility] DATE CREATED AUTHOR AUTHOR'S ORGANIZ ATION 12/21/2021 [facility] DATE CREATED AUTHOR AUTHOR'S ORGANIZ ATION 12/01/2022 [facility] DATE CREATED AUTHOR AUTHOR'S ORGANIZ ATION 06/17/2024 [facility] DATE CREATED AUTHOR AUTHOR'S ORGANIZ ATION 10/01/2024 [facility] EP[facility] DATE CREATED AUTHOR AUTHOR'S ORGANIZ ATION 10/04/2024 [facility] Care Teams (unrecognized sec tion and content) Team Status: Active Member Role Status Dates Damon Stover DO Primary Care Provider Active Team Status: Inactive Member Role Status Dates Damon Stover DO Primary Care Provider Active Start: January 02, 2024 End: January 02, 2024 Teresa Sanchez APRN Attending Provider Active S tart: January 02, 2024 End: January 02, 2024 User Experience Developer Relationship Specialty Start Date End Date Akila Grant MD [address] [place] [address] PCP - General Family Medicine 11/27/23 User Experience Developer Relationship Specialty Start Date End Date Akila Grant MD [address] [place] [address] PCP - General Family Medicine 11/27/23 User Experience Developer Relationship Specialty Start Date End Date Akila Grant MD [address] [place] [address] PCP - General Family Medicine 11/27/23 User Experience Developer Relationship Specialty Start Date End Date Akila Grant MD [address] [facility] [address] PCP - General Family Medicine 11/27/23 User Experience Developer Relationship Specialty Start Date End Date Akila Grant MD [address] [facility] [address] PCP - General Family Medicine 11/27/23 User Experience Developer Relationship Specialty Start Date End Date Akila Grant MD [address] [facility] [address] PCP - General Family Medicine 11/27/23 User Experience Developer Relationship Specialty Start Date End Date Akila Grant MD [address] [facility] [address] PCP - General Family Medicine 11/27/23 User Experience Developer Relationship Specialty Start Date End Date Akila Grant MD [address] [facility] [place] [address] PCP - General Family Medicine 11/27/23 User Experience Developer Relationship Specialty Start Date End Date Akila Grant MD [address] [facility] [address] PCP - General Family Medicine 11/27/23 User Experience Developer Relationship Specialty Start Date End Date Akila Grant MD [address] [facility] [place] [address] PCP - General Family Medicine 11/27/23 User Experience Developer Relationship Specialty Start Date End Date Akila Grant MD [address] [facility] [place] [address] PCP - General Family Medicine 11/27/23 User Experience Developer Relationship Specialty Start Date End Date Akila Grant MD [address] [place] [address] PCP - General Family Medicine 11/27/23 User Experience Developer Relationship Specialty Start Date End Date Akila Grant MD [address] [place] [place] [address] PCP - General Family Medicine 11/27/23 User Experience Developer Relationship Specialty Start Date End Date Akila Grant MD [address] [place] [place] [address] PCP - General Family Medicine 11/27/23 User Experience Developer Relationship Specialty Start Date End Date Akila Grant MD [address] [place] [place] [address] PCP - General Family Medicine 11/27/23 User Experience Developer Relationship Specialty Start Date End Date Akila Grant MD [address] [place] [address] PCP - General Family Medicine 11/27/23 Team [...] Active Start: September 12, 2024 Immanuel Hilton DO Attending Provider Active Start : September 12, 2024 Team Status: Active Member Role Status Dates Damon Stover DO Primary Care Provider Active Start: September 20, 2024 Akila Grant MD Attending Provider Active St art: September 20, 2024 User Experience Developer Relationship Specialty Start Date End Date Akila Grant MD [address] [place] [address] PCP - General Family Medicine 11/27/23 User Experience Developer Relationship Specialty Start Date End Date Akila Grant MD [address] [place] [address] PCP - General Family Medicine 11/27/23 Goals [...] BE BASED ON THE PRIMARY CLINICAL RECORDS. [employer] provides no warranty or guarantee of the accuracy or completeness of information in this document.
[2024-10-07 15:05] VITALS: BP 149/87; PULSE 88; TEMP 37; O2SAT 97
== END 2024-10-07 15:10 | disposition home or self-care (01) ==
PROVIDERS: PCP Family Medicine; Visit Provider Obstetrics & Gynecology
DX: Z39.1 Encounter for care and examination of lactating mother (principal)

== ENCOUNTER 2025-04-23 14:57 | Emergency (ER) | payer OTHER, BC, SELFPAY ==
--- OUTSIDE RECORDS SUMMARY | 2024-07-13 07:00 | XMS_ITS ---
Author Organization [facility] Address [address] [place] [address] Care Team Providers Care Pmp Name Role Phone Jazmine Saunders Primary Care Provider REASON FOR VISIT BH/FU Encounters Encounter Location Date Provider Diagnosis [facility] [address] [place] [place] [address] 07/13/2024 Jazmine Saunders Plan Of Treatment Next Appt Details Provider Name:Jazmine Bushra Saunders, 05/10/2025 03:00:00 PM, [address], [place], [address], Progress Notes * ANNA MARIO ADOB:2000 (24 yo F)Acc No.[id number]:07/13/2024 Behavioral Health Patient: ANNA HERNANDEZ Appointment Provider: Cydney Saunders :2000 A ge:24 Y S ex:Female Date:07/13/2024 Address:[address] [place], [place] [id number] Subjective: * Chief Complaints: * 1 . BH/FU. * Medical History: Objective: * Vitals: Assessment: Plan: * Treatment: * Images: * Electronic signature of YASMEEN Pinedo FNP on 04/23/2025 at 10:20 AM EDT Sign off status: Pending * Appointment Provider: Cydney Saunders Date: 1 09/13/2023 Generated for Printi ng/Faxing/eTransmitting on: 0 04/23/2025 10:20 AM EDT
--- OUTSIDE RECORDS SUMMARY | 2024-11-09 07:00 | XMS_ITS ---
Author Organization [facility] es Address [address] [place] [address] Care Team Providers Care Exploration Driller Name Role Phone Jazmine Saunders Primary Care Provider REASON FOR VISIT 4 months follow up Encounters Encounter Location Date Provider Diagnosis [place] [address] [place] [address] 11/09/2024 Jazmine Saunders Plan Of Treatment Next Appt Details Provider Name:Jazmine Saunders, 05/10/2025 03:00:00 PM, [address], [place], [address], Progress Notes * ANNA MARIO ADOB:2000 (24 yo F)Acc No.[id number]:11/09/2024 Behavioral Health Patient: ANNA HERNANDEZ Appointment Provider: Cydney Saunders :2000 A ge:24 Y S ex:Female Date:11/09/2024 Address:[address] [place], [place] [phone] Subjective: * Chief Complaints: * 1 . 4 months follow up. * Medical History: Objective: * Vitals: Assessment: Plan: * Treatment: * Images: * Electronic signature of YASMEEN Pinedo FNP on 04/23/2025 at 04:38 PM EDT Sign off status: Pending * Appointment Provider: Cydney Saunders Date: 11/09/2024 Generated for Kaseyi ng/Fabonig/eTransmitting on: 0 04/23/2025 04:38 PM EDT
--- OUTSIDE RECORDS SUMMARY | 2025-04-12 04:00 | XMS_ITS ---
Author Organization [facility] Address [address] [place] [address] Care Team Providers Care Tool Room Machinist Name Role Phone Jazmine Saunders Primary Care Provider REASON FOR VISIT FU 6 MONTHS Encounters Encounter Location Date Provider Diagnosis [place] [address] [place] [address] 04/12/2025 Jazmine Saunders Plan Of Treatment Next Appt Details Provider Name:Jazmine Saunders, 05/10/2025 03:00:00 PM, [address], [place], [address], Progress Notes * ANNA MARIO ADOB:2000 (24 yo F)Acc No.[id number]:04/12/2025 Behavioral Health Patient: ANNA HERNANDEZ Appointment Provider: Cydney Saunders :2000 A ge:24 Y S ex:Female Date:04/12/2025 Address:[address] [place], [place] [address] Subjective: * Chief Complaints: * 1 . FU 6 MONTHS. * Medical History: Objective: * Vitals: Assessment: Plan: * Treatment: * Images: * Electronic signature of YASMEEN Pinedo FNP on 04/23/2025 at 10:20 AM EDT Sign off status: Pending * Appointment Provider: Cydney Saunders Date: 0 04/12/2025 Generated for Jimbo ng/Fabonig/eTransmitting on: 0 04/23/2025 10:20 AM EDT
[2025-04-23 15:00] VITALS: BP 152/90; PULSE 101; TEMP 36.9; O2SAT 100; BMI 32.9
[2025-04-23 15:19] LABS: Glucose Urine UA NEGATIVE (NEGATIVE)
[2025-04-23 15:29] LABS: Cast Seen? NONE SEEN #/LPF (NONE SEEN); Crystals Seen? None Seen #/HPF (None Seen); Urine Culture Indicated NO
[2025-04-23 15:37] LABS: HCG Qualitative Urine* NEGATIVE (NEGATIVE)
[2025-04-23 15:52] LABS: Hematocrit 37.8 % (36.0-48.0); Hemoglobin 12.3 g/dL (12.0-16.0); Immature Granulocytes Abs Auto 0.00 10^3/uL (0.00-0.03); Immature Granulocytes Pct Auto 0.0 % (0.0-0.5); Lymphocytes Absolute Auto 2.4 10^3/uL (1.2-3.8); Mean Corpuscular HGB Conc 32.5 g/dL (29.9-35.2); Mean Corpuscular Hemoglobin 26.3 pg (26.7-34.0); Mean Corpuscular Volume 80.9 fL (81.0-99.0); Platelet Count 462 10^3/uL (150-450); Red Blood Count 4.67 10^6/uL (4.20-5.40); White Blood Count 6.2 10^3/uL (4.0-11.0)
[2025-04-23 15:59] LABS: Anion Gap 13.2; Blood Urea Nitrogen 7.0 mg/dL (7.0-18.0); Calcium 9.6 mg/dL (8.5-10.1); Carbon Dioxide 26.8 mmol/L (21.0-32.0); Chloride 106 mmol/L (98-107); Estimated GFR (African America >60 (>=60 mL/min/1.73m^2); Estimated GFR (Non-African Ame >60 (>=60 mL/min/1.73m^2); Glucose 101 mg/dL (74-106); Potassium 4.0 mmol/L (3.5-5.1); Sodium 142 mmol/L (136-145)
--- OUTSIDE RECORDS SUMMARY | 2025-04-23 16:38 | XMS_ITS | Encounter Summary ---
Author Organization [facility] Address [address] [place] [address] Care Team Providers Care Defect Repairer Glassware Name Role Phone Kayce Pham MD Primary Care Provider [phone] Encounter Details Date Type Department Care Team (Late st Contact Info) Description 04/08/2024 [facility] [address] [place] [address] Immanuel Hilton DO [address] [facility] [address] [place], [facility] Social History Tobacco Use Types Packs/Day Years Used Date Smoking Tobacco: Never Smokeless Tobacco: Never Alcohol Use Standard Drinks/Week Comments Not Currently 0 (1 standard drink = 0.6 oz pur e alcohol) Comments Yes Sex and Gender Information Value Date Recorded Sex Assigned at Female 11/26/2023 11:49 AM EDT Legal Sex Female 7:18 PM EDT Gender Identity Female 11/26/2023 11:49 AM EDT Sexual Orientation Not on file documented as of this encounter Plan of Treatment Not on file documented as of this encounter Visit Diagnoses Not on filedocumented in this encounter Care Teams Defect Repairer Glassware Relationship Specialty Start Date End Date Kayce Pham MD PCP - General Family Medicine 11/27/23 documented as of this encounter
--- OUTSIDE RECORDS SUMMARY | 2025-04-23 16:38 | XMS_ITS | Encounter Summary ---
Author Organization [facility] Address [address] [place] [address] Care Team Providers Care J2Ee Architect Name Role Phone Kayce Pham MD Primary Care Provider [phone] Encounter Details Date Type Department Care Team (Late st Contact Info) Description 08/20/2024 Abstract [facility] [address] [facility] [place] [phone] Immanuel Hilton DO [address] [facility] [place] [address] Social History Tobacco Use Types Packs/Day Years [...] on file documented as of this encounter Goals Goal Patient Goal Type Associated Problems Recent Progress Patient-Stated? Author Reminders Care Plan OB Reminders No Open Scheduling, Background documented as of this encounter Visit Diagnoses Not on filedocumented in this encounter Additional Health Concerns Active Problems Noted Date Diagnosed Date OB Reminders 05/18/2024 documented as of this encounter Care Teams J2Ee Architect Relationship Specialty Start Date End Date Kayce Pham MD PCP - General Family Medicine 11/27/23 documented as of this encounter
--- OUTSIDE RECORDS SUMMARY | 2025-04-23 16:38 | XMS_ITS | Encounter Summary ---
Author Organization [facility] Address [address] [place] [address] Care Team Providers Care Store Administrator Name Role Phone Kayce Pham MD Primary Care Provider [phone] Encounter Details Date Type Department Care Team (Late st Contact Info) Description 04/14/2024 Abstract [facility] [address] [facility] [place] [address] Immanuel Hilton DO [address] [facility] [address] [place], [facility]11 Social History Tobacco Use Types Packs/Day Years [...] on filedocumented in this encounter Care Teams Store Administrator Relationship Specialty Start Date End Date Kayce Pham MD PCP - General Family Medicine 11/27/23 documented as of this encounter
--- OUTSIDE RECORDS SUMMARY | 2025-04-23 16:38 | XMS_ITS | Encounter Summary ---
Author Organization [facility] Address [address] [place] [address] Care Team Providers Care Acid Purification Equipment Operator Name Role Phone Kayce Pham MD Primary Care Provider [phone] Encounter Details Date Type Department Care Team (Late st Contact Info) Description 08/19/2024 Abstract [facility] [address] [facility] [place] [phone] Immanuel Hilton DO [address] [facility] [place] [address] Social History Tobacco Use Types Packs/Day Years [...] documented as of this encounter Care Teams Acid Purification Equipment Operator Relationship Specialty Start Date End Date Kayce Pham MD PCP - General Family Medicine 11/27/23 documented as of this encounter
--- OUTSIDE RECORDS SUMMARY | 2025-04-23 16:38 | XMS_ITS | Encounter Summary ---
Author Organization [facility] Address [address] [place] [address] Care Team Providers Care Conference Center Coordinator Name Role Phone Kayce Pham MD Primary Care Provider [phone] Encounter Details Date Type Department Care Team (Late st Contact Info) Description 04/16/2024 Abstract [facility] [address] [facility] [place] [address] Immanuel Hilton DO [address] [facility] [address] [place] [place], [facility] Social History Tobacco Use Types Packs/Day Years [...] on filedocumented in this encounter Care Teams Conference Center Coordinator Relationship Specialty Start Date End Date Kayce Pham MD PCP - General Family Medicine 11/27/23 documented as of this encounter
--- OUTSIDE RECORDS SUMMARY | 2025-04-23 16:38 | XMS_ITS | Encounter Summary ---
Author Organization [facility] Address [address] [place] [address] Care Team Providers Care Medical Policy Specialist Name Role Phone Kayce Pham MD Primary Care Provider [phone] Encounter Details Date Type Department Care Team (Late st Contact Info) Description 04/08/2024 Abstract [facility] [address] [place] [address] [place] [address] Esperanza Peter LPN Social History Tobacco Use Types Packs/Day Years [...] on filedocumented in this encounter Care Teams Medical Policy Specialist Relationship Specialty Start Date End Date Kayce Pham MD PCP - General Family Medicine 11/27/23 documented as of this encounter
--- OUTSIDE RECORDS SUMMARY | 2025-04-23 16:38 | XMS_ITS | Encounter Summary ---
Author Organization [facility] [employer] [facility] tem Address [facility] [address] [place] [address] Care Team Providers Care Court Crier Name Role Phone Unavailable Primary Care Provider Unavailabl e Encounter Details Date Type Department Care Team (Late st Contact Info) Description 05/27/2024 Orders Only Maternal- Medicine at [facility] [address] [place] [address] Ref Prov, [place] [address] Social History Tobacco Use Types Packs/Day Years Used Date Smoking Tobacco: Never Smokeless Tobacco: Never Alcohol Use Standard Drinks/Week Comments Never 0 (1 standard drink = 0.6 oz pur e alcohol) Comments Yes Sex and Gender Information Value Date Recorded Sex Assigned at Not on file Legal Sex Female 3:40 PM EDT Gender Identity Not on file Sexual Orientation Not on file documented as of this encounter Plan of Treatment Not on file documented as of this encounter Procedures Procedure Name Priority Date/Time Associated Diagnosis Comments US PREG LMTD 1 OR MORE FETUS Routine 05/27/2024 10:54 AM EDT UNLISTED GENETIC TEST Routine 05/27/2024 10:52 AM EDT UNLISTED GENETIC TEST Routine 05/27/2024 10:50 AM EDT UNLISTED GENETIC TEST Routine 05/27/2024 10:47 AM EDT US PREG LMTD 1 OR MORE FETUS Routine 05/27/2024 10:19 AM EDT documented in this encounter Results * Ultrasound limited 1 or more fetus (05/27/2024 10:54 AM EDT) Anatomical Region Laterality Modality OB-GAME BREEDING FARM MANAGER Ultrasound us Not In System Ref Prov IMG US ORDERABLES Final R esult * Unlisted Genetic Test (05/27/2024 10:52 AM EDT) us Not In System Ref Prov LAB BLOOD ORDERABLES Esther l Result Performing Organization Address [facility] de Phone Number MANUALLY TRANSCRIBED RESULTS * Unlisted Genetic Test (05/27/2024 10:50 AM EDT) us Not In System Ref Prov LAB BLOOD ORDERABLES Esther l Result Performing Organization Address [facility] Phone Number MANUALLY TRANSCRIBED RESULTS * Unlisted Genetic Test (05/27/2024 10:47 AM EDT) us Not In System Ref Prov LAB BLOOD ORDERABLES Esther l Result Performing Organization Address [facility] Phone Number MANUALLY TRANSCRIBED RESULTS * Ultrasound limited 1 or more fetus (05/27/2024 10:19 AM EDT) Anatomical Region Laterality Modality OB-GAME BREEDING FARM MANAGER Ultrasound us Not In System Ref Prov IMG US ORDERABLES Final R esult documented in this encounter Visit Diagnoses Not on filedocumented in this encounter
--- OUTSIDE RECORDS SUMMARY | 2025-04-23 16:38 | XMS_ITS | Encounter Summary ---
Author Organization [facility] Address [address] [place] [address] Care Team Providers Care Nuclear Medicine Medical Director Name Role Phone Kayce Pham MD Primary Care Provider [phone] Encounter Details Date Type Department Care Team (Late st Contact Info) Description 06/29/2024 Abstract [facility] [address] [facility] [place] [phone] Immanuel Hilton DO [address] [place] [address] Social History Tobacco Use Types Packs/Day Years [...] documented as of this encounter Care Teams Nuclear Medicine Medical Director Relationship Specialty Start Date End Date Kayce Pham MD PCP - General Family Medicine 11/27/23 documented as of this encounter
--- OUTSIDE RECORDS SUMMARY | 2025-04-23 16:38 | XMS_ITS | Encounter Summary ---
Author Organization [facility] Address [address] [place] [address] Care Team Providers Care Airport Duty Manager Name Role Phone Kayce Pham MD Primary Care Provider [phone] Encounter Details Date Type Department Care Team (Late st Contact Info) Description 03/20/2024 Abstract [facility] [address] [facility] [place] [address] Immanuel Hilton DO [address] [facility] [address] [place], [facility]11 Social History Tobacco Use Types Packs/Day Years Used Date Smoking Tobacco: Never Smokeless Tobacco: Never Alcohol Use Standard Drinks/Week Comments Not Currently 0 (1 standard drink = 0.6 oz pur e alcohol) Comments No Sex and Gender Information Value Date Recorded Sex Assigned at Female 11/26/2023 11:49 AM EDT Legal Sex Female 7:18 PM EDT Gender Identity Female 11/26/2023 11:49 AM EDT Sexual Orientation Not on file documented as of this encounter Plan of Treatment Not on file documented as of this encounter Visit Diagnoses Not on filedocumented in this encounter Care Teams Airport Duty Manager Relationship Specialty Start Date End Date Kayce Pham MD PCP - General Family Medicine 11/27/23 documented as of this encounter
--- OUTSIDE RECORDS SUMMARY | 2025-04-23 16:38 | XMS_ITS | Encounter Summary ---
Author Organization [facility] Address [address] [place] [address] Care Team Providers Care Cinder Worker Name Role Phone Kayce Pham MD Primary Care Provider [phone] Encounter Details Date Type Department Care Team (Late st Contact Info) Description 05/05/2024 Clinisync Result Encounter [facility] External Department Unsolicited Immanuel Hilton, DO [address] [facility] [address] [place] [id number] Social History Tobacco Use Types Packs/Day Years [...] Name Priority Date/Time Associated Diagnosis Comments US OB TRANSVAGINAL 05/05/2024 4: 05 PM EDT documented in this encounter Results * US OB TRANSVAGINAL (05/05/2024 4:05 PM EDT) Anatomical Region Laterality Modality Other 05/05/2024 4:05 PM EDT Narrative 05/05/2024 4:07 [place] [address] Ultrasound Report Signed Patient: ANNA MARIO MR#: [id number] : 2000 Acct:[id number] Age/Sex: 23 / F ADM Date: 05/05/24 Loc: [facility] Attending Dr: Immanuel Hilton D.O. Ordering Physician: Immanuel Hilton D.O. Date of Service: 05/05/24 Procedure(s): US OB transvaginal Accession Number(s): [id number] cc: Kayce Pham M.D.; Immanuel Hilton D.O. [place] [address] Patient Name: ANNA MARIO MRN: [id number] date: 2000 Sex: F Assigned Patient Location: [facility] Current Patient Location: [facility] Accession/Order Number: [id number] Exam Date: 05/05/2024 14:52 Report Date: 05/05/2024 16:05 At the request of: IMMANUEL HILTON Procedure: US OB transvaginal EXAMINATION: US OB transvaginal HISTORY: CONCEIVED THROUGH IVF. COMPARISON: No relevant comparison available. FINDINGS: CARDIAC: 146 bpm CERVIX: 3.6 cm cm in length and closed. OTHER: None. AGE BY LMP: 15 weeks 5 days SARA BY LMP: 10/22/2024 US/US OB transvaginal IMPRESSION: 1. Single live intrauterine . 2. Cervix is 3.6 cm in length and closed. Electronically authenticated by: RONNY MIXON Date: 05/05/2024 16:05 Dictated By: Ronny Mixon M.D. Signed By: 05/05/24 1607 DD/ 04 TD/TT: Manager Video: Procedure Note Radiology, Radiologist, MD - 05/05/2024 [place] [address] Ultrasound Report Signed Patient: ANNA MARIO AMR#: [id number] : 2000Acct:[id number] Age/Sex: 23 / FADM Date: 05/05/24 Loc: [facility] Attending Dr: Immanuel Hilton D.O. Ordering Physician: Immanuel Hilton D.O. Date of Service: 05/05/24 Procedure(s): US OB transvaginal Accession Number(s): [id number] cc: Kayce Pham M.D.; Immanuel Hilton D.O. [place] [id number] Patient Name: ANNA MARIO MRN: [id number] date: 2000 Sex: F Assigned Patient Location: [facility] Current Patient Location: [facility] Accession/Order Number: [id number] Exam Date: 05/05/2024 14:52 Report Date: 05/05/2024 16:05 At the request of: IMMANUEL HILTON Procedure: US OB transvaginal EXAMINATION: US OB transvaginal HISTORY: CONCEIVED THROUGH IVF. COMPARISON: No relevant comparison available. FINDINGS: CARDIAC: 146 bpm CERVIX: 3.6 cm cm in length and closed. OTHER: None. AGE BY LMP: 15 weeks 5 days SARA BY LMP: 10/22/2024 US/US OB transvaginal IMPRESSION: 1. Single live intrauterine . 2. Cervix is 3.6 cm in length and closed. Electronically authenticated by: RONNY MIXON Date: 05/05/2024 16:05 Dictated By: Ronny Mixon M.D. Signed By:05/05/24 1607 DD/ 1605 TD/TT: Manager Video: us Immanuel Hilton DO [facility] Final Result documented in this encounter Visit Diagnoses Not on filedocumented in this encounter Care Teams Cinder Worker Relationship Specialty Start Date End Date Kayce Pham MD PCP - General Family Medicine 11/27/23 documented as of this encounter
--- OUTSIDE RECORDS SUMMARY | 2025-04-23 16:38 | XMS_ITS | Encounter Summary ---
Author Organization [facility] Address [address] [place] [address] Care Team Providers Care Insulation Sprayer Name Role Phone Kayce Pham MD Primary Care Provider [phone] Encounter Details Date Type Department Care Team (Late st Contact Info) Description 04/14/2024 Abstract [facility] [address] [facility] [place] [address] Immanuel Hilton DO [address] [facility] [address] Tisha [place], [facility]11 Social History Tobacco Use Types Packs/Day Years [...] on filedocumented in this encounter Care Teams Insulation Sprayer Relationship Specialty Start Date End Date Kayce Pham MD PCP - General Family Medicine 11/27/23 documented as of this encounter
--- OUTSIDE RECORDS SUMMARY | 2025-04-23 16:38 | XMS_ITS | Encounter Summary ---
Author Organization [facility] Address [address] [place] [address] Care Team Providers Care Carpentry Instructor Name Role Phone Kayce Pham MD Primary Care Provider [phone] Encounter Details Date Type Department Care Team (Late st Contact Info) Description 06/16/2024 Abstract [facility] [address] [place] [address] [place] [address] Esperanza Peter LPN Social History Tobacco [...] documented as of this encounter Care Teams Carpentry Instructor Relationship Specialty Start Date End Date Kayce Pham MD PCP - General Family Medicine 11/27/23 documented as of this encounter
--- OUTSIDE RECORDS SUMMARY | 2025-04-23 16:38 | XMS_ITS | Encounter Summary ---
Author Organization [facility] Address [address] [place] [address] Care Team Providers Care Food And Beverage Lead Name Role Phone Kayce Pham MD Primary Care Provider [phone] Encounter Details Date Type Department Care Team (Late st Contact Info) Description 2024 Abstract [facility] [address] [facility] [place] [phone] Immanuel Hilton DO [address] [facility] [place] [address] Social History Tobacco Use Types Packs/Day Years [...] documented as of this encounter Care Teams Food And Beverage Lead Relationship Specialty Start Date End Date Kayce Pham MD PCP - General Family Medicine 11/27/23 documented as of this encounter
--- OUTSIDE RECORDS SUMMARY | 2025-04-23 16:38 | XMS_ITS | Encounter Summary ---
Author Organization [facility] Address [address] [place] [address] Care Team Providers Care Help Desk Administrator Name Role Phone Kayce Pham MD Primary Care Provider [phone] Encounter Details Date Type Department Care Team (Late st Contact Info) Description 04/21/2024 Abstract [facility] [address] [place] [address] [place] [address] Esperanza Peter LPN Social History Tobacco [...] on filedocumented in this encounter Care Teams Help Desk Administrator Relationship Specialty Start Date End Date Kayce Pham MD PCP - General Family Medicine 11/27/23 documented as of this encounter
--- OUTSIDE RECORDS SUMMARY | 2025-04-23 16:38 | XMS_ITS | Encounter Summary ---
Author Organization [facility] Address [address] [place] [address] Care Team Providers Care Motor Overhauler Name Role Phone Kayce Pham MD Primary Care Provider [phone] Encounter Details Date Type Department Care Team (Late st Contact Info) Description 06/16/2024 Abstract [facility] [address] [facility] [place] [phone] Immanuel Hilton DO [address] [facility] [place] [address] Social History Tobacco Use Types Packs/Day Years [...] documented as of this encounter Care Teams Motor Overhauler Relationship Specialty Start Date End Date Kayce Pham MD PCP - General Family Medicine 11/27/23 documented as of this encounter
--- OUTSIDE RECORDS SUMMARY | 2025-04-23 16:38 | XMS_ITS | Encounter Summary ---
Author Organization [facility] Address [address] [place] [place] [address] Care Team Providers Care Shipwright Helper Name Role Phone Kayce Pham MD Primary Care Provider [phone] Encounter Details Date Type Department Care Team (Late st Contact Info) Description 06/29/2024 Clinisync Result Encounter [facility] External Department Unsolicited Immanuel Hilton, DO [address] [facility] [place] [address] Social History Tobacco Use Types Packs/Day Years [...] Scheduling, Background documented as of this encounter Procedures Procedure Name Priority Date/Time Associated Diagnosis Comments ECG 12-LEAD 06/29/2024 8:23 AM EST documented in this encounter Results * ECG 12-LEAD (06/29/2024 8:23 AM EST) Anatomical Region Laterality Modality Other 06/29/2024 8:23 AM EST Narrative 06/29/2024 11:09 PM EST [place] [id number] Electrocardiograph Report Signed Patient: ANNA MARIO MR#: [id number] : 2000 Acct:[id number] Age/Sex: 24 / F ADM Date: 06/29/24 Loc: CARD Attending Dr: Immanuel Hilton D.O. Ordering Physician: Immanuel Hilton D.O. Date of Service: 06/29/24 Procedure(s): ECG 12 lead Accession Number(s): [id number] cc: [facility] Test Date: 2024-06-29 Pat Name: ANNA MARIO Department: Room: - Gender: Female Mobile Phlebotomist: : 2000 Requested By: IMMANUEL HILTON Order Number: [id number] Reading MD: CHAD RUTHERFORD Measurements Intervals [place] Rate: 87 P: 33 NV: 137 QRS: 34 QRSD: 101 T: 1 QT: 339 QTc: 408 Interpretive Statements SINUS RHYTHM WARNING: DATA QUALITY MAY AFFECT INTERPRETATION No previous ECG available for comparison Electronically Signed On 06-29-2024 23:09:22 EST by CHAD RUTHERFORD Dictated By: Chad Rutherford D.O. Signed By: 06/29/24230806/29/242308 DD/ 2 TD/TT: Bung Remover: Procedure Note Radiology, Radiologist, MD - 06/29/[address] [address] Electrocardiograph Report Signed Patient: ANNA MARIO AMR#: [id number] : 2000Acct:[id number] Age/Sex: 24 / FADM Date: 06/29/24 Loc: CARD Attending Dr: Immanuel Hilton D.O. Ordering Physician: Immanuel Hilton D.O. Date of Service: 06/29/24 Procedure(s): ECG 12 lead Accession Number(s): [id number] cc: [facility] Test Date: 2024-06-29 Pat Name: ANNA FABIANO Department: Room: - Gender: Female Mobile Phlebotomist: : 2000 Requested By: IMMANUEL HILTON Order Number: [id number] Reading MD: CHAD RUTHERFORD Measurements Intervals [place] Rate: 87 P: 33 NV: 137 QRS: 34 QRSD: 101 T: 1 QT: 339 QTc: 408 Interpretive Statements SINUS RHYTHM WARNING: DATA QUALITY MAY AFFECT INTERPRETATION No previous ECG available for comparison Electronically Signed On 06-29-2024 23:09:22 EST by CHAD RUTHERFORD Dictated By: Chad Rutherford D.O. Signed By:06/29/24230806/29/242308 DD/ 2 TD/TT: Bung Remover: us Immanuel Hilton DO [facility] Final Result documented in this encounter Visit Diagnoses Not on filedocumented in this encounter Additional Health Concerns Active Problems Noted Date Diagnosed Date OB Reminders 05/18/2024 documented as of this encounter Care Teams Shipwright Helper Relationship Specialty Start Date End Date Kayce Pham MD PCP - General Family Medicine 11/27/23 documented as of this encounter
--- OUTSIDE RECORDS SUMMARY | 2025-04-23 16:38 | XMS_ITS | Encounter Summary ---
Author Organization [facility] Address [address] [place] [address] Care Team Providers Care Cbx Operator Name Role Phone Kayce Pham MD Primary Care Provider Encounter Details Date Type Department Care Team (Late st Contact Info) Description 08/15/2024 Clinisync Result Encounter [facility] External Department Unsolicited Immanuel Hilton, DO [address] [facility] [address] [place] [address] [place] [id number] Social History Tobacco Use Types Packs/Day Years [...] Procedure Name Priority Date/Time Associated Diagnosis Comments CA ECHO DOPPLER COMPLETE 08/15/2024 3:07 PM EST documented in this encounter Results * CA ECHO DOPPLER COMPLETE (08/15/2024 3:07 PM EST) Anatomical Region Laterality Modality Other 08/15/2024 3:07 PM EST Narrative 08/15/2024 3:08 [place] [address] Cardiology Report Signed Patient: ANNA MARIO MR#: [id number] : 2000 Acct:[id number] Age/Sex: 24 / F ADM Date: 08/12/24 Loc: CARD Attending Dr: Immanuel Hilton D.O. Ordering Physician: Immanuel Hilton D.O. Date of Service: 08/12/24 Procedure(s): CA echo doppler complete Accession Number(s): [id number] cc: Kayce Pham M.D.; Immanuel Hilton D.O. Patient Name: ANNA MARIO MR#: [id number] : 2000 Exam Date: 08/12/2024 Ordering Doctor: DR Immanuel Hilton . ECHOCARDIOGRAM REPORT PROCEDURE: CA ECHO DOPPLER COMPLETE INDICATIONS: Cardiac murmur, 30 weeks , hypertension COMPARISON: None. DESCRIPTION: COMPLETE ECHOCARDIOGRAM Real-time transthoracic echocardiography with 2D, M-mode, spectral and color flow Doppler performed. QUALITY: Technical quality was good. LEFT VENTRICLE: Normal chamber size. Normal left ventricular wall thickness. Normal systolic function. LV EF: Normal left ventricular ejection fraction, (55-60%). DIASTOLIC: Normal diastolic function. ATRIAL SEPTUM: LEFT ATRIUM: Normal chamber size. RIGHT ATRIUM: Normal chamber size. RIGHT VENTRICLE: Normal chamber size. Normal right ventricular systolic function. TRICUSPID VALVE: Normal mobility and thickness. No stenosis with trivial regurgitation. No evidence of pulmonary hypertension. RVSP 34 mmHg MITRAL VALVE: Normal mobility and thickness. No evidence of mitral valve stenosis. There is no mitral annular calcification. No mitral regurgitation. AORTIC VALVE: Normal trileaflet appearance. No visible sclerosis. Normal leaflet mobility. No evidence of aortic valve stenosis. No aortic regurgitation. AORTIC ROOT: Normal diameter and appearance. PULMONIC VALVE: Normal thickness and mobility. No stenosis. No regurgitation. PERICARDIUM: No evidence of pericardial effusion. IVC: Collapses with inspirations. PLEURA: CONCLUSION: 1. Normal ventricular size and systolic function. LVEF is 55-60%. 2. Normal diastolic function. 3. No significant valvular dysfunction. 4. Normal right sided pressures. Adult Echocardiography Procedure Report Left Ventricle LVEDD (3.7 - 5.6 cm): 4.97 cm LVESD (2.2 - 4.0 cm): 3.61 cm LVIVS thickness (0.6 - 1.2 cm): 0.59 cm LVPW thickness (0.5 - 1.0 cm): 0.91 cm e': 0.16 m/s E - e': 4.96 LVOT Max Gradient: 3.36 mm[Hg] LVOT Area (cm2): 0.92 m/s Peak Velocity (LVOT): 0.92 m/s LVOT Diameter 2.32 cm Left Atrium LA Volume Index (2D A2C): 20.78 ml/m2 Left Atrium Systolic Dimension: 2.75 cm Mitral Valve MV E to A Ratio: 1.57 Mitral Valve A-Wave Peak Velocity: 0.51 m/s Mitral Valve E-Wave Peak Velocity: 0.80 m/s Right Ventricle Aorta AO Root Diam: 3.15 cm Aortic Valve AoV Area (Peak Collins): 2.69 cm2, 2.69 cm2 Peak Velocity(Antegrade Flow): 1.44 m/s Peak Gradient(Antegrade Flow): 8.26 mm[Hg] Tricuspid Valve Peak Velocity (Regurgitant Flow): 2.78 m/s Pulmonic Valve Mean Gradient: 2.40 mm[Hg] Mean Velocity: 0.70 m/s Peak Velocity: 1.14 m/s, 1.15 m/s Peak Gradient: 5.33 mm[Hg], 5.20 mm[Hg] Right Atrium Right Atrium Systolic Pressure: 28.78 ml, 28.78 ml Dictated by: Alex Mckenzie M.D. on 08/15/2024 at 14:57 Approved by: Alex Mckenzie M.D. on 08/15/2024 at 15:07 Dictated By: ALEX MCKENZIE Signed By: 08/15/24 1508 DD/ 1507 TD/TT: Switchboard Wire Worker Helper: Procedure Note Radiology, Radiologist, - 08/15/2024 [place] [address] Cardiology Report Signed Patient: ANNA MARIO [facility]#: [id number] : 2000Acct:[id number] Age/Sex: Date: 08/12/24 Loc: CARD Attending Dr: Immanuel Hilton D.O. Ordering Physician: Immanuel Hilton D.O. Date of Service: 08/12/24 Procedure(s): CA echo doppler complete Accession Number(s): [id number] cc: Kayce Pham M.D.; Immanuel Hilton D.O. Patient Name: ANNA MARIO MR#: [id number] : 2000 Exam Date: 08/12/2024 Ordering Doctor: DR Immanuel Hilton . ECHOCARDIOGRAM REPORT PROCEDURE: CA ECHO DOPPLER COMPLETE INDICATIONS: Cardiac murmur, 30 weeks , hypertension COMPARISON: None. DESCRIPTION: COMPLETE ECHOCARDIOGRAM Real-time transthoracic echocardiography with 2D, M-mode, spectral and color flow Dopplerperformed. QUALITY: Technical quality was good. LEFT VENTRICLE: Normal chamber size. Normal left ventricular wall thickness. Normal systolic function. LV EF: Normal left ventricular ejection fraction, (55-60%). DIASTOLIC: Normal diastolic function. ATRIAL SEPTUM: LEFT ATRIUM: Normal chamber size. RIGHT ATRIUM: Normal chamber size. RIGHT VENTRICLE: Normal chamber size. Normal right ventricularsystolic function. TRICUSPID VALVE: Normal mobility and thickness. No stenosis withtrivial regurgitation. No evidence of pulmonary hypertension. RVSP 34 mmHg MITRAL VALVE: Normal mobility and thickness. No evidence of mitralvalve stenosis. There is no mitral annular calcification. No mitralregurgitation. AORTIC VALVE: Normal trileaflet appearance. No visible sclerosis.Normal leaflet mobility. No evidence of aortic valve stenosis. No aortic regurgitation. AORTIC ROOT: Normal diameter and appearance. PULMONIC VALVE: Normal thickness and mobility. No stenosis. No regurgitation. PERICARDIUM: No evidence of pericardial effusion. IVC: Collapses with inspirations. PLEURA: CONCLUSION: 1. Normal ventricular size and systolic function. LVEF is 55-60%. 2. Normal diastolic function. 3. No significant valvular dysfunction. 4. Normal right sided pressures. Adult Echocardiography Procedure Report Left Ventricle LVEDD (3.7 - 5.6 cm): 4.97 cm LVESD (2.2 - 4.0 cm): 3.61 cm LVIVS thickness (0.6 - 1.2 cm): 0.59 cm LVPW thickness (0.5 - 1.0 cm): 0.91 cm e': 0.16 m/s E - e': 4.96 LVOT Max Gradient: 3.36 mm[Hg] LVOT Area (cm2): 0.92 m/s Peak Velocity (LVOT): 0.92 m/s LVOT Diameter 2.32 cm Left Atrium LA Volume Index (2D A2C): 20.78 ml/m2 Left Atrium Systolic Dimension: 2.75 cm Mitral Valve MV E to A Ratio: 1.57 Mitral Valve A-Wave Peak Velocity: 0.51 m/s Mitral Valve E-Wave Peak Velocity: 0.80 m/s Right Ventricle Aorta AO Root Diam: 3.15 cm Aortic Valve AoV Area (Peak Collins): 2.69 cm2, 2.69 cm2 Peak Velocity(Antegrade Flow): 1.44 m/s Peak Gradient(Antegrade Flow): 8.26 mm[Hg] Tricuspid Valve Peak Velocity (Regurgitant Flow): 2.78 m/s Pulmonic Valve Mean Gradient: 2.40 mm[Hg] Mean Velocity: 0.70 m/s Peak Velocity: 1.14 m/s, 1.15 m/s Peak Gradient: 5.33 mm[Hg], 5.20 mm[Hg] Right Atrium Right Atrium Systolic Pressure: 28.78 ml, 28.78 ml Dictated by: Alex Mckenzie M.D. on 08/15/2024 at 14:57 Approved by: Alex Mckenzie M.D. on 08/15/2024 at 15:07 Dictated By: ALEX MCKENZIE Signed By:08/15/24 1508 DD/ 1507 TD/TT: Switchboard Wire Worker Helper: us Immanuel Yobani DO [facility] Final Result documented in this encounter Visit Diagnoses Not on filedocumented in this encounter Additional Health Concerns Active Problems Noted Date Diagnosed Date OB Reminders 05/18/2024 documented as of this encounter Care Teams Cbx Operator Relationship Specialty Start Date End Date Kayce Pham MD PCP - General Family Medicine 11/27/23 documented as of this encounter
--- OUTSIDE RECORDS SUMMARY | 2025-04-23 16:38 | XMS_ITS | Encounter Summary ---
Author Organization [facility] Address [address] [place] [address] Care Team Providers Care Property Adjuster Name Role Phone Kayce Pham MD Primary Care Provider [phone] Encounter Details Date Type Department Care Team (Late st Contact Info) Description 07/20/2024 Abstract [facility] [address] [facility] [place] [phone] Immanuel Hilton DO [address] [facility] [place] [address] Social History Tobacco Use Types Packs/Day Years [...] documented as of this encounter Care Teams Property Adjuster Relationship Specialty Start Date End Date Kayce Pham MD PCP - General Family Medicine 11/27/23 documented as of this encounter
--- OUTSIDE RECORDS SUMMARY | 2025-04-23 16:38 | XMS_ITS | Clinical Summary ---
Author Organization [facility] Address [address] [place] [address] Care Team Providers Care Hairspring Adjuster Name Role Phone Kayce Pham MD Primary Care Provider [phone] Allergies Active Allergy Reactions Criticality Noted Date Comments Latex Hives,Itching,Rash,S welli ng Low 11/27/2023 Other Reaction(s): Unknown Nifedipine Palpitations Low 09/28/2024 Flushing, increased heart rate, shaking Other Reaction(s): High BP Wing Oil 03/27/2024 Other Reaction(s): Unknown Medications Multiple Vitamin (multivitamin) tablet Take 1 tablet by mouth Daily Active ibuprofen 800 MG tablet Take 800 mg by mouth every 4 (four) hours if needed for moderate pain 5 Active oxyCODONE-acetamino phen (Percocet) 5-325 MG tablet Take 1 tablet by mouth every 8 (eight) hours if needed for moderate pain 5 Active labetalol (Normodyne) 100 MG tablet Take 100 mg by mouth in the morning and 100 mg before bedtime. Active iron polysaccharides (ProFe) 391.3 (180 Fe) MG capsuleIndications: Vaginal bleeding Take 1 capsule (391.3 mg) by mouth Daily 30 capsule 3 5 05/23/20 25 Active Resolved Problems Problem Noted Date Diagnosed Date Resolved Date 26 weeks gestation of ([facility]) 07/20/2024 10/01/2024 14 weeks gestation of ([facility]) 04/27/2024 10/01/2024 Second trimester ([facility]) 04/27/2024 10/01/2024 Encounters Date Type Department Care Team Description 04/23/2025 Telephone [facility] [address] [facility] [place] [address] Marilyn Renteria NP from Last 3 Months Family History Medical History Relation Name Comments Diabetes Father Marleny Pfeiffer Heart failure Father Marleny Pfeiffer Heart failure Father's Brother A baby- hole in heart r esulted in Relation Name Status Comments Father Marleny Pfeiffer Father's Brother A baby- hole in heart resulted in michelle th Social History Tobacco Use Types Packs/Day Years Used Date Smoking Tobacco: Never Smokeless Tobacco: Never Tobacco Cessation:Counseling Given: Not Answered Alcohol Use Standard Drinks/Week Comments Not Currently 0 (1 standard drink = 0.6 oz pur e alcohol) Comments No Sex and Gender Information Value Date Recorded Sex Assigned at Female 11/26/2023 11:49 AM EDT Legal Sex Female 7:18 PM EDT Gender Identity Female 11/26/2023 11:49 AM EDT Sexual Orientation Not on file Last Filed Vital Signs Vital Sign Reading Time Taken Comments Blood Pressure 126/76 10/19/2024 4:00 PM EDT Pulse - - Temperature - - Respiratory Rate - - Oxygen Saturation - - Inhaled Oxygen Concentration - - Weight 81.6 kg (180 lb) 10/19/2024 4:00 PM EDT Height 157.5 cm (5' 2 ) 01/02/2024 2:25 PM EDT Body Mass Index 32.92 01/02/2024 2:25 PM EDT Plan of Treatment Health Maintenance Due Date Last Done Comments Influenza Vaccine (#1) 2025 Goals Goal Patient Goal Type Associated Problems Recent Progress Patient-Stated? Author Reminders Care Plan OB Reminders No Open Scheduling, Background Additional Health Concerns Active Problems Noted Date Diagnosed Date OB Reminders 05/18/2024 Insurance [employer] Member Subscriber Plan / Payer (Ef fective 2021-Present) Name:Amy Singleton Bushra Relation to Subscriber:Child Name:MARLENY PFEIFFER Date of :1969 Address: [address] [place] [address] [address] [place] [address] Payer ID:Not on file Type:Not on file Address: [place] [id number] [employer] Care Teams Hairspring Adjuster Relationship Specialty Start Date End Date Kayce Pham MD PCP - General Family Medicine 11/27/23
--- OUTSIDE RECORDS SUMMARY | 2025-04-23 16:38 | XMS_ITS | Encounter Summary ---
Author Organization [facility] Address [address] [place] [address] Care Team Providers Care Collection Manager Name Role Phone Kayce Pham MD Primary Care Provider [phone] Encounter Details Date Type Department Care Team (Late st Contact Info) Description 08/05/2024 Clinisync Result Encounter [facility] External Department Unsolicited Immanuel Hilton, DO [address] [facility] [address] [address] [place] [id number] Social History Tobacco Use Types Packs/Day Years [...] Priority Date/Time Associated Diagnosis Comments US OB GROWTH 08/05/2024 10:56 AM EST documented in this encounter Results * US OB GROWTH (08/05/2024 10:56 AM EST) Anatomical Region Laterality Modality Other 08/05/2024 10:5 6 AM EST Narrative 08/05/2024 10:59 [place] [address] Ultrasound Report Signed Patient: ANNA MARIO MR#: [id number] : 2000 Acct:[id number] Age/Sex: 24 / F ADM Date: 08/05/24 Loc: US Attending Dr: Immanuel Hilton D.O. Ordering Physician: Immanuel Hilton D.O. Date of Service: 08/05/24 Procedure(s): US OB growth Accession Number(s): [id number] cc: Kayce Pham M.D.; Immanuel Hilton D.O. [place] [id number] Patient Name: ANNA MARIO MRN: [id number] date: 2000 Sex: F Assigned Patient Location: US Current Patient Location: US Accession/Order Number: [id number] Exam Date: 08/05/2024 09:41 Report Date: 08/05/2024 10:56 At the request of: IMMANUEL HILTON Procedure: US OB growth EXAMINATION: US OB growth HISTORY: resulting from in vitro fertilization COMPARISON: No relevant comparison available. FINDINGS: Heart Rate: 156.07 bpm Amniotic Fluid Volume: 18 cm, largest fluid pocket 5.7 cm Number: 1 Position: Cephalic presentation, longitudinal lie BIOMETRY: BPD: 7.39 cm; 29 weeks 5 days; 63.20 % HC: 27.16 cm; 29 weeks 4 days; 40 % AC: 25.66 cm; 29 weeks 6 days; 72.70 % FL: 5.66 cm; 29 weeks 5 days; 60.30 % EFW: 1449.24 g; 71.10 %, 3 lbs. 3 oz. FL/AC: 22.05 FL/BPD: 76.61 HC/AC: 1.06 GESTATIONAL AGE: Age by EDC: 28 weeks 6 days SARA by EDC: 2024-10-22 Age by US: 29 weeks 5 days SARA by US: 2024-10-16 US/US OB growth IMPRESSION: Normal interval growth Electronically authenticated by: CLEMENTINE DEWEY Date: 08/05/2024 10:56 Dictated By: Clementine Dewey M.D. Signed By: 08/05/24 1059 DD/ 1056 TD/TT: Network Security Consultant: Procedure Note Radiology, Radiologist, - 08/05/2024 [place] [address] Ultrasound Report Signed Patient: ANNA MARIO [facility]#: [id number] : 2000Acct:[id number] Age/Sex: Date: 08/05/24 Loc: US Attending Dr: Immanuel Hilton D.O. Ordering Physician: Immanuel Hilton D.O. Date of Service: 08/05/24 Procedure(s): US OB growth Accession Number(s): [id number] cc: Kayce Pham M.D.; Immanuel Hilton D.O. The [place] [id number] Patient Name: ANNA MARIO MRN: [id number] date: 2000 Sex: F Assigned Patient Location: US Current Patient Location: US Accession/Order Number: [id number] Exam Date: 08/05/2024 09:41 Report Date: 08/05/2024 10:56 At the request of: IMMANUEL HILTON Procedure: US OB growth EXAMINATION: US OB growth HISTORY: resulting from in vitro fertilization COMPARISON: No relevant comparison available. FINDINGS: Heart Rate: 156.07 bpm Amniotic Fluid Volume: 18 cm, largest fluid pocket 5.7 cm Number: 1 Position: Cephalic presentation, longitudinal lie BIOMETRY: BPD: 7.39 cm; 29 weeks 5 days; 63.20 % HC: 27.16 cm; 29 weeks 4 days; 40 % AC: 25.66 cm; 29 weeks 6 days; 72.70 % FL: 5.66 cm; 29 weeks 5 days; 60.30 % EFW: 1449.24 g; 71.10 %, 3 lbs. 3 oz. FL/AC: 22.05 FL/BPD: 76.61 HC/AC: 1.06 GESTATIONAL AGE: Age by EDC: 28 weeks 6 days SARA by EDC: 2024-10-22 Age by US: 29 weeks 5 days SARA by US: 2024-10-16 US/US OB growth IMPRESSION: Normal interval growth Electronically authenticated by: CLEMENTINE DEWEY Date: 08/05/2024 10:56 Dictated By: Clementine Dewey M.D. Signed By:08/05/24 1059 DD/ 1056 TD/TT: Network Security Consultant: us Immanuel Yobani DO [facility] Final Result documented in this encounter Visit Diagnoses Not on filedocumented in this encounter Additional Health Concerns Active Problems Noted Date Diagnosed Date OB Reminders 05/18/2024 documented as of this encounter Care Teams Collection Manager Relationship Specialty Start Date End Date Kayce Pham MD PCP - General Family Medicine 11/27/23 documented as of this encounter
--- OUTSIDE RECORDS SUMMARY | 2025-04-23 16:38 | XMS_ITS | Encounter Summary ---
Author Organization [facility] Address [address] [place] [address] Care Team Providers Care Belt Cutter Name Role Phone Kayce Pham MD Primary Care Provider [phone] Encounter Details Date Type Department Care Team (Late st Contact Info) Description 03/31/2024 Clinisync Result Encounter [facility] External Department Unsolicited Immanuel Hilton, DO [address] [facility] [address] [address] [place] [id number] Social History Tobacco Use Types Packs/Day Years [...] Date/Time Associated Diagnosis Comments US OB TRANSVAGINAL 03/31/2024 4: 16 AM EDT documented in this encounter Results * US OB TRANSVAGINAL (03/31/2024 4:16 AM EDT) Anatomical Region Laterality Modality Other 03/31/2024 4:16 AM EDT Narrative 03/31/2024 4:19 AM EDT The [address] [address] Ultrasound Report Signed Patient: ANNA MARIO MR#: [id number] : 2000 Acct:[id number] Age/Sex: 23 / F ADM Date: 03/27/24 Loc: [facility] Attending Dr: Immanuel Hilton D.O. Ordering Physician: Immanuel Hilton D.O. Date of Service: 03/27/24 Procedure(s): US OB transvaginal Accession Number(s): [id number] cc: Kayce Pham M.D.; Immanuel Hilton D.O. The [place] [address] Patient Name: ANNA MARIO MRN: [id number] date: 2000 Sex: F Assigned Patient Location: [facility] Current Patient Location: Accession/Order Number: [id number] Exam Date: 03/27/2024 09:26 Report Date: 03/31/2024 04:16 At the request of: IMMANUEL HILTON Procedure: US OB transvaginal EXAMINATION: US OB transvaginal HISTORY: Missed menses COMPARISON: No relevant comparison available. FINDINGS: GESTATIONAL SAC: Present and normal appearing. YOLK SAC: Present and normal appearing. POLE: Present and normal appearing. CARDIAC: Present. UTERUS: Normal size and appearance. OVARIES: Right: Normal. Left: Not seen. CERVIX: 3.3 cm in length and closed. CUL-DE-SAC: Normal. OTHER: None. AGE BY LMP: 10 weeks 1 day SARA BY LMP: 10/22/2024 AGE BY US CRL: 10 weeks 0 days SARA BY US CRL: 10/23/2024 US/US OB transvaginal IMPRESSION: 1. Single live intrauterine . Electronically authenticated by: RONNY MIXON Date: 03/31/2024 04:16 Dictated By: Ronny Mixon M.D. Signed By: 03/31/24 0419 DD/ 0416 TD/TT: Fountain Pen Turner: Procedure Note Radiology, Radiologist, MD - 03/31/2024 [place] [address] Ultrasound Report Signed Patient: ANNA MARIO AMR#: [id number] : 2000Acct:[id number] Age/Sex: 23 / FADM Date: 03/27/24 Loc: [facility] Attending Dr: Immanuel Hilton D.O. Ordering Physician: Immanuel Hilton D.O. Date of Service: 03/27/24 Procedure(s): US OB transvaginal Accession Number(s): [id number] cc: Kayce Pham M.D.; Immanuel Hilton D.O. The [place] [address] Patient Name: ANNA MARIO MRN: [id number] date: 2000 Sex: F Assigned Patient Location: [facility] Current Patient Location: Accession/Order Number: [id number] Exam Date: 03/27/2024 09:26 Report Date: 03/31/2024 04:16 At the request of: IMMANUEL HILTON Procedure: US OB transvaginal EXAMINATION: US OB transvaginal HISTORY: Missed menses COMPARISON: No relevant comparison available. FINDINGS: GESTATIONAL SAC: Present and normal appearing. YOLK SAC: Present and normal appearing. POLE: Present and normal appearing. CARDIAC: Present. UTERUS: Normal size and appearance. OVARIES: Right: Normal. Left: Not seen. CERVIX: 3.3 cm in length and closed. CUL-DE-SAC: Normal. OTHER: None. AGE BY LMP: 10 weeks 1 day SARA BY LMP: 10/22/2024 AGE BY US CRL: 10 weeks 0 days SARA BY US CRL: 10/23/2024 US/US OB transvaginal IMPRESSION: 1. Single live intrauterine . Electronically authenticated by: RONNY MIXON Date: 03/31/2024 04:16 Dictated By: Ronny Mixon M.D. Signed By:03/31/24 0419 DD/ 041 TD/TT: Fountain Pen Turner: us Immanuel Hilton DO [facility] Final Result documented in this encounter Visit Diagnoses Not on filedocumented in this encounter Care Teams Belt Cutter Relationship Specialty Start Date End Date Kayce Pham MD PCP - General Family Medicine 11/27/23 documented as of this encounter
--- OUTSIDE RECORDS SUMMARY | 2025-04-23 16:38 | XMS_ITS | Encounter Summary ---
Author Organization [facility] Address [address] [place] [address] Care Team Providers Care Director Of Flight Operations Name Role Phone Kayce Pham MD Primary Care Provider [phone] Encounter Details Date Type Department Care Team (Late st Contact Info) Description 04/02/2024 Abstract [facility] [address] [facility] [place] [address] Immanuel Hilton DO [address] [facility] [address] [place], [facility]11 Social History Tobacco Use Types Packs/Day [...] on filedocumented in this encounter Care Teams Director Of Flight Operations Relationship Specialty Start Date End Date Kayce Pham MD PCP - General Family Medicine 11/27/23 documented as of this encounter
--- OUTSIDE RECORDS SUMMARY | 2025-04-23 16:38 | XMS_ITS | Encounter Summary ---
Author Organization [facility] Address [address] [place] [address] Care Team Providers Care Special Needs Babysitter Name Role Phone Kayce Pham MD Primary Care Provider [phone] Encounter Details Date Type Department Care Team (Late st Contact Info) Description 08/20/2024 Abstract [facility] [address] [facility] [place] [phone] Immanuel Hilton DO [address] [facility] [place] [address] Social History Tobacco Use Types Packs/Day Years [...] documented as of this encounter Care Teams Special Needs Babysitter Relationship Specialty Start Date End Date Kayce Pham MD PCP - General Family Medicine 11/27/23 documented as of this encounter
--- OUTSIDE RECORDS SUMMARY | 2025-04-23 16:38 | XMS_ITS | Encounter Summary ---
Author Organization [facility] Address [address] [place] [address] Care Team Providers Care Tower Equipment Installer Name Role Phone Kayce Pham MD Primary Care Provider [phone] Encounter Details Date Type Department Care Team (Late st Contact Info) Description 06/18/2024 Abstract [facility] [address] [facility] [place] [address] Lizzy Bosch PA [address] [facility] [address] [place], [facility]11 Social History Tobacco Use Types Packs/Day [...] documented as of this encounter Care Teams Tower Equipment Installer Relationship Specialty Start Date End Date Kayce Pham MD PCP - General Family Medicine 11/27/23 documented as of this encounter
--- OUTSIDE RECORDS SUMMARY | 2025-04-23 16:38 | XMS_ITS | Encounter Summary ---
Author Organization [facility] Address [address] [place] [place] [address] Care Team Providers Care Seismic Interpreter Name Role Phone Kayce Pham MD Primary Care Provider [phone] Encounter Details Date Type Department Care Team (Late st Contact Info) Description 07/17/2024 Abstract [facility] [address] [facility] [place] [phone] Immanuel Hilton DO [address] [facility] [place] [address] Social History Tobacco Use Types Packs/Day Years [...] documented as of this encounter Care Teams Seismic Interpreter Relationship Specialty Start Date End Date Kayce Pham MD PCP - General Family Medicine 11/27/23 documented as of this encounter
--- OUTSIDE RECORDS SUMMARY | 2025-04-23 16:38 | XMS_ITS | Encounter Summary ---
Author Organization [facility] Address [address] [place] [address] Care Team Providers Care Lime Trimmer Name Role Phone Kayce Pham MD Primary Care Provider [phone] Encounter Details Date Type Department Care Team (Late st Contact Info) Description 07/01/2024 Abstract [facility] [address] [facility] [place] [phone] Immanuel Hilton DO [address] [facility] [place] [address] Social History Tobacco Use Types Packs/Day Years [...] documented as of this encounter Care Teams Lime Trimmer Relationship Specialty Start Date End Date Kayce Pham MD PCP - General Family Medicine 11/27/23 documented as of this encounter
--- OUTSIDE RECORDS SUMMARY | 2025-04-23 16:38 | XMS_ITS | Encounter Summary ---
Author Organization [facility] Address [address] [place] [address] Care Team Providers Care Third Mate Name Role Phone Kayce Pham MD Primary Care Provider [phone] Encounter Details Date Type Department Care Team (Late st Contact Info) Description 08/12/2024 Abstract [facility] [address] [facility] [place] [phone] Immanuel Hliton DO [address] [facility] [place] [address] Social History Tobacco Use Types Packs/Day Years [...] documented as of this encounter Care Teams Third Mate Relationship Specialty Start Date End Date Kayce Pham MD PCP - General Family Medicine 11/27/23 documented as of this encounter
--- OUTSIDE RECORDS SUMMARY | 2025-04-23 16:38 | XMS_ITS | Clinical Summary ---
Author Organization [employer] tem Address [id number] [address] [place] [address] Care Team Providers Care Ski Technician Name Role Phone Unavailable Primary Care Provider Unavailabl e Allergies Active Allergy Reactions Criticality Noted Date Comments Latex, Natural Rubber 05/27/2024 Blanco 05/27/2024 Medications metFORMIN (GLUCOPHAGE) 500 mg tablet Take 1 tablet (500 mg total) by mouth in the morning and 1 tablet (500 mg total) before bedtime. Active no122/iron/folic acid ( MULTI ORAL) Take 1 tablet by mouth in the morning. Active cholecalciferol, vitamin D3, 2,000 units tablet Take 1 tablet (2,000 Units total) by mouth in the morning. Active labetaloL (NORMODYNE) 200 mg tablet Take 1 tablet (200 mg total) by mouth in the morning. Active acyclovir (ZOVIRAX) 800 mg tablet Take 1 tablet (800 mg total) by mouth in the morning and 1 tablet (800 mg total) before bedtime. Active ondansetron (ZOFRAN) 4 mg tablet Take 1 tablet (4 mg total) by mouth every 8 (eight) hours as needed for nausea or vomiting. Active predniSONE (DELTASONE) 5 mg tablet Take 1 tablet (5 mg total) by mouth in the morning. Active aspirin 81 mg chewable tabletIndications: 21 weeks gestation of ,Chronic hypertension affecting ,In vitro fertilization Take 1 tablet once a day until delivery and then stop 30 tablet 6 Active Active Problems Problem Noted Date Diagnosed Date Hypertension 05/27/2024 Female infertility 05/27/2024 In vitro fertilization 05/27/2024 PCOS (polycystic ovarian syndrome) 05/27/2024 Family History Medical History Relation Name Comments Diabetes Father Heart disease Father Heart disease Paternal Uncle Relation Name Status Comments Father Paternal Uncle Social History Tobacco Use Types Packs/Day Years Used Date Smoking Tobacco: Never Smokeless Tobacco: Never Tobacco Cessation:Counseling Given: Not Answered Alcohol Use Standard Drinks/Week Comments Never 0 (1 standard drink = 0.6 oz pur e alcohol) Comments No Sex and Gender Information Value Date Recorded Sex Assigned at Not on file Legal Sex Female 3:40 PM EDT Gender Identity Not on file Sexual Orientation Not on file Last Filed Vital Signs Vital Sign Reading Time Taken Comments Blood Pressure 137/88 06/15/2024 10:27 AM EST Pulse 99 06/15/2024 10:27 AM EST Temperature - - Respiratory Rate 18 06/15/2024 10:27 AM EST Oxygen Saturation - - Inhaled Oxygen Concentration - - Weight 84.8 kg (187 lb) 06/15/2024 10:27 AM EST Height - - Body Mass Index - - Plan of Treatment Health Maintenance Due Date Last Done Comments Depression Screening 2011 Adult BMI Screening 2017 DTaP,Tdap and Td Vaccines (1 - Tdap) 2018 COVID-19 Vaccine (3 - season) 03/29/202512/2021, 01/10/2022 Influenza Vaccine 03/29/2025 Tobacco Screening 06/15/2025 06/15/2024 Pap Smear 05/25/2027 05/25/2024 Medical Devices Not on file Insurance [address] [place] [id number] [employer] Member Subscriber Plan / Payer (Ef fective 2023-Present) Name:Amy Mario Relation to Subscriber:Spouse Name:MICKI MARIO Date of :1998 Address: [address] [place] [address] [address] [id number] Payer ID:Not on file Type:Not on file Address: [address]
--- OUTSIDE RECORDS SUMMARY | 2025-04-23 16:38 | XMS_ITS | Encounter Summary ---
Author Organization [facility] Address [address] [place] [address] Care Team Providers Care Field Assistant Name Role Phone Kayce Pham MD Primary Care Provider [phone] Encounter Details Date Type Department Care Team (Late st Contact Info) Description 07/01/2024 Abstract [facility] [address] [facility] [place] [phone] Immanuel Hilton DO [address] [facility] [place] [address] Social History Tobacco Use Types Packs/Day Years [...] documented as of this encounter Care Teams Field Assistant Relationship Specialty Start Date End Date Kayce Pham MD PCP - General Family Medicine 11/27/23 documented as of this encounter
--- OUTSIDE RECORDS SUMMARY | 2025-04-23 16:38 | XMS_ITS | Encounter Summary ---
Author Organization [facility] Address [address] [place] [address] Care Team Providers Care Starch Crab Name Role Phone Kayce Pham MD Primary Care Provider [phone] Encounter Details Date Type Department Care Team (Late st Contact Info) Description 08/21/2024 Abstract [facility] [address] [place] [phone] Immanuel Hilton DO [address] [facility] [place] [address] Social History Tobacco Use Types Packs/Day Years [...] documented as of this encounter Care Teams Starch Crab Relationship Specialty Start Date End Date Kayce Pham MD PCP - General Family Medicine 11/27/23 documented as of this encounter
--- OUTSIDE RECORDS SUMMARY | 2025-04-23 16:38 | XMS_ITS | Encounter Summary ---
Author Organization [facility] Address [address] [place] [address] Care Team Providers Care Plastic Sheets Finishing Supervisor Name Role Phone Kayce Pham MD Primary Care Provider [phone] Encounter Details Date Type Department Care Team (Late st Contact Info) Description 04/08/2024 Abstract [facility] [address] [facility] [place] [address] Immanuel Hilton DO [address] [facility] [address] [place], [facility]11 Social History Tobacco Use Types Packs/Day Years [...] on filedocumented in this encounter Care Teams Plastic Sheets Finishing Supervisor Relationship Specialty Start Date End Date Kayce Pham MD PCP - General Family Medicine 11/27/23 documented as of this encounter
--- OUTSIDE RECORDS SUMMARY | 2025-04-23 16:38 | XMS_ITS | Encounter Summary ---
Author Organization [facility] Address [address] [place] [address] Care Team Providers Care Marketing Services Manager Name Role Phone Kayce Pham MD Primary Care Provider [phone] Encounter Details Date Type Department Care Team (Late st Contact Info) Description 03/31/2024 Abstract [facility] [address] [facility] [place] [address] Immanuel Hilton DO [address] [facility] [address] [place], [facility]11 Social History Tobacco Use Types Packs/Day Years [...] on filedocumented in this encounter Care Teams Marketing Services Manager Relationship Specialty Start Date End Date Kayce Pham MD PCP - General Family Medicine 11/27/23 documented as of this encounter
--- OUTSIDE RECORDS SUMMARY | 2025-04-23 16:38 | XMS_ITS | Encounter Summary ---
Author Organization [facility] Address [address] [place] [address] Care Team Providers Care Propellant Assembler Name Role Phone Kayce Pham MD Primary Care Provider [phone] Encounter Details Date Type Department Care Team (Late st Contact Info) Description 06/03/2024 Orders Only [facility] [address] [facility] [address] [address] Cheryl Castillo LPN 102 [employer] [place] [phone] Social History Tobacco Use Types Packs/Day Years [...] Procedure Name Priority Date/Time Associated Diagnosis Comments PAP SMEAR Routine 05/25/2024 12:00 AM EDT documented in this encounter Results * Pap Smear (05/25/2024 12:00 AM EDT) Swab Cervical swab / Unknown us Immanuel Hilton DO LAB CYTOLOGY ORDERABLES Final Re sult EXTERNAL LAB documented in this encounter Visit Diagnoses Not on filedocumented in this encounter Additional Health Concerns Active Problems Noted Date Diagnosed Date OB Reminders 05/18/2024 documented as of this encounter Care Teams Propellant Assembler Relationship Specialty Start Date End Date Kayce Pham MD PCP - General Family Medicine 11/27/23 documented as of this encounter
--- OUTSIDE RECORDS SUMMARY | 2025-04-23 16:39 | XMS_ITS | Encounter Summary ---
Author Organization [facility] Address [address] [place] [address] Care Team Providers Care Access Services Librarian Name Role Phone Kayce Pham MD Primary Care Provider [phone] Encounter Details Date Type Department Care Team (Late st Contact Info) Description 01/06/2025 Abstract [facility] [address] [facility] [place] [phone] Immanuel Hilton DO [address] [facility] [place] [address] Social History Tobacco Use Types Packs/Day Years [...] documented as of this encounter Care Teams Access Services Librarian Relationship Specialty Start Date End Date Kayce Pham MD PCP - General Family Medicine 11/27/23 documented as of this encounter
--- OUTSIDE RECORDS SUMMARY | 2025-04-23 16:39 | XMS_ITS | Patient Health Record ---
Author Organization [facility] Address [address] [place] [address] Care Team Providers Care Excellence Consultant Name Role Phone Jazmine Saunders Primary Care Provider [phone] Allergies Allergen (clinical drug ingredient) Drug/Non Drug Allergy documented on EMR Reaction Allergy Type Onset Date Status Procardia High BP Drug Allergy 09/28/2024 Active Quincy Unknown Drug Allergy Active Latex Latex Unknown Allergy Active Reason For Referral No Information Medications Medication SIG (Take, Route, Frequency, Duration) Notes Start Date End Date Status Cetirizine HCl 10 MG TAKE 1 TABLET BY [facility] EVERY DAY FOR 30 DAYS; Duration: 90 Active hydrOXYzine HCl 25 MG 1-2 tabs as needed for anxiety and itching Orally three times daily; Duration: 10 days 07/16/2023 Not-Taking QUEtiapine Fumarate 50 MG TAKE 1-2 TABLE TS Orally Once a day; Duration: 90 days Not-Taking metFORMIN HCl 1000 MG 1 tablet with a me al Orally twice a day (bid) Active Social History Tobacco Use: Social History Observation Description Date Details (start date - stop date) Never Smoker NA - NA Tobacco Screen: Question Answer Notes Are you a: never smoker Alcohol Screening: Question Answer Notes Did you have a drink contain ing alcohol in the past year? Yes How often did you have a dri nk containing alcohol in the past year? Two to four times a month (2 points) How many drinks did you have on a typical day when you were drinking in the past year? 1 or 2 (0 points) Points 2 Interpretation Negative Tobacco Control (Standard) Question Answer Notes Tobacco use: Nonsmoker Additional Findings: Tobacco non-user Current no nsmoker Problems Problem Type SNOMED Code ICD Code Onset Dates Problem Status W/U Status Risk Notes Problem Bipolar II disorder (15013406) Bipolar II disorder (F31.81) Active confirmed Encounters Encounter Location Date Provider Diagnosis [facility] [address] [place] [address] 07/14/2024 Jazmine Saunders Bipolar II disorder F31.81 [facility] [address] [place] [address] 10/12/2024 Jazmine Saunders Bipolar II disorder F31.81 Assessments Encounter Date Diagnosis (ICD Code) Assessment Notes Treatment Notes Treatment Clinical Notes Section Notes 07/14/2024 Bipolar II disorder (ICD-10 - F31.81) . Informed consent obtained: YES, we discussed the diagnosis/diagnoses , the treatment options, treatment(s) recommended vs. no treatment. We discussed risks and benefits of treatment options, treatment recommendations vs. no treatment. . . Discussed lifestyle/diet changes to help improve BMI. Recommend increasing activity, reducing portion sizes, limiting carbohydrates, increasing protein as appropriate. Discussed referral to press officer if problem persists. . . Continue current treatment plan, tolerating meds well, compliant; call for problems . GOALS: Maintain medication regimen Maintain mood stability Maintain anxiety stability Maintain social and interpersonal functioning Maintain attention and hyperactivity . . Second generation antipsychotic medications can cause headache, drowsiness, agitation, dizziness, nausea, or extrapyramidal symptoms such as tremors, muscle spasms, slowness of movement or jerking of muscles. . . Currently at low risk for self harm. Denies ongoing feelings of hopelessness. Denies ongoing suicidal ideation, intent or plan in session. . 10/12/2024 Bipolar II disorder (ICD-10 - F31.81) no treatment at this time monitoring . . Informed consent obtained: YES, we discussed the diagnosis/diagnoses , the treatment options, treatment(s) recommended vs. no treatment. We discussed risks and benefits of treatment options, treatment recommendations vs. no treatment. . . Discussed lifestyle/diet changes to help improve BMI. Recommend increasing activity, reducing portion sizes, limiting carbohydrates, increasing protein as appropriate. Discussed referral to press officer if problem persists. . . Continue current treatment plan, tolerating meds well, compliant; call for problems . GOALS: Maintain medication regimen Maintain mood stability Maintain anxiety stability Maintain social and interpersonal functioning Maintain attention and hyperactivity . . Currently at low risk for self harm. Denies ongoing feelings of hopelessness. Denies ongoing suicidal ideation, intent or plan in session. . Plan Of Treatment Next Appt Details Provider Name:Jazmine Saunders, 05/10/2025 03:00:00 PM, [address], [place], [address], Insurance Providers Payer Name Payer Address Payer Phone Subscriber Number Group Number Insured Name Patient Relationship to Insured Coverage Start Date Coverage End Date [employer] [address] [place] [phone] [id number] ANNA MARIO Self - patient is the insured 1 5 Sec [employer] PPO [address] [place] [address] [phone] [id number] FABIANO MICKI Spouse - patient is the spouse of the insured 9 ANTHEM Secondary [address] [place] [address] [id number] ELIJAH HOFFMANN Jessee Petra [facility] [address] [place] [address] [id number] ANNA MARIO Self - patient is the insured 1 3 Medical (General) History Medical History History ICD Code Bipolar II Disorder Surgical History Surgery Date(Month/Year) tonsillectomy and adenoidectomy egg retrieval 02/2023 Hospitalization History Reason Date(Month/Year) 10/01/2024
--- OUTSIDE RECORDS SUMMARY | 2025-04-23 16:39 | XMS_ITS | Encounter Summary ---
Author Organization [facility] Address [address] [place] [address] Care Team Providers Care Ethylbenzene Oxidizer Name Role Phone Kayce Pham MD Primary Care Provider [phone] Encounter Details Date Type Department Care Team (Late st Contact Info) Description 09/29/2024 Abstract [facility] [address] [place] [address] [place] [address] Esperanza Peter LPN Social History Tobacco [...] documented as of this encounter Care Teams Ethylbenzene Oxidizer Relationship Specialty Start Date End Date Kayce Pahm MD PCP - General Family Medicine 11/27/23 documented as of this encounter
--- OUTSIDE RECORDS SUMMARY | 2025-04-23 16:39 | XMS_ITS | Encounter Summary ---
Author Organization [facility] Address [address] [place] [address] Care Team Providers Care Adjustment Clerk Name Role Phone Kayce Pham MD Primary Care Provider [phone] Encounter Details Date Type Department Care Team (Late st Contact Info) Description 10/09/2024 Abstract [facility] [address] [place] [phone] Immanuel Hilton DO [address] [place] [address] Social History Tobacco Use Types Packs/Day Years [...] documented as of this encounter Care Teams Adjustment Clerk Relationship Specialty Start Date End Date Kayce Pham MD PCP - General Family Medicine 11/27/23 documented as of this encounter
--- OUTSIDE RECORDS SUMMARY | 2025-04-23 16:39 | XMS_ITS | Clinical Summary ---
Author Organization [facility] Address [address] [place] [address] Phone Care Team Providers Care Escalator Service Mechanic Name Role Phone Unavailable Primary Care Provider Unavailabl e Encounters Date Type Department Care Team Description 03/09/2025 Telephone [facility] [address] [facility] [address] [place] [address] Juliana Paredes RN from Last 3 Months Social History Tobacco Use Types Packs/Day Years Used Date Smoking Tobacco: Never Assessed Comments Unknown Sex and Gender Information Value Date Recorded Sex Assigned at Not on file Legal Sex Female 2:39 PM EDT Gender Identity Not on file Sexual Orientation Not on file Plan of Treatment Not on file
--- OUTSIDE RECORDS SUMMARY | 2025-04-23 16:39 | XMS_ITS | Encounter Summary ---
Author Organization [facility] Address [address] [place] [address] Care Team Providers Care Architecture Technician Name Role Phone Kayce Pham MD Primary Care Provider [phone] Encounter Details Date Type Department Care Team (Late st Contact Info) Description 10/01/2024 Abstract [facility] [address] [place] [phone] Immanuel Hilton DO [address] [facility] [place] [address] Social History Tobacco Use Types Packs/Day Years [...] documented as of this encounter Care Teams Architecture Technician Relationship Specialty Start Date End Date Kayce Pham MD PCP - General Family Medicine 11/27/23 documented as of this encounter
--- OUTSIDE RECORDS SUMMARY | 2025-04-23 16:39 | XMS_ITS | Encounter Summary ---
Author Organization [facility] Address [address] [place] [address] Care Team Providers Care Middleware Consultant Name Role Phone Kayce Pham MD Primary Care Provider [phone] Encounter Details Date Type Department Care Team (Late st Contact Info) Description 04/23/2025 Telephone [facility] [address] [place] [address] Marilyn Renteria, RL [address] [place] [address] Social History Tobacco Use Types Packs/Day Years [...] on file documented as of this encounter Miscellaneous Notes * Addendum Note - Jo-Ann Alarcon LPN - 04/23/2025 11:52 AM EDTAddended by: JO-ANN ALARCON on: 04/23/2025 11:52 AM Modules accepted: Orders * Telephone Encounter - Jo-Ann Alarcon LPN - 04/23/2025 11:51 AM EDT Per provider order CBC, patient aware. * Telephone Encounter - Jo-Ann Alarcon LPN - 04/23/2025 10:20 AM EDT Patient contacted office she is having heavier then normal bleeding after deliver. Patient states first cycle after in September. Patient states usually heavy flow but yesterday bled through period underwear and her depends she wears at night with cycles. Patient states she does feel fine buthusband thinks she looks pale. Patient was advised we will order Ultrasound to [facility] and send in Profe to pharmacy for her to have obtained to make sure no abnormalities. PVU. documented in this encounter Plan of Treatment Scheduled Orders Name Type Priority Associated Diagnoses Orde r Schedule US Pelvis w/ TV Imaging Routine Vaginal bleeding Expected: 04/23/2025, Expires: 10/21/2025 CBC and differential Lab Routine Vaginal bleeding Expected: 04/23/2025 (Approximate), Expires: 04/23/2026 documented as of this encounter Goals Goal Patient Goal Type Associated Problems Recent Progress Patient-Stated? Author Reminders Care Plan OB Reminders No Open Scheduling, Background documented as of this encounter Visit Diagnoses Diagnosis Vaginal bleeding Other specified noninflammatory disorder of vagina documented in this encounter Additional Health Concerns Active Problems Noted Date Diagnosed Date OB Reminders 05/18/2024 documented as of this encounter Care Teams Middleware Consultant Relationship Specialty Start Date End Date Kayce hPam MD PCP - General Family Medicine 11/27/23 documented as of this encounter
--- NOTE | 2025-04-23 16:42 | ED_ITS ---
HPI HPI - General Adult General Chief complaint: Vaginal Bleeding Stated complaint: VAGINAL BLEEDING Time Seen by Provider: 04/23/25 16:34 Source: patient Mode of arrival: walk-in History of Present Illness HPI narrative: 24-year-old female presented to the emergency department for vaginal bleeding. She had a about 7 months ago and has not had any bleeding since then. Yesterday she started to have heavy bleeding and it continued today. 2 days ago she had light bleeding. 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 She is breast-feeding. Dizziness or syncope and no complaints of abdominal pain. Related Data Home Medications ?Medication ?Instructions ?Recorded ?Confirmed No Known Home Medications 04/23/2503/30 Allergies Allergy/AdvReac Type Severity Reaction Status Date / Time orange Allergy Severe Anaphylaxis Verified 10/01/24 06:12 latex Allergy Intermediate Hives Verified 10/01/24 06:12 Opioid HPI Opioid Management Most Recent Opioid Data: Last Pain Scale 2 10/05/24, 07:20 Ur Phencyclidine Scrn, (NEGATIVE) Negative , 06:25 Review of Systems ROS Narrative A ten point review of systems is negative except as noted above. [facility] Medical History (Updated 04/23/25 @ 16:56 by Jonh Trejo MD) GDM (gestational diabetes mellitus), class A1 ?O24.410 - Gestational diabetes mellitus in , diet controlled (ICD- 10) PCOS (polycystic ovarian syndrome) ?E28.2 - Polycystic ovarian syndrome (ICD-10) Surgical History (Updated 10/03/24 @ 10:40 by Nahed Guo MD) Previous section ?Z98.891 - History of uterine scar from previous surgery (ICD-10) Hx of tonsillectomy ?Z90.89 - Acquired absence of other organs (ICD-10) Family History (Updated 10/01/24 @ 06:14 by Kalie Goins RN) Father Family history of myocardial infarction Social History Smoking status: Never smoker Highest level of school completed/degree received: Associate degree: academic program Little interest or pleasure in doing things: not at all Feeling down, depressed, or hopeless: not at all Exam Narrative Exam Narrative: Nurses note and vital signs reviewed and patient is not hypoxic. General:The patient appears well and in no apparent distress.Patient is resting comfortably on cart. Skin:Warm, dry, no pallor noted.There is no rash noted. Head:Normocephalic, atraumatic Eye: Normal conjunctiva, no drainage Ears, Nose, Mouth, and Throat: oral mucosa is moist. Nares patent. Cardiovascular:Regular Rate and Rhythm Respiratory:Patient is in no distress, no accessory muscle use, lungs are clear to auscultation, no wheezing, rales or rhonchi Back:non-tender GI: Nontender, nondistended Musculoskeletal: The patient has no evidence of calf tenderness, no pitting edema, symmetrical pulses noted bilaterally Neurological:A&O, normal speech Psychiatric:Cooperative Constitutional Vital Signs, click to edit/add: Last Vital Signs Temp 98.4 F 04/23/25 15:00 Pulse 101 H 04/23/25 15:00 Resp 20 04/23/25 15:00 BP 152/90 H 04/23/25 15:00 Pulse Ox 100 04/23/25 15:00 O2 Del Method Room Air 04/23/25 15:00 Course Vital Signs Vital signs: Vital Signs Temperature 98.4 F 04/23/25 15:00 Pulse Rate 101 H 04/23/25 15:00 Respiratory Rate 20 04/23/25 15:00 Blood Pressure 152/90 H 04/23/25 15:00 Pulse Oximetry 100 04/23/25 15:00 Oxygen Delivery Method Room Air 04/23/25 15:00 Temperature 98.4 F 04/23/25 15:00 Pulse Rate 101 H 04/23/25 15:00 Respiratory Rate 20 04/23/25 15:00 Blood Pressure 152/90 H 04/23/25 15:00 Pulse Oximetry 100 04/23/25 15:00 Oxygen Delivery Method Room Air 04/23/25 15:00 Medical Decision Making MDM Narrative Medical decision making narrative: Patient is not nor anemic. He is currently breast-feeding. I spoke to Dr. Preciado, on-call for Dr. Hilton. Case was discussed with her thoroughly and she does not feel that any further intervention or testing is needed. There is no need for an ultrasound and the ultrasound that-scheduled for 8:00 tonight was canceled. Follow-up in Dr. Hilton's office as needed. Treatment diagnosis and follow-up were discussed with the patient. Differential Diagnosis Differential Diagnosis: , anemia, menstrual bleeding Lab Data Lab results reviewed: Yes I reviewed the patient's lab results Labs: Lab Results 04/23/25 04/23/25 Range/Units 15:06 15:43 WBC 6.2 (4.0-11.0) 10^3/uL RBC 4.67 (4.20-5.40) 10^6/uL Hgb 12.3 (12.0-16.0) g/dL Hct 37.8 (36.0-48.0) % MCV 80.9 L (81.0-99.0) fL MCH 26.3 L (26.7-34.0) pg MCHC 32.5 (29.9-35.2) g/dL RDW 14.1 (11.0-15.0) % Plt Count 462 H (150-450) 10^3/uL MPV 9.7 (9.5-13.5) fL Neut % (Auto) 53.5 (43.0-75.0) % Lymph % (Auto) 39.4 (20.5-60.0) % [place] % (Auto) 5.3 (1.7-12.0) % Eos % (Auto) 1.5 (0.9-7.0) % Baso % (Auto) 0.3 (0.2-2.0) % Neut # (Auto) 3.3 (1.4-6.5) 10^3/uL Lymph # (Auto) 2.4 (1.2-3.8) 10^3/uL [place] # (Auto) 0.3 (0.3-0.8) 10^3/uL Eos # (Auto) 0.1 (0.0-0.7) 10^3/uL Baso # (Auto) 0.0 (0.0-0.1) 10^3/uL Abs Immat Gran (auto) 0.00 (0.00-0.03) 10^3/uL Imm/Tot Granulo (auto) 0.0 (0.0-0.5) % Sodium 142 (136-145) mmol/L Potassium 4.0 (3.5-5.1) mmol/L Chloride 106 (98-107) mmol/L Carbon Dioxide 26.8 (21.0-32.0) mmol/L Anion Gap 13.2 BUN 7.0 (7.0-18.0) mg/dL Creatinine 0.65 (0.55-1.02) mg/dL Est GFR ( Amer) >60 (>=60 mL/min/1.73m^2) Est GFR (Non-Af Amer) >60 (>=60 mL/min/1.73m^2) BUN/Creatinine Ratio 10.8 Glucose 101 (74-106) mg/dL Calcium 9.6 (8.5-10.1) mg/dL Urine Color Lt. yellow (YELLOW) Urine Clarity Clear (CLEAR) Urine pH 7.0 (5.0-9.0) Ur Specific [place] 1.020 (1.005-1.025) Urine Protein Negative (NEG/TRACE) mg/dL Urine Glucose (UA) Negative (NEGATIVE) mg/dL Urine Ketones Negative (NEGATIVE) mg/dL Urine Occult Blood Large A (NEGATIVE) Urine Nitrite Negative (NEGATIVE) Urine Bilirubin Negative (NEGATIVE) Urine Urobilinogen 0.2 (0.2-1.0) EU/dL Ur Leukocyte Esterase Negative (NEGATIVE) Urine RBC 75-100 A (0-2) #/HPF Urine WBC 0-2 A (NONE SEEN) #/HPF Ur Squamous Epith Cells Few A (NONE/RARE) #/LPF Urine Crystals None seen (None Seen) #/HPF Urine Bacteria Trace A (NONE SEEN) #/HPF Urine Casts None seen (NONE SEEN) #/LPF Urine Mucus None seen (NONE SEEN) Ur Culture Indicated? No Urine HCG, Qual Negative (NEGATIVE) Discharge Plan Discharge Chief Complaint: Vaginal Bleeding Clinical Impression: Vaginal bleeding Patient Disposition: Home, Self-Care Time of Disposition Decision: 16:56 Condition: Good Mode of Transportation: Private Vehicle Prescriptions / Home Meds: No Action No Known Home Medications Print Language: Guamanian Instructions: Abnormal (Dysfunctional) Uterine Bleeding (ED) Referrals: Kayce Pham MD [Primary Care Provider, Family Practice] - 1 week
== END 2025-04-23 16:58 | disposition home or self-care (01) ==
PROVIDERS: Emergency Provider Emergency Medicine; PCP Family Medicine
DX: N93.9 Abnormal uterine and vaginal bleeding, unspecified (principal)
CPT/HCPCS: 36415; 80048; 81001; 84703; 85025; 99285